=== PATIENT | male | born 1955 | race American Indian/Alaskan Native ===

== ENCOUNTER 2022-03-08 11:47 | Inpatient (IN) | payer MEDICARE ==
[2022-03-08] MEDS ORDERED: SODIUM CHLORIDE 0.9% 1000 ML 1,000 ML IV ONE (12:09)
--- NOTE | 2022-03-08 12:56 | XRay Report ---
CHEST 1 VIEW 03/08/2022 11:22 AM INDICATION / CLINICAL INFORMATION: Altered Mental Status. COMPARISON: None available. FINDINGS: SUPPORT DEVICES: None. HEART / MEDIASTINUM: There is mild to moderate cardiomegaly with left ventricular predominance. LUNGS / PLEURA: No significant pulmonary or pleural abnormality. No pneumothorax. ADDITIONAL FINDINGS: No significant additional findings. IMPRESSION: 1. Cardiomegaly. Lungs clear. Signer Name: Sixto Reveles Jr, MD Signed: 03/08/2022 12:52 PM Workstation Name: [id number]
[2022-03-08] MEDS ORDERED: cefTRIAXone/NS 1 GM/50 ML 1 GM/50 ML BAG IV ONE (13:23)
[2022-03-08 13:25] LABS: Basophils # (Auto) 0.1 K/mm3 (0.0-0.1); Basophils % (Auto) 0.9 % (0.0-1.8); Eosinophils # (Auto) 0.2 K/mm3 (0.0-0.4); Eosinophils % (Auto) 1.9 % (0.0-4.3); Hematocrit 34.5 % (35.5-45.6); Hemoglobin 10.7 gm/dl (11.8-15.2); Lymphocytes # (Auto) 1.1 K/mm3 (1.2-5.4); Mean Corpuscular HGB Conc 31 % (32-34); Mean Corpuscular Volume 82 fl (84-94); Monocytes # (Auto) 1.4 K/mm3 (0.0-0.8); Monocytes % (Auto) 11.2 % (0.0-7.3); Platelet Count 434 K/mm3 (140-440); Red Blood Count 4.23 M/mm3 (3.65-5.03); Red Cell Distribution Width 16.5 % (13.2-15.2)
[2022-03-08 13:35] LABS: Calcium 10.6 mg/dL (8.4-10.2)
[2022-03-08 13:36] LABS: INR 1.09 (0.87-1.13)
--- NOTE | 2022-03-08 13:47 | Cat Scan Report ---
CT HEAD WITHOUT CONTRAST INDICATION / CLINICAL INFORMATION: Altered Mental Status. TECHNIQUE: Axial imaging performed from the skull apex through the skull base without the use of cont rast. Sagittal and coronal reformatted images. All CT scans at this location are performed using CT dose reduction for ALARA by means of automated exposure control. COMPARISON: None available. FINDINGS: CEREBRAL PARENCHYMA: Mild volume loss and moderate chronic microvascular ischemic changes in the whit e matter are identified. No chronic infarct. No acute parenchymal abnormality is detected. HEMORRHAGE: None. EXTRA-AXIAL SPACES: Normal in size and morphology for the patient's age. VENTRICULAR SYSTEM: Normal in size and morphology for the patient's age. MIDLINE SHIFT OR HERNIATION: None. CEREBELLUM / BRAINSTEM: No significant abnormality. CALVARIUM: No significant abnormality. ORBITS: Normal as visualized. PARANASAL SINUSES / MASTOID AIR CELLS: There appears to be a large osteoma in the right maxillary sin us measuring up to 2.3 x 2.1 cm. The remaining sinuses are clear. SOFT TISSUES of HEAD: No significant abnormality. ADDITIONAL FINDINGS: None. IMPRESSION: No acute intracranial abnormality. Volume loss and chronic white matter changes. 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 This is likely an incidental finding. Signer Name: Sixto Reveles Jr, MD Signed: 03/08/2022 1:43 PM Workstation Name: [id number]
[2022-03-08 14:24] LABS: C-Reactive Protein 16.2 mg/dL (0.00-1.30)
[2022-03-08 14:40] LABS: Chol/HDL Ratio 3.88 %
[2022-03-08] MEDS ORDERED: niCARdipine DRIP 40 MG/200 ML BAG IV ONE (15:28)
[2022-03-08] MEDS ORDERED: dilTIAZem 25 MG/5 ML INJ IV ONE (15:28)
[2022-03-08 16:19] LABS: Amphetamine Screen,Urine Negative; Benzodiazepines Screen,Urine Negative; Cocaine Screen,Urine Negative; Methadone Screen,Urine Negative; Opiate Screen,Urine Negative
[2022-03-08 16:32] LABS: Cannabinoid Screen,Urine Positive
[2022-03-08 16:42] LABS: Bilirubin,Urine Negative (Negative); Color,Urine Yellow (Yellow)
[2022-03-08 16:43] LABS: Blood,Urine 1+ (Negative)
[2022-03-08 16:48] LABS: Bacteria,Urine 1+ /HPF (Negative); Hyaline Casts,Urine 2 /LPF; Mucus,Urine 1+ /HPF
--- NOTE | 2022-03-08 18:03 | Emergency Department Report ---
ED General Adult HPI - General Chief complaint: Altered Mental Status Stated complaint: ALTERED MENTAL STATUS PUI?: No Time Seen by Provider: 03/08/22 12:09 Source: EMS Mode of arrival: Stretcher Limitations: No Limitations - History of Present Illness Initial comments: AMS [id number] per caregiver. family reports incontinence of bowels, GCS 12. HR 150 , ps is coming from home with his caregiver , pt had fever and incontinence , no recent head injury , -: Gradual Consistency: intermittent Improves with: none Associated Symptoms: fever/chills - Related Data Previous Rx's Medication Instructions Recorded Last Taken Type Ibuprofen [Motrin] 400 mg PO Q8H PRN #30 tablet 08/28/15 Unknown Rx Oxycodone HCl/Acetaminophen 1 each PO Q6HR PRN #20 tablet 08/28/15 Unknown Rx [Percocet 10/325 mg] Promethazine [Phenergan TAB] 25 mg PO Q6HR PRN #20 tab 08/28/15 Unknown Rx Tamsulosin [Flomax] 0.4 mg PO QDAY #7 cap 08/28/15 Unknown Rx amLODIPine [Norvasc] 10 mg PO DAILY #30 tab 08/28/15 Unknown Rx Allergies Allergy/AdvReac Type Severity Reaction Status Date / Time No Known Allergies Allergy Verified 08/27/15 22:29 ED Review of Systems ROS: Stated complaint: ALTERED MENTAL STATUS Other details as noted in HPI Comment: Unobtainable due to pts medical conditions ED Past Medical Hx - Past Medical History Hx Hypertension: Yes - Social History Smoking Status: Current Every Day Smoker Substance Use Type: None - Medications Home Medications: Home Medications Medication Instructions Recorded Confirmed Last Taken Type Ibuprofen [Motrin] 400 mg PO Q8H PRN #30 tablet 08/28/15 Unknown Rx Oxycodone HCl/Acetaminophen 1 each PO Q6HR PRN #20 tablet 08/28/15 Unknown Rx [Percocet 10/325 mg] Promethazine [Phenergan TAB] 25 mg PO Q6HR PRN #20 tab 08/28/15 Unknown Rx Tamsulosin [Flomax] 0.4 mg PO QDAY #7 cap 08/28/15 Unknown Rx amLODIPine [Norvasc] 10 mg PO DAILY #30 tab 08/28/15 Unknown Rx ED Physical Exam - General Limitations: No Limitations General appearance: alert, other (weak , confused ) - Head Head exam: Present: atraumatic, normocephalic - Eye Eye exam: Present: normal appearance - ENT ENT exam: Present: mucous membranes moist - Neck Neck exam: Present: normal inspection - Respiratory Respiratory exam: Present: rales. Absent: respiratory distress - Cardiovascular Cardiovascular Exam: Present: tachycardia, irregular rhythm. Absent: systolic murmur, diastolic murmur, rubs, gallop - GI/Abdominal GI/Abdominal exam: Present: soft, normal bowel sounds - Rectal Rectal exam: Present: deferred - Extremities Exam Extremities exam: Present: normal inspection - Back Exam Back exam: Present: normal inspection - Skin Skin exam: Present: intact, normal color. Absent: rash ED Course Vital Signs 03/08/22 03/08/22 03/08/22 12:02 13:49 14:00 Temperature 99.4 F Pulse Rate 150 H 118 H 127 H Respiratory 30 H 15 28 H Rate Blood Pressure Blood Pressure 140/70 [Left] O2 Sat by Pulse 97 98 97 Oximetry 03/08/22 03/08/22 03/08/22 14:30 15:00 15:30 Temperature Pulse Rate 138 H 130 H 127 H Respiratory 16 23 48 H Rate Blood Pressure Blood Pressure [Left] O2 Sat by Pulse 95 97 98 Oximetry 03/08/22 03/08/22 03/08/22 15:44 16:00 16:16 Temperature Pulse Rate 129 H 150 H Respiratory 42 H Rate Blood Pressure 170/98 Blood Pressure [Left] O2 Sat by Pulse 98 Oximetry 03/08/22 03/08/22 03/08/22 16:30 17:00 17:30 Temperature Pulse Rate 138 H 135 H 140 H Respiratory 28 H 19 21 Rate Blood Pressure 147/78 135/75 126/64 Blood Pressure [Left] O2 Sat by Pulse Oximetry ED Medical Decision Making - Lab Data Result diagrams: 03/08/22 12:29 03/08/22 12:29 Critical care attestation.: If time is entered above; I have spent that time in minutes in the direct care of this critically ill patient, excluding procedure time. ED Disposition Clinical Impression: Altered mental status, CKD (chronic kidney disease), Atrial fibrillation with RVR, Weakness, Elevated troponin Disposition: 09 ADMITTED INPATIENT Is pt being admited?: Yes Does the pt Need Aspirin: No Condition: Stable Referrals: KING POLLACK MD [Primary Care Provider] - 3-5 Days
--- NOTE | 2022-03-08 18:11 | History and Physical Report ---
History of Present Illness Chief complaint: He is not acting like himself History of present illness: 67 YO Male with Vascular Dementia, Cerebral Atherosclerosis, BPH, HTN, Nicotine Dependence presents to ED for evaluation. Patient is confused and lethargic at the time my evaluation is unable to provide history. Patient history provided by caregiver was at bedside during exam and interview. As per caregiver the p atient experienced increased weakness and decreased responsiveness over the past 1 week. EMS was notified and upon arrival the patient was found to be in distress and subsequent transported to [facility] for further care and evaluation of the aforementioned symptoms. The patient seen and evaluated in the emergency department all lab and imaging studies reviewed. Patient found to have lab findings consistent with NSTEMI, as well as metabolic encephalopathy, acute kidney injury, new onset atrial fibrillation with rapid ventricular response, as well as systemic inflammatory response syndrome. Patient mated to [facility] and initiated on therapeutic anticoagulation. Patient treated with empiric IV antib iotic therapy. Patient initiated on Cardizem drip with controlled heart rate. No further history is obtainable. No reports of fever, chills, chest pain, palpitation or productive cough, skin rash, recent contact, known exposure to COVID-19. No prior admission for review. No medication listed at time of admission for reconciliation. Advanced care planning conducted in ED. Past History Past Medical History: hypertension, other (See HPI) Social history: smoking Family history: hypertension Medications and Allergies Allergies Allergy/AdvReac Type Severity Reaction Status Date / Time No Known Allergies Allergy Verified 08/27/15 22:29 Home Medications Medication Instructions Recorded Confirmed Last Taken Type Ibuprofen [Motrin] 400 mg PO Q8H PRN #30 tablet 08/28/15 Unknown Rx Oxycodone HCl/Acetaminophen 1 each PO Q6HR PRN #20 tablet 08/28/15 Unknown Rx [Percocet 10/325 mg] Promethazine [Phenergan TAB] 25 mg PO Q6HR PRN #20 tab 08/28/15 Unknown Rx Tamsulosin [Flomax] 0.4 mg PO QDAY #7 cap 08/28/15 Unknown Rx amLODIPine [Norvasc] 10 mg PO DAILY #30 tab 08/28/15 Unknown Rx Active Meds: Active Medications Nicardipine/Sodium Chloride (Cardene Drip 40 Mg/200 Ml) 40 mg in 200 mls @ 25 mls/hr IV ONCE ONE; Protocol Stop: 03/08/22 23:27 Last Titration: 03/08/22 16:12 Dose: 7.5 mg/hr, 37.5 mls/hr Review of Systems ROS unobtainable: due to mental status Exam - Constitutional Vitals: Temp Pulse Resp BP Pulse Ox 99.4 F 140 H 21 126/64 98 03/08/22 12:02 03/08/22 17:30 03/08/22 17:30 03/08/22 17:30 03/08/22 16:16 General appearance: Present: mild distress - EENT Eyes: Present: PERRL ENT: hearing intact, clear oral mucosa - Neck Neck: Present: supple, normal ROM - Respiratory Respiratory effort: normal Respiratory: bilateral: CTA - Cardiovascular Rhythm: irregularly irregular Heart Sounds: Present: S1 & S2. Absent: rub, click - Extremities Extremities: pulses symmetrical, No edema Peripheral Pulses: within normal limits - Abdominal General gastrointestinal: Present: soft, non-tender, non-distended, normal bowel sounds Male genitourinary: Present: normal - Integumentary Integumentary: Present: clear, warm, dry - Musculoskeletal Musculoskeletal: generalized weakness - Psychiatric Psychiatric: no appropriate mood/affect, no intact judgment & insight, no memory intact - Neurologic Neurologic: CNII-XII intact, moves all extremities, no gait normal HEART Score - HEART Score Troponin: Troponin T 0.149 ng/mL (0.00-0.029) H* 03/08/22 12:29 Results - Labs CBC & Chem 7: 03/08/22 12:29 03/08/22 12:29 Labs: Abnormal lab results 03/08/22 03/08/22 03/08/22 Range/Units 12:29 12:29 12:29 WBC 12.8 H (4.5-11.0) K/mm3 Hgb 10.7 L (11.8-15.2) gm/dl Hct 34.5 L (35.5-45.6) % MCV 82 L (84-94) fl MCH 25 L (28-32) pg MCHC 31 L (32-34) % RDW 16.5 H (13.2-15.2) % Lymph % (Auto) 9.0 L (13.4-35.0) % [place] % (Auto) 11.2 H (0.0-7.3) % Lymph # (Auto) 1.1 L (1.2-5.4) K/mm3 [place] # (Auto) 1.4 H (0.0-0.8) K/mm3 Seg Neutrophils % 77.0 H (40.0-70.0) % Seg Neutrophils # 9.8 H (1.8-7.7) K/mm3 PT 15.7 H (12.2-14.9) Sec. BUN 37 H (9-20) mg/dL Creatinine 1.9 H (0.8-1.3) mg/dL Glucose 108 H (75-100) mg/dL Calcium 10.6 H (8.4-10.2) mg/dL Ammonia (25-60) umol/L Total Creatine Kinase 53 L (55-170) units/L Troponin T 0.149 H* (0.00-0.029) ng/mL C-Reactive Protein 16.20 H (0.00-1.30) mg/dL Albumin 3.0 L (3.9-5) g/dL HDL Cholesterol 35 L (40-59) mg/dL Salicylates (2.8-20.0) mg/dL Acetaminophen (10.0-30.0) ug/mL 03/08/22 03/08/22 03/08/22 Range/Units 12:29 12:29 12:29 WBC (4.5-11.0) K/mm3 Hgb (11.8-15.2) gm/dl Hct (35.5-45.6) % MCV (84-94) fl MCH (28-32) pg MCHC (32-34) % RDW (13.2-15.2) % Lymph % (Auto) (13.4-35.0) % [place] % (Auto) (0.0-7.3) % Lymph # (Auto) (1.2-5.4) K/mm3 [place] # (Auto) (0.0-0.8) K/mm3 Seg Neutrophils % (40.0-70.0) % Seg Neutrophils # (1.8-7.7) K/mm3 PT (12.2-14.9) Sec. BUN (9-20) mg/dL Creatinine (0.8-1.3) mg/dL Glucose (75-100) mg/dL Calcium (8.4-10.2) mg/dL Ammonia 14.0 L (25-60) umol/L Total Creatine Kinase (55-170) units/L Troponin T (0.00-0.029) ng/mL C-Reactive Protein (0.00-1.30) mg/dL Albumin (3.9-5) g/dL HDL Cholesterol (40-59) mg/dL Salicylates < 0.3 L (2.8-20.0) mg/dL Acetaminophen 5.0 L (10.0-30.0) ug/mL Assessment and Plan - Patient Problems (1) NSTEMI (non-ST elevated myocardial infarction) Current Visit: Yes Status: Acute Plan to address problem: Cardiology team consulted, therapeutic anticoagulation, morphine, submental oxygen, nitro, aspirin, echocardiogram ordered and pending at time of admission. (2) Atrial fibrillation with RVR Current Visit: Yes Status: Acute Plan to address problem: Cardizem drip, titrate to maintain heart rate less than 100 bpm, supportive care, therapeutic anticoagulation, supportive care, cardiology team consulted. (3) Acute kidney injury (MARIE) with acute tubular necrosis (ATN) Current Visit: Yes Status: Acute Plan to address problem: Nephrology team consulted, IV fluid resuscitation therapy, BMP, repeat BMP in a.m., monitor fluid balance. (4) SIRS (systemic inflammatory response syndrome) Current Visit: Yes Status: Acute Plan to address problem: Empiric IV antibiotic therapy x1 dose, repeat CBC in AM. (5) Vascular dementia Current Visit: Yes Status: Acute Qualifiers: Dementia behavioral disturbance: without behavioral disturbance Qualified Code(s): F01.50 - Vascular dementia without behavioral disturbance Plan to address problem: Verbal prompting, verbal redirection, benzodiazepine therapy as clinical indicated. (6) Cerebral atherosclerosis Current Visit: Yes Status: Acute Plan to address problem: Risk factor reduction, antiplatelet therapy as clinically indicated. (7) DVT prophylaxis Current Visit: Yes Status: Acute Plan to address problem: SCDs bilateral lower extremities while in bed, (8) Advance care planning Current Visit: Yes Status: Acute Plan to address problem: Disease education done, care plan discussed, diagnosis discussed, prognosis discussed, patient is full code. Patient caregiver acknowledged understanding and agreed with care plan, +30 minutes. (9) Preventative health care Current Visit: Yes Status: Acute Plan to address problem: Patient and caregiver informed of patient prognosis. Informed of risk factor reduction, and home safety measures. +30 minutes.
[2022-03-08] MEDS ORDERED: METOPROLOL TARTRATE 5 MG/5 ML INJ IV ONE (18:34)
[2022-03-08] MEDS ORDERED: ALBUTEROL 2.5 MG/3 ML NEBU IH PRN (20:07)
[2022-03-08] MEDS ORDERED: ACETAMINOPHEN 325 MG TAB PO PRN (20:11)
[2022-03-08] MEDS ORDERED: ENOXAPARIN 100 MG/1 ML INJ SUB-Q SCH (21:00)
[2022-03-09 02:55] LABS: Hemoglobin 10.4 gm/dl (11.8-15.2); Mean Corpuscular HGB Conc 34 % (32-34); Mean Corpuscular Volume 80 fl (84-94); Platelet Count 383 K/mm3 (140-440); Red Blood Count 3.85 M/mm3 (3.65-5.03); Red Cell Distribution Width 16.7 % (13.2-15.2)
[2022-03-09 02:58] LABS: Albumin 2.5 g/dL (3.9-5); Calcium 9.9 mg/dL (8.4-10.2)
[2022-03-09] MEDS: ENOXAPARIN 80 MG/0.8 ML INJ SUB-Q SCH ×3 (04:20→21:06)
[2022-03-09] MEDS: METOPROLOL TARTRATE 5 MG/5 ML INJ IV SCH ×3 (04:20→11:39)
[2022-03-09 05:09] LABS: Basophils % (Manual) 0 % (0.0-1.8); Platelet Estimate Consistent w Auto; RBC Morphology Normal; Total Cells Counted 100
--- NOTE | 2022-03-09 07:02 | Consultation ---
History of Present Illness - Reason for Consult Consult date: 03/09/22 acute renal failure, chronic renal failure - History of Present Illness The patient is a 67 YO male with history of HTN, BPH, Dementia, Cerebral Atherosclerosis, Nicotine Dependence and CKD who presented to [facility] ED 03/08/22 wi th increased weakness and decreased responsiveness of 1 week duration. Patient is confused at the time my evaluation is unable to provide history and there was no family member at the bedside. In the ED he was found to have Atrial fibrillation with rapid ventricular response. Labs notable for Creat 1.9, BUN 37, Hb 10.7, Trop 0.149. CXR showed Cardiomegaly. CT head negative for any acute findings. Patient admitted with NSTEMI, metabolic encephalopathy, MARIE, SIRS and A.fib with RVR. Nephrology consulted for further evaluation and treatment of MARIE. Past History Past Medical History: hypertension, other (See HPI) Social history: smoking Family history: hypertension Medications and Allergies Allergies Allergy/AdvReac Type Severity Reaction Status Date / Time No Known Allergies Allergy Verified 08/27/15 22:29 Home Medications Medication Instructions Recorded Confirmed Last Taken Type Ibuprofen [Motrin] 400 mg PO Q8H PRN #30 tablet 08/28/15 Unknown Rx Oxycodone HCl/Acetaminophen 1 each PO Q6HR PRN #20 tablet 08/28/15 Unknown Rx [Percocet 10/325 mg] Promethazine [Phenergan TAB] 25 mg PO Q6HR PRN #20 tab 08/28/15 Unknown Rx Tamsulosin [Flomax] 0.4 mg PO QDAY #7 cap 08/28/15 Unknown Rx amLODIPine [Norvasc] 10 mg PO DAILY #30 tab 08/28/15 Unknown Rx Active Meds: Active Medications Acetaminophen (Acetaminophen 325 Mg Tab) 650 mg PO Q6H PRN PRN Reason: Pain MILD(1-3)/Fever >100.5/[place] Albuterol (Albuterol 2.5 Mg/3 Ml Nebu) 2.5 mg IH Q3HRT PRN PRN Reason: Shortness Of Breath Enoxaparin Sodium (Enoxaparin 80 Mg/0.8 Ml Inj) 80 mg 1 mg/kg (90 mg) SUB-Q Q1 2HR FRANCESCA; Protocol Last Admin: 03/09/22 04:20 Dose: 80 mg Metoprolol Tartrate (Metoprolol Tartrate 5 Mg/5 Ml Inj) 2.5 mg IV Q6HR [facility] Last Admin: 03/09/22 07:00 Dose: Not Given Morphine Sulfate (Morphine 4 Mg/1 Ml Inj) 2 mg IV Q8H PRN PRN Reason: Pain , Severe (7-10) Oxycodone/Acetaminophen (Oxycodone /Acetaminophen 5-325mg Tab) 1 tab PO Q6H PRN PRN Reason: Pain, Moderate (4-6) Sodium Chloride (Sodium Chloride 0.9% 10 Ml Flush Syringe) 10 ml IV BID [facility] Last Admin: 03/09/22 04:20 Dose: 10 ml Sodium Chloride (Sodium Chloride 0.9% 10 Ml Flush Syringe) 10 ml IV PRN PRN PRN Reason: LINE FLUSH Tramadol HCl (Tramadol 50 Mg Tab) 50 mg PO Q6H PRN PRN Reason: Pain, Moderate (4-6) Review of Systems ROS unobtainable: due to mental status Exam - Vital Signs Vital signs: Vital Signs Temp Pulse Resp BP Pulse Ox 99.4 F 150 H 30 H 140/70 97 03/08/22 12:02 03/08/22 12:02 03/08/22 12:02 03/08/22 12:02 03/08/22 12:02 Results - Lab Results 03/10/22 04:31 03/10/22 04:31 Most recent lab results Calcium 9.9 mg/dL (8.4-10.2) 03/09/22 02:13 Urine Creatinine 175.0 mg/dL (0.1-20.0) H 03/09/22 05:40 Urine Sodium 48 mmol/L 03/09/22 05:40 Assessment and Plan 1. Acute kidney injury: Vasomotor MARIE superimposed on CKD in the setting of A.Fib with RVR. Urine studies. Monitor renal function. Creatinine level is better today. Avoid nephrotoxic agents. Meds dosage based on GFR. 2. FEN: Replete lytes as needed. Monitor lytes and volume status. 3. A.fib with RVR: New diagnosis. Followed by Cards. Monitor. 4. Acute metabolic encephalopathy, POA: Monitor. 5. NSTEMI (non-ST elevated myocardial infarction): EF: 25-30%. Followed by Cards. 6. Microcytic Anemia, POA: Trend. Subjective: Patient was seen and examined at the bedside. Examination: General appearance: well-developed, appears stated age, no distress HEENT: atraumatic, no icterus Neck: trachea midline Respiratory: ctab Heart: S1S2, irregular, tachycardia, no murmur Abdomen: soft, bowel sounds heard, NT Integumentary: no obvious rash Neurologic: somnolent, able to move extremities, confused Ext: no edema
[2022-03-09] MEDS: FAMOTIDINE 20 MG/2 ML INJ IV SCH (10:47)
--- NOTE | 2022-03-09 12:13 | Consultation ---
History of Present Illness Consult date: 03/09/22 Requesting physician: ASA JAIMES Consult reason: atrial fibrillation History of present illness: Patient is a 67-year-old male with a reported past medical history of vascular dementia, cerebral atherosclerosis, BPH, hypertension, nicotine dependence who presented to the ED yesterday for complaint of AMS x2. History is taken from chart due to patient's mental status. Per documentation for the past 2 weeks patient has increased weakness and decreased responsiveness. EMS was notified and patient was transported to the ED for further evaluation. In the ED patient was found to be have an MARIE, elevated troponins, and leukocytosis. Patient was thought to be in A. fib with RVR and given Cardizem drip with heart rate controlled. At time of interview patient remains with altered mental status how ever denies any complaints.Patient is previously unknown to our practice. Cardiology was consulted for A. fib with RVR Past History Past Medical History: hypertension, other (See HPI) Social history: smoking Family history: hypertension Medications and Allergies Allergies Allergy/AdvReac Type Severity Reaction Status Date / Time No Known Allergies Allergy Verified 08/27/15 22:29 Home Medications Medication Instructions Recorded Confirmed Last Taken Type Ibuprofen [Motrin] 400 mg PO Q8H PRN #30 tablet 08/28/15 Unknown Rx Oxycodone HCl/Acetaminophen 1 each PO Q6HR PRN #20 tablet 08/28/15 Unknown Rx [Percocet 10/325 mg] Promethazine [Phenergan TAB] 25 mg PO Q6HR PRN #20 tab 08/28/15 Unknown Rx Tamsulosin [Flomax] 0.4 mg PO QDAY #7 cap 08/28/15 Unknown Rx amLODIPine [Norvasc] 10 mg PO DAILY #30 tab 08/28/15 Unknown Rx Active Meds: Active Medications Acetaminophen (Acetaminophen 325 Mg Tab) 650 mg PO Q6H PRN PRN Reason: Pain MILD(1-3)/Fever >100.5/[place] Albuterol (Albuterol 2.5 Mg/3 Ml Nebu) 2.5 mg IH Q3HRT PRN PRN Reason: Shortness Of Breath Enoxaparin Sodium (Enoxaparin 80 Mg/0.8 Ml Inj) 80 mg 1 mg/kg (90 mg) SUB-Q Q12HR FRANCESCA; Protocol Last Admin: 03/09/22 10:47 Dose: 80 mg Famotidine (Famotidine 20 Mg/2 Ml Inj) 20 mg IV QDAY [facility] Last Admin: 03/09/22 10:47 Dose: 20 mg Metoprolol Tartrate (Metoprolol Tartrate 5 Mg/5 Ml Inj) 2.5 mg IV Q6HR [facility] Last Admin: 03/09/22 11:39 Dose: 2.5 mg Morphine Sulfate (Morphine 4 Mg/1 Ml Inj) 2 mg IV Q8H PRN PRN Reason: Pain , Severe (7-10) Oxycodone/Acetaminophen (Oxycodone /Acetaminophen 5-325mg Tab) 1 tab PO Q6H PRN PRN Reason: Pain, Moderate (4-6) Sodium Chloride (Sodium Chloride 0.9% 10 Ml Flush Syringe) 10 ml IV BID [facility] Last Admin: 03/09/22 10:47 Dose: 10 ml Sodium Chloride (Sodium Chloride 0.9% 10 Ml Flush Syringe) 10 ml IV PRN PRN PRN Reason: LINE FLUSH Tramadol HCl (Tramadol 50 Mg Tab) 50 mg PO Q6H PRN PRN Reason: Pain, Moderate (4-6) Review of Systems ROS unobtainable: due to mental status Physical Examination Vital Signs Temp Pulse Resp BP Pulse Ox 99.4 F 150 H 30 H 140/70 97 03/08/22 12:02 03/08/22 12:02 03/08/22 12:02 03/08/22 12:02 03/08/22 12:02 General appearance: no acute distress HEENT: Positive: Mucus Membranes Dry Neck: Positive: trachea midline Cardiac: Positive: irregularly irregular, Tachycardia Lungs: Positive: Normal Breath Sounds Neuro: Positive: Grossly Intact Abdomen: Positive: Soft Skin: Negative: Rash, Suspicious Lesions Extremities: Present: upper extr. pulses. Absent: edema Results 03/09/22 02:13 03/09/22 02:13 Cardiac Enzymes 03/08/22 03/09/22 Range/Units 12:29 02:13 AST 26 25 (5-40) units/L Coagulation 03/08/22 Range/Units 12:29 PT 15.7 H (12.2-14.9) Sec. INR 1.09 (0.87-1.13) Lipids 03/08/22 Range/Units 12:29 Triglycerides 105 (2-149) mg/dL Cholesterol 136 (50-199) mg/dL HDL Cholesterol 35 L (40-59) mg/dL Cholesterol/HDL Ratio 3.88 % CBC 03/08/22 03/09/22 Range/Units 12:29 02:13 WBC 12.8 H 10.6 (4.5-11.0) K/mm3 RBC 4.23 3.85 (3.65-5.03) M/mm3 Hgb 10.7 L 10.4 L (11.8-15.2) gm/dl Hct 34.5 L 31.0 L (35.5-45.6) % Plt Count 434 383 (140-440) K/mm3 Lymph # (Auto) 1.1 L (1.2-5.4) K/mm3 Tom[place]kins # (Auto) 1.4 H (0.0-0.8) K/mm3 Eos # (Auto) 0.2 (0.0-0.4) K/mm3 Baso # (Auto) 0.1 (0.0-0.1) K/mm3 Comprehensive Metabolic Panel 03/08/22 03/09/22 Range/Units 12:29 02:13 Sodium 142 139 (137-145) mmol/L Potassium 4.4 4.3 (3.6-5.0) mmol/L Chloride 106.1 103.9 (98-107) mmol/L Carbon Dioxide 22 21 L (22-30) mmol/L BUN 37 H 33 H (9-20) mg/dL Creatinine 1.9 H 1.6 H (0.8-1.3) mg/dL Glucose 108 H 89 (75-100) mg/dL Calcium 10.6 H 9.9 (8.4-10.2) mg/dL AST 26 25 (5-40) units/L ALT 11 11 (7-56) units/L Alkaline Phosphatase 91 83 (35-129) units/L Total Protein 7.3 7.0 (6.3-8.2) g/dL Albumin 3.0 L 2.5 L (3.9-5) g/dL - Imaging and Cardiology Echo: pending EKG interpretations - Telemetry EKG Rhythm: Sinus Tachycardia - EKG Supraventricular dysrhythmia: multifocal atrial tachyca Ventricular dysrhythmias: ventricular premature com Assessment and Plan Patient is a 67-year-old male with a reported past medical history of vascular dementia, cerebral atherosclerosis, BPH, hypertension, nicotine dependence who presented to the ED yesterday for complaint of AMS x2. Altered mental status NSTEMI suspect type II MARIE Leukocytosis A. fib?/MAT Hypertension Vascular dementia Plan: EKG shows MAT rate 127 with PVCs. No acute ischemic changes. Patient denies complaint of chest pain and does not appear to be in any distress or discomfort Troponin is noted to be elevated and downtrending. Suspect NSTEMI type II in setting of MARIE Telemetry reviewed patient does not appear to be in A. fib. suspect patient is in MAT however, it is unclear if patient may have had previous episode of A. fib. Continue to monitor on telemetry to see if patient has any episodes of A. fib Agree with anticoagulation with Lovenox at this time Echo pending Will stop IV meotprolol and initiate Metoprolol 25mg PO BID for rate control Patient seen in conjunction with Dr. Norton who agrees with this plan of care - Patient Problems (1) Multifocal atrial tachycardia Current Visit: Yes Status: Acute (2) Acute kidney injury (MARIE) with acute tubular necrosis (ATN) Current Visit: Yes Status: Acute (3) Altered mental status Current Visit: Yes Status: Acute (4) Atrial fibrillation with RVR Current Visit: Yes Status: Acute (5) CKD (chronic kidney disease) Current Visit: Yes Status: Acute (6) Cerebral atherosclerosis Current Visit: Yes Status: Acute (7) Elevated troponin Current Visit: Yes Status: Acute (8) NSTEMI (non-ST elevated myocardial infarction) Current Visit: Yes Status: Acute (9) SIRS (systemic inflammatory response syndrome) Current Visit: Yes Status: Acute (10) Vascular dementia Current Visit: Yes Status: Acute Qualifiers: Dementia behavioral disturbance: without behavioral disturbance Qualified Code(s): F01.50 - Vascular dementia without behavioral disturbance (11) Weakness Current Visit: Yes Status: Acute
--- NOTE | 2022-03-09 12:15 | Progress Note ---
<ANTONIO PENNY - Last Filed: 03/09/22 19:39> Assessment and Plan Assessment and plan: This is a 67-year-old male with known past medical history of vascular dementia, cerebral atherosclerosis, BPH, HTN, nicotine dependence, severe arthritis, and debility admitted for NSTEMI, AFib with RVR, and MARIE Hospital Course to Date: 03/09: Stable on RA, denied ay pain nor any discomfort at this time. SR with PACs noted on the monitor, VSS. Renal function mild improvement in renal function this am. Continue schedule BB for rate control and therapeutic Lovenox subQ. 2D echo pending and Cardiology consulted. Nephrology is also following. Assessment and Plan #NSTEMI (non-ST elevated myocardial infarction) #New Onset Atrial Fibrillation with RVR #Hypertension - Presented with AMS, found in AFib with RVR in the ED with elevated troponin - No report of previous Afib history, most likely new onset - Troponin downtrending - Per patient's brother patient sees a PCP in [place], however patient has been refusing to go to the doctor - s/p Chey gtt - Patient is SR with PACs on the monitor. Patient denied any chest pain, VSS - Cardiology consulted - Continue BB and therapeutic Lovenox - 2D Echo pending - Continue blood pressure monitor per protocol - Maintain SBP less than 160 #Acute kidney injury(MARIE) - Baseline renal function is unknown, most likely prerenal secondary to above - Renal function improved this am - Urine lytes pending - Neprology consulted, appreciated recommendations - Strict intake and output - Avoid nephrotoxic medications; Renally dose medications - Monitor and replace electrolytes as needed #SIRS (Systemic Inflammatory Response Syndrome) - Presented with leukocytosis and tachycardia, but afebrile - X1 dose of Empiric IV antibiotic given in the ED - UA unremakarble, Blood cultures with NGTD - Patient remains afebrile, leukocytosis improved - Will continue to monitor for now - F/u on cultures #Acute Metabolic Encephalopathy #Vascular Dementia - Presented with increased weakness and decreased responsiveness over the past 1 week - Probably secondary to above - Mentation improved this am, still with periods of confusion - Verbal prompting, verbal redirection - Avoid benzodiazepine to reduce the possibility of delirium - Maintenance of sleep-wake cycle #Severe Arthritis #Debility - Supportive measures - PRN analgesia for pain control - PT/OT consulted #Nicotine Dependence - smoking cessation education provided. Patient verbalized understanding and agreed with the info provided - Denied any urgers at this time, Nicotine patch if needed #GI/DVT Prophylaxis - PPI- Pepcid - Lovenox SubQ - SCDs bilateral lower extremities while in bed, #Advance Care Planning - Disease education data, care plan, diagnoses, and prognosis were discussed with patient and patient's brother at the bedside. Patient is a FULL code. They acknowledged understanding and agreed with current care plan. The high probability of a clinically significant, sudden or life threatening deterioration of the [multiple] system(s) required my full and direct attention, intervention and personal management. The aggregate critical care time was [60] minutes. This time is in addition to time spent performing reported procedures but includes the following: [x] Data Review and interpretation [x] Patient assessment and monitoring of vital signs [x] Documentation [x] Medication orders and management Disposition Plan: IMCU Total Time Spent with Patient (Minutes): 60 History Interval history: Patient seen and examined at the bedside. Awake and alert, following commands, but still with periods confusion. Stable on RA, denied any pain nor any discomfort at this time. SR with PACs noted on the monitor, VSS. GHAZAL overnight. Hospitalist Physical - Constitutional Vitals: Temp Pulse Resp BP Pulse Ox 98.8 F 113 H 25 H 167/89 100 03/08/22 19:42 03/09/22 11:39 03/09/22 11:30 03/09/22 11:39 03/09/22 11:30 General appearance: Present: no acute distress, well-nourished, obese - EENT Eyes: Present: PERRL ENT: hearing intact - Neck Neck: Present: normal ROM - Respiratory Respiratory effort: normal Respiratory: bilateral: diminished - Cardiovascular Rhythm: regularly irregular Heart Sounds: Present: S1 & S2 HEART Score - HEART Score Troponin: Troponin T 0.119 ng/mL (0.00-0.029) H* D 03/09/22 02:13 Results - Labs CBC & Chem 7: 03/09/22 02:13 03/09/22 02:13 Labs: Laboratory Last Values WBC 10.6 K/mm3 (4.5-11.0) 03/09/22 02:13 RBC 3.85 M/mm3 (3.65-5.03) 03/09/22 02:13 Hgb 10.4 gm/dl (11.8-15.2) L 03/09/22 02:13 Hct 31.0 % (35.5-45.6) L 03/09/22 02:13 MCV 80 fl (84-94) L 03/09/22 02:13 MCH 27 pg (28-32) L 03/09/22 02:13 MCHC 34 % (32-34) 03/09/22 02:13 RDW 16.7 % (13.2-15.2) H 03/09/22 02:13 Plt Count 383 K/mm3 (140-440) 03/09/22 02:13 Lymph % (Auto) 9.0 % (13.4-35.0) L 03/08/22 12:29 [place] % (Auto) 11.2 % (0.0-7.3) H 03/08/22 12:29 Eos % (Auto) 1.9 % (0.0-4.3) 03/08/22 12:29 Baso % (Auto) 0.9 % (0.0-1.8) 03/08/22 12:29 Lymph # (Auto) 1.1 K/mm3 (1.2-5.4) L 03/08/22 12:29 [place] # (Auto) 1.4 K/mm3 (0.0-0.8) H 03/08/22 12:29 Eos # (Auto) 0.2 K/mm3 (0.0-0.4) 03/08/22 12:29 Baso # (Auto) 0.1 K/mm3 (0.0-0.1) 03/08/22 12:29 Add Manual Diff Complete 03/09/22 02:13 Total Counted 100 03/09/22 02:13 Seg Neutrophils % 77.0 % (40.0-70.0) H 03/08/22 12:29 Seg Neuts % (Manual) 80.0 % (40.0-70.0) H 03/09/22 02:13 Band Neutrophils % 0 % 03/09/22 02:13 Lymphocytes % (Manual) 11.0 % (13.4-35.0) L 03/09/22 02:13 Reactive Lymphs % (Man) 0 % 03/09/22 02:13 Monocytes % (Manual) 8.0 % (0.0-7.3) H 03/09/22 02:13 Eosinophils % (Manual) 1.0 % (0.0-4.3) 03/09/22 02:13 Basophils % (Manual) 0 % (0.0-1.8) 03/09/22 02:13 Metamyelocytes % 0 % 03/09/22 02:13 Myelocytes % 0 % 03/09/22 02:13 Promyelocytes % 0 % 03/09/22 02:13 Blast Cells % 0 % 03/09/22 02:13 Nucleated RBC % Not Reportable 03/09/22 02:13 Seg Neutrophils # 9.8 K/mm3 (1.8-7.7) H 03/08/22 12:29 Seg Neutrophils # Man 8.5 K/mm3 (1.8-7.7) H 03/09/22 02:13 Band Neutrophils # 0.0 K/mm3 03/09/22 02:13 Lymphocytes # (Manual) 1.2 K/mm3 (1.2-5.4) 03/09/22 02:13 Abs React Lymphs (Man) 0.0 K/mm3 03/09/22 02:13 Monocytes # (Manual) 0.8 K/mm3 (0.0-0.8) 03/09/22 02:13 Eosinophils # (Manual) 0.1 K/mm3 (0.0-0.4) 03/09/22 02:13 Basophils # (Manual) 0.0 K/mm3 (0.0-0.1) 03/09/22 02:13 Metamyelocytes # 0.0 K/mm3 03/09/22 02:13 Myelocytes # 0.0 K/mm3 03/09/22 02:13 Promyelocytes # 0.0 K/mm3 03/09/22 02:13 Blast Cells # 0.0 K/mm3 03/09/22 02:13 WBC Morphology Not Reportable 03/09/22 02:13 Hypersegmented Neuts Not Reportable 03/09/22 02:13 Hyposegmented Neuts Not Reportable 03/09/22 02:13 Hypogranular Neuts Not Reportable 03/09/22 02:13 Smudge Cells Not Reportable 03/09/22 02:13 Toxic Granulation Not Reportable 03/09/22 02:13 Toxic Vacuolation Not Reportable 03/09/22 02:13 Dohle Bodies Not Reportable 03/09/22 02:13 Pelger-Huet Anomaly Not Reportable 03/09/22 02:13 Marylin Rods Not Reportable 03/09/22 02:13 Platelet Estimate Consistent w auto 03/09/22 02:13 Clumped Platelets Not Reportable 03/09/22 02:13 Plt Clumps, EDTA Not Reportable 03/09/22 02:13 Large Platelets Not Reportable 03/09/22 02:13 Giant Platelets Not Reportable 03/09/22 02:13 Platelet Satelliting Not Reportable 03/09/22 02:13 Plt Morphology Comment Not Reportable 03/09/22 02:13 RBC Morphology Normal 03/09/22 02:13 Dimorphic RBCs Not Reportable 03/09/22 02:13 Polychromasia Not Reportable 03/09/22 02:13 Hypochromasia Not Reportable 03/09/22 02:13 Poikilocytosis Not Reportable 03/09/22 02:13 Anisocytosis Not Reportable 03/09/22 02:13 Microcytosis Not Reportable 03/09/22 02:13 Macrocytosis Not Reportable 03/09/22 02:13 Spherocytes Not Reportable 03/09/22 02:13 Pappenheimer Bodies Not Reportable 03/09/22 02:13 Sickle Cells Not Reportable 03/09/22 02:13 Target Cells Not Reportable 03/09/22 02:13 Tear Drop Cells Not Reportable 03/09/22 02:13 Ovalocytes Not Reportable 03/09/22 02:13 Helmet Cells Not Reportable 03/09/22 02:13 [place] Bodies Not Reportable 03/09/22 02:13 Excello Rings Not Reportable 03/09/22 02:13 [place] Cells Not Reportable 03/09/22 02:13 Bite Cells Not Reportable 03/09/22 02:13 Crenated Cell Not Reportable 03/09/22 02:13 Elliptocytes Not Reportable 03/09/22 02:13 Acanthocytes (Spur) Not Reportable 03/09/22 02:13 Rouleaux Not Reportable 03/09/22 02:13 Hemoglobin C Crystals Not Reportable 03/09/22 02:13 Schistocytes Not Reportable 03/09/22 02:13 Malaria parasites Not Reportable 03/09/22 02:13 Cristino Bodies Not Reportable 03/09/22 02:13 Hem Pathologist Commnt No 03/09/22 02:13 PT 15.7 Sec. (12.2-14.9) H 03/08/22 12:29 INR 1.09 (0.87-1.13) 03/08/22 12:29 Sodium 139 mmol/L (137-145) 03/09/22 02:13 Potassium 4.3 mmol/L (3.6-5.0) 03/09/22 02:13 Chloride 103.9 mmol/L (98-107) 03/09/22 02:13 Carbon Dioxide 21 mmol/L (22-30) L 03/09/22 02:13 Anion Gap 18 mmol/L 03/09/22 02:13 BUN 33 mg/dL (9-20) H 03/09/22 02:13 Creatinine 1.6 mg/dL (0.8-1.3) H 03/09/22 02:13 Estimated GFR 53 ml/min 03/09/22 02:13 BUN/Creatinine Ratio 21 % 03/09/22 02:13 Glucose 89 mg/dL (75-100) 03/09/22 02:13 Lactic Acid 1.40 mmol/L (0.7-2.0) 03/08/22 12:29 Calcium 9.9 mg/dL (8.4-10.2) 03/09/22 02:13 Total Bilirubin 0.30 mg/dL (0.1-1.2) 03/09/22 02:13 AST 25 units/L (5-40) 03/09/22 02:13 ALT 11 units/L (7-56) 03/09/22 02:13 Alkaline Phosphatase 83 units/L (35-129) 03/09/22 02:13 Ammonia 14.0 umol/L (25-60) L 03/08/22 12:29 Total Creatine Kinase 53 units/L (55-170) L 03/08/22 12:29 Troponin T 0.119 ng/mL (0.00-0.029) H* D 03/09/22 02:13 C-Reactive Protein 16.20 mg/dL (0.00-1.30) H 03/08/22 12:29 Total Protein 7.0 g/dL (6.3-8.2) 03/09/22 02:13 Albumin 2.5 g/dL (3.9-5) L 03/09/22 02:13 Albumin/Globulin Ratio 0.6 % 03/09/22 02:13 Triglycerides 105 mg/dL (2-149) 03/08/22 12:29 Cholesterol 136 mg/dL (50-199) 03/08/22 12:29 LDL Cholesterol Direct 76 mg/dL (50-130) 03/08/22 12:29 HDL Cholesterol 35 mg/dL (40-59) L 03/08/22 12:29 Cholesterol/HDL Ratio 3.88 % 03/08/22 12:29 Urine Color Yellow (Yellow) 03/08/22 14:38 Urine Turbidity Clear (Clear) 03/08/22 14:38 Urine pH 6.0 (5.0-7.0) 03/08/22 14:38 Ur Specific [place] 1.015 (1.003-1.030) 03/08/22 14:38 Urine Protein 30 mg/dl mg/dL (Negative) 03/08/22 14:38 Urine Glucose (UA) Negative mg/dL (Negative) 03/08/22 14:38 Urine Ketones Negative mg/dL (Negative) 03/08/22 14:38 Urine Blood 1+ (Negative) 03/08/22 14:38 Urine Nitrite Negative (Negative) 03/08/22 14:38 Ur Reducing Substances Negative (Negative) 03/08/22 14:38 Urine Bilirubin Negative (Negative) 03/08/22 14:38 Urine Urobilinogen 0.0 mg/dL (<2.0) 03/08/22 14:38 Ur Leukocyte Esterase Negative (Negative) 03/08/22 14:38 Urine WBC (Auto) 3.0 /HPF (0.0-6.0) 03/08/22 14:38 Urine RBC (Auto) 5.0 /HPF (0.0-6.0) 03/08/22 14:38 U Epithel Cells (Auto) 3.0 /HPF (0-13.0) 03/08/22 14:38 Urine Bacteria (Auto) 1+ /HPF (Negative) 03/08/22 14:38 Hyaline Casts 2 /LPF 03/08/22 14:38 Urine Mucus 1+ /HPF 03/08/22 14:38 Urine Creatinine 175.0 mg/dL (0.1-20.0) H 03/09/22 05:40 Urine Sodium 48 mmol/L 03/09/22 05:40 Salicylates < 0.3 mg/dL (2.8-20.0) L 03/08/22 12:29 Urine Opiates Screen Negative 03/08/22 14:38 Urine Methadone Screen Negative 03/08/22 14:38 Acetaminophen 5.0 ug/mL (10.0-30.0) L 03/08/22 12:29 Ur Barbiturates Screen Negative 03/08/22 14:38 Ur Phencyclidine Scrn Negative 03/08/22 14:38 Ur Amphetamines Screen Negative 03/08/22 14:38 U Benzodiazepines Scrn Negative 03/08/22 14:38 Urine Cocaine Screen Negative 03/08/22 14:38 U Marijuana (THC) Screen Positive 03/08/22 14:38 Drugs of Abuse Note Disclamer 03/08/22 14:38 Plasma/Serum Alcohol < 0.01 % (0-0.07) 03/08/22 12:29 Microbiology: Microbiology 03/08/22 12:29 Peripheral/Venous Blood Culture - Preliminary Culture in Progress 03/08/22 12:29 Peripheral/Venous Blood Culture - Preliminary Culture in Progress Active Medications - Current Medications Current Medications: Generic Name Dose Route Start Last Admin Trade Name Freq PRN Reason Stop Dose Admin Acetaminophen 650 mg 03/08/22 20:07 Acetaminophen 325 Mg Tab PO Q6H PRN Pain MILD(1-3)/Fever >100.5/HILTON Albuterol 2.5 mg 03/08/22 20:07 Albuterol 2.5 Mg/3 Ml Nebu IH Q3HRT PRN Shortness Of Breath Enoxaparin Sodium 80 mg 03/08/22 22:00 03/09/22 10:47 Enoxaparin 80 Mg/0.8 Ml Inj 1 mg/kg (90 mg) 80 mg SUB-Q Administration Q12HR FRANCESCA Protocol Famotidine 20 mg 03/09/22 10:00 03/09/22 10:47 Famotidine 20 Mg/2 Ml Inj IV 20 mg QDAY FRANCESCA Administration Metoprolol Tartrate 2.5 mg 03/09/22 00:00 03/09/22 11:39 Metoprolol Tartrate 5 Mg/5 Ml Inj IV 2.5 mg Q6HR FRANCESCA Administration Morphine Sulfate 2 mg 03/08/22 20:07 Morphine 4 Mg/1 Ml Inj IV Q8H PRN Pain , Severe (7-10) Oxycodone/Acetaminophen 1 tab 03/08/22 20:07 Oxycodone /Acetaminophen 5-325mg Tab PO Q6H PRN Pain, Moderate (4-6) Sodium Chloride 10 ml 03/08/22 22:00 03/09/22 10:47 Sodium Chloride 0.9% 10 Ml Flush Syringe IV 10 ml BID FRANCESCA Administration Sodium Chloride 10 ml 03/08/22 20:07 Sodium Chloride 0.9% 10 Ml Flush Syringe IV PRN PRN LINE FLUSH Tramadol HCl 50 mg 03/08/22 20:11 Tramadol 50 Mg Tab PO Q6H PRN Pain, Moderate (4-6) <ROSALIO RUSSELL - Last Filed: 03/10/22 07:28> Assessment and Plan Assessment and plan: I saw and evaluated the patient. I agree with the findings and the plan of care as documented in the Nurse Practitioner's~note, with the following corrections and additions. Hospitalist Physical - Constitutional Vitals: Temp Pulse Resp BP Pulse Ox 98.9 F 98 H 14 151/91 98 03/10/22 04:00 03/10/22 06:00 03/10/22 06:00 03/10/22 06:00 03/10/22 06:00 HEART Score - HEART Score Troponin: Troponin T 0.119 ng/mL (0.00-0.029) H* D 03/09/22 02:13 Results - Labs CBC & Chem 7: 03/10/22 04:31 03/10/22 04:31 Labs: Laboratory Last Values WBC 11.2 K/mm3 (4.5-11.0) H 03/10/22 04:31 RBC 4.02 M/mm3 (3.65-5.03) 03/10/22 04:31 Hgb 10.2 gm/dl (11.8-15.2) L 03/10/22 04:31 Hct 32.9 % (35.5-45.6) L 03/10/22 04:31 MCV 82 fl (84-94) L 03/10/22 04:31 MCH 25 pg (28-32) L 03/10/22 04:31 MCHC 31 % (32-34) L 03/10/22 04:31 RDW 16.6 % (13.2-15.2) H 03/10/22 04:31 Plt Count 449 K/mm3 (140-440) H 03/10/22 04:31 Lymph % (Auto) 9.0 % (13.4-35.0) L 03/08/22 12:29 [place] % (Auto) 11.2 % (0.0-7.3) H 03/08/22 12:29 Eos % (Auto) 1.9 % (0.0-4.3) 03/08/22 12:29 Baso % (Auto) 0.9 % (0.0-1.8) 03/08/22 12:29 Lymph # (Auto) 1.1 K/mm3 (1.2-5.4) L 03/08/22 12:29 [place] # (Auto) 1.4 K/mm3 (0.0-0.8) H 03/08/22 12:29 Eos # (Auto) 0.2 K/mm3 (0.0-0.4) 03/08/22 12:29 Baso # (Auto) 0.1 K/mm3 (0.0-0.1) 03/08/22 12:29 Add Manual Diff Complete 03/09/22 02:13 Total Counted 100 03/09/22 02:13 Seg Neutrophils % 77.0 % (40.0-70.0) H 03/08/22 12:29 Seg Neuts % (Manual) 80.0 % (40.0-70.0) H 03/09/22 02:13 Band Neutrophils % 0 % 03/09/22 02:13 Lymphocytes % (Manual) 11.0 % (13.4-35.0) L 03/09/22 02:13 Reactive Lymphs % (Man) 0 % 03/09/22 02:13 Monocytes % (Manual) 8.0 % (0.0-7.3) H 03/09/22 02:13 Eosinophils % (Manual) 1.0 % (0.0-4.3) 03/09/22 02:13 Basophils % (Manual) 0 % (0.0-1.8) 03/09/22 02:13 Metamyelocytes % 0 % 03/09/22 02:13 Myelocytes % 0 % 03/09/22 02:13 Promyelocytes % 0 % 03/09/22 02:13 Blast Cells % 0 % 03/09/22 02:13 Nucleated RBC % Not Reportable 03/09/22 02:13 Seg Neutrophils # 9.8 K/mm3 (1.8-7.7) H 03/08/22 12:29 Seg Neutrophils # Man 8.5 K/mm3 (1.8-7.7) H 03/09/22 02:13 Band Neutrophils # 0.0 K/mm3 03/09/22 02:13 Lymphocytes # (Manual) 1.2 K/mm3 (1.2-5.4) 03/09/22 02:13 Abs React Lymphs (Man) 0.0 K/mm3 03/09/22 02:13 Monocytes # (Manual) 0.8 K/mm3 (0.0-0.8) 03/09/22 02:13 Eosinophils # (Manual) 0.1 K/mm3 (0.0-0.4) 03/09/22 02:13 Basophils # (Manual) 0.0 K/mm3 (0.0-0.1) 03/09/22 02:13 Metamyelocytes # 0.0 K/mm3 03/09/22 02:13 Myelocytes # 0.0 K/mm3 03/09/22 02:13 Promyelocytes # 0.0 K/mm3 03/09/22 02:13 Blast Cells # 0.0 K/mm3 03/09/22 02:13 WBC Morphology Not Reportable 03/09/22 02:13 Hypersegmented Neuts Not Reportable 03/09/22 02:13 Hyposegmented Neuts Not Reportable 03/09/22 02:13 Hypogranular Neuts Not Reportable 03/09/22 02:13 Smudge Cells Not Reportable 03/09/22 02:13 Toxic Granulation Not Reportable 03/09/22 02:13 Toxic Vacuolation Not Reportable 03/09/22 02:13 Dohle Bodies Not Reportable 03/09/22 02:13 Pelger-Huet Anomaly Not Reportable 03/09/22 02:13 Marylin Rods Not Reportable 03/09/22 02:13 Platelet Estimate Consistent w auto 03/09/22 02:13 Clumped Platelets Not Reportable 03/09/22 02:13 Plt Clumps, EDTA Not Reportable 03/09/22 02:13 Large Platelets Not Reportable 03/09/22 02:13 Giant Platelets Not Reportable 03/09/22 02:13 Platelet Satelliting Not Reportable 03/09/22 02:13 Plt Morphology Comment Not Reportable 03/09/22 02:13 RBC Morphology Normal 03/09/22 02:13 Dimorphic RBCs Not Reportable 03/09/22 02:13 Polychromasia Not Reportable 03/09/22 02:13 Hypochromasia Not Reportable 03/09/22 02:13 Poikilocytosis Not Reportable 03/09/22 02:13 Anisocytosis Not Reportable 03/09/22 02:13 Microcytosis Not Reportable 03/09/22 02:13 Macrocytosis Not Reportable 03/09/22 02:13 Spherocytes Not Reportable 03/09/22 02:13 Pappenheimer Bodies Not Reportable 03/09/22 02:13 Sickle Cells Not Reportable 03/09/22 02:13 Target Cells Not Reportable 03/09/22 02:13 Tear Drop Cells Not Reportable 03/09/22 02:13 Ovalocytes Not Reportable 03/09/22 02:13 Helmet Cells Not Reportable 03/09/22 02:13 [place] Bodies Not Reportable 03/09/22 02:13 Excello Rings Not Reportable 03/09/22 02:13 [place] Cells Not Reportable 03/09/22 02:13 Bite Cells Not Reportable 03/09/22 02:13 Crenated Cell Not Reportable 03/09/22 02:13 Elliptocytes Not Reportable 03/09/22 02:13 Acanthocytes (Spur) Not Reportable 03/09/22 02:13 Rouleaux Not Reportable 03/09/22 02:13 Hemoglobin C Crystals Not Reportable 03/09/22 02:13 Schistocytes Not Reportable 03/09/22 02:13 Malaria parasites Not Reportable 03/09/22 02:13 Cristino Bodies Not Reportable 03/09/22 02:13 Hem Pathologist Commnt No 03/09/22 02:13 PT 15.7 Sec. (12.2-14.9) H 03/08/22 12:29 INR 1.09 (0.87-1.13) 03/08/22 12:29 Sodium 141 mmol/L (137-145) 03/10/22 04:31 Potassium 4.1 mmol/L (3.6-5.0) 03/10/22 04:31 Chloride 105.6 mmol/L (98-107) 03/10/22 04:31 Carbon Dioxide 20 mmol/L (22-30) L 03/10/22 04:31 Anion Gap 20 mmol/L 03/10/22 04:31 BUN 28 mg/dL (9-20) H 03/10/22 04:31 Creatinine 1.6 mg/dL (0.8-1.3) H 03/10/22 04:31 Estimated GFR 53 ml/min 03/10/22 04:31 BUN/Creatinine Ratio 18 % 03/10/22 04:31 Glucose 78 mg/dL (75-100) 03/10/22 04:31 POC Glucose 82 mg/dL (70-105) 03/10/22 06:32 Lactic Acid 1.40 mmol/L (0.7-2.0) 03/08/22 12:29 Calcium 9.8 mg/dL (8.4-10.2) 03/10/22 04:31 Total Bilirubin 0.30 mg/dL (0.1-1.2) 03/09/22 02:13 AST 25 units/L (5-40) 03/09/22 02:13 ALT 11 units/L (7-56) 03/09/22 02:13 Alkaline Phosphatase 83 units/L (35-129) 03/09/22 02:13 Ammonia 14.0 umol/L (25-60) L 03/08/22 12:29 Total Creatine Kinase 53 units/L (55-170) L 03/08/22 12:29 Troponin T 0.119 ng/mL (0.00-0.029) H* D 03/09/22 02:13 C-Reactive Protein 16.20 mg/dL (0.00-1.30) H 03/08/22 12:29 Total Protein 7.0 g/dL (6.3-8.2) 03/09/22 02:13 Albumin 2.5 g/dL (3.9-5) L 03/09/22 02:13 Albumin/Globulin Ratio 0.6 % 03/09/22 02:13 Triglycerides 105 mg/dL (2-149) 03/08/22 12:29 Cholesterol 136 mg/dL (50-199) 03/08/22 12:29 LDL Cholesterol Direct 76 mg/dL (50-130) 03/08/22 12:29 HDL Cholesterol 35 mg/dL (40-59) L 03/08/22 12:29 Cholesterol/HDL Ratio 3.88 % 03/08/22 12:29 Urine Color Yellow (Yellow) 03/08/22 14:38 Urine Turbidity Clear (Clear) 03/08/22 14:38 Urine pH 6.0 (5.0-7.0) 03/08/22 14:38 Ur Specific [place] 1.015 (1.003-1.030) 03/08/22 14:38 Urine Protein 30 mg/dl mg/dL (Negative) 03/08/22 14:38 Urine Glucose (UA) Negative mg/dL (Negative) 03/08/22 14:38 Urine Ketones Negative mg/dL (Negative) 03/08/22 14:38 Urine Blood 1+ (Negative) 03/08/22 14:38 Urine Nitrite Negative (Negative) 03/08/22 14:38 Ur Reducing Substances Negative (Negative) 03/08/22 14:38 Urine Bilirubin Negative (Negative) 03/08/22 14:38 Urine Urobilinogen 0.0 mg/dL (<2.0) 03/08/22 14:38 Ur Leukocyte Esterase Negative (Negative) 03/08/22 14:38 Urine WBC (Auto) 3.0 /HPF (0.0-6.0) 03/08/22 14:38 Urine RBC (Auto) 5.0 /HPF (0.0-6.0) 03/08/22 14:38 U Epithel Cells (Auto) 3.0 /HPF (0-13.0) 03/08/22 14:38 Urine Bacteria (Auto) 1+ /HPF (Negative) 03/08/22 14:38 Hyaline Casts 2 /LPF 03/08/22 14:38 Urine Mucus 1+ /HPF 03/08/22 14:38 Urine Creatinine 167.4 mg/dL (0.1-20.0) H 03/09/22 15:25 Urine Sodium 49 mmol/L 03/09/22 15:25 Salicylates < 0.3 mg/dL (2.8-20.0) L 03/08/22 12:29 Urine Opiates Screen Negative 03/08/22 14:38 Urine Methadone Screen Negative 03/08/22 14:38 Acetaminophen 5.0 ug/mL (10.0-30.0) L 03/08/22 12:29 Ur Barbiturates Screen Negative 03/08/22 14:38 Ur Phencyclidine Scrn Negative 03/08/22 14:38 Ur Amphetamines Screen Negative 03/08/22 14:38 U Benzodiazepines Scrn Negative 03/08/22 14:38 Urine Cocaine Screen Negative 03/08/22 14:38 U Marijuana (THC) Screen Positive 03/08/22 14:38 Drugs of Abuse Note Disclamer 03/08/22 14:38 Plasma/Serum Alcohol < 0.01 % (0-0.07) 03/08/22 12:29 Microbiology: Microbiology 03/08/22 12:29 Peripheral/Venous Blood Culture - Preliminary NO GROWTH AFTER 24 HOURS 03/08/22 12:29 Peripheral/Venous Blood Culture - Preliminary NO GROWTH AFTER 24 HOURS Arte[place]/IV: Voiding Method Indwelling Catheter Active Medications - Current Medications Current Medications: Generic Name Dose Route Start Last Admin Trade Name Freq PRN Reason Stop Dose Admin Acetaminophen 650 mg 03/08/22 20:07 Acetaminophen 325 Mg Tab PO Q6H PRN Pain MILD(1-3)/Fever >100.5/[place] Albuterol 2.5 mg 03/08/22 20:07 Albuterol 2.5 Mg/3 Ml Nebu IH Q3HRT PRN Shortness Of Breath Enoxaparin Sodium 80 mg 03/08/22 22:00 03/09/22 21:06 Enoxaparin 80 Mg/0.8 Ml Inj 1 mg/kg (90 mg) 80 mg SUB-Q Administration Q12HR FRANCESCA Protocol Famotidine 20 mg 03/09/22 10:00 03/09/22 10:47 Famotidine 20 Mg/2 Ml Inj IV 20 mg QDAY FRANCESCA Administration Metoprolol Tartrate 25 mg 03/09/22 17:00 03/09/22 21:06 Metoprolol Tartrate 25 Mg Tab PO 25 mg BID FRANCESCA Administration Morphine Sulfate 2 mg 03/08/22 20:07 Morphine 4 Mg/1 Ml Inj IV Q8H PRN Pain , Severe (7-10) Oxycodone/Acetaminophen 1 tab 03/08/22 20:07 Oxycodone /Acetaminophen 5-325mg Tab PO Q6H PRN Pain, Moderate (4-6) Sodium Chloride 10 ml 03/08/22 22:00 03/09/22 21:06 Sodium Chloride 0.9% 10 Ml Flush Syringe IV 10 ml BID FRANCESCA Administration Sodium Chloride 10 ml 03/08/22 20:07 Sodium Chloride 0.9% 10 Ml Flush Syringe IV PRN PRN LINE FLUSH Tramadol HCl 50 mg 03/08/22 20:11 Tramadol 50 Mg Tab PO Q6H PRN Pain, Moderate (4-6)
[2022-03-09] MEDS: METOPROLOL TARTRATE 25 MG TAB PO SCH ×2 (17:00→21:06)
[2022-03-09 19:06] LABS: Creatinine,Urine 167.4 mg/dL (0.1-20.0)
[2022-03-10 06:21] LABS: Hematocrit 32.9 % (35.5-45.6); Hemoglobin 10.2 gm/dl (11.8-15.2); Mean Corpuscular HGB Conc 31 % (32-34); Mean Corpuscular Volume 82 fl (84-94); Platelet Count 449 K/mm3 (140-440); Red Blood Count 4.02 M/mm3 (3.65-5.03); Red Cell Distribution Width 16.6 % (13.2-15.2)
[2022-03-10 06:39] LABS: Calcium 9.8 mg/dL (8.4-10.2)
--- NOTE | 2022-03-10 08:43 | Progress Note ---
Assessment and Plan 1. Acute kidney injury: Vasomotor MARIE superimposed on CKD in the setting of A.Fib with RVR. Urine studies. Monitor renal function. Creatinine leveled off. Avoid nephrotoxic agents. Meds dosage based on GFR. 2. FEN: Replete lytes as needed. Monitor lytes and volume status. 3. A.fib with RVR: New diagnosis. Amio drip. Lovenox. Metoprolol. Followed by Cards. Monitor. 4. Acute metabolic encephalopathy, POA: Monitor. 5. NSTEMI (non-ST elevated myocardial infarction): EF: 25-30%. BB. Lovenox. Followed by Cards. 6. HFrEF: EF: 25-30%. 7. Microcytic Anemia, POA: Trend. Subjective: Patient was seen and examined at the bedside. Examination: General appearance: well-developed, appears stated age, no distress HEENT: atraumatic, no icterus Neck: trachea midline Respiratory: ctab Heart: S1S2, irregular, tachycardia, no murmur Abdomen: soft, bowel sounds heard, NT Integumentary: no obvious rash Neurologic: somnolent, able to move extremities, confused Ext: no edema Subjective Date of service: 03/10/22 Objective - Vital Signs Vital signs: Vital Signs - 12hr 03/09/22 03/09/22 03/09/22 20:46 21:00 21:16 Temperature Pulse Rate 103 H 99 H 96 H Pulse Rate [ From Monitor] Respiratory 23 13 23 Rate Blood Pressure 142/69 142/69 142/69 O2 Sat by Pulse 100 100 100 Oximetry 03/09/22 03/09/22 03/09/22 21:24 21:30 21:46 Temperature Pulse Rate 104 H 112 H Pulse Rate [ From Monitor] Respiratory 12 14 Rate Blood Pressure 142/69 142/69 O2 Sat by Pulse 100 100 100 Oximetry 03/09/22 03/09/22 03/09/22 22:00 22:16 22:30 Temperature Pulse Rate 97 H 105 H 103 H Pulse Rate [ From Monitor] Respiratory 23 17 16 Rate Blood Pressure 131/77 137/76 O2 Sat by Pulse 99 100 100 Oximetry 03/09/22 03/09/22 03/09/22 22:46 23:00 23:16 Temperature Pulse Rate 101 H 107 H 121 H Pulse Rate [ From Monitor] Respiratory 14 17 15 Rate Blood Pressure 137/76 137/76 144/88 O2 Sat by Pulse 100 100 100 Oximetry 03/09/22 03/09/22 03/09/22 23:30 23:32 23:46 Temperature Pulse Rate 107 H 108 H 112 H Pulse Rate [ From Monitor] Respiratory 12 13 17 Rate Blood Pressure 144/88 137/76 144/88 O2 Sat by Pulse 100 100 100 Oximetry 03/09/22 03/09/22 03/10/22 23:54 23:55 00:00 Temperature 98.7 F Pulse Rate 105 H 101 H Pulse Rate [ 101 H From Monitor] Respiratory 12 Rate Blood Pressure 144/88 O2 Sat by Pulse 99 Oximetry 03/10/22 03/10/22 03/10/22 01:00 02:00 03:00 Temperature Pulse Rate 103 H 104 H 118 H Pulse Rate [ From Monitor] Respiratory 22 13 21 Rate Blood Pressure 141/84 151/86 151/86 O2 Sat by Pulse 99 100 99 Oximetry 03/10/22 03/10/22 03/10/22 03:14 04:00 05:00 Temperature 98.9 F Pulse Rate 117 H 108 H Pulse Rate [ 108 H From Monitor] Respiratory 20 13 16 Rate Blood Pressure 147/91 144/94 O2 Sat by Pulse 100 98 98 Oximetry 03/10/22 06:00 Temperature Pulse Rate 98 H Pulse Rate [ From Monitor] Respiratory 14 Rate Blood Pressure 151/91 O2 Sat by Pulse 98 Oximetry - Lab 03/10/22 04:31 03/10/22 04:31 Most recent lab results Calcium 9.8 mg/dL (8.4-10.2) 03/10/22 04:31 Urine Creatinine 167.4 mg/dL (0.1-20.0) H 03/09/22 15:25 Urine Sodium 49 mmol/L 03/09/22 15:25 Medications & Allergies - Medications Allergies/Adverse Reactions: Allergies No Known Allergies Allergy (Verified 08/27/15 22:29) Home Medications: Home Medications Medication Instructions Recorded Confirmed Last Taken Type Ibuprofen [Motrin] 400 mg PO Q8H PRN #30 tablet 08/28/15 Unknown Rx Oxycodone HCl/Acetaminophen 1 each PO Q6HR PRN #20 tablet 08/28/15 Unknown Rx [Percocet 10/325 mg] Promethazine [Phenergan TAB] 25 mg PO Q6HR PRN #20 tab 08/28/15 Unknown Rx Tamsulosin [Flomax] 0.4 mg PO QDAY #7 cap 08/28/15 Unknown Rx amLODIPine [Norvasc] 10 mg PO DAILY #30 tab 08/28/15 Unknown Rx Active Medications: Generic Name Dose Route Start Last Admin Trade Name Freq PRN Reason Stop Dose Admin Acetaminophen 650 mg 03/08/22 20:07 Acetaminophen 325 Mg Tab PO Q6H PRN Pain MILD(1-3)/Fever >100.5/[place] Albuterol 2.5 mg 03/08/22 20:07 Albuterol 2.5 Mg/3 Ml Nebu IH Q3HRT PRN Shortness Of Breath Enoxaparin Sodium 80 mg 03/08/22 22:00 03/09/22 21:06 Enoxaparin 80 Mg/0.8 Ml Inj 1 mg/kg (90 mg) 80 mg SUB-Q Administration Q12HR [facility] Protocol Famotidine 20 mg 03/09/22 10:00 03/09/22 10:47 Famotidine 20 Mg/2 Ml Inj IV 20 mg QDAY FRANCESCA Administration Metoprolol Tartrate 25 mg 03/09/22 17:00 03/09/22 21:06 Metoprolol Tartrate 25 Mg Tab PO 25 mg BID FRANCESCA Administration Morphine Sulfate 2 mg 03/08/22 20:07 Morphine 4 Mg/1 Ml Inj IV Q8H PRN Pain , Severe (7-10) Oxycodone/Acetaminophen 1 tab 03/08/22 20:07 Oxycodone /Acetaminophen 5-325mg Tab PO Q6H PRN Pain, Moderate (4-6) Sodium Chloride 10 ml 03/08/22 22:00 03/09/22 21:06 Sodium Chloride 0.9% 10 Ml Flush Syringe IV 10 ml BID FRANCESCA Administration Sodium Chloride 10 ml 03/08/22 20:07 Sodium Chloride 0.9% 10 Ml Flush Syringe IV PRN PRN LINE FLUSH Tramadol HCl 50 mg 03/08/22 20:11 Tramadol 50 Mg Tab PO Q6H PRN Pain, Moderate (4-6)
--- NOTE | 2022-03-10 10:55 | Progress Note ---
<ANTONIO PENNY - Last Filed: 03/10/22 18:13> Assessment and Plan Assessment and plan: This is a 67-year-old male with known past medical history of vascular dementia, cerebral atherosclerosis, BPH, HTN, nicotine dependence, severe arthritis, and debility admitted for NSTEMI, AFib with RVR, and MARIE Hospital Course to Date: 03/09: Stable on RA, denied ay pain nor any discomfort at this time. SR with PACs noted on the monitor, VSS. Renal function mild improvement in renal function this am. Continue schedule BB for rate control and therapeutic Lovenox subQ. 2D echo pending and Cardiology consulted. Nephrology is also following. 03/10: More awake today but confused, remains stable on RA. ST with frequent PACs, VSS. Per cardio patient is most likely in MATs. 2D echo still pending, continue BB. Renal function is stable, continue current care per nephro. Nicotine patch added for increase cigarettes urges. Patient's brother provided contact for 3 providers who patient have seen in the past, medical records requested. Assessment and Plan #NSTEMI (non-ST elevated myocardial infarction) #New Onset Atrial Fibrillation with RVR #Hypertension - Presented with AMS, found in AFib with RVR in the ED with elevated troponin - No report of previous Afib history, most likely new onset - Troponin downtrending - Per patient's brother patient sees a PCP in [place], however patient has been refusing to go to the doctor - s/p Chey gtt - Cardiology consulted, appreciate recommendations - Patient is ST with PACs on the monitor. Per cardio most likely MATs. Patient denied any chest pain, VSS - Continue BB and therapeutic Lovenox - 2D Echo pending - Continue blood pressure monitor per protocol - Maintain SBP less than 160 #Acute kidney injury(MARIE) - Baseline renal function is unknown, most likely prerenal secondary to above - Renal function remains stable - Neprology consulted, appreciated recommendations - Strict intake and output - Avoid nephrotoxic medications; Renally dose medications - Monitor and replace electrolytes as needed #SIRS (Systemic Inflammatory Response Syndrome) - Presented with leukocytosis and tachycardia, but afebrile - X1 dose of Empiric IV antibiotic given in the ED - UA unremakarble, Blood cultures with NGTD - Patient remains afebrile, leukocytosis improved - Will continue to monitor for now - F/u on cultures #Acute Metabolic Encephalopathy #Vascular Dementia - Presented with increased weakness and decreased responsiveness over the past 1 week - Probably secondary to above - Mentation improved this am, still with periods of confusion - Verbal prompting, verbal redirection - Avoid benzodiazepine to reduce the possibility of delirium - Maintenance of sleep-wake cycle #Severe Arthritis #Debility - Supportive measures - PRN analgesia for pain control - PT/OT consulted #Nicotine Dependence - Per patient he smoke at least a pack a day - smoking cessation education provided. Patient verbalized understanding and agreed with the info provided - Nicotine qDay #GI/DVT Prophylaxis - PPI- Pepcid - Lovenox SubQ - SCDs bilateral lower extremities while in bed, #Advance Care Planning - Disease education data, care plan, diagnoses, and prognosis were discussed with patient and patient's brother at the bedside. Patient is a FULL code. They acknowledged understanding and agreed with current care plan. The high probability of a clinically significant, sudden or life threatening deterioration of the [multiple] system(s) required my full and direct attention, intervention and personal management. The aggregate critical care time was [60] minutes. This time is in addition to time spent performing reported procedures but includes the following: [x] Data Review and interpretation [x] Patient assessment and monitoring of vital signs [x] Documentation [x] Medication orders and management Disposition Plan: IMCU Total Time Spent with Patient (Minutes): 60 History Interval history: Patient seen and examined at the bedside. More awake today but confused, following commands, wanting to go home so he can smoke a cigarette. Stable on RA, denied any pain nor any discomfort at this time. ST with PACs noted on the monitor, HR in the 120s, VSS. Hospitalist Physical - Constitutional Vitals: Temp Pulse Resp BP Pulse Ox 98.7 F 144 H 23 156/87 98 03/10/22 08:00 03/10/22 09:00 03/10/22 09:00 03/10/22 09:00 03/10/22 09:00 General appearance: Present: no acute distress, well-nourished, obese - EENT Eyes: Present: PERRL ENT: hearing intact - Neck Neck: Present: normal ROM - Respiratory Respiratory effort: normal Respiratory: bilateral: diminished - Cardiovascular Rhythm: regularly irregular Heart Sounds: Present: S1 & S2 - Extremities Extremities: no ischemia, pulses intact, pulses symmetrical Extremity abnormal: edema - Peripheral Assessment Generalized Edema Type: Non-pitting Edema Degree: 1+ Capillary Refill: < 3 seconds Skin Temperature: Warm Peripheral Pulses: within normal limits - Abdominal General gastrointestinal: soft, non-distended, normal bowel sounds - Integumentary Integumentary: Present: clear, warm, dry - Psychiatric Psychiatric: cooperative, agitated, other (Awake but confused) - Neurologic Neurologic: moves all extremities, other (Awake but confused, following commands) - Allied Health Allied health notes reviewed: nursing, case management HEART Score - HEART Score Troponin: Troponin T 0.119 ng/mL (0.00-0.029) H* D 03/09/22 02:13 Results - Labs CBC & Chem 7: 03/10/22 04:31 03/10/22 04:31 Labs: Laboratory Last Values WBC 11.2 K/mm3 (4.5-11.0) H 03/10/22 04:31 RBC 4.02 M/mm3 (3.65-5.03) 03/10/22 04:31 Hgb 10.2 gm/dl (11.8-15.2) L 03/10/22 04:31 Hct 32.9 % (35.5-45.6) L 03/10/22 04:31 MCV 82 fl (84-94) L 03/10/22 04:31 MCH 25 pg (28-32) L 03/10/22 04:31 MCHC 31 % (32-34) L 03/10/22 04:31 RDW 16.6 % (13.2-15.2) H 03/10/22 04:31 Plt Count 449 K/mm3 (140-440) H 03/10/22 04:31 Lymph % (Auto) 9.0 % (13.4-35.0) L 03/08/22 12:29 Wood % (Auto) 11.2 % (0.0-7.3) H 03/08/22 12:29 Eos % (Auto) 1.9 % (0.0-4.3) 03/08/22 12:29 Baso % (Auto) 0.9 % (0.0-1.8) 03/08/22 12:29 Lymph # (Auto) 1.1 K/mm3 (1.2-5.4) L 03/08/22 12:29 Wood # (Auto) 1.4 K/mm3 (0.0-0.8) H 03/08/22 12:29 Eos # (Auto) 0.2 K/mm3 (0.0-0.4) 03/08/22 12:29 Baso # (Auto) 0.1 K/mm3 (0.0-0.1) 03/08/22 12:29 Add Manual Diff Complete 03/09/22 02:13 Total Counted 100 03/09/22 02:13 Seg Neutrophils % 77.0 % (40.0-70.0) H 03/08/22 12:29 Seg Neuts % (Manual) 80.0 % (40.0-70.0) H 03/09/22 02:13 Band Neutrophils % 0 % 03/09/22 02:13 Lymphocytes % (Manual) 11.0 % (13.4-35.0) L 03/09/22 02:13 Reactive Lymphs % (Man) 0 % 03/09/22 02:13 Monocytes % (Manual) 8.0 % (0.0-7.3) H 03/09/22 02:13 Eosinophils % (Manual) 1.0 % (0.0-4.3) 03/09/22 02:13 Basophils % (Manual) 0 % (0.0-1.8) 03/09/22 02:13 Metamyelocytes % 0 % 03/09/22 02:13 Myelocytes % 0 % 03/09/22 02:13 Promyelocytes % 0 % 03/09/22 02:13 Blast Cells % 0 % 03/09/22 02:13 Nucleated RBC % Not Reportable 03/09/22 02:13 Seg Neutrophils # 9.8 K/mm3 (1.8-7.7) H 03/08/22 12:29 Seg Neutrophils # Man 8.5 K/mm3 (1.8-7.7) H 03/09/22 02:13 Band Neutrophils # 0.0 K/mm3 03/09/22 02:13 Lymphocytes # (Manual) 1.2 K/mm3 (1.2-5.4) 03/09/22 02:13 Abs React Lymphs (Man) 0.0 K/mm3 03/09/22 02:13 Monocytes # (Manual) 0.8 K/mm3 (0.0-0.8) 03/09/22 02:13 Eosinophils # (Manual) 0.1 K/mm3 (0.0-0.4) 03/09/22 02:13 Basophils # (Manual) 0.0 K/mm3 (0.0-0.1) 03/09/22 02:13 Metamyelocytes # 0.0 K/mm3 03/09/22 02:13 Myelocytes # 0.0 K/mm3 03/09/22 02:13 Promyelocytes # 0.0 K/mm3 03/09/22 02:13 Blast Cells # 0.0 K/mm3 03/09/22 02:13 WBC Morphology Not Reportable 03/09/22 02:13 Hypersegmented Neuts Not Reportable 03/09/22 02:13 Hyposegmented Neuts Not Reportable 03/09/22 02:13 Hypogranular Neuts Not Reportable 03/09/22 02:13 Smudge Cells Not Reportable 03/09/22 02:13 Toxic Granulation Not Reportable 03/09/22 02:13 Toxic Vacuolation Not Reportable 03/09/22 02:13 Dohle Bodies Not Reportable 03/09/22 02:13 Pelger-Huet Anomaly Not Reportable 03/09/22 02:13 Marylin Rods Not Reportable 03/09/22 02:13 Platelet Estimate Consistent w auto 03/09/22 02:13 Clumped Platelets Not Reportable 03/09/22 02:13 Plt Clumps, EDTA Not Reportable 03/09/22 02:13 Large Platelets Not Reportable 03/09/22 02:13 Giant Platelets Not Reportable 03/09/22 02:13 Platelet Satelliting Not Reportable 03/09/22 02:13 Plt Morphology Comment Not Reportable 03/09/22 02:13 RBC Morphology Normal 03/09/22 02:13 Dimorphic RBCs Not Reportable 03/09/22 02:13 Polychromasia Not Reportable 03/09/22 02:13 Hypochromasia Not Reportable 03/09/22 02:13 Poikilocytosis Not Reportable 03/09/22 02:13 Anisocytosis Not Reportable 03/09/22 02:13 Microcytosis Not Reportable 03/09/22 02:13 Macrocytosis Not Reportable 03/09/22 02:13 Spherocytes Not Reportable 03/09/22 02:13 Pappenheimer Bodies Not Reportable 03/09/22 02:13 Sickle Cells Not Reportable 03/09/22 02:13 Target Cells Not Reportable 03/09/22 02:13 Tear Drop Cells Not Reportable 03/09/22 02:13 Ovalocytes Not Reportable 03/09/22 02:13 Helmet Cells Not Reportable 03/09/22 02:13 [facility]-[employer] [facility] Bodies Not Reportable 03/09/22 02:13 [place] Rings Not Reportable 03/09/22 02:13 Damari Cells Not Reportable 03/09/22 02:13 Bite Cells Not Reportable 03/09/22 02:13 Crenated Cell Not Reportable 03/09/22 02:13 Elliptocytes Not Reportable 03/09/22 02:13 Acanthocytes (Spur) Not Reportable 03/09/22 02:13 Rouleaux Not Reportable 03/09/22 02:13 Hemoglobin C Crystals Not Reportable 03/09/22 02:13 Schistocytes Not Reportable 03/09/22 02:13 Malaria parasites Not Reportable 03/09/22 02:13 Cristino Bodies Not Reportable 03/09/22 02:13 Hem Pathologist Commnt No 03/09/22 02:13 PT 15.7 Sec. (12.2-14.9) H 03/08/22 12:29 INR 1.09 (0.87-1.13) 03/08/22 12:29 Sodium 141 mmol/L (137-145) 03/10/22 04:31 Potassium 4.1 mmol/L (3.6-5.0) 03/10/22 04:31 Chloride 105.6 mmol/L (98-107) 03/10/22 04:31 Carbon Dioxide 20 mmol/L (22-30) L 03/10/22 04:31 Anion Gap 20 mmol/L 03/10/22 04:31 BUN 28 mg/dL (9-20) H 03/10/22 04:31 Creatinine 1.6 mg/dL (0.8-1.3) H 03/10/22 04:31 Estimated GFR 53 ml/min 03/10/22 04:31 BUN/Creatinine Ratio 18 % 03/10/22 04:31 Glucose 78 mg/dL (75-100) 03/10/22 04:31 POC Glucose 82 mg/dL (70-105) 03/10/22 06:32 Lactic Acid 1.40 mmol/L (0.7-2.0) 03/08/22 12:29 Calcium 9.8 mg/dL (8.4-10.2) 03/10/22 04:31 Total Bilirubin 0.30 mg/dL (0.1-1.2) 03/09/22 02:13 AST 25 units/L (5-40) 03/09/22 02:13 ALT 11 units/L (7-56) 03/09/22 02:13 Alkaline Phosphatase 83 units/L (35-129) 03/09/22 02:13 Ammonia 14.0 umol/L (25-60) L 03/08/22 12:29 Total Creatine Kinase 53 units/L (55-170) L 03/08/22 12:29 Troponin T 0.119 ng/mL (0.00-0.029) H* D 03/09/22 02:13 C-Reactive Protein 16.20 mg/dL (0.00-1.30) H 03/08/22 12:29 Total Protein 7.0 g/dL (6.3-8.2) 03/09/22 02:13 Albumin 2.5 g/dL (3.9-5) L 03/09/22 02:13 Albumin/Globulin Ratio 0.6 % 03/09/22 02:13 Triglycerides 105 mg/dL (2-149) 03/08/22 12:29 Cholesterol 136 mg/dL (50-199) 03/08/22 12:29 LDL Cholesterol Direct 76 mg/dL (50-130) 03/08/22 12:29 HDL Cholesterol 35 mg/dL (40-59) L 03/08/22 12:29 Cholesterol/HDL Ratio 3.88 % 03/08/22 12:29 Urine Color Yellow (Yellow) 03/08/22 14:38 Urine Turbidity Clear (Clear) 03/08/22 14:38 Urine pH 6.0 (5.0-7.0) 03/08/22 14:38 Ur Specific [place] 1.015 (1.003-1.030) 03/08/22 14:38 Urine Protein 30 mg/dl mg/dL (Negative) 03/08/22 14:38 Urine Glucose (UA) Negative mg/dL (Negative) 03/08/22 14:38 Urine Ketones Negative mg/dL (Negative) 03/08/22 14:38 Urine Blood 1+ (Negative) 03/08/22 14:38 Urine Nitrite Negative (Negative) 03/08/22 14:38 Ur Reducing Substances Negative (Negative) 03/08/22 14:38 Urine Bilirubin Negative (Negative) 03/08/22 14:38 Urine Urobilinogen 0.0 mg/dL (<2.0) 03/08/22 14:38 Ur Leukocyte Esterase Negative (Negative) 03/08/22 14:38 Urine WBC (Auto) 3.0 /HPF (0.0-6.0) 03/08/22 14:38 Urine RBC (Auto) 5.0 /HPF (0.0-6.0) 03/08/22 14:38 U Epithel Cells (Auto) 3.0 /HPF (0-13.0) 03/08/22 14:38 Urine Bacteria (Auto) 1+ /HPF (Negative) 03/08/22 14:38 Hyaline Casts 2 /LPF 03/08/22 14:38 Urine Mucus 1+ /HPF 03/08/22 14:38 Urine Creatinine 167.4 mg/dL (0.1-20.0) H 03/09/22 15:25 Urine Sodium 49 mmol/L 03/09/22 15:25 Salicylates < 0.3 mg/dL (2.8-20.0) L 03/08/22 12:29 Urine Opiates Screen Negative 03/08/22 14:38 Urine Methadone Screen Negative 03/08/22 14:38 Acetaminophen 5.0 ug/mL (10.0-30.0) L 03/08/22 12:29 Ur Barbiturates Screen Negative 03/08/22 14:38 Ur Phencyclidine Scrn Negative 03/08/22 14:38 Ur Amphetamines Screen Negative 03/08/22 14:38 U Benzodiazepines Scrn Negative 03/08/22 14:38 Urine Cocaine Screen Negative 03/08/22 14:38 U Marijuana (THC) Screen Positive 03/08/22 14:38 Drugs of Abuse Note Disclamer 03/08/22 14:38 Plasma/Serum Alcohol < 0.01 % (0-0.07) 03/08/22 12:29 Microbiology: Microbiology 03/08/22 12:29 Peripheral/Venous Blood Culture - Preliminary NO GROWTH AFTER 24 HOURS 03/08/22 12:29 Peripheral/Venous Blood Culture - Preliminary NO GROWTH AFTER 24 HOURS Arteaga/IV: Voiding Method Indwelling Catheter Active Medications - Current Medications Current Medications: Generic Name Dose Route Start Last Admin Trade Name Freq PRN Reason Stop Dose Admin Acetaminophen 650 mg 03/08/22 20:07 Acetaminophen 325 Mg Tab PO Q6H PRN Pain MILD(1-3)/Fever >100.5/HILTON Albuterol 2.5 mg 03/08/22 20:07 Albuterol 2.5 Mg/3 Ml Nebu IH Q3HRT PRN Shortness Of Breath Enoxaparin Sodium 90 mg 03/10/22 10:15 Enoxaparin 100 Mg/1 Ml Inj SUB-Q Q12HR FRANCESCA Famotidine 20 mg 03/09/22 10:00 03/09/22 10:47 Famotidine 20 Mg/2 Ml Inj IV 20 mg QDAY FRANCESCA Administration Metoprolol Tartrate 25 mg 03/09/22 17:00 03/09/22 21:06 Metoprolol Tartrate 25 Mg Tab PO 25 mg BID FRANCESCA Administration Morphine Sulfate 2 mg 03/08/22 20:07 Morphine 4 Mg/1 Ml Inj IV Q8H PRN Pain , Severe (7-10) Nicotine 21 mg 03/10/22 10:00 Nicotine 21 Mg/24 Hr Patch TD QDAY FRANCESCA Oxycodone/Acetaminophen 1 tab 03/08/22 20:07 Oxycodone /Acetaminophen 5-325mg Tab PO Q6H PRN Pain, Moderate (4-6) Sodium Chloride 10 ml 03/08/22 22:00 03/09/22 21:06 Sodium Chloride 0.9% 10 Ml Flush Syringe IV 10 ml BID FRANCESCA Administration Sodium Chloride 10 ml 03/08/22 20:07 Sodium Chloride 0.9% 10 Ml Flush Syringe IV PRN PRN LINE FLUSH Tramadol HCl 50 mg 03/08/22 20:11 Tramadol 50 Mg Tab PO Q6H PRN Pain, Moderate (4-6) <ROSALIO RUSSELL - Last Filed: 03/11/22 07:52> Assessment and Plan Assessment and plan: I saw and evaluated the patient. I agree with the findings and the plan of care as documented in the Nurse Practitioner's~note, with the following corrections and additions. Hospitalist Physical - Constitutional Vitals: Temp Pulse Resp BP Pulse Ox 98 F 95 H 19 147/91 98 03/11/22 03:29 03/11/22 07:01 03/11/22 07:01 03/11/22 07:01 03/11/22 07:01 HEART Score - HEART Score Troponin: Troponin T 0.119 ng/mL (0.00-0.029) H* D 03/09/22 02:13 Results - Labs CBC & Chem 7: 03/10/22 04:31 03/11/22 03:52 Labs: Laboratory Last Values WBC 11.2 K/mm3 (4.5-11.0) H 03/10/22 04:31 RBC 4.02 M/mm3 (3.65-5.03) 03/10/22 04:31 Hgb 10.2 gm/dl (11.8-15.2) L 03/10/22 04:31 Hct 32.9 % (35.5-45.6) L 03/10/22 04:31 MCV 82 fl (84-94) L 03/10/22 04:31 MCH 25 pg (28-32) L 03/10/22 04:31 MCHC 31 % (32-34) L 03/10/22 04:31 RDW 16.6 % (13.2-15.2) H 03/10/22 04:31 Plt Count 449 K/mm3 (140-440) H 03/10/22 04:31 Lymph % (Auto) 9.0 % (13.4-35.0) L 03/08/22 12:29 Wood % (Auto) 11.2 % (0.0-7.3) H 03/08/22 12:29 Eos % (Auto) 1.9 % (0.0-4.3) 03/08/22 12:29 Baso % (Auto) 0.9 % (0.0-1.8) 03/08/22 12:29 Lymph # (Auto) 1.1 K/mm3 (1.2-5.4) L 03/08/22 12:29 Wood # (Auto) 1.4 K/mm3 (0.0-0.8) H 03/08/22 12:29 Eos # (Auto) 0.2 K/mm3 (0.0-0.4) 03/08/22 12:29 Baso # (Auto) 0.1 K/mm3 (0.0-0.1) 03/08/22 12:29 Add Manual Diff Complete 03/09/22 02:13 Total Counted 100 03/09/22 02:13 Seg Neutrophils % 77.0 % (40.0-70.0) H 03/08/22 12:29 Seg Neuts % (Manual) 80.0 % (40.0-70.0) H 03/09/22 02:13 Band Neutrophils % 0 % 03/09/22 02:13 Lymphocytes % (Manual) 11.0 % (13.4-35.0) L 03/09/22 02:13 Reactive Lymphs % (Man) 0 % 03/09/22 02:13 Monocytes % (Manual) 8.0 % (0.0-7.3) H 03/09/22 02:13 Eosinophils % (Manual) 1.0 % (0.0-4.3) 03/09/22 02:13 Basophils % (Manual) 0 % (0.0-1.8) 03/09/22 02:13 Metamyelocytes % 0 % 03/09/22 02:13 Myelocytes % 0 % 03/09/22 02:13 Promyelocytes % 0 % 03/09/22 02:13 Blast Cells % 0 % 03/09/22 02:13 Nucleated RBC % Not Reportable 03/09/22 02:13 Seg Neutrophils # 9.8 K/mm3 (1.8-7.7) H 03/08/22 12:29 Seg Neutrophils # Man 8.5 K/mm3 (1.8-7.7) H 03/09/22 02:13 Band Neutrophils # 0.0 K/mm3 03/09/22 02:13 Lymphocytes # (Manual) 1.2 K/mm3 (1.2-5.4) 03/09/22 02:13 Abs React Lymphs (Man) 0.0 K/mm3 03/09/22 02:13 Monocytes # (Manual) 0.8 K/mm3 (0.0-0.8) 03/09/22 02:13 Eosinophils # (Manual) 0.1 K/mm3 (0.0-0.4) 03/09/22 02:13 Basophils # (Manual) 0.0 K/mm3 (0.0-0.1) 03/09/22 02:13 Metamyelocytes # 0.0 K/mm3 03/09/22 02:13 Myelocytes # 0.0 K/mm3 03/09/22 02:13 Promyelocytes # 0.0 K/mm3 03/09/22 02:13 Blast Cells # 0.0 K/mm3 03/09/22 02:13 WBC Morphology Not Reportable 03/09/22 02:13 Hypersegmented Neuts Not Reportable 03/09/22 02:13 Hyposegmented Neuts Not Reportable 03/09/22 02:13 Hypogranular Neuts Not Reportable 03/09/22 02:13 Smudge Cells Not Reportable 03/09/22 02:13 Toxic Granulation Not Reportable 03/09/22 02:13 Toxic Vacuolation Not Reportable 03/09/22 02:13 Dohle Bodies Not Reportable 03/09/22 02:13 Pelger-Huet Anomaly Not Reportable 03/09/22 02:13 Marylin Rods Not Reportable 03/09/22 02:13 Platelet Estimate Consistent w auto 03/09/22 02:13 Clumped Platelets Not Reportable 03/09/22 02:13 Plt Clumps, EDTA Not Reportable 03/09/22 02:13 Large Platelets Not Reportable 03/09/22 02:13 Giant Platelets Not Reportable 03/09/22 02:13 Platelet Satelliting Not Reportable 03/09/22 02:13 Plt Morphology Comment Not Reportable 03/09/22 02:13 RBC Morphology Normal 03/09/22 02:13 Dimorphic RBCs Not Reportable 03/09/22 02:13 Polychromasia Not Reportable 03/09/22 02:13 Hypochromasia Not Reportable 03/09/22 02:13 Poikilocytosis Not Reportable 03/09/22 02:13 Anisocytosis Not Reportable 03/09/22 02:13 Microcytosis Not Reportable 03/09/22 02:13 Macrocytosis Not Reportable 03/09/22 02:13 Spherocytes Not Reportable 03/09/22 02:13 Pappenheimer Bodies Not Reportable 03/09/22 02:13 Sickle Cells Not Reportable 03/09/22 02:13 Target Cells Not Reportable 03/09/22 02:13 Tear Drop Cells Not Reportable 03/09/22 02:13 Ovalocytes Not Reportable 03/09/22 02:13 Helmet Cells Not Reportable 03/09/22 02:13 [facility]-[employer] Bradford Bodies Not Reportable 03/09/22 02:13 [place] Rings Not Reportable 03/09/22 02:13 [place] Cells Not Reportable 03/09/22 02:13 Bite Cells Not Reportable 03/09/22 02:13 Crenated Cell Not Reportable 03/09/22 02:13 Elliptocytes Not Reportable 03/09/22 02:13 Acanthocytes (Spur) Not Reportable 03/09/22 02:13 Rouleaux Not Reportable 03/09/22 02:13 Hemoglobin C Crystals Not Reportable 03/09/22 02:13 Schistocytes Not Reportable 03/09/22 02:13 Malaria parasites Not Reportable 03/09/22 02:13 Cristino Bodies Not Reportable 03/09/22 02:13 Hem Pathologist Commnt No 03/09/22 02:13 PT 15.7 Sec. (12.2-14.9) H 03/08/22 12:29 INR 1.09 (0.87-1.13) 03/08/22 12:29 Sodium 137 mmol/L (137-145) 03/11/22 03:52 Potassium 4.2 mmol/L (3.6-5.0) 03/11/22 03:52 Chloride 105.2 mmol/L (98-107) 03/11/22 03:52 Carbon Dioxide 20 mmol/L (22-30) L 03/11/22 03:52 Anion Gap 16 mmol/L 03/11/22 03:52 BUN 23 mg/dL (9-20) H 03/11/22 03:52 Creatinine 1.6 mg/dL (0.8-1.3) H 03/11/22 03:52 Estimated GFR 53 ml/min 03/11/22 03:52 BUN/Creatinine Ratio 14 % 03/11/22 03:52 Glucose 143 mg/dL (75-100) H 03/11/22 03:52 POC Glucose 82 mg/dL (70-105) 03/10/22 06:32 Lactic Acid 1.40 mmol/L (0.7-2.0) 03/08/22 12:29 Calcium 10.1 mg/dL (8.4-10.2) 03/11/22 03:52 Phosphorus 2.60 mg/dL (2.5-4.5) 03/11/22 03:52 Magnesium 2.10 mg/dL (1.7-2.3) 03/11/22 03:52 Total Bilirubin 0.30 mg/dL (0.1-1.2) 03/09/22 02:13 AST 25 units/L (5-40) 03/09/22 02:13 ALT 11 units/L (7-56) 03/09/22 02:13 Alkaline Phosphatase 83 units/L (35-129) 03/09/22 02:13 Ammonia 14.0 umol/L (25-60) L 03/08/22 12:29 Total Creatine Kinase 53 units/L (55-170) L 03/08/22 12:29 Troponin T 0.119 ng/mL (0.00-0.029) H* D 03/09/22 02:13 C-Reactive Protein 16.20 mg/dL (0.00-1.30) H 03/08/22 12:29 Total Protein 7.0 g/dL (6.3-8.2) 03/09/22 02:13 Albumin 2.5 g/dL (3.9-5) L 03/09/22 02:13 Albumin/Globulin Ratio 0.6 % 03/09/22 02:13 Triglycerides 105 mg/dL (2-149) 03/08/22 12:29 Cholesterol 136 mg/dL (50-199) 03/08/22 12:29 LDL Cholesterol Direct 76 mg/dL (50-130) 03/08/22 12:29 HDL Cholesterol 35 mg/dL (40-59) L 03/08/22 12:29 Cholesterol/HDL Ratio 3.88 % 03/08/22 12:29 PTH Intact 45.32 pg/mL (15-65) 03/11/22 03:52 Urine Color Yellow (Yellow) 03/08/22 14:38 Urine Turbidity Clear (Clear) 03/08/22 14:38 Urine pH 6.0 (5.0-7.0) 03/08/22 14:38 Ur Specific [place] 1.015 (1.003-1.030) 03/08/22 14:38 Urine Protein 30 mg/dl mg/dL (Negative) 03/08/22 14:38 Urine Glucose (UA) Negative mg/dL (Negative) 03/08/22 14:38 Urine Ketones Negative mg/dL (Negative) 03/08/22 14:38 Urine Blood 1+ (Negative) 03/08/22 14:38 Urine Nitrite Negative (Negative) 03/08/22 14:38 Ur Reducing Substances Negative (Negative) 03/08/22 14:38 Urine Bilirubin Negative (Negative) 03/08/22 14:38 Urine Urobilinogen 0.0 mg/dL (<2.0) 03/08/22 14:38 Ur Leukocyte Esterase Negative (Negative) 03/08/22 14:38 Urine WBC (Auto) 3.0 /HPF (0.0-6.0) 03/08/22 14:38 Urine RBC (Auto) 5.0 /HPF (0.0-6.0) 03/08/22 14:38 U Epithel Cells (Auto) 3.0 /HPF (0-13.0) 03/08/22 14:38 Urine Bacteria (Auto) 1+ /HPF (Negative) 03/08/22 14:38 Hyaline Casts 2 /LPF 03/08/22 14:38 Urine Mucus 1+ /HPF 03/08/22 14:38 Urine Creatinine 167.4 mg/dL (0.1-20.0) H 03/09/22 15:25 Urine Sodium 49 mmol/L 03/09/22 15:25 Salicylates < 0.3 mg/dL (2.8-20.0) L 03/08/22 12:29 Urine Opiates Screen Negative 03/08/22 14:38 Urine Methadone Screen Negative 03/08/22 14:38 Acetaminophen 5.0 ug/mL (10.0-30.0) L 03/08/22 12:29 Ur Barbiturates Screen Negative 03/08/22 14:38 Ur Phencyclidine Scrn Negative 03/08/22 14:38 Ur Amphetamines Screen Negative 03/08/22 14:38 U Benzodiazepines Scrn Negative 03/08/22 14:38 Urine Cocaine Screen Negative 03/08/22 14:38 U Marijuana (THC) Screen Positive 03/08/22 14:38 Drugs of Abuse Note Disclamer 03/08/22 14:38 Plasma/Serum Alcohol < 0.01 % (0-0.07) 03/08/22 12:29 Microbiology: Microbiology 03/08/22 12:29 Peripheral/Venous Blood Culture - Preliminary NO GROWTH AFTER 48 HOURS 03/08/22 12:29 Peripheral/Venous Blood Culture - Preliminary NO GROWTH AFTER 48 HOURS Arteaga/IV: Voiding Method Indwelling Catheter Active Medications - Current Medications Current Medications: Generic Name Dose Route Start Last Admin Trade Name Freq PRN Reason Stop Dose Admin Acetaminophen 650 mg 03/08/22 20:07 03/10/22 23:14 Acetaminophen 325 Mg Tab PO 650 mg Q6H PRN Administration Pain MILD(1-3)/Fever >100.5/[place] Albuterol 2.5 mg 03/08/22 20:07 Albuterol 2.5 Mg/3 Ml Nebu IH Q3HRT PRN Shortness Of Breath Aspirin 81 mg 03/11/22 10:00 Aspirin 81 Mg Tab Chew PO QDAY FRANCESCA Enoxaparin Sodium 90 mg 03/10/22 10:15 03/10/22 22:56 Enoxaparin 100 Mg/1 Ml Inj SUB-Q 90 mg Q12HR FRANCESCA Administration Famotidine 20 mg 03/09/22 10:00 03/10/22 11:04 Famotidine 20 Mg/2 Ml Inj IV 20 mg QDAY FRANCESCA Administration Haloperidol Lactate 5 mg 03/10/22 18:12 03/11/22 02:39 Haloperidol Lactate 5 Mg/1 Ml Inj IV 5 mg Q6H PRN Administration Agitation Amiodarone HCl 900 mg/ 500 mls @ 33.333 mls/hr 03/10/22 12:00 03/10/22 18:50 Dextrose IV 0.5 mg/min DIRECT FRANCESCA 16.66 mls/hr Titration Protocol 1 MG/MIN Metoprolol Tartrate 50 mg 03/10/22 17:49 03/10/22 22:55 Metoprolol Tartrate 25 Mg Tab PO 50 mg BID FRANCESCA Administration Morphine Sulfate 2 mg 03/08/22 20:07 Morphine 4 Mg/1 Ml Inj IV Q8H PRN Pain , Severe (7-10) Nicotine 21 mg 03/10/22 10:00 03/10/22 11:03 Nicotine 21 Mg/24 Hr Patch TD 21 mg QDAY FRANCESCA Administration Oxycodone/Acetaminophen 1 tab 03/08/22 20:07 Oxycodone /Acetaminophen 5-325mg Tab PO Q6H PRN Pain, Moderate (4-6) Sodium Chloride 10 ml 03/08/22 22:00 03/10/22 22:56 Sodium Chloride 0.9% 10 Ml Flush Syringe IV 10 ml BID FRANCESCA Administration Sodium Chloride 10 ml 03/08/22 20:07 Sodium Chloride 0.9% 10 Ml Flush Syringe IV PRN PRN LINE FLUSH Tramadol HCl 50 mg 03/08/22 20:11 Tramadol 50 Mg Tab PO Q6H PRN Pain, Moderate (4-6)
[2022-03-10] MEDS: NICOTINE 21 MG/24 HR PATCH TD SCH (11:03)
[2022-03-10] MEDS: FAMOTIDINE 20 MG/2 ML INJ IV SCH (11:04)
[2022-03-10] MEDS: METOPROLOL TARTRATE 25 MG TAB PO SCH ×2 (11:04→22:55)
[2022-03-10] MEDS: ENOXAPARIN 100 MG/1 ML INJ SUB-Q SCH ×2 (11:42→22:56)
[2022-03-10] MEDS: AMIODARONE 900 MG in DEXTROSE 5% IN WATER 482 ML IV SCH ×2 (11:54→12:59)
[2022-03-10] MEDS ORDERED: AMIODARONE 150 MG in DEXTROSE 5% IN WATER 97 ML IV ONE (12:00)
[2022-03-10] MEDS: ENOXAPARIN 80 MG/0.8 ML INJ SUB-Q SCH (12:04)
--- NOTE | 2022-03-10 12:21 | Ultrasound Report ---
ULTRASOUND RENAL INDICATION / CLINICAL INFORMATION: Acute renal failure.. COMPARISON: CT abdomen/pelvis from 08/27/2015 FINDINGS: RIGHT KIDNEY: Length = 9.7 cm. - Echogenicity: Mildly echogenic. - Parenchymal Thickness: Normal. - Hydronephrosis: None. - Cyst / Mass: Simple cysts measuring up to 3 cm in maximal dimension in the mid to upper pole. - Stones: None seen. LEFT KIDNEY: Length = 10.3 cm. - Echogenicity: Mildly echogenic. - Parenchymal Thickness: Normal. - Hydronephrosis: None. - Cyst / Mass: None. - Stones: None seen. URINARY BLADDER: Mostly collapsed with a Arteaga catheter in place. FREE FLUID: None. ADDITIONAL FINDINGS: None. IMPRESSION: 1. Simple right renal cysts. 2. Mildly echogenic appearance of the kidneys bilaterally, nonspecific but often seen with medical re nal disease. Signer Name: Beto Jensen MD Signed: 03/10/2022 12:17 PM Workstation Name: [id number]
--- NOTE | 2022-03-10 12:38 | Progress Note ---
Assessment and Plan Patient is a 67-year-old male with a reported past medical history of vascular dementia, cerebral atherosclerosis, BPH, hypertension, nicotine dependence who presented to the ED yesterday for complaint of AMS x2. Altered mental status NSTEMI suspect type II MARIE Leukocytosis A. fib?/MAT Hypertension Vascular dementia Echo 03/09/2022-EF 25 to 30%. Severe global hypokinesis of left ventricle. Moderate concentric LVH. Mild diastolic dysfunction is present impaired relaxation pattern. Moderate aortic regurgitation. No pericardial effusion Plan: Troponin is noted to be elevated and downtrending. Suspect NSTEMI type II in setting of MARIE Telemetry reviewed patient appears to be going between A. fib and MAT Will initiate IV amiodarone bolus and drip Agree with anticoagulation with Lovenox at this time Echo results noted above Due to patient's mental status though patient has decreased EF recommend conservative management at this time Continue metoprolol 25mg PO BID for rate control Will hold NATALYA and ARB due to elevated creatinine Patient seen in conjunction with Dr. Norton who agrees with this plan of care - Patient Problems (1) Multifocal atrial tachycardia Current Visit: Yes Status: Acute (2) Acute kidney injury (MARIE) with acute tubular necrosis (ATN) Current Visit: Yes Status: Acute (3) Altered mental status Current Visit: Yes Status: Acute (4) Atrial fibrillation with RVR Current Visit: Yes Status: Acute (5) CKD (chronic kidney disease) Current Visit: Yes Status: Acute (6) Cerebral atherosclerosis Current Visit: Yes Status: Acute (7) Elevated troponin Current Visit: Yes Status: Acute (8) NSTEMI (non-ST elevated myocardial infarction) Current Visit: Yes Status: Acute (9) SIRS (systemic inflammatory response syndrome) Current Visit: Yes Status: Acute (10) Vascular dementia Current Visit: Yes Status: Acute Qualifiers: Dementia behavioral disturbance: without behavioral disturbance Qualified Code(s): F01.50 - Vascular dementia without behavioral disturbance (11) Weakness Current Visit: Yes Status: Acute Subjective Date of service: 03/10/22 Interval history: Patient resting in bed in no acute distress. Patient is more awake today however still confused Patient is going between MAT and A. fib rate anywhere from 110s to 140s Objective Vital Signs Temp Pulse Pulse Pulse Resp BP Pulse Ox 03/10/22 12:00 98.6 F 118 H 105 H 110 H 21 124/91 99 03/10/22 11:04 135 H 124/91 99 03/10/22 10:00 147/96 99 03/10/22 09:00 144 H 23 156/87 98 03/10/22 08:44 99 03/10/22 08:00 98.7 F 146 H 100 H 21 144/82 99 03/10/22 07:00 109 H 24 141/76 99 03/10/22 06:00 98 H 14 151/91 98 03/10/22 05:00 108 H 16 144/94 98 03/10/22 04:00 98.9 F 117 H 13 147/91 98 03/10/22 03:14 108 H 20 100 03/10/22 03:00 118 H 21 151/86 99 03/10/22 02:00 104 H 13 151/86 100 03/10/22 01:00 103 H 22 141/84 99 03/10/22 00:00 101 H 101 H 12 144/88 99 03/09/22 23:55 98.7 F 03/09/22 23:54 105 H 03/09/22 23:46 112 H 17 144/88 100 03/09/22 23:32 108 H 13 137/76 100 03/09/22 23:30 107 H 12 144/88 100 03/09/22 23:16 121 H 15 144/88 100 03/09/22 23:00 107 H 17 137/76 100 03/09/22 22:46 101 H 14 137/76 100 03/09/22 22:30 103 H 16 137/76 100 03/09/22 22:16 105 H 17 100 03/09/22 22:00 97 H 23 131/77 99 03/09/22 21:46 112 H 14 142/69 100 03/09/22 21:30 104 H 12 142/69 100 03/09/22 21:24 100 03/09/22 21:16 96 H 23 142/69 100 03/09/22 21:00 99 H 13 142/69 100 03/09/22 20:46 103 H 23 142/69 100 03/09/22 20:30 113 H 12 142/69 100 03/09/22 20:18 99 F 03/09/22 20:16 105 H 11 L 142/69 99 03/09/22 20:00 99 H 99 H 21 138/76 99 08/03/22 19:46 94 H 12 138/76 98 03/09/22 19:30 101 H 16 138/76 99 03/09/22 19:16 111 H 17 138/76 99 03/09/22 19:00 83 19 140/80 100 03/09/22 18:46 90 13 140/80 100 03/09/22 18:30 96 H 22 140/80 100 03/09/22 18:16 96 H 19 140/80 100 03/09/22 18:00 87 24 136/80 100 03/09/22 17:46 107 H 13 136/80 100 03/09/22 17:30 111 H 15 136/80 100 03/09/22 17:16 121 H 15 136/80 100 03/09/22 17:07 124 H 03/09/22 17:06 98.1 F 03/09/22 17:00 106 H 16 135/87 100 03/09/22 16:46 102 H 17 135/87 99 03/09/22 16:30 123 H 31 H 135/87 100 03/09/22 16:16 130 H 22 135/87 100 03/09/22 16:15 110 H 18 100 03/09/22 16:00 137 H 14 141/83 100 03/09/22 15:46 124 H 24 141/83 100 03/09/22 15:30 128 H 35 H 141/83 100 03/09/22 15:16 126 H 30 H 141/83 100 03/09/22 15:00 98 H 26 H 130/91 100 03/09/22 14:46 103 H 40 H 130/91 100 03/09/22 14:30 125 H 21 130/91 100 03/09/22 14:16 116 H 20 130/91 99 03/09/22 14:00 100 H 29 H 130/91 99 03/09/22 13:46 113 H 26 H 130/91 100 03/09/22 13:30 99 H 42 H 130/91 100 03/09/22 13:16 105 H 32 H 130/91 99 03/09/22 13:00 103 H 21 129/87 100 03/09/22 12:46 102 H 21 129/87 100 03/09/22 12:37 98.7 F - Physical Examination General: No Apparent Distress HEENT: Positive: Mucus Membranes Dry Neck: Positive: trachea midline Cardiac: Positive: irregularly irregular, Tachycardia Lungs: Positive: Normal Breath Sounds Neuro: Positive: Grossly Intact Abdomen: Positive: Soft Skin: Negative: Rash, Suspicious Lesions Extremities: Present: upper extr. pulses. Absent: edema - Labs and Meds CBC 03/10/22 Range/Units 04:31 WBC 11.2 H (4.5-11.0) K/mm3 RBC 4.02 (3.65-5.03) M/mm3 Hgb 10.2 L (11.8-15.2) gm/dl Hct 32.9 L (35.5-45.6) % Plt Count 449 H (140-440) K/mm3 Comprehensive Metabolic Panel 03/10/22 Range/Units 04:31 Sodium 141 (137-145) mmol/L Potassium 4.1 (3.6-5.0) mmol/L Chloride 105.6 (98-107) mmol/L Carbon Dioxide 20 L (22-30) mmol/L BUN 28 H (9-20) mg/dL Creatinine 1.6 H (0.8-1.3) mg/dL Glucose 78 (75-100) mg/dL Calcium 9.8 (8.4-10.2) mg/dL - Imaging and Cardiology Echo: report reviewed - Telemetry EKG Rhythm: Atrial Fibrillation - EKG Supraventricular dysrhythmia: multifocal atrial tachyca, atrial fibrillation Ventricular dysrhythmias: ventricular premature com
[2022-03-10] MEDS ORDERED: LORazepam 2 MG/ML VIAL IV ONE (17:48)
--- NOTE | 2022-03-10 18:16 | Electrocardiograph Report ---
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
--- NOTE | 2022-03-10 18:17 | Electrocardiograph Report ---
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
--- NOTE | 2022-03-10 18:29 | Electrocardiograph Report ---
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
[2022-03-10] MEDS: HALOPERIDOL LACTATE 5 MG/1 ML INJ IV PRN (21:19)
[2022-03-10] MEDS: traMADol 50 MG TAB PO PRN (22:55)
[2022-03-10] MEDS: ACETAMINOPHEN 325 MG TAB PO PRN (23:14)
--- NOTE | 2022-03-11 00:53 | XRay Report ---
CHEST 1 VIEW 03/10/2022 11:45 PM INDICATION / CLINICAL INFORMATION: FEVER. COMPARISON: One view of the chest from 03/08/2022. FINDINGS: SUPPORT DEVICES: None. HEART / MEDIASTINUM: Stable. LUNGS / PLEURA: No significant pulmonary abnormality. No significant pleural effusion. No pneumothora x. ADDITIONAL FINDINGS: No significant additional findings. IMPRESSION: Stable cardiomegaly without other acute findings. Signer Name: Brian Marcelo MD Signed: 03/11/2022 12:48 AM Workstation Name: [id number]
[2022-03-11] MEDS: HALOPERIDOL LACTATE 5 MG/1 ML INJ IV PRN ×3 (02:39→21:05)
[2022-03-11 05:10] LABS: Calcium 10.1 mg/dL (8.4-10.2)
[2022-03-11] MEDS: oxyCODONE /ACETAMINOPHEN 5-325MG TAB PO PRN ×2 (08:24→21:37)
[2022-03-11] MEDS: NICOTINE 21 MG/24 HR PATCH TD SCH (09:09)
[2022-03-11] MEDS: FAMOTIDINE 20 MG/2 ML INJ IV SCH (09:09)
[2022-03-11] MEDS: ENOXAPARIN 100 MG/1 ML INJ SUB-Q SCH ×2 (09:10→21:21)
[2022-03-11] MEDS: ASPIRIN 81 MG TAB CHEW PO SCH (09:11)
[2022-03-11] MEDS: METOPROLOL TARTRATE 25 MG TAB PO SCH ×2 (09:11→21:20)
--- NOTE | 2022-03-11 12:24 | Progress Note ---
Assessment and Plan 1. Acute kidney injury: Vasomotor MARIE superimposed on CKD in the setting of A.Fib with RVR. Renal US negative. Monitor renal function. Creatinine leveled off. Avoid nephrotoxic agents. Meds dosage based on GFR. 2. FEN: Replete lytes as needed. Monitor lytes and volume status. 3. A.fib with RVR: New diagnosis. Amio. Lovenox. Metoprolol. Followed by Cards. Monitor. 4. Acute metabolic encephalopathy, POA: Monitor. 5. NSTEMI (non-ST elevated myocardial infarction): EF: 25-30%. BB. Lovenox. Followed by Cards. 6. HFrEF: EF: 25-30%. 7. Microcytic Anemia, POA: Trend. Subjective: Patient was seen and examined at the bedside. Examination: General appearance: well-developed, appears stated age, no distress HEENT: atraumatic, no icterus Neck: trachea midline Respiratory: ctab Heart: S1S2, irregular, tachycardia, no murmur Abdomen: soft, bowel sounds heard, NT Integumentary: no obvious rash Neurologic: somnolent, able to move extremities, confused Ext: no edema Subjective Date of service: 03/11/22 Objective - Vital Signs Vital signs: Vital Signs - 12hr 03/11/22 03/11/22 03/11/22 01:00 02:01 02:45 Temperature 99.1 F Pulse Rate 91 H 99 H Pulse Rate [ From Monitor] Respiratory 18 22 Rate Blood Pressure 111/99 160/97 O2 Sat by Pulse 99 100 Oximetry 03/11/22 03/11/22 03/11/22 03:00 03:29 04:00 Temperature 98 F Pulse Rate 87 109 H Pulse Rate [ From Monitor] Respiratory 25 H Rate Blood Pressure 149/85 O2 Sat by Pulse 100 Oximetry 03/11/22 03/11/22 03/11/22 04:01 05:01 06:01 Temperature Pulse Rate 119 H 91 H 102 H Pulse Rate [ From Monitor] Respiratory 30 H 26 H 29 H Rate Blood Pressure 155/105 122/80 109/85 O2 Sat by Pulse 100 98 99 Oximetry 03/11/22 03/11/22 03/11/22 07:01 08:00 08:01 Temperature 98.2 F Pulse Rate 95 H 115 H 119 H Pulse Rate [ 115 H From Monitor] Respiratory 19 22 14 Rate Blood Pressure 147/91 147/91 O2 Sat by Pulse 98 98 Oximetry 03/11/22 03/11/22 03/11/22 09:01 09:11 10:01 Temperature Pulse Rate 104 H 103 H 82 Pulse Rate [ From Monitor] Respiratory 18 14 Rate Blood Pressure 131/74 131/74 151/82 O2 Sat by Pulse Oximetry 03/11/22 11:01 Temperature Pulse Rate 88 Pulse Rate [ From Monitor] Respiratory 15 Rate Blood Pressure 149/89 O2 Sat by Pulse Oximetry - Lab 03/10/22 04:31 03/11/22 03:52 Most recent lab results Calcium 10.1 mg/dL (8.4-10.2) 03/11/22 03:52 Phosphorus 2.60 mg/dL (2.5-4.5) 03/11/22 03:52 Magnesium 2.10 mg/dL (1.7-2.3) 03/11/22 03:52 Urine Creatinine 167.4 mg/dL (0.1-20.0) H 03/09/22 15:25 Urine Sodium 49 mmol/L 03/09/22 15:25 Medications & Allergies - Medications Allergies/Adverse Reactions: Allergies lisinopril Allergy (Verified 03/11/22 15:41) Hives Home Medications: Home Medications Medication Instructions Recorded Confirmed Last Taken Type Ibuprofen [Motrin] 400 mg PO Q8H PRN #30 tablet 08/28/15 Unknown Rx Oxycodone HCl/Acetaminophen 1 each PO Q6HR PRN #20 tablet 08/28/15 Unknown Rx [Percocet 10/325 mg] Promethazine [Phenergan TAB] 25 mg PO Q6HR PRN #20 tab 08/28/15 Unknown Rx Tamsulosin [Flomax] 0.4 mg PO QDAY #7 cap 08/28/15 Unknown Rx amLODIPine [Norvasc] 10 mg PO DAILY #30 tab 08/28/15 Unknown Rx AtorvaSTATin [Lipitor] 40 mg PO QHS 03/11/22 03/11/22 Unknown History Metoprolol Succinate [Toprol Xl] 50 mg PO DAILY 03/11/22 03/11/22 Unknown Histor y Varenicline Tartrate [Chantix] 1 mg PO BID 03/11/22 03/11/22 Unknown History hydroCHLOROthiazide 12.5 mg PO DAILY 03/11/22 03/11/22 Unknown History [Hydrochlorothiazide] metHOTREXate sodium [Methotrexate] 2.5 mg PO 1XW 03/11/22 03/11/22 Unknown History Active Medications: Generic Name Dose Route Start Last Admin Trade Name Freq PRN Reason Stop Dose Admin Acetaminophen 650 mg 03/08/22 20:07 03/10/22 23:14 Acetaminophen 325 Mg Tab PO 650 mg Q6H PRN Administration Pain MILD(1-3)/Fever >100.5/HILTON Albuterol 2.5 mg 03/08/22 20:07 Albuterol 2.5 Mg/3 Ml Nebu IH Q3HRT PRN Shortness Of Breath Amiodarone HCl 200 mg 03/11/22 22:00 Amiodarone 200 Mg Tab PO BID FRANCESCA Aspirin 81 mg 03/11/22 10:00 03/11/22 09:11 Aspirin 81 Mg Tab Chew PO 81 mg QDAY FRANCESCA Administration Enoxaparin Sodium 90 mg 03/10/22 10:15 03/11/22 09:10 Enoxaparin 100 Mg/1 Ml Inj SUB-Q 90 mg Q12HR FRANCESCA Administration Famotidine 20 mg 03/09/22 10:00 03/11/22 09:09 Famotidine 20 Mg/2 Ml Inj IV 20 mg QDAY FRANCESCA Administration Haloperidol Lactate 5 mg 03/10/22 18:12 03/11/22 08:24 Haloperidol Lactate 5 Mg/1 Ml Inj IV 5 mg Q6H PRN Administration Agitation Metoprolol Tartrate 50 mg 03/10/22 17:49 03/11/22 09:11 Metoprolol Tartrate 25 Mg Tab PO 50 mg BID FRANCESCA Administration Morphine Sulfate 2 mg 03/08/22 20:07 Morphine 4 Mg/1 Ml Inj IV Q8H PRN Pain , Severe (7-10) Nicotine 21 mg 03/10/22 10:00 03/11/22 09:09 Nicotine 21 Mg/24 Hr Patch TD 21 mg QDAY FRANCESCA Administration Oxycodone/Acetaminophen 1 tab 03/08/22 20:07 03/11/22 08:24 Oxycodone /Acetaminophen 5-325mg Tab PO 1 tab Q6H PRN Administration Pain, Moderate (4-6) Sodium Chloride 10 ml 03/08/22 22:00 03/11/22 09:10 Sodium Chloride 0.9% 10 Ml Flush Syringe IV 10 ml BID FRANCESCA Administration Sodium Chloride 10 ml 03/08/22 20:07 Sodium Chloride 0.9% 10 Ml Flush Syringe IV PRN PRN LINE FLUSH Tramadol HCl 50 mg 03/08/22 20:11 Tramadol 50 Mg Tab PO Q6H PRN Pain, Moderate (4-6)
--- NOTE | 2022-03-11 12:47 | Progress Note ---
<ANTONIO PENNY - Last Filed: 03/11/22 19:24> Assessment and Plan Assessment and plan: This is a 67-year-old male with known past medical history of vascular dementia, cerebral atherosclerosis, BPH, gastric bypass, renal insufficency, HTN, thoracic aortic aneurysm without rupture, nicotine dependence, benign lungs nodules s/p LDCT, RA, and debility admitted for NSTEMI, AFib with RVR, and MARIE Hospital Course to Date: 03/09: Stable on RA, denied ay pain nor any discomfort at this time. SR with PACs noted on the monitor, VSS. Renal function mild improvement in renal function this am. Continue schedule BB for rate control and therapeutic Lovenox subQ. 2D echo pending and Cardiology consulted. Nephrology is also following. 03/10: More awake today but confused, remains stable on RA. ST with frequent PACs, VSS. Per cardio patient is most likely in MATs. 2D echo still pending, continue BB. Renal function is stable, continue current care per nephro. Nicotine patch added for increase cigarettes urges. Patient's brother provided contact for 3 providers who patient have seen in the past, medical records requested. 03/11: On amiodarone gtt per cardio. Remains in ST with PACs on the monitor, VSS. Plan to switch amio gtt, continue BB. Received records from patient's providers, medical history updated. Per records patient was on Wellbutrin for tobacco dependence but was switched to Chantix in August of this year and patient has not been seen by any of these providers since August 2021. Mental health/spych was also consulted for further eval and treat. Assessment and Plan #NSTEMI (non-ST elevated myocardial infarction) #New Onset Atrial Fibrillation with RVR #Hypertension - Presented with AMS, found in AFib with RVR in the ED with elevated troponin - No report of previous Afib history, most likely new onset - Troponin downtrending - Per patient's brother patient sees a PCP in [place], however patient has been refusing to go to the doctor - s/p Cardizem gtt - Cardiology consulted, appreciate recommendations - Patient is ST with PACs on the monitor. Per cardio most likely MATs. Patient denied any chest pain, VSS - On Amiodarone gtt, plan to switch to PO today - Continue BB and therapeutic Lovenox - 2D Echo noted, EF 25-30% - Continue blood pressure monitor per protocol - Maintain SBP less than 160 #Acute kidney injury(MARIE) - Baseline renal function is unknown, most likely prerenal secondary to above - Renal function remains stable - Neprology consulted, appreciated recommendations - Strict intake and output - Avoid nephrotoxic medications; Renally dose medications - Monitor and replace electrolytes as needed #SIRS (Systemic Inflammatory Response Syndrome) - Presented with leukocytosis and tachycardia, but afebrile - X1 dose of Empiric IV antibiotic given in the ED - UA unremakarble, Blood cultures with NGTD - Patient remains afebrile, leukocytosis improved - Will continue to monitor for now - F/u on cultures #Acute Metabolic Encephalopathy #Vascular Dementia - Presented with increased weakness and decreased responsiveness over the past 1 week - Probably secondary to above - Mentation improved this am, still with periods of confusion - Verbal prompting, verbal redirection - Avoid benzodiazepine to reduce the possibility of delirium - Maintenance of sleep-wake cycle #Severe Arthritis #Debility - Supportive measures - PRN analgesia for pain control - PT/OT consulted #Nicotine Dependence - Per patient he smoke at least a pack a day - Was initially on wellbutrin at home, but was switched to Chantix back in August - smoking cessation education provided. Patient verbalized understanding and agreed with the info provided - Nicotine qDay - Mental/Psych consulted for further eval #GI/DVT Prophylaxis - PPI- Pepcid - Lovenox SubQ - SCDs bilateral lower extremities while in bed, #Advance Care Planning - Disease education data, care plan, diagnoses, and prognosis were discussed with patient and patient's brother at the bedside. Patient is a FULL code. They acknowledged understanding and agreed with current care plan. The high probability of a clinically significant, sudden or life threatening deterioration of the [multiple] system(s) required my full and direct attention, intervention and personal management. The aggregate critical care time was [60] minutes. This time is in addition to time spent performing reported procedures but includes the following: [x] Data Review and interpretation [x] Patient assessment and monitoring of vital signs [x] Documentation [x] Medication orders and management Disposition Plan: IMCU Total Time Spent with Patient (Minutes): 60 History Interval history: Patient seen and examined at the bedside. Awake and answering all questions, however patient is not appropriately. Very restless in bed, wanting to smoke. In ST with PAcs on the monitor, remains on amiodarone gtt, VSS. Hospitalist Physical - Physical exam Narrative exam: General appearance: Present: no acute distress, well-nourished, obese - EENT Eyes: Present: PERRL ENT: hearing intact - Neck Neck: Present: normal ROM - Respiratory Respiratory effort: normal Respiratory: bilateral: diminished - Cardiovascular Rhythm: regularly irregular Heart Sounds: Present: S1 & S2 - Extremities Extremities: no ischemia, pulses intact, pulses symmetrical Extremity abnormal: edema - Peripheral Assessment Generalized Edema Type: Non-pitting Edema Degree: 1+ Capillary Refill: < 3 seconds Skin Temperature: Warm Peripheral Pulses: within normal limits - Abdominal General gastrointestinal: soft, non-distended, normal bowel sounds - Integumentary Integumentary: Present: clear, warm, dry - Psychiatric Psychiatric: cooperative, agitated, other (Awake but confused) - Neurologic Neurologic: moves all extremities, other (Awake but confused, following commands) - Allied Health Allied health notes reviewed: nursing, case management - Constitutional Vitals: Temp Pulse Resp BP Pulse Ox 98.2 F 88 15 149/89 98 03/11/22 08:00 03/11/22 11:01 03/11/22 11:01 03/11/22 11:01 03/11/22 08:00 HEART Score - HEART Score Troponin: Troponin T 0.119 ng/mL (0.00-0.029) H* D 03/09/22 02:13 Results - Labs CBC & Chem 7: 03/10/22 04:31 03/11/22 03:52 Labs: Laboratory Last Values WBC 11.2 K/mm3 (4.5-11.0) H 03/10/22 04:31 RBC 4.02 M/mm3 (3.65-5.03) 03/10/22 04:31 Hgb 10.2 gm/dl (11.8-15.2) L 03/10/22 04:31 Hct 32.9 % (35.5-45.6) L 03/10/22 04:31 MCV 82 fl (84-94) L 03/10/22 04:31 MCH 25 pg (28-32) L 03/10/22 04:31 MCHC 31 % (32-34) L 03/10/22 04:31 RDW 16.6 % (13.2-15.2) H 03/10/22 04:31 Plt Count 449 K/mm3 (140-440) H 03/10/22 04:31 Lymph % (Auto) 9.0 % (13.4-35.0) L 03/08/22 12:29 Bond % (Auto) 11.2 % (0.0-7.3) H 03/08/22 12:29 Eos % (Auto) 1.9 % (0.0-4.3) 03/08/22 12:29 Baso % (Auto) 0.9 % (0.0-1.8) 03/08/22 12:29 Lymph # (Auto) 1.1 K/mm3 (1.2-5.4) L 03/08/22 12:29 Bond # (Auto) 1.4 K/mm3 (0.0-0.8) H 03/08/22 12:29 Eos # (Auto) 0.2 K/mm3 (0.0-0.4) 03/08/22 12:29 Baso # (Auto) 0.1 K/mm3 (0.0-0.1) 03/08/22 12:29 Add Manual Diff Complete 03/09/22 02:13 Total Counted 100 03/09/22 02:13 Seg Neutrophils % 77.0 % (40.0-70.0) H 03/08/22 12:29 Seg Neuts % (Manual) 80.0 % (40.0-70.0) H 03/09/22 02:13 Band Neutrophils % 0 % 03/09/22 02:13 Lymphocytes % (Manual) 11.0 % (13.4-35.0) L 03/09/22 02:13 Reactive Lymphs % (Man) 0 % 03/09/22 02:13 Monocytes % (Manual) 8.0 % (0.0-7.3) H 03/09/22 02:13 Eosinophils % (Manual) 1.0 % (0.0-4.3) 03/09/22 02:13 Basophils % (Manual) 0 % (0.0-1.8) 03/09/22 02:13 Metamyelocytes % 0 % 03/09/22 02:13 Myelocytes % 0 % 03/09/22 02:13 Promyelocytes % 0 % 03/09/22 02:13 Blast Cells % 0 % 03/09/22 02:13 Nucleated RBC % Not Reportable 03/09/22 02:13 Seg Neutrophils # 9.8 K/mm3 (1.8-7.7) H 03/08/22 12:29 Seg Neutrophils # Man 8.5 K/mm3 (1.8-7.7) H 03/09/22 02:13 Band Neutrophils # 0.0 K/mm3 03/09/22 02:13 Lymphocytes # (Manual) 1.2 K/mm3 (1.2-5.4) 03/09/22 02:13 Abs React Lymphs (Man) 0.0 K/mm3 03/09/22 02:13 Monocytes # (Manual) 0.8 K/mm3 (0.0-0.8) 03/09/22 02:13 Eosinophils # (Manual) 0.1 K/mm3 (0.0-0.4) 03/09/22 02:13 Basophils # (Manual) 0.0 K/mm3 (0.0-0.1) 03/09/22 02:13 Metamyelocytes # 0.0 K/mm3 03/09/22 02:13 Myelocytes # 0.0 K/mm3 03/09/22 02:13 Promyelocytes # 0.0 K/mm3 03/09/22 02:13 Blast Cells # 0.0 K/mm3 03/09/22 02:13 WBC Morphology Not Reportable 03/09/22 02:13 Hypersegmented Neuts Not Reportable 03/09/22 02:13 Hyposegmented Neuts Not Reportable 03/09/22 02:13 Hypogranular Neuts Not Reportable 03/09/22 02:13 Smudge Cells Not Reportable 03/09/22 02:13 Toxic Granulation Not Reportable 03/09/22 02:13 Toxic Vacuolation Not Reportable 03/09/22 02:13 Dohle Bodies Not Reportable 03/09/22 02:13 Pelger-Huet Anomaly Not Reportable 03/09/22 02:13 Marylin Rods Not Reportable 03/09/22 02:13 Platelet Estimate Consistent w auto 03/09/22 02:13 Clumped Platelets Not Reportable 03/09/22 02:13 Plt Clumps, EDTA Not Reportable 03/09/22 02:13 Large Platelets Not Reportable 03/09/22 02:13 Giant Platelets Not Reportable 03/09/22 02:13 Platelet Satelliting Not Reportable 03/09/22 02:13 Plt Morphology Comment Not Reportable 03/09/22 02:13 RBC Morphology Normal 03/09/22 02:13 Dimorphic RBCs Not Reportable 03/09/22 02:13 Polychromasia Not Reportable 03/09/22 02:13 Hypochromasia Not Reportable 03/09/22 02:13 Poikilocytosis Not Reportable 03/09/22 02:13 Anisocytosis Not Reportable 03/09/22 02:13 Microcytosis Not Reportable 03/09/22 02:13 Macrocytosis Not Reportable 03/09/22 02:13 Spherocytes Not Reportable 03/09/22 02:13 Pappenheimer Bodies Not Reportable 03/09/22 02:13 Sickle Cells Not Reportable 03/09/22 02:13 Target Cells Not Reportable 03/09/22 02:13 Tear Drop Cells Not Reportable 03/09/22 02:13 Ovalocytes Not Reportable 03/09/22 02:13 Helmet Cells Not Reportable 03/09/22 02:13 [place] Bodies Not Reportable 03/09/22 02:13 [place] Rings Not Reportable 03/09/22 02:13 Damari Cells Not Reportable 03/09/22 02:13 Bite Cells Not Reportable 03/09/22 02:13 Crenated Cell Not Reportable 03/09/22 02:13 Elliptocytes Not Reportable 03/09/22 02:13 Acanthocytes (Spur) Not Reportable 03/09/22 02:13 Rouleaux Not Reportable 03/09/22 02:13 Hemoglobin C Crystals Not Reportable 03/09/22 02:13 Schistocytes Not Reportable 03/09/22 02:13 Malaria parasites Not Reportable 03/09/22 02:13 Cristino Bodies Not Reportable 03/09/22 02:13 Hem Pathologist Commnt No 03/09/22 02:13 PT 15.7 Sec. (12.2-14.9) H 03/08/22 12:29 INR 1.09 (0.87-1.13) 03/08/22 12:29 Sodium 137 mmol/L (137-145) 03/11/22 03:52 Potassium 4.2 mmol/L (3.6-5.0) 03/11/22 03:52 Chloride 105.2 mmol/L (98-107) 03/11/22 03:52 Carbon Dioxide 20 mmol/L (22-30) L 03/11/22 03:52 Anion Gap 16 mmol/L 03/11/22 03:52 BUN 23 mg/dL (9-20) H 03/11/22 03:52 Creatinine 1.6 mg/dL (0.8-1.3) H 03/11/22 03:52 Estimated GFR 53 ml/min 03/11/22 03:52 BUN/Creatinine Ratio 14 % 03/11/22 03:52 Glucose 143 mg/dL (75-100) H 03/11/22 03:52 POC Glucose 82 mg/dL (70-105) 03/10/22 06:32 Lactic Acid 1.40 mmol/L (0.7-2.0) 03/08/22 12:29 Calcium 10.1 mg/dL (8.4-10.2) 03/11/22 03:52 Phosphorus 2.60 mg/dL (2.5-4.5) 03/11/22 03:52 Magnesium 2.10 mg/dL (1.7-2.3) 03/11/22 03:52 Total Bilirubin 0.30 mg/dL (0.1-1.2) 03/09/22 02:13 AST 25 units/L (5-40) 03/09/22 02:13 ALT 11 units/L (7-56) 03/09/22 02:13 Alkaline Phosphatase 83 units/L (35-129) 03/09/22 02:13 Ammonia 14.0 umol/L (25-60) L 03/08/22 12:29 Total Creatine Kinase 53 units/L (55-170) L 03/08/22 12:29 Troponin T 0.119 ng/mL (0.00-0.029) H* D 03/09/22 02:13 C-Reactive Protein 16.20 mg/dL (0.00-1.30) H 03/08/22 12:29 Total Protein 7.0 g/dL (6.3-8.2) 03/09/22 02:13 Albumin 2.5 g/dL (3.9-5) L 03/09/22 02:13 Albumin/Globulin Ratio 0.6 % 03/09/22 02:13 Triglycerides 105 mg/dL (2-149) 03/08/22 12:29 Cholesterol 136 mg/dL (50-199) 03/08/22 12:29 LDL Cholesterol Direct 76 mg/dL (50-130) 03/08/22 12:29 HDL Cholesterol 35 mg/dL (40-59) L 03/08/22 12:29 Cholesterol/HDL Ratio 3.88 % 03/08/22 12:29 PTH Intact 45.32 pg/mL (15-65) 03/11/22 03:52 Urine Color Yellow (Yellow) 03/08/22 14:38 Urine Turbidity Clear (Clear) 03/08/22 14:38 Urine pH 6.0 (5.0-7.0) 03/08/22 14:38 Ur Specific [place] 1.015 (1.003-1.030) 03/08/22 14:38 Urine Protein 30 mg/dl mg/dL (Negative) 03/08/22 14:38 Urine Glucose (UA) Negative mg/dL (Negative) 03/08/22 14:38 Urine Ketones Negative mg/dL (Negative) 03/08/22 14:38 Urine Blood 1+ (Negative) 03/08/22 14:38 Urine Nitrite Negative (Negative) 03/08/22 14:38 Ur Reducing Substances Negative (Negative) 03/08/22 14:38 Urine Bilirubin Negative (Negative) 03/08/22 14:38 Urine Urobilinogen 0.0 mg/dL (<2.0) 03/08/22 14:38 Ur Leukocyte Esterase Negative (Negative) 03/08/22 14:38 Urine WBC (Auto) 3.0 /HPF (0.0-6.0) 03/08/22 14:38 Urine RBC (Auto) 5.0 /HPF (0.0-6.0) 03/08/22 14:38 U Epithel Cells (Auto) 3.0 /HPF (0-13.0) 03/08/22 14:38 Urine Bacteria (Auto) 1+ /HPF (Negative) 03/08/22 14:38 Hyaline Casts 2 /LPF 03/08/22 14:38 Urine Mucus 1+ /HPF 03/08/22 14:38 Urine Creatinine 167.4 mg/dL (0.1-20.0) H 03/09/22 15:25 Urine Sodium 49 mmol/L 03/09/22 15:25 Salicylates < 0.3 mg/dL (2.8-20.0) L 03/08/22 12:29 Urine Opiates Screen Negative 03/08/22 14:38 Urine Methadone Screen Negative 03/08/22 14:38 Acetaminophen 5.0 ug/mL (10.0-30.0) L 03/08/22 12:29 Ur Barbiturates Screen Negative 03/08/22 14:38 Ur Phencyclidine Scrn Negative 03/08/22 14:38 Ur Amphetamines Screen Negative 03/08/22 14:38 U Benzodiazepines Scrn Negative 03/08/22 14:38 Urine Cocaine Screen Negative 03/08/22 14:38 U Marijuana (THC) Screen Positive 03/08/22 14:38 Drugs of Abuse Note Disclamer 03/08/22 14:38 Plasma/Serum Alcohol < 0.01 % (0-0.07) 03/08/22 12:29 Microbiology: Microbiology 03/08/22 12:29 Peripheral/Venous Blood Culture - Preliminary NO GROWTH AFTER 48 HOURS 03/08/22 12:29 Peripheral/Venous Blood Culture - Preliminary NO GROWTH AFTER 48 HOURS Arteaga/IV: Voiding Method Indwelling Catheter Active Medications - Current Medications Current Medications: Generic Name Dose Route Start Last Admin Trade Name Freq PRN Reason Stop Dose Admin Acetaminophen 650 mg 03/08/22 20:07 03/10/22 23:14 Acetaminophen 325 Mg Tab PO 650 mg Q6H PRN Administration Pain MILD(1-3)/Fever >100.5/[place]ILTON Albuterol 2.5 mg 03/08/22 20:07 Albuterol 2.5 Mg/3 Ml Nebu IH Q3HRT PRN Shortness Of Breath Amiodarone HCl 200 mg 03/11/22 22:00 Amiodarone 200 Mg Tab PO BID FRANCESCA Aspirin 81 mg 03/11/22 10:00 03/11/22 09:11 Aspirin 81 Mg Tab Chew PO 81 mg QDAY FRANCESCA Administration Enoxaparin Sodium 90 mg 03/10/22 10:15 03/11/22 09:10 Enoxaparin 100 Mg/1 Ml Inj SUB-Q 90 mg Q12HR FRANCESCA Administration Famotidine 20 mg 03/09/22 10:00 03/11/22 09:09 Famotidine 20 Mg/2 Ml Inj IV 20 mg QDAY FRANCESCA Administration Haloperidol Lactate 5 mg 03/10/22 18:12 03/11/22 08:24 Haloperidol Lactate 5 Mg/1 Ml Inj IV 5 mg Q6H PRN Administration Agitation Metoprolol Tartrate 50 mg 03/10/22 17:49 03/11/22 09:11 Metoprolol Tartrate 25 Mg Tab PO 50 mg BID FRANCESCA Administration Morphine Sulfate 2 mg 03/08/22 20:07 Morphine 4 Mg/1 Ml Inj IV Q8H PRN Pain , Severe (7-10) Nicotine 21 mg 03/10/22 10:00 03/11/22 09:09 Nicotine 21 Mg/24 Hr Patch TD 21 mg QDAY FRANCESCA Administration Oxycodone/Acetaminophen 1 tab 03/08/22 20:07 03/11/22 08:24 Oxycodone /Acetaminophen 5-325mg Tab PO 1 tab Q6H PRN Administration Pain, Moderate (4-6) Sodium Chloride 10 ml 03/08/22 22:00 03/11/22 09:10 Sodium Chloride 0.9% 10 Ml Flush Syringe IV 10 ml BID FRANCESCA Administration Sodium Chloride 10 ml 03/08/22 20:07 Sodium Chloride 0.9% 10 Ml Flush Syringe IV PRN PRN LINE FLUSH Tramadol HCl 50 mg 03/08/22 20:11 Tramadol 50 Mg Tab PO Q6H PRN Pain, Moderate (4-6) <ROSALIO RUSSELL - Last Filed: 03/12/22 07:26> Assessment and Plan Assessment and plan: I saw and evaluated the patient. I agree with the findings and the plan of care as documented in the Nurse Practitioner's~note, with the following corrections and additions. Hospitalist Physical - Constitutional Vitals: Temp Pulse Resp BP Pulse Ox 98.1 F 106 H 19 129/83 98 03/12/22 05:00 03/12/22 06:01 03/12/22 06:01 03/12/22 06:01 03/12/22 06:01 HEART Score - HEART Score Troponin: Troponin T 0.119 ng/mL (0.00-0.029) H* D 03/09/22 02:13 Results - Labs CBC & Chem 7: 03/12/22 04:41 03/12/22 04:41 Labs: Laboratory Last Values WBC 19.3 K/mm3 (4.5-11.0) H 03/12/22 04:41 RBC 4.08 M/mm3 (3.65-5.03) 03/12/22 04:41 Hgb 10.5 gm/dl (11.8-15.2) L 03/12/22 04:41 Hct 33.0 % (35.5-45.6) L 03/12/22 04:41 MCV 81 fl (84-94) L 03/12/22 04:41 MCH 26 pg (28-32) L 03/12/22 04:41 MCHC 32 % (32-34) 03/12/22 04:41 RDW 16.5 % (13.2-15.2) H 03/12/22 04:41 Plt Count 456 K/mm3 (140-440) H 03/12/22 04:41 Lymph % (Auto) 9.0 % (13.4-35.0) L 03/08/22 12:29 Bond % (Auto) 11.2 % (0.0-7.3) H 03/08/22 12:29 Eos % (Auto) 1.9 % (0.0-4.3) 03/08/22 12:29 Baso % (Auto) 0.9 % (0.0-1.8) 03/08/22 12:29 Lymph # (Auto) 1.1 K/mm3 (1.2-5.4) L 03/08/22 12:29 Bond # (Auto) 1.4 K/mm3 (0.0-0.8) H 03/08/22 12:29 Eos # (Auto) 0.2 K/mm3 (0.0-0.4) 03/08/22 12:29 Baso # (Auto) 0.1 K/mm3 (0.0-0.1) 03/08/22 12:29 Add Manual Diff Complete 03/09/22 02:13 Total Counted 100 03/09/22 02:13 Seg Neutrophils % 77.0 % (40.0-70.0) H 03/08/22 12:29 Seg Neuts % (Manual) 80.0 % (40.0-70.0) H 03/09/22 02:13 Band Neutrophils % 0 % 03/09/22 02:13 Lymphocytes % (Manual) 11.0 % (13.4-35.0) L 03/09/22 02:13 Reactive Lymphs % (Man) 0 % 03/09/22 02:13 Monocytes % (Manual) 8.0 % (0.0-7.3) H 03/09/22 02:13 Eosinophils % (Manual) 1.0 % (0.0-4.3) 03/09/22 02:13 Basophils % (Manual) 0 % (0.0-1.8) 03/09/22 02:13 Metamyelocytes % 0 % 03/09/22 02:13 Myelocytes % 0 % 03/09/22 02:13 Promyelocytes % 0 % 03/09/22 02:13 Blast Cells % 0 % 03/09/22 02:13 Nucleated RBC % Not Reportable 03/09/22 02:13 Seg Neutrophils # 9.8 K/mm3 (1.8-7.7) H 03/08/22 12:29 Seg Neutrophils # Man 8.5 K/mm3 (1.8-7.7) H 03/09/22 02:13 Band Neutrophils # 0.0 K/mm3 03/09/22 02:13 Lymphocytes # (Manual) 1.2 K/mm3 (1.2-5.4) 03/09/22 02:13 Abs React Lymphs (Man) 0.0 K/mm3 03/09/22 02:13 Monocytes # (Manual) 0.8 K/mm3 (0.0-0.8) 03/09/22 02:13 Eosinophils # (Manual) 0.1 K/mm3 (0.0-0.4) 03/09/22 02:13 Basophils # (Manual) 0.0 K/mm3 (0.0-0.1) 03/09/22 02:13 Metamyelocytes # 0.0 K/mm3 03/09/22 02:13 Myelocytes # 0.0 K/mm3 03/09/22 02:13 Promyelocytes # 0.0 K/mm3 03/09/22 02:13 Blast Cells # 0.0 K/mm3 03/09/22 02:13 WBC Morphology Not Reportable 03/09/22 02:13 Hypersegmented Neuts Not Reportable 03/09/22 02:13 Hyposegmented Neuts Not Reportable 03/09/22 02:13 Hypogranular Neuts Not Reportable 03/09/22 02:13 Smudge Cells Not Reportable 03/09/22 02:13 Toxic Granulation Not Reportable 03/09/22 02:13 Toxic Vacuolation Not Reportable 03/09/22 02:13 Dohle Bodies Not Reportable 03/09/22 02:13 Pelger-Huet Anomaly Not Reportable 03/09/22 02:13 Marylin Rods Not Reportable 03/09/22 02:13 Platelet Estimate Consistent w auto 03/09/22 02:13 Clumped Platelets Not Reportable 03/09/22 02:13 Plt Clumps, EDTA Not Reportable 03/09/22 02:13 Large Platelets Not Reportable 03/09/22 02:13 Giant Platelets Not Reportable 03/09/22 02:13 Platelet Satelliting Not Reportable 03/09/22 02:13 Plt Morphology Comment Not Reportable 03/09/22 02:13 RBC Morphology Normal 03/09/22 02:13 Dimorphic RBCs Not Reportable 03/09/22 02:13 Polychromasia Not Reportable 03/09/22 02:13 Hypochromasia Not Reportable 03/09/22 02:13 Poikilocytosis Not Reportable 03/09/22 02:13 Anisocytosis Not Reportable 03/09/22 02:13 Microcytosis Not Reportable 03/09/22 02:13 Macrocytosis Not Reportable 03/09/22 02:13 Spherocytes Not Reportable 03/09/22 02:13 Pappenheimer Bodies Not Reportable 03/09/22 02:13 Sickle Cells Not Reportable 03/09/22 02:13 Target Cells Not Reportable 03/09/22 02:13 Tear Drop Cells Not Reportable 03/09/22 02:13 Ovalocytes Not Reportable 03/09/22 02:13 Helmet Cells Not Reportable 03/09/22 02:13 [place] Bodies Not Reportable 03/09/22 02:13 [place] Rings Not Reportable 03/09/22 02:13 Damari Cells Not Reportable 03/09/22 02:13 Bite Cells Not Reportable 03/09/22 02:13 Crenated Cell Not Reportable 03/09/22 02:13 Elliptocytes Not Reportable 03/09/22 02:13 Acanthocytes (Spur) Not Reportable 03/09/22 02:13 Rouleaux Not Reportable 03/09/22 02:13 Hemoglobin C Crystals Not Reportable 03/09/22 02:13 Schistocytes Not Reportable 03/09/22 02:13 Malaria parasites Not Reportable 03/09/22 02:13 Cristino Bodies Not Reportable 03/09/22 02:13 Hem Pathologist Commnt No 03/09/22 02:13 PT 15.7 Sec. (12.2-14.9) H 03/08/22 12:29 INR 1.09 (0.87-1.13) 03/08/22 12:29 Sodium 137 mmol/L (137-145) 03/12/22 04:41 Potassium 4.8 mmol/L (3.6-5.0) 03/12/22 04:41 Chloride 104.1 mmol/L (98-107) 03/12/22 04:41 Carbon Dioxide 20 mmol/L (22-30) L 03/12/22 04:41 Anion Gap 18 mmol/L 03/12/22 04:41 BUN 21 mg/dL (9-20) H 03/12/22 04:41 Creatinine 1.6 mg/dL (0.8-1.3) H 03/12/22 04:41 Estimated GFR 53 ml/min 03/12/22 04:41 BUN/Creatinine Ratio 13 % 03/12/22 04:41 Glucose 177 mg/dL (75-100) H 03/12/22 04:41 POC Glucose 82 mg/dL (70-105) 03/10/22 06:32 Lactic Acid 1.40 mmol/L (0.7-2.0) 03/08/22 12:29 Calcium 10.0 mg/dL (8.4-10.2) 03/12/22 04:41 Phosphorus 2.60 mg/dL (2.5-4.5) 03/11/22 03:52 Magnesium 2.10 mg/dL (1.7-2.3) 03/11/22 03:52 Total Bilirubin 0.30 mg/dL (0.1-1.2) 03/09/22 02:13 AST 25 units/L (5-40) 03/09/22 02:13 ALT 11 units/L (7-56) 03/09/22 02:13 Alkaline Phosphatase 83 units/L (35-129) 03/09/22 02:13 Ammonia 14.0 umol/L (25-60) L 03/08/22 12:29 Total Creatine Kinase 53 units/L (55-170) L 03/08/22 12:29 Troponin T 0.119 ng/mL (0.00-0.029) H* D 03/09/22 02:13 C-Reactive Protein 16.20 mg/dL (0.00-1.30) H 03/08/22 12:29 Total Protein 7.0 g/dL (6.3-8.2) 03/09/22 02:13 Albumin 2.5 g/dL (3.9-5) L 03/09/22 02:13 Albumin/Globulin Ratio 0.6 % 03/09/22 02:13 Triglycerides 105 mg/dL (2-149) 03/08/22 12:29 Cholesterol 136 mg/dL (50-199) 03/08/22 12:29 LDL Cholesterol Direct 76 mg/dL (50-130) 03/08/22 12:29 HDL Cholesterol 35 mg/dL (40-59) L 03/08/22 12:29 Cholesterol/HDL Ratio 3.88 % 03/08/22 12:29 PTH Intact 45.32 pg/mL (15-65) 03/11/22 03:52 Urine Color Yellow (Yellow) 03/08/22 14:38 Urine Turbidity Clear (Clear) 03/08/22 14:38 Urine pH 6.0 (5.0-7.0) 03/08/22 14:38 Ur Specific [place] 1.015 (1.003-1.030) 03/08/22 14:38 Urine Protein 30 mg/dl mg/dL (Negative) 03/08/22 14:38 Urine Glucose (UA) Negative mg/dL (Negative) 03/08/22 14:38 Urine Ketones Negative mg/dL (Negative) 03/08/22 14:38 Urine Blood 1+ (Negative) 03/08/22 14:38 Urine Nitrite Negative (Negative) 03/08/22 14:38 Ur Reducing Substances Negative (Negative) 03/08/22 14:38 Urine Bilirubin Negative (Negative) 03/08/22 14:38 Urine Urobilinogen 0.0 mg/dL (<2.0) 03/08/22 14:38 Ur Leukocyte Esterase Negative (Negative) 03/08/22 14:38 Urine WBC (Auto) 3.0 /HPF (0.0-6.0) 03/08/22 14:38 Urine RBC (Auto) 5.0 /HPF (0.0-6.0) 03/08/22 14:38 U Epithel Cells (Auto) 3.0 /HPF (0-13.0) 03/08/22 14:38 Urine Bacteria (Auto) 1+ /HPF (Negative) 03/08/22 14:38 Hyaline Casts 2 /LPF 03/08/22 14:38 Urine Mucus 1+ /HPF 03/08/22 14:38 Urine Creatinine 167.4 mg/dL (0.1-20.0) H 03/09/22 15:25 Urine Sodium 49 mmol/L 03/09/22 15:25 Salicylates < 0.3 mg/dL (2.8-20.0) L 03/08/22 12:29 Urine Opiates Screen Negative 03/08/22 14:38 Urine Methadone Screen Negative 03/08/22 14:38 Acetaminophen 5.0 ug/mL (10.0-30.0) L 03/08/22 12:29 Ur Barbiturates Screen Negative 03/08/22 14:38 Ur Phencyclidine Scrn Negative 03/08/22 14:38 Ur Amphetamines Screen Negative 03/08/22 14:38 U Benzodiazepines Scrn Negative 03/08/22 14:38 Urine Cocaine Screen Negative 03/08/22 14:38 U Marijuana (THC) Screen Positive 03/08/22 14:38 Drugs of Abuse Note Disclamer 03/08/22 14:38 Plasma/Serum Alcohol < 0.01 % (0-0.07) 03/08/22 12:29 Microbiology: Microbiology 03/08/22 12:29 Peripheral/Venous Blood Culture - Preliminary NO GROWTH AFTER 72 HOURS 03/08/22 12:29 Peripheral/Venous Blood Culture - Preliminary NO GROWTH AFTER 72 HOURS [place]/IV: Voiding Method Indwelling Catheter Active Medications - Current Medications Current Medications: Generic Name Dose Route Start Last Admin Trade Name Freq PRN Reason Stop Dose Admin Acetaminophen 650 mg 03/08/22 20:07 03/11/22 21:37 Acetaminophen 325 Mg Tab PO 650 mg Q6H PRN Administration Pain MILD(1-3)/Fever >100.5/[place] Albuterol 2.5 mg 03/08/22 20:07 Albuterol 2.5 Mg/3 Ml Nebu IH Q3HRT PRN Shortness Of Breath Amiodarone HCl 200 mg 03/11/22 14:00 03/11/22 21:21 Amiodarone 200 Mg Tab PO 200 mg BID FRANCESCA Administration Aspirin 81 mg 03/11/22 10:00 03/11/22 09:11 Aspirin 81 Mg Tab Chew PO 81 mg QDAY FRANCESCA Administration Atorvastatin Calcium 40 mg 03/11/22 22:00 03/11/22 21:20 Atorvastatin 40 Mg Tab PO 40 mg QHS FRANCESCA Administration Enoxaparin Sodium 90 mg 03/10/22 10:15 03/11/22 21:21 Enoxaparin 100 Mg/1 Ml Inj SUB-Q 90 mg Q12HR FRANCESCA Administration Famotidine 20 mg 03/09/22 10:00 03/11/22 09:09 Famotidine 20 Mg/2 Ml Inj IV 20 mg QDAY FRANCESCA Administration Haloperidol Lactate 5 mg 03/10/22 18:12 03/12/22 02:36 Haloperidol Lactate 5 Mg/1 Ml Inj IV 5 mg Q6H PRN Administration Agitation Methotrexate 2.5 mg 03/11/22 16:00 03/11/22 17:00 Methotrexate 2.5 Mg Tab (Dose Weekly Only) PO 2.5 mg Fr FRANCESCA Administration Metoprolol Tartrate 50 mg 03/10/22 17:49 03/11/22 21:20 Metoprolol Tartrate 25 Mg Tab PO 50 mg BID FRANCESCA Administration Morphine Sulfate 2 mg 03/08/22 20:07 Morphine 4 Mg/1 Ml Inj IV Q8H PRN Pain , Severe (7-10) Nicotine 21 mg 03/10/22 10:00 03/11/22 09:09 Nicotine 21 Mg/24 Hr Patch TD 21 mg QDAY FRANCESCA Administration Oxycodone/Acetaminophen 1 tab 03/08/22 20:07 03/11/22 21:37 Oxycodone /Acetaminophen 5-325mg Tab PO 1 tab Q6H PRN Administration Pain, Moderate (4-6) Sodium Chloride 10 ml 03/08/22 22:00 03/11/22 21:38 Sodium Chloride 0.9% 10 Ml Flush Syringe IV 10 ml BID FRANCESCA Administration Sodium Chloride 10 ml 03/08/22 20:07 Sodium Chloride 0.9% 10 Ml Flush Syringe IV PRN PRN LINE FLUSH Tramadol HCl 50 mg 03/08/22 20:11 03/12/22 01:02 Tramadol 50 Mg Tab PO 50 mg Q6H PRN Administration Pain, Moderate (4-6)
--- NOTE | 2022-03-11 13:54 | Progress Note ---
Assessment and Plan Patient is a 67-year-old male with a reported past medical history of vascular dementia, cerebral atherosclerosis, BPH, hypertension, nicotine dependence who presented to the ED yesterday for complaint of AMS x2. Altered mental status NSTEMI suspect type II MARIE Leukocytosis A. fib?/MAT Hypertension Vascular dementia Echo 03/09/2022-EF 25 to 30%. Severe global hypokinesis of left ventricle. Moderate concentric LVH. Mild diastolic dysfunction is present impaired relaxation pattern. Moderate aortic regurgitation. No pericardial effusion Plan: Troponin is noted to be elevated and downtrending. Suspect NSTEMI type II in setting of MARIE Will stop IV amiodorone and convert to Amio 200mg PO BID Agree with anticoagulation with Lovenox at this time Due to patient's mental status, even though patient has decreased EF recommend conservative management at this time Continue metoprolol 25mg PO BID for rate control Will hold NATALYA and ARB due to elevated creatinine Patient seen in conjunction with Dr. Norton who agrees with this plan of care - Patient Problems (1) Multifocal atrial tachycardia Current Visit: Yes Status: Acute (2) Acute kidney injury (MARIE) with acute tubular necrosis (ATN) Current Visit: Yes Status: Acute (3) Altered mental status Current Visit: Yes Status: Acute (4) Atrial fibrillation with RVR Current Visit: Yes Status: Acute (5) CKD (chronic kidney disease) Current Visit: Yes Status: Acute (6) Cerebral atherosclerosis Current Visit: Yes Status: Acute (7) Elevated troponin Current Visit: Yes Status: Acute (8) NSTEMI (non-ST elevated myocardial infarction) Current Visit: Yes Status: Acute (9) SIRS (systemic inflammatory response syndrome) Current Visit: Yes Status: Acute (10) Vascular dementia Current Visit: Yes Status: Acute Qualifiers: Dementia behavioral disturbance: without behavioral disturbance Qualified Code(s): F01.50 - Vascular dementia without behavioral disturbance (11) Weakness Current Visit: Yes Status: Acute Subjective Date of service: 03/11/22 Principal diagnosis: AMS, MARIE,NSTEMI Interval history: Patient resting in bed in no acute distress. Patient is remains with AMS Patient appears to be in MAT 90s-low 100s Objective Vital Signs Temp Pulse Pulse Resp BP Pulse Ox 03/11/22 11:01 88 15 149/89 03/11/22 10:01 82 14 151/82 08/05/22 09:11 103 H 131/74 08/05/22 09:01 104 H 18 131/74 03/11/22 08:01 119 H 14 147/91 03/11/22 08:00 98.2 F 115 H 115 H 22 98 03/11/22 07:01 95 H 19 147/91 98 03/11/22 06:01 102 H 29 H 109/85 99 03/11/22 05:01 91 H 26 H 122/80 98 03/11/22 04:01 119 H 30 H 155/105 100 03/11/22 04:00 109 H 03/11/22 03:29 98 F 03/11/22 03:00 87 25 H 149/85 100 03/11/22 02:45 99.1 F 03/11/22 02:01 99 H 22 160/97 100 03/11/22 01:00 91 H 18 111/99 99 03/11/22 00:14 16 03/11/22 00:10 108 H 03/11/22 00:01 103 H 31 H 91/59 100 03/10/22 23:46 102 F H 03/10/22 23:27 146 H 26 H 175/91 99 03/10/22 23:14 18 03/10/22 23:01 119 H 25 H 175/91 99 03/10/22 23:00 119 H 25 H 99 03/10/22 22:55 125 H 171/95 03/10/22 22:01 123 H 30 H 171/95 100 03/10/22 21:01 129 H 20 181/117 100 03/10/22 20:01 118 H 17 150/98 100 03/10/22 20:00 117 H 03/10/22 19:40 99.5 F 03/10/22 19:01 120 H 15 151/107 99 03/10/22 18:00 117 H 25 H 163/94 99 03/10/22 17:00 107 H 18 163/94 99 03/10/22 16:00 98.7 F 110 H 103 H 17 108/84 99 03/10/22 15:00 109 H 18 116/86 100 03/10/22 14:00 108 H 19 124/88 100 - Physical Examination General: No Apparent Distress HEENT: Positive: Mucus Membranes Dry Neck: Positive: trachea midline Cardiac: Positive: Irregularly Regular Neuro: Positive: Grossly Intact Abdomen: Positive: Soft Skin: Negative: Rash, Suspicious Lesions Extremities: Present: upper extr. pulses. Absent: edema - Labs and Meds Comprehensive Metabolic Panel 03/11/22 Range/Units 03:52 Sodium 137 (137-145) mmol/L Potassium 4.2 (3.6-5.0) mmol/L Chloride 105.2 (98-107) mmol/L Carbon Dioxide 20 L (22-30) mmol/L BUN 23 H (9-20) mg/dL Creatinine 1.6 H (0.8-1.3) mg/dL Glucose 143 H (75-100) mg/dL Calcium 10.1 (8.4-10.2) mg/dL - Imaging and Cardiology Echo: report reviewed - EKG Supraventricular dysrhythmia: multifocal atrial tachyca Ventricular dysrhythmias: ventricular premature com
--- NOTE | 2022-03-11 14:27 | Electrocardiograph Report ---
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
[2022-03-11] MEDS: AMIODARONE 200 MG TAB PO SCH ×2 (14:30→21:21)
[2022-03-11] MEDS: metHOTREXate 2.5 MG TAB (DOSE WEEKLY ONLY) PO SCH (17:00)
[2022-03-11] MEDS: ACETAMINOPHEN 325 MG TAB PO PRN (21:37)
[2022-03-12] MEDS: traMADol 50 MG TAB PO PRN (01:02)
[2022-03-12] MEDS: HALOPERIDOL LACTATE 5 MG/1 ML INJ IV PRN (02:36)
[2022-03-12 05:19] LABS: Hemoglobin 10.5 gm/dl (11.8-15.2); Mean Corpuscular HGB Conc 32 % (32-34); Mean Corpuscular Volume 81 fl (84-94); Platelet Count 456 K/mm3 (140-440); Red Blood Count 4.08 M/mm3 (3.65-5.03); Red Cell Distribution Width 16.5 % (13.2-15.2)
--- NOTE | 2022-03-12 10:20 | Progress Note ---
Assessment and Plan Echo 03/09/2022 - EF 25 to 30%. Severe global hypokinesis of left ventricle. Moderate concentric LVH. Mild diastolic dysfunction is present, impaired relaxation pattern. Moderate aortic regurgitation. No pericardial effusion. Conservative cardiac mgmt recommended in light of mental status. Continue anticoagulation with SQ Lovenox. Continue PO Amiodarone 200mg BID. Will titrate up PO Lopressor if/when BP permits. ACEI/ARB/ARNI deferred due to renal fxn and to allow for titration of BB as needed. Pt seen in conjunction with Dr. Nuñez, who agrees with the assessment and plan of care. - Patient Problems (1) Altered mental status Current Visit: Yes Status: Acute (2) NSTEMI (non-ST elevated myocardial infarction) Current Visit: Yes Status: Acute (3) Cardiomyopathy Current Visit: Yes Status: Acute (4) Multifocal atrial tachycardia Current Visit: Yes Status: Acute (5) MARIE (acute kidney injury) Current Visit: Yes Status: Acute (6) Cerebral atherosclerosis Current Visit: Yes Status: Chronic (7) Vascular dementia Current Visit: Yes Status: Chronic Qualifiers: Dementia behavioral disturbance: with behavioral disturbance Qualified Code(s): F01.51 - Vascular dementia with behavioral disturbance Subjective Date of service: 03/12/22 Principal diagnosis: NSTEMI ?Type 2 LA Interval history: No events overnight. Resting in bed, appears comfortable. Multifocal atrial tach 110s on tele this AM. Objective Vital Signs Temp Pulse Pulse Resp Resp BP Pulse Ox 03/12/22 06:01 106 H 19 129/83 98 03/12/22 05:31 103 H 12 144/92 99 03/12/22 05:01 99 H 19 107/62 96 03/12/22 05:00 98.1 F 03/12/22 04:31 104 H 18 107/62 99 03/12/22 04:01 71 17 107/62 100 03/12/22 04:00 74 14 100 03/12/22 03:55 78 03/12/22 03:31 75 12 100/57 99 03/12/22 03:00 75 22 100/57 95 03/12/22 02:02 16 03/12/22 02:00 85 12 108/69 98 03/12/22 01:02 13 03/12/22 01:00 88 11 L 115/78 96 03/12/22 00:05 90 03/12/22 00:00 91 H 23 135/83 89 03/11/22 23:01 96 H 18 112/78 97 03/11/22 22:37 16 03/11/22 22:01 101 H 16 168/88 97 03/11/22 21:37 17 03/11/22 21:30 98.1 F 16 03/11/22 21:20 127 H 152/108 03/11/22 21:01 132 H 17 152/108 97 03/11/22 21:00 132 H 17 97 03/11/22 20:01 123 H 19 174/95 98 03/11/22 19:40 114 H 03/11/22 19:01 133 H 19 149/92 96 03/11/22 18:00 116 H 19 152/86 99 03/11/22 17:01 120 H 26 H 141/79 03/11/22 16:01 114 H 22 138/73 03/11/22 16:00 99 F 99 H 99 H 22 98 03/11/22 15:01 118 H 16 137/115 03/11/22 14:00 106 H 18 163/103 03/11/22 13:00 98 H 19 162/100 03/11/22 12:01 99 H 16 140/100 03/11/22 12:00 98.5 F 88 88 20 96 03/11/22 11:01 88 15 149/89 - Physical Examination General: No Apparent Distress HEENT: Positive: Normocephaly, Mucus Membranes Dry Neck: Positive: trachea midline. Negative: JVD/HJR Cardiac: Positive: Tachycardia Lungs: Positive: clear to auscultation Neuro: Positive: Other (AMS) Abdomen: Positive: Soft Skin: Negative: Rash Extremities: Present: upper extr. pulses, warm. Absent: edema - Labs and Meds CBC 03/12/22 Range/Units 04:41 WBC 19.3 H (4.5-11.0) K/mm3 RBC 4.08 (3.65-5.03) M/mm3 Hgb 10.5 L (11.8-15.2) gm/dl Hct 33.0 L (35.5-45.6) % Plt Count 456 H (140-440) K/mm3 Comprehensive Metabolic Panel 03/12/22 Range/Units 04:41 Sodium 137 (137-145) mmol/L Potassium 4.8 (3.6-5.0) mmol/L Chloride 104.1 (98-107) mmol/L Carbon Dioxide 20 L (22-30) mmol/L BUN 21 H (9-20) mg/dL Creatinine 1.6 H (0.8-1.3) mg/dL Glucose 177 H (75-100) mg/dL Calcium 10.0 (8.4-10.2) mg/dL - Imaging and Cardiology EKG: report reviewed, image reviewed Echo: report reviewed - Telemetry EKG Rhythm: PAT (MAT) - EKG Supraventricular dysrhythmia: multifocal atrial tachyca Ventricular dysrhythmias: ventricular premature com Myocardial infarction: septal LA (old age or ind, anterior LA (old age or i - Allied health notes Allied health notes reviewed: nursing
[2022-03-12] MEDS ORDERED: LORazepam 2 MG/ML VIAL IV NR (10:30)
--- NOTE | 2022-03-12 11:00 | Consultation ---
History of Present Illness - Reason for Consult Consult date: 03/12/22 leucocytosis Requesting physician: ROSALIO RUSSELL - History of Present Illness The patient is a 67-year-old male with vascular dementia, prior CVA, BPH, hypertension, smoking history was admitted with confusion, altered mental status. The symptoms were developing over 1 week. Brought to the emergency room, afebrile except 1 isolated fever of 102 F on 03/10/2022. Labs revealed increasing leukocytosis, thrombocytosis. Creatinine elevated at 1.9, improved to 1.6, CRP 16.2, UA without any pyuria. Urinary tox screen positive for THC. Troponin was also elevated, seen by cardiology, attributed to likely MARIE. Poor historian, lying in bed. Discussed with RN, no concerning wounds. Chest x-ray without any pneumonia. Renal ultrasound without any stone or hydronephrosis. TTE shows EF of 25 to 30%. [address] head with no acute intracranial abnormality. Review of Systems: Limited due to AMS Past History Past Medical History: hypertension, other (See HPI) Social history: smoking Family history: hypertension Medications and Allergies Allergies Allergy/AdvReac Type Severity Reaction Status Date / Time lisinopril Allergy Hives Verified 03/11/22 15:41 Home Medications Medication Instructions Recorded Confirmed Last Taken Type Ibuprofen [Motrin] 400 mg PO Q8H PRN #30 tablet 08/28/15 Unknown Rx Oxycodone HCl/Acetaminophen 1 each PO Q6HR PRN #20 tablet 08/28/15 Unknown Rx [Percocet 10/325 mg] Promethazine [Phenergan TAB] 25 mg PO Q6HR PRN #20 tab 08/28/15 Unknown Rx Tamsulosin [Flomax] 0.4 mg PO QDAY #7 cap 08/28/15 Unknown Rx amLODIPine [Norvasc] 10 mg PO DAILY #30 tab 08/28/15 Unknown Rx AtorvaSTATin [Lipitor] 40 mg PO QHS 03/11/22 03/11/22 Unknown History Metoprolol Succinate [Toprol Xl] 50 mg PO DAILY 03/11/22 03/11/22 Unknown History Varenicline Tartrate [Chantix] 1 mg PO BID 03/11/22 03/11/22 Unknown History hydroCHLOROthiazide 12.5 mg PO DAILY 03/11/22 03/11/22 Unknown History [Hydrochlorothiazide] metHOTREXate sodium [Methotrexate] 2.5 mg PO 1XW 03/11/22 03/11/22 Unknown History Active Meds: Active Medications Acetaminophen (Acetaminophen 325 Mg Tab) 650 mg PO Q6H PRN PRN Reason: Pain MILD(1-3)/Fever >100.5/HILTON Last Admin: 03/11/22 21:37 Dose: 650 mg Albuterol (Albuterol 2.5 Mg/3 Ml Nebu) 2.5 mg IH Q3HRT PRN PRN Reason: Shortness Of Breath Amiodarone HCl (Amiodarone 200 Mg Tab) 200 mg PO BID [facility] Last Admin: 03/11/22 21:21 Dose: 200 mg Aspirin (Aspirin 81 Mg Tab Chew) 81 mg PO QDAY [facility] Last Admin: 03/11/22 09:11 Dose: 81 mg Atorvastatin Calcium (Atorvastatin 40 Mg Tab) 40 mg PO QHS [facility] Last Admin: 03/11/22 21:20 Dose: 40 mg Enoxaparin Sodium (Enoxaparin 100 Mg/1 Ml Inj) 90 mg SUB-Q Q12HR [facility] Last Admin: 03/11/22 21:21 Dose: 90 mg Famotidine (Famotidine 20 Mg/2 Ml Inj) 20 mg IV QDAY [facility] Last Admin: 03/11/22 09:09 Dose: 20 mg Haloperidol Lactate (Haloperidol Lactate 5 Mg/1 Ml Inj) 5 mg IV Q6H PRN PRN Reason: Agitation Last Admin: 03/12/22 02:36 Dose: 5 mg Lorazepam (Lorazepam 2 Mg/Ml Vial) 2 mg IV ELECT EQUIP MAINT ENG NR Stop: 03/12/22 16:00 Methotrexate (Methotrexate 2.5 Mg Tab (Dose Weekly Only)) 2.5 mg PO Fr [facility] Last Admin: 03/11/22 17:00 Dose: 2.5 mg Metoprolol Tartrate (Metoprolol Tartrate 25 Mg Tab) 50 mg PO BID [facility] Last Admin: 03/11/22 21:20 Dose: 50 mg Morphine Sulfate (Morphine 4 Mg/1 Ml Inj) 2 mg IV Q8H PRN PRN Reason: Pain , Severe (7-10) Nicotine (Nicotine 21 Mg/24 Hr Patch) 21 mg TD QDAY [facility] Last Admin: 03/11/22 09:09 Dose: 21 mg Oxycodone/Acetaminophen (Oxycodone /Acetaminophen 5-325mg Tab) 1 tab PO Q6H PRN PRN Reason: Pain, Moderate (4-6) Last Admin: 03/11/22 21:37 Dose: 1 tab Sodium Chloride (Sodium Chloride 0.9% 10 Ml Flush Syringe) 10 ml IV BID FRANCESCA Last Admin: 03/11/22 21:38 Dose: 10 ml Sodium Chloride (Sodium Chloride 0.9% 10 Ml Flush Syringe) 10 ml IV PRN PRN PRN Reason: LINE FLUSH Tramadol HCl (Tramadol 50 Mg Tab) 50 mg PO Q6H PRN PRN Reason: Pain, Moderate (4-6) Last Admin: 03/12/22 01:02 Dose: 50 mg Physical Examination - Physical Exam Narrative exam: Physical Exam: Constitutional: Awake, restless in bed, confused Head, Ears, Nose: Normocephalic, atraumatic. External ears, nose normal Eyes: Conjunctivae/corneas clear. No icterus. No ptosis. Neck: Supple, no meningeal signs Cardiovascular: S1, S2 + Respiratory: Good air entry, clear to auscultation bilaterally GI: Seems to have some abdominal guarding, [place] present, bowel sounds + Musculoskeletal: No pedal edema, no cyanosis. Skin: No rash or abscess Hem/Lymphatic: No palpable cervical or supraclavicular nodes. No lymphangitis Psych: Restless Neurological: Awake, alert, confused - Constitutional Vitals: Vital Signs Temp Pulse Resp BP Pulse Ox 98.1 F 106 H 19 129/83 98 03/12/22 05:00 03/12/22 06:01 03/12/22 06:01 03/12/22 06:01 03/12/22 06:01 Temperature -Last 24 Hours Temperature 98.1 F Temperature 98.1 F Temperature 99 F Temperature 98.5 F Results - Labs CBC & Chem 7: 03/12/22 04:41 03/12/22 04:41 Labs: Abnormal lab results 03/12/22 03/12/22 Range/Units 04:41 04:41 WBC 19.3 H (4.5-11.0) K/mm3 Hgb 10.5 L (11.8-15.2) gm/dl Hct 33.0 L (35.5-45.6) % MCV 81 L (84-94) fl MCH 26 L (28-32) pg RDW 16.5 H (13.2-15.2) % Plt Count 456 H (140-440) K/mm3 Carbon Dioxide 20 L (22-30) mmol/L BUN 21 H (9-20) mg/dL Creatinine 1.6 H (0.8-1.3) mg/dL Glucose 177 H (75-100) mg/dL - Imaging and Cardiology Chest x-ray: report reviewed, image reviewed (no pneumonia) Assessment and Plan Cultures: 03/08/2022 blood culture: No growth A/P: 67-year-old male with vascular dementia, prior CVA, BPH, hypertension, smoking history was admitted with confusion, altered mental status: #SIRS/sepsis: Has leukocytosis, thrombocytosis, isolated fever of 102 F x 1. Chest x-ray without any pneumonia, UA without any concerns for UTI. Does have an indwelling Arte[place], some abdominal guarding. Poor historian. No concerning skin wounds. #MARIE: Renally adjust antibiotics. #Elevated troponin: Seen by cardiology, suspected type II NSTEMI. TTE shows EF of 25 to 30%. #Acute encephalopathy: CT head without acute abnormality. Also urinary tox screen positive for THC. #Tobacco abuse Recs: -Started IV cefepime 1 g every 12 hours -Agree with plans for CT abdomen and pelvis to evaluate for source of leukocytosis/infection Discussed with Dr. Zoraida Greco MD, FACP, [facility] O: [phone] F: [phone] C: [phone]
[2022-03-12] MEDS: NICOTINE 21 MG/24 HR PATCH TD SCH (11:28)
[2022-03-12] MEDS: AMIODARONE 200 MG TAB PO SCH ×2 (11:28→21:16)
[2022-03-12] MEDS: ENOXAPARIN 100 MG/1 ML INJ SUB-Q SCH ×2 (11:28→21:16)
[2022-03-12] MEDS: ASPIRIN 81 MG TAB CHEW PO SCH (11:28)
[2022-03-12] MEDS: METOPROLOL TARTRATE 25 MG TAB PO SCH ×2 (11:28→21:17)
[2022-03-12] MEDS: FAMOTIDINE 20 MG/2 ML INJ IV SCH (11:29)
[2022-03-12] MEDS: CEFEPIME/NS 1 GM/100 ML 1 GM/100 ML BAG IV SCH ×2 (11:39→23:01)
--- NOTE | 2022-03-12 11:45 | Progress Note ---
Assessment and Plan 1. Acute kidney injury: Vasomotor MARIE superimposed on CKD in the setting of A.Fib with RVR. Renal US negative. Monitor renal function. Creatinine leveled off. Avoid nephrotoxic agents. Meds dosage based on GFR. 2. FEN: Replete lytes as needed. Monitor lytes and volume status. 3. A.fib with RVR: New diagnosis. Amio. Lovenox. Metoprolol. Followed by Cards. Monitor. 4. Acute metabolic encephalopathy, POA: Monitor. 5. NSTEMI (non-ST elevated myocardial infarction): EF: 25-30%. BB. Lovenox. Followed by Cards. 6. HFrEF: EF: 25-30%. 7. Microcytic Anemia, POA: Trend. Subjective: Patient was seen and examined at the bedside. Examination: General appearance: well-developed, appears stated age, no distress HEENT: atraumatic, no icterus Neck: trachea midline Respiratory: ctab Heart: S1S2, irregular, tachycardia, no murmur Abdomen: soft, bowel sounds heard, NT Integumentary: no obvious rash Neurologic: somnolent, able to move extremities, confused Ext: no edema Subjective Date of service: 03/12/22 Principal diagnosis: NSTEMI ?Type 2 DE Objective - Vital Signs Vital signs: Vital Signs - 12hr 03/12/22 03/12/22 03/12/22 00:00 00:05 01:00 Temperature Pulse Rate 91 H 90 88 Pulse Rate [ From Monitor] Respiratory 23 11 L Rate Blood Pressure 135/83 115/78 O2 Sat by Pulse 89 96 Oximetry 03/12/22 03/12/22 03/12/22 01:02 02:00 02:02 Temperature Pulse Rate 85 Pulse Rate [ From Monitor] Respiratory 13 12 16 Rate Blood Pressure 108/69 O2 Sat by Pulse 98 Oximetry 03/12/22 03/12/22 03/12/22 03:00 03:31 03:55 Temperature Pulse Rate 75 75 78 Pulse Rate [ From Monitor] Respiratory 22 12 Rate Blood Pressure 100/57 100/57 O2 Sat by Pulse 95 99 Oximetry 03/12/22 03/12/22 03/12/22 04:00 04:01 04:31 Temperature Pulse Rate 71 104 H Pulse Rate [ 74 From Monitor] Respiratory 14 17 18 Rate Blood Pressure 107/62 107/62 O2 Sat by Pulse 100 100 99 Oximetry 03/12/22 03/12/22 03/12/22 05:00 05:01 05:31 Temperature 98.1 F Pulse Rate 99 H 103 H Pulse Rate [ From Monitor] Respiratory 19 12 Rate Blood Pressure 107/62 144/92 O2 Sat by Pulse 96 99 Oximetry 03/12/22 03/12/22 06:01 11:28 Temperature Pulse Rate 106 H 112 H Pulse Rate [ From Monitor] Respiratory 19 Rate Blood Pressure 129/83 145/87 O2 Sat by Pulse 98 Oximetry - Lab 03/12/22 04:41 03/12/22 04:41 Most recent lab results Calcium 10.0 mg/dL (8.4-10.2) 03/12/22 04:41 Phosphorus 2.60 mg/dL (2.5-4.5) 03/11/22 03:52 Magnesium 2.10 mg/dL (1.7-2.3) 03/11/22 03:52 Urine Creatinine 167.4 mg/dL (0.1-20.0) H 03/09/22 15:25 Urine Sodium 49 mmol/L 03/09/22 15:25 Medications & Allergies - Medications Allergies/Adverse Reactions: Allergies lisinopril Allergy (Verified 03/11/22 15:41) Hives Home Medications: Home Medications Medication Instructions Recorded Confirmed Last Taken Type Ibuprofen [Motrin] 400 mg PO Q8H PRN #30 tablet 08/28/15 Unknown Rx Oxycodone HCl/Acetaminophen 1 each PO Q6HR PRN #20 tablet 08/28/15 Unknown Rx [Percocet 10/325 mg] Promethazine [Phenergan TAB] 25 mg PO Q6HR PRN #20 tab 08/28/15 Unknown Rx Tamsulosin [Flomax] 0.4 mg PO QDAY #7 cap 08/28/15 Unknown Rx amLODIPine [Norvasc] 10 mg PO DAILY #30 tab 08/28/15 Unknown Rx AtorvaSTATin [Lipitor] 40 mg PO QHS 03/11/22 03/11/22 Unknown History Metoprolol Succinate [Toprol Xl] 50 mg PO DAILY 03/11/22 03/11/22 Unknown History Varenicline Tartrate [Chantix] 1 mg PO BID 03/11/22 03/11/22 Unknown History hydroCHLOROthiazide 12.5 mg PO DAILY 03/11/22 03/11/22 Unknown History [Hydrochlorothiazide] metHOTREXate sodium [Methotrexate] 2.5 mg PO 1XW 03/11/22 03/11/22 Unknown History Active Medications: Generic Name Dose Route Start Last Admin Trade Name Freq PRN Reason Stop Dose Admin Acetaminophen 650 mg 03/08/22 20:07 03/11/22 21:37 Acetaminophen 325 Mg Tab PO 650 mg Q6H PRN Administration Pain MILD(1-3)/Fever >100.5/HIL[place] Albuterol 2.5 mg 03/08/22 20:07 Albuterol 2.5 Mg/3 Ml Nebu IH Q3HRT PRN Shortness Of Breath Amiodarone HCl 200 mg 03/11/22 14:00 03/12/22 11:28 Amiodarone 200 Mg Tab PO 200 mg BID FRANCESCA Administration Aspirin 81 mg 03/11/22 10:00 03/12/22 11:28 Aspirin 81 Mg Tab Chew PO 81 mg QDAY FRANCESCA Administration Atorvastatin Calcium 40 mg 03/11/22 22:00 03/11/22 21:20 Atorvastatin 40 Mg Tab PO 40 mg QHS FRANCESCA Administration Enoxaparin Sodium 90 mg 03/10/22 10:15 03/12/22 11:28 Enoxaparin 100 Mg/1 Ml Inj SUB-Q 90 mg Q12HR FRANCESCA Administration Famotidine 20 mg 03/09/22 10:00 03/12/22 11:29 Famotidine 20 Mg/2 Ml Inj IV 20 mg QDAY FRANCESCA Administration Haloperidol Lactate 5 mg 03/10/22 18:12 03/12/22 02:36 Haloperidol Lactate 5 Mg/1 Ml Inj IV 5 mg Q6H PRN Administration Agitation Cefepime HCl 1 gm in 100 mls @ 200 mls/hr 03/12/22 11:00 03/12/22 11:39 Cefepime/Ns 1 Gm/100 Ml IV 200 mls/hr Q12H FRANCESCA Administration Protocol Lorazepam 2 mg 03/12/22 10:30 Lorazepam 2 Mg/Ml Vial IV 03/12/22 16:00 [employer] NR Methotrexate 2.5 mg 03/11/22 16:00 03/11/22 17:00 Methotrexate 2.5 Mg Tab (Dose Weekly Only) PO 2.5 mg Fr FRANCESCA Administration Metoprolol Tartrate 50 mg 03/10/22 17:49 03/12/22 11:28 Metoprolol Tartrate 25 Mg Tab PO 50 mg BID FRANCESCA Administration Morphine Sulfate 2 mg 03/08/22 20:07 Morphine 4 Mg/1 Ml Inj IV Q8H PRN Pain , Severe (7-10) Nicotine 21 mg 03/10/22 10:00 03/12/22 11:28 Nicotine 21 Mg/24 Hr Patch TD 21 mg QDAY FRANCESCA Administration Oxycodone/Acetaminophen 1 tab 03/08/22 20:07 03/11/22 21:37 Oxycodone /Acetaminophen 5-325mg Tab PO 1 tab Q6H PRN Administration Pain, Moderate (4-6) Sodium Chloride 10 ml 03/08/22 22:00 03/12/22 11:29 Sodium Chloride 0.9% 10 Ml Flush Syringe IV 10 ml BID FRANCESCA Administration Sodium Chloride 10 ml 03/08/22 20:07 Sodium Chloride 0.9% 10 Ml Flush Syringe IV PRN PRN LINE FLUSH Tramadol HCl 50 mg 03/08/22 20:11 03/12/22 01:02 Tramadol 50 Mg Tab PO 50 mg Q6H PRN Administration Pain, Moderate (4-6)
--- NOTE | 2022-03-12 12:00 | Consultation ---
History of Present Illness - Reason for Consult Consult date: 03/12/22 Reason for consult: Psychosis - Chief Complaint Chief complaint: He is not acting like himself - History of Present Psychiatric Illness HPI: 67 YO Male with Vascular Dementia, Cerebral Atherosclerosis, BPH, HTN, Nicotine Dependence presents to ED for evaluation. Patient is confused and lethargic at the time my evaluation is unable to provide history. Patient history provided by caregiver was at bedside during exam and interview. As per caregiver the patient experienced increased weakness and decreased responsiveness over the past 1 week. EMS was notified and upon arrival the patient was found to be in distress and subsequent transported to [facility] for further care and evaluation of the aforementioned symptoms. The patient seen and evaluated in the emergency department all lab and imaging studies reviewed. Patient found to have lab findings consistent with NSTEMI, as well as metabolic encephalopathy, acute kidney injury, new onset atrial fibrillation with rapid ventricular response, as well as systemic inflammatory response syndrome. Patient mated to IM and initiated on therapeutic anticoagulation. Patient treated with empiric IV antibiotic therapy. Patient initiated on Cardizem drip with controlled heart rate. No further history is obtainable. No reports of fever, chills, chest pain, palpitation or productive cough, skin rash, recent contact, known exposure to COVID-19. No prior admission for review. No medication listed at time of admission for reconciliation. Advanced care planning conducted in ED. The patient is a 67 year old with history of Vascular Dementia who was consulted for psychosis. The patient was seen today. He presents with confusion. The patient is mumbling and incoherent; the patient is unable to engage in assessment at this time. PAST PSYCHIATRIC HISTORY: PAST MEDICAL HISTORY: None reported Family Psychiatric History: unknown SOCIAL HISTORY REVIEW OF SYSTEMS MENTAL STATUS Assessment Dementia Treatment Plan Continue home meds Start Risperidone 0.5mg po BID Medical: Per primary SItter: Defer to primary Deposition: Do not recommend acute psychiatric inpatient. Will follow for medication management. Thanks Case staffed with Dr. Flores Medications and Allergies Allergies Allergy/AdvReac Type Severity Reaction Status Date / Time lisinopril Allergy Hives Verified 03/11/22 15:41 Home Medications Medication Instructions Recorded Confirmed Last Taken Type Ibuprofen [Motrin] 400 mg PO Q8H PRN #30 tablet 08/28/15 Unknown Rx Oxycodone HCl/Acetaminophen 1 each PO Q6HR PRN #20 tablet 08/28/15 Unknown Rx [Percocet 10/325 mg] Promethazine [Phenergan TAB] 25 mg PO Q6HR PRN #20 tab 08/28/15 Unknown Rx Tamsulosin [Flomax] 0.4 mg PO QDAY #7 cap 08/28/15 Unknown Rx amLODIPine [Norvasc] 10 mg PO DAILY #30 tab 08/28/15 Unknown Rx AtorvaSTATin [Lipitor] 40 mg PO QHS 03/11/22 03/11/22 Unknown History Metoprolol Succinate [Toprol Xl] 50 mg PO DAILY 03/11/22 03/11/22 Unknown History Varenicline Tartrate [Chantix] 1 mg PO BID 03/11/22 03/11/22 Unknown History hydroCHLOROthiazide 12.5 mg PO DAILY 03/11/22 03/11/22 Unknown History [Hydrochlorothiazide] metHOTREXate sodium [Methotrexate] 2.5 mg PO 1XW 03/11/22 03/11/22 Unknown History Active Meds: Active Medications Acetaminophen (Acetaminophen 325 Mg Tab) 650 mg PO Q6H PRN PRN Reason: Pain MILD(1-3)/Fever >100.5/HILTON Last Admin: 03/11/22 21:37 Dose: 650 mg Albuterol (Albuterol 2.5 Mg/3 Ml Nebu) 2.5 mg IH Q3HRT PRN PRN Reason: Shortness Of Breath Amiodarone HCl (Amiodarone 200 Mg Tab) 200 mg PO BID [facility] Last Admin: 03/12/22 11:28 Dose: 200 mg Aspirin (Aspirin 81 Mg Tab Chew) 81 mg PO QDAY [facility] Last Admin: 03/12/22 11:28 Dose: 81 mg Atorvastatin Calcium (Atorvastatin 40 Mg Tab) 40 mg PO QHS [facility] Last Admin: 03/11/22 21:20 Dose: 40 mg Enoxaparin Sodium (Enoxaparin 100 Mg/1 Ml Inj) 90 mg SUB-Q Q12HR [facility] Last Admin: 03/12/22 11:28 Dose: 90 mg Famotidine (Famotidine 20 Mg/2 Ml Inj) 20 mg IV QDAY [facility] Last Admin: 03/12/22 11:29 Dose: 20 mg Haloperidol Lactate (Haloperidol Lactate 5 Mg/1 Ml Inj) 5 mg IV Q6H PRN PRN Reason: Agitation Last Admin: 03/12/22 02:36 Dose: 5 mg Cefepime HCl (Cefepime/Ns 1 Gm/100 Ml) 1 gm in 100 mls @ 200 mls/hr IV Q12H [facility]; Protocol Last Admin: 03/12/22 11:39 Dose: 200 mls/hr Lorazepam (Lorazepam 2 Mg/Ml Vial) 2 mg IV [employer]NAGER [employer] NR Stop: 03/12/22 16:00 Methotrexate (Methotrexate 2.5 Mg Tab (Dose Weekly Only)) 2.5 mg PO Fr [facility] Last Admin: 03/11/22 17:00 Dose: 2.5 mg Metoprolol Tartrate (Metoprolol Tartrate 25 Mg Tab) 50 mg PO BID [facility] Last Admin: 03/12/22 11:28 Dose: 50 mg Morphine Sulfate (Morphine 4 Mg/1 Ml Inj) 2 mg IV Q8H PRN PRN Reason: Pain , Severe (7-10) Nicotine (Nicotine 21 Mg/24 Hr Patch) 21 mg TD QDAY [facility] Last Admin: 03/12/22 11:28 Dose: 21 mg Oxycodone/Acetaminophen (Oxycodone /Acetaminophen 5-325mg Tab) 1 tab PO Q6H PRN PRN Reason: Pain, Moderate (4-6) Last Admin: 03/11/22 21:37 Dose: 1 tab Sodium Chloride (Sodium Chloride 0.9% 10 Ml Flush Syringe) 10 ml IV BID [facility] Last Admin: 03/12/22 11:29 Dose: 10 ml Sodium Chloride (Sodium Chloride 0.9% 10 Ml Flush Syringe) 10 ml IV PRN PRN PRN Reason: LINE FLUSH Tramadol HCl (Tramadol 50 Mg Tab) 50 mg PO Q6H PRN PRN Reason: Pain, Moderate (4-6) Last Admin: 03/12/22 01:02 Dose: 50 mg Mental Status Exam - Vital signs Last Vital Signs Temp 98.1 F 03/12/22 05:00 Pulse 112 H 03/12/22 11:28 Resp 19 03/12/22 06:01 BP 145/87 03/12/22 11:28 Pulse Ox 98 03/12/22 06:01 Results Result Diagrams: 03/12/22 04:41 03/12/22 04:41 Abnormal lab results 03/12/22 03/12/22 Range/Units 04:41 04:41 WBC 19.3 H (4.5-11.0) K/mm3 Hgb 10.5 L (11.8-15.2) gm/dl Hct 33.0 L (35.5-45.6) % MCV 81 L (84-94) fl MCH 26 L (28-32) pg RDW 16.5 H (13.2-15.2) % Plt Count 456 H (140-440) K/mm3 Carbon Dioxide 20 L (22-30) mmol/L BUN 21 H (9-20) mg/dL Creatinine 1.6 H (0.8-1.3) mg/dL Glucose 177 H (75-100) mg/dL All other labs normal.
--- NOTE | 2022-03-12 12:19 | Progress Note ---
Assessment and Plan Assessment and plan: This is a 67-year-old male with known past medical history of vascular dementia, cerebral atherosclerosis, BPH, gastric bypass, renal insufficency, HTN, thoracic aortic aneurysm without rupture, nicotine dependence, benign lungs nodules s/p LDCT, RA, and debility admitted for NSTEMI, AFib with RVR, and MARIE Hospital Course to Date: 03/09: Stable on RA, denied ay pain nor any discomfort at this time. SR with PACs noted on the monitor, VSS. Renal function mild improvement in renal function this am. Continue schedule BB for rate control and therapeutic Lovenox subQ. 2D echo pending and Cardiology consulted. Nephrology is also following. 03/10: More awake today but confused, remains stable on RA. ST with frequent PACs, VSS. Per cardio patient is most likely in MATs. 2D echo still pending, continue BB. Renal function is stable, continue current care per nephro. Nicotine patch added for increase cigarettes urges. Patient's brother provided contact for 3 providers who patient have seen in the past, medical records requested. 03/11: On amiodarone gtt per cardio. Remains in ST with PACs on the monitor, VSS. Plan to switch amio gtt, continue BB. Received records from patient's providers, medical history updated. Per records patient was on Wellbutrin for tobacco dependence but was switched to Chantix in August of this year and patient has not been seen by any of these providers since August 2021. Mental health/spych was also consulted for further eval and treat. 03/12: Patient seen and examined Case discussed with infectious disease concerning for possible sepsis chest x-ray reviewed no acute pneumonia UA without any concern for UTI. Patient does have some abdominal tenderness for which have ordered a CT abdomen and pelvis with oral contrast to further evaluate. We will monitor for worsening renal function as patient has a baseline CKD. Unfortunately due to this cannot get IV contrast. ID started the patient on cefepime 1 g every 12 hours while we will monitor. In the meantime patient can be transferred to telemetry continues on amiodarone p.o. for A. fib. Remains critically ill at this time. Assessment and Plan #NSTEMI (non-ST elevated myocardial infarction) #New Onset Atrial Fibrillation with RVR #Hypertension - Presented with AMS, found in AFib with RVR in the ED with elevated troponin - No report of previous Afib history, most likely new onset - Troponin downtrending - Per patient's brother patient sees a PCP in [place], however patient has been refusing to go to the doctor - s/p Chey gtt - Cardiology consulted, appreciate recommendations - Patient is ST with PACs on the monitor. Per cardio most likely MATs. Patient denied any chest pain, VSS - On Amiodarone gtt, plan to switch to PO today - Continue BB and therapeutic Lovenox - 2D Echo noted, EF 25-30% - Continue blood pressure monitor per protocol - Maintain SBP less than 160 #Acute kidney injury(MARIE) - Baseline renal function is unknown, most likely prerenal secondary to above - Renal function remains stable - Neprology consulted, appreciated recommendations - Strict intake and output - Avoid nephrotoxic medications; Renally dose medications - Monitor and replace electrolytes as needed #SIRS (Systemic Inflammatory Response Syndrome) - Presented with leukocytosis and tachycardia, but afebrile - X1 dose of Empiric IV antibiotic given in the ED - UA unremakarble, Blood cultures with NGTD - Patient remains afebrile, leukocytosis improved - Will continue to monitor for now - F/u on cultures #Acute Metabolic Encephalopathy #Vascular Dementia - Presented with increased weakness and decreased responsiveness over the past 1 week - Probably secondary to above - Mentation improved this am, still with periods of confusion - Verbal prompting, verbal redirection - Avoid benzodiazepine to reduce the possibility of delirium - Maintenance of sleep-wake cycle #Severe Arthritis #Debility - Supportive measures - PRN analgesia for pain control - PT/OT consulted #Nicotine Dependence - Per patient he smoke at least a pack a day - Was initially on wellbutrin at home, but was switched to Chantix back in August - smoking cessation education provided. Patient verbalized understanding and agreed with the info provided - Nicotine qDay - Mental/Psych consulted for further eval #Sepsis/SIRS etiology unknown #GI/DVT Prophylaxis - PPI- Pepcid - Lovenox SubQ - SCDs bilateral lower extremities while in bed, #Advance Care Planning - Disease education data, care plan, diagnoses, and prognosis were discussed with patient and patient's brother at the bedside. Patient is a FULL code. They acknowledged understanding and agreed with current care plan. The high probability of a clinically significant, sudden or life threatening deterioration of the [multiple] system(s) required my full and direct attention, intervention and personal management. The aggregate critical care time was [60] minutes. This time is in addition to time spent performing reported procedures but includes the following: [x] Data Review and interpretation [x] Patient assessment and monitoring of vital signs [x] Documentation [x] Medication orders and management Disposition Plan: IMCU Total Time Spent with Patient (Minutes): 60 History Interval history: Patient seen and examined at the bedside. Awake and answering all questions, however patient is not appropriately. Very restless in bed, wanting to smoke. In ST with PAcs on the monitor, amiodarone drip has been discontinued and converted to p.o. Patient still with altered sensorium Hospitalist Physical - Physical exam Narrative exam: - Physical exam Narrative exam: General appearance: Present: no acute distress, well-nourished, obese - EENT Eyes: Present: PERRL ENT: hearing intact - Neck Neck: Present: normal ROM - Respiratory Respiratory effort: normal Respiratory: bilateral: diminished - Cardiovascular Rhythm: regularly irregular Heart Sounds: Present: S1 & S2 - Extremities Extremities: no ischemia, pulses intact, pulses symmetrical Extremity abnormal: edema - Peripheral Assessment Generalized Edema Type: Non-pitting Edema Degree: 1+ Capillary Refill: < 3 seconds Skin Temperature: Warm Peripheral Pulses: within normal limits - Abdominal General gastrointestinal: soft, non-distended, normal bowel sounds. some tenderness rlq - Integumentary Integumentary: Present: clear, warm, dry - Psychiatric Psychiatric: cooperative, agitated, other (Awake but confused) - Neurologic Neurologic: moves all extremities, other (Awake but confused, following commands) - Allied Health Allied health notes reviewed: nursing, case management - Constitutional Vitals: Temp Pulse Resp BP Pulse Ox 98.1 F 112 H 19 145/87 98 03/12/22 05:00 03/12/22 11:28 03/12/22 06:01 03/12/22 11:28 03/12/22 06:01 General appearance: Present: no acute distress, well-nourished, obese HEART Score - HEART Score Troponin: Troponin T 0.119 ng/mL (0.00-0.029) H* D 03/09/22 02:13 Results - Labs CBC & Chem 7: 03/12/22 04:41 03/12/22 04:41 Labs: Laboratory Last Values WBC 19.3 K/mm3 (4.5-11.0) H 03/12/22 04:41 RBC 4.08 M/mm3 (3.65-5.03) 03/12/22 04:41 Hgb 10.5 gm/dl (11.8-15.2) L 03/12/22 04:41 Hct 33.0 % (35.5-45.6) L 03/12/22 04:41 MCV 81 fl (84-94) L 03/12/22 04:41 MCH 26 pg (28-32) L 03/12/22 04:41 MCHC 32 % (32-34) 03/12/22 04:41 RDW 16.5 % (13.2-15.2) H 03/12/22 04:41 Plt Count 456 K/mm3 (140-440) H 03/12/22 04:41 Lymph % (Auto) 9.0 % (13.4-35.0) L 03/08/22 12:29 [place] % (Auto) 11.2 % (0.0-7.3) H 03/08/22 12:29 Eos % (Auto) 1.9 % (0.0-4.3) 03/08/22 12:29 Baso % (Auto) 0.9 % (0.0-1.8) 03/08/22 12:29 Lymph # (Auto) 1.1 K/mm3 (1.2-5.4) L 03/08/22 12:29 [place] # (Auto) 1.4 K/mm3 (0.0-0.8) H 03/08/22 12:29 Eos # (Auto) 0.2 K/mm3 (0.0-0.4) 03/08/22 12:29 Baso # (Auto) 0.1 K/mm3 (0.0-0.1) 03/08/22 12:29 Add Manual Diff Complete 03/09/22 02:13 Total Counted 100 03/09/22 02:13 Seg Neutrophils % 77.0 % (40.0-70.0) H 03/08/22 12:29 Seg Neuts % (Manual) 80.0 % (40.0-70.0) H 03/09/22 02:13 Band Neutrophils % 0 % 03/09/22 02:13 Lymphocytes % (Manual) 11.0 % (13.4-35.0) L 03/09/22 02:13 Reactive Lymphs % (Man) 0 % 03/09/22 02:13 Monocytes % (Manual) 8.0 % (0.0-7.3) H 03/09/22 02:13 Eosinophils % (Manual) 1.0 % (0.0-4.3) 03/09/22 02:13 Basophils % (Manual) 0 % (0.0-1.8) 03/09/22 02:13 Metamyelocytes % 0 % 03/09/22 02:13 Myelocytes % 0 % 03/09/22 02:13 Promyelocytes % 0 % 03/09/22 02:13 Blast Cells % 0 % 03/09/22 02:13 Nucleated RBC % Not Reportable 03/09/22 02:13 Seg Neutrophils # 9.8 K/mm3 (1.8-7.7) H 03/08/22 12:29 Seg Neutrophils # Man 8.5 K/mm3 (1.8-7.7) H 03/09/22 02:13 Band Neutrophils # 0.0 K/mm3 03/09/22 02:13 Lymphocytes # (Manual) 1.2 K/mm3 (1.2-5.4) 03/09/22 02:13 Abs React Lymphs (Man) 0.0 K/mm3 03/09/22 02:13 Monocytes # (Manual) 0.8 K/mm3 (0.0-0.8) 03/09/22 02:13 Eosinophils # (Manual) 0.1 K/mm3 (0.0-0.4) 03/09/22 02:13 Basophils # (Manual) 0.0 K/mm3 (0.0-0.1) 03/09/22 02:13 Metamyelocytes # 0.0 K/mm3 03/09/22 02:13 Myelocytes # 0.0 K/mm3 03/09/22 02:13 Promyelocytes # 0.0 K/mm3 03/09/22 02:13 Blast Cells # 0.0 K/mm3 03/09/22 02:13 WBC Morphology Not Reportable 03/09/22 02:13 Hypersegmented Neuts Not Reportable 03/09/22 02:13 Hyposegmented Neuts Not Reportable 03/09/22 02:13 Hypogranular Neuts Not Reportable 03/09/22 02:13 Smudge Cells Not Reportable 03/09/22 02:13 Toxic Granulation Not Reportable 03/09/22 02:13 Toxic Vacuolation Not Reportable 03/09/22 02:13 Dohle Bodies Not Reportable 03/09/22 02:13 Pelger-Huet Anomaly Not Reportable 03/09/22 02:13 Marylin Rods Not Reportable 03/09/22 02:13 Platelet Estimate Consistent w auto 03/09/22 02:13 Clumped Platelets Not Reportable 03/09/22 02:13 Plt Clumps, EDTA Not Reportable 03/09/22 02:13 Large Platelets Not Reportable 03/09/22 02:13 Giant Platelets Not Reportable 03/09/22 02:13 Platelet Satelliting Not Reportable 03/09/22 02:13 Plt Morphology Comment Not Reportable 03/09/22 02:13 RBC Morphology Normal 03/09/22 02:13 Dimorphic RBCs Not Reportable 03/09/22 02:13 Polychromasia Not Reportable 03/09/22 02:13 Hypochromasia Not Reportable 03/09/22 02:13 Poikilocytosis Not Reportable 03/09/22 02:13 Anisocytosis Not Reportable 03/09/22 02:13 Microcytosis Not Reportable 03/09/22 02:13 Macrocytosis Not Reportable 03/09/22 02:13 Spherocytes Not Reportable 03/09/22 02:13 Pappenheimer Bodies Not Reportable 03/09/22 02:13 Sickle Cells Not Reportable 03/09/22 02:13 Target Cells Not Reportable 03/09/22 02:13 Tear Drop Cells Not Reportable 03/09/22 02:13 Ovalocytes Not Reportable 03/09/22 02:13 Helmet Cells Not Reportable 03/09/22 02:13 Alvarez-Leslie Bodies Not Reportable 03/09/22 02:13 [place] Rings Not Reportable 03/09/22 02:13 Damari Cells Not Reportable 03/09/22 02:13 Bite Cells Not Reportable 03/09/22 02:13 Crenated Cell Not Reportable 03/09/22 02:13 Elliptocytes Not Reportable 03/09/22 02:13 Acanthocytes (Spur) Not Reportable 03/09/22 02:13 Rouleaux Not Reportable 03/09/22 02:13 Hemoglobin C Crystals Not Reportable 03/09/22 02:13 Schistocytes Not Reportable 03/09/22 02:13 Malaria parasites Not Reportable 03/09/22 02:13 Cristino Bodies Not Reportable 03/09/22 02:13 Hem Pathologist Commnt No 03/09/22 02:13 PT 15.7 Sec. (12.2-14.9) H 03/08/22 12:29 INR 1.09 (0.87-1.13) 03/08/22 12:29 Sodium 137 mmol/L (137-145) 03/12/22 04:41 Potassium 4.8 mmol/L (3.6-5.0) 03/12/22 04:41 Chloride 104.1 mmol/L (98-107) 03/12/22 04:41 Carbon Dioxide 20 mmol/L (22-30) L 03/12/22 04:41 Anion Gap 18 mmol/L 03/12/22 04:41 BUN 21 mg/dL (9-20) H 03/12/22 04:41 Creatinine 1.6 mg/dL (0.8-1.3) H 03/12/22 04:41 Estimated GFR 53 ml/min 03/12/22 04:41 BUN/Creatinine Ratio 13 % 03/12/22 04:41 Glucose 177 mg/dL (75-100) H 03/12/22 04:41 POC Glucose 82 mg/dL (70-105) 03/10/22 06:32 Lactic Acid 1.40 mmol/L (0.7-2.0) 03/08/22 12:29 Calcium 10.0 mg/dL (8.4-10.2) 03/12/22 04:41 Phosphorus 2.60 mg/dL (2.5-4.5) 03/11/22 03:52 Magnesium 2.10 mg/dL (1.7-2.3) 03/11/22 03:52 Total Bilirubin 0.30 mg/dL (0.1-1.2) 03/09/22 02:13 AST 25 units/L (5-40) 03/09/22 02:13 ALT 11 units/L (7-56) 03/09/22 02:13 Alkaline Phosphatase 83 units/L (35-129) 03/09/22 02:13 Ammonia 14.0 umol/L (25-60) L 03/08/22 12:29 Total Creatine Kinase 53 units/L (55-170) L 03/08/22 12:29 Troponin T 0.119 ng/mL (0.00-0.029) H* D 03/09/22 02:13 C-Reactive Protein 16.20 mg/dL (0.00-1.30) H 03/08/22 12:29 Total Protein 7.0 g/dL (6.3-8.2) 03/09/22 02:13 Albumin 2.5 g/dL (3.9-5) L 03/09/22 02:13 Albumin/Globulin Ratio 0.6 % 03/09/22 02:13 Triglycerides 105 mg/dL (2-149) 03/08/22 12:29 Cholesterol 136 mg/dL (50-199) 03/08/22 12:29 LDL Cholesterol Direct 76 mg/dL (50-130) 03/08/22 12:29 HDL Cholesterol 35 mg/dL (40-59) L 03/08/22 12:29 Cholesterol/HDL Ratio 3.88 % 03/08/22 12:29 PTH Intact 45.32 pg/mL (15-65) 03/11/22 03:52 Urine Color Yellow (Yellow) 03/08/22 14:38 Urine Turbidity Clear (Clear) 03/08/22 14:38 Urine pH 6.0 (5.0-7.0) 03/08/22 14:38 Ur Specific [place] 1.015 (1.003-1.030) 03/08/22 14:38 Urine Protein 30 mg/dl mg/dL (Negative) 03/08/22 14:38 Urine Glucose (UA) Negative mg/dL (Negative) 03/08/22 14:38 Urine Ketones Negative mg/dL (Negative) 03/08/22 14:38 Urine Blood 1+ (Negative) 03/08/22 14:38 Urine Nitrite Negative (Negative) 03/08/22 14:38 Ur Reducing Substances Negative (Negative) 03/08/22 14:38 Urine Bilirubin Negative (Negative) 03/08/22 14:38 Urine Urobilinogen 0.0 mg/dL (<2.0) 03/08/22 14:38 Ur Leukocyte Esterase Negative (Negative) 03/08/22 14:38 Urine WBC (Auto) 3.0 /HPF (0.0-6.0) 03/08/22 14:38 Urine RBC (Auto) 5.0 /HPF (0.0-6.0) 03/08/22 14:38 U Epithel Cells (Auto) 3.0 /HPF (0-13.0) 03/08/22 14:38 Urine Bacteria (Auto) 1+ /HPF (Negative) 03/08/22 14:38 Hyaline Casts 2 /LPF 03/08/22 14:38 Urine Mucus 1+ /HPF 03/08/22 14:38 Urine Creatinine 167.4 mg/dL (0.1-20.0) H 03/09/22 15:25 Urine Sodium 49 mmol/L 03/09/22 15:25 Salicylates < 0.3 mg/dL (2.8-20.0) L 03/08/22 12:29 Urine Opiates Screen Negative 03/08/22 14:38 Urine Methadone Screen Negative 03/08/22 14:38 Acetaminophen 5.0 ug/mL (10.0-30.0) L 03/08/22 12:29 Ur Barbiturates Screen Negative 03/08/22 14:38 Ur Phencyclidine Scrn Negative 03/08/22 14:38 Ur Amphetamines Screen Negative 03/08/22 14:38 U Benzodiazepines Scrn Negative 03/08/22 14:38 Urine Cocaine Screen Negative 03/08/22 14:38 U Marijuana (THC) Screen Positive 03/08/22 14:38 Drugs of Abuse Note Disclamer 03/08/22 14:38 Plasma/Serum Alcohol < 0.01 % (0-0.07) 03/08/22 12:29 Microbiology: Microbiology 03/08/22 12:29 Peripheral/Venous Blood Culture - Preliminary NO GROWTH AFTER 72 HOURS 03/08/22 12:29 Peripheral/Venous Blood Culture - Preliminary NO GROWTH AFTER 72 HOURS Arteaga/IV: Voiding Method Indwelling Catheter Active Medications - Current Medications Current Medications: Generic Name Dose Route Start Last Admin Trade Name Freq PRN Reason Stop Dose Admin Acetaminophen 650 mg 03/08/22 20:07 03/11/22 21:37 Acetaminophen 325 Mg Tab PO 650 mg Q6H PRN Administration Pain MILD(1-3)/Fever >100.5/HILTON Albuterol 2.5 mg 03/08/22 20:07 Albuterol 2.5 Mg/3 Ml Nebu IH Q3HRT PRN Shortness Of Breath Amiodarone HCl 200 mg 03/11/22 14:00 03/12/22 11:28 Amiodarone 200 Mg Tab PO 200 mg BID FRANCESCA Administration Aspirin 81 mg 03/11/22 10:00 03/12/22 11:28 Aspirin 81 Mg Tab Chew PO 81 mg QDAY FRANCESCA Administration Atorvastatin Calcium 40 mg 03/11/22 22:00 03/11/22 21:20 Atorvastatin 40 Mg Tab PO 40 mg QHS FRANCESCA Administration Enoxaparin Sodium 90 mg 03/10/22 10:15 03/12/22 11:28 Enoxaparin 100 Mg/1 Ml Inj SUB-Q 90 mg Q12HR FRANCESCA Administration Famotidine 20 mg 03/09/22 10:00 03/12/22 11:29 Famotidine 20 Mg/2 Ml Inj IV 20 mg QDAY FRANCESCA Administration Haloperidol Lactate 5 mg 03/10/22 18:12 03/12/22 02:36 Haloperidol Lactate 5 Mg/1 Ml Inj IV 5 mg Q6H PRN Administration Agitation Cefepime HCl 1 gm in 100 mls @ 200 mls/hr 03/12/22 11:00 03/12/22 11:39 Cefepime/Ns 1 Gm/100 Ml IV 200 mls/hr Q12H FRANCESCA Administration Protocol Lorazepam 2 mg 03/12/22 10:30 Lorazepam 2 Mg/Ml Vial IV 03/12/22 16:00 EXPERIMENTAL PHYSICIST NR Methotrexate 2.5 mg 03/11/22 16:00 03/11/22 17:00 Methotrexate 2.5 Mg Tab (Dose Weekly Only) PO 2.5 mg Fr FRANCESCA Administration Metoprolol Tartrate 50 mg 03/10/22 17:49 03/12/22 11:28 Metoprolol Tartrate 25 Mg Tab PO 50 mg BID FRANCESCA Administration Morphine Sulfate 2 mg 03/08/22 20:07 Morphine 4 Mg/1 Ml Inj IV Q8H PRN Pain , Severe (7-10) Nicotine 21 mg 03/10/22 10:00 03/12/22 11:28 Nicotine 21 Mg/24 Hr Patch TD 21 mg QDAY FRANCESCA Administration Oxycodone/Acetaminophen 1 tab 03/08/22 20:07 03/11/22 21:37 Oxycodone /Acetaminophen 5-325mg Tab PO 1 tab Q6H PRN Administration Pain, Moderate (4-6) Risperidone 0.5 mg 03/12/22 22:00 Risperidone 0.25 Mg Tab PO BID FRANCESCA Sodium Chloride 10 ml 03/08/22 22:00 03/12/22 11:29 Sodium Chloride 0.9% 10 Ml Flush Syringe IV 10 ml BID FRANCESCA Administration Sodium Chloride 10 ml 03/08/22 20:07 Sodium Chloride 0.9% 10 Ml Flush Syringe IV PRN PRN LINE FLUSH Tramadol HCl 50 mg 03/08/22 20:11 03/12/22 01:02 Tramadol 50 Mg Tab PO 50 mg Q6H PRN Administration Pain, Moderate (4-6)
--- NOTE | 2022-03-12 14:08 | Cat Scan Report ---
CT ABDOMEN AND PELVIS WITHOUT IV CONTRAST INDICATION: RLQ PAIN. COMPARISON: CT 08/27/2015 TECHNIQUE: All CT scans at this facility use dose modulation, automated exposure control, iterative reconstructi on or weight based dosing, when appropriate, to reduce radiation dose to as low as reasonably achieva ble. FINDINGS: Lung Bases: Lung bases are clear. Cardiomegaly is noted. Skeletal System: No acute abnormality. ABDOMEN: Liver: No significant abnormality. Gallbladder: No significant abnormality. Bile Ducts: No significant abnormality. Adrenals: No significant abnormality. Right Kidney: No significant abnormality. There is a single punctate calyceal stone. Cyst is noted in the posterior lateral cortex. This cyst is increased in size. Left Kidney: No significant abnormality. There is a punctate calyceal stone. Pancreas: No significant abnormality. Spleen: No significant abnormality. Upper GI tract: No significant abnormality. Lymph Nodes: No significant adenopathy. Aorta: No significant abnormality. Additional Findings: No significant abnormality. PELVIS: Colon: No acute abnormality. Urinary Bladder and Distal Ureters: Bladder is collapsed around a Arteaga catheter. Appendix: No significant abnormality. Lymph Nodes: No significant adenopathy. Additional Findings: None. IMPRESSION: 1. Within the limitations of non contrast technique, no acute process in the abdomen or pelvis. 2. Incidental findings, as above. Signer Name: Akil Washington MD Signed: 03/12/2022 2:03 PM Workstation Name: [id number]
[2022-03-12] MEDS: risperiDONE 0.25 MG TAB PO SCH (21:18)
[2022-03-13 06:21] LABS: Hematocrit 31.1 % (35.5-45.6); Hemoglobin 9.8 gm/dl (11.8-15.2); Mean Corpuscular HGB Conc 31 % (32-34); Mean Corpuscular Volume 81 fl (84-94); Platelet Count 506 K/mm3 (140-440); Red Blood Count 3.86 M/mm3 (3.65-5.03); Red Cell Distribution Width 16.7 % (13.2-15.2)
[2022-03-13 06:44] LABS: Albumin 2.5 g/dL (3.9-5)
[2022-03-13] MEDS ORDERED: SODIUM CHLORIDE 0.9% 1000 ML 1,000 ML IV SCH (09:00)
--- NOTE | 2022-03-13 09:02 | Progress Note ---
Assessment and Plan Assessment and plan: This is a 67-year-old male with known past medical history of vascular dementia, cerebral atherosclerosis, BPH, gastric bypass, renal insufficency, HTN, thoracic aortic aneurysm without rupture, nicotine dependence, benign lungs nodules s/p LDCT, RA, and debility admitted for NSTEMI, AFib with RVR, and MARIE Hospital Course to Date: 03/09: Stable on RA, denied ay pain nor any discomfort at this time. SR with PACs noted on the monitor, VSS. Renal function mild improvement in renal function this am. Continue schedule BB for rate control and therapeutic Lovenox subQ. 2D echo pending and Cardiology consulted. Nephrology is also following. 03/10: More awake today but confused, remains stable on RA. ST with frequent PACs, VSS. Per cardio patient is most likely in MATs. 2D echo still pending, continue BB. Renal function is stable, continue current care per nephro. Nicotine patch added for increase cigarettes urges. Patient's brother provided contact for 3 providers who patient have seen in the past, medical records requested. 03/11: On amiodarone gtt per cardio. Remains in ST with PACs on the monitor, VSS. Plan to switch amio gtt, continue BB. Received records from patient's providers, medical history updated. Per records patient was on Wellbutrin for tobacco dependence but was switched to Chantix in August of this year and patient has not been seen by any of these providers since August 2021. Mental health/spych was also consulted for further eval and treat. 03/12: Patient seen and examined Case discussed with infectious disease concerning for possible sepsis chest x-ray reviewed no acute pneumonia UA without any concern for UTI. Patient does have some abdominal tenderness for which have ordered a CT abdomen and pelvis with oral contrast to further evaluate. We will monitor for worsening renal function as patient has a baseline CKD. Unfortunately due to this cannot get IV contrast. ID started the patient on cefepime 1 g every 12 hours while we will monitor. In the meantime patient can be transferred to telemetry continues on amiodarone p.o. for A. fib. Remains critically ill at this time. 03/13: Patient seen and examined, more lethargic today, May need NGT for Tube feeds if not improving. CTAP was unremarkable. Will start on fluids, cultures remains negative, low grade temp noted. May need LP if no improvement in am. UDS positive for THC on 03/08 No family present. Lady friend visited yesterday, not sure relationship to discuss his clinical condition. Received rispiradone but was already with similar lethargy at the time. Assessment and Plan #NSTEMI (non-ST elevated myocardial infarction) #New Onset Atrial Fibrillation with RVR #Hypertension - Presented with AMS, found in AFib with RVR in the ED with elevated troponin - No report of previous Afib history, most likely new onset - Troponin downtrending - Per patient's brother patient sees a PCP in [place], however patient has been refusing to go to the doctor - s/p Pinkyzejoe gtt - Cardiology consulted, appreciate recommendations - Patient is ST with PACs on the monitor. Per cardio most likely MATs. Patient denied any chest pain, VSS - On Amiodarone gtt, plan to switch to PO today - Continue BB and therapeutic Lovenox - 2D Echo noted, EF 25-30% - Continue blood pressure monitor per protocol - Maintain SBP less than 160 #Acute kidney injury(MARIE) - Baseline renal function is unknown, most likely prerenal secondary to above - Renal function remains stable - Neprology consulted, appreciated recommendations - Strict intake and output - Avoid nephrotoxic medications; Renally dose medications - Monitor and replace electrolytes as needed #SIRS (Systemic Inflammatory Response Syndrome)/Sepsis - Presented with leukocytosis and tachycardia, but afebrile - X1 dose of Empiric IV antibiotic given in the ED - UA unremakarble, Blood cultures with NGTD - Patient remains afebrile, leukocytosis improved - Will continue to monitor for now - F/u on cultures #Acute Metabolic Encephalopathy #Vascular Dementia - Presented with increased weakness and decreased responsiveness over the past 1 week - Probably secondary to above - Mentation improved this am, still with periods of confusion - Verbal prompting, verbal redirection - Avoid benzodiazepine to reduce the possibility of delirium - Maintenance of sleep-wake cycle #Severe Arthritis #Debility - Supportive measures - PRN analgesia for pain control - PT/OT consulted #Nicotine Dependence - Per patient he smoke at least a pack a day - Was initially on wellbutrin at home, but was switched to Chantix back in [facility] - smoking cessation education provided. Patient verbalized understanding and agreed with the info provided - Nicotine qDay - Mental/Psych consulted for further eval #GI/DVT Prophylaxis - PPI- Pepcid - Lovenox SubQ - SCDs bilateral lower extremities while in bed, #Advance Care Planning - Disease education data, care plan, diagnoses, and prognosis were discussed with patient and patient's brother at the bedside. Patient is a FULL code. They acknowledged understanding and agreed with current care plan. The high probability of a clinically significant, sudden or life threatening deterioration of the [multiple] system(s) required my full and direct attention, intervention and personal management. The aggregate critical care time was [60] minutes. This time is in addition to time spent performing reported procedures but includes the following: [x] Data Review and interpretation [x] Patient assessment and monitoring of vital signs [x] Documentation [x] Medication orders and management Disposition Plan: IMCU Total Time Spent with Patient (Minutes): 60 History Interval history: Patient seen and examined at the bedside. Less responsive today however awake. Very lethargic, No adverse event reported overnight Hospitalist Physical - Physical exam Narrative exam: General appearance: Present: no acute distress, well-nourished, obese, poorly responsive - EENT Eyes: Present: PERRL ENT: hearing intact - Neck Neck: Present: normal ROM - Respiratory Respiratory effort: normal Respiratory: bilateral: diminished - Cardiovascular Rhythm: regularly irregular Heart Sounds: Present: S1 & S2 - Extremities Extremities: no ischemia, pulses intact, pulses symmetrical Extremity abnormal: edema - Peripheral Assessment Generalized Edema Type: Non-pitting Edema Degree: 1+ Capillary Refill: < 3 seconds Skin Temperature: Warm Peripheral Pulses: within normal limits - Abdominal General gastrointestinal: soft, non-distended, normal bowel sounds. some tenderness rlq - Integumentary Integumentary: Present: clear, warm, dry - Psychiatric Psychiatric: cooperative, agitated, other (Awake but confused) - Neurologic Neurologic: moves all extremities, other (Awake but confused, following SOME commands) very lethargic - Allied Health Allied health notes reviewed: nursing, case management - Constitutional Vitals: Temp Pulse Resp BP Pulse Ox 99.8 F H 76 18 145/96 96 03/13/22 07:42 03/13/22 07:42 03/13/22 07:42 03/13/22 07:42 03/13/22 07:42 General appearance: Present: no acute distress, well-nourished, obese HEART Score - HEART Score Troponin: Troponin T 0.119 ng/mL (0.00-0.029) H* D 03/09/22 02:13 Results - Labs CBC & Chem 7: 03/13/22 04:36 03/13/22 04:36 Labs: Laboratory Last Values WBC 15.2 K/mm3 (4.5-11.0) H 03/13/22 04:36 RBC 3.86 M/mm3 (3.65-5.03) 03/13/22 04:36 Hgb 9.8 gm/dl (11.8-15.2) L 03/13/22 04:36 Hct 31.1 % (35.5-45.6) L 03/13/22 04:36 MCV 81 fl (84-94) L 03/13/22 04:36 MCH 25 pg (28-32) L 03/13/22 04:36 MCHC 31 % (32-34) L 03/13/22 04:36 RDW 16.7 % (13.2-15.2) H 03/13/22 04:36 Plt Count 506 K/mm3 (140-440) H 03/13/22 04:36 Lymph % (Auto) 9.0 % (13.4-35.0) L 03/08/22 12:29 [place] % (Auto) 11.2 % (0.0-7.3) H 03/08/22 12:29 Eos % (Auto) 1.9 % (0.0-4.3) 03/08/22 12:29 Baso % (Auto) 0.9 % (0.0-1.8) 03/08/22 12:29 Lymph # (Auto) 1.1 K/mm3 (1.2-5.4) L 03/08/22 12:29 [place] # (Auto) 1.4 K/mm3 (0.0-0.8) H 03/08/22 12:29 Eos # (Auto) 0.2 K/mm3 (0.0-0.4) 03/08/22 12:29 Baso # (Auto) 0.1 K/mm3 (0.0-0.1) 03/08/22 12:29 Add Manual Diff Complete 03/09/22 02:13 Total Counted 100 03/09/22 02:13 Seg Neutrophils % 77.0 % (40.0-70.0) H 03/08/22 12:29 Seg Neuts % (Manual) 80.0 % (40.0-70.0) H 03/09/22 02:13 Band Neutrophils % 0 % 03/09/22 02:13 Lymphocytes % (Manual) 11.0 % (13.4-35.0) L 03/09/22 02:13 Reactive Lymphs % (Man) 0 % 03/09/22 02:13 Monocytes % (Manual) 8.0 % (0.0-7.3) H 03/09/22 02:13 Eosinophils % (Manual) 1.0 % (0.0-4.3) 03/09/22 02:13 Basophils % (Manual) 0 % (0.0-1.8) 03/09/22 02:13 Metamyelocytes % 0 % 03/09/22 02:13 Myelocytes % 0 % 03/09/22 02:13 Promyelocytes % 0 % 03/09/22 02:13 Blast Cells % 0 % 03/09/22 02:13 Nucleated RBC % Not Reportable 03/09/22 02:13 Seg Neutrophils # 9.8 K/mm3 (1.8-7.7) H 03/08/22 12:29 Seg Neutrophils # Man 8.5 K/mm3 (1.8-7.7) H 03/09/22 02:13 Band Neutrophils # 0.0 K/mm3 03/09/22 02:13 Lymphocytes # (Manual) 1.2 K/mm3 (1.2-5.4) 03/09/22 02:13 Abs React Lymphs (Man) 0.0 K/mm3 03/09/22 02:13 Monocytes # (Manual) 0.8 K/mm3 (0.0-0.8) 03/09/22 02:13 Eosinophils # (Manual) 0.1 K/mm3 (0.0-0.4) 03/09/22 02:13 Basophils # (Manual) 0.0 K/mm3 (0.0-0.1) 03/09/22 02:13 Metamyelocytes # 0.0 K/mm3 03/09/22 02:13 Myelocytes # 0.0 K/mm3 03/09/22 02:13 Promyelocytes # 0.0 K/mm3 03/09/22 02:13 Blast Cells # 0.0 K/mm3 03/09/22 02:13 WBC Morphology Not Reportable 03/09/22 02:13 Hypersegmented Neuts Not Reportable 03/09/22 02:13 Hyposegmented Neuts Not Reportable 03/09/22 02:13 Hypogranular Neuts Not Reportable 03/09/22 02:13 Smudge Cells Not Reportable 03/09/22 02:13 Toxic Granulation Not Reportable 03/09/22 02:13 Toxic Vacuolation Not Reportable 03/09/22 02:13 Dohle Bodies Not Reportable 03/09/22 02:13 Pelger-Huet Anomaly Not Reportable 03/09/22 02:13 Marylin Rods Not Reportable 03/09/22 02:13 Platelet Estimate Consistent w auto 03/09/22 02:13 Clumped Platelets Not Reportable 03/09/22 02:13 Plt Clumps, EDTA Not Reportable 03/09/22 02:13 Large Platelets Not Reportable 03/09/22 02:13 Giant Platelets Not Reportable 03/09/22 02:13 Platelet Satelliting Not Reportable 03/09/22 02:13 Plt Morphology Comment Not Reportable 03/09/22 02:13 RBC Morphology Normal 03/09/22 02:13 Dimorphic RBCs Not Reportable 03/09/22 02:13 Polychromasia Not Reportable 03/09/22 02:13 Hypochromasia Not Reportable 03/09/22 02:13 Poikilocytosis Not Reportable 03/09/22 02:13 Anisocytosis Not Reportable 03/09/22 02:13 Microcytosis Not Reportable 03/09/22 02:13 Macrocytosis Not Reportable 03/09/22 02:13 Spherocytes Not Reportable 03/09/22 02:13 Pappenheimer Bodies Not Reportable 03/09/22 02:13 Sickle Cells Not Reportable 03/09/22 02:13 Target Cells Not Reportable 03/09/22 02:13 Tear Drop Cells Not Reportable 03/09/22 02:13 Ovalocytes Not Reportable 03/09/22 02:13 Helmet Cells Not Reportable 03/09/22 02:13 [place] Bodies Not Reportable 03/09/22 02:13 [place] Rings Not Reportable 03/09/22 02:13 [place] Cells Not Reportable 03/09/22 02:13 Bite Cells Not Reportable 03/09/22 02:13 Crenated Cell Not Reportable 03/09/22 02:13 Elliptocytes Not Reportable 03/09/22 02:13 Acanthocytes (Spur) Not Reportable 03/09/22 02:13 Rouleaux Not Reportable 03/09/22 02:13 Hemoglobin C Crystals Not Reportable 03/09/22 02:13 Schistocytes Not Reportable 03/09/22 02:13 Malaria parasites Not Reportable 03/09/22 02:13 Cristino Bodies Not Reportable 03/09/22 02:13 Hem Pathologist Commnt No 03/09/22 02:13 PT 15.7 Sec. (12.2-14.9) H 03/08/22 12:29 INR 1.09 (0.87-1.13) 03/08/22 12:29 Sodium 139 mmol/L (137-145) 03/13/22 04:36 Potassium 4.7 mmol/L (3.6-5.0) 03/13/22 04:36 Chloride 106.5 mmol/L (98-107) 03/13/22 04:36 Carbon Dioxide 21 mmol/L (22-30) L 03/13/22 04:36 Anion Gap 16 mmol/L 03/13/22 04:36 BUN 26 mg/dL (9-20) H 03/13/22 04:36 Creatinine 2.1 mg/dL (0.8-1.3) H 03/13/22 04:36 Estimated GFR 38 ml/min 03/13/22 04:36 BUN/Creatinine Ratio 12 % 03/13/22 04:36 Glucose 101 mg/dL (75-100) H 03/13/22 04:36 POC Glucose 82 mg/dL (70-105) 03/10/22 06:32 Lactic Acid 1.40 mmol/L (0.7-2.0) 03/08/22 12:29 Calcium 10.0 mg/dL (8.4-10.2) 03/13/22 04:36 Phosphorus 2.60 mg/dL (2.5-4.5) 03/11/22 03:52 Magnesium 2.10 mg/dL (1.7-2.3) 03/11/22 03:52 Total Bilirubin 0.70 mg/dL (0.1-1.2) 03/13/22 04:36 AST 16 units/L (5-40) 03/13/22 04:36 ALT 11 units/L (7-56) 03/13/22 04:36 Alkaline Phosphatase 105 units/L (35-129) 03/13/22 04:36 Ammonia 14.0 umol/L (25-60) L 03/08/22 12:29 Total Creatine Kinase 53 units/L (55-170) L 03/08/22 12:29 Troponin T 0.119 ng/mL (0.00-0.029) H* D 03/09/22 02:13 C-Reactive Protein 16.20 mg/dL (0.00-1.30) H 03/08/22 12:29 Total Protein 7.0 g/dL (6.3-8.2) 03/13/22 04:36 Albumin 2.5 g/dL (3.9-5) L 03/13/22 04:36 Albumin/Globulin Ratio 0.6 % 03/13/22 04:36 Triglycerides 105 mg/dL (2-149) 03/08/22 12:29 Cholesterol 136 mg/dL (50-199) 03/08/22 12:29 LDL Cholesterol Direct 76 mg/dL (50-130) 03/08/22 12:29 HDL Cholesterol 35 mg/dL (40-59) L 03/08/22 12:29 Cholesterol/HDL Ratio 3.88 % 03/08/22 12:29 PTH Intact 45.32 pg/mL (15-65) 03/11/22 03:52 Urine Color Yellow (Yellow) 03/08/22 14:38 Urine Turbidity Clear (Clear) 03/08/22 14:38 Urine pH 6.0 (5.0-7.0) 03/08/22 14:38 Ur Specific [place] 1.015 (1.003-1.030) 03/08/22 14:38 Urine Protein 30 mg/dl mg/dL (Negative) 03/08/22 14:38 Urine Glucose (UA) Negative mg/dL (Negative) 03/08/22 14:38 Urine Ketones Negative mg/dL (Negative) 03/08/22 14:38 Urine Blood 1+ (Negative) 03/08/22 14:38 Urine Nitrite Negative (Negative) 03/08/22 14:38 Ur Reducing Substances Negative (Negative) 03/08/22 14:38 Urine Bilirubin Negative (Negative) 03/08/22 14:38 Urine Urobilinogen 0.0 mg/dL (<2.0) 03/08/22 14:38 Ur Leukocyte Esterase Negative (Negative) 03/08/22 14:38 Urine WBC (Auto) 3.0 /HPF (0.0-6.0) 03/08/22 14:38 Urine RBC (Auto) 5.0 /HPF (0.0-6.0) 03/08/22 14:38 U Epithel Cells (Auto) 3.0 /HPF (0-13.0) 03/08/22 14:38 Urine Bacteria (Auto) 1+ /HPF (Negative) 03/08/22 14:38 Hyaline Casts 2 /LPF 03/08/22 14:38 Urine Mucus 1+ /HPF 03/08/22 14:38 Urine Creatinine 167.4 mg/dL (0.1-20.0) H 03/09/22 15:25 Urine Sodium 49 mmol/L 03/09/22 15:25 Salicylates < 0.3 mg/dL (2.8-20.0) L 03/08/22 12:29 Urine Opiates Screen Negative 03/08/22 14:38 Urine Methadone Screen Negative 03/08/22 14:38 Acetaminophen 5.0 ug/mL (10.0-30.0) L 03/08/22 12:29 Ur Barbiturates Screen Negative 03/08/22 14:38 Ur Phencyclidine Scrn Negative 03/08/22 14:38 Ur Amphetamines Screen Negative 03/08/22 14:38 U Benzodiazepines Scrn Negative 03/08/22 14:38 Urine Cocaine Screen Negative 03/08/22 14:38 U Marijuana (THC) Screen Positive 03/08/22 14:38 Drugs of Abuse Note Disclamer 03/08/22 14:38 Plasma/Serum Alcohol < 0.01 % (0-0.07) 03/08/22 12:29 Microbiology: Microbiology 08/02/22 12:29 Peripheral/Venous Blood Culture - Preliminary NO GROWTH AFTER 4 DAYS 03/08/22 12:29 Peripheral/Venous Blood Culture - Preliminary NO GROWTH AFTER 4 DAYS Arteaga/IV: Voiding Method Indwelling Catheter Active Medications - Current Medications Current Medications: Generic Name Dose Route Start Last Admin Trade Name Freq PRN Reason Stop Dose Admin Acetaminophen 650 mg 03/08/22 20:07 03/11/22 21:37 Acetaminophen 325 Mg Tab PO 650 mg Q6H PRN Administration Pain MILD(1-3)/Fever >100.5/HILTON Albuterol 2.5 mg 03/08/22 20:07 Albuterol 2.5 Mg/3 Ml Nebu IH Q3HRT PRN Shortness Of Breath Amiodarone HCl 200 mg 03/11/22 14:00 03/12/22 21:16 Amiodarone 200 Mg Tab PO 200 mg BID FRANCESCA Administration Aspirin 81 mg 03/11/22 10:00 03/12/22 11:28 Aspirin 81 Mg Tab Chew PO 81 mg QDAY FRANCESCA Administration Atorvastatin Calcium 40 mg 03/11/22 22:00 03/12/22 21:16 Atorvastatin 40 Mg Tab PO 40 mg QHS FRANCESCA Administration Enoxaparin Sodium 90 mg 03/10/22 10:15 03/12/22 21:16 Enoxaparin 100 Mg/1 Ml Inj SUB-Q 90 mg Q12HR FRANCESCA Administration Famotidine 20 mg 03/09/22 10:00 03/12/22 11:29 Famotidine 20 Mg/2 Ml Inj IV 20 mg QDAY FRANCESCA Administration Haloperidol Lactate 5 mg 03/10/22 18:12 03/12/22 02:36 Haloperidol Lactate 5 Mg/1 Ml Inj IV 5 mg Q6H PRN Administration Agitation Cefepime HCl 1 gm in 100 mls @ 200 mls/hr 03/12/22 11:00 03/12/22 23:01 Cefepime/Ns 1 Gm/100 Ml IV 200 mls/hr Q12H FRANCESCA Administration Protocol Sodium Chloride 1,000 mls @ 999 mls/hr 03/13/22 08:52 Nacl 0.9% 1000 Ml IV 03/13/22 09:52 BOLUS ONE Sodium Chloride 1,000 mls @ 75 mls/hr 03/13/22 09:00 Nacl 0.9% 1000 Ml IV DIRECT FRANCESCA Methotrexate 2.5 mg 03/11/22 16:00 03/11/22 17:00 Methotrexate 2.5 Mg Tab (Dose Weekly Only) PO 2.5 mg Fr FRANCESCA Administration Metoprolol Tartrate 50 mg 03/10/22 17:49 03/12/22 21:17 Metoprolol Tartrate 25 Mg Tab PO 50 mg BID FRANCESCA Administration Morphine Sulfate 2 mg 03/08/22 20:07 Morphine 4 Mg/1 Ml Inj IV Q8H PRN Pain , Severe (7-10) Nicotine 21 mg 03/10/22 10:00 03/12/22 11:28 Nicotine 21 Mg/24 Hr Patch TD 21 mg QDAY FRANCESCA Administration Oxycodone/Acetaminophen 1 tab 03/08/22 20:07 03/11/22 21:37 Oxycodone /Acetaminophen 5-325mg Tab PO 1 tab Q6H PRN Administration Pain, Moderate (4-6) Risperidone 0.5 mg 03/12/22 22:00 03/12/22 21:18 Risperidone 0.25 Mg Tab PO 0.5 mg BID FRANCESCA Administration Sodium Chloride 10 ml 03/08/22 22:00 03/12/22 21:18 Sodium Chloride 0.9% 10 Ml Flush Syringe IV 10 ml BID FRANCESCA Administration Sodium Chloride 10 ml 03/08/22 20:07 Sodium Chloride 0.9% 10 Ml Flush Syringe IV PRN PRN LINE FLUSH Tramadol HCl 50 mg 03/08/22 20:11 03/12/22 01:02 Tramadol 50 Mg Tab PO 50 mg Q6H PRN Administration Pain, Moderate (4-6)
[2022-03-13] MEDS: ENOXAPARIN 100 MG/1 ML INJ SUB-Q SCH ×2 (09:35→22:10)
[2022-03-13] MEDS: FAMOTIDINE 20 MG/2 ML INJ IV SCH (09:35)
[2022-03-13] MEDS: NICOTINE 21 MG/24 HR PATCH TD SCH (09:35)
[2022-03-13] MEDS ORDERED: SODIUM CHLORIDE 0.9% 1000 ML 1,000 ML IV ONE (10:00)
--- NOTE | 2022-03-13 10:00 | Progress Note ---
Assessment and Plan 1. Acute kidney injury: Vasomotor MARIE superimposed on CKD in the setting of A.Fib with RVR. Renal US negative. Monitor renal function. Creatinine level has increased today. On IV fluids. Avoid nephrotoxic agents. Meds dosage based on GFR. 2. FEN: Replete lytes as needed. Monitor lytes and volume status. 3. A.fib with RVR: New diagnosis. Amio. Lovenox. Metoprolol. Followed by Cards. Monitor. 4. Acute metabolic encephalopathy, POA: Monitor. 5. NSTEMI (non-ST elevated myocardial infarction): EF: 25-30%. BB. Lovenox. Followed by Cards. 6. HFrEF: EF: 25-30%. 7. Microcytic Anemia, POA: Trend. Subjective: Patient was seen and examined at the bedside. Examination: General appearance: well-developed, appears stated age, no distress HEENT: atraumatic, no icterus Neck: trachea midline Respiratory: ctab Heart: S1S2, irregular, no murmur Abdomen: soft, bowel sounds heard, NT Integumentary: no obvious rash Neurologic: somnolent, not following any command Ext: no edema Subjective Date of service: 03/13/22 Principal diagnosis: NSTEMI ?Type 2 [place] Objective - Vital Signs Vital signs: Vital Signs - 12hr 03/12/22 03/13/22 03/13/22 23:11 05:04 05:48 Temperature 98.1 F 98.9 F Pulse Rate 47 L 63 Respiratory 20 Rate Blood Pressure 103/65 128/82 O2 Sat by Pulse 99 94 Oximetry 03/13/22 07:42 Temperature 99.8 F H Pulse Rate 76 Respiratory 18 Rate Blood Pressure 145/96 O2 Sat by Pulse 96 Oximetry - Lab 03/13/22 04:36 03/13/22 04:36 Most recent lab results Calcium 10.0 mg/dL (8.4-10.2) 03/13/22 04:36 Phosphorus 2.60 mg/dL (2.5-4.5) 03/11/22 03:52 Magnesium 2.10 mg/dL (1.7-2.3) 03/11/22 03:52 Urine Creatinine 167.4 mg/dL (0.1-20.0) H 03/09/22 15:25 Urine Sodium 49 mmol/L 03/09/22 15:25 Medications & Allergies - Medications Allergies/Adverse Reactions: Allergies lisinopril Allergy (Verified 03/11/22 15:41) Hives Home Medications: Home Medications Medication Instructions Recorded Confirmed Last Taken Type Ibuprofen [Motrin] 400 mg PO Q8H PRN #30 tablet 08/28/15 Unknown Rx Oxycodone HCl/Acetaminophen 1 each PO Q6HR PRN #20 tablet 08/28/15 Unknown Rx [Percocet 10/325 mg] Promethazine [Phenergan TAB] 25 mg PO Q6HR PRN #20 tab 08/28/15 Unknown Rx Tamsulosin [Flomax] 0.4 mg PO QDAY #7 cap 08/28/15 Unknown Rx amLODIPine [Norvasc] 10 mg PO DAILY #30 tab 08/28/15 Unknown Rx AtorvaSTATin [Lipitor] 40 mg PO QHS 03/11/22 03/11/22 Unknown History Metoprolol Succinate [Toprol Xl] 50 mg PO DAILY 03/11/22 03/11/22 Unknown History Varenicline Tartrate [Chantix] 1 mg PO BID 03/11/22 03/11/22 Unknown History hydroCHLOROthiazide 12.5 mg PO DAILY 03/11/22 03/11/22 Unknown History [Hydrochlorothiazide] metHOTREXate sodium [Methotrexate] 2.5 mg PO 1XW 03/11/22 03/11/22 Unknown History Active Medications: Generic Name Dose Route Start Last Admin Trade Name Freq PRN Reason Stop Dose Admin Acetaminophen 650 mg 03/08/22 20:07 03/11/22 21:37 Acetaminophen 325 Mg Tab PO 650 mg Q6H PRN Administration Pain MILD(1-3)/Fever >100.5/HILTON Albuterol 2.5 mg 03/08/22 20:07 Albuterol 2.5 Mg/3 Ml Nebu IH Q3HRT PRN Shortness Of Breath Amiodarone HCl 200 mg 03/11/22 14:00 03/12/22 21:16 Amiodarone 200 Mg Tab PO 200 mg BID FRANCESCA Administration Aspirin 81 mg 03/11/22 10:00 03/12/22 11:28 Aspirin 81 Mg Tab Chew PO 81 mg QDAY FRANCESCA Administration Atorvastatin Calcium 40 mg 03/11/22 22:00 03/12/22 21:16 Atorvastatin 40 Mg Tab PO 40 mg QHS FRANCESCA Administration Enoxaparin Sodium 90 mg 03/10/22 10:15 03/13/22 09:35 Enoxaparin 100 Mg/1 Ml Inj SUB-Q 90 mg Q12HR FRANCESCA Administration Famotidine 20 mg 03/09/22 10:00 03/13/22 09:35 Famotidine 20 Mg/2 Ml Inj IV 20 mg QDAY FRANCESCA Administration Haloperidol Lactate 5 mg 03/10/22 18:12 03/12/22 02:36 Haloperidol Lactate 5 Mg/1 Ml Inj IV 5 mg Q6H PRN Administration Agitation Cefepime HCl 1 gm in 100 mls @ 200 mls/hr 03/12/22 11:00 03/12/22 23:01 Cefepime/Ns 1 Gm/100 Ml IV 200 mls/hr Q12H FRANCESCA Administration Protocol Sodium Chloride 1,000 mls @ 999 mls/hr 03/13/22 10:00 03/13/22 09:36 Nacl 0.9% 1000 Ml IV 03/13/22 11:00 999 mls/hr BOLUS ONE Administration Sodium Chloride 1,000 mls @ 75 mls/hr 03/13/22 09:00 Nacl 0.9% 1000 Ml IV DIRECT FRANCESCA Methotrexate 2.5 mg 03/11/22 16:00 03/11/22 17:00 Methotrexate 2.5 Mg Tab (Dose Weekly Only) PO 2.5 mg Fr FRANCESCA Administration Metoprolol Tartrate 50 mg 03/10/22 17:49 03/12/22 21:17 Metoprolol Tartrate 25 Mg Tab PO 50 mg BID FRANCESCA Administration Morphine Sulfate 2 mg 03/08/22 20:07 Morphine 4 Mg/1 Ml Inj IV Q8H PRN Pain , Severe (7-10) Nicotine 21 mg 03/10/22 10:00 03/13/22 09:35 Nicotine 21 Mg/24 Hr Patch TD 21 mg QDAY FRANCESCA Administration Oxycodone/Acetaminophen 1 tab 03/08/22 20:07 03/11/22 21:37 Oxycodone /Acetaminophen 5-325mg Tab PO 1 tab Q6H PRN Administration Pain, Moderate (4-6) Risperidone 0.5 mg 03/12/22 22:00 03/12/22 21:18 Risperidone 0.25 Mg Tab PO 0.5 mg BID FRANCESCA Administration Sodium Chloride 10 ml 03/08/22 22:00 03/13/22 09:36 Sodium Chloride 0.9% 10 Ml Flush Syringe IV 10 ml BID FRANCESCA Administration Sodium Chloride 10 ml 03/08/22 20:07 Sodium Chloride 0.9% 10 Ml Flush Syringe IV PRN PRN LINE FLUSH Tramadol HCl 50 mg 03/08/22 20:11 03/12/22 01:02 Tramadol 50 Mg Tab PO 50 mg Q6H PRN Administration Pain, Moderate (4-6)
[2022-03-13] MEDS: CEFEPIME/NS 1 GM/100 ML 1 GM/100 ML BAG IV SCH ×2 (11:08→23:45)
--- NOTE | 2022-03-13 11:18 | Progress Note ---
Subjective - Reason for Consult Consult date: 03/13/22 Reason for consult: mental health evaluation - Chief Complaint Chief complaint: The patient was seen this today. He is calm, and lethargic; he is easily aroused, nonverbal. He is unable to relate information due to his somnolence. REVIEW OF SYSTEMS MENTAL STATUS Assessment Dementia Treatment Plan Continue home meds Medical: Per primary SItter: Defer to primary Deposition: Do not recommend acute psychiatric inpatient. . Will sign off. Thanks Case staffed with Dr. Flores Medications and Allergies Mental Status Exam - Vital signs Last Vital Signs Temp 99.8 F H 03/13/22 07:42 Pulse 76 03/13/22 07:42 Resp 18 03/13/22 07:42 BP 145/96 03/13/22 07:42 Pulse Ox 96 03/13/22 07:42
[2022-03-13] MEDS: risperiDONE 0.25 MG TAB PO SCH (11:37)
[2022-03-13] MEDS ORDERED: NALOXONE 0.4 MG/1 ML INJ IV SCH (13:51)
[2022-03-13] MEDS: ASPIRIN 81 MG TAB CHEW PO SCH ×2 (15:08→15:20)
[2022-03-13] MEDS: AMIODARONE 200 MG TAB PO SCH ×2 (15:08→15:19)
[2022-03-13] MEDS: METOPROLOL TARTRATE 25 MG TAB PO SCH ×3 (15:08→22:09)
--- NOTE | 2022-03-13 15:33 | Progress Note ---
Assessment and Plan Echo 03/09/2022 - EF 25 to 30%. Severe global hypokinesis of left ventricle. Moderate concentric LVH. Mild diastolic dysfunction is present, impaired relaxation pattern. Moderate aortic regurgitation. No pericardial effusion. Conservative cardiac mgmt recommended in light of mental status. Continue anticoagulation with SQ Lovenox. Continue PO Amiodarone 200mg BID. Will titrate up PO Lopressor if/when BP permits. Last dose not given as pt not able to swallow. If no route for PO meds and any recurrent tachyarrhythmias, can restart IV Amiodarone gtt. ACEI/ARB/ARNI deferred due to renal fxn and to allow for titration of BB as needed. Pt seen in conjunction with Dr. Nuñez, who agrees with the assessment and plan of care. - Patient Problems (1) Altered mental status Current Visit: Yes Status: Acute (2) NSTEMI (non-ST elevated myocardial infarction) Current Visit: Yes Status: Acute (3) Cardiomyopathy Current Visit: Yes Status: Acute (4) PAF (paroxysmal atrial fibrillation) Current Visit: Yes Status: Acute (5) Multifocal atrial tachycardia Current Visit: Yes Status: Acute (6) MARIE (acute kidney injury) Current Visit: Yes Status: Acute (7) Cerebral atherosclerosis Current Visit: Yes Status: Chronic (8) Vascular dementia Current Visit: Yes Status: Chronic Qualifiers: Dementia behavioral disturbance: with behavioral disturbance Qualified Code(s): F01.51 - Vascular dementia with behavioral disturbance Subjective Date of service: 03/13/22 Principal diagnosis: NSTEMI ?Type 2 [place] Interval history: Not responding to questions. Opens eyes and follows commands. Objective Vital Signs Temp Pulse Pulse Resp BP Pulse Ox 03/13/22 11:36 99.5 F 64 18 177/94 98 03/13/22 10:00 89 89 18 97 03/13/22 07:42 99.8 F H 76 18 145/96 96 03/13/22 05:48 98.9 F 03/13/22 05:04 63 128/82 94 03/12/22 23:11 98.1 F 47 L 20 103/65 99 03/12/22 22:00 120 H 20 98 03/12/22 21:17 140 H 136/88 03/12/22 20:00 120 H 03/12/22 19:43 98 03/12/22 19:08 98.6 F 20 136/88 03/12/22 18:11 128 H 31 H 106/71 98 03/12/22 18:01 117 H 46 H 106/71 99 03/12/22 17:51 110 H 35 H 106/71 97 03/12/22 17:41 101 H 32 H 106/71 98 03/12/22 17:31 124 H 35 H 106/71 98 03/12/22 17:21 123 H 30 H 106/71 96 03/12/22 17:00 104 H 33 H 106/71 100 03/12/22 16:31 115 H 30 H 111/75 98 03/12/22 16:00 97.6 F 110 H 82 31 H 111/75 98 - Physical Examination General: No Apparent Distress HEENT: Positive: Normocephaly, Mucus Membranes Dry Neck: Positive: trachea midline. Negative: JVD/HJR Cardiac: Positive: Reg Rate and Rhythm, S1/S2 Lungs: Positive: clear to auscultation Neuro: Positive: Other (somnolent) Abdomen: Positive: Soft Skin: Negative: Rash Extremities: Present: upper extr. pulses, warm. Absent: edema - Labs and Meds Cardiac Enzymes 03/13/22 Range/Units 04:36 AST 16 (5-40) units/L CBC 03/13/22 Range/Units 04:36 WBC 15.2 H (4.5-11.0) K/mm3 RBC 3.86 (3.65-5.03) M/mm3 Hgb 9.8 L (11.8-15.2) gm/dl Hct 31.1 L (35.5-45.6) % Plt Count 506 H (140-440) K/mm3 Comprehensive Metabolic Panel 03/13/22 Range/Units 04:36 Sodium 139 (137-145) mmol/L Potassium 4.7 (3.6-5.0) mmol/L Chloride 106.5 (98-107) mmol/L Carbon Dioxide 21 L (22-30) mmol/L BUN 26 H (9-20) mg/dL Creatinine 2.1 H (0.8-1.3) mg/dL Glucose 101 H (75-100) mg/dL Calcium 10.0 (8.4-10.2) mg/dL AST 16 (5-40) units/L ALT 11 (7-56) units/L Alkaline Phosphatase 105 (35-129) units/L Total Protein 7.0 (6.3-8.2) g/dL Albumin 2.5 L (3.9-5) g/dL - Imaging and Cardiology EKG: report reviewed, image reviewed Echo: report reviewed - Telemetry EKG Rhythm: Sinus Rhythm - EKG Supraventricular dysrhythmia: multifocal atrial tachyca Ventricular dysrhythmias: ventricular premature com Myocardial infarction: septal SD (old age or ind, anterior SD (old age or i - Allied health notes Allied health notes reviewed: nursing
--- NOTE | 2022-03-13 15:59 | Event Note ---
Date: 03/13/22 Patient re-evaluated, more awake and tracking but not following commands. Bp mildly elevated, unable to safely tolerate PO. No worsening respiratory distress but with noted Tachyarrythymia Will check ABG Obtain Head CT change PO amio to IV UNTIL NGT established for oral meds Check ammonia level Patient received Ativan prior to CTAP yesterday. Continue to monitor. Updated family friend 35mins critical care time
[2022-03-13] MEDS: AMIODARONE 900 MG in DEXTROSE 5% IN WATER 482 ML IV SCH ×2 (16:22→22:24)
[2022-03-13 16:39] LABS: ABG Base Excess -3.1 mmol/L (-2.0-3.0); ABG HCO3 19.9 mmol/L (20.0-26.0); ABG Methemoglobin 0.5 % (0.0-1.5); ABG Oxygen Saturation 96.9 % (95.0-99.0); ABG PH 7.47 pH Units (7.350-7.450); ABG PO2 78.5 mm Hg (80.0-90.0)
--- NOTE | 2022-03-13 17:14 | XRay Report ---
ABDOMEN 1 VIEW(S) INDICATION / CLINICAL INFORMATION: doubhoff placement. COMPARISON: CT abdomen/pelvis from yesterday FINDINGS: TUBES / LINES: Dobbhoff tube tip in the proximal to mid stomach should be advanced another 10 cm into the duodenum. BOWEL GAS PATTERN: No significant abnormality. FREE AIR / EXTRALUMINAL GAS: None seen. ADDITIONAL FINDINGS: No significant additional findings. IMPRESSION: 1. DHT as above. Signer Name: Beto Jensen MD Signed: 03/13/2022 5:10 PM Workstation Name: [id number]
--- NOTE | 2022-03-13 18:26 | XRay Report ---
ABDOMEN 1 VIEW(S) INDICATION / CLINICAL INFORMATION: doubhoff placement. COMPARISON: Earlier today FINDINGS: TUBES / LINES: Dobbhoff tube position has not significantly changed and remains in the proximal to mi d stomach. The tube needs to be advanced at least 10 cm into the duodenum. BOWEL GAS PATTERN: No significant abnormality. FREE AIR / EXTRALUMINAL GAS: None seen. ADDITIONAL FINDINGS: No significant additional findings. IMPRESSION: 1. DHT as above. Signer Name: Beto Jensen MD Signed: 03/13/2022 6:21 PM Workstation Name: [id number]
--- NOTE | 2022-03-13 20:40 | XRay Report ---
ABDOMEN 1 VIEW(S) 8:17 PM INDICATION / CLINICAL INFORMATION: Dobhoff placement. COMPARISON: Earlier today. FINDINGS: TUBES / LINES: Dobbhoff tube is unchanged with tip in the stomach. BOWEL GAS PATTERN: No significant abnormality. FREE AIR / EXTRALUMINAL GAS: None seen. ADDITIONAL FINDINGS: No significant additional findings. IMPRESSION: 1. Dobbhoff tube unchanged. Signer Name: Akil Washington MD Signed: 03/13/2022 8:36 PM Workstation Name: [id number]
[2022-03-14 05:16] LABS: Hematocrit 29.8 % (35.5-45.6); Hemoglobin 9.3 gm/dl (11.8-15.2); Mean Corpuscular HGB Conc 31 % (32-34); Mean Corpuscular Volume 81 fl (84-94); Platelet Count 451 K/mm3 (140-440); Red Blood Count 3.69 M/mm3 (3.65-5.03); Red Cell Distribution Width 16.9 % (13.2-15.2)
[2022-03-14 05:28] LABS: Calcium 9.4 mg/dL (8.4-10.2)
--- NOTE | 2022-03-14 08:12 | Progress Note ---
Assessment and Plan Assessment and plan: This is a 67-year-old male with known past medical history of vascular dementia, cerebral atherosclerosis, BPH, gastric bypass, renal insufficency, HTN, thoracic aortic aneurysm without rupture, nicotine dependence, benign lungs nodules s/p LDCT, RA, and debility admitted for NSTEMI, AFib with RVR, and MARIE Hospital Course to Date: 03/09: Stable on RA, denied ay pain nor any discomfort at this time. SR with PACs noted on the monitor, VSS. Renal function mild improvement in renal function this am. Continue schedule BB for rate control and therapeutic Lovenox subQ. 2D echo pending and Cardiology consulted. Nephrology is also following. 03/10: More awake today but confused, remains stable on RA. ST with frequent PACs, VSS. Per cardio patient is most likely in MATs. 2D echo still pending, continue BB. Renal function is stable, continue current care per nephro. Nicotine patch added for increase cigarettes urges. Patient's brother provided contact for 3 providers who patient have seen in the past, medical records requested. 03/11: On amiodarone gtt per cardio. Remains in ST with PACs on the monitor, VSS. Plan to switch amio gtt, continue BB. Received records from patient's providers, medical history updated. Per records patient was on Wellbutrin for tobacco dependence but was switched to Chantix in August of this year and patient has not been seen by any of these providers since August 2021. Mental health/spych was also consulted for further eval and treat. 03/12: Patient seen and examined Case discussed with infectious disease concerning for possible sepsis chest x-ray reviewed no acute pneumonia UA without any concern for UTI. Patient does have some abdominal tenderness for which have ordered a CT abdomen and pelvis with oral contrast to further evaluate. We will monitor for worsening renal function as patient has a baseline CKD. Unfortunately due to this cannot get IV contrast. ID started the patient on cefepime 1 g every 12 hours while we will monitor. In the meantime patient can be transferred to telemetry continues on amiodarone p.o. for A. fib. Remains critically ill at this time. 03/13: Patient seen and examined, more lethargic today, May need NGT for Tube feeds if not improving. CTAP was unremarkable. Will start on fluids, cultures remains negative, low grade temp noted. May need LP if no improvement in am. UDS positive for THC on 03/08 No family present. Lady friend visited yesterday, not sure relationship to discuss his clinical condition. Received rispiradone but was already with similar lethargy at the time. 03/14: Patient seen and examined more awake today compared to yesterday but still not following any commands. CT head is negative.. ID broadened antibiotics and recommended lumbar puncture as there is no explanation as to the patient's altered mental status that has remained persistent. Again patient was given Ativan a few days ago for CT although that his mental status was still altered he was at least conversational. Lumbar puncture could not be performed today because the patient was moving around a lot. I am avoiding giving a repeat Ativan as I believe that this may have contributed to this recent change. We will await a.m. on reevaluation. NG tube has been placed patient tolerating diet through that. Will need some rehab prior to discharge when clinically improved. Creatinine remains 2.0 we will continue to monitor and trend. Nephrology input appreciated. Due to broaden antibiotics we will start on gentle hydration for renal protection purposes. Again as mentioned I updated patient's brother yesterday who will call back to let us know if the patient's longstanding girlfriend can make decisions. Assessment and Plan #NSTEMI (non-ST elevated myocardial infarction) #New Onset Atrial Fibrillation with RVR #Hypertension - Presented with AMS, found in AFib with RVR in the ED with elevated troponin - No report of previous Afib history, most likely new onset - Troponin downtrending - Per patient's brother patient sees a PCP in [place], however patient has been refusing to go to the doctor - s/p Chey gtt - Cardiology consulted, appreciate recommendations - Patient is ST with PACs on the monitor. Per cardio most likely MATs. Patient denied any chest pain, VSS - On Amiodarone gtt, plan to switch to PO today - Continue BB and therapeutic Lovenox - 2D Echo noted, EF 25-30% - Continue blood pressure monitor per protocol - Maintain SBP less than 160 #Acute kidney injury(MARIE) - Baseline renal function is unknown, most likely prerenal secondary to above - Renal function remains stable - Neprology consulted, appreciated recommendations - Strict intake and output - Avoid nephrotoxic medications; Renally dose medications - Monitor and replace electrolytes as needed #SIRS (Systemic Inflammatory Response Syndrome)/Sepsis - Presented with leukocytosis and tachycardia, but afebrile - X1 dose of Empiric IV antibiotic given in the ED - UA unremakarble, Blood cultures with NGTD - Patient remains afebrile, leukocytosis improved - Will continue to monitor for now - F/u on cultures #Acute Metabolic Encephalopathy #Vascular Dementia - Presented with increased weakness and decreased responsiveness over the past 1 week - Probably secondary to above - Mentation improved this am, still with periods of confusion - Verbal prompting, verbal redirection - Avoid benzodiazepine to reduce the possibility of delirium - Maintenance of sleep-wake cycle #Severe Arthritis #Debility - Supportive measures - PRN analgesia for pain control - PT/OT consulted #Nicotine Dependence #THC - Per patient he smoke at least a pack a day - Was initially on wellbutrin at home, but was switched to Chantix back in August - smoking cessation education provided. Patient verbalized understanding and agreed with the info provided - Nicotine qDay - Mental/Psych consulted for further eval #GI/DVT Prophylaxis - PPI- Pepcid - Lovenox SubQ - SCDs bilateral lower extremities while in bed, #Advance Care Planning - Disease education data, care plan, diagnoses, and prognosis were discussed with patient and patient's brother at the bedside. Patient is a FULL code. They acknowledged understanding and agreed with current care plan. History Interval history: Patient seen and examined at the bedside. Is awake and responds to name but not following any commands. Appears in a days Hospitalist Physical - Physical exam Narrative exam: General appearance: Present: no acute distress, well-nourished, obese, poorly responsive - EENT Eyes: Present: PERRL ENT: hearing intact - Neck Neck: Present: normal ROM - Respiratory Respiratory effort: normal Respiratory: bilateral: diminished - Cardiovascular Rhythm: regularly irregular Heart Sounds: Present: S1 & S2 - Extremities Extremities: no ischemia, pulses intact, pulses symmetrical Extremity abnormal: edema - Peripheral Assessment Generalized Edema Type: Non-pitting Edema Degree: 1+ Capillary Refill: < 3 seconds Skin Temperature: Warm Peripheral Pulses: within normal limits - Abdominal General gastrointestinal: soft, non-distended, normal bowel sounds. some te nderness rlq - Integumentary Integumentary: Present: clear, warm, dry - Psychiatric Psychiatric: cooperative, agitated, other (Awake but confused) - Neurologic Neurologic: moves all extremities, other (Awake but confused, following SOME commands) very lethargic - Allied Health Allied health notes reviewed: nursing, case management - Constitutional Vitals: Temp Pulse Resp BP Pulse Ox 98.3 F 110 H 18 155/79 97 03/14/22 07:08 03/14/22 07:20 03/14/22 07:20 03/14/22 07:08 03/14/22 07:20 General appearance: Present: no acute distress, well-nourished, obese HEART Score - HEART Score Troponin: Troponin T 0.119 ng/mL (0.00-0.029) H* D 03/09/22 02:13 Results - Labs CBC & Chem 7: 03/14/22 04:51 03/14/22 04:51 Labs: Laboratory Last Values WBC 15.4 K/mm3 (4.5-11.0) H 03/14/22 04:51 RBC 3.69 M/mm3 (3.65-5.03) 03/14/22 04:51 Hgb 9.3 gm/dl (11.8-15.2) L 03/14/22 04:51 Hct 29.8 % (35.5-45.6) L 03/14/22 04:51 MCV 81 fl (84-94) L 03/14/22 04:51 MCH 25 pg (28-32) L 03/14/22 04:51 MCHC 31 % (32-34) L 03/14/22 04:51 RDW 16.9 % (13.2-15.2) H 03/14/22 04:51 Plt Count 451 K/mm3 (140-440) H 03/14/22 04:51 Lymph % (Auto) 9.0 % (13.4-35.0) L 03/08/22 12:29 [place] % (Auto) 11.2 % (0.0-7.3) H 03/08/22 12:29 Eos % (Auto) 1.9 % (0.0-4.3) 03/08/22 12:29 Baso % (Auto) 0.9 % (0.0-1.8) 03/08/22 12:29 Lymph # (Auto) 1.1 K/mm3 (1.2-5.4) L 03/08/22 12:29 [place] # (Auto) 1.4 K/mm3 (0.0-0.8) H 03/08/22 12:29 Eos # (Auto) 0.2 K/mm3 (0.0-0.4) 03/08/22 12:29 Baso # (Auto) 0.1 K/mm3 (0.0-0.1) 03/08/22 12:29 Add Manual Diff Complete 03/09/22 02:13 Total Counted 100 03/09/22 02:13 Seg Neutrophils % 77.0 % (40.0-70.0) H 03/08/22 12:29 Seg Neuts % (Manual) 80.0 % (40.0-70.0) H 03/09/22 02:13 Band Neutrophils % 0 % 03/09/22 02:13 Lymphocytes % (Manual) 11.0 % (13.4-35.0) L 03/09/22 02:13 Reactive Lymphs % (Man) 0 % 03/09/22 02:13 Monocytes % (Manual) 8.0 % (0.0-7.3) H 03/09/22 02:13 Eosinophils % (Manual) 1.0 % (0.0-4.3) 03/09/22 02:13 Basophils % (Manual) 0 % (0.0-1.8) 03/09/22 02:13 Metamyelocytes % 0 % 03/09/22 02:13 Myelocytes % 0 % 03/09/22 02:13 Promyelocytes % 0 % 03/09/22 02:13 Blast Cells % 0 % 03/09/22 02:13 Nucleated RBC % Not Reportable 03/09/22 02:13 Seg Neutrophils # 9.8 K/mm3 (1.8-7.7) H 03/08/22 12:29 Seg Neutrophils # Man 8.5 K/mm3 (1.8-7.7) H 03/09/22 02:13 Band Neutrophils # 0.0 K/mm3 03/09/22 02:13 Lymphocytes # (Manual) 1.2 K/mm3 (1.2-5.4) 03/09/22 02:13 Abs React Lymphs (Man) 0.0 K/mm3 03/09/22 02:13 Monocytes # (Manual) 0.8 K/mm3 (0.0-0.8) 03/09/22 02:13 Eosinophils # (Manual) 0.1 K/mm3 (0.0-0.4) 03/09/22 02:13 Basophils # (Manual) 0.0 K/mm3 (0.0-0.1) 03/09/22 02:13 Metamyelocytes # 0.0 K/mm3 03/09/22 02:13 Myelocytes # 0.0 K/mm3 03/09/22 02:13 Promyelocytes # 0.0 K/mm3 03/09/22 02:13 Blast Cells # 0.0 K/mm3 03/09/22 02:13 WBC Morphology Not Reportable 03/09/22 02:13 Hypersegmented Neuts Not Reportable 03/09/22 02:13 Hyposegmented Neuts Not Reportable 03/09/22 02:13 Hypogranular Neuts Not Reportable 03/09/22 02:13 Smudge Cells Not Reportable 03/09/22 02:13 Toxic Granulation Not Reportable 03/09/22 02:13 Toxic Vacuolation Not Reportable 03/09/22 02:13 Dohle Bodies Not Reportable 03/09/22 02:13 Pelger-Huet Anomaly Not Reportable 03/09/22 02:13 Marylin Rods Not Reportable 03/09/22 02:13 Platelet Estimate Consistent w auto 03/09/22 02:13 Clumped Platelets Not Reportable 03/09/22 02:13 Plt Clumps, EDTA Not Reportable 03/09/22 02:13 Large Platelets Not Reportable 03/09/22 02:13 Giant Platelets Not Reportable 03/09/22 02:13 Platelet Satelliting Not Reportable 03/09/22 02:13 Plt Morphology Comment Not Reportable 03/09/22 02:13 RBC Morphology Normal 03/09/22 02:13 Dimorphic RBCs Not Reportable 03/09/22 02:13 Polychromasia Not Reportable 03/09/22 02:13 Hypochromasia Not Reportable 03/09/22 02:13 Poikilocytosis Not Reportable 03/09/22 02:13 Anisocytosis Not Reportable 03/09/22 02:13 Microcytosis Not Reportable 03/09/22 02:13 Macrocytosis Not Reportable 03/09/22 02:13 Spherocytes Not Reportable 03/09/22 02:13 Pappenheimer Bodies Not Reportable 03/09/22 02:13 Sickle Cells Not Reportable 03/09/22 02:13 Target Cells Not Reportable 03/09/22 02:13 Tear Drop Cells Not Reportable 03/09/22 02:13 Ovalocytes Not Reportable 03/09/22 02:13 Helmet Cells Not Reportable 03/09/22 02:13 [place] Bodies Not Reportable 03/09/22 02:13 [place] Rings Not Reportable 03/09/22 02:13 [place] Cells Not Reportable 03/09/22 02:13 Bite Cells Not Reportable 03/09/22 02:13 Crenated Cell Not Reportable 03/09/22 02:13 Elliptocytes Not Reportable 03/09/22 02:13 Acanthocytes (Spur) Not Reportable 03/09/22 02:13 Rouleaux Not Reportable 03/09/22 02:13 Hemoglobin C Crystals Not Reportable 03/09/22 02:13 Schistocytes Not Reportable 03/09/22 02:13 Malaria parasites Not Reportable 03/09/22 02:13 Cristino Bodies Not Reportable 03/09/22 02:13 Hem Pathologist Commnt No 03/09/22 02:13 PT 15.7 Sec. (12.2-14.9) H 03/08/22 12:29 INR 1.09 (0.87-1.13) 03/08/22 12:29 ABG pH 7.470 pH Units (7.350-7.450) H 03/13/22 16:05 ABG pCO2 28.0 mm Hg 03/13/22 16:05 ABG pO2 78.5 mm Hg (80.0-90.0) L 03/13/22 16:05 ABG HCO3 19.9 mmol/L (20.0-26.0) L 03/13/22 16:05 ABG O2 Saturation 96.9 % (95.0-99.0) 03/13/22 16:05 ABG O2 Content 10.9 (0.0-44) 03/13/22 16:05 ABG Base Excess -3.1 mmol/L (-2.0-3.0) L 03/13/22 16:05 ABG Hemoglobin 8.1 gm/dl (14.0-18.0) L 03/13/22 16:05 ABG Carboxyhemoglobin 1.2 % (0.0-5.0) 03/13/22 16:05 ABG Methemoglobin 0.5 % (0.0-1.5) 03/13/22 16:05 Oxyhemoglobin 95.3 % (95.0-99.0) 03/13/22 16:05 FiO2 21 % 03/13/22 16:05 Sodium 140 mmol/L (137-145) 03/14/22 04:51 Potassium 4.2 mmol/L (3.6-5.0) 03/14/22 04:51 Chloride 108.2 mmol/L (98-107) H 03/14/22 04:51 Carbon Dioxide 19 mmol/L (22-30) L 03/14/22 04:51 Anion Gap 17 mmol/L 03/14/22 04:51 BUN 30 mg/dL (9-20) H 03/14/22 04:51 Creatinine 2.0 mg/dL (0.8-1.3) H 03/14/22 04:51 Estimated GFR 41 ml/min 03/14/22 04:51 BUN/Creatinine Ratio 15 % 03/14/22 04:51 Glucose 125 mg/dL (75-100) H 03/14/22 04:51 POC Glucose 106 mg/dL (70-105) H 03/14/22 07:33 Lactic Acid 1.40 mmol/L (0.7-2.0) 03/08/22 12:29 Calcium 9.4 mg/dL (8.4-10.2) 03/14/22 04:51 Phosphorus 2.60 mg/dL (2.5-4.5) 03/11/22 03:52 Magnesium 2.10 mg/dL (1.7-2.3) 03/11/22 03:52 Total Bilirubin 0.70 mg/dL (0.1-1.2) 03/13/22 04:36 AST 16 units/L (5-40) 03/13/22 04:36 ALT 11 units/L (7-56) 03/13/22 04:36 Alkaline Phosphatase 105 units/L (35-129) 03/13/22 04:36 Ammonia 10.0 umol/L (25-60) L 03/13/22 19:38 Total Creatine Kinase 53 units/L (55-170) L 03/08/22 12:29 Troponin T 0.119 ng/mL (0.00-0.029) H* D 03/09/22 02:13 C-Reactive Protein 16.20 mg/dL (0.00-1.30) H 03/08/22 12:29 Total Protein 7.0 g/dL (6.3-8.2) 03/13/22 04:36 Albumin 2.5 g/dL (3.9-5) L 03/13/22 04:36 Albumin/Globulin Ratio 0.6 % 03/13/22 04:36 Triglycerides 105 mg/dL (2-149) 03/08/22 12:29 Cholesterol 136 mg/dL (50-199) 03/08/22 12:29 LDL Cholesterol Direct 76 mg/dL (50-130) 03/08/22 12:29 HDL Cholesterol 35 mg/dL (40-59) L 03/08/22 12:29 Cholesterol/HDL Ratio 3.88 % 03/08/22 12:29 PTH Intact 45.32 pg/mL (15-65) 03/11/22 03:52 Urine Color Yellow (Yellow) 03/08/22 14:38 Urine Turbidity Clear (Clear) 03/08/22 14:38 Urine pH 6.0 (5.0-7.0) 03/08/22 14:38 Ur Specific [place] 1.015 (1.003-1.030) 03/08/22 14:38 Urine Protein 30 mg/dl mg/dL (Negative) 03/08/22 14:38 Urine Glucose (UA) Negative mg/dL (Negative) 03/08/22 14:38 Urine Ketones Negative mg/dL (Negative) 03/08/22 14:38 Urine Blood 1+ (Negative) 03/08/22 14:38 Urine Nitrite Negative (Negative) 03/08/22 14:38 Ur Reducing Substances Negative (Negative) 03/08/22 14:38 Urine Bilirubin Negative (Negative) 03/08/22 14:38 Urine Urobilinogen 0.0 mg/dL (<2.0) 03/08/22 14:38 Ur Leukocyte Esterase Negative (Negative) 03/08/22 14:38 Urine WBC (Auto) 3.0 /HPF (0.0-6.0) 03/08/22 14:38 Urine RBC (Auto) 5.0 /HPF (0.0-6.0) 03/08/22 14:38 U Epithel Cells (Auto) 3.0 /HPF (0-13.0) 03/08/22 14:38 Urine Bacteria (Auto) 1+ /HPF (Negative) 03/08/22 14:38 Hyaline Casts 2 /LPF 03/08/22 14:38 Urine Mucus 1+ /HPF 03/08/22 14:38 Urine Creatinine 167.4 mg/dL (0.1-20.0) H 03/09/22 15:25 Urine Sodium 49 mmol/L 03/09/22 15:25 Salicylates < 0.3 mg/dL (2.8-20.0) L 03/08/22 12:29 Urine Opiates Screen Negative 03/08/22 14:38 Urine Methadone Screen Negative 03/08/22 14:38 Acetaminophen 5.0 ug/mL (10.0-30.0) L 03/08/22 12:29 Ur Barbiturates Screen Negative 03/08/22 14:38 Ur Phencyclidine Scrn Negative 03/08/22 14:38 Ur Amphetamines Screen Negative 03/08/22 14:38 U Benzodiazepines Scrn Negative 03/08/22 14:38 Urine Cocaine Screen Negative 03/08/22 14:38 U Marijuana (THC) Screen Positive 03/08/22 14:38 Drugs of Abuse Note Disclamer 03/08/22 14:38 Plasma/Serum Alcohol < 0.01 % (0-0.07) 03/08/22 12:29 Microbiology: Microbiology 03/08/22 12:29 Peripheral/Venous Blood Culture - Final NO GROWTH AFTER 5 DAYS 03/08/22 12:29 Peripheral/Venous Blood Culture - Final NO GROWTH AFTER 5 DAYS Arteaga/IV: Voiding Method Indwelling Catheter Active Medications - Current Medications Current Medications: Generic Name Dose Route Start Last Admin Trade Name Freq PRN Reason Stop Dose Admin Acetaminophen 650 mg 03/08/22 20:07 03/11/22 21:37 Acetaminophen 325 Mg Tab PO 650 mg Q6H PRN Administration Pain MILD(1-3)/Fever >100.5/[place] Albuterol 2.5 mg 03/08/22 20:07 Albuterol 2.5 Mg/3 Ml Nebu IH Q3HRT PRN Shortness Of Breath Aspirin 81 mg 03/11/22 10:00 03/13/22 15:20 Aspirin 81 Mg Tab Chew PO Not Given QDAY FRANCESCA Atorvastatin Calcium 40 mg 03/11/22 22:00 03/13/22 22:10 Atorvastatin 40 Mg Tab PO 40 mg QHS FRANCESCA Administration Enoxaparin Sodium 80 mg 03/14/22 10:00 Enoxaparin 80 Mg/0.8 Ml Inj SUB-Q Q12HR FRANCESCA Famotidine 20 mg 03/14/22 10:00 Famotidine 20 Mg Tab PO DAILY [facility] Haloperidol Lactate 5 mg 03/10/22 18:12 03/12/22 02:36 Haloperidol Lactate 5 Mg/1 Ml Inj IV 5 mg Q6H PRN Administration Agitation Cefepime HCl 1 gm in 100 mls @ 200 mls/hr 03/12/22 11:00 03/13/22 23:45 Cefepime/Ns 1 Gm/100 Ml IV 200 mls/hr Q12H FRANCESCA Administration Protocol Amiodarone HCl 900 mg/ 500 mls @ 33.333 mls/hr 03/13/22 17:00 03/13/22 22:30 Dextrose IV 0.5 mg/min DIRECT FRANCESCA 16.667 mls/hr Titration Protocol 1 MG/MIN Methotrexate 2.5 mg 03/11/22 16:00 03/11/22 17:00 Methotrexate 2.5 Mg Tab (Dose Weekly Only) PO 2.5 mg Fr FRANCESCA Administration Metoprolol Tartrate 50 mg 03/10/22 17:49 03/13/22 22:09 Metoprolol Tartrate 25 Mg Tab PO 50 mg BID FRANCESCA Administration Morphine Sulfate 2 mg 03/08/22 20:07 Morphine 4 Mg/1 Ml Inj IV Q8H PRN Pain , Severe (7-10) Naloxone HCl 0.4 mg 03/13/22 13:51 03/13/22 14:03 Naloxone 0.4 Mg/1 Ml Inj IV 0.4 mg ONCE FRANCESCA Administration Nicotine 21 mg 03/10/22 10:00 03/13/22 09:35 Nicotine 21 Mg/24 Hr Patch TD 21 mg QDAY FRANCESCA Administration Oxycodone/Acetaminophen 1 tab 03/08/22 20:07 03/11/22 21:37 Oxycodone /Acetaminophen 5-325mg Tab PO 1 tab Q6H PRN Administration Pain, Moderate (4-6) Sodium Chloride 10 ml 03/08/22 22:00 03/13/22 22:10 Sodium Chloride 0.9% 10 Ml Flush Syringe IV 10 ml BID FRANCESCA Administration Sodium Chloride 10 ml 03/08/22 20:07 Sodium Chloride 0.9% 10 Ml Flush Syringe IV PRN PRN LINE FLUSH Tramadol HCl 50 mg 03/08/22 20:11 03/12/22 01:02 Tramadol 50 Mg Tab PO 50 mg Q6H PRN Administration Pain, Moderate (4-6)
[2022-03-14] MEDS: ENOXAPARIN 80 MG/0.8 ML INJ SUB-Q SCH ×2 (09:32→21:46)
[2022-03-14] MEDS: AMIODARONE 200 MG TAB PO SCH ×2 (09:32→21:46)
[2022-03-14] MEDS: FAMOTIDINE 20 MG TAB PO SCH (09:32)
[2022-03-14] MEDS: METOPROLOL TARTRATE 25 MG TAB PO SCH ×2 (09:32→21:45)
[2022-03-14] MEDS: NICOTINE 21 MG/24 HR PATCH TD SCH (09:32)
[2022-03-14] MEDS: ASPIRIN 81 MG TAB CHEW PO SCH (09:32)
--- NOTE | 2022-03-14 10:12 | Cat Scan Report ---
CT HEAD WITHOUT CONTRAST INDICATION / CLINICAL INFORMATION: ams. TECHNIQUE: Axial imaging performed from the skull apex through the skull base without the use of cont rast. Sagittal and coronal reformatted images. All CT scans at this location are performed using CT dose reduction for ALARA by means of automated exposure control. COMPARISON: 03/08/2022 FINDINGS: CEREBRAL PARENCHYMA: No acute parenchymal abnormality is detected. Mild diffuse cortical volume loss and moderate chronic microvascular ischemic changes in the white matter are noted and appear stable. No large chronic infarct. HEMORRHAGE: None. EXTRA-AXIAL SPACES: Normal in size and morphology for the patient's age. VENTRICULAR SYSTEM: Normal in size and morphology for the patient's age. MIDLINE SHIFT OR HERNIATION: None. CEREBELLUM / BRAINSTEM: No significant abnormality. CALVARIUM: No significant abnormality. ORBITS: Normal as visualized. 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 SOFT TISSUES of HEAD: No significant abnormality. ADDITIONAL FINDINGS: None. IMPRESSION: No acute intracranial abnormality. Volume loss and chronic white matter changes which appear stable s clay 03/08/2022. Signer Name: Sixto Reveles Jr, MD Signed: 03/14/2022 10:08 AM Workstation Name: [id number]
[2022-03-14] MEDS ORDERED: VANCOMYCIN 1,000 MG in SODIUM CHLORIDE 0.9% 500 ML 500 ML IV ONE (10:29)
--- NOTE | 2022-03-14 10:29 | Progress Note ---
Assessment and Plan Cultures: 03/08/2022 blood culture: No growth A/P: 67-year-old male with vascular dementia, prior CVA, BPH, hypertension, smoking history was admitted with confusion, altered mental status: #SIRS/sepsis: Has leukocytosis, thrombocytosis, low grade fever. Chest x-ray without any pneumonia, UA without any concerns for UTI. Does have an indwelling Arteaga, some abdominal guarding. Poor historian. No concerning skin wounds. CT abdomen and pelvis without contrast did not reveal any acute abnormality. #MARIE: Renally adjust antibiotics. #Elevated troponin: Seen by cardiology, suspected type II NSTEMI. TTE shows EF of 25 to 30%. #Acute encephalopathy: CT head without acute abnormality. Also urinary tox screen positive for THC. #Tobacco abuse Recs: -No clear source of infection identified. Remains confused, intermittent low- grade fevers and leukocytosis continue. We will expand antimicrobial coverage to include ampicillin, vancomycin and acyclovir. Continue cefepime renally adjusted. -Recommend LP, please send cell count with differential, protein, glucose, culture, viral PCR panel (includes HSV, VZV and enterovirus) D/W Dr. Conway. Juanis Greco MD, FACP, [facility] ([facility]) O: [phone] F: [phone] C: [phone] Subjective Date of service: 03/14/22 Principal diagnosis: NSTEMI ?Type 2 NC Interval history: T-max of 100.9 F yesterday. No fever today. Remains on room air. Confused, drowsy. Objective - Exam Narrative Exam: Physical Exam: Constitutional: drowsy, confused Head, Ears, Nose: Normocephalic, atraumatic. External ears, nose normal Eyes: Conjunctivae/corneas clear. No icterus. No ptosis. Neck: Supple, no meningeal signs Cardiovascular: S1, S2 + Respiratory: Good air entry, clear to auscultation bilaterally GI: Seems to have some abdominal guarding, Arteaga present, bowel sounds + Musculoskeletal: No pedal edema, no cyanosis. Skin: No rash or abscess Hem/Lymphatic: No palpable cervical or supraclavicular nodes. No lymphangitis Psych: drowsy Neurological: drowsy - Constitutional Vitals: Vital Signs Temp Pulse Resp BP Pulse Ox 98.3 F 110 H 18 155/79 97 03/14/22 07:08 03/14/22 07:20 03/14/22 07:20 03/14/22 07:08 03/14/22 07:20 Temperature -Last 24 Hours Temperature 98.3 F Temperature 98.5 F Temperature 98.5 F Temperature 99.4 F Temperature 100.4 F Temperature 100.9 F Temperature 99.5 F - Labs CBC & Chem 7: 03/14/22 04:51 03/14/22 04:51 Labs: Abnormal lab results 03/13/22 03/13/22 03/14/22 Range/Units 16:05 19:38 04:51 WBC 15.4 H (4.5-11.0) K/mm3 Hgb 9.3 L (11.8-15.2) gm/dl Hct 29.8 L (35.5-45.6) % MCV 81 L (84-94) fl MCH 25 L (28-32) pg MCHC 31 L (32-34) % RDW 16.9 H (13.2-15.2) % Plt Count 451 H (140-440) K/mm3 ABG pH 7.470 H (7.350-7.450) pH Units ABG pO2 78.5 L (80.0-90.0) mm Hg ABG HCO3 19.9 L (20.0-26.0) mmol/L ABG Base Excess -3.1 L (-2.0-3.0) mmol/L ABG Hemoglobin 8.1 L (14.0-18.0) gm/dl Chloride (98-107) mmol/L Carbon Dioxide (22-30) mmol/L BUN (9-20) mg/dL Creatinine (0.8-1.3) mg/dL Glucose (75-100) mg/dL POC Glucose (70-105) mg/dL Ammonia 10.0 L (25-60) umol/L 03/14/22 03/14/22 Range/Units 04:51 07:33 WBC (4.5-11.0) K/mm3 Hgb (11.8-15.2) gm/dl Hct (35.5-45.6) % MCV (84-94) fl MCH (28-32) pg MCHC (32-34) % RDW (13.2-15.2) % Plt Count (140-440) K/mm3 ABG pH (7.350-7.450) pH Units ABG pO2 (80.0-90.0) mm Hg ABG HCO3 (20.0-26.0) mmol/L ABG Base Excess (-2.0-3.0) mmol/L ABG Hemoglobin (14.0-18.0) gm/dl Chloride 108.2 H (98-107) mmol/L Carbon Dioxide 19 L (22-30) mmol/L BUN 30 H (9-20) mg/dL Creatinine 2.0 H (0.8-1.3) mg/dL Glucose 125 H (75-100) mg/dL POC Glucose 106 H (70-105) mg/dL Ammonia (25-60) umol/L
[2022-03-14] MEDS ORDERED: VANCOMYCIN PHARMACY TO DOSE IV SCH (11:00)
[2022-03-14] MEDS: CEFEPIME/NS 1 GM/100 ML 1 GM/100 ML BAG IV SCH ×2 (11:34→23:50)
--- NOTE | 2022-03-14 13:28 | Progress Note ---
Assessment and Plan Patient is a 67-year-old male with a reported past medical history of vascular dementia, cerebral atherosclerosis, BPH, hypertension, nicotine dependence who presented to the ED yesterday for complaint of AMS x2. Altered mental status NSTEMI suspect type II MARIE Leukocytosis A. fib?/MAT Hypertension Vascular dementia Echo 03/09/2022-EF 25 to 30%. Severe global hypokinesis of left ventricle. Moderate concentric LVH. Mild diastolic dysfunction is present impaired relaxation pattern. Moderate aortic regurgitation. No pericardial effusion Plan: Conservative cardiac mgmt recommended in light of mental status. Continue to Amio 200mg PO BID If no route for PO meds and any recurrent tachyarrhythmias, can restart IV Amiodarone gtt Continue anticoagulation with Lovenox Continue metoprolol 50mg PO BID for rate control Will hold NATALYA and ARB due to elevated creatinine Pt seen in conjunction with Dr. Nuñez, who agrees with the assessment and plan of care - Patient Problems (1) Multifocal atrial tachycardia Current Visit: Yes Status: Acute (2) Acute kidney injury (MARIE) with acute tubular necrosis (ATN) Current Visit: Yes Status: Acute (3) Altered mental status Current Visit: Yes Status: Acute (4) Atrial fibrillation with RVR Current Visit: Yes Status: Acute (5) CKD (chronic kidney disease) Current Visit: Yes Status: Acute (6) Cerebral atherosclerosis Current Visit: Yes Status: Chronic (7) Elevated troponin Current Visit: Yes Status: Acute (8) NSTEMI (non-ST elevated myocardial infarction) Current Visit: Yes Status: Acute (9) SIRS (systemic inflammatory response syndrome) Current Visit: Yes Status: Acute (10) Vascular dementia Current Visit: Yes Status: Chronic Qualifiers: Dementia behavioral disturbance: with behavioral disturbance Qualified Code(s): F01.51 - Vascular dementia with behavioral disturbance (11) Weakness Current Visit: Yes Status: Acute Subjective Date of service: 03/14/22 Principal diagnosis: NSTEMI ?Type 2 [place] Interval history: Patient resting in bed in no acute distress. Patient is remains with AMS Patient appears to be in MAT 90s-low 100s Objective Vital Signs Temp Pulse Pulse Resp BP Pulse Ox 03/14/22 11:10 95.3 F L 101 H 18 147/91 98 03/14/22 07:20 110 H 18 97 03/14/22 07:08 98.3 F 105 H 17 155/79 99 03/14/22 03:33 98.5 F 96 H 20 158/86 100 03/13/22 23:16 98.5 F 90 20 149/93 100 03/13/22 22:09 108 H 164/96 03/13/22 22:00 110 H 110 H 18 97 03/13/22 19:10 99.4 F 108 H 20 164/96 99 03/13/22 18:10 100.4 F H 117 H 18 166/97 100 03/13/22 15:00 100.9 F H - Physical Examination General: No Apparent Distress HEENT: Positive: Normocephaly, Mucus Membranes Dry Neck: Positive: trachea midline. Negative: JVD/HJR Cardiac: Positive: Reg Rate and Rhythm Lungs: Positive: Normal Breath Sounds Neuro: Positive: Other (somnolent) Abdomen: Positive: Soft Skin: Negative: Rash Extremities: Present: upper extr. pulses, warm. Absent: edema - Labs and Meds CBC 03/14/22 Range/Units 04:51 WBC 15.4 H (4.5-11.0) K/mm3 RBC 3.69 (3.65-5.03) M/mm3 Hgb 9.3 L (11.8-15.2) gm/dl Hct 29.8 L (35.5-45.6) % Plt Count 451 H (140-440) K/mm3 Comprehensive Metabolic Panel 03/14/22 Range/Units 04:51 Sodium 140 (137-145) mmol/L Potassium 4.2 (3.6-5.0) mmol/L Chloride 108.2 H (98-107) mmol/L Carbon Dioxide 19 L (22-30) mmol/L BUN 30 H (9-20) mg/dL Creatinine 2.0 H (0.8-1.3) mg/dL Glucose 125 H (75-100) mg/dL Calcium 9.4 (8.4-10.2) mg/dL - Imaging and Cardiology EKG: report reviewed, image reviewed Echo: report reviewed - EKG Supraventricular dysrhythmia: multifocal atrial tachyca Ventricular dysrhythmias: ventricular premature com Myocardial infarction: septal MO (old age or ind, anterior MO (old age or i - Allied health notes Allied health notes reviewed: nursing
[2022-03-14] MEDS: VANCOMYCIN/NS 1 GM/250 ML 1 GM/250 ML BAG IV SCH (13:38)
[2022-03-14] MEDS ORDERED: AMPICILLIN 2 GM in SODIUM CHLORIDE 0.9% 100 ML IV SCH (14:00)
--- NOTE | 2022-03-14 14:32 | Progress Note ---
Assessment and Plan MARIE - F/u BUN/Cr on IVF HTN - F/u on meds A Fib - F/u per Cardiology AMS - Suggest to decrease sedatives for better eval Subjective Date of service: 03/14/22 Principal diagnosis: NSTEMI ?Type 2 [place] Objective - Vital Signs Vital signs: Vital Signs - 12hr 03/14/22 03/14/22 03/14/22 03:33 07:08 07:20 Temperature 98.5 F 98.3 F Pulse Rate 96 H 105 H Pulse Rate [ 110 H From Monitor] Respiratory 20 17 18 Rate Blood Pressure 158/86 155/79 O2 Sat by Pulse 100 99 97 Oximetry 03/14/22 11:10 Temperature 95.3 F L Pulse Rate 101 H Pulse Rate [ From Monitor] Respiratory 18 Rate Blood Pressure 147/91 O2 Sat by Pulse 98 Oximetry - General Appearance General appearance: other (+Arousal but poorly responsive) EENT: PERRL Neck: no JVD Respiratory: Present: Other (Good air entry) Cardiology: regular, S1S2 Gastrointestinal: other (Soft) Neurologic: other (Poorly responsive) - Lab 03/14/22 04:51 03/14/22 04:51 Most recent lab results ABG pH 7.470 pH Units (7.350-7.450) H 03/13/22 16:05 ABG pCO2 28.0 mm Hg 03/13/22 16:05 ABG pO2 78.5 mm Hg (80.0-90.0) L 03/13/22 16:05 ABG HCO3 19.9 mmol/L (20.0-26.0) L 03/13/22 16:05 ABG O2 Saturation 96.9 % (95.0-99.0) 03/13/22 16:05 Calcium 9.4 mg/dL (8.4-10.2) 03/14/22 04:51 Phosphorus 2.60 mg/dL (2.5-4.5) 03/11/22 03:52 Magnesium 2.10 mg/dL (1.7-2.3) 03/11/22 03:52 Urine Creatinine 167.4 mg/dL (0.1-20.0) H 03/09/22 15:25 Urine Sodium 49 mmol/L 03/09/22 15:25 Medications & Allergies - Medications Allergies/Adverse Reactions: Allergies lisinopril Allergy (Verified 03/11/22 15:41) Hives Home Medications: Home Medications Medication Instructions Recorded Confirmed Last Taken Type Ibuprofen [Motrin] 400 mg PO Q8H PRN #30 tablet 08/28/15 Unknown Rx Oxycodone HCl/Acetaminophen 1 each PO Q6HR PRN #20 tablet 08/28/15 Unknown Rx [Percocet 10/325 mg] Promethazine [Phenergan TAB] 25 mg PO Q6HR PRN #20 tab 08/28/15 Unknown Rx Tamsulosin [Flomax] 0.4 mg PO QDAY #7 cap 08/28/15 Unknown Rx amLODIPine [Norvasc] 10 mg PO DAILY #30 tab 08/28/15 Unknown Rx AtorvaSTATin [Lipitor] 40 mg PO QHS 03/11/22 03/11/22 Unknown History Metoprolol Succinate [Toprol Xl] 50 mg PO DAILY 03/11/22 03/11/22 Unknown History Varenicline Tartrate [Chantix] 1 mg PO BID 03/11/22 03/11/22 Unknown History hydroCHLOROthiazide 12.5 mg PO DAILY 03/11/22 03/11/22 Unknown History [Hydrochlorothiazide] metHOTREXate sodium [Methotrexate] 2.5 mg PO 1XW 03/11/22 03/11/22 Unknown History Active Medications: Generic Name Dose Route Start Last Admin Trade Name Freq PRN Reason Stop Dose Admin Acetaminophen 650 mg 03/08/22 20:07 03/11/22 21:37 Acetaminophen 325 Mg Tab PO 650 mg Q6H PRN Administration Pain MILD(1-3)/Fever >100.5/HILTON Albuterol 2.5 mg 03/08/22 20:07 Albuterol 2.5 Mg/3 Ml Nebu IH Q3HRT PRN Shortness Of Breath Amiodarone HCl 200 mg 03/14/22 10:00 03/14/22 09:32 Amiodarone 200 Mg Tab PO 200 mg BID FRANCESCA Administration Aspirin 81 mg 03/11/22 10:00 03/14/22 09:32 Aspirin 81 Mg Tab Chew PO 81 mg QDAY FRANCESCA Administration Atorvastatin Calcium 40 mg 03/11/22 22:00 03/13/22 22:10 Atorvastatin 40 Mg Tab PO 40 mg QHS FRANCESCA Administration Enoxaparin Sodium 80 mg 03/14/22 10:00 03/14/22 09:32 Enoxaparin 80 Mg/0.8 Ml Inj SUB-Q 80 mg Q12HR FRANCESCA Administration Famotidine 20 mg 03/14/22 10:00 03/14/22 09:32 Famotidine 20 Mg Tab PO 20 mg DAILY FRANCESCA Administration Haloperidol Lactate 5 mg 03/10/22 18:12 03/12/22 02:36 Haloperidol Lactate 5 Mg/1 Ml Inj IV 5 mg Q6H PRN Administration Agitation Cefepime HCl 1 gm in 100 mls @ 200 mls/hr 03/12/22 11:00 03/14/22 11:34 Cefepime/Ns 1 Gm/100 Ml IV 200 mls/hr Q12H FRANCESCA Administration Protocol Acyclovir 400 mg/ Sodium 108 mls @ 100 mls/hr 03/14/22 14:00 Chloride IV Q12H FRANCESCA Protocol Ampicillin Sodium 2 gm/ Sodium 100 mls @ 200 mls/hr 03/14/22 14:00 Chloride IV Q12H FRANCESCA Protocol Vancomycin HCl 1 gm in 250 mls @ 125 mls/hr 03/14/22 13:00 03/14/22 13:38 Vancomycin/Ns 1 Gm/250 Ml IV 125 mls/hr Q24H FRANCESCA Administration Protocol Sodium Chloride 1,000 mls @ 42 mls/hr 03/14/22 13:45 Nacl 0.9% 1000 Ml IV DIRECT FRANCESCA Methotrexate 2.5 mg 03/11/22 16:00 03/11/22 17:00 Methotrexate 2.5 Mg Tab (Dose Weekly Only) PO 2.5 mg Fr FRANCESCA Administration Metoprolol Tartrate 50 mg 03/10/22 17:49 03/14/22 09:32 Metoprolol Tartrate 25 Mg Tab PO 50 mg BID FRANCESCA Administration Morphine Sulfate 2 mg 03/08/22 20:07 Morphine 4 Mg/1 Ml Inj IV Q8H PRN Pain , Severe (7-10) Naloxone HCl 0.4 mg 03/13/22 13:51 03/13/22 14:03 Naloxone 0.4 Mg/1 Ml Inj IV 0.4 mg ONCE FRANCESCA Administration Nicotine 21 mg 03/10/22 10:00 03/14/22 09:32 Nicotine 21 Mg/24 Hr Patch TD 21 mg QDAY FRANCESCA Administration Oxycodone/Acetaminophen 1 tab 03/08/22 20:07 03/11/22 21:37 Oxycodone /Acetaminophen 5-325mg Tab PO 1 tab Q6H PRN Administration Pain, Moderate (4-6) Sodium Chloride 10 ml 03/08/22 22:00 03/14/22 09:33 Sodium Chloride 0.9% 10 Ml Flush Syringe IV 10 ml BID FRANCESCA Administration Sodium Chloride 10 ml 03/08/22 20:07 Sodium Chloride 0.9% 10 Ml Flush Syringe IV PRN PRN LINE FLUSH Tramadol HCl 50 mg 03/08/22 20:11 03/12/22 01:02 Tramadol 50 Mg Tab PO 50 mg Q6H PRN Administration Pain, Moderate (4-6)
[2022-03-14] MEDS: ACYCLOVIR 400 MG in SODIUM CHLORIDE 0.9% 100 ML IV SCH (15:29)
[2022-03-14] MEDS: traMADol 50 MG TAB PO PRN (15:35)
[2022-03-14] MEDS: SODIUM CHLORIDE 0.9% 1000 ML 1,000 ML IV SCH (18:10)
[2022-03-15] MEDS: ACYCLOVIR 400 MG in SODIUM CHLORIDE 0.9% 100 ML IV SCH ×2 (02:45→17:46)
[2022-03-15] MEDS: AMPICILLIN/NS 2 GM/100 ML 2 GM/100 ML BAG IV SCH ×2 (05:00→16:22)
[2022-03-15 05:55] LABS: Basophils # (Auto) 0.1 K/mm3 (0.0-0.1); Basophils % (Auto) 0.5 % (0.0-1.8); Eosinophils # (Auto) 0.4 K/mm3 (0.0-0.4); Eosinophils % (Auto) 2.6 % (0.0-4.3); Hematocrit 27.3 % (35.5-45.6); Hemoglobin 8.6 gm/dl (11.8-15.2); Lymphocytes # (Auto) 1.1 K/mm3 (1.2-5.4); Lymphocytes % (Auto) 7.9 % (13.4-35.0); Mean Corpuscular HGB Conc 32 % (32-34); Mean Corpuscular Volume 80 fl (84-94); Monocytes # (Auto) 0.9 K/mm3 (0.0-0.8); Monocytes % (Auto) 6.8 % (0.0-7.3); Platelet Count 410 K/mm3 (140-440); Red Blood Count 3.42 M/mm3 (3.65-5.03); Red Cell Distribution Width 16.8 % (13.2-15.2)
[2022-03-15 06:00] LABS: Albumin 2.2 g/dL (3.9-5); Calcium 9.5 mg/dL (8.4-10.2)
[2022-03-15] MEDS: ACETAMINOPHEN 325 MG TAB PO PRN (07:13)
[2022-03-15] MEDS: HALOPERIDOL LACTATE 5 MG/1 ML INJ IV PRN (08:45)
[2022-03-15] MEDS: METOPROLOL TARTRATE 25 MG TAB PO SCH ×2 (09:01→22:14)
[2022-03-15] MEDS: AMIODARONE 200 MG TAB PO SCH ×2 (09:01→22:14)
[2022-03-15] MEDS: ASPIRIN 81 MG TAB CHEW PO SCH (09:02)
[2022-03-15] MEDS: NICOTINE 21 MG/24 HR PATCH TD SCH (09:02)
[2022-03-15] MEDS: FAMOTIDINE 20 MG TAB PO SCH (09:03)
[2022-03-15] MEDS: ENOXAPARIN 80 MG/0.8 ML INJ SUB-Q SCH ×2 (09:04→22:14)
--- NOTE | 2022-03-15 09:18 | Progress Note ---
Assessment and Plan Cultures: 03/08/2022 blood culture: No growth A/P: 67-year-old male with vascular dementia, prior CVA, BPH, hypertension, smoking history was admitted with confusion, altered mental status: #SIRS/sepsis: Has leukocytosis, thrombocytosis, low grade fever. Chest x-ray without any pneumonia, UA without any concerns for UTI. Does have an indwelling Arte[place], some abdominal guarding. Poor historian. No concerning skin wounds. CT abdomen and pelvis without contrast did not reveal any acute abnormality. #MARIE: Renally adjust antibiotics. #Elevated troponin: Seen by cardiology, suspected type II NSTEMI. TTE shows EF of 25 to 30%. #Acute encephalopathy: CT head without acute abnormality. Also urinary tox screen positive for THC. #Tobacco abuse Recs: -continue IV ampicillin, vancomycin and acyclovir. Continue cefepime renally adjusted. -F/U LP, please send cell count with differential, protein, glucose, culture, viral PCR panel (includes HSV, VZV and enterovirus) Juanis Greco MD, FACP, [facility] ([facility]) O: [phone] F: [phone] C: [phone] Subjective Date of service: 03/15/22 Principal diagnosis: NSTEMI ?Type 2 [place] Interval history: Low-grade fevers present, drowsy. Discussed with RN, he just got Haldol in preparation for lumbar puncture. Objective - Exam Narrative Exam: Physical Exam: Constitutional: drowsy Head, Ears, Nose: Normocephalic, atraumatic. External ears, nose normal Eyes: Conjunctivae/corneas clear. No icterus. No ptosis. Neck: Supple, no meningeal signs Cardiovascular: S1, S2 + Respiratory: Good air entry, clear to auscultation bilaterally GI: Seems to have some abdominal guarding, Arte[place] present, bowel sounds + Musculoskeletal: No pedal edema, no cyanosis. Skin: No rash or abscess Hem/Lymphatic: No palpable cervical or supraclavicular nodes. No lymphangitis Psych: drowsy Neurological: drowsy - Constitutional Vitals: Vital Signs Temp Pulse Resp BP Pulse Ox 98.3 F 103 H 18 153/78 90 03/15/22 07:53 03/15/22 07:53 03/15/22 07:53 03/15/22 07:53 03/15/22 07:53 Temperature -Last 24 Hours Temperature 98.3 F Temperature 100.7 F Temperature 98.7 F Temperature 99.3 F Temperature 97.8 F Temperature 95.3 F - Labs CBC & Chem 7: 03/15/22 05:19 03/15/22 05:19 Labs: Abnormal lab results 03/14/22 03/14/22 03/15/22 Range/Units 14:03 23:12 05:01 WBC (4.5-11.0) K/mm3 RBC (3.65-5.03) M/mm3 Hgb (11.8-15.2) gm/dl Hct (35.5-45.6) % MCV (84-94) fl MCH (28-32) pg RDW (13.2-15.2) % Lymph % (Auto) (13.4-35.0) % Lymph # (Auto) (1.2-5.4) K/mm3 [place] # (Auto) (0.0-0.8) K/mm3 Seg Neutrophils % (40.0-70.0) % Seg Neutrophils # (1.8-7.7) K/mm3 Chloride (98-107) mmol/L Carbon Dioxide (22-30) mmol/L BUN (9-20) mg/dL Creatinine (0.8-1.3) mg/dL Glucose (75-100) mg/dL POC Glucose 129 H 113 H 107 H (70-105) mg/dL Phosphorus (2.5-4.5) mg/dL AST (5-40) units/L Alkaline Phosphatase (35-129) units/L Albumin (3.9-5) g/dL 03/15/22 03/15/22 Range/Units 05:19 05:19 WBC 13.9 H (4.5-11.0) K/mm3 RBC 3.42 L (3.65-5.03) M/mm3 Hgb 8.6 L (11.8-15.2) gm/dl Hct 27.3 L (35.5-45.6) % MCV 80 L (84-94) fl MCH 25 L (28-32) pg RDW 16.8 H (13.2-15.2) % Lymph % (Auto) 7.9 L (13.4-35.0) % Lymph # (Auto) 1.1 L (1.2-5.4) K/mm3 [place] # (Auto) 0.9 H (0.0-0.8) K/mm3 Seg Neutrophils % 82.2 H (40.0-70.0) % Seg Neutrophils # 11.4 H (1.8-7.7) K/mm3 Chloride 110.6 H (98-107) mmol/L Carbon Dioxide 20 L (22-30) mmol/L BUN 28 H (9-20) mg/dL Creatinine 1.8 H (0.8-1.3) mg/dL Glucose 114 H (75-100) mg/dL POC Glucose (70-105) mg/dL Phosphorus 2.20 L (2.5-4.5) mg/dL AST 51 H (5-40) units/L Alkaline Phosphatase 177 H (35-129) units/L Albumin 2.2 L (3.9-5) g/dL
[2022-03-15] MEDS: CEFEPIME/NS 1 GM/100 ML 1 GM/100 ML BAG IV SCH ×2 (12:46→23:45)
[2022-03-15] MEDS: MORPHINE 4 MG/1 ML INJ IV PRN (12:51)
--- NOTE | 2022-03-15 13:33 | Progress Note ---
Assessment and Plan MARIE - F/u improving BUN/Cr on IVF HTN - F/u on meds A Fib - F/u per Cardiology AMS - Awake & improving response. Continue f/u Subjective Date of service: 03/15/22 Principal diagnosis: NSTEMI ?Type 2 [place] Interval history: Doing much better Objective - Vital Signs Vital signs: Vital Signs - 12hr 03/15/22 03/15/22 03/15/22 03:54 07:53 11:39 Temperature 100.7 F H 98.3 F 97.7 F Pulse Rate 98 H 103 H 57 L Respiratory 18 18 22 Rate Blood Pressure 154/87 153/78 118/78 O2 Sat by Pulse 92 90 96 Oximetry - General Appearance General appearance: other (Awake & verbally responsive) EENT: PERRL, hearing intact Neck: no JVD Respiratory: Present: Other (Good air entry) Cardiology: regular, S1S2 Gastrointestinal: normal Neurologic: other (Awake & responsive) - Lab 03/15/22 05:19 03/15/22 05:19 Most recent lab results ABG pH 7.470 pH Units (7.350-7.450) H 03/13/22 16:05 ABG pCO2 28.0 mm Hg 03/13/22 16:05 ABG pO2 78.5 mm Hg (80.0-90.0) L 03/13/22 16:05 ABG HCO3 19.9 mmol/L (20.0-26.0) L 03/13/22 16:05 ABG O2 Saturation 96.9 % (95.0-99.0) 03/13/22 16:05 Calcium 9.5 mg/dL (8.4-10.2) 03/15/22 05:19 Phosphorus 2.20 mg/dL (2.5-4.5) L 03/15/22 05:19 Magnesium 2.20 mg/dL (1.7-2.3) 03/15/22 05:19 Urine Creatinine 167.4 mg/dL (0.1-20.0) H 03/09/22 15:25 Urine Sodium 49 mmol/L 03/09/22 15:25 Medications & Allergies - Medications Allergies/Adverse Reactions: Allergies lisinopril Allergy (Verified 03/11/22 15:41) Hives Home Medications: Home Medications Medication Instructions Recorded Confirmed Last Taken Type Ibuprofen [Motrin] 400 mg PO Q8H PRN #30 tablet 08/28/15 Unknown Rx Oxycodone HCl/Acetaminophen 1 each PO Q6HR PRN #20 tablet 08/28/15 Unknown Rx [Percocet 10/325 mg] Promethazine [Phenergan TAB] 25 mg PO Q6HR PRN #20 tab 08/28/15 Unknown Rx Tamsulosin [Flomax] 0.4 mg PO QDAY #7 cap 08/28/15 Unknown Rx amLODIPine [Norvasc] 10 mg PO DAILY #30 tab 08/28/15 Unknown Rx AtorvaSTATin [Lipitor] 40 mg PO QHS 03/11/22 03/11/22 Unknown History Metoprolol Succinate [Toprol Xl] 50 mg PO DAILY 03/11/22 03/11/22 Unknown History Varenicline Tartrate [Chantix] 1 mg PO BID 03/11/22 03/11/22 Unknown History hydroCHLOROthiazide 12.5 mg PO DAILY 03/11/22 03/11/22 Unknown History [Hydrochlorothiazide] metHOTREXate sodium [Methotrexate] 2.5 mg PO 1XW 03/11/22 03/11/22 Unknown History Active Medications: Generic Name Dose Route Start Last Admin Trade Name Freq PRN Reason Stop Dose Admin Acetaminophen 650 mg 03/08/22 20:07 03/15/22 07:13 Acetaminophen 325 Mg Tab PO 650 mg Q6H PRN Administration Pain MILD(1-3)/Fever >100.5/HILTON Albuterol 2.5 mg 03/08/22 20:07 Albuterol 2.5 Mg/3 Ml Nebu IH Q3HRT PRN Shortness Of Breath Amiodarone HCl 200 mg 03/14/22 10:00 03/15/22 09:01 Amiodarone 200 Mg Tab PO 200 mg BID FRANCESCA Administration Aspirin 81 mg 03/11/22 10:00 03/15/22 09:02 Aspirin 81 Mg Tab Chew PO 81 mg QDAY FRANCESCA Administration Atorvastatin Calcium 40 mg 03/11/22 22:00 03/14/22 21:45 Atorvastatin 40 Mg Tab PO 40 mg QHS FRANCESCA Administration Enoxaparin Sodium 80 mg 03/14/22 10:00 03/15/22 09:04 Enoxaparin 80 Mg/0.8 Ml Inj SUB-Q 80 mg Q12HR FRANCESCA Administration Famotidine 20 mg 03/14/22 10:00 03/15/22 09:03 Famotidine 20 Mg Tab PO 20 mg DAILY FRANCESCA Administration Haloperidol Lactate 5 mg 03/10/22 18:12 03/15/22 08:45 Haloperidol Lactate 5 Mg/1 Ml Inj IV 5 mg Q6H PRN Administration Agitation Cefepime HCl 1 gm in 100 mls @ 200 mls/hr 03/12/22 11:00 03/15/22 12:46 Cefepime/Ns 1 Gm/100 Ml IV 200 mls/hr Q12H FRANCESCA Administration Protocol Acyclovir 400 mg/ Sodium 108 mls @ 100 mls/hr 03/14/22 14:00 03/15/22 02:45 Chloride IV 100 mls/hr Q12H FRANCESCA Administration Protocol Vancomycin HCl 1 gm in 250 mls @ 125 mls/hr 03/14/22 13:00 03/14/22 13:38 Vancomycin/Ns 1 Gm/250 Ml IV 125 mls/hr Q24H FRANCESCA Administration Protocol Sodium Chloride 1,000 mls @ 42 mls/hr 03/14/22 13:45 03/14/22 18:10 Nacl 0.9% 1000 Ml IV 42 mls/hr DIRECT FRANCESCA Administration Ampicillin Sodium 2 gm in 100 mls @ 200 mls/hr 03/15/22 04:00 03/15/22 05:00 Ampicillin/Ns 2 Gm/100 Ml IV 200 mls/hr Q12H FRANCESCA Administration Protocol Methotrexate 2.5 mg 03/11/22 16:00 03/11/22 17:00 Methotrexate 2.5 Mg Tab (Dose Weekly Only) PO 2.5 mg Fr FRANCESCA Administration Metoprolol Tartrate 50 mg 03/10/22 17:49 03/15/22 09:01 Metoprolol Tartrate 25 Mg Tab PO 50 mg BID FRANCESCA Administration Morphine Sulfate 2 mg 03/08/22 20:07 03/15/22 12:51 Morphine 4 Mg/1 Ml Inj IV 2 mg Q8H PRN Administration Pain , Severe (7-10) Naloxone HCl 0.4 mg 03/13/22 13:51 03/13/22 14:03 Naloxone 0.4 Mg/1 Ml Inj IV 0.4 mg ONCE FRANCESCA Administration Nicotine 21 mg 03/10/22 10:00 03/15/22 09:02 Nicotine 21 Mg/24 Hr Patch TD 21 mg QDAY FRANCESCA Administration Oxycodone/Acetaminophen 1 tab 03/08/22 20:07 03/11/22 21:37 Oxycodone /Acetaminophen 5-325mg Tab PO 1 tab Q6H PRN Administration Pain, Moderate (4-6) Sodium Chloride 10 ml 03/08/22 22:00 03/15/22 09:05 Sodium Chloride 0.9% 10 Ml Flush Syringe IV 10 ml BID FRANCESCA Administration Sodium Chloride 10 ml 03/08/22 20:07 Sodium Chloride 0.9% 10 Ml Flush Syringe IV PRN PRN LINE FLUSH Tramadol HCl 50 mg 03/08/22 20:11 03/14/22 15:35 Tramadol 50 Mg Tab PO 50 mg Q6H PRN Administration Pain, Moderate (4-6)
--- NOTE | 2022-03-15 14:12 | Progress Note ---
Assessment and Plan Assessment and plan: Assessment and plan: This is a 67-year-old male with known past medical history of vascular dementia, cerebral atherosclerosis, BPH, gastric bypass, renal insufficency, HTN, tho racic aortic aneurysm without rupture, nicotine dependence, benign lungs nodules s/p LDCT, RA, and debility admitted for NSTEMI, AFib with RVR, and MARIE Hospital Course to Date: 03/09: Stable on RA, denied ay pain nor any discomfort at this time. SR with PACs noted on the monitor, VSS. Renal function mild improvement in renal function this am. Continue schedule BB for rate control and therapeutic Lovenox subQ. 2D echo pending and Cardiology consulted. Nephrology is also following. 03/10: More awake today but confused, remains stable on RA. ST with frequent PACs, VSS. Per cardio patient is most likely in MATs. 2D echo still pending, continue BB. Renal function is stable, continue current care per nephro. Nicotine patch added for increase cigarettes urges. Patient's brother provided contact for 3 providers who patient have seen in the past, medical records requested. 03/11: On amiodarone gtt per cardio. Remains in ST with PACs on the monitor, VSS. Plan to switch amio gtt, continue BB. Received records from patient's providers, medical history updated. Per records patient was on Wellbutrin for tobacco dependence but was switched to Chantix in August of this year and patient has not been seen by any of these providers since August 2021. Mental health/spych was also consulted for further eval and treat. 03/12: Patient seen and examined Case discussed with infectious disease concerning for possible sepsis chest x-ray reviewed no acute pneumonia UA without any concern for UTI. Patient does have some abdominal tenderness for which have ordered a CT abdomen and pelvis with oral contrast to further evaluate. We will monitor for worsening renal function as patient has a baseline CKD. Unfortunately due to this cannot get IV contrast. ID started the patient on cefepime 1 g every 12 hours while we will monitor. In the meantime patient can be transferred to telemetry continues on amiodarone p.o. for A. fib. Remains critically ill at this time. 03/13: Patient seen and examined, more lethargic today, May need NGT for Tube feeds if not improving. CTAP was unremarkable. Will start on fluids, cultures remains negative, low grade temp noted. May need LP if no improvement in am. UDS positive for THC on 03/08 No family present. Lady friend visited yesterday, not sure relationship to discuss his clinical condition. Received rispiradone but was already with similar lethargy at the time. 03/14: Patient seen and examined more awake today compared to yesterday but still not following any commands. CT head is negative.. ID broadened antibiotics and recommended lumbar puncture as there is no explanation as to the patient's a ltered mental status that has remained persistent. Again patient was given Ativan a few days ago for CT although that his mental status was still altered he was at least conversational. Lumbar puncture could not be performed today because the patient was moving around a lot. I am avoiding giving a repeat Ativan as I believe that this may have contributed to this recent change. We will await a.m. on reevaluation. NG tube has been placed patient tolerating diet through that. Will need some rehab prior to discharge when clinically improved. Creatinine remains 2.0 we will continue to monitor and trend. Nephrology input appreciated. Due to broaden antibiotics we will start on gentle hydration for renal protection purposes. Again as mentioned I updated patient's brother yesterday who will call back to let us know if the patient's longstanding girlfriend can make decisions. 03/15: Patient seen today. Off to radiology suite for LP. Will follow CSF analysis ordered. Continue tx with vancomycin/cefepime/ampicillin/acylcovir. Per RN, this AM patient was able to recite name and answer some yes/no questions. Will need reassessment tomorrow for mental status. Will need continued PT/OT. Assessment and Plan #NSTEMI (non-ST elevated myocardial infarction) #New Onset Atrial Fibrillation with RVR #Hypertension - Presented with AMS, found in AFib with RVR in the ED with elevated troponin - No report of previous Afib history, most likely new onset - Troponin downtrending - Per patient's brother patient sees a PCP in [place], however patient has been refusing to go to the doctor - s/p Chey gtt - Cardiology consulted, appreciate recommendations - Patient is ST with PACs on the monitor. Per cardio most likely MATs. Patient denied any chest pain, VSS - On Amiodarone gtt, plan to switch to PO today - Continue BB and therapeutic Lovenox - 2D Echo noted, EF 25-30% - Continue blood pressure monitor per protocol - Maintain SBP less than 160 #Acute kidney injury(MARIE) - Baseline renal function is unknown, most likely prerenal secondary to above - Renal function remains stable - Neprology consulted, appreciated recommendations - Strict intake and output - Avoid nephrotoxic medications; Renally dose medications - Monitor and replace electrolytes as needed #SIRS (Systemic Inflammatory Response Syndrome)/Sepsis - Presented with leukocytosis and tachycardia, but afebrile - X1 dose of Empiric IV antibiotic given in the ED - UA unremakarble, Blood cultures with NGTD - Patient remains afebrile, leukocytosis improved - Will continue to monitor for now - F/u on cultures #Acute Metabolic Encephalopathy #Vascular Dementia - Presented with increased weakness and decreased responsiveness over the past 1 week - Probably secondary to above - Mentation improved this am, still with periods of confusion - Verbal prompting, verbal redirection - Avoid benzodiazepine to reduce the possibility of delirium - Maintenance of sleep-wake cycle #Severe Arthritis #Debility - Supportive measures - PRN analgesia for pain control - PT/OT consulted #Nicotine Dependence #THC - Per patient he smoke at least a pack a day - Was initially on wellbutrin at home, but was switched to Chantix back in August - smoking cessation education provided. Patient verbalized understanding and ag wander with the info provided - Nicotine qDay - Mental/Psych consulted for further eval #GI/DVT Prophylaxis - PPI- Pepcid - Lovenox SubQ - SCDs bilateral lower extremities while in bed, #Advance Care Planning - Disease education data, care plan, diagnoses, and prognosis were discussed with patient and patient's brother at the bedside. Patient is a FULL code. They acknowledged understanding and agreed with current care plan. Disposition Plan: tele Total Time Spent with Patient (Minutes): 35 History Interval history: Patient seen today. Off to radiology suite for LP. Will follow CSF analysis ordered. Per RN, this AM patient was able to recite name and answer some yes/no questions. Hospitalist Physical - Physical exam Narrative exam: Physical Exam: Constitutional: drowsy Head, Ears, Nose: Normocephalic, atraumatic. External ears, nose normal Eyes: Conjunctivae/corneas clear. No icterus. No ptosis. Neck: Supple, no meningeal signs Cardiovascular: S1, S2 + Respiratory: Good air entry, clear to auscultation bilaterally GI: Seems to have some abdominal guarding, Arteaga present, bowel sounds + Musculoskeletal: No pedal edema, no cyanosis. Skin: No rash or abscess Hem/Lymphatic: No palpable cervical or supraclavicular nodes. No lymphangitis Psych: drowsy Neurological: drowsy - Constitutional Vitals: Temp Pulse Resp BP Pulse Ox 97.7 F 57 L 22 118/78 96 03/15/22 11:39 03/15/22 11:39 03/15/22 11:39 03/15/22 11:39 03/15/22 11:39 General appearance: Present: no acute distress, well-nourished, obese HEART Score - HEART Score Troponin: Troponin T 0.119 ng/mL (0.00-0.029) H* D 03/09/22 02:13 Results - Labs CBC & Chem 7: 03/15/22 05:19 03/15/22 05:19 Labs: Laboratory Last Values WBC 13.9 K/mm3 (4.5-11.0) H 03/15/22 05:19 RBC 3.42 M/mm3 (3.65-5.03) L 03/15/22 05:19 Hgb 8.6 gm/dl (11.8-15.2) L 03/15/22 05:19 Hct 27.3 % (35.5-45.6) L 03/15/22 05:19 MCV 80 fl (84-94) L 03/15/22 05:19 MCH 25 pg (28-32) L 03/15/22 05:19 MCHC 32 % (32-34) 03/15/22 05:19 RDW 16.8 % (13.2-15.2) H 03/15/22 05:19 Plt Count 410 K/mm3 (140-440) 03/15/22 05:19 Lymph % (Auto) 7.9 % (13.4-35.0) L 03/15/22 05:19 [place] % (Auto) 6.8 % (0.0-7.3) 03/15/22 05:19 Eos % (Auto) 2.6 % (0.0-4.3) 03/15/22 05:19 Baso % (Auto) 0.5 % (0.0-1.8) 03/15/22 05:19 Lymph # (Auto) 1.1 K/mm3 (1.2-5.4) L 03/15/22 05:19 [place] # (Auto) 0.9 K/mm3 (0.0-0.8) H 03/15/22 05:19 Eos # (Auto) 0.4 K/mm3 (0.0-0.4) 03/15/22 05:19 Baso # (Auto) 0.1 K/mm3 (0.0-0.1) 03/15/22 05:19 Add Manual Diff Complete 03/09/22 02:13 Total Counted 100 03/09/22 02:13 Seg Neutrophils % 82.2 % (40.0-70.0) H 03/15/22 05:19 Seg Neuts % (Manual) 80.0 % (40.0-70.0) H 03/09/22 02:13 Band Neutrophils % 0 % 03/09/22 02:13 Lymphocytes % (Manual) 11.0 % (13.4-35.0) L 03/09/22 02:13 Reactive Lymphs % (Man) 0 % 03/09/22 02:13 Monocytes % (Manual) 8.0 % (0.0-7.3) H 03/09/22 02:13 Eosinophils % (Manual) 1.0 % (0.0-4.3) 03/09/22 02:13 Basophils % (Manual) 0 % (0.0-1.8) 03/09/22 02:13 Metamyelocytes % 0 % 03/09/22 02:13 Myelocytes % 0 % 03/09/22 02:13 Promyelocytes % 0 % 03/09/22 02:13 Blast Cells % 0 % 03/09/22 02:13 Nucleated RBC % Not Reportable 03/09/22 02:13 Seg Neutrophils # 11.4 K/mm3 (1.8-7.7) H 03/15/22 05:19 Seg Neutrophils # Man 8.5 K/mm3 (1.8-7.7) H 03/09/22 02:13 Band Neutrophils # 0.0 K/mm3 03/09/22 02:13 Lymphocytes # (Manual) 1.2 K/mm3 (1.2-5.4) 03/09/22 02:13 Abs React Lymphs (Man) 0.0 K/mm3 03/09/22 02:13 Monocytes # (Manual) 0.8 K/mm3 (0.0-0.8) 03/09/22 02:13 Eosinophils # (Manual) 0.1 K/mm3 (0.0-0.4) 03/09/22 02:13 Basophils # (Manual) 0.0 K/mm3 (0.0-0.1) 03/09/22 02:13 Metamyelocytes # 0.0 K/mm3 03/09/22 02:13 Myelocytes # 0.0 K/mm3 03/09/22 02:13 Promyelocytes # 0.0 K/mm3 03/09/22 02:13 Blast Cells # 0.0 K/mm3 03/09/22 02:13 WBC Morphology Not Reportable 03/09/22 02:13 Hypersegmented Neuts Not Reportable 03/09/22 02:13 Hyposegmented Neuts Not Reportable 03/09/22 02:13 Hypogranular Neuts Not Reportable 03/09/22 02:13 Smudge Cells Not Reportable 03/09/22 02:13 Toxic Granulation Not Reportable 03/09/22 02:13 Toxic Vacuolation Not Reportable 03/09/22 02:13 Dohle Bodies Not Reportable 03/09/22 02:13 Pelger-Huet Anomaly Not Reportable 03/09/22 02:13 Marylin Rods Not Reportable 03/09/22 02:13 Platelet Estimate Consistent w auto 03/09/22 02:13 Clumped Platelets Not Reportable 03/09/22 02:13 Plt Clumps, EDTA Not Reportable 03/09/22 02:13 Large Platelets Not Reportable 03/09/22 02:13 Giant Platelets Not Reportable 03/09/22 02:13 Platelet Satelliting Not Reportable 03/09/22 02:13 Plt Morphology Comment Not Reportable 03/09/22 02:13 RBC Morphology Normal 03/09/22 02:13 Dimorphic RBCs Not Reportable 03/09/22 02:13 Polychromasia Not Reportable 03/09/22 02:13 Hypochromasia Not Reportable 03/09/22 02:13 Poikilocytosis Not Reportable 03/09/22 02:13 Anisocytosis Not Reportable 03/09/22 02:13 Microcytosis Not Reportable 03/09/22 02:13 Macrocytosis Not Reportable 03/09/22 02:13 Spherocytes Not Reportable 03/09/22 02:13 Pappenheimer Bodies Not Reportable 03/09/22 02:13 Sickle Cells Not Reportable 03/09/22 02:13 Target Cells Not Reportable 03/09/22 02:13 Tear Drop Cells Not Reportable 03/09/22 02:13 Ovalocytes Not Reportable 03/09/22 02:13 Helmet Cells Not Reportable 03/09/22 02:13 [place] Bodies Not Reportable 03/09/22 02:13 [place] Rings Not Reportable 03/09/22 02:13 Damari Cells Not Reportable 03/09/22 02:13 Bite Cells Not Reportable 03/09/22 02:13 Crenated Cell Not Reportable 03/09/22 02:13 Elliptocytes Not Reportable 03/09/22 02:13 Acanthocytes (Spur) Not Reportable 03/09/22 02:13 Rouleaux Not Reportable 03/09/22 02:13 Hemoglobin C Crystals Not Reportable 03/09/22 02:13 Schistocytes Not Reportable 03/09/22 02:13 Malaria parasites Not Reportable 03/09/22 02:13 Cristino Bodies Not Reportable 03/09/22 02:13 Hem Pathologist Commnt No 03/09/22 02:13 PT 15.7 Sec. (12.2-14.9) H 03/08/22 12:29 INR 1.09 (0.87-1.13) 03/08/22 12:29 ABG pH 7.470 pH Units (7.350-7.450) H 03/13/22 16:05 ABG pCO2 28.0 mm Hg 03/13/22 16:05 ABG pO2 78.5 mm Hg (80.0-90.0) L 03/13/22 16:05 ABG HCO3 19.9 mmol/L (20.0-26.0) L 03/13/22 16:05 ABG O2 Saturation 96.9 % (95.0-99.0) 03/13/22 16:05 ABG O2 Content 10.9 (0.0-44) 03/13/22 16:05 ABG Base Excess -3.1 mmol/L (-2.0-3.0) L 03/13/22 16:05 ABG Hemoglobin 8.1 gm/dl (14.0-18.0) L 03/13/22 16:05 ABG Carboxyhemoglobin 1.2 % (0.0-5.0) 03/13/22 16:05 ABG Methemoglobin 0.5 % (0.0-1.5) 03/13/22 16:05 Oxyhemoglobin 95.3 % (95.0-99.0) 03/13/22 16:05 FiO2 21 % 03/13/22 16:05 Sodium 140 mmol/L (137-145) 03/15/22 05:19 Potassium 4.0 mmol/L (3.6-5.0) 03/15/22 05:19 Chloride 110.6 mmol/L (98-107) H 03/15/22 05:19 Carbon Dioxide 20 mmol/L (22-30) L 03/15/22 05:19 Anion Gap 13 mmol/L 03/15/22 05:19 BUN 28 mg/dL (9-20) H 03/15/22 05:19 Creatinine 1.8 mg/dL (0.8-1.3) H 03/15/22 05:19 Estimated GFR 46 ml/min 03/15/22 05:19 BUN/Creatinine Ratio 16 % 03/15/22 05:19 Glucose 114 mg/dL (75-100) H 03/15/22 05:19 POC Glucose 101 mg/dL (70-105) 03/15/22 11:40 Lactic Acid 1.40 mmol/L (0.7-2.0) 03/08/22 12:29 Calcium 9.5 mg/dL (8.4-10.2) 03/15/22 05:19 Phosphorus 2.20 mg/dL (2.5-4.5) L 03/15/22 05:19 Magnesium 2.20 mg/dL (1.7-2.3) 03/15/22 05:19 Total Bilirubin 0.40 mg/dL (0.1-1.2) 03/15/22 05:19 AST 51 units/L (5-40) H 03/15/22 05:19 ALT 26 units/L (7-56) 03/15/22 05:19 Alkaline Phosphatase 177 units/L (35-129) H 03/15/22 05:19 Ammonia 10.0 umol/L (25-60) L 03/13/22 19:38 Total Creatine Kinase 53 units/L (55-170) L 03/08/22 12:29 Troponin T 0.119 ng/mL (0.00-0.029) H* D 03/09/22 02:13 C-Reactive Protein 16.20 mg/dL (0.00-1.30) H 03/08/22 12:29 Total Protein 6.5 g/dL (6.3-8.2) 03/15/22 05:19 Albumin 2.2 g/dL (3.9-5) L 03/15/22 05:19 Albumin/Globulin Ratio 0.5 % 03/15/22 05:19 Triglycerides 105 mg/dL (2-149) 03/08/22 12:29 Cholesterol 136 mg/dL (50-199) 03/08/22 12:29 LDL Cholesterol Direct 76 mg/dL (50-130) 03/08/22 12:29 HDL Cholesterol 35 mg/dL (40-59) L 03/08/22 12:29 Cholesterol/HDL Ratio 3.88 % 03/08/22 12:29 PTH Intact 45.32 pg/mL (15-65) 03/11/22 03:52 Urine Color Yellow (Yellow) 03/08/22 14:38 Urine Turbidity Clear (Clear) 03/08/22 14:38 Urine pH 6.0 (5.0-7.0) 03/08/22 14:38 Ur Specific [place] 1.015 (1.003-1.030) 03/08/22 14:38 Urine Protein 30 mg/dl mg/dL (Negative) 03/08/22 14:38 Urine Glucose (UA) Negative mg/dL (Negative) 03/08/22 14:38 Urine Ketones Negative mg/dL (Negative) 03/08/22 14:38 Urine Blood 1+ (Negative) 03/08/22 14:38 Urine Nitrite Negative (Negative) 03/08/22 14:38 Ur Reducing Substances Negative (Negative) 03/08/22 14:38 Urine Bilirubin Negative (Negative) 03/08/22 14:38 Urine Urobilinogen 0.0 mg/dL (<2.0) 03/08/22 14:38 Ur Leukocyte Esterase Negative (Negative) 03/08/22 14:38 Urine WBC (Auto) 3.0 /HPF (0.0-6.0) 03/08/22 14:38 Urine RBC (Auto) 5.0 /HPF (0.0-6.0) 03/08/22 14:38 U Epithel Cells (Auto) 3.0 /HPF (0-13.0) 03/08/22 14:38 Urine Bacteria (Auto) 1+ /HPF (Negative) 03/08/22 14:38 Hyaline Casts 2 /LPF 03/08/22 14:38 Urine Mucus 1+ /HPF 03/08/22 14:38 Urine Creatinine 167.4 mg/dL (0.1-20.0) H 03/09/22 15:25 Urine Sodium 49 mmol/L 03/09/22 15:25 Salicylates < 0.3 mg/dL (2.8-20.0) L 03/08/22 12:29 Urine Opiates Screen Negative 03/08/22 14:38 Urine Methadone Screen Negative 03/08/22 14:38 Acetaminophen 5.0 ug/mL (10.0-30.0) L 03/08/22 12:29 Ur Barbiturates Screen Negative 03/08/22 14:38 Ur Phencyclidine Scrn Negative 03/08/22 14:38 Ur Amphetamines Screen Negative 03/08/22 14:38 U Benzodiazepines Scrn Negative 03/08/22 14:38 Urine Cocaine Screen Negative 03/08/22 14:38 U Marijuana (THC) Screen Positive 03/08/22 14:38 Drugs of Abuse Note Disclamer 03/08/22 14:38 Plasma/Serum Alcohol < 0.01 % (0-0.07) 03/08/22 12:29 Arteaga/IV: Voiding Method Indwelling Catheter Active Medications - Current Medications Current Medications: Generic Name Dose Route Start Last Admin Trade Name Freq PRN Reason Stop Dose Admin Acetaminophen 650 mg 03/08/22 20:07 03/15/22 07:13 Acetaminophen 325 Mg Tab PO 650 mg Q6H PRN Administration Pain MILD(1-3)/Fever >100.5/[place] Albuterol 2.5 mg 03/08/22 20:07 Albuterol 2.5 Mg/3 Ml Nebu IH Q3HRT PRN Shortness Of Breath Amiodarone HCl 200 mg 03/14/22 10:00 03/15/22 09:01 Amiodarone 200 Mg Tab PO 200 mg BID FRANCESCA Administration Aspirin 81 mg 03/11/22 10:00 03/15/22 09:02 Aspirin 81 Mg Tab Chew PO 81 mg QDAY FRANCESCA Administration Atorvastatin Calcium 40 mg 03/11/22 22:00 03/14/22 21:45 Atorvastatin 40 Mg Tab PO 40 mg QHS FRANCESCA Administration Enoxaparin Sodium 80 mg 03/14/22 10:00 03/15/22 09:04 Enoxaparin 80 Mg/0.8 Ml Inj SUB-Q 80 mg Q12HR FRANCESCA Administration Famotidine 20 mg 03/14/22 10:00 03/15/22 09:03 Famotidine 20 Mg Tab PO 20 mg DAILY FRANCESCA Administration Haloperidol Lactate 5 mg 03/10/22 18:12 03/15/22 08:45 Haloperidol Lactate 5 Mg/1 Ml Inj IV 5 mg Q6H PRN Administration Agitation Cefepime HCl 1 gm in 100 mls @ 200 mls/hr 03/12/22 11:00 03/15/22 12:46 Cefepime/Ns 1 Gm/100 Ml IV 200 mls/hr Q12H FRANCESCA Administration Protocol Acyclovir 400 mg/ Sodium 108 mls @ 100 mls/hr 03/14/22 14:00 03/15/22 02:45 Chloride IV 100 mls/hr Q12H FRANCESCA Administration Protocol Vancomycin HCl 1 gm in 250 mls @ 125 mls/hr 03/14/22 13:00 03/14/22 13:38 Vancomycin/Ns 1 Gm/250 Ml IV 125 mls/hr Q24H FRANCESCA Administration Protocol Sodium Chloride 1,000 mls @ 42 mls/hr 03/14/22 13:45 03/14/22 18:10 Nacl 0.9% 1000 Ml IV 42 mls/hr DIRECT FRANCESCA Administration Ampicillin Sodium 2 gm in 100 mls @ 200 mls/hr 03/15/22 04:00 03/15/22 05:00 Ampicillin/Ns 2 Gm/100 Ml IV 200 mls/hr Q12H FRANCESCA Administration Protocol Methotrexate 2.5 mg 03/11/22 16:00 03/11/22 17:00 Methotrexate 2.5 Mg Tab (Dose Weekly Only) PO 2.5 mg Fr FRANCESCA Administration Metoprolol Tartrate 50 mg 03/10/22 17:49 03/15/22 09:01 Metoprolol Tartrate 25 Mg Tab PO 50 mg BID FRANCESCA Administration Morphine Sulfate 2 mg 03/08/22 20:07 03/15/22 12:51 Morphine 4 Mg/1 Ml Inj IV 2 mg Q8H PRN Administration Pain , Severe (7-10) Naloxone HCl 0.4 mg 03/13/22 13:51 03/13/22 14:03 Naloxone 0.4 Mg/1 Ml Inj IV 0.4 mg ONCE FRANCESCA Administration Nicotine 21 mg 03/10/22 10:00 03/15/22 09:02 Nicotine 21 Mg/24 Hr Patch TD 21 mg QDAY FRANCESCA Administration Oxycodone/Acetaminophen 1 tab 03/08/22 20:07 03/11/22 21:37 Oxycodone /Acetaminophen 5-325mg Tab PO 1 tab Q6H PRN Administration Pain, Moderate (4-6) Sodium Chloride 10 ml 03/08/22 22:00 03/15/22 09:05 Sodium Chloride 0.9% 10 Ml Flush Syringe IV 10 ml BID FRANCESCA Administration Sodium Chloride 10 ml 03/08/22 20:07 Sodium Chloride 0.9% 10 Ml Flush Syringe IV PRN PRN LINE FLUSH Tramadol HCl 50 mg 03/08/22 20:11 03/14/22 15:35 Tramadol 50 Mg Tab PO 50 mg Q6H PRN Administration Pain, Moderate (4-6) Nutrition/Malnutrition Assess - Dietary Evaluation Nutrition/Malnutrition Findings: Nutrition Notes Start: 03/14/22 11:02 Freq: Status: Active Protocol: Document 03/14/22 11:02 ABDIAS (Rec: 03/14/22 11:39 [email or web address]) Nutrition Notes Need for Assessment generated from: MD Order Initial or Follow up Assessment Current Diagnosis Acute Kidney Injury,Sepsis, Hypertension,Stroke Other Pertinent Diagnosis NSTEMI II, Atrial Fibrilation/ RVR, Metabolic Encephalopathy, SIRS, ... Current Diet TF-Nepro w/CARBSTEADY @ 50 ml/ hr (since D 03/13). Labs/Tests 03/14: Cl 108.2, CO2 19, BUN 30, Crea 2.0, Glu 125. Pertinent Medications 03/14: Nutritionally unremarkable. Height 6 ft Weight 73 kg [place] Body Weight (kg) 80.90 BMI 21.8 Intake Prior to Admission Good Weight change and time frame Pt denies having loss body weight [employer]. Weight Status Appropriate Subjective/Other Information RD consult for write/manage TF . Pt on NPO, unable to swallow due to lethargy and confusion, according to Progress notes. Pt already on TF since D 03/13 per MD. I will revise and prescribe TF to provide Pt with energy/protein needs during LOS. Pt is on Room Air, O2 saturation @ 97%, according to Physical Assessment History notes, Pt has missing teeth, according to Physical Assessment History notes, Pt passed bedside swallow evaluatiuon on 03/09, according to Swallow Screen notes. Pt presents unspecified dryness and flaking as signs of concern for skin risk at the time, according to Physical Assessment History notes, Percent of energy/protein needs met: Py currently on NPO. Prescribed TF-Nepro w/ CARBSTEADY @ 50 ml/hr provides for energy/protein needs (2, 180 Kcal/98 g) during LOS, 96% Kcal; 111% AA. Burn Absent Trauma Absent GI Symptoms None Difficulty In Swallowing Food Allergy No Skin Integrity/Comment Unspecified dryness and flaking. Current % PO Other Minimum of two criteria No Fluid Accumulation N/A Reduced Monitor Technician Strength N/A (non-severe) Protein-Calorie Malnutrition N\A #1 Nutrition Diagnosis Inadequate oral intake Etiology Pt currently swallow impaired due to Metabolic Encephalopathy. As Evidenced by Signs and Symptoms Pt currently on NPO. Is patient on ventilator? No Is Patient Ambulatory and/or Out of Bed No REE-([facility]-confined to bed) 1863.060 Kcal/Kg value to use for calculation 31 Approximate Energy Requirements Using 2263 kcal/Kg Calculation Used for Recommendations Kcal/kg Additional Notes Protein: 0.8-1.2 g/Kg ABW; 58- 88 g/day. Fluids: 1 ml/Kcal, or as per MD. Nutrition Intervention Nutrition Support: Adjust TF-Nepro w/CARBSTEADY @ 50 ml/hr. Flush: 230 ml water Q 4 hr, or as per MD. Kcal 2,180 Protein (gm) 98 Carbohydrates (gm) 195 Fat (gm) 116 Fluid (mL) 880 Fiber (gm) 15 % RDI: 96% Kcal; 111% AA. Goal #1 Provide at least 75% of energy /protein needs through Enteral Feeding during LOS. Follow-Up By: 03/16/22 Additional Comments Continue monitoring TF tolerance and BM.
[2022-03-15] MEDS: VANCOMYCIN/NS 1 GM/250 ML 1 GM/250 ML BAG IV SCH (14:39)
--- NOTE | 2022-03-15 14:41 | Progress Note ---
Assessment and Plan Patient is a 67-year-old male with a reported past medical history of vascular dementia, cerebral atherosclerosis, BPH, hypertension, nicotine dependence who presented to the ED yesterday for complaint of AMS x2. Altered mental status NSTEMI suspect type II MARIE Leukocytosis A. fib?/MAT Hypertension Vascular dementia Echo 03/09/2022-EF 25 to 30%. Severe global hypokinesis of left ventricle. Moderate concentric LVH. Mild diastolic dysfunction is present impaired relaxation pattern. Moderate aortic regurgitation. No pericardial effusion Plan: Conservative cardiac mgmt recommended in light of mental status. Continue to Amio 200mg PO BID If no route for PO meds and any recurrent tachyarrhythmias, can restart IV Amiodarone gtt Continue anticoagulation with Lovenox Continue metoprolol 50mg PO BID for rate control Will hold NATALYA and ARB due to elevated creatinine Pt seen in conjunction with Dr. Nuñez, who agrees with the assessment and plan of care - Patient Problems (1) Multifocal atrial tachycardia Current Visit: Yes Status: Acute (2) Acute kidney injury (MARIE) with acute tubular necrosis (ATN) Current Visit: Yes Status: Acute (3) Altered mental status Current Visit: Yes Status: Acute (4) Atrial fibrillation with RVR Current Visit: Yes Status: Acute (5) CKD (chronic kidney disease) Current Visit: Yes Status: Acute (6) Cerebral atherosclerosis Current Visit: Yes Status: Chronic (7) Elevated troponin Current Visit: Yes Status: Acute (8) NSTEMI (non-ST elevated myocardial infarction) Current Visit: Yes Status: Acute (9) SIRS (systemic inflammatory response syndrome) Current Visit: Yes Status: Acute (10) Vascular dementia Current Visit: Yes Status: Chronic Qualifiers: Dementia behavioral disturbance: with behavioral disturbance Qualified Code(s): F01.51 - Vascular dementia with behavioral disturbance (11) Weakness Current Visit: Yes Status: Acute Subjective Date of service: 03/15/22 Principal diagnosis: NSTEMI ?Type 2 [place] Interval history: Patient for LP at this time Patient appears to be in MAT 90s-low 100s Objective Vital Signs Temp Pulse Pulse Resp BP Pulse Ox 03/15/22 11:39 97.7 F 57 L 22 118/78 96 03/15/22 07:53 98.3 F 103 H 18 153/78 90 03/15/22 03:54 100.7 F H 98 H 18 154/87 92 03/14/22 23:11 98.7 F 73 20 125/86 96 03/14/22 22:00 78 92 H 18 97 03/14/22 21:45 61 137/88 03/14/22 19:14 99.3 F 61 22 137/88 96 03/14/22 15:09 97.8 F 69 17 138/81 94 - Physical Examination General: No Apparent Distress HEENT: Positive: Normocephaly, Mucus Membranes Dry Neck: Positive: trachea midline. Negative: JVD/HJR Cardiac: Positive: Reg Rate and Rhythm Lungs: Positive: Normal Breath Sounds Neuro: Positive: Other (somnolent) Abdomen: Positive: Soft Skin: Negative: Rash Extremities: Present: upper extr. pulses, warm. Absent: edema - Labs and Meds Cardiac Enzymes 03/15/22 Range/Units 05:19 AST 51 H (5-40) units/L CBC 03/15/22 Range/Units 05:19 WBC 13.9 H (4.5-11.0) K/mm3 RBC 3.42 L (3.65-5.03) M/mm3 Hgb 8.6 L (11.8-15.2) gm/dl Hct 27.3 L (35.5-45.6) % Plt Count 410 (140-440) K/mm3 Lymph # (Auto) 1.1 L (1.2-5.4) K/mm3 [place] # (Auto) 0.9 H (0.0-0.8) K/mm3 Eos # (Auto) 0.4 (0.0-0.4) K/mm3 Baso # (Auto) 0.1 (0.0-0.1) K/mm3 Comprehensive Metabolic Panel 03/15/22 Range/Units 05:19 Sodium 140 (137-145) mmol/L Potassium 4.0 (3.6-5.0) mmol/L Chloride 110.6 H (98-107) mmol/L Carbon Dioxide 20 L (22-30) mmol/L BUN 28 H (9-20) mg/dL Creatinine 1.8 H (0.8-1.3) mg/dL Glucose 114 H (75-100) mg/dL Calcium 9.5 (8.4-10.2) mg/dL AST 51 H (5-40) units/L ALT 26 (7-56) units/L Alkaline Phosphatase 177 H (35-129) units/L Total Protein 6.5 (6.3-8.2) g/dL Albumin 2.2 L (3.9-5) g/dL - Imaging and Cardiology EKG: report reviewed, image reviewed Echo: report reviewed - EKG Sinus rhythms and dysrhythmias: sinus rhythm Supraventricular dysrhythmia: multifocal atrial tachyca Ventricular dysrhythmias: ventricular premature com Myocardial infarction: septal LA (old age or ind, anterior LA (old age or i - Allied health notes Allied health notes reviewed: nursing
--- NOTE | 2022-03-15 15:52 | Consultation ---
History of Present Illness Consult date: 03/15/22 Reason for Consult: Confusion History of present illness: This is a 67-year-old male with known past medical history of vascular dementia, cerebral atherosclerosis, BPH, gastric bypass, renal insufficency, HTN, thoracic aortic aneurysm without rupture, nicotine dependence, benign lungs nodules s/p LDCT, RA, and debility admitted for NSTEMI, AFib with RVR, and MARIE The patient is able to communicate ,there is movement of the upper extremity. Past History Past Medical History: hypertension, other (See HPI) Social history: smoking Family history: hypertension Medications and Allergies Allergies Allergy/AdvReac Type Severity Reaction Status Date / Time lisinopril Allergy Hives Verified 03/11/22 15:41 Home Medications Medication Instructions Recorded Confirmed Last Taken Type Ibuprofen [Motrin] 400 mg PO Q8H PRN #30 tablet 08/28/15 Unknown Rx Oxycodone HCl/Acetaminophen 1 each PO Q6HR PRN #20 tablet 08/28/15 Unknown Rx [Percocet 10/325 mg] Promethazine [Phenergan TAB] 25 mg PO Q6HR PRN #20 tab 08/28/15 Unknown Rx Tamsulosin [Flomax] 0.4 mg PO QDAY #7 cap 08/28/15 Unknown Rx amLODIPine [Norvasc] 10 mg PO DAILY #30 tab 08/28/15 Unknown Rx AtorvaSTATin [Lipitor] 40 mg PO QHS 03/11/22 03/11/22 Unknown History Metoprolol Succinate [Toprol Xl] 50 mg PO DAILY 03/11/22 03/11/22 Unknown History Varenicline Tartrate [Chantix] 1 mg PO BID 03/11/22 03/11/22 Unknown History hydroCHLOROthiazide 12.5 mg PO DAILY 03/11/22 03/11/22 Unknown History [Hydrochlorothiazide] metHOTREXate sodium [Methotrexate] 2.5 mg PO 1XW 03/11/22 03/11/22 Unknown History Active Meds: Active Medications Acetaminophen (Acetaminophen 325 Mg Tab) 650 mg PO Q6H PRN PRN Reason: Pain MILD(1-3)/Fever >100.5/HILTON Last Admin: 03/15/22 07:13 Dose: 650 mg Albuterol (Albuterol 2.5 Mg/3 Ml Nebu) 2.5 mg IH Q3HRT PRN PRN Reason: Shortness Of Breath Amiodarone HCl (Amiodarone 200 Mg Tab) 200 mg PO BID [facility] Last Admin: 03/15/22 09:01 Dose: 200 mg Aspirin (Aspirin 81 Mg Tab Chew) 81 mg PO QDAY [facility] Last Admin: 03/15/22 09:02 Dose: 81 mg Atorvastatin Calcium (Atorvastatin 40 Mg Tab) 40 mg PO QHS [facility] Last Admin: 03/14/22 21:45 Dose: 40 mg Enoxaparin Sodium (Enoxaparin 80 Mg/0.8 Ml Inj) 80 mg SUB-Q Q12HR [facility] Last Admin: 03/15/22 09:04 Dose: 80 mg Famotidine (Famotidine 20 Mg Tab) 20 mg PO DAILY [facility] Last Admin: 03/15/22 09:03 Dose: 20 mg Haloperidol Lactate (Haloperidol Lactate 5 Mg/1 Ml Inj) 5 mg IV Q6H PRN PRN Reason: Agitation Last Admin: 03/15/22 08:45 Dose: 5 mg Cefepime HCl (Cefepime/Ns 1 Gm/100 Ml) 1 gm in 100 mls @ 200 mls/hr IV Q12H [facility]; Protocol Last Admin: 03/15/22 12:46 Dose: 200 mls/hr Acyclovir 400 mg/ Sodium (Chloride) 108 mls @ 100 mls/hr IV Q12H [facility]; Protocol Last Admin: 03/15/22 02:45 Dose: 100 mls/hr Vancomycin HCl (Vancomycin/Ns 1 Gm/250 Ml) 1 gm in 250 mls @ 125 mls/hr IV Q24H [facility]; Protocol Last Admin: 03/15/22 14:39 Dose: 125 mls/hr Sodium Chloride (Nacl 0.9% 1000 Ml) 1,000 mls @ 42 mls/hr IV DIRECT [facility] Last Admin: 03/14/22 18:10 Dose: 42 mls/hr Ampicillin Sodium (Ampicillin/Ns 2 Gm/100 Ml) 2 gm in 100 mls @ 200 mls/hr IV Q12H [facility]; Protocol Last Admin: 03/15/22 05:00 Dose: 200 mls/hr Methotrexate (Methotrexate 2.5 Mg Tab (Dose Weekly Only)) 2.5 mg PO Fr [facility] Last Admin: 03/11/22 17:00 Dose: 2.5 mg Metoprolol Tartrate (Metoprolol Tartrate 25 Mg Tab) 50 mg PO BID [facility] Last Admin: 03/15/22 09:01 Dose: 50 mg Morphine Sulfate (Morphine 4 Mg/1 Ml Inj) 2 mg IV Q8H PRN PRN Reason: Pain , Severe (7-10) Last Admin: 03/15/22 12:51 Dose: 2 mg Naloxone HCl (Naloxone 0.4 Mg/1 Ml Inj) 0.4 mg IV ONCE [facility] Last Admin: 03/13/22 14:03 Dose: 0.4 mg Nicotine (Nicotine 21 Mg/24 Hr Patch) 21 mg TD QDAY [facility] Last Admin: 03/15/22 09:02 Dose: 21 mg Oxycodone/Acetaminophen (Oxycodone /Acetaminophen 5-325mg Tab) 1 tab PO Q6H PRN PRN Reason: Pain, Moderate (4-6) Last Admin: 03/11/22 21:37 Dose: 1 tab Sodium Chloride (Sodium Chloride 0.9% 10 Ml Flush Syringe) 10 ml IV BID [facility] Last Admin: 03/15/22 09:05 Dose: 10 ml Sodium Chloride (Sodium Chloride 0.9% 10 Ml Flush Syringe) 10 ml IV PRN PRN PRN Reason: LINE FLUSH Tramadol HCl (Tramadol 50 Mg Tab) 50 mg PO Q6H PRN PRN Reason: Pain, Moderate (4-6) Last Admin: 03/14/22 15:35 Dose: 50 mg Physical Examination - Vital Signs Vital Signs: Vital Signs Temp Pulse Resp BP Pulse Ox 99.4 F 150 H 30 H 140/70 97 03/08/22 12:02 03/08/22 12:02 03/08/22 12:02 03/08/22 12:02 03/08/22 12:02 - Physical Exam Narrative exam: The patient has dysarthria, moves upper extremity , no neck stiffness . Results - Laboratory Findings CBC and BMP: 03/15/22 05:19 03/15/22 05:19 Abnormal Lab Findings: Abnormal Labs 03/08/22 03/08/22 03/08/22 12:29 12:29 12:29 WBC 12.8 H RBC Hgb 10.7 L Hct 34.5 L MCV 82 L MCH 25 L MCHC 31 L RDW 16.5 H Plt Count Lymph % (Auto) 9.0 L [place] % (Auto) 11.2 H Lymph # (Auto) 1.1 L [place] # (Auto) 1.4 H Seg Neutrophils % 77.0 H Seg Neuts % (Manual) Lymphocytes % (Manual) Monocytes % (Manual) Seg Neutrophils # 9.8 H Seg Neutrophils # Man PT 15.7 H ABG pH ABG pO2 ABG HCO3 ABG Base Excess ABG Hemoglobin Chloride Carbon Dioxide BUN 37 H Creatinine 1.9 H Glucose 108 H POC Glucose Calcium 10.6 H Phosphorus AST Alkaline Phosphatase Ammonia Total Creatine Kinase 53 L Troponin T 0.149 H* C-Reactive Protein 16.20 H Albumin 3.0 L HDL Cholesterol 35 L Urine Creatinine Salicylates Acetaminophen 03/08/22 03/08/22 03/08/22 12:29 12:29 12:29 WBC RBC Hgb Hct MCV MCH MCHC RDW Plt Count Lymph % (Auto) [place] % (Auto) Lymph # (Auto) [place] # (Auto) Seg Neutrophils % Seg Neuts % (Manual) Lymphocytes % (Manual) Monocytes % (Manual) Seg Neutrophils # Seg Neutrophils # Man PT ABG pH ABG pO2 ABG HCO3 ABG Base Excess ABG Hemoglobin Chloride Carbon Dioxide BUN Creatinine Glucose POC Glucose Calcium Phosphorus AST Alkaline Phosphatase Ammonia 14.0 L Total Creatine Kinase Troponin T C-Reactive Protein Albumin HDL Cholesterol Urine Creatinine Salicylates < 0.3 L Acetaminophen 5.0 L 03/08/22 03/09/22 03/09/22 23:04 02:13 02:13 WBC RBC Hgb 10.4 L Hct 31.0 L MCV 80 L MCH 27 L MCHC RDW 16.7 H Plt Count Lymph % (Auto) [place] % (Auto) Lymph # (Auto) [place] # (Auto) Seg Neutrophils % Seg Neuts % (Manual) 80.0 H Lymphocytes % (Manual) 11.0 L Monocytes % (Manual) 8.0 H Seg Neutrophils # Seg Neutrophils # Man 8.5 H PT ABG pH ABG pO2 ABG HCO3 ABG Base Excess ABG Hemoglobin Chloride Carbon Dioxide 21 L BUN 33 H Creatinine 1.6 H Glucose POC Glucose Calcium Phosphorus AST Alkaline Phosphatase Ammonia Total Creatine Kinase Troponin T 0.268 H* D C-Reactive Protein Albumin 2.5 L HDL Cholesterol Urine Creatinine Salicylates Acetaminophen 03/09/22 03/09/22 03/09/22 02:13 05:40 15:25 WBC RBC Hgb Hct MCV MCH MCHC RDW Plt Count Lymph % (Auto) [place] % (Auto) Lymph # (Auto) [place] # (Auto) Seg Neutrophils % Seg Neuts % (Manual) Lymphocytes % (Manual) Monocytes % (Manual) Seg Neutrophils # Seg Neutrophils # Man PT ABG pH ABG pO2 ABG HCO3 ABG Base Excess ABG Hemoglobin Chloride Carbon Dioxide BUN Creatinine Glucose POC Glucose Calcium Phosphorus AST Alkaline Phosphatase Ammonia Total Creatine Kinase Troponin T 0.119 H* D C-Reactive Protein Albumin HDL Cholesterol Urine Creatinine 175.0 H 167.4 H Salicylates Acetaminophen 03/10/22 03/10/22 03/11/22 04:31 04:31 03:52 WBC 11.2 H RBC Hgb 10.2 L Hct 32.9 L MCV 82 L MCH 25 L MCHC 31 L RDW 16.6 H Plt Count 449 H Lymph % (Auto) [place] % (Auto) Lymph # (Auto) [place] # (Auto) Seg Neutrophils % Seg Neuts % (Manual) Lymphocytes % (Manual) Monocytes % (Manual) Seg Neutrophils # Seg Neutrophils # Man PT ABG pH ABG pO2 ABG HCO3 ABG Base Excess ABG Hemoglobin Chloride Carbon Dioxide 20 L 20 L BUN 28 H 23 H Creatinine 1.6 H 1.6 H Glucose 143 H POC Glucose Calcium Phosphorus AST Alkaline Phosphatase Ammonia Total Creatine Kinase Troponin T C-Reactive Protein Albumin HDL Cholesterol Urine Creatinine Salicylates Acetaminophen 03/12/22 03/12/22 03/13/22 04:41 04:41 04:36 WBC 19.3 H 15.2 H RBC Hgb 10.5 L 9.8 L Hct 33.0 L 31.1 L MCV 81 L 81 L MCH 26 L 25 L MCHC 31 L RDW 16.5 H 16.7 H Plt Count 456 H 506 H Lymph % (Auto) [place] % (Auto) Lymph # (Auto) [place] # (Auto) Seg Neutrophils % Seg Neuts % (Manual) Lymphocytes % (Manual) Monocytes % (Manual) Seg Neutrophils # Seg Neutrophils # Man PT ABG pH ABG pO2 ABG HCO3 ABG Base Excess ABG Hemoglobin Chloride Carbon Dioxide 20 L BUN 21 H Creatinine 1.6 H Glucose 177 H POC Glucose Calcium Phosphorus AST Alkaline Phosphatase Ammonia Total Creatine Kinase Troponin T C-Reactive Protein Albumin HDL Cholesterol Urine Creatinine Salicylates Acetaminophen 03/13/22 03/13/22 03/13/22 04:36 16:05 19:38 WBC RBC Hgb Hct MCV MCH MCHC RDW Plt Count Lymph % (Auto) [place] % (Auto) Lymph # (Auto) [place] # (Auto) Seg Neutrophils % Seg Neuts % (Manual) Lymphocytes % (Manual) Monocytes % (Manual) Seg Neutrophils # Seg Neutrophils # Man PT ABG pH 7.470 H ABG pO2 78.5 L ABG HCO3 19.9 L ABG Base Excess -3.1 L ABG Hemoglobin 8.1 L Chloride Carbon Dioxide 21 L BUN 26 H Creatinine 2.1 H Glucose 101 H POC Glucose Calcium Phosphorus AST Alkaline Phosphatase Ammonia 10.0 L Total Creatine Kinase Troponin T C-Reactive Protein Albumin 2.5 L HDL Cholesterol Urine Creatinine Salicylates Acetaminophen 03/14/22 03/14/22 03/14/22 04:51 04:51 07:33 WBC 15.4 H RBC Hgb 9.3 L Hct 29.8 L MCV 81 L MCH 25 L MCHC 31 L RDW 16.9 H Plt Count 451 H Lymph % (Auto) [place] % (Auto) Lymph # (Auto) [place] # (Auto) Seg Neutrophils % Seg Neuts % (Manual) Lymphocytes % (Manual) Monocytes % (Manual) Seg Neutrophils # Seg Neutrophils # Man PT ABG pH ABG pO2 ABG HCO3 ABG Base Excess ABG Hemoglobin Chloride 108.2 H Carbon Dioxide 19 L BUN 30 H Creatinine 2.0 H Glucose 125 H POC Glucose 106 H Calcium Phosphorus AST Alkaline Phosphatase Ammonia Total Creatine Kinase Troponin T C-Reactive Protein Albumin HDL Cholesterol Urine Creatinine Salicylates Acetaminophen 03/14/22 03/14/22 03/15/22 14:03 23:12 05:01 WBC RBC Hgb Hct MCV MCH MCHC RDW Plt Count Lymph % (Auto) [place] % (Auto) Lymph # (Auto) [place] # (Auto) Seg Neutrophils % Seg Neuts % (Manual) Lymphocytes % (Manual) Monocytes % (Manual) Seg Neutrophils # Seg Neutrophils # Man PT ABG pH ABG pO2 ABG HCO3 ABG Base Excess ABG Hemoglobin Chloride Carbon Dioxide BUN Creatinine Glucose POC Glucose 129 H 113 H 107 H Calcium Phosphorus AST Alkaline Phosphatase Ammonia Total Creatine Kinase Troponin T C-Reactive Protein Albumin HDL Cholesterol Urine Creatinine Salicylates Acetaminophen 03/15/22 03/15/22 05:19 05:19 WBC 13.9 H RBC 3.42 L Hgb 8.6 L Hct 27.3 L MCV 80 L MCH 25 L MCHC RDW 16.8 H Plt Count Lymph % (Auto) 7.9 L [place] % (Auto) Lymph # (Auto) 1.1 L [place] # (Auto) 0.9 H Seg Neutrophils % 82.2 H Seg Neuts % (Manual) Lymphocytes % (Manual) Monocytes % (Manual) Seg Neutrophils # 11.4 H Seg Neutrophils # Man PT ABG pH ABG pO2 ABG HCO3 ABG Base Excess ABG Hemoglobin Chloride 110.6 H Carbon Dioxide 20 L BUN 28 H Creatinine 1.8 H Glucose 114 H POC Glucose Calcium Phosphorus 2.20 L AST 51 H Alkaline Phosphatase 177 H Ammonia Total Creatine Kinase Troponin T C-Reactive Protein Albumin 2.2 L HDL Cholesterol Urine Creatinine Salicylates Acetaminophen Assessment and Plan 1. Encephalopathy multifactorial needs further management . 2. Agree with Current Medications . 3. Reviewed Head CT . 4. EEG in Hospital - non convulvise Seizure . Call Back with Question Dr. Goncalves
[2022-03-16] MEDS: ACYCLOVIR 400 MG in SODIUM CHLORIDE 0.9% 100 ML IV SCH ×2 (02:01→18:47)
[2022-03-16] MEDS: AMPICILLIN/NS 2 GM/100 ML 2 GM/100 ML BAG IV SCH ×2 (04:45→17:43)
[2022-03-16 05:56] LABS: Calcium 9.4 mg/dL (8.4-10.2)
[2022-03-16] MEDS: SODIUM CHLORIDE 0.9% 1000 ML 1,000 ML IV SCH (08:47)
[2022-03-16] MEDS: ENOXAPARIN 80 MG/0.8 ML INJ SUB-Q SCH ×2 (09:01→21:52)
[2022-03-16] MEDS: ASPIRIN 81 MG TAB CHEW PO SCH (09:02)
[2022-03-16] MEDS: NICOTINE 21 MG/24 HR PATCH TD SCH (09:02)
[2022-03-16] MEDS: AMIODARONE 200 MG TAB PO SCH ×2 (09:02→21:52)
[2022-03-16] MEDS: METOPROLOL TARTRATE 25 MG TAB PO SCH ×2 (09:02→21:51)
[2022-03-16] MEDS: FAMOTIDINE 20 MG TAB PO SCH (09:04)
--- NOTE | 2022-03-16 10:20 | Progress Note ---
Assessment and Plan MARIE - F/u improving BUN/Cr & continue IVF HTN - F/u on meds A Fib - F/u per Cardiology AMS - Awake & improving response. Continue f/u Subjective Date of service: 03/16/22 Principal diagnosis: NSTEMI ?Type 2 [place] Interval history: No new complaint Objective - Vital Signs Vital signs: Vital Signs - 12hr 03/15/22 03/16/22 03/16/22 23:25 05:55 08:16 Temperature 97.8 F 98.2 F 98.4 F Pulse Rate 79 98 H 72 Pulse Rate [ From Monitor] Respiratory 18 18 18 Rate Blood Pressure 138/98 147/91 159/82 O2 Sat by Pulse 90 92 94 Oximetry 03/16/22 09:06 Temperature Pulse Rate Pulse Rate [ 72 From Monitor] Respiratory 20 Rate Blood Pressure O2 Sat by Pulse 94 Oximetry - General Appearance General appearance: other (Awake & responsive) EENT: PERRL, hearing intact Neck: no JVD, supple Respiratory: Present: Other (Good air entry) Cardiology: regular, normal heart rate, S1S2 Gastrointestinal: normal, other (Soft) Neurologic: other (Moves extremities) - Lab 03/15/22 05:19 03/16/22 05:07 Most recent lab results ABG pH 7.470 pH Units (7.350-7.450) H 03/13/22 16:05 ABG pCO2 28.0 mm Hg 03/13/22 16:05 ABG pO2 78.5 mm Hg (80.0-90.0) L 03/13/22 16:05 ABG HCO3 19.9 mmol/L (20.0-26.0) L 03/13/22 16:05 ABG O2 Saturation 96.9 % (95.0-99.0) 03/13/22 16:05 Calcium 9.4 mg/dL (8.4-10.2) 03/16/22 05:07 Phosphorus 2.20 mg/dL (2.5-4.5) L 03/15/22 05:19 Magnesium 2.20 mg/dL (1.7-2.3) 03/15/22 05:19 Urine Creatinine 167.4 mg/dL (0.1-20.0) H 03/09/22 15:25 Urine Sodium 49 mmol/L 03/09/22 15:25 Medications & Allergies - Medications Allergies/Adverse Reactions: Allergies lisinopril Allergy (Verified 03/16/22 08:26) Hives Home Medications: Home Medications Medication Instructions Recorded Confirmed Last Taken Type Tamsulosin [Flomax] 0.4 mg PO QDAY #7 cap 08/28/15 03/16/22 Unknown Rx amLODIPine [Norvasc] 10 mg PO DAILY #30 tab 08/28/15 03/16/22 Unknown Rx AtorvaSTATin [Lipitor] 40 mg PO QHS 03/11/22 03/16/22 Unknown History Metoprolol Succinate [Toprol Xl] 25 mg PO BID 03/11/22 03/16/22 Unknown History Varenicline Tartrate [Chantix] 1 mg PO BID 03/11/22 03/16/22 Unknown History hydroCHLOROthiazide 12.5 mg PO DAILY 03/11/22 03/16/22 Unknown History [Hydrochlorothiazide] metHOTREXate sodium [Methotrexate] 15 mg PO 1XW 03/11/22 03/16/22 Unknown History predniSONE 10 mg PO BID 03/16/22 03/16/22 Unknown History Active Medications: Generic Name Dose Route Start Last Admin Trade Name Freq PRN Reason Stop Dose Admin Acetaminophen 650 mg 03/08/22 20:07 03/15/22 07:13 Acetaminophen 325 Mg Tab PO 650 mg Q6H PRN Administration Pain MILD(1-3)/Fever >100.5/HILTON Albuterol 2.5 mg 03/08/22 20:07 Albuterol 2.5 Mg/3 Ml Nebu IH Q3HRT PRN Shortness Of Breath Amiodarone HCl 200 mg 03/14/22 10:00 03/16/22 09:02 Amiodarone 200 Mg Tab PO 200 mg BID [facility] Administration Aspirin 81 mg 03/11/22 10:00 03/16/22 09:02 Aspirin 81 Mg Tab Chew PO 81 mg QDAY [facility] Administration Atorvastatin Calcium 40 mg 03/11/22 22:00 03/15/22 22:14 Atorvastatin 40 Mg Tab PO 40 mg QHS [facility] Administration Enoxaparin Sodium 80 mg 03/14/22 10:00 03/16/22 09:01 Enoxaparin 80 Mg/0.8 Ml Inj SUB-Q 80 mg Q12HR [facility] Administration Famotidine 20 mg 03/14/22 10:00 08/10/22 09:04 Famotidine 20 Mg Tab PO 20 mg DAILY [facility] Administration Haloperidol Lactate 5 mg 03/10/22 18:12 03/15/22 08:45 Haloperidol Lactate 5 Mg/1 Ml Inj IV 5 mg Q6H PRN Administration Agitation Cefepime HCl 1 gm in 100 mls @ 200 mls/hr 03/12/22 11:00 03/15/22 23:45 Cefepime/Ns 1 Gm/100 Ml IV 200 mls/hr Q12H [facility] Administration Protocol Acyclovir 400 mg/ Sodium 108 mls @ 100 mls/hr 03/14/22 14:00 03/16/22 02:01 Chloride IV 100 mls/hr Q12H [facility] Administration Protocol Vancomycin HCl 1 gm in 250 mls @ 125 mls/hr 03/14/22 13:00 03/15/22 14:39 Vancomycin/Ns 1 Gm/250 Ml IV 125 mls/hr Q24H [facility] Administration Protocol Sodium Chloride 1,000 mls @ 42 mls/hr 03/14/22 13:45 03/16/22 08:47 Nacl 0.9% 1000 Ml IV 42 mls/hr DIRECT [facility] Administration Ampicillin Sodium 2 gm in 100 mls @ 200 mls/hr 03/15/22 04:00 03/16/22 04:45 Ampicillin/Ns 2 Gm/100 Ml IV 200 mls/hr Q12H [facility] Administration Protocol Methotrexate 2.5 mg 03/11/22 16:00 03/11/22 17:00 Methotrexate 2.5 Mg Tab (Dose Weekly Only) PO 2.5 mg Fr [facility] Administration Metoprolol Tartrate 50 mg 03/10/22 17:49 03/16/22 09:02 Metoprolol Tartrate 25 Mg Tab PO 50 mg BID [facility] Administration Morphine Sulfate 2 mg 03/08/22 20:07 03/15/22 12:51 Morphine 4 Mg/1 Ml Inj IV 2 mg Q8H PRN Administration Pain , Severe (7-10) Nicotine 21 mg 03/10/22 10:00 03/16/22 09:02 Nicotine 21 Mg/24 Hr Patch TD 21 mg QDAY [facility] Administration Oxycodone/Acetaminophen 1 tab 03/08/22 20:07 03/11/22 21:37 Oxycodone /Acetaminophen 5-325mg Tab PO 1 tab Q6H PRN Administration Pain, Moderate (4-6) Sodium Chloride 10 ml 08/02/22 22:00 03/16/22 09:03 Sodium Chloride 0.9% 10 Ml Flush Syringe IV 10 ml BID [facility] Administration Sodium Chloride 10 ml 03/08/22 20:07 Sodium Chloride 0.9% 10 Ml Flush Syringe IV PRN PRN LINE FLUSH Tramadol HCl 50 mg 03/08/22 20:11 03/14/22 15:35 Tramadol 50 Mg Tab PO 50 mg Q6H PRN Administration Pain, Moderate (4-6)
--- NOTE | 2022-03-16 10:50 | Progress Note ---
Assessment and Plan Cultures: 03/08/2022 blood culture: No growth A/P: 67-year-old male with vascular dementia, prior CVA, BPH, hypertension, smoking history was admitted with confusion, altered mental status: #SIRS/sepsis: Has leukocytosis, thrombocytosis, low grade fever. Chest x-ray without any pneumonia, UA without any concerns for UTI. Does have an indwelling [place], some abdominal guarding. Poor historian. No concerning skin wounds. CT abdomen and pelvis without contrast did not reveal any acute abnormality. #MARIE: Renally adjust antibiotics. #Elevated troponin: Seen by cardiology, suspected type II NSTEMI. TTE shows EF of 25 to 30%. #Acute encephalopathy: CT head without acute abnormality. Also urinary tox screen positive for THC. #Tobacco abuse Recs: -continue IV ampicillin, vancomycin and acyclovir. Continue cefepime renally adjusted. -F/U LP, please send cell count with differential, protein, glucose, culture, viral PCR panel (includes HSV, VZV and enterovirus) Juanis Greco MD, FACP, [facility] ([facility] O: [phone] F: [phone] C: [phone] Subjective Date of service: 03/16/22 Principal diagnosis: NSTEMI ?Type 2 [place] Interval history: Afebrile. Seems more awake today but still confused. Has restraints on. Objective - Exam Narrative Exam: Physical Exam: Constitutional: awake, confused Head, Ears, Nose: Normocephalic, atraumatic. External ears, nose normal Eyes: Conjunctivae/corneas clear. No icterus. No ptosis. Neck: Supple, no meningeal signs Cardiovascular: S1, S2 + Respiratory: Good air entry, clear to auscultation bilaterally GI: Seems to have some abdominal guarding, [place] present, bowel sounds + Musculoskeletal: No pedal edema, no cyanosis. Skin: No rash or abscess Hem/Lymphatic: No palpable cervical or supraclavicular nodes. No lymphangitis Psych: has restraints on Neurological: awake, confused - Constitutional Vitals: Vital Signs Temp Pulse Resp BP Pulse Ox 98.4 F 72 20 159/82 94 03/16/22 08:16 03/16/22 09:06 03/16/22 09:06 03/16/22 08:16 03/16/22 09:06 Temperature -Last 24 Hours Temperature 98.4 F Temperature 98.2 F Temperature 97.8 F Temperature 98.0 F Temperature 97.8 F Temperature 97.7 F - Labs CBC & Chem 7: 03/15/22 05:19 03/16/22 05:07 Labs: Abnormal lab results 03/15/22 03/16/22 Range/Units 23:26 05:07 Chloride 109.6 H (98-107) mmol/L Carbon Dioxide 18 L (22-30) mmol/L BUN 27 H (9-20) mg/dL Creatinine 1.7 H (0.8-1.3) mg/dL Glucose 107 H (75-100) mg/dL POC Glucose 110 H (70-105) mg/dL
[2022-03-16] MEDS: CEFEPIME/NS 1 GM/100 ML 1 GM/100 ML BAG IV SCH ×2 (13:00→22:09)
--- NOTE | 2022-03-16 14:55 | Progress Note ---
Assessment and Plan Assessment and plan: Assessment and plan: This is a 67-year-old male with known past medical history of vascular dementia, cerebral atherosclerosis, BPH, gastric bypass, renal insufficency, HTN, tho racic aortic aneurysm without rupture, nicotine dependence, benign lungs nodules s/p LDCT, RA, and debility admitted for NSTEMI, AFib with RVR, and MARIE Hospital Course to Date: 03/09: Stable on RA, denied ay pain nor any discomfort at this time. SR with PACs noted on the monitor, VSS. Renal function mild improvement in renal function this am. Continue schedule BB for rate control and therapeutic Lovenox subQ. 2D echo pending and Cardiology consulted. Nephrology is also following. 03/10: More awake today but confused, remains stable on RA. ST with frequent PACs, VSS. Per cardio patient is most likely in MATs. 2D echo still pending, continue BB. Renal function is stable, continue current care per nephro. Nicotine patch added for increase cigarettes urges. Patient's brother provided contact for 3 providers who patient have seen in the past, medical records requested. 03/11: On amiodarone gtt per cardio. Remains in ST with PACs on the monitor, VSS. Plan to switch amio gtt, continue BB. Received records from patient's providers, medical history updated. Per records patient was on Wellbutrin for tobacco dependence but was switched to Chantix in August of this year and patient has not been seen by any of these providers since August 2021. Mental health/spych was also consulted for further eval and treat. 03/12: Patient seen and examined Case discussed with infectious disease concerning for possible sepsis chest x-ray reviewed no acute pneumonia UA without any concern for UTI. Patient does have some abdominal tenderness for which have ordered a CT abdomen and pelvis with oral contrast to further evaluate. We will monitor for worsening renal function as patient has a baseline CKD. Unfortunately due to this cannot get IV contrast. ID started the patient on cefepime 1 g every 12 hours while we will monitor. In the meantime patient can be transferred to telemetry continues on amiodarone p.o. for A. fib. Remains critically ill at this time. 03/13: Patient seen and examined, more lethargic today, May need NGT for Tube feeds if not improving. CTAP was unremarkable. Will start on fluids, cultures remains negative, low grade temp noted. May need LP if no improvement in am. UDS positive for THC on 03/08 No family present. Lady friend visited yesterday, not sure relationship to discuss his clinical condition. Received rispiradone but was already with similar lethargy at the time. 03/14: Patient seen and examined more awake today compared to yesterday but still not following any commands. CT head is negative.. ID broadened antibiotics and recommended lumbar puncture as there is no explanation as to the patient's a ltered mental status that has remained persistent. Again patient was given Ativan a few days ago for CT although that his mental status was still altered he was at least conversational. Lumbar puncture could not be performed today because the patient was moving around a lot. I am avoiding giving a repeat Ativan as I believe that this may have contributed to this recent change. We will await a.m. on reevaluation. NG tube has been placed patient tolerating diet through that. Will need some rehab prior to discharge when clinically improved. Creatinine remains 2.0 we will continue to monitor and trend. Nephrology input appreciated. Due to broaden antibiotics we will start on gentle hydration for renal protection purposes. Again as mentioned I updated patient's brother yesterday who will call back to let us know if the patient's longstanding girlfriend can make decisions. 03/15: Patient seen today. Off to radiology suite for LP. Will follow CSF analysis ordered. Continue tx with vancomycin/cefepime/ampicillin/acylcovir. Per RN, this AM patient was able to recite name and answer some yes/no questions. Will need reassessment tomorrow for mental status. Will need continued PT/OT. 03/16: Remains AOX 1 however is confused. Follows commands but not able to answer further line of questioning. Unclear if this is patinet's baseline as he does have a documented history of dementia in chart. PT/OT recommend MARIBELL. Will need continued assessments. Continue therapy with vanc/cefepime/ampicillin/acyclovir per ID direction. Assessment and Plan #NSTEMI (non-ST elevated myocardial infarction) #New Onset Atrial Fibrillation with RVR #Hypertension - Presented with AMS, found in AFib with RVR in the ED with elevated troponin - No report of previous Afib history, most likely new onset - Troponin downtrending - Per patient's brother patient sees a PCP in [place], however patient has been refusing to go to the doctor - s/p Chey gtt - Cardiology consulted, appreciate recommendations - Patient is ST with PACs on the monitor. Per cardio most likely MATs. Patient denied any chest pain, VSS - On Amiodarone gtt, plan to switch to PO today - Continue BB and therapeutic Lovenox - 2D Echo noted, EF 25-30% - Continue blood pressure monitor per protocol - Maintain SBP less than 160 #Acute kidney injury(MARIE) due to vasomotor nephropathy - Baseline renal function is unknown, most likely prerenal secondary to above - Renal function remains stable - Neprology consulted, appreciated recommendations - Strict intake and output - Avoid nephrotoxic medications; Renally dose medications - Monitor and replace electrolytes as needed #SIRS (Systemic Inflammatory Response Syndrome)/Sepsis - Presented with leukocytosis and tachycardia, but afebrile - X1 dose of Empiric IV antibiotic given in the ED - UA unremakarble, Blood cultures with NGTD - Patient remains afebrile, leukocytosis improved - Will continue to monitor for now - F/u on cultures #Acute Metabolic Encephalopathy #Vascular Dementia - Presented with increased weakness and decreased responsiveness over the past 1 week - Probably secondary to above - Mentation improved this am, still with periods of confusion - Verbal prompting, verbal redirection - Avoid benzodiazepine to reduce the possibility of delirium - Maintenance of sleep-wake cycle #Severe Arthritis #Debility - Supportive measures - PRN analgesia for pain control - PT/OT consulted #Nicotine Dependence #THC - Per patient he smoke at least a pack a day - Was initially on wellbutrin at home, but was switched to Chantix back in August - smoking cessation education provided. Patient verbalized understanding and agreed with the info provided - Nicotine qDay - Mental/Psych consulted for further eval #GI/DVT Prophylaxis - PPI- Pepcid - Lovenox SubQ - SCDs bilateral lower extremities while in bed, #Advance Care Planning - Disease education data, care plan, diagnoses, and prognosis were discussed with patient and patient's brother at the bedside. Patient is a FULL code. They acknowledged understanding and agreed with current care plan. History Interval history: More alert and awake today but remains confused. Hospitalist Physical - Physical exam Narrative exam: Physical Exam: Constitutional: drowsy Head, Ears, Nose: Normocephalic, atraumatic. External ears, nose normal Eyes: Conjunctivae/corneas clear. No icterus. No ptosis. Neck: Supple, no meningeal signs Cardiovascular: S1, S2 + Respiratory: Good air entry, clear to auscultation bilaterally GI: Seems to have some abdominal guarding, Arteaga present, bowel sounds + Musculoskeletal: No pedal edema, no cyanosis. Skin: No rash or abscess Hem/Lymphatic: No palpable cervical or supraclavicular nodes. No lymphangitis Psych: drowsy Neurological: drowsy - Constitutional Vitals: Temp Pulse Resp BP Pulse Ox 98.4 F 92 H 22 156/89 91 03/16/22 11:30 03/16/22 11:30 03/16/22 11:30 03/16/22 11:30 03/16/22 11:30 General appearance: Present: no acute distress, well-nourished, obese HEART Score - HEART Score Troponin: Troponin T 0.119 ng/mL (0.00-0.029) H* D 03/09/22 02:13 Results - Labs CBC & Chem 7: 03/15/22 05:19 03/16/22 05:07 Labs: Laboratory Last Values WBC 13.9 K/mm3 (4.5-11.0) H 03/15/22 05:19 RBC 3.42 M/mm3 (3.65-5.03) L 03/15/22 05:19 Hgb 8.6 gm/dl (11.8-15.2) L 03/15/22 05:19 Hct 27.3 % (35.5-45.6) L 03/15/22 05:19 MCV 80 fl (84-94) L 03/15/22 05:19 MCH 25 pg (28-32) L 03/15/22 05:19 MCHC 32 % (32-34) 03/15/22 05:19 RDW 16.8 % (13.2-15.2) H 03/15/22 05:19 Plt Count 410 K/mm3 (140-440) 03/15/22 05:19 Lymph % (Auto) 7.9 % (13.4-35.0) L 03/15/22 05:19 [place] % (Auto) 6.8 % (0.0-7.3) 03/15/22 05:19 Eos % (Auto) 2.6 % (0.0-4.3) 03/15/22 05:19 Baso % (Auto) 0.5 % (0.0-1.8) 03/15/22 05:19 Lymph # (Auto) 1.1 K/mm3 (1.2-5.4) L 03/15/22 05:19 [place] # (Auto) 0.9 K/mm3 (0.0-0.8) H 03/15/22 05:19 Eos # (Auto) 0.4 K/mm3 (0.0-0.4) 03/15/22 05:19 Baso # (Auto) 0.1 K/mm3 (0.0-0.1) 03/15/22 05:19 Add Manual Diff Complete 03/09/22 02:13 Total Counted 100 03/09/22 02:13 Seg Neutrophils % 82.2 % (40.0-70.0) H 03/15/22 05:19 Seg Neuts % (Manual) 80.0 % (40.0-70.0) H 03/09/22 02:13 Band Neutrophils % 0 % 03/09/22 02:13 Lymphocytes % (Manual) 11.0 % (13.4-35.0) L 03/09/22 02:13 Reactive Lymphs % (Man) 0 % 03/09/22 02:13 Monocytes % (Manual) 8.0 % (0.0-7.3) H 03/09/22 02:13 Eosinophils % (Manual) 1.0 % (0.0-4.3) 03/09/22 02:13 Basophils % (Manual) 0 % (0.0-1.8) 03/09/22 02:13 Metamyelocytes % 0 % 03/09/22 02:13 Myelocytes % 0 % 03/09/22 02:13 Promyelocytes % 0 % 03/09/22 02:13 Blast Cells % 0 % 03/09/22 02:13 Nucleated RBC % Not Reportable 03/09/22 02:13 Seg Neutrophils # 11.4 K/mm3 (1.8-7.7) H 03/15/22 05:19 Seg Neutrophils # Man 8.5 K/mm3 (1.8-7.7) H 03/09/22 02:13 Band Neutrophils # 0.0 K/mm3 03/09/22 02:13 Lymphocytes # (Manual) 1.2 K/mm3 (1.2-5.4) 03/09/22 02:13 Abs React Lymphs (Man) 0.0 K/mm3 03/09/22 02:13 Monocytes # (Manual) 0.8 K/mm3 (0.0-0.8) 03/09/22 02:13 Eosinophils # (Manual) 0.1 K/mm3 (0.0-0.4) 03/09/22 02:13 Basophils # (Manual) 0.0 K/mm3 (0.0-0.1) 03/09/22 02:13 Metamyelocytes # 0.0 K/mm3 03/09/22 02:13 Myelocytes # 0.0 K/mm3 03/09/22 02:13 Promyelocytes # 0.0 K/mm3 03/09/22 02:13 Blast Cells # 0.0 K/mm3 03/09/22 02:13 WBC Morphology Not Reportable 03/09/22 02:13 Hypersegmented Neuts Not Reportable 03/09/22 02:13 Hyposegmented Neuts Not Reportable 03/09/22 02:13 Hypogranular Neuts Not Reportable 03/09/22 02:13 Smudge Cells Not Reportable 03/09/22 02:13 Toxic Granulation Not Reportable 03/09/22 02:13 Toxic Vacuolation Not Reportable 03/09/22 02:13 Dohle Bodies Not Reportable 03/09/22 02:13 Pelger-Huet Anomaly Not Reportable 03/09/22 02:13 Marylin Rods Not Reportable 03/09/22 02:13 Platelet Estimate Consistent w auto 03/09/22 02:13 Clumped Platelets Not Reportable 03/09/22 02:13 Plt Clumps, EDTA Not Reportable 03/09/22 02:13 Large Platelets Not Reportable 03/09/22 02:13 Giant Platelets Not Reportable 03/09/22 02:13 Platelet Satelliting Not Reportable 03/09/22 02:13 Plt Morphology Comment Not Reportable 03/09/22 02:13 RBC Morphology Normal 03/09/22 02:13 Dimorphic RBCs Not Reportable 03/09/22 02:13 Polychromasia Not Reportable 03/09/22 02:13 Hypochromasia Not Reportable 03/09/22 02:13 Poikilocytosis Not Reportable 03/09/22 02:13 Anisocytosis Not Reportable 03/09/22 02:13 Microcytosis Not Reportable 03/09/22 02:13 Macrocytosis Not Reportable 03/09/22 02:13 Spherocytes Not Reportable 03/09/22 02:13 Pappenheimer Bodies Not Reportable 03/09/22 02:13 Sickle Cells Not Reportable 03/09/22 02:13 Target Cells Not Reportable 03/09/22 02:13 Tear Drop Cells Not Reportable 03/09/22 02:13 Ovalocytes Not Reportable 03/09/22 02:13 Helmet Cells Not Reportable 03/09/22 02:13 Alvarez-[place] Bodies Not Reportable 03/09/22 02:13 Hardin Rings Not Reportable 03/09/22 02:13 Damari Cells Not Reportable 03/09/22 02:13 Bite Cells Not Reportable 03/09/22 02:13 Crenated Cell Not Reportable 03/09/22 02:13 Elliptocytes Not Reportable 03/09/22 02:13 Acanthocytes (Spur) Not Reportable 03/09/22 02:13 Rouleaux Not Reportable 03/09/22 02:13 Hemoglobin C Crystals Not Reportable 03/09/22 02:13 Schistocytes Not Reportable 03/09/22 02:13 Malaria parasites Not Reportable 03/09/22 02:13 Cristino Bodies Not Reportable 03/09/22 02:13 Hem Pathologist Commnt No 03/09/22 02:13 PT 15.7 Sec. (12.2-14.9) H 03/08/22 12:29 INR 1.09 (0.87-1.13) 03/08/22 12:29 ABG pH 7.470 pH Units (7.350-7.450) H 03/13/22 16:05 ABG pCO2 28.0 mm Hg 03/13/22 16:05 ABG pO2 78.5 mm Hg (80.0-90.0) L 03/13/22 16:05 ABG HCO3 19.9 mmol/L (20.0-26.0) L 03/13/22 16:05 ABG O2 Saturation 96.9 % (95.0-99.0) 03/13/22 16:05 ABG O2 Content 10.9 (0.0-44) 03/13/22 16:05 ABG Base Excess -3.1 mmol/L (-2.0-3.0) L 03/13/22 16:05 ABG Hemoglobin 8.1 gm/dl (14.0-18.0) L 03/13/22 16:05 ABG Carboxyhemoglobin 1.2 % (0.0-5.0) 03/13/22 16:05 ABG Methemoglobin 0.5 % (0.0-1.5) 03/13/22 16:05 Oxyhemoglobin 95.3 % (95.0-99.0) 03/13/22 16:05 FiO2 21 % 03/13/22 16:05 Sodium 143 mmol/L (137-145) 03/16/22 05:07 Potassium 4.1 mmol/L (3.6-5.0) 03/16/22 05:07 Chloride 109.6 mmol/L (98-107) H 03/16/22 05:07 Carbon Dioxide 18 mmol/L (22-30) L 03/16/22 05:07 Anion Gap 20 mmol/L 03/16/22 05:07 BUN 27 mg/dL (9-20) H 03/16/22 05:07 Creatinine 1.7 mg/dL (0.8-1.3) H 03/16/22 05:07 Estimated GFR 49 ml/min 03/16/22 05:07 BUN/Creatinine Ratio 16 % 03/16/22 05:07 Glucose 107 mg/dL (75-100) H 03/16/22 05:07 POC Glucose 118 mg/dL (70-105) H 03/16/22 05:57 Lactic Acid 1.40 mmol/L (0.7-2.0) 03/08/22 12:29 Calcium 9.4 mg/dL (8.4-10.2) 03/16/22 05:07 Phosphorus 2.20 mg/dL (2.5-4.5) L 03/15/22 05:19 Magnesium 2.20 mg/dL (1.7-2.3) 03/15/22 05:19 Total Bilirubin 0.40 mg/dL (0.1-1.2) 03/15/22 05:19 AST 51 units/L (5-40) H 03/15/22 05:19 ALT 26 units/L (7-56) 03/15/22 05:19 Alkaline Phosphatase 177 units/L (35-129) H 03/15/22 05:19 Ammonia 10.0 umol/L (25-60) L 03/13/22 19:38 Total Creatine Kinase 53 units/L (55-170) L 03/08/22 12:29 Troponin T 0.119 ng/mL (0.00-0.029) H* D 03/09/22 02:13 C-Reactive Protein 16.20 mg/dL (0.00-1.30) H 03/08/22 12:29 Total Protein 6.5 g/dL (6.3-8.2) 03/15/22 05:19 Albumin 2.2 g/dL (3.9-5) L 03/15/22 05:19 Albumin/Globulin Ratio 0.5 % 03/15/22 05:19 Triglycerides 105 mg/dL (2-149) 03/08/22 12:29 Cholesterol 136 mg/dL (50-199) 03/08/22 12:29 LDL Cholesterol Direct 76 mg/dL (50-130) 03/08/22 12:29 HDL Cholesterol 35 mg/dL (40-59) L 03/08/22 12:29 Cholesterol/HDL Ratio 3.88 % 03/08/22 12:29 PTH Intact 45.32 pg/mL (15-65) 03/11/22 03:52 Urine Color Yellow (Yellow) 03/08/22 14:38 Urine Turbidity Clear (Clear) 03/08/22 14:38 Urine pH 6.0 (5.0-7.0) 03/08/22 14:38 Ur Specific [place] 1.015 (1.003-1.030) 03/08/22 14:38 Urine Protein 30 mg/dl mg/dL (Negative) 03/08/22 14:38 Urine Glucose (UA) Negative mg/dL (Negative) 03/08/22 14:38 Urine Ketones Negative mg/dL (Negative) 03/08/22 14:38 Urine Blood 1+ (Negative) 03/08/22 14:38 Urine Nitrite Negative (Negative) 03/08/22 14:38 Ur Reducing Substances Negative (Negative) 03/08/22 14:38 Urine Bilirubin Negative (Negative) 03/08/22 14:38 Urine Urobilinogen 0.0 mg/dL (<2.0) 03/08/22 14:38 Ur Leukocyte Esterase Negative (Negative) 03/08/22 14:38 Urine WBC (Auto) 3.0 /HPF (0.0-6.0) 03/08/22 14:38 Urine RBC (Auto) 5.0 /HPF (0.0-6.0) 03/08/22 14:38 U Epithel Cells (Auto) 3.0 /HPF (0-13.0) 03/08/22 14:38 Urine Bacteria (Auto) 1+ /HPF (Negative) 03/08/22 14:38 Hyaline Casts 2 /LPF 03/08/22 14:38 Urine Mucus 1+ /HPF 03/08/22 14:38 Urine Creatinine 167.4 mg/dL (0.1-20.0) H 03/09/22 15:25 Urine Sodium 49 mmol/L 03/09/22 15:25 Salicylates < 0.3 mg/dL (2.8-20.0) L 03/08/22 12:29 Urine Opiates Screen Negative 03/08/22 14:38 Urine Methadone Screen Negative 03/08/22 14:38 Acetaminophen 5.0 ug/mL (10.0-30.0) L 03/08/22 12:29 Ur Barbiturates Screen Negative 03/08/22 14:38 Ur Phencyclidine Scrn Negative 03/08/22 14:38 Ur Amphetamines Screen Negative 03/08/22 14:38 U Benzodiazepines Scrn Negative 03/08/22 14:38 Urine Cocaine Screen Negative 03/08/22 14:38 U Marijuana (THC) Screen Positive 03/08/22 14:38 Drugs of Abuse Note Disclamer 03/08/22 14:38 Plasma/Serum Alcohol < 0.01 % (0-0.07) 03/08/22 12:29 Arteaga/IV: Voiding Method Indwelling Catheter Active Medications - Current Medications Current Medications: Generic Name Dose Route Start Last Admin Trade Name Freq PRN Reason Stop Dose Admin Acetaminophen 650 mg 03/08/22 20:07 03/15/22 07:13 Acetaminophen 325 Mg Tab PO 650 mg Q6H PRN Administration Pain MILD(1-3)/Fever >100.5/[place]TON Albuterol 2.5 mg 03/08/22 20:07 Albuterol 2.5 Mg/3 Ml Nebu IH Q3HRT PRN Shortness Of Breath Amiodarone HCl 200 mg 03/14/22 10:00 03/16/22 09:02 Amiodarone 200 Mg Tab PO 200 mg BID FRANCESCA Administration Aspirin 81 mg 03/11/22 10:00 03/16/22 09:02 Aspirin 81 Mg Tab Chew PO 81 mg QDAY FRANCESCA Administration Atorvastatin Calcium 40 mg 03/11/22 22:00 03/15/22 22:14 Atorvastatin 40 Mg Tab PO 40 mg QHS FRANCESCA Administration Enoxaparin Sodium 80 mg 03/14/22 10:00 03/16/22 09:01 Enoxaparin 80 Mg/0.8 Ml Inj SUB-Q 80 mg Q12HR FRANCESCA Administration Famotidine 20 mg 03/14/22 10:00 03/16/22 09:04 Famotidine 20 Mg Tab PO 20 mg DAILY FRANCESCA Administration Haloperidol Lactate 5 mg 03/10/22 18:12 03/15/22 08:45 Haloperidol Lactate 5 Mg/1 Ml Inj IV 5 mg Q6H PRN Administration Agitation Cefepime HCl 1 gm in 100 mls @ 200 mls/hr 03/12/22 11:00 03/15/22 23:45 Cefepime/Ns 1 Gm/100 Ml IV 200 mls/hr Q12H FRANCESCA Administration Protocol Acyclovir 400 mg/ Sodium 108 mls @ 100 mls/hr 03/14/22 14:00 03/16/22 02:01 Chloride IV 100 mls/hr Q12H FRANCESCA Administration Protocol Vancomycin HCl 1 gm in 250 mls @ 125 mls/hr 03/14/22 13:00 03/15/22 14:39 Vancomycin/Ns 1 Gm/250 Ml IV 125 mls/hr Q24H FRANCESCA Administration Protocol Ampicillin Sodium 2 gm in 100 mls @ 200 mls/hr 03/15/22 04:00 03/16/22 04:45 Ampicillin/Ns 2 Gm/100 Ml IV 200 mls/hr Q12H FRANCESCA Administration Protocol Sodium Chloride 1,000 mls @ 100 mls/hr 03/16/22 11:00 Nacl 0.45% 1000 Ml IV DIRECT FRANCESCA Methotrexate 2.5 mg 03/11/22 16:00 03/11/22 17:00 Methotrexate 2.5 Mg Tab (Dose Weekly Only) PO 2.5 mg Fr FRANCESCA Administration Metoprolol Tartrate 50 mg 03/10/22 17:49 03/16/22 09:02 Metoprolol Tartrate 25 Mg Tab PO 50 mg BID FRANCESCA Administration Morphine Sulfate 2 mg 03/08/22 20:07 03/15/22 12:51 Morphine 4 Mg/1 Ml Inj IV 2 mg Q8H PRN Administration Pain , Severe (7-10) Nicotine 21 mg 03/10/22 10:00 03/16/22 09:02 Nicotine 21 Mg/24 Hr Patch TD 21 mg QDAY FRANCESCA Administration Oxycodone/Acetaminophen 1 tab 03/08/22 20:07 03/11/22 21:37 Oxycodone /Acetaminophen 5-325mg Tab PO 1 tab Q6H PRN Administration Pain, Moderate (4-6) Sodium Chloride 10 ml 03/08/22 22:00 03/16/22 09:03 Sodium Chloride 0.9% 10 Ml Flush Syringe IV 10 ml BID FRANCESCA Administration Sodium Chloride 10 ml 03/08/22 20:07 Sodium Chloride 0.9% 10 Ml Flush Syringe IV PRN PRN LINE FLUSH Tramadol HCl 50 mg 03/08/22 20:11 03/14/22 15:35 Tramadol 50 Mg Tab PO 50 mg Q6H PRN Administration Pain, Moderate (4-6) Nutrition/Malnutrition Assess - Dietary Evaluation Nutrition/Malnutrition Findings: Nutrition Notes Start: 03/14/22 11:02 Freq: Status: Active Protocol: Document 03/16/22 11:12 ABDIAS (Rec: 03/16/22 11:21 ABDIAS [id number]) Nutrition Notes Initial or Follow up Brief Note Current Diagnosis Acute Kidney Injury,Sepsis, Hypertension,Stroke Other Pertinent Diagnosis NSTEMI II, Atrial Fibrilation/ RVR, Metabolic Encephalopathy, SIRS, ... Current Diet TF-Nepro w/CARBSTEADY @ 50 ml/ hr (since D 03/13). Height 6 ft Weight 73 kg [place] Body Weight (kg) 80.90 BMI 21.8 Weight change and time frame No body weight change reported in 2 days. Weight Status Appropriate Subjective/Other Information RD consult for routine F/U on TF tolerance/continuation. TF continues as prescribed, no further information available at the time. Pt is on Room Air, O2 saturation @ 94%, according to Physical Assessment History notes. Percent of energy/protein needs met: Prescribed TF-Nepro w/ CARBSTEADY @ 50 ml/hr provides for energy/protein needs (2, 180 Kcal/98 g) during LOS, 96% Kcal; 111% AA. #1 Nutrition Diagnosis Inadequate oral intake Diagnosis Progress(for reassessment Continues documentation) Is patient on ventilator? No Is Patient Ambulatory and/or Out of Bed No REE-([place]-confined to bed) 1863.060 Kcal/Kg value to use for calculation 31 Approximate Energy Requirements Using 2263 kcal/Kg Calculation Used for Recommendations Kcal/kg Additional Notes Protein: 0.8-1.2 g/Kg ABW; 58- 88 g/day. Fluids: 1 ml/Kcal, or as per MD. Nutrition Intervention Nutrition Support: Continue TF-Nepro w/CARBSTEADY @ 50 ml/hr. Flush: 230 ml water Q 4 hr, or as per MD. Kcal 2,180 Protein (gm) 98 Carbohydrates (gm) 195 Fat (gm) 116 Fluid (mL) 880 Fiber (gm) 15 % RDI: 96% Kcal; 111% AA. Goal #1 Provide at least 75% of energy /protein needs through Enteral Feeding during LOS. Follow-Up By: 03/23/22 Additional Comments Continue monitoring TF tolerance and BM.
--- NOTE | 2022-03-16 15:01 | Progress Note ---
Assessment and Plan Patient is a 67-year-old male with a reported past medical history of vascular dementia, cerebral atherosclerosis, BPH, hypertension, nicotine dependence who presented to the ED yesterday for complaint of AMS x2. Altered mental status NSTEMI suspect type II MARIE Leukocytosis A. fib?/MAT Hypertension Vascular dementia Echo 03/09/2022-EF 25 to 30%. Severe global hypokinesis of left ventricle. Moderate concentric LVH. Mild diastolic dysfunction is present impaired relaxation pattern. Moderate aortic regurgitation. No pericardial effusion Plan: Conservative cardiac mgmt recommended in light of mental status. Continue to Amio 200mg PO BID If no route for PO meds and any recurrent tachyarrhythmias, can restart IV Amiodarone gtt Continue anticoagulation with Lovenox. May wish to consider to Eliquis Continue metoprolol 50mg PO BID for rate control Will hold NATALYA and ARB due to elevated creatinine Cardiac status appears otherwise stable. Upon discharge patient may follow-up with our group due to cardiomyopathy or patient may follow-up with their health services manager in 1 to 2 weeks after discharge Pt seen in conjunction with Dr. Nuñez, who agrees with the assessment and plan of care - Patient Problems (1) Multifocal atrial tachycardia Current Visit: Yes Status: Acute (2) Acute kidney injury (MARIE) with acute tubular necrosis (ATN) Current Visit: Yes Status: Acute (3) Altered mental status Current Visit: Yes Status: Acute (4) Atrial fibrillation with RVR Current Visit: Yes Status: Acute (5) CKD (chronic kidney disease) Current Visit: Yes Status: Acute (6) Cerebral atherosclerosis Current Visit: Yes Status: Chronic (7) Elevated troponin Current Visit: Yes Status: Acute (8) NSTEMI (non-ST elevated myocardial infarction) Current Visit: Yes Status: Acute (9) SIRS (systemic inflammatory response syndrome) Current Visit: Yes Status: Acute (10) Vascular dementia Current Visit: Yes Status: Chronic Qualifiers: Dementia behavioral disturbance: with behavioral disturbance Qualified Code(s): F01.51 - Vascular dementia with behavioral disturbance (11) Weakness Current Visit: Yes Status: Acute Subjective Date of service: 03/16/22 Principal diagnosis: NSTEMI ?Type 2 NE, AMS Interval history: Patient in bed in no acute distress. Patient remains with altered mental status Patient in sinus rhythm 80s on monitor Objective Vital Signs Temp Pulse Pulse Resp BP BP Pulse Ox 03/16/22 11:30 98.4 F 92 H 22 156/89 91 03/16/22 09:06 72 20 94 03/16/22 08:16 98.4 F 72 18 159/82 94 03/16/22 05:55 98.2 F 98 H 18 147/91 92 03/15/22 23:25 97.8 F 79 18 138/98 90 03/15/22 22:14 94 H 174/88 03/15/22 22:00 120 H 92 H 18 97 03/15/22 20:37 98.0 F 107 H 19 184/84 94 03/15/22 16:34 174/88 03/15/22 16:14 97.8 F 94 H 22 147/83 94 - Physical Examination General: No Apparent Distress HEENT: Positive: Normocephaly, Mucus Membranes Dry Neck: Positive: trachea midline. Negative: JVD/HJR Neuro: Positive: Other (somnolent) Abdomen: Positive: Soft Skin: Negative: Rash Extremities: Present: upper extr. pulses, warm. Absent: edema - Labs and Meds Comprehensive Metabolic Panel 03/16/22 Range/Units 05:07 Sodium 143 (137-145) mmol/L Potassium 4.1 (3.6-5.0) mmol/L Chloride 109.6 H (98-107) mmol/L Carbon Dioxide 18 L (22-30) mmol/L BUN 27 H (9-20) mg/dL Creatinine 1.7 H (0.8-1.3) mg/dL Glucose 107 H (75-100) mg/dL Calcium 9.4 (8.4-10.2) mg/dL - Imaging and Cardiology EKG: report reviewed, image reviewed Echo: report reviewed - EKG Sinus rhythms and dysrhythmias: sinus rhythm Ventricular dysrhythmias: ventricular premature com Myocardial infarction: septal NE (old age or ind, anterior NE (old age or i - Allied health notes Allied health notes reviewed: nursing
[2022-03-16] MEDS: VANCOMYCIN/NS 1 GM/250 ML 1 GM/250 ML BAG IV SCH (16:11)
[2022-03-16] MEDS: SODIUM CHLORIDE 0.45% 1000 ML 1,000 ML IV SCH (21:52)
[2022-03-17] MEDS ORDERED: dilTIAZem 25 MG/5 ML INJ IV ONE (01:00)
[2022-03-17] MEDS: ACYCLOVIR 400 MG in SODIUM CHLORIDE 0.9% 100 ML IV SCH ×2 (01:24→14:42)
[2022-03-17] MEDS: AMPICILLIN/NS 2 GM/100 ML 2 GM/100 ML BAG IV SCH ×2 (03:05→15:28)
[2022-03-17 04:54] LABS: Basophils # (Auto) 0.1 K/mm3 (0.0-0.1); Basophils % (Auto) 0.7 % (0.0-1.8); Eosinophils # (Auto) 0.4 K/mm3 (0.0-0.4); Eosinophils % (Auto) 2.5 % (0.0-4.3); Hemoglobin 8.2 gm/dl (11.8-15.2); Lymphocytes # (Auto) 1.3 K/mm3 (1.2-5.4); Lymphocytes % (Auto) 8.6 % (13.4-35.0); Mean Corpuscular HGB Conc 32 % (32-34); Mean Corpuscular Volume 79 fl (84-94); Monocytes # (Auto) 1.4 K/mm3 (0.0-0.8); Monocytes % (Auto) 9.3 % (0.0-7.3); Platelet Count 417 K/mm3 (140-440); Red Blood Count 3.28 M/mm3 (3.65-5.03); Red Cell Distribution Width 16.7 % (13.2-15.2)
[2022-03-17 05:22] LABS: Albumin 1.9 g/dL (3.9-5); Calcium 8.7 mg/dL (8.4-10.2)
--- NOTE | 2022-03-17 08:25 | Progress Note ---
Assessment and Plan Assessment and plan: Assessment and plan: This is a 67-year-old male with known past medical history of vascular dementia, cerebral atherosclerosis, BPH, gastric bypass, renal insufficency, HTN, tho racic aortic aneurysm without rupture, nicotine dependence, benign lungs nodules s/p LDCT, RA, and debility admitted for NSTEMI, AFib with RVR, and MARIE Hospital Course to Date: 03/09: Stable on RA, denied ay pain nor any discomfort at this time. SR with PACs noted on the monitor, VSS. Renal function mild improvement in renal function this am. Continue schedule BB for rate control and therapeutic Lovenox subQ. 2D echo pending and Cardiology consulted. Nephrology is also following. 03/10: More awake today but confused, remains stable on RA. ST with frequent PACs, VSS. Per cardio patient is most likely in MATs. 2D echo still pending, continue BB. Renal function is stable, continue current care per nephro. Nicotine patch added for increase cigarettes urges. Patient's brother provided contact for 3 providers who patient have seen in the past, medical records requested. 03/11: On amiodarone gtt per cardio. Remains in ST with PACs on the monitor, VSS. Plan to switch amio gtt, continue BB. Received records from patient's providers, medical history updated. Per records patient was on Wellbutrin for tobacco dependence but was switched to Chantix in August of this year and patient has not been seen by any of these providers since August 2021. Mental health/spych was also consulted for further eval and treat. 03/12: Patient seen and examined Case discussed with infectious disease concerning for possible sepsis chest x-ray reviewed no acute pneumonia UA without any concern for UTI. Patient does have some abdominal tenderness for which have ordered a CT abdomen and pelvis with oral contrast to further evaluate. We will monitor for worsening renal function as patient has a baseline CKD. Unfortunately due to this cannot get IV contrast. ID started the patient on cefepime 1 g every 12 hours while we will monitor. In the meantime patient can be transferred to telemetry continues on amiodarone p.o. for A. fib. Remains critically ill at this time. 03/13: Patient seen and examined, more lethargic today, May need NGT for Tube feeds if not improving. CTAP was unremarkable. Will start on fluids, cultures remains negative, low grade temp noted. May need LP if no improvement in am. UDS positive for THC on 03/08 No family present. Lady friend visited yesterday, not sure relationship to discuss his clinical condition. Received rispiradone but was already with similar lethargy at the time. 03/14: Patient seen and examined more awake today compared to yesterday but still not following any commands. CT head is negative.. ID broadened antibiotics and recommended lumbar puncture as there is no explanation as to the patient's a ltered mental status that has remained persistent. Again patient was given Ativan a few days ago for CT although that his mental status was still altered he was at least conversational. Lumbar puncture could not be performed today because the patient was moving around a lot. I am avoiding giving a repeat Ativan as I believe that this may have contributed to this recent change. We will await a.m. on reevaluation. NG tube has been placed patient tolerating diet through that. Will need some rehab prior to discharge when clinically improved. Creatinine remains 2.0 we will continue to monitor and trend. Nephrology input appreciated. Due to broaden antibiotics we will start on gentle hydration for renal protection purposes. Again as mentioned I updated patient's brother yesterday who will call back to let us know if the patient's longstanding girlfriend can make decisions. 03/15: Patient seen today. Off to radiology suite for LP. Will follow CSF analysis ordered. Continue tx with vancomycin/cefepime/ampicillin/acylcovir. Per RN, this AM patient was able to recite name and answer some yes/no questions. Will need reassessment tomorrow for mental status. Will need continued PT/OT. 03/16: Remains AOX 1 however is confused. Follows commands but not able to answer further line of questioning. Unclear if this is patinet's baseline as he does have a documented history of dementia in chart. PT/OT recommend MARIBELL. Will need continued assessments. Continue therapy with vanc/cefepime/ampicillin/acyclovir per ID direction. 03/17: Tachypneic and in respiratory distress this AM. Stat CXR and abg ordered. CXR appears to demonstrate patchy airspace disease in mid/upper lung field. COVID PCR sent. Lasix 40 mg IV x 1 ordered. Breathing treatment admin. Talked to patient brother Alfonzo Johnson. Updated on patient care. Per brother, patient has been declining for approximatley 1 mo prior to admission. He was becoming increasingly lethargic and confused. Patient would simply lay in bed and have difficulties completing ADL's. He was frequently incontinent in bed. Pt brother had tried to convince brother to present to ED sooner but Pt would refuse. LP unfortunately has been unable to be completed at this point due to patient aggitation/confusion and inability to lay still. Diagnostic yield of LP would likely be low at this point given his empiric therapy for meningitis. MRI brain would be useful but again given aggitation/confusion would be difficult to perform properly. When patient becomes more clinically stable, may reattempt this. EEG is still pending. Ordered workup for HIV, syphilis, HSV. May need to consider autoimmune etiology as patient does have a history of rheumatoid arthritis. may consider short course of pulse steroids in future. Will continue to follow subspecialist recommendations. Assessment and Plan #NSTEMI (non-ST elevated myocardial infarction) #New Onset Atrial Fibrillation with RVR #Hypertension - Presented with AMS, found in AFib with RVR in the ED with elevated troponin - No report of previous Afib history, most likely new onset - Troponin downtrending - Per patient's brother patient sees a PCP in [place], however patient has been refusing to go to the doctor - s/p Chey gtt - Cardiology consulted, appreciate recommendations - Patient is ST with PACs on the monitor. Per cardio most likely MATs. Patient denied any chest pain, VSS - On Amiodarone gtt, plan to switch to PO today - Continue BB and therapeutic Lovenox - 2D Echo noted, EF 25-30% - Continue blood pressure monitor per protocol - Maintain SBP less than 160 #Acute kidney injury(MARIE) due to vasomotor nephropathy - Baseline renal function is unknown, most likely prerenal secondary to above - Renal function remains stable - Neprology consulted, appreciated recommendations - Strict intake and output - Avoid nephrotoxic medications; Renally dose medications - Monitor and replace electrolytes as needed #SIRS (Systemic Inflammatory Response Syndrome)/Sepsis - Presented with leukocytosis and tachycardia, but afebrile - X1 dose of Empiric IV antibiotic given in the ED - UA unremakarble, Blood cultures with NGTD - Patient remains afebrile, leukocytosis improved - Will continue to monitor for now - F/u on cultures #Acute Metabolic Encephalopathy #Vascular Dementia - Presented with increased weakness and decreased responsiveness over the past 1 week - Probably secondary to above - Mentation improved this am, still with periods of confusion - Verbal prompting, verbal redirection - Avoid benzodiazepine to reduce the possibility of delirium - Maintenance of sleep-wake cycle #Severe Arthritis #Debility - Supportive measures - PRN analgesia for pain control - PT/OT consulted #Nicotine Dependence #THC - Per patient he smoke at least a pack a day - Was initially on wellbutrin at home, but was switched to Chantix back in August - smoking cessation education provided. Patient verbalized understanding and agreed with the info provided - Nicotine qDay - Mental/Psych consulted for further eval #GI/DVT Prophylaxis - PPI- Pepcid - Lovenox SubQ - SCDs bilateral lower extremities while in bed, #Advance Care Planning - Disease education data, care plan, diagnoses, and prognosis were discussed with patient and patient's brother at the bedside. Patient is a FULL code. They acknowledged understanding and agreed with current care plan. History Interval history: respiratory distress this AM. Stat ordered abg, cxr and covid pcr. Adivesd RN to increase supplemental O2 to 5l/min and admin lasix 40 mg IV x 1. Hospitalist Physical - Physical exam Narrative exam: Physical Exam: Constitutional: drowsy Head, Ears, Nose: Normocephalic, atraumatic. External ears, nose normal Eyes: Conjunctivae/corneas clear. No icterus. No ptosis. Neck: Supple, no meningeal signs Cardiovascular: S1, S2 + Respiratory: Good air entry, clear to auscultation bilaterally GI: Seems to have some abdominal guarding, Arteaga present, bowel sounds + Musculoskeletal: No pedal edema, no cyanosis. Skin: No rash or abscess Hem/Lymphatic: No palpable cervical or supraclavicular nodes. No lymphangitis Psych: drowsy Neurological: drowsy - Constitutional Vitals: Temp Pulse Resp BP Pulse Ox 97.3 F L 82 28 H 166/81 92 03/17/22 07:25 03/17/22 07:25 03/17/22 08:04 03/17/22 07:25 03/17/22 08:04 General appearance: Present: no acute distress, well-nourished, obese HEART Score - HEART Score Troponin: Troponin T 0.119 ng/mL (0.00-0.029) H* D 03/09/22 02:13 Results - Labs CBC & Chem 7: 03/17/22 04:12 03/17/22 04:12 Labs: Laboratory Last Values WBC 15.4 K/mm3 (4.5-11.0) H 03/17/22 04:12 RBC 3.28 M/mm3 (3.65-5.03) L 03/17/22 04:12 Hgb 8.2 gm/dl (11.8-15.2) L 03/17/22 04:12 Hct 26.0 % (35.5-45.6) L 03/17/22 04:12 MCV 79 fl (84-94) L 03/17/22 04:12 MCH 25 pg (28-32) L 03/17/22 04:12 MCHC 32 % (32-34) 03/17/22 04:12 RDW 16.7 % (13.2-15.2) H 03/17/22 04:12 Plt Count 417 K/mm3 (140-440) 03/17/22 04:12 Lymph % (Auto) 8.6 % (13.4-35.0) L 03/17/22 04:12 Nance % (Auto) 9.3 % (0.0-7.3) H 03/17/22 04:12 Eos % (Auto) 2.5 % (0.0-4.3) 03/17/22 04:12 Baso % (Auto) 0.7 % (0.0-1.8) 03/17/22 04:12 Lymph # (Auto) 1.3 K/mm3 (1.2-5.4) 03/17/22 04:12 Nance # (Auto) 1.4 K/mm3 (0.0-0.8) H 03/17/22 04:12 Eos # (Auto) 0.4 K/mm3 (0.0-0.4) 03/17/22 04:12 Baso # (Auto) 0.1 K/mm3 (0.0-0.1) 03/17/22 04:12 Add Manual Diff Complete 03/09/22 02:13 Total Counted 100 03/09/22 02:13 Seg Neutrophils % 78.9 % (40.0-70.0) H 03/17/22 04:12 Seg Neuts % (Manual) 80.0 % (40.0-70.0) H 03/09/22 02:13 Band Neutrophils % 0 % 03/09/22 02:13 Lymphocytes % (Manual) 11.0 % (13.4-35.0) L 03/09/22 02:13 Reactive Lymphs % (Man) 0 % 03/09/22 02:13 Monocytes % (Manual) 8.0 % (0.0-7.3) H 03/09/22 02:13 Eosinophils % (Manual) 1.0 % (0.0-4.3) 03/09/22 02:13 Basophils % (Manual) 0 % (0.0-1.8) 03/09/22 02:13 Metamyelocytes % 0 % 03/09/22 02:13 Myelocytes % 0 % 03/09/22 02:13 Promyelocytes % 0 % 03/09/22 02:13 Blast Cells % 0 % 03/09/22 02:13 Nucleated RBC % Not Reportable 03/09/22 02:13 Seg Neutrophils # 12.2 K/mm3 (1.8-7.7) H 03/17/22 04:12 Seg Neutrophils # Man 8.5 K/mm3 (1.8-7.7) H 03/09/22 02:13 Band Neutrophils # 0.0 K/mm3 03/09/22 02:13 Lymphocytes # (Manual) 1.2 K/mm3 (1.2-5.4) 03/09/22 02:13 Abs React Lymphs (Man) 0.0 K/mm3 03/09/22 02:13 Monocytes # (Manual) 0.8 K/mm3 (0.0-0.8) 03/09/22 02:13 Eosinophils # (Manual) 0.1 K/mm3 (0.0-0.4) 03/09/22 02:13 Basophils # (Manual) 0.0 K/mm3 (0.0-0.1) 03/09/22 02:13 Metamyelocytes # 0.0 K/mm3 03/09/22 02:13 Myelocytes # 0.0 K/mm3 03/09/22 02:13 Promyelocytes # 0.0 K/mm3 03/09/22 02:13 Blast Cells # 0.0 K/mm3 03/09/22 02:13 WBC Morphology Not Reportable 03/09/22 02:13 Hypersegmented Neuts Not Reportable 03/09/22 02:13 Hyposegmented Neuts Not Reportable 03/09/22 02:13 Hypogranular Neuts Not Reportable 03/09/22 02:13 Smudge Cells Not Reportable 03/09/22 02:13 Toxic Granulation Not Reportable 03/09/22 02:13 Toxic Vacuolation Not Reportable 03/09/22 02:13 Dohle Bodies Not Reportable 03/09/22 02:13 Pelger-Huet Anomaly Not Reportable 03/09/22 02:13 Marylin Rods Not Reportable 03/09/22 02:13 Platelet Estimate Consistent w auto 03/09/22 02:13 Clumped Platelets Not Reportable 03/09/22 02:13 Plt Clumps, EDTA Not Reportable 03/09/22 02:13 Large Platelets Not Reportable 03/09/22 02:13 Giant Platelets Not Reportable 03/09/22 02:13 Platelet Satelliting Not Reportable 03/09/22 02:13 Plt Morphology Comment Not Reportable 03/09/22 02:13 RBC Morphology Normal 03/09/22 02:13 Dimorphic RBCs Not Reportable 03/09/22 02:13 Polychromasia Not Reportable 03/09/22 02:13 Hypochromasia Not Reportable 03/09/22 02:13 Poikilocytosis Not Reportable 03/09/22 02:13 Anisocytosis Not Reportable 03/09/22 02:13 Microcytosis Not Reportable 03/09/22 02:13 Macrocytosis Not Reportable 03/09/22 02:13 Spherocytes Not Reportable 03/09/22 02:13 Pappenheimer Bodies Not Reportable 03/09/22 02:13 Sickle Cells Not Reportable 03/09/22 02:13 Target Cells Not Reportable 03/09/22 02:13 Tear Drop Cells Not Reportable 03/09/22 02:13 Ovalocytes Not Reportable 03/09/22 02:13 Helmet Cells Not Reportable 03/09/22 02:13 Alvarez-Michigamme Bodies Not Reportable 03/09/22 02:13 [place] Rings Not Reportable 03/09/22 02:13 Damari Cells Not Reportable 03/09/22 02:13 Bite Cells Not Reportable 03/09/22 02:13 Crenated Cell Not Reportable 03/09/22 02:13 Elliptocytes Not Reportable 03/09/22 02:13 Acanthocytes (Spur) Not Reportable 03/09/22 02:13 Rouleaux Not Reportable 03/09/22 02:13 Hemoglobin C Crystals Not Reportable 03/09/22 02:13 Schistocytes Not Reportable 03/09/22 02:13 Malaria parasites Not Reportable 03/09/22 02:13 Cristino Bodies Not Reportable 03/09/22 02:13 Hem Pathologist Commnt No 03/09/22 02:13 PT 15.7 Sec. (12.2-14.9) H 03/08/22 12:29 INR 1.09 (0.87-1.13) 03/08/22 12:29 ABG pH 7.470 pH Units (7.350-7.450) H 03/13/22 16:05 ABG pCO2 28.0 mm Hg 03/13/22 16:05 ABG pO2 78.5 mm Hg (80.0-90.0) L 03/13/22 16:05 ABG HCO3 19.9 mmol/L (20.0-26.0) L 03/13/22 16:05 ABG O2 Saturation 96.9 % (95.0-99.0) 03/13/22 16:05 ABG O2 Content 10.9 (0.0-44) 03/13/22 16:05 ABG Base Excess -3.1 mmol/L (-2.0-3.0) L 03/13/22 16:05 ABG Hemoglobin 8.1 gm/dl (14.0-18.0) L 03/13/22 16:05 ABG Carboxyhemoglobin 1.2 % (0.0-5.0) 03/13/22 16:05 ABG Methemoglobin 0.5 % (0.0-1.5) 03/13/22 16:05 Oxyhemoglobin 95.3 % (95.0-99.0) 03/13/22 16:05 FiO2 21 % 03/13/22 16:05 Sodium 138 mmol/L (137-145) 03/17/22 04:12 Potassium 3.7 mmol/L (3.6-5.0) 03/17/22 04:12 Chloride 109.0 mmol/L (98-107) H 03/17/22 04:12 Carbon Dioxide 16 mmol/L (22-30) L 03/17/22 04:12 Anion Gap 17 mmol/L 03/17/22 04:12 BUN 26 mg/dL (9-20) H 03/17/22 04:12 Creatinine 1.6 mg/dL (0.8-1.3) H 03/17/22 04:12 Estimated GFR 53 ml/min 03/17/22 04:12 BUN/Creatinine Ratio 16 % 03/17/22 04:12 Glucose 120 mg/dL (75-100) H 03/17/22 04:12 POC Glucose 125 mg/dL (70-105) H 03/17/22 05:08 Lactic Acid 1.40 mmol/L (0.7-2.0) 03/08/22 12:29 Calcium 8.7 mg/dL (8.4-10.2) 03/17/22 04:12 Phosphorus 2.20 mg/dL (2.5-4.5) L 03/17/22 04:12 Magnesium 2.10 mg/dL (1.7-2.3) 03/17/22 04:12 Total Bilirubin 0.40 mg/dL (0.1-1.2) 03/17/22 04:12 AST 33 units/L (5-40) 03/17/22 04:12 ALT 19 units/L (7-56) 03/17/22 04:12 Alkaline Phosphatase 174 units/L (35-129) H 03/17/22 04:12 Ammonia 10.0 umol/L (25-60) L 03/13/22 19:38 Total Creatine Kinase 53 units/L (55-170) L 03/08/22 12:29 Troponin T 0.119 ng/mL (0.00-0.029) H* D 03/09/22 02:13 C-Reactive Protein 16.20 mg/dL (0.00-1.30) H 03/08/22 12:29 Total Protein 6.6 g/dL (6.3-8.2) 03/17/22 04:12 Albumin 1.9 g/dL (3.9-5) L 03/17/22 04:12 Albumin/Globulin Ratio 0.4 % 03/17/22 04:12 Triglycerides 105 mg/dL (2-149) 03/08/22 12:29 Cholesterol 136 mg/dL (50-199) 03/08/22 12:29 LDL Cholesterol Direct 76 mg/dL (50-130) 03/08/22 12:29 HDL Cholesterol 35 mg/dL (40-59) L 03/08/22 12:29 Cholesterol/HDL Ratio 3.88 % 03/08/22 12:29 PTH Intact 45.32 pg/mL (15-65) 03/11/22 03:52 Urine Color Yellow (Yellow) 03/08/22 14:38 Urine Turbidity Clear (Clear) 03/08/22 14:38 Urine pH 6.0 (5.0-7.0) 03/08/22 14:38 Ur Specific [place] 1.015 (1.003-1.030) 03/08/22 14:38 Urine Protein 30 mg/dl mg/dL (Negative) 03/08/22 14:38 Urine Glucose (UA) Negative mg/dL (Negative) 03/08/22 14:38 Urine Ketones Negative mg/dL (Negative) 03/08/22 14:38 Urine Blood 1+ (Negative) 03/08/22 14:38 Urine Nitrite Negative (Negative) 03/08/22 14:38 Ur Reducing Substances Negative (Negative) 03/08/22 14:38 Urine Bilirubin Negative (Negative) 03/08/22 14:38 Urine Urobilinogen 0.0 mg/dL (<2.0) 03/08/22 14:38 Ur Leukocyte Esterase Negative (Negative) 03/08/22 14:38 Urine WBC (Auto) 3.0 /HPF (0.0-6.0) 03/08/22 14:38 Urine RBC (Auto) 5.0 /HPF (0.0-6.0) 03/08/22 14:38 U Epithel Cells (Auto) 3.0 /HPF (0-13.0) 03/08/22 14:38 Urine Bacteria (Auto) 1+ /HPF (Negative) 03/08/22 14:38 Hyaline Casts 2 /LPF 03/08/22 14:38 Urine Mucus 1+ /HPF 03/08/22 14:38 Urine Creatinine 167.4 mg/dL (0.1-20.0) H 03/09/22 15:25 Urine Sodium 49 mmol/L 03/09/22 15:25 Salicylates < 0.3 mg/dL (2.8-20.0) L 03/08/22 12:29 Urine Opiates Screen Negative 03/08/22 14:38 Urine Methadone Screen Negative 03/08/22 14:38 Acetaminophen 5.0 ug/mL (10.0-30.0) L 03/08/22 12:29 Ur Barbiturates Screen Negative 03/08/22 14:38 Ur Phencyclidine Scrn Negative 03/08/22 14:38 Ur Amphetamines Screen Negative 03/08/22 14:38 U Benzodiazepines Scrn Negative 03/08/22 14:38 Urine Cocaine Screen Negative 03/08/22 14:38 U Marijuana (THC) Screen Positive 03/08/22 14:38 Drugs of Abuse Note Disclamer 03/08/22 14:38 Plasma/Serum Alcohol < 0.01 % (0-0.07) 03/08/22 12:29 Arteaga/IV: Voiding Method Indwelling Catheter Active Medications - Current Medications Current Medications: Generic Name Dose Route Start Last Admin Trade Name Freq PRN Reason Stop Dose Admin Acetaminophen 650 mg 03/08/22 20:07 03/15/22 07:13 Acetaminophen 325 Mg Tab PO 650 mg Q6H PRN Administration Pain MILD(1-3)/Fever >100.5/HILTON Albuterol 2.5 mg 03/08/22 20:07 Albuterol 2.5 Mg/3 Ml Nebu IH Q3HRT PRN Shortness Of Breath Amiodarone HCl 200 mg 03/14/22 10:00 03/16/22 21:52 Amiodarone 200 Mg Tab PO 200 mg BID FRANCESCA Administration Amlodipine Besylate 10 mg 03/17/22 10:00 Amlodipine 10 Mg Tab PO DAILY FRANCESCA Aspirin 81 mg 03/11/22 10:00 03/16/22 09:02 Aspirin 81 Mg Tab Chew PO 81 mg QDAY FRANCESCA Administration Atorvastatin Calcium 40 mg 03/11/22 22:00 03/16/22 21:51 Atorvastatin 40 Mg Tab PO 40 mg QHS FRANCESCA Administration Enoxaparin Sodium 80 mg 03/14/22 10:00 03/16/22 21:52 Enoxaparin 80 Mg/0.8 Ml Inj SUB-Q 80 mg Q12HR FRANCESCA Administration Famotidine 20 mg 03/14/22 10:00 03/16/22 09:04 Famotidine 20 Mg Tab PO 20 mg DAILY FRANCESCA Administration Haloperidol Lactate 5 mg 03/10/22 18:12 03/15/22 08:45 Haloperidol Lactate 5 Mg/1 Ml Inj IV 5 mg Q6H PRN Administration Agitation Cefepime HCl 1 gm in 100 mls @ 200 mls/hr 03/12/22 11:00 03/16/22 22:09 Cefepime/Ns 1 Gm/100 Ml IV 200 mls/hr Q12H FRANCESCA Administration Protocol Acyclovir 400 mg/ Sodium 108 mls @ 100 mls/hr 03/14/22 14:00 03/17/22 01:24 Chloride IV 100 mls/hr Q12H FRANCESCA Administration Protocol Vancomycin HCl 1 gm in 250 mls @ 125 mls/hr 03/14/22 13:00 03/16/22 16:11 Vancomycin/Ns 1 Gm/250 Ml IV 125 mls/hr Q24H FRANCESCA Administration Protocol Ampicillin Sodium 2 gm in 100 mls @ 200 mls/hr 03/15/22 04:00 03/17/22 03:05 Ampicillin/Ns 2 Gm/100 Ml IV 200 mls/hr Q12H FRANCESCA Administration Protocol Sodium Chloride 1,000 mls @ 100 mls/hr 03/16/22 11:00 03/16/22 21:52 Nacl 0.45% 1000 Ml IV 100 mls/hr DIRECT FRANCESCA Administration Methotrexate 2.5 mg 03/11/22 16:00 03/11/22 17:00 Methotrexate 2.5 Mg Tab (Dose Weekly Only) PO 2.5 mg Fr FRANCESCA Administration Metoprolol Succinate 25 mg 03/17/22 10:00 Metoprolol Succinate Xl 25 Mg Tab PO BID FRANCESCA Metoprolol Tartrate 50 mg 03/10/22 17:49 03/16/22 21:51 Metoprolol Tartrate 25 Mg Tab PO 50 mg BID FRANCESCA Administration Morphine Sulfate 2 mg 03/08/22 20:07 03/15/22 12:51 Morphine 4 Mg/1 Ml Inj IV 2 mg Q8H PRN Administration Pain , Severe (7-10) Nicotine 21 mg 03/10/22 10:00 03/16/22 09:02 Nicotine 21 Mg/24 Hr Patch TD 21 mg QDAY FRANCESCA Administration Oxycodone/Acetaminophen 1 tab 03/08/22 20:07 03/11/22 21:37 Oxycodone /Acetaminophen 5-325mg Tab PO 1 tab Q6H PRN Administration Pain, Moderate (4-6) Prednisone 10 mg 03/17/22 10:00 Prednisone 10 Mg Tab PO BID FRANCESCA Sodium Chloride 10 ml 03/08/22 22:00 03/16/22 21:51 Sodium Chloride 0.9% 10 Ml Flush Syringe IV 10 ml BID FRANCESCA Administration Sodium Chloride 10 ml 03/08/22 20:07 Sodium Chloride 0.9% 10 Ml Flush Syringe IV PRN PRN LINE FLUSH Tamsulosin HCl 0.4 mg 03/17/22 10:00 Tamsulosin 0.4 Mg Cap PO QDAY FRANCESCA Tramadol HCl 50 mg 03/08/22 20:11 03/14/22 15:35 Tramadol 50 Mg Tab PO 50 mg Q6H PRN Administration Pain, Moderate (4-6) Nutrition/Malnutrition Assess - Dietary Evaluation Nutrition/Malnutrition Findings: Nutrition Notes Start: 03/14/22 11:02 Freq: Status: Active Protocol: Document 03/16/22 11:12 ABDIAS (Rec: 03/16/22 11:21 ABDIAS [id number]) Nutrition Notes Initial or Follow up Brief Note Current Diagnosis Acute Kidney Injury,Sepsis, Hypertension,Stroke Other Pertinent Diagnosis NSTEMI II, Atrial Fibrilation/ RVR, Metabolic Encephalopathy, SIRS, ... Current Diet TF-Nepro w/CARBSTEADY @ 50 ml/ hr (since D 03/13). Height 6 ft Weight 73 kg Leivasy Body Weight (kg) 80.90 BMI 21.8 Weight change and time frame No body weight change reported in 2 days. Weight Status Appropriate Subjective/Other Information RD consult for routine F/U on TF tolerance/continuation. TF continues as prescribed, no further information available at the time. Pt is on Room Air, O2 saturation @ 94%, according to Physical Assessment History notes. Percent of energy/protein needs met: Prescribed TF-Nepro w/ CARBSTEADY @ 50 ml/hr provides for energy/protein needs (2, 180 Kcal/98 g) during LOS, 96% Kcal; 111% AA. #1 Nutrition Diagnosis Inadequate oral intake Diagnosis Progress(for reassessment Continues documentation) Is patient on ventilator? No Is Patient Ambulatory and/or Out of Bed No REE-([place]-[facility] [place]-confined to bed) 1863.060 Kcal/Kg value to use for calculation 31 Approximate Energy Requirements Using 2263 kcal/Kg Calculation Used for Recommendations Kcal/kg Additional Notes Protein: 0.8-1.2 g/Kg ABW; 58- 88 g/day. Fluids: 1 ml/Kcal, or as per MD. Nutrition Intervention Nutrition Support: Continue TF-Nepro w/CARBSTEADY @ 50 ml/hr. Flush: 230 ml water Q 4 hr, or as per MD. Kcal 2,180 Protein (gm) 98 Carbohydrates (gm) 195 Fat (gm) 116 Fluid (mL) 880 Fiber (gm) 15 % RDI: 96% Kcal; 111% AA. Goal #1 Provide at least 75% of energy /protein needs through Enteral Feeding during LOS. Follow-Up By: 03/23/22 Additional Comments Continue monitoring TF tolerance and BM.
[2022-03-17] MEDS ORDERED: FUROSEMIDE 40 MG/4 ML INJ IV NR (09:20)
[2022-03-17 09:51] LABS: ABG Base Excess -5.8 mmol/L (-2.0-3.0); ABG PCO2 27.6 mm Hg; ABG PH 7.433 pH Units (7.350-7.450)
[2022-03-17 09:52] LABS: ABG Methemoglobin 0.2 % (0.0-1.5); ABG Oxygen Saturation 98.2 % (95.0-99.0)
[2022-03-17] MEDS ORDERED: METOPROLOL SUCCINATE XL 25 MG TAB PO SCH (10:00)
--- NOTE | 2022-03-17 10:10 | XRay Report ---
CHEST 1 VIEW INDICATION / CLINICAL INFORMATION: respiratory distress. FINDINGS: SUPPORT DEVICES: The esophagogastric tube terminates within the upper stomach.. HEART / MEDIASTINUM: Cardiomegaly. LUNGS / PLEURA: Patchy airspace disease throughout the mid and lower lungs Signer Name: Apolinar Zamora MD Signed: 03/17/2022 10:05 AM Workstation Name: [id number]
--- NOTE | 2022-03-17 10:58 | Progress Note ---
Assessment and Plan Cultures: 03/08/2022 blood culture: No growth A/P: 67-year-old male with vascular dementia, prior CVA, BPH, hypertension, smoking history was admitted with confusion, altered mental status: #SIRS/sepsis: Has leukocytosis, thrombocytosis, low grade fever. Chest x-ray without any pneumonia, UA without any concerns for UTI. Does have an indwelling Arte[place], some abdominal guarding. Poor historian. No concerning skin wounds. CT abdomen and pelvis without contrast did not reveal any acute abnormality. #Bilateral pneumonia, likely aspiration #MARIE: Renally adjust antibiotics. #Elevated troponin: Seen by cardiology, suspected type II NSTEMI. TTE shows EF of 25 to 30%. #Acute encephalopathy: CT head without acute abnormality. Also urinary tox screen positive for THC. #Tobacco abuse Recs: -continue IV cefepime, ampicillin, vancomycin and acyclovir. -F/U LP, please send cell count with differential, protein, glucose, culture, viral PCR panel (includes HSV, VZV and enterovirus) Juanis Greco MD, FACP, [facility] ([facility]) O: [phone] F: [phone] C: [phone] Subjective Date of service: 03/17/22 Principal diagnosis: NSTEMI ?Type 2 [place], AMS Interval history: Afebrile. More drowsy today, also got tachypneic. Got CXR and feeding tube placed. Objective - Exam Narrative Exam: Physical Exam: Constitutional: drowsy Head, Ears, Nose: Normocephalic, atraumatic. External ears, nose normal Eyes: Conjunctivae/corneas clear. No icterus. No ptosis. Neck: Supple, no meningeal signs Cardiovascular: S1, S2 + Respiratory: few rhonchi + GI: Arteaga present, bowel sounds + Musculoskeletal: No pedal edema, no cyanosis. Skin: No rash or abscess Hem/Lymphatic: No palpable cervical or supraclavicular nodes. No lymphangitis Psych: drowsy Neurological: drowsy - Constitutional Vitals: Vital Signs Temp Pulse Resp BP Pulse Ox 97.3 F L 82 28 H 166/81 86 03/17/22 07:25 03/17/22 07:25 03/17/22 08:04 03/17/22 07:25 03/17/22 08:36 Temperature -Last 24 Hours Temperature 97.3 F Temperature 97.9 F Temperature 99.0 F Temperature 98.9 F Temperature 98.5 F Temperature 98.4 F - Labs CBC & Chem 7: 03/17/22 04:12 03/17/22 04:12 Labs: Abnormal lab results 03/16/22 03/16/22 03/17/22 Range/Units 05:57 23:51 04:12 WBC 15.4 H (4.5-11.0) K/mm3 RBC 3.28 L (3.65-5.03) M/mm3 Hgb 8.2 L (11.8-15.2) gm/dl Hct 26.0 L (35.5-45.6) % MCV 79 L (84-94) fl MCH 25 L (28-32) pg RDW 16.7 H (13.2-15.2) % Lymph % (Auto) 8.6 L (13.4-35.0) % [place] % (Auto) 9.3 H (0.0-7.3) % [place] # (Auto) 1.4 H (0.0-0.8) K/mm3 Seg Neutrophils % 78.9 H (40.0-70.0) % Seg Neutrophils # 12.2 H (1.8-7.7) K/mm3 ABG pO2 (80.0-90.0) mm Hg ABG HCO3 (20.0-26.0) mmol/L ABG Base Excess (-2.0-3.0) mmol/L ABG Hemoglobin (14.0-18.0) gm/dl Chloride (98-107) mmol/L Carbon Dioxide (22-30) mmol/L BUN (9-20) mg/dL Creatinine (0.8-1.3) mg/dL Glucose (75-100) mg/dL POC Glucose 118 H 122 H (70-105) mg/dL Phosphorus (2.5-4.5) mg/dL Alkaline Phosphatase (35-129) units/L Albumin (3.9-5) g/dL 03/17/22 03/17/22 03/17/22 Range/Units 04:12 05:08 09:00 WBC (4.5-11.0) K/mm3 RBC (3.65-5.03) M/mm3 Hgb (11.8-15.2) gm/dl Hct (35.5-45.6) % MCV (84-94) fl MCH (28-32) pg RDW (13.2-15.2) % Lymph % (Auto) (13.4-35.0) % [place] % (Auto) (0.0-7.3) % [place] # (Auto) (0.0-0.8) K/mm3 Seg Neutrophils % (40.0-70.0) % Seg Neutrophils # (1.8-7.7) K/mm3 ABG pO2 61.0 L (80.0-90.0) mm Hg ABG HCO3 18.0 L (20.0-26.0) mmol/L ABG Base Excess -5.8 L (-2.0-3.0) mmol/L ABG Hemoglobin 5.3 L (14.0-18.0) gm/dl Chloride 109.0 H (98-107) mmol/L Carbon Dioxide 16 L (22-30) mmol/L BUN 26 H (9-20) mg/dL Creatinine 1.6 H (0.8-1.3) mg/dL Glucose 120 H (75-100) mg/dL POC Glucose 125 H (70-105) mg/dL Phosphorus 2.20 L (2.5-4.5) mg/dL Alkaline Phosphatase 174 H (35-129) units/L Albumin 1.9 L (3.9-5) g/dL
--- NOTE | 2022-03-17 11:09 | XRay Report ---
ABDOMEN 1 VIEW(S) INDICATION / CLINICAL INFORMATION: tube placement confirmation. COMPARISON: 03/13/2022 FINDINGS: TUBES / LINES: The feeding tube has advanced slightly since the previous exam with the distal tip in the antrum of the stomach. BOWEL GAS PATTERN: No significant abnormality. FREE AIR / EXTRALUMINAL GAS: None seen. ADDITIONAL FINDINGS: No significant additional findings. IMPRESSION: The feeding tube terminates in the distal stomach. Signer Name: Sixto Reveles Jr, MD Signed: 03/17/2022 11:05 AM Workstation Name: [id number]
[2022-03-17] MEDS: FAMOTIDINE 20 MG TAB PO SCH (11:22)
[2022-03-17] MEDS: NICOTINE 21 MG/24 HR PATCH TD SCH (11:22)
[2022-03-17] MEDS: ASPIRIN 81 MG TAB CHEW PO SCH (11:22)
[2022-03-17] MEDS: TAMSULOSIN 0.4 MG CAP PO SCH (11:22)
[2022-03-17] MEDS: CEFEPIME/NS 1 GM/100 ML 1 GM/100 ML BAG IV SCH (11:22)
[2022-03-17] MEDS: predniSONE 10 MG TAB PO SCH (11:23)
[2022-03-17] MEDS: ENOXAPARIN 80 MG/0.8 ML INJ SUB-Q SCH ×2 (11:23→21:48)
[2022-03-17] MEDS: amLODIPine 10 MG TAB PO SCH (11:23)
[2022-03-17] MEDS: AMIODARONE 200 MG TAB PO SCH (11:23)
--- NOTE | 2022-03-17 12:25 | Progress Note ---
Assessment and Plan MARIE - F/u improving BUN/Cr on IVF HTN - F/u on meds A Fib - F/u per Cardiology AMS - Improving response. Continue f/u Subjective Date of service: 03/17/22 Principal diagnosis: NSTEMI ?Type 2 [place], AMS Interval history: No new complaint Objective - Vital Signs Vital signs: Vital Signs - 12hr 03/17/22 03/17/22 03/17/22 01:23 05:05 07:10 Temperature 97.9 F Pulse Rate 88 75 97 H Respiratory 23 Rate Blood Pressure 181/94 181/100 O2 Sat by Pulse 88 Oximetry 03/17/22 03/17/22 03/17/22 07:25 08:04 08:36 Temperature 97.3 F L Pulse Rate 82 Respiratory 18 28 H Rate Blood Pressure 166/81 O2 Sat by Pulse 85 92 86 Oximetry 03/17/22 11:02 Temperature 98.3 F Pulse Rate Respiratory 21 Rate Blood Pressure 148/74 O2 Sat by Pulse Oximetry - General Appearance General appearance: other (No change) EENT: PERRL Neck: no JVD Respiratory: Present: Other (Good air entry) Cardiology: regular, S1S2 Gastrointestinal: normal Neurologic: other - Lab 03/17/22 04:12 03/17/22 04:12 Most recent lab results ABG pH 7.433 pH Units (7.350-7.450) 03/17/22 09:00 ABG pCO2 27.6 mm Hg 03/17/22 09:00 ABG pO2 61.0 mm Hg (80.0-90.0) L 03/17/22 09:00 ABG HCO3 18.0 mmol/L (20.0-26.0) L 03/17/22 09:00 ABG O2 Saturation 98.2 % (95.0-99.0) 03/17/22 09:00 Calcium 8.7 mg/dL (8.4-10.2) 03/17/22 04:12 Phosphorus 2.20 mg/dL (2.5-4.5) L 03/17/22 04:12 Magnesium 2.10 mg/dL (1.7-2.3) 03/17/22 04:12 Urine Creatinine 167.4 mg/dL (0.1-20.0) H 03/09/22 15:25 Urine Sodium 49 mmol/L 03/09/22 15:25 Medications & Allergies - Medications Allergies/Adverse Reactions: Allergies lisinopril Allergy (Verified 03/16/22 08:26) Hives Home Medications: Home Medications Medication Instructions Recorded Confirmed Last Taken Type Tamsulosin [Flomax] 0.4 mg PO QDAY #7 cap 08/28/15 03/16/22 Unknown Rx amLODIPine [Norvasc] 10 mg PO DAILY #30 tab 08/28/15 03/16/22 Unknown Rx AtorvaSTATin [Lipitor] 40 mg PO QHS 03/11/22 03/16/22 Unknown History Metoprolol Succinate [Toprol Xl] 25 mg PO BID 03/11/22 03/16/22 Unknown History Varenicline Tartrate [Chantix] 1 mg PO BID 03/11/22 03/16/22 Unknown History hydroCHLOROthiazide 12.5 mg PO DAILY 03/11/22 03/16/22 Unknown History [Hydrochlorothiazide] metHOTREXate sodium [Methotrexate] 15 mg PO 1XW 03/11/22 03/16/22 Unknown History predniSONE 10 mg PO BID 03/16/22 03/16/22 Unknown History Active Medications: Generic Name Dose Route Start Last Admin Trade Name Freq PRN Reason Stop Dose Admin Acetaminophen 650 mg 03/08/22 20:07 03/15/22 07:13 Acetaminophen 325 Mg Tab PO 650 mg Q6H PRN Administration Pain MILD(1-3)/Fever >100.5/[place]IL[place] Albuterol 2.5 mg 03/08/22 20:07 03/17/22 08:31 Albuterol 2.5 Mg/3 Ml Nebu IH 2.5 mg Q3HRT PRN Administration Shortness Of Breath Amiodarone HCl 200 mg 03/14/22 10:00 03/17/22 11:23 Amiodarone 200 Mg Tab PO 200 mg BID FRANCESCA Administration Amlodipine Besylate 10 mg 03/17/22 10:00 03/17/22 11:23 Amlodipine 10 Mg Tab PO 10 mg DAILY FRANCESCA Administration Aspirin 81 mg 03/11/22 10:00 03/17/22 11:22 Aspirin 81 Mg Tab Chew PO 81 mg QDAY FRANCESCA Administration Atorvastatin Calcium 40 mg 03/11/22 22:00 03/16/22 21:51 Atorvastatin 40 Mg Tab PO 40 mg QHS FRANCESCA Administration Enoxaparin Sodium 80 mg 03/14/22 10:00 03/17/22 11:23 Enoxaparin 80 Mg/0.8 Ml Inj SUB-Q 80 mg Q12HR FRANCESCA Administration Famotidine 20 mg 03/14/22 10:00 03/17/22 11:22 Famotidine 20 Mg Tab PO 20 mg DAILY FRANCESCA Administration Haloperidol Lactate 5 mg 03/10/22 18:12 03/15/22 08:45 Haloperidol Lactate 5 Mg/1 Ml Inj IV 5 mg Q6H PRN Administration Agitation Cefepime HCl 1 gm in 100 mls @ 200 mls/hr 03/12/22 11:00 03/17/22 11:22 Cefepime/Ns 1 Gm/100 Ml IV 200 mls/hr Q12H FRANCESCA Administration Protocol Acyclovir 400 mg/ Sodium 108 mls @ 100 mls/hr 03/14/22 14:00 03/17/22 01:24 Chloride IV 100 mls/hr Q12H FRANCESCA Administration Protocol Vancomycin HCl 1 gm in 250 mls @ 125 mls/hr 03/14/22 13:00 03/16/22 16:11 Vancomycin/Ns 1 Gm/250 Ml IV 125 mls/hr Q24H FRANCESCA Administration Protocol Ampicillin Sodium 2 gm in 100 mls @ 200 mls/hr 03/15/22 04:00 03/17/22 03:05 Ampicillin/Ns 2 Gm/100 Ml IV 200 mls/hr Q12H FRANCESCA Administration Protocol Sodium Chloride 1,000 mls @ 100 mls/hr 03/16/22 11:00 03/16/22 21:52 Nacl 0.45% 1000 Ml IV 100 mls/hr DIRECT FRANCESCA Administration Methotrexate 2.5 mg 03/11/22 16:00 03/11/22 17:00 Methotrexate 2.5 Mg Tab (Dose Weekly Only) PO 2.5 mg Fr FRANCESCA Administration Metoprolol Succinate 25 mg 03/17/22 10:00 03/17/22 11:26 Metoprolol Succinate Xl 25 Mg Tab PO 25 mg BID FRANCESCA Administration Morphine Sulfate 2 mg 03/08/22 20:07 03/15/22 12:51 Morphine 4 Mg/1 Ml Inj IV 2 mg Q8H PRN Administration Pain , Severe (7-10) Nicotine 21 mg 03/10/22 10:00 03/17/22 11:22 Nicotine 21 Mg/24 Hr Patch TD 21 mg QDAY FRANCESCA Administration Oxycodone/Acetaminophen 1 tab 03/08/22 20:07 03/11/22 21:37 Oxycodone /Acetaminophen 5-325mg Tab PO 1 tab Q6H PRN Administration Pain, Moderate (4-6) Prednisone 10 mg 03/17/22 10:00 03/17/22 11:23 Prednisone 10 Mg Tab PO 10 mg BID FRANCESCA Administration Sodium Chloride 10 ml 03/08/22 22:00 03/17/22 11:23 Sodium Chloride 0.9% 10 Ml Flush Syringe IV 10 ml BID FRANCESCA Administration Sodium Chloride 10 ml 03/08/22 20:07 Sodium Chloride 0.9% 10 Ml Flush Syringe IV PRN PRN LINE FLUSH Tamsulosin HCl 0.4 mg 03/17/22 10:00 03/17/22 11:22 Tamsulosin 0.4 Mg Cap PO 0.4 mg QDAY FRANCESCA Administration Tramadol HCl 50 mg 03/08/22 20:11 03/14/22 15:35 Tramadol 50 Mg Tab PO 50 mg Q6H PRN Administration Pain, Moderate (4-6)
[2022-03-17] MEDS: VANCOMYCIN/NS 1 GM/250 ML 1 GM/250 ML BAG IV SCH (12:27)
--- NOTE | 2022-03-17 13:45 | Progress Note ---
Assessment and Plan Patient is a 67-year-old male with a reported past medical history of vascular dementia, cerebral atherosclerosis, BPH, hypertension, nicotine dependence who presented to the ED yesterday for complaint of AMS x2. Altered mental status NSTEMI suspect type II MARIE Leukocytosis A. fib Hypertension Vascular dementia Echo 03/09/2022-EF 25 to 30%. Severe global hypokinesis of left ventricle. Moderate concentric LVH. Mild diastolic dysfunction is present impaired relaxation pattern. Moderate aortic regurgitation. No pericardial effusion Plan: HR is elevated today afib 90s-100s will increase to metoprolol 100mg PO BID for rate control Conservative cardiac mgmt recommended in light of mental status. Continue to Amio 200mg PO BID If no route for PO meds and any recurrent tachyarrhythmias, can restart IV Amiodarone gtt Continue anticoagulation with Lovenox. Will hold NATALYA and ARB due to elevated creatinine Due to mental status patient may need PEG placement Pt is a non-modifiable risk CV pt awaiting intervention for PEG. RCRI class is III (2 points, 10.1% risk of MACE). In the absence however of ischemic cardiac symptoms or acutely decompensated HF, there are no contraindications to intervention at this time from a CV standpoint. Upon discharge patient may follow-up with our group due to cardiomyopathy or patient may follow-up with their reporting process consultant in 1 to 2 weeks after discharge Pt seen in conjunction with Dr. Anaya, who agrees with the assessment and plan of care - Patient Problems (1) Acute kidney injury (MARIE) with acute tubular necrosis (ATN) Current Visit: Yes Status: Acute (2) Altered mental status Current Visit: Yes Status: Acute (3) Atrial fibrillation with RVR Current Visit: Yes Status: Acute (4) CKD (chronic kidney disease) Current Visit: Yes Status: Acute (5) Cerebral atherosclerosis Current Visit: Yes Status: Chronic (6) Elevated troponin Current Visit: Yes Status: Acute (7) NSTEMI (non-ST elevated myocardial infarction) Current Visit: Yes Status: Acute (8) SIRS (systemic inflammatory response syndrome) Current Visit: Yes Status: Acute (9) Vascular dementia Current Visit: Yes Status: Chronic Qualifiers: Dementia behavioral disturbance: with behavioral disturbance Qualified Code(s): F01.51 - Vascular dementia with behavioral disturbance (10) Weakness Current Visit: Yes Status: Acute Subjective Date of service: 03/17/22 Principal diagnosis: NSTEMI ?Type 2 [place], AMS Interval history: Patient in bed in no acute distress. Patient remains with altered mental status Afib 90s-100s Objective Vital Signs Temp Pulse Pulse Resp BP Pulse Ox 03/17/22 11:02 98.3 F 21 148/74 03/17/22 08:36 86 03/17/22 08:04 28 H 92 03/17/22 07:25 97.3 F L 82 18 166/81 85 03/17/22 07:10 97 H 03/17/22 05:05 97.9 F 75 23 181/100 88 03/17/22 01:23 88 181/94 03/16/22 23:52 99.0 F 88 21 181/94 86 03/16/22 22:00 101 H 72 20 94 03/16/22 21:51 87 177/98 03/16/22 19:43 98.9 F 87 22 177/98 92 03/16/22 16:10 98.5 F 91 H 22 166/84 90 - Physical Examination General: No Apparent Distress HEENT: Positive: Normocephaly, Mucus Membranes Dry Neck: Positive: trachea midline. Negative: JVD/HJR Cardiac: Positive: irregularly irregular Lungs: Positive: Rales (upper pruitt) Neuro: Positive: Other (somnolent) Abdomen: Positive: Soft Skin: Negative: Rash Extremities: Present: upper extr. pulses, warm. Absent: edema - Labs and Meds Cardiac Enzymes 03/17/22 Range/Units 04:12 AST 33 (5-40) units/L CBC 03/17/22 Range/Units 04:12 WBC 15.4 H (4.5-11.0) K/mm3 RBC 3.28 L (3.65-5.03) M/mm3 Hgb 8.2 L (11.8-15.2) gm/dl Hct 26.0 L (35.5-45.6) % Plt Count 417 (140-440) K/mm3 Lymph # (Auto) 1.3 (1.2-5.4) K/mm3 [place] # (Auto) 1.4 H (0.0-0.8) K/mm3 Eos # (Auto) 0.4 (0.0-0.4) K/mm3 Baso # (Auto) 0.1 (0.0-0.1) K/mm3 Comprehensive Metabolic Panel 03/17/22 Range/Units 04:12 Sodium 138 (137-145) mmol/L Potassium 3.7 (3.6-5.0) mmol/L Chloride 109.0 H (98-107) mmol/L Carbon Dioxide 16 L (22-30) mmol/L BUN 26 H (9-20) mg/dL Creatinine 1.6 H (0.8-1.3) mg/dL Glucose 120 H (75-100) mg/dL Calcium 8.7 (8.4-10.2) mg/dL AST 33 (5-40) units/L ALT 19 (7-56) units/L Alkaline Phosphatase 174 H (35-129) units/L Total Protein 6.6 (6.3-8.2) g/dL Albumin 1.9 L (3.9-5) g/dL - Imaging and Cardiology EKG: report reviewed, image reviewed Echo: report reviewed - Telemetry EKG Rhythm: Atrial Fibrillation - EKG Supraventricular dysrhythmia: atrial fibrillation Ventricular dysrhythmias: ventricular premature com Myocardial infarction: septal IA (old age or ind, anterior IA (old age or i - Allied health notes Allied health notes reviewed: nursing
[2022-03-17] MEDS: FUROSEMIDE 40 MG/4 ML INJ IV SCH (18:34)
[2022-03-18] MEDS: AMIODARONE 200 MG TAB PO SCH ×4 (01:07→21:13)
[2022-03-18] MEDS: METOPROLOL TARTRATE 100 MG TAB PO SCH ×4 (01:07→21:32)
[2022-03-18] MEDS: predniSONE 10 MG TAB PO SCH ×4 (01:08→21:32)
[2022-03-18] MEDS: ACYCLOVIR 400 MG in SODIUM CHLORIDE 0.9% 100 ML IV SCH ×2 (02:00→15:11)
[2022-03-18] MEDS: AMPICILLIN/NS 2 GM/100 ML 2 GM/100 ML BAG IV SCH ×2 (03:55→15:12)
[2022-03-18 05:47] LABS: Basophils # (Auto) 0.1 K/mm3 (0.0-0.1); Basophils % (Auto) 0.4 % (0.0-1.8); Eosinophils # (Auto) 0.1 K/mm3 (0.0-0.4); Eosinophils % (Auto) 0.8 % (0.0-4.3); Hematocrit 28.4 % (35.5-45.6); Lymphocytes # (Auto) 1.3 K/mm3 (1.2-5.4); Lymphocytes % (Auto) 7.6 % (13.4-35.0); Mean Corpuscular HGB Conc 32 % (32-34); Mean Corpuscular Volume 80 fl (84-94); Monocytes # (Auto) 1.2 K/mm3 (0.0-0.8); Monocytes % (Auto) 6.7 % (0.0-7.3); Platelet Count 426 K/mm3 (140-440); Red Blood Count 3.57 M/mm3 (3.65-5.03); Red Cell Distribution Width 17.5 % (13.2-15.2)
[2022-03-18] MEDS: FUROSEMIDE 40 MG/4 ML INJ IV SCH (05:51)
[2022-03-18 06:08] LABS: Albumin 2.1 g/dL (3.9-5)
--- NOTE | 2022-03-18 08:36 | Progress Note ---
Assessment and Plan Assessment and plan: Assessment and plan: This is a 67-year-old male with known past medical history of vascular dementia, cerebral atherosclerosis, BPH, gastric bypass, renal insufficency, HTN, tho racic aortic aneurysm without rupture, nicotine dependence, benign lungs nodules s/p LDCT, RA, and debility admitted for NSTEMI, AFib with RVR, and MARIE Hospital Course to Date: 03/09: Stable on RA, denied ay pain nor any discomfort at this time. SR with PACs noted on the monitor, VSS. Renal function mild improvement in renal function this am. Continue schedule BB for rate control and therapeutic Lovenox subQ. 2D echo pending and Cardiology consulted. Nephrology is also following. 03/10: More awake today but confused, remains stable on RA. ST with frequent PACs, VSS. Per cardio patient is most likely in MATs. 2D echo still pending, continue BB. Renal function is stable, continue current care per nephro. Nicotine patch added for increase cigarettes urges. Patient's brother provided contact for 3 providers who patient have seen in the past, medical records requested. 03/11: On amiodarone gtt per cardio. Remains in ST with PACs on the monitor, VSS. Plan to switch amio gtt, continue BB. Received records from patient's providers, medical history updated. Per records patient was on Wellbutrin for tobacco dependence but was switched to Chantix in August of this year and patient has not been seen by any of these providers since August 2021. Mental health/spych was also consulted for further eval and treat. 03/12: Patient seen and examined Case discussed with infectious disease concerning for possible sepsis chest x-ray reviewed no acute pneumonia UA without any concern for UTI. Patient does have some abdominal tenderness for which have ordered a CT abdomen and pelvis with oral contrast to further evaluate. We will monitor for worsening renal function as patient has a baseline CKD. Unfortunately due to this cannot get IV contrast. ID started the patient on cefepime 1 g every 12 hours while we will monitor. In the meantime patient can be transferred to telemetry continues on amiodarone p.o. for A. fib. Remains critically ill at this time. 03/13: Patient seen and examined, more lethargic today, May need NGT for Tube feeds if not improving. CTAP was unremarkable. Will start on fluids, cultures remains negative, low grade temp noted. May need LP if no improvement in am. UDS positive for THC on 03/08 No family present. Lady friend visited yesterday, not sure relationship to discuss his clinical condition. Received rispiradone but was already with similar lethargy at the time. 03/14: Patient seen and examined more awake today compared to yesterday but still not following any commands. CT head is negative.. ID broadened antibiotics and recommended lumbar puncture as there is no explanation as to the patient's a ltered mental status that has remained persistent. Again patient was given Ativan a few days ago for CT although that his mental status was still altered he was at least conversational. Lumbar puncture could not be performed today because the patient was moving around a lot. I am avoiding giving a repeat Ativan as I believe that this may have contributed to this recent change. We will await a.m. on reevaluation. NG tube has been placed patient tolerating diet through that. Will need some rehab prior to discharge when clinically improved. Creatinine remains 2.0 we will continue to monitor and trend. Nephrology input appreciated. Due to broaden antibiotics we will start on gentle hydration for renal protection purposes. Again as mentioned I updated patient's brother yesterday who will call back to let us know if the patient's longstanding girlfriend can make decisions. 03/15: Patient seen today. Off to radiology suite for LP. Will follow CSF analysis ordered. Continue tx with vancomycin/cefepime/ampicillin/acylcovir. Per RN, this AM patient was able to recite name and answer some yes/no questions. Will need reassessment tomorrow for mental status. Will need continued PT/OT. 03/16: Remains AOX 1 however is confused. Follows commands but not able to answer further line of questioning. Unclear if this is patinet's baseline as he does have a documented history of dementia in chart. PT/OT recommend MARIBELL. Will need continued assessments. Continue therapy with vanc/cefepime/ampicillin/acyclovir per ID direction. 03/17: Tachypneic and in respiratory distress this AM. Stat CXR and abg ordered. CXR appears to demonstrate patchy airspace disease in mid/upper lung field. COVID PCR sent. Lasix 40 mg IV x 1 ordered. Breathing treatment admin. Talked to patient brother Alfonzo Johnson. Updated on patient care. Per brother, patient has been declining for approximatley 1 mo prior to admission. He was becoming increasingly lethargic and confused. Patient would simply lay in bed and have difficulties completing ADL's. He was frequently incontinent in bed. Pt brother had tried to convince brother to present to ED sooner but Pt would refuse. LP unfortunately has been unable to be completed at this point due to patient aggitation/confusion and inability to lay still. Diagnostic yield of LP would likely be low at this point given his empiric therapy for meningitis. MRI brain would be useful but again given aggitation/confusion would be difficult to perform properly. When patient becomes more clinically stable, may reattempt this. EEG is still pending. Ordered workup for HIV, syphilis, HSV. May need to consider autoimmune etiology as patient does have a history of rheumatoid arthritis. may consider short course of pulse steroids in future. Will continue to follow subspecialist recommendations. 03/18: NG pulled overnight. However, patient is more oriented, alert this AM (able to recite name, brothers name, answer simple yes/no questioning). Plan for ST eval today. Will attempt MRI brain w/o con. Leukocytosis inc to 17K. No fevers noted overnight. Patient respiratory status improved with diuresis, however renal function worsened. Will stop lasix. Continue strict I/O monitoring. Assessment and Plan #Acute Metabolic Encephalopathy #Vascular Dementia - Presented with increased weakness and decreased responsiveness over the past 1 week - Probably secondary to above - Mentation improved this am, still with periods of confusion - Verbal prompting, verbal redirection - Avoid benzodiazepine to reduce the possibility of delirium - Maintenance of sleep-wake cycle - ST eval now that patinet is more alert - MRI brain ordered now that patient is alert #Acute hypoxic respiratory failure #Pulmonary Edema #NSTEMI (non-ST elevated myocardial infarction) #New Onset Atrial Fibrillation with RVR #Hypertension - Presented with AMS, found in AFib with RVR in the ED with elevated troponin - No report of previous Afib history, most likely new onset - Troponin downtrending - Per patient's brother patient sees a PCP in [place], however patient has been refusing to go to the doctor - s/p Cardizem gtt - Cardiology consulted, appreciate recommendations - Patient is ST with PACs on the monitor. Per cardio most likely MATs. Patient denied any chest pain, VSS - On Amiodarone gtt, plan to switch to PO today - Continue BB and therapeutic Lovenox - 2D Echo noted, EF 25-30% - Continue blood pressure monitor per protocol - Maintain SBP less than 160 - respiratory distress on 03/17, cxr demonstrated pulmonary edema. Diuresed with lasix (now d/c). maintain strict I/O. D/c IVF. hydration via NG or po if possible. #Acute kidney injury(MARIE) due to vasomotor nephropathy - Baseline renal function is unknown, most likely prerenal secondary to above - Renal function remains stable - Neprology consulted, appreciated recommendations - Strict intake and output - Avoid nephrotoxic medications; Renally dose medications - Monitor and replace electrolytes as needed #SIRS (Systemic Inflammatory Response Syndrome)/Sepsis - Presented with leukocytosis and tachycardia, but afebrile - X1 dose of Empiric IV antibiotic given in the ED - UA unremakarble, Blood cultures with NGTD - Patient remains afebrile, leukocytosis improved - Will continue to monitor for now - F/u on cultures #Severe Arthritis #Debility - Supportive measures - PRN analgesia for pain control - PT/OT consulted #Nicotine Dependence #THC - Per patient he smoke at least a pack a day - Was initially on wellbutrin at home, but was switched to Chantix back in August - smoking cessation education provided. Patient verbalized understanding and agreed with the info provided - Nicotine qDay - Mental/Psych consulted for further eval #GI/DVT Prophylaxis - PPI- Pepcid - Lovenox SubQ - SCDs bilateral lower extremities while in bed, #Advance Care Planning - Disease education data, care plan, diagnoses, and prognosis were discussed with patient and patient's brother at the bedside. Patient is a FULL code. They acknowledged understanding and agreed with current care plan. History Interval history: NG pulled overnight. However, patient is more oriented, alert this AM (able to recite name, brothers name, answer simple yes/no questioning). Hospitalist Physical - Physical exam Narrative exam: Physical Exam: Constitutional: drowsy Head, Ears, Nose: Normocephalic, atraumatic. External ears, nose normal Eyes: Conjunctivae/corneas clear. No icterus. No ptosis. Neck: Supple, no meningeal signs Cardiovascular: S1, S2 + Respiratory: Good air entry, clear to auscultation bilaterally GI: Seems to have some abdominal guarding, Arteaga present, bowel sounds + Musculoskeletal: No pedal edema, no cyanosis. Skin: No rash or abscess Hem/Lymphatic: No palpable cervical or supraclavicular nodes. No lymphangitis Psych: more alert Neurological: more alert, AOX 2 at least. Slow cognition however able to accurately give brother's name and answer simple yes/no questions. - Constitutional Vitals: Temp Pulse Resp BP Pulse Ox 98.9 F 94 H 22 169/94 100 03/18/22 04:42 03/18/22 04:42 03/18/22 04:42 03/18/22 04:42 03/18/22 04:42 General appearance: Present: no acute distress, well-nourished, obese HEART Score - HEART Score Troponin: Troponin T 0.119 ng/mL (0.00-0.029) H* D 03/09/22 02:13 Results - Labs CBC & Chem 7: 03/18/22 05:17 03/18/22 05:17 Labs: Laboratory Last Values WBC 17.7 K/mm3 (4.5-11.0) H 03/18/22 05:17 RBC 3.57 M/mm3 (3.65-5.03) L 03/18/22 05:17 Hgb 9.0 gm/dl (11.8-15.2) L 03/18/22 05:17 Hct 28.4 % (35.5-45.6) L 03/18/22 05:17 MCV 80 fl (84-94) L 03/18/22 05:17 MCH 25 pg (28-32) L 03/18/22 05:17 MCHC 32 % (32-34) 03/18/22 05:17 RDW 17.5 % (13.2-15.2) H 03/18/22 05:17 Plt Count 426 K/mm3 (140-440) 03/18/22 05:17 Lymph % (Auto) 7.6 % (13.4-35.0) L 03/18/22 05:17 [place] % (Auto) 6.7 % (0.0-7.3) 03/18/22 05:17 Eos % (Auto) 0.8 % (0.0-4.3) 03/18/22 05:17 Baso % (Auto) 0.4 % (0.0-1.8) 03/18/22 05:17 Lymph # (Auto) 1.3 K/mm3 (1.2-5.4) 03/18/22 05:17 [place] # (Auto) 1.2 K/mm3 (0.0-0.8) H 03/18/22 05:17 Eos # (Auto) 0.1 K/mm3 (0.0-0.4) 03/18/22 05:17 Baso # (Auto) 0.1 K/mm3 (0.0-0.1) 03/18/22 05:17 Add Manual Diff Complete 03/09/22 02:13 Total Counted 100 03/09/22 02:13 Seg Neutrophils % 84.5 % (40.0-70.0) H 03/18/22 05:17 Seg Neuts % (Manual) 80.0 % (40.0-70.0) H 03/09/22 02:13 Band Neutrophils % 0 % 03/09/22 02:13 Lymphocytes % (Manual) 11.0 % (13.4-35.0) L 03/09/22 02:13 Reactive Lymphs % (Man) 0 % 03/09/22 02:13 Monocytes % (Manual) 8.0 % (0.0-7.3) H 03/09/22 02:13 Eosinophils % (Manual) 1.0 % (0.0-4.3) 03/09/22 02:13 Basophils % (Manual) 0 % (0.0-1.8) 03/09/22 02:13 Metamyelocytes % 0 % 03/09/22 02:13 Myelocytes % 0 % 03/09/22 02:13 Promyelocytes % 0 % 03/09/22 02:13 Blast Cells % 0 % 03/09/22 02:13 Nucleated RBC % Not Reportable 03/09/22 02:13 Seg Neutrophils # 15.0 K/mm3 (1.8-7.7) H 03/18/22 05:17 Seg Neutrophils # Man 8.5 K/mm3 (1.8-7.7) H 03/09/22 02:13 Band Neutrophils # 0.0 K/mm3 03/09/22 02:13 Lymphocytes # (Manual) 1.2 K/mm3 (1.2-5.4) 03/09/22 02:13 Abs React Lymphs (Man) 0.0 K/mm3 03/09/22 02:13 Monocytes # (Manual) 0.8 K/mm3 (0.0-0.8) 03/09/22 02:13 Eosinophils # (Manual) 0.1 K/mm3 (0.0-0.4) 03/09/22 02:13 Basophils # (Manual) 0.0 K/mm3 (0.0-0.1) 03/09/22 02:13 Metamyelocytes # 0.0 K/mm3 03/09/22 02:13 Myelocytes # 0.0 K/mm3 03/09/22 02:13 Promyelocytes # 0.0 K/mm3 03/09/22 02:13 Blast Cells # 0.0 K/mm3 03/09/22 02:13 WBC Morphology Not Reportable 03/09/22 02:13 Hypersegmented Neuts Not Reportable 03/09/22 02:13 Hyposegmented Neuts Not Reportable 03/09/22 02:13 Hypogranular Neuts Not Reportable 03/09/22 02:13 Smudge Cells Not Reportable 03/09/22 02:13 Toxic Granulation Not Reportable 03/09/22 02:13 Toxic Vacuolation Not Reportable 03/09/22 02:13 Dohle Bodies Not Reportable 03/09/22 02:13 Pelger-Huet Anomaly Not Reportable 03/09/22 02:13 Marylin Rods Not Reportable 03/09/22 02:13 Platelet Estimate Consistent w auto 03/09/22 02:13 Clumped Platelets Not Reportable 03/09/22 02:13 Plt Clumps, EDTA Not Reportable 03/09/22 02:13 Large Platelets Not Reportable 03/09/22 02:13 Giant Platelets Not Reportable 03/09/22 02:13 Platelet Satelliting Not Reportable 03/09/22 02:13 Plt Morphology Comment Not Reportable 03/09/22 02:13 RBC Morphology Normal 03/09/22 02:13 Dimorphic RBCs Not Reportable 03/09/22 02:13 Polychromasia Not Reportable 03/09/22 02:13 Hypochromasia Not Reportable 03/09/22 02:13 Poikilocytosis Not Reportable 03/09/22 02:13 Anisocytosis Not Reportable 03/09/22 02:13 Microcytosis Not Reportable 03/09/22 02:13 Macrocytosis Not Reportable 03/09/22 02:13 Spherocytes Not Reportable 03/09/22 02:13 Pappenheimer Bodies Not Reportable 03/09/22 02:13 Sickle Cells Not Reportable 03/09/22 02:13 Target Cells Not Reportable 03/09/22 02:13 Tear Drop Cells Not Reportable 03/09/22 02:13 Ovalocytes Not Reportable 03/09/22 02:13 Helmet Cells Not Reportable 03/09/22 02:13 Alvarez-Rains Bodies Not Reportable 03/09/22 02:13 [place] Rings Not Reportable 03/09/22 02:13 Damari Cells Not Reportable 03/09/22 02:13 Bite Cells Not Reportable 03/09/22 02:13 Crenated Cell Not Reportable 03/09/22 02:13 Elliptocytes Not Reportable 03/09/22 02:13 Acanthocytes (Spur) Not Reportable 03/09/22 02:13 Rouleaux Not Reportable 03/09/22 02:13 Hemoglobin C Crystals Not Reportable 03/09/22 02:13 Schistocytes Not Reportable 03/09/22 02:13 Malaria parasites Not Reportable 03/09/22 02:13 Cristino Bodies Not Reportable 03/09/22 02:13 Hem Pathologist Commnt No 03/09/22 02:13 PT 15.7 Sec. (12.2-14.9) H 03/08/22 12:29 INR 1.09 (0.87-1.13) 03/08/22 12:29 ABG pH 7.433 pH Units (7.350-7.450) 03/17/22 09:00 ABG pCO2 27.6 mm Hg 03/17/22 09:00 ABG pO2 61.0 mm Hg (80.0-90.0) L 03/17/22 09:00 ABG HCO3 18.0 mmol/L (20.0-26.0) L 03/17/22 09:00 ABG O2 Saturation 98.2 % (95.0-99.0) 03/17/22 09:00 ABG O2 Content 10.9 (0.0-44) 03/13/22 16:05 ABG Base Excess -5.8 mmol/L (-2.0-3.0) L 03/17/22 09:00 ABG Hemoglobin 5.3 gm/dl (14.0-18.0) L 03/17/22 09:00 ABG Carboxyhemoglobin 1.7 % (0.0-5.0) 03/17/22 09:00 ABG Methemoglobin 0.2 % (0.0-1.5) 03/17/22 09:00 Oxyhemoglobin 96.4 % (95.0-99.0) 03/17/22 09:00 FiO2 32 % 03/17/22 09:00 Sodium 139 mmol/L (137-145) 03/18/22 05:17 Potassium 3.8 mmol/L (3.6-5.0) 03/18/22 05:17 Chloride 106.1 mmol/L (98-107) 03/18/22 05:17 Carbon Dioxide 18 mmol/L (22-30) L 03/18/22 05:17 Anion Gap 19 mmol/L 03/18/22 05:17 BUN 29 mg/dL (9-20) H 03/18/22 05:17 Creatinine 1.9 mg/dL (0.8-1.3) H 03/18/22 05:17 Estimated GFR 43 ml/min 03/18/22 05:17 BUN/Creatinine Ratio 15 % 03/18/22 05:17 Glucose 87 mg/dL (75-100) 03/18/22 05:17 POC Glucose 92 mg/dL (70-105) 03/18/22 00:13 Lactic Acid 1.40 mmol/L (0.7-2.0) 03/08/22 12:29 Calcium 9.0 mg/dL (8.4-10.2) 03/18/22 05:17 Phosphorus 2.20 mg/dL (2.5-4.5) L 03/17/22 04:12 Magnesium 2.10 mg/dL (1.7-2.3) 03/17/22 04:12 Total Bilirubin 0.30 mg/dL (0.1-1.2) 03/18/22 05:17 AST 36 units/L (5-40) 03/18/22 05:17 ALT 21 units/L (7-56) 03/18/22 05:17 Alkaline Phosphatase 163 units/L (35-129) H 03/18/22 05:17 Ammonia 10.0 umol/L (25-60) L 03/13/22 19:38 Total Creatine Kinase 53 units/L (55-170) L 03/08/22 12:29 Troponin T 0.119 ng/mL (0.00-0.029) H* D 03/09/22 02:13 C-Reactive Protein 16.20 mg/dL (0.00-1.30) H 03/08/22 12:29 Total Protein 7.2 g/dL (6.3-8.2) 03/18/22 05:17 Albumin 2.1 g/dL (3.9-5) L 03/18/22 05:17 Albumin/Globulin Ratio 0.4 % 03/18/22 05:17 Triglycerides 105 mg/dL (2-149) 03/08/22 12:29 Cholesterol 136 mg/dL (50-199) 03/08/22 12:29 LDL Cholesterol Direct 76 mg/dL (50-130) 03/08/22 12:29 HDL Cholesterol 35 mg/dL (40-59) L 03/08/22 12:29 Cholesterol/HDL Ratio 3.88 % 03/08/22 12:29 PTH Intact 45.32 pg/mL (15-65) 03/11/22 03:52 Urine Color Yellow (Yellow) 03/08/22 14:38 Urine Turbidity Clear (Clear) 03/08/22 14:38 Urine pH 6.0 (5.0-7.0) 03/08/22 14:38 Ur Specific Dola 1.015 (1.003-1.030) 03/08/22 14:38 Urine Protein 30 mg/dl mg/dL (Negative) 03/08/22 14:38 Urine Glucose (UA) Negative mg/dL (Negative) 03/08/22 14:38 Urine Ketones Negative mg/dL (Negative) 03/08/22 14:38 Urine Blood 1+ (Negative) 03/08/22 14:38 Urine Nitrite Negative (Negative) 03/08/22 14:38 Ur Reducing Substances Negative (Negative) 03/08/22 14:38 Urine Bilirubin Negative (Negative) 03/08/22 14:38 Urine Urobilinogen 0.0 mg/dL (<2.0) 03/08/22 14:38 Ur Leukocyte Esterase Negative (Negative) 03/08/22 14:38 Urine WBC (Auto) 3.0 /HPF (0.0-6.0) 03/08/22 14:38 Urine RBC (Auto) 5.0 /HPF (0.0-6.0) 03/08/22 14:38 U Epithel Cells (Auto) 3.0 /HPF (0-13.0) 03/08/22 14:38 Urine Bacteria (Auto) 1+ /HPF (Negative) 03/08/22 14:38 Hyaline Casts 2 /LPF 03/08/22 14:38 Urine Mucus 1+ /HPF 03/08/22 14:38 Urine Creatinine 167.4 mg/dL (0.1-20.0) H 03/09/22 15:25 Urine Sodium 49 mmol/L 03/09/22 15:25 Salicylates < 0.3 mg/dL (2.8-20.0) L 03/08/22 12:29 Urine Opiates Screen Negative 03/08/22 14:38 Urine Methadone Screen Negative 03/08/22 14:38 Acetaminophen 5.0 ug/mL (10.0-30.0) L 03/08/22 12:29 Ur Barbiturates Screen Negative 03/08/22 14:38 Ur Phencyclidine Scrn Negative 03/08/22 14:38 Ur Amphetamines Screen Negative 03/08/22 14:38 U Benzodiazepines Scrn Negative 03/08/22 14:38 Urine Cocaine Screen Negative 03/08/22 14:38 U Marijuana (THC) Screen Positive 03/08/22 14:38 Drugs of Abuse Note Disclamer 03/08/22 14:38 Plasma/Serum Alcohol < 0.01 % (0-0.07) 03/08/22 12:29 Syphilis IgG/IgM Ab Nonreactive (NonReactive) 03/17/22 13:16 Coronavirus (PCR) Negative (Negative) 03/17/22 09:54 HIV 1&2 Antibody Rapid Non react (Non React) 03/17/22 13:16 HIV P24 Antigen Non react (Non React) 03/17/22 13:16 Arteaga/IV: Voiding Method Indwelling Catheter Active Medications - Current Medications Current Medications: Generic Name Dose Route Start Last Admin Trade Name Freq PRN Reason Stop Dose Admin Acetaminophen 650 mg 03/08/22 20:07 03/15/22 07:13 Acetaminophen 325 Mg Tab PO 650 mg Q6H PRN Administration Pain MILD(1-3)/Fever >100.5/HILTON Albuterol 2.5 mg 03/08/22 20:07 03/17/22 08:31 Albuterol 2.5 Mg/3 Ml Nebu IH 2.5 mg Q3HRT PRN Administration Shortness Of Breath Amiodarone HCl 200 mg 03/14/22 10:00 03/18/22 01:07 Amiodarone 200 Mg Tab PO Not Given BID FRANCESCA Amlodipine Besylate 10 mg 03/17/22 10:00 03/17/22 11:23 Amlodipine 10 Mg Tab PO 10 mg DAILY FRANCESCA Administration Aspirin 81 mg 03/11/22 10:00 03/17/22 11:22 Aspirin 81 Mg Tab Chew PO 81 mg QDAY FRANCESCA Administration Atorvastatin Calcium 40 mg 03/11/22 22:00 03/18/22 01:07 Atorvastatin 40 Mg Tab PO Not Given QHS FRANCESCA Enoxaparin Sodium 80 mg 03/14/22 10:00 03/17/22 21:48 Enoxaparin 80 Mg/0.8 Ml Inj SUB-Q 80 mg Q12HR FRANCESCA Administration Famotidine 20 mg 03/14/22 10:00 03/17/22 11:22 Famotidine 20 Mg Tab PO 20 mg DAILY FRANCESCA Administration Haloperidol Lactate 5 mg 03/10/22 18:12 03/15/22 08:45 Haloperidol Lactate 5 Mg/1 Ml Inj IV 5 mg Q6H PRN Administration Agitation Cefepime HCl 1 gm in 100 mls @ 200 mls/hr 03/12/22 11:00 03/18/22 00:00 Cefepime/Ns 1 Gm/100 Ml IV 200 mls/hr Q12H FRANCESCA Administration Protocol Acyclovir 400 mg/ Sodium 108 mls @ 100 mls/hr 03/14/22 14:00 03/18/22 02:00 Chloride IV 100 mls/hr Q12H FRANCESCA Administration Protocol Vancomycin HCl 1 gm in 250 mls @ 125 mls/hr 03/14/22 13:00 03/17/22 12:27 Vancomycin/Ns 1 Gm/250 Ml IV 125 mls/hr Q24H FRANCESCA Administration Protocol Ampicillin Sodium 2 gm in 100 mls @ 200 mls/hr 03/15/22 04:00 03/18/22 03:55 Ampicillin/Ns 2 Gm/100 Ml IV 200 mls/hr Q12H FRANCESCA Administration Protocol Sodium Chloride 1,000 mls @ 100 mls/hr 03/16/22 11:00 03/16/22 21:52 Nacl 0.45% 1000 Ml IV 100 mls/hr DIRECT FRANCESCA Administration Methotrexate 2.5 mg 03/11/22 16:00 03/11/22 17:00 Methotrexate 2.5 Mg Tab (Dose Weekly Only) PO 2.5 mg Fr FRANCESCA Administration Metoprolol Tartrate 100 mg 03/17/22 22:00 03/18/22 01:07 Metoprolol Tartrate 100 Mg Tab PO Not Given BID FRANCESCA Morphine Sulfate 2 mg 03/08/22 20:07 03/15/22 12:51 Morphine 4 Mg/1 Ml Inj IV 2 mg Q8H PRN Administration Pain , Severe (7-10) Nicotine 21 mg 03/10/22 10:00 03/17/22 11:22 Nicotine 21 Mg/24 Hr Patch TD 21 mg QDAY FRANCESCA Administration Oxycodone/Acetaminophen 1 tab 03/08/22 20:07 03/11/22 21:37 Oxycodone /Acetaminophen 5-325mg Tab PO 1 tab Q6H PRN Administration Pain, Moderate (4-6) Prednisone 10 mg 03/17/22 10:00 03/18/22 01:08 Prednisone 10 Mg Tab PO Not Given BID FRANCESCA Sodium Chloride 10 ml 03/08/22 22:00 03/17/22 21:49 Sodium Chloride 0.9% 10 Ml Flush Syringe IV 10 ml BID FRANCESCA Administration Sodium Chloride 10 ml 03/08/22 20:07 Sodium Chloride 0.9% 10 Ml Flush Syringe IV PRN PRN LINE FLUSH Tamsulosin HCl 0.4 mg 03/17/22 10:00 03/17/22 11:22 Tamsulosin 0.4 Mg Cap PO 0.4 mg QDAY FRANCESCA Administration Tramadol HCl 50 mg 03/08/22 20:11 03/14/22 15:35 Tramadol 50 Mg Tab PO 50 mg Q6H PRN Administration Pain, Moderate (4-6) Nutrition/Malnutrition Assess - Dietary Evaluation Nutrition/Malnutrition Findings: Nutrition Notes Start: 03/14/22 11:02 Freq: Status: Active Protocol: Document 03/16/22 11:12 ABDIAS (Rec: 03/16/22 11:21 ABDIAS [id number]) Nutrition Notes Initial or Follow up Brief Note Current Diagnosis Acute Kidney Injury,Sepsis, Hypertension,Stroke Other Pertinent Diagnosis NSTEMI II, Atrial Fibrilation/ RVR, Metabolic Encephalopathy, SIRS, ... Current Diet TF-Nepro w/CARBSTEADY @ 50 ml/ hr (since D 03/13). Height 6 ft Weight 73 kg [place] Body Weight (kg) 80.90 BMI 21.8 Weight change and time frame No body weight change reported in 2 days. Weight Status Appropriate Subjective/Other Information RD consult for routine F/U on TF tolerance/continuation. TF continues as prescribed, no further information available at the time. Pt is on Room Air, O2 saturation @ 94%, according to Physical Assessment History notes. Percent of energy/protein needs met: Prescribed TF-Nepro w/ CARBSTEADY @ 50 ml/hr provides for energy/protein needs (2, 180 Kcal/98 g) during LOS, 96% Kcal; 111% AA. #1 Nutrition Diagnosis Inadequate oral intake Diagnosis Progress(for reassessment Continues documentation) Is patient on ventilator? No Is Patient Ambulatory and/or Out of Bed No REE-([facility]-confined to bed) 1863.060 Kcal/Kg value to use for calculation 31 Approximate Energy Requirements Using 2263 kcal/Kg Calculation Used for Recommendations Kcal/kg Additional Notes Protein: 0.8-1.2 g/Kg ABW; 58- 88 g/day. Fluids: 1 ml/Kcal, or as per MD. Nutrition Intervention Nutrition Support: Continue TF-Nepro w/CARBSTEADY @ 50 ml/hr. Flush: 230 ml water Q 4 hr, or as per MD. Kcal 2,180 Protein (gm) 98 Carbohydrates (gm) 195 Fat (gm) 116 Fluid (mL) 880 Fiber (gm) 15 % RDI: 96% Kcal; 111% AA. Goal #1 Provide at least 75% of energy /protein needs through Enteral Feeding during LOS. Follow-Up By: 03/23/22 Additional Comments Continue monitoring TF tolerance and BM.
--- NOTE | 2022-03-18 10:12 | Progress Note ---
Assessment and Plan Cultures: 03/08/2022 blood culture: No growth A/P: 67-year-old male with vascular dementia, prior CVA, BPH, hypertension, smoking history was admitted with confusion, altered mental status: #SIRS/sepsis: Has leukocytosis, thrombocytosis, low grade fever. Chest x-ray without any pneumonia, UA without any concerns for UTI. Does have an indwelling Arte[place], some abdominal guarding. Poor historian. No concerning skin wounds. CT abdomen and pelvis without contrast did not reveal any acute abnormality. #Bilateral pneumonia, likely aspiration pneumonia #MARIE: Renally adjust antibiotics. #Elevated troponin: Seen by cardiology, suspected type II NSTEMI. TTE shows EF of 25 to 30%. #Acute encephalopathy: CT head without acute abnormality. Also urinary tox screen positive for THC. #Tobacco abuse Recs: -continue IV cefepime, ampicillin, vancomycin and acyclovir. -F/U LP, please send cell count with differential, protein, glucose, culture, viral PCR panel (includes HSV, VZV and enterovirus) and possibly MRI. D/W Dr. Bernal, hopefully can be done with anesthesiology. Juanis Greco MD, FACP, [facility] ([facility]) O: [phone] F: [phone] C: [phone] Subjective Date of service: 03/18/22 Principal diagnosis: NSTEMI ?Type 2 OH, AMS Interval history: Seems more awake today, answering basic questions but still somewhat confused. Objective - Exam Narrative Exam: Physical Exam: Constitutional: awake, alert, confused Head, Ears, Nose: Normocephalic, atraumatic. External ears, nose normal Eyes: Conjunctivae/corneas clear. No icterus. No ptosis. Neck: Supple, no meningeal signs Cardiovascular: S1, S2 + Respiratory: diffuse b/l rhonchi + GI: Arteaga present, bowel sounds + Musculoskeletal: No pedal edema, no cyanosis. Skin: No rash or abscess Hem/Lymphatic: No palpable cervical or supraclavicular nodes. No lymphangitis Psych: awake, calm Neurological: awake, alert, calm - Constitutional Vitals: Vital Signs Temp Pulse Resp BP Pulse Ox 98.9 F 94 H 22 169/94 100 03/18/22 04:42 03/18/22 04:42 03/18/22 04:42 03/18/22 04:42 03/18/22 04:42 Temperature -Last 24 Hours Temperature 98.9 F Temperature 99.4 F Temperature 98.0 F Temperature 98.2 F Temperature 98.3 F - Labs CBC & Chem 7: 03/18/22 05:17 03/18/22 05:17 Labs: Abnormal lab results 03/17/22 03/18/22 03/18/22 Range/Units 17:01 05:17 05:17 WBC 17.7 H (4.5-11.0) K/mm3 RBC 3.57 L (3.65-5.03) M/mm3 Hgb 9.0 L (11.8-15.2) gm/dl Hct 28.4 L (35.5-45.6) % MCV 80 L (84-94) fl MCH 25 L (28-32) pg RDW 17.5 H (13.2-15.2) % Lymph % (Auto) 7.6 L (13.4-35.0) % [place] # (Auto) 1.2 H (0.0-0.8) K/mm3 Seg Neutrophils % 84.5 H (40.0-70.0) % Seg Neutrophils # 15.0 H (1.8-7.7) K/mm3 Carbon Dioxide 18 L (22-30) mmol/L BUN 29 H (9-20) mg/dL Creatinine 1.9 H (0.8-1.3) mg/dL POC Glucose 124 H (70-105) mg/dL Alkaline Phosphatase 163 H (35-129) units/L Albumin 2.1 L (3.9-5) g/dL
[2022-03-18] MEDS: ENOXAPARIN 80 MG/0.8 ML INJ SUB-Q SCH ×2 (10:37→21:12)
[2022-03-18] MEDS: MORPHINE 4 MG/1 ML INJ IV PRN (10:37)
[2022-03-18] MEDS: SODIUM CHLORIDE 0.45% 1000 ML 1,000 ML IV SCH (10:37)
[2022-03-18] MEDS ORDERED: dilTIAZem 25 MG/5 ML INJ IV ONE (10:52)
[2022-03-18] MEDS ORDERED: dilTIAZem/D5W 100 MG/100 ML BAG IV SCH (11:00)
[2022-03-18] MEDS: CEFEPIME/NS 1 GM/100 ML 1 GM/100 ML BAG IV SCH ×3 (11:09→22:41)
[2022-03-18] MEDS ORDERED: DEXTROSE 50% IN WATER (25GM) 50 ML SYRINGE IV ONE (12:00)
[2022-03-18] MEDS: VANCOMYCIN/NS 1 GM/250 ML 1 GM/250 ML BAG IV SCH (12:12)
[2022-03-18] MEDS: FAMOTIDINE 20 MG TAB PO SCH ×2 (12:14→18:44)
[2022-03-18] MEDS: amLODIPine 10 MG TAB PO SCH (12:15)
[2022-03-18] MEDS: TAMSULOSIN 0.4 MG CAP PO SCH ×2 (12:15→18:44)
[2022-03-18] MEDS: ASPIRIN 81 MG TAB CHEW PO SCH ×2 (12:15→18:44)
[2022-03-18] MEDS ORDERED: hydrALAZINE 20 MG/1 ML INJ IV PRN (12:35)
[2022-03-18] MEDS: HALOPERIDOL LACTATE 5 MG/1 ML INJ IV PRN (13:17)
--- NOTE | 2022-03-18 13:50 | Progress Note ---
Assessment and Plan MARIE - Slight worsening BUN/Cr, advise to hold further diuretics & continue IVF. Note CXR with patchy airspace dz more consistent with Pneumonia & O2sat 97-100% HTN - Adjust meds for better control A Fib - F/u per Cardiology AMS - Improving response. Continue f/u Subjective Date of service: 03/18/22 Principal diagnosis: NSTEMI ?Type 2 SC, AMS Interval history: No new complaint Objective - Vital Signs Vital signs: Vital Signs - 12hr 03/18/22 03/18/22 04:42 10:25 Temperature 98.9 F Pulse Rate 94 H Respiratory 22 20 Rate Blood Pressure 169/94 172/100 O2 Sat by Pulse 100 Oximetry - General Appearance General appearance: other (Awake & responsive) EENT: PERRL Neck: no JVD Respiratory: Present: Other (Good air entry) Cardiology: regular, S1S2 Gastrointestinal: normal - Lab 03/18/22 05:17 03/18/22 05:17 Most recent lab results ABG pH 7.433 pH Units (7.350-7.450) 03/17/22 09:00 ABG pCO2 27.6 mm Hg 03/17/22 09:00 ABG pO2 61.0 mm Hg (80.0-90.0) L 03/17/22 09:00 ABG HCO3 18.0 mmol/L (20.0-26.0) L 03/17/22 09:00 ABG O2 Saturation 98.2 % (95.0-99.0) 03/17/22 09:00 Calcium 9.0 mg/dL (8.4-10.2) 03/18/22 05:17 Phosphorus 2.20 mg/dL (2.5-4.5) L 03/17/22 04:12 Magnesium 2.10 mg/dL (1.7-2.3) 03/17/22 04:12 Urine Creatinine 167.4 mg/dL (0.1-20.0) H 03/09/22 15:25 Urine Sodium 49 mmol/L 03/09/22 15:25 Medications & Allergies - Medications Allergies/Adverse Reactions: Allergies lisinopril Allergy (Verified 03/16/22 08:26) Hives Home Medications: Home Medications Medication Instructions Recorded Confirmed Last Taken Type Tamsulosin [Flomax] 0.4 mg PO QDAY #7 cap 08/28/15 03/16/22 Unknown Rx amLODIPine [Norvasc] 10 mg PO DAILY #30 tab 08/28/15 03/16/22 Unknown Rx AtorvaSTATin [Lipitor] 40 mg PO QHS 03/11/22 03/16/22 Unknown History Metoprolol Succinate [Toprol Xl] 25 mg PO BID 03/11/22 03/16/22 Unknown History Varenicline Tartrate [Chantix] 1 mg PO BID 03/11/22 03/16/22 Unknown History hydroCHLOROthiazide 12.5 mg PO DAILY 03/11/22 03/16/22 Unknown History [Hydrochlorothiazide] metHOTREXate sodium [Methotrexate] 15 mg PO 1XW 03/11/22 03/16/22 Unknown History predniSONE 10 mg PO BID 03/16/22 03/16/22 Unknown History Active Medications: Generic Name Dose Route Start Last Admin Trade Name Freq PRN Reason Stop Dose Admin Acetaminophen 650 mg 03/08/22 20:07 03/15/22 07:13 Acetaminophen 325 Mg Tab PO 650 mg Q6H PRN Administration Pain MILD(1-3)/Fever >100.5/HILTON Albuterol 2.5 mg 03/08/22 20:07 03/17/22 08:31 Albuterol 2.5 Mg/3 Ml Nebu IH 2.5 mg Q3HRT PRN Administration Shortness Of Breath Amiodarone HCl 200 mg 03/14/22 10:00 03/18/22 12:15 Amiodarone 200 Mg Tab PO Not Given BID [facility] Amlodipine Besylate 10 mg 03/17/22 10:00 03/18/22 12:15 Amlodipine 10 Mg Tab PO Not Given DAILY [facility] Aspirin 81 mg 03/11/22 10:00 03/18/22 12:15 Aspirin 81 Mg Tab Chew PO Not Given QDAY [facility] Atorvastatin Calcium 40 mg 03/11/22 22:00 03/18/22 01:07 Atorvastatin 40 Mg Tab PO Not Given QHS [facility] Enoxaparin Sodium 80 mg 03/14/22 10:00 03/18/22 10:37 Enoxaparin 80 Mg/0.8 Ml Inj SUB-Q 80 mg Q12HR FRANCESCA Administration Famotidine 20 mg 03/14/22 10:00 03/18/22 12:14 Famotidine 20 Mg Tab PO Not Given DAILY FRANCESCA Haloperidol Lactate 5 mg 03/10/22 18:12 03/18/22 13:17 Haloperidol Lactate 5 Mg/1 Ml Inj IV 5 mg Q6H PRN Administration Agitation Hydralazine HCl 10 mg 03/18/22 12:35 03/18/22 13:18 Hydralazine 20 Mg/1 Ml Inj IV 10 mg Q6HR PRN Administration Blood Pressure Cefepime HCl 1 gm in 100 mls @ 200 mls/hr 03/12/22 11:00 03/18/22 11:09 Cefepime/Ns 1 Gm/100 Ml IV 200 mls/hr Q12H FRANCESCA Administration Protocol Acyclovir 400 mg/ Sodium 108 mls @ 100 mls/hr 03/14/22 14:00 03/18/22 02:00 Chloride IV 100 mls/hr Q12H FRANCESCA Administration Protocol Vancomycin HCl 1 gm in 250 mls @ 125 mls/hr 03/14/22 13:00 03/18/22 12:12 Vancomycin/Ns 1 Gm/250 Ml IV 125 mls/hr Q24H FRANCESCA Administration Protocol Ampicillin Sodium 2 gm in 100 mls @ 200 mls/hr 03/15/22 04:00 03/18/22 03:55 Ampicillin/Ns 2 Gm/100 Ml IV 200 mls/hr Q12H FRANCESCA Administration Protocol Sodium Chloride 1,000 mls @ 100 mls/hr 03/16/22 11:00 03/18/22 10:37 Nacl 0.45% 1000 Ml IV 25 mls/hr DIRECT FRANCESCA Administration Methotrexate 2.5 mg 03/11/22 16:00 03/11/22 17:00 Methotrexate 2.5 Mg Tab (Dose Weekly Only) PO 2.5 mg Fr FRANCESCA Administration Metoprolol Tartrate 100 mg 03/17/22 22:00 03/18/22 12:14 Metoprolol Tartrate 100 Mg Tab PO Not Given BID FRANCESCA Morphine Sulfate 2 mg 03/08/22 20:07 03/18/22 10:37 Morphine 4 Mg/1 Ml Inj IV 2 mg Q8H PRN Administration Pain , Severe (7-10) Nicotine 21 mg 03/10/22 10:00 03/17/22 11:22 Nicotine 21 Mg/24 Hr Patch TD 21 mg QDAY FRANCESCA Administration Oxycodone/Acetaminophen 1 tab 03/08/22 20:07 03/11/22 21:37 Oxycodone /Acetaminophen 5-325mg Tab PO 1 tab Q6H PRN Administration Pain, Moderate (4-6) Prednisone 10 mg 03/17/22 10:00 03/18/22 12:15 Prednisone 10 Mg Tab PO Not Given BID [facility] Quetiapine Fumarate 50 mg 03/18/22 22:00 Quetiapine 25 Mg Tab PO QHS FRANCESCA Sodium Chloride 10 ml 03/08/22 22:00 03/18/22 11:09 Sodium Chloride 0.9% 10 Ml Flush Syringe IV 10 ml BID FRANCESCA Administration Sodium Chloride 10 ml 03/08/22 20:07 Sodium Chloride 0.9% 10 Ml Flush Syringe IV PRN PRN LINE FLUSH Tamsulosin HCl 0.4 mg 03/17/22 10:00 03/18/22 12:15 Tamsulosin 0.4 Mg Cap PO Not Given QDAY FRANCESCA Tramadol HCl 50 mg 03/08/22 20:11 03/14/22 15:35 Tramadol 50 Mg Tab PO 50 mg Q6H PRN Administration Pain, Moderate (4-6)
--- NOTE | 2022-03-18 13:53 | Progress Note ---
Assessment and Plan Patient is a 67-year-old male with a reported past medical history of vascular dementia, cerebral atherosclerosis, BPH, hypertension, nicotine dependence who presented to the ED yesterday for complaint of AMS x2. Altered mental status NSTEMI suspect type II MARIE Leukocytosis A. fib Hypertension Vascular dementia Echo 03/09/2022-EF 25 to 30%. Severe global hypokinesis of left ventricle. Moderate concentric LVH. Mild diastolic dysfunction is present impaired relaxation pattern. Moderate aortic regurgitation. No pericardial effusion Plan: Per conversation with staff patient is pending MRI today Patient reviewed patient A. fib 80s to 90s Patient has removed NG tube and currently not receiving any p.o. meds however remained rate controlled. Continue to Amio 200mg PO BID,and metoprolol 100mg PO BID if able to get PO meds If no route for PO meds and any recurrent tachyarrhythmias, can restart IV Amiodarone gtt Continue anticoagulation with Lovenox. Will hold NATALYA and ARB due to elevated creatinine Conservative cardiac mgmt recommended in light of mental status. Due to mental status patient may need PEG placement Pt is a non-modifiable risk CV pt awaiting intervention for PEG. RCRI class is III (2 points, 10.1% risk of MACE). In the absence however of ischemic cardiac symptoms or acutely decompensated HF, there are no contraindications to intervention at this time from a CV standpoint. Pt seen in conjunction with Dr. Anaya, who agrees with the assessment and plan of care - Patient Problems (1) Acute kidney injury (MARIE) with acute tubular necrosis (ATN) Current Visit: Yes Status: Acute (2) Altered mental status Current Visit: Yes Status: Acute (3) Atrial fibrillation with RVR Current Visit: Yes Status: Acute (4) CKD (chronic kidney disease) Current Visit: Yes Status: Acute (5) Cerebral atherosclerosis Current Visit: Yes Status: Chronic (6) Elevated troponin Current Visit: Yes Status: Acute (7) NSTEMI (non-ST elevated myocardial infarction) Current Visit: Yes Status: Acute (8) SIRS (systemic inflammatory response syndrome) Current Visit: Yes Status: Acute (9) Vascular dementia Current Visit: Yes Status: Chronic Qualifiers: Qualified Code(s): F01.51 - Vascular dementia with behavioral disturbance (10) Weakness Current Visit: Yes Status: Acute Subjective Date of service: 03/18/22 Principal diagnosis: NSTEMI ?Type 2 MT, AMS Interval history: Patient in bed in no acute distress. Patient remains with altered mental status. Patient with NG tube Afib 80s to 90s Objective Vital Signs Temp Pulse Pulse Resp BP Pulse Ox 03/18/22 10:25 20 172/100 03/18/22 04:42 98.9 F 94 H 22 169/94 100 03/18/22 00:09 99.4 F 93 H 28 H 163/95 100 03/17/22 22:20 97 03/17/22 22:00 90 97 H 22 94 03/17/22 19:53 98.0 F 96 H 40 H 139/84 100 03/17/22 16:11 98.2 F 99 H 24 129/80 99 03/17/22 15:16 97 H 22 94 - Physical Examination General: No Apparent Distress HEENT: Positive: Normocephaly, Mucus Membranes Dry Neck: Positive: trachea midline. Negative: JVD/HJR Cardiac: Positive: irregularly irregular Lungs: Positive: Rales Neuro: Positive: Other (somnolent) Abdomen: Positive: Soft Skin: Negative: Rash Extremities: Present: upper extr. pulses, warm. Absent: edema - Labs and Meds Cardiac Enzymes 03/18/22 Range/Units 05:17 AST 36 (5-40) units/L CBC 03/18/22 Range/Units 05:17 WBC 17.7 H (4.5-11.0) K/mm3 RBC 3.57 L (3.65-5.03) M/mm3 Hgb 9.0 L (11.8-15.2) gm/dl Hct 28.4 L (35.5-45.6) % Plt Count 426 (140-440) K/mm3 Lymph # (Auto) 1.3 (1.2-5.4) K/mm3 [place] # (Auto) 1.2 H (0.0-0.8) K/mm3 Eos # (Auto) 0.1 (0.0-0.4) K/mm3 Baso # (Auto) 0.1 (0.0-0.1) K/mm3 Comprehensive Metabolic Panel 03/18/22 Range/Units 05:17 Sodium 139 (137-145) mmol/L Potassium 3.8 (3.6-5.0) mmol/L Chloride 106.1 (98-107) mmol/L Carbon Dioxide 18 L (22-30) mmol/L BUN 29 H (9-20) mg/dL Creatinine 1.9 H (0.8-1.3) mg/dL Glucose 87 (75-100) mg/dL Calcium 9.0 (8.4-10.2) mg/dL AST 36 (5-40) units/L ALT 21 (7-56) units/L Alkaline Phosphatase 163 H (35-129) units/L Total Protein 7.2 (6.3-8.2) g/dL Albumin 2.1 L (3.9-5) g/dL - Imaging and Cardiology EKG: report reviewed, image reviewed Echo: report reviewed - Telemetry EKG Rhythm: Atrial Fibrillation - EKG Supraventricular dysrhythmia: atrial fibrillation Ventricular dysrhythmias: ventricular premature com Myocardial infarction: septal MT (old age or ind, anterior MT (old age or i - Allied health notes Allied health notes reviewed: nursing
[2022-03-18] MEDS: NICOTINE 21 MG/24 HR PATCH TD SCH (15:10)
[2022-03-18] MEDS: metHOTREXate 2.5 MG TAB (DOSE WEEKLY ONLY) PO SCH ×2 (15:12→18:45)
--- NOTE | 2022-03-18 16:57 | Magnetic Resonance Report ---
. MRI BRAIN 03/18/2022 INDICATION / CLINICAL INFORMATION: encephalopathy, CONFUSION. TECHNIQUE: Multiplanar, multisequence MR images of the brain were obtained. COMPARISON: None available. FINDINGS: BRAIN / INTRACRANIAL CONTENTS: Unenhanced MR images of the brain demonstrate no evidence of acute abn ormality. Ventricles and sulci are prominent in size, consistent with prominent diffuse cerebral atrophy, more than is typically seen in a patient of this age. Extensive chronic white matter T2 weighted hyperintensities are present in the periventricular and de ep white matter of cerebral hemispheres. There is no evidence of acute ischemic injury, hemorrhage, or mass. There are no abnormal extra-axial fluid collections. EXTRACRANIAL: Unremarkable CRANIOCERVICAL JUNCTION: No significant abnormality. VASCULAR FLOW-VOIDS: No significant abnormality. IMPRESSION: No acute abnormality. Extensive atrophy and microangiopathic signal change. Signer Name: Dom Ruiz MD Signed: 03/18/2022 4:52 PM Workstation Name: [id number]
--- NOTE | 2022-03-18 18:29 | XRay Report ---
ABDOMEN 1 VIEW 03/18/2022 INDICATION / CLINICAL INFORMATION: dophoff placement. COMPARISON: 03/17/2022 FINDINGS: TUBES / LINES: Enteric tube terminates within the stomach. BOWEL GAS PATTERN: No significant abnormality. FREE AIR / EXTRALUMINAL GAS: None seen. ADDITIONAL FINDINGS: No significant additional findings. IMPRESSION: 1. Weighted enteric tube terminates within the stomach. Signer Name: Gautam Singletary DO Signed: 03/18/2022 6:25 PM Workstation Name: [id number]
[2022-03-18] MEDS: DOXAZOSIN 4 MG TAB PO SCH (18:44)
[2022-03-18] MEDS: QUEtiapine 25 MG TAB PO SCH (21:32)
[2022-03-19] MEDS: ACYCLOVIR 400 MG in SODIUM CHLORIDE 0.9% 100 ML IV SCH (01:27)
[2022-03-19] MEDS: SODIUM CHLORIDE 0.45% 1000 ML 1,000 ML IV SCH ×2 (02:29→16:15)
[2022-03-19] MEDS: AMPICILLIN/NS 2 GM/100 ML 2 GM/100 ML BAG IV SCH (03:04)
[2022-03-19 07:33] LABS: Calcium 8.6 mg/dL (8.4-10.2)
[2022-03-19] MEDS: NICOTINE 21 MG/24 HR PATCH TD SCH (10:24)
[2022-03-19] MEDS: DOXAZOSIN 4 MG TAB PO SCH (10:25)
[2022-03-19] MEDS: FAMOTIDINE 20 MG TAB PO SCH (10:25)
[2022-03-19] MEDS: METOPROLOL TARTRATE 100 MG TAB PO SCH ×2 (10:25→21:06)
[2022-03-19] MEDS: predniSONE 10 MG TAB PO SCH ×2 (10:25→21:07)
[2022-03-19] MEDS: ENOXAPARIN 80 MG/0.8 ML INJ SUB-Q SCH ×2 (10:25→21:07)
[2022-03-19] MEDS: ASPIRIN 81 MG TAB CHEW PO SCH (10:26)
[2022-03-19] MEDS: TAMSULOSIN 0.4 MG CAP PO SCH (10:26)
[2022-03-19] MEDS: AMIODARONE 200 MG TAB PO SCH ×2 (10:26→21:06)
[2022-03-19] MEDS: amLODIPine 10 MG TAB PO SCH (10:27)
--- NOTE | 2022-03-19 12:40 | Progress Note ---
Assessment and Plan Echo 03/09/2022 - EF 25 to 30%. Severe global hypokinesis of left ventricle. Moderate concentric LVH. Mild diastolic dysfunction is present, impaired relaxation pattern. Moderate aortic regurgitation. No pericardial effusion. Conservative cardiac mgmt recommended in light of mental status. Continue anticoagulation with SQ Lovenox. Continue PO Amiodarone 200mg BID and Lopressor 100mg BID. Discontinue Amlodipine to allow for titration of BB as needed. ACEI/ARB/ARNI deferred due to renal fxn. If no route for PO meds and any recurrent tachyarrhythmias, can restart IV Amiodarone gtt. No cardiac contraindications to proceeding with PEG placement if warranted. Pt is moderate-high risk (non-modifiable) from a cardiac standpoint. RCRI Class III (2 points, 10.1% 30-day risk of MACE). Pt seen in conjunction with Dr. Pyle, who agrees with the assessment and plan of care. - Patient Problems (1) Altered mental status Current Visit: Yes Status: Acute (2) Sepsis Current Visit: Yes Status: Acute (3) PNA (pneumonia) Current Visit: Yes Status: Acute Qualifiers: Pneumonia type: aspiration pneumonia (4) NSTEMI (non-ST elevated myocardial infarction) Current Visit: Yes Status: Acute Plan to address problem: ?TYPE 2 (5) Cardiomyopathy Current Visit: Yes Status: Acute (6) PAF (paroxysmal atrial fibrillation) Current Visit: Yes Status: Acute (7) Multifocal atrial tachycardia Current Visit: Yes Status: Acute (8) MARIE (acute kidney injury) Current Visit: Yes Status: Acute (9) Anemia Current Visit: Yes Status: Acute (10) Cerebral atherosclerosis Current Visit: Yes Status: Chronic (11) Vascular dementia Current Visit: Yes Status: Chronic Qualifiers: Dementia behavioral disturbance: with behavioral disturbance Qualified Code(s): F01.51 - Vascular dementia with behavioral disturbance (12) BPH (benign prostatic hyperplasia) Current Visit: Yes Status: Chronic (13) Nicotine dependence Current Visit: Yes Status: Chronic Subjective Date of service: 03/19/22 Principal diagnosis: NSTEMI ?Type 2 PA Interval history: Resting in bed, appears comfortable. Dobhoff replaced yesterday. AF 80-90s on tele (intermittently up to 100-110s). Objective Vital Signs Temp Pulse Resp BP Pulse Ox 03/19/22 10:45 97 03/19/22 10:25 119 H 03/19/22 08:03 97.3 F L 93 H 119/75 99 03/19/22 04:42 97.6 F 22 136/73 03/18/22 21:26 93 H 99 03/18/22 21:17 98 03/18/22 20:00 97.3 F L 18 99 03/18/22 19:58 20 112/68 03/18/22 15:58 98.1 F 97 H 17 161/84 95 - Physical Examination General: No Apparent Distress HEENT: Positive: Normocephaly, Mucus Membranes Dry Neck: Negative: JVD/HJR Cardiac: Positive: irregularly irregular Lungs: Positive: Decreased Breath Sounds Neuro: Positive: Other (somnolent) Abdomen: Positive: Soft Skin: Negative: Rash Extremities: Present: warm. Absent: edema - Labs and Meds Comprehensive Metabolic Panel 03/19/22 Range/Units 05:47 Sodium 141 (137-145) mmol/L Potassium 3.9 (3.6-5.0) mmol/L Chloride 106.2 (98-107) mmol/L Carbon Dioxide 19 L (22-30) mmol/L BUN 31 H (9-20) mg/dL Creatinine 1.9 H (0.8-1.3) mg/dL Glucose 148 H (75-100) mg/dL Calcium 8.6 (8.4-10.2) mg/dL - Imaging and Cardiology EKG: report reviewed, image reviewed Echo: report reviewed - Telemetry EKG Rhythm: Atrial Fibrillation - EKG Sinus rhythms and dysrhythmias: sinus rhythm Ventricular dysrhythmias: ventricular premature com Myocardial infarction: septal PA (old age or ind, anterior PA (old age or i - Allied health notes Allied health notes reviewed: nursing
--- NOTE | 2022-03-19 13:21 | Progress Note ---
Assessment and Plan MARIE - Continue IVF & f/u BUN/Cr. Still hold further diuretics HTN - Improved control, f/u on current meds A Fib - F/u per Cardiology AMS - Improving response. Continue f/u Subjective Date of service: 03/19/22 Principal diagnosis: NSTEMI ?Type 2 NE Interval history: No new complaint Objective - Vital Signs Vital signs: Vital Signs - 12hr 03/19/22 03/19/22 03/19/22 04:42 08:03 10:25 Temperature 97.6 F 97.3 F L Pulse Rate 93 H 119 H Respiratory 22 Rate Blood Pressure 136/73 119/75 O2 Sat by Pulse 99 Oximetry 03/19/22 10:45 Temperature Pulse Rate Respiratory Rate Blood Pressure O2 Sat by Pulse 97 Oximetry - General Appearance General appearance: other (Awake & alert) EENT: PERRL Neck: no JVD Respiratory: Present: Other (Good air entry) Cardiology: regular, S1S2 Gastrointestinal: normal - Lab 03/18/22 05:17 03/19/22 05:47 Most recent lab results ABG pH 7.433 pH Units (7.350-7.450) 03/17/22 09:00 ABG pCO2 27.6 mm Hg 03/17/22 09:00 ABG pO2 61.0 mm Hg (80.0-90.0) L 03/17/22 09:00 ABG HCO3 18.0 mmol/L (20.0-26.0) L 03/17/22 09:00 ABG O2 Saturation 98.2 % (95.0-99.0) 03/17/22 09:00 Calcium 8.6 mg/dL (8.4-10.2) 03/19/22 05:47 Phosphorus 2.20 mg/dL (2.5-4.5) L 03/17/22 04:12 Magnesium 2.10 mg/dL (1.7-2.3) 03/17/22 04:12 Urine Creatinine 167.4 mg/dL (0.1-20.0) H 03/09/22 15:25 Urine Sodium 49 mmol/L 03/09/22 15:25 Medications & Allergies - Medications Allergies/Adverse Reactions: Allergies lisinopril Allergy (Verified 03/16/22 08:26) Hives Home Medications: Home Medications Medication Instructions Recorded Confirmed Last Taken Type Tamsulosin [Flomax] 0.4 mg PO QDAY #7 cap 08/28/15 03/16/22 Unknown Rx amLODIPine [Norvasc] 10 mg PO DAILY #30 tab 08/28/15 03/16/22 Unknown Rx AtorvaSTATin [Lipitor] 40 mg PO QHS 03/11/22 03/16/22 Unknown History Metoprolol Succinate [Toprol Xl] 25 mg PO BID 03/11/22 03/16/22 Unknown History Varenicline Tartrate [Chantix] 1 mg PO BID 03/11/22 03/16/22 Unknown History hydroCHLOROthiazide 12.5 mg PO DAILY 03/11/22 03/16/22 Unknown History [Hydrochlorothiazide] metHOTREXate sodium [Methotrexate] 15 mg PO 1XW 03/11/22 03/16/22 Unknown History predniSONE 10 mg PO BID 03/16/22 03/16/22 Unknown History Active Medications: Generic Name Dose Route Start Last Admin Trade Name Freq PRN Reason Stop Dose Admin Acetaminophen 650 mg 03/08/22 20:07 03/15/22 07:13 Acetaminophen 325 Mg Tab PO 650 mg Q6H PRN Administration Pain MILD(1-3)/Fever >100.5/[place] Albuterol 2.5 mg 03/08/22 20:07 03/17/22 08:31 Albuterol 2.5 Mg/3 Ml Nebu IH 2.5 mg Q3HRT PRN Administration Shortness Of Breath Amiodarone HCl 200 mg 03/14/22 10:00 03/19/22 10:26 Amiodarone 200 Mg Tab PO 200 mg BID FRANCESCA Administration Aspirin 81 mg 03/11/22 10:00 03/19/22 10:26 Aspirin 81 Mg Tab Chew PO 81 mg QDAY FRANCESCA Administration Atorvastatin Calcium 40 mg 03/11/22 22:00 03/18/22 21:13 Atorvastatin 40 Mg Tab PO 40 mg QHS FRANCESCA Administration Doxazosin Mesylate 4 mg 03/18/22 18:00 03/19/22 10:25 Doxazosin 4 Mg Tab PO 4 mg QDAY FRANCESCA Administration Enoxaparin Sodium 80 mg 03/14/22 10:00 03/18/22 21:12 Enoxaparin 80 Mg/0.8 Ml Inj SUB-Q 80 mg Q12HR FRANCESCA Administration Famotidine 20 mg 03/14/22 10:00 03/19/22 10:25 Famotidine 20 Mg Tab PO 20 mg DAILY FRANCESCA Administration Haloperidol Lactate 5 mg 03/10/22 18:12 03/18/22 13:17 Haloperidol Lactate 5 Mg/1 Ml Inj IV 5 mg Q6H PRN Administration Agitation Hydralazine HCl 10 mg 03/18/22 12:35 03/18/22 13:18 Hydralazine 20 Mg/1 Ml Inj IV 10 mg Q6HR PRN Administration Blood Pressure Cefepime HCl 1 gm in 100 mls @ 200 mls/hr 03/12/22 11:00 03/18/22 22:41 Cefepime/Ns 1 Gm/100 Ml IV 200 mls/hr Q12H FRANCESCA Administration Protocol Acyclovir 400 mg/ Sodium 108 mls @ 100 mls/hr 03/14/22 14:00 03/19/22 01:27 Chloride IV 100 mls/hr Q12H FRANCESCA Administration Protocol Vancomycin HCl 1 gm in 250 mls @ 125 mls/hr 03/14/22 13:00 03/18/22 12:12 Vancomycin/Ns 1 Gm/250 Ml IV 125 mls/hr Q24H FRANCESCA Administration Protocol Ampicillin Sodium 2 gm in 100 mls @ 200 mls/hr 03/15/22 04:00 03/19/22 03:04 Ampicillin/Ns 2 Gm/100 Ml IV 200 mls/hr Q12H FRANCESCA Administration Protocol Sodium Chloride 1,000 mls @ 100 mls/hr 03/16/22 11:00 03/19/22 02:29 Nacl 0.45% 1000 Ml IV 25 mls/hr DIRECT FRANCESCA Administration Methotrexate 2.5 mg 03/11/22 16:00 03/18/22 18:45 Methotrexate 2.5 Mg Tab (Dose Weekly Only) PO 2.5 mg Fr FRANCESCA Administration Metoprolol Tartrate 100 mg 03/17/22 22:00 03/19/22 10:25 Metoprolol Tartrate 100 Mg Tab PO 100 mg BID FRANCESCA Administration Morphine Sulfate 2 mg 03/08/22 20:07 03/18/22 10:37 Morphine 4 Mg/1 Ml Inj IV 2 mg Q8H PRN Administration Pain , Severe (7-10) Nicotine 21 mg 03/10/22 10:00 03/19/22 10:24 Nicotine 21 Mg/24 Hr Patch TD 21 mg QDAY FRANCESCA Administration Oxycodone/Acetaminophen 1 tab 03/08/22 20:07 03/11/22 21:37 Oxycodone /Acetaminophen 5-325mg Tab PO 1 tab Q6H PRN Administration Pain, Moderate (4-6) Prednisone 10 mg 03/17/22 10:00 03/19/22 10:25 Prednisone 10 Mg Tab PO 10 mg BID FRANCESCA Administration Quetiapine Fumarate 50 mg 03/18/22 22:00 03/18/22 21:32 Quetiapine 25 Mg Tab PO Not Given QHS FRANCESCA Sodium Chloride 10 ml 03/08/22 22:00 03/19/22 10:26 Sodium Chloride 0.9% 10 Ml Flush Syringe IV Not Given BID FRANCESCA Sodium Chloride 10 ml 03/08/22 20:07 Sodium Chloride 0.9% 10 Ml Flush Syringe IV PRN PRN LINE FLUSH Tamsulosin HCl 0.4 mg 03/17/22 10:00 03/19/22 10:26 Tamsulosin 0.4 Mg Cap PO 0.4 mg QDAY FRANCESCA Administration Tramadol HCl 50 mg 03/08/22 20:11 03/14/22 15:35 Tramadol 50 Mg Tab PO 50 mg Q6H PRN Administration Pain, Moderate (4-6)
--- NOTE | 2022-03-19 13:44 | Progress Note ---
Assessment and Plan Assessment and plan: Assessment and plan: This is a 67-year-old male with known past medical history of vascular dementia, cerebral atherosclerosis, BPH, gastric bypass, renal insufficency, HTN, tho racic aortic aneurysm without rupture, nicotine dependence, benign lungs nodules s/p LDCT, RA, and debility admitted for NSTEMI, AFib with RVR, and MARIE Hospital Course to Date: 03/09: Stable on RA, denied ay pain nor any discomfort at this time. SR with PACs noted on the monitor, VSS. Renal function mild improvement in renal function this am. Continue schedule BB for rate control and therapeutic Lovenox subQ. 2D echo pending and Cardiology consulted. Nephrology is also following. 03/10: More awake today but confused, remains stable on RA. ST with frequent PACs, VSS. Per cardio patient is most likely in MATs. 2D echo still pending, continue BB. Renal function is stable, continue current care per nephro. Nicotine patch added for increase cigarettes urges. Patient's brother provided contact for 3 providers who patient have seen in the past, medical records requested. 03/11: On amiodarone gtt per cardio. Remains in ST with PACs on the monitor, VSS. Plan to switch amio gtt, continue BB. Received records from patient's providers, medical history updated. Per records patient was on Wellbutrin for tobacco dependence but was switched to Chantix in August of this year and patient has not been seen by any of these providers since August 2021. Mental health/spych was also consulted for further eval and treat. 03/12: Patient seen and examined Case discussed with infectious disease concerning for possible sepsis chest x-ray reviewed no acute pneumonia UA without any concern for UTI. Patient does have some abdominal tenderness for which have ordered a CT abdomen and pelvis with oral contrast to further evaluate. We will monitor for worsening renal function as patient has a baseline CKD. Unfortunately due to this cannot get IV contrast. ID started the patient on cefepime 1 g every 12 hours while we will monitor. In the meantime patient can be transferred to telemetry continues on amiodarone p.o. for A. fib. Remains critically ill at this time. 03/13: Patient seen and examined, more lethargic today, May need NGT for Tube feeds if not improving. CTAP was unremarkable. Will start on fluids, cultures remains negative, low grade temp noted. May need LP if no improvement in am. UDS positive for THC on 03/08 No family present. Lady friend visited yesterday, not sure relationship to discuss his clinical condition. Received rispiradone but was already with similar lethargy at the time. 03/14: Patient seen and examined more awake today compared to yesterday but still not following any commands. CT head is negative.. ID broadened antibiotics and recommended lumbar puncture as there is no explanation as to the patient's a ltered mental status that has remained persistent. Again patient was given Ativan a few days ago for CT although that his mental status was still altered he was at least conversational. Lumbar puncture could not be performed today because the patient was moving around a lot. I am avoiding giving a repeat Ativan as I believe that this may have contributed to this recent change. We will await a.m. on reevaluation. NG tube has been placed patient tolerating diet through that. Will need some rehab prior to discharge when clinically improved. Creatinine remains 2.0 we will continue to monitor and trend. Nephrology input appreciated. Due to broaden antibiotics we will start on gentle hydration for renal protection purposes. Again as mentioned I updated patient's brother yesterday who will call back to let us know if the patient's longstanding girlfriend can make decisions. 03/15: Patient seen today. Off to radiology suite for LP. Will follow CSF analysis ordered. Continue tx with vancomycin/cefepime/ampicillin/acylcovir. Per RN, this AM patient was able to recite name and answer some yes/no questions. Will need reassessment tomorrow for mental status. Will need continued PT/OT. 03/16: Remains AOX 1 however is confused. Follows commands but not able to answer further line of questioning. Unclear if this is patinet's baseline as he does have a documented history of dementia in chart. PT/OT recommend MARIBELL. Will need continued assessments. Continue therapy with vanc/cefepime/ampicillin/acyclovir per ID direction. 03/17: Tachypneic and in respiratory distress this AM. Stat CXR and abg ordered. CXR appears to demonstrate patchy airspace disease in mid/upper lung field. COVID PCR sent. Lasix 40 mg IV x 1 ordered. Breathing treatment admin. Talked to patient brother Alfonzo Johnson. Updated on patient care. Per brother, patient has been declining for approximatley 1 mo prior to admission. He was becoming increasingly lethargic and confused. Patient would simply lay in bed and have difficulties completing ADL's. He was frequently incontinent in bed. Pt brother had tried to convince brother to present to ED sooner but Pt would refuse. LP unfortunately has been unable to be completed at this point due to patient aggitation/confusion and inability to lay still. Diagnostic yield of LP would likely be low at this point given his empiric therapy for meningitis. MRI brain would be useful but again given aggitation/confusion would be difficult to perform properly. When patient becomes more clinically stable, may reattempt this. EEG is still pending. Ordered workup for HIV, syphilis, HSV. May need to consider autoimmune etiology as patient does have a history of rheumatoid arthritis. may consider short course of pulse steroids in future. Will continue to follow subspecialist recommendations. 03/18: NG pulled overnight. However, patient is more oriented, alert this AM (able to recite name, brothers name, answer simple yes/no questioning). Plan for ST eval today. Will attempt MRI brain w/o con. Leukocytosis inc to 17K. No fevers noted overnight. Patient respiratory status improved with diuresis, however renal function worsened. Will stop lasix. Continue strict I/O monitoring. 03/19: Continued improvement in mental status. Patient was able to recent the year, his name, brother's name. He asked why he was in the hospital (which he clearly recognized). He does remain lethargic and at continued risk for aspiration. ST evaluation notes that patient is still aspiration risk. Will follow final recommendations, patient may need a PEG tube. MRI brain was negative for acute findings however there are findings of advanced diffuse cerebral atrophy, more prominent than a normal study for someone his age. There is some concern for Alzheimer's disease or Pick's Disease. Will discuss findings with patient brother. Assessment and Plan #Acute Metabolic Encephalopathy #Vascular Dementia - Presented with increased weakness and decreased responsiveness over the past 1 week - Probably secondary to above - Mentation improved this am, still with periods of confusion - Verbal prompting, verbal redirection - Avoid benzodiazepine to reduce the possibility of delirium - Maintenance of sleep-wake cycle - ST eval now that patinet is more alert - MRI brain ordered now that patient is alert #Acute hypoxic respiratory failure #Pulmonary Edema #NSTEMI (non-ST elevated myocardial infarction) #New Onset Atrial Fibrillation with RVR #Hypertension - Presented with AMS, found in AFib with RVR in the ED with elevated troponin - No report of previous Afib history, most likely new onset - Troponin downtrending - Per patient's brother patient sees a PCP in [place], however patient has been refusing to go to the doctor - s/p Pinkyzejoe gtt - Cardiology consulted, appreciate recommendations - Patient is ST with PACs on the monitor. Per cardio most likely MATs. Patient denied any chest pain, VSS - On Amiodarone gtt, plan to switch to PO today - Continue BB and therapeutic Lovenox - 2D Echo noted, EF 25-30% - Continue blood pressure monitor per protocol - Maintain SBP less than 160 - respiratory distress on 03/17, cxr demonstrated pulmonary edema. Diuresed with lasix (now d/c). maintain strict I/O. D/c IVF. hydration via NG or po if possible. #Acute kidney injury(MARIE) due to vasomotor nephropathy - Baseline renal function is unknown, most likely prerenal secondary to above - Renal function remains stable - Neprology consulted, appreciated recommendations - Strict intake and output - Avoid nephrotoxic medications; Renally dose medications - Monitor and replace electrolytes as needed #SIRS (Systemic Inflammatory Response Syndrome)/Sepsis - Presented with leukocytosis and tachycardia, but afebrile - X1 dose of Empiric IV antibiotic given in the ED - UA unremakarble, Blood cultures with NGTD - Patient remains afebrile, leukocytosis improved - Will continue to monitor for now - F/u on cultures #Severe Arthritis #Debility - Supportive measures - PRN analgesia for pain control - PT/OT consulted - resumed home methotrexate and prednisone #Nicotine Dependence #THC - Per patient he smoke at least a pack a day - Was initially on wellbutrin at home, but was switched to Chantix back in August - smoking cessation education provided. Patient verbalized understanding and agreed with the info provided - Nicotine qDay - Mental/Psych consulted for further eval #GI/DVT Prophylaxis - PPI- Pepcid - Lovenox SubQ - SCDs bilateral lower extremities while in bed, #Advance Care Planning - Disease education data, care plan, diagnoses, and prognosis were discussed with patient and patient's brother at the bedside. Patient is a FULL code. They acknowledged understanding and agreed with current care plan. History Interval history: Continued improvement in mental status. Patient was able to recent the year, his name, brother's name. He asked why he was in the hospital (which he clearly recognized). He does remain lethargic and at continued risk for aspiration. Hospitalist Physical - Physical exam Narrative exam: Physical Exam: Constitutional: drowsy Head, Ears, Nose: Normocephalic, atraumatic. External ears, nose normal Eyes: Conjunctivae/corneas clear. No icterus. No ptosis. Neck: Supple, no meningeal signs Cardiovascular: S1, S2 + Respiratory: Good air entry, clear to auscultation bilaterally GI: Seems to have some abdominal guarding, Arteaga present, bowel sounds + Musculoskeletal: No pedal edema, no cyanosis. Skin: No rash or abscess Hem/Lymphatic: No palpable cervical or supraclavicular nodes. No lymphangitis Psych: more alert Neurological: more alert, AOX 2 at least. Slow cognition however able to accurately give brother's name and answer simple yes/no questions. - Constitutional Vitals: Temp Pulse Resp BP Pulse Ox 97.3 F L 119 H 22 119/75 97 03/19/22 08:03 03/19/22 10:25 03/19/22 04:42 03/19/22 08:03 03/19/22 10:45 General appearance: Present: no acute distress, well-nourished, obese HEART Score - HEART Score Troponin: Troponin T 0.119 ng/mL (0.00-0.029) H* D 03/09/22 02:13 Results - Labs CBC & Chem 7: 03/18/22 05:17 03/19/22 05:47 Labs: Laboratory Last Values WBC 17.7 K/mm3 (4.5-11.0) H 03/18/22 05:17 RBC 3.57 M/mm3 (3.65-5.03) L 03/18/22 05:17 Hgb 9.0 gm/dl (11.8-15.2) L 03/18/22 05:17 Hct 28.4 % (35.5-45.6) L 03/18/22 05:17 MCV 80 fl (84-94) L 03/18/22 05:17 MCH 25 pg (28-32) L 03/18/22 05:17 MCHC 32 % (32-34) 03/18/22 05:17 RDW 17.5 % (13.2-15.2) H 03/18/22 05:17 Plt Count 426 K/mm3 (140-440) 03/18/22 05:17 Lymph % (Auto) 7.6 % (13.4-35.0) L 03/18/22 05:17 [place] % (Auto) 6.7 % (0.0-7.3) 03/18/22 05:17 Eos % (Auto) 0.8 % (0.0-4.3) 03/18/22 05:17 Baso % (Auto) 0.4 % (0.0-1.8) 03/18/22 05:17 Lymph # (Auto) 1.3 K/mm3 (1.2-5.4) 03/18/22 05:17 Curry # (Auto) 1.2 K/mm3 (0.0-0.8) H 03/18/22 05:17 Eos # (Auto) 0.1 K/mm3 (0.0-0.4) 03/18/22 05:17 Baso # (Auto) 0.1 K/mm3 (0.0-0.1) 03/18/22 05:17 Add Manual Diff Complete 03/09/22 02:13 Total Counted 100 03/09/22 02:13 Seg Neutrophils % 84.5 % (40.0-70.0) H 03/18/22 05:17 Seg Neuts % (Manual) 80.0 % (40.0-70.0) H 03/09/22 02:13 Band Neutrophils % 0 % 03/09/22 02:13 Lymphocytes % (Manual) 11.0 % (13.4-35.0) L 03/09/22 02:13 Reactive Lymphs % (Man) 0 % 03/09/22 02:13 Monocytes % (Manual) 8.0 % (0.0-7.3) H 03/09/22 02:13 Eosinophils % (Manual) 1.0 % (0.0-4.3) 03/09/22 02:13 Basophils % (Manual) 0 % (0.0-1.8) 03/09/22 02:13 Metamyelocytes % 0 % 03/09/22 02:13 Myelocytes % 0 % 03/09/22 02:13 Promyelocytes % 0 % 03/09/22 02:13 Blast Cells % 0 % 03/09/22 02:13 Nucleated RBC % Not Reportable 03/09/22 02:13 Seg Neutrophils # 15.0 K/mm3 (1.8-7.7) H 03/18/22 05:17 Seg Neutrophils # Man 8.5 K/mm3 (1.8-7.7) H 03/09/22 02:13 Band Neutrophils # 0.0 K/mm3 03/09/22 02:13 Lymphocytes # (Manual) 1.2 K/mm3 (1.2-5.4) 03/09/22 02:13 Abs React Lymphs (Man) 0.0 K/mm3 03/09/22 02:13 Monocytes # (Manual) 0.8 K/mm3 (0.0-0.8) 03/09/22 02:13 Eosinophils # (Manual) 0.1 K/mm3 (0.0-0.4) 03/09/22 02:13 Basophils # (Manual) 0.0 K/mm3 (0.0-0.1) 03/09/22 02:13 Metamyelocytes # 0.0 K/mm3 03/09/22 02:13 Myelocytes # 0.0 K/mm3 03/09/22 02:13 Promyelocytes # 0.0 K/mm3 03/09/22 02:13 Blast Cells # 0.0 K/mm3 03/09/22 02:13 WBC Morphology Not Reportable 03/09/22 02:13 Hypersegmented Neuts Not Reportable 03/09/22 02:13 Hyposegmented Neuts Not Reportable 03/09/22 02:13 Hypogranular Neuts Not Reportable 03/09/22 02:13 Smudge Cells Not Reportable 03/09/22 02:13 Toxic Granulation Not Reportable 03/09/22 02:13 Toxic Vacuolation Not Reportable 03/09/22 02:13 Dohle Bodies Not Reportable 03/09/22 02:13 Pelger-Huet Anomaly Not Reportable 03/09/22 02:13 Marylin Rods Not Reportable 03/09/22 02:13 Platelet Estimate Consistent w auto 03/09/22 02:13 Clumped Platelets Not Reportable 03/09/22 02:13 Plt Clumps, EDTA Not Reportable 03/09/22 02:13 Large Platelets Not Reportable 03/09/22 02:13 Giant Platelets Not Reportable 03/09/22 02:13 Platelet Satelliting Not Reportable 03/09/22 02:13 Plt Morphology Comment Not Reportable 03/09/22 02:13 RBC Morphology Normal 03/09/22 02:13 Dimorphic RBCs Not Reportable 03/09/22 02:13 Polychromasia Not Reportable 03/09/22 02:13 Hypochromasia Not Reportable 03/09/22 02:13 Poikilocytosis Not Reportable 03/09/22 02:13 Anisocytosis Not Reportable 03/09/22 02:13 Microcytosis Not Reportable 03/09/22 02:13 Macrocytosis Not Reportable 03/09/22 02:13 Spherocytes Not Reportable 03/09/22 02:13 Pappenheimer Bodies Not Reportable 03/09/22 02:13 Sickle Cells Not Reportable 03/09/22 02:13 Target Cells Not Reportable 03/09/22 02:13 Tear Drop Cells Not Reportable 03/09/22 02:13 Ovalocytes Not Reportable 03/09/22 02:13 Helmet Cells Not Reportable 03/09/22 02:13 Alvarez-[place] Bodies Not Reportable 03/09/22 02:13 [place] Rings Not Reportable 03/09/22 02:13 [place] Cells Not Reportable 03/09/22 02:13 Bite Cells Not Reportable 03/09/22 02:13 Crenated Cell Not Reportable 03/09/22 02:13 Elliptocytes Not Reportable 03/09/22 02:13 Acanthocytes (Spur) Not Reportable 03/09/22 02:13 Rouleaux Not Reportable 03/09/22 02:13 Hemoglobin C Crystals Not Reportable 03/09/22 02:13 Schistocytes Not Reportable 03/09/22 02:13 Malaria parasites Not Reportable 03/09/22 02:13 Cristino Bodies Not Reportable 03/09/22 02:13 Hem Pathologist Commnt No 03/09/22 02:13 PT 15.7 Sec. (12.2-14.9) H 03/08/22 12:29 INR 1.09 (0.87-1.13) 03/08/22 12:29 ABG pH 7.433 pH Units (7.350-7.450) 03/17/22 09:00 ABG pCO2 27.6 mm Hg 03/17/22 09:00 ABG pO2 61.0 mm Hg (80.0-90.0) L 03/17/22 09:00 ABG HCO3 18.0 mmol/L (20.0-26.0) L 03/17/22 09:00 ABG O2 Saturation 98.2 % (95.0-99.0) 03/17/22 09:00 ABG O2 Content 10.9 (0.0-44) 03/13/22 16:05 ABG Base Excess -5.8 mmol/L (-2.0-3.0) L 03/17/22 09:00 ABG Hemoglobin 5.3 gm/dl (14.0-18.0) L 03/17/22 09:00 ABG Carboxyhemoglobin 1.7 % (0.0-5.0) 03/17/22 09:00 ABG Methemoglobin 0.2 % (0.0-1.5) 03/17/22 09:00 Oxyhemoglobin 96.4 % (95.0-99.0) 03/17/22 09:00 FiO2 32 % 03/17/22 09:00 Sodium 141 mmol/L (137-145) 03/19/22 05:47 Potassium 3.9 mmol/L (3.6-5.0) 03/19/22 05:47 Chloride 106.2 mmol/L (98-107) 03/19/22 05:47 Carbon Dioxide 19 mmol/L (22-30) L 03/19/22 05:47 Anion Gap 20 mmol/L 03/19/22 05:47 BUN 31 mg/dL (9-20) H 03/19/22 05:47 Creatinine 1.9 mg/dL (0.8-1.3) H 03/19/22 05:47 Estimated GFR 43 ml/min 03/19/22 05:47 BUN/Creatinine Ratio 16 % 03/19/22 05:47 Glucose 148 mg/dL (75-100) H 03/19/22 05:47 POC Glucose 125 mg/dL (70-105) H 03/19/22 11:56 Lactic Acid 1.40 mmol/L (0.7-2.0) 03/08/22 12:29 Calcium 8.6 mg/dL (8.4-10.2) 03/19/22 05:47 Phosphorus 2.20 mg/dL (2.5-4.5) L 03/17/22 04:12 Magnesium 2.10 mg/dL (1.7-2.3) 03/17/22 04:12 Total Bilirubin 0.30 mg/dL (0.1-1.2) 03/18/22 05:17 AST 36 units/L (5-40) 03/18/22 05:17 ALT 21 units/L (7-56) 03/18/22 05:17 Alkaline Phosphatase 163 units/L (35-129) H 03/18/22 05:17 Ammonia 10.0 umol/L (25-60) L 03/13/22 19:38 Total Creatine Kinase 53 units/L (55-170) L 03/08/22 12:29 Troponin T 0.119 ng/mL (0.00-0.029) H* D 03/09/22 02:13 C-Reactive Protein 16.20 mg/dL (0.00-1.30) H 03/08/22 12:29 Total Protein 7.2 g/dL (6.3-8.2) 03/18/22 05:17 Albumin 2.1 g/dL (3.9-5) L 03/18/22 05:17 Albumin/Globulin Ratio 0.4 % 03/18/22 05:17 Triglycerides 105 mg/dL (2-149) 03/08/22 12:29 Cholesterol 136 mg/dL (50-199) 03/08/22 12:29 LDL Cholesterol Direct 76 mg/dL (50-130) 03/08/22 12:29 HDL Cholesterol 35 mg/dL (40-59) L 03/08/22 12:29 Cholesterol/HDL Ratio 3.88 % 03/08/22 12:29 PTH Intact 45.32 pg/mL (15-65) 03/11/22 03:52 Urine Color Yellow (Yellow) 03/08/22 14:38 Urine Turbidity Clear (Clear) 03/08/22 14:38 Urine pH 6.0 (5.0-7.0) 03/08/22 14:38 Ur Specific [place] 1.015 (1.003-1.030) 03/08/22 14:38 Urine Protein 30 mg/dl mg/dL (Negative) 03/08/22 14:38 Urine Glucose (UA) Negative mg/dL (Negative) 03/08/22 14:38 Urine Ketones Negative mg/dL (Negative) 03/08/22 14:38 Urine Blood 1+ (Negative) 03/08/22 14:38 Urine Nitrite Negative (Negative) 03/08/22 14:38 Ur Reducing Substances Negative (Negative) 03/08/22 14:38 Urine Bilirubin Negative (Negative) 03/08/22 14:38 Urine Urobilinogen 0.0 mg/dL (<2.0) 03/08/22 14:38 Ur Leukocyte Esterase Negative (Negative) 03/08/22 14:38 Urine WBC (Auto) 3.0 /HPF (0.0-6.0) 03/08/22 14:38 Urine RBC (Auto) 5.0 /HPF (0.0-6.0) 03/08/22 14:38 U Epithel Cells (Auto) 3.0 /HPF (0-13.0) 03/08/22 14:38 Urine Bacteria (Auto) 1+ /HPF (Negative) 03/08/22 14:38 Hyaline Casts 2 /LPF 03/08/22 14:38 Urine Mucus 1+ /HPF 03/08/22 14:38 Urine Creatinine 167.4 mg/dL (0.1-20.0) H 03/09/22 15:25 Urine Sodium 49 mmol/L 03/09/22 15:25 Salicylates < 0.3 mg/dL (2.8-20.0) L 03/08/22 12:29 Urine Opiates Screen Negative 03/08/22 14:38 Urine Methadone Screen Negative 03/08/22 14:38 Acetaminophen 5.0 ug/mL (10.0-30.0) L 03/08/22 12:29 Ur Barbiturates Screen Negative 03/08/22 14:38 Ur Phencyclidine Scrn Negative 03/08/22 14:38 Ur Amphetamines Screen Negative 03/08/22 14:38 U Benzodiazepines Scrn Negative 03/08/22 14:38 Urine Cocaine Screen Negative 03/08/22 14:38 U Marijuana (THC) Screen Positive 03/08/22 14:38 Drugs of Abuse Note Disclamer 03/08/22 14:38 Plasma/Serum Alcohol < 0.01 % (0-0.07) 03/08/22 12:29 Syphilis IgG/IgM Ab Nonreactive (NonReactive) 03/17/22 13:16 Coronavirus (PCR) Negative (Negative) 03/17/22 09:54 HIV 1&2 Antibody Rapid Non react (Non React) 03/17/22 13:16 HIV P24 Antigen Non react (Non React) 03/17/22 13:16 Arteaga/IV: Voiding Method Indwelling Catheter Active Medications - Current Medications Current Medications: Generic Name Dose Route Start Last Admin Trade Name Freq PRN Reason Stop Dose Admin Acetaminophen 650 mg 03/08/22 20:07 03/15/22 07:13 Acetaminophen 325 Mg Tab PO 650 mg Q6H PRN Administration Pain MILD(1-3)/Fever >100.5/[place]ILTON Albuterol 2.5 mg 03/08/22 20:07 03/17/22 08:31 Albuterol 2.5 Mg/3 Ml Nebu IH 2.5 mg Q3HRT PRN Administration Shortness Of Breath Amiodarone HCl 200 mg 03/14/22 10:00 03/19/22 10:26 Amiodarone 200 Mg Tab PO 200 mg BID FRANCESCA Administration Aspirin 81 mg 03/11/22 10:00 03/19/22 10:26 Aspirin 81 Mg Tab Chew PO 81 mg QDAY FRANCESCA Administration Atorvastatin Calcium 40 mg 03/11/22 22:00 03/18/22 21:13 Atorvastatin 40 Mg Tab PO 40 mg QHS FRANCESCA Administration Doxazosin Mesylate 4 mg 03/18/22 18:00 03/19/22 10:25 Doxazosin 4 Mg Tab PO 4 mg QDAY FRANCESCA Administration Enoxaparin Sodium 80 mg 03/14/22 10:00 03/18/22 21:12 Enoxaparin 80 Mg/0.8 Ml Inj SUB-Q 80 mg Q12HR FRANCESCA Administration Famotidine 20 mg 03/14/22 10:00 03/19/22 10:25 Famotidine 20 Mg Tab PO 20 mg DAILY FRANCESCA Administration Haloperidol Lactate 5 mg 03/10/22 18:12 03/18/22 13:17 Haloperidol Lactate 5 Mg/1 Ml Inj IV 5 mg Q6H PRN Administration Agitation Hydralazine HCl 10 mg 03/18/22 12:35 03/18/22 13:18 Hydralazine 20 Mg/1 Ml Inj IV 10 mg Q6HR PRN Administration Blood Pressure Cefepime HCl 1 gm in 100 mls @ 200 mls/hr 03/12/22 11:00 03/18/22 22:41 Cefepime/Ns 1 Gm/100 Ml IV 200 mls/hr Q12H FRANCESCA Administration Protocol Acyclovir 400 mg/ Sodium 108 mls @ 100 mls/hr 03/14/22 14:00 03/19/22 01:27 Chloride IV 100 mls/hr Q12H FRANCESCA Administration Protocol Vancomycin HCl 1 gm in 250 mls @ 125 mls/hr 03/14/22 13:00 03/18/22 12:12 Vancomycin/Ns 1 Gm/250 Ml IV 125 mls/hr Q24H FRANCESCA Administration Protocol Ampicillin Sodium 2 gm in 100 mls @ 200 mls/hr 03/15/22 04:00 03/19/22 03:04 Ampicillin/Ns 2 Gm/100 Ml IV 200 mls/hr Q12H FRANCESCA Administration Protocol Sodium Chloride 1,000 mls @ 100 mls/hr 03/16/22 11:00 03/19/22 02:29 Nacl 0.45% 1000 Ml IV 25 mls/hr DIRECT FRANCESCA Administration Methotrexate 2.5 mg 03/11/22 16:00 03/18/22 18:45 Methotrexate 2.5 Mg Tab (Dose Weekly Only) PO 2.5 mg Fr FRANCESCA Administration Metoprolol Tartrate 100 mg 03/17/22 22:00 03/19/22 10:25 Metoprolol Tartrate 100 Mg Tab PO 100 mg BID FRANCESCA Administration Morphine Sulfate 2 mg 03/08/22 20:07 03/18/22 10:37 Morphine 4 Mg/1 Ml Inj IV 2 mg Q8H PRN Administration Pain , Severe (7-10) Nicotine 21 mg 03/10/22 10:00 03/19/22 10:24 Nicotine 21 Mg/24 Hr Patch TD 21 mg QDAY FRANCESCA Administration Oxycodone/Acetaminophen 1 tab 03/08/22 20:07 03/11/22 21:37 Oxycodone /Acetaminophen 5-325mg Tab PO 1 tab Q6H PRN Administration Pain, Moderate (4-6) Prednisone 10 mg 03/17/22 10:00 03/19/22 10:25 Prednisone 10 Mg Tab PO 10 mg BID FRANCESCA Administration Quetiapine Fumarate 50 mg 03/18/22 22:00 03/18/22 21:32 Quetiapine 25 Mg Tab PO Not Given QHS FRANCESCA Sodium Chloride 10 ml 03/08/22 22:00 03/19/22 10:26 Sodium Chloride 0.9% 10 Ml Flush Syringe IV Not Given BID FRANCESCA Sodium Chloride 10 ml 03/08/22 20:07 Sodium Chloride 0.9% 10 Ml Flush Syringe IV PRN PRN LINE FLUSH Tamsulosin HCl 0.4 mg 03/17/22 10:00 03/19/22 10:26 Tamsulosin 0.4 Mg Cap PO 0.4 mg QDAY FRANCESCA Administration Tramadol HCl 50 mg 03/08/22 20:11 03/14/22 15:35 Tramadol 50 Mg Tab PO 50 mg Q6H PRN Administration Pain, Moderate (4-6) Nutrition/Malnutrition Assess - Dietary Evaluation Nutrition/Malnutrition Findings: Nutrition Notes Start: 03/14/22 11:02 Freq: Status: Active Protocol: Document 03/16/22 11:12 ABDIAS (Rec: 03/16/22 11:21 [email or web address] [id number]) Nutrition Notes Initial or Follow up Brief Note Current Diagnosis Acute Kidney Injury,Sepsis, Hypertension,Stroke Other Pertinent Diagnosis NSTEMI II, Atrial Fibrilation/ RVR, Metabolic Encephalopathy, SIRS, ... Current Diet TF-Nepro w/CARBSTEADY @ 50 ml/ hr (since D 03/13). Height 6 ft Weight 73 kg [place] Body Weight (kg) 80.90 BMI 21.8 Weight change and time frame No body weight change reported in 2 days. Weight Status Appropriate Subjective/Other Information RD consult for routine F/U on TF tolerance/continuation. TF continues as prescribed, no further information available at the time. Pt is on Room Air, O2 saturation @ 94%, according to Physical Assessment History notes. Percent of energy/protein needs met: Prescribed TF-Nepro w/ CARBSTEADY @ 50 ml/hr provides for energy/protein needs (2, 180 Kcal/98 g) during LOS, 96% Kcal; 111% AA. #1 Nutrition Diagnosis Inadequate oral intake Diagnosis Progress(for reassessment Continues documentation) Is patient on ventilator? No Is Patient Ambulatory and/or Out of Bed No REE-([place]-confined to bed) 1863.060 Kcal/Kg value to use for calculation 31 Approximate Energy Requirements Using 2263 kcal/Kg Calculation Used for Recommendations Kcal/kg Additional Notes Protein: 0.8-1.2 g/Kg ABW; 58- 88 g/day. Fluids: 1 ml/Kcal, or as per MD. Nutrition Intervention Nutrition Support: Continue TF-Nepro w/CARBSTEADY @ 50 ml/hr. Flush: 230 ml water Q 4 hr, or as per MD. Kcal 2,180 Protein (gm) 98 Carbohydrates (gm) 195 Fat (gm) 116 Fluid (mL) 880 Fiber (gm) 15 % RDI: 96% Kcal; 111% AA. Goal #1 Provide at least 75% of energy /protein needs through Enteral Feeding during LOS. Follow-Up By: 03/23/22 Additional Comments Continue monitoring TF tolerance and BM.
[2022-03-19] MEDS: VANCOMYCIN/NS 1 GM/250 ML 1 GM/250 ML BAG IV SCH (16:14)
[2022-03-19] MEDS: QUEtiapine 25 MG TAB PO SCH (21:06)
[2022-03-19] MEDS: CEFEPIME/NS 1 GM/100 ML 1 GM/100 ML BAG IV SCH ×2 (22:32→22:33)
[2022-03-20] MEDS: ACYCLOVIR 400 MG in SODIUM CHLORIDE 0.9% 100 ML IV SCH ×3 (01:03→15:05)
[2022-03-20] MEDS: AMPICILLIN/NS 2 GM/100 ML 2 GM/100 ML BAG IV SCH ×3 (03:01→16:09)
[2022-03-20] MEDS: SODIUM CHLORIDE 0.45% 1000 ML 1,000 ML IV SCH ×3 (06:35→19:00)
--- NOTE | 2022-03-20 09:59 | Progress Note ---
Assessment and Plan Echo 03/09/2022 - EF 25 to 30%. Severe global hypokinesis of left ventricle. Moderate concentric LVH. Mild diastolic dysfunction is present, impaired relaxation pattern. Moderate aortic regurgitation. No pericardial effusion. Conservative cardiac mgmt recommended in light of mental status. Will revisit if mentation continues to improve. Continue anticoagulation with SQ Lovenox. Continue PO Amiodarone 200mg BID and Lopressor 100mg BID. Can titrate up BB if needed for rate control. ACEI/ARB/ARNI deferred due to renal fxn. Pt seen in conjunction with Dr. Pyle, who agrees with the assessment and plan of care. - Patient Problems (1) Altered mental status Current Visit: Yes Status: Acute (2) Sepsis Current Visit: Yes Status: Acute (3) PNA (pneumonia) Current Visit: Yes Status: Acute Qualifiers: Pneumonia type: aspiration pneumonia (4) NSTEMI (non-ST elevated myocardial infarction) Current Visit: Yes Status: Acute (5) Cardiomyopathy Current Visit: Yes Status: Acute (6) PAF (paroxysmal atrial fibrillation) Current Visit: Yes Status: Acute (7) Multifocal atrial tachycardia Current Visit: Yes Status: Acute (8) MARIE (acute kidney injury) Current Visit: Yes Status: Acute (9) Anemia Current Visit: Yes Status: Acute (10) Cerebral atherosclerosis Current Visit: Yes Status: Chronic (11) Vascular dementia Current Visit: Yes Status: Chronic Qualifiers: Dementia behavioral disturbance: with behavioral disturbance Qualified Code(s): F01.51 - Vascular dementia with behavioral disturbance (12) BPH (benign prostatic hyperplasia) Current Visit: Yes Status: Chronic (13) Nicotine dependence Current Visit: Yes Status: Chronic Subjective Date of service: 03/20/22 Principal diagnosis: NSTEMI ?Type 2 NV Interval history: A/O x3 this AM. States "I feel fabulous." AF 80s on tele , no events. Objective Vital Signs Temp Pulse Resp BP BP Pulse Ox 03/20/22 09:41 97 03/20/22 08:00 98.7 F 81 20 140/74 100 03/20/22 03:00 98.9 F 97 H 18 113/80 92 03/20/22 02:58 98.3 F 84 24 131/74 100 03/19/22 23:37 97.9 F 68 28 H 135/74 95 03/19/22 22:00 67 03/19/22 20:59 96 03/19/22 20:23 100 03/19/22 19:06 98.2 F 79 28 H 170/89 100 03/19/22 16:00 89 20 134/84 97 03/19/22 10:45 97 03/19/22 10:25 119 H - Physical Examination General: No Apparent Distress HEENT: Positive: Normocephaly, Mucus Membranes Dry Neck: Negative: JVD/HJR Cardiac: Positive: irregularly irregular, S1/S2 Lungs: Positive: clear to auscultation Neuro: Positive: Grossly Intact Abdomen: Positive: Soft Skin: Negative: Rash Extremities: Present: warm. Absent: edema - Imaging and Cardiology EKG: report reviewed, image reviewed Echo: report reviewed - Telemetry EKG Rhythm: Atrial Fibrillation - EKG Sinus rhythms and dysrhythmias: sinus rhythm Ventricular dysrhythmias: ventricular premature com Myocardial infarction: septal NV (old age or ind, anterior NV (old age or i - Allied health notes Allied health notes reviewed: nursing
[2022-03-20] MEDS: TAMSULOSIN 0.4 MG CAP PO SCH (10:41)
[2022-03-20] MEDS: DOXAZOSIN 4 MG TAB PO SCH (10:41)
[2022-03-20] MEDS: NICOTINE 21 MG/24 HR PATCH TD SCH (10:41)
[2022-03-20] MEDS: AMIODARONE 200 MG TAB PO SCH ×2 (10:42→21:54)
[2022-03-20] MEDS: predniSONE 10 MG TAB PO SCH ×2 (10:42→21:53)
[2022-03-20] MEDS: ASPIRIN 81 MG TAB CHEW PO SCH (10:42)
[2022-03-20] MEDS: METOPROLOL TARTRATE 100 MG TAB PO SCH ×2 (10:42→21:53)
[2022-03-20] MEDS: FAMOTIDINE 20 MG TAB PO SCH (10:42)
[2022-03-20] MEDS: ENOXAPARIN 80 MG/0.8 ML INJ SUB-Q SCH ×2 (10:43→21:54)
[2022-03-20 11:54] LABS: Basophils % (Auto) 0.2 % (0.0-1.8); Eosinophils # (Auto) 0.1 K/mm3 (0.0-0.4); Eosinophils % (Auto) 0.5 % (0.0-4.3); Hematocrit 24.6 % (35.5-45.6); Hemoglobin 7.6 gm/dl (11.8-15.2); Lymphocytes # (Auto) 0.9 K/mm3 (1.2-5.4); Lymphocytes % (Auto) 6.5 % (13.4-35.0); Mean Corpuscular HGB Conc 31 % (32-34); Mean Corpuscular Volume 80 fl (84-94); Monocytes # (Auto) 0.5 K/mm3 (0.0-0.8); Monocytes % (Auto) 3.3 % (0.0-7.3); Platelet Count 366 K/mm3 (140-440); Red Blood Count 3.09 M/mm3 (3.65-5.03); Red Cell Distribution Width 17.2 % (13.2-15.2)
[2022-03-20 11:58] LABS: Calcium 8.6 mg/dL (8.4-10.2)
--- NOTE | 2022-03-20 12:03 | Progress Note ---
Assessment and Plan MARIE - Continue IVF & f/u BUN/Cr. Still hold further diuretics HTN - F/u on current meds A Fib - F/u per Cardiology AMS - Improving response. F/u Mx Subjective Date of service: 03/20/22 Principal diagnosis: NSTEMI ?Type 2 LA Interval history: No new complaint Objective - Vital Signs Vital signs: Vital Signs - 12hr 03/20/22 03/20/22 03/20/22 02:58 03:00 08:00 Temperature 98.3 F 98.9 F 98.7 F Pulse Rate 84 97 H 81 Respiratory 24 18 20 Rate Blood Pressure 131/74 113/80 Blood Pressure 140/74 [Left] O2 Sat by Pulse 100 92 100 Oximetry 03/20/22 03/20/22 09:41 10:42 Temperature Pulse Rate 72 Respiratory Rate Blood Pressure Blood Pressure [Left] O2 Sat by Pulse 97 Oximetry - General Appearance General appearance: other (Awake & alert. DHT in place with feed) EENT: PERRL, hearing intact Neck: no JVD Respiratory: Present: Other (Good air entry) Cardiology: regular, S1S2 Gastrointestinal: normal Neurologic: other (Awake & responsive) - Lab 03/18/22 05:17 03/20/22 04:00 Most recent lab results ABG pH 7.433 pH Units (7.350-7.450) 03/17/22 09:00 ABG pCO2 27.6 mm Hg 03/17/22 09:00 ABG pO2 61.0 mm Hg (80.0-90.0) L 03/17/22 09:00 ABG HCO3 18.0 mmol/L (20.0-26.0) L 03/17/22 09:00 ABG O2 Saturation 98.2 % (95.0-99.0) 03/17/22 09:00 Calcium 8.6 mg/dL (8.4-10.2) 03/20/22 04:00 Phosphorus 2.20 mg/dL (2.5-4.5) L 03/17/22 04:12 Magnesium 2.10 mg/dL (1.7-2.3) 03/17/22 04:12 Urine Creatinine 167.4 mg/dL (0.1-20.0) H 03/09/22 15:25 Urine Sodium 49 mmol/L 03/09/22 15:25 Medications & Allergies - Medications Allergies/Adverse Reactions: Allergies lisinopril Allergy (Verified 03/16/22 08:26) Hives Home Medications: Home Medications Medication Instructions Recorded Confirmed Last Taken Type Tamsulosin [Flomax] 0.4 mg PO QDAY #7 cap 08/28/15 03/16/22 Unknown Rx amLODIPine [Norvasc] 10 mg PO DAILY #30 tab 08/28/15 03/16/22 Unknown Rx AtorvaSTATin [Lipitor] 40 mg PO QHS 03/11/22 03/16/22 Unknown History Metoprolol Succinate [Toprol Xl] 25 mg PO BID 03/11/22 03/16/22 Unknown History Varenicline Tartrate [Chantix] 1 mg PO BID 03/11/22 03/16/22 Unknown History hydroCHLOROthiazide 12.5 mg PO DAILY 03/11/22 03/16/22 Unknown History [Hydrochlorothiazide] metHOTREXate sodium [Methotrexate] 15 mg PO 1XW 03/11/22 03/16/22 Unknown History predniSONE 10 mg PO BID 03/16/22 03/16/22 Unknown History Active Medications: Generic Name Dose Route Start Last Admin Trade Name Freq PRN Reason Stop Dose Admin Acetaminophen 650 mg 03/08/22 20:07 03/15/22 07:13 Acetaminophen 325 Mg Tab PO 650 mg Q6H PRN Administration Pain MILD(1-3)/Fever >100.5/HILTON Albuterol 2.5 mg 03/08/22 20:07 03/17/22 08:31 Albuterol 2.5 Mg/3 Ml Nebu IH 2.5 mg Q3HRT PRN Administration Shortness Of Breath Amiodarone HCl 200 mg 03/14/22 10:00 03/20/22 10:42 Amiodarone 200 Mg Tab PO 200 mg BID FRANCESCA Administration Aspirin 81 mg 03/11/22 10:00 03/20/22 10:42 Aspirin 81 Mg Tab Chew PO 81 mg QDAY FRANCESCA Administration Atorvastatin Calcium 40 mg 03/11/22 22:00 03/19/22 21:06 Atorvastatin 40 Mg Tab PO 40 mg QHS FRANCESCA Administration Doxazosin Mesylate 4 mg 03/18/22 18:00 03/20/22 10:41 Doxazosin 4 Mg Tab PO 4 mg QDAY FRANCESCA Administration Enoxaparin Sodium 80 mg 03/14/22 10:00 03/20/22 10:43 Enoxaparin 80 Mg/0.8 Ml Inj SUB-Q 80 mg Q12HR FRANCESCA Administration Famotidine 20 mg 03/14/22 10:00 03/20/22 10:42 Famotidine 20 Mg Tab PO 20 mg DAILY FRANCESCA Administration Haloperidol Lactate 5 mg 03/10/22 18:12 03/18/22 13:17 Haloperidol Lactate 5 Mg/1 Ml Inj IV 5 mg Q6H PRN Administration Agitation Hydralazine HCl 10 mg 03/18/22 12:35 03/18/22 13:18 Hydralazine 20 Mg/1 Ml Inj IV 10 mg Q6HR PRN Administration Blood Pressure Cefepime HCl 1 gm in 100 mls @ 200 mls/hr 03/12/22 11:00 03/19/22 22:33 Cefepime/Ns 1 Gm/100 Ml IV 200 mls/hr Q12H FRANCESCA Administration Protocol Acyclovir 400 mg/ Sodium 108 mls @ 100 mls/hr 03/14/22 14:00 03/20/22 01:05 Chloride IV 100 mls/hr Q12H FRANCESCA Administration Protocol Ampicillin Sodium 2 gm in 100 mls @ 200 mls/hr 03/15/22 04:00 03/20/22 03:01 Ampicillin/Ns 2 Gm/100 Ml IV 200 mls/hr Q12H FRANCESCA Administration Protocol Sodium Chloride 1,000 mls @ 100 mls/hr 03/16/22 11:00 03/20/22 06:35 Nacl 0.45% 1000 Ml IV 25 mls/hr DIRECT FRANCESCA Administration Vancomycin HCl 1 gm in 250 mls @ 125 mls/hr 03/21/22 16:00 Vancomycin/Ns 1 Gm/250 Ml IV Q36H FRANCESCA Protocol Methotrexate 2.5 mg 03/11/22 16:00 03/18/22 18:45 Methotrexate 2.5 Mg Tab (Dose Weekly Only) PO 2.5 mg Fr FRANCESCA Administration Metoprolol Tartrate 100 mg 03/17/22 22:00 03/20/22 10:42 Metoprolol Tartrate 100 Mg Tab PO 100 mg BID FRANCESCA Administration Morphine Sulfate 2 mg 03/08/22 20:07 03/18/22 10:37 Morphine 4 Mg/1 Ml Inj IV 2 mg Q8H PRN Administration Pain , Severe (7-10) Nicotine 21 mg 03/10/22 10:00 03/20/22 10:41 Nicotine 21 Mg/24 Hr Patch TD 21 mg QDAY FRANCESCA Administration Oxycodone/Acetaminophen 1 tab 03/08/22 20:07 03/11/22 21:37 Oxycodone /Acetaminophen 5-325mg Tab PO 1 tab Q6H PRN Administration Pain, Moderate (4-6) Prednisone 10 mg 03/17/22 10:00 03/20/22 10:42 Prednisone 10 Mg Tab PO 10 mg BID FRANCESCA Administration Quetiapine Fumarate 50 mg 03/18/22 22:00 03/19/22 21:06 Quetiapine 25 Mg Tab PO 50 mg QHS FRANCESCA Administration Sodium Chloride 10 ml 03/08/22 22:00 03/19/22 21:08 Sodium Chloride 0.9% 10 Ml Flush Syringe IV 10 ml BID FRANCESCA Administration Sodium Chloride 10 ml 03/08/22 20:07 Sodium Chloride 0.9% 10 Ml Flush Syringe IV PRN PRN LINE FLUSH Tamsulosin HCl 0.4 mg 03/17/22 10:00 03/20/22 10:41 Tamsulosin 0.4 Mg Cap PO 0.4 mg QDAY FRANCESCA Administration Tramadol HCl 50 mg 03/08/22 20:11 03/14/22 15:35 Tramadol 50 Mg Tab PO 50 mg Q6H PRN Administration Pain, Moderate (4-6)
--- NOTE | 2022-03-20 12:41 | Progress Note ---
Assessment and Plan Assessment and plan: Assessment and plan: This is a 67-year-old male with known past medical history of vascular dementia, cerebral atherosclerosis, BPH, gastric bypass, renal insufficency, HTN, tho racic aortic aneurysm without rupture, nicotine dependence, benign lungs nodules s/p LDCT, RA, and debility admitted for NSTEMI, AFib with RVR, and MARIE Hospital Course to Date: 03/09: Stable on RA, denied ay pain nor any discomfort at this time. SR with PACs noted on the monitor, VSS. Renal function mild improvement in renal function this am. Continue schedule BB for rate control and therapeutic Lovenox subQ. 2D echo pending and Cardiology consulted. Nephrology is also following. 03/10: More awake today but confused, remains stable on RA. ST with frequent PACs, VSS. Per cardio patient is most likely in MATs. 2D echo still pending, continue BB. Renal function is stable, continue current care per nephro. Nicotine patch added for increase cigarettes urges. Patient's brother provided contact for 3 providers who patient have seen in the past, medical records requested. 03/11: On amiodarone gtt per cardio. Remains in ST with PACs on the monitor, VSS. Plan to switch amio gtt, continue BB. Received records from patient's providers, medical history updated. Per records patient was on Wellbutrin for tobacco dependence but was switched to Chantix in August of this year and patient has not been seen by any of these providers since August 2021. Mental health/spych was also consulted for further eval and treat. 03/12: Patient seen and examined Case discussed with infectious disease concerning for possible sepsis chest x-ray reviewed no acute pneumonia UA without any concern for UTI. Patient does have some abdominal tenderness for which have ordered a CT abdomen and pelvis with oral contrast to further evaluate. We will monitor for worsening renal function as patient has a baseline CKD. Unfortunately due to this cannot get IV contrast. ID started the patient on cefepime 1 g every 12 hours while we will monitor. In the meantime patient can be transferred to telemetry continues on amiodarone p.o. for A. fib. Remains critically ill at this time. 03/13: Patient seen and examined, more lethargic today, May need NGT for Tube feeds if not improving. CTAP was unremarkable. Will start on fluids, cultures remains negative, low grade temp noted. May need LP if no improvement in am. UDS positive for THC on 03/08 No family present. Lady friend visited yesterday, not sure relationship to discuss his clinical condition. Received rispiradone but was already with similar lethargy at the time. 03/14: Patient seen and examined more awake today compared to yesterday but still not following any commands. CT head is negative.. ID broadened antibiotics and recommended lumbar puncture as there is no explanation as to the patient's a ltered mental status that has remained persistent. Again patient was given Ativan a few days ago for CT although that his mental status was still altered he was at least conversational. Lumbar puncture could not be performed today because the patient was moving around a lot. I am avoiding giving a repeat Ativan as I believe that this may have contributed to this recent change. We will await a.m. on reevaluation. NG tube has been placed patient tolerating diet through that. Will need some rehab prior to discharge when clinically improved. Creatinine remains 2.0 we will continue to monitor and trend. Nephrology input appreciated. Due to broaden antibiotics we will start on gentle hydration for renal protection purposes. Again as mentioned I updated patient's brother yesterday who will call back to let us know if the patient's longstanding girlfriend can make decisions. 03/15: Patient seen today. Off to radiology suite for LP. Will follow CSF analysis ordered. Continue tx with vancomycin/cefepime/ampicillin/acylcovir. Per RN, this AM patient was able to recite name and answer some yes/no questions. Will need reassessment tomorrow for mental status. Will need continued PT/OT. 03/16: Remains AOX 1 however is confused. Follows commands but not able to answer further line of questioning. Unclear if this is patinet's baseline as he does have a documented history of dementia in chart. PT/OT recommend MARIBELL. Will need continued assessments. Continue therapy with vanc/cefepime/ampicillin/acyclovir per ID direction. 03/17: Tachypneic and in respiratory distress this AM. Stat CXR and abg ordered. CXR appears to demonstrate patchy airspace disease in mid/upper lung field. COVID PCR sent. Lasix 40 mg IV x 1 ordered. Breathing treatment admin. Talked to patient brother Alfonzo Johnson [phone]. Updated on patient care. Per brother, patient has been declining for approximatley 1 mo prior to admission. He was becoming increasingly lethargic and confused. Patient would simply lay in bed and have difficulties completing ADL's. He was frequently i ncontinent in bed. Pt brother had tried to convince brother to present to ED sooner but Pt would refuse. LP unfortunately has been unable to be completed at this point due to patient aggitation/confusion and inability to lay still. Diagnostic yield of LP would likely be low at this point given his empiric therapy for meningitis. MRI brain would be useful but again given aggitation/confusion would be difficult to perform properly. When patient becomes more clinically stable, may reattempt this. EEG is still pending. Ordered workup for HIV, syphilis, HSV. May need to consider autoimmune etiology as patient does have a history of rheumatoid arthritis. may consider short course of pulse steroids in future. Will continue to follow subspecialist recommendations. 03/18: NG pulled overnight. However, patient is more oriented, alert this AM (able to recite name, brothers name, answer simple yes/no questioning). Plan for ST eval today. Will attempt MRI brain w/o con. Leukocytosis inc to 17K. No fevers noted overnight. Patient respiratory status improved with diuresis, however renal function worsened. Will stop lasix. Continue strict I/O monitoring. 03/19: Continued improvement in mental status. Patient was able to recent the year, his name, brother's name. He asked why he was in the hospital (which he clearly recognized). He does remain lethargic and at continued risk for aspiration. ST evaluation notes that patient is still aspiration risk. Will follow final recommendations, patient may need a PEG tube. MRI brain was negative for acute findings however there are findings of advanced diffuse cerebral atrophy, more prominent than a normal study for someone his age. There is some concern for Alzheimer's disease or Pick's Disease. Will discuss findings with patient brother. 03/20: Able to answer questions. Alert, orientation fluctuates but knows name and some distant facts (brothers name etc). no speech therapy at hospital today, will await for reassessment of swallowing to assess aspiratoin risk prior to consultation to GI. called brothers Alfonzo and Michael and updated on patient clinical status. Ultimately, I explained that pt likely has advanced dementia and doubt there is any metabolic or infectious etiology. I stated that I would discuss with our subspecialists to see if other etiologies could be possible. Ultimately patient disposition is SNF. CM has already made referrals to [facility]. 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 #Acute hypoxic respiratory failure #Pulmonary Edema #NSTEMI (non-ST elevated myocardial infarction) #New Onset Atrial Fibrillation with RVR #Hypertension - Presented with AMS, found in AFib with RVR in the ED with elevated troponin - No report of previous Afib history, most likely new onset - Troponin downtrending - Per patient's brother patient sees a PCP in [place], however patient has been refusing to go to the doctor - s/p Chey gtt - Cardiology consulted, appreciate recommendations - Patient is ST with PACs on the monitor. Per cardio most likely MATs. Patient denied any chest pain, VSS - On Amiodarone gtt, plan to switch to PO today - Continue BB and therapeutic Lovenox - 2D Echo noted, EF 25-30% - Continue blood pressure monitor per protocol - Maintain SBP less than 160 - respiratory distress on 03/17, cxr demonstrated pulmonary edema. Diuresed with lasix (now d/c). maintain strict I/O. D/c IVF. hydration via NG or po if possible. #Acute kidney injury(MARIE) due to vasomotor nephropathy - Baseline renal function is unknown, most likely prerenal secondary to above - Renal function remains stable - Neprology consulted, appreciated recommendations - Strict intake and output - Avoid nephrotoxic medications; Renally dose medications - Monitor and replace electrolytes as needed #SIRS (Systemic Inflammatory Response Syndrome)/Sepsis - Presented with leukocytosis and tachycardia, but afebrile - X1 dose of Empiric IV antibiotic given in the ED - UA unremakarble, Blood cultures with NGTD - Patient remains afebrile, leukocytosis improved - Will continue to monitor for now - F/u on cultures #Severe Arthritis #Debility - Supportive measures - PRN analgesia for pain control - PT/OT consulted - resumed home methotrexate and prednisone #Nicotine Dependence #THC - Per patient he smoke at least a pack a day - Was initially on wellbutrin at home, but was switched to Chantix back in August - smoking cessation education provided. Patient verbalized understanding and agreed with the info provided - Nicotine qDay - Mental/Psych consulted for further eval #GI/DVT Prophylaxis - PPI- Pepcid - Lovenox SubQ - SCDs bilateral lower extremities while in bed, #Advance Care Planning - Disease education data, care plan, diagnoses, and prognosis were discussed with patient and patient's brother at the bedside. Patient is a FULL code. They acknowledged understanding and agreed with current care plan. History Interval history: Resting comfortably. Confused about location but patient was alert, knew name. Insisted on needing to smoke a cigarette. Hospitalist Physical - Physical exam Narrative exam: Physical Exam: Constitutional: drowsy Head, Ears, Nose: Normocephalic, atraumatic. External ears, nose normal Eyes: Conjunctivae/corneas clear. No icterus. No ptosis. Neck: Supple, no meningeal signs Cardiovascular: S1, S2 + Respiratory: Good air entry, clear to auscultation bilaterally GI: Seems to have some abdominal guarding, Arteaga present, bowel sounds + Musculoskeletal: No pedal edema, no cyanosis. Skin: No rash or abscess Hem/Lymphatic: No palpable cervical or supraclavicular nodes. No lymphangitis Psych: more alert Neurological: more alert, AOX 2 at least. Slow cognition however able to accurately give brother's name and answer simple yes/no questions. - Constitutional Vitals: Temp Pulse Resp BP Pulse Ox 97.7 F 65 18 117/75 100 03/20/22 12:35 03/20/22 12:35 03/20/22 12:35 03/20/22 12:35 03/20/22 12:35 General appearance: Present: no acute distress, well-nourished, obese HEART Score - HEART Score Troponin: Troponin T 0.119 ng/mL (0.00-0.029) H* D 03/09/22 02:13 Results - Labs CBC & Chem 7: 03/20/22 04:00 03/20/22 04:00 Labs: Laboratory Last Values WBC 14.5 K/mm3 (4.5-11.0) H 03/20/22 04:00 RBC 3.09 M/mm3 (3.65-5.03) L 03/20/22 04:00 Hgb 7.6 gm/dl (11.8-15.2) L 03/20/22 04:00 Hct 24.6 % (35.5-45.6) L 03/20/22 04:00 MCV 80 fl (84-94) L 03/20/22 04:00 MCH 25 pg (28-32) L 03/20/22 04:00 MCHC 31 % (32-34) L 03/20/22 04:00 RDW 17.2 % (13.2-15.2) H 03/20/22 04:00 Plt Count 366 K/mm3 (140-440) 03/20/22 04:00 Lymph % (Auto) 6.5 % (13.4-35.0) L 03/20/22 04:00 Robeson % (Auto) 3.3 % (0.0-7.3) 03/20/22 04:00 Eos % (Auto) 0.5 % (0.0-4.3) 03/20/22 04:00 Baso % (Auto) 0.2 % (0.0-1.8) 03/20/22 04:00 Lymph # (Auto) 0.9 K/mm3 (1.2-5.4) L 03/20/22 04:00 Robeson # (Auto) 0.5 K/mm3 (0.0-0.8) 03/20/22 04:00 Eos # (Auto) 0.1 K/mm3 (0.0-0.4) 03/20/22 04:00 Baso # (Auto) 0.0 K/mm3 (0.0-0.1) 03/20/22 04:00 Add Manual Diff Complete 03/09/22 02:13 Total Counted 100 03/09/22 02:13 Seg Neutrophils % 89.5 % (40.0-70.0) H 03/20/22 04:00 Seg Neuts % (Manual) 80.0 % (40.0-70.0) H 03/09/22 02:13 Band Neutrophils % 0 % 03/09/22 02:13 Lymphocytes % (Manual) 11.0 % (13.4-35.0) L 03/09/22 02:13 Reactive Lymphs % (Man) 0 % 03/09/22 02:13 Monocytes % (Manual) 8.0 % (0.0-7.3) H 03/09/22 02:13 Eosinophils % (Manual) 1.0 % (0.0-4.3) 03/09/22 02:13 Basophils % (Manual) 0 % (0.0-1.8) 03/09/22 02:13 Metamyelocytes % 0 % 03/09/22 02:13 Myelocytes % 0 % 03/09/22 02:13 Promyelocytes % 0 % 03/09/22 02:13 Blast Cells % 0 % 03/09/22 02:13 Nucleated RBC % Not Reportable 03/09/22 02:13 Seg Neutrophils # 13.0 K/mm3 (1.8-7.7) H 03/20/22 04:00 Seg Neutrophils # Man 8.5 K/mm3 (1.8-7.7) H 03/09/22 02:13 Band Neutrophils # 0.0 K/mm3 03/09/22 02:13 Lymphocytes # (Manual) 1.2 K/mm3 (1.2-5.4) 03/09/22 02:13 Abs React Lymphs (Man) 0.0 K/mm3 03/09/22 02:13 Monocytes # (Manual) 0.8 K/mm3 (0.0-0.8) 03/09/22 02:13 Eosinophils # (Manual) 0.1 K/mm3 (0.0-0.4) 03/09/22 02:13 Basophils # (Manual) 0.0 K/mm3 (0.0-0.1) 03/09/22 02:13 Metamyelocytes # 0.0 K/mm3 03/09/22 02:13 Myelocytes # 0.0 K/mm3 03/09/22 02:13 Promyelocytes # 0.0 K/mm3 03/09/22 02:13 Blast Cells # 0.0 K/mm3 03/09/22 02:13 WBC Morphology Not Reportable 03/09/22 02:13 Hypersegmented Neuts Not Reportable 03/09/22 02:13 Hyposegmented Neuts Not Reportable 03/09/22 02:13 Hypogranular Neuts Not Reportable 03/09/22 02:13 Smudge Cells Not Reportable 03/09/22 02:13 Toxic Granulation Not Reportable 03/09/22 02:13 Toxic Vacuolation Not Reportable 03/09/22 02:13 Dohle Bodies Not Reportable 03/09/22 02:13 Pelger-Huet Anomaly Not Reportable 03/09/22 02:13 Marylin Rods Not Reportable 03/09/22 02:13 Platelet Estimate Consistent w auto 03/09/22 02:13 Clumped Platelets Not Reportable 03/09/22 02:13 Plt Clumps, EDTA Not Reportable 03/09/22 02:13 Large Platelets Not Reportable 03/09/22 02:13 Giant Platelets Not Reportable 03/09/22 02:13 Platelet Satelliting Not Reportable 03/09/22 02:13 Plt Morphology Comment Not Reportable 03/09/22 02:13 RBC Morphology Normal 03/09/22 02:13 Dimorphic RBCs Not Reportable 03/09/22 02:13 Polychromasia Not Reportable 03/09/22 02:13 Hypochromasia Not Reportable 03/09/22 02:13 Poikilocytosis Not Reportable 03/09/22 02:13 Anisocytosis Not Reportable 03/09/22 02:13 Microcytosis Not Reportable 03/09/22 02:13 Macrocytosis Not Reportable 03/09/22 02:13 Spherocytes Not Reportable 03/09/22 02:13 Pappenheimer Bodies Not Reportable 03/09/22 02:13 Sickle Cells Not Reportable 03/09/22 02:13 Target Cells Not Reportable 03/09/22 02:13 Tear Drop Cells Not Reportable 03/09/22 02:13 Ovalocytes Not Reportable 03/09/22 02:13 Helmet Cells Not Reportable 03/09/22 02:13 Alvarez-Snover Bodies Not Reportable 03/09/22 02:13 Weston Rings Not Reportable 03/09/22 02:13 [place] Cells Not Reportable 03/09/22 02:13 Bite Cells Not Reportable 03/09/22 02:13 Crenated Cell Not Reportable 03/09/22 02:13 Elliptocytes Not Reportable 03/09/22 02:13 Acanthocytes (Spur) Not Reportable 03/09/22 02:13 Rouleaux Not Reportable 03/09/22 02:13 Hemoglobin C Crystals Not Reportable 03/09/22 02:13 Schistocytes Not Reportable 03/09/22 02:13 Malaria parasites Not Reportable 03/09/22 02:13 Cristino Bodies Not Reportable 03/09/22 02:13 Hem Pathologist Commnt No 03/09/22 02:13 PT 15.7 Sec. (12.2-14.9) H 03/08/22 12:29 INR 1.09 (0.87-1.13) 03/08/22 12:29 ABG pH 7.433 pH Units (7.350-7.450) 03/17/22 09:00 ABG pCO2 27.6 mm Hg 03/17/22 09:00 ABG pO2 61.0 mm Hg (80.0-90.0) L 03/17/22 09:00 ABG HCO3 18.0 mmol/L (20.0-26.0) L 03/17/22 09:00 ABG O2 Saturation 98.2 % (95.0-99.0) 03/17/22 09:00 ABG O2 Content 10.9 (0.0-44) 03/13/22 16:05 ABG Base Excess -5.8 mmol/L (-2.0-3.0) L 03/17/22 09:00 ABG Hemoglobin 5.3 gm/dl (14.0-18.0) L 03/17/22 09:00 ABG Carboxyhemoglobin 1.7 % (0.0-5.0) 03/17/22 09:00 ABG Methemoglobin 0.2 % (0.0-1.5) 03/17/22 09:00 Oxyhemoglobin 96.4 % (95.0-99.0) 03/17/22 09:00 FiO2 32 % 03/17/22 09:00 Sodium 136 mmol/L (137-145) L 03/20/22 04:00 Potassium 3.6 mmol/L (3.6-5.0) 03/20/22 04:00 Chloride 105.4 mmol/L (98-107) 03/20/22 04:00 Carbon Dioxide 18 mmol/L (22-30) L 03/20/22 04:00 Anion Gap 16 mmol/L 03/20/22 04:00 BUN 33 mg/dL (9-20) H 03/20/22 04:00 Creatinine 1.8 mg/dL (0.8-1.3) H 03/20/22 04:00 Estimated GFR 46 ml/min 03/20/22 04:00 BUN/Creatinine Ratio 18 % 03/20/22 04:00 Glucose 114 mg/dL (75-100) H 03/20/22 04:00 POC Glucose 142 mg/dL (70-105) H 03/20/22 05:43 Lactic Acid 1.40 mmol/L (0.7-2.0) 03/08/22 12:29 Calcium 8.6 mg/dL (8.4-10.2) 03/20/22 04:00 Phosphorus 2.20 mg/dL (2.5-4.5) L 03/17/22 04:12 Magnesium 2.10 mg/dL (1.7-2.3) 03/17/22 04:12 Total Bilirubin 0.30 mg/dL (0.1-1.2) 03/18/22 05:17 AST 36 units/L (5-40) 03/18/22 05:17 ALT 21 units/L (7-56) 03/18/22 05:17 Alkaline Phosphatase 163 units/L (35-129) H 03/18/22 05:17 Ammonia 10.0 umol/L (25-60) L 03/13/22 19:38 Total Creatine Kinase 53 units/L (55-170) L 03/08/22 12:29 Troponin T 0.119 ng/mL (0.00-0.029) H* D 03/09/22 02:13 C-Reactive Protein 16.20 mg/dL (0.00-1.30) H 03/08/22 12:29 Total Protein 7.2 g/dL (6.3-8.2) 03/18/22 05:17 Albumin 2.1 g/dL (3.9-5) L 03/18/22 05:17 Albumin/Globulin Ratio 0.4 % 03/18/22 05:17 Triglycerides 105 mg/dL (2-149) 03/08/22 12:29 Cholesterol 136 mg/dL (50-199) 03/08/22 12:29 LDL Cholesterol Direct 76 mg/dL (50-130) 03/08/22 12:29 HDL Cholesterol 35 mg/dL (40-59) L 03/08/22 12:29 Cholesterol/HDL Ratio 3.88 % 03/08/22 12:29 PTH Intact 45.32 pg/mL (15-65) 03/11/22 03:52 Urine Color Yellow (Yellow) 03/08/22 14:38 Urine Turbidity Clear (Clear) 03/08/22 14:38 Urine pH 6.0 (5.0-7.0) 03/08/22 14:38 Ur Specific Raymond 1.015 (1.003-1.030) 03/08/22 14:38 Urine Protein 30 mg/dl mg/dL (Negative) 03/08/22 14:38 Urine Glucose (UA) Negative mg/dL (Negative) 03/08/22 14:38 Urine Ketones Negative mg/dL (Negative) 03/08/22 14:38 Urine Blood 1+ (Negative) 03/08/22 14:38 Urine Nitrite Negative (Negative) 03/08/22 14:38 Ur Reducing Substances Negative (Negative) 03/08/22 14:38 Urine Bilirubin Negative (Negative) 03/08/22 14:38 Urine Urobilinogen 0.0 mg/dL (<2.0) 03/08/22 14:38 Ur Leukocyte Esterase Negative (Negative) 03/08/22 14:38 Urine WBC (Auto) 3.0 /HPF (0.0-6.0) 03/08/22 14:38 Urine RBC (Auto) 5.0 /HPF (0.0-6.0) 03/08/22 14:38 U Epithel Cells (Auto) 3.0 /HPF (0-13.0) 03/08/22 14:38 Urine Bacteria (Auto) 1+ /HPF (Negative) 03/08/22 14:38 Hyaline Casts 2 /LPF 03/08/22 14:38 Urine Mucus 1+ /HPF 03/08/22 14:38 Urine Creatinine 167.4 mg/dL (0.1-20.0) H 03/09/22 15:25 Urine Sodium 49 mmol/L 03/09/22 15:25 Vancomycin Trough 21.1 ug/mL (5.0-20.0) H 03/19/22 15:35 Salicylates < 0.3 mg/dL (2.8-20.0) L 03/08/22 12:29 Urine Opiates Screen Negative 03/08/22 14:38 Urine Methadone Screen Negative 03/08/22 14:38 Acetaminophen 5.0 ug/mL (10.0-30.0) L 03/08/22 12:29 Ur Barbiturates Screen Negative 03/08/22 14:38 Ur Phencyclidine Scrn Negative 03/08/22 14:38 Ur Amphetamines Screen Negative 03/08/22 14:38 U Benzodiazepines Scrn Negative 03/08/22 14:38 Urine Cocaine Screen Negative 03/08/22 14:38 U Marijuana (THC) Screen Positive 03/08/22 14:38 Drugs of Abuse Note Disclamer 03/08/22 14:38 Plasma/Serum Alcohol < 0.01 % (0-0.07) 03/08/22 12:29 Syphilis IgG/IgM Ab Nonreactive (NonReactive) 03/17/22 13:16 Coronavirus (PCR) Negative (Negative) 03/17/22 09:54 HIV 1&2 Antibody Rapid Non react (Non React) 03/17/22 13:16 HIV P24 Antigen Non react (Non React) 03/17/22 13:16 Arteaga/IV: Voiding Method Indwelling Catheter Active Medications - Current Medications Current Medications: Generic Name Dose Route Start Last Admin Trade Name Freq PRN Reason Stop Dose Admin Acetaminophen 650 mg 03/08/22 20:07 03/15/22 07:13 Acetaminophen 325 Mg Tab PO 650 mg Q6H PRN Administration Pain MILD(1-3)/Fever >100.5/HILTON Albuterol 2.5 mg 03/08/22 20:07 03/17/22 08:31 Albuterol 2.5 Mg/3 Ml Nebu IH 2.5 mg Q3HRT PRN Administration Shortness Of Breath Amiodarone HCl 200 mg 03/14/22 10:00 03/20/22 10:42 Amiodarone 200 Mg Tab PO 200 mg BID FRANCESCA Administration Aspirin 81 mg 03/11/22 10:00 03/20/22 10:42 Aspirin 81 Mg Tab Chew PO 81 mg QDAY FRANCESCA Administration Atorvastatin Calcium 40 mg 03/11/22 22:00 03/19/22 21:06 Atorvastatin 40 Mg Tab PO 40 mg QHS FRANCESCA Administration Doxazosin Mesylate 4 mg 03/18/22 18:00 03/20/22 10:41 Doxazosin 4 Mg Tab PO 4 mg QDAY FRANCESCA Administration Enoxaparin Sodium 80 mg 03/14/22 10:00 03/20/22 10:43 Enoxaparin 80 Mg/0.8 Ml Inj SUB-Q 80 mg Q12HR FRANCESCA Administration Famotidine 20 mg 03/14/22 10:00 03/20/22 10:42 Famotidine 20 Mg Tab PO 20 mg DAILY FRANCESCA Administration Haloperidol Lactate 5 mg 03/10/22 18:12 03/18/22 13:17 Haloperidol Lactate 5 Mg/1 Ml Inj IV 5 mg Q6H PRN Administration Agitation Hydralazine HCl 10 mg 03/18/22 12:35 03/18/22 13:18 Hydralazine 20 Mg/1 Ml Inj IV 10 mg Q6HR PRN Administration Blood Pressure Cefepime HCl 1 gm in 100 mls @ 200 mls/hr 03/12/22 11:00 03/19/22 22:33 Cefepime/Ns 1 Gm/100 Ml IV 200 mls/hr Q12H FRANCESCA Administration Protocol Acyclovir 400 mg/ Sodium 108 mls @ 100 mls/hr 03/14/22 14:00 03/20/22 01:05 Chloride IV 100 mls/hr Q12H FRANCESCA Administration Protocol Ampicillin Sodium 2 gm in 100 mls @ 200 mls/hr 03/15/22 04:00 03/20/22 03:01 Ampicillin/Ns 2 Gm/100 Ml IV 200 mls/hr Q12H FRANCESCA Administration Protocol Sodium Chloride 1,000 mls @ 100 mls/hr 03/16/22 11:00 03/20/22 06:35 Nacl 0.45% 1000 Ml IV 25 mls/hr DIRECT FRANCESCA Administration Vancomycin HCl 1 gm in 250 mls @ 125 mls/hr 03/21/22 16:00 Vancomycin/Ns 1 Gm/250 Ml IV Q36H FRANCESCA Protocol Methotrexate 2.5 mg 03/11/22 16:00 03/18/22 18:45 Methotrexate 2.5 Mg Tab (Dose Weekly Only) PO 2.5 mg Fr FRANCESCA Administration Metoprolol Tartrate 100 mg 03/17/22 22:00 03/20/22 10:42 Metoprolol Tartrate 100 Mg Tab PO 100 mg BID FRANCESCA Administration Morphine Sulfate 2 mg 03/08/22 20:07 03/18/22 10:37 Morphine 4 Mg/1 Ml Inj IV 2 mg Q8H PRN Administration Pain , Severe (7-10) Nicotine 21 mg 03/10/22 10:00 03/20/22 10:41 Nicotine 21 Mg/24 Hr Patch TD 21 mg QDAY FRANCESCA Administration Oxycodone/Acetaminophen 1 tab 03/08/22 20:07 03/11/22 21:37 Oxycodone /Acetaminophen 5-325mg Tab PO 1 tab Q6H PRN Administration Pain, Moderate (4-6) Prednisone 10 mg 03/17/22 10:00 03/20/22 10:42 Prednisone 10 Mg Tab PO 10 mg BID FRANCESCA Administration Quetiapine Fumarate 50 mg 03/18/22 22:00 03/19/22 21:06 Quetiapine 25 Mg Tab PO 50 mg QHS FRANCESCA Administration Sodium Chloride 10 ml 03/08/22 22:00 03/19/22 21:08 Sodium Chloride 0.9% 10 Ml Flush Syringe IV 10 ml BID FRANCESCA Administration Sodium Chloride 10 ml 03/08/22 20:07 Sodium Chloride 0.9% 10 Ml Flush Syringe IV PRN PRN LINE FLUSH Tamsulosin HCl 0.4 mg 03/17/22 10:00 03/20/22 10:41 Tamsulosin 0.4 Mg Cap PO 0.4 mg QDAY FRANCESCA Administration Tramadol HCl 50 mg 03/08/22 20:11 03/14/22 15:35 Tramadol 50 Mg Tab PO 50 mg Q6H PRN Administration Pain, Moderate (4-6) Nutrition/Malnutrition Assess - Dietary Evaluation Nutrition/Malnutrition Findings: Nutrition Notes Start: 03/14/22 11:02 Freq: Status: Active Protocol: Document 03/16/22 11:12 ABDIAS (Rec: 03/16/22 11:21 ABDIAS [id number]) Nutrition Notes Initial or Follow up Brief Note Current Diagnosis Acute Kidney Injury,Sepsis, Hypertension,Stroke Other Pertinent Diagnosis NSTEMI II, Atrial Fibrilation/ RVR, Metabolic Encephalopathy, SIRS, ... Current Diet TF-Nepro w/CARBSTEADY @ 50 ml/ hr (since D 03/13). Height 6 ft Weight 73 kg [place] Body Weight (kg) 80.90 BMI 21.8 Weight change and time frame No body weight change reported in 2 days. Weight Status Appropriate Subjective/Other Information RD consult for routine F/U on TF tolerance/continuation. TF continues as prescribed, no further information available at the time. Pt is on Room Air, O2 saturation @ 94%, according to Physical Assessment History notes. Percent of energy/protein needs met: Prescribed TF-Nepro w/ CARBSTEADY @ 50 ml/hr provides for energy/protein needs (2, 180 Kcal/98 g) during LOS, 96% Kcal; 111% AA. #1 Nutrition Diagnosis Inadequate oral intake Diagnosis Progress(for reassessment Continues documentation) Is patient on ventilator? No Is Patient Ambulatory and/or Out of Bed No REE-([facility]-confined to bed) 1863.060 Kcal/Kg value to use for calculation 31 Approximate Energy Requirements Using 2263 kcal/Kg Calculation Used for Recommendations Kcal/kg Additional Notes Protein: 0.8-1.2 g/Kg ABW; 58- 88 g/day. Fluids: 1 ml/Kcal, or as per MD. Nutrition Intervention Nutrition Support: Continue TF-Nepro w/CARBSTEADY @ 50 ml/hr. Flush: 230 ml water Q 4 hr, or as per MD. Kcal 2,180 Protein (gm) 98 Carbohydrates (gm) 195 Fat (gm) 116 Fluid (mL) 880 Fiber (gm) 15 % RDI: 96% Kcal; 111% AA. Goal #1 Provide at least 75% of energy /protein needs through Enteral Feeding during LOS. Follow-Up By: 03/23/22 Additional Comments Continue monitoring TF tolerance and BM.
[2022-03-20] MEDS: CEFEPIME/NS 1 GM/100 ML 1 GM/100 ML BAG IV SCH ×2 (12:42→22:05)
[2022-03-20] MEDS: SODIUM BICARBONATE 325 MG TAB FEEDTUBE PRN ×2 (13:29→14:30)
[2022-03-20] MEDS: QUEtiapine 25 MG TAB PO SCH (21:54)
[2022-03-21] MEDS: ACYCLOVIR 400 MG in SODIUM CHLORIDE 0.9% 100 ML IV SCH (01:11)
[2022-03-21] MEDS: AMPICILLIN/NS 2 GM/100 ML 2 GM/100 ML BAG IV SCH (03:04)
[2022-03-21] MEDS: SODIUM CHLORIDE 0.45% 1000 ML 1,000 ML IV SCH (06:00)
--- NOTE | 2022-03-21 08:12 | Progress Note ---
Assessment and Plan Assessment and plan: Assessment and plan: This is a 67-year-old male with known past medical history of vascular dementia, cerebral atherosclerosis, BPH, gastric bypass, renal insufficency, HTN, tho racic aortic aneurysm without rupture, nicotine dependence, benign lungs nodules s/p LDCT, RA, and debility admitted for NSTEMI, AFib with RVR, and MARIE Hospital Course to Date: 03/09: Stable on RA, denied ay pain nor any discomfort at this time. SR with PACs noted on the monitor, VSS. Renal function mild improvement in renal function this am. Continue schedule BB for rate control and therapeutic Lovenox subQ. 2D echo pending and Cardiology consulted. Nephrology is also following. 03/10: More awake today but confused, remains stable on RA. ST with frequent PACs, VSS. Per cardio patient is most likely in MATs. 2D echo still pending, continue BB. Renal function is stable, continue current care per nephro. Nicotine patch added for increase cigarettes urges. Patient's brother provided contact for 3 providers who patient have seen in the past, medical records requested. 03/11: On amiodarone gtt per cardio. Remains in ST with PACs on the monitor, VSS. Plan to switch amio gtt, continue BB. Received records from patient's providers, medical history updated. Per records patient was on Wellbutrin for tobacco dependence but was switched to Chantix in August of this year and patient has not been seen by any of these providers since August 2021. Mental health/spych was also consulted for further eval and treat. 03/12: Patient seen and examined Case discussed with infectious disease concerning for possible sepsis chest x-ray reviewed no acute pneumonia UA without any concern for UTI. Patient does have some abdominal tenderness for which have ordered a CT abdomen and pelvis with oral contrast to further evaluate. We will monitor for worsening renal function as patient has a baseline CKD. Unfortunately due to this cannot get IV contrast. ID started the patient on cefepime 1 g every 12 hours while we will monitor. In the meantime patient can be transferred to telemetry continues on amiodarone p.o. for A. fib. Remains critically ill at this time. 03/13: Patient seen and examined, more lethargic today, May need NGT for Tube feeds if not improving. CTAP was unremarkable. Will start on fluids, cultures remains negative, low grade temp noted. May need LP if no improvement in am. UDS positive for THC on 03/08 No family present. Lady friend visited yesterday, not sure relationship to discuss his clinical condition. Received rispiradone but was already with similar lethargy at the time. 03/14: Patient seen and examined more awake today compared to yesterday but still not following any commands. CT head is negative.. ID broadened antibiotics and recommended lumbar puncture as there is no explanation as to the patient's a ltered mental status that has remained persistent. Again patient was given Ativan a few days ago for CT although that his mental status was still altered he was at least conversational. Lumbar puncture could not be performed today because the patient was moving around a lot. I am avoiding giving a repeat Ativan as I believe that this may have contributed to this recent change. We will await a.m. on reevaluation. NG tube has been placed patient tolerating diet through that. Will need some rehab prior to discharge when clinically improved. Creatinine remains 2.0 we will continue to monitor and trend. Nephrology input appreciated. Due to broaden antibiotics we will start on gentle hydration for renal protection purposes. Again as mentioned I updated patient's brother yesterday who will call back to let us know if the patient's longstanding girlfriend can make decisions. 03/15: Patient seen today. Off to radiology suite for LP. Will follow CSF analysis ordered. Continue tx with vancomycin/cefepime/ampicillin/acylcovir. Per RN, this AM patient was able to recite name and answer some yes/no questions. Will need reassessment tomorrow for mental status. Will need continued PT/OT. 03/16: Remains AOX 1 however is confused. Follows commands but not able to answer further line of questioning. Unclear if this is patinet's baseline as he does have a documented history of dementia in chart. PT/OT recommend MARIBELL. Will need continued assessments. Continue therapy with vanc/cefepime/ampicillin/acyclovir per ID direction. 03/17: Tachypneic and in respiratory distress this AM. Stat CXR and abg ordered. CXR appears to demonstrate patchy airspace disease in mid/upper lung field. COVID PCR sent. Lasix 40 mg IV x 1 ordered. Breathing treatment admin. Talked to patient brother Alfonzo Johnson [phone]. Updated on patient care. Per brother, patient has been declining for approximatley 1 mo prior to admission. He was becoming increasingly lethargic and confused. Patient would simply lay in bed and have difficulties completing ADL's. He was frequently i ncontinent in bed. Pt brother had tried to convince brother to present to ED sooner but Pt would refuse. LP unfortunately has been unable to be completed at this point due to patient aggitation/confusion and inability to lay still. Diagnostic yield of LP would likely be low at this point given his empiric therapy for meningitis. MRI brain would be useful but again given aggitation/confusion would be difficult to perform properly. When patient becomes more clinically stable, may reattempt this. EEG is still pending. Ordered workup for HIV, syphilis, HSV. May need to consider autoimmune etiology as patient does have a history of rheumatoid arthritis. may consider short course of pulse steroids in future. Will continue to follow subspecialist recommendations. 03/18: NG pulled overnight. However, patient is more oriented, alert this AM (able to recite name, brothers name, answer simple yes/no questioning). Plan for ST eval today. Will attempt MRI brain w/o con. Leukocytosis inc to 17K. No fevers noted overnight. Patient respiratory status improved with diuresis, however renal function worsened. Will stop lasix. Continue strict I/O monitoring. 03/19: Continued improvement in mental status. Patient was able to recent the year, his name, brother's name. He asked why he was in the hospital (which he clearly recognized). He does remain lethargic and at continued risk for aspiration. ST evaluation notes that patient is still aspiration risk. Will follow final recommendations, patient may need a PEG tube. MRI brain was negative for acute findings however there are findings of advanced diffuse cerebral atrophy, more prominent than a normal study for someone his age. There is some concern for Alzheimer's disease or Pick's Disease. Will discuss findings with patient brother. 03/20: Able to answer questions. Alert, orientation fluctuates but knows name and some distant facts (brothers name etc). no speech therapy at hospital today, will await for reassessment of swallowing to assess aspiratoin risk prior to consultation to GI. called brothers Alfonzo and Michael and updated on patient clinical status. Ultimately, I explained that pt likely has advanced dementia and doubt there is any metabolic or infectious etiology. I stated that I would discuss with our subspecialists to see if other etiologies could be possible. Ultimately patient disposition is SNF. CM has already made referrals to [facility]. 03/21: More drowsy this AM. D/w ID, ok to d/c abx as patient has completed therapy for aspiration pneumonia. Additionally, no meningeal enchancement seen on MRI, ok to d/c abx. Patient accepted at [facility]. Will await final speech evaluation to see if patient remains aspiration risk. Will see if patient will require PEG tube. 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 #Acute hypoxic respiratory failure #Pulmonary Edema #NSTEMI (non-ST elevated myocardial infarction) #New Onset Atrial Fibrillation with RVR #Hypertension - Presented with AMS, found in AFib with RVR in the ED with elevated troponin - No report of previous Afib history, most likely new onset - Troponin downtrending - Per patient's brother patient sees a PCP in [place], however patient has been refusing to go to the doctor - s/p Chey gtt - Cardiology consulted, appreciate recommendations - Patient is ST with PACs on the monitor. Per cardio most likely MATs. Patient denied any chest pain, VSS - On Amiodarone gtt, plan to switch to PO today - Continue BB and therapeutic Lovenox - 2D Echo noted, EF 25-30% - Continue blood pressure monitor per protocol - Maintain SBP less than 160 - respiratory distress on 03/17, cxr demonstrated pulmonary edema. Diuresed with lasix (now d/c). maintain strict I/O. D/c IVF. hydration via NG or po if possible. #Acute kidney injury(MARIE) due to vasomotor nephropathy (stable) - Baseline renal function is unknown, most likely prerenal secondary to above - Renal function remains stable - Neprology consulted, appreciated recommendations - Strict intake and output - Avoid nephrotoxic medications; Renally dose medications - Monitor and replace electrolytes as needed #SIRS (Systemic Inflammatory Response Syndrome)/Sepsis - Presented with leukocytosis and tachycardia, but afebrile - X1 dose of Empiric IV antibiotic given in the ED - UA unremakarble, Blood cultures with NGTD - Patient remains afebrile, leukocytosis improved - Will continue to monitor for now - F/u on cultures #Severe Arthritis #Debility - Supportive measures - PRN analgesia for pain control - PT/OT consulted - resumed home methotrexate and prednisone #Nicotine Dependence #THC - Per patient he smoke at least a pack a day - Was initially on wellbutrin at home, but was switched to Chantix back in August - smoking cessation education provided. Patient verbalized understanding and agreed with the info provided - Nicotine qDay - Mental/Psych consulted for further eval #GI/DVT Prophylaxis - PPI- Pepcid - Lovenox SubQ - SCDs bilateral lower extremities while in bed, #Advance Care Planning - Disease education data, care plan, diagnoses, and prognosis were discussed with patient and patient's brother at the bedside. Patient is a FULL code. They acknowledged understanding and agreed with current care plan. History Interval history: More drowsy this AM on encounter. Hospitalist Physical - Physical exam Narrative exam: Physical Exam: Constitutional: drowsy Head, Ears, Nose: Normocephalic, atraumatic. External ears, nose normal Eyes: Conjunctivae/corneas clear. No icterus. No ptosis. Neck: Supple, no meningeal signs Cardiovascular: S1, S2 + Respiratory: Good air entry, clear to auscultation bilaterally GI: Seems to have some abdominal guarding, Arteaga present, bowel sounds + Musculoskeletal: No pedal edema, no cyanosis. Skin: No rash or abscess Hem/Lymphatic: No palpable cervical or supraclavicular nodes. No lymphangitis Psych: more alert Neurological: more drowsy. AOX 2 at least. Slow cognition however able to acc urately give brother's name and answer simple yes/no questions. - Constitutional Vitals: Temp Pulse Resp BP Pulse Ox 98.0 F 84 18 171/80 90 03/21/22 07:27 03/21/22 07:27 03/21/22 07:27 03/21/22 07:27 03/21/22 07:27 General appearance: Present: no acute distress, well-nourished, obese HEART Score - HEART Score Troponin: Troponin T 0.119 ng/mL (0.00-0.029) H* D 03/09/22 02:13 Results - Labs CBC & Chem 7: 03/21/22 08:48 03/21/22 08:48 Labs: Laboratory Last Values WBC 14.5 K/mm3 (4.5-11.0) H 03/20/22 04:00 RBC 3.09 M/mm3 (3.65-5.03) L 03/20/22 04:00 Hgb 7.6 gm/dl (11.8-15.2) L 03/20/22 04:00 Hct 24.6 % (35.5-45.6) L 03/20/22 04:00 MCV 80 fl (84-94) L 03/20/22 04:00 MCH 25 pg (28-32) L 03/20/22 04:00 MCHC 31 % (32-34) L 03/20/22 04:00 RDW 17.2 % (13.2-15.2) H 03/20/22 04:00 Plt Count 366 K/mm3 (140-440) 03/20/22 04:00 Lymph % (Auto) 6.5 % (13.4-35.0) L 03/20/22 04:00 Isabela % (Auto) 3.3 % (0.0-7.3) 03/20/22 04:00 Eos % (Auto) 0.5 % (0.0-4.3) 03/20/22 04:00 Baso % (Auto) 0.2 % (0.0-1.8) 03/20/22 04:00 Lymph # (Auto) 0.9 K/mm3 (1.2-5.4) L 03/20/22 04:00 Isabela # (Auto) 0.5 K/mm3 (0.0-0.8) 03/20/22 04:00 Eos # (Auto) 0.1 K/mm3 (0.0-0.4) 03/20/22 04:00 Baso # (Auto) 0.0 K/mm3 (0.0-0.1) 03/20/22 04:00 Add Manual Diff Complete 03/09/22 02:13 Total Counted 100 03/09/22 02:13 Seg Neutrophils % 89.5 % (40.0-70.0) H 03/20/22 04:00 Seg Neuts % (Manual) 80.0 % (40.0-70.0) H 03/09/22 02:13 Band Neutrophils % 0 % 03/09/22 02:13 Lymphocytes % (Manual) 11.0 % (13.4-35.0) L 03/09/22 02:13 Reactive Lymphs % (Man) 0 % 03/09/22 02:13 Monocytes % (Manual) 8.0 % (0.0-7.3) H 03/09/22 02:13 Eosinophils % (Manual) 1.0 % (0.0-4.3) 03/09/22 02:13 Basophils % (Manual) 0 % (0.0-1.8) 03/09/22 02:13 Metamyelocytes % 0 % 03/09/22 02:13 Myelocytes % 0 % 03/09/22 02:13 Promyelocytes % 0 % 03/09/22 02:13 Blast Cells % 0 % 03/09/22 02:13 Nucleated RBC % Not Reportable 03/09/22 02:13 Seg Neutrophils # 13.0 K/mm3 (1.8-7.7) H 03/20/22 04:00 Seg Neutrophils # Man 8.5 K/mm3 (1.8-7.7) H 03/09/22 02:13 Band Neutrophils # 0.0 K/mm3 03/09/22 02:13 Lymphocytes # (Manual) 1.2 K/mm3 (1.2-5.4) 03/09/22 02:13 Abs React Lymphs (Man) 0.0 K/mm3 03/09/22 02:13 Monocytes # (Manual) 0.8 K/mm3 (0.0-0.8) 03/09/22 02:13 Eosinophils # (Manual) 0.1 K/mm3 (0.0-0.4) 03/09/22 02:13 Basophils # (Manual) 0.0 K/mm3 (0.0-0.1) 03/09/22 02:13 Metamyelocytes # 0.0 K/mm3 03/09/22 02:13 Myelocytes # 0.0 K/mm3 03/09/22 02:13 Promyelocytes # 0.0 K/mm3 03/09/22 02:13 Blast Cells # 0.0 K/mm3 03/09/22 02:13 WBC Morphology Not Reportable 03/09/22 02:13 Hypersegmented Neuts Not Reportable 03/09/22 02:13 Hyposegmented Neuts Not Reportable 03/09/22 02:13 Hypogranular Neuts Not Reportable 03/09/22 02:13 Smudge Cells Not Reportable 03/09/22 02:13 Toxic Granulation Not Reportable 03/09/22 02:13 Toxic Vacuolation Not Reportable 03/09/22 02:13 Dohle Bodies Not Reportable 03/09/22 02:13 Pelger-Huet Anomaly Not Reportable 03/09/22 02:13 Marylin Rods Not Reportable 03/09/22 02:13 Platelet Estimate Consistent w auto 03/09/22 02:13 Clumped Platelets Not Reportable 03/09/22 02:13 Plt Clumps, EDTA Not Reportable 03/09/22 02:13 Large Platelets Not Reportable 03/09/22 02:13 Giant Platelets Not Reportable 03/09/22 02:13 Platelet Satelliting Not Reportable 03/09/22 02:13 Plt Morphology Comment Not Reportable 03/09/22 02:13 RBC Morphology Normal 03/09/22 02:13 Dimorphic RBCs Not Reportable 03/09/22 02:13 Polychromasia Not Reportable 03/09/22 02:13 Hypochromasia Not Reportable 03/09/22 02:13 Poikilocytosis Not Reportable 03/09/22 02:13 Anisocytosis Not Reportable 03/09/22 02:13 Microcytosis Not Reportable 03/09/22 02:13 Macrocytosis Not Reportable 03/09/22 02:13 Spherocytes Not Reportable 03/09/22 02:13 Pappenheimer Bodies Not Reportable 03/09/22 02:13 Sickle Cells Not Reportable 03/09/22 02:13 Target Cells Not Reportable 03/09/22 02:13 Tear Drop Cells Not Reportable 03/09/22 02:13 Ovalocytes Not Reportable 03/09/22 02:13 Helmet Cells Not Reportable 03/09/22 02:13 Alvarez[place] Bodies Not Reportable 03/09/22 02:13 Hancock Rings Not Reportable 03/09/22 02:13 [place] Cells Not Reportable 03/09/22 02:13 Bite Cells Not Reportable 03/09/22 02:13 Crenated Cell Not Reportable 03/09/22 02:13 Elliptocytes Not Reportable 03/09/22 02:13 Acanthocytes (Spur) Not Reportable 03/09/22 02:13 Rouleaux Not Reportable 03/09/22 02:13 Hemoglobin C Crystals Not Reportable 03/09/22 02:13 Schistocytes Not Reportable 03/09/22 02:13 Malaria parasites Not Reportable 03/09/22 02:13 Cristino Bodies Not Reportable 03/09/22 02:13 Hem Pathologist Commnt No 03/09/22 02:13 PT 15.7 Sec. (12.2-14.9) H 03/08/22 12:29 INR 1.09 (0.87-1.13) 03/08/22 12:29 ABG pH 7.433 pH Units (7.350-7.450) 03/17/22 09:00 ABG pCO2 27.6 mm Hg 03/17/22 09:00 ABG pO2 61.0 mm Hg (80.0-90.0) L 03/17/22 09:00 ABG HCO3 18.0 mmol/L (20.0-26.0) L 03/17/22 09:00 ABG O2 Saturation 98.2 % (95.0-99.0) 03/17/22 09:00 ABG O2 Content 10.9 (0.0-44) 03/13/22 16:05 ABG Base Excess -5.8 mmol/L (-2.0-3.0) L 03/17/22 09:00 ABG Hemoglobin 5.3 gm/dl (14.0-18.0) L 03/17/22 09:00 ABG Carboxyhemoglobin 1.7 % (0.0-5.0) 03/17/22 09:00 ABG Methemoglobin 0.2 % (0.0-1.5) 03/17/22 09:00 Oxyhemoglobin 96.4 % (95.0-99.0) 03/17/22 09:00 FiO2 32 % 03/17/22 09:00 Sodium 136 mmol/L (137-145) L 03/20/22 04:00 Potassium 3.6 mmol/L (3.6-5.0) 03/20/22 04:00 Chloride 105.4 mmol/L (98-107) 03/20/22 04:00 Carbon Dioxide 18 mmol/L (22-30) L 03/20/22 04:00 Anion Gap 16 mmol/L 03/20/22 04:00 BUN 33 mg/dL (9-20) H 03/20/22 04:00 Creatinine 1.8 mg/dL (0.8-1.3) H 03/20/22 04:00 Estimated GFR 46 ml/min 03/20/22 04:00 BUN/Creatinine Ratio 18 % 03/20/22 04:00 Glucose 114 mg/dL (75-100) H 03/20/22 04:00 POC Glucose 121 mg/dL (70-105) H 03/21/22 05:29 Lactic Acid 1.40 mmol/L (0.7-2.0) 03/08/22 12:29 Calcium 8.6 mg/dL (8.4-10.2) 03/20/22 04:00 Phosphorus 2.20 mg/dL (2.5-4.5) L 03/17/22 04:12 Magnesium 2.10 mg/dL (1.7-2.3) 03/17/22 04:12 Total Bilirubin 0.30 mg/dL (0.1-1.2) 03/18/22 05:17 AST 36 units/L (5-40) 03/18/22 05:17 ALT 21 units/L (7-56) 03/18/22 05:17 Alkaline Phosphatase 163 units/L (35-129) H 03/18/22 05:17 Ammonia 10.0 umol/L (25-60) L 03/13/22 19:38 Total Creatine Kinase 53 units/L (55-170) L 03/08/22 12:29 Troponin T 0.119 ng/mL (0.00-0.029) H* D 03/09/22 02:13 C-Reactive Protein 16.20 mg/dL (0.00-1.30) H 03/08/22 12:29 Total Protein 7.2 g/dL (6.3-8.2) 03/18/22 05:17 Albumin 2.1 g/dL (3.9-5) L 03/18/22 05:17 Albumin/Globulin Ratio 0.4 % 03/18/22 05:17 Triglycerides 105 mg/dL (2-149) 03/08/22 12:29 Cholesterol 136 mg/dL (50-199) 03/08/22 12:29 LDL Cholesterol Direct 76 mg/dL (50-130) 03/08/22 12:29 HDL Cholesterol 35 mg/dL (40-59) L 03/08/22 12:29 Cholesterol/HDL Ratio 3.88 % 03/08/22 12:29 PTH Intact 45.32 pg/mL (15-65) 03/11/22 03:52 Urine Color Yellow (Yellow) 03/08/22 14:38 Urine Turbidity Clear (Clear) 03/08/22 14:38 Urine pH 6.0 (5.0-7.0) 03/08/22 14:38 Ur Specific [place] 1.015 (1.003-1.030) 03/08/22 14:38 Urine Protein 30 mg/dl mg/dL (Negative) 03/08/22 14:38 Urine Glucose (UA) Negative mg/dL (Negative) 03/08/22 14:38 Urine Ketones Negative mg/dL (Negative) 03/08/22 14:38 Urine Blood 1+ (Negative) 03/08/22 14:38 Urine Nitrite Negative (Negative) 03/08/22 14:38 Ur Reducing Substances Negative (Negative) 03/08/22 14:38 Urine Bilirubin Negative (Negative) 03/08/22 14:38 Urine Urobilinogen 0.0 mg/dL (<2.0) 03/08/22 14:38 Ur Leukocyte Esterase Negative (Negative) 03/08/22 14:38 Urine WBC (Auto) 3.0 /HPF (0.0-6.0) 03/08/22 14:38 Urine RBC (Auto) 5.0 /HPF (0.0-6.0) 03/08/22 14:38 U Epithel Cells (Auto) 3.0 /HPF (0-13.0) 03/08/22 14:38 Urine Bacteria (Auto) 1+ /HPF (Negative) 03/08/22 14:38 Hyaline Casts 2 /LPF 03/08/22 14:38 Urine Mucus 1+ /HPF 03/08/22 14:38 Urine Creatinine 167.4 mg/dL (0.1-20.0) H 03/09/22 15:25 Urine Sodium 49 mmol/L 03/09/22 15:25 Vancomycin Trough 21.1 ug/mL (5.0-20.0) H 03/19/22 15:35 Salicylates < 0.3 mg/dL (2.8-20.0) L 03/08/22 12:29 Urine Opiates Screen Negative 03/08/22 14:38 Urine Methadone Screen Negative 03/08/22 14:38 Acetaminophen 5.0 ug/mL (10.0-30.0) L 03/08/22 12:29 Ur Barbiturates Screen Negative 03/08/22 14:38 Ur Phencyclidine Scrn Negative 03/08/22 14:38 Ur Amphetamines Screen Negative 03/08/22 14:38 U Benzodiazepines Scrn Negative 03/08/22 14:38 Urine Cocaine Screen Negative 03/08/22 14:38 U Marijuana (THC) Screen Positive 03/08/22 14:38 Drugs of Abuse Note Disclamer 03/08/22 14:38 Plasma/Serum Alcohol < 0.01 % (0-0.07) 03/08/22 12:29 Syphilis IgG/IgM Ab Nonreactive (NonReactive) 03/17/22 13:16 Coronavirus (PCR) Negative (Negative) 03/17/22 09:54 HIV 1&2 Antibody Rapid Non react (Non React) 03/17/22 13:16 HIV P24 Antigen Non react (Non React) 03/17/22 13:16 Arteaga/IV: Voiding Method Indwelling Catheter Active Medications - Current Medications Current Medications: Generic Name Dose Route Start Last Admin Trade Name Freq PRN Reason Stop Dose Admin Acetaminophen 650 mg 03/08/22 20:07 03/15/22 07:13 Acetaminophen 325 Mg Tab PO 650 mg Q6H PRN Administration Pain MILD(1-3)/Fever >100.5/HILTON Albuterol 2.5 mg 03/08/22 20:07 03/17/22 08:31 Albuterol 2.5 Mg/3 Ml Nebu IH 2.5 mg Q3HRT PRN Administration Shortness Of Breath Amiodarone HCl 200 mg 03/14/22 10:00 03/20/22 21:54 Amiodarone 200 Mg Tab PO 200 mg BID FRANCESCA Administration Aspirin 81 mg 03/11/22 10:00 03/20/22 10:42 Aspirin 81 Mg Tab Chew PO 81 mg QDAY FRANCESCA Administration Atorvastatin Calcium 40 mg 03/11/22 22:00 03/20/22 21:54 Atorvastatin 40 Mg Tab PO 40 mg QHS FRANCESCA Administration Doxazosin Mesylate 4 mg 03/18/22 18:00 03/20/22 10:41 Doxazosin 4 Mg Tab PO 4 mg QDAY FRANCESCA Administration Enoxaparin Sodium 80 mg 03/14/22 10:00 03/20/22 21:54 Enoxaparin 80 Mg/0.8 Ml Inj SUB-Q 80 mg Q12HR FRANCESCA Administration Famotidine 20 mg 03/14/22 10:00 03/20/22 10:42 Famotidine 20 Mg Tab PO 20 mg DAILY FRANCESCA Administration Haloperidol Lactate 5 mg 03/10/22 18:12 03/18/22 13:17 Haloperidol Lactate 5 Mg/1 Ml Inj IV 5 mg Q6H PRN Administration Agitation Hydralazine HCl 10 mg 03/18/22 12:35 03/18/22 13:18 Hydralazine 20 Mg/1 Ml Inj IV 10 mg Q6HR PRN Administration Blood Pressure Cefepime HCl 1 gm in 100 mls @ 200 mls/hr 03/12/22 11:00 03/20/22 22:05 Cefepime/Ns 1 Gm/100 Ml IV 200 mls/hr Q12H FRANCESCA Administration Protocol Acyclovir 400 mg/ Sodium 108 mls @ 100 mls/hr 03/14/22 14:00 03/21/22 01:11 Chloride IV 100 mls/hr Q12H FRANCESCA Administration Protocol Ampicillin Sodium 2 gm in 100 mls @ 200 mls/hr 03/15/22 04:00 03/21/22 03:04 Ampicillin/Ns 2 Gm/100 Ml IV 200 mls/hr Q12H FRANCESCA Administration Protocol Sodium Chloride 1,000 mls @ 100 mls/hr 03/16/22 11:00 03/21/22 06:00 Nacl 0.45% 1000 Ml IV 25 mls/hr DIRECT FRANCESCA Administration Vancomycin HCl 1 gm in 250 mls @ 125 mls/hr 03/21/22 16:00 Vancomycin/Ns 1 Gm/250 Ml IV Q36H FRANCESCA Protocol Methotrexate 2.5 mg 03/11/22 16:00 03/18/22 18:45 Methotrexate 2.5 Mg Tab (Dose Weekly Only) PO 2.5 mg Fr FRANCESCA Administration Metoprolol Tartrate 100 mg 03/17/22 22:00 03/20/22 21:53 Metoprolol Tartrate 100 Mg Tab PO 100 mg BID FRANCESCA Administration Morphine Sulfate 2 mg 03/08/22 20:07 03/18/22 10:37 Morphine 4 Mg/1 Ml Inj IV 2 mg Q8H PRN Administration Pain , Severe (7-10) Nicotine 21 mg 03/10/22 10:00 03/20/22 10:41 Nicotine 21 Mg/24 Hr Patch TD 21 mg QDAY FRANCESCA Administration Oxycodone/Acetaminophen 1 tab 03/08/22 20:07 03/11/22 21:37 Oxycodone /Acetaminophen 5-325mg Tab PO 1 tab Q6H PRN Administration Pain, Moderate (4-6) Prednisone 10 mg 03/17/22 10:00 03/20/22 21:53 Prednisone 10 Mg Tab PO 10 mg BID FRANCESCA Administration Quetiapine Fumarate 50 mg 03/18/22 22:00 03/20/22 21:54 Quetiapine 25 Mg Tab PO 50 mg QHS FRANCESCA Administration Sodium Bicarbonate 325 mg 03/20/22 13:20 03/20/22 14:30 Sodium Bicarbonate 325 Mg Tab FEEDTUBE 325 mg PRN PRN Administration For Clogged Feeding Tube Sodium Chloride 10 ml 03/08/22 22:00 03/20/22 21:55 Sodium Chloride 0.9% 10 Ml Flush Syringe IV 10 ml BID FRANCESCA Administration Sodium Chloride 10 ml 03/08/22 20:07 Sodium Chloride 0.9% 10 Ml Flush Syringe IV PRN PRN LINE FLUSH Tamsulosin HCl 0.4 mg 03/17/22 10:00 03/20/22 10:41 Tamsulosin 0.4 Mg Cap PO 0.4 mg QDAY FRANCESCA Administration Tramadol HCl 50 mg 03/08/22 20:11 03/14/22 15:35 Tramadol 50 Mg Tab PO 50 mg Q6H PRN Administration Pain, Moderate (4-6) Nutrition/Malnutrition Assess - Dietary Evaluation Nutrition/Malnutrition Findings: Nutrition Notes Start: 03/14/22 11:02 Freq: Status: Active Protocol: Document 03/16/22 11:12 ABDIAS (Rec: 03/16/22 11:21 ABDIAS [id number]) Nutrition Notes Initial or Follow up Brief Note Current Diagnosis Acute Kidney Injury,Sepsis, Hypertension,Stroke Other Pertinent Diagnosis NSTEMI II, Atrial Fibrilation/ RVR, Metabolic Encephalopathy, SIRS, ... Current Diet TF-Nepro w/CARBSTEADY @ 50 ml/ hr (since D 03/13). Height 6 ft Weight 73 kg [place] Body Weight (kg) 80.90 BMI 21.8 Weight change and time frame No body weight change reported in 2 days. Weight Status Appropriate Subjective/Other Information RD consult for routine F/U on TF tolerance/continuation. TF continues as prescribed, no further information available at the time. Pt is on Room Air, O2 saturation @ 94%, according to Physical Assessment History notes. Percent of energy/protein needs met: Prescribed TF-Nepro w/ CARBSTEADY @ 50 ml/hr provides for energy/protein needs (2, 180 Kcal/98 g) during LOS, 96% Kcal; 111% AA. #1 Nutrition Diagnosis Inadequate oral intake Diagnosis Progress(for reassessment Continues documentation) Is patient on ventilator? No Is Patient Ambulatory and/or Out of Bed No REE-([facility]-confined to bed) 1863.060 Kcal/Kg value to use for calculation 31 Approximate Energy Requirements Using 2263 kcal/Kg Calculation Used for Recommendations Kcal/kg Additional Notes Protein: 0.8-1.2 g/Kg ABW; 58- 88 g/day. Fluids: 1 ml/Kcal, or as per MD. Nutrition Intervention Nutrition Support: Continue TF-Nepro w/CARBSTEADY @ 50 ml/hr. Flush: 230 ml water Q 4 hr, or as per MD. Kcal 2,180 Protein (gm) 98 Carbohydrates (gm) 195 Fat (gm) 116 Fluid (mL) 880 Fiber (gm) 15 % RDI: 96% Kcal; 111% AA. Goal #1 Provide at least 75% of energy /protein needs through Enteral Feeding during LOS. Follow-Up By: 03/23/22 Additional Comments Continue monitoring TF tolerance and BM.
[2022-03-21 09:22] LABS: Basophils % (Auto) 0.2 % (0.0-1.8); Eosinophils % (Auto) 0.2 % (0.0-4.3); Hematocrit 23.6 % (35.5-45.6); Hemoglobin 7.4 gm/dl (11.8-15.2); Lymphocytes % (Auto) 6.8 % (13.4-35.0); Mean Corpuscular HGB Conc 32 % (32-34); Mean Corpuscular Volume 79 fl (84-94); Monocytes # (Auto) 0.4 K/mm3 (0.0-0.8); Platelet Count 371 K/mm3 (140-440); Red Blood Count 2.98 M/mm3 (3.65-5.03); Red Cell Distribution Width 16.8 % (13.2-15.2)
[2022-03-21 09:40] LABS: Calcium 8.3 mg/dL (8.4-10.2)
--- NOTE | 2022-03-21 10:36 | Progress Note ---
Assessment and Plan Patient is a 67-year-old male with a reported past medical history of vascular dementia, cerebral atherosclerosis, BPH, hypertension, nicotine dependence who presented to the ED yesterday for complaint of AMS x2. Altered mental status NSTEMI suspect type II MARIE Leukocytosis A. fib Hypertension Vascular dementia Echo 03/09/2022-EF 25 to 30%. Severe global hypokinesis of left ventricle. Moderate concentric LVH. Mild diastolic dysfunction is present impaired relaxation pattern. Moderate aortic regurgitation. No pericardial effusion Plan: Conservative cardiac mgmt recommended in light of mental status Telemetry reviewed patient currently in sinus rhythm Continue to Amio 200mg PO BID,and metoprolol 100mg PO BID Continue anticoagulation with Lovenox. Will hold NATALYA and ARB due to elevated creatinine and documented allergy Due to mental status patient may need PEG placement Pt is a non-modifiable risk CV pt awaiting intervention for PEG. RCRI class is III (2 points, 10.1% risk of MACE). In the absence however of ischemic cardiac symptoms or acutely decompensated HF, there are no contraindications to intervention at this time from a CV standpoint. Pt seen in conjunction with Dr. Anaya, who agrees with the assessment and plan of care - Patient Problems (1) Acute kidney injury (MARIE) with acute tubular necrosis (ATN) Current Visit: Yes Status: Acute (2) Altered mental status Current Visit: Yes Status: Acute (3) Atrial fibrillation with RVR Current Visit: Yes Status: Acute (4) CKD (chronic kidney disease) Current Visit: Yes Status: Acute (5) Cerebral atherosclerosis Current Visit: Yes Status: Chronic (6) Elevated troponin Current Visit: Yes Status: Acute (7) NSTEMI (non-ST elevated myocardial infarction) Current Visit: Yes Status: Acute (8) SIRS (systemic inflammatory response syndrome) Current Visit: Yes Status: Acute (9) Vascular dementia Current Visit: Yes Status: Chronic Qualifiers: Dementia behavioral disturbance: with behavioral disturbance Qualified Code(s): F01.51 - Vascular dementia with behavioral disturbance (10) Weakness Current Visit: Yes Status: Acute Subjective Date of service: 03/21/22 Principal diagnosis: NSTEMI ?Type 2 [place] Interval history: Patient in bed in no acute distress. Patient remains with altered mental status. Patient with NG tube sinus 80s on monitor Objective Vital Signs Temp Pulse Resp BP BP Pulse Ox 03/21/22 07:27 98.0 F 84 18 171/80 90 08/15/22 04:08 98.2 F 78 18 143/83 98 03/21/22 02:00 67 03/20/22 22:00 100 03/20/22 19:45 97 03/20/22 19:40 98.2 F 75 18 119/71 100 03/20/22 12:35 97.7 F 67 18 117/75 100 03/20/22 10:42 72 - Physical Examination General: No Apparent Distress HEENT: Positive: Normocephaly, Mucus Membranes Dry Neck: Positive: trachea midline. Negative: JVD/HJR Cardiac: Positive: Reg Rate and Rhythm Lungs: Positive: Rales Neuro: Positive: Grossly Intact Abdomen: Positive: Soft Skin: Negative: Rash Extremities: Present: warm. Absent: edema - Labs and Meds CBC 03/20/22 03/21/22 Range/Units 04:00 08:48 WBC 14.5 H 14.5 H (4.5-11.0) K/mm3 RBC 3.09 L 2.98 L (3.65-5.03) M/mm3 Hgb 7.6 L 7.4 L (11.8-15.2) gm/dl Hct 24.6 L 23.6 L (35.5-45.6) % Plt Count 366 371 (140-440) K/mm3 Lymph # (Auto) 0.9 L 1.0 L (1.2-5.4) K/mm3 [place] # (Auto) 0.5 0.4 (0.0-0.8) K/mm3 Eos # (Auto) 0.1 0.0 (0.0-0.4) K/mm3 Baso # (Auto) 0.0 0.0 (0.0-0.1) K/mm3 Comprehensive Metabolic Panel 03/20/22 03/21/22 Range/Units 04:00 08:48 Sodium 136 L 135 L (137-145) mmol/L Potassium 3.6 3.8 (3.6-5.0) mmol/L Chloride 105.4 104.7 (98-107) mmol/L Carbon Dioxide 18 L 16 L (22-30) mmol/L BUN 33 H 34 H (9-20) mg/dL Creatinine 1.8 H 1.9 H (0.8-1.3) mg/dL Glucose 114 H 126 H (75-100) mg/dL Calcium 8.6 8.3 L (8.4-10.2) mg/dL - Imaging and Cardiology EKG: report reviewed, image reviewed Echo: report reviewed - Telemetry EKG Rhythm: Sinus Rhythm - EKG Sinus rhythms and dysrhythmias: sinus rhythm Ventricular dysrhythmias: ventricular premature com Myocardial infarction: septal OR (old age or ind, anterior OR (old age or i - Allied health notes Allied health notes reviewed: nursing
--- NOTE | 2022-03-21 11:19 | Progress Note ---
Assessment and Plan Cultures: 03/08/2022 blood culture: No growth Syphilis screen: Nonreactive HIV: Nonreactive A/P: 67-year-old male with vascular dementia, prior CVA, BPH, hypertension, smoking history was admitted with confusion, altered mental status: #SIRS/sepsis: Has leukocytosis, thrombocytosis, low grade fever. Chest x-ray without any pneumonia, UA without any concerns for UTI. Did have an indwelling Arte[place], some abdominal guarding. Poor historian. No concerning skin wounds. CT abdomen and pelvis without contrast did not reveal any acute abnormality. #Bilateral pneumonia, likely aspiration pneumonia #MARIE: Renally adjust antibiotics. #Rheumatoid arthritis: On methotrexate, chronic steroids. #Elevated troponin: Seen by cardiology, suspected type II NSTEMI. TTE shows EF of 25 to 30%. #Acute encephalopathy: CT head without acute abnormality. Also urinary tox screen positive for THC. Mental status seems to fluctuate. Brain MRI showed extensive atrophy with no acute abnormality. No evidence of brain abscess or any meningeal enhancement. Was unable to get an LP. #Tobacco abuse Recs: -Brain MRI showed extensive atrophy with no acute abnormality. No evidence of brain abscess or any meningeal enhancement. -has completed treatment for aspiration pneumonia, will d/c abx and monitor Juanis Greco MD, FACP, [facility] O: [phone] F: [phone] C: [phone] Subjective Date of service: 03/21/22 Principal diagnosis: NSTEMI ?Type 2 [place] Interval history: Afebrile. Drowsy. Mental status seems to fluctuate. Brain MRI showed extensive atrophy with no acute abnormality. No evidence of brain abscess or any meningeal enhancement. Objective - Exam Narrative Exam: Physical Exam: Constitutional: drowsy Head, Ears, Nose: Normocephalic, atraumatic. External ears, nose normal Eyes: Conjunctivae/corneas clear. No icterus. No ptosis. Neck: Supple, no meningeal signs Cardiovascular: S1, S2 + Respiratory: AE fair b/l, mainly clear GI: Arte[place] present, bowel sounds + Musculoskeletal: No pedal edema, no cyanosis. Skin: No rash or abscess Hem/Lymphatic: No palpable cervical or supraclavicular nodes. No lymphangitis Psych: drowsy Neurological: drowsy - Constitutional Vitals: Vital Signs Temp Pulse Resp BP Pulse Ox 98.0 F 84 18 171/80 90 03/21/22 07:27 03/21/22 07:27 03/21/22 07:27 03/21/22 07:27 03/21/22 07:27 Temperature -Last 24 Hours Temperature 98.0 F Temperature 98.2 F Temperature 98.2 F Temperature 97.7 F - Labs CBC & Chem 7: 03/21/22 08:48 03/21/22 08:48 Labs: Abnormal lab results 03/20/22 03/20/22 03/20/22 Range/Units 04:00 04:00 12:36 WBC 14.5 H (4.5-11.0) K/mm3 RBC 3.09 L (3.65-5.03) M/mm3 Hgb 7.6 L (11.8-15.2) gm/dl Hct 24.6 L (35.5-45.6) % MCV 80 L (84-94) fl MCH 25 L (28-32) pg MCHC 31 L (32-34) % RDW 17.2 H (13.2-15.2) % Lymph % (Auto) 6.5 L (13.4-35.0) % Lymph # (Auto) 0.9 L (1.2-5.4) K/mm3 Seg Neutrophils % 89.5 H (40.0-70.0) % Seg Neutrophils # 13.0 H (1.8-7.7) K/mm3 Sodium 136 L (137-145) mmol/L Carbon Dioxide 18 L (22-30) mmol/L BUN 33 H (9-20) mg/dL Creatinine 1.8 H (0.8-1.3) mg/dL Glucose 114 H (75-100) mg/dL POC Glucose 106 H (70-105) mg/dL Calcium (8.4-10.2) mg/dL 03/20/22 03/21/22 03/21/22 Range/Units 16:10 00:12 05:29 WBC (4.5-11.0) K/mm3 RBC (3.65-5.03) M/mm3 Hgb (11.8-15.2) gm/dl Hct (35.5-45.6) % MCV (84-94) fl MCH (28-32) pg MCHC (32-34) % RDW (13.2-15.2) % Lymph % (Auto) (13.4-35.0) % Lymph # (Auto) (1.2-5.4) K/mm3 Seg Neutrophils % (40.0-70.0) % Seg Neutrophils # (1.8-7.7) K/mm3 Sodium (137-145) mmol/L Carbon Dioxide (22-30) mmol/L BUN (9-20) mg/dL Creatinine (0.8-1.3) mg/dL Glucose (75-100) mg/dL POC Glucose 108 H 140 H 121 H (70-105) mg/dL Calcium (8.4-10.2) mg/dL 03/21/22 03/21/22 Range/Units 08:48 08:48 WBC 14.5 H (4.5-11.0) K/mm3 RBC 2.98 L (3.65-5.03) M/mm3 Hgb 7.4 L (11.8-15.2) gm/dl Hct 23.6 L (35.5-45.6) % MCV 79 L (84-94) fl MCH 25 L (28-32) pg MCHC (32-34) % RDW 16.8 H (13.2-15.2) % Lymph % (Auto) 6.8 L (13.4-35.0) % Lymph # (Auto) 1.0 L (1.2-5.4) K/mm3 Seg Neutrophils % 89.8 H (40.0-70.0) % Seg Neutrophils # 13.0 H (1.8-7.7) K/mm3 Sodium 135 L (137-145) mmol/L Carbon Dioxide 16 L (22-30) mmol/L BUN 34 H (9-20) mg/dL Creatinine 1.9 H (0.8-1.3) mg/dL Glucose 126 H (75-100) mg/dL POC Glucose (70-105) mg/dL Calcium 8.3 L (8.4-10.2) mg/dL
--- NOTE | 2022-03-21 12:55 | Progress Note ---
Assessment and Plan 1. Acute kidney injury: Vasomotor MARIE superimposed on CKD in the setting of A.Fib with RVR. Renal US negative. Monitor renal function. Creatinine leveled off. Avoid nephrotoxic agents. Meds dosage based on GFR. 2. FEN: Replete lytes as needed. Monitor lytes and volume status. 3. A.fib with RVR: New diagnosis. Amio. Lovenox. Metoprolol. Followed by Cards. Monitor. 4. Acute metabolic encephalopathy, POA: Monitor. 5. NSTEMI (non-ST elevated myocardial infarction): EF: 25-30%. BB. Lovenox. Followed by Cards. 6. HFrEF: EF: 25-30%. 7. Microcytic Anemia, POA: Trend. Subjective: Patient was seen and examined at the bedside. Examination: General appearance: well-developed, appears stated age, no distress, on restrains HEENT: atraumatic, no icterus Neck: trachea midline Respiratory: ctab Heart: S1S2, irregular, no murmur Abdomen: soft, bowel sounds heard, NT Integumentary: no obvious rash Neurologic: somnolent, not following any command Ext: no edema Subjective Date of service: 03/21/22 Principal diagnosis: NSTEMI ?Type 2 MA Objective - Vital Signs Vital signs: Vital Signs - 12hr 03/21/22 03/21/22 03/21/22 02:00 04:08 07:27 Temperature 98.2 F 98.0 F Pulse Rate 67 78 84 Respiratory 18 18 Rate Blood Pressure 143/83 Blood Pressure 171/80 [Left] O2 Sat by Pulse 98 90 Oximetry 03/21/22 11:49 Temperature 98.6 F Pulse Rate 78 Respiratory 18 Rate Blood Pressure Blood Pressure 167/87 [Left] O2 Sat by Pulse 90 Oximetry - Lab 03/21/22 08:48 03/21/22 08:48 Most recent lab results ABG pH 7.433 pH Units (7.350-7.450) 03/17/22 09:00 ABG pCO2 27.6 mm Hg 03/17/22 09:00 ABG pO2 61.0 mm Hg (80.0-90.0) L 03/17/22 09:00 ABG HCO3 18.0 mmol/L (20.0-26.0) L 03/17/22 09:00 ABG O2 Saturation 98.2 % (95.0-99.0) 03/17/22 09:00 Calcium 8.3 mg/dL (8.4-10.2) L 03/21/22 08:48 Phosphorus 2.20 mg/dL (2.5-4.5) L 03/17/22 04:12 Magnesium 2.10 mg/dL (1.7-2.3) 03/17/22 04:12 Urine Creatinine 167.4 mg/dL (0.1-20.0) H 03/09/22 15:25 Urine Sodium 49 mmol/L 03/09/22 15:25 Medications & Allergies - Medications Allergies/Adverse Reactions: Allergies lisinopril Allergy (Verified 03/16/22 08:26) Hives Home Medications: Home Medications Medication Instructions Recorded Confirmed Last Taken Type Tamsulosin [Flomax] 0.4 mg PO QDAY #7 cap 08/28/15 03/16/22 Unknown Rx amLODIPine [Norvasc] 10 mg PO DAILY #30 tab 08/28/15 03/16/22 Unknown Rx AtorvaSTATin [Lipitor] 40 mg PO QHS 03/11/22 03/16/22 Unknown History Metoprolol Succinate [Toprol Xl] 25 mg PO BID 03/11/22 03/16/22 Unknown History Varenicline Tartrate [Chantix] 1 mg PO BID 03/11/22 03/16/22 Unknown History hydroCHLOROthiazide 12.5 mg PO DAILY 03/11/22 03/16/22 Unknown History [Hydrochlorothiazide] metHOTREXate sodium [Methotrexate] 15 mg PO 1XW 03/11/22 03/16/22 Unknown History predniSONE 10 mg PO BID 03/16/22 03/16/22 Unknown History Active Medications: Generic Name Dose Route Start Last Admin Trade Name Freq PRN Reason Stop Dose Admin Acetaminophen 650 mg 03/08/22 20:07 03/15/22 07:13 Acetaminophen 325 Mg Tab PO 650 mg Q6H PRN Administration Pain MILD(1-3)/Fever >100.5/[place]IL[place] Albuterol 2.5 mg 03/08/22 20:07 03/17/22 08:31 Albuterol 2.5 Mg/3 Ml Nebu IH 2.5 mg Q3HRT PRN Administration Shortness Of Breath Amiodarone HCl 200 mg 03/14/22 10:00 08/14/22 21:54 Amiodarone 200 Mg Tab PO 200 mg BID FRANCESCA Administration Aspirin 81 mg 03/11/22 10:00 03/20/22 10:42 Aspirin 81 Mg Tab Chew PO 81 mg QDAY FRANCESCA Administration Atorvastatin Calcium 40 mg 03/11/22 22:00 03/20/22 21:54 Atorvastatin 40 Mg Tab PO 40 mg QHS FRANCESCA Administration Doxazosin Mesylate 4 mg 03/18/22 18:00 03/20/22 10:41 Doxazosin 4 Mg Tab PO 4 mg QDAY FRANCESCA Administration Enoxaparin Sodium 80 mg 03/14/22 10:00 03/20/22 21:54 Enoxaparin 80 Mg/0.8 Ml Inj SUB-Q 80 mg Q12HR FRANCESCA Administration Famotidine 20 mg 03/14/22 10:00 03/20/22 10:42 Famotidine 20 Mg Tab PO 20 mg DAILY FRANCESCA Administration Haloperidol Lactate 5 mg 03/10/22 18:12 03/18/22 13:17 Haloperidol Lactate 5 Mg/1 Ml Inj IV 5 mg Q6H PRN Administration Agitation Hydralazine HCl 10 mg 03/18/22 12:35 03/18/22 13:18 Hydralazine 20 Mg/1 Ml Inj IV 10 mg Q6HR PRN Administration Blood Pressure Sodium Chloride 1,000 mls @ 100 mls/hr 03/16/22 11:00 03/21/22 06:00 Nacl 0.45% 1000 Ml IV 25 mls/hr DIRECT FRANCESCA Administration Methotrexate 2.5 mg 03/11/22 16:00 03/18/22 18:45 Methotrexate 2.5 Mg Tab (Dose Weekly Only) PO 2.5 mg Fr FRANCESCA Administration Metoprolol Tartrate 100 mg 03/17/22 22:00 03/20/22 21:53 Metoprolol Tartrate 100 Mg Tab PO 100 mg BID FRANCESCA Administration Morphine Sulfate 2 mg 03/08/22 20:07 03/18/22 10:37 Morphine 4 Mg/1 Ml Inj IV 2 mg Q8H PRN Administration Pain , Severe (7-10) Nicotine 21 mg 03/10/22 10:00 03/20/22 10:41 Nicotine 21 Mg/24 Hr Patch TD 21 mg QDAY FRANCESCA Administration Oxycodone/Acetaminophen 1 tab 03/08/22 20:07 03/11/22 21:37 Oxycodone /Acetaminophen 5-325mg Tab PO 1 tab Q6H PRN Administration Pain, Moderate (4-6) Prednisone 10 mg 03/17/22 10:00 03/20/22 21:53 Prednisone 10 Mg Tab PO 10 mg BID FRANCESCA Administration Quetiapine Fumarate 50 mg 03/18/22 22:00 03/20/22 21:54 Quetiapine 25 Mg Tab PO 50 mg QHS FRANCESCA Administration Sodium Bicarbonate 325 mg 03/20/22 13:20 03/20/22 14:30 Sodium Bicarbonate 325 Mg Tab FEEDTUBE 325 mg PRN PRN Administration For Clogged Feeding Tube Sodium Chloride 10 ml 03/08/22 22:00 03/20/22 21:55 Sodium Chloride 0.9% 10 Ml Flush Syringe IV 10 ml BID FRANCESCA Administration Sodium Chloride 10 ml 03/08/22 20:07 Sodium Chloride 0.9% 10 Ml Flush Syringe IV PRN PRN LINE FLUSH Tamsulosin HCl 0.4 mg 03/17/22 10:00 03/20/22 10:41 Tamsulosin 0.4 Mg Cap PO 0.4 mg QDAY FRANCESCA Administration Tramadol HCl 50 mg 03/08/22 20:11 03/14/22 15:35 Tramadol 50 Mg Tab PO 50 mg Q6H PRN Administration Pain, Moderate (4-6)
[2022-03-21] MEDS: traMADol 50 MG TAB PO PRN (13:25)
[2022-03-21] MEDS: NICOTINE 21 MG/24 HR PATCH TD SCH (13:26)
[2022-03-21] MEDS: DOXAZOSIN 4 MG TAB PO SCH (13:26)
[2022-03-21] MEDS: ENOXAPARIN 80 MG/0.8 ML INJ SUB-Q SCH (13:27)
[2022-03-21] MEDS: METOPROLOL TARTRATE 100 MG TAB PO SCH (13:29)
[2022-03-21] MEDS: ASPIRIN 81 MG TAB CHEW PO SCH (13:29)
[2022-03-21] MEDS: TAMSULOSIN 0.4 MG CAP PO SCH (13:30)
[2022-03-21] MEDS: predniSONE 10 MG TAB PO SCH (13:30)
[2022-03-21] MEDS: FAMOTIDINE 20 MG TAB PO SCH (13:30)
[2022-03-21] MEDS: AMIODARONE 200 MG TAB PO SCH (13:53)
[2022-03-21] MEDS ORDERED: VANCOMYCIN/NS 1 GM/250 ML 1 GM/250 ML BAG IV SCH (16:00)
[2022-03-21] MEDS: CEFEPIME/NS 1 GM/100 ML 1 GM/100 ML BAG IV SCH (20:52)
--- NOTE | 2022-03-21 21:15 | XRay Report ---
ABDOMEN 1 VIEW INDICATION / CLINICAL INFORMATION: tube placement. COMPARISON: KUB from 03/18/2022. FINDINGS: TUBES / LINES: An esophagogastric tube terminates over the gastric fundus. BOWEL GAS PATTERN: No significant abnormality. FREE AIR / EXTRALUMINAL GAS: None seen. ADDITIONAL FINDINGS: There is similar cardiomegaly. IMPRESSION: Satisfactory positioning of the esophagogastric tube without acute abdominal findings. Signer Name: Brian Marcelo MD Signed: 03/21/2022 9:11 PM Workstation Name: [id number]
[2022-03-22] MEDS: ENOXAPARIN 80 MG/0.8 ML INJ SUB-Q SCH ×3 (01:52→22:55)
[2022-03-22] MEDS: QUEtiapine 25 MG TAB PO SCH ×3 (01:53→22:44)
[2022-03-22] MEDS: predniSONE 10 MG TAB PO SCH ×3 (01:53→21:59)
[2022-03-22] MEDS: METOPROLOL TARTRATE 100 MG TAB PO SCH ×3 (01:53→21:59)
[2022-03-22] MEDS: AMIODARONE 200 MG TAB PO SCH ×3 (01:54→21:59)
[2022-03-22] MEDS: HALOPERIDOL LACTATE 5 MG/1 ML INJ IV PRN (01:56)
[2022-03-22 04:59] LABS: Calcium 8.7 mg/dL (8.4-10.2)
--- NOTE | 2022-03-22 11:02 | Progress Note ---
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 #Acute hypoxic respiratory failure #Bilateral pneumonia #NSTEMI (non-ST elevated myocardial infarction), type II NH from sepsis #New Onset Atrial Fibrillation with RVR #Hypertension - Presented with AMS, found in AFib with RVR in the ED with elevated troponin - No report of previous Afib history, most likely new onset - Troponin downtrending - Per patient's brother patient sees a PCP in [place], however patient has been refusing to go to the doctor - s/p Chey gtt - Cardiology consulted, appreciate recommendations - Patient is ST with PACs on the monitor. Per cardio most likely MATs. Patient denied any chest pain, VSS - On Amiodarone - Continue BB and therapeutic Lovenox - 2D Echo noted, EF 25-30% - Continue blood pressure monitor per protocol - Maintain SBP less than 160 - respiratory distress on 03/17, cxr demonstrated pulmonary edema. Diuresed with lasix (now d/c). maintain strict I/O. D/c IVF. hydration via NG or po if possible. #Acute kidney injury(MARIE) due to vasomotor nephropathy (stable) - Baseline renal function is unknown, most likely prerenal secondary to above - Renal function remains stable - Neprology consulted, appreciated recommendations - Strict intake and output - Avoid nephrotoxic medications; Renally dose medications - Monitor and replace electrolytes as needed #Sepsis - Presented with leukocytosis, tachycardia, and diagnosis of bilateral pneumonia - X1 dose of Empiric IV antibiotic given in the ED - UA unremakarble, Blood cultures with NGTD - Patient remains afebrile, leukocytosis improved - Will continue to monitor for now - F/u on cultures #Severe Arthritis #Debility - Supportive measures - PRN analgesia for pain control - PT/OT consulted - resumed home methotrexate and prednisone #Nicotine Dependence #THC - Per patient he smoke at least a pack a day - Was initially on wellbutrin at home, but was switched to Chantix back in [facility] - smoking cessation education provided. Patient verbalized understanding and agreed with the info provided - Nicotine qDay - Mental/Psych consulted for further eval #GI/DVT Prophylaxis - PPI- Pepcid - Lovenox SubQ - SCDs bilateral lower extremities while in bed Hospital Course to Date: 03/09: Stable on RA, denied ay pain nor any discomfort at this time. SR with PACs noted on the monitor, VSS. Renal function mild improvement in renal function this am. Continue schedule BB for rate control and therapeutic Lovenox subQ. 2D echo pending and Cardiology consulted. Nephrology is also following. 03/10: More awake today but confused, remains stable on RA. ST with frequent PACs, VSS. Per cardio patient is most likely in MATs. 2D echo still pending, continue BB. Renal function is stable, continue current care per nephro. Nicotine patch added for increase cigarettes urges. Patient's brother provided contact for 3 providers who patient have seen in the past, medical records requested. 03/11: On amiodarone gtt per cardio. Remains in ST with PACs on the monitor, VSS. Plan to switch amio gtt, continue BB. Received records from patient's providers, medical history updated. Per records patient was on Wellbutrin for tobacco dependence but was switched to Chantix in August of this year and patient has not been seen by any of these providers since August 2021. Mental health/spych was also consulted for further eval and treat. 03/12: Patient seen and examined Case discussed with infectious disease concerning for possible sepsis chest x-ray reviewed no acute pneumonia UA without any concern for UTI. Patient does have some abdominal tenderness for which have ordered a CT abdomen and pelvis with oral contrast to further evaluate. We will monitor for worsening renal function as patient has a baseline CKD. Unfortunately due to this cannot get IV contrast. ID started the patient on cefepime 1 g every 12 hours while we will monitor. In the meantime patient can be transferred to telemetry continues on amiodarone p.o. for A. fib. Remains critically ill at this time. 03/13: Patient seen and examined, more lethargic today, May need NGT for Tube feeds if not improving. CTAP was unremarkable. Will start on fluids, cultures remains negative, low grade temp noted. May need LP if no improvement in am. UDS positive for THC on 03/08 No family present. Lady friend visited yesterday, not sure relationship to dis cuss his clinical condition. Received rispiradone but was already with similar lethargy at the time. 03/14: Patient seen and examined more awake today compared to yesterday but still not following any commands. CT head is negative.. ID broadened antibiotics and recommended lumbar puncture as there is no explanation as to the patient's altered mental status that has remained persistent. Again patient was given Ativan a few days ago for CT although that his mental status was still altered he was at least conversational. Lumbar puncture could not be performed today because the patient was moving around a lot. I am avoiding giving a repeat Ativan as I believe that this may have contributed to this recent change. We will await a.m. on reevaluation. NG tube has been placed patient tolerating diet through that. Will need some rehab prior to discharge when clinically improved. Creatinine remains 2.0 we will continue to monitor and trend. Nephrology input appreciated. Due to broaden antibiotics we will start on gentle hydration for renal protection purposes. Again as mentioned I updated patient's brother yesterday who will call back to let us know if the patient's longstanding girlfriend can make decisions. 03/15: Patient seen today. Off to radiology suite for LP. Will follow CSF analysis ordered. Continue tx with vancomycin/cefepime/ampicillin/acylcovir. Per RN, this AM patient was able to recite name and answer some yes/no questions. Will need reassessment tomorrow for mental status. Will need continued PT/OT. 03/16: Remains AOX 1 however is confused. Follows commands but not able to answer further line of questioning. Unclear if this is patinet's baseline as he does have a documented history of dementia in chart. PT/OT recommend MARIBELL. Will need continued assessments. Continue therapy with vanc/cefepime/ampicillin/acyclovir per ID direction. 03/17: Tachypneic and in respiratory distress this AM. Stat CXR and abg ordered. CXR appears to demonstrate patchy airspace disease in mid/upper lung field. COVID PCR sent. Lasix 40 mg IV x 1 ordered. Breathing treatment admin. Talked to patient brother Alfonzo Johnson [phone]. Updated on patient care. Per brother, patient has been declining for approximatley 1 mo prior to admission. He was becoming increasingly lethargic and confused. Patient would simply lay in bed and have difficulties completing ADL's. He was frequently incontinent in bed. Pt brother had tried to convince brother to present to ED sooner but Pt would refuse. LP unfortunately has been unable to be completed at this point due to patient aggitation/confusion and inability to lay still. Diagnostic yield of LP would likely be low at this point given his empiric therapy for meningitis. MRI brain would be useful but again given aggitation/confusion would be difficult to perform properly. When patient becomes more clinically stable, may reattempt this. EEG is still pending. Ordered workup for HIV, syphilis, HSV. May need to consider autoimmune etiology as patient does have a history of rheumatoid arthritis. may consider short course of pulse steroids in future. Will continue to follow subspecialist recommendations. 03/18: NG pulled overnight. However, patient is more oriented, alert this AM (able to recite name, brothers name, answer simple yes/no questioning). Plan for ST eval today. Will attempt MRI brain w/o con. Leukocytosis inc to 17K. No fevers noted overnight. Patient respiratory status improved with diuresis, however renal function worsened. Will stop lasix. Continue strict I/O monitoring . 03/19: Continued improvement in mental status. Patient was able to recent the year, his name, brother's name. He asked why he was in the hospital (which he clearly recognized). He does remain lethargic and at continued risk for aspiration. ST evaluation notes that patient is still aspiration risk. Will follow final recommendations, patient may need a PEG tube. MRI brain was negative for acute findings however there are findings of advanced diffuse cerebral atrophy, more prominent than a normal study for someone his age. There is some concern for Alzheimer's disease or Pick's Disease. Will discuss findings with patient brother. 03/20: Able to answer questions. Alert, orientation fluctuates but knows name and some distant facts (brothers name etc). no speech therapy at hospital today, judah l await for reassessment of swallowing to assess aspiratoin risk prior to consultation to GI. called brothers Alfonzo and Michael and updated on patient clinical status. Ultimately, I explained that pt likely has advanced dementia and doubt there is any metabolic or infectious etiology. I stated that I would discuss with our subspecialists to see if other etiologies could be possible. Ultimately patient disposition is SNF. CM has already made referrals to [facility]. 03/21: More drowsy this AM. D/w ID, ok to d/c abx as patient has completed therapy for aspiration pneumonia. Additionally, no meningeal enchancement seen on MRI, ok to d/c abx. Patient accepted at [facility]. Will await final speech evaluation to see if patient remains aspiration risk. Will see if patient will require PEG tube. 03/22: Brain MRI showed extensive atrophy with no acute abnormality. No evidence of brain abscess or any meningeal enhancement patient completed treatment for aspiration pneumonia and antibiotics discontinued. Await speech therapy evaluation to determine whether patient will need PEG placement. Evaluation completed on the revealed aspiration risk History Interval history: No new issues overnight Hospitalist Physical - Constitutional Vitals: Temp Pulse Resp BP Pulse Ox 98.4 F 65 18 171/86 98 03/22/22 08:22 03/22/22 08:22 03/22/22 08:22 03/22/22 08:03/22/22 09:24 General appearance: Present: no acute distress, well-nourished, obese - EENT Eyes: Present: PERRL, EOM intact ENT: hearing intact, clear oral mucosa, dentition normal - Neck Neck: Present: supple, normal ROM - Respiratory Respiratory effort: normal Respiratory: bilateral: CTA - Cardiovascular Rhythm: regular Heart Sounds: Present: S1 & S2. Absent: gallop, rub - Extremities Extremities: no ischemia, No edema, Full ROM - Abdominal General gastrointestinal: soft, non-tender, non-distended, normal bowel sounds - Integumentary Integumentary: Present: clear, warm, dry - Neurologic Neurologic: CNII-XII intact, moves all extremities HEART Score - HEART Score Troponin: Troponin T 0.119 ng/mL (0.00-0.029) H* D 03/09/22 02:13 Results - Labs CBC & Chem 7: 03/21/22 08:48 03/22/22 03:50 Labs: Laboratory Last Values WBC 14.5 K/mm3 (4.5-11.0) H 03/21/22 08:48 RBC 2.98 M/mm3 (3.65-5.03) L 03/21/22 08:48 Hgb 7.4 gm/dl (11.8-15.2) L 03/21/22 08:48 Hct 23.6 % (35.5-45.6) L 03/21/22 08:48 MCV 79 fl (84-94) L 03/21/22 08:48 MCH 25 pg (28-32) L 03/21/22 08:48 MCHC 32 % (32-34) 03/21/22 08:48 RDW 16.8 % (13.2-15.2) H 03/21/22 08:48 Plt Count 371 K/mm3 (140-440) 03/21/22 08:48 Lymph % (Auto) 6.8 % (13.4-35.0) L 03/21/22 08:48 [place] % (Auto) 3.0 % (0.0-7.3) 03/21/22 08:48 Eos % (Auto) 0.2 % (0.0-4.3) 03/21/22 08:48 Baso % (Auto) 0.2 % (0.0-1.8) 03/21/22 08:48 Lymph # (Auto) 1.0 K/mm3 (1.2-5.4) L 03/21/22 08:48 [place] # (Auto) 0.4 K/mm3 (0.0-0.8) 03/21/22 08:48 Eos # (Auto) 0.0 K/mm3 (0.0-0.4) 03/21/22 08:48 Baso # (Auto) 0.0 K/mm3 (0.0-0.1) 03/21/22 08:48 Add Manual Diff Complete 03/09/22 02:13 Total Counted 100 03/09/22 02:13 Seg Neutrophils % 89.8 % (40.0-70.0) H 03/21/22 08:48 Seg Neuts % (Manual) 80.0 % (40.0-70.0) H 03/09/22 02:13 Band Neutrophils % 0 % 03/09/22 02:13 Lymphocytes % (Manual) 11.0 % (13.4-35.0) L 03/09/22 02:13 Reactive Lymphs % (Man) 0 % 03/09/22 02:13 Monocytes % (Manual) 8.0 % (0.0-7.3) H 03/09/22 02:13 Eosinophils % (Manual) 1.0 % (0.0-4.3) 03/09/22 02:13 Basophils % (Manual) 0 % (0.0-1.8) 03/09/22 02:13 Metamyelocytes % 0 % 03/09/22 02:13 Myelocytes % 0 % 03/09/22 02:13 Promyelocytes % 0 % 03/09/22 02:13 Blast Cells % 0 % 03/09/22 02:13 Nucleated RBC % Not Reportable 03/09/22 02:13 Seg Neutrophils # 13.0 K/mm3 (1.8-7.7) H 03/21/22 08:48 Seg Neutrophils # Man 8.5 K/mm3 (1.8-7.7) H 03/09/22 02:13 Band Neutrophils # 0.0 K/mm3 03/09/22 02:13 Lymphocytes # (Manual) 1.2 K/mm3 (1.2-5.4) 03/09/22 02:13 Abs React Lymphs (Man) 0.0 K/mm3 03/09/22 02:13 Monocytes # (Manual) 0.8 K/mm3 (0.0-0.8) 03/09/22 02:13 Eosinophils # (Manual) 0.1 K/mm3 (0.0-0.4) 03/09/22 02:13 Basophils # (Manual) 0.0 K/mm3 (0.0-0.1) 03/09/22 02:13 Metamyelocytes # 0.0 K/mm3 03/09/22 02:13 Myelocytes # 0.0 K/mm3 03/09/22 02:13 Promyelocytes # 0.0 K/mm3 03/09/22 02:13 Blast Cells # 0.0 K/mm3 03/09/22 02:13 WBC Morphology Not Reportable 03/09/22 02:13 Hypersegmented Neuts Not Reportable 03/09/22 02:13 Hyposegmented Neuts Not Reportable 03/09/22 02:13 Hypogranular Neuts Not Reportable 03/09/22 02:13 Smudge Cells Not Reportable 03/09/22 02:13 Toxic Granulation Not Reportable 03/09/22 02:13 Toxic Vacuolation Not Reportable 03/09/22 02:13 Dohle Bodies Not Reportable 03/09/22 02:13 Pelger-Huet Anomaly Not Reportable 03/09/22 02:13 Marylin Rods Not Reportable 03/09/22 02:13 Platelet Estimate Consistent w auto 03/09/22 02:13 Clumped Platelets Not Reportable 03/09/22 02:13 Plt Clumps, EDTA Not Reportable 03/09/22 02:13 Large Platelets Not Reportable 03/09/22 02:13 Giant Platelets Not Reportable 03/09/22 02:13 Platelet Satelliting Not Reportable 03/09/22 02:13 Plt Morphology Comment Not Reportable 03/09/22 02:13 RBC Morphology Normal 03/09/22 02:13 Dimorphic RBCs Not Reportable 03/09/22 02:13 Polychromasia Not Reportable 03/09/22 02:13 Hypochromasia Not Reportable 03/09/22 02:13 Poikilocytosis Not Reportable 03/09/22 02:13 Anisocytosis Not Reportable 03/09/22 02:13 Microcytosis Not Reportable 03/09/22 02:13 Macrocytosis Not Reportable 03/09/22 02:13 Spherocytes Not Reportable 03/09/22 02:13 Pappenheimer Bodies Not Reportable 03/09/22 02:13 Sickle Cells Not Reportable 03/09/22 02:13 Target Cells Not Reportable 03/09/22 02:13 Tear Drop Cells Not Reportable 03/09/22 02:13 Ovalocytes Not Reportable 03/09/22 02:13 Helmet Cells Not Reportable 03/09/22 02:13 [place] Bodies Not Reportable 03/09/22 02:13 [place] Rings Not Reportable 03/09/22 02:13 [place] Cells Not Reportable 03/09/22 02:13 Bite Cells Not Reportable 03/09/22 02:13 Crenated Cell Not Reportable 03/09/22 02:13 Elliptocytes Not Reportable 03/09/22 02:13 Acanthocytes (Spur) Not Reportable 03/09/22 02:13 Rouleaux Not Reportable 03/09/22 02:13 Hemoglobin C Crystals Not Reportable 03/09/22 02:13 Schistocytes Not Reportable 03/09/22 02:13 Malaria parasites Not Reportable 03/09/22 02:13 Cristino Bodies Not Reportable 03/09/22 02:13 Hem Pathologist Commnt No 03/09/22 02:13 PT 15.7 Sec. (12.2-14.9) H 03/08/22 12:29 INR 1.09 (0.87-1.13) 03/08/22 12:29 ABG pH 7.433 pH Units (7.350-7.450) 03/17/22 09:00 ABG pCO2 27.6 mm Hg 03/17/22 09:00 ABG pO2 61.0 mm Hg (80.0-90.0) L 03/17/22 09:00 ABG HCO3 18.0 mmol/L (20.0-26.0) L 03/17/22 09:00 ABG O2 Saturation 98.2 % (95.0-99.0) 03/17/22 09:00 ABG O2 Content 10.9 (0.0-44) 03/13/22 16:05 ABG Base Excess -5.8 mmol/L (-2.0-3.0) L 03/17/22 09:00 ABG Hemoglobin 5.3 gm/dl (14.0-18.0) L 03/17/22 09:00 ABG Carboxyhemoglobin 1.7 % (0.0-5.0) 03/17/22 09:00 ABG Methemoglobin 0.2 % (0.0-1.5) 03/17/22 09:00 Oxyhemoglobin 96.4 % (95.0-99.0) 03/17/22 09:00 FiO2 32 % 03/17/22 09:00 Sodium 133 mmol/L (137-145) L 03/22/22 03:50 Potassium 4.6 mmol/L (3.6-5.0) D 03/22/22 03:50 Chloride 104.9 mmol/L (98-107) 03/22/22 03:50 Carbon Dioxide 15 mmol/L (22-30) L 03/22/22 03:50 Anion Gap 18 mmol/L 03/22/22 03:50 BUN 34 mg/dL (9-20) H 03/22/22 03:50 Creatinine 1.8 mg/dL (0.8-1.3) H 03/22/22 03:50 Estimated GFR 46 ml/min 03/22/22 03:50 BUN/Creatinine Ratio 19 % 03/22/22 03:50 Glucose 97 mg/dL (75-100) 03/22/22 03:50 POC Glucose 110 mg/dL (70-105) H 03/22/22 06:33 Lactic Acid 1.40 mmol/L (0.7-2.0) 03/08/22 12:29 Calcium 8.7 mg/dL (8.4-10.2) 03/22/22 03:50 Phosphorus 2.20 mg/dL (2.5-4.5) L 03/17/22 04:12 Magnesium 2.10 mg/dL (1.7-2.3) 03/17/22 04:12 Total Bilirubin 0.30 mg/dL (0.1-1.2) 03/18/22 05:17 AST 36 units/L (5-40) 03/18/22 05:17 ALT 21 units/L (7-56) 03/18/22 05:17 Alkaline Phosphatase 163 units/L (35-129) H 03/18/22 05:17 Ammonia 10.0 umol/L (25-60) L 03/13/22 19:38 Total Creatine Kinase 53 units/L (55-170) L 03/08/22 12:29 Troponin T 0.119 ng/mL (0.00-0.029) H* D 03/09/22 02:13 C-Reactive Protein 16.20 mg/dL (0.00-1.30) H 03/08/22 12:29 Total Protein 7.2 g/dL (6.3-8.2) 03/18/22 05:17 Albumin 2.1 g/dL (3.9-5) L 03/18/22 05:17 Albumin/Globulin Ratio 0.4 % 03/18/22 05:17 Triglycerides 105 mg/dL (2-149) 03/08/22 12:29 Cholesterol 136 mg/dL (50-199) 03/08/22 12:29 LDL Cholesterol Direct 76 mg/dL (50-130) 03/08/22 12:29 HDL Cholesterol 35 mg/dL (40-59) L 03/08/22 12:29 Cholesterol/HDL Ratio 3.88 % 03/08/22 12:29 PTH Intact 45.32 pg/mL (15-65) 03/11/22 03:52 Urine Color Yellow (Yellow) 03/08/22 14:38 Urine Turbidity Clear (Clear) 03/08/22 14:38 Urine pH 6.0 (5.0-7.0) 03/08/22 14:38 Ur Specific [place] 1.015 (1.003-1.030) 03/08/22 14:38 Urine Protein 30 mg/dl mg/dL (Negative) 03/08/22 14:38 Urine Glucose (UA) Negative mg/dL (Negative) 03/08/22 14:38 Urine Ketones Negative mg/dL (Negative) 03/08/22 14:38 Urine Blood 1+ (Negative) 03/08/22 14:38 Urine Nitrite Negative (Negative) 03/08/22 14:38 Ur Reducing Substances Negative (Negative) 03/08/22 14:38 Urine Bilirubin Negative (Negative) 03/08/22 14:38 Urine Urobilinogen 0.0 mg/dL (<2.0) 03/08/22 14:38 Ur Leukocyte Esterase Negative (Negative) 03/08/22 14:38 Urine WBC (Auto) 3.0 /HPF (0.0-6.0) 03/08/22 14:38 Urine RBC (Auto) 5.0 /HPF (0.0-6.0) 03/08/22 14:38 U Epithel Cells (Auto) 3.0 /HPF (0-13.0) 03/08/22 14:38 Urine Bacteria (Auto) 1+ /HPF (Negative) 03/08/22 14:38 Hyaline Casts 2 /LPF 03/08/22 14:38 Urine Mucus 1+ /HPF 03/08/22 14:38 Urine Creatinine 167.4 mg/dL (0.1-20.0) H 03/09/22 15:25 Urine Sodium 49 mmol/L 03/09/22 15:25 Vancomycin Trough 21.1 ug/mL (5.0-20.0) H 03/19/22 15:35 Salicylates < 0.3 mg/dL (2.8-20.0) L 03/08/22 12:29 Urine Opiates Screen Negative 03/08/22 14:38 Urine Methadone Screen Negative 03/08/22 14:38 Acetaminophen 5.0 ug/mL (10.0-30.0) L 03/08/22 12:29 Ur Barbiturates Screen Negative 03/08/22 14:38 Ur Phencyclidine Scrn Negative 03/08/22 14:38 Ur Amphetamines Screen Negative 03/08/22 14:38 U Benzodiazepines Scrn Negative 03/08/22 14:38 Urine Cocaine Screen Negative 03/08/22 14:38 U Marijuana (THC) Screen Positive 03/08/22 14:38 Drugs of Abuse Note Disclamer 03/08/22 14:38 Plasma/Serum Alcohol < 0.01 % (0-0.07) 03/08/22 12:29 Syphilis IgG/IgM Ab Nonreactive (NonReactive) 03/17/22 13:16 Coronavirus (PCR) Negative (Negative) 03/17/22 09:54 HIV 1&2 Antibody Rapid Non react (Non React) 03/17/22 13:16 HIV P24 Antigen Non react (Non React) 03/17/22 13:16 [place]/IV: Voiding Method Indwelling Catheter Active Medications - Current Medications Current Medications: Generic Name Dose Route Start Last Admin Trade Name Freq PRN Reason Stop Dose Admin Acetaminophen 650 mg 03/08/22 20:07 03/15/22 07:13 Acetaminophen 325 Mg Tab PO 650 mg Q6H PRN Administration Pain MILD(1-3)/Fever >100.5/HILTON Albuterol 2.5 mg 03/08/22 20:07 03/17/22 08:31 Albuterol 2.5 Mg/3 Ml Nebu IH 2.5 mg Q3HRT PRN Administration Shortness Of Breath Amiodarone HCl 200 mg 03/14/22 10:00 03/22/22 01:54 Amiodarone 200 Mg Tab PO 200 mg BID FRANCESCA Administration Aspirin 81 mg 03/11/22 10:00 03/21/22 13:29 Aspirin 81 Mg Tab Chew PO 81 mg QDAY FRANCESCA Administration Atorvastatin Calcium 40 mg 03/11/22 22:00 03/22/22 01:53 Atorvastatin 40 Mg Tab PO 40 mg QHS FRANCESCA Administration Doxazosin Mesylate 4 mg 03/18/22 18:00 03/21/22 13:26 Doxazosin 4 Mg Tab PO 4 mg QDAY FRANCESCA Administration Enoxaparin Sodium 80 mg 03/14/22 10:00 03/22/22 01:52 Enoxaparin 80 Mg/0.8 Ml Inj SUB-Q 80 mg Q12HR FRANCESCA Administration Famotidine 20 mg 03/14/22 10:00 03/21/22 13:30 Famotidine 20 Mg Tab PO 20 mg DAILY FRANCESCA Administration Haloperidol Lactate 5 mg 03/10/22 18:12 03/22/22 01:56 Haloperidol Lactate 5 Mg/1 Ml Inj IV 5 mg Q6H PRN Administration Agitation Hydralazine HCl 10 mg 03/18/22 12:35 03/18/22 13:18 Hydralazine 20 Mg/1 Ml Inj IV 10 mg Q6HR PRN Administration Blood Pressure Sodium Chloride 1,000 mls @ 100 mls/hr 03/16/22 11:00 03/21/22 06:00 Nacl 0.45% 1000 Ml IV 25 mls/hr DIRECT FRANCESCA Administration Methotrexate 2.5 mg 03/11/22 16:00 03/18/22 18:45 Methotrexate 2.5 Mg Tab (Dose Weekly Only) PO 2.5 mg Fr FRANCESCA Administration Metoprolol Tartrate 100 mg 03/17/22 22:00 03/22/22 01:53 Metoprolol Tartrate 100 Mg Tab PO 100 mg BID FRANCESCA Administration Morphine Sulfate 2 mg 03/08/22 20:07 03/18/22 10:37 Morphine 4 Mg/1 Ml Inj IV 2 mg Q8H PRN Administration Pain , Severe (7-10) Nicotine 21 mg 03/10/22 10:00 03/21/22 13:26 Nicotine 21 Mg/24 Hr Patch TD 21 mg QDAY FRANCESCA Administration Oxycodone/Acetaminophen 1 tab 03/08/22 20:07 03/11/22 21:37 Oxycodone /Acetaminophen 5-325mg Tab PO 1 tab Q6H PRN Administration Pain, Moderate (4-6) Prednisone 10 mg 03/17/22 10:00 03/22/22 01:53 Prednisone 10 Mg Tab PO 10 mg BID FRANCESCA Administration Quetiapine Fumarate 50 mg 03/18/22 22:00 03/22/22 01:53 Quetiapine 25 Mg Tab PO 50 mg QHS FRANCESCA Administration Sodium Bicarbonate 325 mg 03/20/22 13:20 03/20/22 14:30 Sodium Bicarbonate 325 Mg Tab FEEDTUBE 325 mg PRN PRN Administration For Clogged Feeding Tube Sodium Chloride 10 ml 03/08/22 22:00 03/22/22 01:54 Sodium Chloride 0.9% 10 Ml Flush Syringe IV 10 ml BID FRANCESCA Administration Sodium Chloride 10 ml 03/08/22 20:07 Sodium Chloride 0.9% 10 Ml Flush Syringe IV PRN PRN LINE FLUSH Tramadol HCl 50 mg 03/08/22 20:11 03/21/22 13:25 Tramadol 50 Mg Tab PO 50 mg Q6H PRN Administration Pain, Moderate (4-6) Nutrition/Malnutrition Assess - Dietary Evaluation Nutrition/Malnutrition Findings: Nutrition Notes Start: 03/14/22 11:02 Freq: Status: Active Protocol: Document 03/16/22 11:12 ABDIAS (Rec: 03/16/22 11:21 [email or web address] [id number]) Nutrition Notes Initial or Follow up Brief Note Current Diagnosis Acute Kidney Injury,Sepsis, Hypertension,Stroke Other Pertinent Diagnosis NSTEMI II, Atrial Fibrilation/ RVR, Metabolic Encephalopathy, SIRS, ... Current Diet TF-Nepro w/CARBSTEADY @ 50 ml/ hr (since D 03/13). Height 6 ft Weight 73 kg [place] Body Weight (kg) 80.90 BMI 21.8 Weight change and time frame No body weight change reported in 2 days. Weight Status Appropriate Subjective/Other Information RD consult for routine F/U on TF tolerance/continuation. TF continues as prescribed, no further information available at the time. Pt is on Room Air, O2 saturation @ 94%, according to Physical Assessment History notes. Percent of energy/protein needs met: Prescribed TF-Nepro w/ CARBSTEADY @ 50 ml/hr provides for energy/protein needs (2, 180 Kcal/98 g) during LOS, 96% Kcal; 111% AA. #1 Nutrition Diagnosis Inadequate oral intake Diagnosis Progress(for reassessment Continues documentation) Is patient on ventilator? No Is Patient Ambulatory and/or Out of Bed No REE-([place]-confined to bed) 1863.060 Kcal/Kg value to use for calculation 31 Approximate Energy Requirements Using 2263 kcal/Kg Calculation Used for Recommendations Kcal/kg Additional Notes Protein: 0.8-1.2 g/Kg ABW; 58- 88 g/day. Fluids: 1 ml/Kcal, or as per MD. Nutrition Intervention Nutrition Support: Continue TF-Nepro w/CARBSTEADY @ 50 ml/hr. Flush: 230 ml water Q 4 hr, or as per MD. Kcal 2,180 Protein (gm) 98 Carbohydrates (gm) 195 Fat (gm) 116 Fluid (mL) 880 Fiber (gm) 15 % RDI: 96% Kcal; 111% AA. Goal #1 Provide at least 75% of energy /protein needs through Enteral Feeding during LOS. Follow-Up By: 03/23/22 Additional Comments Continue monitoring TF tolerance and BM.
[2022-03-22] MEDS: FAMOTIDINE 20 MG TAB PO SCH (11:15)
[2022-03-22] MEDS: DOXAZOSIN 4 MG TAB PO SCH (11:15)
[2022-03-22] MEDS: ASPIRIN 81 MG TAB CHEW PO SCH (11:17)
[2022-03-22] MEDS: NICOTINE 21 MG/24 HR PATCH TD SCH (11:17)
--- NOTE | 2022-03-22 11:17 | Progress Note ---
Assessment and Plan Cultures: 03/08/2022 blood culture: No growth Syphilis screen: Nonreactive HIV: Nonreactive A/P: 67-year-old male with vascular dementia, prior CVA, BPH, hypertension, smoking history was admitted with confusion, altered mental status: #SIRS/sepsis: Has leukocytosis, thrombocytosis, low grade fever. Chest x-ray without any pneumonia, UA without any concerns for UTI. Did have an indwelling [place], some abdominal guarding. Poor historian. No concerning skin wounds. CT abdomen and pelvis without contrast did not reveal any acute abnormality. #Bilateral pneumonia, likely aspiration pneumonia #MARIE: Renally adjust antibiotics. #Rheumatoid arthritis: On methotrexate, chronic steroids. #Elevated troponin: Seen by cardiology, suspected type II NSTEMI. TTE shows EF of 25 to 30%. #Acute encephalopathy: CT head without acute abnormality. Also urinary tox screen positive for THC. Mental status seems to fluctuate. Brain MRI showed extensive atrophy with no acute abnormality. No evidence of brain abscess or any meningeal enhancement. Was unable to get an LP. #Tobacco abuse Recs: -off antibiotics -some leucocytosis is likely from prednisone Will sign off. Please call with questions or any new concerns. Juanis Greco MD, FACP, [facility] ([facility]) O: [phone] F: [phone] C: [phone] Subjective Date of service: 03/22/22 Principal diagnosis: NSTEMI ?Type 2 UT Interval history: Afebrile. Mental status seems to fluctuate, was easily awakened and answered basic questions. Family members at bedside. Objective - Exam Narrative Exam: Physical Exam: Constitutional: drowsy, easily awakened Head, Ears, Nose: Normocephalic, atraumatic. External ears, nose normal Eyes: Conjunctivae/corneas clear. No icterus. No ptosis. Neck: Supple, no meningeal signs Cardiovascular: S1, S2 + Respiratory: AE fair b/l, mainly clear GI: soft, non tender, bowel sounds + Musculoskeletal: No pedal edema, no cyanosis. Skin: No rash or abscess Hem/Lymphatic: No palpable cervical or supraclavicular nodes. No lymphangitis Neurological: drowsy, easily awakened, answered basic questions - Constitutional Vitals: Vital Signs Temp Pulse Resp BP Pulse Ox 98.4 F 65 18 171/86 98 03/22/22 08:22 03/22/22 08:22 03/22/22 08:22 03/22/22 08:22 03/22/22 09:24 Temperature -Last 24 Hours Temperature 98.4 F Temperature 97.6 F Temperature 97.6 F Temperature 97.5 F Temperature 98.4 F Temperature 98.6 F - Labs CBC & Chem 7: 03/21/22 08:48 03/22/22 03:50 Labs: Abnormal lab results 03/21/22 03/21/22 03/21/22 Range/Units 11:41 15:25 23:13 Sodium (137-145) mmol/L Carbon Dioxide (22-30) mmol/L BUN (9-20) mg/dL Creatinine (0.8-1.3) mg/dL POC Glucose 109 H 109 H 106 H (70-105) mg/dL 03/22/22 03/22/22 Range/Units 03:50 06:33 Sodium 133 L (137-145) mmol/L Carbon Dioxide 15 L (22-30) mmol/L BUN 34 H (9-20) mg/dL Creatinine 1.8 H (0.8-1.3) mg/dL POC Glucose 110 H (70-105) mg/dL
--- NOTE | 2022-03-22 12:29 | Progress Note ---
Assessment and Plan Patient is a 67-year-old male with a reported past medical history of vascular dementia, cerebral atherosclerosis, BPH, hypertension, nicotine dependence who presented to the ED yesterday for complaint of AMS x2. Altered mental status NSTEMI suspect type II MARIE Leukocytosis A. fib Hypertension Vascular dementia Echo 03/09/2022-EF 25 to 30%. Severe global hypokinesis of left ventricle. Moderate concentric LVH. Mild diastolic dysfunction is present impaired relaxation pattern. Moderate aortic regurgitation. No pericardial effusion Plan: Conservative cardiac mgmt recommended in light of mental status Telemetry reviewed patient remains in sinus rhythm Continue to Amio 200mg PO BID,and metoprolol 100mg PO BID Continue anticoagulation with Lovenox. Will hold NATALYA and ARB due to elevated creatinine and documented allergy Due to mental status patient may need PEG placement. Awaiting speech eval Pt is a non-modifiable risk CV pt awaiting intervention for PEG. RCRI class is III (2 points, 10.1% risk of MACE). In the absence however of ischemic cardiac symptoms or acutely decompensated HF, there are no contraindications to intervention at this time from a CV standpoint. Pt seen in conjunction with Dr. Norton, who agrees with the assessment and plan of care - Patient Problems (1) Acute kidney injury (MARIE) with acute tubular necrosis (ATN) Current Visit: Yes Status: Acute (2) Altered mental status Current Visit: Yes Status: Acute (3) Atrial fibrillation with RVR Current Visit: Yes Status: Acute (4) CKD (chronic kidney disease) Current Visit: Yes Status: Acute (5) Cerebral atherosclerosis Current Visit: Yes Status: Chronic (6) Elevated troponin Current Visit: Yes Status: Acute (7) NSTEMI (non-ST elevated myocardial infarction) Current Visit: Yes Status: Acute (8) SIRS (systemic inflammatory response syndrome) Current Visit: Yes Status: Acute (9) Vascular dementia Current Visit: Yes Status: Chronic Qualifiers: Dementia behavioral disturbance: with behavioral disturbance Qualified Code(s): F01.51 - Vascular dementia with behavioral disturbance (10) Weakness Current Visit: Yes Status: Acute Subjective Date of service: 03/22/22 Principal diagnosis: NSTEMI ?Type 2 MA Interval history: Patient in bed in no acute distress. Patient remains with altered mental status. Per documentaiton patient removed NG tube sinus 80s on monitor Objective Vital Signs Temp Pulse Resp BP Pulse Ox 03/22/22 11:50 98.4 F 75 18 165/81 98 03/22/22 11:14 20 137/82 03/22/22 09:24 98 03/22/22 08:22 98.4 F 65 18 171/86 98 03/22/22 08:05 97.6 F 67 18 147/78 100 03/22/22 04:54 97.6 F 69 19 156/79 99 03/22/22 01:53 72 143/84 03/21/22 22:00 72 96 03/21/22 21:31 95 03/21/22 19:31 97.5 F L 69 18 143/84 99 03/21/22 15:28 98.4 F 58 L 18 125/71 99 03/21/22 13:29 87 03/21/22 13:26 87 03/21/22 13:25 16 - Physical Examination General: No Apparent Distress HEENT: Positive: Normocephaly, Mucus Membranes Dry Neck: Positive: trachea midline. Negative: JVD/HJR Cardiac: Positive: Reg Rate and Rhythm Lungs: Positive: Rhonchi Neuro: Positive: Grossly Intact Abdomen: Positive: Soft Skin: Negative: Rash Extremities: Present: warm. Absent: edema - Labs and Meds Comprehensive Metabolic Panel 03/22/22 Range/Units 03:50 Sodium 133 L (137-145) mmol/L Potassium 4.6 D (3.6-5.0) mmol/L Chloride 104.9 (98-107) mmol/L Carbon Dioxide 15 L (22-30) mmol/L BUN 34 H (9-20) mg/dL Creatinine 1.8 H (0.8-1.3) mg/dL Glucose 97 (75-100) mg/dL Calcium 8.7 (8.4-10.2) mg/dL - Imaging and Cardiology EKG: report reviewed, image reviewed Echo: report reviewed - Telemetry EKG Rhythm: Sinus Rhythm - EKG Sinus rhythms and dysrhythmias: sinus rhythm Ventricular dysrhythmias: ventricular premature com Myocardial infarction: septal MA (old age or ind, anterior MA (old age or i - Allied health notes Allied health notes reviewed: nursing
--- NOTE | 2022-03-22 13:45 | Progress Note ---
Assessment and Plan 1. Acute kidney injury: Vasomotor MARIE superimposed on CKD in the setting of A.Fib with RVR. Renal US negative. Monitor renal function. Creatinine leveled off. Avoid nephrotoxic agents. Meds dosage based on GFR. 2. FEN: Replete lytes as needed. Monitor lytes and volume status. 3. A.fib with RVR: New diagnosis. Amio. Lovenox. Metoprolol. Followed by Cards. Monitor. 4. Acute metabolic encephalopathy, POA: Monitor. 5. NSTEMI (non-ST elevated myocardial infarction): EF: 25-30%. BB. Lovenox. Followed by Cards. 6. HFrEF: EF: 25-30%. 7. Microcytic Anemia, POA: Trend. Subjective: Patient was seen and examined at the bedside. Brother and friend at the bedside. Examination: General appearance: well-developed, appears stated age, no distress HEENT: atraumatic, no icterus Neck: trachea midline Respiratory: ctab Heart: S1S2, irregular, no murmur Abdomen: soft, bowel sounds heard, NT Integumentary: no obvious rash Neurologic: alert, moving extremities, confused Ext: no edema Subjective Date of service: 03/22/22 Principal diagnosis: NSTEMI ?Type 2 IA Objective - Vital Signs Vital signs: Vital Signs - 12hr 03/22/22 03/22/22 03/22/22 01:53 04:54 08:05 Temperature 97.6 F 97.6 F Pulse Rate 72 69 67 Respiratory 19 18 Rate Blood Pressure 143/84 156/79 147/78 O2 Sat by Pulse 99 100 Oximetry 03/22/22 03/22/22 03/22/22 08:22 09:24 11:14 Temperature 98.4 F Pulse Rate 65 Respiratory 18 20 Rate Blood Pressure 171/86 137/82 O2 Sat by Pulse 98 98 Oximetry 03/22/22 11:50 Temperature 98.4 F Pulse Rate 75 Respiratory 18 Rate Blood Pressure 165/81 O2 Sat by Pulse 98 Oximetry - Lab 03/21/22 08:48 03/22/22 03:50 Most recent lab results ABG pH 7.433 pH Units (7.350-7.450) 03/17/22 09:00 ABG pCO2 27.6 mm Hg 03/17/22 09:00 ABG pO2 61.0 mm Hg (80.0-90.0) L 03/17/22 09:00 ABG HCO3 18.0 mmol/L (20.0-26.0) L 03/17/22 09:00 ABG O2 Saturation 98.2 % (95.0-99.0) 03/17/22 09:00 Calcium 8.7 mg/dL (8.4-10.2) 03/22/22 03:50 Phosphorus 2.20 mg/dL (2.5-4.5) L 03/17/22 04:12 Magnesium 2.10 mg/dL (1.7-2.3) 03/17/22 04:12 Urine Creatinine 167.4 mg/dL (0.1-20.0) H 03/09/22 15:25 Urine Sodium 49 mmol/L 03/09/22 15:25 Medications & Allergies - Medications Allergies/Adverse Reactions: Allergies lisinopril Allergy (Verified 03/16/22 08:26) Hives Home Medications: Home Medications Medication Instructions Recorded Confirmed Last Taken Type Tamsulosin [Flomax] 0.4 mg PO QDAY #7 cap 08/28/15 03/16/22 Unknown Rx amLODIPine [Norvasc] 10 mg PO DAILY #30 tab 08/28/15 03/16/22 Unknown Rx AtorvaSTATin [Lipitor] 40 mg PO QHS 03/11/22 03/16/22 Unknown History Metoprolol Succinate [Toprol Xl] 25 mg PO BID 03/11/22 03/16/22 Unknown History Varenicline Tartrate [Chantix] 1 mg PO BID 03/11/22 03/16/22 Unknown History hydroCHLOROthiazide 12.5 mg PO DAILY 03/11/22 03/16/22 Unknown History [Hydrochlorothiazide] metHOTREXate sodium [Methotrexate] 15 mg PO 1XW 03/11/22 03/16/22 Unknown History predniSONE 10 mg PO BID 03/16/22 03/16/22 Unknown History Active Medications: Generic Name Dose Route Start Last Admin Trade Name Freq PRN Reason Stop Dose Admin Acetaminophen 650 mg 03/08/22 20:07 03/15/22 07:13 Acetaminophen 325 Mg Tab PO 650 mg Q6H PRN Administration Pain MILD(1-3)/Fever >100.5/HILTON Albuterol 2.5 mg 03/08/22 20:07 03/17/22 08:31 Albuterol 2.5 Mg/3 Ml Nebu IH 2.5 mg Q3HRT PRN Administration Shortness Of Breath Amiodarone HCl 200 mg 03/14/22 10:00 03/22/22 11:21 Amiodarone 200 Mg Tab PO 200 mg BID FRANCESCA Administration Aspirin 81 mg 03/11/22 10:00 03/22/22 11:17 Aspirin 81 Mg Tab Chew PO 81 mg QDAY FRANCESCA Administration Atorvastatin Calcium 40 mg 03/11/22 22:00 03/22/22 01:53 Atorvastatin 40 Mg Tab PO 40 mg QHS FRANCESCA Administration Doxazosin Mesylate 4 mg 03/18/22 18:00 03/22/22 11:15 Doxazosin 4 Mg Tab PO 4 mg QDAY FRANCESCA Administration Enoxaparin Sodium 80 mg 03/14/22 10:00 03/22/22 11:15 Enoxaparin 80 Mg/0.8 Ml Inj SUB-Q 80 mg Q12HR FRANCESCA Administration Famotidine 20 mg 03/14/22 10:00 03/22/22 11:15 Famotidine 20 Mg Tab PO 20 mg DAILY FRANCESCA Administration Haloperidol Lactate 5 mg 03/10/22 18:12 03/22/22 01:56 Haloperidol Lactate 5 Mg/1 Ml Inj IV 5 mg Q6H PRN Administration Agitation Hydralazine HCl 10 mg 03/18/22 12:35 03/18/22 13:18 Hydralazine 20 Mg/1 Ml Inj IV 10 mg Q6HR PRN Administration Blood Pressure Sodium Chloride 1,000 mls @ 100 mls/hr 03/16/22 11:00 03/21/22 06:00 Nacl 0.45% 1000 Ml IV 25 mls/hr DIRECT FRANCESCA Administration Methotrexate 2.5 mg 03/11/22 16:00 03/18/22 18:45 Methotrexate 2.5 Mg Tab (Dose Weekly Only) PO 2.5 mg Fr FRANCESCA Administration Metoprolol Tartrate 100 mg 03/17/22 22:00 03/22/22 11:16 Metoprolol Tartrate 100 Mg Tab PO 100 mg BID FRANCESCA Administration Morphine Sulfate 2 mg 03/08/22 20:07 03/18/22 10:37 Morphine 4 Mg/1 Ml Inj IV 2 mg Q8H PRN Administration Pain , Severe (7-10) Nicotine 21 mg 03/10/22 10:00 03/22/22 11:17 Nicotine 21 Mg/24 Hr Patch TD 21 mg QDAY FRANCESCA Administration Oxycodone/Acetaminophen 1 tab 03/08/22 20:07 03/11/22 21:37 Oxycodone /Acetaminophen 5-325mg Tab PO 1 tab Q6H PRN Administration Pain, Moderate (4-6) Prednisone 10 mg 03/17/22 10:00 03/22/22 11:17 Prednisone 10 Mg Tab PO 10 mg BID FRANCESCA Administration Quetiapine Fumarate 50 mg 03/18/22 22:00 03/22/22 01:53 Quetiapine 25 Mg Tab PO 50 mg QHS FRANCESCA Administration Sodium Bicarbonate 325 mg 03/20/22 13:20 03/20/22 14:30 Sodium Bicarbonate 325 Mg Tab FEEDTUBE 325 mg PRN PRN Administration For Clogged Feeding Tube Sodium Chloride 10 ml 03/08/22 22:00 03/22/22 11:18 Sodium Chloride 0.9% 10 Ml Flush Syringe IV 10 ml BID FRANCESCA Administration Sodium Chloride 10 ml 03/08/22 20:07 Sodium Chloride 0.9% 10 Ml Flush Syringe IV PRN PRN LINE FLUSH Tramadol HCl 50 mg 03/08/22 20:11 03/21/22 13:25 Tramadol 50 Mg Tab PO 50 mg Q6H PRN Administration Pain, Moderate (4-6)
--- NOTE | 2022-03-23 08:49 | Discharge Summary ---
Providers - Providers Date of Admission: 03/08/22 20:07 Date of discharge: 03/23/22 Attending physician: YAO YUEN 03/08/22 Consult to Cardiac Rehabilitation [CONS] Routine Reason For Exam: Phase I 03/08/22 20:09 Consult to Physician [CONS] Routine Comment: Consulting Provider: ZUNILDA PAREDES Physician Instructions: Reason For Exam: atrial fib 03/08/22 20:12 Consult to Physician [CONS] Routine Comment: Consulting Provider: YANETH VALADEZ Physician Instructions: Reason For Exam: marie 03/09/22 15:56 Occupational Therapy Evaluate and Treat [CONS] Routine Comment: Reason For Exam: Debility Physical Therapy Evaluation and Treat [CONS] Routine Comment: Reason For Exam: Debility 03/11/22 15:35 Consult to Mental Health [CONS] Routine Reason For Exam: psychosis 03/12/22 07:37 Consult to Physician [CONS] Routine Comment: called office/ adriana Consulting Provider: DONAVAN PRESSLEY Physician Instructions: Reason For Exam: sepsis 03/13/22 15:49 Consult to Dietitian/Nutrition [CONS] Routine Physician Instructions: Reason For Exam: Reason for Consult: Write/Manage Tube Feeding 03/14/22 12:49 Consult to Physician [CONS] Routine Comment: Consulting Provider: TAMIKA VILLARREAL Physician Instructions: Reason For Exam: Encephalopathy 03/18/22 11:45 Speech Therapy Evaluation and Treat [CONS] Routine Reason For Exam: dysphagia 03/21/22 16:22 Speech Therapy Evaluation and Treat [CONS] Routine Reason For Exam: aspiration. eval for dysphagia Primary care physician: KING POLLACK Hospitalization Reason for admission: NSTEMI, AFib with RVR, AMS and MARIE Condition: Stable Hospital course: This is a 67-year-old male with known past medical history of vascular dementia, cerebral atherosclerosis, BPH, gastric bypass, renal insufficency, HTN, thoracic aortic aneurysm without rupture, nicotine dependence, benign lungs nodules s/p LDCT, RA, and debility admitted for NSTEMI, AFib with RVR, and MARIE Assessment and Plan #Acute Metabolic Encephalopathy #Vascular Dementia #Possible Frontotemporal Lobe Dementia #Possible Alzheimer's Disease - Presented with increased weakness and decreased responsiveness over the past 1 week - Probably secondary to above - Mentation improved this am, still with periods of confusion - Verbal prompting, verbal redirection - Avoid benzodiazepine to reduce the possibility of delirium - Maintenance of sleep-wake cycle - ST eval now that patient is more alert - MRI brain demonstrates advance diffuse cerebral atrophy, more prominent than it should be at someone his age. #Acute hypoxic respiratory failure #Bilateral pneumonia #NSTEMI (non-ST elevated myocardial infarction), type II NC from sepsis #New Onset Atrial Fibrillation with RVR #Hypertension - Presented with AMS, found in AFib with RVR in the ED with elevated troponin - No report of previous Afib history, most likely new onset - Troponin downtrending - Per patient's brother patient sees a PCP in [place], however patient has been refusing to go to the doctor - s/p Chey gtt - Cardiology consulted, appreciate recommendations - Patient is ST with PACs on the monitor. Per cardio most likely MATs. Patient denied any chest pain, VSS - On Amiodarone - Continue BB and therapeutic Lovenox - 2D Echo noted, EF 25-30% - Continue blood pressure monitor per protocol - Maintain SBP less than 160 - respiratory distress on 03/17, cxr demonstrated pulmonary edema. Diuresed with lasix (now d/c). maintain strict I/O. D/c IVF. hydration via NG or po if possible. #Acute kidney injury(MARIE) due to vasomotor nephropathy (stable) - Baseline renal function is unknown, most likely prerenal secondary to above - Renal function remains stable - Neprology consulted, appreciated recommendations - Strict intake and output - Avoid nephrotoxic medications; Renally dose medications - Monitor and replace electrolytes as needed #Sepsis - Presented with leukocytosis, tachycardia, and diagnosis of bilateral pneumonia - X1 dose of Empiric IV antibiotic given in the ED - UA unremakarble, Blood cultures with NGTD - Patient remains afebrile, leukocytosis improved - Will continue to monitor for now - F/u on cultures #Severe Arthritis #Debility - Supportive measures - PRN analgesia for pain control - PT/OT consulted - resumed home methotrexate and prednisone #Nicotine Dependence #THC - Per patient he smoke at least a pack a day - Was initially on wellbutrin at home, but was switched to Chantix back in August - smoking cessation education provided. Patient verbalized understanding and agreed with the info provided - Nicotine qDay - Mental/Psych consulted for further eval #GI/DVT Prophylaxis - PPI- Pepcid - Lovenox SubQ - SCDs bilateral lower extremities while in bed Hospital Course to Date: 03/09: Stable on RA, denied ay pain nor any discomfort at this time. SR with PACs noted on the monitor, VSS. Renal function mild improvement in renal function this am. Continue schedule BB for rate control and therapeutic Lovenox subQ. 2D echo pending and Cardiology consulted. Nephrology is also following. 03/10: More awake today but confused, remains stable on RA. ST with frequent PACs, VSS. Per cardio patient is most likely in MATs. 2D echo still pending, continue BB. Renal function is stable, continue current care per nephro. Nicotine patch added for increase cigarettes urges. Patient's brother provided contact for 3 providers who patient have seen in the past, medical records requested. 03/11: On amiodarone gtt per cardio. Remains in ST with PACs on the monitor, VSS. Plan to switch amio gtt, continue BB. Received records from patient's providers, medical history updated. Per records patient was on Wellbutrin for tobacco dependence but was switched to Chantix in August of this year and patient has not been seen by any of these providers since August 2021. Mental health/spych was also consulted for further eval and treat. 03/12: Patient seen and examined Case discussed with infectious disease concerning for possible sepsis chest x-ray reviewed no acute pneumonia UA without any concern for UTI. Patient does have some abdominal tenderness for which have ordered a CT abdomen and pelvis with oral contrast to further evaluate. We will monitor for worsening renal function as patient has a baseline CKD. Unfortunately due to this cannot get IV contrast. ID started the patient on cefepime 1 g every 12 hours while we will monitor. In the meantime patient can be transferred to telemetry continues on amiodarone p.o. for A. fib. Remains critically ill at this time. 03/13: Patient seen and examined, more lethargic today, May need NGT for Tube feeds if not improving. CTAP was unremarkable. Will start on fluids, cultures remains negative, low grade temp noted. May need LP if no improvement in am. UDS positive for THC on 03/08 No family present. Lady friend visited yesterday, not sure relationship to discuss his clinical condition. Received rispiradone but was already with similar lethargy at the time. 03/14: Patient seen and examined more awake today compared to yesterday but still not following any commands. CT head is negative.. ID broadened antibiotics and recommended lumbar puncture as there is no explanation as to the patient's altered mental status that has remained persistent. Again patient was given Ativan a few days ago for CT although that his mental status was still altered he was at least conversational. Lumbar puncture could not be performed today because the patient was moving around a lot. I am avoiding giving a repeat Ativan as I believe that this may have contributed to this recent change. We will await a.m. on reevaluation. NG tube has been placed patient tolerating diet through that. Will need some rehab prior to discharge when clinically improved. Creatinine remains 2.0 we will continue to monitor and trend. Nephrology input appreciated. Due to broaden antibiotics we will start on gentle hydration for renal protection purposes. Again as mentioned I updated patient's brother yesterday who will call back to let us know if the patient's longstanding girlfriend can make decisions. 03/15: Patient seen today. Off to radiology suite for LP. Will follow CSF analysis ordered. Continue tx with vancomycin/cefepime/ampicillin/acylcovir. Per RN, this AM patient was able to recite name and answer some yes/no questions. Will need reassessment tomorrow for mental status. Will need continued PT/OT. 03/16: Remains AOX 1 however is confused. Follows commands but not able to answer further line of questioning. Unclear if this is patinet's baseline as he does have a documented history of dementia in chart. PT/OT recommend MARIBELL. Will need continued assessments. Continue therapy with vanc/cefepime/ampicillin/acyclovir per ID direction. 03/17: Tachypneic and in respiratory distress this AM. Stat CXR and abg ordered. CXR appears to demonstrate patchy airspace disease in mid/upper lung field. COVID PCR sent. Lasix 40 mg IV x 1 ordered. Breathing treatment admin. Talked to patient brother Alfonzo Johnson [phone]. Updated on patient care. Per brother, patient has been declining for approximatley 1 mo prior to admission. He was becoming increasingly lethargic and confused. Patient would simply lay in bed and have difficulties completing ADL's. He was frequently incontinent in bed. Pt brother had tried to convince brother to present to ED sooner but Pt would refuse. LP unfortunately has been unable to be completed at this point due to patient aggitation/confusion and inability to lay still. Diagnostic yield of LP would likely be low at this point given his empiric therapy for meningitis. MRI brain would be useful but again given aggitation/confusion would be difficult to perform properly. When patient becomes more clinically stable, may reattempt this. EEG is still pending. Ordered workup for HIV, syphilis, HSV. May need to consider autoimmune etiology as patient does have a history of rheumatoid arthritis. may consider short course of pulse steroids in future. Will continue to follow subspecialist recommendations. 03/18: NG pulled overnight. However, patient is more oriented, alert this AM (able to recite name, brothers name, answer simple yes/no questioning). Plan for ST eval today. Will attempt MRI brain w/o con. Leukocytosis inc to 17K. No fevers noted overnight. Patient respiratory status improved with diuresis, however renal function worsened. Will stop lasix. Continue strict I/O monitoring. 03/19: Continued improvement in mental status. Patient was able to recent the year, his name, brother's name. He asked why he was in the hospital (which he clearly recognized). He does remain lethargic and at continued risk for aspiration. ST evaluation notes that patient is still aspiration risk. Will follow final recommendations, patient may need a PEG tube. MRI brain was negative for acute findings however there are findings of advanced diffuse cerebral atrophy, more prominent than a normal study for someone his age. There is some concern for Alzheimer's disease or Pick's Disease. Will discuss findings with patient brother. 03/20: Able to answer questions. Alert, orientation fluctuates but knows name and some distant facts (brothers name etc). no speech therapy at hospital today, will await for reassessment of swallowing to assess aspiratoin risk prior to consultation to GI. called brothers Alfonzo and Michael and updated on patient clinical status. Ultimately, I explained that pt likely has advanced dementia and doubt there is any metabolic or infectious etiology. I stated that I would discuss with our subspecialists to see if other etiologies could be possible. Ultimately patient disposition is SNF. CM has already made referrals to [facility]. 03/21: More drowsy this AM. D/w ID, ok to d/c abx as patient has completed th erapy for aspiration pneumonia. Additionally, no meningeal enchancement seen on MRI, ok to d/c abx. Patient accepted at [facility]. Will await final speech evaluation to see if patient remains aspiration risk. Will see if patient will require PEG tube. 03/22: Brain MRI showed extensive atrophy with no acute abnormality. No evidence of brain abscess or any meningeal enhancement patient completed treatment for aspiration pneumonia and antibiotics discontinued. Await speech therapy evaluation to determine whether patient will need PEG placement. Evaluation completed on the revealed aspiration risk 03/23: Speech therapy cleared the patient for mechanical soft diet. No need for PEG placement. Patient had a EEG completed on 03/15 which was negative for seizures. Nephrology reports acute kidney injury is superimposed on CKD in the setting of A. fib with RVR. Creatinine leveled off. Cardiology reports patient to continue amiodarone, metoprolol for A. fib with RVR. Also, cardiology recommends discontinuing Lovenox and starting Eliquis 5 mg twice daily for anticoagulation with A. fib. Case management reports patient has placement. Dedicated discharge time 35 minutes. Disposition: 03 INTERMEDIATE FACILITY Final Discharge Diagnosis (Prints w/discharge instructions): Sepsis, toxic metabolic encephalopathy, vascular dementia, frontotemporal lobe dementia, Alzheimer's disease, acute hypoxic respiratory failure, bilateral pneumonia, NSTEMI, new onset atrial fibrillation with RVR, hypertension, acute kidney injury due to vasomotor nephropathy, severe arthritis, debility, nicotine dependence, Core Measure Documentation - Palliative Care Palliative Care/ Comfort Measures: Not Applicable - Core Measures Any of the following diagnoses?: none Exam - Constitutional Vitals: Temp Pulse Resp BP Pulse Ox 97.9 F 80 19 154/82 99 03/23/22 07:55 03/23/22 07:55 03/23/22 03:43 03/23/22 07:55 03/23/22 07:55 General appearance: Present: no acute distress, well-nourished - EENT Eyes: Present: PERRL ENT: hearing intact, clear oral mucosa - Neck Neck: Present: supple, normal ROM - Respiratory Respiratory effort: normal Respiratory: bilateral: CTA - Cardiovascular Heart Sounds: Present: S1 & S2. Absent: rub, click - Extremities Extremities: pulses symmetrical, No edema Peripheral Pulses: within normal limits - Abdominal General gastrointestinal: Present: soft, non-tender, non-distended, normal bowel sounds Male genitourinary: Present: normal - Integumentary Integumentary: Present: clear, warm, dry - Musculoskeletal Musculoskeletal: gait normal, strength equal bilaterally - Psychiatric Psychiatric: appropriate mood/affect, intact judgment & insight - Neurologic Neurologic: CNII-XII intact, moves all extremities Plan Activity: advance as tolerated Weight Bearing Status: Non-Weight Bearing Diet: other (Dysphagia mechanical soft ground with regular thin liquids) Follow up with: KING POLLACK MD [Primary Care Provider] - 3-5 Days
[2022-03-23 09:46] LABS: Hematocrit 22.1 % (35.5-45.6); Hemoglobin 6.9 gm/dl (11.8-15.2); Mean Corpuscular Volume 80 fl (84-94); Red Blood Count 2.76 M/mm3 (3.65-5.03)
[2022-03-23 09:47] LABS: Basophils % (Auto) 0.2 % (0.0-1.8); Eosinophils % (Auto) 0.2 % (0.0-4.3); Lymphocytes # (Auto) 1.1 K/mm3 (1.2-5.4); Lymphocytes % (Auto) 8.2 % (13.4-35.0); Mean Corpuscular HGB Conc 31 % (32-34); Mean Platelet Volume 8.7 fl (6-12); Monocytes # (Auto) 0.6 K/mm3 (0.0-0.8); Monocytes % (Auto) 4.6 % (0.0-7.3); Platelet Count 397 K/mm3 (140-440); Red Cell Distribution Width 17.4 % (13.2-15.2)
[2022-03-23 09:57] LABS: Calcium 8.7 mg/dL (8.4-10.2)
[2022-03-23] MEDS: FAMOTIDINE 20 MG TAB PO SCH (10:07)
[2022-03-23] MEDS: predniSONE 10 MG TAB PO SCH ×2 (10:07→21:34)
[2022-03-23] MEDS: NICOTINE 21 MG/24 HR PATCH TD SCH (10:07)
[2022-03-23] MEDS: APIXABAN 5 MG TAB PO SCH ×2 (10:07→22:17)
[2022-03-23] MEDS: ASPIRIN 81 MG TAB CHEW PO SCH (10:07)
[2022-03-23] MEDS: AMIODARONE 200 MG TAB PO SCH ×2 (10:07→21:34)
[2022-03-23] MEDS: METOPROLOL TARTRATE 100 MG TAB PO SCH ×2 (10:07→21:35)
[2022-03-23] MEDS: DOXAZOSIN 4 MG TAB PO SCH (10:07)
--- NOTE | 2022-03-23 11:01 | Progress Note ---
Assessment and Plan 1. Acute kidney injury: Vasomotor MARIE superimposed on CKD in the setting of A.Fib with RVR. Renal US negative. Monitor renal function. Increase in the Creatinine level noted. Spoke with the nurse to start IV fluids. Avoid nephrotoxic agents. Meds dosage based on GFR. 2. FEN: Replete lytes as needed. Monitor lytes and volume status. 3. A.fib with RVR: New diagnosis. Amio, Eliquis and Metoprolol. Followed by Cards. Monitor. 4. Acute metabolic encephalopathy, POA: Monitor. 5. NSTEMI (non-ST elevated myocardial infarction): EF: 25-30%. BB. Lovenox. Followed by Cards. 6. HFrEF: EF: 25-30%. 7. Microcytic Anemia, POA: Trend. Subjective: Patient was seen and examined at the bedside. Examination: General appearance: well-developed, appears stated age, no distress HEENT: atraumatic, no icterus Neck: trachea midline Respiratory: ctab Heart: S1S2, irregular, no murmur Abdomen: soft, bowel sounds heard, NT Integumentary: no obvious rash Neurologic: alert, moving extremities, confused Ext: UE edema : Arteaga catheter Subjective Date of service: 03/23/22 Principal diagnosis: NSTEMI ?Type 2 OK Objective - Vital Signs Vital signs: Vital Signs - 12hr 03/22/22 03/23/22 03/23/22 23:14 00:00 03:43 Temperature 97.4 F L 98.2 F Pulse Rate 82 63 67 Respiratory 19 19 Rate Blood Pressure 161/66 146/77 O2 Sat by Pulse 98 99 Oximetry 03/23/22 03/23/22 03/23/22 04:00 07:48 07:55 Temperature 97.9 F Pulse Rate 58 L 80 Respiratory Rate Blood Pressure 154/82 O2 Sat by Pulse 97 99 Oximetry - Lab 03/23/22 Unknown 03/23/22 Unknown Most recent lab results ABG pH 7.433 pH Units (7.350-7.450) 03/17/22 09:00 ABG pCO2 27.6 mm Hg 03/17/22 09:00 ABG pO2 61.0 mm Hg (80.0-90.0) L 03/17/22 09:00 ABG HCO3 18.0 mmol/L (20.0-26.0) L 03/17/22 09:00 ABG O2 Saturation 98.2 % (95.0-99.0) 03/17/22 09:00 Calcium 8.7 mg/dL (8.4-10.2) 03/23/22 Unknown Phosphorus 2.20 mg/dL (2.5-4.5) L 03/17/22 04:12 Magnesium 2.10 mg/dL (1.7-2.3) 03/17/22 04:12 Urine Creatinine 167.4 mg/dL (0.1-20.0) H 03/09/22 15:25 Urine Sodium 49 mmol/L 03/09/22 15:25 Medications & Allergies - Medications Allergies/Adverse Reactions: Allergies lisinopril Allergy (Verified 03/16/22 08:26) Hives Home Medications: Home Medications Medication Instructions Recorded Confirmed Last Taken Type Tamsulosin [Flomax] 0.4 mg PO QDAY #7 cap 08/28/15 03/16/22 Unknown Rx amLODIPine 10 mg PO DAILY #30 tab 08/28/15 03/16/22 Unknown Rx AtorvaSTATin [Lipitor] 40 mg PO QHS 03/11/22 03/16/22 Unknown History metHOTREXate sodium [Methotrexate] 15 mg PO 1XW 03/11/22 03/16/22 Unknown History predniSONE 10 mg PO BID 03/16/22 03/16/22 Unknown History Amiodarone [Cordarone 200 MG TAB] 200 mg PO BID tablet 03/23/22 Unknown Rx Apixaban [Eliquis] 5 mg PO Q12HR tablet 03/23/22 Unknown Rx Aspirin [Aspirin BABY CHEW TAB] 81 mg PO QDAY tab.chew 03/23/22 Unknown Rx Doxazosin [Cardura] 4 mg PO QDAY tablet 03/23/22 Unknown Rx Famotidine [Pepcid] 20 mg PO DAILY tablet 03/23/22 Unknown Rx Metoprolol [Lopressor TAB] 100 mg PO BID tablet 03/23/22 Unknown Rx Nicotine [Habitrol] 21 mg TD QDAY patch 03/23/22 Unknown Rx QUEtiapine [SEROquel] 50 mg PO QHS tablet 03/23/22 Unknown Rx Active Medications: Generic Name Dose Route Start Last Admin Trade Name Freq PRN Reason Stop Dose Admin Acetaminophen 650 mg 03/08/22 20:07 03/15/22 07:13 Acetaminophen 325 Mg Tab PO 650 mg Q6H PRN Administration Pain MILD(1-3)/Fever >100.5/HILTON Albuterol 2.5 mg 03/08/22 20:07 03/17/22 08:31 Albuterol 2.5 Mg/3 Ml Nebu IH 2.5 mg Q3HRT PRN Administration Shortness Of Breath Amiodarone HCl 200 mg 03/14/22 10:00 03/23/22 10:07 Amiodarone 200 Mg Tab PO 200 mg BID FRANCESCA Administration Apixaban 5 mg 03/23/22 10:00 03/23/22 10:07 Apixaban 5 Mg Tab PO 5 mg Q12HR FRANCESCA Administration Protocol Aspirin 81 mg 03/11/22 10:00 03/23/22 10:07 Aspirin 81 Mg Tab Chew PO 81 mg QDAY FRANCESCA Administration Atorvastatin Calcium 40 mg 03/11/22 22:00 03/22/22 22:00 Atorvastatin 40 Mg Tab PO 40 mg QHS FRANCESCA Administration Doxazosin Mesylate 4 mg 03/18/22 18:00 03/23/22 10:07 Doxazosin 4 Mg Tab PO 4 mg QDAY FRANCESCA Administration Famotidine 20 mg 03/14/22 10:00 03/23/22 10:07 Famotidine 20 Mg Tab PO 20 mg DAILY FRANCESCA Administration Haloperidol Lactate 5 mg 03/10/22 18:12 03/22/22 01:56 Haloperidol Lactate 5 Mg/1 Ml Inj IV 5 mg Q6H PRN Administration Agitation Hydralazine HCl 10 mg 03/18/22 12:35 03/18/22 13:18 Hydralazine 20 Mg/1 Ml Inj IV 10 mg Q6HR PRN Administration Blood Pressure Sodium Chloride 1,000 mls @ 100 mls/hr 03/16/22 11:00 03/21/22 06:00 Nacl 0.45% 1000 Ml IV 25 mls/hr DIRECT FRANCESCA Administration Methotrexate 2.5 mg 03/11/22 16:00 03/18/22 18:45 Methotrexate 2.5 Mg Tab (Dose Weekly Only) PO 2.5 mg Fr FRANCESCA Administration Metoprolol Tartrate 100 mg 03/17/22 22:00 03/23/22 10:07 Metoprolol Tartrate 100 Mg Tab PO 100 mg BID FRACNESCA Administration Morphine Sulfate 2 mg 03/08/22 20:07 08/12/22 10:37 Morphine 4 Mg/1 Ml Inj IV 2 mg Q8H PRN Administration Pain , Severe (7-10) Nicotine 21 mg 03/10/22 10:00 03/23/22 10:07 Nicotine 21 Mg/24 Hr Patch TD 21 mg QDAY FRANCESCA Administration Oxycodone/Acetaminophen 1 tab 03/08/22 20:07 03/11/22 21:37 Oxycodone /Acetaminophen 5-325mg Tab PO 1 tab Q6H PRN Administration Pain, Moderate (4-6) Prednisone 10 mg 03/17/22 10:00 03/23/22 10:07 Prednisone 10 Mg Tab PO 10 mg BID FRANCESCA Administration Quetiapine Fumarate 50 mg 03/18/22 22:00 03/22/22 22:44 Quetiapine 25 Mg Tab PO 50 mg QHS FRANCESCA Administration Sodium Bicarbonate 325 mg 03/20/22 13:20 03/20/22 14:30 Sodium Bicarbonate 325 Mg Tab FEEDTUBE 325 mg PRN PRN Administration For Clogged Feeding Tube Sodium Chloride 10 ml 03/08/22 22:00 03/23/22 10:08 Sodium Chloride 0.9% 10 Ml Flush Syringe IV 10 ml BID FRANCESCA Administration Sodium Chloride 10 ml 03/08/22 20:07 Sodium Chloride 0.9% 10 Ml Flush Syringe IV PRN PRN LINE FLUSH Tramadol HCl 50 mg 03/08/22 20:11 03/21/22 13:25 Tramadol 50 Mg Tab PO 50 mg Q6H PRN Administration Pain, Moderate (4-6)
[2022-03-23 12:00] LABS: Hematocrit 20.4 % (35.5-45.6); Hemoglobin 6.8 gm/dl (11.8-15.2); Mean Corpuscular HGB Conc 33 % (32-34); Mean Corpuscular Volume 79 fl (84-94); Platelet Count 361 K/mm3 (140-440); Red Blood Count 2.58 M/mm3 (3.65-5.03)
[2022-03-23] MEDS ORDERED: SODIUM CHLORIDE 0.9% 500 ML 500 ML IV NR (12:00)
[2022-03-23 12:11] LABS: INR 1.54 (0.87-1.13)
--- NOTE | 2022-03-23 12:20 | Progress Note ---
Assessment and Plan Patient is a 67-year-old male with a reported past medical history of vascular dementia, cerebral atherosclerosis, BPH, hypertension, nicotine dependence who presented to the ED yesterday for complaint of AMS x2. Altered mental status NSTEMI suspect type II MARIE Leukocytosis A. fib Hypertension Vascular dementia Echo 03/09/2022-EF 25 to 30%. Severe global hypokinesis of left ventricle. Moderate concentric LVH. Mild diastolic dysfunction is present impaired relaxation pattern. Moderate aortic regurgitation. No pericardial effusion Plan: Conservative cardiac mgmt recommended in light of mental status Telemetry reviewed patient remains in sinus rhythm Continue to Amio 200mg PO BID,and metoprolol 100mg PO BID May switch to Eliquis for anticoagulation Will hold NATALYA and ARB due to elevated creatinine and documented allergy Cardiac status otherwise stable. 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 Patient may also follow-up with our group [facility] logging specialist 1 to 2 weeks after discharge Pt seen in conjunction with Dr. Norton, who agrees with the assessment and plan of care - Patient Problems (1) Acute kidney injury (MARIE) with acute tubular necrosis (ATN) Current Visit: Yes Status: Acute (2) Altered mental status Current Visit: Yes Status: Acute (3) Atrial fibrillation with RVR Current Visit: Yes Status: Acute (4) CKD (chronic kidney disease) Current Visit: Yes Status: Acute (5) Cerebral atherosclerosis Current Visit: Yes Status: Chronic (6) Elevated troponin Current Visit: Yes Status: Acute (7) NSTEMI (non-ST elevated myocardial infarction) Current Visit: Yes Status: Acute (8) SIRS (systemic inflammatory response syndrome) Current Visit: Yes Status: Acute (9) Vascular dementia Current Visit: Yes Status: Chronic Qualifiers: Dementia behavioral disturbance: with behavioral disturbance Qualified Code(s): F01.51 - Vascular dementia with behavioral disturbance (10) Weakness Current Visit: Yes Status: Acute Subjective Date of service: 03/23/22 Principal diagnosis: NSTEMI ?Type 2 CO Interval history: Patient in bed in no acute distress. Patient remains with altered mental status. sinus 60s on monitor Objective Vital Signs Temp Pulse Resp BP Pulse Ox 03/23/22 11:12 98.3 F 62 99/63 93 03/23/22 10:00 82 96 03/23/22 07:55 97.9 F 80 154/82 99 03/23/22 07:48 97 03/23/22 04:00 58 L 03/23/22 03:43 98.2 F 67 19 146/77 99 03/23/22 00:00 63 03/22/22 23:14 97.4 F L 82 19 161/66 98 03/22/22 22:16 97 03/22/22 22:00 97 03/22/22 19:23 97.5 F L 65 20 152/76 97 03/22/22 19:00 60 03/22/22 17:17 97.8 F 75 18 135/85 98 03/22/22 15:13 98.0 F 60 18 130/67 98 - Physical Examination General: No Apparent Distress HEENT: Positive: Mucus Membranes Dry Neck: Positive: trachea midline. Negative: JVD/HJR Cardiac: Positive: Reg Rate and Rhythm Lungs: Positive: Normal Breath Sounds Neuro: Positive: Grossly Intact Abdomen: Positive: Soft Skin: Negative: Rash Extremities: Present: warm. Absent: edema - Labs and Meds Coagulation 03/23/22 Range/Units 11:01 PT 20.4 H (12.2-14.9) Sec. INR 1.54 H (0.87-1.13) APTT 32.0 (24.2-36.6) Sec. CBC 03/23/22 03/23/22 Range/Units 11:01 Unknown WBC 12.0 H 12.8 H (4.5-11.0) K/mm3 RBC 2.58 L 2.76 L (3.65-5.03) M/mm3 Hgb 6.8 L 6.9 L (11.8-15.2) gm/dl Hct 20.4 L 22.1 L (35.5-45.6) % Plt Count 361 397 (140-440) K/mm3 Lymph # (Auto) 1.1 L (1.2-5.4) K/mm3 [place] # (Auto) 0.6 (0.0-0.8) K/mm3 Eos # (Auto) 0.0 (0.0-0.4) K/mm3 Baso # (Auto) 0.0 (0.0-0.1) K/mm3 Comprehensive Metabolic Panel 03/23/22 Range/Units Unknown Sodium 139 (137-145) mmol/L Potassium 4.2 (3.6-5.0) mmol/L Chloride 106.6 (98-107) mmol/L Carbon Dioxide 19 L (22-30) mmol/L BUN 39 H (9-20) mg/dL Creatinine 2.5 H (0.8-1.3) mg/dL Glucose 100 (75-100) mg/dL Calcium 8.7 (8.4-10.2) mg/dL - Imaging and Cardiology EKG: report reviewed, image reviewed Echo: report reviewed - Telemetry EKG Rhythm: Sinus Rhythm - EKG Sinus rhythms and dysrhythmias: sinus rhythm Ventricular dysrhythmias: ventricular premature com Myocardial infarction: septal CO (old age or ind, anterior CO (old age or i - Allied health notes Allied health notes reviewed: nursing
[2022-03-23] MEDS: SODIUM CHLORIDE 0.45% 1000 ML 1,000 ML IV SCH (14:31)
[2022-03-23] MEDS: QUEtiapine 25 MG TAB PO SCH (21:35)
[2022-03-24] MEDS: SODIUM CHLORIDE 0.45% 1000 ML 1,000 ML IV SCH (02:49)
[2022-03-24 04:52] VITALS: BP 132/85
--- NOTE | 2022-03-24 08:07 | Progress Note ---
Assessment and Plan 1. Acute kidney injury: Vasomotor MARIE superimposed on CKD in the setting of A.Fib with RVR. Renal US negative. On IV fluids. Monitor renal function. Creatinine level is better today. Avoid nephrotoxic agents. Meds dosage based on GFR. 2. FEN: Replete lytes as needed. Monitor lytes and volume status. 3. A.fib with RVR: New diagnosis. Amio, Eliquis and Metoprolol. Followed by Cards. Monitor. 4. Acute metabolic encephalopathy, POA: Monitor. 5. NSTEMI (non-ST elevated myocardial infarction): EF: 25-30%. BB. Lovenox. Followed by Cards. 6. HFrEF: EF: 25-30%. 7. Microcytic Anemia, POA: Trend. Subjective: Patient was seen and examined at the bedside. Examination: General appearance: well-developed, appears stated age, no distress HEENT: atraumatic, no icterus Neck: trachea midline Respiratory: ctab Heart: S1S2, irregular, no murmur Abdomen: soft, bowel sounds heard, NT Integumentary: no obvious rash Neurologic: alert, moving extremities, confused Ext: UE edema : Arteaga catheter Subjective Date of service: 03/24/22 Principal diagnosis: NSTEMI ?Type 2 CO Objective - Vital Signs Vital signs: Vital Signs - 12hr 03/23/22 03/23/22 03/24/22 20:39 20:55 04:48 Temperature 98.4 F Pulse Rate 68 Respiratory 19 Rate Blood Pressure 132/85 O2 Sat by Pulse 97 96 96 Oximetry - Lab 03/23/22 Unknown 03/24/22 08:39 Most recent lab results ABG pH 7.433 pH Units (7.350-7.450) 03/17/22 09:00 ABG pCO2 27.6 mm Hg 03/17/22 09:00 ABG pO2 61.0 mm Hg (80.0-90.0) L 03/17/22 09:00 ABG HCO3 18.0 mmol/L (20.0-26.0) L 03/17/22 09:00 ABG O2 Saturation 98.2 % (95.0-99.0) 03/17/22 09:00 Calcium 8.7 mg/dL (8.4-10.2) 03/23/22 Unknown Phosphorus 2.20 mg/dL (2.5-4.5) L 03/17/22 04:12 Magnesium 2.10 mg/dL (1.7-2.3) 03/17/22 04:12 Urine Creatinine 167.4 mg/dL (0.1-20.0) H 03/09/22 15:25 Urine Sodium 49 mmol/L 03/09/22 15:25 Medications & Allergies - Medications Allergies/Adverse Reactions: Allergies lisinopril Allergy (Verified 03/16/22 08:26) Hives Home Medications: Home Medications Medication Instructions Recorded Confirmed Last Taken Type Tamsulosin [Flomax] 0.4 mg PO QDAY #7 cap 08/28/15 03/16/22 Unknown Rx AtorvaSTATin [Lipitor] 40 mg PO QHS 03/11/22 03/16/22 Unknown History metHOTREXate sodium [Methotrexate] 15 mg PO 1XW 03/11/22 03/16/22 Unknown History predniSONE 10 mg PO BID 03/16/22 03/16/22 Unknown History Amiodarone [Cordarone 200 MG TAB] 200 mg PO BID tablet 03/23/22 Unknown Rx Apixaban [Eliquis] 5 mg PO Q12HR tablet 03/23/22 Unknown Rx Aspirin [Aspirin BABY CHEW TAB] 81 mg PO QDAY tab.chew 03/23/22 Unknown Rx Doxazosin [Cardura] 4 mg PO QDAY tablet 03/23/22 Unknown Rx Famotidine [Pepcid] 20 mg PO DAILY tablet 03/23/22 Unknown Rx Metoprolol [Lopressor TAB] 100 mg PO BID tablet 03/23/22 Unknown Rx Nicotine [Habitrol] 21 mg TD QDAY patch 03/23/22 Unknown Rx QUEtiapine [SEROquel] 50 mg PO QHS tablet 03/23/22 Unknown Rx amLODIPine 10 mg PO DAILY #30 tab 03/24/22 Unknown Rx Active Medications: Generic Name Dose Route Start Last Admin Trade Name Freq PRN Reason Stop Dose Admin Acetaminophen 650 mg 03/08/22 20:07 03/15/22 07:13 Acetaminophen 325 Mg Tab PO 650 mg Q6H PRN Administration Pain MILD(1-3)/Fever >100.5/HILTON Albuterol 2.5 mg 03/08/22 20:07 03/17/22 08:31 Albuterol 2.5 Mg/3 Ml Nebu IH 2.5 mg Q3HRT PRN Administration Shortness Of Breath Amiodarone HCl 200 mg 03/14/22 10:00 03/23/22 21:34 Amiodarone 200 Mg Tab PO 200 mg BID FRANCESCA Administration Apixaban 5 mg 03/23/22 10:00 03/23/22 22:17 Apixaban 5 Mg Tab PO 5 mg Q12HR FRANCESCA Administration Protocol Aspirin 81 mg 03/11/22 10:00 03/23/22 10:07 Aspirin 81 Mg Tab Chew PO 81 mg QDAY FRANCESCA Administration Atorvastatin Calcium 40 mg 03/11/22 22:00 03/23/22 21:34 Atorvastatin 40 Mg Tab PO 40 mg QHS FRANCESCA Administration Doxazosin Mesylate 4 mg 03/18/22 18:00 03/23/22 10:07 Doxazosin 4 Mg Tab PO 4 mg QDAY FRANCESCA Administration Famotidine 20 mg 03/14/22 10:00 03/23/22 10:07 Famotidine 20 Mg Tab PO 20 mg DAILY FRANCESCA Administration Haloperidol Lactate 5 mg 03/10/22 18:12 03/22/22 01:56 Haloperidol Lactate 5 Mg/1 Ml Inj IV 5 mg Q6H PRN Administration Agitation Hydralazine HCl 10 mg 03/18/22 12:35 03/18/22 13:18 Hydralazine 20 Mg/1 Ml Inj IV 10 mg Q6HR PRN Administration Blood Pressure Sodium Chloride 1,000 mls @ 100 mls/hr 03/16/22 11:00 03/24/22 02:49 Nacl 0.45% 1000 Ml IV 25 mls/hr DIRECT FRANCESCA Administration Methotrexate 2.5 mg 03/11/22 16:00 03/18/22 18:45 Methotrexate 2.5 Mg Tab (Dose Weekly Only) PO 2.5 mg Fr FRANCESCA Administration Metoprolol Tartrate 100 mg 03/17/22 22:00 03/23/22 21:35 Metoprolol Tartrate 100 Mg Tab PO 100 mg BID FRANCESCA Administration Morphine Sulfate 2 mg 03/08/22 20:07 03/18/22 10:37 Morphine 4 Mg/1 Ml Inj IV 2 mg Q8H PRN Administration Pain , Severe (7-10) Nicotine 21 mg 03/10/22 10:00 03/23/22 10:07 Nicotine 21 Mg/24 Hr Patch TD 21 mg QDAY FRANCESCA Administration Oxycodone/Acetaminophen 1 tab 03/08/22 20:07 03/11/22 21:37 Oxycodone /Acetaminophen 5-325mg Tab PO 1 tab Q6H PRN Administration Pain, Moderate (4-6) Prednisone 10 mg 03/17/22 10:00 03/23/22 21:34 Prednisone 10 Mg Tab PO 10 mg BID FRANCESCA Administration Quetiapine Fumarate 50 mg 03/18/22 22:00 03/23/22 21:35 Quetiapine 25 Mg Tab PO 50 mg QHS FRANCESCA Administration Sodium Bicarbonate 325 mg 03/20/22 13:20 03/20/22 14:30 Sodium Bicarbonate 325 Mg Tab FEEDTUBE 325 mg PRN PRN Administration For Clogged Feeding Tube Sodium Chloride 10 ml 03/08/22 22:00 03/23/22 21:36 Sodium Chloride 0.9% 10 Ml Flush Syringe IV 10 ml BID FRANCESCA Administration Sodium Chloride 10 ml 03/08/22 20:07 Sodium Chloride 0.9% 10 Ml Flush Syringe IV PRN PRN LINE FLUSH Tramadol HCl 50 mg 03/08/22 20:11 03/21/22 13:25 Tramadol 50 Mg Tab PO 50 mg Q6H PRN Administration Pain, Moderate (4-6)
[2022-03-24 09:15] LABS: Calcium 7.4 mg/dL (8.4-10.2)
--- NOTE | 2022-03-24 09:43 | Progress Note ---
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 #Acute hypoxic respiratory failure #Bilateral pneumonia #NSTEMI (non-ST elevated myocardial infarction), type II NV from sepsis #New Onset Atrial Fibrillation with RVR #Hypertension - Presented with AMS, found in AFib with RVR in the ED with elevated troponin - No report of previous Afib history, most likely new onset - Troponin downtrending - Per patient's brother patient sees a PCP in [place], however patient has been refusing to go to the doctor - s/p Chey gtt - Cardiology consulted, appreciate recommendations - Patient is ST with PACs on the monitor. Per cardio most likely MATs. Patient denied any chest pain, VSS - On Amiodarone - Continue BB and therapeutic Lovenox - 2D Echo noted, EF 25-30% - Continue blood pressure monitor per protocol - Maintain SBP less than 160 - respiratory distress on 03/17, cxr demonstrated pulmonary edema. Diuresed with lasix (now d/c). maintain strict I/O. D/c IVF. hydration via NG or po if possible. #Acute kidney injury(MARIE) due to vasomotor nephropathy (stable) - Baseline renal function is unknown, most likely prerenal secondary to above - Renal function remains stable - Neprology consulted, appreciated recommendations - Strict intake and output - Avoid nephrotoxic medications; Renally dose medications - Monitor and replace electrolytes as needed #Sepsis - Presented with leukocytosis, tachycardia, and diagnosis of bilateral pneumonia - X1 dose of Empiric IV antibiotic given in the ED - UA unremakarble, Blood cultures with NGTD - Patient remains afebrile, leukocytosis improved - Will continue to monitor for now - F/u on cultures #Severe Arthritis #Debility - Supportive measures - PRN analgesia for pain control - PT/OT consulted - resumed home methotrexate and prednisone #Nicotine Dependence #THC - Per patient he smoke at least a pack a day - Was initially on wellbutrin at home, but was switched to Chantix back in [facility] - smoking cessation education provided. Patient verbalized understanding and agreed with the info provided - Nicotine qDay - Mental/Psych consulted for further eval #GI/DVT Prophylaxis - PPI- Pepcid - Lovenox SubQ - SCDs bilateral lower extremities while in bed Hospital Course to Date: 03/09: Stable on RA, denied ay pain nor any discomfort at this time. SR with PACs noted on the monitor, VSS. Renal function mild improvement in renal function this am. Continue schedule BB for rate control and therapeutic Lovenox subQ. 2D echo pending and Cardiology consulted. Nephrology is also following. 03/10: More awake today but confused, remains stable on RA. ST with frequent PACs, VSS. Per cardio patient is most likely in MATs. 2D echo still pending, continue BB. Renal function is stable, continue current care per nephro. Nicotine patch added for increase cigarettes urges. Patient's brother provided contact for 3 providers who patient have seen in the past, medical records requested. 03/11: On amiodarone gtt per cardio. Remains in ST with PACs on the monitor, VSS. Plan to switch amio gtt, continue BB. Received records from patient's providers, medical history updated. Per records patient was on Wellbutrin for tobacco dependence but was switched to Chantix in August of this year and patient has not been seen by any of these providers since August 2021. Mental health/spych was also consulted for further eval and treat. 03/12: Patient seen and examined Case discussed with infectious disease concerning for possible sepsis chest x-ray reviewed no acute pneumonia UA without any concern for UTI. Patient does have some abdominal tenderness for which have ordered a CT abdomen and pelvis with oral contrast to further evaluate. We will monitor for worsening renal function as patient has a baseline CKD. Unfortunately due to this cannot get IV contrast. ID started the patient on cefepime 1 g every 12 hours while we will monitor. In the meantime patient can be transferred to telemetry continues on amiodarone p.o. for A. fib. Remains critically ill at this time. 03/13: Patient seen and examined, more lethargic today, May need NGT for Tube feeds if not improving. CTAP was unremarkable. Will start on fluids, cultures remains negative, low grade temp noted. May need LP if no improvement in am. UDS positive for THC on 03/08 No family present. Lady friend visited yesterday, not sure relationship to dis cuss his clinical condition. Received rispiradone but was already with similar lethargy at the time. 03/14: Patient seen and examined more awake today compared to yesterday but still not following any commands. CT head is negative.. ID broadened antibiotics and recommended lumbar puncture as there is no explanation as to the patient's altered mental status that has remained persistent. Again patient was given Ativan a few days ago for CT although that his mental status was still altered he was at least conversational. Lumbar puncture could not be performed today because the patient was moving around a lot. I am avoiding giving a repeat Ativan as I believe that this may have contributed to this recent change. We will await a.m. on reevaluation. NG tube has been placed patient tolerating diet through that. Will need some rehab prior to discharge when clinically improved. Creatinine remains 2.0 we will continue to monitor and trend. Nephrology input appreciated. Due to broaden antibiotics we will start on gentle hydration for renal protection purposes. Again as mentioned I updated patient's brother yesterday who will call back to let us know if the patient's longstanding girlfriend can make decisions. 03/15: Patient seen today. Off to radiology suite for LP. Will follow CSF analysis ordered. Continue tx with vancomycin/cefepime/ampicillin/acylcovir. Per RN, this AM patient was able to recite name and answer some yes/no questions. Will need reassessment tomorrow for mental status. Will need continued PT/OT. 03/16: Remains AOX 1 however is confused. Follows commands but not able to answer further line of questioning. Unclear if this is patinet's baseline as he does have a documented history of dementia in chart. PT/OT recommend MARIBELL. Will need continued assessments. Continue therapy with vanc/cefepime/ampicillin/acyclovir per ID direction. 03/17: Tachypneic and in respiratory distress this AM. Stat CXR and abg ordered. CXR appears to demonstrate patchy airspace disease in mid/upper lung field. COVID PCR sent. Lasix 40 mg IV x 1 ordered. Breathing treatment admin. Talked to patient brother Alfonzo Johnson [phone]. Updated on patient care. Per brother, patient has been declining for approximatley 1 mo prior to admission. He was becoming increasingly lethargic and confused. Patient would simply lay in bed and have difficulties completing ADL's. He was frequently incontinent in bed. Pt brother had tried to convince brother to present to ED sooner but Pt would refuse. LP unfortunately has been unable to be completed at this point due to patient aggitation/confusion and inability to lay still. Diagnostic yield of LP would likely be low at this point given his empiric therapy for meningitis. MRI brain would be useful but again given aggitation/confusion would be difficult to perform properly. When patient becomes more clinically stable, may reattempt this. EEG is still pending. Ordered workup for HIV, syphilis, HSV. May need to consider autoimmune etiology as patient does have a history of rheumatoid arthritis. may consider short course of pulse steroids in future. Will continue to follow subspecialist recommendations. 03/18: NG pulled overnight. However, patient is more oriented, alert this AM (able to recite name, brothers name, answer simple yes/no questioning). Plan for ST eval today. Will attempt MRI brain w/o con. Leukocytosis inc to 17K. No fevers noted overnight. Patient respiratory status improved with diuresis, however renal function worsened. Will stop lasix. Continue strict I/O monitoring . 03/19: Continued improvement in mental status. Patient was able to recent the year, his name, brother's name. He asked why he was in the hospital (which he clearly recognized). He does remain lethargic and at continued risk for aspiration. ST evaluation notes that patient is still aspiration risk. Will follow final recommendations, patient may need a PEG tube. MRI brain was negative for acute findings however there are findings of advanced diffuse cerebral atrophy, more prominent than a normal study for someone his age. There is some concern for Alzheimer's disease or Pick's Disease. Will discuss findings with patient brother. 03/20: Able to answer questions. Alert, orientation fluctuates but knows name and some distant facts (brothers name etc). no speech therapy at hospital today, judah l await for reassessment of swallowing to assess aspiratoin risk prior to consultation to GI. called brothers Alfonzo and Michael and updated on patient clinical status. Ultimately, I explained that pt likely has advanced dementia and doubt there is any metabolic or infectious etiology. I stated that I would discuss with our subspecialists to see if other etiologies could be possible. Ultimately patient disposition is SNF. CM has already made referrals to [facility]. 03/21: More drowsy this AM. D/w ID, ok to d/c abx as patient has completed therapy for aspiration pneumonia. Additionally, no meningeal enchancement seen on MRI, ok to d/c abx. Patient accepted at [facility]. Will await final speech evaluation to see if patient remains aspiration risk. Will see if patient will require PEG tube. 03/22: Brain MRI showed extensive atrophy with no acute abnormality. No evidence of brain abscess or any meningeal enhancement patient completed treatment for aspiration pneumonia and antibiotics discontinued. Await speech therapy evaluation to determine whether patient will need PEG placement. Evaluation completed on the revealed aspiration risk 03/23: Patient's creatinine had a slight bump to 2.5 today. Patient also with a hemoglobin of 6.9. Etiology of anemia is secondary to anemia of chronic disease. Patient will receive PRBCs and follow-up H&H. No signs of active bleeding. I discussed the case with nephrology wants to monitor the patient for today to ensure creatinine is not continuing to rise. If creatinine and hemoglobin are stable, patient will likely discharge tomorrow History Interval history: No new issues overnight Hospitalist Physical - Constitutional Vitals: Temp Pulse Resp BP Pulse Ox 98.4 F 68 19 132/85 96 03/24/22 04:48 03/24/22 04:48 03/24/22 04:48 03/24/22 04:48 03/24/22 04:48 General appearance: Present: no acute distress, well-nourished - EENT Eyes: Present: PERRL, EOM intact ENT: hearing intact, clear oral mucosa, dentition normal - Neck Neck: Present: supple, normal ROM - Respiratory Respiratory effort: normal Respiratory: bilateral: CTA - Cardiovascular Rhythm: regular Heart Sounds: Present: S1 & S2. Absent: gallop, rub - Extremities Extremities: no ischemia, No edema, Full ROM - Abdominal General gastrointestinal: soft, non-tender, non-distended, normal bowel sounds - Integumentary Integumentary: Present: clear, warm, dry - Neurologic Neurologic: CNII-XII intact, moves all extremities HEART Score - HEART Score Troponin: Troponin T 0.119 ng/mL (0.00-0.029) H* D 03/09/22 02:13 Results - Labs CBC & Chem 7: 03/23/22 Unknown 03/24/22 08:39 Labs: Laboratory Last Values WBC 12.8 K/mm3 (4.5-11.0) H 03/23/22 Unknown RBC 2.76 M/mm3 (3.65-5.03) L 03/23/22 Unknown Hgb 6.9 gm/dl (11.8-15.2) L 03/23/22 Unknown Hct 22.1 % (35.5-45.6) L 03/23/22 Unknown MCV 80 fl (84-94) L 03/23/22 Unknown MCH 25 pg (28-32) L 03/23/22 Unknown MCHC 31 % (32-34) L 03/23/22 Unknown RDW 17.4 % (13.2-15.2) H 03/23/22 Unknown Plt Count 397 K/mm3 (140-440) 03/23/22 Unknown Lymph % (Auto) 8.2 % (13.4-35.0) L 03/23/22 Unknown Dickinson % (Auto) 4.6 % (0.0-7.3) 03/23/22 Unknown Eos % (Auto) 0.2 % (0.0-4.3) 03/23/22 Unknown Baso % (Auto) 0.2 % (0.0-1.8) 03/23/22 Unknown Lymph # (Auto) 1.1 K/mm3 (1.2-5.4) L 03/23/22 Unknown Dickinson # (Auto) 0.6 K/mm3 (0.0-0.8) 03/23/22 Unknown Eos # (Auto) 0.0 K/mm3 (0.0-0.4) 03/23/22 Unknown Baso # (Auto) 0.0 K/mm3 (0.0-0.1) 03/23/22 Unknown Add Manual Diff Complete 03/09/22 02:13 Total Counted 100 03/09/22 02:13 Seg Neutrophils % 86.8 % (40.0-70.0) H 03/23/22 Unknown Seg Neuts % (Manual) 80.0 % (40.0-70.0) H 03/09/22 02:13 Band Neutrophils % 0 % 03/09/22 02:13 Lymphocytes % (Manual) 11.0 % (13.4-35.0) L 03/09/22 02:13 Reactive Lymphs % (Man) 0 % 03/09/22 02:13 Monocytes % (Manual) 8.0 % (0.0-7.3) H 03/09/22 02:13 Eosinophils % (Manual) 1.0 % (0.0-4.3) 03/09/22 02:13 Basophils % (Manual) 0 % (0.0-1.8) 03/09/22 02:13 Metamyelocytes % 0 % 03/09/22 02:13 Myelocytes % 0 % 03/09/22 02:13 Promyelocytes % 0 % 03/09/22 02:13 Blast Cells % 0 % 03/09/22 02:13 Nucleated RBC % Not Reportable 03/09/22 02:13 Seg Neutrophils # 11.1 K/mm3 (1.8-7.7) H 03/23/22 Unknown Seg Neutrophils # Man 8.5 K/mm3 (1.8-7.7) H 03/09/22 02:13 Band Neutrophils # 0.0 K/mm3 03/09/22 02:13 Lymphocytes # (Manual) 1.2 K/mm3 (1.2-5.4) 03/09/22 02:13 Abs React Lymphs (Man) 0.0 K/mm3 03/09/22 02:13 Monocytes # (Manual) 0.8 K/mm3 (0.0-0.8) 03/09/22 02:13 Eosinophils # (Manual) 0.1 K/mm3 (0.0-0.4) 03/09/22 02:13 Basophils # (Manual) 0.0 K/mm3 (0.0-0.1) 03/09/22 02:13 Metamyelocytes # 0.0 K/mm3 03/09/22 02:13 Myelocytes # 0.0 K/mm3 03/09/22 02:13 Promyelocytes # 0.0 K/mm3 03/09/22 02:13 Blast Cells # 0.0 K/mm3 03/09/22 02:13 WBC Morphology Not Reportable 03/09/22 02:13 Hypersegmented Neuts Not Reportable 03/09/22 02:13 Hyposegmented Neuts Not Reportable 03/09/22 02:13 Hypogranular Neuts Not Reportable 03/09/22 02:13 Smudge Cells Not Reportable 03/09/22 02:13 Toxic Granulation Not Reportable 03/09/22 02:13 Toxic Vacuolation Not Reportable 03/09/22 02:13 Dohle Bodies Not Reportable 03/09/22 02:13 Pelger-Huet Anomaly Not Reportable 03/09/22 02:13 Marylin Rods Not Reportable 03/09/22 02:13 Platelet Estimate Consistent w auto 03/09/22 02:13 Clumped Platelets Not Reportable 03/09/22 02:13 Plt Clumps, EDTA Not Reportable 03/09/22 02:13 Large Platelets Not Reportable 03/09/22 02:13 Giant Platelets Not Reportable 03/09/22 02:13 Platelet Satelliting Not Reportable 03/09/22 02:13 Plt Morphology Comment Not Reportable 03/09/22 02:13 RBC Morphology Normal 03/09/22 02:13 Dimorphic RBCs Not Reportable 03/09/22 02:13 Polychromasia Not Reportable 03/09/22 02:13 Hypochromasia Not Reportable 03/09/22 02:13 Poikilocytosis Not Reportable 03/09/22 02:13 Anisocytosis Not Reportable 03/09/22 02:13 Microcytosis Not Reportable 03/09/22 02:13 Macrocytosis Not Reportable 03/09/22 02:13 Spherocytes Not Reportable 03/09/22 02:13 Pappenheimer Bodies Not Reportable 03/09/22 02:13 Sickle Cells Not Reportable 03/09/22 02:13 Target Cells Not Reportable 03/09/22 02:13 Tear Drop Cells Not Reportable 03/09/22 02:13 Ovalocytes Not Reportable 03/09/22 02:13 Helmet Cells Not Reportable 03/09/22 02:13 [place] Bodies Not Reportable 03/09/22 02:13 Tumtum Rings Not Reportable 03/09/22 02:13 Rudyard Cells Not Reportable 03/09/22 02:13 Bite Cells Not Reportable 03/09/22 02:13 Crenated Cell Not Reportable 03/09/22 02:13 Elliptocytes Not Reportable 03/09/22 02:13 Acanthocytes (Spur) Not Reportable 03/09/22 02:13 Rouleaux Not Reportable 03/09/22 02:13 Hemoglobin C Crystals Not Reportable 03/09/22 02:13 Schistocytes Not Reportable 03/09/22 02:13 Malaria parasites Not Reportable 03/09/22 02:13 Cristino Bodies Not Reportable 03/09/22 02:13 Hem Pathologist Commnt No 03/09/22 02:13 PT 20.4 Sec. (12.2-14.9) H 03/23/22 11:01 INR 1.54 (0.87-1.13) H 03/23/22 11:01 APTT 32.0 Sec. (24.2-36.6) 03/23/22 11:01 ABG pH 7.433 pH Units (7.350-7.450) 03/17/22 09:00 ABG pCO2 27.6 mm Hg 03/17/22 09:00 ABG pO2 61.0 mm Hg (80.0-90.0) L 03/17/22 09:00 ABG HCO3 18.0 mmol/L (20.0-26.0) L 03/17/22 09:00 ABG O2 Saturation 98.2 % (95.0-99.0) 03/17/22 09:00 ABG O2 Content 10.9 (0.0-44) 03/13/22 16:05 ABG Base Excess -5.8 mmol/L (-2.0-3.0) L 03/17/22 09:00 ABG Hemoglobin 5.3 gm/dl (14.0-18.0) L 03/17/22 09:00 ABG Carboxyhemoglobin 1.7 % (0.0-5.0) 03/17/22 09:00 ABG Methemoglobin 0.2 % (0.0-1.5) 03/17/22 09:00 Oxyhemoglobin 96.4 % (95.0-99.0) 03/17/22 09:00 FiO2 32 % 03/17/22 09:00 Sodium 131 mmol/L (137-145) L D 03/24/22 08:39 Potassium 3.7 mmol/L (3.6-5.0) 03/24/22 08:39 Chloride 104.5 mmol/L (98-107) 03/24/22 08:39 Carbon Dioxide 17 mmol/L (22-30) L 03/24/22 08:39 Anion Gap 13 mmol/L 03/24/22 08:39 BUN 38 mg/dL (9-20) H 03/24/22 08:39 Creatinine 2.1 mg/dL (0.8-1.3) H 03/24/22 08:39 Estimated GFR 38 ml/min 03/24/22 08:39 BUN/Creatinine Ratio 18 % 03/24/22 08:39 Glucose 84 mg/dL (75-100) 03/24/22 08:39 POC Glucose 98 mg/dL (70-105) 03/24/22 06:51 Lactic Acid 1.40 mmol/L (0.7-2.0) 03/08/22 12:29 Calcium 7.4 mg/dL (8.4-10.2) L 03/24/22 08:39 Phosphorus 2.20 mg/dL (2.5-4.5) L 03/17/22 04:12 Magnesium 2.10 mg/dL (1.7-2.3) 03/17/22 04:12 Total Bilirubin 0.30 mg/dL (0.1-1.2) 03/18/22 05:17 AST 36 units/L (5-40) 03/18/22 05:17 ALT 21 units/L (7-56) 03/18/22 05:17 Alkaline Phosphatase 163 units/L (35-129) H 03/18/22 05:17 Ammonia 10.0 umol/L (25-60) L 03/13/22 19:38 Total Creatine Kinase 53 units/L (55-170) L 03/08/22 12:29 Troponin T 0.119 ng/mL (0.00-0.029) H* D 03/09/22 02:13 C-Reactive Protein 16.20 mg/dL (0.00-1.30) H 03/08/22 12:29 Total Protein 7.2 g/dL (6.3-8.2) 03/18/22 05:17 Albumin 2.1 g/dL (3.9-5) L 03/18/22 05:17 Albumin/Globulin Ratio 0.4 % 03/18/22 05:17 Triglycerides 105 mg/dL (2-149) 03/08/22 12:29 Cholesterol 136 mg/dL (50-199) 03/08/22 12:29 LDL Cholesterol Direct 76 mg/dL (50-130) 03/08/22 12:29 HDL Cholesterol 35 mg/dL (40-59) L 03/08/22 12:29 Cholesterol/HDL Ratio 3.88 % 03/08/22 12:29 PTH Intact 45.32 pg/mL (15-65) 03/11/22 03:52 Urine Color Yellow (Yellow) 03/08/22 14:38 Urine Turbidity Clear (Clear) 03/08/22 14:38 Urine pH 6.0 (5.0-7.0) 03/08/22 14:38 Ur Specific [place] 1.015 (1.003-1.030) 03/08/22 14:38 Urine Protein 30 mg/dl mg/dL (Negative) 03/08/22 14:38 Urine Glucose (UA) Negative mg/dL (Negative) 03/08/22 14:38 Urine Ketones Negative mg/dL (Negative) 03/08/22 14:38 Urine Blood 1+ (Negative) 03/08/22 14:38 Urine Nitrite Negative (Negative) 03/08/22 14:38 Ur Reducing Substances Negative (Negative) 03/08/22 14:38 Urine Bilirubin Negative (Negative) 03/08/22 14:38 Urine Urobilinogen 0.0 mg/dL (<2.0) 03/08/22 14:38 Ur Leukocyte Esterase Negative (Negative) 03/08/22 14:38 Urine WBC (Auto) 3.0 /HPF (0.0-6.0) 03/08/22 14:38 Urine RBC (Auto) 5.0 /HPF (0.0-6.0) 03/08/22 14:38 U Epithel Cells (Auto) 3.0 /HPF (0-13.0) 03/08/22 14:38 Urine Bacteria (Auto) 1+ /HPF (Negative) 03/08/22 14:38 Hyaline Casts 2 /LPF 03/08/22 14:38 Urine Mucus 1+ /HPF 03/08/22 14:38 Urine Creatinine 167.4 mg/dL (0.1-20.0) H 03/09/22 15:25 Urine Sodium 49 mmol/L 03/09/22 15:25 Vancomycin Trough 21.1 ug/mL (5.0-20.0) H 03/19/22 15:35 Salicylates < 0.3 mg/dL (2.8-20.0) L 03/08/22 12:29 Urine Opiates Screen Negative 03/08/22 14:38 Urine Methadone Screen Negative 03/08/22 14:38 Acetaminophen 5.0 ug/mL (10.0-30.0) L 03/08/22 12:29 Ur Barbiturates Screen Negative 03/08/22 14:38 Ur Phencyclidine Scrn Negative 03/08/22 14:38 Ur Amphetamines Screen Negative 03/08/22 14:38 U Benzodiazepines Scrn Negative 03/08/22 14:38 Urine Cocaine Screen Negative 03/08/22 14:38 U Marijuana (THC) Screen Positive 03/08/22 14:38 Drugs of Abuse Note Disclamer 03/08/22 14:38 Plasma/Serum Alcohol < 0.01 % (0-0.07) 03/08/22 12:29 Syphilis IgG/IgM Ab Nonreactive (NonReactive) 03/17/22 13:16 Coronavirus (PCR) Negative (Negative) 03/17/22 09:54 HIV 1&2 Antibody Rapid Non react (Non React) 03/17/22 13:16 HIV P24 Antigen Non react (Non React) 03/17/22 13:16 Blood Type O POSITIVE 03/23/22 13:45 Antibody Screen Negative 03/23/22 13:45 Crossmatch See Detail 03/23/22 13:45 Arteaga/IV: Voiding Method Indwelling Catheter Active Medications - Current Medications Current Medications: Generic Name Dose Route Start Last Admin Trade Name Freq PRN Reason Stop Dose Admin Acetaminophen 650 mg 03/08/22 20:07 03/15/22 07:13 Acetaminophen 325 Mg Tab PO 650 mg Q6H PRN Administration Pain MILD(1-3)/Fever >100.5/HILTON Albuterol 2.5 mg 03/08/22 20:07 03/17/22 08:31 Albuterol 2.5 Mg/3 Ml Nebu IH 2.5 mg Q3HRT PRN Administration Shortness Of Breath Amiodarone HCl 200 mg 03/14/22 10:00 03/23/22 21:34 Amiodarone 200 Mg Tab PO 200 mg BID FRANCESCA Administration Apixaban 5 mg 03/23/22 10:00 03/23/22 22:17 Apixaban 5 Mg Tab PO 5 mg Q12HR FRANCESCA Administration Protocol Aspirin 81 mg 03/11/22 10:00 03/23/22 10:07 Aspirin 81 Mg Tab Chew PO 81 mg QDAY FRANCESCA Administration Atorvastatin Calcium 40 mg 03/11/22 22:00 03/23/22 21:34 Atorvastatin 40 Mg Tab PO 40 mg QHS FRANCESCA Administration Doxazosin Mesylate 4 mg 03/18/22 18:00 03/23/22 10:07 Doxazosin 4 Mg Tab PO 4 mg QDAY FRANCESCA Administration Famotidine 20 mg 03/14/22 10:00 03/23/22 10:07 Famotidine 20 Mg Tab PO 20 mg DAILY FRANCESCA Administration Haloperidol Lactate 5 mg 03/10/22 18:12 03/22/22 01:56 Haloperidol Lactate 5 Mg/1 Ml Inj IV 5 mg Q6H PRN Administration Agitation Hydralazine HCl 10 mg 03/18/22 12:35 03/18/22 13:18 Hydralazine 20 Mg/1 Ml Inj IV 10 mg Q6HR PRN Administration Blood Pressure Sodium Chloride 1,000 mls @ 100 mls/hr 03/16/22 11:00 03/24/22 02:49 Nacl 0.45% 1000 Ml IV 25 mls/hr DIRECT FRANCESCA Administration Methotrexate 2.5 mg 03/11/22 16:00 03/18/22 18:45 Methotrexate 2.5 Mg Tab (Dose Weekly Only) PO 2.5 mg Fr FRANCESCA Administration Metoprolol Tartrate 100 mg 03/17/22 22:00 03/23/22 21:35 Metoprolol Tartrate 100 Mg Tab PO 100 mg BID FRANCESCA Administration Morphine Sulfate 2 mg 03/08/22 20:07 03/18/22 10:37 Morphine 4 Mg/1 Ml Inj IV 2 mg Q8H PRN Administration Pain , Severe (7-10) Nicotine 21 mg 03/10/22 10:00 03/23/22 10:07 Nicotine 21 Mg/24 Hr Patch TD 21 mg QDAY FRANCESCA Administration Oxycodone/Acetaminophen 1 tab 03/08/22 20:07 03/11/22 21:37 Oxycodone /Acetaminophen 5-325mg Tab PO 1 tab Q6H PRN Administration Pain, Moderate (4-6) Prednisone 10 mg 03/17/22 10:00 03/23/22 21:34 Prednisone 10 Mg Tab PO 10 mg BID FRANCESCA Administration Quetiapine Fumarate 50 mg 03/18/22 22:00 03/23/22 21:35 Quetiapine 25 Mg Tab PO 50 mg QHS FRANCESCA Administration Sodium Bicarbonate 325 mg 03/20/22 13:20 03/20/22 14:30 Sodium Bicarbonate 325 Mg Tab FEEDTUBE 325 mg PRN PRN Administration For Clogged Feeding Tube Sodium Chloride 10 ml 03/08/22 22:00 03/23/22 21:36 Sodium Chloride 0.9% 10 Ml Flush Syringe IV 10 ml BID FRANCESCA Administration Sodium Chloride 10 ml 03/08/22 20:07 Sodium Chloride 0.9% 10 Ml Flush Syringe IV PRN PRN LINE FLUSH Tramadol HCl 50 mg 03/08/22 20:11 03/21/22 13:25 Tramadol 50 Mg Tab PO 50 mg Q6H PRN Administration Pain, Moderate (4-6) Nutrition/Malnutrition Assess - Dietary Evaluation Nutrition/Malnutrition Findings: Nutrition Notes Start: 03/14/22 11:02 Freq: Status: Active Protocol: Document 03/23/22 12:35 ABDIAS (Rec: 03/23/22 13:12 ABDIAS [id number]) Nutrition Notes Initial or Follow up Reassessment Current Diagnosis Acute Kidney Injury,Sepsis, Hypertension,Respiratory Failure,Stroke Other Pertinent Diagnosis NSTEMI II, Atrial Fibrilation/ RVR, Metabolic Encephalopathy, Pneumonia, ... Current Diet Mechanical Soft Diet (since L 03/22), D Suppl (since L 03/23 ). Labs/Tests 03/23: CO2 19, BUN 39, Crea 2. 5. Pertinent Medications 03/23: Nutritionally unremarkable. Height 6 ft Weight 80.5 kg [place] Body Weight (kg) 80.90 BMI 24.0 Weight change and time frame 7.5 Kg body weight gain in 1 week reported. Weight Status Appropriate Subjective/Other Information RD consult for routine F/U on TF tolerance/continuation assessment. TF was discontinued, Diet advanced to PO, but Pt's PO intake of meals has been Poor (>25%) according to ADL notes. I will support prescription of dietary supplements to compensate for poor or insufficient PO intake of meals during LOS. HUMAN RESOURCES PROFESSIONAL cleared Pt for Mechanical Soft Diet, no need for PEG- tube placement at the time, according to Progress notes. HUMAN RESOURCES PROFESSIONAL note on 03/22/22 11:36: Swallowing evaluation has been conducted. Patient was resistant to po; however, the physician advised him to participate in the examination . Patient is able to consume a mechanical soft diet with ground meat and regular liquids. Will follow 1-2 to ensure continued safety. It is suspected that the patient will not consume enough to maintain adequate nutritional support; therefore, his po consumption should be monitored closely. - END OF NOTE. Pt is on Nasal Cannula, O2 saturation @ 96%, according to Physical Assessment History notes. Pt planned for discharge on to SNF, according to Progress notes. Percent of energy/protein needs met: Prescribed Mechanical Soft Diet provides for energy/ protein needs (2,048 Kcal/97 g ) during LOS; additionally, Dietary Supplements will compensate for possible poor or insufficient PO intake of meals with 640 Kcal and 64 g of protein. Burn Absent Trauma Absent GI Symptoms None Difficulty In Swallowing,Chewing Food Allergy No Skin Integrity/Comment Assessment WNL. 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 As Evidenced by Signs and Symptoms Pt's PO intake of meals has been Poor (>25%) according to ADL notes. #1 Nutrition Diagnosis Inadequate oral intake Comments: TF was discontinued, Diet advanced to PO, but Pt's PO intake of meals has been Poor (>25%) according to ADL notes. HUMAN RESOURCES PROFESSIONAL cleared Pt for Mechanical Soft Diet, no need for PEG- tube placement at the time, according to Progress notes. Diagnosis Progress(for reassessment Resolved documentation) Is patient on ventilator? No Is Patient Ambulatory and/or Out of Bed No REE-([place]-St. Jeor-confined to bed) 1952.976 Kcal/Kg value to use for calculation 28 Approximate Energy Requirements Using 2254 kcal/Kg Calculation Used for Recommendations Kcal/kg Additional Notes Protein: 0.8-1.2 g/Kg ABW; 58- 88 g/day. Fluids: 1 ml/Kcal, or as per MD. Nutrition Intervention Change Diet Order: Continue Mechanical Soft Diet as tolerated. Nutrition Support: Discontinued. Add Supplement/Snack (indicate name/kcal Start 8 fl oz Ensure High /protein ) Protein; 4xDay. Provides kCal: 640 Provides Protein (gm) 64 Goal #1 Compensate, through dietary supplementation, for possible poor or insufficient PO intake of meals during LOS. Goal #2 Facilitate PO intake of meals with elemental, textural, or mechanical modification during LOS. Follow-Up By: 03/30/22 Additional Comments Continue monitoring food tolerance, %PO intake of meals , dietary supplements, and BM.
[2022-03-24] MEDS: ASPIRIN 81 MG TAB CHEW PO SCH (10:07)
[2022-03-24] MEDS: AMIODARONE 200 MG TAB PO SCH (10:08)
[2022-03-24] MEDS: DOXAZOSIN 4 MG TAB PO SCH (10:08)
[2022-03-24] MEDS: METOPROLOL TARTRATE 100 MG TAB PO SCH (10:09)
[2022-03-24] MEDS: NICOTINE 21 MG/24 HR PATCH TD SCH (10:09)
[2022-03-24] MEDS: predniSONE 10 MG TAB PO SCH (10:10)
[2022-03-24] MEDS: FAMOTIDINE 20 MG TAB PO SCH (10:10)
[2022-03-24] MEDS: APIXABAN 5 MG TAB PO SCH (10:16)
--- NOTE | 2022-03-24 11:40 | Progress Note ---
Assessment and Plan Patient is a 67-year-old male with a reported past medical history of vascular dementia, cerebral atherosclerosis, BPH, hypertension, nicotine dependence who presented to the ED yesterday for complaint of AMS x2. Altered mental status NSTEMI suspect type II MARIE Leukocytosis A. fib Hypertension Vascular dementia Echo 03/09/2022-EF 25 to 30%. Severe global hypokinesis of left ventricle. Moderate concentric LVH. Mild diastolic dysfunction is present impaired relaxation pattern. Moderate aortic regurgitation. No pericardial effusion Plan: Conservative cardiac mgmt recommended in light of mental status Cardiology called yesterday and informed that patient had pauses on quality assurance monitor yesterday afternoon Telemetry reviewed patient currently in sinus rhythm with no further pauses Will stop Amio 200mg PO BID, Continue metoprolol 100mg PO BID Patient on Eliquis for anticoagulation Will hold NATALYA and ARB due to elevated creatinine and documented allergy Patient should follow up their primary molecular genetic pathologist 1 to 2 weeks after discharge. Patient may also follow-up with our group [facility] non destructive evaluation specialist 1 to 2 weeks after discharge Pt seen in conjunction with Dr. Norton, who agrees with the assessment and plan of care - Patient Problems (1) Acute kidney injury (MARIE) with acute tubular necrosis (ATN) Current Visit: Yes Status: Acute (2) Altered mental status Current Visit: Yes Status: Acute (3) Atrial fibrillation with RVR Current Visit: Yes Status: Acute (4) CKD (chronic kidney disease) Current Visit: Yes Status: Acute (5) Cerebral atherosclerosis Current Visit: Yes Status: Chronic (6) Elevated troponin Current Visit: Yes Status: Acute (7) NSTEMI (non-ST elevated myocardial infarction) Current Visit: Yes Status: Acute (8) SIRS (systemic inflammatory response syndrome) Current Visit: Yes Status: Acute (9) Vascular dementia Current Visit: Yes Status: Chronic Qualifiers: Dementia behavioral disturbance: with behavioral disturbance Qualified Code(s): F01.51 - Vascular dementia with behavioral disturbance (10) Weakness Current Visit: Yes Status: Acute Subjective Date of service: 03/24/22 Principal diagnosis: NSTEMI ?Type 2 DE, AMS vs Dmentia Interval history: Patient in bed in no acute distress. Patient remains with altered mental status. sinus 60s on monitor Objective Vital Signs Temp Pulse Resp BP Pulse Ox 03/24/22 10:08 74 03/24/22 09:53 95 03/24/22 04:48 98.4 F 68 19 132/85 96 03/23/22 20:55 96 03/23/22 20:39 97 03/23/22 19:37 98.1 F 20 157/82 03/23/22 18:55 97.6 F 76 18 159/78 94 03/23/22 18:25 98.0 F 55 L 20 160/88 94 03/23/22 17:55 97.6 F 72 18 148/75 96 03/23/22 17:25 97.8 F 69 18 100 03/23/22 16:55 97.6 F 80 18 133/81 97 03/23/22 16:27 68 18 131/74 97 03/23/22 16:25 97.6 F 68 18 131/74 94 03/23/22 16:10 97.7 F 83 18 137/72 95 03/23/22 16:08 18 139/72 03/23/22 15:16 98.3 F 64 142/80 94 - Physical Examination General: No Apparent Distress HEENT: Positive: Mucus Membranes Dry Neck: Positive: trachea midline. Negative: JVD/HJR Cardiac: Positive: Reg Rate and Rhythm Lungs: Positive: Normal Breath Sounds Neuro: Positive: Grossly Intact Abdomen: Positive: Soft Skin: Negative: Rash Extremities: Present: warm. Absent: edema - Labs and Meds Coagulation 03/23/22 Range/Units 11:01 PT 20.4 H (12.2-14.9) Sec. INR 1.54 H (0.87-1.13) APTT 32.0 (24.2-36.6) Sec. CBC 03/23/22 Range/Units 11:01 WBC 12.0 H (4.5-11.0) K/mm3 RBC 2.58 L (3.65-5.03) M/mm3 Hgb 6.8 L (11.8-15.2) gm/dl Hct 20.4 L (35.5-45.6) % Plt Count 361 (140-440) K/mm3 Comprehensive Metabolic Panel 03/23/22 03/24/22 Range/Units 11:01 08:39 Sodium 131 L D (137-145) mmol/L Potassium 3.7 (3.6-5.0) mmol/L Chloride 104.5 (98-107) mmol/L Carbon Dioxide 17 L (22-30) mmol/L BUN 38 H (9-20) mg/dL Creatinine 2.4 H 2.1 H (0.8-1.3) mg/dL Glucose 84 (75-100) mg/dL Calcium 7.4 L (8.4-10.2) mg/dL - Imaging and Cardiology EKG: report reviewed, image reviewed Echo: report reviewed - Telemetry EKG Rhythm: Sinus Rhythm - EKG Sinus rhythms and dysrhythmias: sinus rhythm Ventricular dysrhythmias: ventricular premature com Myocardial infarction: septal DE (old age or ind, anterior DE (old age or i - Allied health notes Allied health notes reviewed: nursing
== END 2022-03-24 14:10 | disposition home health service (06) | DRG 871 ==
LOC: ED 11:47 → IMCU 20:07 → 4A 03-12 18:33
PROVIDERS: ADMIT Internal Medicine; ATTEND Hospitalist
PROC: 30233N1 Transfusion of Nonautologous Red Blood Cells into Peripheral Vein, Percutaneous Approach (ICD-10-PCS; principal; 2022-03-23)
DX: A41.9 Sepsis, unspecified organism (principal); G92.8 Other toxic encephalopathy; I21.A1 Myocardial infarction type 2; N17.0 Acute kidney failure with tubular necrosis; J96.01 Acute respiratory failure with hypoxia; J18.9 Pneumonia, unspecified organism; I42.9 Cardiomyopathy, unspecified; I47.1 Supraventricular tachycardia; F01.51 Vascular dementia, unspecified severity, with behavioral disturbance; I50.20 Unspecified systolic (congestive) heart failure; I13.0 Hypertensive heart and chronic kidney disease with heart failure and stage 1 through stage 4 chronic kidney disease, or unspecified chronic kidney disease; F02.81 Dementia in other diseases classified elsewhere, unspecified severity, with behavioral disturbance; Z20.822 Contact with and (suspected) exposure to COVID-19; N18.9 Chronic kidney disease, unspecified; M19.90 Unspecified osteoarthritis, unspecified site; Z71.6 Tobacco abuse counseling; F17.200 Nicotine dependence, unspecified, uncomplicated; I67.2 Cerebral atherosclerosis; N40.0 Benign prostatic hyperplasia without lower urinary tract symptoms; D50.9 Iron deficiency anemia, unspecified; R53.81 Other malaise; I48.0 Paroxysmal atrial fibrillation; G30.9 Alzheimer's disease, unspecified; Z82.49 Family history of ischemic heart disease and other diseases of the circulatory system; Z88.8 Allergy status to other drugs, medicaments and biological substances
CPT/HCPCS: 36415; 70450; 70551; 71045; 74018; 74176; 76770; 80048; 80053; 80061; 80202; 80307; 80320; 81001; 82140; 82550; 82565; 82570; 82803; 82962; 83735; 83970; 84100; 84300; 84484; 85007; 85025; 85027; 85610; 85730; 86140; 86592; 86850; 86900; 86901; 86920; 87040; 87529; 87806; 93005; 93306; 94640; 94760; G0378; J3490; J7060; C8929; G0480; J0133; J0282; J0290; J0360; J0692; J0696; J1630; J1650; J1940; J1956; J2060; J2270; J2310; J3370; J7030; J7512; J8610; P9016; U0003

== ENCOUNTER 2022-03-31 06:49 | Inpatient (IN) | payer MEDICARE, OTHER ==
[2022-03-31] MEDS ORDERED: SODIUM CHLORIDE 0.9% 1000 ML 1,000 ML IV ONE (07:47)
--- NOTE | 2022-03-31 08:04 | Emergency Department Report ---
ED General Adult HPI - General Chief complaint: Fever Stated complaint: FEVER Time Seen by Provider: 03/31/22 07:45 Source: EMS Mode of arrival: Stretcher Limitations: Altered Mental Status, Physical Limitation - History of Present Illness Initial comments: This is a pleasant 67-year-old male with medical history of vascular dementia, gastric bypass, renal insufficiency, hypertension, atrial fibrillation; who was recently discharged from the hospital on 03/24 for patient was admitted for NSTEMI, atrial fibrillation with rapid ventricular rate, and acute kidney injury. Patient was brought in by EMS today with concerns of fever and also has been bedridden for the past 3 days. Patient was brought in by EMS from his home where there is another person who claims to be his . According to the EMS the states that patient has no past medical history but only have history of hypertension also picks disease. The was not able to provide additional informations to the EMS. According to the EMS; on arrival patient's temperature was 102.8 and they have started fluids IV hydration. States the latest temperature they (EMS) checked to be in high 90s; denies giving Tylenol. At the time of my evaluation, patient was still in EMS's stretch at ambulance entrance wall. Patient himself denies any discomfort. States 2021 when I asked what year it is. However, keep repeating 2021 when I asked if he knows who the President of [place] is or what town he lives it. Severity scale (0 -10): 0 - Related Data Home Medications Medication Instructions Recorded Confirmed Last Taken AtorvaSTATin [Lipitor] 40 mg PO QHS 03/11/22 03/16/22 Unknown metHOTREXate sodium [Methotrexate] 15 mg PO 1XW 03/11/22 03/16/22 Unknown predniSONE 10 mg PO BID 03/16/22 03/16/22 Unknown Previous Rx's Medication Instructions Recorded Last Taken Type Tamsulosin [Flomax] 0.4 mg PO QDAY #7 cap 08/28/15 Unknown Rx Amiodarone [Cordarone 200 MG TAB] 200 mg PO BID tablet 03/23/22 Unknown Rx Apixaban [Eliquis] 5 mg PO Q12HR tablet 03/23/22 Unknown Rx Aspirin [Aspirin BABY CHEW TAB] 81 mg PO QDAY tab.chew 03/23/22 Unknown Rx Doxazosin [Cardura] 4 mg PO QDAY tablet 03/23/22 Unknown Rx Famotidine [Pepcid] 20 mg PO DAILY tablet 03/23/22 Unknown Rx Metoprolol [Lopressor TAB] 100 mg PO BID tablet 03/23/22 Unknown Rx Nicotine [Habitrol] 21 mg TD QDAY patch 03/23/22 Unknown Rx QUEtiapine [SEROquel] 50 mg PO QHS tablet 03/23/22 Unknown Rx amLODIPine 10 mg PO DAILY #30 tab 03/24/22 Unknown Rx Allergies Allergy/AdvReac Type Severity Reaction Status Date / Time lisinopril Allergy Hives Verified 03/31/22 07:48 ED Review of Systems ROS: Stated complaint: FEVER Other details as noted in HPI Comment: Unobtainable due to pts medical conditions (Pleasantly demented) ED Past Medical Hx - Past Medical History Previous Medical History?: Yes Hx Hypertension: Yes Hx Heart Attack/AMI: Yes Hx Congestive Heart Failure: Yes Hx Renal Disease: Yes Hx Dementia: Yes Additional medical history: ATRAIL FIBRILLATION - Social History Smoking Status: Unknown if ever smoked - Medications Home Medications: Home Medications Medication Instructions Recorded Confirmed Last Taken Type Tamsulosin [Flomax] 0.4 mg PO QDAY #7 cap 08/28/15 03/16/22 Unknown Rx AtorvaSTATin [Lipitor] 40 mg PO QHS 03/11/22 03/16/22 Unknown History metHOTREXate sodium [Methotrexate] 15 mg PO 1XW 03/11/22 03/16/22 Unknown History predniSONE 10 mg PO BID 03/16/22 03/16/22 Unknown History Amiodarone [Cordarone 200 MG TAB] 200 mg PO BID tablet 03/23/22 Unknown Rx Apixaban [Eliquis] 5 mg PO Q12HR tablet 03/23/22 Unknown Rx Aspirin [Aspirin BABY CHEW TAB] 81 mg PO QDAY tab.chew 03/23/22 Unknown Rx Doxazosin [Cardura] 4 mg PO QDAY tablet 03/23/22 Unknown Rx Famotidine [Pepcid] 20 mg PO DAILY tablet 03/23/22 Unknown Rx Metoprolol [Lopressor TAB] 100 mg PO BID tablet 03/23/22 Unknown Rx Nicotine [Habitrol] 21 mg TD QDAY patch 03/23/22 Unknown Rx QUEtiapine [SEROquel] 50 mg PO QHS tablet 03/23/22 Unknown Rx amLODIPine 10 mg PO DAILY #30 tab 03/24/22 Unknown Rx ED Physical Exam - General Limitations: Altered Mental Status, Physical Limitation General appearance: alert (PLEASANTLY DEMENTED; UNSURE BASELINE. ), in no apparent distress - Head Head exam: Present: atraumatic, normocephalic, normal inspection - Eye Eye exam: Present: normal appearance, PERRL, EOMI Pupils: Present: normal accommodation - ENT ENT exam: Present: normal exam - Neck Neck exam: Present: normal inspection - Respiratory Respiratory exam: Present: normal lung sounds bilaterally - Cardiovascular Cardiovascular Exam: Present: tachycardia, irregular rhythm (IRREGULARLY IRREGULAR) - GI/Abdominal GI/Abdominal exam: Present: soft, normal bowel sounds. Absent: distended, tenderness, guarding, rebound - Extremities Exam Extremities exam: Present: normal inspection, full ROM, normal capillary refill. Absent: pedal edema - Back Exam Back exam: Present: normal inspection, full ROM - Neurological Exam Neurological exam: Present: alert, altered, CN II-XII intact - Psychiatric Psychiatric exam: Present: normal affect, normal mood - Skin Skin exam: Present: normal color ED Course Vital Signs 03/31/22 03/31/22 03/31/22 07:36 08:17 09:15 Temperature 102.8 F H 101.3 F H Pulse Rate 128 H 119 H 136 H Respiratory 22 40 H Rate Blood Pressure 186/97 173/88 [Left] O2 Sat by Pulse 98 98 Oximetry - Reevaluation(s) Reevaluation #1: 03/31/22 08:44 CXR WITH: PROBABLE LEFT UPPER LOBE INFILTRATE SMALL TO MEDIUM LEFT PLEURAL EFFUSION STILL PENDING REST OF TEST (LABS) TO RETURN. I WILL START EMPIRICALLY PATIENT ON VANCO AND CEFEPIME FOR HAP COVERAGE PATIENT WAS RECENTLY DISCHARGED FROM THE HOSPITAL. 03/31/22 09:[address] AGUSTIN WHO KINDLY ACCEPTED THE PATIENT. WILL ALSO LET DIRECTOR MONEY KNOW ABOUT THE PATIENT. 03/31/22 09:34 CALLED [phone] ([facility]); NO ONE PICKED UP AND NO ANSWERING MACHINE. WILL CALL AGAIN LATER. ED Medical Decision Making - Lab Data Result diagrams: 03/31/22 08:00 03/31/22 08:00 - EKG Data -: EKG Interpreted by Me (ATRIAL FIBRILLATION W/ RVR) Critical Care Time: Yes Critical care time in (mins) excluding proc time.: 54 Critical care attestation.: If time is entered above; I have spent that time in minutes in the direct care of this critically ill patient, excluding procedure time. ED Disposition Clinical Impression: Hospital-acquired pneumonia, Atrial fibrillation with RVR, Sepsis, NSTEMI (non- ST elevated myocardial infarction), High anion gap metabolic acidosis Disposition: 09 ADMITTED INPATIENT Is pt being admited?: Yes Does the pt Need Aspirin: No Condition: Stable Instructions: Bacterial Pneumonia (ED) Referrals: PRIMARY CARE, [Primary Care Provider] - 3-5 Days Time of Disposition: 08:49
[2022-03-31] MEDS ORDERED: SODIUM CHLORIDE 0.9% 1000 ML IV SOLN IV ONE (08:28)
[2022-03-31] MEDS ORDERED: SODIUM CHLORIDE 0.9% IV ONE (08:28)
[2022-03-31] MEDS ORDERED: ACETAMINOPHEN 650 MG RECT SUPP PR ONE (08:29)
--- NOTE | 2022-03-31 08:33 | XRay Report ---
CHEST 1 VIEW 03/31/2022 7:24 AM INDICATION / CLINICAL INFORMATION: D/C YESTERDAY FROM INPATIENT PRESENTS W/ FEVER. COMPARISON: 03/17/2022 FINDINGS: SUPPORT DEVICES: None. HEART / MEDIASTINUM: There is moderate to severe cardiomegaly, unchanged LUNGS / PLEURA: The right lung is generally clear. There is patchy infiltration or edema in the left upper lobe which appears to be new. The left lower lobe is obscured by cardiomegaly. Small to medium left pleural effusion is suspected. No pneumothorax. ADDITIONAL FINDINGS: No significant additional findings. IMPRESSION: 1. Cardiomegaly 2. Probable left upper lobe infiltrate. 3. Small to medium left pleural effusion. Signer Name: Sixto Reveles Jr, MD Signed: 03/31/2022 8:29 AM Workstation Name: [id number]
[2022-03-31] MEDS ORDERED: CEFEPIME/NS 2 GM/100 ML 2 GM/100 ML BAG IV ONE (08:43)
[2022-03-31] MEDS ORDERED: VANCOMYCIN 1,250 MG in SODIUM CHLORIDE 0.9% 500 ML 500 ML IV ONE (08:43)
[2022-03-31 08:50] LABS: Basophils # (Auto) 0.1 K/mm3 (0.0-0.1); Basophils % (Auto) 0.6 % (0.0-1.8); Eosinophils # (Auto) 0.5 K/mm3 (0.0-0.4); Hematocrit 28.6 % (35.5-45.6); Hemoglobin 8.8 gm/dl (11.8-15.2); Lymphocytes # (Auto) 0.7 K/mm3 (1.2-5.4); Lymphocytes % (Auto) 4.2 % (13.4-35.0); Mean Corpuscular HGB Conc 31 % (32-34); Mean Corpuscular Volume 83 fl (84-94); Monocytes % (Auto) 6.3 % (0.0-7.3); Platelet Count 364 K/mm3 (140-440); Red Blood Count 3.46 M/mm3 (3.65-5.03); Red Cell Distribution Width 18.7 % (13.2-15.2)
[2022-03-31] MEDS ORDERED: dilTIAZem 25 MG/5 ML INJ IV ONE ×2 (08:52→09:42)
[2022-03-31 09:11] LABS: Albumin 2.8 g/dL (3.9-5)
[2022-03-31 09:38] LABS: Chol/HDL Ratio 2.86 %
[2022-03-31] MEDS ORDERED: VANCOMYCIN 1,750 MG in SODIUM CHLORIDE 0.9% 500 ML 500 ML IV ONE (10:00)
[2022-03-31] MEDS ORDERED: ONDANSETRON 4 MG/2 ML INJ IV PRN (13:31)
[2022-03-31] MEDS ORDERED: MORPHINE 4 MG/1 ML INJ IV PRN (13:31)
--- NOTE | 2022-03-31 13:52 | History and Physical Report ---
History of Present Illness Date of examination: 03/31/22 Date of admission: 03/31/2022 Chief complaint: Fever and shortness of breath History of present illness: 67-year-old male patient with significant past medical history of coronary artery disease, atrial fibrillation, chronic kidney disease, hypertension, vascular dementia recently admitted for non-ST elevation NH presented to the emergency room with fever and shortness of breath of 3 days duration. Patient's T-max this morning was 102.8Initial work-up in the ED is consistent with leukocytosis, A. fib with rapid ventricular rate, uncontrolled blood pressures and mild confusion patient unable to give proper history. Chest x-ray findings consistent with left upper lobe infiltrate/pneumonia cardiomegaly mild pleural effusion on the left side Past History Past Medical History: atrial fib, CAD, heart failure, hypertension, hyperlipidemia, other (Dementia, BPH, cardiomyopathy) Past Surgical History: No surgical history Social history: smoking (History of tobacco use). denies: alcohol abuse, prescription drug abuse Family history: no significant family history Medications and Allergies Allergies Allergy/AdvReac Type Severity Reaction Status Date / Time lisinopril Allergy Hives Verified 03/31/22 07:48 Home Medications Medication Instructions Recorded Confirmed Last Taken Type Tamsulosin [Flomax] 0.4 mg PO QDAY #7 cap 08/28/15 03/16/22 Unknown Rx AtorvaSTATin [Lipitor] 40 mg PO QHS 03/11/22 03/16/22 Unknown History metHOTREXate sodium [Methotrexate] 15 mg PO 1XW 03/11/22 03/16/22 Unknown Hi story predniSONE 10 mg PO BID 03/16/22 03/16/22 Unknown History Amiodarone [Cordarone 200 MG TAB] 200 mg PO BID tablet 03/23/22 Unknown Rx Apixaban [Eliquis] 5 mg PO Q12HR tablet 03/23/22 Unknown Rx Aspirin [Aspirin BABY CHEW TAB] 81 mg PO QDAY tab.chew 03/23/22 Unknown Rx Doxazosin [Cardura] 4 mg PO QDAY tablet 03/23/22 Unknown Rx Famotidine [Pepcid] 20 mg PO DAILY tablet 03/23/22 Unknown Rx Metoprolol [Lopressor TAB] 100 mg PO BID tablet 03/23/22 Unknown Rx Nicotine [Habitrol] 21 mg TD QDAY patch 03/23/22 Unknown Rx QUEtiapine [SEROquel] 50 mg PO QHS tablet 03/23/22 Unknown Rx amLODIPine 10 mg PO DAILY #30 tab 03/24/22 Unknown Rx Active Meds: Active Medications Acetaminophen (Acetaminophen 325 Mg Tab) 650 mg PO Q4H PRN PRN Reason: Pain MILD(1-3)/Fever >100.5/[place] Amiodarone HCl (Amiodarone 200 Mg Tab) 200 mg PO BID FRANCESCA Amiodarone HCl (Amiodarone 200 Mg Tab) 200 mg PO ONCE ONE Stop: 03/31/22 13:41 Aspirin (Aspirin 81 Mg Tab Chew) 81 mg PO QDAY FRANCESCA Atorvastatin Calcium (Atorvastatin 40 Mg Tab) 40 mg PO QHS FRANCESCA Doxazosin Mesylate (Doxazosin 4 Mg Tab) 4 mg PO QDAY FRANCESCA Famotidine (Famotidine 20 Mg Tab) 20 mg PO DAILY FRANCESCA Methotrexate (Methotrexate 2.5 Mg Tab (Dose Weekly Only)) 15 mg PO 1XW FRANCESCA Metoprolol Tartrate (Metoprolol Tartrate 100 Mg Tab) 100 mg PO BID FRANCESCA Metoprolol Tartrate (Metoprolol Tartrate 50 Mg Tab) 100 mg PO ONCE ONE Stop: 03/31/22 13:39 Miscellaneous Medication (Apixaban) 5 mg PO Q12HR FRANCESCA Morphine Sulfate (Morphine 2 Mg/1 Ml Inj) 2 mg IV Q4H PRN PRN Reason: Pain, Moderate (4-6) Morphine Sulfate (Morphine 4 Mg/1 Ml Inj) 4 mg IV Q4H PRN PRN Reason: Pain , Severe (7-10) Ondansetron HCl (Ondansetron 4 Mg/2 Ml Inj) 4 mg IV Q8H PRN PRN Reason: Nausea And Vomiting Quetiapine Fumarate (Quetiapine 25 Mg Tab) 50 mg PO QHS FRANCESCA Sodium Chloride (Sodium Chloride 0.9% 10 Ml Flush Syringe) 10 ml IV BID FRANCESCA Sodium Chloride (Sodium Chloride 0.9% 10 Ml Flush Syringe) 10 ml IV PRN PRN PRN Reason: LINE FLUSH Tamsulosin HCl (Tamsulosin 0.4 Mg Cap) 0.4 mg PO QDAY [facility] Review of Systems ROS unobtainable: due to mental status Exam - Constitutional Vitals: Temp Pulse Resp BP Pulse Ox 98.4 F 106 H 27 H 175/89 98 03/31/22 12:40 03/31/22 13:31 03/31/22 13:31 03/31/22 13:31 03/31/22 13:31 General appearance: Present: mild distress, well-nourished, other (Confused/unable to give any history) - EENT Eyes: Present: PERRL, EOM intact - Neck Neck: Present: supple, normal ROM - Respiratory Respiratory effort: normal Respiratory: bilateral: diminished, rales, negative: rhonchi, wheezing - Cardiovascular Rhythm: regular Heart Sounds: Present: S1 & S2 - Extremities Extremities: no ischemia Extremity abnormal: edema (Trace edema) - Abdominal General gastrointestinal: Present: soft, non-tender, non-distended, normal bowel sounds - Integumentary Integumentary: Present: clear, warm - Musculoskeletal Musculoskeletal: generalized weakness - Psychiatric Psychiatric: cooperative, other (Confused) - Neurologic Neurologic: moves all extremities (Confused) HEART Score - HEART Score Troponin: Troponin T 0.138 ng/mL (0.00-0.029) H* 03/31/22 08:00 Results - Labs CBC & Chem 7: 03/31/22 08:00 03/31/22 08:00 Labs: Abnormal lab results 03/31/22 03/31/22 Range/Units 08:00 08:00 WBC 15.6 H (4.5-11.0) K/mm3 RBC 3.46 L (3.65-5.03) M/mm3 Hgb 8.8 L (11.8-15.2) gm/dl Hct 28.6 L (35.5-45.6) % MCV 83 L (84-94) fl MCH 26 L (28-32) pg MCHC 31 L (32-34) % RDW 18.7 H (13.2-15.2) % Lymph % (Auto) 4.2 L (13.4-35.0) % Lymph # (Auto) 0.7 L (1.2-5.4) K/mm3 Price # (Auto) 1.0 H (0.0-0.8) K/mm3 Eos # (Auto) 0.5 H (0.0-0.4) K/mm3 Seg Neutrophils % 85.9 H (40.0-70.0) % Seg Neutrophils # 13.4 H (1.8-7.7) K/mm3 Sodium 146 H (137-145) mmol/L Chloride 111.3 H (98-107) mmol/L Carbon Dioxide 11 L (22-30) mmol/L BUN 22 H (9-20) mg/dL Creatinine 2.3 H (0.8-1.3) mg/dL Glucose 55 L (75-100) mg/dL Troponin T 0.138 H* (0.00-0.029) ng/mL NT-Pro-B Natriuret Pep 73284 H (0-900) pg/mL Albumin 2.8 L (3.9-5) g/dL HDL Cholesterol 38 L (40-59) mg/dL Assessment and Plan -- A. fib with rapid ventricular rate; Resume home amiodarone, metoprolol Anticoagulation with Eliquis Cardiology consult Supportive care -- Acute on chronic systolic congestive heart failure; LVEF 25 to 30% Diuretics, beta-blockers, no NATALYA inhibitors in view of acute kidney injury Input output monitoring, fluid restriction, supportive care --Non-ST elevation NH; probably type II Serial cardiac enzymes, serial EKG However patient has multiple risk factors Resume home cardiac medications Cardiology consulted -- Febrile illness; PUI Antipyretics, high suspicion for COVID Isolation, elizondo PCR test, supportive care -- Pneumonia; hospital-acquired pneumonia Empiric antibiotics Vanco cefepime Blood cultures -- Metabolic encephalopathy/dementia Supportive care, treat the underlying cause -- Chronic kidney disease; Closely monitor renal function, avoid nephrotoxin Nephrology consult --Severe protein calorie malnutrition; Nutrition supplements, supportive care Nutrition consult --Severe hypoalbuminemia; albumin 2.8 Nutrition supplements, supportive care -- Nicotine dependence; Smoking cessation counseling Nicotine patch as needed --Full CODE STATUS -- DVT prophylaxis; Patient is on Eliquis --Advance care planning; 30 minutes I discussed with patient's brother Mr. Alfonzo Johnson at [phone] discussed in detail patient's condition, I discussed patient's tests and reports, I discussed consultants evaluation and recommendation findings, I discussed the treatment plan, I discussed the diagnosis, I discussed patient's prognosis, I also discussed the discharge planning and the advanced directives.Mr. Santana Mejía had many questions, I answered all of them He verbalized understanding and appreciative of my call. -- Preventative health care counseling; +32 minutes I discussed with the family the compliance with medications, I discussed the fall precautions I discussed the need for physical therapy occupational therapy, I discussed the possible placement options and he is medically stable Mr. Alfonzo Johnson verbalized understanding, answered all his questions We will closely monitor the patient and adjust management as needed Plan of care reviewed with the patient and his nurse Follow cardiology evaluation recommendations I spent 60 minutes coordinating this admission Discussed with patient's son Alfonzo Smith in detail.
[2022-03-31] MEDS ORDERED: METOPROLOL TARTRATE 50 MG TAB PO ONE (14:00)
[2022-03-31] MEDS ORDERED: AMIODARONE 200 MG TAB PO ONE (15:00)
[2022-03-31] MEDS ORDERED: VANCOMYCIN PHARMACY TO DOSE IV SCH (16:00)
--- NOTE | 2022-03-31 16:17 | Consultation ---
History of Present Illness Consult date: 03/31/22 Requesting physician: COLTON LEE Consult reason: atrial fibrillation History of present illness: Patient is a 67-year-old male with a past medical history of cardiomyopathy (EF 25 to 30%), A. fib, CKD, hypertension, and dementia who was brought to the ED by EMS for fever and SOB x3 days. History taken from chart due to patient's mental status. In the ED patient was found to have temperature of 102.8F, leukocytosis, MARIE on CKD, elevated troponin, and CXR consistent with left upper lobe infiltrate/pneumonia. Of note patient was recently discharged earlier this month on 03/24/2022. Per conversation with staff it is unclear who has been caring for patient and if patient has been receiving there medications on discharge. Furthermore patient was reported to be in A. fib with RVR with a heart rate max into the 130s. Patient was previously seen by our group during prior admission however patient does not follow-up with us in the office. Cardiology is consulted for A. fib with RVR. Past History Past Medical History: atrial fib, CAD, heart failure, hypertension, hyperlipidemia, other (Dementia, BPH, cardiomyopathy) Past Surgical History: No surgical history Social history: smoking (History of tobacco use). denies: alcohol abuse, prescription drug abuse Family history: no significant family history Medications and Allergies Allergies Allergy/AdvReac Type Severity Reaction Status Date / Time lisinopril Allergy Hives Verified 03/31/22 07:48 Home Medications Medication Instructions Recorded Confirmed Last Taken Type Tamsulosin [Flomax] 0.4 mg PO QDAY #7 cap 08/28/15 03/16/22 Unknown Rx AtorvaSTATin [Lipitor] 40 mg PO QHS 03/11/22 03/16/22 Unknown History metHOTREXate sodium [Methotrexate] 15 mg PO 1XW 03/11/22 03/16/22 Unknown History predniSONE 10 mg PO BID 03/16/22 03/16/22 Unknown History Amiodarone [Cordarone 200 MG TAB] 200 mg PO BID tablet 03/23/22 Unknown Rx Apixaban [Eliquis] 5 mg PO Q12HR tablet 03/23/22 Unknown Rx Aspirin [Aspirin BABY CHEW TAB] 81 mg PO QDAY tab.chew 03/23/22 Unknown Rx Doxazosin [Cardura] 4 mg PO QDAY tablet 03/23/22 Unknown Rx Famotidine [Pepcid] 20 mg PO DAILY tablet 03/23/22 Unknown Rx Metoprolol [Lopressor TAB] 100 mg PO BID tablet 03/23/22 Unknown Rx Nicotine [Habitrol] 21 mg TD QDAY patch 03/23/22 Unknown Rx QUEtiapine [SEROquel] 50 mg PO QHS tablet 03/23/22 Unknown Rx amLODIPine 10 mg PO DAILY #30 tab 03/24/22 Unknown Rx Active Meds: Active Medications Acetaminophen (Acetaminophen 325 Mg Tab) 650 mg PO Q4H PRN PRN Reason: Pain MILD(1-3)/Fever >100.5/HILTON Amiodarone HCl (Amiodarone 200 Mg Tab) 200 mg PO BID FRANCESCA Apixaban (Apixaban 5 Mg Tab) 5 mg PO Q12HR FRANCESCA Aspirin (Aspirin 81 Mg Tab Chew) 81 mg PO QDAY FRANCESCA Atorvastatin Calcium (Atorvastatin 40 Mg Tab) 40 mg PO QHS FRANCESCA Doxazosin Mesylate (Doxazosin 4 Mg Tab) 4 mg PO QDAY FRANCESCA Famotidine (Famotidine 20 Mg Tab) 20 mg PO DAILY FRANCESCA Cefepime HCl (Cefepime/Ns 2 Gm/100 Ml) 2 gm in 100 mls @ 200 mls/hr IV Q12H FRANCESCA; Protocol Vancomycin HCl 1,250 mg/ (Sodium Chloride) 275 mls @ 166.667 mls/hr IV Q24H FRANCESCA Methotrexate (Methotrexate 2.5 Mg Tab (Dose Weekly Only)) 15 mg PO Th FRANCESCA Metoprolol Tartrate (Metoprolol Tartrate 100 Mg Tab) 100 mg PO BID FRANCESCA Morphine Sulfate (Morphine 2 Mg/1 Ml Inj) 2 mg IV Q4H PRN PRN Reason: Pain, Moderate (4-6) Morphine Sulfate (Morphine 4 Mg/1 Ml Inj) 4 mg IV Q4H PRN PRN Reason: Pain , Severe (7-10) Ondansetron HCl (Ondansetron 4 Mg/2 Ml Inj) 4 mg IV Q8H PRN PRN Reason: Nausea And Vomiting Quetiapine Fumarate (Quetiapine 25 Mg Tab) 50 mg PO QHS FRANCESCA Sodium Chloride (Sodium Chloride 0.9% 10 Ml Flush Syringe) 10 ml IV BID FRANCESCA Sodium Chloride (Sodium Chloride 0.9% 10 Ml Flush Syringe) 10 ml IV PRN PRN PRN Reason: LINE FLUSH Tamsulosin HCl (Tamsulosin 0.4 Mg Cap) 0.4 mg PO QDAY FRANCESCA Review of Systems ROS unobtainable: due to mental status Physical Examination Vital Signs Temp Pulse Resp BP Pulse Ox 102.8 F H 128 H 22 186/97 98 03/31/22 07:36 03/31/22 07:36 03/31/22 07:36 03/31/22 07:36 03/31/22 07:36 General appearance: no acute distress HEENT: Positive: Mucus Membranes Dry Neck: Positive: trachea midline Cardiac: Positive: irregularly irregular Lungs: Positive: Rhonchi Neuro: Positive: Grossly Intact Abdomen: Positive: Soft Skin: Negative: Rash, Suspicious Lesions, Ulceration Extremities: Present: upper extr. pulses. Absent: edema Results 03/31/22 08:00 03/31/22 08:00 Cardiac Enzymes 03/31/22 03/31/22 03/31/22 Range/Units 08:00 08:00 08:00 WBC 15.6 H (4.5-11.0) K/mm3 RBC 3.46 L (3.65-5.03) M/mm3 Hgb 8.8 L (11.8-15.2) gm/dl Hct 28.6 L (35.5-45.6) % MCV 83 L (84-94) fl MCH 26 L (28-32) pg MCHC 31 L (32-34) % RDW 18.7 H (13.2-15.2) % Plt Count 364 (140-440) K/mm3 Lymph % (Auto) 4.2 L (13.4-35.0) % [place] % (Auto) 6.3 (0.0-7.3) % Eos % (Auto) 3.0 (0.0-4.3) % Baso % (Auto) 0.6 (0.0-1.8) % Lymph # (Auto) 0.7 L (1.2-5.4) K/mm3 [place] # (Auto) 1.0 H (0.0-0.8) K/mm3 Eos # (Auto) 0.5 H (0.0-0.4) K/mm3 Baso # (Auto) 0.1 (0.0-0.1) K/mm3 Seg Neutrophils % 85.9 H (40.0-70.0) % Seg Neutrophils # 13.4 H (1.8-7.7) K/mm3 Sodium 146 H (137-145) mmol/L Potassium 4.5 (3.6-5.0) mmol/L Chloride 111.3 H (98-107) mmol/L Carbon Dioxide 11 L (22-30) mmol/L Anion Gap 28 mmol/L BUN 22 H (9-20) mg/dL Creatinine 2.3 H (0.8-1.3) mg/dL Estimated GFR 35 ml/min BUN/Creatinine Ratio 10 % Glucose 55 L (75-100) mg/dL Lactic Acid 1.20 (0.7-2.0) mmol/L Calcium 9.0 (8.4-10.2) mg/dL Magnesium 1.80 (1.7-2.3) mg/dL Total Bilirubin 0.50 (0.1-1.2) mg/dL AST 14 (5-40) units/L ALT 21 (7-56) units/L Alkaline Phosphatase 113 (35-129) units/L Total Creatine Kinase 55 (55-170) units/L Troponin T 0.138 H* (0.00-0.029) ng/mL NT-Pro-B Natriuret Pep 83133 H (0-900) pg/mL Total Protein 6.6 (6.3-8.2) g/dL Albumin 2.8 L (3.9-5) g/dL Albumin/Globulin Ratio 0.7 % Triglycerides 76 (2-149) mg/dL Cholesterol 109 (50-199) mg/dL LDL Cholesterol Direct 55 (50-130) mg/dL HDL Cholesterol 38 L (40-59) mg/dL Cholesterol/HDL Ratio 2.86 % SARS-CoV-2 (PCR) (Negative) 03/31/22 Range/Units 14:25 WBC (4.5-11.0) K/mm3 RBC (3.65-5.03) M/mm3 Hgb (11.8-15.2) gm/dl Hct (35.5-45.6) % MCV (84-94) fl MCH (28-32) pg MCHC (32-34) % RDW (13.2-15.2) % Plt Count (140-440) K/mm3 Lymph % (Auto) (13.4-35.0) % [place] % (Auto) (0.0-7.3) % Eos % (Auto) (0.0-4.3) % Baso % (Auto) (0.0-1.8) % Lymph # (Auto) (1.2-5.4) K/mm3 [place] # (Auto) (0.0-0.8) K/mm3 Eos # (Auto) (0.0-0.4) K/mm3 Baso # (Auto) (0.0-0.1) K/mm3 Seg Neutrophils % (40.0-70.0) % Seg Neutrophils # (1.8-7.7) K/mm3 Sodium (137-145) mmol/L Potassium (3.6-5.0) mmol/L Chloride (98-107) mmol/L Carbon Dioxide (22-30) mmol/L Anion Gap mmol/L BUN (9-20) mg/dL Creatinine (0.8-1.3) mg/dL Estimated GFR ml/min BUN/Creatinine Ratio % Glucose (75-100) mg/dL Lactic Acid (0.7-2.0) mmol/L Calcium (8.4-10.2) mg/dL Magnesium (1.7-2.3) mg/dL Total Bilirubin (0.1-1.2) mg/dL AST (5-40) units/L ALT (7-56) units/L Alkaline Phosphatase (35-129) units/L Total Creatine Kinase (55-170) units/L Troponin T (0.00-0.029) ng/mL NT-Pro-B Natriuret Pep (0-900) pg/mL Total Protein (6.3-8.2) g/dL Albumin (3.9-5) g/dL Albumin/Globulin Ratio % Triglycerides (2-149) mg/dL Cholesterol (50-199) mg/dL LDL Cholesterol Direct (50-130) mg/dL HDL Cholesterol (40-59) mg/dL Cholesterol/HDL Ratio % SARS-CoV-2 (PCR) Negative (Negative) Lipids 03/31/22 Range/Units 08:00 Triglycerides 76 (2-149) mg/dL Cholesterol 109 (50-199) mg/dL HDL Cholesterol 38 L (40-59) mg/dL Cholesterol/HDL Ratio 2.86 % CBC 03/31/22 Range/Units 08:00 WBC 15.6 H (4.5-11.0) K/mm3 RBC 3.46 L (3.65-5.03) M/mm3 Hgb 8.8 L (11.8-15.2) gm/dl Hct 28.6 L (35.5-45.6) % Plt Count 364 (140-440) K/mm3 Lymph # (Auto) 0.7 L (1.2-5.4) K/mm3 [place] # (Auto) 1.0 H (0.0-0.8) K/mm3 Eos # (Auto) 0.5 H (0.0-0.4) K/mm3 Baso # (Auto) 0.1 (0.0-0.1) K/mm3 Comprehensive Metabolic Panel 03/31/22 Range/Units 08:00 Sodium 146 H (137-145) mmol/L Potassium 4.5 (3.6-5.0) mmol/L Chloride 111.3 H (98-107) mmol/L Carbon Dioxide 11 L (22-30) mmol/L BUN 22 H (9-20) mg/dL Creatinine 2.3 H (0.8-1.3) mg/dL Glucose 55 L (75-100) mg/dL Calcium 9.0 (8.4-10.2) mg/dL AST 14 (5-40) units/L ALT 21 (7-56) units/L Alkaline Phosphatase 113 (35-129) units/L Total Protein 6.6 (6.3-8.2) g/dL Albumin 2.8 L (3.9-5) g/dL - Imaging and Cardiology Echo: report reviewed EKG interpretations - Telemetry EKG Rhythm: Sinus Tachycardia - EKG Sinus rhythms and dysrhythmias: sinus tachycardia Chamber hypertrophy or enlargement: left ventricular hypertro Assessment and Plan Patient is a 67-year-old male with a past medical history of cardiomyopathy (EF 25 to 30%), A. fib, CKD, hypertension, and dementia who was brought to the ED by EMS for fever and SOB x3 days. Sepsis PNA NSTEMI suspect type II MARIE on CKD Cardiomyopathy A. fib Hypertension Anemia Vascular dementia Echo 03/09/2022-EF 25 to 30%. Severe global hypokinesis of left ventricle. Moderate concentric LVH. Mild diastolic dysfunction is present impaired relaxation pattern. Moderate aortic regurgitation. No pericardial effusion Plan: EKG shows sinus tach 118 PVCs anterior Q waves and LVH. No acute ischemic change. Patient currently denies chest. Troponins noted to be elevated however suspect NSTEMI type II in setting of sepsis and MARIE on CKD Recommend conservative cardiac mgmt recommended in light of patient's mental status Telemetry reviewed patient appears to have been in A. fib with RVR earlier however upon exam patient currently A. fib heart rate 90s to low 100s after patient's fever has been controlled and started on antibiotics Agree with Amio 200mg PO BID, metoprolol 100mg PO BID, aspirin, and statin If patient converts back to A. fib with RVR with rate in 130s or higher okay to initiate IV amiodarone bolus and drip Patient on Eliquis for anticoagulation. Close monitoring of H&H. BNP noted to be elevated however patient appears near euvolemic Will hold NATALYA and ARB due to elevated creatinine and documented allergy Patient seen in conjunction with Dr. Anaya who agrees with this plan of care - Patient Problems (1) Sepsis Current Visit: Yes Status: Acute (2) MARIE (acute kidney injury) Current Visit: No Status: Acute (3) Anemia Current Visit: No Status: Acute (4) CKD (chronic kidney disease) Current Visit: No Status: Acute (5) Cardiomyopathy Current Visit: No Status: Acute (6) Elevated troponin Current Visit: No Status: Acute (7) PNA (pneumonia) Current Visit: No Status: Acute Qualifiers: Pneumonia type: aspiration pneumonia (8) Vascular dementia Current Visit: No Status: Chronic Qualifiers: Dementia behavioral disturbance: with behavioral disturbance Qualified Code(s): F01.51 - Vascular dementia with behavioral disturbance
[2022-03-31] MEDS: ACETAMINOPHEN 325 MG TAB PO PRN (16:39)
[2022-03-31] MEDS: CEFEPIME/NS 2 GM/100 ML 2 GM/100 ML BAG IV SCH (20:30)
[2022-03-31] MEDS ORDERED: NON-FORMULARY EACH (Apixaban 5 MG Tablet) PO SCH (22:00)
[2022-03-31] MEDS: AMIODARONE 200 MG TAB PO SCH (22:15)
[2022-03-31] MEDS: QUEtiapine 25 MG TAB PO SCH (22:15)
[2022-03-31] MEDS: METOPROLOL TARTRATE 100 MG TAB PO SCH (22:15)
[2022-03-31] MEDS: APIXABAN 5 MG TAB PO SCH (22:15)
[2022-04-01 05:48] LABS: Color,Urine Yellow (Yellow)
[2022-04-01 05:51] LABS: Bacteria,Urine 1+ /HPF (Negative); Granular Casts,Urine 6 /LPF; Red Blood Cell Casts,Urine 7 /LPF
[2022-04-01] MEDS: ACETAMINOPHEN 325 MG TAB PO PRN ×3 (06:25→21:43)
[2022-04-01 09:03] LABS: Calcium 8.3 mg/dL (8.4-10.2)
[2022-04-01] MEDS: ASPIRIN 81 MG TAB CHEW PO SCH (09:13)
[2022-04-01] MEDS: DOXAZOSIN 4 MG TAB PO SCH (09:13)
[2022-04-01] MEDS: TAMSULOSIN 0.4 MG CAP PO SCH (09:18)
[2022-04-01] MEDS: AMIODARONE 200 MG TAB PO SCH ×2 (09:18→21:32)
[2022-04-01] MEDS: FAMOTIDINE 20 MG TAB PO SCH (09:18)
[2022-04-01] MEDS: APIXABAN 5 MG TAB PO SCH (09:18)
[2022-04-01] MEDS: METOPROLOL TARTRATE 100 MG TAB PO SCH ×2 (09:18→21:32)
[2022-04-01] MEDS: CEFEPIME/NS 2 GM/100 ML 2 GM/100 ML BAG IV SCH ×2 (09:20→21:31)
--- NOTE | 2022-04-01 09:40 | Progress Note ---
Assessment and Plan Assessment and plan: -- A. fib with rapid ventricular rate; Now rate controlled Continue amiodarone, metoprolol Anticoagulation with Eliquis/hold Eliquis as patient's H&H dropped slightly Cardiology evaluation noted and appreciated Supportive care Check stool for occult blood -- Acute on chronic systolic congestive heart failure; LVEF 25 to 30% Diuretics, beta-blockers, no NATALYA inhibitors in view of acute kidney injury Input output monitoring, fluid restriction, supportive care --Non-ST elevation KS; probably type II Serial cardiac enzymes, serial EKG However patient has multiple risk factors Resume home cardiac medications Cardiology consulted -- Febrile illness; PUI Negative COVID test Persistent fever probably due to UTI/hospital-acquired pneumonia Isolation, elizondo PCR test, supportive care -- Pneumonia; hospital-acquired pneumonia Empiric antibiotics Vanco cefepime Blood cultures --Urinary tract infection; present on admission Continue Vanco cefepime Follow cultures -- Sepsis; due to urinary tract infection, hospital-acquired pneumonia Meets the criteria, IV cefepime and Vanco. Follow cultures - Metabolic encephalopathy/dementia Supportive care, treat the underlying cause -- Chronic kidney disease; Closely monitor renal function, avoid nephrotoxin Nephrology consult --Severe protein calorie malnutrition; Nutrition supplements, supportive care Nutrition consult --Severe hypoalbuminemia; albumin 2.8 Nutrition supplements, supportive care -- Nicotine dependence; Smoking cessation counseling Nicotine patch as needed --Full CODE STATUS -- DVT prophylaxis; Patient is on Eliquis --Advance care planning; 30 minutes I discussed with patient's brother Mr. Alfonzo Johnson at [phone] discussed in detail patient's condition, I discussed patient's tests and reports, I discussed consultants evaluation and recommendation findings, I discussed the treatment plan, I discussed the diagnosis, I discussed patient's prognosis, I also discussed the discharge planning and the advanced directives.Mr. Santana Mejía had many questions, I answered all of them He verbalized understanding and appreciative of my call. -- Preventative health care counseling; +32 minutes I discussed with the family the compliance with medications, I discussed the fall precautions I discussed the need for physical therapy occupational therapy, I discussed the possible placement options and he is medically stable Mr. Alfonzo Johnson verbalized understanding, answered all his questions We will closely monitor the patient and adjust management as needed Plan of care reviewed with the patient and his nurse Follow cardiology evaluation recommendations History Interval history: I have seen and examined the patient at the bedside Patient's chart and medications reviewed No new events reported by the nursing Patient is febrile T-max 102 degrees for night Due to sepsis secondary to hospital-acquired pneumonia/UTI Patient's significant other at the bedside Vital signs noted Hospitalist Physical - Constitutional Vitals: Temp Pulse Resp BP Pulse Ox 102.2 F H 64 22 122/69 96 04/01/22 06:12 04/01/22 09:18 04/01/22 06:12 04/01/22 09:18 04/01/22 06:12 General appearance: Present: mild distress, well-nourished, other (Confused/unable to give any history) - EENT Eyes: Present: PERRL, EOM intact - Neck Neck: Present: supple, normal ROM - Respiratory Respiratory effort: normal Respiratory: bilateral: diminished, negative: rales, rhonchi, wheezing - Cardiovascular Rhythm: regular Heart Sounds: Present: S1 & S2 - Extremities Extremities: no ischemia, No edema - Abdominal General gastrointestinal: soft, non-tender, non-distended, normal bowel sounds - Integumentary Integumentary: Present: clear, warm - Psychiatric Psychiatric: cooperative, other (Confused at times) - Neurologic Neurologic: other (Confused) HEART Score - HEART Score Troponin: Troponin T 0.138 ng/mL (0.00-0.029) H* 03/31/22 08:00 Results - Labs CBC & Chem 7: 04/01/22 08:54 04/01/22 08:00 Labs: Laboratory Last Values WBC 15.6 K/mm3 (4.5-11.0) H 03/31/22 08:00 RBC 3.46 M/mm3 (3.65-5.03) L 03/31/22 08:00 Hgb 8.8 gm/dl (11.8-15.2) L 03/31/22 08:00 Hct 28.6 % (35.5-45.6) L 03/31/22 08:00 MCV 83 fl (84-94) L 03/31/22 08:00 MCH 26 pg (28-32) L 03/31/22 08:00 MCHC 31 % (32-34) L 03/31/22 08:00 RDW 18.7 % (13.2-15.2) H 03/31/22 08:00 Plt Count 364 K/mm3 (140-440) 03/31/22 08:00 Lymph % (Auto) 4.2 % (13.4-35.0) L 03/31/22 08:00 [place] % (Auto) 6.3 % (0.0-7.3) 03/31/22 08:00 Eos % (Auto) 3.0 % (0.0-4.3) 03/31/22 08:00 Baso % (Auto) 0.6 % (0.0-1.8) 03/31/22 08:00 Lymph # (Auto) 0.7 K/mm3 (1.2-5.4) L 03/31/22 08:00 [place] # (Auto) 1.0 K/mm3 (0.0-0.8) H 03/31/22 08:00 Eos # (Auto) 0.5 K/mm3 (0.0-0.4) H 03/31/22 08:00 Baso # (Auto) 0.1 K/mm3 (0.0-0.1) 03/31/22 08:00 Seg Neutrophils % 85.9 % (40.0-70.0) H 03/31/22 08:00 Seg Neutrophils # 13.4 K/mm3 (1.8-7.7) H 03/31/22 08:00 Sodium 142 mmol/L (137-145) 04/01/22 08:00 Potassium 4.2 mmol/L (3.6-5.0) 04/01/22 08:00 Chloride 114.8 mmol/L (98-107) H 04/01/22 08:00 Carbon Dioxide 17 mmol/L (22-30) L 04/01/22 08:00 Anion Gap 14 mmol/L 04/01/22 08:00 BUN 19 mg/dL (9-20) 04/01/22 08:00 Creatinine 2.0 mg/dL (0.8-1.3) H 04/01/22 08:00 Estimated GFR 41 ml/min 04/01/22 08:00 BUN/Creatinine Ratio 10 % 04/01/22 08:00 Glucose 99 mg/dL (75-100) 04/01/22 08:00 Lactic Acid 1.20 mmol/L (0.7-2.0) 03/31/22 08:00 Calcium 8.3 mg/dL (8.4-10.2) L 04/01/22 08:00 Magnesium 1.80 mg/dL (1.7-2.3) 03/31/22 08:00 Total Bilirubin 0.50 mg/dL (0.1-1.2) 03/31/22 08:00 AST 14 units/L (5-40) 03/31/22 08:00 ALT 21 units/L (7-56) 03/31/22 08:00 Alkaline Phosphatase 113 units/L (35-129) 03/31/22 08:00 Total Creatine Kinase 55 units/L (55-170) 03/31/22 08:00 Troponin T 0.138 ng/mL (0.00-0.029) H* 03/31/22 08:00 NT-Pro-B Natriuret Pep 04720 pg/mL (0-900) H 03/31/22 08:00 Total Protein 6.6 g/dL (6.3-8.2) 03/31/22 08:00 Albumin 2.8 g/dL (3.9-5) L 03/31/22 08:00 Albumin/Globulin Ratio 0.7 % 03/31/22 08:00 Triglycerides 76 mg/dL (2-149) 03/31/22 08:00 Cholesterol 109 mg/dL (50-199) 03/31/22 08:00 LDL Cholesterol Direct 55 mg/dL (50-130) 03/31/22 08:00 HDL Cholesterol 38 mg/dL (40-59) L 03/31/22 08:00 Cholesterol/HDL Ratio 2.86 % 03/31/22 08:00 Urine Color Yellow (Yellow) 04/01/22 05:20 Urine Turbidity Slightly cloudy (Clear) 04/01/22 05:20 Specific Dow (Man) 1.025 (1.003-1.030) 04/01/22 05:20 Ur Protein (Man) 1+ mg/dL (Negative) 04/01/22 05:20 Ur Ketones (Man) Negative (Negative) 04/01/22 05:20 Ur Nitrite (Man) Negative (Negative) 04/01/22 05:20 Urine Bilirubin (Man) Negative (Negative) 04/01/22 05:20 Leukocyte Esterase (Man) Negative (Negative) 04/01/22 05:20 Urine WBC (Auto) 5.0 /HPF (0.0-6.0) 04/01/22 05:20 Urine RBC (Auto) 1.0 /HPF (0.0-6.0) 04/01/22 05:20 Urine Bacteria (Auto) 1+ /HPF (Negative) 04/01/22 05:20 Urine RBC (Manual) Trace (Negative) 04/01/22 05:20 Granular Casts 6 /LPF 04/01/22 05:20 RBC Casts 7 /LPF 04/01/22 05:20 Urine Yeast (Budding) 1+ /HPF 04/01/22 05:20 SARS-CoV-2 (PCR) Negative (Negative) 03/31/22 14:25 Microbiology: Microbiology 03/31/22 08:00 Peripheral/Venous Blood Culture - Preliminary Culture in Progress 03/31/22 08:00 Peripheral/Venous Blood Culture - Preliminary Culture in Progress [place]/IV: Voiding Method Condom Catheter Active Medications - Current Medications Current Medications: Generic Name Dose Route Start Last Admin Trade Name Freq PRN Reason Stop Dose Admin Acetaminophen 650 mg 03/31/22 13:31 04/01/22 06:25 Acetaminophen 325 Mg Tab PO 650 mg Q4H PRN Administration Pain MILD(1-3)/Fever >100.5/HILTON Amiodarone HCl 200 mg 03/31/22 22:00 04/01/22 09:18 Amiodarone 200 Mg Tab PO 200 mg BID FRANCESCA Administration Apixaban 5 mg 03/31/22 22:00 04/01/22 09:18 Apixaban 5 Mg Tab PO 5 mg Q12HR FRANCESCA Administration Aspirin 81 mg 04/01/22 10:00 04/01/22 09:13 Aspirin 81 Mg Tab Chew PO 81 mg QDAY FRANCESCA Administration Atorvastatin Calcium 40 mg 03/31/22 22:00 03/31/22 22:15 Atorvastatin 40 Mg Tab PO 40 mg QHS FRANCESCA Administration Doxazosin Mesylate 4 mg 04/01/22 10:00 04/01/22 09:13 Doxazosin 4 Mg Tab PO 4 mg QDAY FRANCESCA Administration Famotidine 20 mg 04/01/22 10:00 04/01/22 09:18 Famotidine 20 Mg Tab PO 20 mg DAILY FRANCESCA Administration Cefepime HCl 2 gm in 100 mls @ 200 mls/hr 03/31/22 20:00 04/01/22 09:20 Cefepime/Ns 2 Gm/100 Ml IV 200 mls/hr Q12H FRANCESCA Administration Protocol Azithromycin 500 mg in 250 mls @ 250 mls/hr 04/01/22 10:00 Zithromax/Ns IV Q24H [facility] Methotrexate 15 mg 04/07/22 14:00 Methotrexate 2.5 Mg Tab (Dose Weekly Only) PO Th [facility] Metoprolol Tartrate 100 mg 03/31/22 22:00 04/01/22 09:18 Metoprolol Tartrate 100 Mg Tab PO 100 mg BID FRANCESCA Administration Morphine Sulfate 2 mg 03/31/22 13:31 Morphine 2 Mg/1 Ml Inj IV Q4H PRN Pain, Moderate (4-6) Morphine Sulfate 4 mg 03/31/22 13:31 Morphine 4 Mg/1 Ml Inj IV Q4H PRN Pain , Severe (7-10) Ondansetron HCl 4 mg 03/31/22 13:31 Ondansetron 4 Mg/2 Ml Inj IV Q8H PRN Nausea And Vomiting Quetiapine Fumarate 50 mg 03/31/22 22:00 03/31/22 22:15 Quetiapine 25 Mg Tab PO 50 mg QHS FRANCESCA Administration Sodium Chloride 10 ml 03/31/22 22:00 04/01/22 09:18 Sodium Chloride 0.9% 10 Ml Flush Syringe IV 10 ml BID FRANCESCA Administration Sodium Chloride 10 ml 03/31/22 13:31 Sodium Chloride 0.9% 10 Ml Flush Syringe IV PRN PRN LINE FLUSH Tamsulosin HCl 0.4 mg 04/01/22 10:00 04/01/22 09:18 Tamsulosin 0.4 Mg Cap PO 0.4 mg QDAY FRANCESCA Administration
[2022-04-01] MEDS ORDERED: VANCOMYCIN 1,250 MG in SODIUM CHLORIDE 0.9% 250ML 250 ML IV SCH (10:00)
[2022-04-01] MEDS ORDERED: AZITHROMYCIN/NS 500 MG/250 ML 500 MG/250 ML BAG IV SCH (10:00)
[2022-04-01 10:01] LABS: Hematocrit 22.6 % (35.5-45.6); Hemoglobin 7.4 gm/dl (11.8-15.2); Mean Corpuscular HGB Conc 33 % (32-34); Mean Corpuscular Volume 81 fl (84-94); Platelet Count 291 K/mm3 (140-440); Red Blood Count 2.81 M/mm3 (3.65-5.03); Red Cell Distribution Width 19.1 % (13.2-15.2)
--- NOTE | 2022-04-01 10:35 | Electrocardiograph Report ---
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
--- NOTE | 2022-04-01 10:41 | Electrocardiograph Report ---
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
--- NOTE | 2022-04-01 10:42 | Progress Note ---
Assessment and Plan Patient is a 67-year-old male with a past medical history of cardiomyopathy (EF 25 to 30%), A. fib, CKD, hypertension, and dementia who was brought to the ED by EMS for fever and SOB x3 days. Sepsis PNA NSTEMI suspect type II MARIE on CKD Cardiomyopathy A. fib Hypertension Anemia Vascular dementia Echo 03/09/2022-EF 25 to 30%. Severe global hypokinesis of left ventricle. Moderate concentric LVH. Mild diastolic dysfunction is present impaired relaxation pattern. Moderate aortic regurgitation. No pericardial effusion Plan: Troponins noted to be elevated however suspect NSTEMI type II in setting of sepsis and MARIE on CKD Recommend conservative cardiac mgmt recommended in light of patient's mental status Telemetry reviewed :patient is A. fib heart rate 90s to low 100s Continue Amio 200mg PO BID, metoprolol 100mg PO BID, aspirin, and statin If patient converts back to A. fib with RVR with rate in 130s or higher okay to initiate IV amiodarone bolus and drip Patient H&H noted to drop after being on Eliquis will hold anticoagulation at this time. Patient may not be candidate for anticoagulation as during previous admission patient H&H dropped after initiating Will get stool guaiac study BNP noted to be elevated however patient appears near euvolemic Will hold NATALYA and ARB due to elevated creatinine and documented allergy Patient seen in conjunction with Dr. Anaya who agrees with this plan of care - Patient Problems (1) Sepsis Current Visit: Yes Status: Acute (2) MARIE (acute kidney injury) Current Visit: No Status: Acute (3) Anemia Current Visit: No Status: Acute (4) CKD (chronic kidney disease) Current Visit: No Status: Acute (5) Cardiomyopathy Current Visit: No Status: Acute (6) Elevated troponin Current Visit: No Status: Acute (7) PNA (pneumonia) Current Visit: No Status: Acute Qualifiers: Pneumonia type: aspiration pneumonia (8) Vascular dementia Current Visit: No Status: Chronic Qualifiers: Dementia behavioral disturbance: with behavioral disturbance Qualified Code(s): F01.51 - Vascular dementia with behavioral disturbance Subjective Date of service: 04/01/22 Principal diagnosis: Sepsis Interval history: Patient resting in bed in no acute distress Afib 90s-low 100s on monitor Objective Vital Signs Temp Pulse Resp BP Pulse Ox 04/01/22 09:18 64 122/69 04/01/22 09:13 62 122/69 04/01/22 06:12 102.2 F H 61 22 137/74 96 04/01/22 05:00 97 03/31/22 22:15 83 146/76 03/31/22 21:50 97.5 F L 83 20 146/76 97 03/31/22 21:35 98 03/31/22 17:03 18 97 03/31/22 16:14 97.7 F 73 24 160/93 97 03/31/22 15:51 89 16 183/93 99 03/31/22 15:41 100 H 15 154/88 100 03/31/22 15:31 95 H 30 H 154/88 98 03/31/22 15:01 122 H 41 H 193/94 97 03/31/22 14:45 127 H 42 H 193/94 97 03/31/22 14:31 116 H 39 H 181/91 98 03/31/22 14:15 116 H 28 H 176/88 98 03/31/22 14:01 109 H 25 H 162/89 99 03/31/22 13:45 112 H 16 172/92 98 03/31/22 13:31 106 H 27 H 175/89 98 03/31/22 13:15 118 H 29 H 172/92 95 03/31/22 13:01 123 H 35 H 162/89 98 03/31/22 12:45 113 H 34 H 162/89 97 03/31/22 12:40 98.4 F 03/31/22 12:31 116 H 50 H 163/94 98 03/31/22 12:15 122 H 56 H 185/108 98 03/31/22 12:01 126 H 44 H 175/121 98 03/31/22 11:45 122 H 53 H 175/121 96 03/31/22 11:31 125 H 40 H 153/89 98 03/31/22 11:15 134 H 51 H 141/79 98 03/31/22 11:01 121 H 36 H 152/60 96 03/31/22 10:45 118 H 51 H 152/60 93 - Physical Examination General: No Apparent Distress HEENT: Positive: Mucus Membranes Dry Neck: Positive: trachea midline Cardiac: Positive: irregularly irregular Lungs: Positive: Rhonchi Neuro: Positive: Grossly Intact Abdomen: Positive: Soft Skin: Negative: Rash, Suspicious Lesions, Ulceration Extremities: Present: upper extr. pulses. Absent: edema - Labs and Meds CBC 04/01/22 Range/Units 08:54 WBC 12.6 H (4.5-11.0) K/mm3 RBC 2.81 L (3.65-5.03) M/mm3 Hgb 7.4 L (11.8-15.2) gm/dl Hct 22.6 L D (35.5-45.6) % Plt Count 291 (140-440) K/mm3 Comprehensive Metabolic Panel 04/01/22 Range/Units 08:00 Sodium 142 (137-145) mmol/L Potassium 4.2 (3.6-5.0) mmol/L Chloride 114.8 H (98-107) mmol/L Carbon Dioxide 17 L (22-30) mmol/L BUN 19 (9-20) mg/dL Creatinine 2.0 H (0.8-1.3) mg/dL Glucose 99 (75-100) mg/dL Calcium 8.3 L (8.4-10.2) mg/dL - Imaging and Cardiology Echo: report reviewed - Telemetry EKG Rhythm: Atrial Fibrillation - EKG Sinus rhythms and dysrhythmias: sinus tachycardia Chamber hypertrophy or enlargement: left ventricular hypertro
[2022-04-01] MEDS: QUEtiapine 25 MG TAB PO SCH (21:32)
[2022-04-02] MEDS: MORPHINE 2 MG/1 ML INJ IV PRN (03:15)
[2022-04-02 04:49] LABS: Hematocrit 20.6 % (35.5-45.6); Hemoglobin 6.8 gm/dl (11.8-15.2); Mean Corpuscular HGB Conc 33 % (32-34); Mean Corpuscular Volume 80 fl (84-94); Platelet Count 237 K/mm3 (140-440); Red Blood Count 2.59 M/mm3 (3.65-5.03)
[2022-04-02 05:10] LABS: Calcium 8.3 mg/dL (8.4-10.2)
[2022-04-02] MEDS: CEFEPIME/NS 2 GM/100 ML 2 GM/100 ML BAG IV SCH ×2 (09:26→21:53)
[2022-04-02] MEDS: AMIODARONE 200 MG TAB PO SCH ×2 (09:27→21:53)
[2022-04-02] MEDS: DOXAZOSIN 4 MG TAB PO SCH (09:27)
[2022-04-02] MEDS: TAMSULOSIN 0.4 MG CAP PO SCH (09:27)
[2022-04-02] MEDS: FAMOTIDINE 20 MG TAB PO SCH (09:27)
[2022-04-02] MEDS: METOPROLOL TARTRATE 100 MG TAB PO SCH ×2 (09:27→21:54)
[2022-04-02] MEDS: ASPIRIN 81 MG TAB CHEW PO SCH (09:27)
[2022-04-02] MEDS ORDERED: VANCOMYCIN 1,250 MG in SODIUM CHLORIDE 0.9% 250ML 250 ML IV ONE (10:00)
[2022-04-02] MEDS ORDERED: SODIUM CHLORIDE 0.9% 500 ML 500 ML IV ONE (10:31)
--- NOTE | 2022-04-02 10:34 | Progress Note ---
Assessment and Plan Assessment and plan: --Anemia; Hb 6.8 Hemoglobin today 6.8, patient was on Eliquis which was stopped Type and cross, transfuse 1 unit PRBC today Stool guaiac requested pending report No external evidence of bleeding, GI consult if needed -- A. fib with rapid ventricular rate; rate controlled Continue amiodarone, metoprolol Anticoagulation with Eliquis/hold Eliquis as patient's H&H dropped slightly Cardiology evaluation noted and appreciated Follow-up stool for occult blood -- Acute on chronic systolic congestive heart failure; LVEF 25 to 30% Diuretics, beta-blockers, no ANTALYA inhibitors in view of acute kidney injury Input output monitoring, fluid restriction, supportive care --Non-ST elevation NV; probably type II Serial cardiac enzymes, serial EKG However patient has multiple risk factors Resume home cardiac medications Cardiology consulted -- Febrile illness; PUI/COVID-19 negative Negative COVID test Persistent fever probably due to UTI/hospital-acquired pneumonia Isolation, elizondo PCR test, supportive care -- Pneumonia; hospital-acquired pneumonia Empiric antibiotics Vanco cefepime Blood cultures --Urinary tract infection; present on admission Continue Vanco cefepime Follow cultures -- Sepsis; due to urinary tract infection, hospital-acquired pneumonia Meets the criteria, IV cefepime and Vanco. Follow cultures - Metabolic encephalopathy/dementia Supportive care, treat the underlying cause -- Chronic kidney disease; Closely monitor renal function, avoid nephrotoxin Nephrology consult --Severe protein calorie malnutrition; Nutrition supplements, supportive care Nutrition consult --Severe hypoalbuminemia; albumin 2.8 Nutrition supplements, supportive care -- Nicotine dependence; Smoking cessation counseling Nicotine patch as needed --Full CODE STATUS -- DVT prophylaxis; Patient is on Eliquis --Advance care planning; 30 minutes I discussed with patient's brother Mr. Alfonzo Johnson at [phone] discussed in detail patient's condition, I discussed patient's tests and reports, I discussed consultants evaluation and recommendation findings, I discussed the treatment plan, I discussed the diagnosis, I discussed patient's prognosis, I also discussed the discharge planning and the advanced directives.Mr. Santana Mejía had many questions, I answered all of them He verbalized understanding and appreciative of my call. -- Preventative health care counseling; +32 minutes I discussed with the family the compliance with medications, I discussed the fall precautions I discussed the need for physical therapy occupational therapy, I discussed the possible placement options and he is medically stable Mr. Alfonzo Johnson verbalized understanding, answered all his questions We will closely monitor the patient and adjust management as needed Plan of care reviewed with the patient and his nurse Follow cardiology evaluation recommendations 04/01/2020; patient is febrile, mild distress, on Vanco and cefepime, follow cultures 04/02; patient's hemoglobin dropped to 6.8, 1 unit PRBC transfusion, Eliquis held, follow stool guaiac Cardiology recommendations noted and appreciated History Interval history: I have seen and examined the patient at the bedside, patient's chart and medications reviewed Patient's hemoglobin dropped to 6.8 No external evidence of bleeding Stool for occult blood requested ,was not done yet Vital signs noted Patient is febrile and septic Hospitalist Physical - Constitutional Vitals: Temp Pulse Resp BP Pulse Ox 98.9 F 81 18 130/73 97 04/02/22 05:35 04/02/22 05:35 04/02/22 05:35 04/02/22 05:35 04/02/22 08:03 General appearance: Present: mild distress, well-nourished, other (Confused/un able to give any history) - EENT Eyes: Present: PERRL, EOM intact - Neck Neck: Present: supple, normal ROM - Respiratory Respiratory effort: normal Respiratory: bilateral: diminished, negative: rales, rhonchi, wheezing - Cardiovascular Rhythm: regular Heart Sounds: Present: S1 & S2 - Extremities Extremities: no ischemia, No edema - Abdominal General gastrointestinal: soft, non-tender, non-distended, normal bowel sounds - Integumentary Integumentary: Present: clear, warm - Psychiatric Psychiatric: appropriate mood/affect, cooperative - Neurologic Neurologic: CNII-XII intact, other - Allied Health Allied health notes reviewed: social work HEART Score - HEART Score Troponin: Troponin T 0.138 ng/mL (0.00-0.029) H* 03/31/22 08:00 Results - Labs CBC & Chem 7: 04/02/22 04:40 04/02/22 04:40 Labs: Laboratory Last Values WBC 10.2 K/mm3 (4.5-11.0) 04/02/22 04:40 RBC 2.59 M/mm3 (3.65-5.03) L 04/02/22 04:40 Hgb 6.8 gm/dl (11.8-15.2) L 04/02/22 04:40 Hct 20.6 % (35.5-45.6) L 04/02/22 04:40 MCV 80 fl (84-94) L 04/02/22 04:40 MCH 26 pg (28-32) L 04/02/22 04:40 MCHC 33 % (32-34) 04/02/22 04:40 RDW 19.0 % (13.2-15.2) H 04/02/22 04:40 Plt Count 237 K/mm3 (140-440) 04/02/22 04:40 Lymph % (Auto) 4.2 % (13.4-35.0) L 03/31/22 08:00 [place] % (Auto) 6.3 % (0.0-7.3) 03/31/22 08:00 Eos % (Auto) 3.0 % (0.0-4.3) 03/31/22 08:00 Baso % (Auto) 0.6 % (0.0-1.8) 03/31/22 08:00 Lymph # (Auto) 0.7 K/mm3 (1.2-5.4) L 03/31/22 08:00 [place] # (Auto) 1.0 K/mm3 (0.0-0.8) H 03/31/22 08:00 Eos # (Auto) 0.5 K/mm3 (0.0-0.4) H 03/31/22 08:00 Baso # (Auto) 0.1 K/mm3 (0.0-0.1) 03/31/22 08:00 Seg Neutrophils % 85.9 % (40.0-70.0) H 03/31/22 08:00 Seg Neutrophils # 13.4 K/mm3 (1.8-7.7) H 03/31/22 08:00 Sodium 142 mmol/L (137-145) 04/02/22 04:40 Potassium 3.8 mmol/L (3.6-5.0) 04/02/22 04:40 Chloride 113.9 mmol/L (98-107) H 04/02/22 04:40 Carbon Dioxide 17 mmol/L (22-30) L 04/02/22 04:40 Anion Gap 15 mmol/L 04/02/22 04:40 BUN 21 mg/dL (9-20) H 04/02/22 04:40 Creatinine 2.2 mg/dL (0.8-1.3) H 04/02/22 04:40 Estimated GFR 36 ml/min 04/02/22 04:40 BUN/Creatinine Ratio 10 % 04/02/22 04:40 Glucose 84 mg/dL (75-100) 04/02/22 04:40 Lactic Acid 1.20 mmol/L (0.7-2.0) 03/31/22 08:00 Calcium 8.3 mg/dL (8.4-10.2) L 04/02/22 04:40 Magnesium 1.80 mg/dL (1.7-2.3) 03/31/22 08:00 Total Bilirubin 0.50 mg/dL (0.1-1.2) 03/31/22 08:00 AST 14 units/L (5-40) 03/31/22 08:00 ALT 21 units/L (7-56) 03/31/22 08:00 Alkaline Phosphatase 113 units/L (35-129) 03/31/22 08:00 Total Creatine Kinase 55 units/L (55-170) 03/31/22 08:00 Troponin T 0.138 ng/mL (0.00-0.029) H* 03/31/22 08:00 NT-Pro-B Natriuret Pep 88208 pg/mL (0-900) H 03/31/22 08:00 Total Protein 6.6 g/dL (6.3-8.2) 03/31/22 08:00 Albumin 2.8 g/dL (3.9-5) L 03/31/22 08:00 Albumin/Globulin Ratio 0.7 % 03/31/22 08:00 Triglycerides 76 mg/dL (2-149) 03/31/22 08:00 Cholesterol 109 mg/dL (50-199) 03/31/22 08:00 LDL Cholesterol Direct 55 mg/dL (50-130) 03/31/22 08:00 HDL Cholesterol 38 mg/dL (40-59) L 03/31/22 08:00 Cholesterol/HDL Ratio 2.86 % 03/31/22 08:00 Procalcitonin 0.36 ng/mL (<0.15) 03/31/22 08:00 Urine Color Yellow (Yellow) 04/01/22 05:20 Urine Turbidity Slightly cloudy (Clear) 04/01/22 05:20 Specific [place] (Man) 1.025 (1.003-1.030) 04/01/22 05:20 Ur Protein (Man) 1+ mg/dL (Negative) 04/01/22 05:20 Ur Ketones (Man) Negative (Negative) 04/01/22 05:20 Ur Nitrite (Man) Negative (Negative) 04/01/22 05:20 Urine Bilirubin (Man) Negative (Negative) 04/01/22 05:20 Leukocyte Esterase (Man) Negative (Negative) 04/01/22 05:20 Urine WBC (Auto) 5.0 /HPF (0.0-6.0) 04/01/22 05:20 Urine RBC (Auto) 1.0 /HPF (0.0-6.0) 04/01/22 05:20 Urine Bacteria (Auto) 1+ /HPF (Negative) 04/01/22 05:20 Urine RBC (Manual) Trace (Negative) 04/01/22 05:20 Granular Casts 6 /LPF 04/01/22 05:20 RBC Casts 7 /LPF 04/01/22 05:20 Urine Yeast (Budding) 1+ /HPF 04/01/22 05:20 Random Vancomycin 9.6 ug/mL (0-40.0) 04/02/22 04:40 SARS-CoV-2 (PCR) Negative (Negative) 03/31/22 14:25 Microbiology: Microbiology 03/31/22 08:00 Peripheral/Venous Blood Culture - Preliminary NO GROWTH AFTER 24 HOURS 03/31/22 08:00 Peripheral/Venous Blood Culture - Preliminary NO GROWTH AFTER 24 HOURS [place]/IV: Voiding Method Incontinent Active Medications - Current Medications Current Medications: Generic Name Dose Route Start Last Admin Trade Name Freq PRN Reason Stop Dose Admin Acetaminophen 650 mg 03/31/22 13:31 04/01/22 21:43 Acetaminophen 325 Mg Tab PO 650 mg Q4H PRN Administration Pain MILD(1-3)/Fever >100.5/[place] Amiodarone HCl 200 mg 03/31/22 22:00 04/02/22 09:27 Amiodarone 200 Mg Tab PO 200 mg BID FRANCESCA Administration Aspirin 81 mg 04/01/22 10:00 04/02/22 09:27 Aspirin 81 Mg Tab Chew PO 81 mg QDAY FRANCESCA Administration Atorvastatin Calcium 40 mg 03/31/22 22:00 04/01/22 21:32 Atorvastatin 40 Mg Tab PO 40 mg QHS FRANCESCA Administration Doxazosin Mesylate 4 mg 04/01/22 10:00 04/02/22 09:27 Doxazosin 4 Mg Tab PO 4 mg QDAY FRANCESCA Administration Famotidine 20 mg 04/01/22 10:00 04/02/22 09:27 Famotidine 20 Mg Tab PO 20 mg DAILY FRANCESCA Administration Cefepime HCl 2 gm in 100 mls @ 200 mls/hr 03/31/22 20:00 04/02/22 09:26 Cefepime/Ns 2 Gm/100 Ml IV 200 mls/hr Q12H FRANCESCA Administration Protocol Vancomycin HCl 1,250 mg/ 275 mls @ 166.667 mls/hr 04/02/22 10:00 Sodium Chloride IV 04/02/22 11:38 ONCE ONE Vancomycin HCl 1,250 mg/ 275 mls @ 166.667 mls/hr 04/04/22 10:00 Sodium Chloride IV 04/04/22 11:38 ONCE ONE Sodium Chloride 500 mls @ 0 mls/hr 04/02/22 10:31 Nacl 0.9% 500 Ml IV 04/02/22 10:32 ONCE ONE As Directed Methotrexate 15 mg 04/07/22 14:00 Methotrexate 2.5 Mg Tab (Dose Weekly Only) PO Critical access hospital Metoprolol Tartrate 100 mg 03/31/22 22:00 04/02/22 09:27 Metoprolol Tartrate 100 Mg Tab PO 100 mg BID FRANCESCA Administration Morphine Sulfate 2 mg 03/31/22 13:31 04/02/22 03:15 Morphine 2 Mg/1 Ml Inj IV 2 mg Q4H PRN Administration Pain, Moderate (4-6) Morphine Sulfate 4 mg 03/31/22 13:31 Morphine 4 Mg/1 Ml Inj IV Q4H PRN Pain , Severe (7-10) Ondansetron HCl 4 mg 03/31/22 13:31 Ondansetron 4 Mg/2 Ml Inj IV Q8H PRN Nausea And Vomiting Quetiapine Fumarate 50 mg 03/31/22 22:00 04/01/22 21:32 Quetiapine 25 Mg Tab PO 50 mg QHS FRANCESCA Administration Sodium Chloride 10 ml 03/31/22 22:00 04/02/22 09:27 Sodium Chloride 0.9% 10 Ml Flush Syringe IV 10 ml BID FRANCESCA Administration Sodium Chloride 10 ml 03/31/22 13:31 04/02/22 03:15 Sodium Chloride 0.9% 10 Ml Flush Syringe IV 10 ml PRN PRN Administration LINE FLUSH Tamsulosin HCl 0.4 mg 04/01/22 10:00 04/02/22 09:27 Tamsulosin 0.4 Mg Cap PO 0.4 mg QDAY FRANCESCA Administration Nutrition/Malnutrition Assess - Dietary Evaluation Nutrition/Malnutrition Findings: Nutrition Notes Start: 04/01/22 10:53 Freq: Status: Active Protocol: Document 04/01/22 10:53 SIM (Rec: 04/01/22 11:00 SIM [email or web address]) Nutrition Notes Need for Assessment 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 RN reports pt with poor appetite; 0% meals consumed yesterday. Pt is currently alert and oriented x 2 and missing teeth. Burn Absent Trauma Absent Current % PO Negligible Minimum of two criteria No Energy Intake (non-severe) <75% Estimated Energy Requirement >7 days #1 Nutrition Diagnosis Inadequate protein-energy intake Etiology vascular dementia, SANTINO As Evidenced by Signs and Symptoms pt with poor appetite and consumed 0% of meals yesterday Is patient on ventilator? No Is Patient Ambulatory and/or Out of Bed No REE-([facility]-confined to bed) 1990.124 Calculation Used for Recommendations [facility] Additional Notes Pro needs 0.6-0.8g/k-71g/ day Fluid needs per MD. Nutrition Intervention Change Diet Order: Add mech soft restriction to current diet order Add Supplement/Snack (indicate name/kcal Ensure High Protein BID /protein ) Provides kCal: 320 Provides Protein (gm) 32 Goal #1 PO intake of meals plus ONS to meet at least 75% energy and pro needs Anticipated Discharge Needs: Unable to identify at this time Follow-Up By: 04/05/22 Additional Comments F/U: intakes (meals, ONS), COVID-19 test results
--- NOTE | 2022-04-02 13:52 | Progress Note ---
Assessment and Plan Continue current management. - Patient Problems (1) Sepsis Current Visit: Yes Status: Acute (2) PNA (pneumonia) Current Visit: Yes Status: Acute Qualifiers: Pneumonia type: aspiration pneumonia (3) Paroxysmal atrial fibrillation with RVR Current Visit: Yes Status: Acute (4) Acute kidney injury superimposed on chronic kidney disease Current Visit: Yes Status: Acute (5) Cardiomyopathy Current Visit: Yes Status: Chronic (6) NSTEMI (non-ST elevated myocardial infarction) Current Visit: Yes Status: Acute (7) Hypertension Current Visit: Yes Status: Chronic Qualifiers: Hypertension type: primary hypertension Qualified Code(s): I10 - Essential (primary) hypertension (8) Anemia Current Visit: Yes Status: Acute (9) Vascular dementia Current Visit: Yes Status: Chronic Qualifiers: Dementia behavioral disturbance: with behavioral disturbance Qualified Code(s): F01.51 - Vascular dementia with behavioral disturbance Subjective Date of service: 04/02/22 Principal diagnosis: Sepsis Interval history: No complaint. Objective Vital Signs Temp Pulse Resp BP BP Pulse Ox 04/02/22 12:24 98.3 F 75 106/49 98 04/02/22 08:03 97 04/02/22 05:35 98.9 F 81 18 130/73 99 04/02/22 01:51 20 97 04/01/22 21:40 125/74 04/01/22 21:33 99.9 F H 80 98 04/01/22 21:32 88 125/74 04/01/22 19:02 99.9 F H 04/01/22 15:30 101.5 F H 62 20 105/55 100 04/01/22 15:18 20 97 - Physical Examination General: No Apparent Distress HEENT: Positive: EOMI, Normocephaly, Mucus Membranes Moist, Mucus Membranes Dry Neck: Positive: neck supple, trachea midline Cardiac: Positive: Reg Rate and Rhythm, S1/S2 Neuro: Positive: Grossly Intact Abdomen: Positive: Soft, Active Bowel Sounds. Negative: Tender Skin: Negative: Rash, Suspicious Lesions, Ulceration Musculoskeletal: No Fluid Collection Extremities: Absent: edema - Labs and Meds CBC 04/02/22 Range/Units 04:40 WBC 10.2 (4.5-11.0) K/mm3 RBC 2.59 L (3.65-5.03) M/mm3 Hgb 6.8 L (11.8-15.2) gm/dl Hct 20.6 L (35.5-45.6) % Plt Count 237 (140-440) K/mm3 Comprehensive Metabolic Panel 04/02/22 Range/Units 04:40 Sodium 142 (137-145) mmol/L Potassium 3.8 (3.6-5.0) mmol/L Chloride 113.9 H (98-107) mmol/L Carbon Dioxide 17 L (22-30) mmol/L BUN 21 H (9-20) mg/dL Creatinine 2.2 H (0.8-1.3) mg/dL Glucose 84 (75-100) mg/dL Calcium 8.3 L (8.4-10.2) mg/dL - Telemetry EKG Rhythm: Sinus Rhythm - EKG Sinus rhythms and dysrhythmias: sinus tachycardia Chamber hypertrophy or enlargement: left ventricular hypertro
[2022-04-02] MEDS ORDERED: SODIUM CHLORIDE 0.9% 500 ML 500 ML ONE (15:02)
[2022-04-02] MEDS: ACETAMINOPHEN 325 MG TAB PO PRN (18:21)
[2022-04-02] MEDS: QUEtiapine 25 MG TAB PO SCH (21:53)
[2022-04-03] MEDS: MORPHINE 2 MG/1 ML INJ IV PRN ×2 (00:54→09:50)
[2022-04-03 05:41] LABS: Hematocrit 22.3 % (35.5-45.6); Hemoglobin 7.2 gm/dl (11.8-15.2)
[2022-04-03] MEDS: TAMSULOSIN 0.4 MG CAP PO SCH (09:03)
[2022-04-03] MEDS: ASPIRIN 81 MG TAB CHEW PO SCH (09:03)
[2022-04-03] MEDS: FAMOTIDINE 20 MG TAB PO SCH (09:03)
[2022-04-03] MEDS: CEFEPIME/NS 2 GM/100 ML 2 GM/100 ML BAG IV SCH ×2 (09:04→21:25)
[2022-04-03] MEDS: DOXAZOSIN 4 MG TAB PO SCH (09:04)
[2022-04-03] MEDS: METOPROLOL TARTRATE 100 MG TAB PO SCH ×2 (09:04→21:28)
[2022-04-03] MEDS: AMIODARONE 200 MG TAB PO SCH ×2 (09:04→21:27)
--- NOTE | 2022-04-03 11:09 | Progress Note ---
Assessment and Plan Assessment and plan: --Anemia; Hb 6.8-7.2 Received 1 unit of PRBC today, Eliquis held Hb today 7.2, closely monitor transfuse additional PRBC as needed Stool for occult blood is positive Consulted GI -- A. fib with rapid ventricular rate; rate controlled Continue amiodarone, metoprolol Eliquis held due to anemia, heme positive stool, GI consult Cardiology evaluation noted and appreciated Follow-up stool for occult blood -- Acute on chronic systolic congestive heart failure; LVEF 25 to 30% Diuretics, beta-blockers, no NATALYA inhibitors in view of acute kidney injury Input output monitoring, fluid restriction, supportive care --Non-ST elevation CA; probably type II Serial cardiac enzymes, serial EKG However patient has multiple risk factors Resume home cardiac medications Cardiology consulted -- Febrile illness; PUI/COVID-19 negative Negative COVID test Persistent fever probably due to UTI/hospital-acquired pneumonia Isolation, elizondo PCR test, supportive care -- Pneumonia; hospital-acquired pneumonia Empiric antibiotics Vanco cefepime Blood cultures --Urinary tract infection; present on admission Continue Vanco cefepime Follow cultures -- Sepsis; due to urinary tract infection, hospital-acquired pneumonia Meets the criteria, IV cefepime and Vanco. Follow cultures - Metabolic encephalopathy/dementia Supportive care, treat the underlying cause -- Chronic kidney disease; Closely monitor renal function, avoid nephrotoxin Nephrology consult --Severe protein calorie malnutrition; Nutrition supplements, supportive care Nutrition consult --Severe hypoalbuminemia; albumin 2.8 Nutrition supplements, supportive care -- Nicotine dependence; Smoking cessation counseling Nicotine patch as needed --Full CODE STATUS -- DVT prophylaxis; Patient is on Eliquis --Advance care planning; 30 minutes I discussed with patient's brother Mr. Alfonzo Johnson at [phone] discussed in detail patient's condition, I discussed patient's tests and reports, I discussed consultants evaluation and recommendation findings, I discussed the treatment plan, I discussed the diagnosis, I discussed patient's prognosis, I also discussed the discharge planning and the advanced directives.Mr. Santana Mejía had many questions, I answered all of them He verbalized understanding and appreciative of my call. -- Preventative health care counseling; +32 minutes I discussed with the family the compliance with medications, I discussed the fall precautions I discussed the need for physical therapy occupational therapy, I discussed the possible placement options and he is medically stable Mr. Alfonzo Johnson verbalized understanding, answered all his questions We will closely monitor the patient and adjust management as needed Plan of care reviewed with the patient and his nurse Follow cardiology evaluation recommendations 04/01/2020; patient is febrile, mild distress, on Vanco and cefepime, follow cultures 04/02; patient's hemoglobin dropped to 6.8, 1 unit PRBC transfusion, Eliquis held, follow stool guaiac Cardiology recommendations noted and appreciated 04/03; received 1 unit PRBC yesterday, Hb today 7.2, closely monitor History Interval history: I have seen and examined the patient at the bedside this morning Patient's chart and medications reviewed Patient's spouse at the bedside, No new complaints Received 1 unit of PRBC, Hb improved to 7.2 Hospitalist Physical - Constitutional Vitals: Temp Pulse Resp BP Pulse Ox 97.9 F 78 20 115/68 97 04/02/22 21:00 04/02/22 21:00 04/02/22 21:00 04/02/22 21:00 04/03/22 10:00 General appearance: Present: no acute distress, well-nourished, other (Looks tired) - EENT Eyes: Present: PERRL, EOM intact - Neck Neck: Present: supple, normal ROM - Respiratory Respiratory effort: normal Respiratory: bilateral: diminished, negative: rales, rhonchi, wheezing - Cardiovascular Rhythm: regular Heart Sounds: Present: S1 & S2 - Extremities Extremities: no ischemia, No edema - Abdominal General gastrointestinal: soft, non-tender, non-distended, normal bowel sounds - Integumentary Integumentary: Present: clear, warm - Psychiatric Psychiatric: appropriate mood/affect, cooperative - Neurologic Neurologic: CNII-XII intact, moves all extremities HEART Score - HEART Score Troponin: Troponin T 0.138 ng/mL (0.00-0.029) H* 03/31/22 08:00 Results - Labs CBC & Chem 7: 04/03/22 05:05 04/03/22 05:05 Labs: Laboratory Last Values WBC 10.2 K/mm3 (4.5-11.0) 04/02/22 04:40 RBC 2.59 M/mm3 (3.65-5.03) L 04/02/22 04:40 Hgb 7.2 gm/dl (11.8-15.2) L 04/03/22 05:05 Hct 22.3 % (35.5-45.6) L 04/03/22 05:05 MCV 80 fl (84-94) L 04/02/22 04:40 MCH 26 pg (28-32) L 04/02/22 04:40 MCHC 33 % (32-34) 04/02/22 04:40 RDW 19.0 % (13.2-15.2) H 04/02/22 04:40 Plt Count 237 K/mm3 (140-440) 04/02/22 04:40 Lymph % (Auto) 4.2 % (13.4-35.0) L 03/31/22 08:00 [place] % (Auto) 6.3 % (0.0-7.3) 03/31/22 08:00 Eos % (Auto) 3.0 % (0.0-4.3) 03/31/22 08:00 Baso % (Auto) 0.6 % (0.0-1.8) 03/31/22 08:00 Lymph # (Auto) 0.7 K/mm3 (1.2-5.4) L 03/31/22 08:00 [place] # (Auto) 1.0 K/mm3 (0.0-0.8) H 03/31/22 08:00 Eos # (Auto) 0.5 K/mm3 (0.0-0.4) H 03/31/22 08:00 Baso # (Auto) 0.1 K/mm3 (0.0-0.1) 03/31/22 08:00 Seg Neutrophils % 85.9 % (40.0-70.0) H 03/31/22 08:00 Seg Neutrophils # 13.4 K/mm3 (1.8-7.7) H 03/31/22 08:00 Sodium 142 mmol/L (137-145) 04/02/22 04:40 Potassium 4.2 mmol/L (3.6-5.0) 04/03/22 05:05 Chloride 113.9 mmol/L (98-107) H 04/02/22 04:40 Carbon Dioxide 17 mmol/L (22-30) L 04/02/22 04:40 Anion Gap 15 mmol/L 04/02/22 04:40 BUN 21 mg/dL (9-20) H 04/02/22 04:40 Creatinine 2.0 mg/dL (0.8-1.3) H 04/03/22 05:05 Estimated GFR 41 ml/min 04/03/22 05:05 BUN/Creatinine Ratio 10 % 04/02/22 04:40 Glucose 84 mg/dL (75-100) 04/02/22 04:40 Lactic Acid 1.20 mmol/L (0.7-2.0) 03/31/22 08:00 Calcium 8.3 mg/dL (8.4-10.2) L 04/02/22 04:40 Magnesium 1.80 mg/dL (1.7-2.3) 04/03/22 05:05 Total Bilirubin 0.50 mg/dL (0.1-1.2) 03/31/22 08:00 AST 14 units/L (5-40) 03/31/22 08:00 ALT 21 units/L (7-56) 03/31/22 08:00 Alkaline Phosphatase 113 units/L (35-129) 03/31/22 08:00 Total Creatine Kinase 55 units/L (55-170) 03/31/22 08:00 Troponin T 0.138 ng/mL (0.00-0.029) H* 03/31/22 08:00 NT-Pro-B Natriuret Pep 89772 pg/mL (0-900) H 03/31/22 08:00 Total Protein 6.6 g/dL (6.3-8.2) 03/31/22 08:00 Albumin 2.8 g/dL (3.9-5) L 03/31/22 08:00 Albumin/Globulin Ratio 0.7 % 03/31/22 08:00 Triglycerides 76 mg/dL (2-149) 03/31/22 08:00 Cholesterol 109 mg/dL (50-199) 03/31/22 08:00 LDL Cholesterol Direct 55 mg/dL (50-130) 03/31/22 08:00 HDL Cholesterol 38 mg/dL (40-59) L 03/31/22 08:00 Cholesterol/HDL Ratio 2.86 % 03/31/22 08:00 Procalcitonin 0.36 ng/mL (<0.15) 03/31/22 08:00 Urine Color Yellow (Yellow) 04/01/22 05:20 Urine Turbidity Slightly cloudy (Clear) 04/01/22 05:20 Specific [place] (Man) 1.025 (1.003-1.030) 04/01/22 05:20 Ur Protein (Man) 1+ mg/dL (Negative) 04/01/22 05:20 Ur Ketones (Man) Negative (Negative) 04/01/22 05:20 Ur Nitrite (Man) Negative (Negative) 04/01/22 05:20 Urine Bilirubin (Man) Negative (Negative) 04/01/22 05:20 Leukocyte Esterase (Man) Negative (Negative) 04/01/22 05:20 Urine WBC (Auto) 5.0 /HPF (0.0-6.0) 04/01/22 05:20 Urine RBC (Auto) 1.0 /HPF (0.0-6.0) 04/01/22 05:20 Urine Bacteria (Auto) 1+ /HPF (Negative) 04/01/22 05:20 Urine RBC (Manual) Trace (Negative) 04/01/22 05:20 Granular Casts 6 /LPF 04/01/22 05:20 RBC Casts 7 /LPF 04/01/22 05:20 Urine Yeast (Budding) 1+ /HPF 04/01/22 05:20 Random Vancomycin 9.6 ug/mL (0-40.0) 04/02/22 04:40 SARS-CoV-2 (PCR) Negative (Negative) 03/31/22 14:25 Blood Type O POSITIVE 04/02/22 11:45 Antibody Screen Negative 04/02/22 11:45 Crossmatch See Detail 04/02/22 11:45 Microbiology: Microbiology 04/02/22 18:52 Stool Stool Occult Blood (CELESTINA) - Final 04/01/22 05:20 Urine,Catheterized - Straight Catheter Urine Culture - Preliminary Enterococcus Species 03/31/22 08:00 Peripheral/Venous Blood Culture - Preliminary NO GROWTH AFTER 48 HOURS 03/31/22 08:00 Peripheral/Venous Blood Culture - Preliminary NO GROWTH AFTER 48 HOURS Arteaga/IV: Voiding Method Indwelling Catheter Active Medications - Current Medications Current Medications: Generic Name Dose Route Start Last Admin Trade Name Freq PRN Reason Stop Dose Admin Acetaminophen 650 mg 03/31/22 13:31 04/02/22 18:21 Acetaminophen 325 Mg Tab PO 650 mg Q4H PRN Administration Pain MILD(1-3)/Fever >100.5/[place]ILTON Amiodarone HCl 200 mg 03/31/22 22:00 04/03/22 09:04 Amiodarone 200 Mg Tab PO 200 mg BID FRANCESCA Administration Aspirin 81 mg 04/01/22 10:00 04/03/22 09:03 Aspirin 81 Mg Tab Chew PO 81 mg QDAY FRANCESCA Administration Atorvastatin Calcium 40 mg 03/31/22 22:00 04/02/22 21:53 Atorvastatin 40 Mg Tab PO 40 mg QHS FRANCESCA Administration Doxazosin Mesylate 4 mg 04/01/22 10:00 04/03/22 09:04 Doxazosin 4 Mg Tab PO 4 mg QDAY FRANCESCA Administration Famotidine 20 mg 04/01/22 10:00 04/03/22 09:03 Famotidine 20 Mg Tab PO 20 mg DAILY FRANCESCA Administration Cefepime HCl 2 gm in 100 mls @ 200 mls/hr 03/31/22 20:00 04/03/22 09:04 Cefepime/Ns 2 Gm/100 Ml IV 200 mls/hr Q12H FRANCESCA Administration Protocol Vancomycin HCl 1,250 mg/ 275 mls @ 166.667 mls/hr 04/04/22 10:00 Sodium Chloride IV 04/04/22 11:38 ONCE ONE Methotrexate 15 mg 04/07/22 14:00 Methotrexate 2.5 Mg Tab (Dose Weekly Only) PO [facility] Metoprolol Tartrate 100 mg 03/31/22 22:00 04/03/22 09:04 Metoprolol Tartrate 100 Mg Tab PO 100 mg BID FRANCESCA Administration Morphine Sulfate 2 mg 03/31/22 13:31 04/03/22 09:50 Morphine 2 Mg/1 Ml Inj IV 2 mg Q4H PRN Administration Pain, Moderate (4-6) Morphine Sulfate 4 mg 03/31/22 13:31 Morphine 4 Mg/1 Ml Inj IV Q4H PRN Pain , Severe (7-10) Ondansetron HCl 4 mg 03/31/22 13:31 Ondansetron 4 Mg/2 Ml Inj IV Q8H PRN Nausea And Vomiting Quetiapine Fumarate 50 mg 03/31/22 22:00 04/02/22 21:53 Quetiapine 25 Mg Tab PO 50 mg QHS FRANCESCA Administration Sodium Chloride 10 ml 03/31/22 22:00 04/03/22 09:04 Sodium Chloride 0.9% 10 Ml Flush Syringe IV 10 ml BID FRANCESCA Administration Sodium Chloride 10 ml 03/31/22 13:31 04/03/22 00:54 Sodium Chloride 0.9% 10 Ml Flush Syringe IV 10 ml PRN PRN Administration LINE FLUSH Tamsulosin HCl 0.4 mg 04/01/22 10:00 04/03/22 09:03 Tamsulosin 0.4 Mg Cap PO 0.4 mg QDAY FRANCESCA Administration Nutrition/Malnutrition Assess - Dietary Evaluation Nutrition/Malnutrition Findings: Nutrition Notes Start: 04/01/22 10:53 Freq: Status: Active Protocol: Document 04/01/22 10:53 SIM (Rec: 04/01/22 11:00 SIM [email or web address]) Nutrition Notes Need for Assessment generated from: sap portal developer,MST Initial or Follow up Assessment Current Diagnosis CKD(stage I-IV),Coronary Artery Disease,Hypertension, Heart Failure,Hyperlipidemia Other Pertinent Diagnosis Fever, SOB, afib with RVR, NSTEMI, pneu, r/o COVID-19, vascular dementia Current Diet Cardiac Labs/Tests Cr 2 Pertinent Medications Reviewed Height 5 ft 9 in Weight 88.45 kg [place] Body Weight (kg) 72.72 BMI 28.8 Weight Status Overweight Subjective/Other Information Pt screened for malnutrition risk. RN reports pt with poor appetite; 0% meals consumed yesterday. Pt is currently alert and oriented x 2 and missing teeth. Burn Absent Trauma Absent Current % PO Negligible Minimum of two criteria No Energy Intake (non-severe) <75% Estimated Energy Requirement >7 days #1 Nutrition Diagnosis Inadequate protein-energy intake Etiology vascular dementia, SANTINO As Evidenced by Signs and Symptoms pt with poor appetite and consumed 0% of meals yesterday Is patient on ventilator? No Is Patient Ambulatory and/or Out of Bed No REE-([facility]-confined to bed) 1990.124 Calculation Used for Recommendations [facility] Additional Notes Pro needs 0.6-0.8g/k-71g/ day Fluid needs per MD. Nutrition Intervention Change Diet Order: Add mech soft restriction to current diet order Add Supplement/Snack (indicate name/kcal Ensure High Protein BID /protein ) Provides kCal: 320 Provides Protein (gm) 32 Goal #1 PO intake of meals plus ONS to meet at least 75% energy and pro needs Anticipated Discharge Needs: Unable to identify at this time Follow-Up By: 04/05/22 Additional Comments F/U: intakes (meals, ONS), COVID-19 test results
--- NOTE | 2022-04-03 13:31 | XRay Report ---
CHEST 1 VIEW 04/03/2022 11:13 AM INDICATION / CLINICAL INFORMATION: f/u pneumonia. COMPARISON: One view of the chest from 03/31/2022. FINDINGS: SUPPORT DEVICES: None. HEART / MEDIASTINUM: Unchanged cardiomegaly. No new significant abnormality. LUNGS / PLEURA: Left airspace opacities have improved while new airspace opacities are seen throughou t the right lung, mainly along the right lung base. A probable small/moderate left pleural effusion i s again seen. No pneumothorax. ADDITIONAL FINDINGS: No significant additional findings. IMPRESSION: Evolving bilateral pneumonia as above. Signer Name: Brian Marcelo MD Signed: 04/03/2022 1:26 PM Workstation Name: [id number]
--- NOTE | 2022-04-03 14:00 | Progress Note ---
Assessment and Plan Continue current management. - Patient Problems (1) Sepsis Current Visit: Yes Status: Acute (2) PNA (pneumonia) Current Visit: Yes Status: Acute Qualifiers: Pneumonia type: aspiration pneumonia (3) Paroxysmal atrial fibrillation with RVR Current Visit: Yes Status: Acute (4) Acute kidney injury superimposed on chronic kidney disease Current Visit: Yes Status: Acute (5) Cardiomyopathy Current Visit: Yes Status: Chronic (6) NSTEMI (non-ST elevated myocardial infarction) Current Visit: Yes Status: Acute (7) Hypertension Current Visit: Yes Status: Chronic Qualifiers: Hypertension type: primary hypertension Qualified Code(s): I10 - Essential (primary) hypertension (8) Anemia Current Visit: Yes Status: Acute (9) Vascular dementia Current Visit: Yes Status: Chronic Qualifiers: Dementia behavioral disturbance: with behavioral disturbance Qualified Code(s): F01.51 - Vascular dementia with behavioral disturbance Subjective Date of service: 04/03/22 Principal diagnosis: Sepsis Interval history: No new complaint. Objective Vital Signs Last Vital Signs Temp 97.9 F 04/02/22 21:00 Pulse 78 04/02/22 21:00 Resp 20 04/02/22 21:00 BP 115/68 04/02/22 21:00 Pulse Ox 97 04/03/22 10:00 - Physical Examination General: No Apparent Distress HEENT: Positive: EOMI, Normocephaly, Mucus Membranes Moist, Mucus Membranes Dry Neck: Positive: neck supple, trachea midline Cardiac: Positive: Reg Rate and Rhythm, irregularly irregular, S1/S2 Lungs: Positive: clear to auscultation Neuro: Positive: Grossly Intact Abdomen: Positive: Soft, Active Bowel Sounds. Negative: Tender Skin: Negative: Rash Musculoskeletal: No Fluid Collection Extremities: Absent: edema - Labs and Meds CBC 04/03/22 Range/Units 05:05 Hgb 7.2 L (11.8-15.2) gm/dl Hct 22.3 L (35.5-45.6) % Comprehensive Metabolic Panel 04/03/22 Range/Units 05:05 Potassium 4.2 (3.6-5.0) mmol/L Creatinine 2.0 H (0.8-1.3) mg/dL - Telemetry EKG Rhythm: Atrial Fibrillation - EKG Sinus rhythms and dysrhythmias: sinus tachycardia Chamber hypertrophy or enlargement: left ventricular hypertro
[2022-04-03] MEDS: QUEtiapine 25 MG TAB PO SCH (21:26)
--- NOTE | 2022-04-04 08:52 | Progress Note ---
Assessment and Plan Assessment and plan: 67-year-old male patient with significant past medical history of coronary artery disease, atrial fibrillation, chronic kidney disease, hypertension, vascular dementia recently admitted for non-ST elevation [place] presented to the emergency room with fever and shortness of breath of 3 days duration. Patient's T-max this morning was 102.8Initial work-up in the ED is consistent with leukocytosis, A. fib with rapid ventricular rate, uncontrolled blood pressures and mild confusion patient unable to give proper history. Chest x-ray findings consistent with left upper lobe infiltrate/pneumonia cardiomegaly mild pleural effusion on the left side Assessment and plan: --Anemia; Hb 6.8-7.2 Received 1 unit of PRBC today, Eliquis held Hb today 7.2, closely monitor transfuse additional PRBC as needed Stool for occult blood is positive GI; evaluated the patient, as patient is septic No plans of endoscopy at this point Continue supportive care -- A. fib with rapid ventricular rate; rate controlled Continue amiodarone, metoprolol Eliquis held due to anemia, heme positive stool, GI consult Cardiology evaluation noted and appreciated Follow-up stool for occult blood -- Acute on chronic systolic congestive heart failure; LVEF 25 to 30% Diuretics, beta-blockers, no NATALYA inhibitors in view of acute kidney injury Input output monitoring, fluid restriction, supportive care --Non-ST elevation NJ; probably type II Serial cardiac enzymes, serial EKG However patient has multiple risk factors Resume home cardiac medications Cardiology consulted -- Febrile illness; PUI/COVID-19 negative Negative COVID test Persistent fever probably due to UTI/hospital-acquired pneumonia Isolation, elizondo PCR test, supportive care -- Pneumonia; hospital-acquired pneumonia Empiric antibiotics Vanco cefepime[completed 5 days] Blood cultures negative to date --Urinary tract infection; present on admission Cultures positive for VRE , contact isolation Zyvox 600 mg IV every 12 hours ID consulted -- Sepsis; due to urinary tract infection, hospital-acquired pneumonia Completed 5 days of cefepime and Vanco - Metabolic encephalopathy/dementia Supportive care, treat the underlying cause -- Chronic kidney disease; Closely monitor renal function, avoid nephrotoxin Nephrology consult --Severe protein calorie malnutrition; Nutrition supplements, supportive care Nutrition consult --Severe hypoalbuminemia; albumin 2.8 Nutrition supplements, supportive care -- Nicotine dependence; Smoking cessation counseling Nicotine patch as needed --Full CODE STATUS -- DVT prophylaxis; Patient is on Eliquis --Advance care planning; 30 minutes I discussed with patient's brother Mr. Alfonzo Johnson at [phone] discussed in detail patient's condition, I discussed patient's tests and reports, I d iscussed consultants evaluation and recommendation findings, I discussed the treatment plan, I discussed the diagnosis, I discussed patient's prognosis, I also discussed the discharge planning and the advanced directives.Mr. Santana Mejía had many questions, I answered all of them He verbalized understanding and appreciative of my call. -- Preventative health care counseling; +32 minutes I discussed with the family the compliance with medications, I discussed the fall precautions I discussed the need for physical therapy occupational therapy, I discussed the possible placement options and he is medically stable Mr. Alfonzo Johnson verbalized understanding, answered all his questions We will closely monitor the patient and adjust management as needed Plan of care reviewed with the patient and his nurse Follow cardiology evaluation recommendations 04/01/2020; patient is febrile, mild distress, on Vanco and cefepime, follow cultures 04/02; patient's hemoglobin dropped to 6.8, 1 unit PRBC transfusion, Eliquis held, follow stool guaiac Cardiology recommendations noted and appreciated 04/03; received 1 unit PRBC yesterday, Hb today 7.2, closely monitor 04/04; patient completed 5 days of Vanco and cefepime for HCAP Urine cultures positive for VRE, add Zyvox 600 mg IV every 12 Contact isolation, ID consulted Disposition; follow clinically follow consultants recommendation, discharge when stable History Interval history: I have seen and examined the patient at the bedside Patient's chart and medications reviewed Patient feels slightly better Complains of generalized weakness Vital signs noted Hospitalist Physical - Constitutional Vitals: Temp Pulse Resp BP Pulse Ox 98.3 F 88 20 141/82 97 04/03/22 20:44 04/03/22 20:44 04/03/22 22:00 04/03/22 20:44 04/03/22 22:00 General appearance: Present: no acute distress, well-nourished, other (Looks tired) - EENT Eyes: Present: PERRL, EOM intact - Neck Neck: Present: supple, normal ROM - Respiratory Respiratory effort: normal Respiratory: bilateral: diminished, negative: rales, rhonchi, wheezing - Cardiovascular Rhythm: regular Heart Sounds: Present: S1 & S2 - Extremities Extremities: no ischemia, No edema - Abdominal General gastrointestinal: soft, non-tender, non-distended, normal bowel sounds - Integumentary Integumentary: Present: clear, warm - Psychiatric Psychiatric: appropriate mood/affect, cooperative - Neurologic Neurologic: CNII-XII intact, moves all extremities HEART Score - HEART Score Troponin: Troponin T 0.135 ng/mL (0.00-0.029) H* 04/03/22 12:29 Results - Labs CBC & Chem 7: 04/04/22 11:38 04/04/22 11:38 Labs: Laboratory Last Values WBC 10.2 K/mm3 (4.5-11.0) 04/02/22 04:40 RBC 2.59 M/mm3 (3.65-5.03) L 04/02/22 04:40 Hgb 7.2 gm/dl (11.8-15.2) L 04/03/22 05:05 Hct 22.3 % (35.5-45.6) L 04/03/22 05:05 MCV 80 fl (84-94) L 04/02/22 04:40 MCH 26 pg (28-32) L 04/02/22 04:40 MCHC 33 % (32-34) 04/02/22 04:40 RDW 19.0 % (13.2-15.2) H 04/02/22 04:40 Plt Count 237 K/mm3 (140-440) 04/02/22 04:40 Lymph % (Auto) 4.2 % (13.4-35.0) L 03/31/22 08:00 Rabun % (Auto) 6.3 % (0.0-7.3) 03/31/22 08:00 Eos % (Auto) 3.0 % (0.0-4.3) 03/31/22 08:00 Baso % (Auto) 0.6 % (0.0-1.8) 03/31/22 08:00 Lymph # (Auto) 0.7 K/mm3 (1.2-5.4) L 03/31/22 08:00 Rabun # (Auto) 1.0 K/mm3 (0.0-0.8) H 03/31/22 08:00 Eos # (Auto) 0.5 K/mm3 (0.0-0.4) H 03/31/22 08:00 Baso # (Auto) 0.1 K/mm3 (0.0-0.1) 03/31/22 08:00 Seg Neutrophils % 85.9 % (40.0-70.0) H 03/31/22 08:00 Seg Neutrophils # 13.4 K/mm3 (1.8-7.7) H 03/31/22 08:00 Sodium 142 mmol/L (137-145) 04/02/22 04:40 Potassium 4.2 mmol/L (3.6-5.0) 04/03/22 05:05 Chloride 113.9 mmol/L (98-107) H 04/02/22 04:40 Carbon Dioxide 17 mmol/L (22-30) L 04/02/22 04:40 Anion Gap 15 mmol/L 04/02/22 04:40 BUN 21 mg/dL (9-20) H 04/02/22 04:40 Creatinine 2.0 mg/dL (0.8-1.3) H 04/03/22 05:05 Estimated GFR 41 ml/min 04/03/22 05:05 BUN/Creatinine Ratio 10 % 04/02/22 04:40 Glucose 84 mg/dL (75-100) 04/02/22 04:40 Lactic Acid 1.20 mmol/L (0.7-2.0) 03/31/22 08:00 Calcium 8.3 mg/dL (8.4-10.2) L 04/02/22 04:40 Magnesium 1.80 mg/dL (1.7-2.3) 04/03/22 05:05 Total Bilirubin 0.50 mg/dL (0.1-1.2) 03/31/22 08:00 AST 14 units/L (5-40) 03/31/22 08:00 ALT 21 units/L (7-56) 03/31/22 08:00 Alkaline Phosphatase 113 units/L (35-129) 03/31/22 08:00 Total Creatine Kinase 55 units/L (55-170) 03/31/22 08:00 Troponin T 0.135 ng/mL (0.00-0.029) H* 04/03/22 12:29 NT-Pro-B Natriuret Pep 06354 pg/mL (0-900) H 03/31/22 08:00 Total Protein 6.6 g/dL (6.3-8.2) 03/31/22 08:00 Albumin 2.8 g/dL (3.9-5) L 03/31/22 08:00 Albumin/Globulin Ratio 0.7 % 03/31/22 08:00 Triglycerides 76 mg/dL (2-149) 03/31/22 08:00 Cholesterol 109 mg/dL (50-199) 03/31/22 08:00 LDL Cholesterol Direct 55 mg/dL (50-130) 03/31/22 08:00 HDL Cholesterol 38 mg/dL (40-59) L 03/31/22 08:00 Cholesterol/HDL Ratio 2.86 % 03/31/22 08:00 Procalcitonin 0.36 ng/mL (<0.15) 03/31/22 08:00 Urine Color Yellow (Yellow) 04/01/22 05:20 Urine Turbidity Slightly cloudy (Clear) 04/01/22 05:20 Specific [place] (Man) 1.025 (1.003-1.030) 04/01/22 05:20 Ur Protein (Man) 1+ mg/dL (Negative) 04/01/22 05:20 Ur Ketones (Man) Negative (Negative) 04/01/22 05:20 Ur Nitrite (Man) Negative (Negative) 04/01/22 05:20 Urine Bilirubin (Man) Negative (Negative) 04/01/22 05:20 Leukocyte Esterase (Man) Negative (Negative) 04/01/22 05:20 Urine WBC (Auto) 5.0 /HPF (0.0-6.0) 04/01/22 05:20 Urine RBC (Auto) 1.0 /HPF (0.0-6.0) 04/01/22 05:20 Urine Bacteria (Auto) 1+ /HPF (Negative) 04/01/22 05:20 Urine RBC (Manual) Trace (Negative) 04/01/22 05:20 Granular Casts 6 /LPF 04/01/22 05:20 RBC Casts 7 /LPF 04/01/22 05:20 Urine Yeast (Budding) 1+ /HPF 04/01/22 05:20 Random Vancomycin 9.6 ug/mL (0-40.0) 04/02/22 04:40 SARS-CoV-2 (PCR) Negative (Negative) 03/31/22 14:25 Blood Type O POSITIVE 04/02/22 11:45 Antibody Screen Negative 04/02/22 11:45 Crossmatch See Detail 04/02/22 11:45 Microbiology: Microbiology 04/01/22 05:20 Urine,Catheterized - Straight Catheter Urine Culture - Preliminary Enterococcus Faecium 03/31/22 08:00 Peripheral/Venous Blood Culture - Preliminary NO GROWTH AFTER 72 HOURS 03/31/22 08:00 Peripheral/Venous Blood Culture - Preliminary NO GROWTH AFTER 72 HOURS Arteaga/IV: Voiding Method Incontinent Active Medications - Current Medications Current Medications: Generic Name Dose Route Start Last Admin Trade Name Freq PRN Reason Stop Dose Admin Acetaminophen 650 mg 03/31/22 13:31 04/02/22 18:21 Acetaminophen 325 Mg Tab PO 650 mg Q4H PRN Administration Pain MILD(1-3)/Fever >100.5/HILTON Amiodarone HCl 200 mg 03/31/22 22:00 04/03/22 21:27 Amiodarone 200 Mg Tab PO 200 mg BID FRANCESCA Administration Aspirin 81 mg 04/01/22 10:00 04/03/22 09:03 Aspirin 81 Mg Tab Chew PO 81 mg QDAY FRANCESCA Administration Atorvastatin Calcium 40 mg 03/31/22 22:00 04/03/22 21:26 Atorvastatin 40 Mg Tab PO 40 mg QHS FRANCESCA Administration Doxazosin Mesylate 4 mg 04/01/22 10:00 04/03/22 09:04 Doxazosin 4 Mg Tab PO 4 mg QDAY FRANCESCA Administration Famotidine 20 mg 04/01/22 10:00 04/03/22 09:03 Famotidine 20 Mg Tab PO 20 mg DAILY FRANCESCA Administration Cefepime HCl 2 gm in 100 mls @ 200 mls/hr 03/31/22 20:00 04/03/22 21:25 Cefepime/Ns 2 Gm/100 Ml IV 200 mls/hr Q12H FRANCESCA Administration Protocol Vancomycin HCl 1,250 mg/ 275 mls @ 166.667 mls/hr 04/04/22 10:00 Sodium Chloride IV 04/04/22 11:38 ONCE ONE Methotrexate 15 mg 04/07/22 14:00 Methotrexate 2.5 Mg Tab (Dose Weekly Only) PO Th FRANCESCA Metoprolol Tartrate 100 mg 03/31/22 22:00 04/03/22 21:28 Metoprolol Tartrate 100 Mg Tab PO 100 mg BID FRANCESCA Administration Morphine Sulfate 2 mg 03/31/22 13:31 04/03/22 09:50 Morphine 2 Mg/1 Ml Inj IV 2 mg Q4H PRN Administration Pain, Moderate (4-6) Morphine Sulfate 4 mg 03/31/22 13:31 Morphine 4 Mg/1 Ml Inj IV Q4H PRN Pain , Severe (7-10) Ondansetron HCl 4 mg 03/31/22 13:31 Ondansetron 4 Mg/2 Ml Inj IV Q8H PRN Nausea And Vomiting Quetiapine Fumarate 50 mg 03/31/22 22:00 04/03/22 21:26 Quetiapine 25 Mg Tab PO 50 mg QHS FRANCESCA Administration Sodium Chloride 10 ml 03/31/22 22:00 04/03/22 21:26 Sodium Chloride 0.9% 10 Ml Flush Syringe IV 10 ml BID FRANCESCA Administration Sodium Chloride 10 ml 03/31/22 13:31 04/03/22 00:54 Sodium Chloride 0.9% 10 Ml Flush Syringe IV 10 ml PRN PRN Administration LINE FLUSH Tamsulosin HCl 0.4 mg 04/01/22 10:00 04/03/22 09:03 Tamsulosin 0.4 Mg Cap PO 0.4 mg QDAY FRANCESCA Administration Nutrition/Malnutrition Assess - Dietary Evaluation Nutrition/Malnutrition Findings: Nutrition Notes Start: 04/01/22 10:53 Freq: Status: Active Protocol: Document 04/01/22 10:53 SIM (Rec: 04/01/22 11:00 SIM [id number]) Nutrition Notes Need for Assessment generated from: chemical educator,MST Initial or Follow up Assessment Current Diagnosis CKD(stage I-IV),Coronary Artery Disease,Hypertension, Heart Failure,Hyperlipidemia Other Pertinent Diagnosis Fever, SOB, afib with RVR, NSTEMI, pneu, r/o COVID-19, vascular dementia Current Diet Cardiac Labs/Tests Cr 2 Pertinent Medications Reviewed Height 5 ft 9 in Weight 88.45 kg [place] Body Weight (kg) 72.72 BMI 28.8 Weight Status Overweight Subjective/Other Information Pt screened for malnutrition risk. RN reports pt with poor appetite; 0% meals consumed yesterday. Pt is currently alert and oriented x 2 and missing teeth. Burn Absent Trauma Absent Current % PO Negligible Minimum of two criteria No Energy Intake (non-severe) <75% Estimated Energy Requirement >7 days #1 Nutrition Diagnosis Inadequate protein-energy intake Etiology vascular dementia, SANTINO As Evidenced by Signs and Symptoms pt with poor appetite and consumed 0% of meals yesterday Is patient on ventilator? No Is Patient Ambulatory and/or Out of Bed No REE-([facility]-confined to bed) 1990.124 Calculation Used for Recommendations [facility] Additional Notes Pro needs 0.6-0.8g/k-71g/ day Fluid needs per MD. Nutrition Intervention Change Diet Order: Add mech soft restriction to current diet order Add Supplement/Snack (indicate name/kcal Ensure High Protein BID /protein ) Provides kCal: 320 Provides Protein (gm) 32 Goal #1 PO intake of meals plus ONS to meet at least 75% energy and pro needs Anticipated Discharge Needs: Unable to identify at this time Follow-Up By: 04/05/22 Additional Comments F/U: intakes (meals, ONS), COVID-19 test results
[2022-04-04] MEDS: CEFEPIME/NS 2 GM/100 ML 2 GM/100 ML BAG IV SCH ×2 (09:55→20:34)
[2022-04-04] MEDS ORDERED: VANCOMYCIN 1,250 MG in SODIUM CHLORIDE 0.9% 250ML 250 ML IV ONE (10:00)
--- NOTE | 2022-04-04 10:04 | Gastroenterology Consultation ---
<CON DEL CID - Last Filed: 04/04/22 11:29> History of Present Illness - Reason for Consult Consult date: 04/04/22 - History of Present Illness Ms. Johnson is a 67 y/o M who GI has been consulted on for heme+ stool and anemia. Pt opens eyes to name, but does not respond to questions. No family present at bedside to assist w/ hx. D/t pt's mental status, hx obtained from chart. Hx of vascular dementia, gastric bypass, renal insufficiency, HTN, a fib; was recently discharged from the hospital on 03/24 (was here for NSTEMI, a fib w/ RVR, and MARIE). Per nurse, no reports of overt GI bleeding (hematochezia, hematemesis, coffee ground emesis or melena). Unknown if pts struggles with anemia or if this is a new diagnosis, unknown if prior endoscopic workup has been performed. Past History Past Medical History: atrial fib, CAD, heart failure, hypertension, hyperlipidemia, other (Dementia, BPH, cardiomyopathy) Past Surgical History: No surgical history Social history: smoking (History of tobacco use). denies: alcohol abuse, prescription drug abuse Family history: no significant family history Medications and Allergies Allergies Allergy/AdvReac Type Severity Reaction Status Date / Time lisinopril Allergy Hives Verified 03/31/22 07:48 Home Medications Medication Instructions Recorded Confirmed Last Taken Type Tamsulosin [Flomax] 0.4 mg PO QDAY #7 cap 08/28/15 03/16/22 Unknown Rx AtorvaSTATin [Lipitor] 40 mg PO QHS 03/11/22 03/16/22 Unknown History metHOTREXate sodium [Methotrexate] 15 mg PO 1XW 03/11/22 03/16/22 Unknown History predniSONE 10 mg PO BID 03/16/22 03/16/22 Unknown History Amiodarone [Cordarone 200 MG TAB] 200 mg PO BID tablet 03/23/22 Unknown Rx Apixaban [Eliquis] 5 mg PO Q12HR tablet 03/23/22 Unknown Rx Aspirin [Aspirin BABY CHEW TAB] 81 mg PO QDAY tab.chew 03/23/22 Unknown Rx Doxazosin [Cardura] 4 mg PO QDAY tablet 03/23/22 Unknown Rx Famotidine [Pepcid] 20 mg PO DAILY tablet 03/23/22 Unknown Rx Metoprolol [Lopressor TAB] 100 mg PO BID tablet 03/23/22 Unknown Rx Nicotine [Habitrol] 21 mg TD QDAY patch 03/23/22 Unknown Rx QUEtiapine [SEROquel] 50 mg PO QHS tablet 03/23/22 Unknown Rx amLODIPine 10 mg PO DAILY #30 tab 03/24/22 Unknown Rx Active Meds: Active Medications Acetaminophen (Acetaminophen 325 Mg Tab) 650 mg PO Q4H PRN PRN Reason: Pain MILD(1-3)/Fever >100.5/HILTON Last Admin: 04/02/22 18:21 Dose: 650 mg Amiodarone HCl (Amiodarone 200 Mg Tab) 200 mg PO BID [facility] Last Admin: 04/03/22 21:27 Dose: 200 mg Aspirin (Aspirin 81 Mg Tab Chew) 81 mg PO QDAY [facility] Last Admin: 04/03/22 09:03 Dose: 81 mg Atorvastatin Calcium (Atorvastatin 40 Mg Tab) 40 mg PO QHS [facility] Last Admin: 04/03/22 21:26 Dose: 40 mg Doxazosin Mesylate (Doxazosin 4 Mg Tab) 4 mg PO QDAY [facility] Last Admin: 04/03/22 09:04 Dose: 4 mg Famotidine (Famotidine 20 Mg Tab) 20 mg PO DAILY [facility] Last Admin: 04/03/22 09:03 Dose: 20 mg Cefepime HCl (Cefepime/Ns 2 Gm/100 Ml) 2 gm in 100 mls @ 200 mls/hr IV Q12H [facility]; Protocol Last Admin: 04/04/22 09:55 Dose: 200 mls/hr Vancomycin HCl 1,250 mg/ (Sodium Chloride) 275 mls @ 166.667 mls/hr IV ONCE ONE Stop: 04/04/22 11:38 Methotrexate (Methotrexate 2.5 Mg Tab (Dose Weekly Only)) 15 mg PO [facility] Metoprolol Tartrate (Metoprolol Tartrate 100 Mg Tab) 100 mg PO BID [facility] Last Admin: 04/03/22 21:28 Dose: 100 mg Morphine Sulfate (Morphine 2 Mg/1 Ml Inj) 2 mg IV Q4H PRN PRN Reason: Pain, Moderate (4-6) Last Admin: 04/03/22 09:50 Dose: 2 mg Morphine Sulfate (Morphine 4 Mg/1 Ml Inj) 4 mg IV Q4H PRN PRN Reason: Pain , Severe (7-10) Ondansetron HCl (Ondansetron 4 Mg/2 Ml Inj) 4 mg IV Q8H PRN PRN Reason: Nausea And Vomiting Quetiapine Fumarate (Quetiapine 25 Mg Tab) 50 mg PO QHS [facility] Last Admin: 04/03/22 21:26 Dose: 50 mg Sodium Chloride (Sodium Chloride 0.9% 10 Ml Flush Syringe) 10 ml IV BID [facility] Last Admin: 04/04/22 09:57 Dose: 10 ml Sodium Chloride (Sodium Chloride 0.9% 10 Ml Flush Syringe) 10 ml IV PRN PRN PRN Reason: LINE FLUSH Last Admin: 04/03/22 00:54 Dose: 10 ml Tamsulosin HCl (Tamsulosin 0.4 Mg Cap) 0.4 mg PO QDAY [facility] Last Admin: 04/03/22 09:03 Dose: 0.4 mg Review of Systems - Review of Systems ROS unobtainable: due to mental status Exam - Constitutional Vital Signs: Temp Pulse Resp BP Pulse Ox 98.3 F 88 20 141/82 97 04/03/22 20:44 04/03/22 20:44 04/03/22 22:00 04/03/22 20:44 04/03/22 22:00 General appearance: no acute distress - Gastrointestinal General gastrointestinal: Present: soft, non-tender, non-distended - Labs CBC & Chem 7: 04/03/22 05:05 04/03/22 05:05 Lab Results: Laboratory Results - last 24 hr 04/03/22 12:29 Troponin T 0.135 H* Assessment and Plan 1. Anemia - hemoglobin: 7.2 from 6.8 - continue to monitor hemoglobin and transfuse to maintain >7 - heme + stool - continue Pepcid, would add PPI as well - avoid NSAIDS/blood thinners if possible - recommend EGD/colonoscopy, but will need consent from family before proceeding <ROSALINDA LUBIN - Last Filed: 04/04/22 18:04> History of Present Illness - Reason for Consult anemia, heme positive stool Requesting physician: COLTON LEE Medications and Allergies Active Meds: Active Medications Acetaminophen (Acetaminophen 325 Mg Tab) 650 mg PO Q4H PRN PRN Reason: Pain MILD(1-3)/Fever >100.5/[place] Last Admin: 04/02/22 18:21 Dose: 650 mg Amiodarone HCl (Amiodarone 200 Mg Tab) 200 mg PO BID [facility] Last Admin: 04/04/22 11:23 Dose: 200 mg Aspirin (Aspirin 81 Mg Tab Chew) 81 mg PO QDAY [facility] Last Admin: 04/04/22 11:22 Dose: 81 mg Atorvastatin Calcium (Atorvastatin 40 Mg Tab) 40 mg PO QHS [facility] Last Admin: 04/03/22 21:26 Dose: 40 mg Doxazosin Mesylate (Doxazosin 4 Mg Tab) 4 mg PO QDAY [facility] Last Admin: 04/04/22 11:24 Dose: 4 mg Famotidine (Famotidine 20 Mg Tab) 20 mg PO DAILY [facility] Last Admin: 04/04/22 11:23 Dose: 20 mg Cefepime HCl (Cefepime/Ns 2 Gm/100 Ml) 2 gm in 100 mls @ 200 mls/hr IV Q12H [facility]; Protocol Last Admin: 04/04/22 09:55 Dose: 200 mls/hr Methotrexate (Methotrexate 2.5 Mg Tab (Dose Weekly Only)) 15 mg PO [facility] Metoprolol Tartrate (Metoprolol Tartrate 100 Mg Tab) 100 mg PO BID [facility] Last Admin: 04/04/22 11:23 Dose: 100 mg Morphine Sulfate (Morphine 2 Mg/1 Ml Inj) 2 mg IV Q4H PRN PRN Reason: Pain, Moderate (4-6) Last Admin: 04/03/22 09:50 Dose: 2 mg Morphine Sulfate (Morphine 4 Mg/1 Ml Inj) 4 mg IV Q4H PRN PRN Reason: Pain , Severe (7-10) Ondansetron HCl (Ondansetron 4 Mg/2 Ml Inj) 4 mg IV Q8H PRN PRN Reason: Nausea And Vomiting Quetiapine Fumarate (Quetiapine 25 Mg Tab) 50 mg PO QHS [facility] Last Admin: 04/03/22 21:26 Dose: 50 mg Sodium Chloride (Sodium Chloride 0.9% 10 Ml Flush Syringe) 10 ml IV BID [facility] Last Admin: 04/04/22 09:57 Dose: 10 ml Sodium Chloride (Sodium Chloride 0.9% 10 Ml Flush Syringe) 10 ml IV PRN PRN PRN Reason: LINE FLUSH Last Admin: 04/03/22 00:54 Dose: 10 ml Tamsulosin HCl (Tamsulosin 0.4 Mg Cap) 0.4 mg PO QDAY FRANCESCA Last Admin: 04/04/22 11:23 Dose: 0.4 mg Reviewed/updated patient's home and current medications Exam - Constitutional Vital Signs: Temp Pulse Resp BP Pulse Ox 98.3 F 98 H 20 142/76 97 04/03/22 20:44 04/04/22 11:23 04/03/22 22:00 04/04/22 11:23 04/03/22 22:00 - Labs CBC & Chem 7: 04/04/22 11:38 04/04/22 11:38 Lab Results: Laboratory Results - last 24 hr 04/04/22 04/04/22 11:38 11:38 Hgb 7.4 L Hct 23.3 L Sodium 142 Potassium 4.4 Chloride 115.6 H Carbon Dioxide 17 L Anion Gap 14 BUN 24 H Creatinine 2.3 H Estimated GFR 35 BUN/Creatinine Ratio 10 Glucose 67 L Calcium 9.1 Assessment and Plan Patient seen and examined. I spent over 50% of time on management and care of the patient. Agree with note above. heme positive stool without overt gi bleeding but has had drop in H/H with AC. multiple co-morbidities, and sepsis and given mentation, would be challenging to prep for gi work-up. recommend conservative management from gi stant point, and would reserve endoscopy for overt gi bleeding or improved mentation to proceed with work-up. will start PPI for pud ppx
--- NOTE | 2022-04-04 10:45 | Progress Note ---
Assessment and Plan Patient is a 67-year-old male with a past medical history of cardiomyopathy (EF 25 to 30%), A. fib, CKD, hypertension, and dementia who was brought to the ED by EMS for fever and SOB x3 days. Sepsis PNA NSTEMI suspect type II MARIE on CKD Cardiomyopathy A. fib Hypertension GI bleed?-GI bilateral Anemia Vascular dementia Echo 03/09/2022-EF 25 to 30%. Severe global hypokinesis of left ventricle. Moderate concentric LVH. Mild diastolic dysfunction is present impaired relaxation pattern. Moderate aortic regurgitation. No pericardial effusion Plan: Troponins noted to be elevated however suspect NSTEMI type II in setting of sepsis and MARIE on CKD Recommend conservative cardiac mgmt recommended in light of patient's mental status Telemetry reviewed :patient is A. fib heart rate 80s to 90s Continue Amio 200mg PO BID, metoprolol 100mg PO BID, aspirin, and statin If patient converts back to A. fib with RVR with rate in 130s or higher okay to initiate IV amiodarone bolus and drip Patient H&H noted to drop requiring blood transfusion after being on Eliquis will hold anticoagulation Patient does not appear to be a candidate for anticoagulation Will hold NATALYA and ARB due to elevated creatinine and documented allergy At this time no cardiac contraindications to GI intervention for possible EGD/colonoscopy Patient seen in conjunction with Dr. Anaya who agrees with this plan of care - Patient Problems (1) Sepsis Current Visit: Yes Status: Acute (2) MARIE (acute kidney injury) Current Visit: No Status: Acute (3) Anemia Current Visit: Yes Status: Acute (4) CKD (chronic kidney disease) Current Visit: No Status: Acute (5) Cardiomyopathy Current Visit: Yes Status: Chronic (6) Elevated troponin Current Visit: No Status: Acute (7) PNA (pneumonia) Current Visit: Yes Status: Acute Qualifiers: Pneumonia type: aspiration pneumonia (8) Vascular dementia Current Visit: Yes Status: Chronic Qualifiers: Dementia behavioral disturbance: with behavioral disturbance Qualified Code(s): F01.51 - Vascular dementia with behavioral disturbance Subjective Date of service: 04/04/22 Principal diagnosis: Sepsis Interval history: Patient resting in bed in no acute distress. Afib 80s to 90s on monitor Objective Vital Signs Temp Pulse Resp BP BP Pulse Ox 04/03/22 22:00 20 97 04/03/22 20:44 98.3 F 88 16 141/82 98 04/03/22 17:00 99 F 74 H 130/71 - Physical Examination General: No Apparent Distress HEENT: Positive: EOMI, Normocephaly, Mucus Membranes Moist, Mucus Membranes Dry Neck: Positive: neck supple, trachea midline Cardiac: Positive: irregularly irregular Lungs: Positive: Normal Breath Sounds Neuro: Positive: Grossly Intact Abdomen: Positive: Soft, Active Bowel Sounds. Negative: Tender Skin: Negative: Rash Musculoskeletal: No Fluid Collection Extremities: Present: upper extr. pulses. Absent: edema - Imaging and Cardiology Echo: report reviewed - Telemetry EKG Rhythm: Atrial Fibrillation - EKG Supraventricular dysrhythmia: atrial fibrillation Chamber hypertrophy or enlargement: left ventricular hypertro
[2022-04-04] MEDS: ASPIRIN 81 MG TAB CHEW PO SCH (11:22)
[2022-04-04] MEDS: FAMOTIDINE 20 MG TAB PO SCH (11:23)
[2022-04-04] MEDS: METOPROLOL TARTRATE 100 MG TAB PO SCH ×2 (11:23→21:10)
[2022-04-04] MEDS: TAMSULOSIN 0.4 MG CAP PO SCH (11:23)
[2022-04-04] MEDS: AMIODARONE 200 MG TAB PO SCH ×2 (11:23→21:12)
[2022-04-04] MEDS: DOXAZOSIN 4 MG TAB PO SCH (11:24)
[2022-04-04 11:56] LABS: Hematocrit 23.3 % (35.5-45.6); Hemoglobin 7.4 gm/dl (11.8-15.2)
[2022-04-04 12:34] LABS: Calcium 9.1 mg/dL (8.4-10.2)
[2022-04-04] MEDS: ACETAMINOPHEN 325 MG TAB PO PRN (21:10)
[2022-04-04] MEDS: QUEtiapine 25 MG TAB PO SCH (21:12)
[2022-04-04] MEDS: PANTOPRAZOLE 40 MG INJ IV SCH (21:13)
[2022-04-04] MEDS: LINEZOLID 600 MG/300 ML BAG IV SCH (21:25)
--- NOTE | 2022-04-05 03:49 | Event Note ---
Date: 04/04/22 Lab /nurse reported that patient has VRE UTI [vancomycin-resistant Enterococcus] positive urine cultures. Patient placed on contact isolation, started Zyvox 600 mg twice a day, ID consulted. Informed Dr. Greco.
[2022-04-05 05:40] LABS: Basophils # (Auto) 0.1 K/mm3 (0.0-0.1); Basophils % (Auto) 0.7 % (0.0-1.8); Eosinophils # (Auto) 0.5 K/mm3 (0.0-0.4); Eosinophils % (Auto) 6.6 % (0.0-4.3); Hematocrit 22.4 % (35.5-45.6); Hemoglobin 7.3 gm/dl (11.8-15.2); Lymphocytes # (Auto) 1.1 K/mm3 (1.2-5.4); Lymphocytes % (Auto) 13.2 % (13.4-35.0); Mean Corpuscular HGB Conc 33 % (32-34); Mean Corpuscular Volume 82 fl (84-94); Monocytes # (Auto) 0.8 K/mm3 (0.0-0.8); Monocytes % (Auto) 10.1 % (0.0-7.3); Platelet Count 258 K/mm3 (140-440); Red Blood Count 2.72 M/mm3 (3.65-5.03)
[2022-04-05 05:43] LABS: Red Cell Distribution Width 20.5 % (13.2-15.2)
[2022-04-05 05:52] LABS: Calcium 8.8 mg/dL (8.4-10.2)
[2022-04-05 06:52] LABS: Anisocytosis 1+; Band Neutrophils # (Manual) 0.1 K/mm3; Basophils % (Manual) 0 % (0.0-1.8); Ovalocytes 1+; Total Cells Counted 100
[2022-04-05 06:54] LABS: Burr Cells Few; Platelet Estimate Consistent w Auto; Poikilocytosis 1+; Spherocytes 1+; Target Cells Few
[2022-04-05] MEDS: PANTOPRAZOLE 40 MG INJ IV SCH ×2 (11:18→21:37)
[2022-04-05] MEDS: CEFEPIME/NS 2 GM/100 ML 2 GM/100 ML BAG IV SCH (11:18)
--- NOTE | 2022-04-05 11:18 | Consultation ---
History of Present Illness - Reason for Consult Consult date: 04/05/22 acute renal failure, chronic renal failure - History of Present Illness The patient is a 67 YO male with history of HTN, BPH, Cardiomyopathy (EF 25 to 30%), A. fib, Dementia, Cerebral Atherosclerosis, Nicotine Dependence and CKD who presented to [facility] ED 03/31/22 with fever and sob. Patient is confused at the time my evaluation is unable to provide history and there was no family member at the bedside. Patient is being treated for sepsis, UTI, PNA and CHF. Labs notable for Creat 2.3, BUN 26 and bicarb 17. Imaging results noted. Nephrology consulted for further evaluation and treatment of MARIE. Past History Past Medical History: atrial fib, CAD, heart failure, hypertension, hyperlipidemia, renal failure, other (Dementia, BPH, cardiomyopathy) Past Surgical History: No surgical history Social history: smoking (History of tobacco use). denies: alcohol abuse, prescription drug abuse Family history: no significant family history Medications and Allergies Allergies Allergy/AdvReac Type Severity Reaction Status Date / Time lisinopril Allergy Hives Verified 03/31/22 07:48 Home Medications Medication Instructions Recorded Confirmed Last Taken Type Tamsulosin [Flomax] 0.4 mg PO QDAY #7 cap 08/28/03/16/22 Unknown Rx AtorvaSTATin [Lipitor] 40 mg PO QHS 03/11/22 03/16/22 Unknown History metHOTREXate sodium [Methotrexate] 15 mg PO 1XW 03/11/22 03/16/22 Unknown History predniSONE 10 mg PO BID 03/16/22 03/16/22 Unknown History Amiodarone [Cordarone 200 MG TAB] 200 mg PO BID tablet 03/23/22 Unknown Rx Apixaban [Eliquis] 5 mg PO Q12HR tablet 03/23/22 Unknown Rx Aspirin [Aspirin BABY CHEW TAB] 81 mg PO QDAY tab.chew 03/23/22 Unknown Rx Doxazosin [Cardura] 4 mg PO QDAY tablet 03/23/22 Unknown Rx Famotidine [Pepcid] 20 mg PO DAILY tablet 03/23/22 Unknown Rx Metoprolol [Lopressor TAB] 100 mg PO BID tablet 03/23/22 Unknown Rx Nicotine [Habitrol] 21 mg TD QDAY patch 03/23/22 Unknown Rx QUEtiapine [SEROquel] 50 mg PO QHS tablet 03/23/22 Unknown Rx amLODIPine 10 mg PO DAILY #30 tab 03/24/22 Unknown Rx Active Meds: Active Medications Acetaminophen (Acetaminophen 325 Mg Tab) 650 mg PO Q4H PRN PRN Reason: Pain MILD(1-3)/Fever >100.5/[place] Last Admin: 04/04/22 21:10 Dose: 650 mg Amiodarone HCl (Amiodarone 200 Mg Tab) 200 mg PO BID COUNTS INCLUDE 234 BEDS AT THE [facility] Last Admin: 04/04/22 21:12 Dose: 200 mg Aspirin (Aspirin 81 Mg Tab Chew) 81 mg PO QDAY COUNTS INCLUDE 234 BEDS AT THE [facility] Last Admin: 04/04/22 11:22 Dose: 81 mg Atorvastatin Calcium (Atorvastatin 40 Mg Tab) 40 mg PO QHS COUNTS INCLUDE 234 BEDS AT THE [facility] Last Admin: 04/04/22 21:11 Dose: 40 mg Doxazosin Mesylate (Doxazosin 4 Mg Tab) 4 mg PO QDAY COUNTS INCLUDE 234 BEDS AT THE [facility] Last Admin: 04/04/22 11:24 Dose: 4 mg Famotidine (Famotidine 20 Mg Tab) 20 mg PO DAILY COUNTS INCLUDE 234 BEDS AT THE [facility] Last Admin: 04/04/22 11:23 Dose: 20 mg Cefepime HCl (Cefepime/Ns 2 Gm/100 Ml) 2 gm in 100 mls @ 200 mls/hr IV Q12H COUNTS INCLUDE 234 BEDS AT THE [facility]; Protocol Last Admin: 04/04/22 20:34 Dose: 200 mls/hr Linezolid (Zyvox 600mg/300ml) 600 mg in 300 mls @ 300 mls/hr IV Q12H COUNTS INCLUDE 234 BEDS AT THE [facility]; Protocol Last Admin: 04/04/22 21:25 Dose: 300 mls/hr Methotrexate (Methotrexate 2.5 Mg Tab (Dose Weekly Only)) 15 mg PO [facility] Metoprolol Tartrate (Metoprolol Tartrate 100 Mg Tab) 100 mg PO BID COUNTS INCLUDE 234 BEDS AT THE [facility] Last Admin: 04/04/22 21:10 Dose: 100 mg Morphine Sulfate (Morphine 2 Mg/1 Ml Inj) 2 mg IV Q4H PRN PRN Reason: Pain, Moderate (4-6) Last Admin: 04/03/22 09:50 Dose: 2 mg Morphine Sulfate (Morphine 4 Mg/1 Ml Inj) 4 mg IV Q4H PRN PRN Reason: Pain , Severe (7-10) Ondansetron HCl (Ondansetron 4 Mg/2 Ml Inj) 4 mg IV Q8H PRN PRN Reason: Nausea And Vomiting Pantoprazole Sodium (Pantoprazole 40 Mg Inj) 40 mg IV BID COUNTS INCLUDE 234 BEDS AT THE [facility] Last Admin: 04/04/22 21:13 Dose: 40 mg Quetiapine Fumarate (Quetiapine 25 Mg Tab) 50 mg PO QHS COUNTS INCLUDE 234 BEDS AT THE [facility] Last Admin: 04/04/22 21:12 Dose: 50 mg Sodium Chloride (Sodium Chloride 0.9% 10 Ml Flush Syringe) 10 ml IV BID COUNTS INCLUDE 234 BEDS AT THE [facility] Last Admin: 04/04/22 21:13 Dose: 10 ml Sodium Chloride (Sodium Chloride 0.9% 10 Ml Flush Syringe) 10 ml IV PRN PRN PRN Reason: LINE FLUSH Last Admin: 04/03/22 00:54 Dose: 10 ml Tamsulosin HCl (Tamsulosin 0.4 Mg Cap) 0.4 mg PO QDAY COUNTS INCLUDE 234 BEDS AT THE [facility] Last Admin: 04/04/22 11:23 Dose: 0.4 mg Review of Systems ROS unobtainable: due to mental status Exam - Vital Signs Vital signs: Vital Signs Temp Pulse Resp BP Pulse Ox 102.8 F H 128 H 22 186/97 98 03/31/22 07:36 03/31/22 07:36 03/31/22 07:36 03/31/22 07:36 03/31/22 07:36 Results - Lab Results 04/05/22 05:06 04/05/22 05:06 Most recent lab results Calcium 8.8 mg/dL (8.4-10.2) 04/05/22 05:06 Magnesium 2.00 mg/dL (1.7-2.3) 04/05/22 05:06 Assessment and Plan 1. Acute kidney injury: Vasomotor MARIE superimposed on CKD in the setting of sepsis/CHF/A.Fib with RVR. Renal US negative. Monitor renal function. Creatinine leveled off. Avoid nephrotoxic agents. Meds dosage based on GFR. 2. FEN: Hyperchloremic metabolic acidosis, monitor. Replete lytes as needed. Monitor lytes and volume status. 3. A.fib with RVR: Amio and Metoprolol. Followed by Cards. Monitor. 4. Acute on chronic systolic congestive heart failure / Non-STEMI: LVEF 25 to 30%. Beta-blockers. Monitor. Followed by Cards. 5. HCAP / UTI / Sepsis: Antibiotics. Followed by ID. 6. Acute metabolic encephalopathy, POA: H/o Dementia. Monitor. 7. Microcytic Anemia, POA: Heme positive stool. Trend. Followed by GI. Subjective: Patient was seen and examined at the bedside. Examination: General appearance: well-developed, appears stated age, no distress HEENT: atraumatic, no icterus Neck: trachea midline Respiratory: ctab Heart: S1S2, irregular, no murmur Abdomen: soft, bowel sounds heard, NT Integumentary: no obvious rash Neurologic: alert, moving extremities, confused Ext: UE edema : Arteaga catheter
[2022-04-05] MEDS: ASPIRIN 81 MG TAB CHEW PO SCH (11:22)
[2022-04-05] MEDS: TAMSULOSIN 0.4 MG CAP PO SCH (11:24)
[2022-04-05] MEDS: FAMOTIDINE 20 MG TAB PO SCH ×2 (11:24→16:02)
[2022-04-05] MEDS: METOPROLOL TARTRATE 100 MG TAB PO SCH ×2 (11:31→21:37)
[2022-04-05] MEDS: AMIODARONE 200 MG TAB PO SCH ×2 (11:31→21:38)
--- NOTE | 2022-04-05 11:44 | Progress Note ---
Assessment and Plan Patient is a 67-year-old male with a past medical history of cardiomyopathy (EF 25 to 30%), A. fib, CKD, hypertension, and dementia who was brought to the ED by EMS for fever and SOB x3 days. Sepsis PNA VRE-ID following NSTEMI suspect type II MARIE on CKD-nephrology follow Cardiomyopathy A. fib Hypertension GI bleed?-GI bilateral Anemia Vascular dementia Echo 03/09/2022-EF 25 to 30%. Severe global hypokinesis of left ventricle. Moderate concentric LVH. Mild diastolic dysfunction is present impaired relaxation pattern. Moderate aortic regurgitation. No pericardial effusion Plan: Patient is positive for VRE ID consulted Troponins noted to be elevated however suspect NSTEMI type II in setting of sepsis and MARIE on CKD Recommend conservative cardiac mgmt recommended in light of patient's mental status Telemetry reviewed : Converted to sinus rhythm 90s with PACs Continue Amio 200mg PO BID, metoprolol 100mg PO BID, aspirin, and statin Patient H&H noted to drop requiring blood transfusion after being on Eliquis will hold anticoagulation Patient does not appear to be a candidate for anticoagulation Will hold NATALYA and ARB due to elevated creatinine and documented allergy At this time no cardiac contraindications to GI intervention for possible EGD/colonoscopy Patient seen in conjunction with Dr. Anaya who agrees with this plan of care - Patient Problems (1) Sepsis Current Visit: Yes Status: Acute (2) MARIE (acute kidney injury) Current Visit: No Status: Acute (3) Anemia Current Visit: Yes Status: Acute (4) CKD (chronic kidney disease) Current Visit: No Status: Acute (5) Cardiomyopathy Current Visit: Yes Status: Chronic (6) Elevated troponin Current Visit: No Status: Acute (7) PNA (pneumonia) Current Visit: Yes Status: Acute Qualifiers: Pneumonia type: aspiration pneumonia (8) Vascular dementia Current Visit: Yes Status: Chronic Qualifiers: Dementia behavioral disturbance: with behavioral disturbance Qualified Code(s): F01.51 - Vascular dementia with behavioral disturbance Subjective Date of service: 04/05/22 Principal diagnosis: Sepsis Interval history: Patient resting in bed in no acute distress. Patient converted to sinus rhythm 90s with PACs he is on monitor Objective Vital Signs Temp Pulse Resp BP BP Pulse Ox 04/05/22 05:18 97.5 F L 54 L 16 131/64 98 04/04/22 22:00 20 97 04/04/22 21:10 84 131/72 04/04/22 20:31 86 131/72 100 04/04/22 15:35 99.4 F 68 24 126/66 98 - Physical Examination General: No Apparent Distress HEENT: Positive: EOMI, Normocephaly, Mucus Membranes Moist, Mucus Membranes Dry Neck: Positive: neck supple, trachea midline Cardiac: Positive: Reg Rate and Rhythm Lungs: Positive: Normal Breath Sounds Neuro: Positive: Grossly Intact Abdomen: Positive: Soft, Active Bowel Sounds. Negative: Tender Skin: Negative: Rash Musculoskeletal: No Fluid Collection Extremities: Present: upper extr. pulses. Absent: edema - Labs and Meds Cardiac Enzymes 04/05/22 Range/Units 05:06 AST 9 (5-40) units/L CBC 04/04/22 04/05/22 Range/Units 11:38 05:06 WBC 8.0 (4.5-11.0) K/mm3 RBC 2.72 L (3.65-5.03) M/mm3 Hgb 7.4 L 7.3 L (11.8-15.2) gm/dl Hct 23.3 L 22.4 L (35.5-45.6) % Plt Count 258 (140-440) K/mm3 Lymph # (Auto) 1.1 L (1.2-5.4) K/mm3 [place] # (Auto) 0.8 (0.0-0.8) K/mm3 Eos # (Auto) 0.5 H (0.0-0.4) K/mm3 Baso # (Auto) 0.1 (0.0-0.1) K/mm3 Comprehensive Metabolic Panel 04/04/22 04/05/22 Range/Units 11:38 05:06 Sodium 142 145 (137-145) mmol/L Potassium 4.4 4.2 (3.6-5.0) mmol/L Chloride 115.6 H 118.6 H (98-107) mmol/L Carbon Dioxide 17 L 17 L (22-30) mmol/L BUN 24 H 26 H (9-20) mg/dL Creatinine 2.3 H 2.3 H (0.8-1.3) mg/dL Glucose 67 L 98 (75-100) mg/dL Calcium 9.1 8.8 (8.4-10.2) mg/dL AST 9 (5-40) units/L ALT 7 (7-56) units/L Alkaline Phosphatase 80 (35-129) units/L Total Protein 5.8 L (6.3-8.2) g/dL Albumin 2.0 L (3.9-5) g/dL - Imaging and Cardiology Echo: report reviewed - Telemetry EKG Rhythm: Sinus Rhythm - EKG Sinus rhythms and dysrhythmias: sinus rhythm Supraventricular dysrhythmia: atrial premature complexe Chamber hypertrophy or enlargement: left ventricular hypertro
[2022-04-05] MEDS: ACETAMINOPHEN 325 MG TAB PO PRN (11:45)
[2022-04-05] MEDS: LINEZOLID 600 MG/300 ML BAG IV SCH (12:26)
--- NOTE | 2022-04-05 13:42 | Consultation ---
History of Present Illness - Reason for Consult Consult date: 04/05/22 VRE UTI, HCAP Requesting physician: COLTON LEE - History of Present Illness The patient is a 67-year-old male with CAD, CKD, atrial fibrillation, vascular dementia was admitted to the hospital on 03/31/2022 with complaints of fever and shortness of breath of 3 days. Upon evaluation in the ED, T-max of 102.8 F. Also with atrial fibrillation with rapid ventricular rate, leukocytosis. Admitted due to concerns for sepsis from pneumonia. Was started on empiric antibiotics. Urine culture growing VRE, hence infectious diseases was consulted. Now afebrile for the last 3 days. Echo showed EF of 25 to 30%, cardiology following. Initial chest x-ray on 03/31/2022 showed left upper lobe pneumonia. Interval improvement noted on chest x-ray from 04/03/2022. Poor historian, lying in bed Review of Systems: Poor historian, lying in bed Past History Past Medical History: atrial fib, CAD, heart failure, hypertension, hyperlipidemia, other (Dementia, BPH, cardiomyopathy) Past Surgical History: No surgical history Social history: smoking (History of tobacco use). denies: alcohol abuse, prescription drug abuse Family history: no significant family history Medications and Allergies Allergies Allergy/AdvReac Type Severity Reaction Status Date / Time lisinopril Allergy Hives Verified 03/31/22 07:48 Home Medications Medication Instructions Recorded Confirmed Last Taken Type Tamsulosin [Flomax] 0.4 mg PO QDAY #7 cap 08/28/15 03/16/22 Unknown Rx AtorvaSTATin [Lipitor] 40 mg PO QHS 03/11/22 03/16/22 Unknown History metHOTREXate sodium [Methotrexate] 15 mg PO 1XW 03/11/22 03/16/22 Unknown History predniSONE 10 mg PO BID 03/16/22 03/16/22 Unknown History Amiodarone [Cordarone 200 MG TAB] 200 mg PO BID tablet 03/23/22 Unknown Rx Apixaban [Eliquis] 5 mg PO Q12HR tablet 03/23/22 Unknown Rx Aspirin [Aspirin BABY CHEW TAB] 81 mg PO QDAY tab.chew 03/23/22 Unknown Rx Doxazosin [Cardura] 4 mg PO QDAY tablet 03/23/22 Unknown Rx Famotidine [Pepcid] 20 mg PO DAILY tablet 03/23/22 Unknown Rx Metoprolol [Lopressor TAB] 100 mg PO BID tablet 03/23/22 Unknown Rx Nicotine [Habitrol] 21 mg TD QDAY patch 03/23/22 Unknown Rx QUEtiapine [SEROquel] 50 mg PO QHS tablet 03/23/22 Unknown Rx amLODIPine 10 mg PO DAILY #30 tab 03/24/22 Unknown Rx Active Meds: Active Medications Acetaminophen (Acetaminophen 325 Mg Tab) 650 mg PO Q4H PRN PRN Reason: Pain MILD(1-3)/Fever >100.5/[place] Last Admin: 04/05/22 11:45 Dose: 650 mg Amiodarone HCl (Amiodarone 200 Mg Tab) 200 mg PO BID COUNT INCLUDES THE [facility] Last Admin: 04/05/22 11:31 Dose: 200 mg Aspirin (Aspirin 81 Mg Tab Chew) 81 mg PO QDAY COUNT INCLUDES THE [facility] Last Admin: 04/05/22 11:22 Dose: 81 mg Atorvastatin Calcium (Atorvastatin 40 Mg Tab) 40 mg PO QHS COUNT INCLUDES THE [facility] Last Admin: 04/04/22 21:11 Dose: 40 mg Doxazosin Mesylate (Doxazosin 4 Mg Tab) 4 mg PO QDAY COUNT INCLUDES THE [facility] Last Admin: 04/04/22 11:24 Dose: 4 mg Famotidine (Famotidine 20 Mg Tab) 20 mg PO DAILY COUNT INCLUDES THE [facility] Cefepime HCl (Cefepime/Ns 2 Gm/100 Ml) 2 gm in 100 mls @ 200 mls/hr IV Q12H COUNT INCLUDES THE [facility]; Protocol Last Admin: 04/05/22 11:18 Dose: 200 mls/hr Linezolid (Zyvox 600mg/300ml) 600 mg in 300 mls @ 300 mls/hr IV Q12H COUNT INCLUDES THE [facility]; Protocol Last Admin: 04/05/22 12:26 Dose: 300 mls/hr Methotrexate (Methotrexate 2.5 Mg Tab (Dose Weekly Only)) 15 mg PO [facility] Metoprolol Tartrate (Metoprolol Tartrate 100 Mg Tab) 100 mg PO BID COUNT INCLUDES THE [facility] Last Admin: 04/05/22 11:31 Dose: 100 mg Morphine Sulfate (Morphine 2 Mg/1 Ml Inj) 2 mg IV Q4H PRN PRN Reason: Pain, Moderate (4-6) Last Admin: 04/03/22 09:50 Dose: 2 mg Morphine Sulfate (Morphine 4 Mg/1 Ml Inj) 4 mg IV Q4H PRN PRN Reason: Pain , Severe (7-10) Ondansetron HCl (Ondansetron 4 Mg/2 Ml Inj) 4 mg IV Q8H PRN PRN Reason: Nausea And Vomiting Pantoprazole Sodium (Pantoprazole 40 Mg Inj) 40 mg IV BID COUNT INCLUDES THE [facility] Last Admin: 04/05/22 11:18 Dose: 40 mg Quetiapine Fumarate (Quetiapine 25 Mg Tab) 50 mg PO QHS COUNT INCLUDES THE [facility] Last Admin: 04/04/22 21:12 Dose: 50 mg Sodium Chloride (Sodium Chloride 0.9% 10 Ml Flush Syringe) 10 ml IV BID COUNT INCLUDES THE [facility] Last Admin: 04/05/22 11:18 Dose: 10 ml Sodium Chloride (Sodium Chloride 0.9% 10 Ml Flush Syringe) 10 ml IV PRN PRN PRN Reason: LINE FLUSH Last Admin: 04/03/22 00:54 Dose: 10 ml Tamsulosin HCl (Tamsulosin 0.4 Mg Cap) 0.4 mg PO QDAY COUNT INCLUDES THE [facility] Last Admin: 04/05/22 11:24 Dose: 0.4 mg Physical Examination - Physical Exam Narrative exam: Physical Exam: Constitutional: Awake, does not communicate Head, Ears, Nose: Normocephalic, atraumatic. External ears, nose normal Eyes: Conjunctivae/corneas clear. No icterus. No ptosis. Neck: Supple, no meningeal signs Cardiovascular: S1, S2 + Respiratory: AE fair bilaterally GI: Soft, non-tender; bowel sounds normal. No peritoneal signs Musculoskeletal: No pedal edema, no cyanosis. Skin: No rash or abscess Hem/Lymphatic: No palpable cervical or supraclavicular nodes. No lymphangitis Psych: No agitation Neurological: Awake, does not communicate - Constitutional Vitals: Vital Signs Temp Pulse Resp BP Pulse Ox 97.5 F L 78 16 131/71 98 04/05/22 05:18 04/05/22 11:31 04/05/22 05:18 04/05/22 11:31 04/05/22 05:18 Temperature -Last 24 Hours Temperature 97.5 F Temperature 99.4 F Results - Labs CBC & Chem 7: 04/05/22 05:06 04/05/22 05:06 Labs: Abnormal lab results 04/05/22 04/05/22 Range/Units 05:06 05:06 RBC 2.72 L (3.65-5.03) M/mm3 Hgb 7.3 L (11.8-15.2) gm/dl Hct 22.4 L (35.5-45.6) % MCV 82 L (84-94) fl MCH 27 L (28-32) pg RDW 20.5 H (13.2-15.2) % Lymph % (Auto) 13.2 L (13.4-35.0) % [place] % (Auto) 10.1 H (0.0-7.3) % Eos % (Auto) 6.6 H (0.0-4.3) % Lymph # (Auto) 1.1 L (1.2-5.4) K/mm3 Eos # (Auto) 0.5 H (0.0-0.4) K/mm3 Seg Neuts % (Manual) 93.0 H (40.0-70.0) % Lymphocytes % (Manual) 2.0 L (13.4-35.0) % Lymphocytes # (Manual) 0.2 L (1.2-5.4) K/mm3 Chloride 118.6 H (98-107) mmol/L Carbon Dioxide 17 L (22-30) mmol/L BUN 26 H (9-20) mg/dL Creatinine 2.3 H (0.8-1.3) mg/dL Total Protein 5.8 L (6.3-8.2) g/dL Albumin 2.0 L (3.9-5) g/dL - Imaging and Cardiology Chest x-ray: report reviewed, image reviewed (interval improvement) Assessment and Plan Cultures: COVID-19 PCR: Negative 03/31/2022 blood culture: No growth 04/01/2022 urine culture: VRE - Enterococcus faecium A/P: 67-year-old male with CAD, CKD, atrial fibrillation, vascular dementia was admitted to the hospital on 03/31/2022 with fever and shortness of breath: #Sepsis, likely secondary to pneumonia: repeat CXR with some interval improvement. Leukocytosis has improved. Afebrile, completed empiric antibiotic course. #VRE UTI: Asymptomatic bacteriuria, UA without any significant pyuria reflect colonization. No treatment indicated. #MARIE v/s CKD: Nephrology consulted. 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 Unclear indication #Dementia Recs: Cefepime course completed, discontinued Linezolid discontinued Juanis Greco MD, FACP, [facility] O: [phone] F: [phone] C: [phone]
--- NOTE | 2022-04-05 14:09 | Gastroenterology Progress Note ---
Assessment and Plan 1. Anemia with heme positive stool - no overt gi bleeding, H/H stable, pt's family has given consent per pt's nurse for gi work-up. place on clears tomorrow, will follow-up and possible prep tomorrow evening for egd/colonoscopy based on clinical course. Subjective Date of service: 04/05/22 Principal diagnosis: Sepsis Interval history: no overt bleeding signs. Objective - Exam Narrative Exam: gen: nad, + confusion CV: rrr abd: soft, nt - Constitutional Vitals: Temp Pulse Resp BP Pulse Ox 97.5 F L 78 16 131/71 98 04/05/22 05:18 04/05/22 11:31 04/05/22 05:18 04/05/22 11:31 04/05/22 05:18 - Labs CBC & Chem 7: 04/05/22 05:06 04/05/22 05:06 Labs: Laboratory Results - last 24 hr 04/05/22 04/05/22 05:06 05:06 WBC 8.0 RBC 2.72 L Hgb 7.3 L Hct 22.4 L MCV 82 L MCH 27 L MCHC 33 RDW 20.5 H Plt Count 258 Lymph % (Auto) 13.2 L Armstrong % (Auto) 10.1 H Eos % (Auto) 6.6 H Baso % (Auto) 0.7 Lymph # (Auto) 1.1 L Armstrong # (Auto) 0.8 Eos # (Auto) 0.5 H Baso # (Auto) 0.1 Add Manual Diff Complete Total Counted 100 Seg Neutrophils % 69.4 Seg Neuts % (Manual) 93.0 H Band Neutrophils % 1.0 Lymphocytes % (Manual) 2.0 L Reactive Lymphs % (Man) 0 Monocytes % (Manual) 1.0 Eosinophils % (Manual) 3.0 Basophils % (Manual) 0 Metamyelocytes % 0 Myelocytes % 0 Promyelocytes % 0 Blast Cells % 0 Nucleated RBC % Not Reportable Seg Neutrophils # 5.5 Seg Neutrophils # Man 7.4 Band Neutrophils # 0.1 Lymphocytes # (Manual) 0.2 L Abs React Lymphs (Man) 0.0 Monocytes # (Manual) 0.1 Eosinophils # (Manual) 0.2 Basophils # (Manual) 0.0 Metamyelocytes # 0.0 Myelocytes # 0.0 Promyelocytes # 0.0 Blast Cells # 0.0 WBC Morphology Not Reportable Hypersegmented Neuts Not Reportable Hyposegmented Neuts Not Reportable Hypogranular Neuts Not Reportable Smudge Cells Not Reportable Toxic Granulation Not Reportable Toxic Vacuolation Not Reportable Dohle Bodies Not Reportable Pelger-Huet Anomaly Not Reportable Marylin Rods Not Reportable Platelet Estimate Consistent w auto Clumped Platelets Not Reportable Plt Clumps, EDTA Not Reportable Large Platelets Not Reportable Giant Platelets Not Reportable Platelet Satelliting Not Reportable Plt Morphology Comment Not Reportable RBC Morphology Not Reportable Dimorphic RBCs Not Reportable Polychromasia Not Reportable Hypochromasia Not Reportable Poikilocytosis 1+ Anisocytosis 1+ Microcytosis Not Reportable Macrocytosis Not Reportable Spherocytes 1+ Pappenheimer Bodies Not Reportable Sickle Cells Not Reportable Target Cells Few Tear Drop Cells Not Reportable Ovalocytes 1+ Helmet Cells Not Reportable Alvarez-College Bodies Not Reportable [place] Rings Not Reportable Carlisle Cells Few Bite Cells Not Reportable Crenated Cell Not Reportable Elliptocytes 1+ Acanthocytes (Spur) Not Reportable Rouleaux Not Reportable Hemoglobin C Crystals Not Reportable Schistocytes Not Reportable Malaria parasites Not Reportable Cristino Bodies Not Reportable Hem Pathologist Commnt No Sodium 145 Potassium 4.2 Chloride 118.6 H Carbon Dioxide 17 L Anion Gap 14 BUN 26 H Creatinine 2.3 H Estimated GFR 35 BUN/Creatinine Ratio 11 Glucose 98 Calcium 8.8 Magnesium 2.00 Total Bilirubin 0.50 AST 9 ALT 7 Alkaline Phosphatase 80 Total Protein 5.8 L Albumin 2.0 L Albumin/Globulin Ratio 0.5
--- NOTE | 2022-04-05 14:54 | Progress Note ---
Assessment and Plan The patient is a 67-year-old male with CAD, CKD, atrial fibrillation, vascular dementia was admitted to the hospital on 03/31/2022 with complaints of fever and shortness of breath of 3 days. Upon evaluation in the ED, T-max of 102.8 F. Also with atrial fibrillation with rapid ventricular rate, leukocytosis. Admitted due to concerns for sepsis from pneumonia. Was started on empiric antibiotics. Urine culture growing VRE.. Echo showed EF of 25 to 30%, cardiology following. Initial chest x-ray on 03/31/2022 showed left upper lobe pneumonia. Interval improvement noted on chest x-ray from 04/03/2022. 04/01/2020; patient is febrile, mild distress, on Vanco and cefepime, follow cultures 04/02; patient's hemoglobin dropped to 6.8, 1 unit PRBC transfusion, Eliquis held, follow stool guaiac Cardiology recommendations noted and appreciated 04/03; received 1 unit PRBC yesterday, Hb today 7.2, closely monitor 04/04; patient completed 5 days of Vanco and cefepime for HCAP Urine cultures positive for VRE, add Zyvox 600 mg IV every 12 Contact isolation, ID consulted 04/05: Final ID no antibiotic treatment necessary for VRE as that could be colonization. Continue to monitor for renal function improvement. Plan for colonoscopy on . Continue to monitor H&H. Assessment and plan: --Anemia; Hb 6.8-7.2 Received 1 unit of PRBC today, Eliquis held closely monitor transfuse additional PRBC as needed Plan for colonoscopy on Stool for occult blood is positive GI; evaluated the patient, as patient is septic No plans of endoscopy at this point Continue supportive care -- A. fib with rapid ventricular rate; rate controlled Continue amiodarone, metoprolol Eliquis held due to anemia, heme positive stool, GI consult Cardiology evaluation noted and appreciated Follow-up stool for occult blood -- Acute on chronic systolic congestive heart failure; LVEF 25 to 30% Diuretics as needed, beta-blockers, no NATALYA inhibitors in view of acute kidney injury Input output monitoring, fluid restriction, supportive care --Non-ST elevation AR; probably type II Serial cardiac enzymes, serial EKG However patient has multiple risk factors Resume home cardiac medications Cardiology consulted -- Febrile illness; PUI/COVID-19 negative Negative COVID test Persistent fever probably due to UTI/hospital-acquired pneumonia Isolation, elizondo PCR test, supportive care -- Pneumonia; hospital-acquired pneumonia Empiric antibiotics Vanco cefepime[completed 5 days] Blood cultures negative to date --Urinary tract infection; present on admission Cultures positive for VRE , contact isolation S/p Zyvox 600 mg IV every 12 hours ID consulted -- Sepsis; due to urinary tract infection, hospital-acquired pneumonia Completed 5 days of cefepime and Vanco - Metabolic encephalopathy/dementia Supportive care, treat the underlying cause -- MARIE on chronic kidney disease; likely due to vasomotor nephropathy Closely monitor renal function, avoid nephrotoxin Nephrology consulted, --Severe protein calorie malnutrition; Nutrition supplements, supportive care Nutrition consult --Severe hypoalbuminemia; albumin 2.8 Nutrition supplements, supportive care -- Nicotine dependence; Smoking cessation counseling Nicotine patch as needed --Full CODE STATUS -- DVT prophylaxis; Patient is on Eliquis, which is now on hold Disposition; follow clinically follow consultants recommendation, discharge when stable Subjective Date of service: 04/05/22 Principal diagnosis: Sepsis Interval history: Patient seen and examined. Medical records and medication list reviewed. No acute event overnight noted by the RN. Patient noted to have elevated creatinine Patient is mostly nonverbal, vitals noted Discussed plan of care at bedside with patient's RN. Objective - Exam Narrative Exam: GENERAL: well-developed and well-nourished -[place] male lying on bed appeared to be in no discomfort. HEENT: Normocephalic. Atraumatic. No conjunctival congestion or icterus. Patient has moist mucous membranes. NECK: Supple. Trachea midline. CHEST/LUNGS: Clear to auscultated bilaterally, breathing nonlabored. No wheezes crackles or rhonchi. HEART/CARDIOVASCULAR: Regular in rate and rhythm. S1 and S2 positive. ABDOMEN: Abdomen is soft, nontender. Patient has normal bowel sounds. SKIN: There is no rash. Warm and dry. NEURO: Generalized weakness, does not move extremities. Only speaks few words MUSCULOSKELETAL: No joint effusion or tenderness. EXTRIMITY: No edema, no cyanosis or clubbing. PSYCH: Cooperative but lethargic. - Constitutional Vitals: Vital Signs - 12hr 04/05/22 04/05/22 05:18 11:31 Temperature 97.5 F L Pulse Rate 54 L 78 Respiratory 16 Rate Blood Pressure 131/71 Blood Pressure 131/64 [Left] O2 Sat by Pulse 98 Oximetry - Labs CBC & Chem 7: 04/09/22 04:30 04/10/22 04:19 Labs: Abnormal lab results 04/05/22 04/05/22 Range/Units 05:06 05:06 RBC 2.72 L (3.65-5.03) M/mm3 Hgb 7.3 L (11.8-15.2) gm/dl Hct 22.4 L (35.5-45.6) % MCV 82 L (84-94) fl MCH 27 L (28-32) pg RDW 20.5 H (13.2-15.2) % Lymph % (Auto) 13.2 L (13.4-35.0) % Delta % (Auto) 10.1 H (0.0-7.3) % Eos % (Auto) 6.6 H (0.0-4.3) % Lymph # (Auto) 1.1 L (1.2-5.4) K/mm3 Eos # (Auto) 0.5 H (0.0-0.4) K/mm3 Seg Neuts % (Manual) 93.0 H (40.0-70.0) % Lymphocytes % (Manual) 2.0 L (13.4-35.0) % Lymphocytes # (Manual) 0.2 L (1.2-5.4) K/mm3 Chloride 118.6 H (98-107) mmol/L Carbon Dioxide 17 L (22-30) mmol/L BUN 26 H (9-20) mg/dL Creatinine 2.3 H (0.8-1.3) mg/dL Total Protein 5.8 L (6.3-8.2) g/dL Albumin 2.0 L (3.9-5) g/dL HEART Score - HEART Score Troponin: Troponin T 0.135 ng/mL (0.00-0.029) H* 04/03/22 12:29
--- NOTE | 2022-04-05 15:08 | Ultrasound Report ---
ULTRASOUND RENAL INDICATION / CLINICAL INFORMATION: Acute renal failure.. COMPARISON: CT abdomen and pelvis 03/12/2022. FINDINGS: RIGHT KIDNEY: Length = 10.8 cm. - Echogenicity: Mildly echogenic. - Parenchymal Thickness: Normal. - Hydronephrosis: None. - Cyst / Mass: Multiple simple appearing cysts, the largest measuring 2.4 cm within the upper pole. - Stones: None seen. LEFT KIDNEY: Length = 10.3 cm. - Echogenicity: Mildly echogenic. - Parenchymal Thickness: Mild thinning. - Hydronephrosis: None. - Cyst / Mass: None. - Stones: None seen. URINARY BLADDER: No significant abnormality. FREE FLUID: None. ADDITIONAL FINDINGS: Left pleural effusion. IMPRESSION: 1. No acute sonographic abnormality. 2. Findings suggestive of chronic medical renal disease bilaterally. 3. Simple right renal cysts. 4. Left pleural effusion. Scribed by: Lynda Martinez RDMS, RVT, VALERIANO Scribed: 04/05/2022 1:24 PM I have reviewed the images, agree with this report, and edited this report as needed. Signer Name: Elias James MD Signed: 04/05/2022 3:04 PM Workstation Name: [id number]
[2022-04-05] MEDS: DOXAZOSIN 4 MG TAB PO SCH (15:09)
[2022-04-05] MEDS: QUEtiapine 25 MG TAB PO SCH (21:37)
[2022-04-06] MEDS: MORPHINE 2 MG/1 ML INJ IV PRN (05:35)
[2022-04-06 06:33] LABS: Calcium 9.7 mg/dL (8.4-10.2)
--- NOTE | 2022-04-06 09:50 | Progress Note ---
Assessment and Plan Cultures: COVID-19 PCR: Negative 03/31/2022 blood culture: No growth 04/01/2022 urine culture: VRE - Enterococcus faecium A/P: 67-year-old male with CAD, CKD, atrial fibrillation, vascular dementia was admitted to the hospital on 03/31/2022 with fever and shortness of breath: #Sepsis, likely secondary to pneumonia: repeat CXR with some interval improvement. Leukocytosis has improved. Afebrile, completed empiric antibiotic course. #VRE UTI: Asymptomatic bacteriuria, UA without any significant pyuria reflect colonization. No treatment indicated. #MARIE v/s CKD: Nephrology on board. 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 Unclear indication. #Dementia Recs: Off abx since 04/05/2022 Juanis Greco MD, FACP, [facility] O: [phone] F: [phone] C: [phone] Subjective Date of service: 04/06/22 Principal diagnosis: Sepsis Interval history: No fever. Tmax 99F. Lying in bed, has oxygen on, opens eyes but doesn't respond much. Objective - Exam Narrative Exam: Physical Exam: Constitutional: Awake, does not communicate Head, Ears, Nose: Normocephalic, atraumatic. External ears, nose normal Eyes: Conjunctivae/corneas clear. No icterus. No ptosis. Neck: Supple, no meningeal signs Cardiovascular: S1, S2 + Respiratory: AE fair bilaterally GI: Soft, non-tender; bowel sounds normal. No peritoneal signs Musculoskeletal: No pedal edema, no cyanosis. Skin: No rash or abscess Hem/Lymphatic: No palpable cervical or supraclavicular nodes. No lymphangitis Psych: No agitation Neurological: Awake, does not communicate - Constitutional Vitals: Vital Signs Temp Pulse Resp BP Pulse Ox 99.1 F 86 20 128/70 99 04/06/22 04:57 04/06/22 04:57 04/06/22 04:57 04/06/22 04:57 04/06/22 04:57 Temperature -Last 24 Hours Temperature 99.1 F Temperature 98.1 F Temperature 99.2 F Temperature 99.7 F - Labs CBC & Chem 7: 04/05/22 05:06 08/31/22 05:46 Labs: Abnormal lab results 04/05/22 04/05/22 04/06/22 Range/Units 18:16 22:03 05:46 Chloride 117.4 H (98-107) mmol/L Carbon Dioxide 16 L (22-30) mmol/L BUN 28 H (9-20) mg/dL Creatinine 2.9 H (0.8-1.3) mg/dL POC Glucose 108 H (70-105) mg/dL Urine Creatinine 82.0 H (0.1-20.0) mg/dL
--- NOTE | 2022-04-06 10:17 | Gastroenterology Progress Note ---
Assessment and Plan 1. Anemia with heme positive stool - no overt gi bleeding, h/o afib (now sinus) but has not tolerated AC trials in the past. will plan egd/colonoscopy tomorrow if patient able to drink prep for procedure. family member will provide consent for procedures as pt unable to do so given mentation. Subjective Date of service: 04/06/22 Principal diagnosis: anemia Interval history: no events overnight or new signs of gi bleeding. awake but not answering questions appropriately Objective - Constitutional Vitals: Temp Pulse Resp BP Pulse Ox 99.1 F 86 20 128/70 99 04/06/22 04:57 04/06/22 04:57 04/06/22 04:57 04/06/22 04:57 04/06/22 04:57 General appearance: no acute distress, other (+ ams) - Respiratory Respiratory effort: normal Respiratory: bilateral: CTA - Gastrointestinal General gastrointestinal: Present: soft, non-tender - Neurologic Neurological: disoriented - Labs CBC & Chem 7: 04/05/22 05:06 04/06/22 05:46 Labs: Laboratory Results - last 24 hr 04/05/22 04/05/22 04/06/22 18:16 22:03 05:46 Sodium Potassium Chloride Carbon Dioxide Anion Gap BUN Creatinine Estimated GFR BUN/Creatinine Ratio Glucose POC Glucose 108 H Calcium Urine Creatinine 82.0 H Urine Sodium 107 Random Vancomycin 18.2 04/06/22 04/06/22 05:46 08:05 Sodium 145 Potassium 4.2 Chloride 117.4 H Carbon Dioxide 16 L Anion Gap 16 BUN 28 H Creatinine 2.9 H Estimated GFR 26 BUN/Creatinine Ratio 10 Glucose 85 POC Glucose 80 Calcium 9.7 Urine Creatinine Urine Sodium Random Vancomycin
--- NOTE | 2022-04-06 10:36 | Progress Note ---
Assessment and Plan 1. Acute kidney injury: Vasomotor MARIE superimposed on CKD in the setting of sepsis/CHF/A.Fib with RVR. Renal US negative. Monitor renal function. Creatinine level increasing. Renal prognosis is guarded. Avoid nephrotoxic agents. Meds dosage based on GFR. 2. FEN: Hyperchloremic metabolic acidosis, Sod bicarb, monitor. Replete lytes as needed. Monitor lytes and volume status. 3. A.fib with RVR: Amio and Metoprolol. Followed by Cards. Monitor. 4. Acute on chronic systolic congestive heart failure / Non-STEMI: LVEF 25 to 30%. Beta-blockers. Monitor. Followed by Cards. 5. HCAP / UTI / Sepsis: Followed by ID. 6. Acute metabolic encephalopathy, POA: H/o Dementia. Monitor. 7. Microcytic Anemia, POA: Heme positive stool. Trend. Followed by GI. Subjective: Patient was seen and examined at the bedside. Examination: General appearance: well-developed, appears stated age, no distress HEENT: atraumatic, no icterus Neck: trachea midline Respiratory: ctab Heart: S1S2, no murmur Abdomen: soft, bowel sounds heard, NT Integumentary: no obvious rash Neurologic: alert, not following any command Ext: LE edema : Arteaga catheter Subjective Date of service: 04/06/22 Principal diagnosis: anemia Objective - Vital Signs Vital signs: Vital Signs - 12hr 04/06/22 04:57 Temperature 99.1 F Pulse Rate 86 Respiratory 20 Rate Blood Pressure 128/70 O2 Sat by Pulse 99 Oximetry - Lab 04/05/22 05:06 04/06/22 05:46 Most recent lab results Calcium 9.7 mg/dL (8.4-10.2) 04/06/22 05:46 Magnesium 2.00 mg/dL (1.7-2.3) 04/05/22 05:06 Urine Creatinine 82.0 mg/dL (0.1-20.0) H 04/05/22 18:16 Urine Sodium 107 mmol/L 04/05/22 18:16 Medications & Allergies - Medications Allergies/Adverse Reactions: Allergies lisinopril Allergy (Verified 03/31/22 07:48) Hives Home Medications: Home Medications Medication Instructions Recorded Confirmed Last Taken Type Tamsulosin [Flomax] 0.4 mg PO QDAY #7 cap 08/28/15 03/16/22 Unknown Rx AtorvaSTATin [Lipitor] 40 mg PO QHS 03/11/22 03/16/22 Unknown History metHOTREXate sodium [Methotrexate] 15 mg PO 1XW 03/11/22 03/16/22 Unknown History predniSONE 10 mg PO BID 03/16/22 03/16/22 Unknown History Amiodarone [Cordarone 200 MG TAB] 200 mg PO BID tablet 03/23/22 Unknown Rx Apixaban [Eliquis] 5 mg PO Q12HR tablet 03/23/22 Unknown Rx Aspirin [Aspirin BABY CHEW TAB] 81 mg PO QDAY tab.chew 03/23/22 Unknown Rx Doxazosin [Cardura] 4 mg PO QDAY tablet 03/23/22 Unknown Rx Famotidine [Pepcid] 20 mg PO DAILY tablet 03/23/22 Unknown Rx Metoprolol [Lopressor TAB] 100 mg PO BID tablet 03/23/22 Unknown Rx Nicotine [Habitrol] 21 mg TD QDAY patch 03/23/22 Unknown Rx QUEtiapine [SEROquel] 50 mg PO QHS tablet 03/23/22 Unknown Rx amLODIPine 10 mg PO DAILY #30 tab 03/24/22 Unknown Rx Active Medications: Generic Name Dose Route Start Last Admin Trade Name Freq PRN Reason Stop Dose Admin Acetaminophen 650 mg 03/31/22 13:31 04/05/22 11:45 Acetaminophen 325 Mg Tab PO 650 mg Q4H PRN Administration Pain MILD(1-3)/Fever >100.5/HILTON Amiodarone HCl 200 mg 03/31/22 22:00 04/05/22 21:38 Amiodarone 200 Mg Tab PO 200 mg BID FRANCESCA Administration Aspirin 81 mg 04/01/22 10:00 04/05/22 11:22 Aspirin 81 Mg Tab Chew PO 81 mg QDAY FRANCESCA Administration Atorvastatin Calcium 40 mg 03/31/22 22:00 04/05/22 21:37 Atorvastatin 40 Mg Tab PO 40 mg QHS FRANCESCA Administration Doxazosin Mesylate 4 mg 04/01/22 10:00 04/05/22 15:09 Doxazosin 4 Mg Tab PO 4 mg QDAY FRANCESCA Administration Famotidine 20 mg 04/05/22 12:00 04/05/22 16:02 Famotidine 20 Mg Tab PO 20 mg DAILY FRANCESCA Administration Methotrexate 15 mg 04/07/22 14:00 Methotrexate 2.5 Mg Tab (Dose Weekly Only) PO Th FRANCESCA Metoprolol Tartrate 100 mg 03/31/22 22:00 04/05/22 21:37 Metoprolol Tartrate 100 Mg Tab PO 100 mg BID FRANCESCA Administration Morphine Sulfate 2 mg 03/31/22 13:31 04/06/22 05:35 Morphine 2 Mg/1 Ml Inj IV 2 mg Q4H PRN Administration Pain, Moderate (4-6) Morphine Sulfate 4 mg 03/31/22 13:31 Morphine 4 Mg/1 Ml Inj IV Q4H PRN Pain , Severe (7-10) Ondansetron HCl 4 mg 03/31/22 13:31 Ondansetron 4 Mg/2 Ml Inj IV Q8H PRN Nausea And Vomiting Pantoprazole Sodium 40 mg 04/04/22 18:04 04/05/22 21:37 Pantoprazole 40 Mg Inj IV 40 mg BID FRANCESCA Administration Polyethylene Glycol/Electrolytes 4,000 ml 04/06/22 16:00 Polyethylene Glycol/Elect Soln 4000 Ml PO 04/07/22 02:00 ONCE@1600 NR Quetiapine Fumarate 50 mg 03/31/22 22:00 04/05/22 21:37 Quetiapine 25 Mg Tab PO 50 mg QHS FRANCESCA Administration Sodium Chloride 10 ml 03/31/22 22:00 04/05/22 21:38 Sodium Chloride 0.9% 10 Ml Flush Syringe IV 10 ml BID FRANCESCA Administration Sodium Chloride 10 ml 03/31/22 13:31 04/03/22 00:54 Sodium Chloride 0.9% 10 Ml Flush Syringe IV 10 ml PRN PRN Administration LINE FLUSH Tamsulosin HCl 0.4 mg 04/01/22 10:00 04/05/22 11:24 Tamsulosin 0.4 Mg Cap PO 0.4 mg QDAY FRANCESCA Administration
[2022-04-06] MEDS: ASPIRIN 81 MG TAB CHEW PO SCH (12:06)
[2022-04-06] MEDS: METOPROLOL TARTRATE 100 MG TAB PO SCH ×2 (12:06→22:27)
[2022-04-06] MEDS: FAMOTIDINE 20 MG TAB PO SCH (12:07)
[2022-04-06] MEDS: AMIODARONE 200 MG TAB PO SCH ×2 (12:07→22:27)
[2022-04-06] MEDS: ACETAMINOPHEN 325 MG TAB PO PRN (12:07)
[2022-04-06] MEDS: DOXAZOSIN 4 MG TAB PO SCH (12:07)
[2022-04-06] MEDS: TAMSULOSIN 0.4 MG CAP PO SCH (12:09)
[2022-04-06] MEDS: PANTOPRAZOLE 40 MG INJ IV SCH ×2 (12:09→22:26)
[2022-04-06] MEDS: SODIUM BICARBONATE 650 MG TAB PO SCH ×2 (12:11→22:28)
--- NOTE | 2022-04-06 14:50 | Progress Note ---
Assessment and Plan Patient is a 67-year-old male with a past medical history of cardiomyopathy (EF 25 to 30%), A. fib, CKD, hypertension, and dementia who was brought to the ED by EMS for fever and SOB x3 days. Sepsis PNA VRE-ID following NSTEMI suspect type II MARIE on CKD-nephrology follow Cardiomyopathy A. fib Hypertension GI bleed?-GI bilateral Anemia Vascular dementia Echo 03/09/2022-EF 25 to 30%. Severe global hypokinesis of left ventricle. Moderate concentric LVH. Mild diastolic dysfunction is present impaired relaxation pattern. Moderate aortic regurgitation. No pericardial effusion Plan: Troponins noted to be elevated however suspect NSTEMI type II in setting of sepsis and MARIE on CKD Recommend conservative cardiac mgmt recommended in light of patient's mental status Telemetry reviewed : Remained sinus rhythm with PACs Continue Amio 200mg PO BID, metoprolol 100mg PO BID, aspirin, and statin Patient H&H noted to drop requiring blood transfusion after being on Eliquis will hold anticoagulation Patient does not appear to be a candidate for anticoagulation Will hold NATALYA and ARB due to elevated creatinine and documented allergy At this time no cardiac contraindications to GI intervention for possible EGD/colonoscopy Patient seen in conjunction with Dr. Nuñez who agrees with this plan of care - Patient Problems (1) Sepsis Current Visit: Yes Status: Acute (2) MARIE (acute kidney injury) Current Visit: No Status: Acute (3) Anemia Current Visit: Yes Status: Acute (4) CKD (chronic kidney disease) Current Visit: No Status: Acute (5) Cardiomyopathy Current Visit: Yes Status: Chronic (6) Elevated troponin Current Visit: No Status: Acute (7) PNA (pneumonia) Current Visit: Yes Status: Acute Qualifiers: Pneumonia type: aspiration pneumonia (8) Vascular dementia Current Visit: Yes Status: Chronic Qualifiers: Dementia behavioral disturbance: with behavioral disturbance Qualified Code(s): F01.51 - Vascular dementia with behavioral disturbance Subjective Date of service: 04/06/22 Principal diagnosis: anemia Interval history: Patient resting in bed in no acute distress. Patient main sinus rhythm 70s to 80s with PACs on monitor Objective Vital Signs Temp Pulse Resp BP Pulse Ox 04/06/22 04:57 99.1 F 86 20 128/70 99 04/05/22 22:00 22 100 04/05/22 21:39 98.1 F 20 100 04/05/22 21:37 69 128/72 04/05/22 21:34 74 128/72 99 04/05/22 17:19 99.2 F 68 20 115/65 100 - Physical Examination General: No Apparent Distress HEENT: Positive: EOMI, Normocephaly, Mucus Membranes Moist, Mucus Membranes Dry Neck: Positive: neck supple, trachea midline Cardiac: Positive: Reg Rate and Rhythm Lungs: Positive: Normal Breath Sounds Neuro: Positive: Grossly Intact Abdomen: Positive: Soft, Active Bowel Sounds. Negative: Tender Skin: Negative: Rash Musculoskeletal: No Fluid Collection Extremities: Present: upper extr. pulses. Absent: edema - Labs and Meds Comprehensive Metabolic Panel 04/06/22 Range/Units 05:46 Sodium 145 (137-145) mmol/L Potassium 4.2 (3.6-5.0) mmol/L Chloride 117.4 H (98-107) mmol/L Carbon Dioxide 16 L (22-30) mmol/L BUN 28 H (9-20) mg/dL Creatinine 2.9 H (0.8-1.3) mg/dL Glucose 85 (75-100) mg/dL Calcium 9.7 (8.4-10.2) mg/dL - Imaging and Cardiology Echo: report reviewed - Telemetry EKG Rhythm: Sinus Rhythm - EKG Sinus rhythms and dysrhythmias: sinus rhythm Chamber hypertrophy or enlargement: left ventricular hypertro
[2022-04-06] MEDS ORDERED: POLYETHYLENE GLYCOL/ELECT SOLN 4000 ML PO NR (16:00)
--- NOTE | 2022-04-06 16:08 | Progress Note ---
Assessment and Plan The patient is a 67-year-old male with CAD, CKD, atrial fibrillation, vascular dementia was admitted to the hospital on 03/31/2022 with complaints of fever and shortness of breath of 3 days. Upon evaluation in the ED, T-max of 102.8 F. Also with atrial fibrillation with rapid ventricular rate, leukocytosis. Admitted due to concerns for sepsis from pneumonia. Was started on empiric antibiotics. Urine culture growing VRE.. Echo showed EF of 25 to 30%, cardiology following. Initial chest x-ray on 03/31/2022 showed left upper lobe pneumonia. Interval improvement noted on chest x-ray from 04/03/2022. 04/01/2020; patient is febrile, mild distress, on Vanco and cefepime, follow cultures 04/02; patient's hemoglobin dropped to 6.8, 1 unit PRBC transfusion, Eliquis held, follow stool guaiac Cardiology recommendations noted and appreciated 04/03; received 1 unit PRBC yesterday, Hb today 7.2, closely monitor 04/04; patient completed 5 days of Vanco and cefepime for HCAP Urine cultures positive for VRE, add Zyvox 600 mg IV every 12 Contact isolation, ID consulted 04/05: Final ID no antibiotic treatment necessary for VRE as that could be colonization. Continue to monitor for renal function improvement. Plan for colonoscopy on . Continue to monitor H&H. 04/06: Continue to follow serum creatinine, plan for colonoscopy tomorrow. Follow H&H. Patient also needs placement Assessment and plan: --Anemia; Hb 6.8-7.2 Received 1 unit of PRBC today, Eliquis held closely monitor transfuse additional PRBC as needed Plan for colonoscopy on Stool for occult blood is positive GI; evaluated the patient, as patient is septic Plan for colonoscopy tomorrow Continue supportive care -- A. fib with rapid ventricular rate; rate controlled Continue amiodarone, metoprolol Eliquis held due to anemia, heme positive stool, GI consult Cardiology evaluation noted and appreciated Follow-up stool for occult blood -- Acute on chronic systolic congestive heart failure; LVEF 25 to 30% Diuretics as needed, beta-blockers, no NATALYA inhibitors in view of acute kidney injury Input output monitoring, fluid restriction, supportive care --Non-ST elevation [place]; probably type II Serial cardiac enzymes, serial EKG However patient has multiple risk factors Resume home cardiac medications Cardiology consulted -- Febrile illness; PUI/COVID-19 negative Negative COVID test Persistent fever probably due to UTI/hospital-acquired pneumonia Isolation, elizondo PCR test, supportive care -- Pneumonia; hospital-acquired pneumonia Empiric antibiotics Vanco cefepime[completed 5 days] Blood cultures negative to date --Urinary tract infection; present on admission Cultures positive for VRE , contact isolation S/p Zyvox 600 mg IV every 12 hours ID consulted -- Sepsis; due to urinary tract infection, hospital-acquired pneumonia Completed 5 days of cefepime and Vanco - Metabolic encephalopathy/dementia Supportive care, treat the underlying cause -- MARIE on chronic kidney disease; likely due to vasomotor nephropathy Closely monitor renal function, avoid nephrotoxin Nephrology consulted, --Severe protein calorie malnutrition; Nutrition supplements, supportive care Nutrition consult --Severe hypoalbuminemia; albumin 2.8 Nutrition supplements, supportive care -- Nicotine dependence; Smoking cessation counseling Nicotine patch as needed --Immunocompromised host: Seems to be on methotrexate and prednisone as per his home medications. Unclear indication. --Full CODE STATUS -- DVT prophylaxis; Patient is on Eliquis, which is now on hold Disposition; follow clinically follow consultants recommendation, discharge when stable Subjective Date of service: 04/06/22 Principal diagnosis: anemia Interval history: Patient seen and examined. Medical records and medication list reviewed. No acute event overnight noted by the RN. Patient noted to have elevated creatinine Patient is mostly nonverbal, vitals noted Discussed plan of care at bedside with patient's RN. Objective - Exam Narrative Exam: GENERAL: well-developed and well-nourished -Citizen Of [place] male lying on bed appeared to be in no discomfort. HEENT: Normocephalic. Atraumatic. No conjunctival congestion or icterus. Patient has moist mucous membranes. NECK: Supple. Trachea midline. CHEST/LUNGS: Clear to auscultated bilaterally, breathing nonlabored. No wheezes crackles or rhonchi. HEART/CARDIOVASCULAR: Regular in rate and rhythm. S1 and S2 positive. ABDOMEN: Abdomen is soft, nontender. Patient has normal bowel sounds. SKIN: There is no rash. Warm and dry. NEURO: Generalized weakness, does not move extremities. Only speaks few words MUSCULOSKELETAL: No joint effusion or tenderness. EXTRIMITY: No edema, no cyanosis or clubbing. PSYCH: Cooperative but lethargic. - Constitutional Vitals: Vital Signs - 12hr 04/06/22 04/06/22 04:57 12:31 Temperature 99.1 F 98.4 F Pulse Rate 86 91 H Respiratory 20 22 Rate Blood Pressure 128/70 122/63 O2 Sat by Pulse 99 98 Oximetry - Labs CBC & Chem 7: 04/09/22 04:30 04/10/22 04:19 Labs: Abnormal lab results 04/05/22 04/05/22 04/06/22 Range/Units 18:16 22:03 05:46 Chloride 117.4 H (98-107) mmol/L Carbon Dioxide 16 L (22-30) mmol/L BUN 28 H (9-20) mg/dL Creatinine 2.9 H (0.8-1.3) mg/dL POC Glucose 108 H (70-105) mg/dL Urine Creatinine 82.0 H (0.1-20.0) mg/dL HEART Score - HEART Score Troponin: Troponin T 0.135 ng/mL (0.00-0.029) H* 04/03/22 12:29
[2022-04-06] MEDS: QUEtiapine 25 MG TAB PO SCH (22:28)
--- NOTE | 2022-04-07 08:46 | Progress Note ---
Assessment and Plan 1. Acute kidney injury: Vasomotor MARIE superimposed on CKD in the setting of sepsis/CHF/A.Fib with RVR. Renal US negative. Monitor renal function. Creatinine level increasing. Renal prognosis is guarded. Avoid nephrotoxic agents. Meds dosage based on GFR. 2. FEN: Hypernatremia, monitor. Hyperchloremic metabolic acidosis, Sod bicarb, monitor. Replete lytes as needed. Monitor lytes and volume status. 3. A.fib with RVR: Amio and Metoprolol. Followed by Cards. Monitor. 4. Acute on chronic systolic congestive heart failure / Non-STEMI: LVEF 25 to 30%. Beta-blockers. Monitor. Followed by Cards. 5. HCAP / UTI / Sepsis: Followed by ID. 6. Acute metabolic encephalopathy, POA: H/o Dementia. Monitor. 7. Microcytic Anemia, POA: Heme positive stool. Trend. Followed by GI. Subjective: Patient was seen and examined at the bedside. Examination: General appearance: well-developed, appears stated age, no distress HEENT: atraumatic, no icterus Neck: trachea midline Respiratory: ctab Heart: S1S2, no murmur Abdomen: soft, bowel sounds heard, NT Integumentary: no obvious rash Neurologic: alert, not following any command Ext: LE edema Subjective Date of service: 04/07/22 Principal diagnosis: anemia Objective - Vital Signs Vital signs: Vital Signs - 12hr 04/06/22 04/06/22 04/06/22 22:00 22:21 22:27 Temperature 99.6 F Pulse Rate 72 75 Respiratory 24 Rate Blood Pressure 143/74 143/74 Blood Pressure [Left] O2 Sat by Pulse 96 96 Oximetry 04/07/22 05:29 Temperature 98.6 F Pulse Rate 79 Respiratory 24 Rate Blood Pressure Blood Pressure 139/71 [Left] O2 Sat by Pulse 96 Oximetry - Lab 04/05/22 05:06 04/07/22 08:20 Most recent lab results Calcium 9.7 mg/dL (8.4-10.2) 04/06/22 05:46 Magnesium 2.00 mg/dL (1.7-2.3) 04/05/22 05:06 Urine Creatinine 82.0 mg/dL (0.1-20.0) H 04/05/22 18:16 Urine Sodium 107 mmol/L 04/05/22 18:16 Medications & Allergies - Medications Allergies/Adverse Reactions: Allergies lisinopril Allergy (Verified 03/31/22 07:48) Hives Home Medications: Home Medications Medication Instructions Recorded Confirmed Last Taken Type Tamsulosin [Flomax] 0.4 mg PO QDAY #7 cap 08/28/15 03/16/22 Unknown Rx AtorvaSTATin [Lipitor] 40 mg PO QHS 03/11/22 03/16/22 Unknown History metHOTREXate sodium [Methotrexate] 15 mg PO 1XW 03/11/22 03/16/22 Unknown History predniSONE 10 mg PO BID 03/16/22 03/16/22 Unknown History Amiodarone [Cordarone 200 MG TAB] 200 mg PO BID tablet 03/23/22 Unknown Rx Apixaban [Eliquis] 5 mg PO Q12HR tablet 03/23/22 Unknown Rx Aspirin [Aspirin BABY CHEW TAB] 81 mg PO QDAY tab.chew 03/23/22 Unknown Rx Doxazosin [Cardura] 4 mg PO QDAY tablet 03/23/22 Unknown Rx Famotidine [Pepcid] 20 mg PO DAILY tablet 03/23/22 Unknown Rx Metoprolol [Lopressor TAB] 100 mg PO BID tablet 03/23/22 Unknown Rx Nicotine [Habitrol] 21 mg TD QDAY patch 03/23/22 Unknown Rx QUEtiapine [SEROquel] 50 mg PO QHS tablet 03/23/22 Unknown Rx amLODIPine 10 mg PO DAILY #30 tab 03/24/22 Unknown Rx Active Medications: Generic Name Dose Route Start Last Admin Trade Name Freq PRN Reason Stop Dose Admin Acetaminophen 650 mg 03/31/22 13:31 04/06/22 12:07 Acetaminophen 325 Mg Tab PO 650 mg Q4H PRN Administration Pain MILD(1-3)/Fever >100.5/[place] Amiodarone HCl 200 mg 03/31/22 22:00 04/06/22 22:27 Amiodarone 200 Mg Tab PO 200 mg BID FRANCESCA Administration Aspirin 81 mg 04/01/22 10:00 04/06/22 12:06 Aspirin 81 Mg Tab Chew PO 81 mg QDAY FRANCESCA Administration Atorvastatin Calcium 40 mg 03/31/22 22:00 04/06/22 22:27 Atorvastatin 40 Mg Tab PO 40 mg QHS FRANCESCA Administration Doxazosin Mesylate 4 mg 04/01/22 10:00 04/06/22 12:07 Doxazosin 4 Mg Tab PO 4 mg QDAY FRANCESCA Administration Famotidine 20 mg 04/05/22 12:00 04/06/22 12:07 Famotidine 20 Mg Tab PO 20 mg DAILY FRANCESCA Administration Methotrexate 15 mg 04/07/22 14:00 Methotrexate 2.5 Mg Tab (Dose Weekly Only) PO Th [facility] Metoprolol Tartrate 100 mg 03/31/22 22:00 04/06/22 22:27 Metoprolol Tartrate 100 Mg Tab PO 100 mg BID FRANCESCA Administration Morphine Sulfate 2 mg 03/31/22 13:31 04/06/22 05:35 Morphine 2 Mg/1 Ml Inj IV 2 mg Q4H PRN Administration Pain, Moderate (4-6) Morphine Sulfate 4 mg 03/31/22 13:31 Morphine 4 Mg/1 Ml Inj IV Q4H PRN Pain , Severe (7-10) Ondansetron HCl 4 mg 03/31/22 13:31 Ondansetron 4 Mg/2 Ml Inj IV Q8H PRN Nausea And Vomiting Pantoprazole Sodium 40 mg 04/04/22 18:04 04/06/22 22:26 Pantoprazole 40 Mg Inj IV 40 mg BID FRANCESCA Administration Quetiapine Fumarate 50 mg 03/31/22 22:00 04/06/22 22:28 Quetiapine 25 Mg Tab PO 50 mg QHS FRANCESCA Administration Sodium Bicarbonate 650 mg 04/06/22 11:00 04/06/22 22:28 Sodium Bicarbonate 650 Mg Tab PO 650 mg BID FRANCESCA Administration Sodium Chloride 10 ml 03/31/22 22:00 04/06/22 22:29 Sodium Chloride 0.9% 10 Ml Flush Syringe IV 10 ml BID FRANCESCA Administration Sodium Chloride 10 ml 03/31/22 13:31 04/03/22 00:54 Sodium Chloride 0.9% 10 Ml Flush Syringe IV 10 ml PRN PRN Administration LINE FLUSH Tamsulosin HCl 0.4 mg 04/01/22 10:00 04/06/22 12:09 Tamsulosin 0.4 Mg Cap PO 0.4 mg QDAY FRANCESCA Administration
[2022-04-07] MEDS: FAMOTIDINE 20 MG TAB PO SCH (10:00)
[2022-04-07] MEDS: DOXAZOSIN 4 MG TAB PO SCH (10:00)
[2022-04-07] MEDS: METOPROLOL TARTRATE 100 MG TAB PO SCH ×2 (10:00→22:25)
[2022-04-07] MEDS: ASPIRIN 81 MG TAB CHEW PO SCH (10:00)
[2022-04-07] MEDS: TAMSULOSIN 0.4 MG CAP PO SCH (10:00)
[2022-04-07] MEDS: AMIODARONE 200 MG TAB PO SCH ×2 (10:00→22:25)
[2022-04-07] MEDS: SODIUM BICARBONATE 650 MG TAB PO SCH ×2 (10:00→22:24)
[2022-04-07] MEDS: PANTOPRAZOLE 40 MG INJ IV SCH ×2 (10:02→22:24)
[2022-04-07] MEDS ORDERED: SODIUM CHLORIDE 0.9% 1000 ML 1,000 ML IV SCH (10:15)
--- NOTE | 2022-04-07 12:37 | Progress Note ---
Assessment and Plan Cultures: COVID-19 PCR: Negative 03/31/2022 blood culture: No growth 04/01/2022 urine culture: VRE - Enterococcus faecium A/P: 67-year-old male with CAD, CKD, atrial fibrillation, vascular dementia was admitted to the hospital on 03/31/2022 with fever and shortness of breath: #Sepsis, likely secondary to pneumonia: repeat CXR with some interval improvement. Leukocytosis has improved. Afebrile, completed empiric antibiotic course. #VRE UTI: Asymptomatic bacteriuria, UA without any significant pyuria reflect colonization. No treatment indicated. #MARIE v/s CKD: Nephrology on board. 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 Unclear indication. #Dementia Recs: -remains off abx since 04/05/2022 Juanis Greco MD, FACP, [facility] O: [phone] F: [phone] C: [phone] Subjective Date of service: 04/07/22 Principal diagnosis: anemia Interval history: No fever. Remains lying in bed, has oxygen on, opens eyes but doesn't talk much. Objective - Exam Narrative Exam: Physical Exam: Constitutional: Awake, does not communicate Head, Ears, Nose: Normocephalic, atraumatic. External ears, nose normal Eyes: Conjunctivae/corneas clear. No icterus. No ptosis. Neck: Supple, no meningeal signs Cardiovascular: S1, S2 + Respiratory: AE fair bilaterally GI: Soft, non-tender; bowel sounds normal. No peritoneal signs Musculoskeletal: No pedal edema, no cyanosis. Skin: No rash or abscess Hem/Lymphatic: No palpable cervical or supraclavicular nodes. No lymphangitis Psych: No agitation Neurological: Awake, does not communicate - Constitutional Vitals: Vital Signs Temp Pulse Resp BP Pulse Ox 98.6 F 79 24 139/71 96 04/07/22 05:29 04/07/22 05:29 04/07/22 05:29 04/07/22 05:29 04/07/22 05:29 Temperature -Last 24 Hours Temperature 98.6 F Temperature 99.6 F Temperature 97.4 F - Labs CBC & Chem 7: 04/05/22 05:06 04/07/22 08:20 Labs: Abnormal lab results 04/07/22 Range/Units 08:20 Sodium 149 H (137-145) mmol/L Chloride 118.1 H (98-107) mmol/L Carbon Dioxide 19 L (22-30) mmol/L BUN 30 H (9-20) mg/dL Creatinine 3.2 H (0.8-1.3) mg/dL Glucose 72 L (75-100) mg/dL
--- NOTE | 2022-04-07 13:50 | Gastroenterology Progress Note ---
Assessment and Plan anemia with heme positive stool - no overt gi bleeding, stable H/H, unable to proceed with procedures given mental status/inability to take prep. cont PPI for PUD ppx, will sign off, please call as needed or changes in clinical course Subjective Date of service: 04/07/22 Principal diagnosis: anemia Interval history: worsening mentation, was not able to do prep for procedure Objective - Exam Narrative Exam: gen: nad, lethargic cv: rrr abd: soft, nt - Constitutional Vitals: Temp Pulse Resp BP Pulse Ox 99.7 F H 89 24 122/73 100 04/07/22 11:14 04/07/22 11:14 04/07/22 11:14 04/07/22 11:14 04/07/22 11:14 - Labs CBC & Chem 7: 04/05/22 05:06 04/07/22 08:20 Labs: Laboratory Results - last 24 hr 04/06/22 04/06/22 04/07/22 12:28 17:01 08:07 Sodium Potassium Chloride Carbon Dioxide Anion Gap BUN Creatinine Estimated GFR BUN/Creatinine Ratio Glucose POC Glucose 82 84 80 Calcium 04/07/22 04/07/22 08:20 11:11 Sodium 149 H Potassium 4.5 Chloride 118.1 H Carbon Dioxide 19 L Anion Gap 16 BUN 30 H Creatinine 3.2 H Estimated GFR 24 BUN/Creatinine Ratio 9 Glucose 72 L POC Glucose 70 Calcium 10.0
[2022-04-07] MEDS: metHOTREXate 2.5 MG TAB (DOSE WEEKLY ONLY) PO SCH (14:00)
--- NOTE | 2022-04-07 14:35 | Progress Note ---
Assessment and Plan The patient is a 67-year-old male with CAD, CKD, atrial fibrillation, vascular dementia was admitted to the hospital on 03/31/2022 with complaints of fever and shortness of breath of 3 days. Upon evaluation in the ED, T-max of 102.8 F. Also with atrial fibrillation with rapid ventricular rate, leukocytosis. Admitted due to concerns for sepsis from pneumonia. Was started on empiric antibiotics. Urine culture growing VRE.. Echo showed EF of 25 to 30%, cardiology following. Initial chest x-ray on 03/31/2022 showed left upper lobe pneumonia. Interval improvement noted on chest x-ray from 04/03/2022. 04/01/2020; patient is febrile, mild distress, on Vanco and cefepime, follow cultures 04/02; patient's hemoglobin dropped to 6.8, 1 unit PRBC transfusion, Eliquis held, follow stool guaiac Cardiology recommendations noted and appreciated 04/03; received 1 unit PRBC yesterday, Hb today 7.2, closely monitor 04/04; patient completed 5 days of Vanco and cefepime for HCAP Urine cultures positive for VRE, add Zyvox 600 mg IV every 12 Contact isolation, ID consulted 04/05: Final ID no antibiotic treatment necessary for VRE as that could be colonization. Continue to monitor for renal function improvement. Plan for colonoscopy on . Continue to monitor H&H. 04/06: Continue to follow serum creatinine, plan for colonoscopy tomorrow. Follow H&H. Patient also needs placement 04/07: Planned for colonoscopy but patient could not complete bowel prep due to underlying dementia and metabolic encephalopathy Continue supportive care, continue to monitor H&H. Pending placement. Continue to follow renal function. Creatinine 3.2 today with sodium 148. Off Lasix. Repeat BMP tomorrow. Assessment and plan: -- MARIE on chronic kidney disease; likely due to vasomotor nephropathy Closely monitor renal function, avoid nephrotoxin Nephrology consulted, --Hypernatremia, follow BMP, hold Lasix --Anemia; Hb 6.8-7.2 Received 1 unit of PRBC today, Eliquis held closely monitor transfuse additional PRBC as needed Plan for colonoscopy on Stool for occult blood is positive GI; evaluated the patient, as patient is septic Planned for colonoscopy but patient could not complete bowel prep due to underlying dementia and metabolic encephalopathy Continue supportive care, continue to monitor H&H -- A. fib with rapid ventricular rate; rate controlled Continue amiodarone, metoprolol Eliquis held due to anemia, heme positive stool, GI consult Cardiology evaluation noted and appreciated Follow-up stool for occult blood -- Acute on chronic systolic congestive heart failure; LVEF 25 to 30% Diuretics as needed, beta-blockers, no NATALYA inhibitors in view of acute kidney injury Input output monitoring, fluid restriction, supportive care --Non-ST elevation [place]; probably type II Serial cardiac enzymes, serial EKG However patient has multiple risk factors Resume home cardiac medications Cardiology consulted -- Febrile illness; PUI/COVID-19 negative Negative COVID test Persistent fever probably due to UTI/hospital-acquired pneumonia Isolation, elizondo PCR test, supportive care -- Pneumonia; hospital-acquired pneumonia Empiric antibiotics Vanco cefepime[completed 5 days] Blood cultures negative to date --Urinary tract infection; present on admission Cultures positive for VRE , contact isolation S/p Zyvox 600 mg IV every 12 hours ID consulted -- Sepsis; due to urinary tract infection, hospital-acquired pneumonia Completed 5 days of cefepime and Vanco - Metabolic encephalopathy/dementia Supportive care, treat the underlying cause --Severe protein calorie malnutrition; Nutrition supplements, supportive care Nutrition consult --Severe hypoalbuminemia; albumin 2.8 Nutrition supplements, supportive care -- Nicotine dependence; Smoking cessation counseling Nicotine patch as needed --Immunocompromised host: Seems to be on methotrexate and prednisone as per his home medications. Unclear indication. --Full CODE STATUS -- DVT prophylaxis; Patient is on Eliquis, which is now on hold Disposition; follow clinically follow consultants recommendation, discharge when stable Subjective Date of service: 04/07/22 Principal diagnosis: anemia Interval history: Patient seen and examined. Medical records and medication list reviewed. No acute event overnight noted by the RN. Endoscopy postponed it as patient could not complete bowel prep Discussed plan of care at bedside with patient's RN. Objective - Exam Narrative Exam: GENERAL: well-developed and well-nourished -[place] male lying on bed appeared to be in no discomfort. HEENT: Normocephalic. Atraumatic. No conjunctival congestion or icterus. Patient has moist mucous membranes. NECK: Supple. Trachea midline. CHEST/LUNGS: Clear to auscultated bilaterally, breathing nonlabored. No wheezes crackles or rhonchi. HEART/CARDIOVASCULAR: Regular in rate and rhythm. S1 and S2 positive. ABDOMEN: Abdomen is soft, nontender. Patient has normal bowel sounds. SKIN: There is no rash. Warm and dry. NEURO: Generalized weakness, does not move extremities. Only speaks few words MUSCULOSKELETAL: No joint effusion or tenderness. EXTRIMITY: No edema, no cyanosis or clubbing. PSYCH: Cooperative but lethargic. - Constitutional Vitals: Vital Signs - 12hr 04/07/22 04/07/22 05:29 11:14 Temperature 98.6 F 99.7 F H Pulse Rate 79 89 Respiratory 24 24 Rate Blood Pressure 122/73 Blood Pressure 139/71 [Left] O2 Sat by Pulse 96 100 Oximetry - Labs CBC & Chem 7: 04/09/22 04:30 04/10/22 04:19 Labs: Abnormal lab results 04/07/22 Range/Units 08:20 Sodium 149 H (137-145) mmol/L Chloride 118.1 H (98-107) mmol/L Carbon Dioxide 19 L (22-30) mmol/L BUN 30 H (9-20) mg/dL Creatinine 3.2 H (0.8-1.3) mg/dL Glucose 72 L (75-100) mg/dL HEART Score - HEART Score Troponin: Troponin T 0.135 ng/mL (0.00-0.029) H* 04/03/22 12:29
--- NOTE | 2022-04-07 15:17 | Progress Note ---
Assessment and Plan Patient is a 67-year-old male with a past medical history of cardiomyopathy (EF 25 to 30%), A. fib, CKD, hypertension, and dementia who was brought to the ED by EMS for fever and SOB x3 days. Sepsis PNA VRE-ID following NSTEMI suspect type II MARIE on CKD-nephrology follow Cardiomyopathy A. fib Hypertension GI bleed?-GI bilateral Anemia Vascular dementia Echo 03/09/2022-EF 25 to 30%. Severe global hypokinesis of left ventricle. Moderate concentric LVH. Mild diastolic dysfunction is present impaired relaxation pattern. Moderate aortic regurgitation. No pericardial effusion Plan: EGD colonoscopy canceled due to patient mental status and inability to take prep Troponins noted to be elevated however suspect NSTEMI type II in setting of sepsis and MARIE on CKD Recommend conservative cardiac mgmt recommended in light of patient's mental status Telemetry reviewed : Remained sinus rhythm with PACs Continue Amio 200mg PO BID, metoprolol 100mg PO BID, aspirin, and statin Patient H&H noted to drop requiring blood transfusion after being on Eliquis will hold anticoagulation Patient does not appear to be a candidate for anticoagulation due to anemia with positive occult blood Will hold NATALYA and ARB due to elevated creatinine and documented allergy At this time no cardiac contraindications to GI intervention for possible EGD/colonoscopy Cardiac status otherwise stable we will see as needed Patient seen in conjunction with Dr. Nuñez who agrees with this plan of care - Patient Problems (1) Sepsis Current Visit: Yes Status: Acute (2) MARIE (acute kidney injury) Current Visit: No Status: Acute (3) Anemia Current Visit: Yes Status: Acute (4) CKD (chronic kidney disease) Current Visit: No Status: Acute (5) Cardiomyopathy Current Visit: Yes Status: Chronic (6) Elevated troponin Current Visit: No Status: Acute (7) PNA (pneumonia) Current Visit: Yes Status: Acute Qualifiers: Pneumonia type: aspiration pneumonia (8) Vascular dementia Current Visit: Yes Status: Chronic Qualifiers: Dementia behavioral disturbance: with behavioral disturbance Qualified Code(s): F01.51 - Vascular dementia with behavioral disturbance Subjective Date of service: 04/07/22 Principal diagnosis: anemia Interval history: Patient resting in bed in no acute distress. Remains with altered mental Patient main sinus rhythm 70s to 80s with PACs on monitor Objective Vital Signs Temp Pulse Resp BP BP Pulse Ox 04/07/22 11:14 99.7 F H 89 24 122/73 100 04/07/22 10:00 96 04/07/22 05:29 98.6 F 79 24 139/71 96 04/06/22 22:27 75 143/74 04/06/22 22:21 99.6 F 72 24 143/74 96 04/06/22 22:00 96 04/06/22 17:03 97.4 F L 71 24 125/69 97 - Physical Examination General: No Apparent Distress HEENT: Positive: EOMI, Normocephaly, Mucus Membranes Moist, Mucus Membranes Dry Neck: Positive: neck supple, trachea midline Cardiac: Positive: Reg Rate and Rhythm Lungs: Positive: Normal Breath Sounds Neuro: Positive: Grossly Intact Abdomen: Positive: Soft, Active Bowel Sounds. Negative: Tender Skin: Negative: Rash Musculoskeletal: No Fluid Collection Extremities: Present: upper extr. pulses, edema (Upper right extra) - Labs and Meds Comprehensive Metabolic Panel 04/07/22 Range/Units 08:20 Sodium 149 H (137-145) mmol/L Potassium 4.5 (3.6-5.0) mmol/L Chloride 118.1 H (98-107) mmol/L Carbon Dioxide 19 L (22-30) mmol/L BUN 30 H (9-20) mg/dL Creatinine 3.2 H (0.8-1.3) mg/dL Glucose 72 L (75-100) mg/dL Calcium 10.0 (8.4-10.2) mg/dL - Imaging and Cardiology Echo: report reviewed - Telemetry EKG Rhythm: Sinus Rhythm - EKG Sinus rhythms and dysrhythmias: sinus rhythm Chamber hypertrophy or enlargement: left ventricular hypertro
[2022-04-07] MEDS: ACETAMINOPHEN 325 MG TAB PO PRN (17:06)
[2022-04-07] MEDS: QUEtiapine 25 MG TAB PO SCH (22:25)
[2022-04-08 05:37] LABS: Calcium 9.7 mg/dL (8.4-10.2)
--- NOTE | 2022-04-08 08:33 | Progress Note ---
Assessment and Plan 1. Acute kidney injury: Vasomotor MARIE superimposed on CKD in the setting of sepsis/CHF/A.Fib with RVR. Renal US negative. Monitor renal function. Creatinine level increasing. Renal prognosis is guarded. Avoid nephrotoxic agents. Meds dosage based on GFR. 2. FEN: Hypernatremia, monitor. Hyperchloremic metabolic acidosis, Sod bicarb, monitor. Replete lytes as needed. Monitor lytes and volume status. 3. A.fib with RVR: Amio and Metoprolol. Followed by Cards. Monitor. 4. Acute on chronic systolic congestive heart failure / Non-STEMI: LVEF 25 to 30%. Beta-blockers. Monitor. Followed by Cards. 5. HCAP / UTI / Sepsis: Followed by ID. 6. Acute metabolic encephalopathy, POA: H/o Dementia. Monitor. 7. Microcytic Anemia, POA: Heme positive stool. Trend. Followed by GI. Subjective: Patient was seen and examined at the bedside. Examination: General appearance: well-developed, appears stated age, no distress HEENT: atraumatic, no icterus Neck: trachea midline Respiratory: ctab Heart: S1S2, no murmur Abdomen: soft, bowel sounds heard, NT Integumentary: no obvious rash Neurologic: alert, not following any command Ext: LE edema Subjective Date of service: 04/08/22 Principal diagnosis: anemia Objective - Vital Signs Vital signs: Vital Signs - 12hr 04/07/22 04/07/22 04/07/22 22:00 22:19 22:25 Temperature 98.1 F Pulse Rate 93 H 93 H Respiratory 17 19 Rate Respiratory 17 Rate [ Generalized] Blood Pressure 145/72 145/72 O2 Sat by Pulse 99 99 Oximetry 04/08/22 03:53 Temperature 98.4 F Pulse Rate 74 Respiratory 18 Rate Respiratory Rate [ Generalized] Blood Pressure 135/68 O2 Sat by Pulse 100 Oximetry - Lab 04/09/22 04:30 04/09/22 04:30 Most recent lab results Calcium 9.7 mg/dL (8.4-10.2) 04/08/22 04:47 Magnesium 2.00 mg/dL (1.7-2.3) 04/05/22 05:06 Urine Creatinine 82.0 mg/dL (0.1-20.0) H 04/05/22 18:16 Urine Sodium 107 mmol/L 04/05/22 18:16 Medications & Allergies - Medications Allergies/Adverse Reactions: Allergies lisinopril Allergy (Verified 03/31/22 07:48) Hives Home Medications: Home Medications Medication Instructions Recorded Confirmed Last Taken Type Tamsulosin [Flomax] 0.4 mg PO QDAY #7 cap 08/28/15 04/08/22 Unknown Rx AtorvaSTATin [Lipitor] 40 mg PO QHS 03/11/22 04/08/22 Unknown History metHOTREXate sodium [Methotrexate] 15 mg PO 1XW 03/11/22 04/08/22 Unknown History predniSONE 10 mg PO BID 03/16/22 04/08/22 Unknown History Amiodarone [Cordarone 200 MG TAB] 200 mg PO BID tablet 03/23/22 04/08/22 Unknown Rx Apixaban [Eliquis] 5 mg PO Q12HR tablet 03/23/22 04/08/22 Unknown Rx Aspirin [Aspirin BABY CHEW TAB] 81 mg PO QDAY tab.chew 03/23/22 04/08/22 Unknown Rx Doxazosin [Cardura] 4 mg PO QDAY tablet 03/23/22 04/08/22 Unknown Rx Famotidine [Pepcid] 20 mg PO DAILY tablet 03/23/22 04/08/22 Unknown Rx Metoprolol [Lopressor TAB] 100 mg PO BID tablet 03/23/22 04/08/22 Unknown Rx Nicotine [Habitrol] 21 mg TD QDAY patch 03/23/22 04/08/22 Unknown Rx QUEtiapine [SEROquel] 50 mg PO QHS tablet 03/23/22 04/08/22 Unknown Rx amLODIPine 10 mg PO DAILY #30 tab 03/24/22 04/08/22 Unknown Rx Active Medications: Generic Name Dose Route Start Last Admin Trade Name Freq PRN Reason Stop Dose Admin Acetaminophen 650 mg 03/31/22 13:31 04/07/22 17:06 Acetaminophen 325 Mg Tab PO 650 mg Q4H PRN Administration Pain MILD(1-3)/Fever >100.5/[place]ILTON Amiodarone HCl 200 mg 03/31/22 22:00 04/07/22 22:25 Amiodarone 200 Mg Tab PO 200 mg BID FRANCESCA Administration Aspirin 81 mg 04/01/22 10:00 04/07/22 10:00 Aspirin 81 Mg Tab Chew PO Not Given QDAY FRANCESCA Atorvastatin Calcium 40 mg 03/31/22 22:00 04/07/22 22:25 Atorvastatin 40 Mg Tab PO 40 mg QHS FRANCESCA Administration Doxazosin Mesylate 4 mg 04/01/22 10:00 04/07/22 10:00 Doxazosin 4 Mg Tab PO Not Given QDAY FRANCESCA Famotidine 20 mg 04/05/22 12:00 04/07/22 10:00 Famotidine 20 Mg Tab PO Not Given DAILY FRANCESCA Sodium Chloride 1,000 mls @ 42 mls/hr 04/07/22 10:15 04/07/22 16:59 Nacl 0.9% 1000 Ml IV 42 mls/hr DIRECT FRANCESCA Administration Methotrexate 15 mg 04/07/22 14:00 04/07/22 14:00 Methotrexate 2.5 Mg Tab (Dose Weekly Only) PO 15 mg Th FRANCESCA Administration Metoprolol Tartrate 100 mg 03/31/22 22:00 04/07/22 22:25 Metoprolol Tartrate 100 Mg Tab PO 100 mg BID FRANCESCA Administration Morphine Sulfate 2 mg 03/31/22 13:31 04/06/22 05:35 Morphine 2 Mg/1 Ml Inj IV 2 mg Q4H PRN Administration Pain, Moderate (4-6) Morphine Sulfate 4 mg 03/31/22 13:31 Morphine 4 Mg/1 Ml Inj IV Q4H PRN Pain , Severe (7-10) Ondansetron HCl 4 mg 03/31/22 13:31 Ondansetron 4 Mg/2 Ml Inj IV Q8H PRN Nausea And Vomiting Pantoprazole Sodium 40 mg 04/04/22 18:04 04/07/22 22:24 Pantoprazole 40 Mg Inj IV 40 mg BID FRANCESCA Administration Quetiapine Fumarate 50 mg 03/31/22 22:00 04/07/22 22:25 Quetiapine 25 Mg Tab PO 50 mg QHS FRANCESCA Administration Sodium Bicarbonate 650 mg 04/06/22 11:00 04/07/22 22:24 Sodium Bicarbonate 650 Mg Tab PO 650 mg BID FRANCESCA Administration Sodium Chloride 10 ml 03/31/22 22:00 04/07/22 22:26 Sodium Chloride 0.9% 10 Ml Flush Syringe IV 10 ml BID FRANCESCA Administration Sodium Chloride 10 ml 03/31/22 13:31 04/03/22 00:54 Sodium Chloride 0.9% 10 Ml Flush Syringe IV 10 ml PRN PRN Administration LINE FLUSH Tamsulosin HCl 0.4 mg 04/01/22 10:00 04/07/22 10:00 Tamsulosin 0.4 Mg Cap PO Not Given QDAY FRANCESCA
[2022-04-08] MEDS: FAMOTIDINE 20 MG TAB PO SCH (09:50)
[2022-04-08] MEDS: TAMSULOSIN 0.4 MG CAP PO SCH (09:50)
[2022-04-08] MEDS: SODIUM BICARBONATE 650 MG TAB PO SCH ×2 (09:50→21:46)
[2022-04-08] MEDS: AMIODARONE 200 MG TAB PO SCH ×2 (09:50→21:46)
[2022-04-08] MEDS: PANTOPRAZOLE 40 MG INJ IV SCH (09:50)
[2022-04-08] MEDS: ASPIRIN 81 MG TAB CHEW PO SCH (09:50)
[2022-04-08] MEDS: METOPROLOL TARTRATE 100 MG TAB PO SCH ×2 (09:54→21:46)
[2022-04-08] MEDS: DOXAZOSIN 4 MG TAB PO SCH (09:54)
[2022-04-08] MEDS: FOLIC ACID 1 MG TAB PO SCH (10:32)
--- NOTE | 2022-04-08 10:50 | Progress Note ---
Assessment and Plan Cultures: COVID-19 PCR: Negative 03/31/2022 blood culture: No growth 04/01/2022 urine culture: VRE - Enterococcus faecium A/P: 67-year-old male with CAD, CKD, atrial fibrillation, vascular dementia was admitted to the hospital on 03/31/2022 with fever and shortness of breath: #Sepsis, likely secondary to pneumonia: repeat CXR with some interval improvement. Leukocytosis has improved. Afebrile, completed empiric antibiotic course. #VRE UTI: Asymptomatic bacteriuria, UA without any significant pyuria reflect colonization. No treatment indicated. #MARIE v/s CKD: Nephrology on board. 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 Unclear indication. #Dementia Recs: -remains off abx since 04/05/2022. -Low grade temp yesterday, if he spikes a fever >101F, reculture blood, urine and check CXR and then restart IV Cefepime 1 gm daily + Linezolid 600 mg BID -CBC ordered for AM Juanis Greco MD, FACP, [facility] ([facility] O: [phone] F: [phone] C: [phone] Subjective Date of service: 04/08/22 Principal diagnosis: anemia Interval history: Awake, alert. Friend is at bedside. Poor historian. Friend denies any observation of cough or shortness of breath. T-max yesterday evening was 100.5 F, afebrile today Objective - Exam Narrative Exam: Physical Exam: Constitutional: Awake, minimal communication Head, Ears, Nose: Normocephalic, atraumatic. External ears, nose normal Eyes: Conjunctivae/corneas clear. No icterus. No ptosis. Neck: Supple, no meningeal signs Cardiovascular: S1, S2 + Respiratory: AE fair bilaterally GI: Soft, non-tender; bowel sounds normal. No peritoneal signs. Condom cath + Musculoskeletal: No pedal edema, no cyanosis. Skin: No rash or abscess Hem/Lymphatic: No palpable cervical or supraclavicular nodes. No lymphangitis Psych: No agitation Neurological: Awake, minimal communication - Constitutional Vitals: Vital Signs Temp Pulse Resp BP Pulse Ox 98.4 F 74 18 135/68 100 04/08/22 03:53 04/08/22 03:53 04/08/22 03:53 04/08/22 03:53 04/08/22 03:53 Temperature -Last 24 Hours Temperature 98.4 F Temperature 98.1 F Temperature 100.5 F Temperature 99.7 F - Labs CBC & Chem 7: 04/05/22 05:06 04/08/22 04:47 Labs: Abnormal lab results 04/08/22 Range/Units 04:47 Sodium 148 H (137-145) mmol/L Chloride 118.5 H (98-107) mmol/L Carbon Dioxide 20 L (22-30) mmol/L BUN 32 H (9-20) mg/dL Creatinine 3.2 H (0.8-1.3) mg/dL
[2022-04-08] MEDS: PANTOPRAZOLE 40 MG TAB PO SCH (17:23)
[2022-04-08] MEDS: DEXTROSE 5% IN WATER 1,000 ML IV SCH (20:14)
[2022-04-08] MEDS: ACETAMINOPHEN 325 MG TAB PO PRN (21:45)
[2022-04-08] MEDS: QUEtiapine 25 MG TAB PO SCH (21:46)
--- NOTE | 2022-04-08 22:31 | Progress Note ---
Assessment and Plan The patient is a 67-year-old male with CAD, CKD, atrial fibrillation, vascular dementia was admitted to the hospital on 03/31/2022 with complaints of fever and shortness of breath of 3 days. Upon evaluation in the ED, T-max of 102.8 F. Also with atrial fibrillation with rapid ventricular rate, leukocytosis. Admitted due to concerns for sepsis from pneumonia. Was started on empiric antibiotics. Urine culture growing VRE.. Echo showed EF of 25 to 30%, cardiology following. Initial chest x-ray on 03/31/2022 showed left upper lobe pneumonia. Interval improvement noted on chest x-ray from 04/03/2022. 04/01/2020; patient is febrile, mild distress, on Vanco and cefepime, follow cultures 04/02; patient's hemoglobin dropped to 6.8, 1 unit PRBC transfusion, Eliquis held, follow stool guaiac Cardiology recommendations noted and appreciated 04/03; received 1 unit PRBC yesterday, Hb today 7.2, closely monitor 04/04; patient completed 5 days of Vanco and cefepime for HCAP Urine cultures positive for VRE, add Zyvox 600 mg IV every 12 Contact isolation, ID consulted 04/05: Final ID no antibiotic treatment necessary for VRE as that could be colonization. Continue to monitor for renal function improvement. Plan for colonoscopy on . Continue to monitor H&H. 04/06: Continue to follow serum creatinine, plan for colonoscopy tomorrow. Follow H&H. Patient also needs placement 04/07: Planned for colonoscopy but patient could not complete bowel prep due to underlying dementia and metabolic encephalopathy Continue supportive care, continue to monitor H&H. Pending placement. Continue to follow renal function. Creatinine 3.2 today with sodium 148. Off Lasix. Repeat BMP tomorrow. 04/08; sodium and creatinine level further increased today. We will start on low volume D5 W. Repeat BMP in the morning, follow urine output. Discussed plan of care with nephrology. Guarded prognosis. Assessment and plan: -- MARIE on chronic kidney disease; likely due to vasomotor nephropathy Closely monitor renal function, avoid nephrotoxin Nephrology consulted, --Hypernatremia, follow BMP, hold Lasix --Anemia; Hb 6.8-7.2 Received 1 unit of PRBC today, Eliquis held closely monitor transfuse additional PRBC as needed Plan for colonoscopy on Stool for occult blood is positive GI; evaluated the patient, as patient is septic Planned for colonoscopy but patient could not complete bowel prep due to underlying dementia and metabolic encephalopathy Continue supportive care, continue to monitor H&H -- A. fib with rapid ventricular rate; rate controlled Continue amiodarone, metoprolol Eliquis held due to anemia, heme positive stool, GI consult Cardiology evaluation noted and appreciated Follow-up stool for occult blood -- Acute on chronic systolic congestive heart failure; LVEF 25 to 30% Diuretics as needed, beta-blockers, no NATALYA inhibitors in view of acute kidney i njury Input output monitoring, fluid restriction, supportive care --Non-ST elevation [place]; probably type II Serial cardiac enzymes, serial EKG However patient has multiple risk factors Resume home cardiac medications Cardiology consulted -- Febrile illness; PUI/COVID-19 negative Negative COVID test Persistent fever probably due to UTI/hospital-acquired pneumonia Isolation, elizondo PCR test, supportive care -- Pneumonia; hospital-acquired pneumonia Empiric antibiotics Vanco cefepime[completed 5 days] Blood cultures negative to date --Urinary tract infection; present on admission Cultures positive for VRE , contact isolation S/p Zyvox 600 mg IV every 12 hours ID consulted -- Sepsis; due to urinary tract infection, hospital-acquired pneumonia Completed 5 days of cefepime and Vanco - Metabolic encephalopathy/dementia Supportive care, treat the underlying cause --Severe protein calorie malnutrition; Nutrition supplements, supportive care Nutrition consult --Severe hypoalbuminemia; albumin 2.8 Nutrition supplements, supportive care -- Nicotine dependence; Smoking cessation counseling Nicotine patch as needed --Immunocompromised host: Seems to be on methotrexate and prednisone as per his home medications. Unclear indication. --Full CODE STATUS -- DVT prophylaxis; Patient is on Eliquis, which is now on hold Disposition; follow clinically follow consultants recommendation, discharge when stable Subjective Date of service: 04/08/22 Principal diagnosis: anemia Interval history: Patient seen and examined. Medical records and medication list reviewed. No acute event overnight noted by the RN. Continue to have elevated serum creatinine and sodium level Discussed plan of care with RN Patient appears to be more lethargic today Objective - Exam Narrative Exam: GENERAL: well-developed and well-nourished -[place] male lying on bed appeared to be in no discomfort. HEENT: Normocephalic. Atraumatic. No conjunctival congestion or icterus. Patient has moist mucous membranes. NECK: Supple. Trachea midline. CHEST/LUNGS: Clear to auscultated bilaterally, breathing nonlabored. No wheezes crackles or rhonchi. HEART/CARDIOVASCULAR: Regular in rate and rhythm. S1 and S2 positive. ABDOMEN: Abdomen is soft, nontender. Patient has normal bowel sounds. SKIN: There is no rash. Warm and dry. NEURO: Generalized weakness, does not move extremities. Only speaks few words MUSCULOSKELETAL: No joint effusion or tenderness. EXTRIMITY: No edema, no cyanosis or clubbing. PSYCH: Cooperative but lethargic. - Constitutional Vitals: Vital Signs - 12hr 04/08/22 04/08/22 04/08/22 21:29 21:45 21:46 Temperature 101.1 F H Pulse Rate 90 90 Respiratory 20 18 Rate Blood Pressure 128/70 O2 Sat by Pulse 97 Oximetry - Labs CBC & Chem 7: 04/09/22 04:30 04/10/22 04:19 Labs: Abnormal lab results 04/08/22 Range/Units 04:47 Sodium 148 H (137-145) mmol/L Chloride 118.5 H (98-107) mmol/L Carbon Dioxide 20 L (22-30) mmol/L BUN 32 H (9-20) mg/dL Creatinine 3.2 H (0.8-1.3) mg/dL HEART Score - HEART Score Troponin: Troponin T 0.135 ng/mL (0.00-0.029) H* 04/03/22 12:29
[2022-04-09 05:45] LABS: Calcium 9.8 mg/dL (8.4-10.2)
[2022-04-09 05:51] LABS: Basophils % (Auto) 0.7 % (0.0-1.8); Eosinophils # (Auto) 0.6 K/mm3 (0.0-0.4); Hemoglobin 7.4 gm/dl (11.8-15.2); Lymphocytes # (Auto) 1.4 K/mm3 (1.2-5.4); Lymphocytes % (Auto) 20.3 % (13.4-35.0); Mean Corpuscular HGB Conc 32 % (32-34); Mean Corpuscular Volume 82 fl (84-94); Monocytes # (Auto) 0.5 K/mm3 (0.0-0.8); Monocytes % (Auto) 6.9 % (0.0-7.3); Platelet Count 308 K/mm3 (140-440); Red Blood Count 2.82 M/mm3 (3.65-5.03)
[2022-04-09 05:52] LABS: Red Cell Distribution Width 20.8 % (13.2-15.2)
[2022-04-09] MEDS: AMIODARONE 200 MG TAB PO SCH ×2 (09:18→23:15)
[2022-04-09] MEDS: FOLIC ACID 1 MG TAB PO SCH (09:18)
[2022-04-09] MEDS: PANTOPRAZOLE 40 MG TAB PO SCH ×2 (09:18→19:10)
[2022-04-09] MEDS: ASPIRIN 81 MG TAB CHEW PO SCH (09:18)
[2022-04-09] MEDS: TAMSULOSIN 0.4 MG CAP PO SCH (09:18)
[2022-04-09] MEDS: SODIUM BICARBONATE 650 MG TAB PO SCH ×2 (09:18→23:14)
[2022-04-09] MEDS: DOXAZOSIN 4 MG TAB PO SCH (09:19)
[2022-04-09] MEDS: METOPROLOL TARTRATE 100 MG TAB PO SCH ×2 (09:21→23:15)
--- NOTE | 2022-04-09 12:06 | Progress Note ---
Assessment and Plan The patient is a 67-year-old male with CAD, CKD, atrial fibrillation, vascular dementia was admitted to the hospital on 03/31/2022 with complaints of fever and shortness of breath of 3 days. Upon evaluation in the ED, T-max of 102.8 F. Also with atrial fibrillation with rapid ventricular rate, leukocytosis. Admitted due to concerns for sepsis from pneumonia. Was started on empiric antibiotics. Urine culture growing VRE.. Echo showed EF of 25 to 30%, cardiology following. Initial chest x-ray on 03/31/2022 showed left upper lobe pneumonia. Interval improvement noted on chest x-ray from 04/03/2022. 04/01/2020; patient is febrile, mild distress, on Vanco and cefepime, follow cultures 04/02; patient's hemoglobin dropped to 6.8, 1 unit PRBC transfusion, Eliquis held, follow stool guaiac Cardiology recommendations noted and appreciated 04/03; received 1 unit PRBC yesterday, Hb today 7.2, closely monitor 04/04; patient completed 5 days of Vanco and cefepime for HCAP Urine cultures positive for VRE, add Zyvox 600 mg IV every 12 Contact isolation, ID consulted 04/05: Final ID no antibiotic treatment necessary for VRE as that could be colonization. Continue to monitor for renal function improvement. Plan for colonoscopy on . Continue to monitor H&H. 04/06: Continue to follow serum creatinine, plan for colonoscopy tomorrow. Follow H&H. Patient also needs placement 04/07: Planned for colonoscopy but patient could not complete bowel prep due to underlying dementia and metabolic encephalopathy Continue supportive care, continue to monitor H&H. Pending placement. Continue to follow renal function. Creatinine 3.2 today with sodium 148. Off Lasix. Repeat BMP tomorrow. 04/08; sodium and creatinine level further increased today. We will start on low volume D5 W. Repeat BMP in the morning, follow urine output. Discussed plan of care with nephrology. Guarded prognosis. 04/09: Patient spiked temp 100.1 yesterday but afebrile now. Continue to follow clinically. Monitor off antibiotics. If continues to spike fever then need to do reculture. Continue low volume D5W, monitor serum creatinine and sodium level. Assessment and plan: -- MARIE on chronic kidney disease; likely due to vasomotor nephropathy Closely monitor renal function, avoid nephrotoxin Nephrology consulted, --Hypernatremia, follow BMP, hold Lasix --Anemia; Hb 6.8-7.2 Received 1 unit of PRBC today, Eliquis held closely monitor transfuse additional PRBC as needed Plan for colonoscopy on Stool for occult blood is positive GI; evaluated the patient, as patient is septic Planned for colonoscopy but patient could not complete bowel prep due to underlying dementia and metabolic encephalopathy Continue supportive care, continue to monitor H&H -- A. fib with rapid ventricular rate; rate controlled Continue amiodarone, metoprolol Eliquis held due to anemia, heme positive stool, GI consult Cardiology evaluation noted and appreciated Follow-up stool for occult blood -- Acute on chronic systolic congestive heart failure; LVEF 25 to 30% Diuretics as needed, beta-blockers, no NATALYA inhibitors in view of acute kidney injury Input output monitoring, fluid restriction, supportive care --Non-ST elevation [place]; probably type II Serial cardiac enzymes, serial EKG However patient has multiple risk factors Resume home cardiac medications Cardiology consulted -- Febrile illness; PUI/COVID-19 negative Negative COVID test Persistent fever probably due to UTI/hospital-acquired pneumonia Isolation, elizondo PCR test, supportive care -- Pneumonia; hospital-acquired pneumonia Empiric antibiotics Vanco cefepime[completed 5 days] Blood cultures negative to date --Urinary tract infection; present on admission Cultures positive for VRE , contact isolation S/p Zyvox 600 mg IV every 12 hours ID consulted -- Sepsis; due to urinary tract infection, hospital-acquired pneumonia Completed 5 days of cefepime and Vanco - Metabolic encephalopathy/dementia Supportive care, treat the underlying cause --Severe protein calorie malnutrition; Nutrition supplements, supportive care Nutrition consult --Severe hypoalbuminemia; albumin 2.8 Nutrition supplements, supportive care -- Nicotine dependence; Smoking cessation counseling Nicotine patch as needed --Immunocompromised host: Seems to be on methotrexate and prednisone as per his home medications. Unclear indication. --Full CODE STATUS -- DVT prophylaxis; Patient is on Eliquis, which is now on hold Disposition; follow clinically follow consultants recommendation, discharge when stable Subjective Date of service: 04/09/22 Principal diagnosis: anemia Interval history: Patient seen and examined. Medical records and medication list reviewed. No acute event overnight noted by the RN. Continue to have elevated serum creatinine and sodium level Spiked low-grade temp last night but afebrile now Discussed plan of care with RN Patient appears to be more lethargic today Objective - Exam Narrative Exam: GENERAL: well-developed and well-nourished -[place] male lying on bed appeared to be in no discomfort. HEENT: Normocephalic. Atraumatic. No conjunctival congestion or icterus. Patient has moist mucous membranes. NECK: Supple. Trachea midline. CHEST/LUNGS: Clear to auscultated bilaterally, breathing nonlabored. No wheezes crackles or rhonchi. HEART/CARDIOVASCULAR: Regular in rate and rhythm. S1 and S2 positive. ABDOMEN: Abdomen is soft, nontender. Patient has normal bowel sounds. SKIN: There is no rash. Warm and dry. NEURO: Generalized weakness, does not move extremities. Only speaks few words MUSCULOSKELETAL: No joint effusion or tenderness. EXTRIMITY: No edema, no cyanosis or clubbing. PSYCH: Cooperative but lethargic. - Constitutional Vitals: Vital Signs - 12hr 04/09/22 04/09/22 04/09/22 05:10 09:19 09:21 Temperature 98.6 F Pulse Rate 85 91 H 91 H Respiratory 20 Rate Blood Pressure 144/72 127/72 127/72 O2 Sat by Pulse 100 Oximetry - Labs CBC & Chem 7: 04/09/22 04:30 04/10/22 04:19 Labs: Abnormal lab results 04/08/22 04/09/22 04/09/22 Range/Units 21:43 04:30 04:30 RBC 2.82 L (3.65-5.03) M/mm3 Hgb 7.4 L (11.8-15.2) gm/dl Hct 23.0 L (35.5-45.6) % MCV 82 L (84-94) fl MCH 26 L (28-32) pg RDW 20.8 H (13.2-15.2) % Eos % (Auto) 9.0 H (0.0-4.3) % Eos # (Auto) 0.6 H (0.0-0.4) K/mm3 Sodium 149 H (137-145) mmol/L Chloride 119.2 H (98-107) mmol/L Carbon Dioxide 20 L (22-30) mmol/L BUN 35 H (9-20) mg/dL Creatinine 4.1 H (0.8-1.3) mg/dL POC Glucose 136 H (70-105) mg/dL HEART Score - HEART Score Troponin: Troponin T 0.135 ng/mL (0.00-0.029) H* 04/03/22 12:29
--- NOTE | 2022-04-09 12:20 | Progress Note ---
Assessment and Plan 1. Acute kidney injury: Vasomotor MARIE superimposed on CKD in the setting of sepsis/CHF/A.Fib with RVR. Renal US negative. Monitor renal function. Non-oliguric. Creatinine level increasing. Renal prognosis is guarded. Avoid nephrotoxic agents. Meds dosage based on GFR. 2. FEN: Hypernatremia, monitor. Hyperchloremic metabolic acidosis, Sod bicarb, monitor. Replete lytes as needed. Monitor lytes and volume status. 3. A.fib with RVR: Amio and Metoprolol. Followed by Cards. Monitor. 4. Acute on chronic systolic congestive heart failure / Non-STEMI: LVEF 25 to 30%. Beta-blockers. Monitor. Followed by Cards. 5. HCAP / UTI / Sepsis: Followed by ID. 6. Acute metabolic encephalopathy, POA: H/o Dementia. Monitor. 7. Microcytic Anemia, POA: Heme positive stool. Trend. Followed by GI. Subjective: Patient was seen and examined at the bedside. Examination: General appearance: well-developed, appears stated age, no distress HEENT: atraumatic, no icterus Neck: trachea midline Respiratory: ctab Heart: S1S2, no murmur Abdomen: soft, bowel sounds heard, NT Integumentary: no obvious rash Neurologic: alert, not following any command Ext: LE edema Subjective Date of service: 04/09/22 Principal diagnosis: anemia Objective - Vital Signs Vital signs: Vital Signs - 12hr 04/09/22 04/09/22 04/09/22 05:10 09:19 09:21 Temperature 98.6 F Pulse Rate 85 91 H 91 H Respiratory 20 Rate Blood Pressure 144/72 127/72 127/72 O2 Sat by Pulse 100 Oximetry - Lab 04/09/22 04:30 04/10/22 04:19 Most recent lab results Calcium 9.8 mg/dL (8.4-10.2) 04/09/22 04:30 Magnesium 2.00 mg/dL (1.7-2.3) 04/05/22 05:06 Urine Creatinine 82.0 mg/dL (0.1-20.0) H 04/05/22 18:16 Urine Sodium 107 mmol/L 04/05/22 18:16 Medications & Allergies - Medications Allergies/Adverse Reactions: Allergies lisinopril Allergy (Verified 03/31/22 07:48) Hives Home Medications: Home Medications Medication Instructions Recorded Confirmed Last Taken Type Tamsulosin [Flomax] 0.4 mg PO QDAY #7 cap 08/28/15 04/08/22 Unknown Rx AtorvaSTATin [Lipitor] 40 mg PO QHS 03/11/22 04/08/22 Unknown History metHOTREXate sodium [Methotrexate] 15 mg PO 1XW 03/11/22 04/08/22 Unknown History predniSONE 10 mg PO BID 03/16/22 04/08/22 Unknown History Amiodarone [Cordarone 200 MG TAB] 200 mg PO BID tablet 03/23/22 04/08/22 Unknown Rx Apixaban [Eliquis] 5 mg PO Q12HR tablet 03/23/22 04/08/22 Unknown Rx Aspirin [Aspirin BABY CHEW TAB] 81 mg PO QDAY tab.chew 03/23/22 04/08/22 Unknown Rx Doxazosin [Cardura] 4 mg PO QDAY tablet 03/23/22 04/08/22 Unknown Rx Famotidine [Pepcid] 20 mg PO DAILY tablet 03/23/22 04/08/22 Unknown Rx Metoprolol [Lopressor TAB] 100 mg PO BID tablet 03/23/22 04/08/22 Unknown Rx Nicotine [Habitrol] 21 mg TD QDAY patch 03/23/22 04/08/22 Unknown Rx QUEtiapine [SEROquel] 50 mg PO QHS tablet 03/23/22 04/08/22 Unknown Rx amLODIPine 10 mg PO DAILY #30 tab 03/24/22 04/08/22 Unknown Rx Active Medications: Generic Name Dose Route Start Last Admin Trade Name Marshall PRN Reason Stop Dose Admin Acetaminophen 650 mg 03/31/22 13:31 04/08/22 21:45 Acetaminophen 325 Mg Tab PO 650 mg Q4H PRN Administration Pain MILD(1-3)/Fever >100.5/HILTON Amiodarone HCl 200 mg 03/31/22 22:00 04/09/22 09:18 Amiodarone 200 Mg Tab PO 200 mg BID FRANCESCA Administration Aspirin 81 mg 04/01/22 10:00 04/09/22 09:18 Aspirin 81 Mg Tab Chew PO 81 mg QDAY FRANCESCA Administration Atorvastatin Calcium 40 mg 03/31/22 22:00 04/08/22 21:46 Atorvastatin 40 Mg Tab PO 40 mg QHS FRANCESCA Administration Doxazosin Mesylate 4 mg 04/01/22 10:00 04/09/22 09:19 Doxazosin 4 Mg Tab PO 4 mg QDAY FRANCESCA Administration Folic Acid 1 mg 04/08/22 10:00 04/09/22 09:18 Folic Acid 1 Mg Tab PO 1 mg DAILY FRANCESCA Administration Dextrose 1,000 mls @ 42 mls/hr 04/08/22 10:00 04/08/22 20:14 D5w IV 42 mls/hr DIRECT FRANCESCA Administration Methotrexate 15 mg 04/07/22 14:00 04/07/22 14:00 Methotrexate 2.5 Mg Tab (Dose Weekly Only) PO 15 mg Th FRANCESCA Administration Metoprolol Tartrate 100 mg 03/31/22 22:00 04/09/22 09:21 Metoprolol Tartrate 100 Mg Tab PO 100 mg BID FRANCESCA Administration Morphine Sulfate 2 mg 03/31/22 13:31 04/06/22 05:35 Morphine 2 Mg/1 Ml Inj IV 2 mg Q4H PRN Administration Pain, Moderate (4-6) Morphine Sulfate 4 mg 03/31/22 13:31 Morphine 4 Mg/1 Ml Inj IV Q4H PRN Pain , Severe (7-10) Ondansetron HCl 4 mg 03/31/22 13:31 Ondansetron 4 Mg/2 Ml Inj IV Q8H PRN Nausea And Vomiting Pantoprazole Sodium 40 mg 04/08/22 17:00 04/09/22 09:18 Pantoprazole 40 Mg Tab PO 40 mg BIDDIAB FRANCESCA Administration Quetiapine Fumarate 50 mg 03/31/22 22:00 04/08/22 21:46 Quetiapine 25 Mg Tab PO 50 mg QHS FRANCESCA Administration Sodium Bicarbonate 650 mg 04/06/22 11:00 04/09/22 09:18 Sodium Bicarbonate 650 Mg Tab PO 650 mg BID FRANCESCA Administration Sodium Chloride 10 ml 03/31/22 22:00 04/09/22 09:21 Sodium Chloride 0.9% 10 Ml Flush Syringe IV 10 ml BID FRANCESCA Administration Sodium Chloride 10 ml 03/31/22 13:31 04/03/22 00:54 Sodium Chloride 0.9% 10 Ml Flush Syringe IV 10 ml PRN PRN Administration LINE FLUSH Tamsulosin HCl 0.4 mg 04/01/22 10:00 04/09/22 09:18 Tamsulosin 0.4 Mg Cap PO 0.4 mg QDAY FRANCESCA Administration
[2022-04-09] MEDS: DEXTROSE 5% IN WATER 1,000 ML IV SCH (19:11)
[2022-04-09] MEDS: QUEtiapine 25 MG TAB PO SCH (23:15)
[2022-04-10 05:00] LABS: Calcium 9.3 mg/dL (8.4-10.2)
[2022-04-10] MEDS: ACETAMINOPHEN 325 MG TAB PO PRN (05:33)
--- NOTE | 2022-04-10 09:45 | Progress Note ---
Assessment and Plan Cultures: COVID-19 PCR: Negative 03/31/2022 blood culture: No growth 04/01/2022 urine culture: VRE - Enterococcus faecium A/P: 67-year-old male with CAD, CKD, atrial fibrillation, vascular dementia was admitted to the hospital on 03/31/2022 with fever and shortness of breath: #Sepsis, likely secondary to pneumonia: repeat CXR with some interval improvement. Leukocytosis has improved. Completed empiric antibiotic course cefepime and vancomycin for 5 days til 04/05. Remains with fever. #VRE UTI: Asymptomatic bacteriuria, UA without any significant pyuria reflect colonization. No treatment indicated. #MARIE v/s CKD: Nephrology on board. 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 Unclear indication. #Dementia Recs: -Remains with 101 fever on Monday night, low-grade fever yesterday repeat blood, urine and check CXR and then restart IV Cefepime 1 gm daily + Linezolid 600 mg BID will follow Jacey Farnsworth MD [facility] ([facility]) Office [phone] Subjective Date of service: 04/10/22 Principal diagnosis: anemia Interval history: Patient is confused, remains with fever at 101 on Monday and intermittent low- grade fever since then. Objective - Exam Narrative Exam: General appearance: Alert in NAD confused Eyes: anicteric sclerae, moist conjunctivae; no lid-lag; PERRLA HENT: Normocephalic, Atraumatic; normal external ears, nares open, oropharynx clear no oral thrush Neck: supple, tracheal midline, no JVD Lungs: Bilateral rhonchi CV: RRR no murmur Abdomen: Soft, nontender Extremities: Bilateral arm edema Skin: No rash. Psych: no agitated Neuro: alert confused Condom catheter - Constitutional Vitals: Vital Signs Temp Pulse Resp BP Pulse Ox 100.6 F H 80 18 135/72 99 04/10/22 05:30 04/10/22 05:30 04/10/22 05:30 04/10/22 05:30 04/10/22 05:30 Temperature -Last 24 Hours Temperature 100.6 F Temperature 99.8 F Temperature 97.6 F Temperature 98.9 F Temperature 99.5 F - Labs CBC & Chem 7: 04/09/22 04:30 04/10/22 04:19 Labs: Abnormal lab results 04/09/22 04/09/22 04/10/22 Range/Units 11:16 22:10 04:19 Chloride 115.5 H (98-107) mmol/L Carbon Dioxide 20 L (22-30) mmol/L BUN 38 H (9-20) mg/dL Creatinine 4.0 H (0.8-1.3) mg/dL Glucose 101 H (75-100) mg/dL POC Glucose 120 H 111 H (70-105) mg/dL
--- NOTE | 2022-04-10 10:16 | Progress Note ---
Assessment and Plan 1. Acute kidney injury: Vasomotor MARIE superimposed on CKD in the setting of sepsis/CHF/A.Fib with RVR. Renal US negative. Monitor renal function. Non-oliguric. Creatinine level increasing. Renal prognosis is guarded. Avoid nephrotoxic agents. Meds dosage based on GFR. 2. FEN: Hypernatremia, monitor. Hyperchloremic metabolic acidosis, Sod bicarb, monitor. Replete lytes as needed. Monitor lytes and volume status. 3. A.fib with RVR: Amio and Metoprolol. Followed by Cards. Monitor. 4. Acute on chronic systolic congestive heart failure / Non-STEMI: LVEF 25 to 30%. Beta-blockers. Monitor. Followed by Cards. 5. HCAP / UTI / Sepsis: Followed by ID. 6. Acute metabolic encephalopathy, POA: H/o Dementia. Monitor. 7. Microcytic Anemia, POA: Heme positive stool. Trend. Seen by GI. Subjective: Patient was seen and examined at the bedside. Examination: General appearance: well-developed, appears stated age, no distress HEENT: atraumatic, no icterus Neck: trachea midline Respiratory: ctab Heart: S1S2, no murmur Abdomen: soft, bowel sounds heard, NT Integumentary: no obvious rash Neurologic: alert, not following any command Ext: trace UE edema Subjective Date of service: 04/10/22 Principal diagnosis: anemia Objective - Vital Signs Vital signs: Vital Signs - 12hr 04/09/22 04/09/22 04/10/22 23:05 23:15 05:30 Temperature 99.8 F H 100.6 F H Pulse Rate 95 H 95 H 80 Respiratory 20 18 Rate Blood Pressure 155/88 Blood Pressure 155/88 135/72 [Right] O2 Sat by Pulse 100 99 Oximetry - Lab 04/11/22 13:55 04/11/22 13:55 Most recent lab results Calcium 9.3 mg/dL (8.4-10.2) 04/10/22 04:19 Magnesium 2.00 mg/dL (1.7-2.3) 04/05/22 05:06 Urine Creatinine 82.0 mg/dL (0.1-20.0) H 04/05/22 18:16 Urine Sodium 107 mmol/L 04/05/22 18:16 Medications & Allergies - Medications Allergies/Adverse Reactions: Allergies lisinopril Allergy (Verified 03/31/22 07:48) Hives Home Medications: Home Medications Medication Instructions Recorded Confirmed Last Taken Type Tamsulosin [Flomax] 0.4 mg PO QDAY #7 cap 08/28/15 04/08/22 Unknown Rx AtorvaSTATin [Lipitor] 40 mg PO QHS 03/11/22 04/08/22 Unknown History metHOTREXate sodium [Methotrexate] 15 mg PO 1XW 03/11/22 04/08/22 Unknown History predniSONE 10 mg PO BID 03/16/22 04/08/22 Unknown History Amiodarone [Cordarone 200 MG TAB] 200 mg PO BID tablet 03/23/22 04/08/22 Unknown Rx Apixaban [Eliquis] 5 mg PO Q12HR tablet 03/23/22 04/08/22 Unknown Rx Aspirin [Aspirin BABY CHEW TAB] 81 mg PO QDAY tab.chew 03/23/22 04/08/22 Unknown Rx Doxazosin [Cardura] 4 mg PO QDAY tablet 03/23/22 04/08/22 Unknown Rx Famotidine [Pepcid] 20 mg PO DAILY tablet 03/23/22 04/08/22 Unknown Rx Metoprolol [Lopressor TAB] 100 mg PO BID tablet 03/23/22 04/08/22 Unknown Rx Nicotine [Habitrol] 21 mg TD QDAY patch 03/23/22 04/08/22 Unknown Rx QUEtiapine [SEROquel] 50 mg PO QHS tablet 03/23/22 04/08/22 Unknown Rx amLODIPine 10 mg PO DAILY #30 tab 03/24/22 04/08/22 Unknown Rx Active Medications: Generic Name Dose Route Start Last Admin Trade Name Freq PRN Reason Stop Dose Admin Acetaminophen 650 mg 03/31/22 13:31 04/10/22 05:33 Acetaminophen 325 Mg Tab PO 650 mg Q4H PRN Administration Pain MILD(1-3)/Fever >100.5/HILTON Amiodarone HCl 200 mg 03/31/22 22:00 04/09/22 23:15 Amiodarone 200 Mg Tab PO 200 mg BID FRANCESCA Administration Aspirin 81 mg 04/01/22 10:00 04/09/22 09:18 Aspirin 81 Mg Tab Chew PO 81 mg QDAY FRANCESCA Administration Atorvastatin Calcium 40 mg 03/31/22 22:00 04/09/22 23:15 Atorvastatin 40 Mg Tab PO 40 mg QHS FRANCESCA Administration Doxazosin Mesylate 4 mg 04/01/22 10:00 04/09/22 09:19 Doxazosin 4 Mg Tab PO 4 mg QDAY FRANCESCA Administration Folic Acid 1 mg 04/08/22 10:00 04/09/22 09:18 Folic Acid 1 Mg Tab PO 1 mg DAILY FRANCESCA Administration Dextrose 1,000 mls @ 42 mls/hr 04/08/22 10:00 04/09/22 19:11 D5w IV 42 mls/hr DIRECT FRANCESCA Administration Methotrexate 15 mg 04/07/22 14:00 04/07/22 14:00 Methotrexate 2.5 Mg Tab (Dose Weekly Only) PO 15 mg Th FRANCESCA Administration Metoprolol Tartrate 100 mg 03/31/22 22:00 04/09/22 23:15 Metoprolol Tartrate 100 Mg Tab PO 100 mg BID FRANCESCA Administration Morphine Sulfate 2 mg 03/31/22 13:31 04/06/22 05:35 Morphine 2 Mg/1 Ml Inj IV 2 mg Q4H PRN Administration Pain, Moderate (4-6) Morphine Sulfate 4 mg 03/31/22 13:31 Morphine 4 Mg/1 Ml Inj IV Q4H PRN Pain , Severe (7-10) Ondansetron HCl 4 mg 03/31/22 13:31 Ondansetron 4 Mg/2 Ml Inj IV Q8H PRN Nausea And Vomiting Pantoprazole Sodium 40 mg 04/08/22 17:00 04/09/22 19:10 Pantoprazole 40 Mg Tab PO 40 mg BIDDIAB FRANCESCA Administration Quetiapine Fumarate 50 mg 03/31/22 22:00 04/09/22 23:15 Quetiapine 25 Mg Tab PO 50 mg QHS FRANCESCA Administration Sodium Bicarbonate 650 mg 04/06/22 11:00 04/09/22 23:14 Sodium Bicarbonate 650 Mg Tab PO 650 mg BID FRANCESCA Administration Sodium Chloride 10 ml 03/31/22 22:00 04/09/22 23:15 Sodium Chloride 0.9% 10 Ml Flush Syringe IV 10 ml BID FRANCESCA Administration Sodium Chloride 10 ml 03/31/22 13:31 04/03/22 00:54 Sodium Chloride 0.9% 10 Ml Flush Syringe IV 10 ml PRN PRN Administration LINE FLUSH Tamsulosin HCl 0.4 mg 04/01/22 10:00 04/09/22 09:18 Tamsulosin 0.4 Mg Cap PO 0.4 mg QDAY FRANCESCA Administration
--- NOTE | 2022-04-10 10:26 | XRay Report ---
CHEST 1 VIEW 04/10/2022 9:57 AM INDICATION / CLINICAL INFORMATION: eval for worsening pneumonia. COMPARISON: 04/03/22 FINDINGS: SUPPORT DEVICES: None. HEART / MEDIASTINUM: Heart is enlarged but stable. LUNGS / PLEURA: Bibasilar pulmonary opacities are unchanged. No pneumothorax. ADDITIONAL FINDINGS: No significant additional findings. IMPRESSION: 1. No significant change. Signer Name: Oz Foley MD Signed: 04/10/2022 10:22 AM Workstation Name: [id number]
[2022-04-10] MEDS: METOPROLOL TARTRATE 100 MG TAB PO SCH ×2 (10:27→23:29)
[2022-04-10] MEDS: SODIUM BICARBONATE 650 MG TAB PO SCH ×2 (10:27→23:29)
[2022-04-10] MEDS: ASPIRIN 81 MG TAB CHEW PO SCH (10:28)
[2022-04-10] MEDS: AMIODARONE 200 MG TAB PO SCH ×2 (10:28→23:29)
[2022-04-10] MEDS: FOLIC ACID 1 MG TAB PO SCH (10:28)
[2022-04-10] MEDS: PANTOPRAZOLE 40 MG TAB PO SCH ×2 (10:28→17:34)
[2022-04-10] MEDS: DOXAZOSIN 4 MG TAB PO SCH (10:28)
[2022-04-10] MEDS: TAMSULOSIN 0.4 MG CAP PO SCH (10:28)
--- NOTE | 2022-04-10 11:11 | Progress Note ---
Assessment and Plan The patient is a 67-year-old male with CAD, CKD, atrial fibrillation, vascular dementia was admitted to the hospital on 03/31/2022 with complaints of fever and shortness of breath of 3 days. Upon evaluation in the ED, T-max of 102.8 F. Also with atrial fibrillation with rapid ventricular rate, leukocytosis. Admitted due to concerns for sepsis from pneumonia. Was started on empiric antibiotics. Urine culture growing VRE.. Echo showed EF of 25 to 30%, cardiology following. Initial chest x-ray on 03/31/2022 showed left upper lobe pneumonia. Interval improvement noted on chest x-ray from 04/03/2022. 04/01/2020; patient is febrile, mild distress, on Vanco and cefepime, follow cultures 04/02; patient's hemoglobin dropped to 6.8, 1 unit PRBC transfusion, Eliquis held, follow stool guaiac Cardiology recommendations noted and appreciated 04/03; received 1 unit PRBC yesterday, Hb today 7.2, closely monitor 04/04; patient completed 5 days of Vanco and cefepime for HCAP Urine cultures positive for VRE, add Zyvox 600 mg IV every 12 Contact isolation, ID consulted 04/05: Final ID no antibiotic treatment necessary for VRE as that could be colonization. Continue to monitor for renal function improvement. Plan for colonoscopy on . Continue to monitor H&H. 04/06: Continue to follow serum creatinine, plan for colonoscopy tomorrow. Follow H&H. Patient also needs placement 04/07: Planned for colonoscopy but patient could not complete bowel prep due to underlying dementia and metabolic encephalopathy Continue supportive care, continue to monitor H&H. Pending placement. Continue to follow renal function. Creatinine 3.2 today with sodium 148. Off Lasix. Repeat BMP tomorrow. 04/08; sodium and creatinine level further increased today. We will start on low volume D5 W. Repeat BMP in the morning, follow urine output. Discussed plan of care with nephrology. Guarded prognosis. 04/09: Patient spiked temp 100.1 yesterday but afebrile now. Continue to follow clinically. Monitor off antibiotics. If continues to spike fever then need to do reculture. Continue low volume D5W, monitor serum creatinine and sodium level. 04/10: -Remains with 101 fever on [place] night, low-grade fever yesterday repeat blood, urine and check CXR and then restart IV Cefepime 1 gm daily + Linezolid 600 mg BID. Monitor renal function. Creatinine level increasing. Renal prognosis is guarded. Assessment and plan: -- MARIE on chronic kidney disease; likely due to vasomotor nephropathy Closely monitor renal function, avoid nephrotoxin Nephrology consulted, creatinine level increasing -guarded prognosis Gentle IV fluid for now --Hypernatremia, follow BMP, hold Lasix, sodium level normalized today --Anemia; Hb 6.8-7.2 Received 1 unit of PRBC today, Eliquis held closely monitor transfuse additional PRBC as needed Plan for colonoscopy on Stool for occult blood is positive GI; evaluated the patient, as patient is septic Planned for colonoscopy but patient could not complete bowel prep due to underlying dementia and metabolic encephalopathy Continue supportive care, continue to monitor H&H -- A. fib with rapid ventricular rate; rate controlled Continue amiodarone, metoprolol Eliquis held due to anemia, heme positive stool, GI consult Cardiology evaluation noted and appreciated Follow-up stool for occult blood -- Acute on chronic systolic congestive heart failure; LVEF 25 to 30% Diuretics as needed, beta-blockers, no NATALYA inhibitors in view of acute kidney i njury Input output monitoring, fluid restriction, supportive care --Non-ST elevation UT; probably type II Serial cardiac enzymes, serial EKG However patient has multiple risk factors Resume home cardiac medications Cardiology consulted -- Febrile illness; PUI/COVID-19 negative Negative COVID test Persistent fever probably due to UTI/hospital-acquired pneumonia Isolation, elizondo PCR test, supportive care -- Pneumonia; hospital-acquired pneumonia Empiric antibiotics Vanco cefepime[completed 5 days] Blood cultures negative to date --Urinary tract infection; present on admission Cultures positive for VRE , contact isolation S/p Zyvox 600 mg IV every 12 hours ID consulted -- Sepsis; due to urinary tract infection, hospital-acquired pneumonia Completed 5 days of cefepime and Vanco - Metabolic encephalopathy/dementia Supportive care, treat the underlying cause --Severe protein calorie malnutrition; Nutrition supplements, supportive care Nutrition consult --Severe hypoalbuminemia; albumin 2.8 Nutrition supplements, supportive care -- Nicotine dependence; Smoking cessation counseling Nicotine patch as needed --Immunocompromised host: Seems to be on methotrexate and prednisone as per his home medications. Unclear indication. --Full CODE STATUS -- DVT prophylaxis; Patient is on Eliquis, which is now on hold Disposition; follow clinically follow consultants recommendation, discharge when stable Subjective Date of service: 04/10/22 Principal diagnosis: anemia Interval history: Patient seen and examined. Medical records and medication list reviewed. No acute event overnight noted by the RN. Low-grade temp Discussed plan of care with RN Patient appears to be more alert today Objective - Exam Narrative Exam: GENERAL: well-developed and well-nourished -Indian male lying on bed appeared to be in no discomfort. HEENT: Normocephalic. Atraumatic. No conjunctival congestion or icterus. Patient has moist mucous membranes. NECK: Supple. Trachea midline. CHEST/LUNGS: Clear to auscultated bilaterally, breathing nonlabored. No wheezes crackles or rhonchi. HEART/CARDIOVASCULAR: Regular in rate and rhythm. S1 and S2 positive. ABDOMEN: Abdomen is soft, nontender. Patient has normal bowel sounds. SKIN: There is no rash. Warm and dry. NEURO: Generalized weakness, does not move extremities. Only speaks few words MUSCULOSKELETAL: No joint effusion or tenderness. EXTRIMITY: No edema, no cyanosis or clubbing. PSYCH: Alert and cooperative. - Constitutional Vitals: Vital Signs - 12hr 04/09/22 04/10/22 04/10/22 23:15 05:30 10:27 Temperature 100.6 F H Pulse Rate 95 H 80 78 Respiratory 18 Rate Blood Pressure 155/88 148/76 Blood Pressure 135/72 [Right] O2 Sat by Pulse 99 Oximetry 04/10/22 10:28 Temperature Pulse Rate 78 Respiratory Rate Blood Pressure 148/76 Blood Pressure [Right] O2 Sat by Pulse Oximetry - Labs CBC & Chem 7: 04/09/22 04:30 04/10/22 04:19 Labs: Abnormal lab results 04/09/22 04/09/22 04/10/22 Range/Units 11:16 22:10 04:19 Chloride 115.5 H (98-107) mmol/L Carbon Dioxide 20 L (22-30) mmol/L BUN 38 H (9-20) mg/dL Creatinine 4.0 H (0.8-1.3) mg/dL Glucose 101 H (75-100) mg/dL POC Glucose 120 H 111 H (70-105) mg/dL HEART Score - HEART Score Troponin: Troponin T 0.135 ng/mL (0.00-0.029) H* 04/03/22 12:29
[2022-04-10] MEDS: CEFEPIME/NS 1 GM/100 ML 1 GM/100 ML BAG IV SCH (12:33)
[2022-04-10] MEDS: LINEZOLID 600 MG TAB PO SCH (14:01)
[2022-04-10] MEDS ORDERED: FUROSEMIDE 40 MG/4 ML INJ IV STA (15:37)
[2022-04-10] MEDS: ALBUTEROL 2.5 MG/3 ML NEBU IH SCH ×2 (15:51→20:15)
[2022-04-10 17:44] LABS: Bacteria,Urine 2+ /HPF (Negative)
[2022-04-10 17:48] LABS: Color,Urine Yellow (Yellow)
[2022-04-10] MEDS: QUEtiapine 25 MG TAB PO SCH (23:27)
[2022-04-11] MEDS: ALBUTEROL 2.5 MG/3 ML NEBU IH SCH ×6 (00:05→19:54)
[2022-04-11] MEDS: LINEZOLID 600 MG TAB PO SCH ×3 (00:48→21:34)
--- NOTE | 2022-04-11 08:28 | Progress Note ---
Assessment and Plan Assessment and plan: he patient is a 67-year-old male with CAD, CKD, atrial fibrillation, vascular dementia was admitted to the hospital on 03/31/2022 with complaints of fever and shortness of breath of 3 days. Upon evaluation in the ED, T-max of 102.8 F. Also with atrial fibrillation with rapid ventricular rate, leukocytosis. Admitted due to concerns for sepsis from pneumonia. Was started on empiric antibiotics. Urine culture growing VRE.. Echo showed EF of 25 to 30%, cardiology following. Initial chest x-ray on 03/31/2022 showed left upper lobe pneumonia. Interval improvement noted on chest x-ray from 04/03/2022. Assessment and plan: -- MARIE on chronic kidney disease; likely due to vasomotor nephropathy Closely monitor renal function, avoid nephrotoxin Nephrology consulted, creatinine level increasing -guarded prognosis Gentle IV fluid for now --Hypernatremia, follow BMP, hold Lasix, sodium level normalized today --Anemia; Hb 6.8-7.2 Received 1 unit of PRBC today, Eliquis held closely monitor transfuse additional PRBC as needed Plan for colonoscopy on Stool for occult blood is positive GI; evaluated the patient, as patient is septic Planned for colonoscopy but patient could not complete bowel prep due to underlying dementia and metabolic encephalopathy Continue supportive care, continue to monitor H&H -- A. fib with rapid ventricular rate; rate controlled Continue amiodarone, metoprolol Eliquis held due to anemia, heme positive stool, GI consult Cardiology evaluation noted and appreciated Follow-up stool for occult blood -- Acute on chronic systolic congestive heart failure; LVEF 25 to 30% Diuretics as needed, beta-blockers, no NATALYA inhibitors in view of acute kidney injury Input output monitoring, fluid restriction, supportive care --Non-ST elevation SC; probably type II Serial cardiac enzymes, serial EKG However patient has multiple risk factors Resume home cardiac medications Cardiology consulted -- Febrile illness; PUI/COVID-19 negative Negative COVID test Persistent fever probably due to UTI/hospital-acquired pneumonia Isolation, elizondo PCR test, supportive care -- Pneumonia; hospital-acquired pneumonia Empiric antibiotics Vanco cefepime[completed 5 days] Blood cultures negative to date --Urinary tract infection; present on admission Cultures positive for VRE , contact isolation S/p Zyvox 600 mg IV every 12 hours ID consulted -- Sepsis; due to urinary tract infection, hospital-acquired pneumonia Completed 5 days of cefepime and Vanco - Metabolic encephalopathy/dementia Supportive care, treat the underlying cause --Severe protein calorie malnutrition; Nutrition supplements, supportive care Nutrition consult --Severe hypoalbuminemia; albumin 2.8 Nutrition supplements, supportive care -- Nicotine dependence; Smoking cessation counseling Nicotine patch as needed --Immunocompromised host: Seems to be on methotrexate and prednisone as per his home medications. Unclear indication. --Full CODE STATUS -- DVT prophylaxis; Patient is on Eliquis, which is now on hold Disposition; follow clinically follow consultants recommendation, discharge when stable Hospital course: 04/01/2020; patient is febrile, mild distress, on Vanco and cefepime, follow cultures 04/02; patient's hemoglobin dropped to 6.8, 1 unit PRBC transfusion, Eliquis held, follow stool guaiac Cardiology recommendations noted and appreciated 04/03; received 1 unit PRBC yesterday, Hb today 7.2, closely monitor 04/04; patient completed 5 days of Vanco and cefepime for HCAP Urine cultures positive for VRE, add Zyvox 600 mg IV every 12 Contact isolation, ID consulted 04/05: Final ID no antibiotic treatment necessary for VRE as that could be colonization. Continue to monitor for renal function improvement. Plan for colonoscopy on . Continue to monitor H&H. 04/06: Continue to follow serum creatinine, plan for colonoscopy tomorrow. Follow H&H. Patient also needs placement 04/07: Planned for colonoscopy but patient could not complete bowel prep due to underlying dementia and metabolic encephalopathy Continue supportive care, continue to monitor H&H. Pending placement. Continue to follow renal function. Creatinine 3.2 today with sodium 148. Off Lasix. Repeat BMP tomorrow. 04/08; sodium and creatinine level further increased today. We will start on low volume D5 W. Repeat BMP in the morning, follow urine output. Discussed plan of care with nephrology. Guarded prognosis. 04/09: Patient spiked temp 100.1 yesterday but afebrile now. Continue to follow clinically. Monitor off antibiotics. If continues to spike fever then need to do reculture. Continue low volume D5W, monitor serum creatinine and sodium level. 04/10: -Remains with 101 fever on Monday night, low-grade fever yesterday repeat blood, urine and check CXR and then restart IV Cefepime 1 gm daily + Linezolid 600 mg BID. Monitor renal function. Creatinine level increasing. Renal prognosis is guarded. 04/11: ID restarted cefepime and Zyvox yesterday. Creatinine appears to be worsening but no labs today. Recheck BMP. Etiology appears to be secondary to vasomotor MARIE superimposed on CKD in the setting of sepsis/CHF/A. fib with RVR. Renal ultrasound negative. Continue amiodarone and metoprolol for rate control with A. fib. Continue diuresis with Lasix. No NATALYA inhibitor due to renal insufficiency. History Interval history: No new issues overnight Hospitalist Physical - Constitutional Vitals: Temp Pulse Resp BP Pulse Ox 98.6 F 74 22 122/67 98 04/11/22 05:05 04/11/22 05:05 04/11/22 05:05 04/11/22 05:05 04/11/22 05:05 General appearance: Present: no acute distress, well-nourished, other (Looks tired) - EENT Eyes: Present: PERRL, EOM intact ENT: hearing intact, clear oral mucosa, dentition normal - Neck Neck: Present: supple, normal ROM - Respiratory Respiratory effort: normal Respiratory: bilateral: CTA - Cardiovascular Rhythm: regular Heart Sounds: Present: S1 & S2. Absent: gallop, rub - Extremities Extremities: no ischemia, No edema, Full ROM - Abdominal General gastrointestinal: soft, non-tender, non-distended, normal bowel sounds - Integumentary Integumentary: Present: clear, warm, dry - Neurologic Neurologic: CNII-XII intact, moves all extremities HEART Score - HEART Score Troponin: Troponin T 0.135 ng/mL (0.00-0.029) H* 04/03/22 12:29 Results - Labs CBC & Chem 7: 04/09/22 04:30 04/10/22 04:19 Labs: Laboratory Last Values WBC 6.8 K/mm3 (4.5-11.0) 04/09/22 04:30 RBC 2.82 M/mm3 (3.65-5.03) L 04/09/22 04:30 Hgb 7.4 gm/dl (11.8-15.2) L 04/09/22 04:30 Hct 23.0 % (35.5-45.6) L 04/09/22 04:30 MCV 82 fl (84-94) L 04/09/22 04:30 MCH 26 pg (28-32) L 04/09/22 04:30 MCHC 32 % (32-34) 04/09/22 04:30 RDW 20.8 % (13.2-15.2) H 04/09/22 04:30 Plt Count 308 K/mm3 (140-440) 04/09/22 04:30 Lymph % (Auto) 20.3 % (13.4-35.0) 04/09/22 04:30 [place] % (Auto) 6.9 % (0.0-7.3) 04/09/22 04:30 Eos % (Auto) 9.0 % (0.0-4.3) H 04/09/22 04:30 Baso % (Auto) 0.7 % (0.0-1.8) 04/09/22 04:30 Lymph # (Auto) 1.4 K/mm3 (1.2-5.4) 04/09/22 04:30 [place] # (Auto) 0.5 K/mm3 (0.0-0.8) 04/09/22 04:30 Eos # (Auto) 0.6 K/mm3 (0.0-0.4) H 04/09/22 04:30 Baso # (Auto) 0.0 K/mm3 (0.0-0.1) 04/09/22 04:30 Add Manual Diff Complete 04/05/22 05:06 Total Counted 100 04/05/22 05:06 Seg Neutrophils % 63.1 % (40.0-70.0) 04/09/22 04:30 Seg Neuts % (Manual) 93.0 % (40.0-70.0) H 04/05/22 05:06 Band Neutrophils % 1.0 % 04/05/22 05:06 Lymphocytes % (Manual) 2.0 % (13.4-35.0) L 04/05/22 05:06 Reactive Lymphs % (Man) 0 % 04/05/22 05:06 Monocytes % (Manual) 1.0 % (0.0-7.3) 04/05/22 05:06 Eosinophils % (Manual) 3.0 % (0.0-4.3) 04/05/22 05:06 Basophils % (Manual) 0 % (0.0-1.8) 04/05/22 05:06 Metamyelocytes % 0 % 04/05/22 05:06 Myelocytes % 0 % 04/05/22 05:06 Promyelocytes % 0 % 04/05/22 05:06 Blast Cells % 0 % 04/05/22 05:06 Nucleated RBC % Not Reportable 04/05/22 05:06 Seg Neutrophils # 4.3 K/mm3 (1.8-7.7) 04/09/22 04:30 Seg Neutrophils # Man 7.4 K/mm3 (1.8-7.7) 04/05/22 05:06 Band Neutrophils # 0.1 K/mm3 04/05/22 05:06 Lymphocytes # (Manual) 0.2 K/mm3 (1.2-5.4) L 04/05/22 05:06 Abs React Lymphs (Man) 0.0 K/mm3 04/05/22 05:06 Monocytes # (Manual) 0.1 K/mm3 (0.0-0.8) 04/05/22 05:06 Eosinophils # (Manual) 0.2 K/mm3 (0.0-0.4) 04/05/22 05:06 Basophils # (Manual) 0.0 K/mm3 (0.0-0.1) 04/05/22 05:06 Metamyelocytes # 0.0 K/mm3 04/05/22 05:06 Myelocytes # 0.0 K/mm3 04/05/22 05:06 Promyelocytes # 0.0 K/mm3 04/05/22 05:06 Blast Cells # 0.0 K/mm3 04/05/22 05:06 WBC Morphology Not Reportable 04/05/22 05:06 Hypersegmented Neuts Not Reportable 04/05/22 05:06 Hyposegmented Neuts Not Reportable 04/05/22 05:06 Hypogranular Neuts Not Reportable 04/05/22 05:06 Smudge Cells Not Reportable 04/05/22 05:06 Toxic Granulation Not Reportable 04/05/22 05:06 Toxic Vacuolation Not Reportable 04/05/22 05:06 Dohle Bodies Not Reportable 04/05/22 05:06 Pelger-Huet Anomaly Not Reportable 04/05/22 05:06 Marylin Rods Not Reportable 04/05/22 05:06 Platelet Estimate Consistent w auto 04/05/22 05:06 Clumped Platelets Not Reportable 04/05/22 05:06 Plt Clumps, EDTA Not Reportable 04/05/22 05:06 Large Platelets Not Reportable 04/05/22 05:06 Giant Platelets Not Reportable 04/05/22 05:06 Platelet Satelliting Not Reportable 04/05/22 05:06 Plt Morphology Comment Not Reportable 04/05/22 05:06 RBC Morphology Not Reportable 04/05/22 05:06 Dimorphic RBCs Not Reportable 04/05/22 05:06 Polychromasia Not Reportable 04/05/22 05:06 Hypochromasia Not Reportable 04/05/22 05:06 Poikilocytosis 1+ 04/05/22 05:06 Anisocytosis 1+ 04/05/22 05:06 Microcytosis Not Reportable 04/05/22 05:06 Macrocytosis Not Reportable 04/05/22 05:06 Spherocytes 1+ 04/05/22 05:06 Pappenheimer Bodies Not Reportable 04/05/22 05:06 Sickle Cells Not Reportable 04/05/22 05:06 Target Cells Few 04/05/22 05:06 Tear Drop Cells Not Reportable 04/05/22 05:06 Ovalocytes 1+ 04/05/22 05:06 Helmet Cells Not Reportable 04/05/22 05:06 Alvarez-O'Donnell Bodies Not Reportable 04/05/22 05:06 [place] Rings Not Reportable 04/05/22 05:06 Damari Cells Few 04/05/22 05:06 Bite Cells Not Reportable 04/05/22 05:06 Crenated Cell Not Reportable 04/05/22 05:06 Elliptocytes 1+ 04/05/22 05:06 Acanthocytes (Spur) Not Reportable 04/05/22 05:06 Rouleaux Not Reportable 04/05/22 05:06 Hemoglobin C Crystals Not Reportable 04/05/22 05:06 Schistocytes Not Reportable 04/05/22 05:06 Malaria parasites Not Reportable 04/05/22 05:06 Cristino Bodies Not Reportable 04/05/22 05:06 Hem Pathologist Commnt No 04/05/22 05:06 Sodium 145 mmol/L (137-145) 04/10/22 04:19 Potassium 4.9 mmol/L (3.6-5.0) 04/10/22 04:19 Chloride 115.5 mmol/L (98-107) H 04/10/22 04:19 Carbon Dioxide 20 mmol/L (22-30) L 04/10/22 04:19 Anion Gap 14 mmol/L 04/10/22 04:19 BUN 38 mg/dL (9-20) H 04/10/22 04:19 Creatinine 4.0 mg/dL (0.8-1.3) H 04/10/22 04:19 Estimated GFR 18 ml/min 04/10/22 04:19 BUN/Creatinine Ratio 10 % 04/10/22 04:19 Glucose 101 mg/dL (75-100) H 04/10/22 04:19 POC Glucose 91 mg/dL (70-105) 04/10/22 21:28 Lactic Acid 1.20 mmol/L (0.7-2.0) 03/31/22 08:00 Calcium 9.3 mg/dL (8.4-10.2) 04/10/22 04:19 Magnesium 2.00 mg/dL (1.7-2.3) 04/05/22 05:06 Total Bilirubin 0.50 mg/dL (0.1-1.2) 04/05/22 05:06 AST 9 units/L (5-40) 04/05/22 05:06 ALT 7 units/L (7-56) 04/05/22 05:06 Alkaline Phosphatase 80 units/L (35-129) 04/05/22 05:06 Total Creatine Kinase 55 units/L (55-170) 03/31/22 08:00 Troponin T 0.135 ng/mL (0.00-0.029) H* 04/03/22 12:29 NT-Pro-B Natriuret Pep 60770 pg/mL (0-900) H 03/31/22 08:00 Total Protein 5.8 g/dL (6.3-8.2) L 04/05/22 05:06 Albumin 2.0 g/dL (3.9-5) L 04/05/22 05:06 Albumin/Globulin Ratio 0.5 % 04/05/22 05:06 Triglycerides 76 mg/dL (2-149) 03/31/22 08:00 Cholesterol 109 mg/dL (50-199) 03/31/22 08:00 LDL Cholesterol Direct 55 mg/dL (50-130) 03/31/22 08:00 HDL Cholesterol 38 mg/dL (40-59) L 03/31/22 08:00 Cholesterol/HDL Ratio 2.86 % 03/31/22 08:00 Procalcitonin 0.36 ng/mL (<0.15) 03/31/22 08:00 Urine Color Yellow (Yellow) 04/10/22 17:00 Urine Turbidity Slightly cloudy (Clear) 04/10/22 17:00 Specific [place] (Man) 1.010 (1.003-1.030) 04/10/22 17:00 Ur Protein (Man) 2+ mg/dL (Negative) 04/10/22 17:00 Ur Ketones (Man) Negative (Negative) 04/10/22 17:00 Ur Nitrite (Man) Negative (Negative) 04/10/22 17:00 Ur Reducing Substances Not Reportable 04/10/22 17:00 Urine Bilirubin (Man) Negative (Negative) 04/10/22 17:00 Urine Ictotest Not Reportable 04/10/22 17:00 Leukocyte Esterase (Man) Negative (Negative) 04/10/22 17:00 Urine WBC (Auto) 2.0 /HPF (0.0-6.0) 04/10/22 17:00 Urine RBC (Auto) 4.0 /HPF (0.0-6.0) 04/10/22 17:00 Urine Bacteria (Auto) 2+ /HPF (Negative) 04/10/22 17:00 Urine RBC (Manual) 3+ (Negative) 04/10/22 17:00 Granular Casts 6 /LPF 04/01/22 05:20 RBC Casts 7 /LPF 04/01/22 05:20 Urine Yeast (Budding) 3+ /HPF 04/10/22 17:00 Urine Creatinine 82.0 mg/dL (0.1-20.0) H 04/05/22 18:16 Urine Sodium 107 mmol/L 04/05/22 18:16 Random Vancomycin 18.2 ug/mL (0-40.0) 04/06/22 05:46 SARS-CoV-2 (PCR) Negative (Negative) 04/08/22 09:45 Blood Type O POSITIVE 04/02/22 11:45 Antibody Screen Negative 04/02/22 11:45 Crossmatch See Detail 04/02/22 11:45 Microbiology: Microbiology 04/10/22 11:19 Peripheral/Venous Blood Culture - Preliminary Culture in Progress 04/10/22 09:58 Peripheral/Venous Blood Culture - Preliminary Culture in Progress [place]/IV: Voiding Method Condom Catheter Active Medications - Current Medications Current Medications: Generic Name Dose Route Start Last Admin Trade Name Freq PRN Reason Stop Dose Admin Acetaminophen 650 mg 03/31/22 13:31 04/10/22 05:33 Acetaminophen 325 Mg Tab PO 650 mg Q4H PRN Administration Pain MILD(1-3)/Fever >100.5/[place] Albuterol 2.5 mg 04/10/22 16:00 04/11/22 07:35 Albuterol 2.5 Mg/3 Ml Nebu IH 2.5 mg Q4HRT FRANCESCA Administration Amiodarone HCl 200 mg 03/31/22 22:00 04/10/22 23:29 Amiodarone 200 Mg Tab PO 200 mg BID FRANCESCA Administration Aspirin 81 mg 04/01/22 10:00 04/10/22 10:28 Aspirin 81 Mg Tab Chew PO 81 mg QDAY FRANCESCA Administration Atorvastatin Calcium 40 mg 03/31/22 22:00 04/10/22 23:29 Atorvastatin 40 Mg Tab PO 40 mg QHS FRANCESCA Administration Doxazosin Mesylate 4 mg 04/01/22 10:00 04/10/22 10:28 Doxazosin 4 Mg Tab PO 4 mg QDAY FRANCESCA Administration Folic Acid 1 mg 04/08/22 10:00 04/10/22 10:28 Folic Acid 1 Mg Tab PO 1 mg DAILY FRANCESCA Administration Cefepime HCl 1 gm in 100 mls @ 200 mls/hr 04/10/22 11:00 04/10/22 12:33 Cefepime/Ns 1 Gm/100 Ml IV 200 mls/hr Q24HR FRANCESCA Administration Protocol Linezolid 600 mg 04/10/22 11:00 04/11/22 00:48 Linezolid 600 Mg Tab PO 600 mg Q12HR FRANCESCA Administration Protocol Methotrexate 15 mg 04/07/22 14:00 04/07/22 14:00 Methotrexate 2.5 Mg Tab (Dose Weekly Only) PO 15 mg Th FRANCESCA Administration Metoprolol Tartrate 100 mg 03/31/22 22:00 04/10/22 23:29 Metoprolol Tartrate 100 Mg Tab PO 100 mg BID FRANCESCA Administration Morphine Sulfate 2 mg 03/31/22 13:31 04/06/22 05:35 Morphine 2 Mg/1 Ml Inj IV 2 mg Q4H PRN Administration Pain, Moderate (4-6) Morphine Sulfate 4 mg 03/31/22 13:31 Morphine 4 Mg/1 Ml Inj IV Q4H PRN Pain , Severe (7-10) Ondansetron HCl 4 mg 03/31/22 13:31 Ondansetron 4 Mg/2 Ml Inj IV Q8H PRN Nausea And Vomiting Pantoprazole Sodium 40 mg 04/08/22 17:00 04/10/22 17:34 Pantoprazole 40 Mg Tab PO 40 mg BIDDIAB FRANCESCA Administration Quetiapine Fumarate 50 mg 03/31/22 22:00 04/10/22 23:27 Quetiapine 25 Mg Tab PO 50 mg QHS FRANCESCA Administration Sodium Bicarbonate 650 mg 04/06/22 11:00 04/10/22 23:29 Sodium Bicarbonate 650 Mg Tab PO 650 mg BID FRANCESCA Administration Sodium Chloride 10 ml 03/31/22 22:00 04/10/22 23:28 Sodium Chloride 0.9% 10 Ml Flush Syringe IV 10 ml BID FRANCESCA Administration Sodium Chloride 10 ml 03/31/22 13:31 04/03/22 00:54 Sodium Chloride 0.9% 10 Ml Flush Syringe IV 10 ml PRN PRN Administration LINE FLUSH Tamsulosin HCl 0.4 mg 04/01/22 10:00 04/10/22 10:28 Tamsulosin 0.4 Mg Cap PO 0.4 mg QDAY FRANCESCA Administration Nutrition/Malnutrition Assess - Dietary Evaluation Nutrition/Malnutrition Findings: Nutrition Notes Start: 04/01/22 10 :53 Freq: Status: Active Protocol: Document 04/07/22 16:20 ABDIAS (Rec: 04/07/22 16:47 ABDIAS [id number]) Nutrition Notes Initial or Follow up Brief Note Current Diagnosis CKD(stage I-IV),Coronary Artery Disease,Sepsis, Hypertension,Respiratory Failure,Malnutrition, Hyperlipidemia Other Pertinent Diagnosis Metabolic Encephalopathy, UTI, HCAP, Anemia, GI Bleed, NSTEMI II, ... Current Diet NPO (since 04/06 00:01). Labs/Tests 04/07: Na 149, Cl 118.1, CO2 19, BUN 30, Crea 3.2, Glu 72. Pertinent Medications 04/07: Nutritionally unremarkable. Height 5 ft 9 in Weight 77 kg [place] Body Weight (kg) 72.72 BMI 25.0 Weight change and time frame Discrepancy of 32.3 Kg body weight gain reported in 2 days . Unable to contact RN over the phone to verify anthropometrics, will assess at F/U. Weight Status Overweight Subjective/Other Information Rd consult for routine F/U on dietary advancement and anthropometrics discrepancies assessments. Pt currently on NPO. No reports available on Pt's PO intake of meals at the time , will assess at F/U. Pt is on Nasal Cannula, O2 saturation @ 96%, according to Physical Assessment History notes. Procedure planned for 04/07 EGD/Colonoscopy, was cancelled due to Pt's altered mental status worsening, according to Progress notes. Percent of energy/protein needs met: Pt currently on NPO. #1 Nutrition Diagnosis Inadequate protein-energy intake Comments: Pt currently on NPO. Pt's AMS worsening. Diagnosis Progress(for reassessment Worsened documentation) Is patient on ventilator? No Is Patient Ambulatory and/or Out of Bed No REE-([facility]-confined to bed) 1853.868 Kcal/Kg value to use for calculation 25 Approximate Energy Requirements Using 1925 kcal/Kg Calculation Used for Recommendations Kcal/kg Additional Notes Protein: 0.6-0.8 g/Kg ABW; 46- 62 g/day. (revise this calculation with updated anthropometrics) Fluids: 1 ml/Kcal, or as per MD. Nutrition Intervention Change Diet Order: When pertinent resume Cardiac -Mechanical Soft- Diet and continue as tolerated. Add Supplement/Snack (indicate name/kcal When pertinent, resume 8 fl oz /protein ) Ensure High Protein; TID. Provides kCal: 480 Provides Protein (gm) 48 Goal #1 Compensate, through dietary supplementation, for possible poor or insufficient PO intake of meals during LOS. Goal #2 Facilitate PO intake of meals with elemental, textural, or mechanical modification during LOS. Goal #3 Adjust the dietary intervention to better serve Pt's needs and clinical conditions during LOS. Follow-Up By: 04/11/22 Additional Comments When pertinent, continue monitoring food tolerance, %PO intake of meals, dietary supplements, and BM.
--- NOTE | 2022-04-11 09:21 | Progress Note ---
Assessment and Plan 1. Acute kidney injury: Vasomotor MARIE superimposed on CKD in the setting of sepsis/CHF/A.Fib with RVR. Renal US negative. Monitor renal function. Non-oliguric. Creatinine level increasing. Renal prognosis is guarded. Avoid nephrotoxic agents. Meds dosage based on GFR. 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 2. FEN: Hyperkalemia, meds ordered, monitor. Hypernatremia, monitor. Hyperchloremic metabolic acidosis, Sod bicarb, monitor. Replete lytes as needed. Monitor lytes and volume status. 3. A.fib with RVR: Amio and Metoprolol. Followed by Cards. Monitor. 4. Acute on chronic systolic congestive heart failure / Non-STEMI: LVEF 25 to 30%. Beta-blockers. Monitor. Followed by Cards. 5. HCAP / UTI / Sepsis: Followed by ID. 6. Acute metabolic encephalopathy, POA: H/o Dementia. Monitor. 7. Microcytic Anemia, POA: Heme positive stool. Trend. Seen by GI. 8. Bladder retention: Arteaga ordered. Subjective: Patient was seen and examined at the bedside. Examination: General appearance: well-developed, appears stated age, no distress HEENT: atraumatic, no icterus Neck: trachea midline Respiratory: ctab Heart: S1S2, no murmur Abdomen: soft, bowel sounds heard, NT Integumentary: no obvious rash Neurologic: alert, not following any command Ext: trace UE edema Subjective Date of service: 04/11/22 Principal diagnosis: anemia Objective - Vital Signs Vital signs: Vital Signs - 12hr 04/10/22 04/10/22 04/10/22 22:00 22:20 23:29 Temperature 99.7 F H Pulse Rate 86 86 Pulse Rate [ Anterior Bilateral Throughout] Respiratory 18 Rate Respiratory Rate [Anterior Bilateral Throughout] Blood Pressure 132/64 Blood Pressure [Left] Blood Pressure 132/64 [Right] O2 Sat by Pulse 100 96 Oximetry 04/11/22 04/11/22 04/11/22 00:05 00:21 04:30 Temperature Pulse Rate Pulse Rate [ 91 H 81 Anterior Bilateral Throughout] Respiratory Rate Respiratory 20 20 Rate [Anterior Bilateral Throughout] Blood Pressure Blood Pressure [Left] Blood Pressure [Right] O2 Sat by Pulse 98 Oximetry 04/11/22 05:05 Temperature 98.6 F Pulse Rate 74 Pulse Rate [ Anterior Bilateral Throughout] Respiratory 22 Rate Respiratory Rate [Anterior Bilateral Throughout] Blood Pressure Blood Pressure 122/67 [Left] Blood Pressure [Right] O2 Sat by Pulse 98 Oximetry - Lab 04/11/22 13:55 04/11/22 13:55 Most recent lab results Calcium 9.3 mg/dL (8.4-10.2) 04/10/22 04:19 Magnesium 2.00 mg/dL (1.7-2.3) 04/05/22 05:06 Urine Creatinine 82.0 mg/dL (0.1-20.0) H 04/05/22 18:16 Urine Sodium 107 mmol/L 04/05/22 18:16 Medications & Allergies - Medications Allergies/Adverse Reactions: Allergies lisinopril Allergy (Verified 03/31/22 07:48) Hives Home Medications: Home Medications Medication Instructions Recorded Confirmed Last Taken Type Tamsulosin [Flomax] 0.4 mg PO QDAY #7 cap 08/28/15 04/08/22 Unknown Rx AtorvaSTATin [Lipitor] 40 mg PO QHS 03/11/22 04/08/22 Unknown History metHOTREXate sodium [Methotrexate] 15 mg PO 1XW 03/11/22 04/08/22 Unknown History predniSONE 10 mg PO BID 03/16/22 04/08/22 Unknown History Amiodarone [Cordarone 200 MG TAB] 200 mg PO BID tablet 03/23/22 04/08/22 Unknown Rx Apixaban [Eliquis] 5 mg PO Q12HR tablet 03/23/22 04/08/22 Unknown Rx Aspirin [Aspirin BABY CHEW TAB] 81 mg PO QDAY tab.chew 03/23/22 04/08/22 Unknown Rx Doxazosin [Cardura] 4 mg PO QDAY tablet 03/23/22 04/08/22 Unknown Rx Famotidine [Pepcid] 20 mg PO DAILY tablet 03/23/22 04/08/22 Unknown Rx Metoprolol [Lopressor TAB] 100 mg PO BID tablet 03/23/22 04/08/22 Unknown Rx Nicotine [Habitrol] 21 mg TD QDAY patch 03/23/22 04/08/22 Unknown Rx QUEtiapine [SEROquel] 50 mg PO QHS tablet 03/23/22 04/08/22 Unknown Rx amLODIPine 10 mg PO DAILY #30 tab 03/24/22 04/08/22 Unknown Rx Active Medications: Generic Name Dose Route Start Last Admin Trade Name Freq PRN Reason Stop Dose Admin Acetaminophen 650 mg 03/31/22 13:31 04/10/22 05:33 Acetaminophen 325 Mg Tab PO 650 mg Q4H PRN Administration Pain MILD(1-3)/Fever >100.5/[place] Albuterol 2.5 mg 04/10/22 16:00 04/11/22 07:35 Albuterol 2.5 Mg/3 Ml Nebu IH 2.5 mg Q4HRT FRANCESCA Administration Amiodarone HCl 200 mg 03/31/22 22:00 04/10/22 23:29 Amiodarone 200 Mg Tab PO 200 mg BID FRANCESCA Administration Aspirin 81 mg 04/01/22 10:00 04/10/22 10:28 Aspirin 81 Mg Tab Chew PO 81 mg QDAY FRANCESCA Administration Atorvastatin Calcium 40 mg 03/31/22 22:00 04/10/22 23:29 Atorvastatin 40 Mg Tab PO 40 mg QHS FRANCESCA Administration Doxazosin Mesylate 4 mg 04/01/22 10:00 04/10/22 10:28 Doxazosin 4 Mg Tab PO 4 mg QDAY FRANCESCA Administration Folic Acid 1 mg 04/08/22 10:00 04/10/22 10:28 Folic Acid 1 Mg Tab PO 1 mg DAILY FRANCESCA Administration Cefepime HCl 1 gm in 100 mls @ 200 mls/hr 04/10/22 11:00 04/10/22 12:33 Cefepime/Ns 1 Gm/100 Ml IV 200 mls/hr Q24HR FRANCESCA Administration Protocol Linezolid 600 mg 04/10/22 11:00 04/11/22 00:48 Linezolid 600 Mg Tab PO 600 mg Q12HR FRANCESCA Administration Protocol Methotrexate 15 mg 04/07/22 14:00 04/07/22 14:00 Methotrexate 2.5 Mg Tab (Dose Weekly Only) PO 15 mg Th FRANCESCA Administration Metoprolol Tartrate 100 mg 03/31/22 22:00 04/10/22 23:29 Metoprolol Tartrate 100 Mg Tab PO 100 mg BID FRANCESCA Administration Morphine Sulfate 2 mg 03/31/22 13:31 04/06/22 05:35 Morphine 2 Mg/1 Ml Inj IV 2 mg Q4H PRN Administration Pain, Moderate (4-6) Morphine Sulfate 4 mg 03/31/22 13:31 Morphine 4 Mg/1 Ml Inj IV Q4H PRN Pain , Severe (7-10) Ondansetron HCl 4 mg 03/31/22 13:31 Ondansetron 4 Mg/2 Ml Inj IV Q8H PRN Nausea And Vomiting Pantoprazole Sodium 40 mg 04/08/22 17:00 04/10/22 17:34 Pantoprazole 40 Mg Tab PO 40 mg BIDDIAB FRANCESCA Administration Quetiapine Fumarate 50 mg 03/31/22 22:00 04/10/22 23:27 Quetiapine 25 Mg Tab PO 50 mg QHS FRANCESCA Administration Sodium Bicarbonate 650 mg 04/06/22 11:00 04/10/22 23:29 Sodium Bicarbonate 650 Mg Tab PO 650 mg BID FRANCESCA Administration Sodium Chloride 10 ml 03/31/22 22:00 04/10/22 23:28 Sodium Chloride 0.9% 10 Ml Flush Syringe IV 10 ml BID FRANCESCA Administration Sodium Chloride 10 ml 03/31/22 13:31 04/03/22 00:54 Sodium Chloride 0.9% 10 Ml Flush Syringe IV 10 ml PRN PRN Administration LINE FLUSH Tamsulosin HCl 0.4 mg 04/01/22 10:00 04/10/22 10:28 Tamsulosin 0.4 Mg Cap PO 0.4 mg QDAY FRANCESCA Administration
[2022-04-11] MEDS: MORPHINE 2 MG/1 ML INJ IV PRN (09:22)
[2022-04-11] MEDS: ASPIRIN 81 MG TAB CHEW PO SCH (09:26)
[2022-04-11] MEDS: FOLIC ACID 1 MG TAB PO SCH (09:27)
[2022-04-11] MEDS: SODIUM BICARBONATE 650 MG TAB PO SCH ×2 (09:27→21:34)
[2022-04-11] MEDS: DOXAZOSIN 4 MG TAB PO SCH (09:27)
[2022-04-11] MEDS: PANTOPRAZOLE 40 MG TAB PO SCH ×2 (09:27→16:30)
[2022-04-11] MEDS: METOPROLOL TARTRATE 100 MG TAB PO SCH ×2 (09:27→21:32)
[2022-04-11] MEDS: CEFEPIME/NS 1 GM/100 ML 1 GM/100 ML BAG IV SCH (09:28)
[2022-04-11] MEDS: AMIODARONE 200 MG TAB PO SCH ×2 (09:29→21:34)
[2022-04-11] MEDS: TAMSULOSIN 0.4 MG CAP PO SCH (09:29)
[2022-04-11 13:58] LABS: Basophils % (Auto) 0.8 % (0.0-1.8); Eosinophils # (Auto) 0.4 K/mm3 (0.0-0.4); Eosinophils % (Auto) 6.1 % (0.0-4.3); Hematocrit 24.7 % (35.5-45.6); Hemoglobin 7.8 gm/dl (11.8-15.2); Lymphocytes # (Auto) 0.7 K/mm3 (1.2-5.4); Lymphocytes % (Auto) 12.1 % (13.4-35.0); Mean Corpuscular HGB Conc 32 % (32-34); Mean Corpuscular Volume 81 fl (84-94); Monocytes # (Auto) 0.1 K/mm3 (0.0-0.8); Monocytes % (Auto) 1.9 % (0.0-7.3); Platelet Count 310 K/mm3 (140-440); Red Blood Count 3.05 M/mm3 (3.65-5.03)
[2022-04-11 14:00] LABS: Red Cell Distribution Width 20.9 % (13.2-15.2)
[2022-04-11 14:19] LABS: Calcium 9.4 mg/dL (8.4-10.2)
[2022-04-11] MEDS ORDERED: DEXTROSE 50% IN WATER (25GM) 50 ML SYRINGE IV ONE (14:55)
[2022-04-11] MEDS ORDERED: SODIUM POLYSTYRENE 15 GM/60 ML ORAL LIQD PO ONE (14:55)
[2022-04-11] MEDS: QUEtiapine 25 MG TAB PO SCH (21:31)
[2022-04-12] MEDS: ALBUTEROL 2.5 MG/3 ML NEBU IH SCH ×4 (00:53→20:15)
[2022-04-12 05:05] LABS: Basophils % (Auto) 0.6 % (0.0-1.8); Eosinophils # (Auto) 0.4 K/mm3 (0.0-0.4); Eosinophils % (Auto) 4.8 % (0.0-4.3); Hematocrit 22.1 % (35.5-45.6); Hemoglobin 6.9 gm/dl (11.8-15.2); Lymphocytes # (Auto) 0.9 K/mm3 (1.2-5.4); Lymphocytes % (Auto) 11.3 % (13.4-35.0); Mean Corpuscular HGB Conc 31 % (32-34); Mean Corpuscular Volume 80 fl (84-94); Monocytes # (Auto) 0.1 K/mm3 (0.0-0.8); Platelet Count 304 K/mm3 (140-440); Red Blood Count 2.75 M/mm3 (3.65-5.03); Red Cell Distribution Width 20.5 % (13.2-15.2)
[2022-04-12] MEDS: ACETAMINOPHEN 325 MG TAB PO PRN ×2 (05:17→23:29)
[2022-04-12] MEDS: MORPHINE 2 MG/1 ML INJ IV PRN ×2 (05:18→11:30)
[2022-04-12 05:45] LABS: Calcium 9.3 mg/dL (8.4-10.2)
[2022-04-12] MEDS: PANTOPRAZOLE 40 MG TAB PO SCH ×2 (07:49→16:12)
--- NOTE | 2022-04-12 07:57 | Progress Note ---
Assessment and Plan 1. Acute kidney injury: Vasomotor MARIE superimposed on CKD in the setting of sepsis/CHF/A.Fib with RVR. Renal US negative. Monitor renal function. Non-oliguric. Creatinine level increasing. Renal prognosis is guarded. Avoid nephrotoxic agents. Meds dosage based on GFR. 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 Patient require hemodialysis due to worsening renal function and associated hyperkalemia. Talked to his brother (POA) over the phone and explained above. He wants to d/w his other brother. Await family decision. 2. FEN: Hyperkalemia, meds ordered, monitor. Hypernatremia, monitor. Hyperchloremic metabolic acidosis, Sod bicarb, monitor. Replete lytes as needed. Monitor lytes and volume status. 3. A.fib with RVR: Amio and Metoprolol. Followed by Cards. Monitor. 4. Acute on chronic systolic congestive heart failure / Non-STEMI: LVEF 25 to 30%. Beta-blockers. Monitor. Followed by Cards. 5. HCAP / UTI / Sepsis: Followed by ID. 6. Acute metabolic encephalopathy, POA: H/o Dementia. Monitor. 7. Microcytic Anemia, POA: Heme positive stool. Trend. Seen by GI. 8. Bladder retention: Arteaga catheter. Subjective: Patient was seen and examined at the bedside. Examination: General appearance: well-developed, appears stated age, no distress HEENT: atraumatic, no icterus Neck: trachea midline Respiratory: ctab Heart: S1S2, no murmur Abdomen: soft, bowel sounds heard, NT Integumentary: no obvious rash Neurologic: alert, not following any command Ext: trace UE edema Subjective Date of service: 04/12/22 Principal diagnosis: anemia Objective - Vital Signs Vital signs: Vital Signs - 12hr 04/11/22 04/11/22 04/11/22 20:21 21:18 21:32 Temperature 99.2 F Pulse Rate 97 H Respiratory 20 Rate Blood Pressure 140/84 140/84 O2 Sat by Pulse 99 Oximetry 04/12/22 04/12/22 00:49 04:47 Temperature 101.1 F H Pulse Rate Respiratory 18 Rate Blood Pressure 137/73 O2 Sat by Pulse 98 Oximetry - Lab 04/12/22 04:40 04/12/22 15:12 Most recent lab results Calcium 9.3 mg/dL (8.4-10.2) 04/12/22 04:40 Magnesium 2.00 mg/dL (1.7-2.3) 04/05/22 05:06 Urine Creatinine 82.0 mg/dL (0.1-20.0) H 04/05/22 18:16 Urine Sodium 107 mmol/L 04/05/22 18:16 Medications & Allergies - Medications Allergies/Adverse Reactions: Allergies lisinopril Allergy (Verified 03/31/22 07:48) Hives Home Medications: Home Medications Medication Instructions Recorded Confirmed Last Taken Type Tamsulosin [Flomax] 0.4 mg PO QDAY #7 cap 08/28/15 04/08/22 Unknown Rx AtorvaSTATin [Lipitor] 40 mg PO QHS 03/11/22 04/08/22 Unknown History metHOTREXate sodium [Methotrexate] 15 mg PO 1XW 03/11/22 04/08/22 Unknown History predniSONE 10 mg PO BID 03/16/22 04/08/22 Unknown History Amiodarone [Cordarone 200 MG TAB] 200 mg PO BID tablet 03/23/22 04/08/22 Unknown Rx Apixaban [Eliquis] 5 mg PO Q12HR tablet 03/23/22 04/08/22 Unknown Rx Aspirin [Aspirin BABY CHEW TAB] 81 mg PO QDAY tab.chew 03/23/22 04/08/22 Unknown Rx Doxazosin [Cardura] 4 mg PO QDAY tablet 03/23/22 04/08/22 Unknown Rx Famotidine [Pepcid] 20 mg PO DAILY tablet 03/23/22 04/08/22 Unknown Rx Metoprolol [Lopressor TAB] 100 mg PO BID tablet 03/23/22 04/08/22 Unknown Rx Nicotine [Habitrol] 21 mg TD QDAY patch 03/23/22 04/08/22 Unknown Rx QUEtiapine [SEROquel] 50 mg PO QHS tablet 03/23/22 04/08/22 Unknown Rx amLODIPine 10 mg PO DAILY #30 tab 03/24/22 04/08/22 Unknown Rx Active Medications: Generic Name Dose Route Start Last Admin Trade Name Freq PRN Reason Stop Dose Admin Acetaminophen 650 mg 03/31/22 13:31 04/12/22 05:17 Acetaminophen 325 Mg Tab PO 650 mg Q4H PRN Administration Pain MILD(1-3)/Fever >100.5/[place] Albuterol 2.5 mg 04/12/22 08:00 Albuterol 2.5 Mg/3 Ml Nebu IH TIDRT [facility] Amiodarone HCl 200 mg 03/31/22 22:00 04/11/22 21:34 Amiodarone 200 Mg Tab PO 200 mg BID FRANCESCA Administration Aspirin 81 mg 04/01/22 10:00 04/11/22 09:26 Aspirin 81 Mg Tab Chew PO 81 mg QDAY FRANCESCA Administration Atorvastatin Calcium 40 mg 03/31/22 22:00 04/11/22 21:34 Atorvastatin 40 Mg Tab PO 40 mg QHS FRANCESCA Administration Doxazosin Mesylate 4 mg 04/01/22 10:00 04/11/22 09:27 Doxazosin 4 Mg Tab PO 4 mg QDAY FRANCESCA Administration Folic Acid 1 mg 04/08/22 10:00 04/11/22 09:27 Folic Acid 1 Mg Tab PO 1 mg DAILY FRANCESCA Administration Cefepime HCl 1 gm in 100 mls @ 200 mls/hr 04/10/22 11:00 04/11/22 09:28 Cefepime/Ns 1 Gm/100 Ml IV 200 mls/hr Q24HR FRANCESCA Administration Protocol Linezolid 600 mg 04/10/22 11:00 04/11/22 21:34 Linezolid 600 Mg Tab PO 600 mg Q12HR FRANCESCA Administration Protocol Methotrexate 15 mg 04/07/22 14:00 04/07/22 14:00 Methotrexate 2.5 Mg Tab (Dose Weekly Only) PO 15 mg Th FRANCESCA Administration Metoprolol Tartrate 100 mg 03/31/22 22:00 04/11/22 21:32 Metoprolol Tartrate 100 Mg Tab PO 100 mg BID FRANCESCA Administration Morphine Sulfate 2 mg 03/31/22 13:31 04/12/22 05:18 Morphine 2 Mg/1 Ml Inj IV 2 mg Q4H PRN Administration Pain, Moderate (4-6) Morphine Sulfate 4 mg 03/31/22 13:31 Morphine 4 Mg/1 Ml Inj IV Q4H PRN Pain , Severe (7-10) Ondansetron HCl 4 mg 03/31/22 13:31 Ondansetron 4 Mg/2 Ml Inj IV Q8H PRN Nausea And Vomiting Pantoprazole Sodium 40 mg 04/08/22 17:00 04/12/22 07:49 Pantoprazole 40 Mg Tab PO 40 mg BIDDIAB FRANCESCA Administration Quetiapine Fumarate 50 mg 03/31/22 22:00 04/11/22 21:31 Quetiapine 25 Mg Tab PO 50 mg QHS FRANCESCA Administration Sodium Bicarbonate 650 mg 04/06/22 11:00 04/11/22 21:34 Sodium Bicarbonate 650 Mg Tab PO 650 mg BID FRANCESCA Administration Sodium Chloride 10 ml 03/31/22 22:00 04/11/22 21:37 Sodium Chloride 0.9% 10 Ml Flush Syringe IV 10 ml BID FRANCESCA Administration Sodium Chloride 10 ml 03/31/22 13:31 04/03/22 00:54 Sodium Chloride 0.9% 10 Ml Flush Syringe IV 10 ml PRN PRN Administration LINE FLUSH Sodium Polystyrene Sulfonate 30 gm 04/12/22 08:00 04/12/22 07:49 Sodium Polystyrene 15 Gm/60 Ml Oral Liqd PO 04/12/22 14:00 30 gm ONCE@0800 NR Administration Tamsulosin HCl 0.4 mg 04/01/22 10:00 04/11/22 09:29 Tamsulosin 0.4 Mg Cap PO 0.4 mg QDAY FRANCESCA Administration
[2022-04-12] MEDS ORDERED: SODIUM POLYSTYRENE 15 GM/60 ML ORAL LIQD PO NR (08:00)
[2022-04-12] MEDS: FOLIC ACID 1 MG TAB PO SCH (09:12)
[2022-04-12] MEDS: SODIUM BICARBONATE 650 MG TAB PO SCH ×2 (09:12→23:31)
[2022-04-12] MEDS: LINEZOLID 600 MG TAB PO SCH ×2 (09:12→23:29)
[2022-04-12] MEDS: AMIODARONE 200 MG TAB PO SCH ×2 (09:12→23:31)
[2022-04-12] MEDS: TAMSULOSIN 0.4 MG CAP PO SCH (09:12)
[2022-04-12] MEDS: ASPIRIN 81 MG TAB CHEW PO SCH (09:12)
[2022-04-12] MEDS: METOPROLOL TARTRATE 100 MG TAB PO SCH ×2 (09:12→23:29)
[2022-04-12] MEDS: DOXAZOSIN 4 MG TAB PO SCH (09:12)
[2022-04-12] MEDS: CEFEPIME/NS 1 GM/100 ML 1 GM/100 ML BAG IV SCH (09:13)
[2022-04-12] MEDS ORDERED: FUROSEMIDE 40 MG/4 ML INJ IV NR (10:00)
--- NOTE | 2022-04-12 10:18 | XRay Report ---
ABDOMEN 1 VIEW 04/12/2022 9:56 AM INDICATION / CLINICAL INFORMATION: verify Dobbhoff tube for feeding. COMPARISON: 03/21/2022 FINDINGS: TUBES / LINES: Feeding tube tip projects at the level of the body of the stomach. BOWEL GAS PATTERN: There is mild gaseous distention of small bowel loops in the mid and lower abdomen . FREE AIR / EXTRALUMINAL GAS: None. ADDITIONAL FINDINGS: No significant additional findings. IMPRESSION: 1. Feeding tube in expected position. Signer Name: Hawk Hogan MD Signed: 04/12/2022 10:13 AM Workstation Name: [id number]
--- NOTE | 2022-04-12 10:41 | Progress Note ---
Assessment and Plan Cultures: COVID-19 PCR: Negative 03/31/2022 blood culture: No growth 04/01/2022 urine culture: VRE - Enterococcus faecium 04/08/2022 COVID-19 PCR: Negative 04/10/2022 blood culture: No growth so far A/P: 67-year-old male with CAD, CKD, atrial fibrillation, vascular dementia was admitted to the hospital on 03/31/2022 with fever and shortness of breath: #New sepsis: ?aspiration. Has gurgling sound with respiration. Chest x-ray shows bibasilar infiltrates. UA without any significant pyuria. Blood culture with no growth so far. #Aspiration pneumonia, Acute hypoxic respiratory failure: on oxygen. #VRE UTI: Asymptomatic bacteriuria, UA without any significant pyuria reflect colonization. #MARIE v/s CKD: Nephrology on board. Creatinine rising. 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 Unclear indication. #Acute encephalopathy: with underlying dementia. Recs: -continue IV Cefepime renally adjusted, Linezolid. ?aspiration pneumonia -if he continues to spike fevers, consider CT chest, abdomen and pelvis without contrast to evaluate for any other source of infection -monitor CBC -overall prognosis appears guarded Juanis Greco MD, FACP, [facility] ([facility] O: [phone] F: [phone] C: [phone] Subjective Date of service: 04/12/22 Principal diagnosis: anemia Interval history: Febrile, T-max 101.1 F. Was restarted on antibiotics yesterday. Creatinine continues to worsen. Friend is at bedside. Patient is drowsy, unable to provide any history. Has gurgling sounds. Objective - Exam Narrative Exam: Physical Exam: Constitutional: drowsy, minimal communication Head, Ears, Nose: Normocephalic, atraumatic. External ears, nose normal Eyes: Conjunctivae/corneas clear. No icterus. No ptosis. Neck: Supple, no meningeal signs Cardiovascular: S1, S2 + Respiratory: b/l rhonchi GI: Soft, non-tender; bowel sounds normal. No peritoneal signs. Condom cath + Musculoskeletal: No pedal edema, no cyanosis. Skin: No rash or abscess Hem/Lymphatic: No palpable cervical or supraclavicular nodes. No lymphangitis Psych: No agitation Neurological: drowsy, minimal communication - Constitutional Vitals: Vital Signs Temp Pulse Resp BP Pulse Ox 101.1 F H 92 H 17 137/73 97 04/12/22 04:47 04/12/22 08:00 04/12/22 08:00 04/12/22 04:47 04/12/22 08:13 Temperature -Last 24 Hours Temperature 101.1 F Temperature 99.2 F Temperature 98.8 F Temperature 98.5 F - Labs CBC & Chem 7: 04/12/22 04:40 04/12/22 04:40 Labs: Abnormal lab results 04/11/22 04/11/22 04/12/22 Range/Units 13:55 13:55 04:40 RBC 3.05 L 2.75 L (3.65-5.03) M/mm3 Hgb 7.8 L 6.9 L (11.8-15.2) gm/dl Hct 24.7 L 22.1 L (35.5-45.6) % MCV 81 L 80 L (84-94) fl MCH 26 L 25 L (28-32) pg MCHC 31 L (32-34) % RDW 20.9 H 20.5 H (13.2-15.2) % Lymph % (Auto) 12.1 L 11.3 L (13.4-35.0) % Eos % (Auto) 6.1 H 4.8 H (0.0-4.3) % Lymph # (Auto) 0.7 L 0.9 L (1.2-5.4) K/mm3 Seg Neutrophils % 79.1 H 81.3 H (40.0-70.0) % Potassium 5.8 H (3.6-5.0) mmol/L Chloride 110.9 H (98-107) mmol/L BUN 48 H (9-20) mg/dL Creatinine 5.3 H (0.8-1.3) mg/dL Glucose 110 H (75-100) mg/dL 04/12/22 Range/Units 04:40 RBC (3.65-5.03) M/mm3 Hgb (11.8-15.2) gm/dl Hct (35.5-45.6) % MCV (84-94) fl MCH (28-32) pg MCHC (32-34) % RDW (13.2-15.2) % Lymph % (Auto) (13.4-35.0) % Eos % (Auto) (0.0-4.3) % Lymph # (Auto) (1.2-5.4) K/mm3 Seg Neutrophils % (40.0-70.0) % Potassium 5.4 H (3.6-5.0) mmol/L Chloride 111.6 H (98-107) mmol/L BUN 51 H (9-20) mg/dL Creatinine 5.8 H (0.8-1.3) mg/dL Glucose (75-100) mg/dL - Imaging and cardiology Chest x-ray: report reviewed, image reviewed (b/l basal airspace opacities)
--- NOTE | 2022-04-12 14:19 | Progress Note ---
Assessment and Plan Assessment and plan: he patient is a 67-year-old male with CAD, CKD, atrial fibrillation, vascular dementia was admitted to the hospital on 03/31/2022 with complaints of fever and shortness of breath of 3 days. Upon evaluation in the ED, T-max of 102.8 F. Also with atrial fibrillation with rapid ventricular rate, leukocytosis. Admitted due to concerns for sepsis from pneumonia. Was started on empiric antibiotics. Urine culture growing VRE.. Echo showed EF of 25 to 30%, cardiology following. Initial chest x-ray on 03/31/2022 showed left upper lobe pneumonia. Interval improvement noted on chest x-ray from 04/03/2022. Hospital course: 04/01/2020; patient is febrile, mild distress, on Vanco and cefepime, follow cultures 04/02; patient's hemoglobin dropped to 6.8, 1 unit PRBC transfusion, Eliquis held, follow stool guaiac Cardiology recommendations noted and appreciated 04/03; received 1 unit PRBC yesterday, Hb today 7.2, closely monitor 04/04; patient completed 5 days of Vanco and cefepime for HCAP Urine cultures positive for VRE, add Zyvox 600 mg IV every 12 Contact isolation, ID consulted 04/05: Final ID no antibiotic treatment necessary for VRE as that could be coloni zation. Continue to monitor for renal function improvement. Plan for colonoscopy on . Continue to monitor H&H. 04/06: Continue to follow serum creatinine, plan for colonoscopy tomorrow. F ollow H&H. Patient also needs placement 04/07: Planned for colonoscopy but patient could not complete bowel prep due to underlying dementia and metabolic encephalopathy Continue supportive care, continue to monitor H&H. Pending placement. Continue to follow renal function. Creatinine 3.2 today with sodium 148. Off Lasix. Repeat BMP tomorrow. 04/08; sodium and creatinine level further increased today. We will start on low volume D5 W. Repeat BMP in the morning, follow urine output. Discussed plan of care with nephrology. Guarded prognosis. 04/09: Patient spiked temp 100.1 yesterday but afebrile now. Continue to follow clinically. Monitor off antibiotics. If continues to spike fever then need to do reculture. Continue low volume D5W, monitor serum creatinine and sodium level. 04/10: -Remains with 101 fever on Monday night, low-grade fever yesterday repeat blood, urine and check CXR and then restart IV Cefepime 1 gm daily + Linezolid 600 mg BID. Monitor renal function. Creatinine level increasing. Renal prognosis is guarded. 04/11: ID restarted cefepime and Zyvox yesterday. Creatinine appears to be worsening but no labs today. Recheck BMP. Etiology appears to be secondary to vasomotor MARIE superimposed on CKD in the setting of sepsis/CHF/A. fib with RVR. Renal ultrasound negative. Continue amiodarone and metoprolol for rate control with A. fib. Continue diuresis with Lasix. No NATALYA inhibitor due to renal insufficiency. 04/12/2022: Continue with antibiotics (cefepime and Zosyn). Continue holding NATALYA inhibitor's/ARB's given patient's worsening renal function. Continue diuresis. Nephrology spoke with the patient's son about the possibility of hemodialysis given the patient's worsening renal function (Creatinine 2.0--> 2.3--> 2.9--> 3.2--> 4.1--> 5.3--> 5.8). Pending repeat BMP given patient's persistent hyperkalemia requiring medical management. Assessment and plan: #MARIE on chronic kidney disease stage III secondary to vasomotor nephropathy Nephrology consulted; appreciate recs. Renally dose meds and avoid nephrotoxic drugs. Continue holding NATALYA inhibitor/ARB's. Continue IV diuresis in the setting of patient being volume overloaded. Nephrology contacted patient's son about the need for possible hemodialysisstill assessing patient for need. #Hospital-acquired pneumonia #Acute hypoxic respiratory failure - etiology: Secondary to hospital-acquired pneumonia - baseline oxygen requirements: Room air - supplemental oxygen: 8 L nasal cannula Unremarkable blood cultures to date. Continue cefepime and Zosyn (restarted on 04/11/2022). - Continue protocol: continue pulse oximetry, wean oxygen as tolerated, ordered incentive spirometry and educated patient on how to use it and its importance. - continue to monitor #VRE UTI (present on admission) #Sepsis secondary to VRE UTI #Acute metabolic encephalopathy Continue contact isolation Continue Zosyn and cefepime. Infectious disease consulted; appreciate recs #Hyperkalemia Potassium 5.4. Pending repeat BMP Initiating medical management (Kayexalate) #Hypernatremiaresolved #Microcytic anemia #Chronic lower GI bleed Hemoglobin 6.9; status post transfusion 1 unit packed RBC. Holding patient's Eliquis given anemia. Gastroenterology consulted; appreciate recs. Colonoscopy initially planned for ; however patient unable to undergo colonoscopy due to incomplete bowel prep and worsening metabolic encephalopathy. Transfuse if hemoglobin <or patient becomes symptomatic. #A. fib with rapid ventricular rate; rate controlled Continue amiodarone, metoprolol Cardiology consulted; appreciate recs. Eliquis currently being held given anemia. #Acute on chronic systolic heart failure LVEF 25 to 30%. Continue diuresis and beta-blockade. Continue holding NATALYA inhibitor and ARB in the setting of MARIE Cardiology consulted; appreciate recs #Non-ST elevation MT (type II) Likely secondary to MARIE on CKD stage III No current intervention at this time. #Moderate protein calorie malnutrition Albumin 2.8 Nutrition supplements, supportive care Nutrition consulted #Tobacco dependence #Tobacco/Smoking cessation counseling - Counseled patient about the importance of smoking cessation and the possible sequelae as a result of continued tobacco consumption. The patient expresses understanding. -Time: +15 mins #Immunocompromised host Seems to be on methotrexate and prednisone as per his home medications. Unclear indication. Critical Care Billing: The high probability of a clinically significant, sudden or life threatening deterioration of the [renal] system(s) required my full and direct attention, intervention and personal management. The aggregate critical care time was [60] minutes. This time is in addition to time spent performing reported procedures but includes the following: [x] Data Review and interpretation [x] Patient assessment and monitoring of vital signs [x] Documentation [x] Medication orders and management Disposition Plan: Continue medical management Total Time Spent with Patient (Minutes): 45 minutes History Interval history: Patient spiked a fever to 101.1 degrees Fahrenheit last night. Hospitalist Physical - Constitutional Vitals: Temp Pulse Resp BP Pulse Ox 98.4 F 87 24 167/80 96 04/12/22 11:16 04/12/22 11:16 04/12/22 11:16 04/12/22 11:16 04/12/22 11:16 General appearance: Present: no acute distress, well-nourished - EENT Eyes: Present: PERRL, EOM intact ENT: hearing intact, clear oral mucosa, dentition normal, other (NG tube in place) - Neck Neck: Present: supple, normal ROM - Respiratory Respiratory effort: normal Respiratory: bilateral: diminished (8 L nasal cannula) - Cardiovascular Rhythm: regular Heart Sounds: Present: S1 & S2 - Extremities Extremities: no ischemia, pulses intact, pulses symmetrical, normal temperature, normal color Extremity abnormal: edema (1+ pitting edema bilateral lower extremities) Peripheral Pulses: within normal limits - Abdominal General gastrointestinal: soft, non-tender, non-distended, normal bowel sounds, other (Arteaga catheter in place) - Integumentary Integumentary: Present: clear, warm, dry - Psychiatric Psychiatric: other (Unable to assess given patient's current clinical status) - Neurologic Neurologic: CNII-XII intact, other (Unable to fully assess given patient's current clinical status) - Allied Health Allied health notes reviewed: nursing HEART Score - HEART Score Troponin: Troponin T 0.135 ng/mL (0.00-0.029) H* 04/03/22 12:29 Results - Labs CBC & Chem 7: 04/12/22 04:40 04/12/22 04:40 Labs: Laboratory Last Values WBC 7.6 K/mm3 (4.5-11.0) 04/12/22 04:40 RBC 2.75 M/mm3 (3.65-5.03) L 04/12/22 04:40 Hgb 6.9 gm/dl (11.8-15.2) L 04/12/22 04:40 Hct 22.1 % (35.5-45.6) L 04/12/22 04:40 MCV 80 fl (84-94) L 04/12/22 04:40 MCH 25 pg (28-32) L 04/12/22 04:40 MCHC 31 % (32-34) L 04/12/22 04:40 RDW 20.5 % (13.2-15.2) H 04/12/22 04:40 Plt Count 304 K/mm3 (140-440) 04/12/22 04:40 Lymph % (Auto) 11.3 % (13.4-35.0) L 04/12/22 04:40 [place] % (Auto) 2.0 % (0.0-7.3) 04/12/22 04:40 Eos % (Auto) 4.8 % (0.0-4.3) H 04/12/22 04:40 Baso % (Auto) 0.6 % (0.0-1.8) 04/12/22 04:40 Lymph # (Auto) 0.9 K/mm3 (1.2-5.4) L 04/12/22 04:40 [place] # (Auto) 0.1 K/mm3 (0.0-0.8) 04/12/22 04:40 Eos # (Auto) 0.4 K/mm3 (0.0-0.4) 04/12/22 04:40 Baso # (Auto) 0.0 K/mm3 (0.0-0.1) 04/12/22 04:40 Add Manual Diff Complete 04/05/22 05:06 Total Counted 100 04/05/22 05:06 Seg Neutrophils % 81.3 % (40.0-70.0) H 04/12/22 04:40 Seg Neuts % (Manual) 93.0 % (40.0-70.0) H 04/05/22 05:06 Band Neutrophils % 1.0 % 04/05/22 05:06 Lymphocytes % (Manual) 2.0 % (13.4-35.0) L 04/05/22 05:06 Reactive Lymphs % (Man) 0 % 04/05/22 05:06 Monocytes % (Manual) 1.0 % (0.0-7.3) 04/05/22 05:06 Eosinophils % (Manual) 3.0 % (0.0-4.3) 04/05/22 05:06 Basophils % (Manual) 0 % (0.0-1.8) 04/05/22 05:06 Metamyelocytes % 0 % 04/05/22 05:06 Myelocytes % 0 % 04/05/22 05:06 Promyelocytes % 0 % 04/05/22 05:06 Blast Cells % 0 % 04/05/22 05:06 Nucleated RBC % Not Reportable 04/05/22 05:06 Seg Neutrophils # 6.2 K/mm3 (1.8-7.7) 04/12/22 04:40 Seg Neutrophils # Man 7.4 K/mm3 (1.8-7.7) 04/05/22 05:06 Band Neutrophils # 0.1 K/mm3 04/05/22 05:06 Lymphocytes # (Manual) 0.2 K/mm3 (1.2-5.4) L 04/05/22 05:06 Abs React Lymphs (Man) 0.0 K/mm3 04/05/22 05:06 Monocytes # (Manual) 0.1 K/mm3 (0.0-0.8) 04/05/22 05:06 Eosinophils # (Manual) 0.2 K/mm3 (0.0-0.4) 04/05/22 05:06 Basophils # (Manual) 0.0 K/mm3 (0.0-0.1) 04/05/22 05:06 Metamyelocytes # 0.0 K/mm3 04/05/22 05:06 Myelocytes # 0.0 K/mm3 04/05/22 05:06 Promyelocytes # 0.0 K/mm3 04/05/22 05:06 Blast Cells # 0.0 K/mm3 04/05/22 05:06 WBC Morphology Not Reportable 04/05/22 05:06 Hypersegmented Neuts Not Reportable 04/05/22 05:06 Hyposegmented Neuts Not Reportable 04/05/22 05:06 Hypogranular Neuts Not Reportable 04/05/22 05:06 Smudge Cells Not Reportable 04/05/22 05:06 Toxic Granulation Not Reportable 04/05/22 05:06 Toxic Vacuolation Not Reportable 04/05/22 05:06 Dohle Bodies Not Reportable 04/05/22 05:06 Pelger-Huet Anomaly Not Reportable 04/05/22 05:06 Marylin Rods Not Reportable 04/05/22 05:06 Platelet Estimate Consistent w auto 04/05/22 05:06 Clumped Platelets Not Reportable 04/05/22 05:06 Plt Clumps, EDTA Not Reportable 04/05/22 05:06 Large Platelets Not Reportable 04/05/22 05:06 Giant Platelets Not Reportable 04/05/22 05:06 Platelet Satelliting Not Reportable 04/05/22 05:06 Plt Morphology Comment Not Reportable 04/05/22 05:06 RBC Morphology Not Reportable 04/05/22 05:06 Dimorphic RBCs Not Reportable 04/05/22 05:06 Polychromasia Not Reportable 04/05/22 05:06 Hypochromasia Not Reportable 04/05/22 05:06 Poikilocytosis 1+ 04/05/22 05:06 Anisocytosis 1+ 04/05/22 05:06 Microcytosis Not Reportable 04/05/22 05:06 Macrocytosis Not Reportable 04/05/22 05:06 Spherocytes 1+ 04/05/22 05:06 Pappenheimer Bodies Not Reportable 04/05/22 05:06 Sickle Cells Not Reportable 04/05/22 05:06 Target Cells Few 04/05/22 05:06 Tear Drop Cells Not Reportable 04/05/22 05:06 Ovalocytes 1+ 04/05/22 05:06 Helmet Cells Not Reportable 04/05/22 05:06 [place] Bodies Not Reportable 04/05/22 05:06 [place] Rings Not Reportable 04/05/22 05:06 [place] Cells Few 04/05/22 05:06 Bite Cells Not Reportable 04/05/22 05:06 Crenated Cell Not Reportable 04/05/22 05:06 Elliptocytes 1+ 04/05/22 05:06 Acanthocytes (Spur) Not Reportable 04/05/22 05:06 Rouleaux Not Reportable 04/05/22 05:06 Hemoglobin C Crystals Not Reportable 04/05/22 05:06 Schistocytes Not Reportable 04/05/22 05:06 Malaria parasites Not Reportable 04/05/22 05:06 Cristino Bodies Not Reportable 04/05/22 05:06 Hem Pathologist Commnt No 04/05/22 05:06 Sodium 145 mmol/L (137-145) 04/12/22 04:40 Potassium 5.4 mmol/L (3.6-5.0) H 04/12/22 04:40 Chloride 111.6 mmol/L (98-107) H 04/12/22 04:40 Carbon Dioxide 23 mmol/L (22-30) 04/12/22 04:40 Anion Gap 16 mmol/L 04/12/22 04:40 BUN 51 mg/dL (9-20) H 04/12/22 04:40 Creatinine 5.8 mg/dL (0.8-1.3) H 04/12/22 04:40 Estimated GFR 12 ml/min 04/12/22 04:40 BUN/Creatinine Ratio 9 % 04/12/22 04:40 Glucose 79 mg/dL (75-100) 04/12/22 04:40 POC Glucose 87 mg/dL (70-105) 04/12/22 07:07 Lactic Acid 1.20 mmol/L (0.7-2.0) 03/31/22 08:00 Calcium 9.3 mg/dL (8.4-10.2) 04/12/22 04:40 Magnesium 2.00 mg/dL (1.7-2.3) 04/05/22 05:06 Total Bilirubin 0.50 mg/dL (0.1-1.2) 04/05/22 05:06 AST 9 units/L (5-40) 04/05/22 05:06 ALT 7 units/L (7-56) 04/05/22 05:06 Alkaline Phosphatase 80 units/L (35-129) 04/05/22 05:06 Total Creatine Kinase 55 units/L (55-170) 03/31/22 08:00 Troponin T 0.135 ng/mL (0.00-0.029) H* 04/03/22 12:29 NT-Pro-B Natriuret Pep 79330 pg/mL (0-900) H 03/31/22 08:00 Total Protein 5.8 g/dL (6.3-8.2) L 04/05/22 05:06 Albumin 2.0 g/dL (3.9-5) L 04/05/22 05:06 Albumin/Globulin Ratio 0.5 % 04/05/22 05:06 Triglycerides 76 mg/dL (2-149) 03/31/22 08:00 Cholesterol 109 mg/dL (50-199) 03/31/22 08:00 LDL Cholesterol Direct 55 mg/dL (50-130) 03/31/22 08:00 HDL Cholesterol 38 mg/dL (40-59) L 03/31/22 08:00 Cholesterol/HDL Ratio 2.86 % 03/31/22 08:00 Procalcitonin 0.36 ng/mL (<0.15) 03/31/22 08:00 Urine Color Yellow (Yellow) 04/10/22 17:00 Urine Turbidity Slightly cloudy (Clear) 04/10/22 17:00 Specific [place] (Man) 1.010 (1.003-1.030) 04/10/22 17:00 Ur Protein (Man) 2+ mg/dL (Negative) 04/10/22 17:00 Ur Ketones (Man) Negative (Negative) 04/10/22 17:00 Ur Nitrite (Man) Negative (Negative) 04/10/22 17:00 Ur Reducing Substances Not Reportable 04/10/22 17:00 Urine Bilirubin (Man) Negative (Negative) 04/10/22 17:00 Urine Ictotest Not Reportable 04/10/22 17:00 Leukocyte Esterase (Man) Negative (Negative) 04/10/22 17:00 Urine WBC (Auto) 2.0 /HPF (0.0-6.0) 04/10/22 17:00 Urine RBC (Auto) 4.0 /HPF (0.0-6.0) 04/10/22 17:00 Urine Bacteria (Auto) 2+ /HPF (Negative) 04/10/22 17:00 Urine RBC (Manual) 3+ (Negative) 04/10/22 17:00 Granular Casts 6 /LPF 04/01/22 05:20 RBC Casts 7 /LPF 04/01/22 05:20 Urine Yeast (Budding) 3+ /HPF 04/10/22 17:00 Urine Creatinine 82.0 mg/dL (0.1-20.0) H 04/05/22 18:16 Urine Sodium 107 mmol/L 04/05/22 18:16 Random Vancomycin 18.2 ug/mL (0-40.0) 04/06/22 05:46 SARS-CoV-2 (PCR) Negative (Negative) 04/08/22 09:45 Blood Type O POSITIVE 04/02/22 11:45 Antibody Screen Negative 04/02/22 11:45 Crossmatch See Detail 04/02/22 11:45 Microbiology: Microbiology 04/10/22 11:19 Peripheral/Venous Blood Culture - Preliminary NO GROWTH AFTER 48 HOURS 04/10/22 09:58 Peripheral/Venous Blood Culture - Preliminary NO GROWTH AFTER 48 HOURS Arteaga/IV: Voiding Method Indwelling Catheter Active Medications - Current Medications Current Medications: Generic Name Dose Route Start Last Admin Trade Name Freq PRN Reason Stop Dose Admin Acetaminophen 650 mg 03/31/22 13:31 04/12/22 05:17 Acetaminophen 325 Mg Tab PO 650 mg Q4H PRN Administration Pain MILD(1-3)/Fever >100.5/[place] Albuterol 2.5 mg 04/12/22 08:00 04/12/22 08:11 Albuterol 2.5 Mg/3 Ml Nebu IH 2.5 mg TIDRT FRANCESCA Administration Amiodarone HCl 200 mg 03/31/22 22:00 04/12/22 09:12 Amiodarone 200 Mg Tab PO 200 mg BID FRANCESCA Administration Aspirin 81 mg 04/01/22 10:00 04/12/22 09:12 Aspirin 81 Mg Tab Chew PO 81 mg QDAY FRANCESCA Administration Atorvastatin Calcium 40 mg 03/31/22 22:00 04/11/22 21:34 Atorvastatin 40 Mg Tab PO 40 mg QHS FRANCESCA Administration Doxazosin Mesylate 4 mg 04/01/22 10:00 04/12/22 09:12 Doxazosin 4 Mg Tab PO 4 mg QDAY FRANCESCA Administration Folic Acid 1 mg 04/08/22 10:00 04/12/22 09:12 Folic Acid 1 Mg Tab PO 1 mg DAILY FRANCESCA Administration Furosemide 40 mg 04/12/22 10:00 04/12/22 10:09 Furosemide 40 Mg/4 Ml Inj IV 04/12/22 15:00 40 mg ONCE@1000 NR Administration Cefepime HCl 1 gm in 100 mls @ 200 mls/hr 04/10/22 11:00 04/12/22 09:13 Cefepime/Ns 1 Gm/100 Ml IV 200 mls/hr Q24HR FRANCESCA Administration Protocol Linezolid 600 mg 04/10/22 11:00 04/12/22 09:12 Linezolid 600 Mg Tab PO 600 mg Q12HR FRANCESCA Administration Protocol Methotrexate 15 mg 04/07/22 14:00 04/07/22 14:00 Methotrexate 2.5 Mg Tab (Dose Weekly Only) PO 15 mg Th FRANCESCA Administration Metoprolol Tartrate 100 mg 03/31/22 22:00 04/12/22 09:12 Metoprolol Tartrate 100 Mg Tab PO 100 mg BID FRANCESCA Administration Morphine Sulfate 2 mg 03/31/22 13:31 04/12/22 11:30 Morphine 2 Mg/1 Ml Inj IV 2 mg Q4H PRN Administration Pain, Moderate (4-6) Morphine Sulfate 4 mg 03/31/22 13:31 Morphine 4 Mg/1 Ml Inj IV Q4H PRN Pain , Severe (7-10) Ondansetron HCl 4 mg 03/31/22 13:31 Ondansetron 4 Mg/2 Ml Inj IV Q8H PRN Nausea And Vomiting Pantoprazole Sodium 40 mg 04/08/22 17:00 04/12/22 07:49 Pantoprazole 40 Mg Tab PO 40 mg BIDDIAB FRANCESCA Administration Quetiapine Fumarate 50 mg 03/31/22 22:00 04/11/22 21:31 Quetiapine 25 Mg Tab PO 50 mg QHS FRANCESCA Administration Sodium Bicarbonate 650 mg 04/06/22 11:00 04/12/22 09:12 Sodium Bicarbonate 650 Mg Tab PO 650 mg BID FRANCESCA Administration Sodium Chloride 10 ml 03/31/22 22:00 04/12/22 09:13 Sodium Chloride 0.9% 10 Ml Flush Syringe IV 10 ml BID FRANCESCA Administration Sodium Chloride 10 ml 03/31/22 13:31 04/03/22 00:54 Sodium Chloride 0.9% 10 Ml Flush Syringe IV 10 ml PRN PRN Administration LINE FLUSH Tamsulosin HCl 0.4 mg 04/01/22 10:00 04/12/22 09:12 Tamsulosin 0.4 Mg Cap PO 0.4 mg QDAY FRANCESCA Administration Nutrition/Malnutrition Assess - Dietary Evaluation Nutrition/Malnutrition Findings: Nutrition Notes Start: 04/01/22 10:53 Freq: Status: Active Protocol: Document 04/12/22 13:40 ABDIAS (Rec: 04/12/22 14:10 ABDIAS [id number]) Nutrition Notes Initial or Follow up Reassessment Current Diagnosis Acute Kidney Injury,CKD(stage I-IV),Coronary Artery Disease, Sepsis,Hypertension, Respiratory Failure, Malnutrition,Hyperlipidemia Other Pertinent Diagnosis Metabolic Encephalopathy, UTI, HCAP, Anemia, GI Bleed, NSTEMI II, ... Current Diet TF-Nepro w/CARBSTEADY @ 45 ml/ hr (from D 04/12). Labs/Tests 04/12: K 5.4, Cl 111.6, BUN 51 , Crea 5.8. Pertinent Medications 04/12: Astrovastatin, Folic acid, Lasix, others nutritionally unremarkable. Height 5 ft 9 in Weight 77 kg [place] Body Weight (kg) 72.72 BMI 25.0 Weight change and time frame No body weight change reported in 1 week. Weight Status Overweight Subjective/Other Information RD consult for write/manage TF assessment. Due to risk for aspiration, a Dubhoff-tube was placed and TF ordered. I will prescribe TF to provide Pt with energy/protein needs during LOS. Pt is on Venturi Mask+, O2 saturation @ 99%, according to Physical Assessment History notes. Percent of energy/protein needs met: Prescribed TF-Nepro w/ CARBSTEADY @ 45 ml/hr provides for energy/protein needs (1, 925 Kcal/87 g) during LOS, 100 % Kcal; 100% AA. Burn Absent Trauma Absent GI Symptoms Other Difficulty In Chewing Food Allergy No Skin Integrity/Comment Assessment WNL. Current % PO Negligible Minimum of two criteria No Energy Intake (non-severe) <75% Estimated Energy Requirement >7 days Fluid Accumulation N/A Reduced Elevator Pilot Strength N/A (non-severe) Protein-Calorie Malnutrition N\A #2 Nutrition Diagnosis Altered nutrition-related laboratory values Comments: 04/12: K 5.4, Cl 111.6, BUN 51 , Crea 5.8. Diagnosis Progress(for reassessment Continues documentation) #1 Nutrition Diagnosis Inadequate oral intake, Inadequate protein-energy intake Comments: Change Nutrition Diagnosis for precision. Etiology Risk for aspiration. Diagnosis Progress(for reassessment Continues documentation) Is patient on ventilator? No Is Patient Ambulatory and/or Out of Bed No REE-([facility]-confined to bed) 1853.868 Kcal/Kg value to use for calculation 25 Approximate Energy Requirements Using 1925 kcal/Kg Calculation Used for Recommendations Kcal/kg Additional Notes Protein: 0.8-1.2 g/Kg ABW; 62- 92 g/day. Fluids: 1 ml/Kcal, or as per MD. Nutrition Intervention Change Diet Order: Discontinued. Nutrition Support: Start TF-Nepro w/CARBSTEADY @ 45 ml/hr. Flush: 200 ml water Q 4 hr, or as per MD. Kcal 1,925 Protein (gm) 87 Carbohydrates (gm) 172 Fat (gm) 103 Fluid (mL) 777 Fiber (gm) 13 % RDI: 100% Kcal; 100% AA. Add Supplement/Snack (indicate name/kcal Discontinued. /protein ) Goal #1 Provide at least 75% of energy /protein needs through Enteral Feeding during LOS. Goal #2 Adjust the dietary intervention to better serve Pt's needs and clinical conditions during LOS. Follow-Up By: 04/15/22 Additional Comments Start monitoring TF tolerance and BM.
[2022-04-12 15:51] LABS: Calcium 9.2 mg/dL (8.4-10.2)
[2022-04-12] MEDS: QUEtiapine 25 MG TAB PO SCH (23:30)
[2022-04-13] MEDS: ALBUTEROL 2.5 MG/3 ML NEBU IH SCH ×3 (09:10→20:56)
[2022-04-13] MEDS ORDERED: SODIUM CHLORIDE 0.9% 100 ML IV PRN (10:24)
[2022-04-13] MEDS ORDERED: HEPARIN 10,000 UNITS/10 ML VIAL IV PRN (10:24)
[2022-04-13] MEDS ORDERED: EPOETIN ALFA-EPBX 20,000 UNIT/1 ML VIAL SUB-Q PRN (10:24)
--- NOTE | 2022-04-13 10:44 | Progress Note ---
Assessment and Plan Cultures: COVID-19 PCR: Negative 03/31/2022 blood culture: No growth 04/01/2022 urine culture: VRE - Enterococcus faecium 04/08/2022 COVID-19 PCR: Negative 04/10/2022 blood culture: No growth so far A/P: 67-year-old male with CAD, CKD, atrial fibrillation, vascular dementia was admitted to the hospital on 03/31/2022 with fever and shortness of breath: #New sepsis: ?aspiration. Has gurgling sound with respiration. Chest x-ray shows bibasilar infiltrates. UA without any significant pyuria. Blood culture with no growth so far. #Aspiration pneumonia, Acute hypoxic respiratory failure: on oxygen. #VRE UTI: Asymptomatic bacteriuria, UA without any significant pyuria reflect colonization. #MARIE v/s CKD: Nephrology on board. Creatinine rising. 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 Unclear indication. #Acute encephalopathy: with underlying dementia. Recs: -continue IV Cefepime renally adjusted, Linezolid for suspected aspiration pneumonia -if he spikes another fever while on abx, consider CT chest, abdomen and pelvis without contrast to evaluate for any other source of infection -overall prognosis appears guarded, noted plans for possible HD Juanis Greco MD, FACP, [facility] ([facility] O: [phone] F: [phone] C: [phone] Subjective Date of service: 04/13/22 Principal diagnosis: anemia Interval history: Low grade temp. More awake today, on ventimask. Has NG tube with tube feeds. Poor historian. Objective - Exam Narrative Exam: Physical Exam: Constitutional: more awake Head, Ears, Nose: Normocephalic, atraumatic. External ears, nose normal Eyes: Conjunctivae/corneas clear. No icterus. No ptosis. Neck: Supple, no meningeal signs Cardiovascular: S1, S2 + Respiratory: b/l rhonchi GI: Soft, non-tender; bowel sounds normal. No peritoneal signs. Condom cath + Musculoskeletal: No pedal edema, no cyanosis. Skin: No rash or abscess Hem/Lymphatic: No palpable cervical or supraclavicular nodes. No lymphangitis Psych: No agitation Neurological: awake. - Constitutional Vitals: Vital Signs Temp Pulse Resp BP Pulse Ox 99.4 F 85 20 129/69 100 04/13/22 05:53 04/13/22 09:10 04/13/22 09:10 04/13/22 05:53 04/13/22 09:14 Temperature -Last 24 Hours Temperature 99.4 F Temperature 100.3 F Temperature 99.0 F Temperature 98.4 F - Labs CBC & Chem 7: 04/12/22 04:40 04/12/22 15:12 Labs: Abnormal lab results 04/12/22 04/12/22 04/13/22 Range/Units 15:12 23:27 06:02 Chloride 110.6 H (98-107) mmol/L BUN 54 H (9-20) mg/dL Creatinine 5.9 H (0.8-1.3) mg/dL POC Glucose 109 H 111 H (70-105) mg/dL
[2022-04-13] MEDS: FOLIC ACID 1 MG TAB PO SCH (12:08)
[2022-04-13] MEDS: AMIODARONE 200 MG TAB PO SCH ×2 (12:08→22:48)
[2022-04-13] MEDS: TAMSULOSIN 0.4 MG CAP PO SCH (12:08)
[2022-04-13] MEDS: ASPIRIN 81 MG TAB CHEW PO SCH (12:08)
[2022-04-13] MEDS: PANTOPRAZOLE 40 MG TAB PO SCH ×2 (12:08→19:21)
[2022-04-13] MEDS: DOXAZOSIN 4 MG TAB PO SCH (12:08)
[2022-04-13] MEDS: METOPROLOL TARTRATE 100 MG TAB PO SCH (12:08)
[2022-04-13] MEDS: SODIUM BICARBONATE 650 MG TAB PO SCH ×2 (12:09→22:47)
[2022-04-13] MEDS: CEFEPIME/NS 1 GM/100 ML 1 GM/100 ML BAG IV SCH ×2 (12:09→13:57)
[2022-04-13] MEDS: LINEZOLID 600 MG TAB PO SCH ×2 (12:09→22:47)
--- NOTE | 2022-04-13 12:22 | Consultation ---
History of Present Illness - Reason for Consult Consult date: 04/13/22 Vas-Cath Insertion Requesting physician: YANETH VALADEZ - History of Present Illness The patient is a 67-year-old male with a history of vascular dementia and cardiomyopathy with an EF of 25 to 30% who was admitted with complaints of chest pain and shortness of breath. Upon admission to the emergency department he was found to be in A. fib with RVR as well as having a left upper lobe pneumonia. Urine cultures eventually revealed a UTI for which the patient was started on antibiotics as well as for his pneumonia. On admission the patient had a creatinine of 2.3 however that is progressively worsened increasing to 5.9 with hyperkalemia. I am unable to gain any additional history from the patient secondary to his mental status. Past History Past Medical History: atrial fib, CAD, heart failure, hypertension, hyperlipidemia, renal failure, other (Dementia, BPH, cardiomyopathy) Past Surgical History: No surgical history Social history: smoking (History of tobacco use). denies: alcohol abuse, prescription drug abuse Family history: no significant family history Medications and Allergies Allergies Allergy/AdvReac Type Severity Reaction Status Date / Time lisinopril Allergy Hives Verified 03/31/22 07:48 Home Medications Medication Instructions Recorded Confirmed Last Taken Type Tamsulosin [Flomax] 0.4 mg PO QDAY #7 cap 08/28/15 04/08/22 Unknown Rx AtorvaSTATin [Lipitor] 40 mg PO QHS 03/11/22 04/08/22 Unknown History metHOTREXate sodium [Methotrexate] 15 mg PO 1XW 03/11/22 04/08/22 Unknown History predniSONE 10 mg PO BID 03/16/22 04/08/22 Unknown History Amiodarone [Cordarone 200 MG TAB] 200 mg PO BID tablet 03/23/22 04/08/22 Unknown Rx Apixaban [Eliquis] 5 mg PO Q12HR tablet 03/23/22 04/08/22 Unknown Rx Aspirin [Aspirin BABY CHEW TAB] 81 mg PO QDAY tab.chew 03/23/22 04/08/22 Unknown Rx Doxazosin [Cardura] 4 mg PO QDAY tablet 03/23/22 04/08/22 Unknown Rx Famotidine [Pepcid] 20 mg PO DAILY tablet 03/23/22 04/08/22 Unknown Rx Metoprolol [Lopressor TAB] 100 mg PO BID tablet 03/23/22 04/08/22 Unknown Rx Nicotine [Habitrol] 21 mg TD QDAY patch 03/23/22 04/08/22 Unknown Rx QUEtiapine [SEROquel] 50 mg PO QHS tablet 03/23/22 04/08/22 Unknown Rx amLODIPine 10 mg PO DAILY #30 tab 03/24/22 04/08/22 Unknown Rx Active Meds: Active Medications Acetaminophen (Acetaminophen 325 Mg Tab) 650 mg PO Q4H PRN PRN Reason: Pain MILD(1-3)/Fever >100.5/[place] Last Admin: 04/12/22 23:29 Dose: 650 mg Albuterol (Albuterol 2.5 Mg/3 Ml Nebu) 2.5 mg IH TIDRT [facility] Last Admin: 04/13/22 09:10 Dose: 2.5 mg Amiodarone HCl (Amiodarone 200 Mg Tab) 200 mg PO BID [facility] Last Admin: 04/13/22 12:08 Dose: Not Given Aspirin (Aspirin 81 Mg Tab Chew) 81 mg PO QDAY [facility] Last Admin: 04/13/22 12:08 Dose: Not Given Atorvastatin Calcium (Atorvastatin 40 Mg Tab) 40 mg PO QHS [facility] Last Admin: 04/12/22 23:31 Dose: 40 mg Doxazosin Mesylate (Doxazosin 4 Mg Tab) 4 mg PO QDAY [facility] Last Admin: 04/13/22 12:08 Dose: Not Given Epoetin Gordon-epbx (Epoetin Gordon-Epbx 20,000 Unit/1 Ml Vial) 20,000 unit SUB-Q CORINNE PRN PRN Reason: hemodialysis Folic Acid (Folic Acid 1 Mg Tab) 1 mg PO DAILY [facility] Last Admin: 04/13/22 12:08 Dose: Not Given Heparin Sodium (Porcine) (Heparin 10,000 Units/10 Ml Vial) 3,000 unit IV CORINNE PRN PRN Reason: hemodialysis Cefepime HCl (Cefepime/Ns 1 Gm/100 Ml) 1 gm in 100 mls @ 200 mls/hr IV Q24HR [facility]; Protocol Last Admin: 04/13/22 12:09 Dose: Not Given Sodium Chloride (Nacl 0.9%) 100 mls @ 999 mls/hr IV CORINNE PRN PRN Reason: Hypotension Linezolid (Linezolid 600 Mg Tab) 600 mg PO Q12HR [facility]; Protocol Last Admin: 04/13/22 12:09 Dose: Not Given Methotrexate (Methotrexate 2.5 Mg Tab (Dose Weekly Only)) 15 mg PO Th [facility] Last Admin: 04/07/22 14:00 Dose: 15 mg Metoprolol Tartrate (Metoprolol Tartrate 100 Mg Tab) 100 mg PO BID [facility] Last Admin: 04/13/22 12:08 Dose: Not Given Morphine Sulfate (Morphine 2 Mg/1 Ml Inj) 2 mg IV Q4H PRN PRN Reason: Pain, Moderate (4-6) Last Admin: 04/12/22 11:30 Dose: 2 mg Morphine Sulfate (Morphine 4 Mg/1 Ml Inj) 4 mg IV Q4H PRN PRN Reason: Pain , Severe (7-10) Ondansetron HCl (Ondansetron 4 Mg/2 Ml Inj) 4 mg IV Q8H PRN PRN Reason: Nausea And Vomiting Pantoprazole Sodium (Pantoprazole 40 Mg Tab) 40 mg PO BIDDIAB [facility] Last Admin: 04/13/22 12:08 Dose: Not Given Quetiapine Fumarate (Quetiapine 25 Mg Tab) 50 mg PO QHS [facility] Last Admin: 04/12/22 23:30 Dose: 50 mg Sodium Bicarbonate (Sodium Bicarbonate 650 Mg Tab) 650 mg PO BID [facility] Last Admin: 04/13/22 12:09 Dose: Not Given Sodium Chloride (Sodium Chloride 0.9% 10 Ml Flush Syringe) 10 ml IV BID [facility] Last Admin: 04/13/22 12:09 Dose: Not Given Sodium Chloride (Sodium Chloride 0.9% 10 Ml Flush Syringe) 10 ml IV PRN PRN PRN Reason: LINE FLUSH Last Admin: 04/03/22 00:54 Dose: 10 ml Tamsulosin HCl (Tamsulosin 0.4 Mg Cap) 0.4 mg PO QDAY [facility] Last Admin: 04/13/22 12:08 Dose: Not Given Review of Systems ROS unobtainable: due to mental status Exam - Constitutional Vitals: Temp Pulse Resp BP Pulse Ox 99.0 F 87 22 139/73 100 04/13/22 10:41 04/13/22 10:41 04/13/22 10:41 04/13/22 10:41 04/13/22 10:41 General appearance: Present: no acute distress, other (Patient on a Ventimask) - Respiratory Respiratory effort: normal - Cardiovascular Rhythm: irregularly irregular - Extremities Extremities: no ischemia - Abdominal General gastrointestinal: Present: soft Male genitourinary: Present: deferred - Rectal Rectal Exam: deferred Results - Labs CBC & Chem 7: 04/12/22 04:40 04/12/22 15:12 Labs: Abnormal lab results 04/12/22 04/12/22 04/13/22 Range/Units 15:12 23:27 06:02 Chloride 110.6 H (98-107) mmol/L BUN 54 H (9-20) mg/dL Creatinine 5.9 H (0.8-1.3) mg/dL POC Glucose 109 H 111 H (70-105) mg/dL Assessment and Plan The patient is a 67-year-old male with history of acute on chronic renal insufficiency who is in need of dialysis access. Given infectious process as well as the need for Ventimask and Dobbhoff feeding tube we will elect to place a Vas-Cath at this time. If the patient's renal failure does not improve he will require exchange to a permacath prior to discharge.
--- NOTE | 2022-04-13 12:52 | Operative Report ---
Operative Report Operative Report: Date of Procedure: 04/13/2022 Pre-operative Diagnosis: Acute on Chronic Renal Failure Post-operative Diagnosis: Same Procedure(s): 1. Ultrasound-Guided Access Right Internal Jugular Vein 2. Placement of 15 Persian PreCurved Vas-Cath 3. Radiologic Supervision with Interpretation Surgeon: John Martin M.D. Cook [place]: None Anesthesia: 2% Lidocaine EBL: Minimal Counts: Correct Complications: None Condition: Stable Findings: Vas-Cath was placed with distal tip in the superior vena cava and there was no pneumothorax at the completion of the case. Specimen: None Indication: The patient is a 67-year-old male who presented with acute on chronic renal sufficiency secondary to A. fib with RVR and sepsis. He is in need of dialysis access and requires placement of a Vas-Cath. His brother was given the risk, benefits, and alternative procedures and consented to the procedure. Description of Procedure: The patient was brought to the [facility] and laid in supine position. After timeout was performed his right neck and chest were prepped and draped in normal sterile fashion. Ultrasound was used to identify the right internal jugular vein to confirm patency. Once patency was confirmed the overlying skin and soft tissue was anesthetized with lidocaine. An 11 blade was used to make a small stab incision and then a curved hemostat was used to bluntly dissect down to the anterior surface of the right internal jugular vein. A 21-gauge micropuncture needle was used ultrasound guidance to access the right internal jugular vein and then a 0.018 micropuncture wire was advanced into the vein and down into the inferior vena cava under fluoroscopy. The needle was removed and a micropunc ture sheath was placed by Seldinger technique. The dilator and wire were removed and a 0.035 J-wire was advanced into the inferior vena cava to anchor the wire. The micropuncture sheath was removed and the tract was dilated. The Vas-Cath was then inserted by Seldinger technique. Both ports easily aspirated and flushed were primed with appropriate amount of heparin. The catheter was secured in position with a 2-0 Ethilon in interrupted fashion and dressed with a sterile dressing. Final fluoroscopy demonstrated the catheter was in adequate position and there was no evidence of pneumothorax at the completion of the case. The patient tolerated the procedure well and was transported to recovery in stable condition.
[2022-04-13 15:00] LABS: Basophils % (Auto) 0.8 % (0.0-1.8); Eosinophils # (Auto) 0.5 K/mm3 (0.0-0.4); Eosinophils % (Auto) 10.7 % (0.0-4.3); Hematocrit 22.4 % (35.5-45.6); Lymphocytes % (Auto) 22.3 % (13.4-35.0); Mean Corpuscular HGB Conc 31 % (32-34); Mean Corpuscular Volume 81 fl (84-94); Monocytes # (Auto) 0.1 K/mm3 (0.0-0.8); Monocytes % (Auto) 2.9 % (0.0-7.3); Platelet Count 289 K/mm3 (140-440); Red Blood Count 2.75 M/mm3 (3.65-5.03)
[2022-04-13 15:07] LABS: Red Cell Distribution Width 20.9 % (13.2-15.2)
--- NOTE | 2022-04-13 15:38 | Progress Note ---
Assessment and Plan Assessment and plan: he patient is a 67-year-old male with CAD, CKD, atrial fibrillation, vascular dementia was admitted to the hospital on 03/31/2022 with complaints of fever and shortness of breath of 3 days. Upon evaluation in the ED, T-max of 102.8 F. Also with atrial fibrillation with rapid ventricular rate, leukocytosis. Admitted due to concerns for sepsis from pneumonia. Was started on empiric antibiotics. Urine culture growing VRE.. Echo showed EF of 25 to 30%, cardiology following. Initial chest x-ray on 03/31/2022 showed left upper lobe pneumonia. Interval improvement noted on chest x-ray from 04/03/2022. Hospital course: 04/01/2020; patient is febrile, mild distress, on Vanco and cefepime, follow cultures 04/02; patient's hemoglobin dropped to 6.8, 1 unit PRBC transfusion, Eliquis held, follow stool guaiac Cardiology recommendations noted and appreciated 04/03; received 1 unit PRBC yesterday, Hb today 7.2, closely monitor 04/04; patient completed 5 days of Vanco and cefepime for HCAP Urine cultures positive for VRE, add Zyvox 600 mg IV every 12 Contact isolation, ID consulted 04/05: Final ID no antibiotic treatment necessary for VRE as that could be coloni zation. Continue to monitor for renal function improvement. Plan for colonoscopy on . Continue to monitor H&H. 04/06: Continue to follow serum creatinine, plan for colonoscopy tomorrow. F ollow H&H. Patient also needs placement 04/07: Planned for colonoscopy but patient could not complete bowel prep due to underlying dementia and metabolic encephalopathy Continue supportive care, continue to monitor H&H. Pending placement. Continue to follow renal function. Creatinine 3.2 today with sodium 148. Off Lasix. Repeat BMP tomorrow. 04/08; sodium and creatinine level further increased today. We will start on low volume D5 W. Repeat BMP in the morning, follow urine output. Discussed plan of care with nephrology. Guarded prognosis. 04/09: Patient spiked temp 100.1 yesterday but afebrile now. Continue to follow clinically. Monitor off antibiotics. If continues to spike fever then need to do reculture. Continue low volume D5W, monitor serum creatinine and sodium level. 04/10: -Remains with 101 fever on Monday night, low-grade fever yesterday repeat blood, urine and check CXR and then restart IV Cefepime 1 gm daily + Linezolid 600 mg BID. Monitor renal function. Creatinine level increasing. Renal prognosis is guarded. 04/11: ID restarted cefepime and Zyvox yesterday. Creatinine appears to be worsening but no labs today. Recheck BMP. Etiology appears to be secondary to vasomotor MARIE superimposed on CKD in the setting of sepsis/CHF/A. fib with RVR. Renal ultrasound negative. Continue amiodarone and metoprolol for rate control with A. fib. Continue diuresis with Lasix. No NATALYA inhibitor due to renal insufficiency. 04/12/2022: Continue with antibiotics (cefepime and Zosyn). Continue holding NATALYA inhibitor's/ARB's given patient's worsening renal function. Continue diuresis. Nephrology spoke with the patient's son about the possibility of hemodialysis given the patient's worsening renal function (Creatinine 2.0--> 2.3--> 2.9--> 3.2--> 4.1--> 5.3--> 5.8). Pending repeat BMP given patient's persistent hyperkalemia requiring medical management. Assessment and plan: #MARIE on chronic kidney disease stage III secondary to vasomotor nephropathy Nephrology consulted; appreciate recs. Renally dose meds and avoid nephrotoxic drugs. Continue holding NATALYA inhibitor/ARB's. Continue IV diuresis in the setting of patient being volume overloaded. Vascular surgery consulted for placement of Vas-Cath in order for patient to undergo hemodialysis. Patient initiated on hemodialysis on 04/13/2022. #Hospital-acquired pneumonia #Acute hypoxic respiratory failure - etiology: Secondary to hospital-acquired pneumonia - baseline oxygen requirements: Room air - supplemental oxygen: 8 L nasal cannula Unremarkable blood cultures to date. Continue cefepime and Zosyn (restarted on 04/11/2022). - Continue protocol: continue pulse oximetry, wean oxygen as tolerated, ordered incentive spirometry and educated patient on how to use it and its importance. - continue to monitor #VRE UTI (present on admission) #Sepsis secondary to VRE UTI #Acute metabolic encephalopathy Continue contact isolation Continue Zosyn and cefepime (renally dosed). Infectious disease consulted; appreciate recs #Hyperkalemia Potassium 5.4. Pending repeat BMP Initiating medical management (Kayexalate) #Hypernatremiaresolved #Microcytic anemia #Chronic lower GI bleed Hemoglobin 6.9; status post transfusion 1 unit packed RBC. Holding patient's Eliquis given anemia. Gastroenterology consulted; appreciate recs. Colonoscopy initially planned for ; however patient unable to undergo colonoscopy due to incomplete bowel prep and worsening metabolic encephalopathy. Transfuse if hemoglobin <or patient becomes symptomatic. #A. fib with rapid ventricular rate; rate controlled Continue amiodarone, metoprolol Cardiology consulted; appreciate recs. Eliquis currently being held given anemia. #Acute on chronic systolic heart failure LVEF 25 to 30%. Continue diuresis and beta-blockade. Continue holding NATALYA inhibitor and ARB in the setting of MARIE Cardiology consulted; appreciate recs #Non-ST elevation AK (type II) Likely secondary to MARIE on CKD stage III No current intervention at this time. #Moderate protein calorie malnutrition Albumin 2.8 Nutrition supplements, supportive care Nutrition consulted #Tobacco dependence #Tobacco/Smoking cessation counseling - Counseled patient about the importance of smoking cessation and the possible sequelae as a result of continued tobacco consumption. The patient expresses understanding. -Time: +15 mins #Immunocompromised host Seems to be on methotrexate and prednisone as per his home medications. Unclear indication. Critical Care Billing: The high probability of a clinically significant, sudden or life threatening deterioration of the [renal] system(s) required my full and direct attention, intervention and personal management. The aggregate critical care time was [60] minutes. This time is in addition to time spent performing reported procedures but includes the following: [x] Data Review and interpretation [x] Patient assessment and monitoring of vital signs [x] Documentation [x] Medication orders and management Disposition Plan: Continue medical management Total Time Spent with Patient (Minutes): 45 minutes History Interval history: Patient spiked a fever to 100.8 degrees Fahrenheit last night. Hospitalist Physical - Constitutional Vitals: Temp Pulse Resp BP Pulse Ox 99.0 F 87 22 139/73 100 04/13/22 10:41 04/13/22 10:41 04/13/22 10:41 04/13/22 10:41 04/13/22 10:41 General appearance: Present: no acute distress, well-nourished, other (Patient on a Ventimask) - EENT Eyes: Present: PERRL, EOM intact ENT: hearing intact, clear oral mucosa - Neck Neck: Present: supple, normal ROM - Respiratory Respiratory effort: normal Respiratory: bilateral: diminished (On 8 L Venturi mask) - Cardiovascular Rhythm: regular Heart Sounds: Present: S1 & S2 - Extremities Extremities: no ischemia, pulses intact, pulses symmetrical, normal temperature, normal color Extremity abnormal: edema (Mild edema bilateral lower extremities) Peripheral Pulses: within normal limits - Abdominal General gastrointestinal: soft, non-tender, non-distended, normal bowel sounds - Integumentary Integumentary: Present: clear, warm, dry - Psychiatric Psychiatric: other (Unable to fully assess given current clinical status) - Neurologic Neurologic: CNII-XII intact - Allied Health Allied health notes reviewed: nursing, case management HEART Score - HEART Score Troponin: Troponin T 0.135 ng/mL (0.00-0.029) H* 04/03/22 12:29 Results - Labs CBC & Chem 7: 04/14/22 04:50 04/14/22 04:50 Labs: Laboratory Last Values WBC 4.4 K/mm3 (4.5-11.0) L 04/13/22 14:19 RBC 2.75 M/mm3 (3.65-5.03) L 04/13/22 14:19 Hgb 7.0 gm/dl (11.8-15.2) L 04/13/22 14:19 Hct 22.4 % (35.5-45.6) L 04/13/22 14:19 MCV 81 fl (84-94) L 04/13/22 14:19 MCH 25 pg (28-32) L 04/13/22 14:19 MCHC 31 % (32-34) L 04/13/22 14:19 RDW 20.9 % (13.2-15.2) H 04/13/22 14:19 Plt Count 289 K/mm3 (140-440) 04/13/22 14:19 Lymph % (Auto) 22.3 % (13.4-35.0) 04/13/22 14:19 [place] % (Auto) 2.9 % (0.0-7.3) 04/13/22 14:19 Eos % (Auto) 10.7 % (0.0-4.3) H 04/13/22 14:19 Baso % (Auto) 0.8 % (0.0-1.8) 04/13/22 14:19 Lymph # (Auto) 1.0 K/mm3 (1.2-5.4) L 04/13/22 14:19 [place] # (Auto) 0.1 K/mm3 (0.0-0.8) 04/13/22 14:19 Eos # (Auto) 0.5 K/mm3 (0.0-0.4) H 04/13/22 14:19 Baso # (Auto) 0.0 K/mm3 (0.0-0.1) 04/13/22 14:19 Add Manual Diff Complete 04/05/22 05:06 Total Counted 100 04/05/22 05:06 Seg Neutrophils % 63.3 % (40.0-70.0) 04/13/22 14:19 Seg Neuts % (Manual) 93.0 % (40.0-70.0) H 04/05/22 05:06 Band Neutrophils % 1.0 % 04/05/22 05:06 Lymphocytes % (Manual) 2.0 % (13.4-35.0) L 04/05/22 05:06 Reactive Lymphs % (Man) 0 % 04/05/22 05:06 Monocytes % (Manual) 1.0 % (0.0-7.3) 04/05/22 05:06 Eosinophils % (Manual) 3.0 % (0.0-4.3) 04/05/22 05:06 Basophils % (Manual) 0 % (0.0-1.8) 04/05/22 05:06 Metamyelocytes % 0 % 04/05/22 05:06 Myelocytes % 0 % 04/05/22 05:06 Promyelocytes % 0 % 04/05/22 05:06 Blast Cells % 0 % 04/05/22 05:06 Nucleated RBC % Not Reportable 04/05/22 05:06 Seg Neutrophils # 2.8 K/mm3 (1.8-7.7) 04/13/22 14:19 Seg Neutrophils # Man 7.4 K/mm3 (1.8-7.7) 04/05/22 05:06 Band Neutrophils # 0.1 K/mm3 04/05/22 05:06 Lymphocytes # (Manual) 0.2 K/mm3 (1.2-5.4) L 04/05/22 05:06 Abs React Lymphs (Man) 0.0 K/mm3 04/05/22 05:06 Monocytes # (Manual) 0.1 K/mm3 (0.0-0.8) 04/05/22 05:06 Eosinophils # (Manual) 0.2 K/mm3 (0.0-0.4) 04/05/22 05:06 Basophils # (Manual) 0.0 K/mm3 (0.0-0.1) 04/05/22 05:06 Metamyelocytes # 0.0 K/mm3 04/05/22 05:06 Myelocytes # 0.0 K/mm3 04/05/22 05:06 Promyelocytes # 0.0 K/mm3 04/05/22 05:06 Blast Cells # 0.0 K/mm3 04/05/22 05:06 WBC Morphology Not Reportable 04/05/22 05:06 Hypersegmented Neuts Not Reportable 04/05/22 05:06 Hyposegmented Neuts Not Reportable 04/05/22 05:06 Hypogranular Neuts Not Reportable 04/05/22 05:06 Smudge Cells Not Reportable 04/05/22 05:06 Toxic Granulation Not Reportable 04/05/22 05:06 Toxic Vacuolation Not Reportable 04/05/22 05:06 Dohle Bodies Not Reportable 04/05/22 05:06 Pelger-Huet Anomaly Not Reportable 04/05/22 05:06 Marylin Rods Not Reportable 04/05/22 05:06 Platelet Estimate Consistent w auto 04/05/22 05:06 Clumped Platelets Not Reportable 04/05/22 05:06 Plt Clumps, EDTA Not Reportable 04/05/22 05:06 Large Platelets Not Reportable 04/05/22 05:06 Giant Platelets Not Reportable 04/05/22 05:06 Platelet Satelliting Not Reportable 04/05/22 05:06 Plt Morphology Comment Not Reportable 04/05/22 05:06 RBC Morphology Not Reportable 04/05/22 05:06 Dimorphic RBCs Not Reportable 04/05/22 05:06 Polychromasia Not Reportable 04/05/22 05:06 Hypochromasia Not Reportable 04/05/22 05:06 Poikilocytosis 1+ 04/05/22 05:06 Anisocytosis 1+ 04/05/22 05:06 Microcytosis Not Reportable 04/05/22 05:06 Macrocytosis Not Reportable 04/05/22 05:06 Spherocytes 1+ 04/05/22 05:06 Pappenheimer Bodies Not Reportable 04/05/22 05:06 Sickle Cells Not Reportable 04/05/22 05:06 Target Cells Few 04/05/22 05:06 Tear Drop Cells Not Reportable 04/05/22 05:06 Ovalocytes 1+ 04/05/22 05:06 Helmet Cells Not Reportable 04/05/22 05:06 [place] Bodies Not Reportable 04/05/22 05:06 [place] Rings Not Reportable 04/05/22 05:06 Damari Cells Few 04/05/22 05:06 Bite Cells Not Reportable 04/05/22 05:06 Crenated Cell Not Reportable 04/05/22 05:06 Elliptocytes 1+ 04/05/22 05:06 Acanthocytes (Spur) Not Reportable 04/05/22 05:06 Rouleaux Not Reportable 04/05/22 05:06 Hemoglobin C Crystals Not Reportable 04/05/22 05:06 Schistocytes Not Reportable 04/05/22 05:06 Malaria parasites Not Reportable 04/05/22 05:06 Cristino Bodies Not Reportable 04/05/22 05:06 Hem Pathologist Commnt No 04/05/22 05:06 Sodium 144 mmol/L (137-145) 04/12/22 15:12 Potassium 4.9 mmol/L (3.6-5.0) 04/12/22 15:12 Chloride 110.6 mmol/L (98-107) H 04/12/22 15:12 Carbon Dioxide 23 mmol/L (22-30) 04/12/22 15:12 Anion Gap 15 mmol/L 04/12/22 15:12 BUN 54 mg/dL (9-20) H 04/12/22 15:12 Creatinine 5.9 mg/dL (0.8-1.3) H 04/12/22 15:12 Estimated GFR 12 ml/min 04/12/22 15:12 BUN/Creatinine Ratio 9 % 04/12/22 15:12 Glucose 88 mg/dL (75-100) 04/12/22 15:12 POC Glucose 111 mg/dL (70-105) H 04/13/22 06:02 Lactic Acid 1.20 mmol/L (0.7-2.0) 03/31/22 08:00 Calcium 9.2 mg/dL (8.4-10.2) 04/12/22 15:12 Magnesium 2.00 mg/dL (1.7-2.3) 04/05/22 05:06 Total Bilirubin 0.50 mg/dL (0.1-1.2) 04/05/22 05:06 AST 9 units/L (5-40) 04/05/22 05:06 ALT 7 units/L (7-56) 04/05/22 05:06 Alkaline Phosphatase 80 units/L (35-129) 04/05/22 05:06 Total Creatine Kinase 55 units/L (55-170) 03/31/22 08:00 Troponin T 0.135 ng/mL (0.00-0.029) H* 04/03/22 12:29 NT-Pro-B Natriuret Pep 28679 pg/mL (0-900) H 03/31/22 08:00 Total Protein 5.8 g/dL (6.3-8.2) L 04/05/22 05:06 Albumin 2.0 g/dL (3.9-5) L 04/05/22 05:06 Albumin/Globulin Ratio 0.5 % 04/05/22 05:06 Triglycerides 76 mg/dL (2-149) 03/31/22 08:00 Cholesterol 109 mg/dL (50-199) 03/31/22 08:00 LDL Cholesterol Direct 55 mg/dL (50-130) 03/31/22 08:00 HDL Cholesterol 38 mg/dL (40-59) L 03/31/22 08:00 Cholesterol/HDL Ratio 2.86 % 03/31/22 08:00 Procalcitonin 0.36 ng/mL (<0.15) 03/31/22 08:00 Urine Color Yellow (Yellow) 04/10/22 17:00 Urine Turbidity Slightly cloudy (Clear) 04/10/22 17:00 Specific [place] (Man) 1.010 (1.003-1.030) 04/10/22 17:00 Ur Protein (Man) 2+ mg/dL (Negative) 04/10/22 17:00 Ur Ketones (Man) Negative (Negative) 04/10/22 17:00 Ur Nitrite (Man) Negative (Negative) 04/10/22 17:00 Ur Reducing Substances Not Reportable 04/10/22 17:00 Urine Bilirubin (Man) Negative (Negative) 04/10/22 17:00 Urine Ictotest Not Reportable 04/10/22 17:00 Leukocyte Esterase (Man) Negative (Negative) 04/10/22 17:00 Urine WBC (Auto) 2.0 /HPF (0.0-6.0) 04/10/22 17:00 Urine RBC (Auto) 4.0 /HPF (0.0-6.0) 04/10/22 17:00 Urine Bacteria (Auto) 2+ /HPF (Negative) 04/10/22 17:00 Urine RBC (Manual) 3+ (Negative) 04/10/22 17:00 Granular Casts 6 /LPF 04/01/22 05:20 RBC Casts 7 /LPF 04/01/22 05:20 Urine Yeast (Budding) 3+ /HPF 04/10/22 17:00 Urine Creatinine 82.0 mg/dL (0.1-20.0) H 04/05/22 18:16 Urine Sodium 107 mmol/L 04/05/22 18:16 Random Vancomycin 18.2 ug/mL (0-40.0) 04/06/22 05:46 SARS-CoV-2 (PCR) Negative (Negative) 04/08/22 09:45 Blood Type O POSITIVE 04/02/22 11:45 Antibody Screen Negative 04/02/22 11:45 Crossmatch See Detail 04/02/22 11:45 Microbiology: Microbiology 04/10/22 Unknown Urine,Catheterized - Straight Catheter Urine Culture - Final Kizzy Albicans 04/10/22 11:19 Peripheral/Venous Blood Culture - Preliminary NO GROWTH AFTER 72 HOURS 04/10/22 09:58 Peripheral/Venous Blood Culture - Preliminary NO GROWTH AFTER 72 HOURS [place]te[place]/IV: Voiding Method Indwelling Catheter Active Medications - Current Medications Current Medications: Generic Name Dose Route Start Last Admin Trade Name Freq PRN Reason Stop Dose Admin Acetaminophen 650 mg 03/31/22 13:31 09/06/22 23:29 Acetaminophen 325 Mg Tab PO 650 mg Q4H PRN Administration Pain MILD(1-3)/Fever >100.5/[place] Albuterol 2.5 mg 04/12/22 08:00 04/13/22 09:10 Albuterol 2.5 Mg/3 Ml Nebu IH 2.5 mg TIDRT FRANCESCA Administration Amiodarone HCl 200 mg 03/31/22 22:00 04/13/22 12:08 Amiodarone 200 Mg Tab PO Not Given BID [facility] Aspirin 81 mg 04/01/22 10:00 04/13/22 12:08 Aspirin 81 Mg Tab Chew PO Not Given QDAY [facility] Atorvastatin Calcium 40 mg 03/31/22 22:00 04/12/22 23:31 Atorvastatin 40 Mg Tab PO 40 mg QHS [facility] Administration Doxazosin Mesylate 4 mg 04/01/22 10:00 04/13/22 12:08 Doxazosin 4 Mg Tab PO Not Given QDAY [facility] Epoetin Gordon-epbx 20,000 unit 04/13/22 10:24 Epoetin Gordon-Epbx 20,000 Unit/1 Ml Vial SUB-Q CORINNE PRN hemodialysis Folic Acid 1 mg 04/08/22 10:00 04/13/22 12:08 Folic Acid 1 Mg Tab PO Not Given DAILY [facility] Heparin Sodium (Porcine) 3,000 unit 04/13/22 10:24 Heparin 10,000 Units/10 Ml Vial IV CORINNE PRN hemodialysis Cefepime HCl 1 gm in 100 mls @ 200 mls/hr 04/10/22 11:00 04/13/22 13:57 Cefepime/Ns 1 Gm/100 Ml IV 200 mls/hr Q24HR FRANCESCA Administration Protocol Sodium Chloride 100 mls @ 999 mls/hr 04/13/22 10:24 Nacl 0.9% IV CORINNE PRN Hypotension Linezolid 600 mg 04/10/22 11:00 04/13/22 12:09 Linezolid 600 Mg Tab PO Not Given Q12HR [facility] Protocol Methotrexate 15 mg 04/07/22 14:00 04/07/22 14:00 Methotrexate 2.5 Mg Tab (Dose Weekly Only) PO 15 mg Th FRANCESCA Administration Metoprolol Tartrate 100 mg 03/31/22 22:00 04/13/22 12:08 Metoprolol Tartrate 100 Mg Tab PO Not Given BID FRANCESCA Morphine Sulfate 2 mg 03/31/22 13:31 04/12/22 11:30 Morphine 2 Mg/1 Ml Inj IV 2 mg Q4H PRN Administration Pain, Moderate (4-6) Morphine Sulfate 4 mg 03/31/22 13:31 Morphine 4 Mg/1 Ml Inj IV Q4H PRN Pain , Severe (7-10) Ondansetron HCl 4 mg 03/31/22 13:31 Ondansetron 4 Mg/2 Ml Inj IV Q8H PRN Nausea And Vomiting Pantoprazole Sodium 40 mg 04/08/22 17:00 04/13/22 12:08 Pantoprazole 40 Mg Tab PO Not Given BIDDIAB FRANCESCA Quetiapine Fumarate 50 mg 03/31/22 22:00 04/12/22 23:30 Quetiapine 25 Mg Tab PO 50 mg QHS FRANCESCA Administration Sodium Bicarbonate 650 mg 04/06/22 11:00 04/13/22 12:09 Sodium Bicarbonate 650 Mg Tab PO Not Given BID FRANCESCA Sodium Chloride 10 ml 03/31/22 22:00 04/13/22 12:09 Sodium Chloride 0.9% 10 Ml Flush Syringe IV Not Given BID FRANCESCA Sodium Chloride 10 ml 03/31/22 13:31 04/03/22 00:54 Sodium Chloride 0.9% 10 Ml Flush Syringe IV 10 ml PRN PRN Administration LINE FLUSH Tamsulosin HCl 0.4 mg 04/01/22 10:00 04/13/22 12:08 Tamsulosin 0.4 Mg Cap PO Not Given QDAY [facility] Nutrition/Malnutrition Assess - Dietary Evaluation Nutrition/Malnutrition Findings: Nutrition Notes Start: 04/01/22 10:53 Freq: Status: Active Protocol: Document 04/12/22 13:40 ABDIAS (Rec: 04/12/22 14:10 ABDIAS [id number]) Nutrition Notes Initial or Follow up Reassessment Current Diagnosis Acute Kidney Injury,CKD(stage I-IV),Coronary Artery Disease, Sepsis,Hypertension, Respiratory Failure, Malnutrition,Hyperlipidemia Other Pertinent Diagnosis Metabolic Encephalopathy, UTI, HCAP, Anemia, GI Bleed, NSTEMI II, ... Current Diet TF-Nepro w/CARBSTEADY @ 45 ml/ hr (from D 04/12). Labs/Tests 04/12: K 5.4, Cl 111.6, BUN 51 , Crea 5.8. Pertinent Medications 04/12: Astrovastatin, Folic acid, Lasix, others nutritionally unremarkable. Height 5 ft 9 in Weight 77 kg [place] Body Weight (kg) 72.72 BMI 25.0 Weight change and time frame No body weight change reported in 1 week. Weight Status Overweight Subjective/Other Information RD consult for write/manage TF assessment. Due to risk for aspiration, a Dubhoff-tube was placed and TF ordered. I will prescribe TF to provide Pt with energy/protein needs during LOS. Pt is on Venturi Mask+, O2 saturation @ 99%, according to Physical Assessment History notes. Percent of energy/protein needs met: Prescribed TF-Nepro w/ CARBSTEADY @ 45 ml/hr provides for energy/protein needs (1, 925 Kcal/87 g) during LOS, 100 % Kcal; 100% AA. Burn Absent Trauma Absent GI Symptoms Other Difficulty In Chewing Food Allergy No Skin Integrity/Comment Assessment WNL. Current % PO Negligible Minimum of two criteria No Energy Intake (non-severe) <75% Estimated Energy Requirement >7 days Fluid Accumulation N/A Reduced [employer]ice Strength N/A (non-severe) Protein-Calorie Malnutrition N\A #2 Nutrition Diagnosis Altered nutrition-related laboratory values Comments: 04/12: K 5.4, Cl 111.6, BUN 51 , Crea 5.8. Diagnosis Progress(for reassessment Continues documentation) #1 Nutrition Diagnosis Inadequate oral intake, Inadequate protein-energy intake Comments: Change Nutrition Diagnosis for precision. Etiology Risk for aspiration. Diagnosis Progress(for reassessment Continues documentation) Is patient on ventilator? No Is Patient Ambulatory and/or Out of Bed No REE-([facility]-confined to bed) 1853.868 Kcal/Kg value to use for calculation 25 Approximate Energy Requirements Using 1925 kcal/Kg Calculation Used for Recommendations Kcal/kg Additional Notes Protein: 0.8-1.2 g/Kg ABW; 62- 92 g/day. Fluids: 1 ml/Kcal, or as per MD. Nutrition Intervention Change Diet Order: Discontinued. Nutrition Support: Start TF-Nepro w/CARBSTEADY @ 45 ml/hr. Flush: 200 ml water Q 4 hr, or as per MD. Kcal 1,925 Protein (gm) 87 Carbohydrates (gm) 172 Fat (gm) 103 Fluid (mL) 777 Fiber (gm) 13 % RDI: 100% Kcal; 100% AA. Add Supplement/Snack (indicate name/kcal Discontinued. /protein ) Goal #1 Provide at least 75% of energy /protein needs through Enteral Feeding during LOS. Goal #2 Adjust the dietary intervention to better serve Pt's needs and clinical conditions during LOS. Follow-Up By: 04/15/22 Additional Comments Start monitoring TF tolerance and BM.
[2022-04-13 16:46] LABS: Hepatitis B Surface Antigen Non-Reactive (Negative); Hepatitis C Virus Antibody Non-Reactive (NonReactive)
[2022-04-13 17:04] LABS: Calcium 8.9 mg/dL (8.4-10.2)
--- NOTE | 2022-04-13 18:44 | Progress Note ---
Assessment and Plan 1. Acute kidney injury: Vasomotor MARIE superimposed on CKD in the setting of sepsis/CHF/A.Fib with RVR. Renal US negative. Monitor renal function. Non-oliguric. Creatinine level increasing. Renal prognosis is guarded. Avoid nephrotoxic agents. Meds dosage based on GFR. 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 Patient require hemodialysis due to worsening renal function, volume overload and associated hyperkalemia. Talked to his brothers over the phone and explained above. They voiced understanding and gave verbal consent. Vascular consulted for hemodialysis catheter placement. Hemodialysis: today. 2. FEN: Volume overload, UF with HD as tolerated. Hyperkalemia, improved, monitor. Hypernatremia, monitor. Hyperchloremic metabolic acidosis, Sod bicarb, monitor. Replete lytes as needed. Monitor lytes and volume status. 3. A.fib with RVR: Amio and Metoprolol. Followed by Cards. Monitor. 4. Acute on chronic systolic congestive heart failure / Non-STEMI: LVEF 25 to 30%. Beta-blockers. Monitor. Followed by Cards. 5. HCAP / UTI / Sepsis: Followed by ID. 6. Acute metabolic encephalopathy, POA: H/o Dementia. Monitor. 7. Microcytic Anemia, POA: Heme positive stool. Trend. Seen by GI. 8. Bladder retention: Lima catheter. Subjective: Patient was seen and examined at the bedside. Examination: General appearance: well-developed, appears stated age, no distress HEENT: atraumatic, no icterus Neck: trachea midline Respiratory: decreased breath sounds Heart: S1S2, no murmur Abdomen: soft, bowel sounds heard, NT Integumentary: no obvious rash Neurologic: alert, not following any command Ext: UE edema : lima catheter Subjective Date of service: 04/13/22 Principal diagnosis: anemia Objective - Vital Signs Vital signs: Vital Signs - 12hr 04/13/22 04/13/22 04/13/22 09:10 09:14 10:41 Temperature 99.0 F Pulse Rate 87 Pulse Rate [ 85 Anterior Bilateral Throughout] Respiratory 22 Rate Respiratory 20 Rate [Anterior Bilateral Throughout] Blood Pressure 139/73 O2 Sat by Pulse 100 100 Oximetry - Lab 04/13/22 14:19 04/13/22 14:19 Most recent lab results Calcium 8.9 mg/dL (8.4-10.2) 04/13/22 14:19 Magnesium 2.00 mg/dL (1.7-2.3) 04/05/22 05:06 Urine Creatinine 82.0 mg/dL (0.1-20.0) H 04/05/22 18:16 Urine Sodium 107 mmol/L 04/05/22 18:16 Medications & Allergies - Medications Allergies/Adverse Reactions: Allergies lisinopril Allergy (Verified 03/31/22 07:48) Hives Home Medications: Home Medications Medication Instructions Recorded Confirmed Last Taken Type Tamsulosin [Flomax] 0.4 mg PO QDAY #7 cap 08/28/15 04/08/22 Unknown Rx AtorvaSTATin [Lipitor] 40 mg PO QHS 03/11/22 04/08/22 Unknown History metHOTREXate sodium [Methotrexate] 15 mg PO 1XW 03/11/22 04/08/22 Unknown History predniSONE 10 mg PO BID 03/16/22 04/08/22 Unknown History Amiodarone [Cordarone 200 MG TAB] 200 mg PO BID tablet 03/23/22 04/08/22 Unknown Rx Apixaban [Eliquis] 5 mg PO Q12HR tablet 03/23/22 04/08/22 Unknown Rx Aspirin [Aspirin BABY CHEW TAB] 81 mg PO QDAY tab.chew 03/23/22 04/08/22 Unknown Rx Doxazosin [Cardura] 4 mg PO QDAY tablet 03/23/22 04/08/22 Unknown Rx Famotidine [Pepcid] 20 mg PO DAILY tablet 03/23/22 04/08/22 Unknown Rx Metoprolol [Lopressor TAB] 100 mg PO BID tablet 03/23/22 04/08/22 Unknown Rx Nicotine [Habitrol] 21 mg TD QDAY patch 03/23/22 04/08/22 Unknown Rx QUEtiapine [SEROquel] 50 mg PO QHS tablet 03/23/22 04/08/22 Unknown Rx amLODIPine 10 mg PO DAILY #30 tab 03/24/22 04/08/22 Unknown Rx Active Medications: Generic Name Dose Route Start Last Admin Trade Name Freq PRN Reason Stop Dose Admin Acetaminophen 650 mg 03/31/22 13:31 04/12/22 23:29 Acetaminophen 325 Mg Tab PO 650 mg Q4H PRN Administration Pain MILD(1-3)/Fever >100.5/HILTON Albuterol 2.5 mg 04/12/22 08:00 04/13/22 15:47 Albuterol 2.5 Mg/3 Ml Nebu IH Not Given TIDRT [facility] Amiodarone HCl 200 mg 03/31/22 22:00 04/13/22 12:08 Amiodarone 200 Mg Tab PO Not Given BID [facility] Aspirin 81 mg 04/01/22 10:00 04/13/22 12:08 Aspirin 81 Mg Tab Chew PO Not Given QDAY [facility] Atorvastatin Calcium 40 mg 03/31/22 22:00 04/12/22 23:31 Atorvastatin 40 Mg Tab PO 40 mg QHS [facility] Administration Doxazosin Mesylate 4 mg 04/01/22 10:00 04/13/22 12:08 Doxazosin 4 Mg Tab PO Not Given QDAY [facility] Epoetin Gordon-epbx 20,000 unit 04/13/22 10:24 Epoetin Gordon-Epbx 20,000 Unit/1 Ml Vial SUB-Q CORINNE PRN hemodialysis Folic Acid 1 mg 04/08/22 10:00 04/13/22 12:08 Folic Acid 1 Mg Tab PO Not Given DAILY [facility] Heparin Sodium (Porcine) 3,000 unit 04/13/22 10:24 Heparin 10,000 Units/10 Ml Vial IV CORINNE PRN hemodialysis Cefepime HCl 1 gm in 100 mls @ 200 mls/hr 04/10/22 11:00 04/13/22 13:57 Cefepime/Ns 1 Gm/100 Ml IV 200 mls/hr Q24HR [facility] Administration Protocol Sodium Chloride 100 mls @ 999 mls/hr 04/13/22 10:24 Nacl 0.9% IV CORINNE PRN Hypotension Linezolid 600 mg 04/10/22 11:00 04/13/22 12:09 Linezolid 600 Mg Tab PO Not Given Q12HR [facility] Protocol Methotrexate 15 mg 04/07/22 14:00 04/07/22 14:00 Methotrexate 2.5 Mg Tab (Dose Weekly Only) PO 15 mg Th [facility] Administration Metoprolol Tartrate 100 mg 03/31/22 22:00 04/13/22 12:08 Metoprolol Tartrate 100 Mg Tab PO Not Given BID [facility] Morphine Sulfate 2 mg 03/31/22 13:31 04/12/22 11:30 Morphine 2 Mg/1 Ml Inj IV 2 mg Q4H PRN Administration Pain, Moderate (4-6) Morphine Sulfate 4 mg 03/31/22 13:31 Morphine 4 Mg/1 Ml Inj IV Q4H PRN Pain , Severe (7-10) Ondansetron HCl 4 mg 03/31/22 13:31 Ondansetron 4 Mg/2 Ml Inj IV Q8H PRN Nausea And Vomiting Pantoprazole Sodium 40 mg 04/08/22 17:00 04/13/22 12:08 Pantoprazole 40 Mg Tab PO Not Given BIDDIAB [facility] Quetiapine Fumarate 50 mg 03/31/22 22:00 04/12/22 23:30 Quetiapine 25 Mg Tab PO 50 mg QHS [facility] Administration Sodium Bicarbonate 650 mg 04/06/22 11:00 04/13/22 12:09 Sodium Bicarbonate 650 Mg Tab PO Not Given BID [facility] Sodium Chloride 10 ml 03/31/22 22:00 04/13/22 12:09 Sodium Chloride 0.9% 10 Ml Flush Syringe IV Not Given BID [facility] Sodium Chloride 10 ml 03/31/22 13:31 04/03/22 00:54 Sodium Chloride 0.9% 10 Ml Flush Syringe IV 10 ml PRN PRN Administration LINE FLUSH Tamsulosin HCl 0.4 mg 04/01/22 10:00 04/13/22 12:08 Tamsulosin 0.4 Mg Cap PO Not Given QDAY [facility]
[2022-04-13] MEDS: QUEtiapine 25 MG TAB PO SCH (22:47)
[2022-04-13] MEDS: ACETAMINOPHEN 325 MG TAB PO PRN (22:52)
[2022-04-14 05:21] LABS: Hematocrit 21.6 % (35.5-45.6); Hemoglobin 6.6 gm/dl (11.8-15.2); Mean Corpuscular HGB Conc 31 % (32-34); Mean Corpuscular Volume 80 fl (84-94); Platelet Count 214 K/mm3 (140-440); Red Cell Distribution Width 21.2 % (13.2-15.2)
[2022-04-14 05:28] LABS: Calcium 7.8 mg/dL (8.4-10.2)
[2022-04-14] MEDS: METOPROLOL TARTRATE 100 MG TAB PO SCH ×3 (05:28→21:55)
[2022-04-14] MEDS: ACETAMINOPHEN 325 MG TAB PO PRN ×2 (05:47→13:30)
[2022-04-14 06:10] LABS: Basophils % (Manual) 0 % (0.0-1.8); Total Cells Counted 100
[2022-04-14 06:11] LABS: Anisocytosis 1+; Hypochromasia 1+; Platelet Estimate Consistent w Auto
[2022-04-14] MEDS ORDERED: SODIUM CHLORIDE 0.9% 500 ML 500 ML IV SCH (08:00)
--- NOTE | 2022-04-14 09:06 | Progress Note ---
Assessment and Plan 1. Acute kidney injury: Vasomotor MARIE superimposed on CKD in the setting of sepsis/CHF/A.Fib with RVR. Renal US negative. Monitor renal function. Non-oliguric. Renal prognosis is guarded. Avoid nephrotoxic agents. Meds dosage based on GFR. 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 Patient started on hemodialysis due to worsening renal function, volume overload and associated hyperkalemia. Hemodialysis: 04/13. UF today. 2. FEN: Volume overload, UF with HD as tolerated. Hyperkalemia, improved, monitor. Hypernatremia, monitor. Hyperchloremic metabolic acidosis, improved, monitor. Replete lytes as needed. Monitor lytes and volume status. 3. A.fib with RVR: Amio and Metoprolol. Followed by Cards. Monitor. 4. Acute on chronic systolic congestive heart failure / Non-STEMI: LVEF 25 to 30%. Beta-blockers. Monitor. Followed by Cards. 5. HCAP / UTI / Sepsis: Followed by ID. 6. Acute metabolic encephalopathy, POA: H/o Dementia. Monitor. 7. Microcytic Anemia, POA: Heme positive stool. Trend. Seen by GI. 8. Bladder retention: Lima catheter. Subjective: Patient was seen and examined at the bedside. Examination: General appearance: well-developed, appears stated age, no distress, on VM O2 HEENT: atraumatic, no icterus Neck: trachea midline Respiratory: decreased breath sounds Heart: S1S2, no murmur Abdomen: soft, bowel sounds heard, NT Integumentary: no obvious rash Neurologic: alert, not following any command Ext: UE edema : lima catheter Subjective Date of service: 04/14/22 Principal diagnosis: anemia Objective - Vital Signs Vital signs: Vital Signs - 12hr 04/13/22 04/13/22 04/13/22 21:12 22:00 22:44 Temperature 100.0 F H 100.8 F H Pulse Rate 72 60 Respiratory 18 19 Rate Blood Pressure 135/63 Blood Pressure 118/49 [Left] Blood Pressure 118/49 [Right] O2 Sat by Pulse 98 96 98 Oximetry 04/13/22 04/14/22 04/14/22 23:52 04:23 08:40 Temperature 100.4 F H Pulse Rate 97 H Respiratory 17 18 Rate Blood Pressure 112/55 Blood Pressure [Left] Blood Pressure [Right] O2 Sat by Pulse 98 96 Oximetry - Lab 04/14/22 04:50 04/14/22 04:50 Most recent lab results Calcium 7.8 mg/dL (8.4-10.2) L 04/14/22 04:50 Magnesium 2.00 mg/dL (1.7-2.3) 04/05/22 05:06 Urine Creatinine 82.0 mg/dL (0.1-20.0) H 04/05/22 18:16 Urine Sodium 107 mmol/L 04/05/22 18:16 Medications & Allergies - Medications Allergies/Adverse Reactions: Allergies lisinopril Allergy (Verified 03/31/22 07:48) Hives Home Medications: Home Medications Medication Instructions Recorded Confirmed Last Taken Type Tamsulosin [Flomax] 0.4 mg PO QDAY #7 cap 08/28/15 04/08/22 Unknown Rx AtorvaSTATin [Lipitor] 40 mg PO QHS 03/11/22 04/08/22 Unknown History metHOTREXate sodium [Methotrexate] 15 mg PO 1XW 03/11/22 04/08/22 Unknown History predniSONE 10 mg PO BID 03/16/22 04/08/22 Unknown History Amiodarone [Cordarone 200 MG TAB] 200 mg PO BID tablet 03/23/22 04/08/22 Unknown Rx Apixaban [Eliquis] 5 mg PO Q12HR tablet 03/23/22 04/08/22 Unknown Rx Aspirin [Aspirin BABY CHEW TAB] 81 mg PO QDAY tab.chew 03/23/22 04/08/22 Unknown Rx Doxazosin [Cardura] 4 mg PO QDAY tablet 03/23/22 04/08/22 Unknown Rx Famotidine [Pepcid] 20 mg PO DAILY tablet 03/23/22 04/08/22 Unknown Rx Metoprolol [Lopressor TAB] 100 mg PO BID tablet 03/23/22 04/08/22 Unknown Rx Nicotine [Habitrol] 21 mg TD QDAY patch 03/23/22 04/08/22 Unknown Rx QUEtiapine [SEROquel] 50 mg PO QHS tablet 03/23/22 04/08/22 Unknown Rx amLODIPine 10 mg PO DAILY #30 tab 03/24/22 04/08/22 Unknown Rx Active Medications: Generic Name Dose Route Start Last Admin Trade Name Freq PRN Reason Stop Dose Admin Acetaminophen 650 mg 03/31/22 13:31 04/14/22 05:47 Acetaminophen 325 Mg Tab PO 650 mg Q4H PRN Administration Pain MILD(1-3)/Fever >100.5/HILTON Albuterol 2.5 mg 04/12/22 08:00 04/13/22 20:56 Albuterol 2.5 Mg/3 Ml Nebu IH 2.5 mg TIDRT [facility] Administration Amiodarone HCl 200 mg 03/31/22 22:00 04/13/22 22:48 Amiodarone 200 Mg Tab PO 200 mg BID [facility] Administration Aspirin 81 mg 04/01/22 10:00 04/13/22 12:08 Aspirin 81 Mg Tab Chew PO Not Given QDAY [facility] Atorvastatin Calcium 40 mg 03/31/22 22:00 04/13/22 22:47 Atorvastatin 40 Mg Tab PO 40 mg QHS [facility] Administration Doxazosin Mesylate 4 mg 04/01/22 10:00 04/13/22 12:08 Doxazosin 4 Mg Tab PO Not Given QDAY [facility] Epoetin Gordon-epbx 20,000 unit 04/13/22 10:24 Epoetin Gordon-Epbx 20,000 Unit/1 Ml Vial SUB-Q CORINNE PRN hemodialysis Folic Acid 1 mg 04/08/22 10:00 04/13/22 12:08 Folic Acid 1 Mg Tab PO Not Given DAILY [facility] Heparin Sodium (Porcine) 3,000 unit 04/13/22 10:24 Heparin 10,000 Units/10 Ml Vial IV CORINNE PRN hemodialysis Cefepime HCl 1 gm in 100 mls @ 200 mls/hr 04/10/22 11:00 04/13/22 13:57 Cefepime/Ns 1 Gm/100 Ml IV 200 mls/hr Q24HR [facility] Administration Protocol Sodium Chloride 100 mls @ 999 mls/hr 04/13/22 10:24 Nacl 0.9% IV CORINNE PRN Hypotension Sodium Chloride 500 mls @ 0 mls/hr 04/14/22 08:00 Nacl 0.9% 500 Ml IV 04/14/22 19:00 ONCE@0800 [facility] As Directed Linezolid 600 mg 04/10/22 11:00 04/13/22 22:47 Linezolid 600 Mg Tab PO 600 mg Q12HR [facility] Administration Protocol Methotrexate 15 mg 04/07/22 14:00 04/07/22 14:00 Methotrexate 2.5 Mg Tab (Dose Weekly Only) PO 15 mg Th [facility] Administration Metoprolol Tartrate 100 mg 03/31/22 22:00 04/14/22 05:28 Metoprolol Tartrate 100 Mg Tab PO Not Given BID [facility] Morphine Sulfate 2 mg 03/31/22 13:31 04/12/22 11:30 Morphine 2 Mg/1 Ml Inj IV 2 mg Q4H PRN Administration Pain, Moderate (4-6) Morphine Sulfate 4 mg 03/31/22 13:31 Morphine 4 Mg/1 Ml Inj IV Q4H PRN Pain , Severe (7-10) Ondansetron HCl 4 mg 03/31/22 13:31 Ondansetron 4 Mg/2 Ml Inj IV Q8H PRN Nausea And Vomiting Pantoprazole Sodium 40 mg 04/08/22 17:00 04/13/22 19:21 Pantoprazole 40 Mg Tab PO Not Given BIDDIAB [facility]ANCES[facility] Quetiapine Fumarate 50 mg 03/31/22 22:00 04/13/22 22:47 Quetiapine 25 Mg Tab PO 50 mg QHS [facility] Administration Sodium Bicarbonate 650 mg 04/06/22 11:00 04/13/22 22:47 Sodium Bicarbonate 650 Mg Tab PO 650 mg BID [facility] Administration Sodium Chloride 10 ml 03/31/22 22:00 04/14/22 05:28 Sodium Chloride 0.9% 10 Ml Flush Syringe IV Not Given BID [facility] Sodium Chloride 10 ml 03/31/22 13:31 04/03/22 00:54 Sodium Chloride 0.9% 10 Ml Flush Syringe IV 10 ml PRN PRN Administration LINE FLUSH Tamsulosin HCl 0.4 mg 04/01/22 10:00 04/13/22 12:08 Tamsulosin 0.4 Mg Cap PO Not Given QDAY [facility]
[2022-04-14] MEDS: ALBUTEROL 2.5 MG/3 ML NEBU IH SCH ×3 (09:11→20:33)
--- NOTE | 2022-04-14 09:35 | Progress Note ---
Assessment and Plan Cultures: COVID-19 PCR: Negative 03/31/2022 blood culture: No growth 04/01/2022 urine culture: VRE - Enterococcus faecium 04/08/2022 COVID-19 PCR: Negative 04/10/2022 blood culture: No growth so far 04/10/2022 urine culture: Kizzy albicans A/P: 67-year-old male with CAD, CKD, atrial fibrillation, vascular dementia was admitted to the hospital on 03/31/2022 with fever and shortness of breath: #New sepsis: ?aspiration. Chest x-ray with bibasilar infiltrates. UA without any significant pyuria. Blood culture with no growth so far. #Aspiration pneumonia, Acute hypoxic respiratory failure: on oxygen. #VRE UTI: Asymptomatic bacteriuria, UA without any significant pyuria reflect colonization. #MARIE v/s CKD: Nephrology on board. Creatinine rising. 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 Unclear indication. Patient does not know the indication. #Leukopenia: Monitor. May need to consider holding methotrexate. #Acute encephalopathy: with underlying dementia. Recs: -Monitor leukopenia, if it persists, consider holding methotrexate -continue IV Cefepime renally adjusted, Linezolid for suspected aspiration pn eumonia -if febrile >101F, consider CT chest, abdomen and pelvis without contrast to evaluate for any other source of infection -Candiduria does not to be treated -overall prognosis appears guarded Juanis Greco MD, FACP, [facility] O: [phone] F: [phone] C: [phone] Subjective Date of service: 04/14/22 Principal diagnosis: anemia Interval history: Low-grade fevers present. Got a Vas-Cath placed. Getting nebs Objective - Exam Narrative Exam: Physical Exam: Constitutional: awake Head, Ears, Nose: Normocephalic, atraumatic. External ears, nose normal Eyes: Conjunctivae/corneas clear. No icterus. No ptosis. Neck: Supple, no meningeal signs Cardiovascular: S1, S2 + Respiratory: few b/l rhonchi GI: Soft, non-tender; bowel sounds normal. No peritoneal signs. Musculoskeletal: No pedal edema, no cyanosis. Skin: No rash or abscess Hem/Lymphatic: No palpable cervical or supraclavicular nodes. No lymphangitis Psych: No agitation Neurological: awake. - Constitutional Vitals: Vital Signs Temp Pulse Resp BP Pulse Ox 100.4 F H 89 18 112/55 100 04/14/22 04:23 04/14/22 09:11 04/14/22 09:11 04/14/22 04:23 04/14/22 09:18 Temperature -Last 24 Hours Temperature 100.4 F Temperature 100.8 F Temperature 100.0 F Temperature 98.8 F Temperature 99.3 F Temperature 99.0 F - Labs CBC & Chem 7: 04/14/22 04:50 04/14/22 04:50 Labs: Abnormal lab results 04/13/22 04/13/22 04/13/22 Range/Units 14:19 14:19 23:50 WBC 4.4 L (4.5-11.0) K/mm3 RBC 2.75 L (3.65-5.03) M/mm3 Hgb 7.0 L (11.8-15.2) gm/dl Hct 22.4 L (35.5-45.6) % MCV 81 L (84-94) fl MCH 25 L (28-32) pg MCHC 31 L (32-34) % RDW 20.9 H (13.2-15.2) % Eos % (Auto) 10.7 H (0.0-4.3) % Lymph # (Auto) 1.0 L (1.2-5.4) K/mm3 Eos # (Auto) 0.5 H (0.0-0.4) K/mm3 Seg Neuts % (Manual) (40.0-70.0) % Eosinophils % (Manual) (0.0-4.3) % Lymphocytes # (Manual) (1.2-5.4) K/mm3 Sodium 146 H (137-145) mmol/L Chloride 111.2 H (98-107) mmol/L BUN 62 H (9-20) mg/dL Creatinine 6.6 H (0.8-1.3) mg/dL Glucose (75-100) mg/dL POC Glucose 118 H (70-105) mg/dL Calcium (8.4-10.2) mg/dL 04/14/22 04/14/22 Range/Units 04:50 04:50 WBC 3.5 L (4.5-11.0) K/mm3 RBC 2.70 L (3.65-5.03) M/mm3 Hgb 6.6 L (11.8-15.2) gm/dl Hct 21.6 L (35.5-45.6) % MCV 80 L (84-94) fl MCH 25 L (28-32) pg MCHC 31 L (32-34) % RDW 21.2 H (13.2-15.2) % Eos % (Auto) (0.0-4.3) % Lymph # (Auto) (1.2-5.4) K/mm3 Eos # (Auto) (0.0-0.4) K/mm3 Seg Neuts % (Manual) 73.0 H (40.0-70.0) % Eosinophils % (Manual) 5.0 H (0.0-4.3) % Lymphocytes # (Manual) 0.7 L (1.2-5.4) K/mm3 Sodium (137-145) mmol/L Chloride (98-107) mmol/L BUN 34 H (9-20) mg/dL Creatinine 4.3 H (0.8-1.3) mg/dL Glucose 107 H (75-100) mg/dL POC Glucose (70-105) mg/dL Calcium 7.8 L (8.4-10.2) mg/dL
[2022-04-14] MEDS: CEFEPIME/NS 1 GM/100 ML 1 GM/100 ML BAG IV SCH (09:43)
[2022-04-14] MEDS: FOLIC ACID 1 MG TAB PO SCH (09:44)
[2022-04-14] MEDS: ASPIRIN 81 MG TAB CHEW PO SCH (09:44)
[2022-04-14] MEDS: SODIUM BICARBONATE 650 MG TAB PO SCH ×2 (09:44→21:56)
[2022-04-14] MEDS: TAMSULOSIN 0.4 MG CAP PO SCH (09:44)
[2022-04-14] MEDS: PANTOPRAZOLE 40 MG TAB PO SCH ×2 (09:44→17:07)
[2022-04-14] MEDS: AMIODARONE 200 MG TAB PO SCH ×2 (09:44→21:56)
[2022-04-14] MEDS: LINEZOLID 600 MG TAB PO SCH ×2 (09:44→21:55)
[2022-04-14] MEDS: DOXAZOSIN 4 MG TAB PO SCH (11:47)
[2022-04-14] MEDS: metHOTREXate 2.5 MG TAB (DOSE WEEKLY ONLY) PO SCH (13:30)
[2022-04-14] MEDS ORDERED: SODIUM CHLORIDE 0.9% 250ML 250 ML ONE (14:21)
[2022-04-14] MEDS ORDERED: EPOETIN ALFA-EPBX 10,000 UNIT/1 ML VIAL SUB-Q PRN (15:00)
--- NOTE | 2022-04-14 15:06 | Progress Note ---
Assessment and Plan Assessment and plan: he patient is a 67-year-old male with CAD, CKD, atrial fibrillation, vascular dementia was admitted to the hospital on 03/31/2022 with complaints of fever and shortness of breath of 3 days. Upon evaluation in the ED, T-max of 102.8 F. Also with atrial fibrillation with rapid ventricular rate, leukocytosis. Admitted due to concerns for sepsis from pneumonia. Was started on empiric antibiotics. Urine culture growing VRE.. Echo showed EF of 25 to 30%, cardiology following. Initial chest x-ray on 03/31/2022 showed left upper lobe pneumonia. Interval improvement noted on chest x-ray from 04/03/2022. Hospital course: 04/01/2020; patient is febrile, mild distress, on Vanco and cefepime, follow cultures 04/02; patient's hemoglobin dropped to 6.8, 1 unit PRBC transfusion, Eliquis held, follow stool guaiac Cardiology recommendations noted and appreciated 04/03; received 1 unit PRBC yesterday, Hb today 7.2, closely monitor 04/04; patient completed 5 days of Vanco and cefepime for HCAP Urine cultures positive for VRE, add Zyvox 600 mg IV every 12 Contact isolation, ID consulted 04/05: Final ID no antibiotic treatment necessary for VRE as that could be coloni zation. Continue to monitor for renal function improvement. Plan for colonoscopy on . Continue to monitor H&H. 04/06: Continue to follow serum creatinine, plan for colonoscopy tomorrow. F ollow H&H. Patient also needs placement 04/07: Planned for colonoscopy but patient could not complete bowel prep due to underlying dementia and metabolic encephalopathy Continue supportive care, continue to monitor H&H. Pending placement. Continue to follow renal function. Creatinine 3.2 today with sodium 148. Off Lasix. Repeat BMP tomorrow. 04/08; sodium and creatinine level further increased today. We will start on low volume D5 W. Repeat BMP in the morning, follow urine output. Discussed plan of care with nephrology. Guarded prognosis. 04/09: Patient spiked temp 100.1 yesterday but afebrile now. Continue to follow clinically. Monitor off antibiotics. If continues to spike fever then need to do reculture. Continue low volume D5W, monitor serum creatinine and sodium level. 04/10: -Remains with 101 fever on Monday night, low-grade fever yesterday repeat blood, urine and check CXR and then restart IV Cefepime 1 gm daily + Linezolid 600 mg BID. Monitor renal function. Creatinine level increasing. Renal prognosis is guarded. 04/11: ID restarted cefepime and Zyvox yesterday. Creatinine appears to be worsening but no labs today. Recheck BMP. Etiology appears to be secondary to vasomotor MARIE superimposed on CKD in the setting of sepsis/CHF/A. fib with RVR. Renal ultrasound negative. Continue amiodarone and metoprolol for rate control with A. fib. Continue diuresis with Lasix. No NATALYA inhibitor due to renal insufficiency. 04/12/2022: Continue with antibiotics (cefepime and Zosyn). Continue holding NATALYA inhibitor's/ARB's given patient's worsening renal function. Continue diuresis. Nephrology spoke with the patient's son about the possibility of hemodialysis given the patient's worsening renal function (Creatinine 2.0--> 2.3--> 2.9--> 3.2--> 4.1--> 5.3--> 5.8). Pending repeat BMP given patient's persistent hyperkalemia requiring medical management. Assessment and plan: #MARIE on chronic kidney disease stage III secondary to vasomotor nephropathy Nephrology consulted; appreciate recs. Renally dose meds and avoid nephrotoxic drugs. Continue holding NATALYA inhibitor/ARB's. Continue IV diuresis in the setting of patient being volume overloaded. Vascular surgery consulted for placement of Vas-Cath in order for patient to undergo hemodialysis. Patient initiated on hemodialysis on 04/13/2022. Continue hemodialysis #Hospital-acquired pneumonia #Acute hypoxic respiratory failure - etiology: Secondary to hospital-acquired pneumonia - baseline oxygen requirements: Room air - supplemental oxygen: 8 L nasal cannula Unremarkable blood cultures to date. Continue cefepime and Zosyn (restarted on 04/11/2022). - Continue protocol: continue pulse oximetry, wean oxygen as tolerated, ordered incentive spirometry and educated patient on how to use it and its importance. - continue to monitor #VRE UTI (present on admission) #Sepsis secondary to VRE UTI #Acute metabolic encephalopathy Continue contact isolation Continue Zosyn and cefepime (renally dosed). Infectious disease consulted; appreciate recs #Hyperkalemia Potassium 5.4. Pending repeat BMP Initiating medical management (Kayexalate) #Hypernatremiaresolved #Microcytic anemia #Chronic lower GI bleed Hemoglobin 6.6; transfusing 1 unit packed RBC. Holding patient's Eliquis given anemia. Gastroenterology consulted; appreciate recs. Colonoscopy initially planned for ; however patient unable to undergo colonoscopy due to incomplete bowel prep and worsening metabolic encephalopathy. Transfuse if hemoglobin <or patient becomes symptomatic. #A. fib with rapid ventricular rate; rate controlled Continue amiodarone, metoprolol Cardiology consulted; appreciate recs. Eliquis currently being held given anemia. #Acute on chronic systolic heart failure LVEF 25 to 30%. Continue diuresis and beta-blockade. Continue holding NATALYA inhibitor and ARB in the setting of MARIE Cardiology consulted; appreciate recs #Non-ST elevation MN (type II) Likely secondary to MARIE on CKD stage III No current intervention at this time. #Moderate protein calorie malnutrition Albumin 2.8 Nutrition supplements, supportive care Nutrition consulted #Tobacco dependence #Tobacco/Smoking cessation counseling - Counseled patient about the importance of smoking cessation and the possible sequelae as a result of continued tobacco consumption. The patient expresses understanding. -Time: +15 mins #Immunocompromised host Seems to be on methotrexate and prednisone as per his home medications. Unclear indication. If neutropenia worsens, methotrexate will be discontinued. Critical Care Billing: The high probability of a clinically significant, sudden or life threatening deterioration of the [renal] system(s) required my full and direct attention, intervention and personal management. The aggregate critical care time was [60] minutes. This time is in addition to time spent performing reported procedures but includes the following: [x] Data Review and interpretation [x] Patient assessment and monitoring of vital signs [x] Documentation [x] Medication orders and management Disposition Plan: Continue medical management Total Time Spent with Patient (Minutes): 45 minutes History Interval history: Patient spiked a fever to 100.8 degrees Fahrenheit last night. Hospitalist Physical - Constitutional Vitals: Temp Pulse Resp BP Pulse Ox 98.1 F 83 20 105/61 99 04/14/22 11:25 04/14/22 11:25 04/14/22 11:25 04/14/22 11:25 04/14/22 11:25 General appearance: Present: no acute distress, well-nourished, other (Patient on a Ventimask) - EENT Eyes: Present: PERRL, EOM intact ENT: hearing intact, clear oral mucosa, dentition normal - Neck Neck: Present: supple, normal ROM - Respiratory Respiratory effort: normal Respiratory: bilateral: diminished (8 L Venturi mask) - Cardiovascular Rhythm: regular Heart Sounds: Present: S1 & S2 - Extremities Extremities: no ischemia, pulses intact, pulses symmetrical, No edema, normal temperature, normal color Peripheral Pulses: within normal limits - Abdominal General gastrointestinal: soft, non-tender, non-distended, normal bowel sounds - Integumentary Integumentary: Present: clear, warm, dry - Psychiatric Psychiatric: other (Unable to fully assess given clinical status) - Neurologic Neurologic: CNII-XII intact - Allied Health Allied health notes reviewed: nursing, case management HEART Score - HEART Score Troponin: Troponin T 0.135 ng/mL (0.00-0.029) H* 04/03/22 12:29 Results - Labs CBC & Chem 7: 04/14/22 04:50 04/14/22 04:50 Labs: Laboratory Last Values WBC 3.5 K/mm3 (4.5-11.0) L 04/14/22 04:50 RBC 2.70 M/mm3 (3.65-5.03) L 04/14/22 04:50 Hgb 6.6 gm/dl (11.8-15.2) L 04/14/22 04:50 Hct 21.6 % (35.5-45.6) L 04/14/22 04:50 MCV 80 fl (84-94) L 04/14/22 04:50 MCH 25 pg (28-32) L 04/14/22 04:50 MCHC 31 % (32-34) L 04/14/22 04:50 RDW 21.2 % (13.2-15.2) H 04/14/22 04:50 Plt Count 214 K/mm3 (140-440) 04/14/22 04:50 Lymph % (Auto) Help Desk Technician 04/14/22 04:50 [place] % (Auto) Help Desk Technician 04/14/22 04:50 Eos % (Auto) Help Desk Technician 04/14/22 04:50 Baso % (Auto) Help Desk Technician 04/14/22 04:50 Lymph # (Auto) Help Desk Technician 04/14/22 04:50 [place] # (Auto) Help Desk Technician 04/14/22 04:50 Eos # (Auto) Help Desk Technician 04/14/22 04:50 Baso # (Auto) Help Desk Technician 04/14/22 04:50 Add Manual Diff Complete 04/14/22 04:50 Total Counted 100 04/14/22 04:50 Seg Neutrophils % Help Desk Technician 04/14/22 04:50 Seg Neuts % (Manual) 73.0 % (40.0-70.0) H 04/14/22 04:50 Band Neutrophils % 0 % 04/14/22 04:50 Lymphocytes % (Manual) 19.0 % (13.4-35.0) 04/14/22 04:50 Reactive Lymphs % (Man) 0 % 04/14/22 04:50 Monocytes % (Manual) 3.0 % (0.0-7.3) 04/14/22 04:50 Eosinophils % (Manual) 5.0 % (0.0-4.3) H 04/14/22 04:50 Basophils % (Manual) 0 % (0.0-1.8) 04/14/22 04:50 Metamyelocytes % 0 % 04/14/22 04:50 Myelocytes % 0 % 04/14/22 04:50 Promyelocytes % 0 % 04/14/22 04:50 Blast Cells % 0 % 04/14/22 04:50 Nucleated RBC % Not Reportable 04/14/22 04:50 Seg Neutrophils # Help Desk Technician 04/14/22 04:50 Seg Neutrophils # Man 2.6 K/mm3 (1.8-7.7) 04/14/22 04:50 Band Neutrophils # 0.0 K/mm3 04/14/22 04:50 Lymphocytes # (Manual) 0.7 K/mm3 (1.2-5.4) L 04/14/22 04:50 Abs React Lymphs (Man) 0.0 K/mm3 04/14/22 04:50 Monocytes # (Manual) 0.1 K/mm3 (0.0-0.8) 04/14/22 04:50 Eosinophils # (Manual) 0.2 K/mm3 (0.0-0.4) 04/14/22 04:50 Basophils # (Manual) 0.0 K/mm3 (0.0-0.1) 04/14/22 04:50 Metamyelocytes # 0.0 K/mm3 04/14/22 04:50 Myelocytes # 0.0 K/mm3 04/14/22 04:50 Promyelocytes # 0.0 K/mm3 04/14/22 04:50 Blast Cells # 0.0 K/mm3 04/14/22 04:50 WBC Morphology Not Reportable 04/14/22 04:50 Hypersegmented Neuts Not Reportable 04/14/22 04:50 Hyposegmented Neuts Not Reportable 04/14/22 04:50 Hypogranular Neuts Not Reportable 04/14/22 04:50 Smudge Cells Not Reportable 04/14/22 04:50 Toxic Granulation Not Reportable 04/14/22 04:50 Toxic Vacuolation Not Reportable 04/14/22 04:50 Dohle Bodies Not Reportable 04/14/22 04:50 Pelger-Huet Anomaly Not Reportable 04/14/22 04:50 Marylin Rods Not Reportable 04/14/22 04:50 Platelet Estimate Consistent w auto 04/14/22 04:50 Clumped Platelets Not Reportable 04/14/22 04:50 Plt Clumps, EDTA Not Reportable 04/14/22 04:50 Large Platelets Not Reportable 04/14/22 04:50 Giant Platelets Not Reportable 04/14/22 04:50 Platelet Satelliting Not Reportable 04/14/22 04:50 Plt Morphology Comment Not Reportable 04/14/22 04:50 RBC Morphology Not Reportable 04/14/22 04:50 Dimorphic RBCs Not Reportable 04/14/22 04:50 Polychromasia Not Reportable 04/14/22 04:50 Hypochromasia 1+ 04/14/22 04:50 Poikilocytosis Not Reportable 04/14/22 04:50 Anisocytosis 1+ 04/14/22 04:50 Microcytosis Not Reportable 04/14/22 04:50 Macrocytosis Not Reportable 04/14/22 04:50 Spherocytes Not Reportable 04/14/22 04:50 Pappenheimer Bodies Not Reportable 04/14/22 04:50 Sickle Cells Not Reportable 04/14/22 04:50 Target Cells Not Reportable 04/14/22 04:50 Tear Drop Cells Not Reportable 04/14/22 04:50 Ovalocytes Not Reportable 04/14/22 04:50 Helmet Cells Not Reportable 04/14/22 04:50 Alvarez-Diaz Bodies Not Reportable 04/14/22 04:50 [place] Rings Not Reportable 04/14/22 04:50 Damari Cells Not Reportable 04/14/22 04:50 Bite Cells Not Reportable 04/14/22 04:50 Crenated Cell Not Reportable 04/14/22 04:50 Elliptocytes Not Reportable 04/14/22 04:50 Acanthocytes (Spur) Not Reportable 04/14/22 04:50 Rouleaux Not Reportable 04/14/22 04:50 Hemoglobin C Crystals Not Reportable 04/14/22 04:50 Schistocytes Not Reportable 04/14/22 04:50 Malaria parasites Not Reportable 04/14/22 04:50 Cristino Bodies Not Reportable 04/14/22 04:50 Hem Pathologist Commnt No 04/14/22 04:50 Sodium 142 mmol/L (137-145) 04/14/22 04:50 Potassium 3.6 mmol/L (3.6-5.0) 04/14/22 04:50 Chloride 104.5 mmol/L (98-107) 04/14/22 04:50 Carbon Dioxide 30 mmol/L (22-30) 04/14/22 04:50 Anion Gap 11 mmol/L 04/14/22 04:50 BUN 34 mg/dL (9-20) H 04/14/22 04:50 Creatinine 4.3 mg/dL (0.8-1.3) H 04/14/22 04:50 Estimated GFR 17 ml/min 04/14/22 04:50 BUN/Creatinine Ratio 8 % 04/14/22 04:50 Glucose 107 mg/dL (75-100) H 04/14/22 04:50 POC Glucose 93 mg/dL (70-105) 04/14/22 11:20 Lactic Acid 1.20 mmol/L (0.7-2.0) 03/31/22 08:00 Calcium 7.8 mg/dL (8.4-10.2) L 04/14/22 04:50 Magnesium 2.00 mg/dL (1.7-2.3) 04/05/22 05:06 Total Bilirubin 0.50 mg/dL (0.1-1.2) 04/05/22 05:06 AST 9 units/L (5-40) 04/05/22 05:06 ALT 7 units/L (7-56) 04/05/22 05:06 Alkaline Phosphatase 80 units/L (35-129) 04/05/22 05:06 Total Creatine Kinase 55 units/L (55-170) 03/31/22 08:00 Troponin T 0.135 ng/mL (0.00-0.029) H* 04/03/22 12:29 NT-Pro-B Natriuret Pep 82398 pg/mL (0-900) H 03/31/22 08:00 Total Protein 5.8 g/dL (6.3-8.2) L 04/05/22 05:06 Albumin 2.0 g/dL (3.9-5) L 04/05/22 05:06 Albumin/Globulin Ratio 0.5 % 04/05/22 05:06 Triglycerides 76 mg/dL (2-149) 03/31/22 08:00 Cholesterol 109 mg/dL (50-199) 03/31/22 08:00 LDL Cholesterol Direct 55 mg/dL (50-130) 03/31/22 08:00 HDL Cholesterol 38 mg/dL (40-59) L 03/31/22 08:00 Cholesterol/HDL Ratio 2.86 % 03/31/22 08:00 Procalcitonin 0.36 ng/mL (<0.15) 03/31/22 08:00 Urine Color Yellow (Yellow) 04/10/22 17:00 Urine Turbidity Slightly cloudy (Clear) 04/10/22 17:00 Specific [place] (Man) 1.010 (1.003-1.030) 04/10/22 17:00 Ur Protein (Man) 2+ mg/dL (Negative) 04/10/22 17:00 Ur Ketones (Man) Negative (Negative) 04/10/22 17:00 Ur Nitrite (Man) Negative (Negative) 04/10/22 17:00 Ur Reducing Substances Not Reportable 04/10/22 17:00 Urine Bilirubin (Man) Negative (Negative) 04/10/22 17:00 Urine Ictotest Not Reportable 04/10/22 17:00 Leukocyte Esterase (Man) Negative (Negative) 04/10/22 17:00 Urine WBC (Auto) 2.0 /HPF (0.0-6.0) 04/10/22 17:00 Urine RBC (Auto) 4.0 /HPF (0.0-6.0) 04/10/22 17:00 Urine Bacteria (Auto) 2+ /HPF (Negative) 04/10/22 17:00 Urine RBC (Manual) 3+ (Negative) 04/10/22 17:00 Granular Casts 6 /LPF 04/01/22 05:20 RBC Casts 7 /LPF 04/01/22 05:20 Urine Yeast (Budding) 3+ /HPF 04/10/22 17:00 Urine Creatinine 82.0 mg/dL (0.1-20.0) H 04/05/22 18:16 Urine Sodium 107 mmol/L 04/05/22 18:16 Random Vancomycin 18.2 ug/mL (0-40.0) 04/06/22 05:46 SARS-CoV-2 (PCR) Negative (Negative) 04/08/22 09:45 Hep Bs Antigen Non-reactive (Negative) 04/13/22 14:19 Hep B Core IgM Ab Non-reactive (NonReactive) 04/13/22 14:19 Hepatitis C Antibody Non-reactive (NonReactive) 04/13/22 14:19 Blood Type O POSITIVE 04/14/22 08:44 Antibody Screen Negative 04/14/22 08:44 Crossmatch See Detail 04/14/22 08:44 Microbiology: Microbiology 04/10/22 11:19 Peripheral/Venous Blood Culture - Preliminary NO GROWTH AFTER 4 DAYS 04/10/22 09:58 Peripheral/Venous Blood Culture - Preliminary NO GROWTH AFTER 4 DAYS 04/10/22 Unknown Urine,Catheterized - Straight Catheter Urine Culture - Final Kizzy Albicans Arteaga/IV: Voiding Method Condom Catheter Active Medications - Current Medications Current Medications: Generic Name Dose Route Start Last Admin Trade Name Freq PRN Reason Stop Dose Admin Acetaminophen 650 mg 03/31/22 13:31 04/14/22 13:30 Acetaminophen 325 Mg Tab PO 650 mg Q4H PRN Administration Pain MILD(1-3)/Fever >100.5/[place]ILTON Albuterol 2.5 mg 04/12/22 08:00 04/14/22 09:11 Albuterol 2.5 Mg/3 Ml Nebu IH 2.5 mg TIDRT FRANCESCA Administration Amiodarone HCl 200 mg 03/31/22 22:00 04/14/22 09:44 Amiodarone 200 Mg Tab PO 200 mg BID FRANCESCA Administration Aspirin 81 mg 04/01/22 10:00 04/14/22 09:44 Aspirin 81 Mg Tab Chew PO 81 mg QDAY FRANCESCA Administration Atorvastatin Calcium 40 mg 03/31/22 22:00 04/13/22 22:47 Atorvastatin 40 Mg Tab PO 40 mg QHS FRANCESCA Administration Doxazosin Mesylate 4 mg 04/01/22 10:00 04/14/22 11:47 Doxazosin 4 Mg Tab PO Not Given QDAY FRANCESCA Epoetin Gordon-epbx 20,000 unit 04/14/22 15:00 Epoetin Gordon-Epbx 10,000 Unit/1 Ml Vial SUB-Q CORINNE PRN hemodialysis Folic Acid 1 mg 04/08/22 10:00 04/14/22 09:44 Folic Acid 1 Mg Tab PO 1 mg DAILY FRANCESCA Administration Heparin Sodium (Porcine) 3,000 unit 04/13/22 10:24 Heparin 10,000 Units/10 Ml Vial IV CORINNE PRN hemodialysis Cefepime HCl 1 gm in 100 mls @ 200 mls/hr 04/10/22 11:00 04/14/22 09:43 Cefepime/Ns 1 Gm/100 Ml IV 200 mls/hr Q24HR FRANCESCA Administration Protocol Sodium Chloride 100 mls @ 999 mls/hr 04/13/22 10:24 Nacl 0.9% IV CORINNE PRN Hypotension Sodium Chloride 500 mls @ 0 mls/hr 04/14/22 08:00 Nacl 0.9% 500 Ml IV 04/14/22 19:00 ONCE@0800 FRANCESCA As Directed Linezolid 600 mg 04/10/22 11:00 04/14/22 09:44 Linezolid 600 Mg Tab PO 600 mg Q12HR [facility] Administration Protocol Methotrexate 15 mg 04/07/22 14:00 04/14/22 13:30 Methotrexate 2.5 Mg Tab (Dose Weekly Only) PO 15 mg Th FRANCESCA Administration Metoprolol Tartrate 100 mg 03/31/22 22:00 04/14/22 11:48 Metoprolol Tartrate 100 Mg Tab PO Not Given BID [facility] Morphine Sulfate 2 mg 03/31/22 13:31 04/12/22 11:30 Morphine 2 Mg/1 Ml Inj IV 2 mg Q4H PRN Administration Pain, Moderate (4-6) Morphine Sulfate 4 mg 03/31/22 13:31 Morphine 4 Mg/1 Ml Inj IV Q4H PRN Pain , Severe (7-10) Ondansetron HCl 4 mg 03/31/22 13:31 Ondansetron 4 Mg/2 Ml Inj IV Q8H PRN Nausea And Vomiting Pantoprazole Sodium 40 mg 04/08/22 17:00 04/14/22 09:44 Pantoprazole 40 Mg Tab PO 40 mg BIDDIAB FRANCESCA Administration Quetiapine Fumarate 50 mg 03/31/22 22:00 04/13/22 22:47 Quetiapine 25 Mg Tab PO 50 mg QHS FRANCESCA Administration Sodium Bicarbonate 650 mg 04/06/22 11:00 04/14/22 09:44 Sodium Bicarbonate 650 Mg Tab PO 650 mg BID FRANCESCA Administration Sodium Chloride 10 ml 03/31/22 22:00 04/14/22 09:45 Sodium Chloride 0.9% 10 Ml Flush Syringe IV 10 ml BID FRANCESCA Administration Sodium Chloride 10 ml 03/31/22 13:31 04/03/22 00:54 Sodium Chloride 0.9% 10 Ml Flush Syringe IV 10 ml PRN PRN Administration LINE FLUSH Tamsulosin HCl 0.4 mg 04/01/22 10:00 04/14/22 09:44 Tamsulosin 0.4 Mg Cap PO 0.4 mg QDAY FRANCESCA Administration Nutrition/Malnutrition Assess - Dietary Evaluation Nutrition/Malnutrition Findings: Nutrition Notes Start: 04/01/22 10:53 Freq: Status: Active Protocol: Document 04/12/22 13:40 ABDIAS (Rec: 04/12/22 14:10 ABDIAS [id number]) Nutrition Notes Initial or Follow up Reassessment Current Diagnosis Acute Kidney Injury,CKD(stage I-IV),Coronary Artery Disease, Sepsis,Hypertension, Respiratory Failure, Malnutrition,Hyperlipidemia Other Pertinent Diagnosis Metabolic Encephalopathy, UTI, HCAP, Anemia, GI Bleed, NSTEMI II, ... Current Diet TF-Nepro w/CARBSTEADY @ 45 ml/ hr (from D 04/12). Labs/Tests 04/12: K 5.4, Cl 111.6, BUN 51 , Crea 5.8. Pertinent Medications 04/12: Astrovastatin, Folic acid, Lasix, others nutritionally unremarkable. Height 5 ft 9 in Weight 77 kg [place] Body Weight (kg) 72.72 BMI 25.0 Weight change and time frame No body weight change reported in 1 week. Weight Status Overweight Subjective/Other Information RD consult for write/manage TF assessment. Due to risk for aspiration, a Dubhoff-tube was placed and TF ordered. I will prescribe TF to provide Pt with energy/protein needs during LOS. Pt is on Venturi Mask+, O2 saturation @ 99%, according to Physical Assessment History notes. Percent of energy/protein needs met: Prescribed TF-Nepro w/ CARBSTEADY @ 45 ml/hr provides for energy/protein needs (1, 925 Kcal/87 g) during LOS, 100 % Kcal; 100% AA. Burn Absent Trauma Absent GI Symptoms Other Difficulty In Chewing Food Allergy No Skin Integrity/Comment Assessment WNL. Current % PO Negligible Minimum of two criteria No Energy Intake (non-severe) <75% Estimated Energy Requirement >7 days Fluid Accumulation N/A Reduced [employer] Rep[employer]r Strength N/A (non-severe) Protein-Calorie Malnutrition N\A #2 Nutrition Diagnosis Altered nutrition-related laboratory values Comments: 04/12: K 5.4, Cl 111.6, BUN 51 , Crea 5.8. Diagnosis Progress(for reassessment Continues documentation) #1 Nutrition Diagnosis Inadequate oral intake, Inadequate protein-energy intake Comments: Change Nutrition Diagnosis for precision. Etiology Risk for aspiration. Diagnosis Progress(for reassessment Continues documentation) Is patient on ventilator? No Is Patient Ambulatory and/or Out of Bed No REE-([facility]-confined to bed) 1853.868 Kcal/Kg value to use for calculation 25 Approximate Energy Requirements Using 1925 kcal/Kg Calculation Used for Recommendations Kcal/kg Additional Notes Protein: 0.8-1.2 g/Kg ABW; 62- 92 g/day. Fluids: 1 ml/Kcal, or as per MD. Nutrition Intervention Change Diet Order: Discontinued. Nutrition Support: Start TF-Nepro w/CARBSTEADY @ 45 ml/hr. Flush: 200 ml water Q 4 hr, or as per MD. Kcal 1,925 Protein (gm) 87 Carbohydrates (gm) 172 Fat (gm) 103 Fluid (mL) 777 Fiber (gm) 13 % RDI: 100% Kcal; 100% AA. Add Supplement/Snack (indicate name/kcal Discontinued. /protein ) Goal #1 Provide at least 75% of energy /protein needs through Enteral Feeding during LOS. Goal #2 Adjust the dietary intervention to better serve Pt's needs and clinical conditions during LOS. Follow-Up By: 04/15/22 Additional Comments Start monitoring TF tolerance and BM.
[2022-04-14] MEDS: QUEtiapine 25 MG TAB PO SCH (21:56)
[2022-04-15] MEDS ORDERED: DEXTROSE 50% IN WATER (25GM) 50 ML SYRINGE IV PRN (00:04)
[2022-04-15] MEDS: ALBUTEROL 2.5 MG/3 ML NEBU IH SCH ×3 (08:15→19:50)
[2022-04-15] MEDS: TAMSULOSIN 0.4 MG CAP PO SCH (09:55)
[2022-04-15 10:07] LABS: Basophils % (Auto) 0.3 % (0.0-1.8); Eosinophils # (Auto) 0.4 K/mm3 (0.0-0.4); Eosinophils % (Auto) 5.4 % (0.0-4.3); Hematocrit 24.8 % (35.5-45.6); Lymphocytes # (Auto) 0.9 K/mm3 (1.2-5.4); Lymphocytes % (Auto) 11.8 % (13.4-35.0); Mean Corpuscular HGB Conc 32 % (32-34); Mean Corpuscular Volume 82 fl (84-94); Monocytes # (Auto) 0.2 K/mm3 (0.0-0.8); Monocytes % (Auto) 2.4 % (0.0-7.3); Platelet Count 183 K/mm3 (140-440); Red Blood Count 3.03 M/mm3 (3.65-5.03); Red Cell Distribution Width 19.8 % (13.2-15.2)
[2022-04-15 10:17] LABS: Calcium 8.4 mg/dL (8.4-10.2)
[2022-04-15] MEDS: AMIODARONE 200 MG TAB PO SCH ×2 (10:53→22:26)
[2022-04-15] MEDS: LINEZOLID 600 MG TAB PO SCH ×2 (10:54→22:26)
[2022-04-15] MEDS: METOPROLOL TARTRATE 100 MG TAB PO SCH (10:54)
[2022-04-15] MEDS: ASPIRIN 81 MG TAB CHEW PO SCH (10:55)
[2022-04-15] MEDS: PANTOPRAZOLE 40 MG TAB PO SCH ×2 (10:56→18:04)
[2022-04-15] MEDS: FOLIC ACID 1 MG TAB PO SCH (10:56)
--- NOTE | 2022-04-15 11:41 | Progress Note ---
Assessment and Plan Cultures: COVID-19 PCR: Negative 03/31/2022 blood culture: No growth 04/01/2022 urine culture: VRE - Enterococcus faecium 04/08/2022 COVID-19 PCR: Negative 04/10/2022 blood culture: No growth so far 04/10/2022 urine culture: Kizzy albicans A/P: 67-year-old male with CAD, CKD, atrial fibrillation, vascular dementia was admitted to the hospital on 03/31/2022 with fever and shortness of breath: #New sepsis: ?aspiration. Chest x-ray with bibasilar infiltrates. UA without any significant pyuria. Blood culture with no growth so far. #Aspiration pneumonia, Acute hypoxic respiratory failure: on oxygen. #VRE UTI: Asymptomatic bacteriuria, UA without any significant pyuria reflect colonization. #MARIE on CKD: Nephrology on board, initiated on HD. 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 Unclear indication. Patient does not know the indication. ?Rheumatoid arthritis #Leukopenia: improving after holding methotrexate. #Acute encephalopathy: with underlying dementia. Improving. Recs: -continue IV Cefepime renally adjusted, Linezolid for aspiration pneumonia, stop after tomorrow's doses are completed Juanis Greco MD, FACPANGELINA [facility] O: [phone] F: [phone] C: [phone] Subjective Date of service: 04/15/22 Principal diagnosis: anemia Interval history: No fever. Seen at dialysis. More responsive. Has no complaints. Still has ventimask on. Objective - Exam Narrative Exam: Physical Exam: Constitutional: awake, no distress Head, Ears, Nose: Normocephalic, atraumatic. External ears, nose normal Eyes: Conjunctivae/corneas clear. No icterus. No ptosis. Neck: Supple, no meningeal signs Cardiovascular: S1, S2 + Respiratory: AE fair b/l GI: Soft, non-tender; bowel sounds normal. No peritoneal signs. Musculoskeletal: No pedal edema, no cyanosis. Skin: No rash or abscess Hem/Lymphatic: No palpable cervical or supraclavicular nodes. No lymphangitis Psych: No agitation Neurological: awake, answering basic questions - Constitutional Vitals: Vital Signs Temp Pulse Resp BP Pulse Ox 98.1 F 100 H 18 118/61 100 04/15/22 05:56 04/15/22 08:15 04/15/22 08:15 04/15/22 05:56 04/15/22 05:56 Temperature -Last 24 Hours Temperature 98.1 F Temperature 99.1 F Temperature 98.6 F Temperature 98.6 F Temperature 97.8 F Temperature 98.0 F - Labs CBC & Chem 7: 04/15/22 09:41 04/15/22 09:41 Labs: Abnormal lab results 04/14/22 04/15/22 04/15/22 Range/Units 08:44 09:41 09:41 RBC 3.03 L (3.65-5.03) M/mm3 Hgb 8.0 L (11.8-15.2) gm/dl Hct 24.8 L (35.5-45.6) % MCV 82 L (84-94) fl MCH 26 L (28-32) pg RDW 19.8 H (13.2-15.2) % Lymph % (Auto) 11.8 L (13.4-35.0) % Eos % (Auto) 5.4 H (0.0-4.3) % Lymph # (Auto) 0.9 L (1.2-5.4) K/mm3 Seg Neutrophils % 80.1 H (40.0-70.0) % Sodium 136 L (137-145) mmol/L Potassium 3.5 L (3.6-5.0) mmol/L BUN 45 H (9-20) mg/dL Creatinine 6.1 H (0.8-1.3) mg/dL Glucose 106 H (75-100) mg/dL Crossmatch See Detail
[2022-04-15] MEDS ORDERED: POTASSIUM CHLORIDE ER 20 MEQ TAB PO NR (12:00)
--- NOTE | 2022-04-15 14:11 | Progress Note ---
Assessment and Plan Assessment and plan: he patient is a 67-year-old male with CAD, CKD, atrial fibrillation, vascular dementia was admitted to the hospital on 03/31/2022 with complaints of fever and shortness of breath of 3 days. Upon evaluation in the ED, T-max of 102.8 F. Also with atrial fibrillation with rapid ventricular rate, leukocytosis. Admitted due to concerns for sepsis from pneumonia. Was started on empiric antibiotics. Urine culture growing VRE.. Echo showed EF of 25 to 30%, cardiology following. Initial chest x-ray on 03/31/2022 showed left upper lobe pneumonia. Interval improvement noted on chest x-ray from 04/03/2022. Hospital course: 04/01/2020; patient is febrile, mild distress, on Vanco and cefepime, follow cultures 04/02; patient's hemoglobin dropped to 6.8, 1 unit PRBC transfusion, Eliquis held, follow stool guaiac Cardiology recommendations noted and appreciated 04/03; received 1 unit PRBC yesterday, Hb today 7.2, closely monitor 04/04; patient completed 5 days of Vanco and cefepime for HCAP Urine cultures positive for VRE, add Zyvox 600 mg IV every 12 Contact isolation, ID consulted 04/05: Final ID no antibiotic treatment necessary for VRE as that could be coloni zation. Continue to monitor for renal function improvement. Plan for colonoscopy on . Continue to monitor H&H. 04/06: Continue to follow serum creatinine, plan for colonoscopy tomorrow. F ollow H&H. Patient also needs placement 04/07: Planned for colonoscopy but patient could not complete bowel prep due to underlying dementia and metabolic encephalopathy Continue supportive care, continue to monitor H&H. Pending placement. Continue to follow renal function. Creatinine 3.2 today with sodium 148. Off Lasix. Repeat BMP tomorrow. 04/08; sodium and creatinine level further increased today. We will start on low volume D5 W. Repeat BMP in the morning, follow urine output. Discussed plan of care with nephrology. Guarded prognosis. 04/09: Patient spiked temp 100.1 yesterday but afebrile now. Continue to follow clinically. Monitor off antibiotics. If continues to spike fever then need to do reculture. Continue low volume D5W, monitor serum creatinine and sodium level. 04/10: -Remains with 101 fever on Monday night, low-grade fever yesterday repeat blood, urine and check CXR and then restart IV Cefepime 1 gm daily + Linezolid 600 mg BID. Monitor renal function. Creatinine level increasing. Renal prognosis is guarded. 04/11: ID restarted cefepime and Zyvox yesterday. Creatinine appears to be worsening but no labs today. Recheck BMP. Etiology appears to be secondary to vasomotor MARIE superimposed on CKD in the setting of sepsis/CHF/A. fib with RVR. Renal ultrasound negative. Continue amiodarone and metoprolol for rate control with A. fib. Continue diuresis with Lasix. No NATALYA inhibitor due to renal insufficiency. 04/12/2022: Continue with antibiotics (cefepime and Zosyn). Continue holding NATALYA inhibitor's/ARB's given patient's worsening renal function. Continue diuresis. Nephrology spoke with the patient's son about the possibility of hemodialysis given the patient's worsening renal function (Creatinine 2.0--> 2.3--> 2.9--> 3.2--> 4.1--> 5.3--> 5.8). Pending repeat BMP given patient's persistent hyperkalemia requiring medical management. Assessment and plan: #MARIE on chronic kidney disease stage III secondary to vasomotor nephropathy Nephrology consulted; appreciate recs. Renally dose meds and avoid nephrotoxic drugs. Continue holding NATALYA inhibitor/ARB's. Continue IV diuresis in the setting of patient being volume overloaded. Vascular surgery consulted for placement of Vas-Cath in order for patient to undergo hemodialysis. Patient initiated on hemodialysis on 04/13/2022. Continue hemodialysis #Hospital-acquired pneumonia #Acute hypoxic respiratory failure - etiology: Secondary to hospital-acquired pneumonia - baseline oxygen requirements: Room air - supplemental oxygen: 8 L nasal cannula Unremarkable blood cultures to date. Continue cefepime and Zosyn (restarted on 04/11/2022). - Continue protocol: continue pulse oximetry, wean oxygen as tolerated, ordered incentive spirometry and educated patient on how to use it and its importance. - continue to monitor #VRE UTI (present on admission) #Sepsis secondary to VRE UTI #Acute metabolic encephalopathy Continue contact isolation Continue Zosyn and cefepime (renally dosed). Infectious disease consulted; appreciate recs #Hyperkalemiaresolved #Hypokalemia Potassium 5.4. Pending repeat BMP Initiating medical management (Kayexalate) #Hypernatremiaresolved #Hyponatremia - potassium 3.5. Repleting. Monitor with BMP. #Microcytic anemia #Chronic lower GI bleed Hemoglobin 6.6; transfusing 1 unit packed RBC. Holding patient's Eliquis given anemia. Gastroenterology consulted; appreciate recs. Colonoscopy initially planned for ; however patient unable to undergo colonoscopy due to incomplete bowel prep and worsening metabolic encephalopathy. Transfuse if hemoglobin <or patient becomes symptomatic. #A. fib with rapid ventricular rate; rate controlled Continue amiodarone, metoprolol Cardiology consulted; appreciate recs. Eliquis currently being held given anemia. #Acute on chronic systolic heart failure LVEF 25 to 30%. Continue diuresis and beta-blockade. Continue holding NATALYA inhibitor and ARB in the setting of MARIE Cardiology consulted; appreciate recs #Non-ST elevation ND (type II) Likely secondary to MARIE on CKD stage III No current intervention at this time. #Moderate protein calorie malnutrition Albumin 2.8 Nutrition supplements, supportive care Nutrition consulted #Tobacco dependence #Tobacco/Smoking cessation counseling - Counseled patient about the importance of smoking cessation and the possible sequelae as a result of continued tobacco consumption. The patient expresses understanding. -Time: +15 mins #Immunocompromised host Seems to be on methotrexate and prednisone as per his home medications. Unclear indication. If neutropenia worsens, methotrexate will be discontinued. Critical Care Billing: The high probability of a clinically significant, sudden or life threatening deterioration of the [renal] system(s) required my full and direct attention, intervention and personal management. The aggregate critical care time was [60] minutes. This time is in addition to time spent performing reported procedures but includes the following: [x] Data Review and interpretation [x] Patient assessment and monitoring of vital signs [x] Documentation [x] Medication orders and management Disposition Plan: Continue medical management Total Time Spent with Patient (Minutes): 45 minutes History Interval history: No acute events overnight. Hospitalist Physical - Constitutional Vitals: Temp Pulse Resp BP Pulse Ox 99.3 F 110 H 20 106/74 100 04/15/22 11:00 04/15/22 13:30 04/15/22 11:00 04/15/22 13:30 04/15/22 11:00 General appearance: Present: no acute distress, well-nourished, other (Patient on a Ventimask) - EENT Eyes: Present: PERRL, EOM intact ENT: hearing intact, clear oral mucosa, dentition normal, other (NG tube in place) - Neck Neck: Present: supple, normal ROM, other (Vas-Cath in right upper chest) - Respiratory Respiratory effort: labored Respiratory: bilateral: rhonchi (On Venturi mask 7 L) - Cardiovascular Rhythm: regular Heart Sounds: Present: S1 & S2 - Extremities Extremities: no ischemia, pulses intact, pulses symmetrical, No edema, normal temperature, normal color Peripheral Pulses: within normal limits - Abdominal General gastrointestinal: soft, non-tender, non-distended, normal bowel sounds - Integumentary Integumentary: Present: clear, warm, dry - Psychiatric Psychiatric: appropriate mood/affect, cooperative - Neurologic Neurologic: CNII-XII intact - Allied Health Allied health notes reviewed: nursing HEART Score - HEART Score Troponin: Troponin T 0.135 ng/mL (0.00-0.029) H* 04/03/22 12:29 Results - Labs CBC & Chem 7: 04/15/22 09:41 04/15/22 09:41 Labs: Laboratory Last Values WBC 7.4 K/mm3 (4.5-11.0) 04/15/22 09:41 RBC 3.03 M/mm3 (3.65-5.03) L 04/15/22 09:41 Hgb 8.0 gm/dl (11.8-15.2) L 04/15/22 09:41 Hct 24.8 % (35.5-45.6) L 04/15/22 09:41 MCV 82 fl (84-94) L 04/15/22 09:41 MCH 26 pg (28-32) L 04/15/22 09:41 MCHC 32 % (32-34) 04/15/22 09:41 RDW 19.8 % (13.2-15.2) H 04/15/22 09:41 Plt Count 183 K/mm3 (140-440) 04/15/22 09:41 Lymph % (Auto) 11.8 % (13.4-35.0) L 04/15/22 09:41 [place] % (Auto) 2.4 % (0.0-7.3) 04/15/22 09:41 Eos % (Auto) 5.4 % (0.0-4.3) H 04/15/22 09:41 Baso % (Auto) 0.3 % (0.0-1.8) 04/15/22 09:41 Lymph # (Auto) 0.9 K/mm3 (1.2-5.4) L 04/15/22 09:41 [place] # (Auto) 0.2 K/mm3 (0.0-0.8) 04/15/22 09:41 Eos # (Auto) 0.4 K/mm3 (0.0-0.4) 04/15/22 09:41 Baso # (Auto) 0.0 K/mm3 (0.0-0.1) 04/15/22 09:41 Add Manual Diff Complete 04/14/22 04:50 Total Counted 100 04/14/22 04:50 Seg Neutrophils % 80.1 % (40.0-70.0) H 04/15/22 09:41 Seg Neuts % (Manual) 73.0 % (40.0-70.0) H 04/14/22 04:50 Band Neutrophils % 0 % 04/14/22 04:50 Lymphocytes % (Manual) 19.0 % (13.4-35.0) 04/14/22 04:50 Reactive Lymphs % (Man) 0 % 04/14/22 04:50 Monocytes % (Manual) 3.0 % (0.0-7.3) 04/14/22 04:50 Eosinophils % (Manual) 5.0 % (0.0-4.3) H 04/14/22 04:50 Basophils % (Manual) 0 % (0.0-1.8) 04/14/22 04:50 Metamyelocytes % 0 % 04/14/22 04:50 Myelocytes % 0 % 04/14/22 04:50 Promyelocytes % 0 % 04/14/22 04:50 Blast Cells % 0 % 04/14/22 04:50 Nucleated RBC % Not Reportable 04/14/22 04:50 Seg Neutrophils # 5.9 K/mm3 (1.8-7.7) 04/15/22 09:41 Seg Neutrophils # Man 2.6 K/mm3 (1.8-7.7) 04/14/22 04:50 Band Neutrophils # 0.0 K/mm3 04/14/22 04:50 Lymphocytes # (Manual) 0.7 K/mm3 (1.2-5.4) L 04/14/22 04:50 Abs React Lymphs (Man) 0.0 K/mm3 04/14/22 04:50 Monocytes # (Manual) 0.1 K/mm3 (0.0-0.8) 04/14/22 04:50 Eosinophils # (Manual) 0.2 K/mm3 (0.0-0.4) 04/14/22 04:50 Basophils # (Manual) 0.0 K/mm3 (0.0-0.1) 04/14/22 04:50 Metamyelocytes # 0.0 K/mm3 04/14/22 04:50 Myelocytes # 0.0 K/mm3 04/14/22 04:50 Promyelocytes # 0.0 K/mm3 04/14/22 04:50 Blast Cells # 0.0 K/mm3 04/14/22 04:50 WBC Morphology Not Reportable 04/14/22 04:50 Hypersegmented Neuts Not Reportable 04/14/22 04:50 Hyposegmented Neuts Not Reportable 04/14/22 04:50 Hypogranular Neuts Not Reportable 04/14/22 04:50 Smudge Cells Not Reportable 04/14/22 04:50 Toxic Granulation Not Reportable 04/14/22 04:50 Toxic Vacuolation Not Reportable 04/14/22 04:50 Dohle Bodies Not Reportable 04/14/22 04:50 Pelger-Huet Anomaly Not Reportable 04/14/22 04:50 Marylin Rods Not Reportable 04/14/22 04:50 Platelet Estimate Consistent w auto 04/14/22 04:50 Clumped Platelets Not Reportable 04/14/22 04:50 Plt Clumps, EDTA Not Reportable 04/14/22 04:50 Large Platelets Not Reportable 04/14/22 04:50 Giant Platelets Not Reportable 04/14/22 04:50 Platelet Satelliting Not Reportable 04/14/22 04:50 Plt Morphology Comment Not Reportable 04/14/22 04:50 RBC Morphology Not Reportable 04/14/22 04:50 Dimorphic RBCs Not Reportable 04/14/22 04:50 Polychromasia Not Reportable 04/14/22 04:50 Hypochromasia 1+ 04/14/22 04:50 Poikilocytosis Not Reportable 04/14/22 04:50 Anisocytosis 1+ 04/14/22 04:50 Microcytosis Not Reportable 04/14/22 04:50 Macrocytosis Not Reportable 04/14/22 04:50 Spherocytes Not Reportable 04/14/22 04:50 Pappenheimer Bodies Not Reportable 04/14/22 04:50 Sickle Cells Not Reportable 04/14/22 04:50 Target Cells Not Reportable 04/14/22 04:50 Tear Drop Cells Not Reportable 04/14/22 04:50 Ovalocytes Not Reportable 04/14/22 04:50 Helmet Cells Not Reportable 04/14/22 04:50 [place] Bodies Not Reportable 04/14/22 04:50 [place] Rings Not Reportable 04/14/22 04:50 Damari Cells Not Reportable 04/14/22 04:50 Bite Cells Not Reportable 04/14/22 04:50 Crenated Cell Not Reportable 04/14/22 04:50 Elliptocytes Not Reportable 04/14/22 04:50 Acanthocytes (Spur) Not Reportable 04/14/22 04:50 Rouleaux Not Reportable 04/14/22 04:50 Hemoglobin C Crystals Not Reportable 04/14/22 04:50 Schistocytes Not Reportable 04/14/22 04:50 Malaria parasites Not Reportable 04/14/22 04:50 Cristino Bodies Not Reportable 04/14/22 04:50 Hem Pathologist Commnt No 04/14/22 04:50 Sodium 136 mmol/L (137-145) L 04/15/22 09:41 Potassium 3.5 mmol/L (3.6-5.0) L 04/15/22 09:41 Chloride 98.1 mmol/L (98-107) 04/15/22 09:41 Carbon Dioxide 29 mmol/L (22-30) 04/15/22 09:41 Anion Gap 12 mmol/L 04/15/22 09:41 BUN 45 mg/dL (9-20) H 04/15/22 09:41 Creatinine 6.1 mg/dL (0.8-1.3) H 04/15/22 09:41 Estimated GFR 11 ml/min 04/15/22 09:41 BUN/Creatinine Ratio 7 % 04/15/22 09:41 Glucose 106 mg/dL (75-100) H 04/15/22 09:41 POC Glucose 103 mg/dL (70-105) 04/15/22 07:34 Lactic Acid 1.20 mmol/L (0.7-2.0) 03/31/22 08:00 Calcium 8.4 mg/dL (8.4-10.2) 04/15/22 09:41 Phosphorus 3.90 mg/dL (2.5-4.5) 04/15/22 09:41 Magnesium 1.90 mg/dL (1.7-2.3) 04/15/22 09:41 Total Bilirubin 0.50 mg/dL (0.1-1.2) 04/05/22 05:06 AST 9 units/L (5-40) 04/05/22 05:06 ALT 7 units/L (7-56) 04/05/22 05:06 Alkaline Phosphatase 80 units/L (35-129) 04/05/22 05:06 Total Creatine Kinase 55 units/L (55-170) 03/31/22 08:00 Troponin T 0.135 ng/mL (0.00-0.029) H* 04/03/22 12:29 NT-Pro-B Natriuret Pep 72452 pg/mL (0-900) H 03/31/22 08:00 Total Protein 5.8 g/dL (6.3-8.2) L 04/05/22 05:06 Albumin 2.0 g/dL (3.9-5) L 04/05/22 05:06 Albumin/Globulin Ratio 0.5 % 04/05/22 05:06 Triglycerides 76 mg/dL (2-149) 03/31/22 08:00 Cholesterol 109 mg/dL (50-199) 03/31/22 08:00 LDL Cholesterol Direct 55 mg/dL (50-130) 03/31/22 08:00 HDL Cholesterol 38 mg/dL (40-59) L 03/31/22 08:00 Cholesterol/HDL Ratio 2.86 % 03/31/22 08:00 Procalcitonin 0.36 ng/mL (<0.15) 03/31/22 08:00 Urine Color Yellow (Yellow) 04/10/22 17:00 Urine Turbidity Slightly cloudy (Clear) 04/10/22 17:00 Specific Bern (Man) 1.010 (1.003-1.030) 04/10/22 17:00 Ur Protein (Man) 2+ mg/dL (Negative) 04/10/22 17:00 Ur Ketones (Man) Negative (Negative) 04/10/22 17:00 Ur Nitrite (Man) Negative (Negative) 04/10/22 17:00 Ur Reducing Substances Not Reportable 04/10/22 17:00 Urine Bilirubin (Man) Negative (Negative) 04/10/22 17:00 Urine Ictotest Not Reportable 04/10/22 17:00 Leukocyte Esterase (Man) Negative (Negative) 04/10/22 17:00 Urine WBC (Auto) 2.0 /HPF (0.0-6.0) 04/10/22 17:00 Urine RBC (Auto) 4.0 /HPF (0.0-6.0) 04/10/22 17:00 Urine Bacteria (Auto) 2+ /HPF (Negative) 04/10/22 17:00 Urine RBC (Manual) 3+ (Negative) 04/10/22 17:00 Granular Casts 6 /LPF 04/01/22 05:20 RBC Casts 7 /LPF 04/01/22 05:20 Urine Yeast (Budding) 3+ /HPF 04/10/22 17:00 Urine Creatinine 82.0 mg/dL (0.1-20.0) H 04/05/22 18:16 Urine Sodium 107 mmol/L 04/05/22 18:16 Random Vancomycin 18.2 ug/mL (0-40.0) 04/06/22 05:46 SARS-CoV-2 (PCR) Negative (Negative) 04/08/22 09:45 Hepatitis A IgM Ab Non-reactive (NonReactive) 04/13/22 14:19 Hep Bs Antigen Non-reactive (Negative) 04/13/22 14:19 Hep B Core IgM Ab Non-reactive (NonReactive) 04/13/22 14:19 Hepatitis C Antibody Non-reactive (NonReactive) 04/13/22 14:19 Blood Type O POSITIVE 04/14/22 08:44 Antibody Screen Negative 04/14/22 08:44 Crossmatch See Detail 04/14/22 08:44 Microbiology: Microbiology 04/10/22 11:19 Peripheral/Venous Blood Culture - Final NO GROWTH AFTER 5 DAYS 04/10/22 09:58 Peripheral/Venous Blood Culture - Final NO GROWTH AFTER 5 DAYS Arteaga/IV: Voiding Method Indwelling Catheter Active Medications - Current Medications Current Medications: Generic Name Dose Route Start Last Admin Trade Name Freq PRN Reason Stop Dose Admin Acetaminophen 650 mg 03/31/22 13:31 04/14/22 13:30 Acetaminophen 325 Mg Tab PO 650 mg Q4H PRN Administration Pain MILD(1-3)/Fever >100.5/[place] Albuterol 2.5 mg 04/12/22 08:00 04/15/22 08:15 Albuterol 2.5 Mg/3 Ml Nebu IH 2.5 mg TIDRT FRANCESCA Administration Amiodarone HCl 200 mg 03/31/22 22:00 04/14/22 21:56 Amiodarone 200 Mg Tab PO 200 mg BID FRANCESCA Administration Aspirin 81 mg 04/01/22 10:00 04/14/22 09:44 Aspirin 81 Mg Tab Chew PO 81 mg QDAY FRANCESCA Administration Atorvastatin Calcium 40 mg 03/31/22 22:00 04/14/22 21:56 Atorvastatin 40 Mg Tab PO 40 mg QHS FRANCESCA Administration Dextrose 25 ml 04/15/22 00:04 Dextrose 50% In Water (25gm) 50 Ml Syringe IV Q30MIN PRN Hypoglycemia Protocol Epoetin Gordon-epbx 20,000 unit 04/14/22 15:00 Epoetin Gordon-Epbx 10,000 Unit/1 Ml Vial SUB-Q CORINNE PRN hemodialysis Folic Acid 1 mg 04/08/22 10:00 04/14/22 09:44 Folic Acid 1 Mg Tab PO 1 mg DAILY FRANCESCA Administration Heparin Sodium (Porcine) 3,000 unit 04/13/22 10:24 Heparin 10,000 Units/10 Ml Vial IV CORINNE PRN hemodialysis Cefepime HCl 1 gm in 100 mls @ 200 mls/hr 04/10/22 11:00 04/14/22 09:43 Cefepime/Ns 1 Gm/100 Ml IV 04/16/22 11:00 200 mls/hr Q24HR FRANCESCA Administration Protocol Sodium Chloride 100 mls @ 999 mls/hr 04/13/22 10:24 Nacl 0.9% IV CORINNE PRN Hypotension Linezolid 600 mg 04/10/22 11:00 04/14/22 21:55 Linezolid 600 Mg Tab PO 04/16/22 11:00 600 mg Q12HR FRANCESCA Administration Protocol Metoprolol Tartrate 100 mg 03/31/22 22:00 04/14/22 21:55 Metoprolol Tartrate 100 Mg Tab PO 100 mg BID FRANCESCA Administration Morphine Sulfate 2 mg 03/31/22 13:31 04/12/22 11:30 Morphine 2 Mg/1 Ml Inj IV 2 mg Q4H PRN Administration Pain, Moderate (4-6) Morphine Sulfate 4 mg 03/31/22 13:31 Morphine 4 Mg/1 Ml Inj IV Q4H PRN Pain , Severe (7-10) Ondansetron HCl 4 mg 03/31/22 13:31 Ondansetron 4 Mg/2 Ml Inj IV Q8H PRN Nausea And Vomiting Pantoprazole Sodium 40 mg 04/08/22 17:00 04/14/22 17:07 Pantoprazole 40 Mg Tab PO 40 mg BIDDIAB FRANCESCA Administration Potassium Chloride 40 meq 04/15/22 12:00 Potassium Chloride Er 20 Meq Tab PO 04/15/22 18:00 ONCE@1200 NR Quetiapine Fumarate 50 mg 03/31/22 22:00 04/14/22 21:56 Quetiapine 25 Mg Tab PO 50 mg QHS FRANCESCA Administration Sodium Chloride 10 ml 03/31/22 22:00 04/14/22 21:56 Sodium Chloride 0.9% 10 Ml Flush Syringe IV 10 ml BID FRANCESCA Administration Tamsulosin HCl 0.4 mg 04/01/22 10:00 04/14/22 09:44 Tamsulosin 0.4 Mg Cap PO 0.4 mg QDAY FRANCESCA Administration Nutrition/Malnutrition Assess - Dietary Evaluation Nutrition/Malnutrition Findings: Nutrition Notes Start: 04/01/22 10:53 Freq: Status: Active Protocol: Document 04/15/22 12:27 SIM (Rec: 04/15/22 12:39 SIM [email or web address]) Nutrition Notes Initial or Follow up Reassessment Current Diagnosis Acute Kidney Injury,Sepsis, Heart Failure,Respiratory Failure Other Pertinent Diagnosis Pneu, UTI, acute metabolic encephalopathy, anemia Current Diet TF - Nepro at 45ml/hr Labs/Tests Na 136 K 3.5 BUN 45 Cr 6.1 Pertinent Medications 40mEq KCl Height 5 ft 9 in Weight 77 kg [place] Body Weight (kg) 72.72 BMI 25.0 Weight Status Appropriate Subjective/Other Information Pt tolerating TF at goal rate. Per [employer] evaluation on 04/14, PEG tube recommended. HD initiated on 04/13. New stage 2 sacral wound and (L) posterior buttocks wound reported 04/13. Percent of energy/protein needs met: 105% energy 95% pro Burn Absent Trauma Absent #2 Nutrition Diagnosis Altered nutrition-related laboratory values Diagnosis Progress(for reassessment Continues documentation) #1 Nutrition Diagnosis Inadequate oral intake Diagnosis Progress(for reassessment Continues documentation) Is patient on ventilator? No Is Patient Ambulatory and/or Out of Bed No REE-([place]-confined to bed) [phone] Calculation Used for [facility]ations [facility] Additional Notes Pro needs >1.2g/kg: >92g/day Fluid needs 1-1.5L/day Nutrition Intervention Nutrition Support: Continue Nepro at 45ml/hr with 200ml water flush q4h. Kcal 1,944 Protein (gm) 87 Carbohydrates (gm) 174 Fat (gm) 104 Fluid (mL) 785 Fiber (gm) 14 Goal #1 TF tolerance Goal #2 TF to provide at least 75% energy and pro needs Follow-Up By: 04/22/22 Additional Comments F/U: stable TF, wt
[2022-04-15] MEDS: CEFEPIME/NS 1 GM/100 ML 1 GM/100 ML BAG IV SCH (18:02)
[2022-04-15] MEDS: ACETAMINOPHEN 325 MG TAB PO PRN (22:25)
[2022-04-15] MEDS: QUEtiapine 25 MG TAB PO SCH (22:26)
[2022-04-16] MEDS ORDERED: SODIUM CHLORIDE 0.9% 500 ML 500 ML IV ONE (01:00)
[2022-04-16 05:34] LABS: Basophils % (Auto) 0.2 % (0.0-1.8); Eosinophils # (Auto) 0.1 K/mm3 (0.0-0.4); Eosinophils % (Auto) 1.7 % (0.0-4.3); Hematocrit 24.2 % (35.5-45.6); Hemoglobin 7.9 gm/dl (11.8-15.2); Lymphocytes # (Auto) 0.8 K/mm3 (1.2-5.4); Lymphocytes % (Auto) 11.1 % (13.4-35.0); Mean Corpuscular HGB Conc 33 % (32-34); Mean Corpuscular Volume 80 fl (84-94); Monocytes # (Auto) 0.2 K/mm3 (0.0-0.8); Monocytes % (Auto) 2.2 % (0.0-7.3); Platelet Count 128 K/mm3 (140-440); Red Blood Count 3.02 M/mm3 (3.65-5.03); Red Cell Distribution Width 19.9 % (13.2-15.2)
[2022-04-16] MEDS: METOPROLOL TARTRATE 100 MG TAB PO SCH ×3 (05:54→22:00)
[2022-04-16 06:18] LABS: Calcium 8.4 mg/dL (8.4-10.2)
[2022-04-16] MEDS: PANTOPRAZOLE 40 MG TAB PO SCH ×2 (08:00→17:54)
[2022-04-16] MEDS: ALBUTEROL 2.5 MG/3 ML NEBU IH SCH ×3 (08:42→20:12)
[2022-04-16] MEDS: FOLIC ACID 1 MG TAB PO SCH (10:11)
[2022-04-16] MEDS: ASPIRIN 81 MG TAB CHEW PO SCH (10:12)
[2022-04-16] MEDS: LINEZOLID 600 MG TAB PO SCH (10:12)
[2022-04-16] MEDS: AMIODARONE 200 MG TAB PO SCH (10:12)
[2022-04-16] MEDS: TAMSULOSIN 0.4 MG CAP PO SCH (10:12)
[2022-04-16] MEDS: CEFEPIME/NS 1 GM/100 ML 1 GM/100 ML BAG IV SCH (10:12)
[2022-04-16] MEDS: MORPHINE 2 MG/1 ML INJ IV PRN (10:37)
--- NOTE | 2022-04-16 14:40 | Progress Note ---
Assessment and Plan 1. Acute kidney injury: Vasomotor MARIE superimposed on CKD in the setting of sepsis/CHF/A.Fib with RVR. Renal US negative. Monitor renal function. Non-oliguric. Renal prognosis is guarded. Avoid nephrotoxic agents. Meds dosage based on GFR. 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 Patient started on hemodialysis due to worsening renal function, volume overload and associated hyperkalemia. Hemodialysis: 04/13, 04/14(UF only). HD today. 2. FEN: Volume overload, UF with HD as tolerated. Hyperkalemia, improved, monitor. Hypernatremia, monitor. Hyperchloremic metabolic acidosis, improved, monitor. Replete lytes as needed. Monitor lytes and volume status. 3. A.fib with RVR: Amio and Metoprolol. Followed by Cards. Monitor. 4. Acute on chronic systolic congestive heart failure / Non-STEMI: LVEF 25 to 30%. Beta-blockers. Monitor. Followed by Cards. 5. HCAP / UTI / Sepsis: Followed by ID. 6. Acute metabolic encephalopathy, POA: H/o Dementia. Monitor. 7. Microcytic Anemia, POA: Heme positive stool. Trend. Seen by GI. 8. Bladder retention: Arteaga catheter. Subjective: Patient was seen and examined at the bedside. Examination: General appearance: well-developed, appears stated age, no distress, on VM O2 HEENT: atraumatic, no icterus Neck: trachea midline Respiratory: decreased breath sounds Heart: S1S2, no murmur Abdomen: soft, bowel sounds heard, NT Integumentary: no obvious rash Neurologic: alert, able to tell his name, not following any command Ext: UE edema Subjective Date of service: 04/15/22 Principal diagnosis: anemia Objective - Vital Signs Vital signs: Vital Signs - 12hr 04/16/22 04/16/22 04/16/22 02:51 06:20 08:46 Temperature 99.2 F 98 F Pulse Rate 115 H 99 H Pulse Rate [ 77 Anterior Bilateral Throughout] Respiratory 34 H 22 Rate Respiratory 23 Rate [Anterior Bilateral Throughout] Blood Pressure 93/50 107/61 [Right] O2 Sat by Pulse 99 99 Oximetry 04/16/22 04/16/22 08:47 12:00 Temperature 97.9 F Pulse Rate 76 Pulse Rate [ Anterior Bilateral Throughout] Respiratory 28 H Rate Respiratory Rate [Anterior Bilateral Throughout] Blood Pressure 104/57 [Right] O2 Sat by Pulse 95 99 Oximetry - Lab 04/16/22 04:55 04/16/22 04:55 Most recent lab results Calcium 8.4 mg/dL (8.4-10.2) 04/16/22 04:55 Phosphorus 3.90 mg/dL (2.5-4.5) 04/15/22 09:41 Magnesium 1.90 mg/dL (1.7-2.3) 04/15/22 09:41 Urine Creatinine 82.0 mg/dL (0.1-20.0) H 04/05/22 18:16 Urine Sodium 107 mmol/L 04/05/22 18:16 Medications & Allergies - Medications Allergies/Adverse Reactions: Allergies lisinopril Allergy (Verified 03/31/22 07:48) Hives Home Medications: Home Medications Medication Instructions Recorded Confirmed Last Taken Type Tamsulosin [Flomax] 0.4 mg PO QDAY #7 cap 08/28/15 04/08/22 Unknown Rx AtorvaSTATin [Lipitor] 40 mg PO QHS 03/11/22 04/08/22 Unknown History metHOTREXate sodium [Methotrexate] 15 mg PO 1XW 03/11/22 04/08/22 Unknown History predniSONE 10 mg PO BID 03/16/22 04/08/22 Unknown History Amiodarone [Cordarone 200 MG TAB] 200 mg PO BID tablet 03/23/22 04/08/22 Unknown Rx Apixaban [Eliquis] 5 mg PO Q12HR tablet 03/23/22 04/08/22 Unknown Rx Aspirin [Aspirin BABY CHEW TAB] 81 mg PO QDAY tab.chew 03/23/22 04/08/22 Unknown Rx Doxazosin [Cardura] 4 mg PO QDAY tablet 03/23/22 04/08/22 Unknown Rx Famotidine [Pepcid] 20 mg PO DAILY tablet 03/23/22 04/08/22 Unknown Rx Metoprolol [Lopressor TAB] 100 mg PO BID tablet 03/23/22 04/08/22 Unknown Rx Nicotine [Habitrol] 21 mg TD QDAY patch 03/23/22 04/08/22 Unknown Rx QUEtiapine [SEROquel] 50 mg PO QHS tablet 03/23/22 04/08/22 Unknown Rx amLODIPine 10 mg PO DAILY #30 tab 03/24/22 04/08/22 Unknown Rx Active Medications: Generic Name Dose Route Start Last Admin Trade Name Freq PRN Reason Stop Dose Admin Acetaminophen 650 mg 03/31/22 13:31 04/15/22 22:25 Acetaminophen 325 Mg Tab PO 650 mg Q4H PRN Administration Pain MILD(1-3)/Fever >100.5/HILTON Albuterol 2.5 mg 04/12/22 08:00 04/16/22 08:42 Albuterol 2.5 Mg/3 Ml Nebu IH 2.5 mg TIDRT FRANCESCA Administration Amiodarone HCl 200 mg 03/31/22 22:00 04/16/22 10:12 Amiodarone 200 Mg Tab PO 200 mg BID FRANCESCA Administration Aspirin 81 mg 04/01/22 10:00 04/16/22 10:12 Aspirin 81 Mg Tab Chew PO 81 mg QDAY FRANCESCA Administration Atorvastatin Calcium 40 mg 03/31/22 22:00 04/15/22 22:26 Atorvastatin 40 Mg Tab PO 40 mg QHS FRANCESCA Administration Dextrose 25 ml 04/15/22 00:04 Dextrose 50% In Water (25gm) 50 Ml Syringe IV Q30MIN PRN Hypoglycemia Protocol Epoetin Gordon-epbx 20,000 unit 04/14/22 15:00 Epoetin Gordon-Epbx 10,000 Unit/1 Ml Vial SUB-Q CORINNE PRN hemodialysis Folic Acid 1 mg 04/08/22 10:00 04/16/22 10:11 Folic Acid 1 Mg Tab PO 1 mg DAILY FRANCESCA Administration Heparin Sodium (Porcine) 3,000 unit 04/13/22 10:24 Heparin 10,000 Units/10 Ml Vial IV CORINNE PRN hemodialysis Sodium Chloride 100 mls @ 999 mls/hr 04/13/22 10:24 Nacl 0.9% IV CORINNE PRN Hypotension Metoprolol Tartrate 100 mg 03/31/22 22:00 04/16/22 10:07 Metoprolol Tartrate 100 Mg Tab PO Not Given BID [facility] Morphine Sulfate 2 mg 03/31/22 13:31 04/16/22 10:37 Morphine 2 Mg/1 Ml Inj IV 2 mg Q4H PRN Administration Pain, Moderate (4-6) Morphine Sulfate 4 mg 03/31/22 13:31 Morphine 4 Mg/1 Ml Inj IV Q4H PRN Pain , Severe (7-10) Ondansetron HCl 4 mg 03/31/22 13:31 Ondansetron 4 Mg/2 Ml Inj IV Q8H PRN Nausea And Vomiting Pantoprazole Sodium 40 mg 04/08/22 17:00 04/16/22 08:00 Pantoprazole 40 Mg Tab PO 40 mg BIDDIAB FRANCESCA Administration Quetiapine Fumarate 50 mg 03/31/22 22:00 04/15/22 22:26 Quetiapine 25 Mg Tab PO 50 mg QHS FRANCESCA Administration Sodium Chloride 10 ml 03/31/22 22:00 04/16/22 10:12 Sodium Chloride 0.9% 10 Ml Flush Syringe IV 10 ml BID FRANCESCA Administration Tamsulosin HCl 0.4 mg 04/01/22 10:00 04/16/22 10:12 Tamsulosin 0.4 Mg Cap PO 0.4 mg QDAY FRANCESCA Administration
--- NOTE | 2022-04-16 14:41 | Progress Note ---
Assessment and Plan 1. Acute kidney injury: Vasomotor MARIE superimposed on CKD in the setting of sepsis/CHF/A.Fib with RVR. Renal US negative. Monitor renal function. Non-oliguric. Renal prognosis is guarded. Avoid nephrotoxic agents. Meds dosage based on GFR. 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 Patient started on hemodialysis due to worsening renal function, volume overload and associated hyperkalemia. Hemodialysis: 04/13, 04/14(UF only), 04/15. Unable to do HD today due to staffing unavailable. 2. FEN: Volume overload, UF with HD as tolerated. Hyperkalemia, improved, monitor. Hypernatremia, monitor. Hyperchloremic metabolic acidosis, improved, monitor. Replete lytes as needed. Monitor lytes and volume status. 3. A.fib with RVR: Amio and Metoprolol. Followed by Cards. Monitor. 4. Acute on chronic systolic congestive heart failure / Non-STEMI: LVEF 25 to 30%. Beta-blockers. Monitor. Followed by Cards. 5. HCAP / UTI / Sepsis: Followed by ID. 6. Acute metabolic encephalopathy, POA: H/o Dementia. Monitor. 7. Microcytic Anemia, POA: Heme positive stool. Trend. Seen by GI. 8. Bladder retention: Arteaga catheter removed. Follow bladder scan. Subjective: Patient was seen and examined at the bedside. Examination: General appearance: well-developed, appears stated age, no distress, on VM O2 HEENT: atraumatic, no icterus Neck: trachea midline Respiratory: decreased breath sounds Heart: S1S2, no murmur Abdomen: soft, bowel sounds heard, NT Integumentary: no obvious rash Neurologic: lethargic, not following any command Ext: UE edema Hemodialysis access: R IJ non-tunnel catheter Subjective Date of service: 04/16/22 Principal diagnosis: anemia Objective - Vital Signs Vital signs: Vital Signs - 12hr 04/16/22 04/16/22 04/16/22 02:51 06:20 08:46 Temperature 99.2 F 98 F Pulse Rate 115 H 99 H Pulse Rate [ 77 Anterior Bilateral Throughout] Respiratory 34 H 22 Rate Respiratory 23 Rate [Anterior Bilateral Throughout] Blood Pressure 93/50 107/61 [Right] O2 Sat by Pulse 99 99 Oximetry 04/16/22 04/16/22 08:47 12:00 Temperature 97.9 F Pulse Rate 76 Pulse Rate [ Anterior Bilateral Throughout] Respiratory 28 H Rate Respiratory Rate [Anterior Bilateral Throughout] Blood Pressure 104/57 [Right] O2 Sat by Pulse 95 99 Oximetry - Lab 04/16/22 04:55 04/16/22 04:55 Most recent lab results Calcium 8.4 mg/dL (8.4-10.2) 04/16/22 04:55 Phosphorus 3.90 mg/dL (2.5-4.5) 04/15/22 09:41 Magnesium 1.90 mg/dL (1.7-2.3) 04/15/22 09:41 Urine Creatinine 82.0 mg/dL (0.1-20.0) H 04/05/22 18:16 Urine Sodium 107 mmol/L 04/05/22 18:16 Medications & Allergies - Medications Allergies/Adverse Reactions: Allergies lisinopril Allergy (Verified 03/31/22 07:48) Hives Home Medications: Home Medications Medication Instructions Recorded Confirmed Last Taken Type Tamsulosin [Flomax] 0.4 mg PO QDAY #7 cap 08/28/15 04/08/22 Unknown Rx AtorvaSTATin [Lipitor] 40 mg PO QHS 03/11/22 04/08/22 Unknown History metHOTREXate sodium [Methotrexate] 15 mg PO 1XW 03/11/22 04/08/22 Unknown History predniSONE 10 mg PO BID 03/16/22 04/08/22 Unknown History Amiodarone [Cordarone 200 MG TAB] 200 mg PO BID tablet 03/23/22 04/08/22 Unknown Rx Apixaban [Eliquis] 5 mg PO Q12HR tablet 03/23/22 04/08/22 Unknown Rx Aspirin [Aspirin BABY CHEW TAB] 81 mg PO QDAY tab.chew 03/23/22 04/08/22 Unknown Rx Doxazosin [Cardura] 4 mg PO QDAY tablet 03/23/22 04/08/22 Unknown Rx Famotidine [Pepcid] 20 mg PO DAILY tablet 03/23/22 04/08/22 Unknown Rx Metoprolol [Lopressor TAB] 100 mg PO BID tablet 03/23/22 04/08/22 Unknown Rx Nicotine [Habitrol] 21 mg TD QDAY patch 03/23/22 04/08/22 Unknown Rx QUEtiapine [SEROquel] 50 mg PO QHS tablet 03/23/22 04/08/22 Unknown Rx amLODIPine 10 mg PO DAILY #30 tab 03/24/22 04/08/22 Unknown Rx Active Medications: Generic Name Dose Route Start Last Admin Trade Name Laneq PRN Reason Stop Dose Admin Acetaminophen 650 mg 03/31/22 13:31 04/15/22 22:25 Acetaminophen 325 Mg Tab PO 650 mg Q4H PRN Administration Pain MILD(1-3)/Fever >100.5/HILTON Albuterol 2.5 mg 04/12/22 08:00 04/16/22 08:42 Albuterol 2.5 Mg/3 Ml Nebu IH 2.5 mg TIDRT FRANCESCA Administration Amiodarone HCl 200 mg 03/31/22 22:00 04/16/22 10:12 Amiodarone 200 Mg Tab PO 200 mg BID FRANCESCA Administration Aspirin 81 mg 04/01/22 10:00 04/16/22 10:12 Aspirin 81 Mg Tab Chew PO 81 mg QDAY FRANCESCA Administration Atorvastatin Calcium 40 mg 03/31/22 22:00 04/15/22 22:26 Atorvastatin 40 Mg Tab PO 40 mg QHS FRANCESCA Administration Dextrose 25 ml 04/15/22 00:04 Dextrose 50% In Water (25gm) 50 Ml Syringe IV Q30MIN PRN Hypoglycemia Protocol Epoetin Gordon-epbx 20,000 unit 04/14/22 15:00 Epoetin Gordon-Epbx 10,000 Unit/1 Ml Vial SUB-Q CORINNE PRN hemodialysis Folic Acid 1 mg 04/08/22 10:00 04/16/22 10:11 Folic Acid 1 Mg Tab PO 1 mg DAILY FRANCESCA Administration Heparin Sodium (Porcine) 3,000 unit 04/13/22 10:24 Heparin 10,000 Units/10 Ml Vial IV CORINNE PRN hemodialysis Sodium Chloride 100 mls @ 999 mls/hr 04/13/22 10:24 Nacl 0.9% IV CORINNE PRN Hypotension Metoprolol Tartrate 100 mg 03/31/22 22:00 04/16/22 10:07 Metoprolol Tartrate 100 Mg Tab PO Not Given BID FRANCESCA Morphine Sulfate 2 mg 03/31/22 13:31 04/16/22 10:37 Morphine 2 Mg/1 Ml Inj IV 2 mg Q4H PRN Administration Pain, Moderate (4-6) Morphine Sulfate 4 mg 03/31/22 13:31 Morphine 4 Mg/1 Ml Inj IV Q4H PRN Pain , Severe (7-10) Ondansetron HCl 4 mg 03/31/22 13:31 Ondansetron 4 Mg/2 Ml Inj IV Q8H PRN Nausea And Vomiting Pantoprazole Sodium 40 mg 04/08/22 17:00 04/16/22 08:00 Pantoprazole 40 Mg Tab PO 40 mg BIDDIAB FRANCESCA Administration Quetiapine Fumarate 50 mg 03/31/22 22:00 04/15/22 22:26 Quetiapine 25 Mg Tab PO 50 mg QHS FRANCESCA Administration Sodium Chloride 10 ml 03/31/22 22:00 04/16/22 10:12 Sodium Chloride 0.9% 10 Ml Flush Syringe IV 10 ml BID FRANCESCA Administration Tamsulosin HCl 0.4 mg 04/01/22 10:00 04/16/22 10:12 Tamsulosin 0.4 Mg Cap PO 0.4 mg QDAY FRANCESCA Administration
--- NOTE | 2022-04-16 15:22 | Progress Note ---
Assessment and Plan Assessment and plan: he patient is a 67-year-old male with CAD, CKD, atrial fibrillation, vascular dementia was admitted to the hospital on 03/31/2022 with complaints of fever and shortness of breath of 3 days. Upon evaluation in the ED, T-max of 102.8 F. Also with atrial fibrillation with rapid ventricular rate, leukocytosis. Admitted due to concerns for sepsis from pneumonia. Was started on empiric antibiotics. Urine culture growing VRE.. Echo showed EF of 25 to 30%, cardiology following. Initial chest x-ray on 03/31/2022 showed left upper lobe pneumonia. Interval improvement noted on chest x-ray from 04/03/2022. Hospital course: 04/01/2020; patient is febrile, mild distress, on Vanco and cefepime, follow cultures 04/02; patient's hemoglobin dropped to 6.8, 1 unit PRBC transfusion, Eliquis held, follow stool guaiac Cardiology recommendations noted and appreciated 04/03; received 1 unit PRBC yesterday, Hb today 7.2, closely monitor 04/04; patient completed 5 days of Vanco and cefepime for HCAP Urine cultures positive for VRE, add Zyvox 600 mg IV every 12 Contact isolation, ID consulted 04/05: Final ID no antibiotic treatment necessary for VRE as that could be coloni zation. Continue to monitor for renal function improvement. Plan for colonoscopy on . Continue to monitor H&H. 04/06: Continue to follow serum creatinine, plan for colonoscopy tomorrow. F ollow H&H. Patient also needs placement 04/07: Planned for colonoscopy but patient could not complete bowel prep due to underlying dementia and metabolic encephalopathy Continue supportive care, continue to monitor H&H. Pending placement. Continue to follow renal function. Creatinine 3.2 today with sodium 148. Off Lasix. Repeat BMP tomorrow. 04/08; sodium and creatinine level further increased today. We will start on low volume D5 W. Repeat BMP in the morning, follow urine output. Discussed plan of care with nephrology. Guarded prognosis. 04/09: Patient spiked temp 100.1 yesterday but afebrile now. Continue to follow clinically. Monitor off antibiotics. If continues to spike fever then need to do reculture. Continue low volume D5W, monitor serum creatinine and sodium level. 04/10: -Remains with 101 fever on Monday night, low-grade fever yesterday repeat blood, urine and check CXR and then restart IV Cefepime 1 gm daily + Linezolid 600 mg BID. Monitor renal function. Creatinine level increasing. Renal prognosis is guarded. 04/11: ID restarted cefepime and Zyvox yesterday. Creatinine appears to be worsening but no labs today. Recheck BMP. Etiology appears to be secondary to vasomotor MARIE superimposed on CKD in the setting of sepsis/CHF/A. fib with RVR. Renal ultrasound negative. Continue amiodarone and metoprolol for rate control with A. fib. Continue diuresis with Lasix. No NATALYA inhibitor due to renal insufficiency. 04/12/2022: Continue with antibiotics (cefepime and Zosyn). Continue holding NATALYA inhibitor's/ARB's given patient's worsening renal function. Continue diuresis. Nephrology spoke with the patient's son about the possibility of hemodialysis given the patient's worsening renal function (Creatinine 2.0--> 2.3--> 2.9--> 3.2--> 4.1--> 5.3--> 5.8). Pending repeat BMP given patient's persistent hyperkalemia requiring medical management. Assessment and plan: #MARIE on chronic kidney disease stage III secondary to vasomotor nephropathy Nephrology consulted; appreciate recs. Renally dose meds and avoid nephrotoxic drugs. Continue holding NATALYA inhibitor/ARB's. Continue IV diuresis in the setting of patient being volume overloaded. Vascular surgery consulted for placement of Vas-Cath in order for patient to undergo hemodialysis. Patient initiated on hemodialysis on 04/13/2022. Continue hemodialysis #Hospital-acquired pneumonia #Acute hypoxic respiratory failure - etiology: Secondary to hospital-acquired pneumonia - baseline oxygen requirements: Room air - supplemental oxygen: 8 L nasal cannula Unremarkable blood cultures to date. Continue cefepime and Zosyn (restarted on 04/11/2022). - Continue protocol: continue pulse oximetry, wean oxygen as tolerated, ordered incentive spirometry and educated patient on how to use it and its importance. - continue to monitor #VRE UTI (present on admission) #Sepsis secondary to VRE UTI #Acute metabolic encephalopathy Continue contact isolation Continue Zosyn and cefepime (renally dosed). Infectious disease consulted; appreciate recs #Hyperkalemiaresolved #Hypokalemia Potassium 5.4. Pending repeat BMP Initiating medical management (Kayexalate) #Hypernatremiaresolved #Hyponatremia - potassium 3.5. Repleting. Monitor with BMP. #Microcytic anemia #Chronic lower GI bleed Hemoglobin 6.6; transfusing 1 unit packed RBC. Holding patient's Eliquis given anemia. Gastroenterology consulted; appreciate recs. Colonoscopy initially planned for ; however patient unable to undergo colonoscopy due to incomplete bowel prep and worsening metabolic encephalopathy. Transfuse if hemoglobin <or patient becomes symptomatic. #A. fib with rapid ventricular rate; rate controlled Continue amiodarone, metoprolol Cardiology consulted; appreciate recs. Eliquis currently being held given anemia. #Acute on chronic systolic heart failure LVEF 25 to 30%. Continue diuresis and beta-blockade. Continue holding NATALYA inhibitor and ARB in the setting of MARIE Cardiology consulted; appreciate recs #Non-ST elevation PR (type II) Likely secondary to MARIE on CKD stage III No current intervention at this time. #Moderate protein calorie malnutrition Albumin 2.8 Nutrition supplements, supportive care Nutrition consulted #Tobacco dependence #Tobacco/Smoking cessation counseling - Counseled patient about the importance of smoking cessation and the possible sequelae as a result of continued tobacco consumption. The patient expresses understanding. -Time: +15 mins #Immunocompromised host Seems to be on methotrexate and prednisone as per his home medications. Unclear indication. If neutropenia worsens, methotrexate will be discontinued. Critical Care Billing: The high probability of a clinically significant, sudden or life threatening deterioration of the [renal] system(s) required my full and direct attention, intervention and personal management. The aggregate critical care time was [60] minutes. This time is in addition to time spent performing reported procedures but includes the following: [x] Data Review and interpretation [x] Patient assessment and monitoring of vital signs [x] Documentation [x] Medication orders and management Disposition Plan: Continue medical management Total Time Spent with Patient (Minutes): 45 min History Interval history: No acute events overnight. Hospitalist Physical - Constitutional Vitals: Temp Pulse Resp BP Pulse Ox 97.9 F 76 28 H 104/57 99 04/16/22 12:00 04/16/22 12:04/16/22 12:04/16/22 12:00 04/16/22 12:00 General appearance: Present: no acute distress, well-nourished, other (Patient on a Ventimask) - EENT Eyes: Present: PERRL, EOM intact ENT: hearing intact, clear oral mucosa, dentition normal, other (NGT in place) - Neck Neck: Present: supple, normal ROM, other (Vascath in upper R chest) - Respiratory Respiratory effort: normal Respiratory: bilateral: rhonchi (on 9L venturi mask) - Cardiovascular Rhythm: regular Heart Sounds: Present: S1 & S2 - Extremities Extremities: no ischemia, pulses intact, pulses symmetrical, No edema, normal temperature, normal color Peripheral Pulses: within normal limits - Abdominal General gastrointestinal: soft, non-tender, non-distended, normal bowel sounds - Integumentary Integumentary: Present: clear, warm, dry - Psychiatric Psychiatric: cooperative - Neurologic Neurologic: CNII-XII intact - Allied Health Allied health notes reviewed: nursing HEART Score - HEART Score Troponin: Troponin T 0.135 ng/mL (0.00-0.029) H* 04/03/22 12:29 Results - Labs CBC & Chem 7: 04/16/22 04:55 04/16/22 04:55 Labs: Laboratory Last Values WBC 7.3 K/mm3 (4.5-11.0) 04/16/22 04:55 RBC 3.02 M/mm3 (3.65-5.03) L 04/16/22 04:55 Hgb 7.9 gm/dl (11.8-15.2) L 04/16/22 04:55 Hct 24.2 % (35.5-45.6) L 04/16/22 04:55 MCV 80 fl (84-94) L 04/16/22 04:55 MCH 26 pg (28-32) L 04/16/22 04:55 MCHC 33 % (32-34) 04/16/22 04:55 RDW 19.9 % (13.2-15.2) H 04/16/22 04:55 Plt Count 128 K/mm3 (140-440) L 04/16/22 04:55 Lymph % (Auto) 11.1 % (13.4-35.0) L 04/16/22 04:55 [place] % (Auto) 2.2 % (0.0-7.3) 04/16/22 04:55 Eos % (Auto) 1.7 % (0.0-4.3) 04/16/22 04:55 Baso % (Auto) 0.2 % (0.0-1.8) 04/16/22 04:55 Lymph # (Auto) 0.8 K/mm3 (1.2-5.4) L 04/16/22 04:55 [place] # (Auto) 0.2 K/mm3 (0.0-0.8) 04/16/22 04:55 Eos # (Auto) 0.1 K/mm3 (0.0-0.4) 04/16/22 04:55 Baso # (Auto) 0.0 K/mm3 (0.0-0.1) 04/16/22 04:55 Add Manual Diff Complete 04/14/22 04:50 Total Counted 100 04/14/22 04:50 Seg Neutrophils % 84.8 % (40.0-70.0) H 04/16/22 04:55 Seg Neuts % (Manual) 73.0 % (40.0-70.0) H 04/14/22 04:50 Band Neutrophils % 0 % 04/14/22 04:50 Lymphocytes % (Manual) 19.0 % (13.4-35.0) 04/14/22 04:50 Reactive Lymphs % (Man) 0 % 04/14/22 04:50 Monocytes % (Manual) 3.0 % (0.0-7.3) 04/14/22 04:50 Eosinophils % (Manual) 5.0 % (0.0-4.3) H 04/14/22 04:50 Basophils % (Manual) 0 % (0.0-1.8) 04/14/22 04:50 Metamyelocytes % 0 % 04/14/22 04:50 Myelocytes % 0 % 04/14/22 04:50 Promyelocytes % 0 % 04/14/22 04:50 Blast Cells % 0 % 04/14/22 04:50 Nucleated RBC % Not Reportable 04/14/22 04:50 Seg Neutrophils # 6.2 K/mm3 (1.8-7.7) 04/16/22 04:55 Seg Neutrophils # Man 2.6 K/mm3 (1.8-7.7) 04/14/22 04:50 Band Neutrophils # 0.0 K/mm3 04/14/22 04:50 Lymphocytes # (Manual) 0.7 K/mm3 (1.2-5.4) L 04/14/22 04:50 Abs React Lymphs (Man) 0.0 K/mm3 04/14/22 04:50 Monocytes # (Manual) 0.1 K/mm3 (0.0-0.8) 04/14/22 04:50 Eosinophils # (Manual) 0.2 K/mm3 (0.0-0.4) 04/14/22 04:50 Basophils # (Manual) 0.0 K/mm3 (0.0-0.1) 04/14/22 04:50 Metamyelocytes # 0.0 K/mm3 04/14/22 04:50 Myelocytes # 0.0 K/mm3 04/14/22 04:50 Promyelocytes # 0.0 K/mm3 04/14/22 04:50 Blast Cells # 0.0 K/mm3 04/14/22 04:50 WBC Morphology Not Reportable 04/14/22 04:50 Hypersegmented Neuts Not Reportable 04/14/22 04:50 Hyposegmented Neuts Not Reportable 04/14/22 04:50 Hypogranular Neuts Not Reportable 04/14/22 04:50 Smudge Cells Not Reportable 04/14/22 04:50 Toxic Granulation Not Reportable 04/14/22 04:50 Toxic Vacuolation Not Reportable 04/14/22 04:50 Dohle Bodies Not Reportable 04/14/22 04:50 Pelger-Huet Anomaly Not Reportable 04/14/22 04:50 Marylin Rods Not Reportable 04/14/22 04:50 Platelet Estimate Consistent w auto 04/14/22 04:50 Clumped Platelets Not Reportable 04/14/22 04:50 Plt Clumps, EDTA Not Reportable 04/14/22 04:50 Large Platelets Not Reportable 04/14/22 04:50 Giant Platelets Not Reportable 04/14/22 04:50 Platelet Satelliting Not Reportable 04/14/22 04:50 Plt Morphology Comment Not Reportable 04/14/22 04:50 RBC Morphology Not Reportable 04/14/22 04:50 Dimorphic RBCs Not Reportable 04/14/22 04:50 Polychromasia Not Reportable 04/14/22 04:50 Hypochromasia 1+ 04/14/22 04:50 Poikilocytosis Not Reportable 04/14/22 04:50 Anisocytosis 1+ 04/14/22 04:50 Microcytosis Not Reportable 04/14/22 04:50 Macrocytosis Not Reportable 04/14/22 04:50 Spherocytes Not Reportable 04/14/22 04:50 Pappenheimer Bodies Not Reportable 04/14/22 04:50 Sickle Cells Not Reportable 04/14/22 04:50 Target Cells Not Reportable 04/14/22 04:50 Tear Drop Cells Not Reportable 04/14/22 04:50 Ovalocytes Not Reportable 04/14/22 04:50 Helmet Cells Not Reportable 04/14/22 04:50 Alvarez-[place] Bodies Not Reportable 04/14/22 04:50 Hunt Rings Not Reportable 04/14/22 04:50 [place] Cells Not Reportable 04/14/22 04:50 Bite Cells Not Reportable 04/14/22 04:50 Crenated Cell Not Reportable 04/14/22 04:50 Elliptocytes Not Reportable 04/14/22 04:50 Acanthocytes (Spur) Not Reportable 04/14/22 04:50 Rouleaux Not Reportable 04/14/22 04:50 Hemoglobin C Crystals Not Reportable 04/14/22 04:50 Schistocytes Not Reportable 04/14/22 04:50 Malaria parasites Not Reportable 04/14/22 04:50 Cristino Bodies Not Reportable 04/14/22 04:50 Hem Pathologist Commnt No 04/14/22 04:50 Sodium 138 mmol/L (137-145) 04/16/22 04:55 Potassium 3.9 mmol/L (3.6-5.0) 04/16/22 04:55 Chloride 99.5 mmol/L (98-107) 04/16/22 04:55 Carbon Dioxide 27 mmol/L (22-30) 04/16/22 04:55 Anion Gap 15 mmol/L 04/16/22 04:55 BUN 27 mg/dL (9-20) H 04/16/22 04:55 Creatinine 4.3 mg/dL (0.8-1.3) H 04/16/22 04:55 Estimated GFR 17 ml/min 04/16/22 04:55 BUN/Creatinine Ratio 6 % 04/16/22 04:55 Glucose 126 mg/dL (75-100) H 04/16/22 04:55 POC Glucose 103 mg/dL (70-105) 04/16/22 11:48 Lactic Acid 1.20 mmol/L (0.7-2.0) 03/31/22 08:00 Calcium 8.4 mg/dL (8.4-10.2) 04/16/22 04:55 Phosphorus 3.90 mg/dL (2.5-4.5) 04/15/22 09:41 Magnesium 1.90 mg/dL (1.7-2.3) 04/15/22 09:41 Total Bilirubin 0.50 mg/dL (0.1-1.2) 04/05/22 05:06 AST 9 units/L (5-40) 04/05/22 05:06 ALT 7 units/L (7-56) 04/05/22 05:06 Alkaline Phosphatase 80 units/L (35-129) 04/05/22 05:06 Total Creatine Kinase 55 units/L (55-170) 03/31/22 08:00 Troponin T 0.135 ng/mL (0.00-0.029) H* 04/03/22 12:29 NT-Pro-B Natriuret Pep 39592 pg/mL (0-900) H 03/31/22 08:00 Total Protein 5.8 g/dL (6.3-8.2) L 04/05/22 05:06 Albumin 2.0 g/dL (3.9-5) L 04/05/22 05:06 Albumin/Globulin Ratio 0.5 % 04/05/22 05:06 Triglycerides 76 mg/dL (2-149) 03/31/22 08:00 Cholesterol 109 mg/dL (50-199) 03/31/22 08:00 LDL Cholesterol Direct 55 mg/dL (50-130) 03/31/22 08:00 HDL Cholesterol 38 mg/dL (40-59) L 03/31/22 08:00 Cholesterol/HDL Ratio 2.86 % 03/31/22 08:00 Procalcitonin 0.36 ng/mL (<0.15) 03/31/22 08:00 Urine Color Yellow (Yellow) 04/10/22 17:00 Urine Turbidity Slightly cloudy (Clear) 04/10/22 17:00 Specific [place] (Man) 1.010 (1.003-1.030) 04/10/22 17:00 Ur Protein (Man) 2+ mg/dL (Negative) 04/10/22 17:00 Ur Ketones (Man) Negative (Negative) 04/10/22 17:00 Ur Nitrite (Man) Negative (Negative) 04/10/22 17:00 Ur Reducing Substances Not Reportable 04/10/22 17:00 Urine Bilirubin (Man) Negative (Negative) 04/10/22 17:00 Urine Ictotest Not Reportable 04/10/22 17:00 Leukocyte Esterase (Man) Negative (Negative) 04/10/22 17:00 Urine WBC (Auto) 2.0 /HPF (0.0-6.0) 04/10/22 17:00 Urine RBC (Auto) 4.0 /HPF (0.0-6.0) 04/10/22 17:00 Urine Bacteria (Auto) 2+ /HPF (Negative) 04/10/22 17:00 Urine RBC (Manual) 3+ (Negative) 04/10/22 17:00 Granular Casts 6 /LPF 04/01/22 05:20 RBC Casts 7 /LPF 04/01/22 05:20 Urine Yeast (Budding) 3+ /HPF 04/10/22 17:00 Urine Creatinine 82.0 mg/dL (0.1-20.0) H 04/05/22 18:16 Urine Sodium 107 mmol/L 04/05/22 18:16 Random Vancomycin 18.2 ug/mL (0-40.0) 04/06/22 05:46 SARS-CoV-2 (PCR) Negative (Negative) 04/08/22 09:45 Hepatitis A IgM Ab Non-reactive (NonReactive) 04/13/22 14:19 Hep Bs Antigen Non-reactive (Negative) 04/13/22 14:19 Hep B Core IgM Ab Non-reactive (NonReactive) 04/13/22 14:19 Hepatitis C Antibody Non-reactive (NonReactive) 04/13/22 14:19 Blood Type O POSITIVE 04/14/22 08:44 Antibody Screen Negative 04/14/22 08:44 Crossmatch See Detail 04/14/22 08:44 Microbiology: Microbiology 04/10/22 11:19 Peripheral/Venous Blood Culture - Final NO GROWTH AFTER 5 DAYS 04/10/22 09:58 Peripheral/Venous Blood Culture - Final NO GROWTH AFTER 5 DAYS Arteaga/IV: Voiding Method Condom Catheter Active Medications - Current Medications Current Medications: Generic Name Dose Route Start Last Admin Trade Name Freq PRN Reason Stop Dose Admin Acetaminophen 650 mg 03/31/22 13:31 04/15/22 22:25 Acetaminophen 325 Mg Tab PO 650 mg Q4H PRN Administration Pain MILD(1-3)/Fever >100.5/[place] Albuterol 2.5 mg 04/12/22 08:00 04/16/22 08:42 Albuterol 2.5 Mg/3 Ml Nebu IH 2.5 mg TIDRT FRANCESCA Administration Amiodarone HCl 200 mg 03/31/22 22:00 04/16/22 10:12 Amiodarone 200 Mg Tab PO 200 mg BID FRANCESCA Administration Aspirin 81 mg 04/01/22 10:00 04/16/22 10:12 Aspirin 81 Mg Tab Chew PO 81 mg QDAY FRANCESCA Administration Atorvastatin Calcium 40 mg 03/31/22 22:00 04/15/22 22:26 Atorvastatin 40 Mg Tab PO 40 mg QHS FRANCESCA Administration Dextrose 25 ml 04/15/22 00:04 Dextrose 50% In Water (25gm) 50 Ml Syringe IV Q30MIN PRN Hypoglycemia Protocol Epoetin Gordon-epbx 20,000 unit 04/14/22 15:00 Epoetin Gordon-Epbx 10,000 Unit/1 Ml Vial SUB-Q CORINNE PRN hemodialysis Folic Acid 1 mg 04/08/22 10:00 04/16/22 10:11 Folic Acid 1 Mg Tab PO 1 mg DAILY FRANCESCA Administration Heparin Sodium (Porcine) 3,000 unit 04/13/22 10:24 Heparin 10,000 Units/10 Ml Vial IV CORINNE PRN hemodialysis Sodium Chloride 100 mls @ 999 mls/hr 04/13/22 10:24 Nacl 0.9% IV CORINNE PRN Hypotension Metoprolol Tartrate 100 mg 03/31/22 22:00 04/16/22 10:07 Metoprolol Tartrate 100 Mg Tab PO Not Given BID FRANCESCA Morphine Sulfate 2 mg 03/31/22 13:31 04/16/22 10:37 Morphine 2 Mg/1 Ml Inj IV 2 mg Q4H PRN Administration Pain, Moderate (4-6) Morphine Sulfate 4 mg 03/31/22 13:31 Morphine 4 Mg/1 Ml Inj IV Q4H PRN Pain , Severe (7-10) Ondansetron HCl 4 mg 03/31/22 13:31 Ondansetron 4 Mg/2 Ml Inj IV Q8H PRN Nausea And Vomiting Pantoprazole Sodium 40 mg 04/08/22 17:00 04/16/22 08:00 Pantoprazole 40 Mg Tab PO 40 mg BIDDIAB FRANCESCA Administration Quetiapine Fumarate 50 mg 03/31/22 22:00 04/15/22 22:26 Quetiapine 25 Mg Tab PO 50 mg QHS FRANCESCA Administration Sodium Chloride 10 ml 03/31/22 22:00 04/16/22 10:12 Sodium Chloride 0.9% 10 Ml Flush Syringe IV 10 ml BID FRANCESCA Administration Tamsulosin HCl 0.4 mg 04/01/22 10:00 04/16/22 10:12 Tamsulosin 0.4 Mg Cap PO 0.4 mg QDAY FRANCESCA Administration Nutrition/Malnutrition Assess - Dietary Evaluation Nutrition/Malnutrition Findings: Nutrition Notes Start: 04/01/22 10:53 Freq: Status: Active Protocol: Document 04/15/22 12:27 SIM (Rec: 04/15/22 12:39 SIM [email or web address]) Nutrition Notes Initial or Follow up Reassessment Current Diagnosis Acute Kidney Injury,Sepsis, Heart Failure,Respiratory Failure Other Pertinent Diagnosis Pneu, UTI, acute metabolic encephalopathy, anemia Current Diet TF - Nepro at 45ml/hr Labs/Tests Na 136 K 3.5 BUN 45 Cr 6.1 Pertinent Medications 40mEq KCl Height 5 ft 9 in Weight 77 kg [place] Body Weight (kg) 72.72 BMI 25.0 Weight Status Appropriate Subjective/Other Information Pt tolerating TF at goal rate. Per [employer] evaluation on 04/14, PEG tube recommended. HD initiated on 04/13. New stage 2 sacral wound and (L) posterior buttocks wound reported 04/13. Percent of energy/protein needs met: 105% energy 95% pro Burn Absent Trauma Absent #2 Nutrition Diagnosis Altered nutrition-related laboratory values Diagnosis Progress(for reassessment Continues documentation) #1 Nutrition Diagnosis Inadequate oral intake Diagnosis Progress(for reassessment Continues documentation) Is patient on ventilator? No Is Patient Ambulatory and/or Out of Bed No REE-([facility]-confined to bed) 1121.865 Calculation Used for Recommendations [facility] Additional Notes Pro needs >1.2g/kg: >92g/day Fluid needs 1-1.5L/day Nutrition Intervention Nutrition Support: Continue Nepro at 45ml/hr with 200ml water flush q4h. Kcal 1,944 Protein (gm) 87 Carbohydrates (gm) 174 Fat (gm) 104 Fluid (mL) 785 Fiber (gm) 14 Goal #1 TF tolerance Goal #2 TF to provide at least 75% energy and pro needs Follow-Up By: 04/22/22 Additional Comments F/U: stable TF, wt
[2022-04-16] MEDS: QUEtiapine 25 MG TAB PO SCH (22:10)
[2022-04-17] MEDS: AMIODARONE 200 MG TAB PO SCH ×3 (06:28→21:50)
[2022-04-17 07:01] LABS: Hematocrit 27.5 % (35.5-45.6); Hemoglobin 8.6 gm/dl (11.8-15.2); Mean Corpuscular HGB Conc 31 % (32-34); Mean Corpuscular Volume 82 fl (84-94); Platelet Count 121 K/mm3 (140-440); Red Blood Count 3.37 M/mm3 (3.65-5.03)
[2022-04-17 07:17] LABS: Red Cell Distribution Width 20.4 % (13.2-15.2)
[2022-04-17 07:24] LABS: Calcium 8.9 mg/dL (8.4-10.2)
[2022-04-17] MEDS: PANTOPRAZOLE 40 MG TAB PO SCH ×2 (08:00→16:41)
[2022-04-17] MEDS: ALBUTEROL 2.5 MG/3 ML NEBU IH SCH ×3 (08:50→21:04)
[2022-04-17 08:59] LABS: Anisocytosis 1+; Basophils % (Manual) 0 % (0.0-1.8); Hypochromasia 1+; Monocytes % (Manual) 0 % (0.0-7.3); Target Cells Few; Total Cells Counted 100
[2022-04-17 09:00] LABS: Large Platelets Rare; Platelet Estimate Consistent w Auto
--- NOTE | 2022-04-17 09:10 | Progress Note ---
Assessment and Plan 1. Acute kidney injury: Vasomotor MARIE superimposed on CKD in the setting of sepsis/CHF/A.Fib with RVR. Renal US negative. Monitor renal function. Non-oliguric. Renal prognosis is guarded. Avoid nephrotoxic agents. Meds dosage based on GFR. Monitor for [employer]ER needs. Patient started on hemodialysis due to worsening renal function, volume overload and associated hyperkalemia. Hemodialysis: 04/13, 04/14(UF only), 04/15. 2. FEN: Volume overload, UF with HD as tolerated. Hyperkalemia, improved, monitor. Hypernatremia, monitor. Hyperchloremic metabolic acidosis, improved, monitor. Replete lytes as needed. Monitor lytes and volume status. 3. A.fib with RVR: Amio and Metoprolol. Followed by Cards. Monitor. 4. Acute on chronic systolic congestive heart failure / Non-STEMI: LVEF 25 to 30%. Beta-blockers. Monitor. Followed by Cards. 5. HCAP / UTI / Sepsis: Followed by ID. 6. Acute metabolic encephalopathy, POA: H/o Dementia. Monitor. 7. Microcytic Anemia, POA: Heme positive stool. Trend. Seen by GI. 8. Bladder retention: Follow bladder scan. Subjective: Patient was seen and examined at the bedside. Examination: General appearance: well-developed, appears stated age, no distress, on VM O2 HEENT: atraumatic, no icterus Neck: trachea midline Respiratory: decreased breath sounds Heart: S1S2, no murmur Abdomen: soft, bowel sounds heard, NT Integumentary: no obvious rash Neurologic: lethargic, not following any command Ext: UE edema Hemodialysis access: R IJ non-tunnel catheter Subjective Date of service: 04/17/22 Principal diagnosis: anemia Objective - Vital Signs Vital signs: Vital Signs - 12hr 04/16/22 22:00 O2 Sat by Pulse 95 Oximetry - Lab 04/18/22 15:30 04/18/22 Unknown Most recent lab results Calcium 8.9 mg/dL (8.4-10.2) 04/17/22 06:03 Phosphorus 3.90 mg/dL (2.5-4.5) 04/15/22 09:41 Magnesium 1.90 mg/dL (1.7-2.3) 04/15/22 09:41 Urine Creatinine 82.0 mg/dL (0.1-20.0) H 04/05/22 18:16 Urine Sodium 107 mmol/L 04/05/22 18:16 Medications & Allergies - Medications Allergies/Adverse Reactions: Allergies lisinopril Allergy (Verified 03/31/22 07:48) Hives Home Medications: Home Medications Medication Instructions Recorded Confirmed Last Taken Type Tamsulosin [Flomax] 0.4 mg PO QDAY #7 cap 08/28/15 04/08/22 Unknown Rx AtorvaSTATin [Lipitor] 40 mg PO QHS 03/11/22 04/08/22 Unknown History metHOTREXate sodium [Methotrexate] 15 mg PO 1XW 03/11/22 04/08/22 Unknown History predniSONE 10 mg PO BID 03/16/22 04/08/22 Unknown History Amiodarone [Cordarone 200 MG TAB] 200 mg PO BID tablet 03/23/22 04/08/22 Unknown Rx Apixaban [Eliquis] 5 mg PO Q12HR tablet 03/23/22 04/08/22 Unknown Rx Aspirin [Aspirin BABY CHEW TAB] 81 mg PO QDAY tab.chew 03/23/22 04/08/22 Unknown Rx Doxazosin [Cardura] 4 mg PO QDAY tablet 03/23/22 04/08/22 Unknown Rx Famotidine [Pepcid] 20 mg PO DAILY tablet 03/23/22 04/08/22 Unknown Rx Metoprolol [Lopressor TAB] 100 mg PO BID tablet 03/23/22 04/08/22 Unknown Rx Nicotine [Habitrol] 21 mg TD QDAY patch 03/23/22 04/08/22 Unknown Rx QUEtiapine [SEROquel] 50 mg PO QHS tablet 03/23/22 04/08/22 Unknown Rx amLODIPine 10 mg PO DAILY #30 tab 03/24/22 04/08/22 Unknown Rx Active Medications: Generic Name Dose Route Start Last Admin Trade Name Freq PRN Reason Stop Dose Admin Acetaminophen 650 mg 03/31/22 13:31 04/15/22 22:25 Acetaminophen 325 Mg Tab PO 650 mg Q4H PRN Administration Pain MILD(1-3)/Fever >100.5/[place] Albuterol 2.5 mg 04/12/22 08:00 04/17/22 08:50 Albuterol 2.5 Mg/3 Ml Nebu IH 2.5 mg TIDRT FRANCESCA Administration Amiodarone HCl 200 mg 03/31/22 22:00 04/17/22 06:28 Amiodarone 200 Mg Tab PO Not Given BID [facility] Aspirin 81 mg 04/01/22 10:00 04/16/22 10:12 Aspirin 81 Mg Tab Chew PO 81 mg QDAY FRANCESCA Administration Atorvastatin Calcium 40 mg 03/31/22 22:00 04/16/22 22:10 Atorvastatin 40 Mg Tab PO 40 mg QHS FRANCESCA Administration Dextrose 25 ml 04/15/22 00:04 Dextrose 50% In Water (25gm) 50 Ml Syringe IV Q30MIN PRN Hypoglycemia Protocol Epoetin Gordon-epbx 20,000 unit 04/14/22 15:00 Epoetin Gordon-Epbx 10,000 Unit/1 Ml Vial SUB-Q CORINNE PRN hemodialysis Folic Acid 1 mg 04/08/22 10:00 04/16/22 10:11 Folic Acid 1 Mg Tab PO 1 mg DAILY FRANCESCA Administration Heparin Sodium (Porcine) 3,000 unit 04/13/22 10:24 Heparin 10,000 Units/10 Ml Vial IV CORINNE PRN hemodialysis Sodium Chloride 100 mls @ 999 mls/hr 04/13/22 10:24 Nacl 0.9% IV CORINNE PRN Hypotension Metoprolol Tartrate 100 mg 03/31/22 22:00 04/16/22 22:00 Metoprolol Tartrate 100 Mg Tab PO Not Given BID [facility] Morphine Sulfate 2 mg 03/31/22 13:31 04/16/22 10:37 Morphine 2 Mg/1 Ml Inj IV 2 mg Q4H PRN Administration Pain, Moderate (4-6) Morphine Sulfate 4 mg 03/31/22 13:31 Morphine 4 Mg/1 Ml Inj IV Q4H PRN Pain , Severe (7-10) Ondansetron HCl 4 mg 03/31/22 13:31 Ondansetron 4 Mg/2 Ml Inj IV Q8H PRN Nausea And Vomiting Pantoprazole Sodium 40 mg 04/08/22 17:00 04/16/22 17:54 Pantoprazole 40 Mg Tab PO 40 mg BIDDIAB FRANCESCA Administration Quetiapine Fumarate 50 mg 03/31/22 22:00 04/16/22 22:10 Quetiapine 25 Mg Tab PO 50 mg QHS FRANCESCA Administration Sodium Chloride 10 ml 03/31/22 22:00 04/16/22 22:10 Sodium Chloride 0.9% 10 Ml Flush Syringe IV 10 ml BID FRANCESCA Administration Tamsulosin HCl 0.4 mg 04/01/22 10:00 04/16/22 10:12 Tamsulosin 0.4 Mg Cap PO 0.4 mg QDAY FRANCESCA Administration
[2022-04-17] MEDS: METOPROLOL TARTRATE 100 MG TAB PO SCH ×2 (09:37→21:50)
[2022-04-17] MEDS: ASPIRIN 81 MG TAB CHEW PO SCH (09:40)
[2022-04-17] MEDS: TAMSULOSIN 0.4 MG CAP PO SCH (09:41)
[2022-04-17] MEDS: FOLIC ACID 1 MG TAB PO SCH (09:41)
--- NOTE | 2022-04-17 13:06 | Progress Note ---
Assessment and Plan Assessment and plan: The patient is a 67-year-old male with CAD, CKD, atrial fibrillation, vascular dementia was admitted to the hospital on 03/31/2022 with complaints of fever and shortness of breath of 3 days. Upon evaluation in the ED, T-max of 102.8 F. Also with atrial fibrillation with rapid ventricular rate, leukocytosis. Admitted due to concerns for sepsis from pneumonia. Was started on empiric antibiotics. Urine culture growing VRE.. Echo showed EF of 25 to 30%, cardiology following. Initial chest x-ray on 03/31/2022 showed left upper lobe pneumonia. Interval improvement noted on chest x-ray from 04/03/2022. Hospital course: 04/01/2020; patient is febrile, mild distress, on Vanco and cefepime, follow cultures 04/02; patient's hemoglobin dropped to 6.8, 1 unit PRBC transfusion, Eliquis held, follow stool guaiac Cardiology recommendations noted and appreciated 04/03; received 1 unit PRBC yesterday, Hb today 7.2, closely monitor 04/04; patient completed 5 days of Vanco and cefepime for HCAP Urine cultures positive for VRE, add Zyvox 600 mg IV every 12 Contact isolation, ID consulted 04/05: Final ID no antibiotic treatment necessary for VRE as that could be colon ization. Continue to monitor for renal function improvement. Plan for colonoscopy on . Continue to monitor H&H. 04/06: Continue to follow serum creatinine, plan for colonoscopy tomorrow. Follow H&H. Patient also needs placement 04/07: Planned for colonoscopy but patient could not complete bowel prep due to underlying dementia and metabolic encephalopathy Continue supportive care, continue to monitor H&H. Pending placement. Continue to follow renal function. Creatinine 3.2 today with sodium 148. Off Lasix. Repeat BMP tomorrow. 04/08; sodium and creatinine level further increased today. We will start on low volume D5 W. Repeat BMP in the morning, follow urine output. Discussed plan of care with nephrology. Guarded prognosis. 04/09: Patient spiked temp 100.1 yesterday but afebrile now. Continue to follow clinically. Monitor off antibiotics. If continues to spike fever then need to do reculture. Continue low volume D5W, monitor serum creatinine and sodium level. 9/4: -Remains with 101 fever on Monday night, low-grade fever yesterday repeat blood, urine and check CXR and then restart IV Cefepime 1 gm daily + Linezolid 600 mg BID. Monitor renal function. Creatinine level increasing. Renal prognosis is guarded. 04/11: ID restarted cefepime and Zyvox yesterday. Creatinine appears to be worsening but no labs today. Recheck BMP. Etiology appears to be secondary to vasomotor MARIE superimposed on CKD in the setting of sepsis/CHF/A. fib with RVR. Renal ultrasound negative. Continue amiodarone and metoprolol for rate control with A. fib. Continue diuresis with Lasix. No NATALYA inhibitor due to renal insufficiency. 04/12/2022: Continue with antibiotics (cefepime and Zosyn). Continue holding NATALYA inhibitor's/ARB's given patient's worsening renal function. Continue diuresis. Nephrology spoke with the patient's son about the possibility of hemodialysis gi frankie the patient's worsening renal function (Creatinine 2.0--> 2.3--> 2.9--> 3.2--> 4.1--> 5.3--> 5.8). Pending repeat BMP given patient's persistent hyperkalemia requiring medical management. Assessment and plan: #MARIE on chronic kidney disease stage III secondary to vasomotor nephropathy Nephrology consulted; appreciate recs. Renally dose meds and avoid nephrotoxic drugs. Continue holding NATALYA inhibitor/ARB's. Continue IV diuresis in the setting of patient being volume overloaded. Vascular surgery consulted for placement of Vas-Cath in order for patient to undergo hemodialysis. Patient initiated on hemodialysis on 04/13/2022. Continue hemodialysis #Hospital-acquired pneumoniaresolved #Acute hypoxic respiratory failureworsening - etiology: Secondary to hospital-acquired pneumonia - baseline oxygen requirements: Room air - supplemental oxygen: High flow nasal cannula Unremarkable blood cultures to date. Continue cefepime and Zosyn (restarted on 04/11/2022). - Continue protocol: continue pulse oximetry, wean oxygen as tolerated, ordered incentive spirometry and educated patient on how to use it and its importance. - continue to monitor #VRE UTI (present on admission)resolved #Sepsis secondary to VRE UTIresolved #Acute metabolic encephalopathy Continue contact isolation Completed Zosyn and cefepime (renally dosed). Infectious disease consulted; appreciate recs #Hyperkalemiaresolved #Hypokalemia Potassium 5.4. Pending repeat BMP Initiating medical management (Kayexalate) #Hypernatremiaresolved #Hyponatremiaresolved #Hypokalemiaresolved - potassium 3.5. Repleting. Monitor with BMP. #Microcytic anemia #Chronic lower GI bleed Hemoglobin 6.6--> 8.6; status post multiple blood transfusions. Holding patient's Eliquis given anemia. Gastroenterology consulted; appreciate recs. Colonoscopy initially planned for ; however patient unable to undergo colonoscopy due to incomplete bowel prep and worsening metabolic encephalopathy. Transfuse if hemoglobin <or patient becomes symptomatic. #A. fib with rapid ventricular rate; rate controlled Continue amiodarone, metoprolol Cardiology consulted; appreciate recs. Eliquis currently being held given anemia. #Acute on chronic systolic heart failurestable LVEF 25 to 30%. Continue diuresis and beta-blockade. Continue holding NAATLYA inhibitor and ARB in the setting of MARIE Cardiology consulted; appreciate recs #Non-ST elevation ID (type II) Likely secondary to MARIE on CKD stage III No current intervention at this time. #Moderate protein calorie malnutrition Albumin 2.8 Nutrition supplements, supportive care Nutrition consulted #Tobacco dependence #Tobacco/Smoking cessation counseling - Counseled patient about the importance of smoking cessation and the possible sequelae as a result of continued tobacco consumption. The patient expresses understanding. -Time: +15 mins #Immunocompromised host Seems to be on methotrexate and prednisone as per his home medications. Unclear indication. If neutropenia worsens, methotrexate will be discontinued. Critical Care Billing: The high probability of a clinically significant, sudden or life threatening deterioration of the [renal] system(s) required my full and direct attention, intervention and personal management. The aggregate critical care time was [60] minutes. This time is in addition to time spent performing reported procedures but includes the following: [x] Data Review and interpretation [x] Patient assessment and monitoring of vital signs [x] Documentation [x] Medication orders and management Disposition Plan: Continue medical management Total Time Spent with Patient (Minutes): 45 minutes History Interval history: No acute events overnight. Hospitalist Physical - Constitutional Vitals: Temp Pulse Resp BP Pulse Ox 97.9 F 68 18 104/57 97 04/16/22 12:00 04/17/22 08:50 04/17/22 08:50 04/16/22 12:00 04/17/22 10:00 General appearance: Present: no acute distress, well-nourished, other (Patient on a Ventimask) - EENT Eyes: Present: PERRL, EOM intact ENT: hearing intact, clear oral mucosa, dentition normal - Neck Neck: Present: supple, normal ROM - Respiratory Respiratory effort: normal Respiratory: bilateral: rhonchi (High flow nasal cannula) - Cardiovascular Rhythm: regular Heart Sounds: Present: S1 & S2 - Extremities Extremities: no ischemia, pulses intact, pulses symmetrical, No edema, normal temperature, normal color Peripheral Pulses: within normal limits - Abdominal General gastrointestinal: soft, non-tender, non-distended, normal bowel sounds - Integumentary Integumentary: Present: clear, warm, dry - Psychiatric Psychiatric: cooperative - Neurologic Neurologic: CNII-XII intact - Allied Health Allied health notes reviewed: nursing, social work, case management HEART Score - HEART Score Troponin: Troponin T 0.135 ng/mL (0.00-0.029) H* 04/03/22 12:29 Results - Labs CBC & Chem 7: 04/17/22 06:03 04/17/22 06:03 Labs: Laboratory Last Values WBC 11.2 K/mm3 (4.5-11.0) H 04/17/22 06:03 RBC 3.37 M/mm3 (3.65-5.03) L 04/17/22 06:03 Hgb 8.6 gm/dl (11.8-15.2) L 04/17/22 06:03 Hct 27.5 % (35.5-45.6) L 04/17/22 06:03 MCV 82 fl (84-94) L 04/17/22 06:03 MCH 26 pg (28-32) L 04/17/22 06:03 MCHC 31 % (32-34) L 04/17/22 06:03 RDW 20.4 % (13.2-15.2) H 04/17/22 06:03 Plt Count 121 K/mm3 (140-440) L 04/17/22 06:03 Lymph % (Auto) 11.1 % (13.4-35.0) L 04/16/22 04:55 [place] % (Auto) 2.2 % (0.0-7.3) 04/16/22 04:55 Eos % (Auto) 1.7 % (0.0-4.3) 04/16/22 04:55 Baso % (Auto) 0.2 % (0.0-1.8) 04/16/22 04:55 Lymph # (Auto) 0.8 K/mm3 (1.2-5.4) L 04/16/22 04:55 [place] # (Auto) 0.2 K/mm3 (0.0-0.8) 04/16/22 04:55 Eos # (Auto) 0.1 K/mm3 (0.0-0.4) 04/16/22 04:55 Baso # (Auto) 0.0 K/mm3 (0.0-0.1) 04/16/22 04:55 Add Manual Diff Complete 04/17/22 06:03 Total Counted 100 04/17/22 06:03 Seg Neutrophils % Dramatic Agent 04/17/22 06:03 Seg Neuts % (Manual) 96.0 % (40.0-70.0) H 04/17/22 06:03 Band Neutrophils % 0 % 04/17/22 06:03 Lymphocytes % (Manual) 3.0 % (13.4-35.0) L 04/17/22 06:03 Reactive Lymphs % (Man) 0 % 04/17/22 06:03 Monocytes % (Manual) 0 % (0.0-7.3) 04/17/22 06:03 Eosinophils % (Manual) 1.0 % (0.0-4.3) 04/17/22 06:03 Basophils % (Manual) 0 % (0.0-1.8) 04/17/22 06:03 Metamyelocytes % 0 % 04/17/22 06:03 Myelocytes % 0 % 04/17/22 06:03 Promyelocytes % 0 % 04/17/22 06:03 Blast Cells % 0 % 04/17/22 06:03 Nucleated RBC % Not Reportable 04/17/22 06:03 Seg Neutrophils # 6.2 K/mm3 (1.8-7.7) 04/16/22 04:55 Seg Neutrophils # Man 10.8 K/mm3 (1.8-7.7) H 04/17/22 06:03 Band Neutrophils # 0.0 K/mm3 04/17/22 06:03 Lymphocytes # (Manual) 0.3 K/mm3 (1.2-5.4) L 04/17/22 06:03 Abs React Lymphs (Man) 0.0 K/mm3 04/17/22 06:03 Monocytes # (Manual) 0.0 K/mm3 (0.0-0.8) 04/17/22 06:03 Eosinophils # (Manual) 0.1 K/mm3 (0.0-0.4) 04/17/22 06:03 Basophils # (Manual) 0.0 K/mm3 (0.0-0.1) 04/17/22 06:03 Metamyelocytes # 0.0 K/mm3 04/17/22 06:03 Myelocytes # 0.0 K/mm3 04/17/22 06:03 Promyelocytes # 0.0 K/mm3 04/17/22 06:03 Blast Cells # 0.0 K/mm3 04/17/22 06:03 WBC Morphology Not Reportable 04/17/22 06:03 Hypersegmented Neuts Not Reportable 04/17/22 06:03 Hyposegmented Neuts Not Reportable 04/17/22 06:03 Hypogranular Neuts Not Reportable 04/17/22 06:03 Smudge Cells Not Reportable 04/17/22 06:03 Toxic Granulation Not Reportable 04/17/22 06:03 Toxic Vacuolation Not Reportable 04/17/22 06:03 Dohle Bodies Not Reportable 04/17/22 06:03 Pelger-Huet Anomaly Not Reportable 04/17/22 06:03 Marylin Rods Not Reportable 04/17/22 06:03 Platelet Estimate Consistent w auto 04/17/22 06:03 Clumped Platelets Not Reportable 04/17/22 06:03 Plt Clumps, EDTA Not Reportable 04/17/22 06:03 Large Platelets Rare 04/17/22 06:03 Giant Platelets Not Reportable 04/17/22 06:03 Platelet Satelliting Not Reportable 04/17/22 06:03 Plt Morphology Comment Not Reportable 04/17/22 06:03 RBC Morphology Not Reportable 04/17/22 06:03 Dimorphic RBCs Not Reportable 04/17/22 06:03 Polychromasia Not Reportable 04/17/22 06:03 Hypochromasia 1+ 04/17/22 06:03 Poikilocytosis Not Reportable 04/17/22 06:03 Anisocytosis 1+ 04/17/22 06:03 Microcytosis Not Reportable 04/17/22 06:03 Macrocytosis Not Reportable 04/17/22 06:03 Spherocytes Not Reportable 04/17/22 06:03 Pappenheimer Bodies Not Reportable 04/17/22 06:03 Sickle Cells Not Reportable 04/17/22 06:03 Target Cells Few 04/17/22 06:03 Tear Drop Cells Not Reportable 04/17/22 06:03 Ovalocytes Not Reportable 04/17/22 06:03 Helmet Cells Not Reportable 04/17/22 06:03 [place] Bodies Not Reportable 04/17/22 06:03 [place] Rings Not Reportable 04/17/22 06:03 [place] Cells Not Reportable 04/17/22 06:03 Bite Cells Not Reportable 04/17/22 06:03 Crenated Cell Not Reportable 04/17/22 06:03 Elliptocytes Not Reportable 04/17/22 06:03 Acanthocytes (Spur) Not Reportable 04/17/22 06:03 Rouleaux Not Reportable 04/17/22 06:03 Hemoglobin C Crystals Not Reportable 04/17/22 06:03 Schistocytes Not Reportable 04/17/22 06:03 Malaria parasites Not Reportable 04/17/22 06:03 Cristino Bodies Not Reportable 04/17/22 06:03 Hem Pathologist Commnt No 04/17/22 06:03 Sodium 135 mmol/L (137-145) L 04/17/22 06:03 Potassium 4.3 mmol/L (3.6-5.0) 04/17/22 06:03 Chloride 94.7 mmol/L (98-107) L 04/17/22 06:03 Carbon Dioxide 25 mmol/L (22-30) 04/17/22 06:03 Anion Gap 20 mmol/L 04/17/22 06:03 BUN 50 mg/dL (9-20) H 04/17/22 06:03 Creatinine 5.6 mg/dL (0.8-1.3) H 04/17/22 06:03 Estimated GFR 12 ml/min 04/17/22 06:03 BUN/Creatinine Ratio 9 % 04/17/22 06:03 Glucose 99 mg/dL (75-100) 04/17/22 06:03 POC Glucose 101 mg/dL (70-105) 04/17/22 06:08 Lactic Acid 1.20 mmol/L (0.7-2.0) 03/31/22 08:00 Calcium 8.9 mg/dL (8.4-10.2) 04/17/22 06:03 Phosphorus 3.90 mg/dL (2.5-4.5) 04/15/22 09:41 Magnesium 1.90 mg/dL (1.7-2.3) 04/15/22 09:41 Total Bilirubin 0.50 mg/dL (0.1-1.2) 04/05/22 05:06 AST 9 units/L (5-40) 04/05/22 05:06 ALT 7 units/L (7-56) 04/05/22 05:06 Alkaline Phosphatase 80 units/L (35-129) 04/05/22 05:06 Total Creatine Kinase 55 units/L (55-170) 03/31/22 08:00 Troponin T 0.135 ng/mL (0.00-0.029) H* 04/03/22 12:29 NT-Pro-B Natriuret Pep 64758 pg/mL (0-900) H 03/31/22 08:00 Total Protein 5.8 g/dL (6.3-8.2) L 04/05/22 05:06 Albumin 2.0 g/dL (3.9-5) L 04/05/22 05:06 Albumin/Globulin Ratio 0.5 % 04/05/22 05:06 Triglycerides 76 mg/dL (2-149) 03/31/22 08:00 Cholesterol 109 mg/dL (50-199) 03/31/22 08:00 LDL Cholesterol Direct 55 mg/dL (50-130) 03/31/22 08:00 HDL Cholesterol 38 mg/dL (40-59) L 03/31/22 08:00 Cholesterol/HDL Ratio 2.86 % 03/31/22 08:00 Procalcitonin 0.36 ng/mL (<0.15) 03/31/22 08:00 Urine Color Yellow (Yellow) 04/10/22 17:00 Urine Turbidity Slightly cloudy (Clear) 04/10/22 17:00 Specific [place] (Man) 1.010 (1.003-1.030) 04/10/22 17:00 Ur Protein (Man) 2+ mg/dL (Negative) 04/10/22 17:00 Ur Ketones (Man) Negative (Negative) 04/10/22 17:00 Ur Nitrite (Man) Negative (Negative) 04/10/22 17:00 Ur Reducing Substances Not Reportable 04/10/22 17:00 Urine Bilirubin (Man) Negative (Negative) 04/10/22 17:00 Urine Ictotest Not Reportable 04/10/22 17:00 Leukocyte Esterase (Man) Negative (Negative) 04/10/22 17:00 Urine WBC (Auto) 2.0 /HPF (0.0-6.0) 04/10/22 17:00 Urine RBC (Auto) 4.0 /HPF (0.0-6.0) 04/10/22 17:00 Urine Bacteria (Auto) 2+ /HPF (Negative) 04/10/22 17:00 Urine RBC (Manual) 3+ (Negative) 04/10/22 17:00 Granular Casts 6 /LPF 04/01/22 05:20 RBC Casts 7 /LPF 04/01/22 05:20 Urine Yeast (Budding) 3+ /HPF 04/10/22 17:00 Urine Creatinine 82.0 mg/dL (0.1-20.0) H 04/05/22 18:16 Urine Sodium 107 mmol/L 04/05/22 18:16 Random Vancomycin 18.2 ug/mL (0-40.0) 04/06/22 05:46 SARS-CoV-2 (PCR) Negative (Negative) 04/08/22 09:45 Hepatitis A IgM Ab Non-reactive (NonReactive) 04/13/22 14:19 Hep Bs Antigen Non-reactive (Negative) 04/13/22 14:19 Hep B Core IgM Ab Non-reactive (NonReactive) 04/13/22 14:19 Hepatitis C Antibody Non-reactive (NonReactive) 04/13/22 14:19 Blood Type O POSITIVE 04/14/22 08:44 Antibody Screen Negative 04/14/22 08:44 Crossmatch See Detail 04/14/22 08:44 [place]/IV: Voiding Method Incontinent Active Medications - Current Medications Current Medications: Generic Name Dose Route Start Last Admin Trade Name Freq PRN Reason Stop Dose Admin Acetaminophen 650 mg 03/31/22 13:31 04/15/22 22:25 Acetaminophen 325 Mg Tab PO 650 mg Q4H PRN Administration Pain MILD(1-3)/Fever >100.5/[place] Albuterol 2.5 mg 04/12/22 08:00 04/17/22 08:50 Albuterol 2.5 Mg/3 Ml Nebu IH 2.5 mg TIDRT FRANCESCA Administration Amiodarone HCl 200 mg 03/31/22 22:00 04/17/22 09:41 Amiodarone 200 Mg Tab PO 200 mg BID FRANCESCA Administration Aspirin 81 mg 04/01/22 10:00 04/17/22 09:40 Aspirin 81 Mg Tab Chew PO 81 mg QDAY FRANCESCA Administration Atorvastatin Calcium 40 mg 03/31/22 22:00 04/16/22 22:10 Atorvastatin 40 Mg Tab PO 40 mg QHS FRANCESCA Administration Dextrose 25 ml 04/15/22 00:04 Dextrose 50% In Water (25gm) 50 Ml Syringe IV Q30MIN PRN Hypoglycemia Protocol Epoetin Gordon-epbx 20,000 unit 04/14/22 15:00 Epoetin Gordon-Epbx 10,000 Unit/1 Ml Vial SUB-Q CORINNE PRN hemodialysis Folic Acid 1 mg 04/08/22 10:00 04/17/22 09:41 Folic Acid 1 Mg Tab PO 1 mg DAILY FRANCESCA Administration Heparin Sodium (Porcine) 3,000 unit 04/13/22 10:24 Heparin 10,000 Units/10 Ml Vial IV CORINNE PRN hemodialysis Sodium Chloride 100 mls @ 999 mls/hr 04/13/22 10:24 Nacl 0.9% IV CORINNE PRN Hypotension Metoprolol Tartrate 100 mg 03/31/22 22:00 04/17/22 09:37 Metoprolol Tartrate 100 Mg Tab PO Not Given BID FRANCESCA Morphine Sulfate 2 mg 03/31/22 13:31 04/16/22 10:37 Morphine 2 Mg/1 Ml Inj IV 2 mg Q4H PRN Administration Pain, Moderate (4-6) Morphine Sulfate 4 mg 03/31/22 13:31 Morphine 4 Mg/1 Ml Inj IV Q4H PRN Pain , Severe (7-10) Ondansetron HCl 4 mg 03/31/22 13:31 Ondansetron 4 Mg/2 Ml Inj IV Q8H PRN Nausea And Vomiting Pantoprazole Sodium 40 mg 04/08/22 17:00 04/17/22 08:00 Pantoprazole 40 Mg Tab PO 40 mg BIDDIAB FRANCESCA Administration Quetiapine Fumarate 50 mg 03/31/22 22:00 04/16/22 22:10 Quetiapine 25 Mg Tab PO 50 mg QHS FRANCESCA Administration Sodium Chloride 10 ml 03/31/22 22:00 04/17/22 09:40 Sodium Chloride 0.9% 10 Ml Flush Syringe IV 10 ml BID FRANCESCA Administration Tamsulosin HCl 0.4 mg 04/01/22 10:00 04/17/22 09:41 Tamsulosin 0.4 Mg Cap PO 0.4 mg QDAY FRANCESCA Administration Nutrition/Malnutrition Assess - Dietary Evaluation Nutrition/Malnutrition Findings: Nutrition Notes Start: 04/01/22 10:53 Freq: Status: Active Protocol: Document 04/15/22 12:27 [facility] (Rec: 04/15/22 12:39 [facility] [id number]) Nutrition Notes Initial or Follow up Reassessment Current Diagnosis Acute Kidney Injury,Sepsis, Heart Failure,Respiratory Failure Other Pertinent Diagnosis Pneu, UTI, acute metabolic encephalopathy, anemia Current Diet TF - Nepro at 45ml/hr Labs/Tests Na 136 K 3.5 BUN 45 Cr 6.1 Pertinent Medications 40mEq KCl Height 5 ft 9 in Weight 77 kg [place] Body Weight (kg) 72.72 BMI 25.0 Weight Status Appropriate Subjective/Other Information Pt tolerating TF at goal rate. Per [facility] evaluation on 04/14, PEG tube recommended. HD initiated on 04/13. New stage 2 sacral wound and (L) posterior buttocks wound reported 04/13. Percent of energy/protein needs met: 105% energy 95% pro Burn Absent Trauma Absent #2 Nutrition Diagnosis Altered nutrition-related laboratory values Diagnosis Progress(for reassessment Continues documentation) #1 Nutrition Diagnosis Inadequate oral intake Diagnosis Progress(for reassessment Continues documentation) Is patient on ventilator? No Is Patient Ambulatory and/or Out of Bed No REE-([facility]-confined to bed) [phone] Calculation Used for Recommendations Yordy De Jesus Additional Notes Pro needs >1.2g/kg: >92g/day Fluid needs 1-1.5L/day Nutrition Intervention Nutrition Support: Continue Nepro at 45ml/hr with 200ml water flush q4h. Kcal 1,944 Protein (gm) 87 Carbohydrates (gm) 174 Fat (gm) 104 Fluid (mL) 785 Fiber (gm) 14 Goal #1 TF tolerance Goal #2 TF to provide at least 75% energy and pro needs Follow-Up By: 04/22/22 Additional Comments F/U: stable TF, wt
[2022-04-17] MEDS: ACETAMINOPHEN 325 MG TAB PO PRN (16:40)
[2022-04-17] MEDS: MORPHINE 2 MG/1 ML INJ IV PRN (16:49)
[2022-04-17] MEDS: QUEtiapine 25 MG TAB PO SCH (21:50)
[2022-04-18 04:15] LABS: ABG Base Excess 1.8 mmol/L (-2.0-3.0); ABG HCO3 24.6 mmol/L (20.0-26.0); ABG Methemoglobin 0.6 % (0.0-1.5); ABG Oxygen Saturation 81.8 % (95.0-99.0); ABG PCO2 31.1 mm Hg; ABG PH 7.516 pH Units (7.350-7.450); ABG PO2 44.2 mm Hg (80.0-90.0)
[2022-04-18] MEDS: ACETAMINOPHEN 325 MG TAB PO PRN ×2 (05:01→20:09)
--- NOTE | 2022-04-18 05:15 | XRay Report ---
CHEST 1 VIEW INDICATION / CLINICAL INFORMATION: HYPOXIA. COMPARISON: Chest x-ray 04/10/2022 FINDINGS: SUPPORT DEVICES: Weighted feeding tube terminates below the inferior margin of the image likely withi n the stomach. Right IJ central venous catheter terminates within superior vena cava. HEART / MEDIASTINUM: Cardiac Silhouette obscured. LUNGS / PLEURA: Complete opacification of the left hemithorax with probable atelectasis of the left l bridget. Left bronchus appears to have cut off suggesting fluid or mucus impaction. Right lung demonstrat es infrahilar opacities which may in part reflect prominent vasculature or adenopathy. Right lung oth erwise clear. BONES: No significant osseous abnormality. ADDITIONAL FINDINGS: No significant additional findings. IMPRESSION: 1. Complete opacification of the left chest with shift of mediastinal structures. Appearance is consi dered compatible with total atelectasis of the left lung. Mucus impaction or fluid opacification of t he left main bronchus is suggested. 2. Infrahilar opacities right lung may in part reflect hilar vasculature. Signer Name: Jeffrey Rodrigez II, MD Signed: 04/18/2022 5:10 AM Workstation Name: [id number]
[2022-04-18] MEDS ORDERED: SODIUM CHLORIDE 0.9% 1000 ML 1,000 ML IV ONE ×2 (05:24→14:30)
[2022-04-18 05:26] LABS: Basophils % (Auto) 0.4 % (0.0-1.8); Eosinophils # (Auto) 0.1 K/mm3 (0.0-0.4); Eosinophils % (Auto) 1.9 % (0.0-4.3); Hematocrit 23.3 % (35.5-45.6); Hemoglobin 7.8 gm/dl (11.8-15.2); Lymphocytes # (Auto) 0.5 K/mm3 (1.2-5.4); Lymphocytes % (Auto) 10.2 % (13.4-35.0); Mean Corpuscular HGB Conc 33 % (32-34); Mean Corpuscular Volume 79 fl (84-94); Monocytes # (Auto) 0.1 K/mm3 (0.0-0.8); Red Blood Count 2.96 M/mm3 (3.65-5.03)
[2022-04-18 05:33] LABS: Platelet Count 97 K/mm3 (140-440); Red Cell Distribution Width 20.6 % (13.2-15.2)
[2022-04-18 05:42] LABS: Calcium 8.6 mg/dL (8.4-10.2)
[2022-04-18] MEDS ORDERED: SODIUM CHLORIDE 0.9% 250ML 250 ML IV ONE (05:46)
[2022-04-18] MEDS ORDERED: PIPERACIL/TAZOBACTA 4.5/NS 100 4.5 GM/100 ML VIAL IV SCH (06:05)
[2022-04-18] MEDS: PIPERACIL-TAZO 2.25 GM/50 ML 2.25 GM/50 ML BAG IV SCH ×2 (06:05→19:05)
[2022-04-18] MEDS: ALBUTEROL 2.5 MG/3 ML NEBU IH SCH (08:45)
[2022-04-18] MEDS: PANTOPRAZOLE 40 MG TAB PO SCH ×3 (08:59→19:07)
[2022-04-18] MEDS: FOLIC ACID 1 MG TAB PO SCH (09:19)
[2022-04-18] MEDS: METOPROLOL TARTRATE 100 MG TAB PO SCH ×2 (09:19→21:33)
[2022-04-18] MEDS: TAMSULOSIN 0.4 MG CAP PO SCH (09:19)
[2022-04-18] MEDS: ASPIRIN 81 MG TAB CHEW PO SCH (09:19)
[2022-04-18] MEDS: AMIODARONE 200 MG TAB PO SCH ×2 (09:20→21:30)
--- NOTE | 2022-04-18 09:30 | Cat Scan Report ---
CT CHEST, ABDOMEN, AND PELVIS WITHOUT CONTRAST INDICATION / CLINICAL INFORMATION: Evaluate for additional source of infection. TECHNIQUE: Axial CT images were obtained through the chest, abdomen, and pelvis without contrast. All CT scans at this location are performed using CT dose reduction for ALARA by means of automated expo sure control. COMPARISON: None available. FINDINGS: HEART: Mild cardiomegaly CORONARY ARTERY CALCIFICATION: Moderate. THORACIC AORTA: No significant abnormality. MEDIASTINUM / EDWARDO: No significant abnormality. PLEURA: Trace right pleural effusion and small to medium left pleural effusion. No pneumothorax. LUNGS: There is complete atelectasis throughout the left lung. There is partial atelectasis in the me dial right lower lobe. The remainder of the right lung is clear. ADDITIONAL CHEST FINDINGS: None. LIVER: No significant abnormality. GALLBLADDER: No significant abnormality. BILE DUCTS: No significant abnormality. PANCREAS: No significant abnormality. SPLEEN: No significant abnormality. ADRENALS: No significant abnormality. RIGHT KIDNEY / URETER: 2 punctate calyceal stones are identified near mid pole. No hydronephrosis. A 2.4 cm slightly hyperdense cyst is identified near the superior pole, probable hemorrhagic cyst. LEFT KIDNEY / URETER: Punctate calyceal stone is identified at the superior pole. A 1 cm hypodensity consistent with a cyst is identified near mid pole. STOMACH and SMALL BOWEL: No significant abnormality. Feeding tube terminates in the gastric antrum. COLON: The colon appears fluid-filled with mild circumferential thickening distally which could repre sent a nonspecific colitis. APPENDIX: Not clearly identified. PERITONEUM: No free fluid. No free air. No fluid collection. LYMPH NODES: No significant adenopathy. AORTA / ARTERIES: Mild atherosclerotic calcification without acute abnormality. IVC / VEINS: No significant abnormality. URINARY BLADDER: No significant abnormality. REPRODUCTIVE ORGANS: No significant abnormality. ADDITIONAL FINDINGS: None. SKELETAL SYSTEM: Mild multilevel thoracolumbar spondylosis. Severe osteoarthritic changes at the left hip. No fracture or bone lesion. IMPRESSION: 1. Cardiomegaly. 2. Complete atelectasis of the left lung. Superimposed infiltrate in the left lung cannot be excluded . 3. Partial atelectasis in the right lower lobe. 4. Small to medium bilateral pleural effusions. 5. Bilateral renal cysts and nonobstructing stones as described. 6. The colon is fluid-filled with mild wall thickening in the descending colon which could represent a nonspecific colitis. Signer Name: Sixto Reveles Jr, MD Signed: 04/18/2022 9:26 AM Workstation Name: [id number]
--- NOTE | 2022-04-18 09:44 | Progress Note ---
Assessment and Plan Cultures: COVID-19 PCR: Negative 03/31/2022 blood culture: No growth 04/01/2022 urine culture: VRE - Enterococcus faecium 04/08/2022 COVID-19 PCR: Negative 04/10/2022 blood culture: No growth so far 04/10/2022 urine culture: Kizzy albicans A/P: 67-year-old male with CAD, CKD, atrial fibrillation, vascular dementia was admitted to the hospital on 03/31/2022 with fever and shortness of breath: #Recurrent sepsis: Likely recurrent aspiration and mucous plugging, chest x-ray and CT scan on review showed complete whiteout of left lung. s/p multiple rounds of abx. #Aspiration pneumonia, acute hypoxic respiratory failure #MARIE on CKD: Nephrology on board, initiated on HD. 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 Unclear indication. Patient does not know the indication. ?Rheumatoid arthritis #Leukopenia: improving after holding methotrexate. #VRE UTI: Asymptomatic bacteriuria, UA without any significant pyuria reflect colonization. #Acute encephalopathy: with underlying dementia. Recs: -Continue renally adjusted IV Zosyn for now (s/p multiple rounds of abx) -Consider pulmonary consult, transfer to IMCU/ICU -follow up formal read of CT chest, abdomen and pelvis -overall poor prognosis, consider goals of care discussions d/w Dr. Jignesh Greco MD, FACP, [facility] O: [phone] F: [phone] C: [phone] Subjective Date of service: 04/18/22 Principal diagnosis: anemia Interval history: Febrile, drowsy, on NRB. Discussed with RN. Objective - Exam Narrative Exam: Physical Exam: Constitutional: drowsy, on NRB Head, Ears, Nose: Normocephalic, atraumatic. External ears, nose normal Eyes: Conjunctivae/corneas clear. No icterus. No ptosis. Neck: Supple, no meningeal signs Cardiovascular: S1, S2 + Respiratory: rhonchi +, reduced air movement on L side GI: Soft, non-tender; bowel sounds normal. No peritoneal signs. Musculoskeletal: No pedal edema, no cyanosis. Skin: No rash or abscess Hem/Lymphatic: No palpable cervical or supraclavicular nodes. No lymphangitis Psych: No agitation Neurological: drowsy - Constitutional Vitals: Vital Signs Temp Pulse Resp BP Pulse Ox 101.6 F H 112 H 22 86/55 96 04/18/22 04:49 04/18/22 09:28 04/18/22 09:28 04/18/22 04:49 04/18/22 09:28 Temperature -Last 24 Hours Temperature 101.6 F Temperature 100.3 F Temperature 101.1 F Temperature 101.6 F - Labs CBC & Chem 7: 04/18/22 04:24 04/18/22 04:24 Labs: Abnormal lab results 04/18/22 04/18/22 04/18/22 Range/Units 03:51 04:24 04:24 RBC 2.96 L (3.65-5.03) M/mm3 Hgb 7.8 L (11.8-15.2) gm/dl Hct 23.3 L (35.5-45.6) % MCV 79 L (84-94) fl MCH 26 L (28-32) pg RDW 20.6 H (13.2-15.2) % Plt Count 97 L (140-440) K/mm3 Lymph % (Auto) 10.2 L (13.4-35.0) % Lymph # (Auto) 0.5 L (1.2-5.4) K/mm3 Seg Neutrophils % 86.5 H (40.0-70.0) % ABG pH 7.516 H (7.350-7.450) pH Units ABG pO2 44.2 L (80.0-90.0) mm Hg ABG O2 Saturation 81.8 L (95.0-99.0) % ABG Hemoglobin 8.6 L (14.0-18.0) gm/dl Oxyhemoglobin 80.1 L (95.0-99.0) % Potassium 5.1 H (3.6-5.0) mmol/L Chloride 96.5 L (98-107) mmol/L BUN 70 H (9-20) mg/dL Creatinine 6.9 H (0.8-1.3) mg/dL
[2022-04-18] MEDS ORDERED: SCOPOLAMINE TRANSDERMAL PATCH 72 HR TD SCH ×2 (10:00→11:00)
--- NOTE | 2022-04-18 11:25 | Progress Note ---
Assessment and Plan Assessment and plan: The patient is a 67-year-old male with CAD, CKD, atrial fibrillation, vascular dementia was admitted to the hospital on 03/31/2022 with complaints of fever and shortness of breath of 3 days. Upon evaluation in the ED, T-max of 102.8 F. Also with atrial fibrillation with rapid ventricular rate, leukocytosis. Admitted due to concerns for sepsis from pneumonia. Was started on empiric antibiotics. Urine culture growing VRE.. Echo showed EF of 25 to 30%, cardiology following. Initial chest x-ray on 03/31/2022 showed left upper lobe pneumonia. Interval improvement noted on chest x-ray from 04/03/2022. Hospital course: 04/01/2020; patient is febrile, mild distress, on Vanco and cefepime, follow cultures 04/02; patient's hemoglobin dropped to 6.8, 1 unit PRBC transfusion, Eliquis held, follow stool guaiac Cardiology recommendations noted and appreciated 04/03; received 1 unit PRBC yesterday, Hb today 7.2, closely monitor 04/04; patient completed 5 days of Vanco and cefepime for HCAP Urine cultures positive for VRE, add Zyvox 600 mg IV every 12 Contact isolation, ID consulted 04/05: Final ID no antibiotic treatment necessary for VRE as that could be colon ization. Continue to monitor for renal function improvement. Plan for colonoscopy on . Continue to monitor H&H. 04/06: Continue to follow serum creatinine, plan for colonoscopy tomorrow. Follow H&H. Patient also needs placement 04/07: Planned for colonoscopy but patient could not complete bowel prep due to underlying dementia and metabolic encephalopathy Continue supportive care, continue to monitor H&H. Pending placement. Continue to follow renal function. Creatinine 3.2 today with sodium 148. Off Lasix. Repeat BMP tomorrow. 04/08; sodium and creatinine level further increased today. We will start on low volume D5 W. Repeat BMP in the morning, follow urine output. Discussed plan of care with nephrology. Guarded prognosis. 04/09: Patient spiked temp 100.1 yesterday but afebrile now. Continue to follow clinically. Monitor off antibiotics. If continues to spike fever then need to do reculture. Continue low volume D5W, monitor serum creatinine and sodium level. 9/4: -Remains with 101 fever on Monday night, low-grade fever yesterday repeat blood, urine and check CXR and then restart IV Cefepime 1 gm daily + Linezolid 600 mg BID. Monitor renal function. Creatinine level increasing. Renal prognosis is guarded. 04/11: ID restarted cefepime and Zyvox yesterday. Creatinine appears to be worsening but no labs today. Recheck BMP. Etiology appears to be secondary to vasomotor MARIE superimposed on CKD in the setting of sepsis/CHF/A. fib with RVR. Renal ultrasound negative. Continue amiodarone and metoprolol for rate control with A. fib. Continue diuresis with Lasix. No NATALYA inhibitor due to renal insufficiency. 04/12/2022: Continue with antibiotics (cefepime and Zosyn). Continue holding NATALYA inhibitor's/ARB's given patient's worsening renal function. Continue diuresis. Nephrology spoke with the patient's son about the possibility of hemodialysis gi frankie the patient's worsening renal function (Creatinine 2.0--> 2.3--> 2.9--> 3.2--> 4.1--> 5.3--> 5.8). Pending repeat BMP given patient's persistent hyperkalemia requiring medical management. Assessment and plan: #MARIE on chronic kidney disease stage III secondary to vasomotor nephropathy Nephrology consulted; appreciate recs. Renally dose meds and avoid nephrotoxic drugs. Continue holding NATALYA inhibitor/ARB's. Continue IV diuresis in the setting of patient being volume overloaded. Vascular surgery consulted for placement of Vas-Cath in order for patient to undergo hemodialysis. Patient initiated on hemodialysis on 04/13/2022. Continue hemodialysis #Hospital-acquired pneumoniaresolved #Acute hypoxic respiratory failureworsening #Mucous plugging with atelectasis of left lung #Chronic aspiration risk - etiology: Secondary to hospital-acquired pneumonia - baseline oxygen requirements: Room air - supplemental oxygen: Venturi mask 10 L Unremarkable blood cultures to date. Completed cefepime and Zosyn. - Continue protocol: continue pulse oximetry, wean oxygen as tolerated, ordered incentive spirometry and educated patient on how to use it and its importance. Pulmonology consulted; pending recs. Starting chest physical therapy and deep suctioning. Starting scopolamine patch. - continue to monitor #VRE UTI (present on admission)resolved #Sepsis secondary to VRE UTIresolved #Acute metabolic encephalopathy Continue contact isolation Completed Zosyn and cefepime (renally dosed). Infectious disease consulted; appreciate recs #Hyperkalemiaresolved #Hypokalemia Potassium 5.4. Pending repeat BMP Initiating medical management (Kayexalate) #Hypernatremiaresolved #Hyponatremiaresolved #Hypokalemiaresolved - potassium 3.5. Repleting. Monitor with BMP. #Microcytic anemia #Chronic lower GI bleed Hemoglobin 6.6--> 8.6; status post multiple blood transfusions. Holding patient's Eliquis given anemia. Gastroenterology consulted; appreciate recs. Colonoscopy initially planned for ; however patient unable to undergo colonoscopy due to incomplete bowel prep and worsening metabolic encephalopathy. Transfuse if hemoglobin <or patient becomes symptomatic. #A. fib with rapid ventricular rate; rate controlled Continue amiodarone, metoprolol Cardiology consulted; appreciate recs. Eliquis currently being held given anemia. #Acute on chronic systolic heart failurestable LVEF 25 to 30%. Continue diuresis and beta-blockade. Continue holding NATALYA inhibitor and ARB in the setting of MARIE Cardiology consulted; appreciate recs #Non-ST elevation NC (type II) Likely secondary to MARIE on CKD stage III No current intervention at this time. #Moderate protein calorie malnutrition Albumin 2.8 Nutrition supplements, supportive care Nutrition consulted #Tobacco dependence #Tobacco/Smoking cessation counseling - Counseled patient about the importance of smoking cessation and the possible sequelae as a result of continued tobacco consumption. The patient expresses understanding. -Time: +15 mins #Immunocompromised host Seems to be on methotrexate and prednisone as per his home medications. Unclear indication. If neutropenia worsens, methotrexate will be discontinued. Critical Care Billing: The high probability of a clinically significant, sudden or life threatening deterioration of the [renal] system(s) required my full and direct attention, i ntervention and personal management. The aggregate critical care time was [60] minutes. This time is in addition to time spent performing reported procedures but includes the following: [x] Data Review and interpretation [x] Patient assessment and monitoring of vital signs [x] Documentation [x] Medication orders and management Disposition Plan: Continue medical management Total Time Spent with Patient (Minutes): 45 minutes History Interval history: Patient was febrile to 101.6 last night. Hospitalist Physical - Constitutional Vitals: Temp Pulse Resp BP Pulse Ox 101.6 F H 112 H 22 86/55 96 04/18/22 04:49 04/18/22 09:28 04/18/22 09:28 04/18/22 04:49 04/18/22 09:28 General appearance: Present: no acute distress, well-nourished, other (Patient on a Ventimask) - EENT Eyes: Present: PERRL, EOM intact ENT: hearing intact, clear oral mucosa, dentition normal, other (NG tube in place) - Neck Neck: Present: supple, normal ROM - Respiratory Respiratory effort: labored Respiratory: left: diminished (No breath sounds in left lung), bilateral: rhonchi (On Venturi mask 10 L) - Cardiovascular Rhythm: regular Heart Sounds: Present: S1 & S2 - Extremities Extremities: no ischemia, pulses intact, pulses symmetrical, No edema, normal temperature, normal color Peripheral Pulses: within normal limits - Abdominal General gastrointestinal: soft, non-tender, non-distended, normal bowel sounds - Integumentary Integumentary: Present: clear, warm, dry - Psychiatric Psychiatric: other (Unable to assess given patient's clinical status) - Neurologic Neurologic: CNII-XII intact - Allied Health Allied health notes reviewed: nursing, social work, case management HEART Score - HEART Score Troponin: Troponin T 0.135 ng/mL (0.00-0.029) H* 04/03/22 12:29 Results - Labs CBC & Chem 7: 04/18/22 04:24 04/18/22 04:24 Labs: Laboratory Last Values WBC 5.1 K/mm3 (4.5-11.0) 04/18/22 04:24 RBC 2.96 M/mm3 (3.65-5.03) L 04/18/22 04:24 Hgb 7.8 gm/dl (11.8-15.2) L 04/18/22 04:24 Hct 23.3 % (35.5-45.6) L 04/18/22 04:24 MCV 79 fl (84-94) L 04/18/22 04:24 MCH 26 pg (28-32) L 04/18/22 04:24 MCHC 33 % (32-34) 04/18/22 04:24 RDW 20.6 % (13.2-15.2) H 04/18/22 04:24 Plt Count 97 K/mm3 (140-440) L 04/18/22 04:24 Lymph % (Auto) 10.2 % (13.4-35.0) L 04/18/22 04:24 Saunders % (Auto) 1.0 % (0.0-7.3) 04/18/22 04:24 Eos % (Auto) 1.9 % (0.0-4.3) 04/18/22 04:24 Baso % (Auto) 0.4 % (0.0-1.8) 04/18/22 04:24 Lymph # (Auto) 0.5 K/mm3 (1.2-5.4) L 04/18/22 04:24 Saunders # (Auto) 0.1 K/mm3 (0.0-0.8) 04/18/22 04:24 Eos # (Auto) 0.1 K/mm3 (0.0-0.4) 04/18/22 04:24 Baso # (Auto) 0.0 K/mm3 (0.0-0.1) 04/18/22 04:24 Add Manual Diff Complete 04/17/22 06:03 Total Counted 100 04/17/22 06:03 Seg Neutrophils % 86.5 % (40.0-70.0) H 04/18/22 04:24 Seg Neuts % (Manual) 96.0 % (40.0-70.0) H 04/17/22 06:03 Band Neutrophils % 0 % 04/17/22 06:03 Lymphocytes % (Manual) 3.0 % (13.4-35.0) L 04/17/22 06:03 Reactive Lymphs % (Man) 0 % 04/17/22 06:03 Monocytes % (Manual) 0 % (0.0-7.3) 04/17/22 06:03 Eosinophils % (Manual) 1.0 % (0.0-4.3) 04/17/22 06:03 Basophils % (Manual) 0 % (0.0-1.8) 04/17/22 06:03 Metamyelocytes % 0 % 04/17/22 06:03 Myelocytes % 0 % 04/17/22 06:03 Promyelocytes % 0 % 04/17/22 06:03 Blast Cells % 0 % 04/17/22 06:03 Nucleated RBC % Not Reportable 04/17/22 06:03 Seg Neutrophils # 4.4 K/mm3 (1.8-7.7) 04/18/22 04:24 Seg Neutrophils # Man 10.8 K/mm3 (1.8-7.7) H 04/17/22 06:03 Band Neutrophils # 0.0 K/mm3 04/17/22 06:03 Lymphocytes # (Manual) 0.3 K/mm3 (1.2-5.4) L 04/17/22 06:03 Abs React Lymphs (Man) 0.0 K/mm3 04/17/22 06:03 Monocytes # (Manual) 0.0 K/mm3 (0.0-0.8) 04/17/22 06:03 Eosinophils # (Manual) 0.1 K/mm3 (0.0-0.4) 04/17/22 06:03 Basophils # (Manual) 0.0 K/mm3 (0.0-0.1) 04/17/22 06:03 Metamyelocytes # 0.0 K/mm3 04/17/22 06:03 Myelocytes # 0.0 K/mm3 04/17/22 06:03 Promyelocytes # 0.0 K/mm3 04/17/22 06:03 Blast Cells # 0.0 K/mm3 04/17/22 06:03 WBC Morphology Not Reportable 04/17/22 06:03 Hypersegmented Neuts Not Reportable 04/17/22 06:03 Hyposegmented Neuts Not Reportable 04/17/22 06:03 Hypogranular Neuts Not Reportable 04/17/22 06:03 Smudge Cells Not Reportable 04/17/22 06:03 Toxic Granulation Not Reportable 04/17/22 06:03 Toxic Vacuolation Not Reportable 04/17/22 06:03 Dohle Bodies Not Reportable 04/17/22 06:03 Pelger-Huet Anomaly Not Reportable 04/17/22 06:03 Marylin Rods Not Reportable 04/17/22 06:03 Platelet Estimate Consistent w auto 04/17/22 06:03 Clumped Platelets Not Reportable 04/17/22 06:03 Plt Clumps, EDTA Not Reportable 04/17/22 06:03 Large Platelets Rare 04/17/22 06:03 Giant Platelets Not Reportable 04/17/22 06:03 Platelet Satelliting Not Reportable 04/17/22 06:03 Plt Morphology Comment Not Reportable 04/17/22 06:03 RBC Morphology Not Reportable 04/17/22 06:03 Dimorphic RBCs Not Reportable 04/17/22 06:03 Polychromasia Not Reportable 04/17/22 06:03 Hypochromasia 1+ 04/17/22 06:03 Poikilocytosis Not Reportable 04/17/22 06:03 Anisocytosis 1+ 04/17/22 06:03 Microcytosis Not Reportable 04/17/22 06:03 Macrocytosis Not Reportable 04/17/22 06:03 Spherocytes Not Reportable 04/17/22 06:03 Pappenheimer Bodies Not Reportable 04/17/22 06:03 Sickle Cells Not Reportable 04/17/22 06:03 Target Cells Few 04/17/22 06:03 Tear Drop Cells Not Reportable 04/17/22 06:03 Ovalocytes Not Reportable 04/17/22 06:03 Helmet Cells Not Reportable 04/17/22 06:03 Alvarez-Kinmundy Bodies Not Reportable 04/17/22 06:03 [place] Rings Not Reportable 04/17/22 06:03 Damari Cells Not Reportable 04/17/22 06:03 Bite Cells Not Reportable 04/17/22 06:03 Crenated Cell Not Reportable 04/17/22 06:03 Elliptocytes Not Reportable 04/17/22 06:03 Acanthocytes (Spur) Not Reportable 04/17/22 06:03 Rouleaux Not Reportable 04/17/22 06:03 Hemoglobin C Crystals Not Reportable 04/17/22 06:03 Schistocytes Not Reportable 04/17/22 06:03 Malaria parasites Not Reportable 04/17/22 06:03 Cristino Bodies Not Reportable 04/17/22 06:03 Hem Pathologist Commnt No 04/17/22 06:03 ABG pH 7.516 pH Units (7.350-7.450) H 04/18/22 03:51 ABG pCO2 31.1 mm Hg 04/18/22 03:51 ABG pO2 44.2 mm Hg (80.0-90.0) L 04/18/22 03:51 ABG HCO3 24.6 mmol/L (20.0-26.0) 04/18/22 03:51 ABG O2 Saturation 81.8 % (95.0-99.0) L 04/18/22 03:51 ABG O2 Content 9.7 (0.0-44) 04/18/22 03:51 ABG Base Excess 1.8 mmol/L (-2.0-3.0) 04/18/22 03:51 ABG Hemoglobin 8.6 gm/dl (14.0-18.0) L 04/18/22 03:51 ABG Carboxyhemoglobin 1.4 % (0.0-5.0) 04/18/22 03:51 ABG Methemoglobin 0.6 % (0.0-1.5) 04/18/22 03:51 Oxyhemoglobin 80.1 % (95.0-99.0) L 04/18/22 03:51 FiO2 50 % 04/18/22 03:51 Sodium 137 mmol/L (137-145) 04/18/22 04:24 Potassium 5.1 mmol/L (3.6-5.0) H 04/18/22 04:24 Chloride 96.5 mmol/L (98-107) L 04/18/22 04:24 Carbon Dioxide 23 mmol/L (22-30) 04/18/22 04:24 Anion Gap 23 mmol/L 04/18/22 04:24 BUN 70 mg/dL (9-20) H 04/18/22 04:24 Creatinine 6.9 mg/dL (0.8-1.3) H 04/18/22 04:24 Estimated GFR 10 ml/min 04/18/22 04:24 BUN/Creatinine Ratio 10 % 04/18/22 04:24 Glucose 91 mg/dL (75-100) 04/18/22 04:24 POC Glucose 82 mg/dL (70-105) 04/18/22 05:07 Lactic Acid 1.20 mmol/L (0.7-2.0) 03/31/22 08:00 Calcium 8.6 mg/dL (8.4-10.2) 04/18/22 04:24 Phosphorus 3.90 mg/dL (2.5-4.5) 04/15/22 09:41 Magnesium 1.90 mg/dL (1.7-2.3) 04/15/22 09:41 Total Bilirubin 0.50 mg/dL (0.1-1.2) 04/05/22 05:06 AST 9 units/L (5-40) 04/05/22 05:06 ALT 7 units/L (7-56) 04/05/22 05:06 Alkaline Phosphatase 80 units/L (35-129) 04/05/22 05:06 Total Creatine Kinase 55 units/L (55-170) 03/31/22 08:00 Troponin T 0.135 ng/mL (0.00-0.029) H* 04/03/22 12:29 NT-Pro-B Natriuret Pep 59457 pg/mL (0-900) H 03/31/22 08:00 Total Protein 5.8 g/dL (6.3-8.2) L 04/05/22 05:06 Albumin 2.0 g/dL (3.9-5) L 04/05/22 05:06 Albumin/Globulin Ratio 0.5 % 04/05/22 05:06 Triglycerides 76 mg/dL (2-149) 03/31/22 08:00 Cholesterol 109 mg/dL (50-199) 03/31/22 08:00 LDL Cholesterol Direct 55 mg/dL (50-130) 03/31/22 08:00 HDL Cholesterol 38 mg/dL (40-59) L 03/31/22 08:00 Cholesterol/HDL Ratio 2.86 % 03/31/22 08:00 Procalcitonin 0.36 ng/mL (<0.15) 03/31/22 08:00 Urine Color Yellow (Yellow) 04/10/22 17:00 Urine Turbidity Slightly cloudy (Clear) 04/10/22 17:00 Specific [place] (Man) 1.010 (1.003-1.030) 04/10/22 17:00 Ur Protein (Man) 2+ mg/dL (Negative) 04/10/22 17:00 Ur Ketones (Man) Negative (Negative) 04/10/22 17:00 Ur Nitrite (Man) Negative (Negative) 04/10/22 17:00 Ur Reducing Substances Not Reportable 04/10/22 17:00 Urine Bilirubin (Man) Negative (Negative) 04/10/22 17:00 Urine Ictotest Not Reportable 04/10/22 17:00 Leukocyte Esterase (Man) Negative (Negative) 04/10/22 17:00 Urine WBC (Auto) 2.0 /HPF (0.0-6.0) 04/10/22 17:00 Urine RBC (Auto) 4.0 /HPF (0.0-6.0) 04/10/22 17:00 Urine Bacteria (Auto) 2+ /HPF (Negative) 04/10/22 17:00 Urine RBC (Manual) 3+ (Negative) 04/10/22 17:00 Granular Casts 6 /LPF 04/01/22 05:20 RBC Casts 7 /LPF 04/01/22 05:20 Urine Yeast (Budding) 3+ /HPF 04/10/22 17:00 Urine Creatinine 82.0 mg/dL (0.1-20.0) H 04/05/22 18:16 Urine Sodium 107 mmol/L 04/05/22 18:16 Random Vancomycin 18.2 ug/mL (0-40.0) 04/06/22 05:46 SARS-CoV-2 (PCR) Negative (Negative) 04/08/22 09:45 Hepatitis A IgM Ab Non-reactive (NonReactive) 04/13/22 14:19 Hep Bs Antigen Non-reactive (Negative) 04/13/22 14:19 Hep B Core IgM Ab Non-reactive (NonReactive) 04/13/22 14:19 Hepatitis C Antibody Non-reactive (NonReactive) 04/13/22 14:19 Blood Type O POSITIVE 04/14/22 08:44 Antibody Screen Negative 04/14/22 08:44 Crossmatch See Detail 04/14/22 08:44 Arteaga/IV: Voiding Method Condom Catheter Active Medications - Current Medications Current Medications: Generic Name Dose Route Start Last Admin Trade Name Freq PRN Reason Stop Dose Admin Acetaminophen 650 mg 03/31/22 13:31 04/18/22 05:01 Acetaminophen 325 Mg Tab PO 650 mg Q4H PRN Administration Pain MILD(1-3)/Fever >100.5/[place] Albuterol/Ipratropium 1 ampul 04/18/22 10:00 Ipratropium/Albuterol Sulfate 3 Ml Ampul.Neb IH Q4HRT [facility] Amiodarone HCl 200 mg 03/31/22 22:00 04/18/22 09:20 Amiodarone 200 Mg Tab PO 200 mg BID FRANCESCA Administration Aspirin 81 mg 04/01/22 10:00 04/18/22 09:19 Aspirin 81 Mg Tab Chew PO 81 mg QDAY FRANCESCA Administration Atorvastatin Calcium 40 mg 03/31/22 22:00 04/17/22 21:51 Atorvastatin 40 Mg Tab PO 40 mg QHS FRANCESCA Administration Dextrose 25 ml 04/15/22 00:04 Dextrose 50% In Water (25gm) 50 Ml Syringe IV Q30MIN PRN Hypoglycemia Protocol Epoetin Gordon-epbx 20,000 unit 04/14/22 15:00 Epoetin Gordon-Epbx 10,000 Unit/1 Ml Vial SUB-Q CORINNE PRN hemodialysis Folic Acid 1 mg 04/08/22 10:00 04/18/22 09:19 Folic Acid 1 Mg Tab PO 1 mg DAILY FRANCESCA Administration Heparin Sodium (Porcine) 3,000 unit 04/13/22 10:24 Heparin 10,000 Units/10 Ml Vial IV CORINNE PRN hemodialysis Sodium Chloride 100 mls @ 999 mls/hr 04/13/22 10:24 Nacl 0.9% IV CORINNE PRN Hypotension Piperacillin Sod/Tazobactam Sod 2.25 gm in 50 mls @ 100 mls/hr 04/18/22 06:00 04/18/22 06:05 Zosyn/Ns 2.25 Gm/50ml IV 100 mls/hr Q8H FRANCESCA Administration Metoprolol Tartrate 100 mg 03/31/22 22:00 04/18/22 09:19 Metoprolol Tartrate 100 Mg Tab PO 100 mg BID [facility] Administration Morphine Sulfate 2 mg 03/31/22 13:31 04/17/22 16:49 Morphine 2 Mg/1 Ml Inj IV 2 mg Q4H PRN Administration Pain, Moderate (4-6) Morphine Sulfate 4 mg 03/31/22 13:31 Morphine 4 Mg/1 Ml Inj IV Q4H PRN Pain , Severe (7-10) Ondansetron HCl 4 mg 03/31/22 13:31 Ondansetron 4 Mg/2 Ml Inj IV Q8H PRN Nausea And Vomiting Pantoprazole Sodium 40 mg 04/08/22 17:00 04/18/22 08:59 Pantoprazole 40 Mg Tab PO 40 mg BIDDIAB FRANCESCA Administration Quetiapine Fumarate 50 mg 03/31/22 22:00 04/17/22 21:50 Quetiapine 25 Mg Tab PO 50 mg QHS FRANCESCA Administration Scopolamine 1 each 04/18/22 11:00 Scopolamine Transdermal Patch 72 Hr TD Q72HR FRANCESCA Sodium Chloride 10 ml 03/31/22 22:00 04/18/22 09:21 Sodium Chloride 0.9% 10 Ml Flush Syringe IV 10 ml BID FRANCESCA Administration Tamsulosin HCl 0.4 mg 04/01/22 10:00 04/18/22 09:19 Tamsulosin 0.4 Mg Cap PO 0.4 mg QDAY FRANCESCA Administration Nutrition/Malnutrition Assess - Dietary Evaluation Nutrition/Malnutrition Findings: Nutrition Notes Start: 04/01/22 10:53 Freq: Status: Active Protocol: Document 04/15/22 12:27 [facility] (Rec: 04/15/22 12:39 [facility] [id number]) Nutrition Notes Initial or Follow up Reassessment Current Diagnosis Acute Kidney Injury,Sepsis, Heart Failure,Respiratory Failure Other Pertinent Diagnosis Pneu, UTI, acute metabolic encephalopathy, anemia Current Diet TF - Nepro at 45ml/hr Labs/Tests Na 136 K 3.5 BUN 45 Cr 6.1 Pertinent Medications 40mEq KCl Height 5 ft 9 in Weight 77 kg [place] Body Weight (kg) 72.72 BMI 25.0 Weight Status Appropriate Subjective/Other Information Pt tolerating TF at goal rate. Per [facility] evaluation on 04/14, PEG tube recommended. HD initiated on 04/13. New stage 2 sacral wound and (L) posterior buttocks wound reported 04/13. Percent of energy/protein needs met: 105% energy 95% pro Burn Absent Trauma Absent #2 Nutrition Diagnosis Altered nutrition-related laboratory values Diagnosis Progress(for reassessment Continues documentation) #1 Nutrition Diagnosis Inadequate oral intake Diagnosis Progress(for reassessment Continues documentation) Is patient on ventilator? No Is Patient Ambulatory and/or Out of Bed No REE-([facility]-confined to bed) [phone] Calculation Used for Recommendations [facility] Additional Notes Pro needs >1.2g/kg: >92g/day Fluid needs 1-1.5L/day Nutrition Intervention Nutrition Support: Continue Nepro at 45ml/hr with 200ml water flush q4h. Kcal 1,944 Protein (gm) 87 Carbohydrates (gm) 174 Fat (gm) 104 Fluid (mL) 785 Fiber (gm) 14 Goal #1 TF tolerance Goal #2 TF to provide at least 75% energy and pro needs Follow-Up By: 04/22/22 Additional Comments F/U: stable TF, wt
[2022-04-18] MEDS: IPRATROPIUM/ALBUTEROL SULFATE 3 ML AMPUL.NEB IH SCH ×5 (11:40→20:31)
--- NOTE | 2022-04-18 13:21 | Progress Note ---
Assessment and Plan 1. Acute kidney injury: Vasomotor MARIE superimposed on CKD in the setting of sepsis/CHF/A.Fib with RVR. Renal US negative. Monitor renal function. Non-oliguric. Renal prognosis is guarded. Avoid nephrotoxic agents. Meds dosage based on GFR. 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 Patient started on hemodialysis due to worsening renal function, volume overload and associated hyperkalemia. Hemodialysis: 04/13, 04/14(UF only), 04/15. HD today. 2. FEN: Volume overload, UF with HD as tolerated. Hyperkalemia, on HD, monitor. Hypernatremia, monitor. Hyperchloremic metabolic acidosis, improved, monitor. Replete lytes as needed. Monitor lytes and volume status. 3. A.fib with RVR: Amio and Metoprolol. Followed by Cards. Monitor. 4. Acute on chronic systolic congestive heart failure / Non-STEMI: LVEF 25 to 30%. Beta-blockers. Monitor. Followed by Cards. 5. HCAP / UTI / Sepsis: Off abx. 6. Acute metabolic encephalopathy, POA: H/o Dementia. Monitor. 7. Microcytic Anemia, POA: Heme positive stool. Trend. Seen by GI. 8. Bladder retention: Follow bladder scan. Subjective: Patient was seen and examined at the bedside. Nurse at the bedside, talking to ICU attending. Examination: General appearance: well-developed, appears stated age, no distress, on VM O2 HEENT: atraumatic, no icterus Neck: trachea midline Respiratory: decreased breath sounds Heart: S1S2, no murmur Abdomen: soft, bowel sounds heard, NT Integumentary: no obvious rash Neurologic: unresponsive Ext: trace ext edema Hemodialysis access: R IJ non-tunnel catheter Subjective Date of service: 04/18/22 Principal diagnosis: anemia Objective - Vital Signs Vital signs: Vital Signs - 12hr 04/18/22 04/18/22 04/18/22 04:30 04:49 05:01 Temperature 101.6 F H Pulse Rate 64 42 L Pulse Rate [ Anterior Bilateral Throughout] Pulse Rate [ Radial] Respiratory 24 24 24 Rate Respiratory Rate [Anterior Bilateral Throughout] Blood Pressure 86/55 O2 Sat by Pulse 96 Oximetry 04/18/22 04/18/22 04/18/22 06:01 08:46 08:55 Temperature Pulse Rate Pulse Rate [ 63 Anterior Bilateral Throughout] Pulse Rate [ Radial] Respiratory 19 Rate Respiratory 22 Rate [Anterior Bilateral Throughout] Blood Pressure O2 Sat by Pulse 97 Oximetry 04/18/22 04/18/22 04/18/22 09:19 09:28 11:54 Temperature Pulse Rate 110 H Pulse Rate [ 103 H Anterior Bilateral Throughout] Pulse Rate [ 112 H Radial] Respiratory 22 Rate Respiratory 22 Rate [Anterior Bilateral Throughout] Blood Pressure O2 Sat by Pulse 96 Oximetry - Lab 04/18/22 15:30 04/18/22 Unknown Most recent lab results ABG pH 7.516 pH Units (7.350-7.450) H 04/18/22 03:51 ABG pCO2 31.1 mm Hg 04/18/22 03:51 ABG pO2 44.2 mm Hg (80.0-90.0) L 04/18/22 03:51 ABG HCO3 24.6 mmol/L (20.0-26.0) 04/18/22 03:51 ABG O2 Saturation 81.8 % (95.0-99.0) L 04/18/22 03:51 Calcium 8.6 mg/dL (8.4-10.2) 04/18/22 04:24 Phosphorus 3.90 mg/dL (2.5-4.5) 04/15/22 09:41 Magnesium 1.90 mg/dL (1.7-2.3) 04/15/22 09:41 Urine Creatinine 82.0 mg/dL (0.1-20.0) H 04/05/22 18:16 Urine Sodium 107 mmol/L 04/05/22 18:16 Medications & Allergies - Medications Allergies/Adverse Reactions: Allergies lisinopril Allergy (Verified 03/31/22 07:48) Hives Home Medications: Home Medications Medication Instructions Recorded Confirmed Last Taken Type Tamsulosin [Flomax] 0.4 mg PO QDAY #7 cap 08/28/15 04/08/22 Unknown Rx AtorvaSTATin [Lipitor] 40 mg PO QHS 03/11/22 04/08/22 Unknown History metHOTREXate sodium [Methotrexate] 15 mg PO 1XW 03/11/22 04/08/22 Unknown History predniSONE 10 mg PO BID 03/16/22 04/08/22 Unknown History Amiodarone [Cordarone 200 MG TAB] 200 mg PO BID tablet 03/23/22 04/08/22 Unknown Rx Apixaban [Eliquis] 5 mg PO Q12HR tablet 03/23/22 04/08/22 Unknown Rx Aspirin [Aspirin BABY CHEW TAB] 81 mg PO QDAY tab.chew 03/23/22 04/08/22 Unknown Rx Doxazosin [Cardura] 4 mg PO QDAY tablet 03/23/22 04/08/22 Unknown Rx Famotidine [Pepcid] 20 mg PO DAILY tablet 03/23/22 04/08/22 Unknown Rx Metoprolol [Lopressor TAB] 100 mg PO BID tablet 03/23/22 04/08/22 Unknown Rx Nicotine [Habitrol] 21 mg TD QDAY patch 03/23/22 04/08/22 Unknown Rx QUEtiapine [SEROquel] 50 mg PO QHS tablet 03/23/22 04/08/22 Unknown Rx amLODIPine 10 mg PO DAILY #30 tab 03/24/22 04/08/22 Unknown Rx Active Medications: Generic Name Dose Route Start Last Admin Trade Name Freq PRN Reason Stop Dose Admin Acetaminophen 650 mg 03/31/22 13:31 04/18/22 05:01 Acetaminophen 325 Mg Tab PO 650 mg Q4H PRN Administration Pain MILD(1-3)/Fever >100.5/HILTON Albuterol/Ipratropium 1 ampul 04/18/22 10:00 04/18/22 12:07 Ipratropium/Albuterol Sulfate 3 Ml Ampul.Neb IH Not Given Q4HRT FRANCESCA Amiodarone HCl 200 mg 03/31/22 22:00 04/18/22 09:20 Amiodarone 200 Mg Tab PO 200 mg BID FRANCESCA Administration Aspirin 81 mg 04/01/22 10:00 04/18/22 09:19 Aspirin 81 Mg Tab Chew PO 81 mg QDAY FRANCESCA Administration Atorvastatin Calcium 40 mg 03/31/22 22:00 04/17/22 21:51 Atorvastatin 40 Mg Tab PO 40 mg QHS FRANCESCA Administration Dextrose 25 ml 04/15/22 00:04 Dextrose 50% In Water (25gm) 50 Ml Syringe IV Q30MIN PRN Hypoglycemia Protocol Epoetin Gordon-epbx 20,000 unit 04/14/22 15:00 Epoetin Gordon-Epbx 10,000 Unit/1 Ml Vial SUB-Q CORINNE PRN hemodialysis Folic Acid 1 mg 04/08/22 10:00 04/18/22 09:19 Folic Acid 1 Mg Tab PO 1 mg DAILY FRANCESCA Administration Heparin Sodium (Porcine) 3,000 unit 04/13/22 10:24 Heparin 10,000 Units/10 Ml Vial IV CORINNE PRN hemodialysis Sodium Chloride 100 mls @ 999 mls/hr 04/13/22 10:24 Nacl 0.9% IV CORINNE PRN Hypotension Piperacillin Sod/Tazobactam Sod 2.25 gm in 50 mls @ 100 mls/hr 04/18/22 06:00 04/18/22 06:05 Zosyn/Ns 2.25 Gm/50ml IV 100 mls/hr Q8H FRANCESCA Administration Metoprolol Tartrate 100 mg 03/31/22 22:00 04/18/22 09:19 Metoprolol Tartrate 100 Mg Tab PO 100 mg BID FRANCESCA Administration Morphine Sulfate 2 mg 03/31/22 13:31 04/17/22 16:49 Morphine 2 Mg/1 Ml Inj IV 2 mg Q4H PRN Administration Pain, Moderate (4-6) Morphine Sulfate 4 mg 03/31/22 13:31 Morphine 4 Mg/1 Ml Inj IV Q4H PRN Pain , Severe (7-10) Ondansetron HCl 4 mg 03/31/22 13:31 Ondansetron 4 Mg/2 Ml Inj IV Q8H PRN Nausea And Vomiting Pantoprazole Sodium 40 mg 04/08/22 17:00 04/18/22 08:59 Pantoprazole 40 Mg Tab PO 40 mg BIDDIAB FRANCESCA Administration Quetiapine Fumarate 50 mg 03/31/22 22:00 04/17/22 21:50 Quetiapine 25 Mg Tab PO 50 mg QHS FRANCESCA Administration Scopolamine 1 each 04/18/22 11:00 04/18/22 11:13 Scopolamine Transdermal Patch 72 Hr TD 1 each Q72HR FRANCESCA Administration Sodium Chloride 10 ml 03/31/22 22:00 04/18/22 09:21 Sodium Chloride 0.9% 10 Ml Flush Syringe IV 10 ml BID FRANCESCA Administration Tamsulosin HCl 0.4 mg 04/01/22 10:00 04/18/22 09:19 Tamsulosin 0.4 Mg Cap PO 0.4 mg QDAY FRANCESCA Administration
[2022-04-18] MEDS ORDERED: SODIUM CHLORIDE 0.9% 1000 ML 1,000 ML ONE (13:42)
--- NOTE | 2022-04-18 14:19 | Consultation ---
History of Present Illness Consult date: 04/18/22 Requesting physician: SHANTI PARR Reason for consult: hypoxemia, abnormal CXR/CT History of present illness: 67 y/o male who has been admitted for several days but recently developed a significant oxygen requirement and change in CXR, pulmonary consulted for this. Spoke with IMS this am. Patient is altered and has been for some time. Weak cough. CXR shows complete white out of left lung and CT of chest is consistent with this. Earlier admit CXR was clear on the left. Most likely this is a mucous plug. Past History Past Medical History: atrial fib, CAD, heart failure, hypertension, hyperlipidemia, renal failure, other (Dementia, BPH, cardiomyopathy) Past Surgical History: No surgical history Social history: smoking (History of tobacco use). denies: alcohol abuse, prescription drug abuse Family history: no significant family history Medications and Allergies Allergies Allergy/AdvReac Type Severity Reaction Status Date / Time lisinopril Allergy Hives Verified 03/31/22 07:48 Home Medications Medication Instructions Recorded Confirmed Last Taken Type Tamsulosin [Flomax] 0.4 mg PO QDAY #7 cap 08/28/15 04/08/22 Unknown Rx AtorvaSTATin [Lipitor] 40 mg PO QHS 03/11/22 04/08/22 Unknown History metHOTREXate sodium [Methotrexate] 15 mg PO 1XW 03/11/22 04/08/22 Unknown History predniSONE 10 mg PO BID 03/16/22 04/08/22 Unknown History Amiodarone [Cordarone 200 MG TAB] 200 mg PO BID tablet 03/23/22 04/08/22 Unknown Rx Apixaban [Eliquis] 5 mg PO Q12HR tablet 03/23/22 04/08/22 Unknown Rx Aspirin [Aspirin BABY CHEW TAB] 81 mg PO QDAY tab.chew 03/23/22 04/08/22 Unknown Rx Doxazosin [Cardura] 4 mg PO QDAY tablet 03/23/22 04/08/22 Unknown Rx Famotidine [Pepcid] 20 mg PO DAILY tablet 03/23/22 04/08/22 Unknown Rx Metoprolol [Lopressor TAB] 100 mg PO BID tablet 03/23/22 04/08/22 Unknown Rx Nicotine [Habitrol] 21 mg TD QDAY patch 03/23/22 04/08/22 Unknown Rx QUEtiapine [SEROquel] 50 mg PO QHS tablet 03/23/22 04/08/22 Unknown Rx amLODIPine 10 mg PO DAILY #30 tab 03/24/22 04/08/22 Unknown Rx Active Meds: Active Medications Acetaminophen (Acetaminophen 325 Mg Tab) 650 mg PO Q4H PRN PRN Reason: Pain MILD(1-3)/Fever >100.5/HILTON Last Admin: 04/18/22 05:01 Dose: 650 mg Albuterol/Ipratropium (Ipratropium/Albuterol Sulfate 3 Ml Ampul.Neb) 1 ampul IH Q4HRT [facility] Last Admin: 04/18/22 12:07 Dose: Not Given Amiodarone HCl (Amiodarone 200 Mg Tab) 200 mg PO BID [facility] Last Admin: 04/18/22 09:20 Dose: 200 mg Aspirin (Aspirin 81 Mg Tab Chew) 81 mg PO QDAY [facility] Last Admin: 04/18/22 09:19 Dose: 81 mg Atorvastatin Calcium (Atorvastatin 40 Mg Tab) 40 mg PO QHS [facility] Last Admin: 04/17/22 21:51 Dose: 40 mg Dextrose (Dextrose 50% In Water (25gm) 50 Ml Syringe) 25 ml IV Q30MIN PRN; Protocol PRN Reason: Hypoglycemia Epoetin Gordon-epbx (Epoetin Gordon-Epbx 10,000 Unit/1 Ml Vial) 20,000 unit SUB-Q CORINNE PRN PRN Reason: hemodialysis Folic Acid (Folic Acid 1 Mg Tab) 1 mg PO DAILY [facility] Last Admin: 04/18/22 09:19 Dose: 1 mg Heparin Sodium (Porcine) (Heparin 10,000 Units/10 Ml Vial) 3,000 unit IV CORINNE PRN PRN Reason: hemodialysis Sodium Chloride (Nacl 0.9%) 100 mls @ 999 mls/hr IV CORINNE PRN PRN Reason: Hypotension Piperacillin Sod/Tazobactam Sod (Zosyn/Ns 2.25 Gm/50ml) 2.25 gm in 50 mls @ 100 mls/hr IV Q8H [facility] Last Admin: 04/18/22 06:05 Dose: 100 mls/hr Metoprolol Tartrate (Metoprolol Tartrate 100 Mg Tab) 100 mg PO BID [facility] Last Admin: 04/18/22 09:19 Dose: 100 mg Morphine Sulfate (Morphine 2 Mg/1 Ml Inj) 2 mg IV Q4H PRN PRN Reason: Pain, Moderate (4-6) Last Admin: 04/17/22 16:49 Dose: 2 mg Morphine Sulfate (Morphine 4 Mg/1 Ml Inj) 4 mg IV Q4H PRN PRN Reason: Pain , Severe (7-10) Ondansetron HCl (Ondansetron 4 Mg/2 Ml Inj) 4 mg IV Q8H PRN PRN Reason: Nausea And Vomiting Pantoprazole Sodium (Pantoprazole 40 Mg Tab) 40 mg PO BIDDIAB [facility] Last Admin: 04/18/22 08:59 Dose: 40 mg Quetiapine Fumarate (Quetiapine 25 Mg Tab) 50 mg PO QHS [facility] Last Admin: 04/17/22 21:50 Dose: 50 mg Scopolamine (Scopolamine Transdermal Patch 72 Hr) 1 each TD Q72HR [facility] Last Admin: 04/18/22 11:13 Dose: 1 each Sodium Chloride (Sodium Chloride 0.9% 10 Ml Flush Syringe) 10 ml IV BID [facility] Last Admin: 04/18/22 09:21 Dose: 10 ml Tamsulosin HCl (Tamsulosin 0.4 Mg Cap) 0.4 mg PO QDAY [facility] Last Admin: 04/18/22 09:19 Dose: 0.4 mg Physical Examination Vital signs: Vital Signs Temp Pulse Resp BP Pulse Ox 102.8 F H 128 H 22 186/97 98 03/31/22 07:36 03/31/22 07:36 03/31/22 07:36 03/31/22 07:36 03/31/22 07:36 Results - Laboratory Findings CBC and BMP: 04/18/22 04:24 04/18/22 04:24 ABG ABG pH 7.516 pH Units (7.350-7.450) H 04/18/22 03:51 ABG pCO2 31.1 mm Hg 04/18/22 03:51 ABG pO2 44.2 mm Hg (80.0-90.0) L 04/18/22 03:51 ABG O2 Saturation 81.8 % (95.0-99.0) L 04/18/22 03:51 Abnormal lab findings: Abnormal Labs 03/31/22 03/31/22 04/01/22 08:00 08:00 08:00 WBC 15.6 H RBC 3.46 L Hgb 8.8 L Hct 28.6 L MCV 83 L MCH 26 L MCHC 31 L RDW 18.7 H Plt Count Lymph % (Auto) 4.2 L [place] % (Auto) Eos % (Auto) Lymph # (Auto) 0.7 L [place] # (Auto) 1.0 H Eos # (Auto) 0.5 H Seg Neutrophils % 85.9 H Seg Neuts % (Manual) Lymphocytes % (Manual) Eosinophils % (Manual) Seg Neutrophils # 13.4 H Seg Neutrophils # Man Lymphocytes # (Manual) ABG pH ABG pO2 ABG O2 Saturation ABG Hemoglobin Oxyhemoglobin Sodium 146 H Potassium Chloride 111.3 H 114.8 H Carbon Dioxide 11 L 17 L BUN 22 H Creatinine 2.3 H 2.0 H Glucose 55 L POC Glucose Calcium 8.3 L Troponin T 0.138 H* NT-Pro-B Natriuret Pep 04819 H Total Protein Albumin 2.8 L HDL Cholesterol 38 L Urine Creatinine Crossmatch 04/01/22 04/02/22 04/02/22 08:54 04:40 04:40 WBC 12.6 H RBC 2.81 L 2.59 L Hgb 7.4 L 6.8 L Hct 22.6 L D 20.6 L MCV 81 L 80 L MCH 26 L 26 L MCHC RDW 19.1 H 19.0 H Plt Count Lymph % (Auto) [place] % (Auto) Eos % (Auto) Lymph # (Auto) [place] # (Auto) Eos # (Auto) Seg Neutrophils % Seg Neuts % (Manual) Lymphocytes % (Manual) Eosinophils % (Manual) Seg Neutrophils # Seg Neutrophils # Man Lymphocytes # (Manual) ABG pH ABG pO2 ABG O2 Saturation ABG Hemoglobin Oxyhemoglobin Sodium Potassium Chloride 113.9 H Carbon Dioxide 17 L BUN 21 H Creatinine 2.2 H Glucose POC Glucose Calcium 8.3 L Troponin T NT-Pro-B Natriuret Pep Total Protein Albumin HDL Cholesterol Urine Creatinine Crossmatch 04/02/22 04/03/22 04/03/22 11:45 05:05 05:05 WBC RBC Hgb 7.2 L Hct 22.3 L MCV MCH MCHC RDW Plt Count Lymph % (Auto) [place] % (Auto) Eos % (Auto) Lymph # (Auto) [place] # (Auto) Eos # (Auto) Seg Neutrophils % Seg Neuts % (Manual) Lymphocytes % (Manual) Eosinophils % (Manual) Seg Neutrophils # Seg Neutrophils # Man Lymphocytes # (Manual) ABG pH ABG pO2 ABG O2 Saturation ABG Hemoglobin Oxyhemoglobin Sodium Potassium Chloride Carbon Dioxide BUN Creatinine 2.0 H Glucose POC Glucose Calcium Troponin T NT-Pro-B Natriuret Pep Total Protein Albumin HDL Cholesterol Urine Creatinine Crossmatch See Detail 04/03/22 04/04/22 04/04/22 12:29 11:38 11:38 WBC RBC Hgb 7.4 L Hct 23.3 L MCV MCH MCHC RDW Plt Count Lymph % (Auto) [place] % (Auto) Eos % (Auto) Lymph # (Auto) [place] # (Auto) Eos # (Auto) Seg Neutrophils % Seg Neuts % (Manual) Lymphocytes % (Manual) Eosinophils % (Manual) Seg Neutrophils # Seg Neutrophils # Man Lymphocytes # (Manual) ABG pH ABG pO2 ABG O2 Saturation ABG Hemoglobin Oxyhemoglobin Sodium Potassium Chloride 115.6 H Carbon Dioxide 17 L BUN 24 H Creatinine 2.3 H Glucose 67 L POC Glucose Calcium Troponin T 0.135 H* NT-Pro-B Natriuret Pep Total Protein Albumin HDL Cholesterol Urine Creatinine Crossmatch 04/05/22 04/05/22 04/05/22 05:06 05:06 18:16 WBC RBC 2.72 L Hgb 7.3 L Hct 22.4 L MCV 82 L MCH 27 L MCHC RDW 20.5 H Plt Count Lymph % (Auto) 13.2 L [place] % (Auto) 10.1 H Eos % (Auto) 6.6 H Lymph # (Auto) 1.1 L [place] # (Auto) Eos # (Auto) 0.5 H Seg Neutrophils % Seg Neuts % (Manual) 93.0 H Lymphocytes % (Manual) 2.0 L Eosinophils % (Manual) Seg Neutrophils # Seg Neutrophils # Man Lymphocytes # (Manual) 0.2 L ABG pH ABG pO2 ABG O2 Saturation ABG Hemoglobin Oxyhemoglobin Sodium Potassium Chloride 118.6 H Carbon Dioxide 17 L BUN 26 H Creatinine 2.3 H Glucose POC Glucose Calcium Troponin T NT-Pro-B Natriuret Pep Total Protein 5.8 L Albumin 2.0 L HDL Cholesterol Urine Creatinine 82.0 H Crossmatch 04/05/22 04/06/22 04/07/22 22:03 05:46 08:20 WBC RBC Hgb Hct MCV MCH MCHC RDW Plt Count Lymph % (Auto) [place] % (Auto) Eos % (Auto) Lymph # (Auto) [place] # (Auto) Eos # (Auto) Seg Neutrophils % Seg Neuts % (Manual) Lymphocytes % (Manual) Eosinophils % (Manual) Seg Neutrophils # Seg Neutrophils # Man Lymphocytes # (Manual) ABG pH ABG pO2 ABG O2 Saturation ABG Hemoglobin Oxyhemoglobin Sodium 149 H Potassium Chloride 117.4 H 118.1 H Carbon Dioxide 16 L 19 L BUN 28 H 30 H Creatinine 2.9 H 3.2 H Glucose 72 L POC Glucose 108 H Calcium Troponin T NT-Pro-B Natriuret Pep Total Protein Albumin HDL Cholesterol Urine Creatinine Crossmatch 04/08/22 04/08/22 04/09/22 04:47 21:43 04:30 WBC RBC 2.82 L Hgb 7.4 L Hct 23.0 L MCV 82 L MCH 26 L MCHC RDW 20.8 H Plt Count Lymph % (Auto) [place] % (Auto) Eos % (Auto) 9.0 H Lymph # (Auto) [place] # (Auto) Eos # (Auto) 0.6 H Seg Neutrophils % Seg Neuts % (Manual) Lymphocytes % (Manual) Eosinophils % (Manual) Seg Neutrophils # Seg Neutrophils # Man Lymphocytes # (Manual) ABG pH ABG pO2 ABG O2 Saturation ABG Hemoglobin Oxyhemoglobin Sodium 148 H Potassium Chloride 118.5 H Carbon Dioxide 20 L BUN 32 H Creatinine 3.2 H Glucose POC Glucose 136 H Calcium Troponin T NT-Pro-B Natriuret Pep Total Protein Albumin HDL Cholesterol Urine Creatinine Crossmatch 04/09/22 04/09/22 04/09/22 04:30 11:16 22:10 WBC RBC Hgb Hct MCV MCH MCHC RDW Plt Count Lymph % (Auto) [place] % (Auto) Eos % (Auto) Lymph # (Auto) [place] # (Auto) Eos # (Auto) Seg Neutrophils % Seg Neuts % (Manual) Lymphocytes % (Manual) Eosinophils % (Manual) Seg Neutrophils # Seg Neutrophils # Man Lymphocytes # (Manual) ABG pH ABG pO2 ABG O2 Saturation ABG Hemoglobin Oxyhemoglobin Sodium 149 H Potassium Chloride 119.2 H Carbon Dioxide 20 L BUN 35 H Creatinine 4.1 H Glucose POC Glucose 120 H 111 H Calcium Troponin T NT-Pro-B Natriuret Pep Total Protein Albumin HDL Cholesterol Urine Creatinine Crossmatch 04/10/22 04/10/22 04/11/22 04:19 12:06 13:55 WBC RBC 3.05 L Hgb 7.8 L Hct 24.7 L MCV 81 L MCH 26 L MCHC RDW 20.9 H Plt Count Lymph % (Auto) 12.1 L [place] % (Auto) Eos % (Auto) 6.1 H Lymph # (Auto) 0.7 L [place] # (Auto) Eos # (Auto) Seg Neutrophils % 79.1 H Seg Neuts % (Manual) Lymphocytes % (Manual) Eosinophils % (Manual) Seg Neutrophils # Seg Neutrophils # Man Lymphocytes # (Manual) ABG pH ABG pO2 ABG O2 Saturation ABG Hemoglobin Oxyhemoglobin Sodium Potassium Chloride 115.5 H Carbon Dioxide 20 L BUN 38 H Creatinine 4.0 H Glucose 101 H POC Glucose 113 H Calcium Troponin T NT-Pro-B Natriuret Pep Total Protein Albumin HDL Cholesterol Urine Creatinine Crossmatch 04/11/22 04/12/22 04/12/22 13:55 04:40 04:40 WBC RBC 2.75 L Hgb 6.9 L Hct 22.1 L MCV 80 L MCH 25 L MCHC 31 L RDW 20.5 H Plt Count Lymph % (Auto) 11.3 L [place] % (Auto) Eos % (Auto) 4.8 H Lymph # (Auto) 0.9 L [place] # (Auto) Eos # (Auto) Seg Neutrophils % 81.3 H Seg Neuts % (Manual) Lymphocytes % (Manual) Eosinophils % (Manual) Seg Neutrophils # Seg Neutrophils # Man Lymphocytes # (Manual) ABG pH ABG pO2 ABG O2 Saturation ABG Hemoglobin Oxyhemoglobin Sodium Potassium 5.8 H 5.4 H Chloride 110.9 H 111.6 H Carbon Dioxide BUN 48 H 51 H Creatinine 5.3 H 5.8 H Glucose 110 H POC Glucose Calcium Troponin T NT-Pro-B Natriuret Pep Total Protein Albumin HDL Cholesterol Urine Creatinine Crossmatch 04/12/22 04/12/22 04/13/22 15:12 23:27 06:02 WBC RBC Hgb Hct MCV MCH MCHC RDW Plt Count Lymph % (Auto) [place] % (Auto) Eos % (Auto) Lymph # (Auto) [place] # (Auto) Eos # (Auto) Seg Neutrophils % Seg Neuts % (Manual) Lymphocytes % (Manual) Eosinophils % (Manual) Seg Neutrophils # Seg Neutrophils # Man Lymphocytes # (Manual) ABG pH ABG pO2 ABG O2 Saturation ABG Hemoglobin Oxyhemoglobin Sodium Potassium Chloride 110.6 H Carbon Dioxide BUN 54 H Creatinine 5.9 H Glucose POC Glucose 109 H 111 H Calcium Troponin T NT-Pro-B Natriuret Pep Total Protein Albumin HDL Cholesterol Urine Creatinine Crossmatch 04/13/22 04/13/22 04/13/22 14:19 14:19 23:50 WBC 4.4 L RBC 2.75 L Hgb 7.0 L Hct 22.4 L MCV 81 L MCH 25 L MCHC 31 L RDW 20.9 H Plt Count Lymph % (Auto) [place] % (Auto) Eos % (Auto) 10.7 H Lymph # (Auto) 1.0 L [place] # (Auto) Eos # (Auto) 0.5 H Seg Neutrophils % Seg Neuts % (Manual) Lymphocytes % (Manual) Eosinophils % (Manual) Seg Neutrophils # Seg Neutrophils # Man Lymphocytes # (Manual) ABG pH ABG pO2 ABG O2 Saturation ABG Hemoglobin Oxyhemoglobin Sodium 146 H Potassium Chloride 111.2 H Carbon Dioxide BUN 62 H Creatinine 6.6 H Glucose POC Glucose 118 H Calcium Troponin T NT-Pro-B Natriuret Pep Total Protein Albumin HDL Cholesterol Urine Creatinine Crossmatch 04/14/22 04/14/22 04/14/22 04:50 04:50 08:44 WBC 3.5 L RBC 2.70 L Hgb 6.6 L Hct 21.6 L MCV 80 L MCH 25 L MCHC 31 L RDW 21.2 H Plt Count Lymph % (Auto) [place] % (Auto) Eos % (Auto) Lymph # (Auto) [place] # (Auto) Eos # (Auto) Seg Neutrophils % Seg Neuts % (Manual) 73.0 H Lymphocytes % (Manual) Eosinophils % (Manual) 5.0 H Seg Neutrophils # Seg Neutrophils # Man Lymphocytes # (Manual) 0.7 L ABG pH ABG pO2 ABG O2 Saturation ABG Hemoglobin Oxyhemoglobin Sodium Potassium Chloride Carbon Dioxide BUN 34 H Creatinine 4.3 H Glucose 107 H POC Glucose Calcium 7.8 L Troponin T NT-Pro-B Natriuret Pep Total Protein Albumin HDL Cholesterol Urine Creatinine Crossmatch See Detail 09/09/22 09/09/22 09/09/22 09:41 09:41 22:22 WBC RBC 3.03 L Hgb 8.0 L Hct 24.8 L MCV 82 L MCH 26 L MCHC RDW 19.8 H Plt Count Lymph % (Auto) 11.8 L [place] % (Auto) Eos % (Auto) 5.4 H Lymph # (Auto) 0.9 L [place] # (Auto) Eos # (Auto) Seg Neutrophils % 80.1 H Seg Neuts % (Manual) Lymphocytes % (Manual) Eosinophils % (Manual) Seg Neutrophils # Seg Neutrophils # Man Lymphocytes # (Manual) ABG pH ABG pO2 ABG O2 Saturation ABG Hemoglobin Oxyhemoglobin Sodium 136 L Potassium 3.5 L Chloride Carbon Dioxide BUN 45 H Creatinine 6.1 H Glucose 106 H POC Glucose 123 H Calcium Troponin T NT-Pro-B Natriuret Pep Total Protein Albumin HDL Cholesterol Urine Creatinine Crossmatch 04/16/22 04/16/22 04/16/22 04:55 04:55 16:44 WBC RBC 3.02 L Hgb 7.9 L Hct 24.2 L MCV 80 L MCH 26 L MCHC RDW 19.9 H Plt Count 128 L Lymph % (Auto) 11.1 L [place] % (Auto) Eos % (Auto) Lymph # (Auto) 0.8 L [place] # (Auto) Eos # (Auto) Seg Neutrophils % 84.8 H Seg Neuts % (Manual) Lymphocytes % (Manual) Eosinophils % (Manual) Seg Neutrophils # Seg Neutrophils # Man Lymphocytes # (Manual) ABG pH ABG pO2 ABG O2 Saturation ABG Hemoglobin Oxyhemoglobin Sodium Potassium Chloride Carbon Dioxide BUN 27 H Creatinine 4.3 H Glucose 126 H POC Glucose 120 H Calcium Troponin T NT-Pro-B Natriuret Pep Total Protein Albumin HDL Cholesterol Urine Creatinine Crossmatch 04/16/22 04/17/22 04/17/22 23:37 06:03 06:03 WBC 11.2 H RBC 3.37 L Hgb 8.6 L Hct 27.5 L MCV 82 L MCH 26 L MCHC 31 L RDW 20.4 H Plt Count 121 L Lymph % (Auto) [place] % (Auto) Eos % (Auto) Lymph # (Auto) [place] # (Auto) Eos # (Auto) Seg Neutrophils % Seg Neuts % (Manual) 96.0 H Lymphocytes % (Manual) 3.0 L Eosinophils % (Manual) Seg Neutrophils # Seg Neutrophils # Man 10.8 H Lymphocytes # (Manual) 0.3 L ABG pH ABG pO2 ABG O2 Saturation ABG Hemoglobin Oxyhemoglobin Sodium 135 L Potassium Chloride 94.7 L Carbon Dioxide BUN 50 H Creatinine 5.6 H Glucose POC Glucose 125 H Calcium Troponin T NT-Pro-B Natriuret Pep Total Protein Albumin HDL Cholesterol Urine Creatinine Crossmatch 04/18/22 04/18/22 04/18/22 03:51 04:24 04:24 WBC RBC 2.96 L Hgb 7.8 L Hct 23.3 L MCV 79 L MCH 26 L MCHC RDW 20.6 H Plt Count 97 L Lymph % (Auto) 10.2 L [place] % (Auto) Eos % (Auto) Lymph # (Auto) 0.5 L [place] # (Auto) Eos # (Auto) Seg Neutrophils % 86.5 H Seg Neuts % (Manual) Lymphocytes % (Manual) Eosinophils % (Manual) Seg Neutrophils # Seg Neutrophils # Man Lymphocytes # (Manual) ABG pH 7.516 H ABG pO2 44.2 L ABG O2 Saturation 81.8 L ABG Hemoglobin 8.6 L Oxyhemoglobin 80.1 L Sodium Potassium 5.1 H Chloride 96.5 L Carbon Dioxide BUN 70 H Creatinine 6.9 H Glucose POC Glucose Calcium Troponin T NT-Pro-B Natriuret Pep Total Protein Albumin HDL Cholesterol Urine Creatinine Crossmatch - Diagnostic Findings Chest x-ray: image reviewed CT scan - chest: image reviewed Assessment and Plan 67 y/o male with acute respiratory failure secondary to what is most likely a mucous plug 1. ordered CTP with nebs multiple times daily 2. NT suction at least qshift 3. Vest therapy if available 4. Suggest putting left lung down until clear, nursing can wedge patient to that side 5. Guarded prognosis.
[2022-04-18] MEDS ORDERED: DOPamine 800 MG/D5W 250ML 800 MG/250 ML BAG IV ONE (14:47)
[2022-04-18] MEDS ORDERED: SODIUM BICARB 8.4% 50 MEQ/50 ML SYRINGE IV ONE ×2 (14:49→15:00)
[2022-04-18] MEDS ORDERED: LIDOCAINE (1%) 10 MG/1 ML VIAL 20 ML MDV ONE (14:50)
[2022-04-18] MEDS: NORepinephrine/NS 8 MG-250 ML 8 MG/250 ML INFUS..BTL IV SCH ×3 (14:50→22:43)
[2022-04-18] MEDS ORDERED: SODIUM CHLORIDE IRRI 1000 ML 1,000 ML IR ONE (14:51)
[2022-04-18] MEDS ORDERED: EPINEPHrine 1 MG/10 ML SYRINGE ONE (15:00)
[2022-04-18] MEDS ORDERED: ATROPINE 0.1% (1 MG/10 ML) CARDIAC SYRINGE IV ONE (15:00)
[2022-04-18] MEDS ORDERED: DOPamine 800 MG/D5W 250ML 800 MG/250 ML BAG IV SCH (15:00)
[2022-04-18] MEDS ORDERED: LIDOCAINE (1%) 10 MG/1 ML VIAL 20 ML MDV INFILTRATI ONE (15:00)
[2022-04-18] MEDS ORDERED: SODIUM CHLORIDE 0.9% IRR 1,000 ML BOTTLE IR ONE (15:00)
[2022-04-18] MEDS: VASOPRESSIN 20 UNIT in SODIUM CHLORIDE 0.9% 100 ML IV SCH ×2 (15:05→22:44)
[2022-04-18] MEDS ORDERED: MINERAL OIL/PETROLATUM, WHITE OPHTH OINT 3.5 GM OU PRN (15:23)
[2022-04-18] MEDS ORDERED: LIP THERAPY VASELINE TP PRN (15:23)
--- NOTE | 2022-04-18 15:35 | Procedure Note ---
Date of procedure: 04/18/22 Pre-op diagnosis: Acute hypoxemic respiratory failure Post-op diagnosis: same Procedure: Intubation with glide scope. The glide scope was utilized to insert size 7.5 endotracheal tube into the patient's airway without difficulty. Anesthesia: none Surgeon: ASA JAIMES Estimated blood loss: none Condition: critical Disposition: ICU
[2022-04-18] MEDS ORDERED: SODIUM CHLORIDE 0.9% 500 ML 500 ML IV ONE (15:36)
--- NOTE | 2022-04-18 15:36 | Procedure Note ---
Date of procedure: 04/18/22 Pre-op diagnosis: Acute hypoxemic respiratory failure Post-op diagnosis: same Procedure: Right femoral vein triple-lumen catheter placed under ultrasound guidance After informed consent was obtained a timeout was taken with the patient's nurse at bedside to verify the correct patient the correct procedure and the correct operative site. The patient was prepped and draped in the usual sterile fashion. Local anesthesia obtained with 1% lidocaine. Ultrasound was utilized to localize the right femoral vein without difficulty. The Seldinger technique was utilized to access the right femoral vein with a seeker needle under ultrasound guidance without difficulty. A guidewire was advanced via the seeker needle into the right femoral vein and the seeker needle subsequently removed over the guidewire. A scalpel was used to incise the skin at the insertion site. A dilator was then passed over the guidewire into the right femoral vein and subsequently removed. A preflush triple-lumen catheter was then advanced over the guidewire into the right femoral vein and the guidewire subsequently removed. All 3 ports flush and drawl with ease. 3-0 silk suture was utilized to suture the line in place. A Biopatch was placed at the insertion site. A sterile dressing was utilized to cover the right femoral vein triple-lumen catheter. Estimated blood loss minimal. Complications none. Specimens none. Anesthesia: local Surgeon: ASA JAIMES Estimated blood loss: minimal Condition: critical Disposition: ICU
--- NOTE | 2022-04-18 15:36 | Event Note ---
I was notified by nursing staff that the patient was found to be in respiratory distress. I presented the patient bedside the patient was found to have a pulse oximetry in the 70s while on high flow supplemental oxygen as well as a systolic blood pressure in the 40s. Patient treated with IV fluid resuscitation therapy with mild improvement in symptoms. Patient was found to be unable to protect his airway. Patient treated with supportive care, intubated and placed on ventilatory support and transferred to ICU for further care. Patient family notified and informed of patient poor prognosis and suspected development of multiple organ dysfunction syndrome. Advanced care planning conducted. The high probability of a clinically significant, sudden or life threatening deterioration of the [cardiac, pulmonary, renal, neuro, infectious disease] system(s) required my full and direct attention, intervention and personal management. The aggregate critical care time was [95] minutes. This time is in addition to time spent performing reported procedures but includes the following: [x] Data Review and interpretation [x] Patient assessment and monitoring of vital signs [x] Documentation [x] Medication orders and management
[2022-04-18] MEDS ORDERED: PHENYLEPHRINE 50 MG in SODIUM CHLORIDE 0.9% 245 ML IV SCH (15:45)
--- NOTE | 2022-04-18 15:46 | Event Note ---
Date: 04/18/22 Patient intubated and transferred to the unit. Unresponsive, hypotensive. Started on pressors. Did lose pulse and coded for about 3 minutes. ROSC achieved and now on 4 pressors but still with marginal BP's and sats. Remains unresponsive. I did bronch him once slightly more stable. Mucous removed but not a large amount. Sats appear to be soley dependent on blood pressure. H/H back and at 12/21. Type and screen for 4 units but will start with 2. IMS spoke with family while I was at bedside. They have been briefed on the severity of the situation. Remains full code. Overall prognosis is very very guarded to poor. CCT 31 minutes.
[2022-04-18 15:56] LABS: Hemoglobin 6.2 gm/dl (11.8-15.2); Red Blood Count 2.42 M/mm3 (3.65-5.03)
[2022-04-18 15:57] LABS: Mean Corpuscular HGB Conc 31 % (32-34); Mean Corpuscular Volume 82 fl (84-94); Platelet Count 82 K/mm3 (140-440); Red Cell Distribution Width 20.8 % (13.2-15.2)
[2022-04-18 15:58] LABS: Hematocrit 19.8 % (35.5-45.6)
[2022-04-18] MEDS ORDERED: EPINEPHrine 1 MG/1 ML 8 MG in SODIUM CHLORIDE 0.9% 250ML 242 ML IV SCH (16:00)
[2022-04-18 16:10] LABS: Calcium 6.6 mg/dL (8.4-10.2)
[2022-04-18 18:14] LABS: ABG Base Excess -0.2 mmol/L (-2.0-3.0); ABG HCO3 24.7 mmol/L (20.0-26.0); ABG Methemoglobin 0.4 % (0.0-1.5); ABG Oxygen Saturation 96.9 % (95.0-99.0); ABG PCO2 41.1 mm Hg; ABG PH 7.396 pH Units (7.350-7.450); ABG PO2 84.5 mm Hg (80.0-90.0)
--- NOTE | 2022-04-18 18:52 | Event Note ---
Date: 04/18/22 Patient's family present in the hospital, a total of 8 siblings. After thorough discussion among themselves they opted for AND/DNR status. Consent was signed, witnessed and placed in the chart. Status changed in the chart.
--- NOTE | 2022-04-18 19:14 | XRay Report ---
CHEST 1 VIEW INDICATION: ETT placement. COMPARISON: Earlier today FINDINGS: SUPPORT DEVICES: Endotracheal tube tip just below the level the clavicles. Otherwise stable satisfact ory support device positioning. HEART: Mild cardiomegaly. LUNGS/PLEURA: Significantly improved aeration throughout the left lung with trace residual left-sided pleural effusion and mild patchy airspace disease throughout the left lung and in the medial right l ower lobe. No pneumothorax. ADDITIONAL FINDINGS: None. IMPRESSION: 1. Support devices and lung findings as above. Signer Name: Beto Jensen MD Signed: 04/18/2022 7:10 PM Workstation Name: [id number]
[2022-04-18] MEDS ORDERED: fentaNYL 100 MCG/2 ML INJ IV PRN (19:20)
[2022-04-18] MEDS: SENNOSIDES/DOCUSATE SODIUM 8.6/50 MG TAB FEEDTUBE SCH (21:32)
[2022-04-18] MEDS: QUEtiapine 25 MG TAB PO SCH (21:32)
[2022-04-18] MEDS: fentaNYL DRIP Premix 1,000 MCG/100 ML BAG IV SCH (23:20)
[2022-04-19] MEDS: PIPERACIL-TAZO 2.25 GM/50 ML 2.25 GM/50 ML BAG IV SCH ×4 (00:26→21:29)
[2022-04-19] MEDS: IPRATROPIUM/ALBUTEROL SULFATE 3 ML AMPUL.NEB IH SCH ×8 (00:32→23:50)
[2022-04-19 00:35] LABS: Hematocrit 26.7 % (35.5-45.6); Hemoglobin 8.5 gm/dl (11.8-15.2); Mean Corpuscular HGB Conc 32 % (32-34); Mean Corpuscular Volume 84 fl (84-94); Red Blood Count 3.19 M/mm3 (3.65-5.03)
[2022-04-19 00:37] LABS: Platelet Count 66 K/mm3 (140-440); Red Cell Distribution Width 20.4 % (13.2-15.2)
[2022-04-19 01:36] LABS: Basophils % (Manual) 0 % (0.0-1.8); Eosinophils % (Manual) 0 % (0.0-4.3); Total Cells Counted 50
[2022-04-19 01:37] LABS: Anisocytosis 1+; Platelet Estimate Consistent w Auto
[2022-04-19] MEDS: NORepinephrine/NS 8 MG-250 ML 8 MG/250 ML INFUS..BTL IV SCH ×3 (02:45→19:38)
[2022-04-19] MEDS ORDERED: EPINEPHrine 1 MG/10 ML SYRINGE ONE (05:00)
[2022-04-19 05:07] LABS: Calcium 7.1 mg/dL (8.4-10.2)
[2022-04-19 05:23] LABS: ABG Base Excess -5.9 mmol/L (-2.0-3.0); ABG HCO3 19.1 mmol/L (20.0-26.0); ABG Methemoglobin 0.5 % (0.0-1.5); ABG Oxygen Saturation 99.6 % (95.0-99.0); ABG PCO2 35.2 mm Hg; ABG PH 7.352 pH Units (7.350-7.450)
[2022-04-19 05:27] LABS: ABG PO2 424.1 mm Hg (80.0-90.0)
[2022-04-19] MEDS ORDERED: INSULIN REGULAR, HUMAN 100 UNITS/1 ML IV ONE (06:10)
[2022-04-19] MEDS ORDERED: DEXTROSE 50% IN WATER (25GM) 50 ML SYRINGE IV ONE (06:10)
--- NOTE | 2022-04-19 08:39 | Progress Note ---
Assessment and Plan 1. Acute kidney injury: Vasomotor MARIE superimposed on CKD in the setting of sepsis/CHF/A.Fib with RVR. Renal US negative. Monitor renal function. Non-oliguric. Renal prognosis is guarded. Avoid nephrotoxic agents. Meds dosage based on GFR. Monitor for [employer] needs. Patient started on hemodialysis due to worsening renal function, volume overload and associated hyperkalemia. Hemodialysis: 04/13, 04/14(UF only), 04/15. Unable to do HD today due to unstable hemodynamics. 2. FEN: Volume overload, UF with HD as tolerated. Hyperkalemia, improved, monitor. Hypernatremia, monitor. Hyperchloremic metabolic acidosis, improved, monitor. Replete lytes as needed. Monitor lytes and volume status. 3. A.fib with RVR: Followed by Cards. Monitor. 4. Acute on chronic systolic congestive heart failure / Non-STEMI: LVEF 25 to 30%. Monitor. Followed by Cards. 5. Shock: Currently on 2 pressors. 6. Resp failure: Currently on vent. 7. HCAP / UTI / Sepsis: Off abx. 8. Acute metabolic encephalopathy, POA: H/o Dementia. Monitor. 9. Microcytic Anemia, POA: Heme positive stool. Trend. Seen by GI. 10. Bladder retention: Follow bladder scan. Subjective: Patient was seen and examined at the bedside. Examination: General appearance: well-developed, appears stated age, no distress, intubated, on vent HEENT: atraumatic, no icterus Neck: trachea midline Respiratory: coarse breath sounds Heart: S1S2, no murmur Abdomen: soft, bowel sounds heard, NT Integumentary: no obvious rash Neurologic: unresponsive Ext: trace ext edema Hemodialysis access: R IJ non-tunnel catheter Subjective Date of service: 04/19/22 Principal diagnosis: anemia Objective - Vital Signs Vital signs: Vital Signs - 12hr 04/18/22 04/18/22 04/18/22 20:40 20:50 21:00 Temperature 101 F H Pulse Rate 188 H 155 H 110 H Pulse Rate [ From Monitor] Respiratory 35 H 32 H 28 H Rate Blood Pressure 102/78 96/62 99/69 O2 Sat by Pulse 78 L 100 Oximetry 04/18/22 04/18/22 04/18/22 21:10 21:17 21:19 Temperature 100.5 F H 100.5 F H Pulse Rate 162 H Pulse Rate [ From Monitor] Respiratory 35 H Rate Blood Pressure 85/64 O2 Sat by Pulse Oximetry 04/18/22 04/18/22 04/18/22 21:20 21:30 21:33 Temperature Pulse Rate 117 H 149 H 135 H Pulse Rate [ From Monitor] Respiratory 27 H 32 H Rate Blood Pressure 112/76 103/67 103/67 O2 Sat by Pulse 99 100 Oximetry 04/18/22 04/18/22 04/18/22 21:40 21:50 21:53 Temperature 99.8 F H Pulse Rate 142 H 109 H Pulse Rate [ From Monitor] Respiratory 32 H 30 H Rate Blood Pressure 103/67 121/70 O2 Sat by Pulse 98 100 Oximetry 04/18/22 04/18/22 04/18/22 22:00 22:10 22:20 Temperature 99.8 F H Pulse Rate 109 H 134 H 143 H Pulse Rate [ 140 H From Monitor] Respiratory 34 H 33 H 34 H Rate Blood Pressure 121/70 124/85 103/67 O2 Sat by Pulse 98 100 100 Oximetry 04/18/22 04/18/22 04/18/22 22:30 22:40 22:50 Temperature Pulse Rate 140 H 134 H 144 H Pulse Rate [ From Monitor] Respiratory 36 H 35 H 32 H Rate Blood Pressure 127/91 124/94 129/80 O2 Sat by Pulse 100 100 Oximetry 04/18/22 04/18/22 04/18/22 23:00 23:10 23:18 Temperature Pulse Rate 138 H 133 H 133 H Pulse Rate [ From Monitor] Respiratory 22 30 H 25 H Rate Blood Pressure 139/83 113/98 113/98 O2 Sat by Pulse 100 Oximetry 04/18/22 04/18/22 04/18/22 23:20 23:28 23:30 Temperature 99.9 F H Pulse Rate 133 H 137 H 132 H Pulse Rate [ From Monitor] Respiratory 31 H 24 Rate Blood Pressure 113/98 151/97 O2 Sat by Pulse 100 100 Oximetry 04/18/22 04/18/22 04/19/22 23:40 23:50 00:00 Temperature Pulse Rate 133 H 131 H 132 H Pulse Rate [ From Monitor] Respiratory 30 H 31 H 33 H Rate Blood Pressure 143/87 145/95 145/95 O2 Sat by Pulse 100 100 Oximetry 09/04/19/22 04/19/22 00:10 00:20 00:30 Temperature Pulse Rate 132 H 100 H 139 H Pulse Rate [ From Monitor] Respiratory 31 H 29 H 31 H Rate Blood Pressure 141/87 150/90 153/85 O2 Sat by Pulse 100 100 100 Oximetry 04/19/22 04/19/22 04/19/22 00:31 00:35 00:40 Temperature Pulse Rate 99 H 98 H 96 H Pulse Rate [ From Monitor] Respiratory 19 31 H Rate Blood Pressure 146/84 146/84 O2 Sat by Pulse 100 94 Oximetry 04/19/22 04/19/22 04/19/22 00:45 00:50 01:00 Temperature 98.6 F Pulse Rate 94 H 135 H Pulse Rate [ From Monitor] Respiratory 31 H 31 H Rate Blood Pressure 151/82 151/82 O2 Sat by Pulse 99 96 Oximetry 04/19/22 04/19/22 04/19/22 01:10 01:20 01:30 Temperature Pulse Rate 93 H 93 H 110 H Pulse Rate [ From Monitor] Respiratory 32 H 31 H 36 H Rate Blood Pressure 151/97 144/84 144/84 O2 Sat by Pulse 100 100 100 Oximetry 04/19/22 04/19/22 04/19/22 01:40 01:50 02:00 Temperature 98.4 F Pulse Rate 100 H 90 92 H Pulse Rate [ 90 From Monitor] Respiratory 22 27 H 31 H Rate Blood Pressure 143/96 135/82 143/81 O2 Sat by Pulse 93 100 98 Oximetry 04/19/22 04/19/22 04/19/22 02:10 02:20 02:30 Temperature Pulse Rate 90 93 H 87 Pulse Rate [ From Monitor] Respiratory 32 H 28 H 32 H Rate Blood Pressure 148/79 152/84 135/79 O2 Sat by Pulse 100 100 100 Oximetry 04/19/22 04/19/22 04/19/22 02:40 02:50 03:00 Temperature Pulse Rate 89 90 90 Pulse Rate [ From Monitor] Respiratory 30 H 30 H 30 H Rate Blood Pressure 143/81 138/75 148/78 O2 Sat by Pulse 100 100 100 Oximetry 04/19/22 04/19/22 04/19/22 03:07 03:10 03:20 Temperature 99 F Pulse Rate 134 H 128 H Pulse Rate [ From Monitor] Respiratory 32 H 21 Rate Blood Pressure 144/83 133/76 O2 Sat by Pulse 100 100 Oximetry 04/19/22 04/19/22 04/19/22 03:30 03:40 03:50 Temperature Pulse Rate 88 87 90 Pulse Rate [ From Monitor] Respiratory 30 H 29 H 30 H Rate Blood Pressure 135/78 135/74 137/80 O2 Sat by Pulse 100 100 100 Oximetry 04/19/22 04/19/22 04/19/22 04:00 04:10 04:20 Temperature Pulse Rate 89 89 87 Pulse Rate [ From Monitor] Respiratory 30 H 30 H 29 H Rate Blood Pressure 138/76 130/73 123/74 O2 Sat by Pulse 100 100 100 Oximetry 04/19/22 04/19/22 04/19/22 04:30 04:40 04:45 Temperature Pulse Rate 89 89 89 Pulse Rate [ From Monitor] Respiratory 28 H 30 H 15 Rate Blood Pressure 115/71 110/77 110/77 O2 Sat by Pulse 100 100 Oximetry 04/19/22 04/19/22 04/19/22 04:50 05:00 05:10 Temperature Pulse Rate 87 90 88 Pulse Rate [ From Monitor] Respiratory 28 H 30 H 30 H Rate Blood Pressure 128/75 119/73 117/72 O2 Sat by Pulse 100 100 Oximetry 04/19/22 04/19/22 04/19/22 05:20 05:30 05:34 Temperature 98.6 F Pulse Rate 88 89 Pulse Rate [ 88 From Monitor] Respiratory 27 H 28 H 31 H Rate Blood Pressure 124/68 116/71 O2 Sat by Pulse 100 100 100 Oximetry 04/19/22 04/19/22 04/19/22 05:40 05:50 05:59 Temperature Pulse Rate 86 87 Pulse Rate [ From Monitor] Respiratory 28 H 29 H Rate Blood Pressure 118/74 115/69 O2 Sat by Pulse 100 100 100 Oximetry 04/19/22 04/19/22 04/19/22 06:00 06:10 06:20 Temperature Pulse Rate 89 88 93 H Pulse Rate [ From Monitor] Respiratory 30 H 28 H 20 Rate Blood Pressure 113/72 109/74 124/76 O2 Sat by Pulse 100 100 Oximetry 04/19/22 04/19/22 07:13 08:18 Temperature 98.6 F Pulse Rate Pulse Rate [ From Monitor] Respiratory Rate Blood Pressure O2 Sat by Pulse 100 Oximetry - Lab 04/18/22 23:20 04/19/22 09:50 Most recent lab results ABG pH 7.352 pH Units (7.350-7.450) 04/19/22 04:45 ABG pCO2 35.2 mm Hg 04/19/22 04:45 ABG pO2 424.1 mm Hg (80.0-90.0) H 04/19/22 04:45 ABG HCO3 19.1 mmol/L (20.0-26.0) L 04/19/22 04:45 ABG O2 Saturation 99.6 % (95.0-99.0) H 04/19/22 04:45 Calcium 7.1 mg/dL (8.4-10.2) L 04/19/22 04:24 Phosphorus 6.10 mg/dL (2.5-4.5) H 04/18/22 Unknown Magnesium 1.80 mg/dL (1.7-2.3) 04/18/22 Unknown Urine Creatinine 82.0 mg/dL (0.1-20.0) H 04/05/22 18:16 Urine Sodium 107 mmol/L 04/05/22 18:16 Medications & Allergies - Medications Allergies/Adverse Reactions: Allergies lisinopril Allergy (Verified 03/31/22 07:48) Hives Home Medications: Home Medications Medication Instructions Recorded Confirmed Last Taken Type Tamsulosin [Flomax] 0.4 mg PO QDAY #7 cap 08/28/15 04/08/22 Unknown Rx AtorvaSTATin [Lipitor] 40 mg PO QHS 03/11/22 04/08/22 Unknown History metHOTREXate sodium [Methotrexate] 15 mg PO 1XW 03/11/22 04/08/22 Unknown History predniSONE 10 mg PO BID 03/16/22 04/08/22 Unknown History Amiodarone [Cordarone 200 MG TAB] 200 mg PO BID tablet 03/23/22 04/08/22 Unknown Rx Apixaban [Eliquis] 5 mg PO Q12HR tablet 03/23/22 04/08/22 Unknown Rx Aspirin [Aspirin BABY CHEW TAB] 81 mg PO QDAY tab.chew 03/23/22 04/08/22 Unknown Rx Doxazosin [Cardura] 4 mg PO QDAY tablet 03/23/22 04/08/22 Unknown Rx Famotidine [Pepcid] 20 mg PO DAILY tablet 03/23/22 04/08/22 Unknown Rx Metoprolol [Lopressor TAB] 100 mg PO BID tablet 03/23/22 04/08/22 Unknown Rx Nicotine [Habitrol] 21 mg TD QDAY patch 03/23/22 04/08/22 Unknown Rx QUEtiapine [SEROquel] 50 mg PO QHS tablet 03/23/22 04/08/22 Unknown Rx amLODIPine 10 mg PO DAILY #30 tab 03/24/22 04/08/22 Unknown Rx Active Medications: Generic Name Dose Route Start Last Admin Trade Name Freq PRN Reason Stop Dose Admin Acetaminophen 650 mg 03/31/22 13:31 04/18/22 20:09 Acetaminophen 325 Mg Tab PO 650 mg Q4H PRN Administration Pain MILD(1-3)/Fever >100.5/HILTON Albuterol/Ipratropium 1 ampul 04/18/22 10:00 04/19/22 08:33 Ipratropium/Albuterol Sulfate 3 Ml Ampul.Neb IH 1 ampul Q4HRT FRANCESCA Administration Amiodarone HCl 200 mg 03/31/22 22:00 04/18/22 21:30 Amiodarone 200 Mg Tab PO 200 mg BID FRANCESCA Administration Aspirin 81 mg 04/01/22 10:00 04/18/22 09:19 Aspirin 81 Mg Tab Chew PO 81 mg QDAY FRANCESCA Administration Atorvastatin Calcium 40 mg 03/31/22 22:00 04/19/22 00:42 Atorvastatin 40 Mg Tab PO Not Given QHS FRANCESCA Dextrose 25 ml 04/15/22 00:04 Dextrose 50% In Water (25gm) 50 Ml Syringe IV Q30MIN PRN Hypoglycemia Protocol Epoetin Gordon-epbx 20,000 unit 04/14/22 15:00 Epoetin Gordon-Epbx 10,000 Unit/1 Ml Vial SUB-Q CORINNE PRN hemodialysis Fentanyl 50 mcg 04/18/22 19:20 04/18/22 19:46 Fentanyl 100 Mcg/2 Ml Inj IV 50 mcg Q4HR PRN Administration Pain , Severe (7-10) Folic Acid 1 mg 04/08/22 10:00 04/18/22 09:19 Folic Acid 1 Mg Tab PO 1 mg DAILY FRANCESCA Administration Heparin Sodium (Porcine) 3,000 unit 04/13/22 10:24 Heparin 10,000 Units/10 Ml Vial IV CORINNE PRN hemodialysis Hydrophilic Ointment 1 applic 04/18/22 15:23 Lip Therapy Vaseline TP Q2HR PRN Dry Lips Sodium Chloride 100 mls @ 999 mls/hr 04/13/22 10:24 04/18/22 15:08 Nacl 0.9% IV 999 mls/hr CORINNE PRN Administration Hypotension Piperacillin Sod/Tazobactam Sod 2.25 gm in 50 mls @ 100 mls/hr 04/18/22 06:00 04/19/22 05:38 Zosyn/Ns 2.25 Gm/50ml IV 100 mls/hr Q8H FRANCESCA Administration NORepinephrine/NS 8 MG-250 ML 8 mg in 250 mls @ 14.438 mls/hr 04/18/22 15:00 Norepinephrine/Ns 8 Mg-250 Ml (Double Conc) IV TITRATE FRANCESCA Protocol 0.1 MCG/KG/MIN Vasopressin 20 unit/ Sodium 101 mls @ 9.09 mls/hr 04/18/22 15:00 04/18/22 22:44 Chloride IV 0.03 units/min TITR FRANCESCA 9.09 mls/hr Administration Protocol 0.03 UNITS/MIN Dopamine HCl/Dextrose 800 mg in 250 mls @ 2.888 mls/hr 04/18/22 15:00 04/18/22 22:06 Dopamine 800 Mg/D5w 250ml IV 0 mcg/kg/min TITR FRANCESCA 0 mls/hr Titration Protocol 2 MCG/KG/MIN Epinephrine 8 mg/ Sodium 250 mls @ 0 mls/hr 04/18/22 16:00 04/19/22 00:09 Chloride IV 0 mls/hr TITR FRANCESCA Infusion NORepinephrine/NS 8 MG-250 ML 8 mg in 250 mls @ 3.75 mls/hr 04/18/22 16:00 04/19/22 05:54 Norepinephrine/Ns 8 Mg-250 Ml (Double Conc) IV 16 mcg/min TITRATE FRANCESCA 30 mls/hr Titration Protocol 2 MCG/MIN Phenylephrine HCl 50 mg/ 250 mls @ 11.55 mls/hr 04/18/22 15:45 04/19/22 02:36 Sodium Chloride IV 0 mcg/kg/min TITR FRANCESCA 0 mls/hr Titration Protocol 0.5 MCG/KG/MIN Fentanyl Citrate 1,000 mcg in 100 mls @ 2.5 mls/hr 04/18/22 23:45 04/19/22 02:15 Fentanyl Drip Premix IV 100 mcg/hr TITR FRANCESCA 10 mls/hr Titration Protocol 25 MCG/HR Lansoprazole 30 mg 04/19/22 10:00 Lansoprazole 30 Mg Solutab FEEDTUBE BID FRANCESCA Metoprolol Tartrate 100 mg 03/31/22 22:00 04/18/22 21:33 Metoprolol Tartrate 100 Mg Tab PO Not Given BID FRANCESCA Morphine Sulfate 2 mg 03/31/22 13:31 04/17/22 16:49 Morphine 2 Mg/1 Ml Inj IV 2 mg Q4H PRN Administration Pain, Moderate (4-6) Morphine Sulfate 4 mg 03/31/22 13:31 Morphine 4 Mg/1 Ml Inj IV Q4H PRN Pain , Severe (7-10) Multi-Ingred Cream/Lotion/Oil/Oint 1 applic 04/18/22 15:23 Mineral Oil/Petrolatum, White Ophth Oint 3.5 Gm OU Q4HR PRN Dry Eye(s) Ondansetron HCl 4 mg 03/31/22 13:31 Ondansetron 4 Mg/2 Ml Inj IV Q8H PRN Nausea And Vomiting Quetiapine Fumarate 50 mg 03/31/22 22:00 04/18/22 21:32 Quetiapine 25 Mg Tab PO Not Given QHS FRANCESCA Scopolamine 1 each 04/18/22 11:00 04/18/22 11:13 Scopolamine Transdermal Patch 72 Hr TD 1 each Q72HR FRANCESCA Administration Senna/Docusate Sodium 1 tab 04/18/22 22:00 04/18/22 21:32 Sennosides/Docusate Sodium 8.6/50 Mg Tab FEEDTUBE Not Given BID FRANCESCA Sodium Chloride 10 ml 03/31/22 22:00 04/18/22 21:31 Sodium Chloride 0.9% 10 Ml Flush Syringe IV 10 ml BID FRANCESCA Administration Tamsulosin HCl 0.4 mg 04/01/22 10:00 04/18/22 09:19 Tamsulosin 0.4 Mg Cap PO 0.4 mg QDAY FRANCESCA Administration
[2022-04-19] MEDS ORDERED: EPINEPHrine 1 MG/1 ML 5 MG in SODIUM CHLORIDE 0.9% 250ML 245 ML IV SCH (09:00)
[2022-04-19] MEDS: fentaNYL DRIP Premix 1,000 MCG/100 ML BAG IV SCH ×2 (09:22→19:26)
[2022-04-19] MEDS: FOLIC ACID 1 MG TAB PO SCH (09:24)
[2022-04-19] MEDS: ASPIRIN 81 MG TAB CHEW PO SCH (09:24)
[2022-04-19] MEDS: TAMSULOSIN 0.4 MG CAP PO SCH (09:24)
[2022-04-19] MEDS: AMIODARONE 200 MG TAB PO SCH ×2 (09:24→21:27)
[2022-04-19] MEDS: METOPROLOL TARTRATE 100 MG TAB PO SCH (09:25)
--- NOTE | 2022-04-19 09:42 | XRay Report ---
CHEST - 1 VIEW 0752 hours INDICATION: follow up respiratory failure COMPARISON: Yesterday FINDINGS: Support devices: Stable support device positioning. Heart: Stable mild cardiomegaly Lungs/pleura: Mild improvement in the left suprahilar infiltration and right infrahilar infiltration . No pneumothorax. Additional findings: None. IMPRESSION: Mild improvement in the bilateral infiltrates or congestive changes. Signer Name: Sixto Reveles Jr, MD Signed: 04/19/2022 9:38 AM Workstation Name: [id number]
[2022-04-19] MEDS: VASOPRESSIN 20 UNIT in SODIUM CHLORIDE 0.9% 100 ML IV SCH ×2 (09:43→21:44)
[2022-04-19 10:28] LABS: Calcium 8.2 mg/dL (8.4-10.2)
--- NOTE | 2022-04-19 11:01 | Progress Note ---
<ANTONIO PENNY - Last Filed: 04/19/22 16:39> Assessment and Plan Assessment and plan: This is a 67-year-old male with known past medical history of CAD, CKD, atrial fibrillation, BPH, gastric bypass, renal insufficency, HTN, thoracic aortic aneurysm without rupture, nicotine dependence, benign lungs nodules s/p LDCT, R A, and debility initially admitted to floor for Afib with RVR, acute on CKD requiring HD, and sepsis secondary to aspiration PNA and VRE UTI. Patient was a code Met and transferred to ICU on 04/19 due acute hypoxic respiratory failure requiring ventilatory support. While in the ICU patient PEA arrested treated per ACLS protocol, ROSC achieved after 3 minutes. ICU Course to Date: 04/19: Sedation initiated overnight due to increase agitation. Remains on the vent and sedated. Open eyes spontaneously but does not tract, does not follow commands. Pupils are irregular, Left pupil is blown and nonreactive, right pupil is pinpoint and sluggish. Repeat CT head pending. Patient is s/p 4units of PRBCs due to low H&H, no s/s of any active bleeding. H&H stable this am, down to 2 pressors today. SR with frequent PVCs noted on the monitor. 2D echo pending and cardiology reconsulted. Pantocytopenic this am, repeat cultures pending, continue current IV abx per ID. Continue to trend CBC. Continue HD per Nephrology. Patient is a AND/DNR status, patient's family wants to give patient another 24hrs to 48hrs before making a decision for possible inpatient hospice vs withdrawal of care. Assessment and plan: #S/p PEA Arrest with ROSC #Paroxysmal Atrial Fibrillation #Congestive Heart Failure with reduced EF- 25 to 30% #Non-ST elevation NM (type II) - Blayne down and PEA arrested in the ICU after transfer, most likely Cardiopulmonary arrest - PEA arrest treated per ACLS protocol, ROSC achieved after 3 minutes - required multiple pressors post code- Dopamine, Epi, levo, vaso, and Alejandro - Patient is in SR with frequent PVCs this am, remains on 2 pressors- Levo and Vaso - Cardiology consulted, appreciate recommendations - elevated Troponin, most likely demand ischemia - Patient remains on PO amiodarone, BB held due to hypotension - Continue holding NATALYA inhibitor and ARB in the setting of MARIE - Last Echo reviewed- LVEF 25 to 30%. repeat Echo pending - Continue blood pressure monitor per protocol - Titrate pressors to maintain MAP above 65 - Hold AC due to anemia requiring blood products - Strict I&Os and Daily weight #Acute Hypoxic Respiratory Failure #Mucous Plugging with Atelectasis of Left Lung #Bilateral Pleural Effusion #Chronic Aspiration #Hospital-Acquired Pneumonia - With recurrent aspiration pneumonia, complete multiple course of IV antibiotic - Worsen hypoxia and complete opacity of left lung on 04/18 s/p intubation during code met, then bronchoscopy in the ICU - Repeat CXR with significant improvement - Vent setting: PRVC-70%,12,14,4205 - AM ABG noted - CCM consulted, appreciate recommendations - Continue IV Abx per ID and Nebs/vent management per CCM - VAP bundle addressed - Aspiration precaution HOB above 30 - Daily SBT and SAT trials as tolerated - Daily ABG and CXR - Continue SPO2 monitoring for SPO2 goal above 92% #Severe Sepsis #VRE Urinary Tract Infection(UTI) (POA) #Nonspecific Colitis #Hospital-acquired pneumonia #Chronic aspiration risk - Completed a IV abx course for PNA and VRE UTI - Patient with persistent aspiration and develop HAP and was placed back on IV abx - Recent imagings revealed right lower lobe atelectasis and completed opacities of Left lung. CT abs/pelvis also suggested nonspecific colitis - Now with pantocytopenia, on multiple pressors - Initial B.cultures negative, UA +VRE, repeat blood cultures and sputum culture pending - ID on consult, appreciate recommendations - Continue current IV Abx- Zosyn - F/U on cultures - Daily CBC monitor #Acute Metabolic Encephalopathy - Multifactorial, probably secondary to above - S/p PEA arrest now intubated and sedated, on fentanyl gtt - Patient open eyes spontaneously but does not tract, does not follow commands. Pupils are irregular, Left pupil is blown and nonreactive, right pupil is pinpoint and sluggish. - Repeat CT head pending - Titrate sedation for RASS 0 to -2 - Daily SAT and SBT - Avoid benzodiazepine to reduce the possibility of delirium - PRN Analgesia for CPOT greater than 3 - Maintenance of sleep-wake cycle #MARIE on chronic kidney disease stage III, now on HD #Hyperkalemia-resolved - Nephrology on consult, appreciated recommendation - iHD initiated this admit on 04/13/2022 - Righ chest Permacath inserted by Vascular Surgery - Continue HD per Nephro - Strict intake and output - Avoid nephrotoxic medications; Renally dose medications - Monitor and replace electrolytes as needed #Microcytic Anemia #Chronic lower GI bleed - Initially presented with anemia, c/f possible GIB - GI was consulted and recommend colonoscopy - Colonoscopy was initially planned, however patient unable to undergo colonoscopy due to incomplete bowel prep then with worsening metabolic encephal opathy. - Procedure in currently on hold for now - Drop of H&H post code, s/p 4units of PRBCs - No s/s of any active bleeding, H&H stable this am - Continue to trend CBC - Hold AC for now Transfuse if hemoglobin <7 or patient becomes symptomatic. 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 and prednisone as per his home medications - Home meds on hold due to pancytopenia - PRN analgesia for pain control #Moderate protein calorie malnutrition Albumin 2.8 Enteral nutrition held due to high pressor requirements - Resume TF once down to one pressor - Nutrition on consult for TF management #Tobacco dependence #Tobacco/Smoking cessation counseling - Reinforce smoking cessation education once patient is coherent and off the vent - PRN nicotine patch if needed #GI/DVT Prophylaxis - PPI- Lansoprazole - SCDs bilateral lower extremities while in bed, #Advance Care Planning - Disease education data, care plan, diagnoses, and prognosis were discussed with patient and patient's NOKs, brothers and sisters. They acknowledged understanding and agreed with current care plan. Patient's siblings opted for AND/DNR status. - Patient's family wants to give patient another 24hrs to 48hrs before making a decision for possible inpatient hospice vs withdrawal of care. The high probability of a clinically significant, sudden or life threatening deterioration of the [multiple] system(s) required my full and direct attention, intervention and personal management. The aggregate critical care time was [60] minutes. This time is in addition to time spent performing reported procedures but includes the following: [x] Data Review and interpretation [x] Patient assessment and monitoring of vital signs [x] Documentation [x] Medication orders and management Disposition Plan: ICU Total Time Spent with Patient (Minutes): 60 History Interval history: Patient seen and examined at the bedside. Intubated and sedated on Fentanyl. Open eyes spontaneously but does not tract, does not follow commands. Pupils are irregular, Left pupil is blown and nonreactive, right pupil is pinpoint and sluggish. Sedation initiated overnight due to increase agitation overnight. Still on 2 pressors- Levophed and Vaso. s/p 4units of PRBCs overnight Hospitalist Physical - Constitutional Vitals: Temp Pulse Resp BP Pulse Ox 98.6 F 87 24 120/72 100 04/19/22 07:13 04/19/22 10:50 04/19/22 10:50 04/19/22 10:50 04/19/22 10:50 General appearance: Present: no acute distress, well-nourished, other (Intubated and Sedated) - EENT Eyes: Present: irregular pupil, miosis (Right pupil, nonreactive), mydriasis (Left pupil, nonreactive) - Respiratory Respiratory effort: normal Respiratory: bilateral: rhonchi - Cardiovascular Rhythm: regular Heart Sounds: Present: S1 & S2 - Extremities Extremities: no ischemia, pulses intact, pulses symmetrical Peripheral Pulses: within normal limits - Abdominal General gastrointestinal: soft, non-distended, normal bowel sounds - Integumentary Integumentary: Present: warm, dry - Psychiatric Psychiatric: other (Intubated and Sedated) - Neurologic Neurologic: other (Intubated and sedated. Open eyes spontaneously, does not tract, does not follow any commands) - Allied Health Allied health notes reviewed: nursing, case management HEART Score - HEART Score Troponin: Troponin T 0.322 ng/mL (0.00-0.029) H* 04/18/22 Unknown Results - Labs CBC & Chem 7: 04/18/22 23:20 04/19/22 09:50 Labs: Laboratory Last Values WBC 1.8 K/mm3 (4.5-11.0) L* 04/18/22 23:20 RBC 3.19 M/mm3 (3.65-5.03) L 04/18/22 23:20 Hgb 8.5 gm/dl (11.8-15.2) L 04/18/22 23:20 Hct 26.7 % (35.5-45.6) L D 04/18/22 23:20 MCV 84 fl (84-94) 04/18/22 23:20 MCH 27 pg (28-32) L 04/18/22 23:20 MCHC 32 % (32-34) 04/18/22 23:20 RDW 20.4 % (13.2-15.2) H 04/18/22 23:20 Plt Count 66 K/mm3 (140-440) L 04/18/22 23:20 Lymph % (Auto) 10.2 % (13.4-35.0) L 04/18/22 04:24 Douglas % (Auto) 1.0 % (0.0-7.3) 04/18/22 04:24 Eos % (Auto) 1.9 % (0.0-4.3) 04/18/22 04:24 Baso % (Auto) 0.4 % (0.0-1.8) 04/18/22 04:24 Lymph # (Auto) 0.5 K/mm3 (1.2-5.4) L 04/18/22 04:24 Douglas # (Auto) 0.1 K/mm3 (0.0-0.8) 04/18/22 04:24 Eos # (Auto) 0.1 K/mm3 (0.0-0.4) 04/18/22 04:24 Baso # (Auto) 0.0 K/mm3 (0.0-0.1) 04/18/22 04:24 Add Manual Diff Complete 04/18/22 23:20 Total Counted 50 04/18/22 23:20 Seg Neutrophils % 86.5 % (40.0-70.0) H 04/18/22 04:24 Seg Neuts % (Manual) 32.0 % (40.0-70.0) L 04/18/22 23:20 Band Neutrophils % 2.0 % 04/18/22 23:20 Lymphocytes % (Manual) 64.0 % (13.4-35.0) H 04/18/22 23:20 Reactive Lymphs % (Man) 0 % 04/18/22 23:20 Monocytes % (Manual) 2.0 % (0.0-7.3) 04/18/22 23:20 Eosinophils % (Manual) 0 % (0.0-4.3) 04/18/22 23:20 Basophils % (Manual) 0 % (0.0-1.8) 04/18/22 23:20 Metamyelocytes % 0 % 04/18/22 23:20 Myelocytes % 0 % 04/18/22 23:20 Promyelocytes % 0 % 04/18/22 23:20 Blast Cells % 0 % 04/18/22 23:20 Nucleated RBC % Not Reportable 04/18/22 23:20 Seg Neutrophils # 4.4 K/mm3 (1.8-7.7) 04/18/22 04:24 Seg Neutrophils # Man 0.6 K/mm3 (1.8-7.7) L 04/18/22 23:20 Band Neutrophils # 0.0 K/mm3 04/18/22 23:20 Lymphocytes # (Manual) 1.2 K/mm3 (1.2-5.4) 04/18/22 23:20 Abs React Lymphs (Man) 0.0 K/mm3 04/18/22 23:20 Monocytes # (Manual) 0.0 K/mm3 (0.0-0.8) 04/18/22 23:20 Eosinophils # (Manual) 0.0 K/mm3 (0.0-0.4) 04/18/22 23:20 Basophils # (Manual) 0.0 K/mm3 (0.0-0.1) 04/18/22 23:20 Metamyelocytes # 0.0 K/mm3 04/18/22 23:20 Myelocytes # 0.0 K/mm3 04/18/22 23:20 Promyelocytes # 0.0 K/mm3 04/18/22 23:20 Blast Cells # 0.0 K/mm3 04/18/22 23:20 WBC Morphology Not Reportable 04/18/22 23:20 Hypersegmented Neuts Not Reportable 04/18/22 23:20 Hyposegmented Neuts Not Reportable 04/18/22 23:20 Hypogranular Neuts Not Reportable 04/18/22 23:20 Smudge Cells Not Reportable 04/18/22 23:20 Toxic Granulation Not Reportable 04/18/22 23:20 Toxic Vacuolation Not Reportable 04/18/22 23:20 Dohle Bodies Not Reportable 04/18/22 23:20 Pelger-Huet Anomaly Not Reportable 04/18/22 23:20 Marylin Rods Not Reportable 04/18/22 23:20 Platelet Estimate Consistent w auto 04/18/22 23:20 Clumped Platelets Not Reportable 04/18/22 23:20 Plt Clumps, EDTA Not Reportable 04/18/22 23:20 Large Platelets Not Reportable 04/18/22 23:20 Giant Platelets Not Reportable 04/18/22 23:20 Platelet Satelliting Not Reportable 04/18/22 23:20 Plt Morphology Comment Not Reportable 04/18/22 23:20 RBC Morphology Not Reportable 04/18/22 23:20 Dimorphic RBCs Not Reportable 04/18/22 23:20 Polychromasia Not Reportable 04/18/22 23:20 Hypochromasia Not Reportable 04/18/22 23:20 Poikilocytosis Not Reportable 04/18/22 23:20 Anisocytosis 1+ 04/18/22 23:20 Microcytosis Not Reportable 04/18/22 23:20 Macrocytosis Not Reportable 04/18/22 23:20 Spherocytes Not Reportable 04/18/22 23:20 Pappenheimer Bodies Not Reportable 04/18/22 23:20 Sickle Cells Not Reportable 04/18/22 23:20 Target Cells Not Reportable 04/18/22 23:20 Tear Drop Cells Not Reportable 04/18/22 23:20 Ovalocytes Not Reportable 04/18/22 23:20 Helmet Cells Not Reportable 04/18/22 23:20 Alvarez-[place] Bodies Not Reportable 04/18/22 23:20 [place] Rings Not Reportable 04/18/22 23:20 Damari Cells Not Reportable 04/18/22 23:20 Bite Cells Not Reportable 04/18/22 23:20 Crenated Cell Not Reportable 04/18/22 23:20 Elliptocytes Not Reportable 04/18/22 23:20 Acanthocytes (Spur) Not Reportable 04/18/22 23:20 Rouleaux Not Reportable 04/18/22 23:20 Hemoglobin C Crystals Not Reportable 04/18/22 23:20 Schistocytes Not Reportable 04/18/22 23:20 Malaria parasites Not Reportable 04/18/22 23:20 Cristino Bodies Not Reportable 04/18/22 23:20 Hem Pathologist Commnt No 04/18/22 23:20 ABG pH 7.352 pH Units (7.350-7.450) 04/19/22 04:45 ABG pCO2 35.2 mm Hg 04/19/22 04:45 ABG pO2 424.1 mm Hg (80.0-90.0) H 04/19/22 04:45 ABG HCO3 19.1 mmol/L (20.0-26.0) L 04/19/22 04:45 ABG O2 Saturation 99.6 % (95.0-99.0) H 04/19/22 04:45 ABG O2 Content 12.7 (0.0-44) 04/19/22 04:45 ABG Base Excess -5.9 mmol/L (-2.0-3.0) L 04/19/22 04:45 ABG Hemoglobin 8.3 gm/dl (14.0-18.0) L 04/19/22 04:45 ABG Carboxyhemoglobin 1.1 % (0.0-5.0) 04/19/22 04:45 ABG Methemoglobin 0.5 % (0.0-1.5) 04/19/22 04:45 Oxyhemoglobin 98.0 % (95.0-99.0) 04/19/22 04:45 FiO2 90 % 04/19/22 04:45 Sodium 132 mmol/L (137-145) L D 04/19/22 09:50 Potassium 4.8 mmol/L (3.6-5.0) 04/19/22 09:50 Chloride 94.3 mmol/L (98-107) L 04/19/22 09:50 Carbon Dioxide 28 mmol/L (22-30) 04/19/22 09:50 Anion Gap 15 mmol/L 04/19/22 09:50 BUN 71 mg/dL (9-20) H 04/19/22 09:50 Creatinine 6.3 mg/dL (0.8-1.3) H 04/19/22 09:50 Estimated GFR 11 ml/min 04/19/22 09:50 BUN/Creatinine Ratio 11 % 04/19/22 09:50 Glucose 205 mg/dL (75-100) H 04/19/22 09:50 POC Glucose 107 mg/dL (70-105) H 04/18/22 23:34 Lactic Acid 1.80 mmol/L (0.7-2.0) 04/19/22 04:24 Calcium 8.2 mg/dL (8.4-10.2) L D 04/19/22 09:50 Phosphorus 6.10 mg/dL (2.5-4.5) H 04/18/22 Unknown Magnesium 1.80 mg/dL (1.7-2.3) 04/18/22 Unknown Total Bilirubin 0.50 mg/dL (0.1-1.2) 04/05/22 05:06 AST 9 units/L (5-40) 04/05/22 05:06 ALT 7 units/L (7-56) 04/05/22 05:06 Alkaline Phosphatase 80 units/L (35-129) 04/05/22 05:06 Total Creatine Kinase 55 units/L (55-170) 03/31/22 08:00 Troponin T 0.322 ng/mL (0.00-0.029) H* 04/18/22 Unknown NT-Pro-B Natriuret Pep 65501 pg/mL (0-900) H 03/31/22 08:00 Total Protein 5.8 g/dL (6.3-8.2) L 04/05/22 05:06 Albumin 2.0 g/dL (3.9-5) L 04/05/22 05:06 Albumin/Globulin Ratio 0.5 % 04/05/22 05:06 Triglycerides 76 mg/dL (2-149) 03/31/22 08:00 Cholesterol 109 mg/dL (50-199) 03/31/22 08:00 LDL Cholesterol Direct 55 mg/dL (50-130) 03/31/22 08:00 HDL Cholesterol 38 mg/dL (40-59) L 03/31/22 08:00 Cholesterol/HDL Ratio 2.86 % 03/31/22 08:00 Procalcitonin 0.36 ng/mL (<0.15) 03/31/22 08:00 Urine Color Yellow (Yellow) 04/10/22 17:00 Urine Turbidity Slightly cloudy (Clear) 04/10/22 17:00 Specific [place] (Man) 1.010 (1.003-1.030) 04/10/22 17:00 Ur Protein (Man) 2+ mg/dL (Negative) 04/10/22 17:00 Ur Ketones (Man) Negative (Negative) 04/10/22 17:00 Ur Nitrite (Man) Negative (Negative) 04/10/22 17:00 Ur Reducing Substances Not Reportable 04/10/22 17:00 Urine Bilirubin (Man) Negative (Negative) 04/10/22 17:00 Urine Ictotest Not Reportable 04/10/22 17:00 Leukocyte Esterase (Man) Negative (Negative) 04/10/22 17:00 Urine WBC (Auto) 2.0 /HPF (0.0-6.0) 04/10/22 17:00 Urine RBC (Auto) 4.0 /HPF (0.0-6.0) 04/10/22 17:00 Urine Bacteria (Auto) 2+ /HPF (Negative) 04/10/22 17:00 Urine RBC (Manual) 3+ (Negative) 04/10/22 17:00 Granular Casts 6 /LPF 04/01/22 05:20 RBC Casts 7 /LPF 04/01/22 05:20 Urine Yeast (Budding) 3+ /HPF 04/10/22 17:00 Urine Creatinine 82.0 mg/dL (0.1-20.0) H 04/05/22 18:16 Urine Sodium 107 mmol/L 04/05/22 18:16 Random Vancomycin 18.2 ug/mL (0-40.0) 04/06/22 05:46 SARS-CoV-2 (PCR) Negative (Negative) 04/08/22 09:45 Hepatitis A IgM Ab Non-reactive (NonReactive) 04/13/22 14:19 Hep Bs Antigen Non-reactive (Negative) 04/13/22 14:19 Hep B Core IgM Ab Non-reactive (NonReactive) 04/13/22 14:19 Hepatitis C Antibody Non-reactive (NonReactive) 04/13/22 14:19 Blood Type O POSITIVE 04/18/22 15:39 Antibody Screen Negative 04/18/22 15:39 Crossmatch See Detail 04/18/22 15:39 Microbiology: Microbiology 04/18/22 23:55 Peripheral/Venous Blood Culture - Preliminary Culture in Progress 04/18/22 23:55 Peripheral/Venous Blood Culture - Preliminary Culture in Progress Arteaga/IV: Voiding Method Condom Catheter Active Medications - Current Medications Current Medications: Generic Name Dose Route Start Last Admin Trade Name Freq PRN Reason Stop Dose Admin Acetaminophen 650 mg 03/31/22 13:31 04/18/22 20:09 Acetaminophen 325 Mg Tab PO 650 mg Q4H PRN Administration Pain MILD(1-3)/Fever >100.5/HILTON Albuterol/Ipratropium 1 ampul 04/18/22 10:00 04/19/22 08:33 Ipratropium/Albuterol Sulfate 3 Ml Ampul.Neb IH 1 ampul Q4HRT FRANCESCA Administration Amiodarone HCl 200 mg 03/31/22 22:00 04/19/22 09:24 Amiodarone 200 Mg Tab PO 200 mg BID FRANCESCA Administration Aspirin 81 mg 04/01/22 10:00 04/19/22 09:24 Aspirin 81 Mg Tab Chew PO 81 mg QDAY FRANCESCA Administration Atorvastatin Calcium 40 mg 03/31/22 22:00 04/19/22 00:42 Atorvastatin 40 Mg Tab PO Not Given QHS FRANCESCA Dextrose 25 ml 04/15/22 00:04 Dextrose 50% In Water (25gm) 50 Ml Syringe IV Q30MIN PRN Hypoglycemia Protocol Epoetin Gordon-epbx 20,000 unit 04/14/22 15:00 Epoetin Gordon-Epbx 10,000 Unit/1 Ml Vial SUB-Q CORINNE PRN hemodialysis Fentanyl 50 mcg 04/18/22 19:20 04/18/22 19:46 Fentanyl 100 Mcg/2 Ml Inj IV 50 mcg Q4HR PRN Administration Pain , Severe (7-10) Folic Acid 1 mg 04/08/22 10:00 04/19/22 09:24 Folic Acid 1 Mg Tab PO 1 mg DAILY FRANCESCA Administration Heparin Sodium (Porcine) 3,000 unit 04/13/22 10:24 Heparin 10,000 Units/10 Ml Vial IV CORINNE PRN hemodialysis Hydrophilic Ointment 1 applic 04/18/22 15:23 Lip Therapy Vaseline TP Q2HR PRN Dry Lips Sodium Chloride 100 mls @ 999 mls/hr 04/13/22 10:24 04/18/22 15:08 Nacl 0.9% IV 999 mls/hr CORINNE PRN Administration Hypotension Piperacillin Sod/Tazobactam Sod 2.25 gm in 50 mls @ 100 mls/hr 04/18/22 06:00 04/19/22 05:38 Zosyn/Ns 2.25 Gm/50ml IV 100 mls/hr Q8H FRANCESCA Administration NORepinephrine/NS 8 MG-250 ML 8 mg in 250 mls @ 14.438 mls/hr 09/12/22 15:00 04/19/22 09:26 Norepinephrine/Ns 8 Mg-250 Ml (Double Conc) IV 0.2 mcg/kg/min TITRATE FRANCESCA 28.875 mls/hr Administration Protocol 0.1 MCG/KG/MIN Vasopressin 20 unit/ Sodium 101 mls @ 9.09 mls/hr 04/18/22 15:00 04/19/22 09:43 Chloride IV 0.03 units/min TITR FRANCESCA 9.09 mls/hr Administration Protocol 0.03 UNITS/MIN Dopamine HCl/Dextrose 800 mg in 250 mls @ 2.888 mls/hr 04/18/22 15:00 04/18/22 22:06 Dopamine 800 Mg/D5w 250ml IV 0 mcg/kg/min TITR FRANCESCA 0 mls/hr Titration Protocol 2 MCG/KG/MIN Phenylephrine HCl 50 mg/ 250 mls @ 11.55 mls/hr 04/18/22 15:45 04/19/22 02:36 Sodium Chloride IV 0 mcg/kg/min TITR FRANCESCA 0 mls/hr Titration Protocol 0.5 MCG/KG/MIN Fentanyl Citrate 1,000 mcg in 100 mls @ 2.5 mls/hr 04/18/22 23:45 04/19/22 09:22 Fentanyl Drip Premix IV 100 mcg/hr TITR FRANCESCA 10 mls/hr Administration Protocol 25 MCG/HR Epinephrine 5 mg/ Sodium 250 mls @ 23.1 mls/hr 04/19/22 09:00 Chloride IV TITR FRANCESCA Protocol 0.1 MCG/KG/MIN Lansoprazole 30 mg 04/19/22 10:00 Lansoprazole 30 Mg Solutab FEEDTUBE BID FRANCESCA Morphine Sulfate 2 mg 03/31/22 13:31 04/17/22 16:49 Morphine 2 Mg/1 Ml Inj IV 2 mg Q4H PRN Administration Pain, Moderate (4-6) Morphine Sulfate 4 mg 03/31/22 13:31 Morphine 4 Mg/1 Ml Inj IV Q4H PRN Pain , Severe (7-10) Multi-Ingred Cream/Lotion/Oil/Oint 1 applic 04/18/22 15:23 Mineral Oil/Petrolatum, White Ophth Oint 3.5 Gm OU Q4HR PRN Dry Eye(s) Ondansetron HCl 4 mg 03/31/22 13:31 Ondansetron 4 Mg/2 Ml Inj IV Q8H PRN Nausea And Vomiting Quetiapine Fumarate 50 mg 03/31/22 22:00 04/18/22 21:32 Quetiapine 25 Mg Tab PO Not Given QHS FRANCESCA Scopolamine 1 each 04/18/22 11:00 04/18/22 11:13 Scopolamine Transdermal Patch 72 Hr TD 1 each Q72HR FRANCESCA Administration Senna/Docusate Sodium 1 tab 04/18/22 22:00 04/18/22 21:32 Sennosides/Docusate Sodium 8.6/50 Mg Tab FEEDTUBE Not Given BID FRANCESCA Sodium Chloride 10 ml 03/31/22 22:00 04/19/22 09:25 Sodium Chloride 0.9% 10 Ml Flush Syringe IV 10 ml BID FRANCESCA Administration Tamsulosin HCl 0.4 mg 04/01/22 10:00 04/19/22 09:24 Tamsulosin 0.4 Mg Cap PO 0.4 mg QDAY FRANCESCA Administration Nutrition/Malnutrition Assess - Dietary Evaluation Nutrition/Malnutrition Findings: Nutrition Notes Start: 04/01/22 10:53 Freq: Status: Active Protocol: Document 04/15/22 12:27 [facility] (Rec: 04/15/22 12:39 [facility] [id number]) Nutrition Notes Initial or Follow up Reassessment Current Diagnosis Acute Kidney Injury,Sepsis, Heart Failure,Respiratory Failure Other Pertinent Diagnosis Pneu, UTI, acute metabolic encephalopathy, anemia Current Diet TF - Nepro at 45ml/hr Labs/Tests Na 136 K 3.5 BUN 45 Cr 6.1 Pertinent Medications 40mEq KCl Height 5 ft 9 in Weight 77 kg [place] Body Weight (kg) 72.72 BMI 25.0 Weight Status Appropriate Subjective/Other Information Pt tolerating TF at goal rate. Per CRITICAL CARE PHYSICIAN ASSISTANT evaluation on 04/14, PEG tube recommended. HD initiated on 04/13. New stage 2 sacral wound and (L) posterior buttocks wound reported 04/13. Percent of energy/protein needs met: 105% energy 95% pro Burn Absent Trauma Absent #2 Nutrition Diagnosis Altered nutrition-related laboratory values Diagnosis Progress(for reassessment Continues documentation) #1 Nutrition Diagnosis Inadequate oral intake Diagnosis Progress(for reassessment Continues documentation) Is patient on ventilator? No Is Patient Ambulatory and/or Out of Bed No REE-([place]-St. Jeor-confined to bed) [phone] Calculation Used for Recommendations [facility] Additional Notes Pro needs >1.2g/kg: >92g/day Fluid needs 1-1.5L/day Nutrition Intervention Nutrition Support: Continue Nepro at 45ml/hr with 200ml water flush q4h. Kcal 1,944 Protein (gm) 87 Carbohydrates (gm) 174 Fat (gm) 104 Fluid (mL) 785 Fiber (gm) 14 Goal #1 TF tolerance Goal #2 TF to provide at least 75% energy and pro needs Follow-Up By: 04/22/22 Additional Comments F/U: stable TF, wt <ROSALIO RUSSELL - Last Filed: 04/20/22 07:27> Assessment and Plan Assessment and plan: I saw and evaluated the patient. I agree with the findings and the plan of care as documented in the Nurse Practitioner's~note, with the following corrections and additions. Hospitalist Physical - Constitutional Vitals: Temp Pulse Resp BP Pulse Ox 98.8 F 111 H 18 87/58 100 04/20/22 04:00 04/20/22 06:07 04/20/22 06:00 04/20/22 06:00 04/20/22 06:00 HEART Score - HEART Score Troponin: Troponin T 0.322 ng/mL (0.00-0.029) H* 04/18/22 Unknown Results - Labs CBC & Chem 7: 04/18/22 23:20 04/20/22 04:00 Labs: Laboratory Last Values WBC 1.8 K/mm3 (4.5-11.0) L* 04/18/22 23:20 RBC 3.19 M/mm3 (3.65-5.03) L 04/18/22 23:20 Hgb 8.5 gm/dl (11.8-15.2) L 04/18/22 23:20 Hct 26.7 % (35.5-45.6) L D 04/18/22 23:20 MCV 84 fl (84-94) 04/18/22 23:20 MCH 27 pg (28-32) L 04/18/22 23:20 MCHC 32 % (32-34) 04/18/22 23:20 RDW 20.4 % (13.2-15.2) H 04/18/22 23:20 Plt Count 66 K/mm3 (140-440) L 04/18/22 23:20 Lymph % (Auto) 10.2 % (13.4-35.0) L 04/18/22 04:24 Douglas % (Auto) 1.0 % (0.0-7.3) 04/18/22 04:24 Eos % (Auto) 1.9 % (0.0-4.3) 04/18/22 04:24 Baso % (Auto) 0.4 % (0.0-1.8) 04/18/22 04:24 Lymph # (Auto) 0.5 K/mm3 (1.2-5.4) L 04/18/22 04:24 Douglas # (Auto) 0.1 K/mm3 (0.0-0.8) 04/18/22 04:24 Eos # (Auto) 0.1 K/mm3 (0.0-0.4) 04/18/22 04:24 Baso # (Auto) 0.0 K/mm3 (0.0-0.1) 04/18/22 04:24 Add Manual Diff Complete 04/18/22 23:20 Total Counted 50 04/18/22 23:20 Seg Neutrophils % 86.5 % (40.0-70.0) H 04/18/22 04:24 Seg Neuts % (Manual) 32.0 % (40.0-70.0) L 04/18/22 23:20 Band Neutrophils % 2.0 % 04/18/22 23:20 Lymphocytes % (Manual) 64.0 % (13.4-35.0) H 04/18/22 23:20 Reactive Lymphs % (Man) 0 % 04/18/22 23:20 Monocytes % (Manual) 2.0 % (0.0-7.3) 04/18/22 23:20 Eosinophils % (Manual) 0 % (0.0-4.3) 04/18/22 23:20 Basophils % (Manual) 0 % (0.0-1.8) 04/18/22 23:20 Metamyelocytes % 0 % 04/18/22 23:20 Myelocytes % 0 % 04/18/22 23:20 Promyelocytes % 0 % 04/18/22 23:20 Blast Cells % 0 % 04/18/22 23:20 Nucleated RBC % Not Reportable 04/18/22 23:20 Seg Neutrophils # 4.4 K/mm3 (1.8-7.7) 04/18/22 04:24 Seg Neutrophils # Man 0.6 K/mm3 (1.8-7.7) L 04/18/22 23:20 Band Neutrophils # 0.0 K/mm3 04/18/22 23:20 Lymphocytes # (Manual) 1.2 K/mm3 (1.2-5.4) 04/18/22 23:20 Abs React Lymphs (Man) 0.0 K/mm3 04/18/22 23:20 Monocytes # (Manual) 0.0 K/mm3 (0.0-0.8) 04/18/22 23:20 Eosinophils # (Manual) 0.0 K/mm3 (0.0-0.4) 04/18/22 23:20 Basophils # (Manual) 0.0 K/mm3 (0.0-0.1) 04/18/22 23:20 Metamyelocytes # 0.0 K/mm3 04/18/22 23:20 Myelocytes # 0.0 K/mm3 04/18/22 23:20 Promyelocytes # 0.0 K/mm3 04/18/22 23:20 Blast Cells # 0.0 K/mm3 04/18/22 23:20 WBC Morphology Not Reportable 04/18/22 23:20 Hypersegmented Neuts Not Reportable 04/18/22 23:20 Hyposegmented Neuts Not Reportable 04/18/22 23:20 Hypogranular Neuts Not Reportable 04/18/22 23:20 Smudge Cells Not Reportable 04/18/22 23:20 Toxic Granulation Not Reportable 04/18/22 23:20 Toxic Vacuolation Not Reportable 04/18/22 23:20 Dohle Bodies Not Reportable 04/18/22 23:20 Pelger-Huet Anomaly Not Reportable 04/18/22 23:20 Marylin Rods Not Reportable 04/18/22 23:20 Platelet Estimate Consistent w auto 04/18/22 23:20 Clumped Platelets Not Reportable 04/18/22 23:20 Plt Clumps, EDTA Not Reportable 04/18/22 23:20 Large Platelets Not Reportable 04/18/22 23:20 Giant Platelets Not Reportable 04/18/22 23:20 Platelet Satelliting Not Reportable 04/18/22 23:20 Plt Morphology Comment Not Reportable 04/18/22 23:20 RBC Morphology Not Reportable 04/18/22 23:20 Dimorphic RBCs Not Reportable 04/18/22 23:20 Polychromasia Not Reportable 04/18/22 23:20 Hypochromasia Not Reportable 04/18/22 23:20 Poikilocytosis Not Reportable 04/18/22 23:20 Anisocytosis 1+ 04/18/22 23:20 Microcytosis Not Reportable 04/18/22 23:20 Macrocytosis Not Reportable 04/18/22 23:20 Spherocytes Not Reportable 04/18/22 23:20 Pappenheimer Bodies Not Reportable 04/18/22 23:20 Sickle Cells Not Reportable 04/18/22 23:20 Target Cells Not Reportable 04/18/22 23:20 Tear Drop Cells Not Reportable 04/18/22 23:20 Ovalocytes Not Reportable 04/18/22 23:20 Helmet Cells Not Reportable 04/18/22 23:20 Alvarez-[place] Bodies Not Reportable 04/18/22 23:20 [place] Rings Not Reportable 04/18/22 23:20 Makinen Cells Not Reportable 04/18/22 23:20 Bite Cells Not Reportable 04/18/22 23:20 Crenated Cell Not Reportable 04/18/22 23:20 Elliptocytes Not Reportable 04/18/22 23:20 Acanthocytes (Spur) Not Reportable 04/18/22 23:20 Rouleaux Not Reportable 04/18/22 23:20 Hemoglobin C Crystals Not Reportable 04/18/22 23:20 Schistocytes Not Reportable 04/18/22 23:20 Malaria parasites Not Reportable 04/18/22 23:20 Cristino Bodies Not Reportable 04/18/22 23:20 Hem Pathologist Commnt No 04/18/22 23:20 ABG pH 7.313 pH Units (7.350-7.450) L 04/20/22 04:30 ABG pCO2 46.8 mm Hg 04/20/22 04:30 ABG pO2 171.4 mm Hg (80.0-90.0) H 04/20/22 04:30 ABG HCO3 23.2 mmol/L (20.0-26.0) 04/20/22 04:30 ABG O2 Saturation 99.0 % (95.0-99.0) 04/20/22 04:30 ABG O2 Content 9.9 (0.0-44) 04/20/22 04:30 ABG Base Excess -2.8 mmol/L (-2.0-3.0) L 04/20/22 04:30 ABG Hemoglobin 6.9 gm/dl (14.0-18.0) L 04/20/22 04:30 ABG Carboxyhemoglobin 0.9 % (0.0-5.0) 04/20/22 04:30 ABG Methemoglobin 0.7 % (0.0-1.5) 04/20/22 04:30 Oxyhemoglobin 97.4 % (95.0-99.0) 04/20/22 04:30 FiO2 45 % 04/20/22 04:30 Sodium 141 mmol/L (137-145) D 04/20/22 04:00 Potassium 5.7 mmol/L (3.6-5.0) H 04/20/22 04:00 Chloride 101.3 mmol/L (98-107) 04/20/22 04:00 Carbon Dioxide 19 mmol/L (22-30) L D 04/20/22 04:00 Anion Gap 26 mmol/L 04/20/22 04:00 BUN 99 mg/dL (9-20) H 04/20/22 04:00 Creatinine 8.0 mg/dL (0.8-1.3) H 04/20/22 04:00 Estimated GFR 8 ml/min 04/20/22 04:00 BUN/Creatinine Ratio 12 % 04/20/22 04:00 Glucose 95 mg/dL (75-100) 04/20/22 04:00 POC Glucose 103 mg/dL (70-105) 04/19/22 23:43 Lactic Acid 1.80 mmol/L (0.7-2.0) 04/19/22 04:24 Calcium 6.9 mg/dL (8.4-10.2) L D 04/20/22 04:00 Phosphorus 6.90 mg/dL (2.5-4.5) H 04/20/22 04:00 Magnesium 2.20 mg/dL (1.7-2.3) 04/20/22 04:00 Total Bilirubin 1.10 mg/dL (0.1-1.2) 04/20/22 04:00 AST 118 units/L (5-40) H 04/20/22 04:00 ALT 67 units/L (7-56) H 04/20/22 04:00 Alkaline Phosphatase 108 units/L (35-129) 04/20/22 04:00 Total Creatine Kinase 55 units/L (55-170) 03/31/22 08:00 Troponin T 0.322 ng/mL (0.00-0.029) H* 04/18/22 Unknown NT-Pro-B Natriuret Pep 33774 pg/mL (0-900) H 03/31/22 08:00 Total Protein 6.2 g/dL (6.3-8.2) L 04/20/22 04:00 Albumin 2.0 g/dL (3.9-5) L 04/20/22 04:00 Albumin/Globulin Ratio 0.5 % 04/20/22 04:00 Triglycerides 76 mg/dL (2-149) 03/31/22 08:00 Cholesterol 109 mg/dL (50-199) 03/31/22 08:00 LDL Cholesterol Direct 55 mg/dL (50-130) 03/31/22 08:00 HDL Cholesterol 38 mg/dL (40-59) L 03/31/22 08:00 Cholesterol/HDL Ratio 2.86 % 03/31/22 08:00 Procalcitonin 0.36 ng/mL (<0.15) 03/31/22 08:00 Urine Color Yellow (Yellow) 04/10/22 17:00 Urine Turbidity Slightly cloudy (Clear) 04/10/22 17:00 Specific [place] (Man) 1.010 (1.003-1.030) 04/10/22 17:00 Ur Protein (Man) 2+ mg/dL (Negative) 04/10/22 17:00 Ur Ketones (Man) Negative (Negative) 04/10/22 17:00 Ur Nitrite (Man) Negative (Negative) 04/10/22 17:00 Ur Reducing Substances Not Reportable 04/10/22 17:00 Urine Bilirubin (Man) Negative (Negative) 04/10/22 17:00 Urine Ictotest Not Reportable 04/10/22 17:00 Leukocyte Esterase (Man) Negative (Negative) 04/10/22 17:00 Urine WBC (Auto) 2.0 /HPF (0.0-6.0) 04/10/22 17:00 Urine RBC (Auto) 4.0 /HPF (0.0-6.0) 04/10/22 17:00 Urine Bacteria (Auto) 2+ /HPF (Negative) 04/10/22 17:00 Urine RBC (Manual) 3+ (Negative) 04/10/22 17:00 Granular Casts 6 /LPF 04/01/22 05:20 RBC Casts 7 /LPF 04/01/22 05:20 Urine Yeast (Budding) 3+ /HPF 04/10/22 17:00 Urine Creatinine 82.0 mg/dL (0.1-20.0) H 04/05/22 18:16 Urine Sodium 107 mmol/L 04/05/22 18:16 Random Vancomycin 18.2 ug/mL (0-40.0) 04/06/22 05:46 SARS-CoV-2 (PCR) Negative (Negative) 04/08/22 09:45 Hepatitis A IgM Ab Non-reactive (NonReactive) 04/13/22 14:19 Hep Bs Antigen Non-reactive (Negative) 04/13/22 14:19 Hep B Core IgM Ab Non-reactive (NonReactive) 04/13/22 14:19 Hepatitis C Antibody Non-reactive (NonReactive) 04/13/22 14:19 Blood Type O POSITIVE 04/18/22 15:39 Antibody Screen Negative 04/18/22 15:39 Crossmatch See Detail 04/18/22 15:39 Microbiology: Microbiology 04/18/22 23:55 Peripheral/Venous Blood Culture - Preliminary NO GROWTH AFTER 24 HOURS 04/18/22 23:55 Peripheral/Venous Blood Culture - Preliminary NO GROWTH AFTER 24 HOURS Arteaga/IV: Voiding Method Condom Catheter Active Medications - Current Medications Current Medications: Generic Name Dose Route Start Last Admin Trade Name Freq PRN Reason Stop Dose Admin Acetaminophen 650 mg 03/31/22 13:31 04/19/22 21:47 Acetaminophen 325 Mg Tab PO 650 mg Q4H PRN Administration Pain MILD(1-3)/Fever >100.5/[place] Albuterol/Ipratropium 1 ampul 04/18/22 10:00 04/20/22 04:26 Ipratropium/Albuterol Sulfate 3 Ml Ampul.Neb IH 1 ampul Q4HRT FRANCESCA Administration Amiodarone HCl 200 mg 03/31/22 22:00 04/19/22 21:27 Amiodarone 200 Mg Tab PO 200 mg BID FRANCESCA Administration Aspirin 81 mg 04/01/22 10:00 04/19/22 09:24 Aspirin 81 Mg Tab Chew PO 81 mg QDAY FRANCESCA Administration Atorvastatin Calcium 40 mg 03/31/22 22:00 04/19/22 21:27 Atorvastatin 40 Mg Tab PO 40 mg QHS FRANCESCA Administration Dextrose 25 ml 04/15/22 00:04 Dextrose 50% In Water (25gm) 50 Ml Syringe IV Q30MIN PRN Hypoglycemia Protocol Epoetin Gordon-epbx 20,000 unit 04/14/22 15:00 Epoetin Gordon-Epbx 10,000 Unit/1 Ml Vial SUB-Q CORINNE PRN hemodialysis Fentanyl 50 mcg 04/18/22 19:20 04/18/22 19:46 Fentanyl 100 Mcg/2 Ml Inj IV 50 mcg Q4HR PRN Administration Pain , Severe (7-10) Folic Acid 1 mg 04/08/22 10:00 04/19/22 09:24 Folic Acid 1 Mg Tab PO 1 mg DAILY FRANCESCA Administration Heparin Sodium (Porcine) 3,000 unit 04/13/22 10:24 Heparin 10,000 Units/10 Ml Vial IV CORINNE PRN hemodialysis Hydrophilic Ointment 1 applic 04/18/22 15:23 Lip Therapy Vaseline TP Q2HR PRN Dry Lips Sodium Chloride 100 mls @ 999 mls/hr 04/13/22 10:24 04/18/22 15:08 Nacl 0.9% IV 999 mls/hr CORINNE PRN Administration Hypotension Piperacillin Sod/Tazobactam Sod 2.25 gm in 50 mls @ 100 mls/hr 04/18/22 06:00 04/20/22 05:03 Zosyn/Ns 2.25 Gm/50ml IV 100 mls/hr Q8H FRANCESCA Administration NORepinephrine/NS 8 MG-250 ML 8 mg in 250 mls @ 14.438 mls/hr 04/18/22 15:00 04/20/22 01:45 Norepinephrine/Ns 8 Mg-250 Ml (Double Conc) IV 0.08 mcg/kg/min TITRATE FRANCESCA 11.55 mls/hr Titration Protocol 0.1 MCG/KG/MIN Vasopressin 20 unit/ Sodium 101 mls @ 9.09 mls/hr 04/18/22 15:00 04/19/22 21 :44 Chloride IV 0.03 units/min TITR FRANCESCA 9.09 mls/hr Administration Protocol 0.03 UNITS/MIN Phenylephrine HCl 50 mg/ 250 mls @ 11.55 mls/hr 04/18/22 15:45 04/19/22 02:36 Sodium Chloride IV 0 mcg/kg/min TITR FRANCESCA 0 mls/hr Titration Protocol 0.5 MCG/KG/MIN Fentanyl Citrate 1,000 mcg in 100 mls @ 2.5 mls/hr 04/18/22 23:45 04/20/22 05:45 Fentanyl Drip Premix IV 100 mcg/hr TITR FRANCESCA 10 mls/hr Administration Protocol 25 MCG/HR Lansoprazole 30 mg 04/19/22 10:00 04/19/22 21:30 Lansoprazole 30 Mg Solutab FEEDTUBE Not Given BID FRANCESCA Multi-Ingred Cream/Lotion/Oil/Oint 1 applic 04/18/22 15:23 Mineral Oil/Petrolatum, White Ophth Oint 3.5 Gm OU Q4HR PRN Dry Eye(s) Ondansetron HCl 4 mg 03/31/22 13:31 Ondansetron 4 Mg/2 Ml Inj IV Q8H PRN Nausea And Vomiting Quetiapine Fumarate 50 mg 03/31/22 22:00 04/19/22 21:28 Quetiapine 25 Mg Tab PO Not Given QHS FRANCESCA Scopolamine 1 each 04/18/22 11:00 04/18/22 11:13 Scopolamine Transdermal Patch 72 Hr TD 1 each Q72HR FRANCESCA Administration Senna/Docusate Sodium 1 tab 04/18/22 22:00 04/19/22 21:28 Sennosides/Docusate Sodium 8.6/50 Mg Tab FEEDTUBE 1 tab BID FRANCESCA Administration Sodium Chloride 10 ml 03/31/22 22:00 04/19/22 21:29 Sodium Chloride 0.9% 10 Ml Flush Syringe IV 10 ml BID FRANCESCA Administration Tamsulosin HCl 0.4 mg 04/01/22 10:00 04/19/22 09:24 Tamsulosin 0.4 Mg Cap PO 0.4 mg QDAY FRANCESCA Administration Nutrition/Malnutrition Assess - Dietary Evaluation Nutrition/Malnutrition Findings: Nutrition Notes Start: 04/01/22 1 0:53 Freq: Status: Active Protocol: Document 04/15/22 12:27 SIM (Rec: 04/15/22 12:39 [facility] [id number]) Nutrition Notes Initial or Follow up Reassessment Current Diagnosis Acute Kidney Injury,Sepsis, Heart Failure,Respiratory Failure Other Pertinent Diagnosis Pneu, UTI, acute metabolic encephalopathy, anemia Current Diet TF - Nepro at 45ml/hr Labs/Tests Na 136 K 3.5 BUN 45 Cr 6.1 Pertinent Medications 40mEq KCl Height 5 ft 9 in Weight 77 kg [place] Body Weight (kg) 72.72 BMI 25.0 Weight Status Appropriate Subjective/Other Information Pt tolerating TF at goal rate. Per CRITICAL CARE PHYSICIAN ASSISTANT evaluation on 04/14, PEG tube recommended. HD initiated on 04/13. New stage 2 sacral wound and (L) posterior buttocks wound reported 04/13. Percent of energy/protein needs met: 105% energy 95% pro Burn Absent Trauma Absent #2 Nutrition Diagnosis Altered nutrition-related laboratory values Diagnosis Progress(for reassessment Continues documentation) #1 Nutrition Diagnosis Inadequate oral intake Diagnosis Progress(for reassessment Continues documentation) Is patient on ventilator? No Is Patient Ambulatory and/or Out of Bed No REE-([facility]-confined to bed) [phone] Calculation Used for Recommendations [facility] Additional Notes Pro needs >1.2g/kg: >92g/day Fluid needs 1-1.5L/day Nutrition Intervention Nutrition Support: Continue Nepro at 45ml/hr with 200ml water flush q4h. Kcal 1,944 Protein (gm) 87 Carbohydrates (gm) 174 Fat (gm) 104 Fluid (mL) 785 Fiber (gm) 14 Goal #1 TF tolerance Goal #2 TF to provide at least 75% energy and pro needs Follow-Up By: 04/22/22 Additional Comments F/U: stable TF, wt
--- NOTE | 2022-04-19 11:34 | Progress Note ---
Assessment and Plan Cultures: COVID-19 PCR: Negative 03/31/2022 blood culture: No growth 04/01/2022 urine culture: VRE - Enterococcus faecium 04/08/2022 COVID-19 PCR: Negative 04/10/2022 blood culture: No growth so far 04/10/2022 urine culture: Kizzy albicans 04/18/2022 blood culture: In process 04/18/2022 respiratory culture: In process A/P: 67-year-old male with CAD, CKD, atrial fibrillation, vascular dementia was admi tted to the hospital on 03/31/2022 with fever and shortness of breath: #Septic shock #Recurrent aspiration pneumonia and mucous plugging, chest x-ray and CT scan on review showed complete whiteout of left lung. s/p multiple rounds of abx. #Acute hypoxic respiratory failure: on the vent. #MARIE on CKD: Nephrology on board, initiated on HD. 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 Unclear indication. Patient does not know the indication. ?Rheumatoid arthritis #Leukopenia: briefly improved after holding methotrexate. #VRE UTI: Asymptomatic bacteriuria, UA without any significant pyuria reflect colonization. #Acute encephalopathy: with underlying dementia. Recs: -Continue renally adjusted IV Zosyn for now (s/p multiple rounds of abx) -Follow-up new cultures -Monitor pancytopenia -overall poor prognosis Juanis Greco MD, FACP, [facility] O: [phone] F: [phone] C: [phone] Subjective Date of service: 04/19/22 Principal diagnosis: anemia Interval history: Patient now intubated, on the vent. Briefly required CPR yesterday. Best friend and stable hand at bedside. No fever today. On pressors Objective - Exam Narrative Exam: Physical Exam: Constitutional: sedated, intubated, on the vent Head, Ears, Nose: Normocephalic, atraumatic. External ears, nose normal Eyes: Conjunctivae/corneas clear. No icterus. No ptosis. Neck: intubated Oral: intubated Cardiovascular: S1, S2 + Respiratory: AE fair bilaterally GI: Soft, bowel sounds + Musculoskeletal: No pedal edema, no cyanosis. Skin: No rash or abscess Hem/Lymphatic: No palpable cervical or supraclavicular nodes. No lymphangitis Psych: no agitation Neurological: sedated, intubated, on the vent, exam limited - Constitutional Vitals: Vital Signs Temp Pulse Resp BP Pulse Ox 98.6 F 84 25 H 129/74 100 04/19/22 08:00 04/19/22 11:00 04/19/22 11:00 04/19/22 11:00 04/19/22 11:00 Temperature -Last 24 Hours Temperature 98.6 F Temperature 98.6 F Temperature 98.6 F Temperature 99 F Temperature 98.4 F Temperature 98.6 F Temperature 99.9 F Temperature 99.8 F Temperature 99.8 F Temperature 100.5 F Temperature 100.5 F Temperature 101 F Temperature 101 F Temperature 101 F Temperature 101.8 F Temperature 102 F Temperature 99.6 F - Labs CBC & Chem 7: 04/18/22 23:20 04/19/22 09:50 Labs: Abnormal lab results 04/14/22 04/18/22 04/18/22 Range/Units 08:44 15:30 15:39 WBC 0.8 L* (4.5-11.0) K/mm3 RBC 2.42 L (3.65-5.03) M/mm3 Hgb 6.2 L (11.8-15.2) gm/dl Hct 19.8 L* (35.5-45.6) % MCV 82 L (84-94) fl MCH 26 L (28-32) pg MCHC 31 L (32-34) % RDW 20.8 H (13.2-15.2) % Plt Count 82 L (140-440) K/mm3 Seg Neuts % (Manual) (40.0-70.0) % Lymphocytes % (Manual) (13.4-35.0) % Seg Neutrophils # Man (1.8-7.7) K/mm3 ABG pO2 (80.0-90.0) mm Hg ABG HCO3 (20.0-26.0) mmol/L ABG O2 Saturation (95.0-99.0) % ABG Base Excess (-2.0-3.0) mmol/L ABG Hemoglobin (14.0-18.0) gm/dl Sodium (137-145) mmol/L Potassium (3.6-5.0) mmol/L Chloride (98-107) mmol/L Carbon Dioxide (22-30) mmol/L BUN (9-20) mg/dL Creatinine (0.8-1.3) mg/dL Glucose (75-100) mg/dL POC Glucose (70-105) mg/dL Lactic Acid (0.7-2.0) mmol/L Calcium (8.4-10.2) mg/dL Phosphorus (2.5-4.5) mg/dL Troponin T (0.00-0.029) ng/mL Crossmatch See Detail See Detail 04/18/22 04/18/22 04/18/22 Range/Units 16:51 19:09 23:20 WBC 1.8 L* (4.5-11.0) K/mm3 RBC 3.19 L (3.65-5.03) M/mm3 Hgb 8.5 L (11.8-15.2) gm/dl Hct 26.7 L D (35.5-45.6) % MCV (84-94) fl MCH 27 L (28-32) pg MCHC (32-34) % RDW 20.4 H (13.2-15.2) % Plt Count 66 L (140-440) K/mm3 Seg Neuts % (Manual) 32.0 L (40.0-70.0) % Lymphocytes % (Manual) 64.0 H (13.4-35.0) % Seg Neutrophils # Man 0.6 L (1.8-7.7) K/mm3 ABG pO2 (80.0-90.0) mm Hg ABG HCO3 (20.0-26.0) mmol/L ABG O2 Saturation (95.0-99.0) % ABG Base Excess (-2.0-3.0) mmol/L ABG Hemoglobin 7.0 L (14.0-18.0) gm/dl Sodium (137-145) mmol/L Potassium (3.6-5.0) mmol/L Chloride (98-107) mmol/L Carbon Dioxide (22-30) mmol/L BUN (9-20) mg/dL Creatinine (0.8-1.3) mg/dL Glucose (75-100) mg/dL POC Glucose 65 L (70-105) mg/dL Lactic Acid (0.7-2.0) mmol/L Calcium (8.4-10.2) mg/dL Phosphorus (2.5-4.5) mg/dL Troponin T (0.00-0.029) ng/mL Crossmatch 04/18/22 04/18/22 04/18/22 Range/Units 23:34 Unknown Unknown WBC (4.5-11.0) K/mm3 RBC (3.65-5.03) M/mm3 Hgb (11.8-15.2) gm/dl Hct (35.5-45.6) % MCV (84-94) fl MCH (28-32) pg MCHC (32-34) % RDW (13.2-15.2) % Plt Count (140-440) K/mm3 Seg Neuts % (Manual) (40.0-70.0) % Lymphocytes % (Manual) (13.4-35.0) % Seg Neutrophils # Man (1.8-7.7) K/mm3 ABG pO2 (80.0-90.0) mm Hg ABG HCO3 (20.0-26.0) mmol/L ABG O2 Saturation (95.0-99.0) % ABG Base Excess (-2.0-3.0) mmol/L ABG Hemoglobin (14.0-18.0) gm/dl Sodium (137-145) mmol/L Potassium (3.6-5.0) mmol/L Chloride 60.0 L (98-107) mmol/L Carbon Dioxide 18 L (22-30) mmol/L BUN 66 H (9-20) mg/dL Creatinine 6.1 H (0.8-1.3) mg/dL Glucose 73 L (75-100) mg/dL POC Glucose 107 H (70-105) mg/dL Lactic Acid 2.40 H* (0.7-2.0) mmol/L Calcium 6.6 L D (8.4-10.2) mg/dL Phosphorus 6.10 H (2.5-4.5) mg/dL Troponin T 0.322 H* (0.00-0.029) ng/mL Crossmatch 04/19/22 04/19/22 04/19/22 Range/Units 04:24 04:45 09:50 WBC (4.5-11.0) K/mm3 RBC (3.65-5.03) M/mm3 Hgb (11.8-15.2) gm/dl Hct (35.5-45.6) % MCV (84-94) fl MCH (28-32) pg MCHC (32-34) % RDW (13.2-15.2) % Plt Count (140-440) K/mm3 Seg Neuts % (Manual) (40.0-70.0) % Lymphocytes % (Manual) (13.4-35.0) % Seg Neutrophils # Man (1.8-7.7) K/mm3 ABG pO2 424.1 H (80.0-90.0) mm Hg ABG HCO3 19.1 L (20.0-26.0) mmol/L ABG O2 Saturation 99.6 H (95.0-99.0) % ABG Base Excess -5.9 L (-2.0-3.0) mmol/L ABG Hemoglobin 8.3 L (14.0-18.0) gm/dl Sodium 132 L D (137-145) mmol/L Potassium 6.0 H D (3.6-5.0) mmol/L Chloride 94.3 L (98-107) mmol/L Carbon Dioxide (22-30) mmol/L BUN 87 H 71 H (9-20) mg/dL Creatinine 7.2 H 6.3 H (0.8-1.3) mg/dL Glucose 132 H 205 H (75-100) mg/dL POC Glucose (70-105) mg/dL Lactic Acid (0.7-2.0) mmol/L Calcium 7.1 L 8.2 L D (8.4-10.2) mg/dL Phosphorus (2.5-4.5) mg/dL Troponin T (0.00-0.029) ng/mL Crossmatch - Imaging and cardiology Chest x-ray: report reviewed, image reviewed (ET tube, improved aeration of L lung)
--- NOTE | 2022-04-19 12:30 | Cat Scan Report ---
CT HEAD WITHOUT CONTRAST INDICATION / CLINICAL INFORMATION: evaluate in the setting of AMS. TECHNIQUE: Axial imaging performed from the skull apex through the skull base without the use of cont rast. Sagittal and coronal reformatted images. All CT scans at this location are performed using CT dose reduction for ALARA by means of automated exposure control. COMPARISON: 03/14/2022 FINDINGS: CEREBRAL PARENCHYMA: Mild cortical volume loss and mild chronic microvascular ischemic changes in the white matter appears stable. No acute parenchymal abnormality. No chronic infarct. HEMORRHAGE: None. EXTRA-AXIAL SPACES: Normal in size and morphology for the patient's age. VENTRICULAR SYSTEM: Normal in size and morphology for the patient's age. MIDLINE SHIFT OR HERNIATION: None. CEREBELLUM / BRAINSTEM: No significant abnormality. CALVARIUM: No significant abnormality. ORBITS: Normal as visualized. PARANASAL SINUSES / MASTOID AIR CELLS: Normal as visualized. SOFT TISSUES of HEAD: No significant abnormality. ADDITIONAL FINDINGS: None. IMPRESSION: No acute intracranial abnormality. No significant change since 03/14/2022. Signer Name: Sixto Reveles Jr, MD Signed: 04/19/2022 12:26 PM Workstation Name: [id number]
[2022-04-19] MEDS: SENNOSIDES/DOCUSATE SODIUM 8.6/50 MG TAB FEEDTUBE SCH ×2 (12:49→21:28)
[2022-04-19] MEDS: LANSOPRAZOLE 30 MG SOLUTAB FEEDTUBE SCH ×2 (12:49→21:30)
--- NOTE | 2022-04-19 13:18 | Consultation ---
History of Present Illness Consult date: 04/19/22 Requesting physician: SHANTI PARR Past History Past Medical History: atrial fib, CAD, heart failure, hypertension, hyperlipi demia, renal failure, other (Dementia, BPH, cardiomyopathy) Past Surgical History: No surgical history Social history: smoking (History of tobacco use). denies: alcohol abuse, prescription drug abuse Family history: no significant family history Medications and Allergies Allergies Allergy/AdvReac Type Severity Reaction Status Date / Time lisinopril Allergy Hives Verified 03/31/22 07:48 Home Medications Medication Instructions Recorded Confirmed Last Taken Type Tamsulosin [Flomax] 0.4 mg PO QDAY #7 cap 08/28/15 04/08/22 Unknown Rx AtorvaSTATin [Lipitor] 40 mg PO QHS 03/11/22 04/08/22 Unknown History metHOTREXate sodium [Methotrexate] 15 mg PO 1XW 03/11/22 04/08/22 Unknown History predniSONE 10 mg PO BID 03/16/22 04/08/22 Unknown History Amiodarone [Cordarone 200 MG TAB] 200 mg PO BID tablet 03/23/22 04/08/22 Unknown Rx Apixaban [Eliquis] 5 mg PO Q12HR tablet 03/23/22 04/08/22 Unknown Rx Aspirin [Aspirin BABY CHEW TAB] 81 mg PO QDAY tab.chew 03/23/22 04/08/22 Unknown Rx Doxazosin [Cardura] 4 mg PO QDAY tablet 03/23/22 04/08/22 Unknown Rx Famotidine [Pepcid] 20 mg PO DAILY tablet 03/23/22 04/08/22 Unknown Rx Metoprolol [Lopressor TAB] 100 mg PO BID tablet 03/23/22 04/08/22 Unknown Rx Nicotine [Habitrol] 21 mg TD QDAY patch 03/23/22 04/08/22 Unknown Rx QUEtiapine [SEROquel] 50 mg PO QHS tablet 03/23/22 04/08/22 Unknown Rx amLODIPine 10 mg PO DAILY #30 tab 03/24/22 04/08/22 Unknown Rx Active Meds: Active Medications Acetaminophen (Acetaminophen 325 Mg Tab) 650 mg PO Q4H PRN PRN Reason: Pain MILD(1-3)/Fever >100.5/[place] Last Admin: 04/18/22 20:09 Dose: 650 mg Albuterol/Ipratropium (Ipratropium/Albuterol Sulfate 3 Ml Ampul.Neb) 1 ampul IH Q4HRT [facility] Last Admin: 04/19/22 08:33 Dose: 1 ampul Amiodarone HCl (Amiodarone 200 Mg Tab) 200 mg PO BID [facility] Last Admin: 04/19/22 09:24 Dose: 200 mg Aspirin (Aspirin 81 Mg Tab Chew) 81 mg PO QDAY [facility] Last Admin: 04/19/22 09:24 Dose: 81 mg Atorvastatin Calcium (Atorvastatin 40 Mg Tab) 40 mg PO QHS [facility] Last Admin: 04/19/22 00:42 Dose: Not Given Dextrose (Dextrose 50% In Water (25gm) 50 Ml Syringe) 25 ml IV Q30MIN PRN; Protocol PRN Reason: Hypoglycemia Epoetin Gordon-epbx (Epoetin Gordon-Epbx 10,000 Unit/1 Ml Vial) 20,000 unit SUB-Q CORINNE PRN PRN Reason: hemodialysis Fentanyl (Fentanyl 100 Mcg/2 Ml Inj) 50 mcg IV Q4HR PRN PRN Reason: Pain , Severe (7-10) Last Admin: 04/18/22 19:46 Dose: 50 mcg Folic Acid (Folic Acid 1 Mg Tab) 1 mg PO DAILY [facility] Last Admin: 04/19/22 09:24 Dose: 1 mg Heparin Sodium (Porcine) (Heparin 10,000 Units/10 Ml Vial) 3,000 unit IV CORINNE PRN PRN Reason: hemodialysis Hydrophilic Ointment (Lip Therapy Vaseline) 1 applic TP Q2HR PRN PRN Reason: Dry Lips Sodium Chloride (Nacl 0.9%) 100 mls @ 999 mls/hr IV CORINNE PRN PRN Reason: Hypotension Last Admin: 04/18/22 15:08 Dose: 999 mls/hr Piperacillin Sod/Tazobactam Sod (Zosyn/Ns 2.25 Gm/50ml) 2.25 gm in 50 mls @ 100 mls/hr IV Q8H [facility] Last Admin: 04/19/22 05:38 Dose: 100 mls/hr NORepinephrine/NS 8 MG-250 ML (Norepinephrine/Ns 8 Mg-250 Ml (Double Conc)) 8 mg in 250 mls @ 14.438 mls/hr IV TITRATE [facility]; Protocol Last Admin: 04/19/22 09:26 Dose: 0.2 mcg/kg/min, 28.875 mls/hr Vasopressin 20 unit/ Sodium (Chloride) 101 mls @ 9.09 mls/hr IV TITR FR[facility]ES[facility]; Protocol Last Admin: 04/19/22 09:43 Dose: 0.03 units/min, 9.09 mls/hr Dopamine HCl/Dextrose (Dopamine 800 Mg/D5w 250ml) 800 mg in 250 mls @ 2.888 mls/hr IV TITR FRANCESCA; Protocol Last Titration: 04/18/22 22:06 Dose: 0 mcg/kg/min, 0 mls/hr Phenylephrine HCl 50 mg/ (Sodium Chloride) 250 mls @ 11.55 mls/hr IV TITR FRANCESCA; Protocol Last Titration: 04/19/22 02:36 Dose: 0 mcg/kg/min, 0 mls/hr Fentanyl Citrate (Fentanyl Drip Premix) 1,000 mcg in 100 mls @ 2.5 mls/hr IV TITR [facility]; Protocol Last Admin: 04/19/22 09:22 Dose: 100 mcg/hr, 10 mls/hr Epinephrine 5 mg/ Sodium (Chloride) 250 mls @ 23.1 mls/hr IV TITR FR[facility]ESCA; Protocol Lansoprazole (Lansoprazole 30 Mg Solutab) 30 mg FEEDTUBE BID [facility] Last Admin: 04/19/22 12:49 Dose: Not Given Morphine Sulfate (Morphine 2 Mg/1 Ml Inj) 2 mg IV Q4H PRN PRN Reason: Pain, Moderate (4-6) Last Admin: 04/17/22 16:49 Dose: 2 mg Morphine Sulfate (Morphine 4 Mg/1 Ml Inj) 4 mg IV Q4H PRN PRN Reason: Pain , Severe (7-10) Multi-Ingred Cream/Lotion/Oil/Oint (Mineral Oil/Petrolatum, White Ophth Oint 3.5 Gm) 1 applic OU Q4HR PRN PRN Reason: Dry Eye(s) Ondansetron HCl (Ondansetron 4 Mg/2 Ml Inj) 4 mg IV Q8H PRN PRN Reason: Nausea And Vomiting Quetiapine Fumarate (Quetiapine 25 Mg Tab) 50 mg PO QHS [facility] Last Admin: 04/18/22 21:32 Dose: Not Given Scopolamine (Scopolamine Transdermal Patch 72 Hr) 1 each TD Q72HR [facility] Last Admin: 04/18/22 11:13 Dose: 1 each Senna/Docusate Sodium (Sennosides/Docusate Sodium 8.6/50 Mg Tab) 1 tab FEEDTUBE BID [facility] Last Admin: 04/19/22 12:49 Dose: Not Given Sodium Chloride (Sodium Chloride 0.9% 10 Ml Flush Syringe) 10 ml IV BID [facility] Last Admin: 04/19/22 09:25 Dose: 10 ml Tamsulosin HCl (Tamsulosin 0.4 Mg Cap) 0.4 mg PO QDAY [facility] Last Admin: 04/19/22 09:24 Dose: 0.4 mg Physical Examination Vital signs: Vital Signs Temp Pulse Resp BP Pulse Ox 102.8 F H 128 H 22 186/97 98 03/31/22 07:36 03/31/22 07:36 03/31/22 07:36 03/31/22 07:36 03/31/22 07:36 Results - Laboratory Findings CBC and BMP: 04/18/22 23:20 04/19/22 09:50 ABG ABG pH 7.352 pH Units (7.350-7.450) 04/19/22 04:45 ABG pCO2 35.2 mm Hg 04/19/22 04:45 ABG pO2 424.1 mm Hg (80.0-90.0) H 04/19/22 04:45 ABG O2 Saturation 99.6 % (95.0-99.0) H 04/19/22 04:45 Abnormal lab findings: Abnormal Labs 03/31/22 03/31/22 04/01/22 08:00 08:00 08:00 WBC 15.6 H RBC 3.46 L Hgb 8.8 L Hct 28.6 L MCV 83 L MCH 26 L MCHC 31 L RDW 18.7 H Plt Count Lymph % (Auto) 4.2 L Posey % (Auto) Eos % (Auto) Lymph # (Auto) 0.7 L [place]y # (Auto) 1.0 H Eos # (Auto) 0.5 H Seg Neutrophils % 85.9 H Seg Neuts % (Manual) Lymphocytes % (Manual) Eosinophils % (Manual) Seg Neutrophils # 13.4 H Seg Neutrophils # Man Lymphocytes # (Manual) ABG pH ABG pO2 ABG HCO3 ABG O2 Saturation ABG Base Excess ABG Hemoglobin Oxyhemoglobin Sodium 146 H Potassium Chloride 111.3 H 114.8 H Carbon Dioxide 11 L 17 L BUN 22 H Creatinine 2.3 H 2.0 H Glucose 55 L POC Glucose Lactic Acid Calcium 8.3 L Phosphorus Troponin T 0.138 H* NT-Pro-B Natriuret Pep 19876 H Total Protein Albumin 2.8 L HDL Cholesterol 38 L Urine Creatinine Crossmatch 04/01/22 04/02/22 04/02/22 08:54 04:40 04:40 WBC 12.6 H RBC 2.81 L 2.59 L Hgb 7.4 L 6.8 L Hct 22.6 L D 20.6 L MCV 81 L 80 L MCH 26 L 26 L MCHC RDW 19.1 H 19.0 H Plt Count Lymph % (Auto) Posey % (Auto) Eos % (Auto) Lymph # (Auto) Posey # (Auto) Eos # (Auto) Seg Neutrophils % Seg Neuts % (Manual) Lymphocytes % (Manual) Eosinophils % (Manual) Seg Neutrophils # Seg Neutrophils # Man Lymphocytes # (Manual) ABG pH ABG pO2 ABG HCO3 ABG O2 Saturation ABG Base Excess ABG Hemoglobin Oxyhemoglobin Sodium Potassium Chloride 113.9 H Carbon Dioxide 17 L BUN 21 H Creatinine 2.2 H Glucose POC Glucose Lactic Acid Calcium 8.3 L Phosphorus Troponin T NT-Pro-B Natriuret Pep Total Protein Albumin HDL Cholesterol Urine Creatinine Crossmatch 04/02/22 04/03/22 04/03/22 11:45 05:05 05:05 WBC RBC Hgb 7.2 L Hct 22.3 L MCV MCH MCHC RDW Plt Count Lymph % (Auto) Posey % (Auto) Eos % (Auto) Lymph # (Auto) Posey # (Auto) Eos # (Auto) Seg Neutrophils % Seg Neuts % (Manual) Lymphocytes % (Manual) Eosinophils % (Manual) Seg Neutrophils # Seg Neutrophils # Man Lymphocytes # (Manual) ABG pH ABG pO2 ABG HCO3 ABG O2 Saturation ABG Base Excess ABG Hemoglobin Oxyhemoglobin Sodium Potassium Chloride Carbon Dioxide BUN Creatinine 2.0 H Glucose POC Glucose Lactic Acid Calcium Phosphorus Troponin T NT-Pro-B Natriuret Pep Total Protein Albumin HDL Cholesterol Urine Creatinine Crossmatch See Detail 04/03/22 04/04/22 04/04/22 12:29 11:38 11:38 WBC RBC Hgb 7.4 L Hct 23.3 L MCV MCH MCHC RDW Plt Count Lymph % (Auto) Posey % (Auto) Eos % (Auto) Lymph # (Auto) Posey # (Auto) Eos # (Auto) Seg Neutrophils % Seg Neuts % (Manual) Lymphocytes % (Manual) Eosinophils % (Manual) Seg Neutrophils # Seg Neutrophils # Man Lymphocytes # (Manual) ABG pH ABG pO2 ABG HCO3 ABG O2 Saturation ABG Base Excess ABG Hemoglobin Oxyhemoglobin Sodium Potassium Chloride 115.6 H Carbon Dioxide 17 L BUN 24 H Creatinine 2.3 H Glucose 67 L POC Glucose Lactic Acid Calcium Phosphorus Troponin T 0.135 H* NT-Pro-B Natriuret Pep Total Protein Albumin HDL Cholesterol Urine Creatinine Crossmatch 04/05/22 04/05/22 04/05/22 05:06 05:06 18:16 WBC RBC 2.72 L Hgb 7.3 L Hct 22.4 L MCV 82 L MCH 27 L MCHC RDW 20.5 H Plt Count Lymph % (Auto) 13.2 L Posey % (Auto) 10.1 H Eos % (Auto) 6.6 H Lymph # (Auto) 1.1 L [place]y # (Auto) Eos # (Auto) 0.5 H Seg Neutrophils % Seg Neuts % (Manual) 93.0 H Lymphocytes % (Manual) 2.0 L Eosinophils % (Manual) Seg Neutrophils # Seg Neutrophils # Man Lymphocytes # (Manual) 0.2 L ABG pH ABG pO2 ABG HCO3 ABG O2 Saturation ABG Base Excess ABG Hemoglobin Oxyhemoglobin Sodium Potassium Chloride 118.6 H Carbon Dioxide 17 L BUN 26 H Creatinine 2.3 H Glucose POC Glucose Lactic Acid Calcium Phosphorus Troponin T NT-Pro-B Natriuret Pep Total Protein 5.8 L Albumin 2.0 L HDL Cholesterol Urine Creatinine 82.0 H Crossmatch 04/05/22 04/06/22 04/07/22 22:03 05:46 08:20 WBC RBC Hgb Hct MCV MCH MCHC RDW Plt Count Lymph % (Auto) Posey % (Auto) Eos % (Auto) Lymph # (Auto) Posey # (Auto) Eos # (Auto) Seg Neutrophils % Seg Neuts % (Manual) Lymphocytes % (Manual) Eosinophils % (Manual) Seg Neutrophils # Seg Neutrophils # Man Lymphocytes # (Manual) ABG pH ABG pO2 ABG HCO3 ABG O2 Saturation ABG Base Excess ABG Hemoglobin Oxyhemoglobin Sodium 149 H Potassium Chloride 117.4 H 118.1 H Carbon Dioxide 16 L 19 L BUN 28 H 30 H Creatinine 2.9 H 3.2 H Glucose 72 L POC Glucose 108 H Lactic Acid Calcium Phosphorus Troponin T NT-Pro-B Natriuret Pep Total Protein Albumin HDL Cholesterol Urine Creatinine Crossmatch 04/08/22 04/08/22 04/09/22 04:47 21:43 04:30 WBC RBC 2.82 L Hgb 7.4 L Hct 23.0 L MCV 82 L MCH 26 L MCHC RDW 20.8 H Plt Count Lymph % (Auto) Posey % (Auto) Eos % (Auto) 9.0 H Lymph # (Auto) P[place]y # (Auto) Eos # (Auto) 0.6 H Seg Neutrophils % Seg Neuts % (Manual) Lymphocytes % (Manual) Eosinophils % (Manual) Seg Neutrophils # Seg Neutrophils # Man Lymphocytes # (Manual) ABG pH ABG pO2 ABG HCO3 ABG O2 Saturation ABG Base Excess ABG Hemoglobin Oxyhemoglobin Sodium 148 H Potassium Chloride 118.5 H Carbon Dioxide 20 L BUN 32 H Creatinine 3.2 H Glucose POC Glucose 136 H Lactic Acid Calcium Phosphorus Troponin T NT-Pro-B Natriuret Pep Total Protein Albumin HDL Cholesterol Urine Creatinine Crossmatch 04/09/22 04/09/22 04/09/22 04:30 11:16 22:10 WBC RBC Hgb Hct MCV MCH MCHC RDW Plt Count Lymph % (Auto) Posey % (Auto) Eos % (Auto) Lymph # (Auto) Posey # (Auto) Eos # (Auto) Seg Neutrophils % Seg Neuts % (Manual) Lymphocytes % (Manual) Eosinophils % (Manual) Seg Neutrophils # Seg Neutrophils # Man Lymphocytes # (Manual) ABG pH ABG pO2 ABG HCO3 ABG O2 Saturation ABG Base Excess ABG Hemoglobin Oxyhemoglobin Sodium 149 H Potassium Chloride 119.2 H Carbon Dioxide 20 L BUN 35 H Creatinine 4.1 H Glucose POC Glucose 120 H 111 H Lactic Acid Calcium Phosphorus Troponin T NT-Pro-B Natriuret Pep Total Protein Albumin HDL Cholesterol Urine Creatinine Crossmatch 04/10/22 04/10/22 04/11/22 04:19 12:06 13:55 WBC RBC 3.05 L Hgb 7.8 L Hct 24.7 L MCV 81 L MCH 26 L MCHC RDW 20.9 H Plt Count Lymph % (Auto) 12.1 L Posey % (Auto) Eos % (Auto) 6.1 H Lymph # (Auto) 0.7 L [place]y # (Auto) Eos # (Auto) Seg Neutrophils % 79.1 H Seg Neuts % (Manual) Lymphocytes % (Manual) Eosinophils % (Manual) Seg Neutrophils # Seg Neutrophils # Man Lymphocytes # (Manual) ABG pH ABG pO2 ABG HCO3 ABG O2 Saturation ABG Base Excess ABG Hemoglobin Oxyhemoglobin Sodium Potassium Chloride 115.5 H Carbon Dioxide 20 L BUN 38 H Creatinine 4.0 H Glucose 101 H POC Glucose 113 H Lactic Acid Calcium Phosphorus Troponin T NT-Pro-B Natriuret Pep Total Protein Albumin HDL Cholesterol Urine Creatinine Crossmatch 04/11/22 04/12/22 04/12/22 13:55 04:40 04:40 WBC RBC 2.75 L Hgb 6.9 L Hct 22.1 L MCV 80 L MCH 25 L MCHC 31 L RDW 20.5 H Plt Count Lymph % (Auto) 11.3 L [place]y % (Auto) Eos % (Auto) 4.8 H Lymph # (Auto) 0.9 L [place]y # (Auto) Eos # (Auto) Seg Neutrophils % 81.3 H Seg Neuts % (Manual) Lymphocytes % (Manual) Eosinophils % (Manual) Seg Neutrophils # Seg Neutrophils # Man Lymphocytes # (Manual) ABG pH ABG pO2 ABG HCO3 ABG O2 Saturation ABG Base Excess ABG Hemoglobin Oxyhemoglobin Sodium Potassium 5.8 H 5.4 H Chloride 110.9 H 111.6 H Carbon Dioxide BUN 48 H 51 H Creatinine 5.3 H 5.8 H Glucose 110 H POC Glucose Lactic Acid Calcium Phosphorus Troponin T NT-Pro-B Natriuret Pep Total Protein Albumin HDL Cholesterol Urine Creatinine Crossmatch 04/12/22 04/12/22 04/13/22 15:12 23:27 06:02 WBC RBC Hgb Hct MCV MCH MCHC RDW Plt Count Lymph % (Auto) Posey % (Auto) Eos % (Auto) Lymph # (Auto) Posey # (Auto) Eos # (Auto) Seg Neutrophils % Seg Neuts % (Manual) Lymphocytes % (Manual) Eosinophils % (Manual) Seg Neutrophils # Seg Neutrophils # Man Lymphocytes # (Manual) ABG pH ABG pO2 ABG HCO3 ABG O2 Saturation ABG Base Excess ABG Hemoglobin Oxyhemoglobin Sodium Potassium Chloride 110.6 H Carbon Dioxide BUN 54 H Creatinine 5.9 H Glucose POC Glucose 109 H 111 H Lactic Acid Calcium Phosphorus Troponin T NT-Pro-B Natriuret Pep Total Protein Albumin HDL Cholesterol Urine Creatinine Crossmatch 04/13/22 04/13/22 04/13/22 14:19 14:19 23:50 WBC 4.4 L RBC 2.75 L Hgb 7.0 L Hct 22.4 L MCV 81 L MCH 25 L MCHC 31 L RDW 20.9 H Plt Count Lymph % (Auto) Posey % (Auto) Eos % (Auto) 10.7 H Lymph # (Auto) 1.0 L [place]y # (Auto) Eos # (Auto) 0.5 H Seg Neutrophils % Seg Neuts % (Manual) Lymphocytes % (Manual) Eosinophils % (Manual) Seg Neutrophils # Seg Neutrophils # Man Lymphocytes # (Manual) ABG pH ABG pO2 ABG HCO3 ABG O2 Saturation ABG Base Excess ABG Hemoglobin Oxyhemoglobin Sodium 146 H Potassium Chloride 111.2 H Carbon Dioxide BUN 62 H Creatinine 6.6 H Glucose POC Glucose 118 H Lactic Acid Calcium Phosphorus Troponin T NT-Pro-B Natriuret Pep Total Protein Albumin HDL Cholesterol Urine Creatinine Crossmatch 04/14/22 04/14/22 04/14/22 04:50 04:50 08:44 WBC 3.5 L RBC 2.70 L Hgb 6.6 L Hct 21.6 L MCV 80 L MCH 25 L MCHC 31 L RDW 21.2 H Plt Count Lymph % (Auto) P[place]y % (Auto) Eos % (Auto) Lymph # (Auto) P[place]y # (Auto) Eos # (Auto) Seg Neutrophils % Seg Neuts % (Manual) 73.0 H Lymphocytes % (Manual) Eosinophils % (Manual) 5.0 H Seg Neutrophils # Seg Neutrophils # Man Lymphocytes # (Manual) 0.7 L ABG pH ABG pO2 ABG HCO3 ABG O2 Saturation ABG Base Excess ABG Hemoglobin Oxyhemoglobin Sodium Potassium Chloride Carbon Dioxide BUN 34 H Creatinine 4.3 H Glucose 107 H POC Glucose Lactic Acid Calcium 7.8 L Phosphorus Troponin T NT-Pro-B Natriuret Pep Total Protein Albumin HDL Cholesterol Urine Creatinine Crossmatch See Detail 04/15/22 04/15/22 04/15/22 09:41 09:41 22:22 WBC RBC 3.03 L Hgb 8.0 L Hct 24.8 L MCV 82 L MCH 26 L MCHC RDW 19.8 H Plt Count Lymph % (Auto) 11.8 L P[place]y % (Auto) Eos % (Auto) 5.4 H Lymph # (Auto) 0.9 L [place] # (Auto) Eos # (Auto) Seg Neutrophils % 80.1 H Seg Neuts % (Manual) Lymphocytes % (Manual) Eosinophils % (Manual) Seg Neutrophils # Seg Neutrophils # Man Lymphocytes # (Manual) ABG pH ABG pO2 ABG HCO3 ABG O2 Saturation ABG Base Excess ABG Hemoglobin Oxyhemoglobin Sodium 136 L Potassium 3.5 L Chloride Carbon Dioxide BUN 45 H Creatinine 6.1 H Glucose 106 H POC Glucose 123 H Lactic Acid Calcium Phosphorus Troponin T NT-Pro-B Natriuret Pep Total Protein Albumin HDL Cholesterol Urine Creatinine Crossmatch 04/16/22 04/16/22 04/16/22 04:55 04:55 16:44 WBC RBC 3.02 L Hgb 7.9 L Hct 24.2 L MCV 80 L MCH 26 L MCHC RDW 19.9 H Plt Count 128 L Lymph % (Auto) 11.1 L P[place]y % (Auto) Eos % (Auto) Lymph # (Auto) 0.8 L [place] # (Auto) Eos # (Auto) Seg Neutrophils % 84.8 H Seg Neuts % (Manual) Lymphocytes % (Manual) Eosinophils % (Manual) Seg Neutrophils # Seg Neutrophils # Man Lymphocytes # (Manual) ABG pH ABG pO2 ABG HCO3 ABG O2 Saturation ABG Base Excess ABG Hemoglobin Oxyhemoglobin Sodium Potassium Chloride Carbon Dioxide BUN 27 H Creatinine 4.3 H Glucose 126 H POC Glucose 120 H Lactic Acid Calcium Phosphorus Troponin T NT-Pro-B Natriuret Pep Total Protein Albumin HDL Cholesterol Urine Creatinine Crossmatch 04/16/22 04/17/22 04/17/22 23:37 06:03 06:03 WBC 11.2 H RBC 3.37 L Hgb 8.6 L Hct 27.5 L MCV 82 L MCH 26 L MCHC 31 L RDW 20.4 H Plt Count 121 L Lymph % (Auto) Posey % (Auto) Eos % (Auto) Lymph # (Auto) Posey # (Auto) Eos # (Auto) Seg Neutrophils % Seg Neuts % (Manual) 96.0 H Lymphocytes % (Manual) 3.0 L Eosinophils % (Manual) Seg Neutrophils # Seg Neutrophils # Man 10.8 H Lymphocytes # (Manual) 0.3 L ABG pH ABG pO2 ABG HCO3 ABG O2 Saturation ABG Base Excess ABG Hemoglobin Oxyhemoglobin Sodium 135 L Potassium Chloride 94.7 L Carbon Dioxide BUN 50 H Creatinine 5.6 H Glucose POC Glucose 125 H Lactic Acid Calcium Phosphorus Troponin T NT-Pro-B Natriuret Pep Total Protein Albumin HDL Cholesterol Urine Creatinine Crossmatch 04/18/22 04/18/22 04/18/22 03:51 04:24 04:24 WBC RBC 2.96 L Hgb 7.8 L Hct 23.3 L MCV 79 L MCH 26 L MCHC RDW 20.6 H Plt Count 97 L Lymph % (Auto) 10.2 L [place]y % (Auto) Eos % (Auto) Lymph # (Auto) 0.5 L [place] # (Auto) Eos # (Auto) Seg Neutrophils % 86.5 H Seg Neuts % (Manual) Lymphocytes % (Manual) Eosinophils % (Manual) Seg Neutrophils # Seg Neutrophils # Man Lymphocytes # (Manual) ABG pH 7.516 H ABG pO2 44.2 L ABG HCO3 ABG O2 Saturation 81.8 L ABG Base Excess ABG Hemoglobin 8.6 L Oxyhemoglobin 80.1 L Sodium Potassium 5.1 H Chloride 96.5 L Carbon Dioxide BUN 70 H Creatinine 6.9 H Glucose POC Glucose Lactic Acid Calcium Phosphorus Troponin T NT-Pro-B Natriuret Pep Total Protein Albumin HDL Cholesterol Urine Creatinine Crossmatch 04/18/22 04/18/22 04/18/22 15:30 15:39 16:51 WBC 0.8 L* RBC 2.42 L Hgb 6.2 L Hct 19.8 L* MCV 82 L MCH 26 L MCHC 31 L RDW 20.8 H Plt Count 82 L Lymph % (Auto) Posey % (Auto) Eos % (Auto) Lymph # (Auto) P[place]y # (Auto) Eos # (Auto) Seg Neutrophils % Seg Neuts % (Manual) Lymphocytes % (Manual) Eosinophils % (Manual) Seg Neutrophils # Seg Neutrophils # Man Lymphocytes # (Manual) ABG pH ABG pO2 ABG HCO3 ABG O2 Saturation ABG Base Excess ABG Hemoglobin 7.0 L Oxyhemoglobin Sodium Potassium Chloride Carbon Dioxide BUN Creatinine Glucose POC Glucose Lactic Acid Calcium Phosphorus Troponin T NT-Pro-B Natriuret Pep Total Protein Albumin HDL Cholesterol Urine Creatinine Crossmatch See Detail 04/18/22 04/18/22 04/18/22 19:09 23:20 23:34 WBC 1.8 L* RBC 3.19 L Hgb 8.5 L Hct 26.7 L D MCV MCH 27 L MCHC RDW 20.4 H Plt Count 66 L Lymph % (Auto) Posey % (Auto) Eos % (Auto) Lymph # (Auto) [place]y # (Auto) Eos # (Auto) Seg Neutrophils % Seg Neuts % (Manual) 32.0 L Lymphocytes % (Manual) 64.0 H Eosinophils % (Manual) Seg Neutrophils # Seg Neutrophils # Man 0.6 L Lymphocytes # (Manual) ABG pH ABG pO2 ABG HCO3 ABG O2 Saturation ABG Base Excess ABG Hemoglobin Oxyhemoglobin Sodium Potassium Chloride Carbon Dioxide BUN Creatinine Glucose POC Glucose 65 L 107 H Lactic Acid Calcium Phosphorus Troponin T NT-Pro-B Natriuret Pep Total Protein Albumin HDL Cholesterol Urine Creatinine Crossmatch 04/18/22 04/18/22 04/19/22 Unknown Unknown 04:24 WBC RBC Hgb Hct MCV MCH MCHC RDW Plt Count Lymph % (Auto) [place]y % (Auto) Eos % (Auto) Lymph # (Auto) P[place]y # (Auto) Eos # (Auto) Seg Neutrophils % Seg Neuts % (Manual) Lymphocytes % (Manual) Eosinophils % (Manual) Seg Neutrophils # Seg Neutrophils # Man Lymphocytes # (Manual) ABG pH ABG pO2 ABG HCO3 ABG O2 Saturation ABG Base Excess ABG Hemoglobin Oxyhemoglobin Sodium Potassium 6.0 H D Chloride 60.0 L Carbon Dioxide 18 L BUN 66 H 87 H Creatinine 6.1 H 7.2 H Glucose 73 L 132 H POC Glucose Lactic Acid 2.40 H* Calcium 6.6 L D 7.1 L Phosphorus 6.10 H Troponin T 0.322 H* NT-Pro-B Natriuret Pep Total Protein Albumin HDL Cholesterol Urine Creatinine Crossmatch 04/19/22 04/19/22 04:45 09:50 WBC RBC Hgb Hct MCV MCH MCHC RDW Plt Count Lymph % (Auto) Posey % (Auto) Eos % (Auto) Lymph # (Auto) Posey # (Auto) Eos # (Auto) Seg Neutrophils % Seg Neuts % (Manual) Lymphocytes % (Manual) Eosinophils % (Manual) Seg Neutrophils # Seg Neutrophils # Man Lymphocytes # (Manual) ABG pH ABG pO2 424.1 H ABG HCO3 19.1 L ABG O2 Saturation 99.6 H ABG Base Excess -5.9 L ABG Hemoglobin 8.3 L Oxyhemoglobin Sodium 132 L D Potassium Chloride 94.3 L Carbon Dioxide BUN 71 H Creatinine 6.3 H Glucose 205 H POC Glucose Lactic Acid Calcium 8.2 L D Phosphorus Troponin T NT-Pro-B Natriuret Pep Total Protein Albumin HDL Cholesterol Urine Creatinine Crossmatch
--- NOTE | 2022-04-19 14:22 | Progress Note ---
Assessment and Plan Patient is a 67-year-old male with a past medical history of cardiomyopathy (EF 25 to 30%), A. fib, CKD, hypertension, and dementia who was brought to the ED by EMS for fever and SOB x3 days. S/p cardiac arrest Sepsis PNA VRE-ID following NSTEMI suspect type II ARF on HD-nephrology following Cardiomyopathy A. fib Hypertension GI bleed Anemia Vascular dementia Echo 03/09/2022-EF 25 to 30%. Severe global hypokinesis of left ventricle. Moderate concentric LVH. Mild diastolic dysfunction is present impaired relaxation pattern. Moderate aortic regurgitation. No pericardial effusion Plan: Patient transferred to ICU following PEA cardiac arrest after reportedly becoming hypotensive and hypoxic Telemetry reviewed : Remained currently sinus rhythm with PACs and episode of SVT Continue Amio 200mg PO BID, aspirin, and statin Will hold GDMT due to soft BP requiring pressors. Patient not a candidate for anticoagulation due to anemia with positive occult blood Patient now a DNR Echo pending Overall poor prognosis Patient seen in conjunction with Dr. Anaya who agrees with this plan of care - Patient Problems (1) Sepsis Current Visit: Yes Status: Acute (2) MARIE (acute kidney injury) Current Visit: No Status: Acute (3) Anemia Current Visit: Yes Status: Acute (4) CKD (chronic kidney disease) Current Visit: No Status: Acute (5) Cardiomyopathy Current Visit: Yes Status: Chronic (6) Elevated troponin Current Visit: No Status: Acute (7) PNA (pneumonia) Current Visit: Yes Status: Acute Qualifiers: Pneumonia type: aspiration pneumonia (8) Vascular dementia Current Visit: Yes Status: Chronic Qualifiers: Dementia behavioral disturbance: with behavioral disturbance Qualified Code(s): F01.51 - Vascular dementia with behavioral disturbance Subjective Date of service: 04/19/22 Principal diagnosis: anemia Interval history: Patient has been transferred to ICU following cardiac arrest Patient sinus rhythm 70s to 80s with SVT on monitor Objective Vital Signs Temp Pulse Pulse Resp BP Pulse Ox 04/19/22 13:50 131 H 24 125/75 100 04/19/22 13:40 84 23 125/75 100 04/19/22 13:30 85 23 121/73 100 04/19/22 13:20 87 24 126/75 100 04/19/22 13:10 126/75 100 04/19/22 13:00 85 22 125/75 100 04/19/22 12:53 89 129/72 04/19/22 12:00 97.2 F L 04/19/22 11:40 97.2 F L 04/19/22 11:30 86 25 H 133/73 100 04/19/22 11:20 84 24 130/74 100 04/19/22 11:10 91 H 25 H 129/73 100 04/19/22 11:00 84 25 H 129/74 100 04/19/22 10:50 87 24 120/72 04/19/22 10:40 92 H 26 H 104/58 04/19/22 10:30 87 24 127/72 04/19/22 10:20 86 24 125/71 04/19/22 10:10 87 24 124/70 04/19/22 10:00 87 28 H 124/73 04/19/22 09:50 87 24 118/71 04/19/22 09:40 83 24 129/74 04/19/22 09:30 87 25 H 125/73 04/19/22 09:25 85 127/86 04/19/22 09:20 86 26 H 127/73 04/19/22 09:10 85 24 121/72 04/19/22 09:00 84 24 126/73 04/19/22 08:50 84 25 H 84/54 04/19/22 08:40 92 H 25 H 84/54 04/19/22 08:30 91 H 25 H 80/51 04/19/22 08:20 93 H 27 H 78/51 04/19/22 08:18 04/19/22 08:16 96 H 96 H 22 04/19/22 08:10 93 H 26 H 84/52 04/19/22 08:00 98.6 F 91 H 25 H 89/57 04/19/22 07:50 90 27 H 119/78 04/19/22 07:40 88 26 H 108/66 100 04/19/22 07:30 88 27 H 107/67 04/19/22 07:20 92 H 26 H 118/73 100 04/19/22 07:13 98.6 F 04/19/22 07:10 90 26 H 119/72 04/19/22 07:00 88 27 H 107/71 100 04/19/22 06:50 86 23 104/65 100 04/19/22 06:40 88 28 H 109/63 100 04/19/22 06:30 88 29 H 109/63 04/19/22 06:20 93 H 20 124/76 04/19/22 06:10 88 28 H 109/74 100 04/19/22 06:00 89 30 H 113/72 100 04/19/22 05:59 100 04/19/22 05:50 87 29 H 115/69 04/19/22 05:40 86 28 H 118/74 100 04/19/22 05:34 98.6 F 88 31 H 04/19/22 05:30 89 28 H 116/71 04/19/22 05:20 88 27 H 124/68 04/19/22 05:10 88 30 H 117/72 04/19/22 05:00 90 30 H 119/73 04/19/22 04:50 87 28 H 128/75 04/19/22 04:45 89 15 110/77 04/19/22 04:40 89 30 H 110/77 04/19/22 04:30 89 28 H 115/71 04/19/22 04:20 87 29 H 123/74 04/19/22 04:10 89 30 H 130/73 04/19/22 04:00 89 30 H 138/76 04/19/22 03:50 90 30 H 137/80 04/19/22 03:40 87 29 H 135/74 04/19/22 03:30 88 30 H 135/78 04/19/22 03:20 128 H 21 133/76 04/19/22 03:10 134 H 32 H 144/83 04/19/22 03:07 99 F 04/19/22 03:00 90 30 H 148/78 04/19/22 02:50 90 30 H 138/75 04/19/22 02:40 89 30 H 143/81 04/19/22 02:30 87 32 H 135/79 04/19/22 02:20 93 H 28 H 152/84 04/19/22 02:10 90 32 H 148/79 04/19/22 02:00 98.4 F 92 H 90 31 H 143/81 98 04/19/22 01:50 90 27 H 135/82 100 04/19/22 01:40 100 H 22 143/96 93 04/19/22 01:30 110 H 36 H 144/84 100 04/19/22 01:20 93 H 31 H 144/84 100 04/19/22 01:10 93 H 32 H 151/97 100 04/19/22 01:00 135 H 31 H 151/82 96 04/19/22 00:50 94 H 31 H 151/82 99 04/19/22 00:45 98.6 F 04/19/22 00:40 96 H 31 H 146/84 94 04/19/22 00:35 98 H 19 146/84 100 04/19/22 00:31 99 H 04/19/22 00:30 139 H 31 H 153/85 04/19/22 00:20 100 H 29 H 150/90 100 04/19/22 00:10 132 H 31 H 141/87 04/19/22 00:00 132 H 33 H 145/95 04/18/22 23:50 131 H 31 H 145/95 04/18/22 23:40 133 H 30 H 143/87 04/18/22 23:30 132 H 24 151/97 04/18/22 23:28 99.9 F H 137 H 04/18/22 23:20 133 H 31 H 113/98 04/18/22 23:18 133 H 25 H 113/98 04/18/22 23:10 133 H 30 H 113/98 04/18/22 23:00 138 H 22 139/83 04/18/22 22:50 144 H 32 H 129/80 04/18/22 22:40 134 H 35 H 124/94 04/18/22 22:30 140 H 36 H 127/91 04/18/22 22:20 143 H 34 H 103/67 100 04/18/22 22:10 134 H 33 H 124/85 100 04/18/22 22:00 99.8 F H 109 H 140 H 34 H 121/70 98 04/18/22 21:53 99.8 F H 04/18/22 21:50 109 H 30 H 121/70 04/18/22 21:40 142 H 32 H 103/67 98 04/18/22 21:33 135 H 103/67 04/18/22 21:30 149 H 32 H 103/67 100 04/18/22 21:20 117 H 27 H 112/76 99 04/18/22 21:19 100.5 F H 04/18/22 21:17 100.5 F H 04/18/22 21:10 162 H 35 H 85/64 04/18/22 21:00 110 H 28 H 99/69 100 04/18/22 20:50 155 H 32 H 96/62 78 L 04/18/22 20:40 101 F H 188 H 35 H 102/78 04/18/22 20:34 101 F H 04/18/22 20:30 101 F H 109 H 30 H 100 04/18/22 20:21 107 H 31 H 102/78 100 04/18/22 20:11 113 H 30 H 114/51 100 04/18/22 20:02 101.8 F H 04/18/22 20:00 162 H 18 103/66 99 04/18/22 19:51 118 H 26 H 97/77 100 04/18/22 19:46 27 H 04/18/22 19:41 178 H 26 H 113/63 100 04/18/22 19:31 134 H 26 H 113/63 100 04/18/22 19:25 102 F H 04/18/22 19:21 156 H 30 H 89/59 04/18/22 19:10 121 H 31 H 106/66 95 04/18/22 19:00 124 H 30 H 105/54 98 04/18/22 18:51 124 H 30 H 108/69 98 04/18/22 18:40 123 H 29 H 97/59 98 04/18/22 18:31 122 H 26 H 82/64 98 04/18/22 18:20 126 H 31 H 117/63 97 04/18/22 18:11 112 H 18 91/50 100 04/18/22 18:00 123 H 31 H 103/61 97 04/18/22 17:50 122 H 22 93/63 95 04/18/22 17:40 124 H 27 H 90/68 97 04/18/22 17:33 123 H 103/61 93 04/18/22 17:30 124 H 25 H 82/61 94 04/18/22 17:20 122 H 28 H 99/51 100 04/18/22 17:10 122 H 26 H 86/62 98 04/18/22 17:00 118 H 19 79/58 97 04/18/22 16:50 119 H 30 H 91/58 96 04/18/22 16:40 117 H 29 H 96/53 96 04/18/22 16:30 116 H 30 H 91/59 94 04/18/22 16:20 117 H 29 H 78/55 96 04/18/22 16:10 117 H 24 80/58 95 04/18/22 16:00 99.6 F 115 H 24 83/55 95 04/18/22 15:50 115 H 27 H 81/59 92 04/18/22 15:40 108 H 21 80/54 89 04/18/22 15:30 107 H 20 78/50 89 04/18/22 15:20 141 H 22 197/103 97 04/18/22 15:10 100 H 9 L 59/36 04/18/22 15:01 113 H 15 97/46 64 L 04/18/22 15:00 116 H 24 94 04/18/22 14:51 62 18 56/33 04/18/22 14:40 82 16 51/27 76 L 04/18/22 14:32 68 121/98 98 04/18/22 14:30 88 16 41/23 04/18/22 14:24 47 L 8 L - Physical Examination General: Other (Intubated) HEENT: Positive: Mucus Membranes Dry Neck: Positive: neck supple, trachea midline Cardiac: Positive: Reg Rate and Rhythm Lungs: Positive: Ventilated Respirations Neuro: Positive: Grossly Intact Abdomen: Positive: Soft, Active Bowel Sounds. Negative: Tender Skin: Negative: Rash Musculoskeletal: No Fluid Collection Extremities: Present: upper extr. pulses, edema (Upper right extra) - Labs and Meds CBC 04/18/22 04/18/22 Range/Units 15:30 23:20 WBC 0.8 L* 1.8 L* (4.5-11.0) K/mm3 RBC 2.42 L 3.19 L (3.65-5.03) M/mm3 Hgb 6.2 L 8.5 L (11.8-15.2) gm/dl Hct 19.8 L* 26.7 L D (35.5-45.6) % Plt Count 82 L 66 L (140-440) K/mm3 Comprehensive Metabolic Panel 04/18/22 04/19/22 04/19/22 Range/Units Unknown 04:24 09:50 Sodium 139 139 132 L D (137-145) mmol/L Potassium 4.5 6.0 H D 4.8 (3.6-5.0) mmol/L Chloride 60.0 L 98.9 94.3 L (98-107) mmol/L Carbon Dioxide 18 L 22 28 (22-30) mmol/L BUN 66 H 87 H 71 H (9-20) mg/dL Creatinine 6.1 H 7.2 H 6.3 H (0.8-1.3) mg/dL Glucose 73 L 132 H 205 H (75-100) mg/dL Calcium 6.6 L D 7.1 L 8.2 L D (8.4-10.2) mg/dL - Imaging and Cardiology Echo: report reviewed - Telemetry EKG Rhythm: Sinus Rhythm - EKG Sinus rhythms and dysrhythmias: sinus rhythm Chamber hypertrophy or enlargement: left ventricular hypertro
--- NOTE | 2022-04-19 18:36 | Progress Note ---
Assessment and Plan 67 y/o male with acute respiratory failure secondary to what is most likely a mucous plug, now with cardiac arrest, cardiovascular collapse and acute respiratory failure requiring intubation. 04/19/22: CXR is now clear. Down to 50%. Wean pressors for MAPS >65. 1. ordered CTP with nebs multiple times daily 2. NT suction at least qshift 3. Vest therapy if available 4. Suggest putting left lung down until clear, nursing can wedge patient to that side 5. Guarded prognosis. Subjective Date of service: 04/19/22 Principal diagnosis: anemia Interval history: Still on Levo and vaso, off epi and dopamine. Placed on sedation last night se condary to discordant breathing based on documentation. Also documented that I was informed of this but I was not the physician public information specialist last night. Objective Vital Signs - 12hr 04/19/22 04/19/22 04/19/22 06:40 06:50 07:00 Temperature Pulse Rate 88 86 88 Pulse Rate [ From Monitor] Respiratory 28 H 23 27 H Rate Blood Pressure 109/63 104/65 107/71 O2 Sat by Pulse 100 100 100 Oximetry 04/19/22 04/19/22 04/19/22 07:10 07:13 07:20 Temperature 98.6 F Pulse Rate 90 92 H Pulse Rate [ From Monitor] Respiratory 26 H 26 H Rate Blood Pressure 119/72 118/73 O2 Sat by Pulse 100 100 Oximetry 04/19/22 04/19/22 04/19/22 07:30 07:40 07:50 Temperature Pulse Rate 88 88 90 Pulse Rate [ From Monitor] Respiratory 27 H 26 H 27 H Rate Blood Pressure 107/67 108/66 119/78 O2 Sat by Pulse 100 100 Oximetry 04/19/22 04/19/22 04/19/22 08:00 08:10 08:16 Temperature 98.6 F Pulse Rate 91 H 93 H 96 H Pulse Rate [ 96 H From Monitor] Respiratory 25 H 26 H 22 Rate Blood Pressure 89/57 84/52 O2 Sat by Pulse 100 100 Oximetry 04/19/22 04/19/22 04/19/22 08:18 08:20 08:30 Temperature Pulse Rate 93 H 91 H Pulse Rate [ From Monitor] Respiratory 27 H 25 H Rate Blood Pressure 78/51 80/51 O2 Sat by Pulse 100 100 100 Oximetry 04/19/22 04/19/22 04/19/22 08:40 08:50 09:00 Temperature Pulse Rate 92 H 84 84 Pulse Rate [ From Monitor] Respiratory 25 H 25 H 24 Rate Blood Pressure 84/54 84/54 126/73 O2 Sat by Pulse 100 100 100 Oximetry 04/19/22 04/19/22 04/19/22 09:10 09:20 09:25 Temperature Pulse Rate 85 86 85 Pulse Rate [ From Monitor] Respiratory 24 26 H Rate Blood Pressure 121/72 127/73 127/86 O2 Sat by Pulse 100 100 Oximetry 04/19/22 04/19/22 04/19/22 09:30 09:40 09:50 Temperature Pulse Rate 87 83 87 Pulse Rate [ From Monitor] Respiratory 25 H 24 24 Rate Blood Pressure 125/73 129/74 118/71 O2 Sat by Pulse 100 100 100 Oximetry 04/19/22 04/19/22 04/19/22 10:00 10:10 10:20 Temperature Pulse Rate 87 87 86 Pulse Rate [ From Monitor] Respiratory 28 H 24 24 Rate Blood Pressure 124/73 124/70 125/71 O2 Sat by Pulse 100 100 100 Oximetry 04/19/22 04/19/22 04/19/22 10:30 10:40 10:50 Temperature Pulse Rate 87 92 H 87 Pulse Rate [ From Monitor] Respiratory 24 26 H 24 Rate Blood Pressure 127/72 104/58 120/72 O2 Sat by Pulse 100 100 100 Oximetry 04/19/22 04/19/22 04/19/22 11:00 11:10 11:20 Temperature Pulse Rate 84 91 H 84 Pulse Rate [ From Monitor] Respiratory 25 H 25 H 24 Rate Blood Pressure 129/74 129/73 130/74 O2 Sat by Pulse 100 100 100 Oximetry 04/19/22 04/19/22 04/19/22 11:30 11:40 12:00 Temperature 97.2 F L 97.2 F L Pulse Rate 86 119 H Pulse Rate [ From Monitor] Respiratory 25 H Rate Blood Pressure 133/73 121/64 O2 Sat by Pulse 100 100 Oximetry 04/19/22 04/19/22 04/19/22 12:53 13:00 13:10 Temperature Pulse Rate 89 84 Pulse Rate [ 84 From Monitor] Respiratory 23 Rate Blood Pressure 129/72 125/75 126/75 O2 Sat by Pulse 100 100 Oximetry 04/19/22 04/19/22 04/19/22 13:20 13:30 13:40 Temperature Pulse Rate 87 85 84 Pulse Rate [ From Monitor] Respiratory 24 23 23 Rate Blood Pressure 126/75 121/73 125/75 O2 Sat by Pulse 100 100 100 Oximetry 04/19/22 04/19/22 04/19/22 13:50 14:00 14:10 Temperature Pulse Rate 131 H 136 H 130 H Pulse Rate [ From Monitor] Respiratory 24 25 H 24 Rate Blood Pressure 125/75 115/66 107/77 O2 Sat by Pulse 100 100 100 Oximetry 04/19/22 04/19/22 04/19/22 14:20 14:30 14:40 Temperature Pulse Rate 83 83 84 Pulse Rate [ From Monitor] Respiratory 22 24 23 Rate Blood Pressure 121/76 119/73 120/72 O2 Sat by Pulse 100 Oximetry 04/19/22 04/19/22 04/19/22 14:50 15:00 15:10 Temperature Pulse Rate 110 H 119 H 127 H Pulse Rate [ From Monitor] Respiratory 24 24 21 Rate Blood Pressure 121/64 121/64 120/78 O2 Sat by Pulse 100 100 100 Oximetry 04/19/22 04/19/22 04/19/22 15:20 15:30 15:40 Temperature Pulse Rate 129 H 112 H 125 H Pulse Rate [ From Monitor] Respiratory 25 H 25 H 23 Rate Blood Pressure 120/78 104/70 96/72 O2 Sat by Pulse 100 100 100 Oximetry 04/19/22 04/19/22 04/19/22 15:50 16:00 16:05 Temperature 98 F Pulse Rate 122 H 82 81 Pulse Rate [ 81 From Monitor] Respiratory 22 Rate Blood Pressure 97/73 105/63 O2 Sat by Pulse 100 100 100 Oximetry 04/19/22 04/19/22 04/19/22 16:10 16:16 16:20 Temperature Pulse Rate 119 H 125 H 126 H Pulse Rate [ From Monitor] Respiratory 23 23 Rate Blood Pressure 103/64 103/64 97/73 O2 Sat by Pulse 100 100 100 Oximetry 04/19/22 04/19/22 04/19/22 16:30 16:40 16:50 Temperature Pulse Rate 82 82 97 H Pulse Rate [ From Monitor] Respiratory 22 22 21 Rate Blood Pressure 116/70 111/69 114/68 O2 Sat by Pulse 100 100 Oximetry 04/19/22 04/19/22 04/19/22 17:00 17:10 17:20 Temperature Pulse Rate 129 H 115 H 121 H Pulse Rate [ From Monitor] Respiratory 23 22 20 Rate Blood Pressure 114/68 114/58 114/68 O2 Sat by Pulse 100 100 Oximetry 04/19/22 04/19/22 04/19/22 17:30 17:40 17:50 Temperature Pulse Rate 109 H 104 H 123 H Pulse Rate [ From Monitor] Respiratory 22 22 22 Rate Blood Pressure 92/69 92/69 113/72 O2 Sat by Pulse 100 100 100 Oximetry 04/19/22 04/19/22 04/19/22 18:00 18:10 18:20 Temperature Pulse Rate 112 H 84 80 Pulse Rate [ From Monitor] Respiratory 26 H 21 21 Rate Blood Pressure 99/72 99/72 123/75 O2 Sat by Pulse 100 100 100 Oximetry CBC and BMP: 04/18/22 23:20 04/19/22 09:50 ABG, PT/INR, D-dimer: ABG ABG pH 7.352 pH Units (7.350-7.450) 04/19/22 04:45 ABG pCO2 35.2 mm Hg 04/19/22 04:45 ABG pO2 424.1 mm Hg (80.0-90.0) H 04/19/22 04:45 ABG O2 Saturation 99.6 % (95.0-99.0) H 04/19/22 04:45 Abnormal lab findings: Abnormal Labs 03/31/22 03/31/22 04/01/22 08:00 08:00 08:00 WBC 15.6 H RBC 3.46 L Hgb 8.8 L Hct 28.6 L MCV 83 L MCH 26 L MCHC 31 L RDW 18.7 H Plt Count Lymph % (Auto) 4.2 L [place] % (Auto) Eos % (Auto) Lymph # (Auto) 0.7 L [place] # (Auto) 1.0 H Eos # (Auto) 0.5 H Seg Neutrophils % 85.9 H Seg Neuts % (Manual) Lymphocytes % (Manual) Eosinophils % (Manual) Seg Neutrophils # 13.4 H Seg Neutrophils # Man Lymphocytes # (Manual) ABG pH ABG pO2 ABG HCO3 ABG O2 Saturation ABG Base Excess ABG Hemoglobin Oxyhemoglobin Sodium 146 H Potassium Chloride 111.3 H 114.8 H Carbon Dioxide 11 L 17 L BUN 22 H Creatinine 2.3 H 2.0 H Glucose 55 L POC Glucose Lactic Acid Calcium 8.3 L Phosphorus Troponin T 0.138 H* NT-Pro-B Natriuret Pep 61837 H Total Protein Albumin 2.8 L HDL Cholesterol 38 L Urine Creatinine Crossmatch 04/01/22 04/02/22 04/02/22 08:54 04:40 04:40 WBC 12.6 H RBC 2.81 L 2.59 L Hgb 7.4 L 6.8 L Hct 22.6 L D 20.6 L MCV 81 L 80 L MCH 26 L 26 L MCHC RDW 19.1 H 19.0 H Plt Count Lymph % (Auto) [place] % (Auto) Eos % (Auto) Lymph # (Auto) [place] # (Auto) Eos # (Auto) Seg Neutrophils % Seg Neuts % (Manual) Lymphocytes % (Manual) Eosinophils % (Manual) Seg Neutrophils # Seg Neutrophils # Man Lymphocytes # (Manual) ABG pH ABG pO2 ABG HCO3 ABG O2 Saturation ABG Base Excess ABG Hemoglobin Oxyhemoglobin Sodium Potassium Chloride 113.9 H Carbon Dioxide 17 L BUN 21 H Creatinine 2.2 H Glucose POC Glucose Lactic Acid Calcium 8.3 L Phosphorus Troponin T NT-Pro-B Natriuret Pep Total Protein Albumin HDL Cholesterol Urine Creatinine Crossmatch 04/02/22 04/03/22 04/03/22 11:45 05:05 05:05 WBC RBC Hgb 7.2 L Hct 22.3 L MCV MCH MCHC RDW Plt Count Lymph % (Auto) [place] % (Auto) Eos % (Auto) Lymph # (Auto) [place] # (Auto) Eos # (Auto) Seg Neutrophils % Seg Neuts % (Manual) Lymphocytes % (Manual) Eosinophils % (Manual) Seg Neutrophils # Seg Neutrophils # Man Lymphocytes # (Manual) ABG pH ABG pO2 ABG HCO3 ABG O2 Saturation ABG Base Excess ABG Hemoglobin Oxyhemoglobin Sodium Potassium Chloride Carbon Dioxide BUN Creatinine 2.0 H Glucose POC Glucose Lactic Acid Calcium Phosphorus Troponin T NT-Pro-B Natriuret Pep Total Protein Albumin HDL Cholesterol Urine Creatinine Crossmatch See Detail 04/03/22 04/04/22 04/04/22 12:29 11:38 11:38 WBC RBC Hgb 7.4 L Hct 23.3 L MCV MCH MCHC RDW Plt Count Lymph % (Auto) [place] % (Auto) Eos % (Auto) Lymph # (Auto) [place] # (Auto) Eos # (Auto) Seg Neutrophils % Seg Neuts % (Manual) Lymphocytes % (Manual) Eosinophils % (Manual) Seg Neutrophils # Seg Neutrophils # Man Lymphocytes # (Manual) ABG pH ABG pO2 ABG HCO3 ABG O2 Saturation ABG Base Excess ABG Hemoglobin Oxyhemoglobin Sodium Potassium Chloride 115.6 H Carbon Dioxide 17 L BUN 24 H Creatinine 2.3 H Glucose 67 L POC Glucose Lactic Acid Calcium Phosphorus Troponin T 0.135 H* NT-Pro-B Natriuret Pep Total Protein Albumin HDL Cholesterol Urine Creatinine Crossmatch 04/05/22 04/05/22 04/05/22 05:06 05:06 18:16 WBC RBC 2.72 L Hgb 7.3 L Hct 22.4 L MCV 82 L MCH 27 L MCHC RDW 20.5 H Plt Count Lymph % (Auto) 13.2 L [place] % (Auto) 10.1 H Eos % (Auto) 6.6 H Lymph # (Auto) 1.1 L [place] # (Auto) Eos # (Auto) 0.5 H Seg Neutrophils % Seg Neuts % (Manual) 93.0 H Lymphocytes % (Manual) 2.0 L Eosinophils % (Manual) Seg Neutrophils # Seg Neutrophils # Man Lymphocytes # (Manual) 0.2 L ABG pH ABG pO2 ABG HCO3 ABG O2 Saturation ABG Base Excess ABG Hemoglobin Oxyhemoglobin Sodium Potassium Chloride 118.6 H Carbon Dioxide 17 L BUN 26 H Creatinine 2.3 H Glucose POC Glucose Lactic Acid Calcium Phosphorus Troponin T NT-Pro-B Natriuret Pep Total Protein 5.8 L Albumin 2.0 L HDL Cholesterol Urine Creatinine 82.0 H Crossmatch 04/05/22 04/06/22 04/07/22 22:03 05:46 08:20 WBC RBC Hgb Hct MCV MCH MCHC RDW Plt Count Lymph % (Auto) [place] % (Auto) Eos % (Auto) Lymph # (Auto) [place] # (Auto) Eos # (Auto) Seg Neutrophils % Seg Neuts % (Manual) Lymphocytes % (Manual) Eosinophils % (Manual) Seg Neutrophils # Seg Neutrophils # Man Lymphocytes # (Manual) ABG pH ABG pO2 ABG HCO3 ABG O2 Saturation ABG Base Excess ABG Hemoglobin Oxyhemoglobin Sodium 149 H Potassium Chloride 117.4 H 118.1 H Carbon Dioxide 16 L 19 L BUN 28 H 30 H Creatinine 2.9 H 3.2 H Glucose 72 L POC Glucose 108 H Lactic Acid Calcium Phosphorus Troponin T NT-Pro-B Natriuret Pep Total Protein Albumin HDL Cholesterol Urine Creatinine Crossmatch 04/08/22 04/08/22 04/09/22 04:47 21:43 04:30 WBC RBC 2.82 L Hgb 7.4 L Hct 23.0 L MCV 82 L MCH 26 L MCHC RDW 20.8 H Plt Count Lymph % (Auto) [place] % (Auto) Eos % (Auto) 9.0 H Lymph # (Auto) [place] # (Auto) Eos # (Auto) 0.6 H Seg Neutrophils % Seg Neuts % (Manual) Lymphocytes % (Manual) Eosinophils % (Manual) Seg Neutrophils # Seg Neutrophils # Man Lymphocytes # (Manual) ABG pH ABG pO2 ABG HCO3 ABG O2 Saturation ABG Base Excess ABG Hemoglobin Oxyhemoglobin Sodium 148 H Potassium Chloride 118.5 H Carbon Dioxide 20 L BUN 32 H Creatinine 3.2 H Glucose POC Glucose 136 H Lactic Acid Calcium Phosphorus Troponin T NT-Pro-B Natriuret Pep Total Protein Albumin HDL Cholesterol Urine Creatinine Crossmatch 04/09/22 04/09/22 04/09/22 04:30 11:16 22:10 WBC RBC Hgb Hct MCV MCH MCHC RDW Plt Count Lymph % (Auto) [place] % (Auto) Eos % (Auto) Lymph # (Auto) [place] # (Auto) Eos # (Auto) Seg Neutrophils % Seg Neuts % (Manual) Lymphocytes % (Manual) Eosinophils % (Manual) Seg Neutrophils # Seg Neutrophils # Man Lymphocytes # (Manual) ABG pH ABG pO2 ABG HCO3 ABG O2 Saturation ABG Base Excess ABG Hemoglobin Oxyhemoglobin Sodium 149 H Potassium Chloride 119.2 H Carbon Dioxide 20 L BUN 35 H Creatinine 4.1 H Glucose POC Glucose 120 H 111 H Lactic Acid Calcium Phosphorus Troponin T NT-Pro-B Natriuret Pep Total Protein Albumin HDL Cholesterol Urine Creatinine Crossmatch 04/10/22 04/10/22 04/11/22 04:19 12:06 13:55 WBC RBC 3.05 L Hgb 7.8 L Hct 24.7 L MCV 81 L MCH 26 L MCHC RDW 20.9 H Plt Count Lymph % (Auto) 12.1 L [place] % (Auto) Eos % (Auto) 6.1 H Lymph # (Auto) 0.7 L [place] # (Auto) Eos # (Auto) Seg Neutrophils % 79.1 H Seg Neuts % (Manual) Lymphocytes % (Manual) Eosinophils % (Manual) Seg Neutrophils # Seg Neutrophils # Man Lymphocytes # (Manual) ABG pH ABG pO2 ABG HCO3 ABG O2 Saturation ABG Base Excess ABG Hemoglobin Oxyhemoglobin Sodium Potassium Chloride 115.5 H Carbon Dioxide 20 L BUN 38 H Creatinine 4.0 H Glucose 101 H POC Glucose 113 H Lactic Acid Calcium Phosphorus Troponin T NT-Pro-B Natriuret Pep Total Protein Albumin HDL Cholesterol Urine Creatinine Crossmatch 04/11/22 04/12/22 04/12/22 13:55 04:40 04:40 WBC RBC 2.75 L Hgb 6.9 L Hct 22.1 L MCV 80 L MCH 25 L MCHC 31 L RDW 20.5 H Plt Count Lymph % (Auto) 11.3 L [place] % (Auto) Eos % (Auto) 4.8 H Lymph # (Auto) 0.9 L [place] # (Auto) Eos # (Auto) Seg Neutrophils % 81.3 H Seg Neuts % (Manual) Lymphocytes % (Manual) Eosinophils % (Manual) Seg Neutrophils # Seg Neutrophils # Man Lymphocytes # (Manual) ABG pH ABG pO2 ABG HCO3 ABG O2 Saturation ABG Base Excess ABG Hemoglobin Oxyhemoglobin Sodium Potassium 5.8 H 5.4 H Chloride 110.9 H 111.6 H Carbon Dioxide BUN 48 H 51 H Creatinine 5.3 H 5.8 H Glucose 110 H POC Glucose Lactic Acid Calcium Phosphorus Troponin T NT-Pro-B Natriuret Pep Total Protein Albumin HDL Cholesterol Urine Creatinine Crossmatch 04/12/22 04/12/22 04/13/22 15:12 23:27 06:02 WBC RBC Hgb Hct MCV MCH MCHC RDW Plt Count Lymph % (Auto) [place] % (Auto) Eos % (Auto) Lymph # (Auto) [place] # (Auto) Eos # (Auto) Seg Neutrophils % Seg Neuts % (Manual) Lymphocytes % (Manual) Eosinophils % (Manual) Seg Neutrophils # Seg Neutrophils # Man Lymphocytes # (Manual) ABG pH ABG pO2 ABG HCO3 ABG O2 Saturation ABG Base Excess ABG Hemoglobin Oxyhemoglobin Sodium Potassium Chloride 110.6 H Carbon Dioxide BUN 54 H Creatinine 5.9 H Glucose POC Glucose 109 H 111 H Lactic Acid Calcium Phosphorus Troponin T NT-Pro-B Natriuret Pep Total Protein Albumin HDL Cholesterol Urine Creatinine Crossmatch 04/13/22 04/13/22 04/13/22 14:19 14:19 23:50 WBC 4.4 L RBC 2.75 L Hgb 7.0 L Hct 22.4 L MCV 81 L MCH 25 L MCHC 31 L RDW 20.9 H Plt Count Lymph % (Auto) [place] % (Auto) Eos % (Auto) 10.7 H Lymph # (Auto) 1.0 L [place] # (Auto) Eos # (Auto) 0.5 H Seg Neutrophils % Seg Neuts % (Manual) Lymphocytes % (Manual) Eosinophils % (Manual) Seg Neutrophils # Seg Neutrophils # Man Lymphocytes # (Manual) ABG pH ABG pO2 ABG HCO3 ABG O2 Saturation ABG Base Excess ABG Hemoglobin Oxyhemoglobin Sodium 146 H Potassium Chloride 111.2 H Carbon Dioxide BUN 62 H Creatinine 6.6 H Glucose POC Glucose 118 H Lactic Acid Calcium Phosphorus Troponin T NT-Pro-B Natriuret Pep Total Protein Albumin HDL Cholesterol Urine Creatinine Crossmatch 04/14/22 04/14/22 04/14/22 04:50 04:50 08:44 WBC 3.5 L RBC 2.70 L Hgb 6.6 L Hct 21.6 L MCV 80 L MCH 25 L MCHC 31 L RDW 21.2 H Plt Count Lymph % (Auto) [place] % (Auto) Eos % (Auto) Lymph # (Auto) [place] # (Auto) Eos # (Auto) Seg Neutrophils % Seg Neuts % (Manual) 73.0 H Lymphocytes % (Manual) Eosinophils % (Manual) 5.0 H Seg Neutrophils # Seg Neutrophils # Man Lymphocytes # (Manual) 0.7 L ABG pH ABG pO2 ABG HCO3 ABG O2 Saturation ABG Base Excess ABG Hemoglobin Oxyhemoglobin Sodium Potassium Chloride Carbon Dioxide BUN 34 H Creatinine 4.3 H Glucose 107 H POC Glucose Lactic Acid Calcium 7.8 L Phosphorus Troponin T NT-Pro-B Natriuret Pep Total Protein Albumin HDL Cholesterol Urine Creatinine Crossmatch See Detail 04/15/22 04/15/22 04/15/22 09:41 09:41 22:22 WBC RBC 3.03 L Hgb 8.0 L Hct 24.8 L MCV 82 L MCH 26 L MCHC RDW 19.8 H Plt Count Lymph % (Auto) 11.8 L [place] % (Auto) Eos % (Auto) 5.4 H Lymph # (Auto) 0.9 L [place] # (Auto) Eos # (Auto) Seg Neutrophils % 80.1 H Seg Neuts % (Manual) Lymphocytes % (Manual) Eosinophils % (Manual) Seg Neutrophils # Seg Neutrophils # Man Lymphocytes # (Manual) ABG pH ABG pO2 ABG HCO3 ABG O2 Saturation ABG Base Excess ABG Hemoglobin Oxyhemoglobin Sodium 136 L Potassium 3.5 L Chloride Carbon Dioxide BUN 45 H Creatinine 6.1 H Glucose 106 H POC Glucose 123 H Lactic Acid Calcium Phosphorus Troponin T NT-Pro-B Natriuret Pep Total Protein Albumin HDL Cholesterol Urine Creatinine Crossmatch 04/16/22 04/16/22 04/16/22 04:55 04:55 16:44 WBC RBC 3.02 L Hgb 7.9 L Hct 24.2 L MCV 80 L MCH 26 L MCHC RDW 19.9 H Plt Count 128 L Lymph % (Auto) 11.1 L [place] % (Auto) Eos % (Auto) Lymph # (Auto) 0.8 L [place] # (Auto) Eos # (Auto) Seg Neutrophils % 84.8 H Seg Neuts % (Manual) Lymphocytes % (Manual) Eosinophils % (Manual) Seg Neutrophils # Seg Neutrophils # Man Lymphocytes # (Manual) ABG pH ABG pO2 ABG HCO3 ABG O2 Saturation ABG Base Excess ABG Hemoglobin Oxyhemoglobin Sodium Potassium Chloride Carbon Dioxide BUN 27 H Creatinine 4.3 H Glucose 126 H POC Glucose 120 H Lactic Acid Calcium Phosphorus Troponin T NT-Pro-B Natriuret Pep Total Protein Albumin HDL Cholesterol Urine Creatinine Crossmatch 04/16/22 04/17/22 04/17/22 23:37 06:03 06:03 WBC 11.2 H RBC 3.37 L Hgb 8.6 L Hct 27.5 L MCV 82 L MCH 26 L MCHC 31 L RDW 20.4 H Plt Count 121 L Lymph % (Auto) [place] % (Auto) Eos % (Auto) Lymph # (Auto) [place] # (Auto) Eos # (Auto) Seg Neutrophils % Seg Neuts % (Manual) 96.0 H Lymphocytes % (Manual) 3.0 L Eosinophils % (Manual) Seg Neutrophils # Seg Neutrophils # Man 10.8 H Lymphocytes # (Manual) 0.3 L ABG pH ABG pO2 ABG HCO3 ABG O2 Saturation ABG Base Excess ABG Hemoglobin Oxyhemoglobin Sodium 135 L Potassium Chloride 94.7 L Carbon Dioxide BUN 50 H Creatinine 5.6 H Glucose POC Glucose 125 H Lactic Acid Calcium Phosphorus Troponin T NT-Pro-B Natriuret Pep Total Protein Albumin HDL Cholesterol Urine Creatinine Crossmatch 04/18/22 04/18/22 04/18/22 03:51 04:24 04:24 WBC RBC 2.96 L Hgb 7.8 L Hct 23.3 L MCV 79 L MCH 26 L MCHC RDW 20.6 H Plt Count 97 L Lymph % (Auto) 10.2 L [place] % (Auto) Eos % (Auto) Lymph # (Auto) 0.5 L [place] # (Auto) Eos # (Auto) Seg Neutrophils % 86.5 H Seg Neuts % (Manual) Lymphocytes % (Manual) Eosinophils % (Manual) Seg Neutrophils # Seg Neutrophils # Man Lymphocytes # (Manual) ABG pH 7.516 H ABG pO2 44.2 L ABG HCO3 ABG O2 Saturation 81.8 L ABG Base Excess ABG Hemoglobin 8.6 L Oxyhemoglobin 80.1 L Sodium Potassium 5.1 H Chloride 96.5 L Carbon Dioxide BUN 70 H Creatinine 6.9 H Glucose POC Glucose Lactic Acid Calcium Phosphorus Troponin T NT-Pro-B Natriuret Pep Total Protein Albumin HDL Cholesterol Urine Creatinine Crossmatch 04/18/22 04/18/22 04/18/22 15:30 15:39 16:51 WBC 0.8 L* RBC 2.42 L Hgb 6.2 L Hct 19.8 L* MCV 82 L MCH 26 L MCHC 31 L RDW 20.8 H Plt Count 82 L Lymph % (Auto) [place] % (Auto) Eos % (Auto) Lymph # (Auto) [place] # (Auto) Eos # (Auto) Seg Neutrophils % Seg Neuts % (Manual) Lymphocytes % (Manual) Eosinophils % (Manual) Seg Neutrophils # Seg Neutrophils # Man Lymphocytes # (Manual) ABG pH ABG pO2 ABG HCO3 ABG O2 Saturation ABG Base Excess ABG Hemoglobin 7.0 L Oxyhemoglobin Sodium Potassium Chloride Carbon Dioxide BUN Creatinine Glucose POC Glucose Lactic Acid Calcium Phosphorus Troponin T NT-Pro-B Natriuret Pep Total Protein Albumin HDL Cholesterol Urine Creatinine Crossmatch See Detail 04/18/22 04/18/22 04/18/22 19:09 23:20 23:34 WBC 1.8 L* RBC 3.19 L Hgb 8.5 L Hct 26.7 L D MCV MCH 27 L MCHC RDW 20.4 H Plt Count 66 L Lymph % (Auto) [place] % (Auto) Eos % (Auto) Lymph # (Auto) [place] # (Auto) Eos # (Auto) Seg Neutrophils % Seg Neuts % (Manual) 32.0 L Lymphocytes % (Manual) 64.0 H Eosinophils % (Manual) Seg Neutrophils # Seg Neutrophils # Man 0.6 L Lymphocytes # (Manual) ABG pH ABG pO2 ABG HCO3 ABG O2 Saturation ABG Base Excess ABG Hemoglobin Oxyhemoglobin Sodium Potassium Chloride Carbon Dioxide BUN Creatinine Glucose POC Glucose 65 L 107 H Lactic Acid Calcium Phosphorus Troponin T NT-Pro-B Natriuret Pep Total Protein Albumin HDL Cholesterol Urine Creatinine Crossmatch 04/18/22 04/18/22 04/19/22 Unknown Unknown 04:24 WBC RBC Hgb Hct MCV MCH MCHC RDW Plt Count Lymph % (Auto) [place] % (Auto) Eos % (Auto) Lymph # (Auto) [place] # (Auto) Eos # (Auto) Seg Neutrophils % Seg Neuts % (Manual) Lymphocytes % (Manual) Eosinophils % (Manual) Seg Neutrophils # Seg Neutrophils # Man Lymphocytes # (Manual) ABG pH ABG pO2 ABG HCO3 ABG O2 Saturation ABG Base Excess ABG Hemoglobin Oxyhemoglobin Sodium Potassium 6.0 H D Chloride 60.0 L Carbon Dioxide 18 L BUN 66 H 87 H Creatinine 6.1 H 7.2 H Glucose 73 L 132 H POC Glucose Lactic Acid 2.40 H* Calcium 6.6 L D 7.1 L Phosphorus 6.10 H Troponin T 0.322 H* NT-Pro-B Natriuret Pep Total Protein Albumin HDL Cholesterol Urine Creatinine Crossmatch 04/19/22 04/19/22 04/19/22 04:45 05:27 06:46 WBC RBC Hgb Hct MCV MCH MCHC RDW Plt Count Lymph % (Auto) [place] % (Auto) Eos % (Auto) Lymph # (Auto) [place] # (Auto) Eos # (Auto) Seg Neutrophils % Seg Neuts % (Manual) Lymphocytes % (Manual) Eosinophils % (Manual) Seg Neutrophils # Seg Neutrophils # Man Lymphocytes # (Manual) ABG pH ABG pO2 424.1 H ABG HCO3 19.1 L ABG O2 Saturation 99.6 H ABG Base Excess -5.9 L ABG Hemoglobin 8.3 L Oxyhemoglobin Sodium Potassium Chloride Carbon Dioxide BUN Creatinine Glucose POC Glucose 107 H 111 H Lactic Acid Calcium Phosphorus Troponin T NT-Pro-B Natriuret Pep Total Protein Albumin HDL Cholesterol Urine Creatinine Crossmatch 04/19/22 04/19/22 09:50 11:14 WBC RBC Hgb Hct MCV MCH MCHC RDW Plt Count Lymph % (Auto) [place] % (Auto) Eos % (Auto) Lymph # (Auto) [place] # (Auto) Eos # (Auto) Seg Neutrophils % Seg Neuts % (Manual) Lymphocytes % (Manual) Eosinophils % (Manual) Seg Neutrophils # Seg Neutrophils # Man Lymphocytes # (Manual) ABG pH ABG pO2 ABG HCO3 ABG O2 Saturation ABG Base Excess ABG Hemoglobin Oxyhemoglobin Sodium 132 L D Potassium Chloride 94.3 L Carbon Dioxide BUN 71 H Creatinine 6.3 H Glucose 205 H POC Glucose 164 H Lactic Acid Calcium 8.2 L D Phosphorus Troponin T NT-Pro-B Natriuret Pep Total Protein Albumin HDL Cholesterol Urine Creatinine Crossmatch
[2022-04-19] MEDS: QUEtiapine 25 MG TAB PO SCH (21:28)
[2022-04-19] MEDS: ACETAMINOPHEN 325 MG TAB PO PRN (21:47)
[2022-04-20] MEDS: IPRATROPIUM/ALBUTEROL SULFATE 3 ML AMPUL.NEB IH SCH ×5 (04:26→19:57)
[2022-04-20 04:58] LABS: ABG Base Excess -2.8 mmol/L (-2.0-3.0); ABG HCO3 23.2 mmol/L (20.0-26.0); ABG Methemoglobin 0.7 % (0.0-1.5); ABG PCO2 46.8 mm Hg; ABG PH 7.313 pH Units (7.350-7.450); ABG PO2 171.4 mm Hg (80.0-90.0)
[2022-04-20] MEDS: PIPERACIL-TAZO 2.25 GM/50 ML 2.25 GM/50 ML BAG IV SCH ×3 (05:03→22:28)
[2022-04-20 05:15] LABS: Calcium 6.9 mg/dL (8.4-10.2)
[2022-04-20] MEDS: fentaNYL DRIP Premix 1,000 MCG/100 ML BAG IV SCH (05:45)
--- NOTE | 2022-04-20 06:10 | XRay Report ---
CHEST 1 VIEW INDICATION / CLINICAL INFORMATION: follow up respiratory failure. COMPARISON: Chest x-ray 04/19/2022 FINDINGS: SUPPORT DEVICES: Stable, satisfactory device positioning. HEART / MEDIASTINUM: Stable interval appearance of the cardiomediastinal silhouette. LUNGS / PLEURA: Bilateral lung opacities demonstrate no significant interval change. BONES: No significant osseous abnormality. ADDITIONAL FINDINGS: No significant additional findings. IMPRESSION: 1. No significant change. Signer Name: Jeffrey Rodrigez II, MD Signed: 04/20/2022 6:06 AM Workstation Name: [id number]
[2022-04-20] MEDS ORDERED: DEXTROSE 50% IN WATER (25GM) 50 ML SYRINGE IV SCH (09:30)
[2022-04-20] MEDS: LANSOPRAZOLE 30 MG SOLUTAB FEEDTUBE SCH ×2 (10:15→22:06)
[2022-04-20] MEDS: ASPIRIN 81 MG TAB CHEW PO SCH (10:15)
[2022-04-20] MEDS: MIDODRINE 10 MG TAB PO SCH ×2 (10:15→15:09)
[2022-04-20] MEDS: AMIODARONE 200 MG TAB PO SCH ×2 (10:15→22:06)
[2022-04-20] MEDS: FOLIC ACID 1 MG TAB PO SCH (10:15)
[2022-04-20] MEDS: TAMSULOSIN 0.4 MG CAP PO SCH ×2 (10:15→10:24)
[2022-04-20] MEDS: VASOPRESSIN 20 UNIT in SODIUM CHLORIDE 0.9% 100 ML IV SCH (10:33)
[2022-04-20 11:06] LABS: Hematocrit 20.3 % (35.5-45.6); Hemoglobin 6.7 gm/dl (11.8-15.2); Mean Corpuscular HGB Conc 33 % (32-34); Mean Corpuscular Volume 83 fl (84-94); Red Blood Count 2.44 M/mm3 (3.65-5.03)
[2022-04-20 11:07] LABS: Platelet Count 28 K/mm3 (140-440); Red Cell Distribution Width 20.7 % (13.2-15.2)
--- NOTE | 2022-04-20 11:07 | Progress Note ---
Assessment and Plan 1. Acute kidney injury: Vasomotor MARIE superimposed on CKD in the setting of sepsis/CHF/A.Fib with RVR. Renal US negative. Monitor renal function. Patient is oliguric. Renal prognosis is guarded. Avoid nephrotoxic agents. Meds dosage based on GFR. Monitor for SANDER AND BUFFER needs. Patient started on hemodialysis due to worsening renal function, volume overload and associated hyperkalemia. Hemodialysis: 04/13, 04/14(UF only), 04/15. Unable to do HD today due to unstable hemodynamics. Risks of HD outweighs any benefits at this time. Hemodialysis unlikely to change the overall picture. 2. FEN: Hyperkalemia, meds ordered, monitor. Hypernatremia, improved, monitor. Hyperchloremic metabolic acidosis, monitor. Replete lytes as needed. Monitor lytes and volume status. 3. A.fib with RVR: Followed by Cards. Monitor. 4. Acute on chronic systolic congestive heart failure / Non-STEMI: LVEF 25 to 30%. Monitor. Followed by Cards. 5. Shock: Currently on 2 pressors and Midodrine. 6. Resp failure: Currently on vent. 7. HCAP / UTI / Sepsis: Off abx. 8. Acute metabolic encephalopathy, POA: H/o Dementia. Monitor. 9. Microcytic Anemia, POA: Heme positive stool. Trend. Seen by GI. 10. Bladder retention: Follow bladder scan. Bladder scan 47 ml. D/w ICU attending. Baseline poor functional status. Overall prognosis is slim. Subjective: Patient was seen and examined at the bedside. Examination: General appearance: well-developed, appears stated age, no distress, intubated, on vent HEENT: atraumatic, no icterus Neck: trachea midline Respiratory: coarse breath sounds Heart: S1S2, no murmur Abdomen: soft, bowel sounds heard, NT Integumentary: no obvious rash Neurologic: unresponsive Ext: trace ext edema Hemodialysis access: R IJ non-tunnel catheter Subjective Date of service: 04/20/22 Principal diagnosis: anemia Objective - Vital Signs Vital signs: Vital Signs - 12hr 04/19/22 04/19/22 04/19/22 23:11 23:12 23:16 Temperature Pulse Rate 79 80 Pulse Rate [ Anterior Bilateral Throughout] Pulse Rate [ From Monitor] Respiratory 17 18 Rate Respiratory Rate [Anterior Bilateral Throughout] Blood Pressure 105/66 105/66 O2 Sat by Pulse 100 100 100 Oximetry 04/19/22 04/19/22 04/19/22 23:30 23:46 23:51 Temperature Pulse Rate 80 80 81 Pulse Rate [ 85 Anterior Bilateral Throughout] Pulse Rate [ From Monitor] Respiratory 18 18 Rate Respiratory 20 Rate [Anterior Bilateral Throughout] Blood Pressure 96/57 102/63 93/61 O2 Sat by Pulse 100 100 100 Oximetry 04/20/22 04/20/22 04/20/22 00:00 00:16 00:30 Temperature 98.6 F Pulse Rate 83 83 81 Pulse Rate [ Anterior Bilateral Throughout] Pulse Rate [ From Monitor] Respiratory 18 18 22 Rate Respiratory Rate [Anterior Bilateral Throughout] Blood Pressure 103/65 101/61 99/61 O2 Sat by Pulse 100 100 100 Oximetry 04/20/22 04/20/22 04/20/22 00:46 01:00 01:16 Temperature Pulse Rate 80 78 79 Pulse Rate [ Anterior Bilateral Throughout] Pulse Rate [ From Monitor] Respiratory 16 16 16 Rate Respiratory Rate [Anterior Bilateral Throughout] Blood Pressure 93/60 97/56 99/65 O2 Sat by Pulse 100 100 100 Oximetry 04/20/22 04/20/22 04/20/22 01:30 01:46 02:00 Temperature Pulse Rate 78 76 75 Pulse Rate [ Anterior Bilateral Throughout] Pulse Rate [ From Monitor] Respiratory 17 16 16 Rate Respiratory Rate [Anterior Bilateral Throughout] Blood Pressure 96/64 88/58 94/67 O2 Sat by Pulse 100 100 100 Oximetry 04/20/22 04/20/22 04/20/22 02:16 02:30 02:46 Temperature Pulse Rate 97 H 106 H 114 H Pulse Rate [ Anterior Bilateral Throughout] Pulse Rate [ From Monitor] Respiratory 25 H 22 18 Rate Respiratory Rate [Anterior Bilateral Throughout] Blood Pressure 99/54 107/67 93/63 O2 Sat by Pulse 100 100 100 Oximetry 04/20/22 04/20/22 04/20/22 03:00 03:16 03:30 Temperature Pulse Rate 101 H 73 78 Pulse Rate [ Anterior Bilateral Throughout] Pulse Rate [ From Monitor] Respiratory 16 15 18 Rate Respiratory Rate [Anterior Bilateral Throughout] Blood Pressure 98/67 104/68 106/67 O2 Sat by Pulse 100 100 100 Oximetry 04/20/22 04/20/22 04/20/22 03:35 03:46 04:00 Temperature 98.8 F Pulse Rate 81 134 H Pulse Rate [ Anterior Bilateral Throughout] Pulse Rate [ From Monitor] Respiratory 16 24 Rate Respiratory Rate [Anterior Bilateral Throughout] Blood Pressure 101/58 117/76 O2 Sat by Pulse 100 100 100 Oximetry 04/20/22 04/20/22 04/20/22 04:16 04:28 04:30 Temperature Pulse Rate 133 H 124 H 117 H Pulse Rate [ 127 H Anterior Bilateral Throughout] Pulse Rate [ From Monitor] Respiratory 24 19 Rate Respiratory 20 Rate [Anterior Bilateral Throughout] Blood Pressure 107/65 102/70 106/61 O2 Sat by Pulse 100 100 100 Oximetry 04/20/22 04/20/22 04/20/22 04:46 05:00 05:14 Temperature Pulse Rate 111 H 121 H Pulse Rate [ Anterior Bilateral Throughout] Pulse Rate [ From Monitor] Respiratory 19 28 H Rate Respiratory Rate [Anterior Bilateral Throughout] Blood Pressure 97/67 103/72 O2 Sat by Pulse 100 99 100 Oximetry 04/20/22 04/20/22 04/20/22 05:16 05:30 05:46 Temperature Pulse Rate 129 H 116 H 119 H Pulse Rate [ Anterior Bilateral Throughout] Pulse Rate [ From Monitor] Respiratory 18 17 16 Rate Respiratory Rate [Anterior Bilateral Throughout] Blood Pressure 100/69 90/56 90/56 O2 Sat by Pulse 100 100 100 Oximetry 04/20/22 04/20/22 04/20/22 06:00 06:07 06:16 Temperature Pulse Rate 112 H 111 H 122 H Pulse Rate [ Anterior Bilateral Throughout] Pulse Rate [ From Monitor] Respiratory 18 17 Rate Respiratory Rate [Anterior Bilateral Throughout] Blood Pressure 87/58 102/47 O2 Sat by Pulse 100 100 Oximetry 04/20/22 04/20/22 04/20/22 06:30 06:46 07:00 Temperature Pulse Rate 106 H 108 H 87 Pulse Rate [ Anterior Bilateral Throughout] Pulse Rate [ From Monitor] Respiratory 16 18 16 Rate Respiratory Rate [Anterior Bilateral Throughout] Blood Pressure 93/59 97/68 102/73 O2 Sat by Pulse 100 100 99 Oximetry 04/20/22 04/20/22 04/20/22 07:16 07:30 07:46 Temperature Pulse Rate 81 76 79 Pulse Rate [ Anterior Bilateral Throughout] Pulse Rate [ From Monitor] Respiratory 16 16 16 Rate Respiratory Rate [Anterior Bilateral Throughout] Blood Pressure 92/65 99/56 107/62 O2 Sat by Pulse 100 99 100 Oximetry 04/20/22 04/20/22 04/20/22 08:00 08:10 08:11 Temperature Pulse Rate 80 77 Pulse Rate [ Anterior Bilateral Throughout] Pulse Rate [ 80 From Monitor] Respiratory 16 16 Rate Respiratory Rate [Anterior Bilateral Throughout] Blood Pressure 99/56 95/59 O2 Sat by Pulse 100 100 100 Oximetry 04/20/22 04/20/22 04/20/22 08:16 08:21 08:30 Temperature 97.6 F Pulse Rate 86 79 Pulse Rate [ 79 Anterior Bilateral Throughout] Pulse Rate [ From Monitor] Respiratory 16 16 Rate Respiratory 16 Rate [Anterior Bilateral Throughout] Blood Pressure 95/59 111/60 O2 Sat by Pulse 100 100 Oximetry 04/20/22 04/20/22 04/20/22 08:46 09:00 09:15 Temperature Pulse Rate 81 79 75 Pulse Rate [ Anterior Bilateral Throughout] Pulse Rate [ From Monitor] Respiratory 14 14 14 Rate Respiratory Rate [Anterior Bilateral Throughout] Blood Pressure 108/67 100/70 107/57 O2 Sat by Pulse 100 100 100 Oximetry 04/20/22 04/20/22 04/20/22 09:30 09:45 10:00 Temperature Pulse Rate 76 116 H 102 H Pulse Rate [ Anterior Bilateral Throughout] Pulse Rate [ From Monitor] Respiratory 15 13 15 Rate Respiratory Rate [Anterior Bilateral Throughout] Blood Pressure 102/61 96/60 91/60 O2 Sat by Pulse 100 100 99 Oximetry 04/20/22 04/20/22 04/20/22 10:15 10:30 10:45 Temperature Pulse Rate 101 H 104 H 98 H Pulse Rate [ Anterior Bilateral Throughout] Pulse Rate [ From Monitor] Respiratory 16 13 15 Rate Respiratory Rate [Anterior Bilateral Throughout] Blood Pressure 89/65 97/65 101/68 O2 Sat by Pulse 100 100 100 Oximetry - Lab 04/20/22 10:40 04/20/22 04:00 Most recent lab results ABG pH 7.313 pH Units (7.350-7.450) L 04/20/22 04:30 ABG pCO2 46.8 mm Hg 04/20/22 04:30 ABG pO2 171.4 mm Hg (80.0-90.0) H 04/20/22 04:30 ABG HCO3 23.2 mmol/L (20.0-26.0) 04/20/22 04:30 ABG O2 Saturation 99.0 % (95.0-99.0) 04/20/22 04:30 Calcium 6.9 mg/dL (8.4-10.2) L D 04/20/22 04:00 Phosphorus 6.90 mg/dL (2.5-4.5) H 04/20/22 04:00 Magnesium 2.20 mg/dL (1.7-2.3) 04/20/22 04:00 Urine Creatinine 82.0 mg/dL (0.1-20.0) H 04/05/22 18:16 Urine Sodium 107 mmol/L 04/05/22 18:16 Medications & Allergies - Medications Allergies/Adverse Reactions: Allergies lisinopril Allergy (Verified 03/31/22 07:48) Hives Home Medications: Home Medications Medication Instructions Recorded Confirmed Last Taken Type Tamsulosin [Flomax] 0.4 mg PO QDAY #7 cap 08/28/15 04/08/22 Unknown Rx AtorvaSTATin [Lipitor] 40 mg PO QHS 03/11/22 04/08/22 Unknown History metHOTREXate sodium [Methotrexate] 15 mg PO 1XW 03/11/22 04/08/22 Unknown History predniSONE 10 mg PO BID 03/16/22 04/08/22 Unknown History Amiodarone [Cordarone 200 MG TAB] 200 mg PO BID tablet 03/23/22 04/08/22 Unknown Rx Apixaban [Eliquis] 5 mg PO Q12HR tablet 03/23/22 04/08/22 Unknown Rx Aspirin [Aspirin BABY CHEW TAB] 81 mg PO QDAY tab.chew 03/23/22 04/08/22 Unknown Rx Doxazosin [Cardura] 4 mg PO QDAY tablet 03/23/22 04/08/22 Unknown Rx Famotidine [Pepcid] 20 mg PO DAILY tablet 03/23/22 04/08/22 Unknown Rx Metoprolol [Lopressor TAB] 100 mg PO BID tablet 03/23/22 04/08/22 Unknown Rx Nicotine [Habitrol] 21 mg TD QDAY patch 03/23/22 04/08/22 Unknown Rx QUEtiapine [SEROquel] 50 mg PO QHS tablet 03/23/22 04/08/22 Unknown Rx amLODIPine 10 mg PO DAILY #30 tab 03/24/22 04/08/22 Unknown Rx Active Medications: Generic Name Dose Route Start Last Admin Trade Name Laneq PRN Reason Stop Dose Admin Acetaminophen 650 mg 03/31/22 13:31 04/19/22 21:47 Acetaminophen 325 Mg Tab PO 650 mg Q4H PRN Administration Pain MILD(1-3)/Fever >100.5/HILTON Albuterol/Ipratropium 1 ampul 04/18/22 10:00 04/20/22 08:20 Ipratropium/Albuterol Sulfate 3 Ml Ampul.Neb IH 1 ampul Q4HRT FRANCESCA Administration Amiodarone HCl 200 mg 03/31/22 22:00 04/20/22 10:15 Amiodarone 200 Mg Tab PO 200 mg BID FRANCESCA Administration Aspirin 81 mg 04/01/22 10:00 04/20/22 10:15 Aspirin 81 Mg Tab Chew PO 81 mg QDAY FRANCESCA Administration Atorvastatin Calcium 40 mg 03/31/22 22:00 04/19/22 21:27 Atorvastatin 40 Mg Tab PO 40 mg QHS FRANCESCA Administration Dextrose 25 ml 04/15/22 00:04 Dextrose 50% In Water (25gm) 50 Ml Syringe IV Q30MIN PRN Hypoglycemia Protocol Dextrose 50 ml 04/20/22 09:30 04/20/22 10:15 Dextrose 50% In Water (25gm) 50 Ml Syringe IV 04/20/22 12:30 50 ml ONCE@0930 FRANCESCA Administration Protocol Epoetin Gordon-epbx 20,000 unit 04/14/22 15:00 Epoetin Gordon-Epbx 10,000 Unit/1 Ml Vial SUB-Q CORINNE PRN hemodialysis Fentanyl 50 mcg 04/18/22 19:20 04/18/22 19:46 Fentanyl 100 Mcg/2 Ml Inj IV 50 mcg Q4HR PRN Administration Pain , Severe (7-10) Folic Acid 1 mg 04/08/22 10:00 04/20/22 10:15 Folic Acid 1 Mg Tab PO 1 mg DAILY FRANCESCA Administration Heparin Sodium (Porcine) 3,000 unit 04/13/22 10:24 Heparin 10,000 Units/10 Ml Vial IV CORINNE PRN hemodialysis Hydrophilic Ointment 1 applic 04/18/22 15:23 Lip Therapy Vaseline TP Q2HR PRN Dry Lips Sodium Chloride 100 mls @ 999 mls/hr 04/13/22 10:24 04/18/22 15:08 Nacl 0.9% IV 999 mls/hr CORINNE PRN Administration Hypotension Piperacillin Sod/Tazobactam Sod 2.25 gm in 50 mls @ 100 mls/hr 04/18/22 06:00 04/20/22 05:03 Zosyn/Ns 2.25 Gm/50ml IV 100 mls/hr Q8H FRANCESCA Administration NORepinephrine/NS 8 MG-250 ML 8 mg in 250 mls @ 14.438 mls/hr 04/18/22 15:00 04/20/22 10:41 Norepinephrine/Ns 8 Mg-250 Ml (Double Conc) IV 0.05 mcg/kg/min TITRATE FRANCESCA 7.219 mls/hr Titration Protocol 0.1 MCG/KG/MIN Vasopressin 20 unit/ Sodium 101 mls @ 9.09 mls/hr 04/18/22 15:00 04/20/22 10:33 Chloride IV 0.03 units/min TITR FRANCESCA 9.09 mls/hr Administration Protocol 0.03 UNITS/MIN Phenylephrine HCl 50 mg/ 250 mls @ 11.55 mls/hr 04/18/22 15:45 04/19/22 02:36 Sodium Chloride IV 0 mcg/kg/min TITR FRANCESCA 0 mls/hr Titration Protocol 0.5 MCG/KG/MIN Fentanyl Citrate 1,000 mcg in 100 mls @ 2.5 mls/hr 04/18/22 23:45 04/20/22 10:42 Fentanyl Drip Premix IV 75 mcg/hr TITR FRANCESCA 7.5 mls/hr Titration Protocol 25 MCG/HR Lansoprazole 30 mg 04/19/22 10:00 04/20/22 10:15 Lansoprazole 30 Mg Solutab FEEDTUBE 30 mg BID FRANCESCA Administration Midodrine 10 mg 04/20/22 10:00 04/20/22 10:15 Midodrine 10 Mg Tab PO 10 mg TID@0800,1200,1600 FRANCESCA Administration Multi-Ingred Cream/Lotion/Oil/Oint 1 applic 04/18/22 15:23 Mineral Oil/Petrolatum, White Ophth Oint 3.5 Gm OU Q4HR PRN Dry Eye(s) Ondansetron HCl 4 mg 03/31/22 13:31 Ondansetron 4 Mg/2 Ml Inj IV Q8H PRN Nausea And Vomiting Quetiapine Fumarate 50 mg 03/31/22 22:00 04/19/22 21:28 Quetiapine 25 Mg Tab PO Not Given QHS FRANCESCA Scopolamine 1 each 04/18/22 11:00 04/18/22 11:13 Scopolamine Transdermal Patch 72 Hr TD 1 each Q72HR FRANCESCA Administration Senna/Docusate Sodium 1 tab 04/18/22 22:00 04/19/22 21:28 Sennosides/Docusate Sodium 8.6/50 Mg Tab FEEDTUBE 1 tab BID FRANCESCA Administration Sodium Chloride 10 ml 03/31/22 22:00 04/20/22 10:15 Sodium Chloride 0.9% 10 Ml Flush Syringe IV 10 ml BID FRANCESCA Administration
--- NOTE | 2022-04-20 11:08 | Progress Note ---
Assessment and Plan Cultures: COVID-19 PCR: Negative 03/31/2022 blood culture: No growth 04/01/2022 urine culture: VRE - Enterococcus faecium 04/08/2022 COVID-19 PCR: Negative 04/10/2022 blood culture: No growth so far 04/10/2022 urine culture: Kizzy albicans 04/18/2022 blood culture: no growth so far 04/18/2022 respiratory culture: In process A/P: 67-year-old male with CAD, CKD, atrial fibrillation, vascular dementia was admitted to the hospital on 03/31/2022 with fever and shortness of breath: #Septic shock: ?also component of cardiogenic shock. LVEF 15 to 20%. #Recurrent aspiration pneumonia and mucous plugging, chest x-ray and CT scan on review showed complete whiteout of left lung. s/p multiple rounds of abx. #Acute hypoxic respiratory failure: on the vent. #MARIE on CKD: Nephrology on board, initiated on HD. 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 Unclear indication. Patient does not know the indication. ?Rheumatoid arthritis #Leukopenia, thrombocytopenia: methotrexate on hold. #VRE UTI: Asymptomatic bacteriuria, UA without any significant pyuria reflect colonization. #Acute encephalopathy: with underlying dementia. Recs: -Continue renally adjusted IV Zosyn for now (s/p multiple rounds of abx) -Follow-up new cultures -Monitor pancytopenia, depending on goals of care, consider hematology evaluation -overall poor prognosis Juanis Greco MD, FACPANGELINA [facility] O: [phone] F: [phone] C: [phone] Subjective Date of service: 04/20/22 Principal diagnosis: anemia Interval history: Afebrile. Remains critically ill, on the vent, on 2 pressors. Friend is at bedside. Objective - Exam Narrative Exam: Physical Exam: Constitutional: opens eyes, intubated, on the vent Head, Ears, Nose: Normocephalic, atraumatic. External ears, nose normal Eyes: Conjunctivae/corneas clear. No icterus. No ptosis. Neck: intubated Oral: intubated Cardiovascular: S1, S2 + Respiratory: AE fair bilaterally GI: Soft, bowel sounds + Musculoskeletal: No pedal edema, no cyanosis. Skin: No rash or abscess Hem/Lymphatic: No palpable cervical or supraclavicular nodes. No lymphangitis Psych: no agitation Neurological: opens eyes, intubated, on the vent, exam limited - Constitutional Vitals: Vital Signs Temp Pulse Resp BP Pulse Ox 97.6 F 98 H 15 101/68 100 04/20/22 08:21 04/20/22 10:45 04/20/22 10:45 04/20/22 10:45 04/20/22 10:45 Temperature -Last 24 Hours Temperature 97.6 F Temperature 98.8 F Temperature 98.6 F Temperature 99.8 F Temperature 98 F Temperature 97.2 F Temperature 97.2 F - Labs CBC & Chem 7: 04/18/22 23:20 04/20/22 04:00 Labs: Abnormal lab results 04/19/22 04/19/22 04/19/22 Range/Units 05:27 06:46 11:14 ABG pH (7.350-7.450) pH Units ABG pO2 (80.0-90.0) mm Hg ABG Base Excess (-2.0-3.0) mmol/L ABG Hemoglobin (14.0-18.0) gm/dl Potassium (3.6-5.0) mmol/L Carbon Dioxide (22-30) mmol/L BUN (9-20) mg/dL Creatinine (0.8-1.3) mg/dL POC Glucose 107 H 111 H 164 H (70-105) mg/dL Calcium (8.4-10.2) mg/dL Phosphorus (2.5-4.5) mg/dL AST (5-40) units/L ALT (7-56) units/L Total Protein (6.3-8.2) g/dL Albumin (3.9-5) g/dL 04/19/22 04/20/22 04/20/22 Range/Units 17:18 04:00 04:30 ABG pH 7.313 L (7.350-7.450) pH Units ABG pO2 171.4 H (80.0-90.0) mm Hg ABG Base Excess -2.8 L (-2.0-3.0) mmol/L ABG Hemoglobin 6.9 L (14.0-18.0) gm/dl Potassium 5.7 H (3.6-5.0) mmol/L Carbon Dioxide 19 L D (22-30) mmol/L BUN 99 H (9-20) mg/dL Creatinine 8.0 H (0.8-1.3) mg/dL POC Glucose 128 H (70-105) mg/dL Calcium 6.9 L D (8.4-10.2) mg/dL Phosphorus 6.90 H (2.5-4.5) mg/dL AST 118 H (5-40) units/L ALT 67 H (7-56) units/L Total Protein 6.2 L (6.3-8.2) g/dL Albumin 2.0 L (3.9-5) g/dL
--- NOTE | 2022-04-20 11:15 | Progress Note ---
<ANTONIO PENNY - Last Filed: 04/20/22 23:32> Assessment and Plan Assessment and plan: This is a 67-year-old male with known past medical history of CAD, CKD, atrial fibrillation, BPH, gastric bypass, renal insufficency, HTN, thoracic aortic aneurysm without rupture, nicotine dependence, benign lungs nodules s/p LDCT, R A, and debility initially admitted to floor for Afib with RVR, acute on CKD requiring HD, and sepsis secondary to aspiration PNA and VRE UTI. Patient was a code Met and transferred to ICU on 04/19 due acute hypoxic respiratory failure requiring ventilatory support. While in the ICU patient PEA arrested treated per ACLS protocol, ROSC achieved after 3 minutes. ICU Course to Date: 04/19: Sedation initiated overnight due to increase agitation. Remains on the vent and sedated. Open eyes spontaneously but does not tract, does not follow commands. Pupils are irregular, Left pupil is blown and nonreactive, right pupil is pinpoint and sluggish. Repeat CT head pending. Patient is s/p 4units of PRBCs due to low H&H, no s/s of any active bleeding. H&H stable this am, down to 2 pressors today. SR with frequent PVCs noted on the monitor. 2D echo pending and cardiology reconsulted. Pantocytopenic this am, repeat cultures pending, continue current IV abx per ID. Continue to trend CBC. Continue HD per Nephrology. Patient is a AND/DNR status, patient's family wants to give patient another 24hrs to 48hrs before making a decision for possible inpatient hospice vs withdrawal of care. 04/20: Patient's condition is unchanged. Patient is in Afib this am, HR in the 90-110s, remains on low dose Levophed gtt this am, Midodrine added TID. Plan to wean off pressors. D/w Cardio repeat echo shows worsen of LVEF to 15% to 20%. Cardio recommended comfort/hospice care at this time since there is not much they can offer at this time, Cardio to contact patient's family to notify them of ECHO result and recommendation. Case management will also follow up with patient's brother to see if they family had made a desicion of GOC for patient. Patient remains pantocytopenic with dropped in H&H this am, no s/s of any active bleeding. Will continue to monitor for now, pending family's decision. Assessment and plan: #S/p PEA Arrest with ROSC #Paroxysmal Atrial Fibrillation #Congestive Heart Failure with reduced EF- 25 to 30% #Non-ST elevation CA (type II) - Blayne down and PEA arrested in the ICU after transfer, most likely Cardiopulmonary arrest - PEA arrest treated per ACLS protocol, ROSC achieved after 3 minutes - required multiple pressors post code- Dopamine, Epi, levo, vaso, and Alejandro - Cardiology consulted, appreciate recommendations - elevated Troponin, most likely demand ischemia - In AFIB, HR in the 90-110s this am, remains on Levophed - Patient remains on PO amiodarone, BB held due to hypotension - Continue holding NATALYA inhibitor and ARB in the setting of MARIE - Midodrine added TID, in an attempt to wean pressors - Last Echo reviewed- LVEF 25 to 30%. repeat Echo pending - Continue blood pressure monitor per protocol - Titrate pressors to maintain MAP above 65 - Hold AC due to anemia requiring blood products - Strict I&Os and Daily weight #Acute Hypoxic Respiratory Failure #Mucous Plugging with Atelectasis of Left Lung #Bilateral Pleural Effusion #Chronic Aspiration #Hospital-Acquired Pneumonia - With recurrent aspiration pneumonia, complete multiple course of IV antibiotic - Worsen hypoxia and complete opacity of left lung on 04/18 s/p intubation during code met, then bronchoscopy in the ICU - Repeat CXR with significant improvement - Vent setting: PRVC-45%,8,14,425 - AM ABG noted - CCM consulted, appreciate recommendations - Continue IV Abx per ID and Nebs/vent management per CCM - VAP bundle addressed - Aspiration precaution HOB above 30 - Daily SBT and SAT trials as tolerated - Daily ABG and CXR - Continue SPO2 monitoring for SPO2 goal above 92% #Severe Sepsis #VRE Urinary Tract Infection(UTI) (POA) #Nonspecific Colitis #Hospital-acquired pneumonia #Chronic aspiration risk - Completed a IV abx course for PNA and VRE UTI - Patient with persistent aspiration and develop HAP and was placed back on IV abx - Recent imagings revealed right lower lobe atelectasis and completed opacities of Left lung. CT abs/pelvis also suggested nonspecific colitis - Now with pantocytopenia, on pressors - Initial B.cultures negative, UA +VRE, repeat blood cultures and sputum culture pending - ID on consult, appreciate recommendations - Continue current IV Abx- Zosyn - F/U on cultures - Daily CBC monitor #Acute Metabolic Encephalopathy - Multifactorial, probably secondary to above - S/p PEA arrest now intubated and sedated, on fentanyl gtt - Patient open eyes spontaneously but does not tract, does not follow commands. Pupils are irregular, Left pupil is blown and nonreactive, right pupil is pinpoint and sluggish. - Repeat CT head pending - Titrate sedation for RASS 0 to -2 - Daily SAT and SBT - Avoid benzodiazepine to reduce the possibility of delirium - PRN Analgesia for CPOT greater than 3 - Maintenance of sleep-wake cycle #MARIE on chronic kidney disease stage III, now on HD #Hyperkalemia-resolved - Nephrology on consult, appreciated recommendation - iHD initiated this admit on 04/13/2022 - Righ chest Permacath inserted by Vascular Surgery - Continue HD per Nephro - Strict intake and output - Avoid nephrotoxic medications; Renally dose medications - Monitor and replace electrolytes as needed #Microcytic Anemia #Chronic lower GI bleed - Initially presented with anemia, c/f possible GIB - GI was consulted and recommend colonoscopy - Colonoscopy was initially planned, however patient unable to undergo colonoscopy due to incomplete bowel prep then with worsening metabolic encephalopathy. - Procedure in currently on hold for now - Drop of H&H post code, s/p 4units of PRBCs - No s/s of any active bleeding, H&H dropped this am - Continue to trend CBC - Hold AC for now Transfuse if hemoglobin <7 or patient becomes symptomatic. 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 and prednisone as per his home medications - Home meds on hold due to pancytopenia - PRN analgesia for pain control #Moderate protein calorie malnutrition Albumin 2.8 Enteral nutrition held due to high pressor requirements - Resume TF once down to one pressor - Nutrition on consult for TF management #Tobacco dependence #Tobacco/Smoking cessation counseling - Reinforce smoking cessation education once patient is coherent and off the vent - PRN nicotine patch if needed #GI/DVT Prophylaxis - PPI- Lansoprazole - SCDs bilateral lower extremities while in bed, #Advance Care Planning - Disease education data, care plan, diagnoses, and prognosis were discussed with patient and patient's NOKs, brothers and sisters. They acknowledged understanding and agreed with current care plan. Patient's siblings opted for AND/DNR status. - Patient's family wants to give patient another 24hrs to 48hrs before making a decision for possible inpatient hospice vs withdrawal of care. The high probability of a clinically significant, sudden or life threatening deterioration of the [multiple] system(s) required my full and direct attention, intervention and personal management. The aggregate critical care time was [60] minutes. This time is in addition to time spent performing reported procedures but includes the following: [x] Data Review and interpretation [x] Patient assessment and monitoring of vital signs [x] Documentation [x] Medication orders and management Disposition Plan: ICU Total Time Spent with Patient (Minutes): 60 History Interval history: Patient seen and examined at the bedside. Remains on the vent, on low dose fentanyl gtt. Mentation is unchanged. Remains on Levophed gtt this am. GHAZAL overnight Hospitalist Physical - Physical exam Narrative exam: General appearance: Present: no acute distress, well-nourished, other (Intubated and Sedated) - EENT Eyes: Present: irregular pupil, miosis (Right pupil, nonreactive), mydriasis (Left pupil, nonreactive) - Respiratory Respiratory effort: normal Respiratory: bilateral: rhonchi - Cardiovascular Rhythm: regular Heart Sounds: Present: S1 & S2 - Extremities Extremities: no ischemia, pulses intact, pulses symmetrical Peripheral Pulses: within normal limits - Abdominal General gastrointestinal: soft, non-distended, normal bowel sounds - Integumentary Integumentary: Present: warm, dry - Psychiatric Psychiatric: other (Intubated and Sedated) - Neurologic Neurologic: other (Intubated and sedated. Open eyes spontaneously, does not tract, does not follow any commands) - Allied Health Allied health notes reviewed: nursing, case management - Constitutional Vitals: Temp Pulse Resp BP Pulse Ox 97.6 F 98 H 15 101/68 100 04/20/22 08:21 04/20/22 10:45 04/20/22 10:45 04/20/22 10:45 04/20/22 10:45 HEART Score - HEART Score Troponin: Troponin T 0.322 ng/mL (0.00-0.029) H* 04/18/22 Unknown Results - Labs CBC & Chem 7: 04/20/22 10:40 04/20/22 04:00 Labs: Laboratory Last Values WBC 3.1 K/mm3 (4.5-11.0) L 04/20/22 10:40 RBC 2.44 M/mm3 (3.65-5.03) L 04/20/22 10:40 Hgb 6.7 gm/dl (11.8-15.2) L 04/20/22 10:40 Hct 20.3 % (35.5-45.6) L D 04/20/22 10:40 MCV 83 fl (84-94) L 04/20/22 10:40 MCH 27 pg (28-32) L 04/20/22 10:40 MCHC 33 % (32-34) 04/20/22 10:40 RDW 20.7 % (13.2-15.2) H 04/20/22 10:40 Plt Count 28 K/mm3 (140-440) L 04/20/22 10:40 Lymph % (Auto) 10.2 % (13.4-35.0) L 04/18/22 04:24 Pratt % (Auto) 1.0 % (0.0-7.3) 04/18/22 04:24 Eos % (Auto) 1.9 % (0.0-4.3) 04/18/22 04:24 Baso % (Auto) 0.4 % (0.0-1.8) 04/18/22 04:24 Lymph # (Auto) 0.5 K/mm3 (1.2-5.4) L 04/18/22 04:24 Pratt # (Auto) 0.1 K/mm3 (0.0-0.8) 04/18/22 04:24 Eos # (Auto) 0.1 K/mm3 (0.0-0.4) 04/18/22 04:24 Baso # (Auto) 0.0 K/mm3 (0.0-0.1) 04/18/22 04:24 Add Manual Diff Complete 04/18/22 23:20 Total Counted 50 04/18/22 23:20 Seg Neutrophils % 86.5 % (40.0-70.0) H 04/18/22 04:24 Seg Neuts % (Manual) 32.0 % (40.0-70.0) L 04/18/22 23:20 Band Neutrophils % 2.0 % 04/18/22 23:20 Lymphocytes % (Manual) 64.0 % (13.4-35.0) H 04/18/22 23:20 Reactive Lymphs % (Man) 0 % 04/18/22 23:20 Monocytes % (Manual) 2.0 % (0.0-7.3) 04/18/22 23:20 Eosinophils % (Manual) 0 % (0.0-4.3) 04/18/22 23:20 Basophils % (Manual) 0 % (0.0-1.8) 04/18/22 23:20 Metamyelocytes % 0 % 04/18/22 23:20 Myelocytes % 0 % 04/18/22 23:20 Promyelocytes % 0 % 04/18/22 23:20 Blast Cells % 0 % 04/18/22 23:20 Nucleated RBC % Not Reportable 04/18/22 23:20 Seg Neutrophils # 4.4 K/mm3 (1.8-7.7) 04/18/22 04:24 Seg Neutrophils # Man 0.6 K/mm3 (1.8-7.7) L 04/18/22 23:20 Band Neutrophils # 0.0 K/mm3 04/18/22 23:20 Lymphocytes # (Manual) 1.2 K/mm3 (1.2-5.4) 04/18/22 23:20 Abs React Lymphs (Man) 0.0 K/mm3 04/18/22 23:20 Monocytes # (Manual) 0.0 K/mm3 (0.0-0.8) 04/18/22 23:20 Eosinophils # (Manual) 0.0 K/mm3 (0.0-0.4) 04/18/22 23:20 Basophils # (Manual) 0.0 K/mm3 (0.0-0.1) 04/18/22 23:20 Metamyelocytes # 0.0 K/mm3 04/18/22 23:20 Myelocytes # 0.0 K/mm3 04/18/22 23:20 Promyelocytes # 0.0 K/mm3 04/18/22 23:20 Blast Cells # 0.0 K/mm3 04/18/22 23:20 WBC Morphology Not Reportable 04/18/22 23:20 Hypersegmented Neuts Not Reportable 04/18/22 23:20 Hyposegmented Neuts Not Reportable 04/18/22 23:20 Hypogranular Neuts Not Reportable 04/18/22 23:20 Smudge Cells Not Reportable 04/18/22 23:20 Toxic Granulation Not Reportable 04/18/22 23:20 Toxic Vacuolation Not Reportable 04/18/22 23:20 Dohle Bodies Not Reportable 04/18/22 23:20 Pelger-Huet Anomaly Not Reportable 04/18/22 23:20 Marylin Rods Not Reportable 04/18/22 23:20 Platelet Estimate Consistent w auto 04/18/22 23:20 Clumped Platelets Not Reportable 04/18/22 23:20 Plt Clumps, EDTA Not Reportable 04/18/22 23:20 Large Platelets Not Reportable 04/18/22 23:20 Giant Platelets Not Reportable 04/18/22 23:20 Platelet Satelliting Not Reportable 04/18/22 23:20 Plt Morphology Comment Not Reportable 04/18/22 23:20 RBC Morphology Not Reportable 04/18/22 23:20 Dimorphic RBCs Not Reportable 04/18/22 23:20 Polychromasia Not Reportable 04/18/22 23:20 Hypochromasia Not Reportable 04/18/22 23:20 Poikilocytosis Not Reportable 04/18/22 23:20 Anisocytosis 1+ 04/18/22 23:20 Microcytosis Not Reportable 04/18/22 23:20 Macrocytosis Not Reportable 04/18/22 23:20 Spherocytes Not Reportable 04/18/22 23:20 Pappenheimer Bodies Not Reportable 04/18/22 23:20 Sickle Cells Not Reportable 04/18/22 23:20 Target Cells Not Reportable 04/18/22 23:20 Tear Drop Cells Not Reportable 04/18/22 23:20 Ovalocytes Not Reportable 04/18/22 23:20 Helmet Cells Not Reportable 04/18/22 23:20 Alvarez-Arlee Bodies Not Reportable 04/18/22 23:20 [place] Rings Not Reportable 04/18/22 23:20 Damari Cells Not Reportable 04/18/22 23:20 Bite Cells Not Reportable 04/18/22 23:20 Crenated Cell Not Reportable 04/18/22 23:20 Elliptocytes Not Reportable 04/18/22 23:20 Acanthocytes (Spur) Not Reportable 04/18/22 23:20 Rouleaux Not Reportable 04/18/22 23:20 Hemoglobin C Crystals Not Reportable 04/18/22 23:20 Schistocytes Not Reportable 04/18/22 23:20 Malaria parasites Not Reportable 04/18/22 23:20 Cristino Bodies Not Reportable 04/18/22 23:20 Hem Pathologist Commnt No 04/18/22 23:20 ABG pH 7.313 pH Units (7.350-7.450) L 04/20/22 04:30 ABG pCO2 46.8 mm Hg 04/20/22 04:30 ABG pO2 171.4 mm Hg (80.0-90.0) H 04/20/22 04:30 ABG HCO3 23.2 mmol/L (20.0-26.0) 04/20/22 04:30 ABG O2 Saturation 99.0 % (95.0-99.0) 04/20/22 04:30 ABG O2 Content 9.9 (0.0-44) 04/20/22 04:30 ABG Base Excess -2.8 mmol/L (-2.0-3.0) L 04/20/22 04:30 ABG Hemoglobin 6.9 gm/dl (14.0-18.0) L 04/20/22 04:30 ABG Carboxyhemoglobin 0.9 % (0.0-5.0) 04/20/22 04:30 ABG Methemoglobin 0.7 % (0.0-1.5) 04/20/22 04:30 Oxyhemoglobin 97.4 % (95.0-99.0) 04/20/22 04:30 FiO2 45 % 04/20/22 04:30 Sodium 141 mmol/L (137-145) D 04/20/22 04:00 Potassium 5.7 mmol/L (3.6-5.0) H 04/20/22 04:00 Chloride 101.3 mmol/L (98-107) 04/20/22 04:00 Carbon Dioxide 19 mmol/L (22-30) L D 04/20/22 04:00 Anion Gap 26 mmol/L 04/20/22 04:00 BUN 99 mg/dL (9-20) H 04/20/22 04:00 Creatinine 8.0 mg/dL (0.8-1.3) H 04/20/22 04:00 Estimated GFR 8 ml/min 04/20/22 04:00 BUN/Creatinine Ratio 12 % 04/20/22 04:00 Glucose 95 mg/dL (75-100) 04/20/22 04:00 POC Glucose 103 mg/dL (70-105) 04/19/22 23:43 Lactic Acid 1.80 mmol/L (0.7-2.0) 04/19/22 04:24 Calcium 6.9 mg/dL (8.4-10.2) L D 04/20/22 04:00 Phosphorus 6.90 mg/dL (2.5-4.5) H 04/20/22 04:00 Magnesium 2.20 mg/dL (1.7-2.3) 04/20/22 04:00 Total Bilirubin 1.10 mg/dL (0.1-1.2) 04/20/22 04:00 AST 118 units/L (5-40) H 04/20/22 04:00 ALT 67 units/L (7-56) H 04/20/22 04:00 Alkaline Phosphatase 108 units/L (35-129) 04/20/22 04:00 Total Creatine Kinase 55 units/L (55-170) 03/31/22 08:00 Troponin T 0.322 ng/mL (0.00-0.029) H* 04/18/22 Unknown NT-Pro-B Natriuret Pep 59586 pg/mL (0-900) H 03/31/22 08:00 Total Protein 6.2 g/dL (6.3-8.2) L 04/20/22 04:00 Albumin 2.0 g/dL (3.9-5) L 04/20/22 04:00 Albumin/Globulin Ratio 0.5 % 04/20/22 04:00 Triglycerides 76 mg/dL (2-149) 03/31/22 08:00 Cholesterol 109 mg/dL (50-199) 03/31/22 08:00 LDL Cholesterol Direct 55 mg/dL (50-130) 03/31/22 08:00 HDL Cholesterol 38 mg/dL (40-59) L 03/31/22 08:00 Cholesterol/HDL Ratio 2.86 % 03/31/22 08:00 Procalcitonin 0.36 ng/mL (<0.15) 03/31/22 08:00 Urine Color Yellow (Yellow) 04/10/22 17:00 Urine Turbidity Slightly cloudy (Clear) 04/10/22 17:00 Specific [place] (Man) 1.010 (1.003-1.030) 04/10/22 17:00 Ur Protein (Man) 2+ mg/dL (Negative) 04/10/22 17:00 Ur Ketones (Man) Negative (Negative) 04/10/22 17:00 Ur Nitrite (Man) Negative (Negative) 04/10/22 17:00 Ur Reducing Substances Not Reportable 04/10/22 17:00 Urine Bilirubin (Man) Negative (Negative) 04/10/22 17:00 Urine Ictotest Not Reportable 04/10/22 17:00 Leukocyte Esterase (Man) Negative (Negative) 04/10/22 17:00 Urine WBC (Auto) 2.0 /HPF (0.0-6.0) 04/10/22 17:00 Urine RBC (Auto) 4.0 /HPF (0.0-6.0) 04/10/22 17:00 Urine Bacteria (Auto) 2+ /HPF (Negative) 04/10/22 17:00 Urine RBC (Manual) 3+ (Negative) 04/10/22 17:00 Granular Casts 6 /LPF 04/01/22 05:20 RBC Casts 7 /LPF 04/01/22 05:20 Urine Yeast (Budding) 3+ /HPF 04/10/22 17:00 Urine Creatinine 82.0 mg/dL (0.1-20.0) H 04/05/22 18:16 Urine Sodium 107 mmol/L 04/05/22 18:16 Random Vancomycin 18.2 ug/mL (0-40.0) 04/06/22 05:46 SARS-CoV-2 (PCR) Negative (Negative) 04/08/22 09:45 Hepatitis A IgM Ab Non-reactive (NonReactive) 04/13/22 14:19 Hep Bs Antigen Non-reactive (Negative) 04/13/22 14:19 Hep B Core IgM Ab Non-reactive (NonReactive) 04/13/22 14:19 Hepatitis C Antibody Non-reactive (NonReactive) 04/13/22 14:19 Blood Type O POSITIVE 04/18/22 15:39 Antibody Screen Negative 04/18/22 15:39 Crossmatch See Detail 04/18/22 15:39 Microbiology: Microbiology 04/18/22 23:55 Peripheral/Venous Blood Culture - Preliminary NO GROWTH AFTER 24 HOURS 04/18/22 23:55 Peripheral/Venous Blood Culture - Preliminary NO GROWTH AFTER 24 HOURS Arteaga/IV: Voiding Method Condom Catheter Active Medications - Current Medications Current Medications: Generic Name Dose Route Start Last Admin Trade Name Freq PRN Reason Stop Dose Admin Acetaminophen 650 mg 03/31/22 13:31 04/19/22 21:47 Acetaminophen 325 Mg Tab PO 650 mg Q4H PRN Administration Pain MILD(1-3)/Fever >100.5/HILTON Albuterol/Ipratropium 1 ampul 04/18/22 10:00 04/20/22 08:20 Ipratropium/Albuterol Sulfate 3 Ml Ampul.Neb IH 1 ampul Q4HRT FRANCESCA Administration Amiodarone HCl 200 mg 03/31/22 22:00 04/20/22 10:15 Amiodarone 200 Mg Tab PO 200 mg BID FRANCESCA Administration Aspirin 81 mg 04/01/22 10:00 04/20/22 10:15 Aspirin 81 Mg Tab Chew PO 81 mg QDAY FRANCESCA Administration Atorvastatin Calcium 40 mg 03/31/22 22:00 04/19/22 21:27 Atorvastatin 40 Mg Tab PO 40 mg QHS FRANCESCA Administration Dextrose 25 ml 04/15/22 00:04 Dextrose 50% In Water (25gm) 50 Ml Syringe IV Q30MIN PRN Hypoglycemia Protocol Dextrose 50 ml 04/20/22 09:30 04/20/22 10:15 Dextrose 50% In Water (25gm) 50 Ml Syringe IV 04/20/22 12:30 50 ml ONCE@0930 FRANCESCA Administration Protocol Epoetin Gordon-epbx 20,000 unit 04/14/22 15:00 Epoetin Gordon-Epbx 10,000 Unit/1 Ml Vial SUB-Q CORINNE PRN hemodialysis Fentanyl 50 mcg 04/18/22 19:20 04/18/22 19:46 Fentanyl 100 Mcg/2 Ml Inj IV 50 mcg Q4HR PRN Administration Pain , Severe (7-10) Folic Acid 1 mg 04/08/22 10:00 04/20/22 10:15 Folic Acid 1 Mg Tab PO 1 mg DAILY FRANCESCA Administration Heparin Sodium (Porcine) 3,000 unit 04/13/22 10:24 Heparin 10,000 Units/10 Ml Vial IV CORINNE PRN hemodialysis Hydrophilic Ointment 1 applic 04/18/22 15:23 Lip Therapy Vaseline TP Q2HR PRN Dry Lips Sodium Chloride 100 mls @ 999 mls/hr 04/13/22 10:24 04/18/22 15:08 Nacl 0.9% IV 999 mls/hr CORINNE PRN Administration Hypotension Piperacillin Sod/Tazobactam Sod 2.25 gm in 50 mls @ 100 mls/hr 04/18/22 06:00 04/20/22 05:03 Zosyn/Ns 2.25 Gm/50ml IV 100 mls/hr Q8H FRANCESCA Administration NORepinephrine/NS 8 MG-250 ML 8 mg in 250 mls @ 14.438 mls/hr 04/18/22 15:00 04/20/22 10:41 Norepinephrine/Ns 8 Mg-250 Ml (Double Conc) IV 0.05 mcg/kg/min TITRATE FRANCESCA 7.219 mls/hr Titration Protocol 0.1 MCG/KG/MIN Vasopressin 20 unit/ Sodium 101 mls @ 9.09 mls/hr 04/18/22 15:00 04/20/22 10:33 Chloride IV 0.03 units/min TITR FRANCESCA 9.09 mls/hr Administration Protocol 0.03 UNITS/MIN Phenylephrine HCl 50 mg/ 250 mls @ 11.55 mls/hr 04/18/22 15:45 04/19/22 02:36 Sodium Chloride IV 0 mcg/kg/min TITR FRANCESCA 0 mls/hr Titration Protocol 0.5 MCG/KG/MIN Fentanyl Citrate 1,000 mcg in 100 mls @ 2.5 mls/hr 04/18/22 23:45 04/20/22 10:42 Fentanyl Drip Premix IV 75 mcg/hr TITR FRANCESCA 7.5 mls/hr Titration Protocol 25 MCG/HR Lansoprazole 30 mg 04/19/22 10:00 04/20/22 10:15 Lansoprazole 30 Mg Solutab FEEDTUBE 30 mg BID FRANCESCA Administration Midodrine 10 mg 04/20/22 10:00 04/20/22 10:15 Midodrine 10 Mg Tab PO 10 mg TID@0800,1200,1600 FRANCESCA Administration Multi-Ingred Cream/Lotion/Oil/Oint 1 applic 04/18/22 15:23 Mineral Oil/Petrolatum, White Ophth Oint 3.5 Gm OU Q4HR PRN Dry Eye(s) Ondansetron HCl 4 mg 03/31/22 13:31 Ondansetron 4 Mg/2 Ml Inj IV Q8H PRN Nausea And Vomiting Quetiapine Fumarate 50 mg 03/31/22 22:00 04/19/22 21:28 Quetiapine 25 Mg Tab PO Not Given QHS FRANCESCA Scopolamine 1 each 04/18/22 11:00 04/18/22 11:13 Scopolamine Transdermal Patch 72 Hr TD 1 each Q72HR FRANCESCA Administration Senna/Docusate Sodium 1 tab 04/18/22 22:00 04/19/22 21:28 Sennosides/Docusate Sodium 8.6/50 Mg Tab FEEDTUBE 1 tab BID FRANCESCA Administration Sodium Chloride 10 ml 03/31/22 22:00 04/20/22 10:15 Sodium Chloride 0.9% 10 Ml Flush Syringe IV 10 ml BID FRANCESCA Administration Nutrition/Malnutrition Assess - Dietary Evaluation Nutrition/Malnutrition Findings: Nutrition Notes Start: 04/01/22 10:53 Freq: Status: Active Protocol: Document 04/15/22 12:27 SIM (Rec: 04/15/22 12:39 INDWIGHT [id number]) Nutrition Notes Initial or Follow up Reassessment Current Diagnosis Acute Kidney Injury,Sepsis, Heart Failure,Respiratory Failure Other Pertinent Diagnosis Pneu, UTI, acute metabolic encephalopathy, anemia Current Diet TF - Nepro at 45ml/hr Labs/Tests Na 136 K 3.5 BUN 45 Cr 6.1 Pertinent Medications 40mEq KCl Height 5 ft 9 in Weight 77 kg Carmichaels Body Weight (kg) 72.72 BMI 25.0 Weight Status Appropriate Subjective/Other Information Pt tolerating TF at goal rate. Per MICRO COMPUTER DATA PROCESSOR evaluation on 04/14, PEG tube recommended. HD initiated on 04/13. New stage 2 sacral wound and (L) posterior buttocks wound reported 04/13. Percent of energy/protein needs met: 105% energy 95% pro Burn Absent Trauma Absent #2 Nutrition Diagnosis Altered nutrition-related laboratory values Diagnosis Progress(for reassessment Continues documentation) #1 Nutrition Diagnosis Inadequate oral intake Diagnosis Progress(for reassessment Continues documentation) Is patient on ventilator? No Is Patient Ambulatory and/or Out of Bed No [facility] [phone] Calculation Used for Recommendations [facility] Liza Additional Notes Pro needs >1.2g/kg: >92g/day Fluid needs 1-1.5L/day Nutrition Intervention Nutrition Support: Continue Nepro at 45ml/hr with 200ml water flush q4h. Kcal 1,944 Protein (gm) 87 Carbohydrates (gm) 174 Fat (gm) 104 Fluid (mL) 785 Fiber (gm) 14 Goal #1 TF tolerance Goal #2 TF to provide at least 75% energy and pro needs Follow-Up By: 04/22/22 Additional Comments F/U: stable TF, wt <ROSALIO RUSSELL E - Last Filed: 04/21/22 07:18> Assessment and Plan Assessment and plan: I saw and evaluated the patient. I agree with the findings and the plan of care as documented in the Nurse Practitioner's~note, with the following corrections and additions. Hospitalist Physical - Constitutional Vitals: Temp Pulse Resp BP Pulse Ox 97.7 F 90 16 101/64 98 04/21/22 04:00 04/21/22 06:30 04/21/22 06:30 04/21/22 06:30 04/21/22 06:30 HEART Score - HEART Score Troponin: Troponin T 0.322 ng/mL (0.00-0.029) H* 04/18/22 Unknown Results - Labs CBC & Chem 7: 04/21/22 04:00 04/21/22 04:00 Labs: Laboratory Last Values WBC 2.2 K/mm3 (4.5-11.0) L 04/21/22 04:00 RBC 2.57 M/mm3 (3.65-5.03) L 04/21/22 04:00 Hgb 6.8 gm/dl (11.8-15.2) L 04/21/22 04:00 Hct 21.5 % (35.5-45.6) L 04/21/22 04:00 MCV 84 fl (84-94) 04/21/22 04:00 MCH 27 pg (28-32) L 04/21/22 04:00 MCHC 32 % (32-34) 04/21/22 04:00 RDW 21.4 % (13.2-15.2) H 04/21/22 04:00 Plt Count 19 K/mm3 (140-440) L* 04/21/22 04:00 Lymph % (Auto) 10.2 % (13.4-35.0) L 04/18/22 04:24 Pratt % (Auto) 1.0 % (0.0-7.3) 04/18/22 04:24 Eos % (Auto) 1.9 % (0.0-4.3) 04/18/22 04:24 Baso % (Auto) 0.4 % (0.0-1.8) 04/18/22 04:24 Lymph # (Auto) 0.5 K/mm3 (1.2-5.4) L 04/18/22 04:24 Pratt # (Auto) 0.1 K/mm3 (0.0-0.8) 04/18/22 04:24 Eos # (Auto) 0.1 K/mm3 (0.0-0.4) 04/18/22 04:24 Baso # (Auto) 0.0 K/mm3 (0.0-0.1) 04/18/22 04:24 Add Manual Diff Complete 04/18/22 23:20 Total Counted 50 04/18/22 23:20 Seg Neutrophils % 86.5 % (40.0-70.0) H 04/18/22 04:24 Seg Neuts % (Manual) 32.0 % (40.0-70.0) L 04/18/22 23:20 Band Neutrophils % 2.0 % 04/18/22 23:20 Lymphocytes % (Manual) 64.0 % (13.4-35.0) H 04/18/22 23:20 Reactive Lymphs % (Man) 0 % 04/18/22 23:20 Monocytes % (Manual) 2.0 % (0.0-7.3) 04/18/22 23:20 Eosinophils % (Manual) 0 % (0.0-4.3) 04/18/22 23:20 Basophils % (Manual) 0 % (0.0-1.8) 04/18/22 23:20 Metamyelocytes % 0 % 04/18/22 23:20 Myelocytes % 0 % 04/18/22 23:20 Promyelocytes % 0 % 04/18/22 23:20 Blast Cells % 0 % 04/18/22 23:20 Nucleated RBC % Not Reportable 04/18/22 23:20 Seg Neutrophils # 4.4 K/mm3 (1.8-7.7) 04/18/22 04:24 Seg Neutrophils # Man 0.6 K/mm3 (1.8-7.7) L 04/18/22 23:20 Band Neutrophils # 0.0 K/mm3 04/18/22 23:20 Lymphocytes # (Manual) 1.2 K/mm3 (1.2-5.4) 04/18/22 23:20 Abs React Lymphs (Man) 0.0 K/mm3 04/18/22 23:20 Monocytes # (Manual) 0.0 K/mm3 (0.0-0.8) 04/18/22 23:20 Eosinophils # (Manual) 0.0 K/mm3 (0.0-0.4) 04/18/22 23:20 Basophils # (Manual) 0.0 K/mm3 (0.0-0.1) 04/18/22 23:20 Metamyelocytes # 0.0 K/mm3 04/18/22 23:20 Myelocytes # 0.0 K/mm3 04/18/22 23:20 Promyelocytes # 0.0 K/mm3 04/18/22 23:20 Blast Cells # 0.0 K/mm3 04/18/22 23:20 WBC Morphology Not Reportable 04/18/22 23:20 Hypersegmented Neuts Not Reportable 04/18/22 23:20 Hyposegmented Neuts Not Reportable 04/18/22 23:20 Hypogranular Neuts Not Reportable 04/18/22 23:20 Smudge Cells Not Reportable 04/18/22 23:20 Toxic Granulation Not Reportable 04/18/22 23:20 Toxic Vacuolation Not Reportable 04/18/22 23:20 Dohle Bodies Not Reportable 04/18/22 23:20 Pelger-Huet Anomaly Not Reportable 04/18/22 23:20 Marylin Rods Not Reportable 04/18/22 23:20 Platelet Estimate Consistent w auto 04/18/22 23:20 Clumped Platelets Not Reportable 04/18/22 23:20 Plt Clumps, EDTA Not Reportable 04/18/22 23:20 Large Platelets Not Reportable 04/18/22 23:20 Giant Platelets Not Reportable 04/18/22 23:20 Platelet Satelliting Not Reportable 04/18/22 23:20 Plt Morphology Comment Not Reportable 04/18/22 23:20 RBC Morphology Not Reportable 04/18/22 23:20 Dimorphic RBCs Not Reportable 04/18/22 23:20 Polychromasia Not Reportable 04/18/22 23:20 Hypochromasia Not Reportable 04/18/22 23:20 Poikilocytosis Not Reportable 04/18/22 23:20 Anisocytosis 1+ 04/18/22 23:20 Microcytosis Not Reportable 04/18/22 23:20 Macrocytosis Not Reportable 04/18/22 23:20 Spherocytes Not Reportable 04/18/22 23:20 Pappenheimer Bodies Not Reportable 04/18/22 23:20 Sickle Cells Not Reportable 04/18/22 23:20 Target Cells Not Reportable 04/18/22 23:20 Tear Drop Cells Not Reportable 04/18/22 23:20 Ovalocytes Not Reportable 04/18/22 23:20 Helmet Cells Not Reportable 04/18/22 23:20 Alvarez-Arlee Bodies Not Reportable 04/18/22 23:20 [place] Rings Not Reportable 04/18/22 23:20 Damari Cells Not Reportable 04/18/22 23:20 Bite Cells Not Reportable 04/18/22 23:20 Crenated Cell Not Reportable 04/18/22 23:20 Elliptocytes Not Reportable 04/18/22 23:20 Acanthocytes (Spur) Not Reportable 04/18/22 23:20 Rouleaux Not Reportable 04/18/22 23:20 Hemoglobin C Crystals Not Reportable 04/18/22 23:20 Schistocytes Not Reportable 04/18/22 23:20 Malaria parasites Not Reportable 04/18/22 23:20 Cristino Bodies Not Reportable 04/18/22 23:20 Hem Pathologist Commnt No 04/18/22 23:20 ABG pH 7.441 pH Units (7.350-7.450) 04/21/22 03:42 ABG pCO2 30.6 mm Hg 04/21/22 03:42 ABG pO2 168.4 mm Hg (80.0-90.0) H 04/21/22 03:42 ABG HCO3 20.3 mmol/L (20.0-26.0) 04/21/22 03:42 ABG O2 Saturation 99.1 % (95.0-99.0) H 04/21/22 03:42 ABG O2 Content 10.0 (0.0-44) 04/21/22 03:42 ABG Base Excess -3.4 mmol/L (-2.0-3.0) L 04/21/22 03:42 ABG Hemoglobin 7.0 gm/dl (14.0-18.0) L 04/21/22 03:42 ABG Carboxyhemoglobin 1.0 % (0.0-5.0) 04/21/22 03:42 ABG Methemoglobin 0.6 % (0.0-1.5) 04/21/22 03:42 Oxyhemoglobin 97.6 % (95.0-99.0) 04/21/22 03:42 FiO2 40 % 04/21/22 03:42 Sodium 143 mmol/L (137-145) 04/21/22 04:00 Potassium 4.4 mmol/L (3.6-5.0) D 04/21/22 04:00 Chloride 101.6 mmol/L (98-107) 04/21/22 04:00 Carbon Dioxide 20 mmol/L (22-30) L 04/21/22 04:00 Anion Gap 26 mmol/L 04/21/22 04:00 BUN 108 mg/dL (9-20) H 04/21/22 04:00 Creatinine 8.4 mg/dL (0.8-1.3) H 04/21/22 04:00 Estimated GFR 8 ml/min 04/21/22 04:00 BUN/Creatinine Ratio 13 % 04/21/22 04:00 Glucose 106 mg/dL (75-100) H 04/21/22 04:00 POC Glucose 101 mg/dL (70-105) 04/21/22 00:33 Lactic Acid 1.80 mmol/L (0.7-2.0) 04/19/22 04:24 Calcium 7.2 mg/dL (8.4-10.2) L 04/21/22 04:00 Phosphorus 5.80 mg/dL (2.5-4.5) H 04/21/22 04:00 Magnesium 2.20 mg/dL (1.7-2.3) 04/21/22 04:00 Total Bilirubin 1.10 mg/dL (0.1-1.2) 04/20/22 04:00 AST 118 units/L (5-40) H 04/20/22 04:00 ALT 67 units/L (7-56) H 04/20/22 04:00 Alkaline Phosphatase 108 units/L (35-129) 04/20/22 04:00 Total Creatine Kinase 55 units/L (55-170) 03/31/22 08:00 Troponin T 0.322 ng/mL (0.00-0.029) H* 04/18/22 Unknown NT-Pro-B Natriuret Pep 59224 pg/mL (0-900) H 03/31/22 08:00 Total Protein 6.2 g/dL (6.3-8.2) L 04/20/22 04:00 Albumin 2.0 g/dL (3.9-5) L 04/20/22 04:00 Albumin/Globulin Ratio 0.5 % 04/20/22 04:00 Triglycerides 76 mg/dL (2-149) 03/31/22 08:00 Cholesterol 109 mg/dL (50-199) 03/31/22 08:00 LDL Cholesterol Direct 55 mg/dL (50-130) 03/31/22 08:00 HDL Cholesterol 38 mg/dL (40-59) L 03/31/22 08:00 Cholesterol/HDL Ratio 2.86 % 03/31/22 08:00 Procalcitonin 0.36 ng/mL (<0.15) 03/31/22 08:00 Urine Color Yellow (Yellow) 04/10/22 17:00 Urine Turbidity Slightly cloudy (Clear) 04/10/22 17:00 Specific [place] (Man) 1.010 (1.003-1.030) 04/10/22 17:00 Ur Protein (Man) 2+ mg/dL (Negative) 04/10/22 17:00 Ur Ketones (Man) Negative (Negative) 04/10/22 17:00 Ur Nitrite (Man) Negative (Negative) 04/10/22 17:00 Ur Reducing Substances Not Reportable 04/10/22 17:00 Urine Bilirubin (Man) Negative (Negative) 04/10/22 17:00 Urine Ictotest Not Reportable 04/10/22 17:00 Leukocyte Esterase (Man) Negative (Negative) 04/10/22 17:00 Urine WBC (Auto) 2.0 /HPF (0.0-6.0) 04/10/22 17:00 Urine RBC (Auto) 4.0 /HPF (0.0-6.0) 04/10/22 17:00 Urine Bacteria (Auto) 2+ /HPF (Negative) 04/10/22 17:00 Urine RBC (Manual) 3+ (Negative) 04/10/22 17:00 Granular Casts 6 /LPF 04/01/22 05:20 RBC Casts 7 /LPF 04/01/22 05:20 Urine Yeast (Budding) 3+ /HPF 04/10/22 17:00 Urine Creatinine 82.0 mg/dL (0.1-20.0) H 04/05/22 18:16 Urine Sodium 107 mmol/L 04/05/22 18:16 Random Vancomycin 18.2 ug/mL (0-40.0) 04/06/22 05:46 SARS-CoV-2 (PCR) Negative (Negative) 04/08/22 09:45 Hepatitis A IgM Ab Non-reactive (NonReactive) 04/13/22 14:19 Hep Bs Antigen Non-reactive (Negative) 04/13/22 14:19 Hep B Core IgM Ab Non-reactive (NonReactive) 04/13/22 14:19 Hepatitis C Antibody Non-reactive (NonReactive) 04/13/22 14:19 Blood Type O POSITIVE 04/18/22 15:39 Antibody Screen Negative 04/18/22 15:39 Crossmatch See Detail 04/18/22 15:39 Microbiology: Microbiology 04/18/22 23:55 Peripheral/Venous Blood Culture - Preliminary NO GROWTH AFTER 48 HOURS 04/18/22 23:55 Peripheral/Venous Blood Culture - Preliminary NO GROWTH AFTER 48 HOURS 04/18/22 15:23 Tracheal Aspirate Sputum Culture - Preliminary Arteaga/IV: Voiding Method Condom Catheter Active Medications - Current Medications Current Medications: Generic Name Dose Route Start Last Admin Trade Name Freq PRN Reason Stop Dose Admin Acetaminophen 650 mg 03/31/22 13:31 04/19/22 21:47 Acetaminophen 325 Mg Tab PO 650 mg Q4H PRN Administration Pain MILD(1-3)/Fever >100.5/HILTON Albuterol/Ipratropium 1 ampul 04/18/22 10:00 04/21/22 04:07 Ipratropium/Albuterol Sulfate 3 Ml Ampul.Neb IH 1 ampul Q4HRT FRANCESCA Administration Amiodarone HCl 200 mg 03/31/22 22:00 04/20/22 22:06 Amiodarone 200 Mg Tab PO 200 mg BID FRANCESCA Administration Aspirin 81 mg 04/01/22 10:00 04/20/22 10:15 Aspirin 81 Mg Tab Chew PO 81 mg QDAY FRANCESCA Administration Atorvastatin Calcium 40 mg 03/31/22 22:00 04/20/22 22:06 Atorvastatin 40 Mg Tab PO 40 mg QHS FRANCESCA Administration Dextrose 25 ml 04/15/22 00:04 Dextrose 50% In Water (25gm) 50 Ml Syringe IV Q30MIN PRN Hypoglycemia Protocol Epoetin Gordon-epbx 20,000 unit 04/14/22 15:00 Epoetin Gordon-Epbx 10,000 Unit/1 Ml Vial SUB-Q CORINNE PRN hemodialysis Fentanyl 50 mcg 04/18/22 19:20 04/18/22 19:46 Fentanyl 100 Mcg/2 Ml Inj IV 50 mcg Q4HR PRN Administration Pain , Severe (7-10) Folic Acid 1 mg 04/08/22 10:00 04/20/22 10:15 Folic Acid 1 Mg Tab PO 1 mg DAILY FRANCESCA Administration Heparin Sodium (Porcine) 3,000 unit 04/13/22 10:24 Heparin 10,000 Units/10 Ml Vial IV CORINNE PRN hemodialysis Hydrophilic Ointment 1 applic 04/18/22 15:23 Lip Therapy Vaseline TP Q2HR PRN Dry Lips Sodium Chloride 100 mls @ 999 mls/hr 04/13/22 10:24 04/18/22 15:08 Nacl 0.9% IV 999 mls/hr CORINNE PRN Administration Hypotension Piperacillin Sod/Tazobactam Sod 2.25 gm in 50 mls @ 100 mls/hr 04/18/22 06:00 04/21/22 06:26 Zosyn/Ns 2.25 Gm/50ml IV 100 mls/hr Q8H FRANCESCA Administration NORepinephrine/NS 8 MG-250 ML 8 mg in 250 mls @ 14.438 mls/hr 04/18/22 15:00 04/20/22 22:27 Norepinephrine/Ns 8 Mg-250 Ml (Double Conc) IV 0.02 mcg/kg/min TITRATE FRANCESCA 2.888 mls/hr Administration Protocol 0.1 MCG/KG/MIN Vasopressin 20 unit/ Sodium 101 mls @ 9.09 mls/hr 04/18/22 15:00 04/20/22 15:50 Chloride IV 0 units/min TITR FRANCESCA 0 mls/hr Titration Protocol 0.03 UNITS/MIN Phenylephrine HCl 50 mg/ 250 mls @ 11.55 mls/hr 04/18/22 15:45 04/19/22 02:36 Sodium Chloride IV 0 mcg/kg/min TITR FRANCESCA 0 mls/hr Titration Protocol 0.5 MCG/KG/MIN Fentanyl Citrate 1,000 mcg in 100 mls @ 2.5 mls/hr 04/18/22 23:45 04/20/22 15:20 Fentanyl Drip Premix IV 0 mcg/hr TITR FRANCESCA 0 mls/hr Titration Protocol 25 MCG/HR Lansoprazole 30 mg 04/19/22 10:00 04/20/22 22:06 Lansoprazole 30 Mg Solutab FEEDTUBE 30 mg BID FRANCESCA Administration Midodrine 10 mg 04/20/22 10:00 04/20/22 15:09 Midodrine 10 Mg Tab PO 10 mg TID@0800,1200,1600 FRANCESCA Administration Multi-Ingred Cream/Lotion/Oil/Oint 1 applic 04/18/22 15:23 Mineral Oil/Petrolatum, White Ophth Oint 3.5 Gm OU Q4HR PRN Dry Eye(s) Ondansetron HCl 4 mg 03/31/22 13:31 Ondansetron 4 Mg/2 Ml Inj IV Q8H PRN Nausea And Vomiting Quetiapine Fumarate 50 mg 03/31/22 22:00 04/20/22 22:05 Quetiapine 25 Mg Tab PO 50 mg QHS FRANCESCA Administration Scopolamine 1 each 04/18/22 11:00 04/18/22 11:13 Scopolamine Transdermal Patch 72 Hr TD 1 each Q72HR FRANCESCA Administration Senna/Docusate Sodium 1 tab 04/18/22 22:00 04/20/22 22:04 Sennosides/Docusate Sodium 8.6/50 Mg Tab FEEDTUBE 1 tab BID FRANCESCA Administration Sodium Chloride 10 ml 03/31/22 22:00 04/20/22 22:05 Sodium Chloride 0.9% 10 Ml Flush Syringe IV 10 ml BID FRANCESCA Administration Nutrition/Malnutrition Assess - Dietary Evaluation Nutrition/Malnutrition Findings: Nutrition Notes Start: 04/01/22 10:53 Freq: Status: Active Protocol: Document 04/15/22 12:27 SIM (Rec: 04/15/22 12:39 SIM [id number]) Nutrition Notes Initial or Follow up Reassessment Current Diagnosis Acute Kidney Injury,Sepsis, Heart Failure,Respiratory Failure Other Pertinent Diagnosis Pneu, UTI, acute metabolic encephalopathy, anemia Current Diet TF - Nepro at 45ml/hr Labs/Tests Na 136 K 3.5 BUN 45 Cr 6.1 Pertinent Medications 40mEq KCl Height 5 ft 9 in Weight 77 kg Carmichaels Body Weight (kg) 72.72 BMI 25.0 Weight Status Appropriate Subjective/Other Information Pt tolerating TF at goal rate. Per [employer] evaluation on 04/14, PEG tube recommended. HD initiated on 04/13. New stage 2 sacral wound and (L) posterior buttocks wound reported 04/13. Percent of energy/protein needs met: 105% energy 95% pro Burn Absent Trauma Absent #2 Nutrition Diagnosis Altered nutrition-related laboratory values Diagnosis Progress(for reassessment Continues documentation) #1 Nutrition Diagnosis Inadequate oral intake Diagnosis Progress(for reassessment Continues documentation) Is patient on ventilator? No Is Patient Ambulatory and/or Out of Bed No REE-([facility]-confined to bed) 3510.860 Calculation Used for Recommendations [facility] Additional Notes Pro needs >1.2g/kg: >92g/day Fluid needs 1-1.5L/day Nutrition Intervention Nutrition Support: Continue Nepro at 45ml/hr with 200ml water flush q4h. Kcal 1,944 Protein (gm) 87 Carbohydrates (gm) 174 Fat (gm) 104 Fluid (mL) 785 Fiber (gm) 14 Goal #1 TF tolerance Goal #2 TF to provide at least 75% energy and pro needs Follow-Up By: 04/22/22 Additional Comments F/U: stable TF, wt
[2022-04-20] MEDS: SENNOSIDES/DOCUSATE SODIUM 8.6/50 MG TAB FEEDTUBE SCH ×2 (11:38→22:04)
--- NOTE | 2022-04-20 11:41 | Progress Note ---
Assessment and Plan Patient is a 67-year-old male with a past medical history of cardiomyopathy (EF 25 to 30%), A. fib, CKD, hypertension, and dementia who was brought to the ED by EMS for fever and SOB x3 days. S/p cardiac arrest Sepsis PNA VRE-ID following NSTEMI suspect type II ARF on HD-nephrology following Cardiomyopathy A. fib Hypertension GI bleed Anemia Vascular dementia Echo 03/09/2022-EF 25 to 30%. Severe global hypokinesis of left ventricle. Moderate concentric LVH. Mild diastolic dysfunction is present impaired relaxation pattern. Moderate aortic regurgitation. No pericardial effusion Echo 04/18/2022-EF 15 to 20% no LV thrombus noted on the study. Right ventricle systolic function is normal. Mild aortic regurgitation. Trace to mild tricuspid regurgitation. No pulmonic valvular regurgitation Plan: Telemetry reviewed : A. fib 100s to low 110s with PVCs Continue Amio 200mg PO BID, aspirin, and statin Will hold GDMT due to soft BP requiring pressors. Patient not a candidate for anticoagulation due to anemia with positive occult blood Echo results noted above Overall poor prognosis Had telephone conversation with patient's brothers Michael and Alfonzo Johnson this afternoon regarding patient's prognosis. Patient's brothers were in agreement to have patient go to inpatient hospice care. Case management will set up an appointment to finalize decision with family Patient seen in conjunction with Dr. Anaya who agrees with this plan of care - Patient Problems (1) Sepsis Current Visit: Yes Status: Acute (2) MARIE (acute kidney injury) Current Visit: No Status: Acute (3) Anemia Current Visit: Yes Status: Acute (4) CKD (chronic kidney disease) Current Visit: No Status: Acute (5) Cardiomyopathy Current Visit: Yes Status: Chronic (6) Elevated troponin Current Visit: No Status: Acute (7) PNA (pneumonia) Current Visit: Yes Status: Acute Qualifiers: Pneumonia type: aspiration pneumonia (8) Vascular dementia Current Visit: Yes Status: Chronic Qualifiers: Dementia behavioral disturbance: with behavioral disturbance Qualified Code(s): F01.51 - Vascular dementia with behavioral disturbance Subjective Date of service: 04/20/22 Principal diagnosis: anemia Interval history: Patient remains intubated Patient A. fib 100s with PVCs on monitor Objective Vital Signs Temp Pulse Pulse Pulse Resp Resp BP 04/20/22 11:00 111 H 15 92/70 04/20/22 10:45 98 H 15 101/68 04/20/22 10:30 104 H 13 97/65 04/20/22 10:15 101 H 16 89/65 04/20/22 10:00 111 H 15 91/60 04/20/22 09:45 116 H 13 96/60 04/20/22 09:30 76 15 102/61 04/20/22 09:15 75 14 107/57 04/20/22 09:00 79 14 100/70 04/20/22 08:46 81 14 108/67 04/20/22 08:30 79 79 16 16 111/60 04/20/22 08:21 97.6 F 04/20/22 08:16 86 16 95/59 04/20/22 08:11 80 16 04/20/22 08:10 77 95/59 04/20/22 08:00 80 16 99/56 04/20/22 07:46 79 16 107/62 04/20/22 07:30 76 16 99/56 04/20/22 07:16 81 16 92/65 04/20/22 07:00 87 16 102/73 04/20/22 06:46 108 H 18 97/68 04/20/22 06:30 106 H 16 93/59 04/20/22 06:16 122 H 17 102/47 04/20/22 06:07 111 H 04/20/22 06:00 112 H 18 87/58 04/20/22 05:46 119 H 16 90/04/20/22 05:30 116 H 17 90/56 04/20/22 05:16 129 H 18 100/69 04/20/22 05:14 04/20/22 05:00 121 H 28 H 103/72 04/20/22 04:46 111 H 19 97/67 04/20/22 04:30 117 H 19 106/61 04/20/22 04:28 124 H 127 H 20 102/70 04/20/22 04:16 133 H 24 107/65 04/20/22 04:00 98.8 F 134 H 24 117/76 04/20/22 03:46 81 16 101/58 04/20/22 03:35 04/20/22 03:30 78 18 106/67 04/20/22 03:16 73 15 104/68 04/20/22 03:00 101 H 16 98/67 04/20/22 02:46 114 H 18 93/63 04/20/22 02:30 106 H 22 107/67 04/20/22 02:16 97 H 25 H 99/54 04/20/22 02:00 75 16 94/67 04/20/22 01:46 76 16 88/58 04/20/22 01:30 78 17 96/64 04/20/22 01:16 79 16 99/65 04/20/22 01:00 78 16 97/56 04/20/22 00:46 80 16 93/60 04/20/22 00:30 81 22 99/61 04/20/22 00:16 83 18 101/61 04/20/22 00:00 98.6 F 83 18 103/65 04/19/22 23:51 81 85 20 93/61 04/19/22 23:46 80 18 102/63 04/19/22 23:30 80 18 96/57 04/19/22 23:16 80 18 105/66 04/19/22 23:12 79 17 105/66 04/19/22 23:11 04/19/22 23:00 80 18 105/67 04/19/22 22:46 79 18 97/65 04/19/22 22:30 80 18 103/63 04/19/22 22:16 80 18 101/52 04/19/22 22:00 79 18 113/73 04/19/22 21:46 112 H 19 119/73 04/19/22 21:30 123 H 18 109/67 04/19/22 21:16 82 18 116/73 04/19/22 21:00 82 20 117/72 04/19/22 20:46 83 19 116/72 04/19/22 20:30 81 19 118/74 04/19/22 20:16 82 19 120/74 04/19/22 20:00 99.8 F H 82 18 116/73 04/19/22 19:58 81 82 6 L 20 116/73 04/19/22 19:46 81 20 112/71 04/19/22 19:30 81 19 114/70 04/19/22 19:27 04/19/22 19:16 78 19 119/73 04/19/22 19:00 82 19 124/74 04/19/22 18:46 80 20 123/72 04/19/22 18:30 82 21 125/73 04/19/22 18:20 80 21 123/75 04/19/22 18:10 84 21 99/72 04/19/22 18:00 112 H 26 H 99/72 04/19/22 17:50 123 H 22 113/72 04/19/22 17:40 104 H 22 92/69 04/19/22 17:30 109 H 22 92/69 04/19/22 17:20 121 H 20 114/68 04/19/22 17:10 115 H 22 114/58 04/19/22 17:00 129 H 23 114/68 04/19/22 16:50 97 H 21 114/68 04/19/22 16:40 82 22 111/69 04/19/22 16:35 112 H 18 04/19/22 16:30 82 22 116/70 04/19/22 16:20 126 H 23 97/73 04/19/22 16:16 125 H 103/64 04/19/22 16:10 119 H 23 103/64 04/19/22 16:05 81 81 22 04/19/22 16:00 98 F 82 22 105/63 04/19/22 15:50 122 H 22 97/73 04/19/22 15:40 125 H 23 96/72 04/19/22 15:30 112 H 25 H 104/70 04/19/22 15:20 129 H 25 H 120/78 04/19/22 15:10 127 H 21 120/78 04/19/22 15:00 119 H 24 121/64 04/19/22 14:50 110 H 24 121/64 04/19/22 14:40 84 23 120/72 04/19/22 14:30 83 24 119/73 04/19/22 14:20 83 22 121/76 04/19/22 14:10 130 H 24 107/77 04/19/22 14:00 136 H 25 H 115/66 04/19/22 13:50 131 H 24 125/75 04/19/22 13:40 84 23 125/75 04/19/22 13:30 85 23 121/73 04/19/22 13:20 87 24 126/75 04/19/22 13:10 126/75 04/19/22 13:00 84 84 23 125/75 04/19/22 12:53 89 129/72 04/19/22 12:00 97.2 F L 04/19/22 11:40 97.2 F L 119 H 121/64 Pulse Ox 04/20/22 11:00 100 04/20/22 10:45 100 04/20/22 10:30 100 04/20/22 10:15 100 04/20/22 10:00 99 04/20/22 09:45 100 04/20/22 09:30 100 04/20/22 09:15 100 04/20/22 09:00 100 04/20/22 08:46 100 04/20/22 08:30 100 04/20/22 08:21 04/20/22 08:16 100 04/20/22 08:11 100 04/20/22 08:10 100 04/20/22 08:00 100 04/20/22 07:46 100 04/20/22 07:30 99 04/20/22 07:16 100 04/20/22 07:00 99 04/20/22 06:46 100 04/20/22 06:30 100 04/20/22 06:16 100 04/20/22 06:07 04/20/22 06:00 100 04/20/22 05:46 100 04/20/22 05:30 100 04/20/22 05:16 100 04/20/22 05:14 100 04/20/22 05:00 99 04/20/22 04:46 100 04/20/22 04:30 100 04/20/22 04:28 100 04/20/22 04:16 100 04/20/22 04:00 100 04/20/22 03:46 100 04/20/22 03:35 100 04/20/22 03:30 100 04/20/22 03:16 100 04/20/22 03:00 100 04/20/22 02:46 100 04/20/22 02:30 100 04/20/22 02:16 100 04/20/22 02:00 100 04/20/22 01:46 100 04/20/22 01:30 100 04/20/22 01:16 100 04/20/22 01:00 100 04/20/22 00:46 100 04/20/22 00:30 100 04/20/22 00:16 100 04/20/22 00:00 100 04/19/22 23:51 100 04/19/22 23:46 100 04/19/22 23:30 100 04/19/22 23:16 100 04/19/22 23:12 100 04/19/22 23:11 100 04/19/22 23:00 04/19/22 22:46 100 04/19/22 22:30 100 04/19/22 22:16 100 04/19/22 22:00 100 04/19/22 21:46 100 04/19/22 21:30 100 04/19/22 21:16 100 04/19/22 21:00 04/19/22 20:46 100 04/19/22 20:30 04/19/22 20:16 100 04/19/22 20:00 04/19/22 19:58 100 04/19/22 19:46 100 04/19/22 19:30 04/19/22 19:27 100 04/19/22 19:16 100 04/19/22 19:00 100 04/19/22 18:46 100 04/19/22 18:30 04/19/22 18:20 100 04/19/22 18:10 100 04/19/22 18:00 100 04/19/22 17:50 100 04/19/22 17:40 100 04/19/22 17:30 100 04/19/22 17:20 100 04/19/22 17:10 100 04/19/22 17:00 04/19/22 16:50 100 04/19/22 16:40 04/19/22 16:35 04/19/22 16:30 100 04/19/22 16:20 100 04/19/22 16:16 100 04/19/22 16:10 100 04/19/22 16:05 100 04/19/22 16:00 100 04/19/22 15:50 100 04/19/22 15:40 100 04/19/22 15:30 100 04/19/22 15:20 100 04/19/22 15:10 100 04/19/22 15:00 100 04/19/22 14:50 100 04/19/22 14:40 04/19/22 14:30 04/19/22 14:20 04/19/22 14:10 04/19/22 14:00 04/19/22 13:50 04/19/22 13:40 04/19/22 13:30 04/19/22 13:20 04/19/22 13:10 04/19/22 13:00 04/19/22 12:53 04/19/22 12:00 04/19/22 11:40 100 - Physical Examination General: Other (Intubated) HEENT: Positive: Mucus Membranes Dry Neck: Positive: neck supple, trachea midline Cardiac: Positive: irregularly irregular Lungs: Positive: Ventilated Respirations Neuro: Positive: Other (Unable to assess) Abdomen: Positive: Soft, Active Bowel Sounds. Negative: Tender Skin: Negative: Rash Musculoskeletal: No Fluid Collection Extremities: Present: upper extr. pulses, edema (Upper right extra) - Labs and Meds Cardiac Enzymes 04/20/22 Range/Units 04:00 AST 118 H (5-40) units/L CBC 04/20/22 Range/Units 10:40 WBC 3.1 L (4.5-11.0) K/mm3 RBC 2.44 L (3.65-5.03) M/mm3 Hgb 6.7 L (11.8-15.2) gm/dl Hct 20.3 L D (35.5-45.6) % Plt Count 28 L (140-440) K/mm3 Comprehensive Metabolic Panel 04/20/22 Range/Units 04:00 Sodium 141 D (137-145) mmol/L Potassium 5.7 H (3.6-5.0) mmol/L Chloride 101.3 (98-107) mmol/L Carbon Dioxide 19 L D (22-30) mmol/L BUN 99 H (9-20) mg/dL Creatinine 8.0 H (0.8-1.3) mg/dL Glucose 95 (75-100) mg/dL Calcium 6.9 L D (8.4-10.2) mg/dL AST 118 H (5-40) units/L ALT 67 H (7-56) units/L Alkaline Phosphatase 108 (35-129) units/L Total Protein 6.2 L (6.3-8.2) g/dL Albumin 2.0 L (3.9-5) g/dL - Imaging and Cardiology Echo: report reviewed - Telemetry EKG Rhythm: Atrial Fibrillation - EKG Sinus rhythms and dysrhythmias: sinus rhythm Supraventricular dysrhythmia: atrial fibrillation Chamber hypertrophy or enlargement: left ventricular hypertro
--- NOTE | 2022-04-20 12:40 | Progress Note ---
Assessment and Plan 67 y/o male with acute respiratory failure secondary to what is most likely a mucous plug, now with cardiac arrest, cardiovascular collapse and acute respiratory failure requiring intubation. 04/20/22: Wean fiO2 down given good PaO2. Ok with starting to wean peep. Per cards, patient's heart is not going to improve and he is not a candidate for any further therapy. I have asked them to speak with family about this issue. ON rounds, per report the family wanted 24-48 hours to see if the patient would improve. Overall he hasn't. Cards is suggesting hospice given his cardiac function. Await discussion about this then will reach out to family. No evidence of bleeding but hgb is dropping. Less than 7 now but barely. Await fam lucian decision about hospice prior to transfusion. Overall prognosis is very poor given multisystem organ failure. 04/19/22: CXR is now clear. Down to 50%. Wean pressors for MAPS >65. 1. ordered CTP with nebs multiple times daily 2. NT suction at least qshift 3. Vest therapy if available 4. Suggest putting left lung down until clear, nursing can wedge patient to that side 5. Guarded prognosis. Subjective Date of service: 04/20/22 Principal diagnosis: anemia Interval history: No acute events. Still on 2 pressors. HgB is 6 now. No evidence of bleeding. Echo shows EF around 15%. Eyes open but follows no commands. Not a candidate for dialysis today. Spoke with renal about this. Objective Vital Signs - 12hr 04/20/22 04/20/22 04/20/22 00:46 01:00 01:16 Temperature Pulse Rate 80 78 79 Pulse Rate [ Anterior Bilateral Throughout] Pulse Rate [ From Monitor] Respiratory 16 16 16 Rate Respiratory Rate [Anterior Bilateral Throughout] Blood Pressure 93/60 97/56 99/65 O2 Sat by Pulse 100 100 100 Oximetry 04/20/22 04/20/22 04/20/22 01:30 01:46 02:00 Temperature Pulse Rate 78 76 75 Pulse Rate [ Anterior Bilateral Throughout] Pulse Rate [ From Monitor] Respiratory 17 16 16 Rate Respiratory Rate [Anterior Bilateral Throughout] Blood Pressure 96/64 88/58 94/67 O2 Sat by Pulse 100 100 100 Oximetry 04/20/22 04/20/22 04/20/22 02:16 02:30 02:46 Temperature Pulse Rate 97 H 106 H 114 H Pulse Rate [ Anterior Bilateral Throughout] Pulse Rate [ From Monitor] Respiratory 25 H 22 18 Rate Respiratory Rate [Anterior Bilateral Throughout] Blood Pressure 99/54 107/67 93/63 O2 Sat by Pulse 100 100 100 Oximetry 04/20/22 04/20/22 04/20/22 03:00 03:16 03:30 Temperature Pulse Rate 101 H 73 78 Pulse Rate [ Anterior Bilateral Throughout] Pulse Rate [ From Monitor] Respiratory 16 15 18 Rate Respiratory Rate [Anterior Bilateral Throughout] Blood Pressure 98/67 104/68 106/67 O2 Sat by Pulse 100 100 100 Oximetry 04/20/22 04/20/22 04/20/22 03:35 03:46 04:00 Temperature 98.8 F Pulse Rate 81 134 H Pulse Rate [ Anterior Bilateral Throughout] Pulse Rate [ From Monitor] Respiratory 16 24 Rate Respiratory Rate [Anterior Bilateral Throughout] Blood Pressure 101/58 117/76 O2 Sat by Pulse 100 100 100 Oximetry 04/20/22 04/20/22 04/20/22 04:16 04:28 04:30 Temperature Pulse Rate 133 H 124 H 117 H Pulse Rate [ 127 H Anterior Bilateral Throughout] Pulse Rate [ From Monitor] Respiratory 24 19 Rate Respiratory 20 Rate [Anterior Bilateral Throughout] Blood Pressure 107/65 102/70 106/61 O2 Sat by Pulse 100 100 100 Oximetry 04/20/22 04/20/22 04/20/22 04:46 05:00 05:14 Temperature Pulse Rate 111 H 121 H Pulse Rate [ Anterior Bilateral Throughout] Pulse Rate [ From Monitor] Respiratory 19 28 H Rate Respiratory Rate [Anterior Bilateral Throughout] Blood Pressure 97/67 103/72 O2 Sat by Pulse 100 99 100 Oximetry 04/20/22 04/20/22 04/20/22 05:16 05:30 05:46 Temperature Pulse Rate 129 H 116 H 119 H Pulse Rate [ Anterior Bilateral Throughout] Pulse Rate [ From Monitor] Respiratory 18 17 16 Rate Respiratory Rate [Anterior Bilateral Throughout] Blood Pressure 100/69 90/56 90/56 O2 Sat by Pulse 100 100 100 Oximetry 04/20/22 04/20/22 04/20/22 06:00 06:07 06:16 Temperature Pulse Rate 112 H 111 H 122 H Pulse Rate [ Anterior Bilateral Throughout] Pulse Rate [ From Monitor] Respiratory 18 17 Rate Respiratory Rate [Anterior Bilateral Throughout] Blood Pressure 87/58 102/47 O2 Sat by Pulse 100 100 Oximetry 04/20/22 04/20/22 04/20/22 06:30 06:46 07:00 Temperature Pulse Rate 106 H 108 H 87 Pulse Rate [ Anterior Bilateral Throughout] Pulse Rate [ From Monitor] Respiratory 16 18 16 Rate Respiratory Rate [Anterior Bilateral Throughout] Blood Pressure 93/59 97/68 102/73 O2 Sat by Pulse 100 100 99 Oximetry 04/20/22 04/20/22 04/20/22 07:16 07:30 07:46 Temperature Pulse Rate 81 76 79 Pulse Rate [ Anterior Bilateral Throughout] Pulse Rate [ From Monitor] Respiratory 16 16 16 Rate Respiratory Rate [Anterior Bilateral Throughout] Blood Pressure 92/65 99/56 107/62 O2 Sat by Pulse 100 99 100 Oximetry 04/20/22 04/20/22 04/20/22 08:00 08:10 08:11 Temperature Pulse Rate 80 77 Pulse Rate [ Anterior Bilateral Throughout] Pulse Rate [ 80 From Monitor] Respiratory 16 16 Rate Respiratory Rate [Anterior Bilateral Throughout] Blood Pressure 99/56 95/59 O2 Sat by Pulse 100 100 100 Oximetry 04/20/22 04/20/22 04/20/22 08:16 08:21 08:30 Temperature 97.6 F Pulse Rate 86 79 Pulse Rate [ 79 Anterior Bilateral Throughout] Pulse Rate [ From Monitor] Respiratory 16 16 Rate Respiratory 16 Rate [Anterior Bilateral Throughout] Blood Pressure 95/59 111/60 O2 Sat by Pulse 100 100 Oximetry 04/20/22 04/20/22 04/20/22 08:46 09:00 09:15 Temperature Pulse Rate 81 79 75 Pulse Rate [ Anterior Bilateral Throughout] Pulse Rate [ From Monitor] Respiratory 14 14 14 Rate Respiratory Rate [Anterior Bilateral Throughout] Blood Pressure 108/67 100/70 107/57 O2 Sat by Pulse 100 100 100 Oximetry 04/20/22 04/20/22 04/20/22 09:30 09:45 10:00 Temperature Pulse Rate 76 116 H 111 H Pulse Rate [ Anterior Bilateral Throughout] Pulse Rate [ From Monitor] Respiratory 15 13 15 Rate Respiratory Rate [Anterior Bilateral Throughout] Blood Pressure 102/61 96/60 91/60 O2 Sat by Pulse 100 100 99 Oximetry 04/20/22 04/20/22 04/20/22 10:15 10:30 10:45 Temperature Pulse Rate 101 H 104 H 98 H Pulse Rate [ Anterior Bilateral Throughout] Pulse Rate [ From Monitor] Respiratory 16 13 15 Rate Respiratory Rate [Anterior Bilateral Throughout] Blood Pressure 89/65 97/65 101/68 O2 Sat by Pulse 100 100 100 Oximetry 04/20/22 04/20/22 04/20/22 11:00 11:15 11:30 Temperature Pulse Rate 111 H 99 H 99 H Pulse Rate [ Anterior Bilateral Throughout] Pulse Rate [ From Monitor] Respiratory 15 10 L 14 Rate Respiratory Rate [Anterior Bilateral Throughout] Blood Pressure 92/70 85/53 89/63 O2 Sat by Pulse 100 100 100 Oximetry 04/20/22 04/20/22 04/20/22 11:45 12:01 12:15 Temperature Pulse Rate 112 H 80 80 Pulse Rate [ Anterior Bilateral Throughout] Pulse Rate [ From Monitor] Respiratory 11 L 17 10 L Rate Respiratory Rate [Anterior Bilateral Throughout] Blood Pressure 98/66 94/64 97/64 O2 Sat by Pulse 100 100 100 Oximetry 04/20/22 04/20/22 12:20 12:23 Temperature 97.7 F Pulse Rate Pulse Rate [ Anterior Bilateral Throughout] Pulse Rate [ 82 From Monitor] Respiratory 12 Rate Respiratory Rate [Anterior Bilateral Throughout] Blood Pressure O2 Sat by Pulse 100 Oximetry CBC and BMP: 04/20/22 10:40 04/20/22 04:00 ABG, PT/INR, D-dimer: ABG ABG pH 7.313 pH Units (7.350-7.450) L 04/20/22 04:30 ABG pCO2 46.8 mm Hg 04/20/22 04:30 ABG pO2 171.4 mm Hg (80.0-90.0) H 04/20/22 04:30 ABG O2 Saturation 99.0 % (95.0-99.0) 04/20/22 04:30 Abnormal lab findings: Abnormal Labs 03/31/22 03/31/22 04/01/22 08:00 08:00 08:00 WBC 15.6 H RBC 3.46 L Hgb 8.8 L Hct 28.6 L MCV 83 L MCH 26 L MCHC 31 L RDW 18.7 H Plt Count Lymph % (Auto) 4.2 L [place] % (Auto) Eos % (Auto) Lymph # (Auto) 0.7 L [place] # (Auto) 1.0 H Eos # (Auto) 0.5 H Seg Neutrophils % 85.9 H Seg Neuts % (Manual) Lymphocytes % (Manual) Eosinophils % (Manual) Seg Neutrophils # 13.4 H Seg Neutrophils # Man Lymphocytes # (Manual) ABG pH ABG pO2 ABG HCO3 ABG O2 Saturation ABG Base Excess ABG Hemoglobin Oxyhemoglobin Sodium 146 H Potassium Chloride 111.3 H 114.8 H Carbon Dioxide 11 L 17 L BUN 22 H Creatinine 2.3 H 2.0 H Glucose 55 L POC Glucose Lactic Acid Calcium 8.3 L Phosphorus AST ALT Troponin T 0.138 H* NT-Pro-B Natriuret Pep 18266 H Total Protein Albumin 2.8 L HDL Cholesterol 38 L Urine Creatinine Crossmatch 04/01/22 04/02/22 04/02/22 08:54 04:40 04:40 WBC 12.6 H RBC 2.81 L 2.59 L Hgb 7.4 L 6.8 L Hct 22.6 L D 20.6 L MCV 81 L 80 L MCH 26 L 26 L MCHC RDW 19.1 H 19.0 H Plt Count Lymph % (Auto) [place] % (Auto) Eos % (Auto) Lymph # (Auto) [place] # (Auto) Eos # (Auto) Seg Neutrophils % Seg Neuts % (Manual) Lymphocytes % (Manual) Eosinophils % (Manual) Seg Neutrophils # Seg Neutrophils # Man Lymphocytes # (Manual) ABG pH ABG pO2 ABG HCO3 ABG O2 Saturation ABG Base Excess ABG Hemoglobin Oxyhemoglobin Sodium Potassium Chloride 113.9 H Carbon Dioxide 17 L BUN 21 H Creatinine 2.2 H Glucose POC Glucose Lactic Acid Calcium 8.3 L Phosphorus AST ALT Troponin T NT-Pro-B Natriuret Pep Total Protein Albumin HDL Cholesterol Urine Creatinine Crossmatch 04/02/22 04/03/22 04/03/22 11:45 05:05 05:05 WBC RBC Hgb 7.2 L Hct 22.3 L MCV MCH MCHC RDW Plt Count Lymph % (Auto) [place] % (Auto) Eos % (Auto) Lymph # (Auto) [place] # (Auto) Eos # (Auto) Seg Neutrophils % Seg Neuts % (Manual) Lymphocytes % (Manual) Eosinophils % (Manual) Seg Neutrophils # Seg Neutrophils # Man Lymphocytes # (Manual) ABG pH ABG pO2 ABG HCO3 ABG O2 Saturation ABG Base Excess ABG Hemoglobin Oxyhemoglobin Sodium Potassium Chloride Carbon Dioxide BUN Creatinine 2.0 H Glucose POC Glucose Lactic Acid Calcium Phosphorus AST ALT Troponin T NT-Pro-B Natriuret Pep Total Protein Albumin HDL Cholesterol Urine Creatinine Crossmatch See Detail 04/03/22 04/04/22 04/04/22 12:29 11:38 11:38 WBC RBC Hgb 7.4 L Hct 23.3 L MCV MCH MCHC RDW Plt Count Lymph % (Auto) [place] % (Auto) Eos % (Auto) Lymph # (Auto) [place] # (Auto) Eos # (Auto) Seg Neutrophils % Seg Neuts % (Manual) Lymphocytes % (Manual) Eosinophils % (Manual) Seg Neutrophils # Seg Neutrophils # Man Lymphocytes # (Manual) ABG pH ABG pO2 ABG HCO3 ABG O2 Saturation ABG Base Excess ABG Hemoglobin Oxyhemoglobin Sodium Potassium Chloride 115.6 H Carbon Dioxide 17 L BUN 24 H Creatinine 2.3 H Glucose 67 L POC Glucose Lactic Acid Calcium Phosphorus AST ALT Troponin T 0.135 H* NT-Pro-B Natriuret Pep Total Protein Albumin HDL Cholesterol Urine Creatinine Crossmatch 04/05/22 04/05/22 04/05/22 05:06 05:06 18:16 WBC RBC 2.72 L Hgb 7.3 L Hct 22.4 L MCV 82 L MCH 27 L MCHC RDW 20.5 H Plt Count Lymph % (Auto) 13.2 L [place] % (Auto) 10.1 H Eos % (Auto) 6.6 H Lymph # (Auto) 1.1 L [place] # (Auto) Eos # (Auto) 0.5 H Seg Neutrophils % Seg Neuts % (Manual) 93.0 H Lymphocytes % (Manual) 2.0 L Eosinophils % (Manual) Seg Neutrophils # Seg Neutrophils # Man Lymphocytes # (Manual) 0.2 L ABG pH ABG pO2 ABG HCO3 ABG O2 Saturation ABG Base Excess ABG Hemoglobin Oxyhemoglobin Sodium Potassium Chloride 118.6 H Carbon Dioxide 17 L BUN 26 H Creatinine 2.3 H Glucose POC Glucose Lactic Acid Calcium Phosphorus AST ALT Troponin T NT-Pro-B Natriuret Pep Total Protein 5.8 L Albumin 2.0 L HDL Cholesterol Urine Creatinine 82.0 H Crossmatch 04/05/22 04/06/22 04/07/22 22:03 05:46 08:20 WBC RBC Hgb Hct MCV MCH MCHC RDW Plt Count Lymph % (Auto) [place] % (Auto) Eos % (Auto) Lymph # (Auto) [place] # (Auto) Eos # (Auto) Seg Neutrophils % Seg Neuts % (Manual) Lymphocytes % (Manual) Eosinophils % (Manual) Seg Neutrophils # Seg Neutrophils # Man Lymphocytes # (Manual) ABG pH ABG pO2 ABG HCO3 ABG O2 Saturation ABG Base Excess ABG Hemoglobin Oxyhemoglobin Sodium 149 H Potassium Chloride 117.4 H 118.1 H Carbon Dioxide 16 L 19 L BUN 28 H 30 H Creatinine 2.9 H 3.2 H Glucose 72 L POC Glucose 108 H Lactic Acid Calcium Phosphorus AST ALT Troponin T NT-Pro-B Natriuret Pep Total Protein Albumin HDL Cholesterol Urine Creatinine Crossmatch 04/08/22 04/08/22 04/09/22 04:47 21:43 04:30 WBC RBC 2.82 L Hgb 7.4 L Hct 23.0 L MCV 82 L MCH 26 L MCHC RDW 20.8 H Plt Count Lymph % (Auto) [place] % (Auto) Eos % (Auto) 9.0 H Lymph # (Auto) [place] # (Auto) Eos # (Auto) 0.6 H Seg Neutrophils % Seg Neuts % (Manual) Lymphocytes % (Manual) Eosinophils % (Manual) Seg Neutrophils # Seg Neutrophils # Man Lymphocytes # (Manual) ABG pH ABG pO2 ABG HCO3 ABG O2 Saturation ABG Base Excess ABG Hemoglobin Oxyhemoglobin Sodium 148 H Potassium Chloride 118.5 H Carbon Dioxide 20 L BUN 32 H Creatinine 3.2 H Glucose POC Glucose 136 H Lactic Acid Calcium Phosphorus AST ALT Troponin T NT-Pro-B Natriuret Pep Total Protein Albumin HDL Cholesterol Urine Creatinine Crossmatch 04/09/22 04/09/22 04/09/22 04:30 11:16 22:10 WBC RBC Hgb Hct MCV MCH MCHC RDW Plt Count Lymph % (Auto) [place] % (Auto) Eos % (Auto) Lymph # (Auto) [place] # (Auto) Eos # (Auto) Seg Neutrophils % Seg Neuts % (Manual) Lymphocytes % (Manual) Eosinophils % (Manual) Seg Neutrophils # Seg Neutrophils # Man Lymphocytes # (Manual) ABG pH ABG pO2 ABG HCO3 ABG O2 Saturation ABG Base Excess ABG Hemoglobin Oxyhemoglobin Sodium 149 H Potassium Chloride 119.2 H Carbon Dioxide 20 L BUN 35 H Creatinine 4.1 H Glucose POC Glucose 120 H 111 H Lactic Acid Calcium Phosphorus AST ALT Troponin T NT-Pro-B Natriuret Pep Total Protein Albumin HDL Cholesterol Urine Creatinine Crossmatch 04/10/22 04/10/22 04/11/22 04:19 12:06 13:55 WBC RBC 3.05 L Hgb 7.8 L Hct 24.7 L MCV 81 L MCH 26 L MCHC RDW 20.9 H Plt Count Lymph % (Auto) 12.1 L [place] % (Auto) Eos % (Auto) 6.1 H Lymph # (Auto) 0.7 L [place] # (Auto) Eos # (Auto) Seg Neutrophils % 79.1 H Seg Neuts % (Manual) Lymphocytes % (Manual) Eosinophils % (Manual) Seg Neutrophils # Seg Neutrophils # Man Lymphocytes # (Manual) ABG pH ABG pO2 ABG HCO3 ABG O2 Saturation ABG Base Excess ABG Hemoglobin Oxyhemoglobin Sodium Potassium Chloride 115.5 H Carbon Dioxide 20 L BUN 38 H Creatinine 4.0 H Glucose 101 H POC Glucose 113 H Lactic Acid Calcium Phosphorus AST ALT Troponin T NT-Pro-B Natriuret Pep Total Protein Albumin HDL Cholesterol Urine Creatinine Crossmatch 04/11/22 04/12/22 04/12/22 13:55 04:40 04:40 WBC RBC 2.75 L Hgb 6.9 L Hct 22.1 L MCV 80 L MCH 25 L MCHC 31 L RDW 20.5 H Plt Count Lymph % (Auto) 11.3 L [place] % (Auto) Eos % (Auto) 4.8 H Lymph # (Auto) 0.9 L [place] # (Auto) Eos # (Auto) Seg Neutrophils % 81.3 H Seg Neuts % (Manual) Lymphocytes % (Manual) Eosinophils % (Manual) Seg Neutrophils # Seg Neutrophils # Man Lymphocytes # (Manual) ABG pH ABG pO2 ABG HCO3 ABG O2 Saturation ABG Base Excess ABG Hemoglobin Oxyhemoglobin Sodium Potassium 5.8 H 5.4 H Chloride 110.9 H 111.6 H Carbon Dioxide BUN 48 H 51 H Creatinine 5.3 H 5.8 H Glucose 110 H POC Glucose Lactic Acid Calcium Phosphorus AST ALT Troponin T NT-Pro-B Natriuret Pep Total Protein Albumin HDL Cholesterol Urine Creatinine Crossmatch 04/12/22 04/12/22 04/13/22 15:12 23:27 06:02 WBC RBC Hgb Hct MCV MCH MCHC RDW Plt Count Lymph % (Auto) [place] % (Auto) Eos % (Auto) Lymph # (Auto) [place] # (Auto) Eos # (Auto) Seg Neutrophils % Seg Neuts % (Manual) Lymphocytes % (Manual) Eosinophils % (Manual) Seg Neutrophils # Seg Neutrophils # Man Lymphocytes # (Manual) ABG pH ABG pO2 ABG HCO3 ABG O2 Saturation ABG Base Excess ABG Hemoglobin Oxyhemoglobin Sodium Potassium Chloride 110.6 H Carbon Dioxide BUN 54 H Creatinine 5.9 H Glucose POC Glucose 109 H 111 H Lactic Acid Calcium Phosphorus AST ALT Troponin T NT-Pro-B Natriuret Pep Total Protein Albumin HDL Cholesterol Urine Creatinine Crossmatch 04/13/22 04/13/22 04/13/22 14:19 14:19 23:50 WBC 4.4 L RBC 2.75 L Hgb 7.0 L Hct 22.4 L MCV 81 L MCH 25 L MCHC 31 L RDW 20.9 H Plt Count Lymph % (Auto) [place] % (Auto) Eos % (Auto) 10.7 H Lymph # (Auto) 1.0 L [place] # (Auto) Eos # (Auto) 0.5 H Seg Neutrophils % Seg Neuts % (Manual) Lymphocytes % (Manual) Eosinophils % (Manual) Seg Neutrophils # Seg Neutrophils # Man Lymphocytes # (Manual) ABG pH ABG pO2 ABG HCO3 ABG O2 Saturation ABG Base Excess ABG Hemoglobin Oxyhemoglobin Sodium 146 H Potassium Chloride 111.2 H Carbon Dioxide BUN 62 H Creatinine 6.6 H Glucose POC Glucose 118 H Lactic Acid Calcium Phosphorus AST ALT Troponin T NT-Pro-B Natriuret Pep Total Protein Albumin HDL Cholesterol Urine Creatinine Crossmatch 04/14/22 04/14/22 04/14/22 04:50 04:50 08:44 WBC 3.5 L RBC 2.70 L Hgb 6.6 L Hct 21.6 L MCV 80 L MCH 25 L MCHC 31 L RDW 21.2 H Plt Count Lymph % (Auto) [place] % (Auto) Eos % (Auto) Lymph # (Auto) [place] # (Auto) Eos # (Auto) Seg Neutrophils % Seg Neuts % (Manual) 73.0 H Lymphocytes % (Manual) Eosinophils % (Manual) 5.0 H Seg Neutrophils # Seg Neutrophils # Man Lymphocytes # (Manual) 0.7 L ABG pH ABG pO2 ABG HCO3 ABG O2 Saturation ABG Base Excess ABG Hemoglobin Oxyhemoglobin Sodium Potassium Chloride Carbon Dioxide BUN 34 H Creatinine 4.3 H Glucose 107 H POC Glucose Lactic Acid Calcium 7.8 L Phosphorus AST ALT Troponin T NT-Pro-B Natriuret Pep Total Protein Albumin HDL Cholesterol Urine Creatinine Crossmatch See Detail 04/15/22 04/15/22 04/15/22 09:41 09:41 22:22 WBC RBC 3.03 L Hgb 8.0 L Hct 24.8 L MCV 82 L MCH 26 L MCHC RDW 19.8 H Plt Count Lymph % (Auto) 11.8 L [place] % (Auto) Eos % (Auto) 5.4 H Lymph # (Auto) 0.9 L [place] # (Auto) Eos # (Auto) Seg Neutrophils % 80.1 H Seg Neuts % (Manual) Lymphocytes % (Manual) Eosinophils % (Manual) Seg Neutrophils # Seg Neutrophils # Man Lymphocytes # (Manual) ABG pH ABG pO2 ABG HCO3 ABG O2 Saturation ABG Base Excess ABG Hemoglobin Oxyhemoglobin Sodium 136 L Potassium 3.5 L Chloride Carbon Dioxide BUN 45 H Creatinine 6.1 H Glucose 106 H POC Glucose 123 H Lactic Acid Calcium Phosphorus AST ALT Troponin T NT-Pro-B Natriuret Pep Total Protein Albumin HDL Cholesterol Urine Creatinine Crossmatch 04/16/22 04/16/22 04/16/22 04:55 04:55 16:44 WBC RBC 3.02 L Hgb 7.9 L Hct 24.2 L MCV 80 L MCH 26 L MCHC RDW 19.9 H Plt Count 128 L Lymph % (Auto) 11.1 L [place] % (Auto) Eos % (Auto) Lymph # (Auto) 0.8 L [place] # (Auto) Eos # (Auto) Seg Neutrophils % 84.8 H Seg Neuts % (Manual) Lymphocytes % (Manual) Eosinophils % (Manual) Seg Neutrophils # Seg Neutrophils # Man Lymphocytes # (Manual) ABG pH ABG pO2 ABG HCO3 ABG O2 Saturation ABG Base Excess ABG Hemoglobin Oxyhemoglobin Sodium Potassium Chloride Carbon Dioxide BUN 27 H Creatinine 4.3 H Glucose 126 H POC Glucose 120 H Lactic Acid Calcium Phosphorus AST ALT Troponin T NT-Pro-B Natriuret Pep Total Protein Albumin HDL Cholesterol Urine Creatinine Crossmatch 04/16/22 04/17/22 04/17/22 23:37 06:03 06:03 WBC 11.2 H RBC 3.37 L Hgb 8.6 L Hct 27.5 L MCV 82 L MCH 26 L MCHC 31 L RDW 20.4 H Plt Count 121 L Lymph % (Auto) [place] % (Auto) Eos % (Auto) Lymph # (Auto) [place] # (Auto) Eos # (Auto) Seg Neutrophils % Seg Neuts % (Manual) 96.0 H Lymphocytes % (Manual) 3.0 L Eosinophils % (Manual) Seg Neutrophils # Seg Neutrophils # Man 10.8 H Lymphocytes # (Manual) 0.3 L ABG pH ABG pO2 ABG HCO3 ABG O2 Saturation ABG Base Excess ABG Hemoglobin Oxyhemoglobin Sodium 135 L Potassium Chloride 94.7 L Carbon Dioxide BUN 50 H Creatinine 5.6 H Glucose POC Glucose 125 H Lactic Acid Calcium Phosphorus AST ALT Troponin T NT-Pro-B Natriuret Pep Total Protein Albumin HDL Cholesterol Urine Creatinine Crossmatch 04/18/22 04/18/22 04/18/22 03:51 04:24 04:24 WBC RBC 2.96 L Hgb 7.8 L Hct 23.3 L MCV 79 L MCH 26 L MCHC RDW 20.6 H Plt Count 97 L Lymph % (Auto) 10.2 L [place] % (Auto) Eos % (Auto) Lymph # (Auto) 0.5 L [place] # (Auto) Eos # (Auto) Seg Neutrophils % 86.5 H Seg Neuts % (Manual) Lymphocytes % (Manual) Eosinophils % (Manual) Seg Neutrophils # Seg Neutrophils # Man Lymphocytes # (Manual) ABG pH 7.516 H ABG pO2 44.2 L ABG HCO3 ABG O2 Saturation 81.8 L ABG Base Excess ABG Hemoglobin 8.6 L Oxyhemoglobin 80.1 L Sodium Potassium 5.1 H Chloride 96.5 L Carbon Dioxide BUN 70 H Creatinine 6.9 H Glucose POC Glucose Lactic Acid Calcium Phosphorus AST ALT Troponin T NT-Pro-B Natriuret Pep Total Protein Albumin HDL Cholesterol Urine Creatinine Crossmatch 04/18/22 04/18/22 04/18/22 15:30 15:39 16:51 WBC 0.8 L* RBC 2.42 L Hgb 6.2 L Hct 19.8 L* MCV 82 L MCH 26 L MCHC 31 L RDW 20.8 H Plt Count 82 L Lymph % (Auto) [place] % (Auto) Eos % (Auto) Lymph # (Auto) [place] # (Auto) Eos # (Auto) Seg Neutrophils % Seg Neuts % (Manual) Lymphocytes % (Manual) Eosinophils % (Manual) Seg Neutrophils # Seg Neutrophils # Man Lymphocytes # (Manual) ABG pH ABG pO2 ABG HCO3 ABG O2 Saturation ABG Base Excess ABG Hemoglobin 7.0 L Oxyhemoglobin Sodium Potassium Chloride Carbon Dioxide BUN Creatinine Glucose POC Glucose Lactic Acid Calcium Phosphorus AST ALT Troponin T NT-Pro-B Natriuret Pep Total Protein Albumin HDL Cholesterol Urine Creatinine Crossmatch See Detail 04/18/22 04/18/22 04/18/22 19:09 23:20 23:34 WBC 1.8 L* RBC 3.19 L Hgb 8.5 L Hct 26.7 L D MCV MCH 27 L MCHC RDW 20.4 H Plt Count 66 L Lymph % (Auto) [place] % (Auto) Eos % (Auto) Lymph # (Auto) [place] # (Auto) Eos # (Auto) Seg Neutrophils % Seg Neuts % (Manual) 32.0 L Lymphocytes % (Manual) 64.0 H Eosinophils % (Manual) Seg Neutrophils # Seg Neutrophils # Man 0.6 L Lymphocytes # (Manual) ABG pH ABG pO2 ABG HCO3 ABG O2 Saturation ABG Base Excess ABG Hemoglobin Oxyhemoglobin Sodium Potassium Chloride Carbon Dioxide BUN Creatinine Glucose POC Glucose 65 L 107 H Lactic Acid Calcium Phosphorus AST ALT Troponin T NT-Pro-B Natriuret Pep Total Protein Albumin HDL Cholesterol Urine Creatinine Crossmatch 04/18/22 04/18/22 04/19/22 Unknown Unknown 04:24 WBC RBC Hgb Hct MCV MCH MCHC RDW Plt Count Lymph % (Auto) [place] % (Auto) Eos % (Auto) Lymph # (Auto) [place] # (Auto) Eos # (Auto) Seg Neutrophils % Seg Neuts % (Manual) Lymphocytes % (Manual) Eosinophils % (Manual) Seg Neutrophils # Seg Neutrophils # Man Lymphocytes # (Manual) ABG pH ABG pO2 ABG HCO3 ABG O2 Saturation ABG Base Excess ABG Hemoglobin Oxyhemoglobin Sodium Potassium 6.0 H D Chloride 60.0 L Carbon Dioxide 18 L BUN 66 H 87 H Creatinine 6.1 H 7.2 H Glucose 73 L 132 H POC Glucose Lactic Acid 2.40 H* Calcium 6.6 L D 7.1 L Phosphorus 6.10 H AST ALT Troponin T 0.322 H* NT-Pro-B Natriuret Pep Total Protein Albumin HDL Cholesterol Urine Creatinine Crossmatch 04/19/22 04/19/22 04/19/22 04:45 05:27 06:46 WBC RBC Hgb Hct MCV MCH MCHC RDW Plt Count Lymph % (Auto) [place] % (Auto) Eos % (Auto) Lymph # (Auto) [place] # (Auto) Eos # (Auto) Seg Neutrophils % Seg Neuts % (Manual) Lymphocytes % (Manual) Eosinophils % (Manual) Seg Neutrophils # Seg Neutrophils # Man Lymphocytes # (Manual) ABG pH ABG pO2 424.1 H ABG HCO3 19.1 L ABG O2 Saturation 99.6 H ABG Base Excess -5.9 L ABG Hemoglobin 8.3 L Oxyhemoglobin Sodium Potassium Chloride Carbon Dioxide BUN Creatinine Glucose POC Glucose 107 H 111 H Lactic Acid Calcium Phosphorus AST ALT Troponin T NT-Pro-B Natriuret Pep Total Protein Albumin HDL Cholesterol Urine Creatinine Crossmatch 04/19/22 04/19/22 04/19/22 09:50 11:14 17:18 WBC RBC Hgb Hct MCV MCH MCHC RDW Plt Count Lymph % (Auto) [place] % (Auto) Eos % (Auto) Lymph # (Auto) [place] # (Auto) Eos # (Auto) Seg Neutrophils % Seg Neuts % (Manual) Lymphocytes % (Manual) Eosinophils % (Manual) Seg Neutrophils # Seg Neutrophils # Man Lymphocytes # (Manual) ABG pH ABG pO2 ABG HCO3 ABG O2 Saturation ABG Base Excess ABG Hemoglobin Oxyhemoglobin Sodium 132 L D Potassium Chloride 94.3 L Carbon Dioxide BUN 71 H Creatinine 6.3 H Glucose 205 H POC Glucose 164 H 128 H Lactic Acid Calcium 8.2 L D Phosphorus AST ALT Troponin T NT-Pro-B Natriuret Pep Total Protein Albumin HDL Cholesterol Urine Creatinine Crossmatch 04/20/22 04/20/22 04/20/22 04:00 04:30 10:40 WBC 3.1 L RBC 2.44 L Hgb 6.7 L Hct 20.3 L D MCV 83 L MCH 27 L MCHC RDW 20.7 H Plt Count 28 L Lymph % (Auto) [place] % (Auto) Eos % (Auto) Lymph # (Auto) [place] # (Auto) Eos # (Auto) Seg Neutrophils % Seg Neuts % (Manual) Lymphocytes % (Manual) Eosinophils % (Manual) Seg Neutrophils # Seg Neutrophils # Man Lymphocytes # (Manual) ABG pH 7.313 L ABG pO2 171.4 H ABG HCO3 ABG O2 Saturation ABG Base Excess -2.8 L ABG Hemoglobin 6.9 L Oxyhemoglobin Sodium Potassium 5.7 H Chloride Carbon Dioxide 19 L D BUN 99 H Creatinine 8.0 H Glucose POC Glucose Lactic Acid Calcium 6.9 L D Phosphorus 6.90 H AST 118 H ALT 67 H Troponin T NT-Pro-B Natriuret Pep Total Protein 6.2 L Albumin 2.0 L HDL Cholesterol Urine Creatinine Crossmatch 04/20/22 11:40 WBC RBC Hgb Hct MCV MCH MCHC RDW Plt Count Lymph % (Auto) [place] % (Auto) Eos % (Auto) Lymph # (Auto) [place] # (Auto) Eos # (Auto) Seg Neutrophils % Seg Neuts % (Manual) Lymphocytes % (Manual) Eosinophils % (Manual) Seg Neutrophils # Seg Neutrophils # Man Lymphocytes # (Manual) ABG pH ABG pO2 ABG HCO3 ABG O2 Saturation ABG Base Excess ABG Hemoglobin Oxyhemoglobin Sodium Potassium Chloride Carbon Dioxide BUN Creatinine Glucose POC Glucose 134 H Lactic Acid Calcium Phosphorus AST ALT Troponin T NT-Pro-B Natriuret Pep Total Protein Albumin HDL Cholesterol Urine Creatinine Crossmatch
[2022-04-20] MEDS ORDERED: SODIUM POLYSTYRENE 15 GM/60 ML ORAL LIQD PO SCH (15:00)
[2022-04-20] MEDS: QUEtiapine 25 MG TAB PO SCH (22:05)
[2022-04-20] MEDS: NORepinephrine/NS 8 MG-250 ML 8 MG/250 ML INFUS..BTL IV SCH (22:27)
[2022-04-21] MEDS: IPRATROPIUM/ALBUTEROL SULFATE 3 ML AMPUL.NEB IH SCH ×3 (00:13→07:52)
[2022-04-21 04:04] LABS: ABG Base Excess -3.4 mmol/L (-2.0-3.0); ABG HCO3 20.3 mmol/L (20.0-26.0); ABG Methemoglobin 0.6 % (0.0-1.5); ABG Oxygen Saturation 99.1 % (95.0-99.0); ABG PCO2 30.6 mm Hg; ABG PH 7.441 pH Units (7.350-7.450); ABG PO2 168.4 mm Hg (80.0-90.0)
--- NOTE | 2022-04-21 05:42 | XRay Report ---
CHEST 1 VIEW INDICATION / CLINICAL INFORMATION: follow up respiratory failure. COMPARISON: Chest x-ray 04/20/2022 FINDINGS: SUPPORT DEVICES: Stable, satisfactory device positioning. HEART / MEDIASTINUM: Stable interval appearance of the cardiomediastinal silhouette. LUNGS / PLEURA: Bilateral lung opacities demonstrate no significant interval change. BONES: No significant osseous abnormality. ADDITIONAL FINDINGS: No significant additional findings. IMPRESSION: 1. Persistent opacities medial left lung base may in part reflect left lower lobe atelectasis. Lungs otherwise remain clear. No significant interval change in the chest. Signer Name: Jeffrey Rodrigez II, MD Signed: 04/21/2022 5:37 AM Workstation Name: [id number]
[2022-04-21 06:03] LABS: Hematocrit 21.5 % (35.5-45.6); Hemoglobin 6.8 gm/dl (11.8-15.2); Mean Corpuscular HGB Conc 32 % (32-34); Mean Corpuscular Volume 84 fl (84-94); Red Blood Count 2.57 M/mm3 (3.65-5.03); Red Cell Distribution Width 21.4 % (13.2-15.2)
[2022-04-21 06:04] LABS: Platelet Count 19 K/mm3 (140-440)
[2022-04-21 06:06] LABS: Calcium 7.2 mg/dL (8.4-10.2)
[2022-04-21] MEDS: PIPERACIL-TAZO 2.25 GM/50 ML 2.25 GM/50 ML BAG IV SCH (06:26)
--- NOTE | 2022-04-21 08:12 | Progress Note ---
Assessment and Plan 1. Acute kidney injury: Vasomotor MARIE superimposed on CKD in the setting of sepsis/CHF/A.Fib with RVR. Renal US negative. Monitor renal function. Patient is oliguric. Renal prognosis is guarded. Avoid nephrotoxic agents. Meds dosage based on GFR. Monitor for [employer] needs. Patient started on hemodialysis due to worsening renal function, volume overload and associated hyperkalemia. Hemodialysis: 04/13, 04/14(UF only), 04/15. Unable to do HD today due to unstable hemodynamics. Risks of HD outweighs any benefits at this time. Hemodialysis unlikely to change the overall picture. 2. FEN: Hyperkalemia, meds ordered, monitor. Hypernatremia, improved, monitor. Hyperchloremic metabolic acidosis, monitor. Replete lytes as needed. Monitor lytes and volume status. 3. A.fib with RVR: Followed by Cards. Monitor. 4. Acute on chronic systolic congestive heart failure / Non-STEMI: LVEF 25 to 30%. Monitor. Followed by Cards. 5. Shock: Currently on Levophed and Midodrine. 6. Resp failure: Currently on vent. 7. HCAP / UTI / Sepsis: Off abx. 8. Acute metabolic encephalopathy, POA: H/o Dementia. Monitor. 9. Microcytic Anemia, POA: Heme positive stool. Trend. Seen by GI. 10. Bladder retention: Follow bladder scan. Bladder scan negative. Prognosis is poor. D/w ICU team. Family will arrive around 11:00 am to sign withdrawal of care paperwork. Subjective: Patient was seen and examined at the bedside. Examination: General appearance: well-developed, appears stated age, no distress, intubated, on vent HEENT: atraumatic, no icterus Neck: trachea midline Respiratory: coarse breath sounds Heart: S1S2, no murmur Abdomen: soft, bowel sounds heard, NT Integumentary: no obvious rash Neurologic: unresponsive Ext: trace ext edema Hemodialysis access: R IJ non-tunnel catheter Subjective Date of service: 04/21/22 Principal diagnosis: anemia Objective - Vital Signs Vital signs: Vital Signs - 12hr 04/20/22 04/20/22 04/20/22 20:15 20:30 20:45 Temperature Pulse Rate 83 82 79 Pulse Rate [ Anterior Bilateral Throughout] Pulse Rate [ From Monitor] Respiratory 14 14 14 Rate Respiratory Rate [Anterior Bilateral Throughout] Blood Pressure 92/59 91/58 88/55 O2 Sat by Pulse 100 100 100 Oximetry 04/20/22 04/20/22 04/20/22 21:01 21:15 21:30 Temperature Pulse Rate 87 86 88 Pulse Rate [ Anterior Bilateral Throughout] Pulse Rate [ From Monitor] Respiratory 11 L 14 14 Rate Respiratory Rate [Anterior Bilateral Throughout] Blood Pressure 95/59 93/57 93/60 O2 Sat by Pulse 100 100 100 Oximetry 04/20/22 04/20/22 04/20/22 21:31 21:45 21:46 Temperature Pulse Rate 86 81 80 Pulse Rate [ Anterior Bilateral Throughout] Pulse Rate [ From Monitor] Respiratory 13 16 13 Rate Respiratory Rate [Anterior Bilateral Throughout] Blood Pressure 93/60 88/55 93/60 O2 Sat by Pulse 100 99 100 Oximetry 04/20/22 04/20/22 04/20/22 22:00 22:01 22:15 Temperature Pulse Rate 80 88 91 H Pulse Rate [ Anterior Bilateral Throughout] Pulse Rate [ From Monitor] Respiratory 14 16 15 Rate Respiratory Rate [Anterior Bilateral Throughout] Blood Pressure 91/62 91/62 100/62 O2 Sat by Pulse 99 100 99 Oximetry 04/20/22 04/20/22 04/20/22 22:30 22:45 23:00 Temperature Pulse Rate 86 83 85 Pulse Rate [ Anterior Bilateral Throughout] Pulse Rate [ From Monitor] Respiratory 16 16 15 Rate Respiratory Rate [Anterior Bilateral Throughout] Blood Pressure 99/58 95/59 97/57 O2 Sat by Pulse 100 100 100 Oximetry 04/20/22 04/20/22 04/20/22 23:15 23:30 23:45 Temperature Pulse Rate 85 82 84 Pulse Rate [ Anterior Bilateral Throughout] Pulse Rate [ From Monitor] Respiratory 11 L 16 20 Rate Respiratory Rate [Anterior Bilateral Throughout] Blood Pressure 99/57 95/55 91/54 O2 Sat by Pulse 100 100 100 Oximetry 04/21/22 04/21/22 04/21/22 00:00 00:13 00:15 Temperature 97.5 F L Pulse Rate 85 83 Pulse Rate [ 84 Anterior Bilateral Throughout] Pulse Rate [ 80 From Monitor] Respiratory 14 22 Rate Respiratory 24 Rate [Anterior Bilateral Throughout] Blood Pressure 94/57 88/55 O2 Sat by Pulse 100 100 Oximetry 04/21/22 04/21/22 04/21/22 00:30 00:45 01:00 Temperature Pulse Rate 82 82 82 Pulse Rate [ Anterior Bilateral Throughout] Pulse Rate [ From Monitor] Respiratory 18 18 19 Rate Respiratory Rate [Anterior Bilateral Throughout] Blood Pressure 91/53 86/53 89/53 O2 Sat by Pulse 100 100 100 Oximetry 04/21/22 04/21/22 04/21/22 01:15 01:30 01:45 Temperature Pulse Rate 86 81 82 Pulse Rate [ Anterior Bilateral Throughout] Pulse Rate [ From Monitor] Respiratory 9 L 24 17 Rate Respiratory Rate [Anterior Bilateral Throughout] Blood Pressure 89/53 81/55 92/53 O2 Sat by Pulse 100 99 100 Oximetry 04/21/22 04/21/22 04/21/22 02:00 02:15 02:30 Temperature Pulse Rate 81 79 81 Pulse Rate [ Anterior Bilateral Throughout] Pulse Rate [ From Monitor] Respiratory 26 H 19 27 H Rate Respiratory Rate [Anterior Bilateral Throughout] Blood Pressure 95/53 93/52 94/55 O2 Sat by Pulse 100 100 100 Oximetry 04/21/22 04/21/22 04/21/22 02:45 03:00 03:15 Temperature Pulse Rate 80 80 84 Pulse Rate [ Anterior Bilateral Throughout] Pulse Rate [ From Monitor] Respiratory 19 18 20 Rate Respiratory Rate [Anterior Bilateral Throughout] Blood Pressure 90/52 93/55 82/55 O2 Sat by Pulse 100 100 100 Oximetry 04/21/22 04/21/22 04/21/22 03:30 03:42 03:45 Temperature Pulse Rate 80 81 83 Pulse Rate [ Anterior Bilateral Throughout] Pulse Rate [ From Monitor] Respiratory 17 4 L 14 Rate Respiratory Rate [Anterior Bilateral Throughout] Blood Pressure 87/54 90/54 91/53 O2 Sat by Pulse 100 100 97 Oximetry 04/21/22 04/21/22 04/21/22 04:00 04:14 04:15 Temperature 97.7 F Pulse Rate 80 82 Pulse Rate [ 81 Anterior Bilateral Throughout] Pulse Rate [ 80 From Monitor] Respiratory 22 19 Rate Respiratory 18 Rate [Anterior Bilateral Throughout] Blood Pressure 90/54 90/55 O2 Sat by Pulse 100 100 Oximetry 04/21/22 04/21/22 04/21/22 04:30 04:45 05:00 Temperature Pulse Rate 81 82 85 Pulse Rate [ Anterior Bilateral Throughout] Pulse Rate [ From Monitor] Respiratory 19 16 17 Rate Respiratory Rate [Anterior Bilateral Throughout] Blood Pressure 96/57 90/52 93/57 O2 Sat by Pulse 93 100 94 Oximetry 04/21/22 04/21/22 04/21/22 05:15 05:30 05:45 Temperature Pulse Rate 84 79 80 Pulse Rate [ Anterior Bilateral Throughout] Pulse Rate [ From Monitor] Respiratory 13 17 20 Rate Respiratory Rate [Anterior Bilateral Throughout] Blood Pressure 99/56 96/51 85/50 O2 Sat by Pulse 100 100 100 Oximetry 04/21/22 04/21/22 04/21/22 06:00 06:15 06:30 Temperature Pulse Rate 91 H 90 90 Pulse Rate [ Anterior Bilateral Throughout] Pulse Rate [ From Monitor] Respiratory 30 H 22 16 Rate Respiratory Rate [Anterior Bilateral Throughout] Blood Pressure 112/69 99/64 101/64 O2 Sat by Pulse 99 100 98 Oximetry 04/21/22 04/21/22 04/21/22 06:46 07:00 07:15 Temperature Pulse Rate 82 83 83 Pulse Rate [ Anterior Bilateral Throughout] Pulse Rate [ From Monitor] Respiratory 18 27 H 23 Rate Respiratory Rate [Anterior Bilateral Throughout] Blood Pressure 94/54 94/54 96/55 O2 Sat by Pulse 100 96 98 Oximetry 04/21/22 04/21/22 04/21/22 07:30 07:45 07:52 Temperature Pulse Rate 83 90 83 Pulse Rate [ 88 Anterior Bilateral Throughout] Pulse Rate [ From Monitor] Respiratory 22 22 Rate Respiratory 22 Rate [Anterior Bilateral Throughout] Blood Pressure 92/58 94/57 94/57 O2 Sat by Pulse 99 99 100 Oximetry 04/21/22 04/21/22 04/21/22 07:57 07:59 08:01 Temperature 97.5 F L Pulse Rate 87 Pulse Rate [ Anterior Bilateral Throughout] Pulse Rate [ 84 From Monitor] Respiratory 14 28 H Rate Respiratory Rate [Anterior Bilateral Throughout] Blood Pressure 98/61 O2 Sat by Pulse 100 99 Oximetry - Lab 04/21/22 04:00 04/21/22 04:00 Most recent lab results ABG pH 7.441 pH Units (7.350-7.450) 04/21/22 03:42 ABG pCO2 30.6 mm Hg 04/21/22 03:42 ABG pO2 168.4 mm Hg (80.0-90.0) H 04/21/22 03:42 ABG HCO3 20.3 mmol/L (20.0-26.0) 04/21/22 03:42 ABG O2 Saturation 99.1 % (95.0-99.0) H 04/21/22 03:42 Calcium 7.2 mg/dL (8.4-10.2) L 04/21/22 04:00 Phosphorus 5.80 mg/dL (2.5-4.5) H 04/21/22 04:00 Magnesium 2.20 mg/dL (1.7-2.3) 04/21/22 04:00 Urine Creatinine 82.0 mg/dL (0.1-20.0) H 04/05/22 18:16 Urine Sodium 107 mmol/L 04/05/22 18:16 Medications & Allergies - Medications Allergies/Adverse Reactions: Allergies lisinopril Allergy (Verified 03/31/22 07:48) Hives Home Medications: Home Medications Medication Instructions Recorded Confirmed Last Taken Type Tamsulosin [Flomax] 0.4 mg PO QDAY #7 cap 08/28/15 04/08/22 Unknown Rx AtorvaSTATin [Lipitor] 40 mg PO QHS 03/11/22 04/08/22 Unknown History metHOTREXate sodium [Methotrexate] 15 mg PO 1XW 03/11/22 04/08/22 Unknown Histo ry predniSONE 10 mg PO BID 03/16/22 04/08/22 Unknown History Amiodarone [Cordarone 200 MG TAB] 200 mg PO BID tablet 03/23/22 04/08/22 Unknown Rx Apixaban [Eliquis] 5 mg PO Q12HR tablet 03/23/22 04/08/22 Unknown Rx Aspirin [Aspirin BABY CHEW TAB] 81 mg PO QDAY tab.chew 03/23/22 04/08/22 Un known Rx Doxazosin [Cardura] 4 mg PO QDAY tablet 03/23/22 04/08/22 Unknown Rx Famotidine [Pepcid] 20 mg PO DAILY tablet 03/23/22 04/08/22 Unknown Rx Metoprolol [Lopressor TAB] 100 mg PO BID tablet 03/23/22 04/08/22 Unknown Rx Nicotine [Habitrol] 21 mg TD QDAY patch 03/23/22 04/08/22 Unknown Rx QUEtiapine [SEROquel] 50 mg PO QHS tablet 03/23/22 04/08/22 Unknown Rx amLODIPine 10 mg PO DAILY #30 tab 03/24/22 04/08/22 Unknown Rx Active Medications: Generic Name Dose Route Start Last Admin Trade Name Freq PRN Reason Stop Dose Admin Acetaminophen 650 mg 03/31/22 13:31 04/19/22 21:47 Acetaminophen 325 Mg Tab PO 650 mg Q4H PRN Administration Pain MILD(1-3)/Fever >100.5/[place] Albuterol/Ipratropium 1 ampul 04/18/22 10:00 04/21/22 07:52 Ipratropium/Albuterol Sulfate 3 Ml Ampul.Neb IH 1 ampul Q4HRT FRANCESCA Administration Amiodarone HCl 200 mg 03/31/22 22:00 04/20/22 22:06 Amiodarone 200 Mg Tab PO 200 mg BID FRANCESCA Administration Aspirin 81 mg 04/01/22 10:00 04/20/22 10:15 Aspirin 81 Mg Tab Chew PO 81 mg QDAY FRANCESCA Administration Atorvastatin Calcium 40 mg 03/31/22 22:00 04/20/22 22:06 Atorvastatin 40 Mg Tab PO 40 mg QHS FRANCESCA Administration Dextrose 25 ml 04/15/22 00:04 Dextrose 50% In Water (25gm) 50 Ml Syringe IV Q30MIN PRN Hypoglycemia Protocol Epoetin Gordon-epbx 20,000 unit 04/14/22 15:00 Epoetin Gordon-Epbx 10,000 Unit/1 Ml Vial SUB-Q CORINNE PRN hemodialysis Fentanyl 50 mcg 04/18/22 19:20 04/18/22 19:46 Fentanyl 100 Mcg/2 Ml Inj IV 50 mcg Q4HR PRN Administration Pain , Severe (7-10) Folic Acid 1 mg 04/08/22 10:00 04/20/22 10:15 Folic Acid 1 Mg Tab PO 1 mg DAILY FRANCESCA Administration Heparin Sodium (Porcine) 3,000 unit 04/13/22 10:24 Heparin 10,000 Units/10 Ml Vial IV CORINNE PRN hemodialysis Hydrophilic Ointment 1 applic 04/18/22 15:23 Lip Therapy Vaseline TP Q2HR PRN Dry Lips Sodium Chloride 100 mls @ 999 mls/hr 04/13/22 10:24 04/18/22 15:08 Nacl 0.9% IV 999 mls/hr CORINNE PRN Administration Hypotension Piperacillin Sod/Tazobactam Sod 2.25 gm in 50 mls @ 100 mls/hr 04/18/22 06:00 04/21/22 06:26 Zosyn/Ns 2.25 Gm/50ml IV 100 mls/hr Q8H FRANCESCA Administration NORepinephrine/NS 8 MG-250 ML 8 mg in 250 mls @ 14.438 mls/hr 04/18/22 15:00 04/20/22 22:27 Norepinephrine/Ns 8 Mg-250 Ml (Double Conc) IV 0.02 mcg/kg/min TITRATE FRANCESCA 2.888 mls/hr Administration Protocol 0.1 MCG/KG/MIN Vasopressin 20 unit/ Sodium 101 mls @ 9.09 mls/hr 04/18/22 15:00 04/20/22 15:50 Chloride IV 0 units/min TITR FRANCESCA 0 mls/hr Titration Protocol 0.03 UNITS/MIN Phenylephrine HCl 50 mg/ 250 mls @ 11.55 mls/hr 04/18/22 15:45 04/19/22 02:36 Sodium Chloride IV 0 mcg/kg/min TITR FRANCESCA 0 mls/hr Titration Protocol 0.5 MCG/KG/MIN Fentanyl Citrate 1,000 mcg in 100 mls @ 2.5 mls/hr 04/18/22 23:45 04/20/22 15:20 Fentanyl Drip Premix IV 0 mcg/hr TITR FRANCESCA 0 mls/hr Titration Protocol 25 MCG/HR Lansoprazole 30 mg 04/19/22 10:00 04/20/22 22:06 Lansoprazole 30 Mg Solutab FEEDTUBE 30 mg BID FRANCESCA Administration Midodrine 10 mg 04/20/22 10:00 04/20/22 15:09 Midodrine 10 Mg Tab PO 10 mg TID@0800,1200,1600 FRANCESCA Administration Multi-Ingred Cream/Lotion/Oil/Oint 1 applic 04/18/22 15:23 Mineral Oil/Petrolatum, White Ophth Oint 3.5 Gm OU Q4HR PRN Dry Eye(s) Ondansetron HCl 4 mg 03/31/22 13:31 Ondansetron 4 Mg/2 Ml Inj IV Q8H PRN Nausea And Vomiting Quetiapine Fumarate 50 mg 03/31/22 22:00 04/20/22 22:05 Quetiapine 25 Mg Tab PO 50 mg QHS FRANCESCA Administration Scopolamine 1 each 04/18/22 11:00 04/18/22 11:13 Scopolamine Transdermal Patch 72 Hr TD 1 each Q72HR FRANCESCA Administration Senna/Docusate Sodium 1 tab 04/18/22 22:00 04/20/22 22:04 Sennosides/Docusate Sodium 8.6/50 Mg Tab FEEDTUBE 1 tab BID FRANCESCA Administration Sodium Chloride 10 ml 03/31/22 22:00 04/20/22 22:05 Sodium Chloride 0.9% 10 Ml Flush Syringe IV 10 ml BID FRANCESCA Administration
[2022-04-21] MEDS ORDERED: SODIUM CHLORIDE 0.9% 100 ML IV PRN (08:30)
[2022-04-21] MEDS ORDERED: ALBUMIN HUMAN 25% (12.5 GM/50 ML) INJ IV PRN (08:30)
[2022-04-21] MEDS: MIDODRINE 10 MG TAB PO SCH ×3 (08:38→16:56)
[2022-04-21] MEDS: AMIODARONE 200 MG TAB PO SCH (10:15)
[2022-04-21] MEDS: LANSOPRAZOLE 30 MG SOLUTAB FEEDTUBE SCH (10:15)
[2022-04-21] MEDS: SENNOSIDES/DOCUSATE SODIUM 8.6/50 MG TAB FEEDTUBE SCH (10:15)
[2022-04-21] MEDS: FOLIC ACID 1 MG TAB PO SCH (10:15)
--- NOTE | 2022-04-21 10:26 | Progress Note ---
Assessment and Plan 67 y/o male with acute respiratory failure secondary to what is most likely a mucous plug, now with cardiac arrest, cardiovascular collapse and acute respiratory failure requiring intubation. 04/21/22: No objection to current plan. Continue supportive measures. 04/20/22: Wean fiO2 down given good PaO2. Ok with starting to wean peep. Per cards, patient's heart is not going to improve and he is not a candidate for any further therapy. I have asked them to speak with family about this issue. ON rounds, per report the family wanted 24-48 hours to see if the patient would improve. Overall he hasn't. Cards is suggesting hospice given his cardiac function. Await discussion about this then will reach out to family. No evidence of bleeding but hgb is dropping. Less than 7 now but barely. Await family decision about hospice prior to transfusion. Overall prognosis is very poor given multisystem organ failure. 04/19/22: CXR is now clear. Down to 50%. Wean pressors for MAPS >65. 1. ordered CTP with nebs multiple times daily 2. NT suction at least qshift 3. Vest therapy if available 4. Suggest putting left lung down until clear, nursing can wedge patient to that side 5. Guarded prognosis. Subjective Date of service: 04/21/22 Principal diagnosis: anemia Interval history: No acute events. Family withdrawing at 1100 today. Objective Vital Signs - 12hr 04/20/22 04/20/22 04/20/22 22:30 22:45 23:00 Temperature Pulse Rate 86 83 85 Pulse Rate [ Anterior Bilateral Throughout] Pulse Rate [ From Monitor] Respiratory 16 16 15 Rate Respiratory Rate [Anterior Bilateral Throughout] Blood Pressure 99/58 95/59 97/57 O2 Sat by Pulse 100 100 100 Oximetry 04/20/22 04/20/22 04/20/22 23:15 23:30 23:45 Temperature Pulse Rate 85 82 84 Pulse Rate [ Anterior Bilateral Throughout] Pulse Rate [ From Monitor] Respiratory 11 L 16 20 Rate Respiratory Rate [Anterior Bilateral Throughout] Blood Pressure 99/57 95/55 91/54 O2 Sat by Pulse 100 100 100 Oximetry 04/21/22 04/21/22 04/21/22 00:00 00:13 00:15 Temperature 97.5 F L Pulse Rate 85 83 Pulse Rate [ 84 Anterior Bilateral Throughout] Pulse Rate [ 80 From Monitor] Respiratory 14 22 Rate Respiratory 24 Rate [Anterior Bilateral Throughout] Blood Pressure 94/57 88/55 O2 Sat by Pulse 100 100 Oximetry 04/21/22 04/21/22 04/21/22 00:30 00:45 01:00 Temperature Pulse Rate 82 82 82 Pulse Rate [ Anterior Bilateral Throughout] Pulse Rate [ From Monitor] Respiratory 18 18 19 Rate Respiratory Rate [Anterior Bilateral Throughout] Blood Pressure 91/53 86/53 89/53 O2 Sat by Pulse 100 100 100 Oximetry 04/21/22 04/21/22 04/21/22 01:15 01:30 01:45 Temperature Pulse Rate 86 81 82 Pulse Rate [ Anterior Bilateral Throughout] Pulse Rate [ From Monitor] Respiratory 9 L 24 17 Rate Respiratory Rate [Anterior Bilateral Throughout] Blood Pressure 89/53 81/55 92/53 O2 Sat by Pulse 100 99 100 Oximetry 04/21/22 04/21/22 04/21/22 02:00 02:15 02:30 Temperature Pulse Rate 81 79 81 Pulse Rate [ Anterior Bilateral Throughout] Pulse Rate [ From Monitor] Respiratory 26 H 19 27 H Rate Respiratory Rate [Anterior Bilateral Throughout] Blood Pressure 95/53 93/52 94/55 O2 Sat by Pulse 100 100 100 Oximetry 04/21/22 04/21/22 04/21/22 02:45 03:00 03:15 Temperature Pulse Rate 80 80 84 Pulse Rate [ Anterior Bilateral Throughout] Pulse Rate [ From Monitor] Respiratory 19 18 20 Rate Respiratory Rate [Anterior Bilateral Throughout] Blood Pressure 90/52 93/55 82/55 O2 Sat by Pulse 100 100 100 Oximetry 04/21/22 04/21/22 04/21/22 03:30 03:42 03:45 Temperature Pulse Rate 80 81 83 Pulse Rate [ Anterior Bilateral Throughout] Pulse Rate [ From Monitor] Respiratory 17 4 L 14 Rate Respiratory Rate [Anterior Bilateral Throughout] Blood Pressure 87/54 90/54 91/53 O2 Sat by Pulse 100 100 97 Oximetry 04/21/22 04/21/22 04/21/22 04:00 04:14 04:15 Temperature 97.7 F Pulse Rate 80 82 Pulse Rate [ 81 Anterior Bilateral Throughout] Pulse Rate [ 80 From Monitor] Respiratory 22 19 Rate Respiratory 18 Rate [Anterior Bilateral Throughout] Blood Pressure 90/54 90/55 O2 Sat by Pulse 100 100 Oximetry 09/15/22 09/15/22 09/15/22 04:30 04:45 05:00 Temperature Pulse Rate 81 82 85 Pulse Rate [ Anterior Bilateral Throughout] Pulse Rate [ From Monitor] Respiratory 19 16 17 Rate Respiratory Rate [Anterior Bilateral Throughout] Blood Pressure 96/57 90/52 93/57 O2 Sat by Pulse 93 100 94 Oximetry 04/21/22 04/21/22 04/21/22 05:15 05:30 05:45 Temperature Pulse Rate 84 79 80 Pulse Rate [ Anterior Bilateral Throughout] Pulse Rate [ From Monitor] Respiratory 13 17 20 Rate Respiratory Rate [Anterior Bilateral Throughout] Blood Pressure 99/56 96/51 85/50 O2 Sat by Pulse 100 100 100 Oximetry 04/21/22 04/21/22 04/21/22 06:00 06:15 06:30 Temperature Pulse Rate 91 H 90 90 Pulse Rate [ Anterior Bilateral Throughout] Pulse Rate [ From Monitor] Respiratory 30 H 22 16 Rate Respiratory Rate [Anterior Bilateral Throughout] Blood Pressure 112/69 99/64 101/64 O2 Sat by Pulse 99 100 98 Oximetry 04/21/22 04/21/22 04/21/22 06:46 07:00 07:15 Temperature Pulse Rate 82 83 83 Pulse Rate [ Anterior Bilateral Throughout] Pulse Rate [ From Monitor] Respiratory 18 27 H 23 Rate Respiratory Rate [Anterior Bilateral Throughout] Blood Pressure 94/54 94/54 96/55 O2 Sat by Pulse 100 96 98 Oximetry 04/21/22 04/21/22 04/21/22 07:30 07:45 07:52 Temperature Pulse Rate 83 90 83 Pulse Rate [ 88 Anterior Bilateral Throughout] Pulse Rate [ From Monitor] Respiratory 22 22 Rate Respiratory 22 Rate [Anterior Bilateral Throughout] Blood Pressure 92/58 94/57 94/57 O2 Sat by Pulse 99 99 100 Oximetry 04/21/22 04/21/22 04/21/22 07:57 07:59 08:01 Temperature 97.5 F L Pulse Rate 87 Pulse Rate [ Anterior Bilateral Throughout] Pulse Rate [ 84 From Monitor] Respiratory 14 28 H Rate Respiratory Rate [Anterior Bilateral Throughout] Blood Pressure 98/61 O2 Sat by Pulse 100 99 Oximetry CBC and BMP: 04/21/22 04:00 04/21/22 04:00 ABG, PT/INR, D-dimer: ABG ABG pH 7.441 pH Units (7.350-7.450) 04/21/22 03:42 ABG pCO2 30.6 mm Hg 04/21/22 03:42 ABG pO2 168.4 mm Hg (80.0-90.0) H 04/21/22 03:42 ABG O2 Saturation 99.1 % (95.0-99.0) H 04/21/22 03:42 Abnormal lab findings: Abnormal Labs 03/31/22 03/31/22 04/01/22 08:00 08:00 08:00 WBC 15.6 H RBC 3.46 L Hgb 8.8 L Hct 28.6 L MCV 83 L MCH 26 L MCHC 31 L RDW 18.7 H Plt Count Lymph % (Auto) 4.2 L Mason % (Auto) Eos % (Auto) Lymph # (Auto) 0.7 L Mason # (Auto) 1.0 H Eos # (Auto) 0.5 H Seg Neutrophils % 85.9 H Seg Neuts % (Manual) Lymphocytes % (Manual) Eosinophils % (Manual) Seg Neutrophils # 13.4 H Seg Neutrophils # Man Lymphocytes # (Manual) ABG pH ABG pO2 ABG HCO3 ABG O2 Saturation ABG Base Excess ABG Hemoglobin Oxyhemoglobin Sodium 146 H Potassium Chloride 111.3 H 114.8 H Carbon Dioxide 11 L 17 L BUN 22 H Creatinine 2.3 H 2.0 H Glucose 55 L POC Glucose Lactic Acid Calcium 8.3 L Phosphorus AST ALT Troponin T 0.138 H* NT-Pro-B Natriuret Pep 13412 H Total Protein Albumin 2.8 L HDL Cholesterol 38 L Urine Creatinine Crossmatch 04/01/22 04/02/22 04/02/22 08:54 04:40 04:40 WBC 12.6 H RBC 2.81 L 2.59 L Hgb 7.4 L 6.8 L Hct 22.6 L D 20.6 L MCV 81 L 80 L MCH 26 L 26 L MCHC RDW 19.1 H 19.0 H Plt Count Lymph % (Auto) Mason % (Auto) Eos % (Auto) Lymph # (Auto) Mason # (Auto) Eos # (Auto) Seg Neutrophils % Seg Neuts % (Manual) Lymphocytes % (Manual) Eosinophils % (Manual) Seg Neutrophils # Seg Neutrophils # Man Lymphocytes # (Manual) ABG pH ABG pO2 ABG HCO3 ABG O2 Saturation ABG Base Excess ABG Hemoglobin Oxyhemoglobin Sodium Potassium Chloride 113.9 H Carbon Dioxide 17 L BUN 21 H Creatinine 2.2 H Glucose POC Glucose Lactic Acid Calcium 8.3 L Phosphorus AST ALT Troponin T NT-Pro-B Natriuret Pep Total Protein Albumin HDL Cholesterol Urine Creatinine Crossmatch 04/02/22 04/03/22 04/03/22 11:45 05:05 05:05 WBC RBC Hgb 7.2 L Hct 22.3 L MCV MCH MCHC RDW Plt Count Lymph % (Auto) Mason % (Auto) Eos % (Auto) Lymph # (Auto) Mason # (Auto) Eos # (Auto) Seg Neutrophils % Seg Neuts % (Manual) Lymphocytes % (Manual) Eosinophils % (Manual) Seg Neutrophils # Seg Neutrophils # Man Lymphocytes # (Manual) ABG pH ABG pO2 ABG HCO3 ABG O2 Saturation ABG Base Excess ABG Hemoglobin Oxyhemoglobin Sodium Potassium Chloride Carbon Dioxide BUN Creatinine 2.0 H Glucose POC Glucose Lactic Acid Calcium Phosphorus AST ALT Troponin T NT-Pro-B Natriuret Pep Total Protein Albumin HDL Cholesterol Urine Creatinine Crossmatch See Detail 04/03/22 04/04/22 04/04/22 12:29 11:38 11:38 WBC RBC Hgb 7.4 L Hct 23.3 L MCV MCH MCHC RDW Plt Count Lymph % (Auto) Mason % (Auto) Eos % (Auto) Lymph # (Auto) Mason # (Auto) Eos # (Auto) Seg Neutrophils % Seg Neuts % (Manual) Lymphocytes % (Manual) Eosinophils % (Manual) Seg Neutrophils # Seg Neutrophils # Man Lymphocytes # (Manual) ABG pH ABG pO2 ABG HCO3 ABG O2 Saturation ABG Base Excess ABG Hemoglobin Oxyhemoglobin Sodium Potassium Chloride 115.6 H Carbon Dioxide 17 L BUN 24 H Creatinine 2.3 H Glucose 67 L POC Glucose Lactic Acid Calcium Phosphorus AST ALT Troponin T 0.135 H* NT-Pro-B Natriuret Pep Total Protein Albumin HDL Cholesterol Urine Creatinine Crossmatch 04/05/22 04/05/22 04/05/22 05:06 05:06 18:16 WBC RBC 2.72 L Hgb 7.3 L Hct 22.4 L MCV 82 L MCH 27 L MCHC RDW 20.5 H Plt Count Lymph % (Auto) 13.2 L Mason % (Auto) 10.1 H Eos % (Auto) 6.6 H Lymph # (Auto) 1.1 L Mason # (Auto) Eos # (Auto) 0.5 H Seg Neutrophils % Seg Neuts % (Manual) 93.0 H Lymphocytes % (Manual) 2.0 L Eosinophils % (Manual) Seg Neutrophils # Seg Neutrophils # Man Lymphocytes # (Manual) 0.2 L ABG pH ABG pO2 ABG HCO3 ABG O2 Saturation ABG Base Excess ABG Hemoglobin Oxyhemoglobin Sodium Potassium Chloride 118.6 H Carbon Dioxide 17 L BUN 26 H Creatinine 2.3 H Glucose POC Glucose Lactic Acid Calcium Phosphorus AST ALT Troponin T NT-Pro-B Natriuret Pep Total Protein 5.8 L Albumin 2.0 L HDL Cholesterol Urine Creatinine 82.0 H Crossmatch 04/05/22 04/06/22 04/07/22 22:03 05:46 08:20 WBC RBC Hgb Hct MCV MCH MCHC RDW Plt Count Lymph % (Auto) Mason % (Auto) Eos % (Auto) Lymph # (Auto) Mason # (Auto) Eos # (Auto) Seg Neutrophils % Seg Neuts % (Manual) Lymphocytes % (Manual) Eosinophils % (Manual) Seg Neutrophils # Seg Neutrophils # Man Lymphocytes # (Manual) ABG pH ABG pO2 ABG HCO3 ABG O2 Saturation ABG Base Excess ABG Hemoglobin Oxyhemoglobin Sodium 149 H Potassium Chloride 117.4 H 118.1 H Carbon Dioxide 16 L 19 L BUN 28 H 30 H Creatinine 2.9 H 3.2 H Glucose 72 L POC Glucose 108 H Lactic Acid Calcium Phosphorus AST ALT Troponin T NT-Pro-B Natriuret Pep Total Protein Albumin HDL Cholesterol Urine Creatinine Crossmatch 04/08/22 04/08/22 04/09/22 04:47 21:43 04:30 WBC RBC 2.82 L Hgb 7.4 L Hct 23.0 L MCV 82 L MCH 26 L MCHC RDW 20.8 H Plt Count Lymph % (Auto) Mason % (Auto) Eos % (Auto) 9.0 H Lymph # (Auto) Mason # (Auto) Eos # (Auto) 0.6 H Seg Neutrophils % Seg Neuts % (Manual) Lymphocytes % (Manual) Eosinophils % (Manual) Seg Neutrophils # Seg Neutrophils # Man Lymphocytes # (Manual) ABG pH ABG pO2 ABG HCO3 ABG O2 Saturation ABG Base Excess ABG Hemoglobin Oxyhemoglobin Sodium 148 H Potassium Chloride 118.5 H Carbon Dioxide 20 L BUN 32 H Creatinine 3.2 H Glucose POC Glucose 136 H Lactic Acid Calcium Phosphorus AST ALT Troponin T NT-Pro-B Natriuret Pep Total Protein Albumin HDL Cholesterol Urine Creatinine Crossmatch 04/09/22 04/09/22 04/09/22 04:30 11:16 22:10 WBC RBC Hgb Hct MCV MCH MCHC RDW Plt Count Lymph % (Auto) Mason % (Auto) Eos % (Auto) Lymph # (Auto) Mason # (Auto) Eos # (Auto) Seg Neutrophils % Seg Neuts % (Manual) Lymphocytes % (Manual) Eosinophils % (Manual) Seg Neutrophils # Seg Neutrophils # Man Lymphocytes # (Manual) ABG pH ABG pO2 ABG HCO3 ABG O2 Saturation ABG Base Excess ABG Hemoglobin Oxyhemoglobin Sodium 149 H Potassium Chloride 119.2 H Carbon Dioxide 20 L BUN 35 H Creatinine 4.1 H Glucose POC Glucose 120 H 111 H Lactic Acid Calcium Phosphorus AST ALT Troponin T NT-Pro-B Natriuret Pep Total Protein Albumin HDL Cholesterol Urine Creatinine Crossmatch 04/10/22 04/10/22 04/11/22 04:19 12:06 13:55 WBC RBC 3.05 L Hgb 7.8 L Hct 24.7 L MCV 81 L MCH 26 L MCHC RDW 20.9 H Plt Count Lymph % (Auto) 12.1 L Mason % (Auto) Eos % (Auto) 6.1 H Lymph # (Auto) 0.7 L Mason # (Auto) Eos # (Auto) Seg Neutrophils % 79.1 H Seg Neuts % (Manual) Lymphocytes % (Manual) Eosinophils % (Manual) Seg Neutrophils # Seg Neutrophils # Man Lymphocytes # (Manual) ABG pH ABG pO2 ABG HCO3 ABG O2 Saturation ABG Base Excess ABG Hemoglobin Oxyhemoglobin Sodium Potassium Chloride 115.5 H Carbon Dioxide 20 L BUN 38 H Creatinine 4.0 H Glucose 101 H POC Glucose 113 H Lactic Acid Calcium Phosphorus AST ALT Troponin T NT-Pro-B Natriuret Pep Total Protein Albumin HDL Cholesterol Urine Creatinine Crossmatch 04/11/22 04/12/22 04/12/22 13:55 04:40 04:40 WBC RBC 2.75 L Hgb 6.9 L Hct 22.1 L MCV 80 L MCH 25 L MCHC 31 L RDW 20.5 H Plt Count Lymph % (Auto) 11.3 L Mason % (Auto) Eos % (Auto) 4.8 H Lymph # (Auto) 0.9 L Mason # (Auto) Eos # (Auto) Seg Neutrophils % 81.3 H Seg Neuts % (Manual) Lymphocytes % (Manual) Eosinophils % (Manual) Seg Neutrophils # Seg Neutrophils # Man Lymphocytes # (Manual) ABG pH ABG pO2 ABG HCO3 ABG O2 Saturation ABG Base Excess ABG Hemoglobin Oxyhemoglobin Sodium Potassium 5.8 H 5.4 H Chloride 110.9 H 111.6 H Carbon Dioxide BUN 48 H 51 H Creatinine 5.3 H 5.8 H Glucose 110 H POC Glucose Lactic Acid Calcium Phosphorus AST ALT Troponin T NT-Pro-B Natriuret Pep Total Protein Albumin HDL Cholesterol Urine Creatinine Crossmatch 04/12/22 04/12/22 04/13/22 15:12 23:27 06:02 WBC RBC Hgb Hct MCV MCH MCHC RDW Plt Count Lymph % (Auto) Mason % (Auto) Eos % (Auto) Lymph # (Auto) Mason # (Auto) Eos # (Auto) Seg Neutrophils % Seg Neuts % (Manual) Lymphocytes % (Manual) Eosinophils % (Manual) Seg Neutrophils # Seg Neutrophils # Man Lymphocytes # (Manual) ABG pH ABG pO2 ABG HCO3 ABG O2 Saturation ABG Base Excess ABG Hemoglobin Oxyhemoglobin Sodium Potassium Chloride 110.6 H Carbon Dioxide BUN 54 H Creatinine 5.9 H Glucose POC Glucose 109 H 111 H Lactic Acid Calcium Phosphorus AST ALT Troponin T NT-Pro-B Natriuret Pep Total Protein Albumin HDL Cholesterol Urine Creatinine Crossmatch 04/13/22 04/13/22 04/13/22 14:19 14:19 23:50 WBC 4.4 L RBC 2.75 L Hgb 7.0 L Hct 22.4 L MCV 81 L MCH 25 L MCHC 31 L RDW 20.9 H Plt Count Lymph % (Auto) Mason % (Auto) Eos % (Auto) 10.7 H Lymph # (Auto) 1.0 L Mason # (Auto) Eos # (Auto) 0.5 H Seg Neutrophils % Seg Neuts % (Manual) Lymphocytes % (Manual) Eosinophils % (Manual) Seg Neutrophils # Seg Neutrophils # Man Lymphocytes # (Manual) ABG pH ABG pO2 ABG HCO3 ABG O2 Saturation ABG Base Excess ABG Hemoglobin Oxyhemoglobin Sodium 146 H Potassium Chloride 111.2 H Carbon Dioxide BUN 62 H Creatinine 6.6 H Glucose POC Glucose 118 H Lactic Acid Calcium Phosphorus AST ALT Troponin T NT-Pro-B Natriuret Pep Total Protein Albumin HDL Cholesterol Urine Creatinine Crossmatch 04/14/22 04/14/22 04/14/22 04:50 04:50 08:44 WBC 3.5 L RBC 2.70 L Hgb 6.6 L Hct 21.6 L MCV 80 L MCH 25 L MCHC 31 L RDW 21.2 H Plt Count Lymph % (Auto) Mason % (Auto) Eos % (Auto) Lymph # (Auto) Mason # (Auto) Eos # (Auto) Seg Neutrophils % Seg Neuts % (Manual) 73.0 H Lymphocytes % (Manual) Eosinophils % (Manual) 5.0 H Seg Neutrophils # Seg Neutrophils # Man Lymphocytes # (Manual) 0.7 L ABG pH ABG pO2 ABG HCO3 ABG O2 Saturation ABG Base Excess ABG Hemoglobin Oxyhemoglobin Sodium Potassium Chloride Carbon Dioxide BUN 34 H Creatinine 4.3 H Glucose 107 H POC Glucose Lactic Acid Calcium 7.8 L Phosphorus AST ALT Troponin T NT-Pro-B Natriuret Pep Total Protein Albumin HDL Cholesterol Urine Creatinine Crossmatch See Detail 04/15/22 04/15/22 04/15/22 09:41 09:41 22:22 WBC RBC 3.03 L Hgb 8.0 L Hct 24.8 L MCV 82 L MCH 26 L MCHC RDW 19.8 H Plt Count Lymph % (Auto) 11.8 L Mason % (Auto) Eos % (Auto) 5.4 H Lymph # (Auto) 0.9 L Mason # (Auto) Eos # (Auto) Seg Neutrophils % 80.1 H Seg Neuts % (Manual) Lymphocytes % (Manual) Eosinophils % (Manual) Seg Neutrophils # Seg Neutrophils # Man Lymphocytes # (Manual) ABG pH ABG pO2 ABG HCO3 ABG O2 Saturation ABG Base Excess ABG Hemoglobin Oxyhemoglobin Sodium 136 L Potassium 3.5 L Chloride Carbon Dioxide BUN 45 H Creatinine 6.1 H Glucose 106 H POC Glucose 123 H Lactic Acid Calcium Phosphorus AST ALT Troponin T NT-Pro-B Natriuret Pep Total Protein Albumin HDL Cholesterol Urine Creatinine Crossmatch 04/16/22 04/16/22 04/16/22 04:55 04:55 16:44 WBC RBC 3.02 L Hgb 7.9 L Hct 24.2 L MCV 80 L MCH 26 L MCHC RDW 19.9 H Plt Count 128 L Lymph % (Auto) 11.1 L Mason % (Auto) Eos % (Auto) Lymph # (Auto) 0.8 L Mason # (Auto) Eos # (Auto) Seg Neutrophils % 84.8 H Seg Neuts % (Manual) Lymphocytes % (Manual) Eosinophils % (Manual) Seg Neutrophils # Seg Neutrophils # Man Lymphocytes # (Manual) ABG pH ABG pO2 ABG HCO3 ABG O2 Saturation ABG Base Excess ABG Hemoglobin Oxyhemoglobin Sodium Potassium Chloride Carbon Dioxide BUN 27 H Creatinine 4.3 H Glucose 126 H POC Glucose 120 H Lactic Acid Calcium Phosphorus AST ALT Troponin T NT-Pro-B Natriuret Pep Total Protein Albumin HDL Cholesterol Urine Creatinine Crossmatch 04/16/22 04/17/22 04/17/22 23:37 06:03 06:03 WBC 11.2 H RBC 3.37 L Hgb 8.6 L Hct 27.5 L MCV 82 L MCH 26 L MCHC 31 L RDW 20.4 H Plt Count 121 L Lymph % (Auto) Mason % (Auto) Eos % (Auto) Lymph # (Auto) Mason # (Auto) Eos # (Auto) Seg Neutrophils % Seg Neuts % (Manual) 96.0 H Lymphocytes % (Manual) 3.0 L Eosinophils % (Manual) Seg Neutrophils # Seg Neutrophils # Man 10.8 H Lymphocytes # (Manual) 0.3 L ABG pH ABG pO2 ABG HCO3 ABG O2 Saturation ABG Base Excess ABG Hemoglobin Oxyhemoglobin Sodium 135 L Potassium Chloride 94.7 L Carbon Dioxide BUN 50 H Creatinine 5.6 H Glucose POC Glucose 125 H Lactic Acid Calcium Phosphorus AST ALT Troponin T NT-Pro-B Natriuret Pep Total Protein Albumin HDL Cholesterol Urine Creatinine Crossmatch 04/18/22 04/18/22 04/18/22 03:51 04:24 04:24 WBC RBC 2.96 L Hgb 7.8 L Hct 23.3 L MCV 79 L MCH 26 L MCHC RDW 20.6 H Plt Count 97 L Lymph % (Auto) 10.2 L Mason % (Auto) Eos % (Auto) Lymph # (Auto) 0.5 L Mason # (Auto) Eos # (Auto) Seg Neutrophils % 86.5 H Seg Neuts % (Manual) Lymphocytes % (Manual) Eosinophils % (Manual) Seg Neutrophils # Seg Neutrophils # Man Lymphocytes # (Manual) ABG pH 7.516 H ABG pO2 44.2 L ABG HCO3 ABG O2 Saturation 81.8 L ABG Base Excess ABG Hemoglobin 8.6 L Oxyhemoglobin 80.1 L Sodium Potassium 5.1 H Chloride 96.5 L Carbon Dioxide BUN 70 H Creatinine 6.9 H Glucose POC Glucose Lactic Acid Calcium Phosphorus AST ALT Troponin T NT-Pro-B Natriuret Pep Total Protein Albumin HDL Cholesterol Urine Creatinine Crossmatch 04/18/22 04/18/22 04/18/22 15:30 15:39 16:51 WBC 0.8 L* RBC 2.42 L Hgb 6.2 L Hct 19.8 L* MCV 82 L MCH 26 L MCHC 31 L RDW 20.8 H Plt Count 82 L Lymph % (Auto) Mason % (Auto) Eos % (Auto) Lymph # (Auto) Mason # (Auto) Eos # (Auto) Seg Neutrophils % Seg Neuts % (Manual) Lymphocytes % (Manual) Eosinophils % (Manual) Seg Neutrophils # Seg Neutrophils # Man Lymphocytes # (Manual) ABG pH ABG pO2 ABG HCO3 ABG O2 Saturation ABG Base Excess ABG Hemoglobin 7.0 L Oxyhemoglobin Sodium Potassium Chloride Carbon Dioxide BUN Creatinine Glucose POC Glucose Lactic Acid Calcium Phosphorus AST ALT Troponin T NT-Pro-B Natriuret Pep Total Protein Albumin HDL Cholesterol Urine Creatinine Crossmatch See Detail 04/18/22 04/18/22 04/18/22 19:09 23:20 23:34 WBC 1.8 L* RBC 3.19 L Hgb 8.5 L Hct 26.7 L D MCV MCH 27 L MCHC RDW 20.4 H Plt Count 66 L Lymph % (Auto) Mason % (Auto) Eos % (Auto) Lymph # (Auto) Mason # (Auto) Eos # (Auto) Seg Neutrophils % Seg Neuts % (Manual) 32.0 L Lymphocytes % (Manual) 64.0 H Eosinophils % (Manual) Seg Neutrophils # Seg Neutrophils # Man 0.6 L Lymphocytes # (Manual) ABG pH ABG pO2 ABG HCO3 ABG O2 Saturation ABG Base Excess ABG Hemoglobin Oxyhemoglobin Sodium Potassium Chloride Carbon Dioxide BUN Creatinine Glucose POC Glucose 65 L 107 H Lactic Acid Calcium Phosphorus AST ALT Troponin T NT-Pro-B Natriuret Pep Total Protein Albumin HDL Cholesterol Urine Creatinine Crossmatch 04/18/22 04/18/22 04/19/22 Unknown Unknown 04:24 WBC RBC Hgb Hct MCV MCH MCHC RDW Plt Count Lymph % (Auto) Mason % (Auto) Eos % (Auto) Lymph # (Auto) Mason # (Auto) Eos # (Auto) Seg Neutrophils % Seg Neuts % (Manual) Lymphocytes % (Manual) Eosinophils % (Manual) Seg Neutrophils # Seg Neutrophils # Man Lymphocytes # (Manual) ABG pH ABG pO2 ABG HCO3 ABG O2 Saturation ABG Base Excess ABG Hemoglobin Oxyhemoglobin Sodium Potassium 6.0 H D Chloride 60.0 L Carbon Dioxide 18 L BUN 66 H 87 H Creatinine 6.1 H 7.2 H Glucose 73 L 132 H POC Glucose Lactic Acid 2.40 H* Calcium 6.6 L D 7.1 L Phosphorus 6.10 H AST ALT Troponin T 0.322 H* NT-Pro-B Natriuret Pep Total Protein Albumin HDL Cholesterol Urine Creatinine Crossmatch 04/19/22 04/19/22 04/19/22 04:45 05:27 06:46 WBC RBC Hgb Hct MCV MCH MCHC RDW Plt Count Lymph % (Auto) Mason % (Auto) Eos % (Auto) Lymph # (Auto) Mason # (Auto) Eos # (Auto) Seg Neutrophils % Seg Neuts % (Manual) Lymphocytes % (Manual) Eosinophils % (Manual) Seg Neutrophils # Seg Neutrophils # Man Lymphocytes # (Manual) ABG pH ABG pO2 424.1 H ABG HCO3 19.1 L ABG O2 Saturation 99.6 H ABG Base Excess -5.9 L ABG Hemoglobin 8.3 L Oxyhemoglobin Sodium Potassium Chloride Carbon Dioxide BUN Creatinine Glucose POC Glucose 107 H 111 H Lactic Acid Calcium Phosphorus AST ALT Troponin T NT-Pro-B Natriuret Pep Total Protein Albumin HDL Cholesterol Urine Creatinine Crossmatch 04/19/22 04/19/22 04/19/22 09:50 11:14 17:18 WBC RBC Hgb Hct MCV MCH MCHC RDW Plt Count Lymph % (Auto) Mason % (Auto) Eos % (Auto) Lymph # (Auto) Mason # (Auto) Eos # (Auto) Seg Neutrophils % Seg Neuts % (Manual) Lymphocytes % (Manual) Eosinophils % (Manual) Seg Neutrophils # Seg Neutrophils # Man Lymphocytes # (Manual) ABG pH ABG pO2 ABG HCO3 ABG O2 Saturation ABG Base Excess ABG Hemoglobin Oxyhemoglobin Sodium 132 L D Potassium Chloride 94.3 L Carbon Dioxide BUN 71 H Creatinine 6.3 H Glucose 205 H POC Glucose 164 H 128 H Lactic Acid Calcium 8.2 L D Phosphorus AST ALT Troponin T NT-Pro-B Natriuret Pep Total Protein Albumin HDL Cholesterol Urine Creatinine Crossmatch 04/20/22 04/20/22 04/20/22 04:00 04:30 10:40 WBC 3.1 L RBC 2.44 L Hgb 6.7 L Hct 20.3 L D MCV 83 L MCH 27 L MCHC RDW 20.7 H Plt Count 28 L Lymph % (Auto) Mason % (Auto) Eos % (Auto) Lymph # (Auto) Mason # (Auto) Eos # (Auto) Seg Neutrophils % Seg Neuts % (Manual) Lymphocytes % (Manual) Eosinophils % (Manual) Seg Neutrophils # Seg Neutrophils # Man Lymphocytes # (Manual) ABG pH 7.313 L ABG pO2 171.4 H ABG HCO3 ABG O2 Saturation ABG Base Excess -2.8 L ABG Hemoglobin 6.9 L Oxyhemoglobin Sodium Potassium 5.7 H Chloride Carbon Dioxide 19 L D BUN 99 H Creatinine 8.0 H Glucose POC Glucose Lactic Acid Calcium 6.9 L D Phosphorus 6.90 H AST 118 H ALT 67 H Troponin T NT-Pro-B Natriuret Pep Total Protein 6.2 L Albumin 2.0 L HDL Cholesterol Urine Creatinine Crossmatch 04/20/22 04/20/22 04/21/22 11:40 16:38 03:42 WBC RBC Hgb Hct MCV MCH MCHC RDW Plt Count Lymph % (Auto) Mason % (Auto) Eos % (Auto) Lymph # (Auto) Mason # (Auto) Eos # (Auto) Seg Neutrophils % Seg Neuts % (Manual) Lymphocytes % (Manual) Eosinophils % (Manual) Seg Neutrophils # Seg Neutrophils # Man Lymphocytes # (Manual) ABG pH ABG pO2 168.4 H ABG HCO3 ABG O2 Saturation 99.1 H ABG Base Excess -3.4 L ABG Hemoglobin 7.0 L Oxyhemoglobin Sodium Potassium Chloride Carbon Dioxide BUN Creatinine Glucose POC Glucose 134 H 106 H Lactic Acid Calcium Phosphorus AST ALT Troponin T NT-Pro-B Natriuret Pep Total Protein Albumin HDL Cholesterol Urine Creatinine Crossmatch 04/21/22 04/21/22 04:00 04:00 WBC 2.2 L RBC 2.57 L Hgb 6.8 L Hct 21.5 L MCV MCH 27 L MCHC RDW 21.4 H Plt Count 19 L* Lymph % (Auto) Mason % (Auto) Eos % (Auto) Lymph # (Auto) Mason # (Auto) Eos # (Auto) Seg Neutrophils % Seg Neuts % (Manual) Lymphocytes % (Manual) Eosinophils % (Manual) Seg Neutrophils # Seg Neutrophils # Man Lymphocytes # (Manual) ABG pH ABG pO2 ABG HCO3 ABG O2 Saturation ABG Base Excess ABG Hemoglobin Oxyhemoglobin Sodium Potassium Chloride Carbon Dioxide 20 L BUN 108 H Creatinine 8.4 H Glucose 106 H POC Glucose Lactic Acid Calcium 7.2 L Phosphorus 5.80 H AST ALT Troponin T NT-Pro-B Natriuret Pep Total Protein Albumin HDL Cholesterol Urine Creatinine Crossmatch
--- NOTE | 2022-04-21 11:07 | Progress Note ---
Assessment and Plan Patient is a 67-year-old male with a past medical history of cardiomyopathy (EF 25 to 30%), A. fib, CKD, hypertension, and dementia who was brought to the ED by EMS for fever and SOB x3 days. S/p cardiac arrest Sepsis PNA VRE-ID following NSTEMI suspect type II ARF on HD-nephrology following Cardiomyopathy A. fib Hypertension GI bleed Anemia Vascular dementia Echo 03/09/2022-EF 25 to 30%. Severe global hypokinesis of left ventricle. Moderate concentric LVH. Mild diastolic dysfunction is present impaired relaxation pattern. Moderate aortic regurgitation. No pericardial effusion Echo 04/18/2022-EF 15 to 20% no LV thrombus noted on the study. Right ventricle systolic function is normal. Mild aortic regurgitation. Trace to mild tricuspid regurgitation. No pulmonic valvular regurgitation Plan: Continue Amio 200mg PO BID, aspirin, and statin Will hold GDMT due to soft BP requiring pressors. Patient not a candidate for anticoagulation due to anemia with positive occult blood Echo results noted above Following conversation with family yesterday and discussion with staff today decisions has been made for patient to be on Hospice care Will see patient as needed Patient seen in conjunction with Dr. Anaya who agrees with this plan of care - Patient Problems (1) Sepsis Current Visit: Yes Status: Acute (2) MARIE (acute kidney injury) Current Visit: No Status: Acute (3) Anemia Current Visit: Yes Status: Acute (4) CKD (chronic kidney disease) Current Visit: No Status: Acute (5) Cardiomyopathy Current Visit: Yes Status: Chronic (6) Elevated troponin Current Visit: No Status: Acute (7) PNA (pneumonia) Current Visit: Yes Status: Acute Qualifiers: Pneumonia type: aspiration pneumonia (8) Vascular dementia Current Visit: Yes Status: Chronic Qualifiers: Dementia behavioral disturbance: with behavioral disturbance Qualified Code(s): F01.51 - Vascular dementia with behavioral disturbance Subjective Date of service: 04/21/22 Principal diagnosis: anemia Interval history: Patient remains intubated Patient sinus 80s with PVCs on monitor Objective Vital Signs Temp Pulse Pulse Pulse Resp Resp BP 04/21/22 10:44 79 04/21/22 10:30 80 22 100/57 04/21/22 10:15 82 23 99/59 04/21/22 10:00 102 H 23 99/59 04/21/22 09:45 84 20 95/59 04/21/22 09:30 82 21 93/56 04/21/22 09:15 82 19 98/57 04/21/22 09:00 82 18 96/58 04/21/22 08:46 81 23 98/58 04/21/22 08:30 85 28 H 94/58 04/21/22 08:16 85 21 98/61 04/21/22 08:01 87 28 H 98/61 04/21/22 07:59 97.5 F L 04/21/22 07:57 84 14 04/21/22 07:52 83 88 22 94/57 04/21/22 07:45 90 22 94/57 04/21/22 07:30 83 22 92/58 04/21/22 07:15 83 23 96/55 04/21/22 07:00 83 27 H 94/54 04/21/22 06:46 82 18 94/54 04/21/22 06:30 90 16 101/64 04/21/22 06:15 90 22 99/64 04/21/22 06:00 91 H 30 H 112/69 04/21/22 05:45 80 20 85/50 04/21/22 05:30 79 17 96/51 04/21/22 05:15 84 13 99/56 04/21/22 05:00 85 17 93/57 04/21/22 04:45 82 16 90/52 04/21/22 04:30 81 19 96/57 04/21/22 04:15 82 19 90/55 04/21/22 04:14 81 18 04/21/22 04:00 97.7 F 80 80 22 90/54 04/21/22 03:45 83 14 91/53 04/21/22 03:42 81 4 L 90/54 04/21/22 03:30 80 17 87/54 04/21/22 03:15 84 20 82/55 04/21/22 03:00 80 18 93/55 04/21/22 02:45 80 19 90/52 04/21/22 02:30 81 27 H 94/55 04/21/22 02:15 79 19 93/52 04/21/22 02:00 81 26 H 95/53 04/21/22 01:45 82 17 92/53 09/15/22 01:30 81 24 81/55 09/15/22 01:15 86 9 L 89/53 04/21/22 01:00 82 19 89/53 04/21/22 00:45 82 18 86/53 04/21/22 00:30 82 18 91/53 04/21/22 00:15 83 22 88/55 04/21/22 00:13 84 24 04/21/22 00:00 97.5 F L 85 80 14 94/57 04/20/22 23:45 84 20 91/54 04/20/22 23:30 82 16 95/55 04/20/22 23:15 85 11 L 99/57 04/20/22 23:00 85 15 97/57 04/20/22 22:45 83 16 95/59 04/20/22 22:30 86 16 99/58 04/20/22 22:15 91 H 15 100/62 04/20/22 22:01 88 16 91/62 04/20/22 22:00 80 14 91/62 04/20/22 21:46 80 13 93/60 04/20/22 21:45 81 16 88/55 04/20/22 21:31 86 13 93/60 04/20/22 21:30 88 14 93/60 04/20/22 21:15 86 14 93/57 04/20/22 21:01 87 11 L 95/59 04/20/22 20:45 79 14 88/55 04/20/22 20:30 82 14 91/58 04/20/22 20:15 83 14 92/59 04/20/22 20:00 97.4 F L 85 78 83 14 16 95/55 04/20/22 19:48 77 6 L 86/83 04/20/22 19:45 77 15 86/53 04/20/22 19:30 79 12 92/59 04/20/22 19:15 80 14 91/57 04/20/22 19:00 80 15 84/52 04/20/22 18:45 84 13 80/53 04/20/22 18:30 80 14 81/50 04/20/22 18:15 83 15 87/60 04/20/22 18:02 77 04/20/22 18:00 80 14 88/55 04/20/22 17:45 80 16 93/58 04/20/22 17:30 81 16 93/56 04/20/22 17:15 80 13 89/54 04/20/22 17:00 80 15 86/53 04/20/22 16:45 81 14 91/55 04/20/22 16:30 80 14 91/55 04/20/22 16:15 91 H 29 H 104/71 04/20/22 16:00 97.5 F L 78 77 12 103/62 04/20/22 15:50 77 80 16 102/62 04/20/22 15:45 75 12 106/66 04/20/22 15:30 76 11 L 106/64 04/20/22 15:15 79 12 102/62 04/20/22 15:00 74 14 103/63 04/20/22 14:45 73 12 100/59 04/20/22 14:30 73 14 98/61 04/20/22 14:20 70 04/20/22 14:15 69 13 86/65 04/20/22 14:00 88 12 97/70 04/20/22 13:45 70 10 L 91/58 04/20/22 13:30 69 13 85/57 04/20/22 13:15 73 11 L 85/56 04/20/22 13:00 71 13 86/57 04/20/22 12:45 71 13 91/60 04/20/22 12:30 73 16 91/57 04/20/22 12:23 82 12 04/20/22 12:20 97.7 F 04/20/22 12:15 80 10 L 97/64 04/20/22 12:01 80 17 94/64 04/20/22 11:50 130 H 128 H 18 95/68 04/20/22 11:45 112 H 11 L 98/66 04/20/22 11:30 99 H 14 89/63 04/20/22 11:15 99 H 10 L 85/53 Pulse Ox 04/21/22 10:44 04/21/22 10:30 99 04/21/22 10:15 99 04/21/22 10:00 99 04/21/22 09:45 99 04/21/22 09:30 97 04/21/22 09:15 100 04/21/22 09:00 100 04/21/22 08:46 100 04/21/22 08:30 100 09/15/22 08:16 100 04/21/22 08:01 99 04/21/22 07:59 04/21/22 07:57 100 04/21/22 07:52 100 04/21/22 07:45 99 04/21/22 07:30 99 04/21/22 07:15 98 04/21/22 07:00 96 04/21/22 06:46 100 04/21/22 06:30 98 04/21/22 06:15 100 04/21/22 06:00 99 04/21/22 05:45 100 04/21/22 05:30 100 04/21/22 05:15 100 04/21/22 05:00 94 04/21/22 04:45 100 04/21/22 04:30 93 04/21/22 04:15 100 04/21/22 04:14 04/21/22 04:00 100 04/21/22 03:45 97 04/21/22 03:42 100 04/21/22 03:30 100 04/21/22 03:15 100 04/21/22 03:00 100 04/21/22 02:45 100 04/21/22 02:30 100 04/21/22 02:15 100 04/21/22 02:00 100 04/21/22 01:45 100 04/21/22 01:30 99 04/21/22 01:15 100 04/21/22 01:00 100 04/21/22 00:45 100 04/21/22 00:30 100 04/21/22 00:15 100 04/21/22 00:13 04/21/22 00:00 100 04/20/22 23:45 100 04/20/22 23:30 100 04/20/22 23:15 100 04/20/22 23:00 100 04/20/22 22:45 100 04/20/22 22:30 100 04/20/22 22:15 99 04/20/22 22:01 100 04/20/22 22:00 99 04/20/22 21:46 100 04/20/22 21:45 99 04/20/22 21:31 100 04/20/22 21:30 100 04/20/22 21:15 100 04/20/22 21:01 100 04/20/22 20:45 04/20/22 20:30 04/20/22 20:15 04/20/22 20:00 04/20/22 19:48 04/20/22 19:45 04/20/22 19:30 04/20/22 19:15 04/20/22 19:00 04/20/22 18:45 04/20/22 18:30 99 04/20/22 18:15 04/20/22 18:02 04/20/22 18:00 04/20/22 17:45 04/20/22 17:30 99 04/20/22 17:15 100 04/20/22 17:00 04/20/22 16:45 04/20/22 16:30 04/20/22 16:15 81 L 04/20/22 16:00 04/20/22 15:50 04/20/22 15:45 04/20/22 15:30 04/20/22 15:15 04/20/22 15:00 04/20/22 14:45 04/20/22 14:30 04/20/22 14:20 04/20/22 14:15 100 04/20/22 14:00 97 04/20/22 13:45 04/20/22 13:30 04/20/22 13:15 04/20/22 13:00 04/20/22 12:45 04/20/22 12:30 04/20/22 12:23 04/20/22 12:20 04/20/22 12:15 04/20/22 12:01 04/20/22 11:50 04/20/22 11:45 04/20/22 11:30 04/20/22 11:15 100 - Physical Examination General: Other (Intubated) HEENT: Positive: Mucus Membranes Dry Neck: Positive: neck supple, trachea midline Cardiac: Positive: Reg Rate and Rhythm Lungs: Positive: Ventilated Respirations Neuro: Positive: Other (Unable to assess) Abdomen: Positive: Soft, Active Bowel Sounds. Negative: Tender Skin: Negative: Rash Musculoskeletal: No Fluid Collection Extremities: Present: upper extr. pulses, edema (Upper right extra) - Labs and Meds CBC 04/20/22 04/21/22 Range/Units 10:40 04:00 WBC 3.1 L 2.2 L (4.5-11.0) K/mm3 RBC 2.44 L 2.57 L (3.65-5.03) M/mm3 Hgb 6.7 L 6.8 L (11.8-15.2) gm/dl Hct 20.3 L D 21.5 L (35.5-45.6) % Plt Count 28 L 19 L* (140-440) K/mm3 Comprehensive Metabolic Panel 04/21/22 Range/Units 04:00 Sodium 143 (137-145) mmol/L Potassium 4.4 D (3.6-5.0) mmol/L Chloride 101.6 (98-107) mmol/L Carbon Dioxide 20 L (22-30) mmol/L BUN 108 H (9-20) mg/dL Creatinine 8.4 H (0.8-1.3) mg/dL Glucose 106 H (75-100) mg/dL Calcium 7.2 L (8.4-10.2) mg/dL - Imaging and Cardiology Echo: report reviewed - Telemetry EKG Rhythm: Sinus Rhythm - EKG Sinus rhythms and dysrhythmias: sinus rhythm Chamber hypertrophy or enlargement: left ventricular hypertro
[2022-04-21] MEDS: ASPIRIN 81 MG TAB CHEW PO SCH (11:26)
--- NOTE | 2022-04-21 12:16 | Progress Note ---
Assessment and Plan Cultures: COVID-19 PCR: Negative 03/31/2022 blood culture: No growth 04/01/2022 urine culture: VRE - Enterococcus faecium 04/08/2022 COVID-19 PCR: Negative 04/10/2022 blood culture: No growth so far 04/10/2022 urine culture: Kzizy albicans 04/18/2022 blood culture: no growth so far 04/18/2022 respiratory culture: In process A/P: 67-year-old male with CAD, CKD, atrial fibrillation, vascular dementia was admitted to the hospital on 03/31/2022 with fever and shortness of breath: #Septic shock: ?also component of cardiogenic shock. LVEF 15 to 20%. #Recurrent aspiration pneumonia and mucous plugging, chest x-ray and CT scan on review showed complete whiteout of left lung. s/p multiple rounds of abx. #Acute hypoxic respiratory failure: on the vent. #MARIE on CKD: Nephrology on board, initiated on HD. 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 Unclear indication. Patient does not know the indication. ?Rheumatoid arthritis #Leukopenia, thrombocytopenia: methotrexate on hold. #VRE UTI: Asymptomatic bacteriuria, UA without any significant pyuria reflect colonization. #Acute encephalopathy: with underlying dementia. Recs: -overall poor prognosis, noted withdrawal of care, agree. Agree with stopping abx Will sign off. Juanis Greco MD, FACPANGELINA [facility] O: [phone] F: [phone] C: [phone] Subjective Date of service: 04/21/22 Principal diagnosis: anemia Interval history: No fever. Planned for withdrawal of care. Objective - Exam Narrative Exam: Physical Exam: Constitutional: intubated, on the vent Head, Ears, Nose: Normocephalic, atraumatic. External ears, nose normal Eyes: Conjunctivae/corneas clear. No icterus. No ptosis. Neck: intubated Oral: intubated Cardiovascular: S1, S2 + Respiratory: AE fair bilaterally GI: Soft, bowel sounds + Musculoskeletal: No pedal edema, no cyanosis. Skin: No rash or abscess Hem/Lymphatic: No palpable cervical or supraclavicular nodes. No lymphangitis Psych: no agitation Neurological: intubated, on the vent, exam limited - Constitutional Vitals: Vital Signs Temp Pulse Resp BP Pulse Ox 97.5 F L 86 21 99/54 100 04/21/22 07:59 04/21/22 12:00 04/21/22 12:00 04/21/22 12:00 04/21/22 12:00 Temperature -Last 24 Hours Temperature 97.5 F Temperature 97.7 F Temperature 97.5 F Temperature 97.4 F Temperature 97.5 F Temperature 97.7 F - Labs CBC & Chem 7: 04/21/22 04:00 04/21/22 04:00 Labs: Abnormal lab results 04/20/22 04/21/22 04/21/22 Range/Units 16:38 03:42 04:00 WBC 2.2 L (4.5-11.0) K/mm3 RBC 2.57 L (3.65-5.03) M/mm3 Hgb 6.8 L (11.8-15.2) gm/dl Hct 21.5 L (35.5-45.6) % MCH 27 L (28-32) pg RDW 21.4 H (13.2-15.2) % Plt Count 19 L* (140-440) K/mm3 ABG pO2 168.4 H (80.0-90.0) mm Hg ABG O2 Saturation 99.1 H (95.0-99.0) % ABG Base Excess -3.4 L (-2.0-3.0) mmol/L ABG Hemoglobin 7.0 L (14.0-18.0) gm/dl Carbon Dioxide (22-30) mmol/L BUN (9-20) mg/dL Creatinine (0.8-1.3) mg/dL Glucose (75-100) mg/dL POC Glucose 106 H (70-105) mg/dL Calcium (8.4-10.2) mg/dL Phosphorus (2.5-4.5) mg/dL 04/21/22 Range/Units 04:00 WBC (4.5-11.0) K/mm3 RBC (3.65-5.03) M/mm3 Hgb (11.8-15.2) gm/dl Hct (35.5-45.6) % MCH (28-32) pg RDW (13.2-15.2) % Plt Count (140-440) K/mm3 ABG pO2 (80.0-90.0) mm Hg ABG O2 Saturation (95.0-99.0) % ABG Base Excess (-2.0-3.0) mmol/L ABG Hemoglobin (14.0-18.0) gm/dl Carbon Dioxide 20 L (22-30) mmol/L BUN 108 H (9-20) mg/dL Creatinine 8.4 H (0.8-1.3) mg/dL Glucose 106 H (75-100) mg/dL POC Glucose (70-105) mg/dL Calcium 7.2 L (8.4-10.2) mg/dL Phosphorus 5.80 H (2.5-4.5) mg/dL
[2022-04-21] MEDS ORDERED: LORazepam 2 MG/ML VIAL IV SCH (13:00)
[2022-04-21] MEDS ORDERED: fentaNYL 100 MCG/2 ML INJ IV SCH (13:00)
[2022-04-21] MEDS ORDERED: LORazepam 2 MG/ML VIAL IV PRN (15:01)
--- NOTE | 2022-04-21 15:09 | Progress Note ---
<ANTONIO PENNY - Last Filed: 04/21/22 15:04> Assessment and Plan Assessment and plan: This is a 67-year-old male with known past medical history of CAD, CKD, atrial fibrillation, BPH, gastric bypass, renal insufficency, HTN, thoracic aortic aneurysm without rupture, nicotine dependence, benign lungs nodules s/p LDCT, R A, and debility initially admitted to floor for Afib with RVR, acute on CKD requiring HD, and sepsis secondary to aspiration PNA and VRE UTI. Patient was a code Met and transferred to ICU on 04/19 due acute hypoxic respiratory failure requiring ventilatory support. While in the ICU patient PEA arrested treated per ACLS protocol, ROSC achieved after 3 minutes. ICU Course to Date: 04/19: Sedation initiated overnight due to increase agitation. Remains on the vent and sedated. Open eyes spontaneously but does not tract, does not follow commands. Pupils are irregular, Left pupil is blown and nonreactive, right pupil is pinpoint and sluggish. Repeat CT head pending. Patient is s/p 4units of PRBCs due to low H&H, no s/s of any active bleeding. H&H stable this am, down to 2 pressors today. SR with frequent PVCs noted on the monitor. 2D echo pending and cardiology reconsulted. Pantocytopenic this am, repeat cultures pending, continue current IV abx per ID. Continue to trend CBC. Continue HD per Nephrology. Patient is a AND/DNR status, patient's family wants to give patient another 24hrs to 48hrs before making a decision for possible inpatient hospice vs withdrawal of care. 04/20: Patient's condition is unchanged. Patient is in Afib this am, HR in the 90-110s, remains on low dose Levophed gtt this am, Midodrine added TID. Plan to wean off pressors. D/w Cardio repeat echo shows worsen of LVEF to 15% to 20%. Cardio recommended comfort/hospice care at this time since there is not much they can offer at this time, Cardio to contact patient's family to notify them of ECHO result and recommendation. Case management will also follow up with patient's brother to see if they family had made a desicion of GOC for patient. Patient remains pantocytopenic with dropped in H&H this am, no s/s of any active bleeding. Will continue to monitor for now, pending family's decision. 04/21: Patient's family opted for withdrawal of care. All paperworks were signed, witnessed, and placed in the chart. Patient was extubated per withdrawal of care protocol. Continue current comfort measures. Assessment and plan: #S/p PEA Arrest with ROSC #Paroxysmal Atrial Fibrillation #Congestive Heart Failure with reduced EF- 25 to 30% #Non-ST elevation MA (type II) - Blayne down and PEA arrested in the ICU after transfer, most likely Cardi opulmonary arrest - PEA arrest treated per ACLS protocol, ROSC achieved after 3 minutes - required multiple pressors post code- Dopamine, Epi, levo, vaso, and Alejandro - Cardiology consulted, appreciate recommendations - elevated Troponin, most likely demand ischemia - In AFIB, HR in the 90-110s this am, - Last from 03/2022 Echo reviewed- LVEF 25 to 30%. repeat Echo this admit shows worsen LVEF to 15% to 20% - Cardio recommended comfort/hospice care at this time - Currently on comfort care - PRN Vital signs or per family's request #Acute Hypoxic Respiratory Failure #Mucous Plugging with Atelectasis of Left Lung #Bilateral Pleural Effusion #Chronic Aspiration #Hospital-Acquired Pneumonia - With recurrent aspiration pneumonia, complete multiple course of IV antibiotic - Worsen hypoxia and complete opacity of left lung on 04/18 s/p intubation during code met, then bronchoscopy in the ICU - S/p extubation per withdrawal of care protocol - On 2L NC for comfort - Continue current comfort measures - PRN Vital signs or per family's request #Severe Sepsis #VRE Urinary Tract Infection(UTI) (POA) #Nonspecific Colitis #Hospital-acquired pneumonia #Chronic aspiration risk - Completed a IV abx course for PNA and VRE UTI - Patient with persistent aspiration and develop HAP and was placed back on IV abx - Recent imagings revealed right lower lobe atelectasis and completed opacities of Left lung. CT abs/pelvis also suggested nonspecific colitis - Now with pantocytopenia, required pressros - Initial B.cultures negative, UA +VRE, repeat blood cultures and sputum culture pending - S/p IV Abx- Zosyn - Now in comfort care #Acute Metabolic Encephalopathy - Multifactorial, probably secondary to above - S/p PEA arrest now intubated and sedated, on fentanyl gtt - Patient open eyes spontaneously but does not tract, does not follow commands. Pupils are irregular, Left pupil is blown and nonreactive, right pupil is pinpoint and sluggish. - Continue comfort care measures - PRN Morphine and Ativan #MARIE on chronic kidney disease stage III, now on HD #Hyperkalemia-resolved - Nephrology on consult, appreciated recommendation - iHD initiated this admit on 04/13/2022 - Righ chest Permacath inserted by Vascular Surgery #Microcytic Anemia #Chronic lower GI bleed - Initially presented with anemia, c/f possible GIB - GI was consulted and recommend colonoscopy - Colonoscopy was initially planned, however patient unable to undergo colonoscopy due to incomplete bowel prep then with worsening metabolic encephalopathy. 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 They acknowledged understanding and agreed with current care plan. Patient's siblings opted for AND/DNR status. - Patient's family opted for withdrawal of care. - Consider inpatient hospice if patient does not pass in the next 24hrs The high probability of a clinically significant, sudden or life threatening deterioration of the [multiple] system(s) required my full and direct attention, intervention and personal management. The aggregate critical care time was [30] minutes. This time is in addition to time spent performing reported procedures but includes the following: [x] Data Review and interpretation [x] Patient assessment and monitoring of vital signs [x] Documentation [x] Medication orders and management Disposition Plan: ICU Total Time Spent with Patient (Minutes): 30 History Interval history: GHAZAL overnight. s/p extubation per withdrawal of care protocol per family's decision. Hospitalist Physical - Constitutional Vitals: Temp Pulse Resp BP Pulse Ox 97.5 F L 89 14 101/58 99 04/21/22 07:59 04/21/22 14:30 04/21/22 14:30 04/21/22 14:30 04/21/22 14:30 General appearance: Present: no acute distress, well-nourished, other (Unresponsive) - EENT Eyes: Present: irregular pupil - Respiratory Respiratory effort: normal Respiratory: bilateral: rhonchi - Cardiovascular Rhythm: regular Heart Sounds: Present: S1 & S2 - Extremities Extremities: no ischemia, pulses intact, pulses symmetrical Peripheral Pulses: within normal limits - Abdominal General gastrointestinal: soft, non-distended, normal bowel sounds - Integumentary Integumentary: Present: warm, dry - Psychiatric Psychiatric: other (Unresponsive) - Neurologic Neurologic: other (Unresponsive) - Allied Health Allied health notes reviewed: nursing, case management HEART Score - HEART Score Troponin: Troponin T 0.322 ng/mL (0.00-0.029) H* 04/18/22 Unknown Results - Labs CBC & Chem 7: 04/21/22 04:00 04/21/22 04:00 Labs: Laboratory Last Values WBC 2.2 K/mm3 (4.5-11.0) L 04/21/22 04:00 RBC 2.57 M/mm3 (3.65-5.03) L 04/21/22 04:00 Hgb 6.8 gm/dl (11.8-15.2) L 04/21/22 04:00 Hct 21.5 % (35.5-45.6) L 04/21/22 04:00 MCV 84 fl (84-94) 04/21/22 04:00 MCH 27 pg (28-32) L 04/21/22 04:00 MCHC 32 % (32-34) 04/21/22 04:00 RDW 21.4 % (13.2-15.2) H 04/21/22 04:00 Plt Count 19 K/mm3 (140-440) L* 04/21/22 04:00 Lymph % (Auto) 10.2 % (13.4-35.0) L 04/18/22 04:24 [place] % (Auto) 1.0 % (0.0-7.3) 04/18/22 04:24 Eos % (Auto) 1.9 % (0.0-4.3) 04/18/22 04:24 Baso % (Auto) 0.4 % (0.0-1.8) 04/18/22 04:24 Lymph # (Auto) 0.5 K/mm3 (1.2-5.4) L 04/18/22 04:24 [place] # (Auto) 0.1 K/mm3 (0.0-0.8) 04/18/22 04:24 Eos # (Auto) 0.1 K/mm3 (0.0-0.4) 04/18/22 04:24 Baso # (Auto) 0.0 K/mm3 (0.0-0.1) 04/18/22 04:24 Add Manual Diff Complete 04/18/22 23:20 Total Counted 50 04/18/22 23:20 Seg Neutrophils % 86.5 % (40.0-70.0) H 04/18/22 04:24 Seg Neuts % (Manual) 32.0 % (40.0-70.0) L 04/18/22 23:20 Band Neutrophils % 2.0 % 04/18/22 23:20 Lymphocytes % (Manual) 64.0 % (13.4-35.0) H 04/18/22 23:20 Reactive Lymphs % (Man) 0 % 04/18/22 23:20 Monocytes % (Manual) 2.0 % (0.0-7.3) 04/18/22 23:20 Eosinophils % (Manual) 0 % (0.0-4.3) 04/18/22 23:20 Basophils % (Manual) 0 % (0.0-1.8) 04/18/22 23:20 Metamyelocytes % 0 % 04/18/22 23:20 Myelocytes % 0 % 04/18/22 23:20 Promyelocytes % 0 % 04/18/22 23:20 Blast Cells % 0 % 04/18/22 23:20 Nucleated RBC % Not Reportable 04/18/22 23:20 Seg Neutrophils # 4.4 K/mm3 (1.8-7.7) 04/18/22 04:24 Seg Neutrophils # Man 0.6 K/mm3 (1.8-7.7) L 04/18/22 23:20 Band Neutrophils # 0.0 K/mm3 04/18/22 23:20 Lymphocytes # (Manual) 1.2 K/mm3 (1.2-5.4) 04/18/22 23:20 Abs React Lymphs (Man) 0.0 K/mm3 04/18/22 23:20 Monocytes # (Manual) 0.0 K/mm3 (0.0-0.8) 04/18/22 23:20 Eosinophils # (Manual) 0.0 K/mm3 (0.0-0.4) 04/18/22 23:20 Basophils # (Manual) 0.0 K/mm3 (0.0-0.1) 04/18/22 23:20 Metamyelocytes # 0.0 K/mm3 04/18/22 23:20 Myelocytes # 0.0 K/mm3 04/18/22 23:20 Promyelocytes # 0.0 K/mm3 04/18/22 23:20 Blast Cells # 0.0 K/mm3 04/18/22 23:20 WBC Morphology Not Reportable 04/18/22 23:20 Hypersegmented Neuts Not Reportable 04/18/22 23:20 Hyposegmented Neuts Not Reportable 04/18/22 23:20 Hypogranular Neuts Not Reportable 04/18/22 23:20 Smudge Cells Not Reportable 04/18/22 23:20 Toxic Granulation Not Reportable 04/18/22 23:20 Toxic Vacuolation Not Reportable 04/18/22 23:20 Dohle Bodies Not Reportable 04/18/22 23:20 Pelger-Huet Anomaly Not Reportable 04/18/22 23:20 Marylin Rods Not Reportable 04/18/22 23:20 Platelet Estimate Consistent w auto 04/18/22 23:20 Clumped Platelets Not Reportable 04/18/22 23:20 Plt Clumps, EDTA Not Reportable 04/18/22 23:20 Large Platelets Not Reportable 04/18/22 23:20 Giant Platelets Not Reportable 04/18/22 23:20 Platelet Satelliting Not Reportable 04/18/22 23:20 Plt Morphology Comment Not Reportable 04/18/22 23:20 RBC Morphology Not Reportable 04/18/22 23:20 Dimorphic RBCs Not Reportable 04/18/22 23:20 Polychromasia Not Reportable 04/18/22 23:20 Hypochromasia Not Reportable 04/18/22 23:20 Poikilocytosis Not Reportable 04/18/22 23:20 Anisocytosis 1+ 04/18/22 23:20 Microcytosis Not Reportable 04/18/22 23:20 Macrocytosis Not Reportable 04/18/22 23:20 Spherocytes Not Reportable 04/18/22 23:20 Pappenheimer Bodies Not Reportable 04/18/22 23:20 Sickle Cells Not Reportable 04/18/22 23:20 Target Cells Not Reportable 04/18/22 23:20 Tear Drop Cells Not Reportable 04/18/22 23:20 Ovalocytes Not Reportable 04/18/22 23:20 Helmet Cells Not Reportable 04/18/22 23:20 [place] Bodies Not Reportable 04/18/22 23:20 [place] Rings Not Reportable 04/18/22 23:20 [place] Cells Not Reportable 04/18/22 23:20 Bite Cells Not Reportable 04/18/22 23:20 Crenated Cell Not Reportable 04/18/22 23:20 Elliptocytes Not Reportable 04/18/22 23:20 Acanthocytes (Spur) Not Reportable 04/18/22 23:20 Rouleaux Not Reportable 04/18/22 23:20 Hemoglobin C Crystals Not Reportable 04/18/22 23:20 Schistocytes Not Reportable 04/18/22 23:20 Malaria parasites Not Reportable 04/18/22 23:20 Cristino Bodies Not Reportable 04/18/22 23:20 Hem Pathologist Commnt No 04/18/22 23:20 ABG pH 7.441 pH Units (7.350-7.450) 04/21/22 03:42 ABG pCO2 30.6 mm Hg 04/21/22 03:42 ABG pO2 168.4 mm Hg (80.0-90.0) H 04/21/22 03:42 ABG HCO3 20.3 mmol/L (20.0-26.0) 04/21/22 03:42 ABG O2 Saturation 99.1 % (95.0-99.0) H 04/21/22 03:42 ABG O2 Content 10.0 (0.0-44) 04/21/22 03:42 ABG Base Excess -3.4 mmol/L (-2.0-3.0) L 04/21/22 03:42 ABG Hemoglobin 7.0 gm/dl (14.0-18.0) L 04/21/22 03:42 ABG Carboxyhemoglobin 1.0 % (0.0-5.0) 04/21/22 03:42 ABG Methemoglobin 0.6 % (0.0-1.5) 04/21/22 03:42 Oxyhemoglobin 97.6 % (95.0-99.0) 04/21/22 03:42 FiO2 40 % 04/21/22 03:42 Sodium 143 mmol/L (137-145) 04/21/22 04:00 Potassium 4.4 mmol/L (3.6-5.0) D 04/21/22 04:00 Chloride 101.6 mmol/L (98-107) 04/21/22 04:00 Carbon Dioxide 20 mmol/L (22-30) L 04/21/22 04:00 Anion Gap 26 mmol/L 04/21/22 04:00 BUN 108 mg/dL (9-20) H 04/21/22 04:00 Creatinine 8.4 mg/dL (0.8-1.3) H 04/21/22 04:00 Estimated GFR 8 ml/min 04/21/22 04:00 BUN/Creatinine Ratio 13 % 04/21/22 04:00 Glucose 106 mg/dL (75-100) H 04/21/22 04:00 POC Glucose 101 mg/dL (70-105) 04/21/22 00:33 Lactic Acid 1.80 mmol/L (0.7-2.0) 04/19/22 04:24 Calcium 7.2 mg/dL (8.4-10.2) L 04/21/22 04:00 Phosphorus 5.80 mg/dL (2.5-4.5) H 04/21/22 04:00 Magnesium 2.20 mg/dL (1.7-2.3) 04/21/22 04:00 Total Bilirubin 1.10 mg/dL (0.1-1.2) 04/20/22 04:00 AST 118 units/L (5-40) H 04/20/22 04:00 ALT 67 units/L (7-56) H 04/20/22 04:00 Alkaline Phosphatase 108 units/L (35-129) 04/20/22 04:00 Total Creatine Kinase 55 units/L (55-170) 03/31/22 08:00 Troponin T 0.322 ng/mL (0.00-0.029) H* 04/18/22 Unknown NT-Pro-B Natriuret Pep 25904 pg/mL (0-900) H 03/31/22 08:00 Total Protein 6.2 g/dL (6.3-8.2) L 04/20/22 04:00 Albumin 2.0 g/dL (3.9-5) L 04/20/22 04:00 Albumin/Globulin Ratio 0.5 % 04/20/22 04:00 Triglycerides 76 mg/dL (2-149) 03/31/22 08:00 Cholesterol 109 mg/dL (50-199) 03/31/22 08:00 LDL Cholesterol Direct 55 mg/dL (50-130) 03/31/22 08:00 HDL Cholesterol 38 mg/dL (40-59) L 03/31/22 08:00 Cholesterol/HDL Ratio 2.86 % 03/31/22 08:00 Procalcitonin 0.36 ng/mL (<0.15) 03/31/22 08:00 Urine Color Yellow (Yellow) 04/10/22 17:00 Urine Turbidity Slightly cloudy (Clear) 04/10/22 17:00 Specific [place] (Man) 1.010 (1.003-1.030) 04/10/22 17:00 Ur Protein (Man) 2+ mg/dL (Negative) 04/10/22 17:00 Ur Ketones (Man) Negative (Negative) 04/10/22 17:00 Ur Nitrite (Man) Negative (Negative) 04/10/22 17:00 Ur Reducing Substances Not Reportable 04/10/22 17:00 Urine Bilirubin (Man) Negative (Negative) 04/10/22 17:00 Urine Ictotest Not Reportable 04/10/22 17:00 Leukocyte Esterase (Man) Negative (Negative) 04/10/22 17:00 Urine WBC (Auto) 2.0 /HPF (0.0-6.0) 04/10/22 17:00 Urine RBC (Auto) 4.0 /HPF (0.0-6.0) 04/10/22 17:00 Urine Bacteria (Auto) 2+ /HPF (Negative) 04/10/22 17:00 Urine RBC (Manual) 3+ (Negative) 04/10/22 17:00 Granular Casts 6 /LPF 04/01/22 05:20 RBC Casts 7 /LPF 04/01/22 05:20 Urine Yeast (Budding) 3+ /HPF 04/10/22 17:00 Urine Creatinine 82.0 mg/dL (0.1-20.0) H 04/05/22 18:16 Urine Sodium 107 mmol/L 04/05/22 18:16 Random Vancomycin 18.2 ug/mL (0-40.0) 04/06/22 05:46 SARS-CoV-2 (PCR) Negative (Negative) 04/08/22 09:45 Hepatitis A IgM Ab Non-reactive (NonReactive) 04/13/22 14:19 Hep Bs Antigen Non-reactive (Negative) 04/13/22 14:19 Hep B Core IgM Ab Non-reactive (NonReactive) 04/13/22 14:19 Hepatitis C Antibody Non-reactive (NonReactive) 04/13/22 14:19 Blood Type O POSITIVE 04/18/22 15:39 Antibody Screen Negative 04/18/22 15:39 Crossmatch See Detail 04/18/22 15:39 Microbiology: Microbiology 04/18/22 23:55 Peripheral/Venous Blood Culture - Preliminary NO GROWTH AFTER 48 HOURS 04/18/22 23:55 Peripheral/Venous Blood Culture - Preliminary NO GROWTH AFTER 48 HOURS 04/18/22 15:23 Tracheal Aspirate Sputum Culture - Preliminary [place]/IV: Voiding Method Condom Catheter Active Medications - Current Medications Current Medications: Generic Name Dose Route Start Last Admin Trade Name Freq PRN Reason Stop Dose Admin Acetaminophen 650 mg 03/31/22 13:31 04/19/22 21:47 Acetaminophen 325 Mg Tab PO 650 mg Q4H PRN Administration Pain MILD(1-3)/Fever >100.5/HILTON Dextrose 25 ml 04/15/22 00:04 Dextrose 50% In Water (25gm) 50 Ml Syringe IV Q30MIN PRN Hypoglycemia Protocol Fentanyl 50 mcg 04/18/22 19:20 04/18/22 19:46 Fentanyl 100 Mcg/2 Ml Inj IV 50 mcg Q4HR PRN Administration Pain , Severe (7-10) Fentanyl 50 mcg 04/21/22 13:00 04/21/22 12:52 Fentanyl 100 Mcg/2 Ml Inj IV 04/21/22 17:00 50 mcg ONCE@1300 FRANCESCA Administration Hydrophilic Ointment 1 applic 04/18/22 15:23 Lip Therapy Vaseline TP Q2HR PRN Dry Lips NORepinephrine/NS 8 MG-250 ML 8 mg in 250 mls @ 14.438 mls/hr 04/18/22 15:00 04/20/22 22:27 Norepinephrine/Ns 8 Mg-250 Ml (Double Conc) IV 0.02 mcg/kg/min TITRATE FRANCESCA 2.888 mls/hr Administration Protocol 0.1 MCG/KG/MIN Vasopressin 20 unit/ Sodium 101 mls @ 9.09 mls/hr 04/18/22 15:00 04/20/22 15:50 Chloride IV 0 units/min TITR FRANCESCA 0 mls/hr Titration Protocol 0.03 UNITS/MIN Phenylephrine HCl 50 mg/ 250 mls @ 11.55 mls/hr 04/18/22 15:45 04/19/22 02:36 Sodium Chloride IV 0 mcg/kg/min TITR FRANCESCA 0 mls/hr Titration Protocol 0.5 MCG/KG/MIN Fentanyl Citrate 1,000 mcg in 100 mls @ 2.5 mls/hr 04/18/22 23:45 04/20/22 15:20 Fentanyl Drip Premix IV 0 mcg/hr TITR FRANCESCA 0 mls/hr Titration Protocol 25 MCG/HR Lorazepam 2 mg 04/21/22 13:00 04/21/22 12:52 Lorazepam 2 Mg/Ml Vial IV 04/21/22 16:00 2 mg ONCE@1300 [facility] Administration Lorazepam 1 mg 04/21/22 15:01 Lorazepam 2 Mg/Ml Vial IV Q4H PRN anxiety/increase WOB Midodrine 10 mg 04/20/22 10:00 04/21/22 12:14 Midodrine 10 Mg Tab PO Not Given TID@0800,1200,1600 [facility] Morphine Sulfate 2 mg 04/21/22 15:01 Morphine 2 Mg/1 Ml Inj IV Q4H PRN mod pain or comfort measures Multi-Ingred Cream/Lotion/Oil/Oint 1 applic 04/18/22 15:23 Mineral Oil/Petrolatum, White Ophth Oint 3.5 Gm OU Q4HR PRN Dry Eye(s) Ondansetron HCl 4 mg 03/31/22 13:31 Ondansetron 4 Mg/2 Ml Inj IV Q8H PRN Nausea And Vomiting Scopolamine 1 each 04/18/22 11:00 04/18/22 11:13 Scopolamine Transdermal Patch 72 Hr TD 1 each Q72HR FRANCESCA Administration Sodium Chloride 10 ml 03/31/22 22:00 04/21/22 10:02 Sodium Chloride 0.9% 10 Ml Flush Syringe IV 10 ml BID FRANCESCA Administration Nutrition/Malnutrition Assess - Dietary Evaluation Nutrition/Malnutrition Findings: Nutrition Notes Start: 04/01/22 10:5 3 Freq: Status: Active Protocol: Document 04/15/22 12:27 SIM (Rec: 04/15/22 12:39 [facility] [id number]) Nutrition Notes Initial or Follow up Reassessment Current Diagnosis Acute Kidney Injury,Sepsis, Heart Failure,Respiratory Failure Other Pertinent Diagnosis Pneu, UTI, acute metabolic encephalopathy, anemia Current Diet TF - Nepro at 45ml/hr Labs/Tests Na 136 K 3.5 BUN 45 Cr 6.1 Pertinent Medications 40mEq KCl Height 5 ft 9 in Weight 77 kg [place] Body Weight (kg) 72.72 BMI 25.0 Weight Status Appropriate Subjective/Other Information Pt tolerating TF at goal rate. Per [employer] evaluation on 04/14, PEG tube recommended. HD initiated on 04/13. New stage 2 sacral wound and (L) posterior buttocks wound reported 04/13. Percent of energy/protein needs met: 105% energy 95% pro Burn Absent Trauma Absent #2 Nutrition Diagnosis Altered nutrition-related laboratory values Diagnosis Progress(for reassessment Continues documentation) #1 Nutrition Diagnosis Inadequate oral intake Diagnosis Progress(for reassessment Continues documentation) Is patient on ventilator? No Is Patient Ambulatory and/or Out of Bed No REE-([facility]-confined to bed) 0423.868 Calculation Used for Recommendations [facility] Additional Notes Pro needs >1.2g/kg: >92g/day Fluid needs 1-1.5L/day Nutrition Intervention Nutrition Support: Continue Nepro at 45ml/hr with 200ml water flush q4h. Kcal 1,944 Protein (gm) 87 Carbohydrates (gm) 174 Fat (gm) 104 Fluid (mL) 785 Fiber (gm) 14 Goal #1 TF tolerance Goal #2 TF to provide at least 75% energy and pro needs Follow-Up By: 04/22/22 Additional Comments F/U: stable TF, wt <ROSALIO RUSSELL - Last Filed: 04/22/22 07:39> Assessment and Plan Assessment and plan: I saw and evaluated the patient. I agree with the findings and the plan of care as documented in the Nurse Practitioner's~note, with the following corrections and additions. Hospitalist Physical - Constitutional Vitals: Temp Pulse Resp BP Pulse Ox 100.0 F H 69 20 97/57 96 04/22/22 04:18 04/22/22 06:00 04/22/22 06:50 04/22/22 04:18 04/22/22 04:18 HEART Score - HEART Score Troponin: Troponin T 0.322 ng/mL (0.00-0.029) H* 04/18/22 Unknown Results - Labs CBC & Chem 7: 04/21/22 04:00 04/21/22 04:00 Labs: Laboratory Last Values WBC 2.2 K/mm3 (4.5-11.0) L 04/21/22 04:00 RBC 2.57 M/mm3 (3.65-5.03) L 04/21/22 04:00 Hgb 6.8 gm/dl (11.8-15.2) L 04/21/22 04:00 Hct 21.5 % (35.5-45.6) L 04/21/22 04:00 MCV 84 fl (84-94) 04/21/22 04:00 MCH 27 pg (28-32) L 04/21/22 04:00 MCHC 32 % (32-34) 04/21/22 04:00 RDW 21.4 % (13.2-15.2) H 04/21/22 04:00 Plt Count 19 K/mm3 (140-440) L* 04/21/22 04:00 Lymph % (Auto) 10.2 % (13.4-35.0) L 04/18/22 04:24 [place] % (Auto) 1.0 % (0.0-7.3) 04/18/22 04:24 Eos % (Auto) 1.9 % (0.0-4.3) 04/18/22 04:24 Baso % (Auto) 0.4 % (0.0-1.8) 04/18/22 04:24 Lymph # (Auto) 0.5 K/mm3 (1.2-5.4) L 04/18/22 04:24 [place] # (Auto) 0.1 K/mm3 (0.0-0.8) 04/18/22 04:24 Eos # (Auto) 0.1 K/mm3 (0.0-0.4) 04/18/22 04:24 Baso # (Auto) 0.0 K/mm3 (0.0-0.1) 04/18/22 04:24 Add Manual Diff Complete 04/18/22 23:20 Total Counted 50 04/18/22 23:20 Seg Neutrophils % 86.5 % (40.0-70.0) H 04/18/22 04:24 Seg Neuts % (Manual) 32.0 % (40.0-70.0) L 04/18/22 23:20 Band Neutrophils % 2.0 % 04/18/22 23:20 Lymphocytes % (Manual) 64.0 % (13.4-35.0) H 04/18/22 23:20 Reactive Lymphs % (Man) 0 % 04/18/22 23:20 Monocytes % (Manual) 2.0 % (0.0-7.3) 04/18/22 23:20 Eosinophils % (Manual) 0 % (0.0-4.3) 04/18/22 23:20 Basophils % (Manual) 0 % (0.0-1.8) 04/18/22 23:20 Metamyelocytes % 0 % 04/18/22 23:20 Myelocytes % 0 % 04/18/22 23:20 Promyelocytes % 0 % 04/18/22 23:20 Blast Cells % 0 % 04/18/22 23:20 Nucleated RBC % Not Reportable 04/18/22 23:20 Seg Neutrophils # 4.4 K/mm3 (1.8-7.7) 04/18/22 04:24 Seg Neutrophils # Man 0.6 K/mm3 (1.8-7.7) L 04/18/22 23:20 Band Neutrophils # 0.0 K/mm3 04/18/22 23:20 Lymphocytes # (Manual) 1.2 K/mm3 (1.2-5.4) 04/18/22 23:20 Abs React Lymphs (Man) 0.0 K/mm3 04/18/22 23:20 Monocytes # (Manual) 0.0 K/mm3 (0.0-0.8) 04/18/22 23:20 Eosinophils # (Manual) 0.0 K/mm3 (0.0-0.4) 04/18/22 23:20 Basophils # (Manual) 0.0 K/mm3 (0.0-0.1) 04/18/22 23:20 Metamyelocytes # 0.0 K/mm3 04/18/22 23:20 Myelocytes # 0.0 K/mm3 04/18/22 23:20 Promyelocytes # 0.0 K/mm3 04/18/22 23:20 Blast Cells # 0.0 K/mm3 04/18/22 23:20 WBC Morphology Not Reportable 04/18/22 23:20 Hypersegmented Neuts Not Reportable 04/18/22 23:20 Hyposegmented Neuts Not Reportable 04/18/22 23:20 Hypogranular Neuts Not Reportable 04/18/22 23:20 Smudge Cells Not Reportable 04/18/22 23:20 Toxic Granulation Not Reportable 04/18/22 23:20 Toxic Vacuolation Not Reportable 04/18/22 23:20 Dohle Bodies Not Reportable 04/18/22 23:20 Pelger-Huet Anomaly Not Reportable 04/18/22 23:20 Marylin Rods Not Reportable 04/18/22 23:20 Platelet Estimate Consistent w auto 04/18/22 23:20 Clumped Platelets Not Reportable 04/18/22 23:20 Plt Clumps, EDTA Not Reportable 04/18/22 23:20 Large Platelets Not Reportable 04/18/22 23:20 Giant Platelets Not Reportable 04/18/22 23:20 Platelet Satelliting Not Reportable 04/18/22 23:20 Plt Morphology Comment Not Reportable 04/18/22 23:20 RBC Morphology Not Reportable 04/18/22 23:20 Dimorphic RBCs Not Reportable 04/18/22 23:20 Polychromasia Not Reportable 04/18/22 23:20 Hypochromasia Not Reportable 04/18/22 23:20 Poikilocytosis Not Reportable 04/18/22 23:20 Anisocytosis 1+ 04/18/22 23:20 Microcytosis Not Reportable 04/18/22 23:20 Macrocytosis Not Reportable 04/18/22 23:20 Spherocytes Not Reportable 04/18/22 23:20 Pappenheimer Bodies Not Reportable 04/18/22 23:20 Sickle Cells Not Reportable 04/18/22 23:20 Target Cells Not Reportable 04/18/22 23:20 Tear Drop Cells Not Reportable 04/18/22 23:20 Ovalocytes Not Reportable 04/18/22 23:20 Helmet Cells Not Reportable 04/18/22 23:20 [place] Bodies Not Reportable 04/18/22 23:20 [place] Rings Not Reportable 04/18/22 23:20 [place] Cells Not Reportable 04/18/22 23:20 Bite Cells Not Reportable 04/18/22 23:20 Crenated Cell Not Reportable 04/18/22 23:20 Elliptocytes Not Reportable 04/18/22 23:20 Acanthocytes (Spur) Not Reportable 04/18/22 23:20 Rouleaux Not Reportable 04/18/22 23:20 Hemoglobin C Crystals Not Reportable 04/18/22 23:20 Schistocytes Not Reportable 04/18/22 23:20 Malaria parasites Not Reportable 04/18/22 23:20 Cristino Bodies Not Reportable 04/18/22 23:20 Hem Pathologist Commnt No 04/18/22 23:20 ABG pH 7.441 pH Units (7.350-7.450) 04/21/22 03:42 ABG pCO2 30.6 mm Hg 04/21/22 03:42 ABG pO2 168.4 mm Hg (80.0-90.0) H 04/21/22 03:42 ABG HCO3 20.3 mmol/L (20.0-26.0) 04/21/22 03:42 ABG O2 Saturation 99.1 % (95.0-99.0) H 04/21/22 03:42 ABG O2 Content 10.0 (0.0-44) 04/21/22 03:42 ABG Base Excess -3.4 mmol/L (-2.0-3.0) L 04/21/22 03:42 ABG Hemoglobin 7.0 gm/dl (14.0-18.0) L 04/21/22 03:42 ABG Carboxyhemoglobin 1.0 % (0.0-5.0) 04/21/22 03:42 ABG Methemoglobin 0.6 % (0.0-1.5) 04/21/22 03:42 Oxyhemoglobin 97.6 % (95.0-99.0) 04/21/22 03:42 FiO2 40 % 04/21/22 03:42 Sodium 143 mmol/L (137-145) 04/21/22 04:00 Potassium 4.4 mmol/L (3.6-5.0) D 04/21/22 04:00 Chloride 101.6 mmol/L (98-107) 04/21/22 04:00 Carbon Dioxide 20 mmol/L (22-30) L 04/21/22 04:00 Anion Gap 26 mmol/L 04/21/22 04:00 BUN 108 mg/dL (9-20) H 04/21/22 04:00 Creatinine 8.4 mg/dL (0.8-1.3) H 04/21/22 04:00 Estimated GFR 8 ml/min 04/21/22 04:00 BUN/Creatinine Ratio 13 % 04/21/22 04:00 Glucose 106 mg/dL (75-100) H 04/21/22 04:00 POC Glucose 101 mg/dL (70-105) 04/21/22 00:33 Lactic Acid 1.80 mmol/L (0.7-2.0) 04/19/22 04:24 Calcium 7.2 mg/dL (8.4-10.2) L 04/21/22 04:00 Phosphorus 5.80 mg/dL (2.5-4.5) H 04/21/22 04:00 Magnesium 2.20 mg/dL (1.7-2.3) 04/21/22 04:00 Total Bilirubin 1.10 mg/dL (0.1-1.2) 04/20/22 04:00 AST 118 units/L (5-40) H 04/20/22 04:00 ALT 67 units/L (7-56) H 04/20/22 04:00 Alkaline Phosphatase 108 units/L (35-129) 04/20/22 04:00 Total Creatine Kinase 55 units/L (55-170) 03/31/22 08:00 Troponin T 0.322 ng/mL (0.00-0.029) H* 04/18/22 Unknown NT-Pro-B Natriuret Pep 80879 pg/mL (0-900) H 03/31/22 08:00 Total Protein 6.2 g/dL (6.3-8.2) L 04/20/22 04:00 Albumin 2.0 g/dL (3.9-5) L 04/20/22 04:00 Albumin/Globulin Ratio 0.5 % 04/20/22 04:00 Triglycerides 76 mg/dL (2-149) 03/31/22 08:00 Cholesterol 109 mg/dL (50-199) 03/31/22 08:00 LDL Cholesterol Direct 55 mg/dL (50-130) 03/31/22 08:00 HDL Cholesterol 38 mg/dL (40-59) L 03/31/22 08:00 Cholesterol/HDL Ratio 2.86 % 03/31/22 08:00 Procalcitonin 0.36 ng/mL (<0.15) 03/31/22 08:00 Urine Color Yellow (Yellow) 04/10/22 17:00 Urine Turbidity Slightly cloudy (Clear) 04/10/22 17:00 Specific [place] (Man) 1.010 (1.003-1.030) 04/10/22 17:00 Ur Protein (Man) 2+ mg/dL (Negative) 04/10/22 17:00 Ur Ketones (Man) Negative (Negative) 04/10/22 17:00 Ur Nitrite (Man) Negative (Negative) 04/10/22 17:00 Ur Reducing Substances Not Reportable 04/10/22 17:00 Urine Bilirubin (Man) Negative (Negative) 04/10/22 17:00 Urine Ictotest Not Reportable 04/10/22 17:00 Leukocyte Esterase (Man) Negative (Negative) 04/10/22 17:00 Urine WBC (Auto) 2.0 /HPF (0.0-6.0) 04/10/22 17:00 Urine RBC (Auto) 4.0 /HPF (0.0-6.0) 04/10/22 17:00 Urine Bacteria (Auto) 2+ /HPF (Negative) 04/10/22 17:00 Urine RBC (Manual) 3+ (Negative) 04/10/22 17:00 Granular Casts 6 /LPF 04/01/22 05:20 RBC Casts 7 /LPF 04/01/22 05:20 Urine Yeast (Budding) 3+ /HPF 04/10/22 17:00 Urine Creatinine 82.0 mg/dL (0.1-20.0) H 04/05/22 18:16 Urine Sodium 107 mmol/L 04/05/22 18:16 Random Vancomycin 18.2 ug/mL (0-40.0) 04/06/22 05:46 SARS-CoV-2 (PCR) Negative (Negative) 04/08/22 09:45 Hepatitis A IgM Ab Non-reactive (NonReactive) 04/13/22 14:19 Hep Bs Antigen Non-reactive (Negative) 04/13/22 14:19 Hep B Core IgM Ab Non-reactive (NonReactive) 04/13/22 14:19 Hepatitis C Antibody Non-reactive (NonReactive) 04/13/22 14:19 Blood Type O POSITIVE 04/18/22 15:39 Antibody Screen Negative 04/18/22 15:39 Crossmatch See Detail 04/18/22 15:39 Microbiology: Microbiology 04/18/22 23:55 Peripheral/Venous Blood Culture - Preliminary NO GROWTH AFTER 72 HOURS 04/18/22 23:55 Peripheral/Venous Blood Culture - Preliminary NO GROWTH AFTER 72 HOURS [place]te[place]/IV: Voiding Method Condom Catheter Active Medications - Current Medications Current Medications: Generic Name Dose Route Start Last Admin Trade Name Freq PRN Reason Stop Dose Admin Hydrophilic Ointment 1 applic 04/18/22 15:23 Lip Therapy Vaseline TP Q2HR PRN Dry Lips Lorazepam 1 mg 04/21/22 15:01 Lorazepam 2 Mg/Ml Vial IV Q4H PRN anxiety/increase WOB Morphine Sulfate 2 mg 04/21/22 15:01 04/22/22 06:20 Morphine 2 Mg/1 Ml Inj IV 2 mg Q4H PRN Administration mod pain or comfort measures Multi-Ingred Cream/Lotion/Oil/Oint 1 applic 04/18/22 15:23 Mineral Oil/Petrolatum, White Ophth Oint 3.5 Gm OU Q4HR PRN Dry Eye(s) Scopolamine 1 each 04/18/22 11:00 04/18/22 11:13 Scopolamine Transdermal Patch 72 Hr TD 1 each Q72HR FRANCESCA Administration Sodium Chloride 10 ml 03/31/22 22:00 04/21/22 22:26 Sodium Chloride 0.9% 10 Ml Flush Syringe IV 10 ml BID FRANCESCA Administration Nutrition/Malnutrition Assess - Dietary Evaluation Nutrition/Malnutrition Findings: Nutrition Notes Start: 04/01/22 10:53 Freq: Status: Active Protocol: Document 04/15/22 12:27 SIM (Rec: 04/15/22 12:39 SIM [email or web address]) Nutrition Notes Initial or Follow up Reassessment Current Diagnosis Acute Kidney Injury,Sepsis, Heart Failure,Respiratory Failure Other Pertinent Diagnosis Pneu, UTI, acute metabolic encephalopathy, anemia Current Diet TF - Nepro at 45ml/hr Labs/Tests Na 136 K 3.5 BUN 45 Cr 6.1 Pertinent Medications 40mEq KCl Height 5 ft 9 in Weight 77 kg Menan Body Weight (kg) 72.72 BMI 25.0 Weight Status Appropriate Subjective/Other Information Pt tolerating TF at goal rate. Per [employer] evaluation on 04/14, PEG tube recommended. HD initiated on 04/13. New stage 2 sacral wound and (L) posterior buttocks wound reported 04/13. Percent of energy/protein needs met: 105% energy 95% pro Burn Absent Trauma Absent #2 Nutrition Diagnosis Altered nutrition-related laboratory values Diagnosis Progress(for reassessment Continues documentation) #1 Nutrition Diagnosis Inadequate oral intake Diagnosis Progress(for reassessment Continues documentation) Is patient on ventilator? No Is Patient Ambulatory and/or Out of Bed No REE-([facility]-confined to bed) 2994.862 Calculation Used for Recommendations [facility] Additional Notes Pro needs >1.2g/kg: >92g/day Fluid needs 1-1.5L/day Nutrition Intervention Nutrition Support: Continue Nepro at 45ml/hr with 200ml water flush q4h. Kcal 1,944 Protein (gm) 87 Carbohydrates (gm) 174 Fat (gm) 104 Fluid (mL) 785 Fiber (gm) 14 Goal #1 TF tolerance Goal #2 TF to provide at least 75% energy and pro needs Follow-Up By: 04/22/22 Additional Comments F/U: stable TF, wt
--- NOTE | 2022-04-21 17:15 | Electrocardiograph Report ---
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
[2022-04-21] MEDS: MORPHINE 2 MG/1 ML INJ IV PRN (17:47)
[2022-04-22] MEDS: MORPHINE 2 MG/1 ML INJ IV PRN (06:20)
--- NOTE | 2022-04-22 09:55 | Progress Note ---
Assessment and Plan Assessment and plan: This is a 67-year-old male with known past medical history of CAD, CKD, atrial fibrillation, BPH, gastric bypass, renal insufficency, HTN, thoracic aortic aneurysm without rupture, nicotine dependence, benign lungs nodules s/p LDCT, RA, and debility initially admitted to floor for Afib with RVR, acute on CKD requiring HD, and sepsis secondary to aspiration PNA and VRE UTI. Patient was a code Met and transferred to ICU on 04/19 due acute hypoxic respiratory failure requiring ventilatory support. While in the ICU patient PEA arrested treated per ACLS protocol, ROSC achieved after 3 minutes. ICU Course to Date: 04/19: Sedation initiated overnight due to increase agitation. Remains on the vent and sedated. Open eyes spontaneously but does not tract, does not follow commands. Pupils are irregular, Left pupil is blown and nonreactive, right pupil is pinpoint and sluggish. Repeat CT head pending. Patient is s/p 4units of PRBCs due to low H&H, no s/s of any active bleeding. H&H stable this am, down to 2 pressors today. SR with frequent PVCs noted on the monitor. 2D echo pending and cardiology reconsulted. Pantocytopenic this am, repeat cultures pending, continue current IV abx per ID. Continue to trend CBC. Continue HD per Nephrology. Patient is a AND/DNR status, patient's family wants to give patient another 24hrs to 48hrs before making a decision for possible inpatient hospice vs withdrawal of care. 04/20: Patient's condition is unchanged. Patient is in Afib this am, HR in the 90-110s, remains on low dose Levophed gtt this am, Midodrine added TID. Plan to wean off pressors. D/w Cardio repeat echo shows worsen of LVEF to 15% to 20%. Cardio recommended comfort/hospice care at this time since there is not much they can offer at this time, Cardio to contact patient's family to notify them of ECHO result and recommendation. Case management will also follow up with patient's brother to see if they family had made a desicion of GOC for patient. Patient remains pantocytopenic with dropped in H&H this am, no s/s of any active bleeding. Will continue to monitor for now, pending family's decision. 04/21: Patient's family opted for withdrawal of care. All paperworks were signed, witnessed, and placed in the chart. Patient was extubated per withdrawal of care protocol. Continue current comfort measures. 04/22: Patient remains with comfort care after withdrawal was done yesterday. I did speak with the brother and asked that from the patient comfort standpoint to the hospice should be considered he is going to speak to the other brothers and call back. In the meantime I did speak with the nurse will add morphine to medication for dyspnea management this patient has mild increased work of breathing with crackles still unresponsive. Patient has severe thrombocytopenia and anemia at this time will not proceed with transfusion per family request. Time spent with counseling with family 35 minutes Assessment and plan: #S/p PEA Arrest with ROSC #Paroxysmal Atrial Fibrillation #Congestive Heart Failure with reduced EF- 25 to 30% #Non-ST elevation [place] (type II) - Blayne down and PEA arrested in the ICU after transfer, most likely Cardiopulmonary arrest - PEA arrest treated per ACLS protocol, ROSC achieved after 3 minutes - required multiple pressors post code- Dopamine, Epi, levo, vaso, and Alejandro - Cardiology consulted, appreciate recommendations - elevated Troponin, most likely demand ischemia - In AFIB, HR in the 90-110s this am, - Last from 03/2022 Echo reviewed- LVEF 25 to 30%. repeat Echo this admit shows worsen LVEF to 15% to 20% - Cardio recommended comfort/hospice care at this time - Currently on comfort care - PRN Vital signs or per family's request #Acute Hypoxic Respiratory Failure #Mucous Plugging with Atelectasis of Left Lung #Bilateral Pleural Effusion #Chronic Aspiration #Hospital-Acquired Pneumonia - With recurrent aspiration pneumonia, complete multiple course of IV antibiotic - Worsen hypoxia and complete opacity of left lung on 04/18 s/p intubation during code met, then bronchoscopy in the ICU - S/p extubation per withdrawal of care protocol - On 2L NC for comfort - Continue current comfort measures - PRN Vital signs or per family's request #Severe Sepsis #VRE Urinary Tract Infection(UTI) (POA) #Nonspecific Colitis #Hospital-acquired pneumonia #Chronic aspiration risk - Completed a IV abx course for PNA and VRE UTI - Patient with persistent aspiration and develop HAP and was placed back on IV abx - Recent imagings revealed right lower lobe atelectasis and completed opacities of Left lung. CT abs/pelvis also suggested nonspecific colitis - Now with pantocytopenia, required pressros - Initial B.cultures negative, UA +VRE, repeat blood cultures and sputum culture pending - S/p IV Abx- Zosyn - Now in comfort care #Acute Metabolic Encephalopathy - Multifactorial, probably secondary to above - S/p PEA arrest now intubated and sedated, on fentanyl gtt - Patient open eyes spontaneously but does not tract, does not follow commands. Pupils are irregular, Left pupil is blown and nonreactive, right pupil is pinpoint and sluggish. - Continue comfort care measures - PRN Morphine and Ativan #MARIE on chronic kidney disease stage III, now on HD #Hyperkalemia-resolved - Nephrology on consult, appreciated recommendation - iHD initiated this admit on 04/13/2022 - Righ chest Permacath inserted by Vascular Surgery #Microcytic Anemia #Thrombocytopenia #Chronic lower GI bleed - Initially presented with anemia, c/f possible GIB - GI was consulted and recommend colonoscopy - Colonoscopy was initially planned, however patient unable to undergo colonoscopy due to incomplete bowel prep then with worsening metabolic encephalopathy. 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 They acknowledged understanding and agreed with current care plan. Patient's siblings opted for AND/DNR status. - Patient's family opted for withdrawal of care. - Consider inpatient hospice if patient does not pass in the next 24hrs History Interval history: Patient seen and examined this morning still nonverbal with mild increased work of breathing with audible crackles. Hospitalist Physical - Physical exam Narrative exam: General appearance: Present: Mild to moderate distress, well-nourished, other (Unresponsive) - EENT Eyes: Present: irregular pupil - Respiratory Respiratory effort: Mild increased work of breathing with accessory Respiratory: bilateral: rhonchi - Cardiovascular Rhythm: regular Heart Sounds: Present: S1 & S2 - Extremities Extremities: no ischemia, pulses intact, pulses symmetrical Peripheral Pulses: within normal limits - Abdominal General gastrointestinal: soft, non-distended, normal bowel sounds - Integumentary Integumentary: Present: warm, right upper extremity edema - Psychiatric Psychiatric: other (Unresponsive) - Neurologic Neurologic: other (Unresponsive) - Allied Health Allied health notes reviewed: nursing, case management - Constitutional Vitals: Temp Pulse Resp BP Pulse Ox 100.0 F H 69 20 97/57 96 04/22/22 04:18 04/22/22 06:00 04/22/22 06:50 04/22/22 04:18 04/22/22 04:18 General appearance: Present: no acute distress, well-nourished, other (Unresponsive) HEART Score - HEART Score Troponin: Troponin T 0.322 ng/mL (0.00-0.029) H* 04/18/22 Unknown Results - Labs CBC & Chem 7: 04/21/22 04:00 04/21/22 04:00 Labs: Laboratory Last Values WBC 2.2 K/mm3 (4.5-11.0) L 04/21/22 04:00 RBC 2.57 M/mm3 (3.65-5.03) L 04/21/22 04:00 Hgb 6.8 gm/dl (11.8-15.2) L 04/21/22 04:00 Hct 21.5 % (35.5-45.6) L 04/21/22 04:00 MCV 84 fl (84-94) 04/21/22 04:00 MCH 27 pg (28-32) L 04/21/22 04:00 MCHC 32 % (32-34) 04/21/22 04:00 RDW 21.4 % (13.2-15.2) H 04/21/22 04:00 Plt Count 19 K/mm3 (140-440) L* 04/21/22 04:00 Lymph % (Auto) 10.2 % (13.4-35.0) L 04/18/22 04:24 [place] % (Auto) 1.0 % (0.0-7.3) 04/18/22 04:24 Eos % (Auto) 1.9 % (0.0-4.3) 04/18/22 04:24 Baso % (Auto) 0.4 % (0.0-1.8) 04/18/22 04:24 Lymph # (Auto) 0.5 K/mm3 (1.2-5.4) L 04/18/22 04:24 [place] # (Auto) 0.1 K/mm3 (0.0-0.8) 04/18/22 04:24 Eos # (Auto) 0.1 K/mm3 (0.0-0.4) 04/18/22 04:24 Baso # (Auto) 0.0 K/mm3 (0.0-0.1) 04/18/22 04:24 Add Manual Diff Complete 04/18/22 23:20 Total Counted 50 04/18/22 23:20 Seg Neutrophils % 86.5 % (40.0-70.0) H 04/18/22 04:24 Seg Neuts % (Manual) 32.0 % (40.0-70.0) L 04/18/22 23:20 Band Neutrophils % 2.0 % 04/18/22 23:20 Lymphocytes % (Manual) 64.0 % (13.4-35.0) H 04/18/22 23:20 Reactive Lymphs % (Man) 0 % 04/18/22 23:20 Monocytes % (Manual) 2.0 % (0.0-7.3) 04/18/22 23:20 Eosinophils % (Manual) 0 % (0.0-4.3) 04/18/22 23:20 Basophils % (Manual) 0 % (0.0-1.8) 04/18/22 23:20 Metamyelocytes % 0 % 04/18/22 23:20 Myelocytes % 0 % 04/18/22 23:20 Promyelocytes % 0 % 04/18/22 23:20 Blast Cells % 0 % 04/18/22 23:20 Nucleated RBC % Not Reportable 04/18/22 23:20 Seg Neutrophils # 4.4 K/mm3 (1.8-7.7) 04/18/22 04:24 Seg Neutrophils # Man 0.6 K/mm3 (1.8-7.7) L 04/18/22 23:20 Band Neutrophils # 0.0 K/mm3 04/18/22 23:20 Lymphocytes # (Manual) 1.2 K/mm3 (1.2-5.4) 04/18/22 23:20 Abs React Lymphs (Man) 0.0 K/mm3 04/18/22 23:20 Monocytes # (Manual) 0.0 K/mm3 (0.0-0.8) 04/18/22 23:20 Eosinophils # (Manual) 0.0 K/mm3 (0.0-0.4) 04/18/22 23:20 Basophils # (Manual) 0.0 K/mm3 (0.0-0.1) 04/18/22 23:20 Metamyelocytes # 0.0 K/mm3 04/18/22 23:20 Myelocytes # 0.0 K/mm3 04/18/22 23:20 Promyelocytes # 0.0 K/mm3 04/18/22 23:20 Blast Cells # 0.0 K/mm3 04/18/22 23:20 WBC Morphology Not Reportable 04/18/22 23:20 Hypersegmented Neuts Not Reportable 04/18/22 23:20 Hyposegmented Neuts Not Reportable 04/18/22 23:20 Hypogranular Neuts Not Reportable 04/18/22 23:20 Smudge Cells Not Reportable 04/18/22 23:20 Toxic Granulation Not Reportable 04/18/22 23:20 Toxic Vacuolation Not Reportable 04/18/22 23:20 Dohle Bodies Not Reportable 04/18/22 23:20 Pelger-Huet Anomaly Not Reportable 04/18/22 23:20 Marylin Rods Not Reportable 04/18/22 23:20 Platelet Estimate Consistent w auto 04/18/22 23:20 Clumped Platelets Not Reportable 04/18/22 23:20 Plt Clumps, EDTA Not Reportable 04/18/22 23:20 Large Platelets Not Reportable 04/18/22 23:20 Giant Platelets Not Reportable 04/18/22 23:20 Platelet Satelliting Not Reportable 04/18/22 23:20 Plt Morphology Comment Not Reportable 04/18/22 23:20 RBC Morphology Not Reportable 04/18/22 23:20 Dimorphic RBCs Not Reportable 04/18/22 23:20 Polychromasia Not Reportable 04/18/22 23:20 Hypochromasia Not Reportable 04/18/22 23:20 Poikilocytosis Not Reportable 04/18/22 23:20 Anisocytosis 1+ 04/18/22 23:20 Microcytosis Not Reportable 04/18/22 23:20 Macrocytosis Not Reportable 04/18/22 23:20 Spherocytes Not Reportable 04/18/22 23:20 Pappenheimer Bodies Not Reportable 04/18/22 23:20 Sickle Cells Not Reportable 04/18/22 23:20 Target Cells Not Reportable 04/18/22 23:20 Tear Drop Cells Not Reportable 04/18/22 23:20 Ovalocytes Not Reportable 04/18/22 23:20 Helmet Cells Not Reportable 04/18/22 23:20 Alvarez-Buckley Bodies Not Reportable 04/18/22 23:20 [place] Rings Not Reportable 04/18/22 23:20 [place] Cells Not Reportable 04/18/22 23:20 Bite Cells Not Reportable 04/18/22 23:20 Crenated Cell Not Reportable 04/18/22 23:20 Elliptocytes Not Reportable 04/18/22 23:20 Acanthocytes (Spur) Not Reportable 04/18/22 23:20 Rouleaux Not Reportable 04/18/22 23:20 Hemoglobin C Crystals Not Reportable 04/18/22 23:20 Schistocytes Not Reportable 04/18/22 23:20 Malaria parasites Not Reportable 04/18/22 23:20 Cristino Bodies Not Reportable 04/18/22 23:20 Hem Pathologist Commnt No 04/18/22 23:20 ABG pH 7.441 pH Units (7.350-7.450) 04/21/22 03:42 ABG pCO2 30.6 mm Hg 04/21/22 03:42 ABG pO2 168.4 mm Hg (80.0-90.0) H 04/21/22 03:42 ABG HCO3 20.3 mmol/L (20.0-26.0) 04/21/22 03:42 ABG O2 Saturation 99.1 % (95.0-99.0) H 04/21/22 03:42 ABG O2 Content 10.0 (0.0-44) 04/21/22 03:42 ABG Base Excess -3.4 mmol/L (-2.0-3.0) L 04/21/22 03:42 ABG Hemoglobin 7.0 gm/dl (14.0-18.0) L 04/21/22 03:42 ABG Carboxyhemoglobin 1.0 % (0.0-5.0) 04/21/22 03:42 ABG Methemoglobin 0.6 % (0.0-1.5) 04/21/22 03:42 Oxyhemoglobin 97.6 % (95.0-99.0) 04/21/22 03:42 FiO2 40 % 04/21/22 03:42 Sodium 143 mmol/L (137-145) 04/21/22 04:00 Potassium 4.4 mmol/L (3.6-5.0) D 04/21/22 04:00 Chloride 101.6 mmol/L (98-107) 04/21/22 04:00 Carbon Dioxide 20 mmol/L (22-30) L 04/21/22 04:00 Anion Gap 26 mmol/L 04/21/22 04:00 BUN 108 mg/dL (9-20) H 04/21/22 04:00 Creatinine 8.4 mg/dL (0.8-1.3) H 04/21/22 04:00 Estimated GFR 8 ml/min 04/21/22 04:00 BUN/Creatinine Ratio 13 % 04/21/22 04:00 Glucose 106 mg/dL (75-100) H 04/21/22 04:00 POC Glucose 57 mg/dL (70-105) L 04/22/22 06:05 Lactic Acid 1.80 mmol/L (0.7-2.0) 04/19/22 04:24 Calcium 7.2 mg/dL (8.4-10.2) L 04/21/22 04:00 Phosphorus 5.80 mg/dL (2.5-4.5) H 04/21/22 04:00 Magnesium 2.20 mg/dL (1.7-2.3) 04/21/22 04:00 Total Bilirubin 1.10 mg/dL (0.1-1.2) 04/20/22 04:00 AST 118 units/L (5-40) H 04/20/22 04:00 ALT 67 units/L (7-56) H 04/20/22 04:00 Alkaline Phosphatase 108 units/L (35-129) 04/20/22 04:00 Total Creatine Kinase 55 units/L (55-170) 03/31/22 08:00 Troponin T 0.322 ng/mL (0.00-0.029) H* 04/18/22 Unknown NT-Pro-B Natriuret Pep 08653 pg/mL (0-900) H 03/31/22 08:00 Total Protein 6.2 g/dL (6.3-8.2) L 04/20/22 04:00 Albumin 2.0 g/dL (3.9-5) L 04/20/22 04:00 Albumin/Globulin Ratio 0.5 % 04/20/22 04:00 Triglycerides 76 mg/dL (2-149) 03/31/22 08:00 Cholesterol 109 mg/dL (50-199) 03/31/22 08:00 LDL Cholesterol Direct 55 mg/dL (50-130) 03/31/22 08:00 HDL Cholesterol 38 mg/dL (40-59) L 03/31/22 08:00 Cholesterol/HDL Ratio 2.86 % 03/31/22 08:00 Procalcitonin 0.36 ng/mL (<0.15) 03/31/22 08:00 Urine Color Yellow (Yellow) 04/10/22 17:00 Urine Turbidity Slightly cloudy (Clear) 04/10/22 17:00 Specific [place] (Man) 1.010 (1.003-1.030) 04/10/22 17:00 Ur Protein (Man) 2+ mg/dL (Negative) 04/10/22 17:00 Ur Ketones (Man) Negative (Negative) 04/10/22 17:00 Ur Nitrite (Man) Negative (Negative) 04/10/22 17:00 Ur Reducing Substances Not Reportable 04/10/22 17:00 Urine Bilirubin (Man) Negative (Negative) 04/10/22 17:00 Urine Ictotest Not Reportable 04/10/22 17:00 Leukocyte Esterase (Man) Negative (Negative) 04/10/22 17:00 Urine WBC (Auto) 2.0 /HPF (0.0-6.0) 04/10/22 17:00 Urine RBC (Auto) 4.0 /HPF (0.0-6.0) 04/10/22 17:00 Urine Bacteria (Auto) 2+ /HPF (Negative) 04/10/22 17:00 Urine RBC (Manual) 3+ (Negative) 04/10/22 17:00 Granular Casts 6 /LPF 04/01/22 05:20 RBC Casts 7 /LPF 04/01/22 05:20 Urine Yeast (Budding) 3+ /HPF 04/10/22 17:00 Urine Creatinine 82.0 mg/dL (0.1-20.0) H 04/05/22 18:16 Urine Sodium 107 mmol/L 04/05/22 18:16 Random Vancomycin 18.2 ug/mL (0-40.0) 04/06/22 05:46 SARS-CoV-2 (PCR) Negative (Negative) 04/08/22 09:45 Hepatitis A IgM Ab Non-reactive (NonReactive) 04/13/22 14:19 Hep Bs Antigen Non-reactive (Negative) 04/13/22 14:19 Hep B Core IgM Ab Non-reactive (NonReactive) 04/13/22 14:19 Hepatitis C Antibody Non-reactive (NonReactive) 04/13/22 14:19 Blood Type O POSITIVE 04/18/22 15:39 Antibody Screen Negative 04/18/22 15:39 Crossmatch See Detail 04/18/22 15:39 Microbiology: Microbiology 04/18/22 23:55 Peripheral/Venous Blood Culture - Preliminary NO GROWTH AFTER 72 HOURS 04/18/22 23:55 Peripheral/Venous Blood Culture - Preliminary NO GROWTH AFTER 72 HOURS Arteaga/IV: Voiding Method Condom Catheter Active Medications - Current Medications Current Medications: Generic Name Dose Route Start Last Admin Trade Name Freq PRN Reason Stop Dose Admin Hydrophilic Ointment 1 applic 04/18/22 15:23 Lip Therapy Vaseline TP Q2HR PRN Dry Lips Lorazepam 1 mg 04/21/22 15:01 Lorazepam 2 Mg/Ml Vial IV Q4H PRN anxiety/increase WOB Morphine Sulfate 2 mg 04/21/22 15:01 04/22/22 06:20 Morphine 2 Mg/1 Ml Inj IV 2 mg Q4H PRN Administration mod pain or comfort measures Multi-Ingred Cream/Lotion/Oil/Oint 1 applic 04/18/22 15:23 Mineral Oil/Petrolatum, White Ophth Oint 3.5 Gm OU Q4HR PRN Dry Eye(s) Scopolamine 1 each 04/18/22 11:00 04/18/22 11:13 Scopolamine Transdermal Patch 72 Hr TD 1 each Q72HR FRANCESCA Administration Sodium Chloride 10 ml 03/31/22 22:00 04/22/22 09:18 Sodium Chloride 0.9% 10 Ml Flush Syringe IV 10 ml BID FRANCESCA Administration Nutrition/Malnutrition Assess - Dietary Evaluation Nutrition/Malnutrition Findings: Nutrition Notes Start: 04/01/22 10:53 Freq: Status: Active Protocol: Document 04/15/22 12:27 SIM (Rec: 04/15/22 12:39 [facility] [id number]) Nutrition Notes Initial or Follow up Reassessment Current Diagnosis Acute Kidney Injury,Sepsis, Heart Failure,Respiratory Failure Other Pertinent Diagnosis Pneu, UTI, acute metabolic encephalopathy, anemia Current Diet TF - Nepro at 45ml/hr Labs/Tests Na 136 K 3.5 BUN 45 Cr 6.1 Pertinent Medications 40mEq KCl Height 5 ft 9 in Weight 77 kg [place] Body Weight (kg) 72.72 BMI 25.0 Weight Status Appropriate Subjective/Other Information Pt tolerating TF at goal rate. Per [employer] evaluation on 04/14, PEG tube recommended. HD initiated on 04/13. New stage 2 sacral wound and (L) posterior buttocks wound reported 04/13. Percent of energy/protein needs met: 105% energy 95% pro Burn Absent Trauma Absent #2 Nutrition Diagnosis Altered nutrition-related laboratory values Diagnosis Progress(for reassessment Continues documentation) #1 Nutrition Diagnosis Inadequate oral intake Diagnosis Progress(for reassessment Continues documentation) Is patient on ventilator? No Is Patient Ambulatory and/or Out of Bed No REE-([facility]-confined to bed) 8218.862 Calculation Used for Recommendations [facility] Additional Notes Pro needs >1.2g/kg: >92g/day Fluid needs 1-1.5L/day Nutrition Intervention Nutrition Support: Continue Nepro at 45ml/hr with 200ml water flush q4h. Kcal 1,944 Protein (gm) 87 Carbohydrates (gm) 174 Fat (gm) 104 Fluid (mL) 785 Fiber (gm) 14 Goal #1 TF tolerance Goal #2 TF to provide at least 75% energy and pro needs Follow-Up By: 04/22/22 Additional Comments F/U: stable TF, wt
--- NOTE | 2022-04-22 12:15 | Death Summary ---
Summary - Providers Date of service: 04/22/22 Consults: 04/11/22 12:28 Speech Therapy Evaluation and Treat [CONS] Routine Reason For Exam: evaluate swallowing Attending: ROSALIO RUSSELL MD - summary Date of admission: 03/31/22 13:31 Date of : 04/22/22 Reason for admission: Afib with RVR, sepsis Significant findings: This is a 67-year-old male with known past medical history of CAD, CKD, atrial fibrillation, BPH, gastric bypass, renal insufficency, HTN, thoracic aortic aneurysm without rupture, nicotine dependence, benign lungs nodules s/p LDCT, RA, and debility initially admitted to floor for Afib with RVR, acute on CKD requiring HD, and sepsis secondary to aspiration PNA and VRE UTI. Patient was a code Met and transferred to ICU on 04/19 due acute hypoxic respiratory failure requiring ventilatory support. While in the ICU patient PEA arrested treated per ACLS protocol, ROSC achieved after 3 minutes. ICU Course to Date: 04/19: Sedation initiated overnight due to increase agitation. Remains on the vent and sedated. Open eyes spontaneously but does not tract, does not follow commands. Pupils are irregular, Left pupil is blown and nonreactive, right pupil is pinpoint and sluggish. Repeat CT head pending. Patient is s/p 4units of PRBCs due to low H&H, no s/s of any active bleeding. H&H stable this am, down to 2 pressors today. SR with frequent PVCs noted on the monitor. 2D echo pending and cardiology reconsulted. Pantocytopenic this am, repeat cultures pending, continue current IV abx per ID. Continue to trend CBC. Continue HD per Nephrology. Patient is a AND/DNR status, patient's family wants to give patient another 24hrs to 48hrs before making a decision for possible inpatient hospice vs withdrawal of care. 04/20: Patient's condition is unchanged. Patient is in Afib this am, HR in the 90-110s, remains on low dose Levophed gtt this am, Midodrine added TID. Plan to wean off pressors. D/w Cardio repeat echo shows worsen of LVEF to 15% to 20%. Cardio recommended comfort/hospice care at this time since there is not much they can offer at this time, Cardio to contact patient's family to notify them of ECHO result and recommendation. Case management will also follow up with patient's brother to see if they family had made a desicion of GOC for patient. Patient remains pantocytopenic with dropped in H&H this am, no s/s of any active bleeding. Will continue to monitor for now, pending family's decision. 04/21: Patient's family opted for withdrawal of care. All paperworks were signed, witnessed, and placed in the chart. Patient was extubated per withdrawal of care protocol. Continue current comfort measures. 04/22: Patient remains with comfort care after withdrawal was done yesterday. I did speak with the brother and asked that from the patient comfort standpoint to the hospice should be considered he is going to speak to the other brothers and call back. In the meantime I did speak with the nurse will add morphine to medication for dyspnea management this patient has mild increased work of breathing with crackles still unresponsive. Patient has severe thrombocytopenia and anemia at this time will not proceed with transfusion per family request. Time spent with counseling with family 35 minutes I was called to the bedside at 1205 on arrival examined the patient with spontaneous breathing was appreciated. No audible heart sound was noted. Patient was unresponsive to touch or verbal stimuli. Patient was pronounced at 1205 his brother Mr. Elizabeth Rodriguez was notified Assessment and plan: #S/p PEA Arrest with ROSC #Paroxysmal Atrial Fibrillation #Congestive Heart Failure with reduced EF- 25 to 30% #Non-ST elevation [place] (type II) #Acute Hypoxic Respiratory Failure #Mucous Plugging with Atelectasis of Left Lung #Bilateral Pleural Effusion #Chronic Aspiration #Hospital-Acquired Pneumonia #Severe Sepsis #VRE Urinary Tract Infection(UTI) (POA) #Nonspecific Colitis #Hospital-acquired pneumonia
[2022-04-22 12:20] VITALS: BP 106/58
== END 2022-04-22 12:05 | DRG 871 ==
LOC: ED 06:49 → 3A 13:31 → CC1 04-18 14:50 → 3A 04-21 18:23
PROVIDERS: ADMIT Internal Medicine; ATTEND Internal Medicine
PROC: 30233N1 Transfusion of Nonautologous Red Blood Cells into Peripheral Vein, Percutaneous Approach (ICD-10-PCS; principal; 2022-04-02)
PROC: 5A1D70Z Performance of Urinary Filtration, Intermittent, Less than 6 Hours Per Day (ICD-10-PCS; 2022-04-13)
PROC: 02HV33Z Insertion of Infusion Device into Superior Vena Cava, Percutaneous Approach (ICD-10-PCS; 2022-04-13)
PROC: B548ZZA Ultrasonography of Superior Vena Cava, Guidance (ICD-10-PCS; 2022-04-13)
PROC: 5A1D70Z Performance of Urinary Filtration, Intermittent, Less than 6 Hours Per Day (ICD-10-PCS; 2022-04-14)
PROC: 5A1D70Z Performance of Urinary Filtration, Intermittent, Less than 6 Hours Per Day (ICD-10-PCS; 2022-04-15)
PROC: 5A1945Z Respiratory Ventilation, 24-96 Consecutive Hours (ICD-10-PCS; 2022-04-18)
PROC: 0BH17EZ Insertion of Endotracheal Airway into Trachea, Via Natural or Artificial Opening (ICD-10-PCS; 2022-04-18)
PROC: 4A033R1 Measurement of Arterial Saturation, Peripheral, Percutaneous Approach (ICD-10-PCS; 2022-04-18)
PROC: 06HM33Z Insertion of Infusion Device into Right Femoral Vein, Percutaneous Approach (ICD-10-PCS; 2022-04-18)
PROC: B54BZZA Ultrasonography of Right Lower Extremity Veins, Guidance (ICD-10-PCS; 2022-04-18)
DX: A41.9 Sepsis, unspecified organism (principal); G93.41 Metabolic encephalopathy; I50.23 Acute on chronic systolic (congestive) heart failure; I21.A1 Myocardial infarction type 2; J69.0 Pneumonitis due to inhalation of food and vomit; J96.01 Acute respiratory failure with hypoxia; I13.0 Hypertensive heart and chronic kidney disease with heart failure and stage 1 through stage 4 chronic kidney disease, or unspecified chronic kidney disease; N17.9 Acute kidney failure, unspecified; I43 Cardiomyopathy in diseases classified elsewhere; I48.20 Chronic atrial fibrillation, unspecified; N39.0 Urinary tract infection, site not specified; E44.0 Moderate protein-calorie malnutrition; Z20.822 Contact with and (suspected) exposure to COVID-19; Y95 Nosocomial condition; I48.0 Paroxysmal atrial fibrillation; D64.9 Anemia, unspecified; F01.50 Vascular dementia, unspecified severity, without behavioral disturbance, psychotic disturbance, mood disturbance, and anxiety; R65.20 Severe sepsis without septic shock; I25.10 Atherosclerotic heart disease of native coronary artery without angina pectoris; N40.0 Benign prostatic hyperplasia without lower urinary tract symptoms; E78.5 Hyperlipidemia, unspecified; Z68.24 Body mass index [BMI] 24.0-24.9, adult; F17.200 Nicotine dependence, unspecified, uncomplicated; N18.30 Chronic kidney disease, stage 3 unspecified
CPT/HCPCS: 31720; 36415; 36430; 36556; 36600; 70450; 71045; 71250; 74018; 74176; 76770; 80048; 80053; 80061; 80074; 80202; 81001; 82140; 82270; 82550; 82565; 82570; 82803; 82962; 83735; 83880; 84100; 84132; 84145; 84300; 84484; 85007; 85014; 85018; 85025; 85027; 86850; 86900; 86901; 86920; 87040; 87070; 87076; 87086; 87186; 87205; 93005; 93306; 94002; 94003; 94640; 94760; 99291; G0378; J2354; J3490; Q9967; C1752; C8929; C9113; J0171; J0461; J0692; J1265; J1815; J1940; J2020; J2060; J2270; J2370; J2543; J3010; J3370; J7030; J7040; J7050; J7070; J8610; P9016; U0003